=== PATIENT | male | born 1955 | race Caucasian/White ===

== ENCOUNTER → 2020-05-23 00:15 | Outpatient (CLI) | payer MEDICARE, OTHER, SELFPAY ==
[2020-05-23 19:29] LABS: SARS-CoV-2 RNA PCR Negative
== END ==
PROVIDERS: PCP Internal Medicine; Visit Provider Plastic Surgery
DX: Z01.812 Encounter for preprocedural laboratory examination (principal); Z20.822 Contact with and (suspected) exposure to COVID-19
CPT/HCPCS: C9803; U0003; U0005

== ENCOUNTER 2020-05-26 01:44 | Day surgery (SDC) | payer MEDICARE, OTHER, SELFPAY ==
--- NOTE | 2020-05-26 07:17 | WPDHPUPDATE1 ---
History and Physical Update Update Date/Time: 05/26/20 07:17 History and Physical has been reviewed, including an updated exam of the patient. There are NO changes in the patient's condition. Risks, benefits, and alternatives have been discussed and questions answered. Patient agrees to proceed with procedure.
[2020-05-26] MEDS: LACTATED RINGERS 1,000 ML 30 ML IV CONT (09:25)
--- NOTE | 2020-05-26 09:28 | WPDANESEPPF ---
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 Patient Data Age: 64 Gender: M Height: 6 ft Weight: 67.2 kg Allergies Allergy/AdvReac Type Severity Reaction Status Date / Time No Known Allergies Allergy Verified 05/26/20 09:06 Home Medications Medication Instructions Recorded Confirmed Type aspirin [Adult Low Dose Aspirin] 81 mg PO DAILY 05/23/20 05/23/20 History cholecalciferol (vitamin D3) 125 mcg PO DAILY 05/23/20 05/23/20 History diazepam 10 mg PO QPM 05/23/20 05/23/20 History levothyroxine 25 mcg PO DAILY 05/23/20 05/23/20 History zolpidem 5 mg PO HS 05/23/20 05/23/20 History Patient hx anesthesia problems: none Family hx anesthesia problems: none PMFSH Past Medical History Medical History (Updated 05/26/20 @ 09:27 by Robbin Uribe MD) GERD (gastroesophageal reflux disease) Hypothyroid Surgical History Surgical History (Updated 05/26/20 @ 09:27 by Robbin Uribe MD) History of ear, nose, and throat (ENT) surgery Social History Social History (System 04/27/20 @ 12:48 by Mirtha Etienne) Smoking status: Never smoker Living arrangements: with family Spiritual care concerns: No Anes - Eval Final PreProcedure Day of Procedure 05/26/20 09:28 Patient weight: normal Heart: regular rate and rhythm Lungs: clear to auscultation Airway: Mallampati scale class III (hqd radiation to neck) Neurological: alert and oriented Last oral intake: >/= 8 hours ASA classification: III Emergent: no Anesthetic plan: proceed Anesthesia type and monitoring: general GIVS (may use LMA if needed) and standard monitoring Informed Consent: The patient's anesthetic plan and its attendant risks and benefits were discussed with the patient/family/POA. Questions were solicited and answers provided to the satisfaction of the patient/family/POA.
[2020-05-26 09:33] VITALS: BP 127/92; PULSE 93; TEMP 36.7; O2SAT 99
[2020-05-26] MEDS: LIDO 1%/EPINEPHRINE/PF 1:200,000 30 ML VIAL XX (10:21)
[2020-05-26] MEDS: BACITRACIN OP OINT 3.5 GM TUBE 1 APPLIC RIGHT EYE (10:22)
[2020-05-26 10:31] VITALS: BP 136/86; PULSE 76; RESP 14; O2SAT 96
--- NOTE | 2020-05-26 10:44 | PM.OP ---
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 Anesthesia: MAC Surgeon: Ashwin Porras MD Estimated blood loss (mL): 0 Drains: No Packing: No Pathology: yes Complications: No immediate complications Condition: stable Disposition: same day
--- NOTE | 2020-05-26 10:46 | PM.PROC ---
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 The patient was then taken to the operating room and placed supine on the operating table. A time-out was held and confirmed. He was given IV sedation and the face was prepped and draped in usual fashion. The site was then locally anesthetized with 1% lidocaine with epinephrine. With traction on the lower lid the lesion was excised through the full-thickness of skin crossing just to the mehta line.. The specimen was sent for permanent section. Couple of small points were cauterized with a setting of 15. The skin was closed with a running 5 0 fast-absorbing gut suture. The punctum was not directly involved in this procedure. The skin closure been the tarsal plate slightly. I believe this will resolve as the skin heals and stretches. Ophthalmic bacitracin ointment was applied the patient was awakened and discharged from the operating room stable condition. He is being discharged home with bacitracin ophthalmic ointment and a prescription for tramadol 50 mg 8. Surgeon: Ashwin Porras MD
[2020-05-26 11:01] VITALS: BP 130/87; PULSE 73; RESP 14; O2SAT 98
[2020-05-26 11:31] VITALS: BP 123/79; PULSE 79; RESP 14
[2020-05-26 11:45] VITALS: BP 132/80; PULSE 85; RESP 14
[2020-05-26] MEDS: oxyCODONE HCL (*CRX) 5 MG TAB IR PO (11:46)
== END 2020-05-26 11:55 | disposition home or self-care (01) ==
PROVIDERS: PCP Internal Medicine; Visit Provider Plastic Surgery
PROC: (CPT 11440; principal; 2020-05-26 10:30)
DX: L82.1 Other seborrheic keratosis (principal); K21.9 Gastro-esophageal reflux disease without esophagitis; E03.9 Hypothyroidism, unspecified; Z79.82 Long term (current) use of aspirin
CPT/HCPCS: 11440; 88304; A9270; J2250; J2370; J2704; J3010; J7120

== ENCOUNTER 2021-08-12 23:22 | Inpatient (IN) | payer MEDICARE, OTHER, SELFPAY ==
[2021-08-12] VITALS (7 sets, daily range): BP systolic 98–99; BP diastolic 59–60; PULSE 106–112; RESP 24–33; TEMP 39.6; O2SAT 84–91
--- NOTE | ~2021-08-12 | XR_ITS ---
EXAMINATION: XR chest 1V portable DATE: 08/25/2021 06:22 INDICATION: Respiratory failure TECHNIQUE: frontal view of the chest was obtained. COMPARISON: Chest radiograph and CT studies dated 08/24/2021 and 08/22/2021 FINDINGS: Endotracheal tube tip 7.2 cm above the doug. Left upper extremity peripherally inserted central joseline ous catheter (PICC) tip at the head superior vena cava. Diffuse increased interstitial and mild airspace opacities throughout both lungs with more dense opac ities with retrocardiac consolidation in the left lower lung zone. Small left pleural effusion with b lunting at the costophrenic angle. No pneumothorax or right-sided pleural effusion. The cardiomediast inal silhouette is normal. IMPRESSION: 1. Endotracheal tube tip 7.2 cm above the doug. Consider advancement by 5 cm. 2. Bilateral diffuse interstitial and airspace opacities which could represent pulmonary edema or pne umonia which is improved since 08/22/2021. 3. Small left pleural effusion with partial left lower lobar collapse. Reviewed, dictated and finalized at location A. IMPRESSION: 1. Endotracheal tube tip 7.2 cm above the doug. Consider advancement by 5 cm. 2. Bilateral diffuse interstitial and airspace opacities which could represent pulmonary edema or pneumonia which is improved since 08/22/2021. 3. Small left pleural effusion with partial left lower lobar collapse.
--- NOTE | ~2021-08-12 | XR_ITS ---
EXAMINATION: XR chest 1V portable DATE: 08/27/2021 05:59 INDICATION: Respiratory failure TECHNIQUE: frontal view of the chest was obtained. COMPARISON: Chest radiograph dated 08/26/2021 FINDINGS: Endotracheal tube tip 7.2 cm above the doug. Left upper extremity peripherally inserted central joseline ous catheter (PICC) tip at the mid superior vena cava. Slight improvement in the increased interstitial pattern predominantly in the lower lung zones. Hazy airspace opacity and retrocardiac consolidation at the left lower lung zone with indistinct diaphragm consistent with small left pleural effusion and associated atelectasis and/or pneumonia. The cardiom ediastinal silhouette is normal. Surgical clips at the right base of the neck. IMPRESSION: 1. Endotracheal tube tip 7.2 cm above the doug. Consider advancement by 5 cm. 2. Improving pulmonary interstitial edema now in the lower lung zones. 3. Small left pleural effusion with associated left basilar atelectasis and/or pneumonia. Reviewed, dictated and finalized at location A.
--- NOTE | ~2021-08-12 | XR_ITS ---
EXAMINATION: XR chest 1V portable INDICATION: Respiratory failure TECHNIQUE: Portable AP chest at 0934 hours COMPARISON: 0107 hours FINDINGS: Patchy opacities are now present in all lung zones,, worsened since the prior examination. No pleural effusion or pneumothorax. The cardiomediastinal silhouette is stable. Surgical clips are n oted in the neck. IMPRESSION: 1. Diffuse lung disease with interval worsening, consistent with pneumonia and/or pulmonary edema Reviewed, dictated and finalized at location A. IMPRESSION: 1. Diffuse lung disease with interval worsening, consistent with pneumonia and/ or pulmonary edema
--- NOTE | ~2021-08-12 | XR_ITS ---
XR chest 2V DATE: 09/02/2021 09:33 INDICATION: Diffuse lung crackles TECHNIQUE: AP and lateral views COMPARISON: 08/31/2021 portable AP chest FINDINGS: Prominent patchy consolidating left lower lobe infiltrate with air bronchograms. Mild patchy infiltrate in the right lower lung. Bilateral hyperinflation consistent with COPD. Heart size is within normal range. Small left pleural effusion. No pneumothorax. Surgical clips overlie the lower right and left cervical region. Osteopenia. Left upper extremity PIC catheter tip overlies the superior vena cava. IMPRESSION: Prominent patchy consolidating left lower lobe infiltrate and mild right lower lung infil trate COPD Left upper extremity PIC catheter in superior vena cava Reviewed, dictated and finalized at location A. IMPRESSION: Prominent patchy consolidating left lower lobe infiltrate and mild right lower lung infiltrate COPD Left upper extremity PIC catheter in superior vena cava
--- NOTE | ~2021-08-12 | XR_ITS ---
EXAMINATION: XR abdomen obstructive series DATE: 08/16/2021 10:52 INDICATION: Abdominal distention TECHNIQUE: Upright and supine views of the abdomen were obtained. COMPARISON: 08/13/2021 FINDINGS: The tip of the nasogastric tube is in the stomach. The proximal side port is near the gastr oesophageal junction. There is mild gaseous distention of the ascending and proximal transverse colon . Gas and stool are seen in the rectum. No free intraperitoneal gas is identified. A gastrostomy is n oted. There are diffuse opacities throughout the visualized lungs. IMPRESSION: 1. Mild gaseous distention of the ascending and transverse colon, likely ileus. 2. Tip of the nasogastric tube in the stomach with proximal side port at the gastroesophageal junctio n. Consider advancing 2 to 3 cm. 3. Diffuse lung disease, consistent with pneumonia and/or pulmonary edema. Reviewed, dictated and finalized at location A. IMPRESSION: 1. Mild gaseous distention of the ascending and transverse colon, likely ileus. 2. Tip of the nasogastric tube in the stomach with proximal side port at the ga stroesophageal junction. Consider advancing 2 to 3 cm. 3. Diffuse lung disease, consistent with pneumonia and/or pulmonary edema.
--- NOTE | ~2021-08-12 | XR_ITS ---
EXAMINATION: XR chest 1V portable DATE: 08/15/2021 06:08 INDICATION: Respiratory failure TECHNIQUE: frontal view of the chest was obtained. COMPARISON: Chest radiograph and CT dated 08/14/2021 FINDINGS: Endotracheal tube tip 5.5 cm above the doug. Nasogastric tube with proximal side-port below level of the gastroesophageal junction with distal tip collimated off the study. Persistent diffuse patchy bilateral lung disease relatively unchanged accounting for differences in p ositioning in the left lung are relatively spares the apex. On the right there appears to be some coa lescence and increased density of the consolidation in the right mid to upper lung zones. No pneumoth orax or definitive pleural effusion. Heart size is normal. IMPRESSION: 1. Extensive diffuse bilateral lung disease concerning for multifocal pneumonia with some interval pr ogression in the right mid and upper lung zones. Reviewed, dictated and finalized at location A. IMPRESSION: 1. Extensive diffuse bilateral lung disease concerning for multifocal pneumonia with some interval progression in the right mid and upper lung zones.
--- NOTE | ~2021-08-12 | XR_ITS ---
EXAMINATION: XR chest 1V portable DATE: 08/26/2021 05:53 INDICATION: Respiratory failure TECHNIQUE: frontal view of the chest was obtained. COMPARISON: Chest radiograph dated 08/25/2021 FINDINGS: Endotracheal tube tip 6.5 cm above the doug. Left upper extremity peripherally inserted central joseline ous catheter (PICC) tip at the mid superior vena cava. No significant interval change in interstitial and airspace opacities in the bilateral mid and lower lung zones. 20 of the left costophrenic angle consistent with small left pleural effusion. No pneumot horax. The cardiomediastinal silhouette is normal. IMPRESSION: 1. Diffuse interstitial and mild airspace opacities throughout the bilateral mid and lower lung zones most likely from edema although differential includes pneumonia. 2. Small left pleural effusion. Reviewed, dictated and finalized at location A. IMPRESSION: 1. Diffuse interstitial and mild airspace opacities throughout the bilateral mi d and lower lung zones most likely from edema although differential includes pn eumonia. 2. Small left pleural effusion.
--- NOTE | ~2021-08-12 | XR_ITS ---
EXAMINATION: XR chest 1V portable DATE: 08/22/2021 05:39 INDICATION: Respiratory failure. Mechanical ventilation. TECHNIQUE: frontal view of the chest was obtained. COMPARISON: Chest radiograph dated 08/21/2021 FINDINGS: Endotracheal tube tip 6.0 cm above the doug. Left upper extremity peripherally inserted central joseline ous catheter (PICC) tip at the mid superior vena cava. Diffuse increased interstitial and patchy airspace opacities throughout both lungs relatively sparing the apices. No pleural effusion or pneumothorax. The cardiomediastinal silhouette is normal. IMPRESSION: 1. Persistent diffuse bilateral interstitial and airspace opacities which could represent pulmonary e mirza and/or pulmonary edema. Reviewed, dictated and finalized at location A. IMPRESSION: 1. Persistent diffuse bilateral interstitial and airspace opacities which could represent pulmonary edema and/or pulmonary edema.
--- NOTE | ~2021-08-12 | US_ITS ---
EXAMINATION: US venous doppler [facility] DATE: 08/18/2021 11:45 INDICATION: A. Fib. Fever. TECHNIQUE: Alvarez scale images with and without compression and Doppler images of the right and left up per extremity veins were obtained. COMPARISON: None. FINDINGS: The right and left internal jugular vein, subclavian vein, axillary vein, brachial veins, basilic vei n, cephalic vein, radial vein, and ulnar vein are patent. IMPRESSION: 1. Patent bilateral upper extremity veins. No evidence of deep venous thrombosis. Reviewed, dictated and finalized at location A. IMPRESSION: 1. Patent bilateral upper extremity veins. No evidence of deep venous thrombosi s.
--- NOTE | ~2021-08-12 | XR_ITS ---
XR chest 1V portable DATE: 08/18/2021 05:51 INDICATION: Respiratory failure TECHNIQUE: Portable AP chest on 08/18/2021 at 0511 hours COMPARISON: 08/17/2021 portable AP chest at 0515 hours FINDINGS: ET tube tip is 6.5 cm above doug. [place] range is 2 5 cm. NG tube in stomach. Left upper extremity PIC catheter tip overlies superior vena cava. Extensive patchy bilateral consolidating infiltrates persist without improvement since 08/17/2021. Dif ferential diagnosis includes pneumonia as well as pulmonary edema. Prominence of the minor fissure couch ggests mild subpleural edema. Small pleural effusions. No pneumothorax. IMPRESSION: ET tube tip 6.5 cm above doug; ideal range is 2 5 cm Persistent extensive patchy bilateral consolidating infiltrates, without improvement since 08/17/2021 Reviewed, dictated and finalized at location A. IMPRESSION: ET tube tip 6.5 cm above doug; ideal range is 2 5 cm Persistent extensive patchy bilateral consolidating infiltrates, without improv ement since 08/17/2021
--- NOTE | ~2021-08-12 | CT_ITS ---
EXAMINATION: CT chest abdomen pelvis wo con DATE: 08/13/2021 12:13 INDICATION: Sepsis respiratory failure . TECHNIQUE: Computed tomography (CT) of the chest, abdomen, and pelvis was performed without intraveno us contrast. Automated exposure control and iterative reconstruction technique were employed. The dos e-length product was 875.90 mGy-cm. COMPARISON: CT soft tissue neck, same date. FINDINGS: Lines and tubes: Endotracheal, nasogastric and enteric tubes and a Vanessa catheter are in good positio n. Thoracic aorta: No significant dilation or calcification. Lung parenchyma and airways: Diffuse groundglass and consolidative opacities. Thoracic inlet, axillae and chest wall: No thyroid or soft tissue mass. No axillary lymphadenopathy. Mediastinum: No mass or lymphadenopathy. Heart and pericardium: Normal heart size. No pericardial effusion. Mitral and aortic valve calcificat ion. Coronary artery calcifications: Moderate. Pleura: No effusion or mass. Thoracic bones: No acute osseous finding in the chest. Evaluation limited by motion artifact. ABDOMEN/PELVIS: Liver: Normal. Biliary/Gallbladder: Mildly dilated. No bile duct dilation. Pancreas: No mass or duct dilation. Spleen: Normal. Adrenals:Left adrenal is enlarged, without definite focal mass. Kidneys: No mass, obstructing stone, or hydronephrosis. GI tract: No small or large bowel dilation. Appendix not visualized. Diverticulosis without diverticu litis. Mesentery/Peritoneum: No ascites, mass, or free air. Retroperitoneum: No mass. Atherosclerotic abdominal aortic and/or arterial calcifications. Pelvis: Rectum is dilated by formed stool. Prostatomegaly. Bladder decompressed by Vanessa catheter. Soft Tissues: Soft tissue induration overlying the sacrum, otherwise the soft tissues and body wall u nremarkable. Abdominopelvic bones: No acute osseous finding in the abdomen/pelvis. IMPRESSION: Pulmonary findings may reflect pneumonia and/or pulmonary edema. Gallbladder hydrops, without obstruc ting stone or extrahepatic biliary duct dilation. Left adrenal enlargement, may be secondary to hyper plasia, mass cannot be excluded without contrast. Fecal impaction. Possible sacral decubitus ulcer. Reviewed, dictated and finalized at location K. IMPRESSION: Pulmonary findings may reflect pneumonia and/or pulmonary edema. Gallbladder hy drops, without obstructing stone or extrahepatic biliary duct dilation. Left ad renal enlargement, may be secondary to hyperplasia, mass cannot be excluded wit hout contrast. Fecal impaction. Possible sacral decubitus ulcer.
--- NOTE | ~2021-08-12 | XR_ITS ---
EXAMINATION: XR chest 1V portable INDICATION: Cough TECHNIQUE: Portable AP chest at 0107 hours COMPARISON: None available FINDINGS: There are airspace opacities of the mid and lower lung zones. No pleural effusion or pneumo thorax. The cardiomediastinal silhouette is normal. Surgical clips are noted in the right neck. IMPRESSION: 1. Airspace opacities of the mid and lower lung zones, consistent with pulmonary edema versus pneumon ia. Reviewed, dictated and finalized at location A. IMPRESSION: 1. Airspace opacities of the mid and lower lung zones, consistent with pulmonar y edema versus pneumonia.
--- NOTE | ~2021-08-12 | XR_ITS ---
EXAMINATION: XR chest 1V portable DATE: 08/23/2021 06:30 INDICATION: Respiratory failure. Mechanical ventilation. TECHNIQUE: frontal view of the chest was obtained. COMPARISON: Chest radiograph dated 08/22/2021 FINDINGS: Endotracheal tube tip 6.8 cm above the doug. Left upper extremity peripherally inserted central joseline ous catheter (PICC) tip at the caudal superior vena cava. Bilateral diffuse increased interstitial pattern in the mid and lower lung zones. Hazy airspace opaci ty left lower lung zone with retrocardiac consolidation. Mild patchy groundglass opacities in the med ial right lower lung zone. No pneumothorax or right-sided pleural effusion. The cardiomediastinal bo houette is normal. IMPRESSION: 1. Diffuse bilateral increased interstitial pattern sparing the upper lung zones consistent with mild interstitial pulmonary edema. 2. Persistent airspace opacities in the bilateral lower lung zones, left greater than right, which co uld represent atelectasis, more focal pulmonary alveolar edema, pneumonia or some combination thereof , possibly with small pleural effusion on the left. Reviewed, dictated and finalized at location A. IMPRESSION: 1. Diffuse bilateral increased interstitial pattern sparing the upper lung zone s consistent with mild interstitial pulmonary edema. 2. Persistent airspace opacities in the bilateral lower lung zones, left greate r than right, which could represent atelectasis, more focal pulmonary alveolar edema, pneumonia or some combination thereof, possibly with small pleural effus ion on the left.
--- NOTE | ~2021-08-12 | XR_ITS ---
EXAMINATION: XR chest 1V portable DATE: 08/31/2021 05:52 INDICATION: Pneumonia. TECHNIQUE: A single frontal view of the chest was obtained. COMPARISON: Chest single view 08/28/2021, chest CT 08/24/2021 FINDINGS: There are scattered nodules throughout the lungs. There are patchy airspace opacities in th e mid and lower lung zones, worst in left lower lobe. There is a small left pleural effusion. No pneu mothorax. The heart size is normal. A left upper extremity peripherally inserted central venous ava ter (PICC) is seen with tip in the superior vena cava. IMPRESSION: 1. Stable diffuse lung disease, consistent with pneumonia. 2. Stable small left pleural effusion. Reviewed, dictated and finalized at location A.
--- NOTE | ~2021-08-12 | XR_ITS ---
EXAMINATION: XR chest 1V portable DATE: 08/16/2021 05:29 INDICATION: Respiratory failure TECHNIQUE: frontal view of the chest was obtained. COMPARISON: Chest radiograph dated 08/15/21 FINDINGS: Endotracheal tube tip 6.4 cm above the doug. Nasogastric tube with proximal side-port below level o f the gastroesophageal junction with distal tip collimated off the study. Left upper extremity periph erally inserted central venous catheter (PICC) tip at the caudal superior vena cava. No significant interval change in diffuse patchy bilateral airspace opacities. No pneumothorax or def initive pleural effusion. Heart size is normal. A few surgical clips in the right supraclavicular reg ion. IMPRESSION: 1. No significant change in extensive diffuse bilateral lung disease which could represent pneumonia, pulmonary edema or combination thereof. Reviewed, dictated and finalized at location A. IMPRESSION: 1. No significant change in extensive diffuse bilateral lung disease which coul d represent pneumonia, pulmonary edema or combination thereof.
--- NOTE | ~2021-08-12 | CT_ITS ---
EXAMINATION: CT sinus wo con DATE: 08/24/2021 13:13 INDICATION: Fever. Altered mental status. TECHNIQUE: Computed tomography (CT) of the paranasal sinuses was performed without intravenous contra st. The dose-length product was 304.88 mGy-cm. Automated exposure control and iterative reconstructio n technique were employed. COMPARISON: CT dated 08/13/2021 FINDINGS: There is mucosal thickening of the right maxillary sinus. There is mucosal thickening of th e ethmoid air cells. There are small mastoid effusions. No significant nasal septal deviation. Ostiom eatal units are patent. There is mild right sphenoid sinus mucosal thickening. IMPRESSION: 1. Mild sinus disease of the right maxillary, ethmoid and sphenoid sinuses. Reviewed, dictated and finalized at location A.
--- NOTE | ~2021-08-12 | CT_ITS ---
EXAMINATION: CT brain wo con DATE: 08/13/2021 12:14 INDICATION: Altered mental status . TECHNIQUE: Computed tomography (CT) of the head was performed without intravenous contrast. The mA wa s adjusted according to patient size. Iterative reconstruction technique was employed. The dose-lengt h product was 605.33 mGy-cm. COMPARISON: None FINDINGS: No acute intracranial hemorrhage or extra-axial fluid collection. No hydrocephalus, mass, or herniation. No acute ischemic infarct. Unremarkable dural venous sinus attenuation. No acute osseous abnormality. The aerated spaces are clear. Mild atrophy and chronic white matter change. Atherosclerotic intracranial arterial calcifications. IMPRESSION: No acute intracranial process. Reviewed, dictated and finalized at location K.
--- NOTE | ~2021-08-12 | XR_ITS ---
EXAMINATION: XR chest ET placement INDICATION: Respiratory failure TECHNIQUE: Portable AP chest at 1033 hours COMPARISON: 0934 hours FINDINGS: An endotracheal tube has been inserted which ends 4.2 cm above the doug. Diffuse opacitie s persist throughout all lung zones without significant change. No pleural effusion or pneumothorax. The cardiomediastinal silhouette is stable. Surgical clips are noted in the neck. IMPRESSION: 1. Diffuse lung disease without significant change. Endotracheal tube in adequate position. Reviewed, dictated and finalized at location A. IMPRESSION: 1. Diffuse lung disease without significant change. Endotracheal tube in adequa te position.
--- NOTE | ~2021-08-12 | XR_ITS ---
EXAMINATION: XR chest 1V portable DATE: 08/24/2021 05:34 INDICATION: Respiratory failure. Mechanical ventilation. TECHNIQUE: frontal view of the chest was obtained. COMPARISON: Chest radiograph dated 08/23/2021 FINDINGS: Endotracheal tube tip at the thoracic inlet, 9.1 cm above the doug. Left upper extremity peripheral ly inserted central venous catheter (PICC) tip at the mid superior vena cava. Again seen are interstitial and airspace opacities in the bilateral mid and lower lung zones. More de nse retrocardiac consolidation the left lower lung zone. Small left pleural effusion with blunting at the costophrenic angle. No pneumothorax or right-sided pleural effusion. The cardiomediastinal silho uette is normal. IMPRESSION: 1. Endotracheal tube tip 9.1 cm above the doug. Recommend advancement by 6-7 cm. 2. Interstitial and airspace opacities in the bilateral mid and lower lung zones consistent with mild pulmonary edema. 3. Small left pleural effusion with retrocardiac consolidation which could represent atelectasis or p neumonia. Reviewed, dictated and finalized at location A. IMPRESSION: 1. Endotracheal tube tip 9.1 cm above the doug. Recommend advancement by 6-7 cm. 2. Interstitial and airspace opacities in the bilateral mid and lower lung zone s consistent with mild pulmonary edema. 3. Small left pleural effusion with retrocardiac consolidation which could repr esent atelectasis or pneumonia.
--- NOTE | ~2021-08-12 | US_ITS ---
EXAMINATION: US venous doppler [facility] DATE: 08/14/2021 15:01 INDICATION: Respiratory failure TECHNIQUE: Alvarez scale images without and with compression and Doppler images of the bilateral lower e xtremity veins were obtained. COMPARISON: None FINDINGS: The right common femoral vein, profunda femoral vein, femoral vein, popliteal vein, peroneal trunk, p osterior tibial veins, and greater saphenous vein are patent. The left common femoral vein, profunda femoral vein, femoral vein, popliteal vein, peroneal trunk, po sterior tibial veins, and greater saphenous vein are patent. IMPRESSION: 1. Patent bilateral lower extremity veins. No evidence of deep venous thrombosis. Reviewed, dictated and finalized at location A. IMPRESSION: 1. Patent bilateral lower extremity veins. No evidence of deep venous thrombosi s.
--- NOTE | ~2021-08-12 | XR_ITS ---
EXAMINATION: XR G tube evaluation w imaging INDICATION: G-tube placement TECHNIQUE: Supine AP view COMPARISON: 0807 hours FINDINGS: A nasogastric tube is in the stomach. A gastrostomy tube is opacified and within the stomac h. The bowel gas pattern is normal. There are airspace opacities of the visualized lung bases. IMPRESSION: 1. Gastrostomy tube in the stomach. Reviewed, dictated and finalized at location F.
--- NOTE | ~2021-08-12 | US_ITS ---
EXAMINATION:US venous doppler LE INDICATION:Fever. Atrial fibrillation. TECHNIQUE: Multiple grayscale, color flow and Doppler images of the right and left lower extremity de ep venous systems were obtained and reviewed. COMPARISON:Ultrasound dated 08/14/2021 FINDINGS: The common femoral, superficial femoral and popliteal veins demonstrate normal respiratory variation, augmentation and compressibility. Color flow is also seen within the posterior tibial, pe roneal, greater saphenous and profunda veins. IMPRESSION: 1: No lower extremity deep venous thrombosis. Reviewed, dictated and finalized at location A.
--- NOTE | ~2021-08-12 | XR_ITS ---
XR chest 1V portable DATE: 08/21/2021 05:49 INDICATION: Cough. Sore throat. Fever. TECHNIQUE: Portable AP views on 08/2021 at 0507 hours COMPARISON: 08/20/2021 portable AP chest at 0513 hours FINDINGS: ET tube tip 5.7 cm above doug. [place] range is minimal T2-5 centimeters. Left upper extremity PIC catheter in superior vena cava. Bilateral hyperinflation suggesting COPD. There are diffuse bilateral pulmonary infiltrates, relative ly stable since 09/06/2021, consistent with pulmonary edema, pneumonia and/or ARDS. No pleural effusio n or pneumothorax is evident. Osteopenia. IMPRESSION: Persistent extensive diffuse bilateral pulmonary infiltrates, relatively stable since 08/20 Reviewed, dictated and finalized at location A. IMPRESSION: Persistent extensive diffuse bilateral pulmonary infiltrates, relat ively stable since 08/21/2019
--- NOTE | ~2021-08-12 | CT_ITS ---
EXAMINATION: CTA chest PE protocol DATE: 08/14/2021 13:42 INDICATION: Respiratory failure. Aspiration. Pneumonia. History of throat cancer. TECHNIQUE: Computed tomography angiography (CTA) of the chest was performed with 100 mL Omnipaque-350 intravenous contrast timed to evaluate the pulmonary arteries. Coronal maximum intensity projection 3D-reconstructions were created by the technologist. Automated exposure control and iterative reconst ruction technique were employed. Exam dose: 686.42 mGy-cm total exam DLP. COMPARISON: 08/14/2021 portable AP chest 08/[address] chest abdomen pelvis FINDINGS: There is diagnostic contrast enhancement of the pulmonary arteries and no evidence of pulmo nary embolism. Heart size is normal. There is coronary artery calcification. No pericardial effusion. No thoracic ao rtic aneurysm. ET tube in satisfactory position. NG tube in stomach. There appears to be a gastrostomy tube on the l owermost images. There is extensive patchy consolidation throughout the lungs, most severe in the left lower lobe with extensive left lower lobe air bronchograms, consistent with extensive bilateral pneumonia. Osteopenia. IMPRESSION: Extensive bilateral pneumonia, greatest in the left lower lobe No evidence of pulmonary embolism Reviewed, dictated and finalized at Location A. Reviewed, dictated and finalized at location B.
--- NOTE | ~2021-08-12 | XR_ITS ---
EXAMINATION: XR chest 1V portable DATE: 08/28/2021 05:51 INDICATION: Respiratory failure. TECHNIQUE: A single frontal view of the chest was obtained. COMPARISON: Chest single view 08/27/2021, chest CT 08/24/2021 FINDINGS: There are airspace opacities in the mid and lower lung zones. There is a small left pleural effusion. No pneumothorax. The heart size is normal. A left upper extremity peripherally inserted ce ntral venous catheter (PICC) is seen with tip in the superior vena cava. IMPRESSION: 1. Stable airspace opacities in the mid and lower lung zones, consistent with pneumonia. 2. Stable small left pleural effusion. Reviewed, dictated and finalized at location A. IMPRESSION: 1. Stable airspace opacities in the mid and lower lung zones, consistent with p neumonia. 2. Stable small left pleural effusion.
--- NOTE | ~2021-08-12 | XR_ITS ---
XR chest 1V portable DATE: 08/20/2021 05:50 INDICATION: Respiratory failure TECHNIQUE: Portable AP chest on 08/20/2021 at 0513 hours COMPARISON: 08/18/2021 portable AP chest at 0 511 hours FINDINGS: ET tube 6 cm above doug. Left upper extremity PIC catheter overlies superior vena cava. Diffuse patchy bilateral pulmonary infiltrates, most prominent in the mid and lower lung zones. There is diminished consolidation bilaterally since 08/18/2021. Bilateral hyperinflation. No significant pleural fluid accumulation is noted. No pneumothorax. Heart size is normal. IMPRESSION: Extensive bilateral pulmonary infiltrates involving particularly the mid and lower lung z ones, but with improvement of the degree of consolidation since 08/18/2021 Reviewed, dictated and finalized at location A. IMPRESSION: Extensive bilateral pulmonary infiltrates involving particularly th e mid and lower lung zones, but with improvement of the degree of consolidation since 08/18/2021
--- NOTE | ~2021-08-12 | XR_ITS ---
EXAMINATION: XR chest 1V portable DATE: 08/17/2021 06:03 INDICATION: Respiratory failure TECHNIQUE: frontal view of the chest was obtained. COMPARISON: Chest radiograph dated 08/16/2021 FINDINGS: Endotracheal tube tip 6.7 cm above the doug. Nasogastric tube with proximal side-port in the proxim al body of the stomach and distal tip collimated below the inferior margin of the [id number]. Righ t upper extremity peripherally inserted central venous catheter (PICC) tip at the caudal superior ve na cava. [place] projects along the lateral right mid to lower lung zone. Persistent extensive scattered patc hy bilateral airspace opacities most prominent in the bilateral mid lung zones. No pleural effusion o r pneumothorax. The cardiomediastinal silhouette is normal. IMPRESSION: 1. Endotracheal tube tip 6.7 cm above the doug. Consider advancement by 4.5 cm. 2. Persistent extensive patchy bilateral lung disease most likely multifocal pneumonia with different ial including pulmonary edema. Reviewed, dictated and finalized at location A. IMPRESSION: 1. Endotracheal tube tip 6.7 cm above the doug. Consider advancement by 4.5 c m. 2. Persistent extensive patchy bilateral lung disease most likely multifocal pn eumonia with differential including pulmonary edema.
--- NOTE | ~2021-08-12 | XR_ITS ---
XR abdomen obstructive series DATE: 08/17/2021 08:23 INDICATION: Ileus TECHNIQUE: 2 portable supine AP views on 08/17/2021 at 0807 and 0809 hours COMPARISON: 08/16/2021 KUB FINDINGS: The nasogastric tube is been advanced since 08/16/2021, the proximal side-port now approxima tely 7 cm beyond the diaphragmatic hiatus. There is diagnostic material in the rectosigmoid area. Gastrostomy tube overlies the left upper quadrant. No bowel dilatation or obstruction is evident. Extensive patchy bilateral pulmonary infiltrates are again noted. IMPRESSION: NG tube in satisfactory position Nonspecific abdomen Diffuse patchy bilateral pulmonary infiltrates suggesting bilateral pneumonia most likely. Reviewed, dictated and finalized at Location A. Reviewed, dictated and finalized at location B. IMPRESSION: NG tube in satisfactory position Nonspecific abdomen Diffuse patchy bilateral pulmonary infiltrates suggesting bilateral pneumonia m ost likely.
--- NOTE | ~2021-08-12 | XR_ITS ---
EXAMINATION: XR abdomen NG/feed tube insert INDICATION: Nasogastric tube insertion TECHNIQUE: Portable AP KUB-NG at 1132 hours COMPARISON: None available FINDINGS: The tip of the nasogastric tube is in the stomach. The proximal side port is near the gastr oesophageal junction. Tube can be safely advanced 3 to 4 cm. There are diffuse opacities throughout t he visualized lungs. IMPRESSION: 1. Tip of the nasogastric tube in the stomach with proximal side port near the gastroesophageal junct ion. Recommend advancing 3 to 4 cm. Reviewed, dictated and finalized at location A. IMPRESSION: 1. Tip of the nasogastric tube in the stomach with proximal side port near the gastroesophageal junction. Recommend advancing 3 to 4 cm.
--- NOTE | ~2021-08-12 | XR_ITS ---
EXAMINATION: XR chest 1V portable DATE: 08/14/2021 05:49 INDICATION: Respiratory failure TECHNIQUE: frontal view of the chest was obtained. COMPARISON: Chest radiograph dated 08/13/2021 FINDINGS: Endotracheal tube tip 3.4 cm above the doug. Nasogastric tube extends below the left hemidiaphragm with distal tip collimated off the study. Again seen are patchy bilateral airspace opacities throughout both lungs. No pneumothorax or definiti ve pleural effusion. The cardiomediastinal silhouette is normal. IMPRESSION: 1. No significant change in diffuse bilateral lung disease which could represent pneumonia or moderat e pulmonary edema. Reviewed, dictated and finalized at location A. IMPRESSION: 1. No significant change in diffuse bilateral lung disease which could represen t pneumonia or moderate pulmonary edema.
--- NOTE | ~2021-08-12 | CT_ITS ---
EXAMINATION: CT diagnostic chest wo con DATE: 08/24/2021 13:13 INDICATION: Fever TECHNIQUE: Computed tomography (CT) of the chest was performed without intravenous contrast. The dose -length product (DLP) was 360.25 mGy-cm. Automated exposure control and iterative reconstruction tech nique were employed. COMPARISON: 08/14/2021 FINDINGS: There are widespread nodular airspace opacities throughout the lungs, worst in the lower lo bes, which overall demonstrate improvement. There is persistent near complete left lower lobe collaps e. A few bilateral pulmonary nodules are present which are indeterminate on a background of resolving infection. There is a small left pleural effusion. No pneumothorax is identified. Mediastinal and bi lateral hilar lymphadenopathy is unchanged. The heart size is normal. A small pericardial effusion is present. There is calcified coronary artery atherosclerosis. There is mild thoracic spondylosis. The re is scarring in the upper pole of the left kidney. A gastrostomy is noted. IMPRESSION: 1. Diffuse lung disease with overall improvement, consistent with resolving infection an/or pulmonary edema. 2. Persistent near complete collapse of the left lower lobe. 3. Scattered indeterminate pulmonary nodules which could reflect resolving infection. Follow-up CT af ter resolution of pneumonia is recommended. 4. Mediastinal and bilateral hilar lymphadenopathy, likely reactive. Reviewed, dictated and finalized at location B. IMPRESSION: 1. Diffuse lung disease with overall improvement, consistent with resolving inf ection an/or pulmonary edema. 2. Persistent near complete collapse of the left lower lobe. 3. Scattered indeterminate pulmonary nodules which could reflect resolving infe ction. Follow-up CT after resolution of pneumonia is recommended. 4. Mediastinal and bilateral hilar lymphadenopathy, likely reactive.
--- NOTE | ~2021-08-12 | CT_ITS ---
EXAMINATION: CT soft tissue neck wo con DATE: 08/13/2021 12:14 INDICATION: Sepsis, history of throat cancer TECHNIQUE: Computed tomography (CT) of the neck was performed without intravenous contrast. The dose- length product (DLP) was 559.98 mGy-cm. Automated exposure control and iterative reconstruction techn ique were employed. COMPARISON: None FINDINGS: Sensitivity for findings related to throat cancer is limited by the absence of intravenous contrast. Surgical clips in the neck are consistent with cervical lymph node dissection. No definite soft tissue mass is identified. The endotracheal tube ends approximately 3 cm above the doug. A noy ogastric tube is noted. There are diffuse airspace and groundglass opacities throughout the visualize d lungs. Small pleural effusions are present. IMPRESSION: 1. No specific findings related to patient's history of throat cancer are identified, sensitivity [place] ited by the absence of intravenous contrast. 2. Widespread airspace and groundglass opacities of the visualized lungs, consistent with pneumonia a nd/or pulmonary edema. Reviewed, dictated and finalized at location A. IMPRESSION: 1. No specific findings related to patient's history of throat cancer are ident ified, sensitivity limited by the absence of intravenous contrast. 2. Widespread airspace and groundglass opacities of the visualized lungs, consi stent with pneumonia and/or pulmonary edema.
--- NOTE | 2021-08-12 23:42 | PC.NURSE ---
ED respiratory made aware of pt. Pt was at 88% on Non-rebreather upon arrival.
[2021-08-12] MEDS: IPRATROPIUM BR 0.02% INH SOLN 0.5 MG/2.5 ML VIAL INHALATION (23:55)
[2021-08-12] MEDS: ALBUTEROL SULFATE NEB 2.5 MG/3 ML INH 5 MG INHALATION (23:55)
--- NOTE | 2021-08-12 23:55 | ECG_ITS ---
Measurements Intervals [place] Rate: 105 P: 54 TX: 139 QRS: -28 QRSD: 90 T: 61 QT: 340 QTc: 449 Interpretive Statements SINUS TACHYCARDIA WITH FREQUENT ECTOPIC PREMATURE COMPLEXES LEFT AXIS DEVIATION [QRS AXIS < -20] ABNORMAL RHYTHM ECG NO PREVIOUS ECG AVAILABLE FOR COMPARISON Electronically Signed On 08-13-2021 7:16:15 CDT by Ozzy Mehta M.D.
[2021-08-13] VITALS (74 sets, daily range): BP systolic 62–193; BP diastolic 43–115; PULSE 97–133; RESP 12–36; TEMP 37.2–39.3; O2SAT 73–100; BMI 20.3
[2021-08-13 00:16] LABS: Alveolar/Arterial O2 Gradient 487.5 mmHg; Base Excess ABG 2.9 mEq/l (+/-2.0); Fractional Inspired Oxygen 80 %; HCO3 ABG 26.1 mEq/l (22.0-26.0); Oxygen Content ABG 18.2 %vol (16.0-22.0); PCO2 ABG 35.7 mmHg (35.0-45.0); PO2 FiO2 Ratio Arterial Blood 0.57 %; Total Hemoglobin 15.2 g/dL (12.0-18.0); pH ABG 7.482 (7.350-7.450)
[2021-08-13 00:27] LABS: Hematocrit 45.9 % (42.0-52.0); Hemoglobin 14.9 g/dL (14.0-18.0); Lymphocytes Absolute Auto 0.18 K/mm3 (0.9-3.2); Mean Corpuscular HGB Conc 32.5 g/dl (32-36); Mean Corpuscular Hemoglobin 31.8 pg (26-34); Mean Corpuscular Volume 97.9 fl (80-100); Mean Platelet Volume 12.6 fl (7.4-10.4); Monocytes Percent Auto 2.3 % (2.6-8.5); Neutrophils Absolute Auto 1.1 K/mm3 (1.3-6.7); Neutrophils Percent Auto 83.7 % (45.5-73.1); Platelet Count Result 111 k/mm3 (150-375); Red Blood Count 4.69 M/mm3 (4.6-6.20); Red Cell Distribution Width 13.5 % (11.5-14.5)
[2021-08-13 00:27] LABS: PO2 ABG 45.4 mmHg (80.0-100.0)
[2021-08-13 00:29] LABS: Oxygen Saturation ABG 84.9 % (95.0-100.0)
[2021-08-13 00:30] LABS: Modified Allen's Test Pass; Oxyhemoglobin 85.4 % THb (90.0-100.0); Site Drawn RIGHT RADIAL
[2021-08-13 00:31] LABS: Device OTHER DEVICE
[2021-08-13] MEDS: SODIUM CHLORIDE 0.9% IV 1,000 ML 999 ML IV CONT ×2 (00:33)
[2021-08-13 00:38] LABS: Alanine Aminotransferase 19 U/L (6-50); Albumin Level 3.9 g/dL (3.5-5.1); Alkaline Phosphatase 76 U/L (38-126); Anion Gap 6 mmol/L (8-16); Aspartate Amino Transferase 35 U/L (17-59); Bilirubin,Total 0.7 mg/dL (0.2-1.3); Blood Urea Nitrogen 33 mg/dL (9-20); Calcium 8.3 mg/dL (8.4-10.2); Carbon Dioxide 27 mmol/L (22-30); Chloride 102 mmol/L (98-107); Estimated CRCL calculation 70 ml/min; Estimated Glomerular Filt Rate > 60; Glucose 124 mg/dL (65-110); Magnesium 2.1 mg/dL (1.6-2.3); Potassium 4.1 mmol/L (3.4-5.0); Sodium 135 mmol/L (137-145)
[2021-08-13 00:40] LABS: INR 1.2; Partial Thromboplastin Time 32.6 SECONDS (22.3-36.8); Prothrombin Time 14.6 Seconds (11.1-14.7)
[2021-08-13 00:50] LABS: NT Pro B Type Natriuretic Pept 748 pg/mL (5-100); Troponin I 0.019 ng/mL (0.000-0.034)
[2021-08-13 00:52] LABS: White Blood Count 1.3 K/mm3 (4.5-10.0)
[2021-08-13 01:02] LABS: Influenza A QL RT-PCR Negative (Negative); Influenza B QL RT-PCR Negative (Negative); SARS-CoV-2 RNA PCR Negative
--- NOTE | 2021-08-13 02:00 | ED.GENADULT ---
HPI - General Adult General Chief complaint: Shortness of Breath/Dyspnea Stated complaint: generalized weakness sob Time Seen by Provider: 08/12/21 23:44 History of Present Illness HPI narrative: Patient is a 66-year-old gentleman who presents to the emergency department with chief complaint of shortness of breath. The family called EMS this evening after that he started having worsening shortness of breath at home. He noticed he had a fever and was extremely tachypneic. The patient has history of aspiration pneumonia in the past and also has potential for COVID exposure. History is limited due to decreased responsiveness. Related Data Home Medications Medication Instructions Recorded Confirmed aspirin 81 mg tablet 81 mg PO DAILY 05/23/20 05/26/20 cholecalciferol (vitamin D3) 125 125 mcg PO DAILY 05/23/20 05/26/20 mcg (5,000 unit) tablet diazepam 10 mg tablet 10 mg PO QPM MUSCLE SPASM 05/23/20 05/26/20 levothyroxine 25 mcg tablet 25 mcg PO DAILY 05/23/20 05/26/20 zolpidem 5 mg tablet 5 mg PO HS 05/23/20 05/26/20 Allergies Allergy/AdvReac Type Severity Reaction Status Date / Time No Known Allergies Allergy Verified 05/26/20 09:06 Review of Systems Review of Systems: A 10 system review of systems was completed on the patient and is negative except for what is stated in the HPI. Nursing and ancillary documentation was reviewed. [facility] Past Medical History Medical History GERD (gastroesophageal reflux disease) Hypothyroid Surgical History Surgical History History of ear, nose, and throat (ENT) surgery Social History Social History Smoking status: Never smoker Spiritual care concerns: No Course Course Emergency Course: Patient presented febrile tachycardic. The patient was started on empiric coverage for community-acquired pneumonia with Rocephin and Zithromax. The patient received fluid boluses the patient is currently normotensive but still tachycardic the patient has required initially significant oxygen support but transitioned over to BiPAP which has helped his oxygen status. The patient is COVID-negative currently Vital Signs Vital signs: Vital Signs Pulse Oximetry 87 L 08/12/21 23:25 Oxygen Delivery Non-Rebreather Mask 08/12/21 23:25 Oxygen Flow Rate 15 08/12/21 23:25 Temperature 39.3 C H 08/13/21 01:25 Pulse Rate 98 08/13/21 00:47 Respiratory Rate 27 H 08/13/21 00:47 Blood Pressure 114/71 08/13/21 00:47 Pulse Oximetry 96 08/13/21 00:49 Oxygen Delivery Non-Rebreather Mask 08/12/21 23:55 Oxygen Flow Rate 50 08/13/21 00:49 Fraction of Inspired Oxygen 55 08/13/21 00:49 Medical Decision Making Vital Signs Vital Signs: Vital Signs Pulse Oximetry 87 L 08/12/21 23:25 Oxygen Delivery Non-Rebreather Mask 08/12/21 23:25 Oxygen Flow Rate 15 08/12/21 23:25 Temperature 39.3 C H 08/13/21 01:25 Pulse Rate 98 08/13/21 00:47 Respiratory Rate 27 H 08/13/21 00:47 Blood Pressure 114/71 08/13/21 00:47 Pulse Oximetry 96 08/13/21 00:49 Oxygen Delivery Non-Rebreather Mask 08/12/21 23:55 Oxygen Flow Rate 50 08/13/21 00:49 Fraction of Inspired Oxygen 55 08/13/21 00:49 Lab Data Result diagrams: 08/13/21 00:16 08/13/21 00:16 Labs: Lab Results 08/13/21 08/13/21 08/13/21 Range/Units 00:16 00:16 00:16 WBC 1.3 L* (4.5-10.0) K/mm3 RBC 4.69 (4.6-6.20) M/mm3 Hgb 14.9 (14.0-18.0) g/dL Hct 45.9 (42.0-52.0) % MCV 97.9 (80-100) fl MCH 31.8 (26-34) pg MCHC 32.5 (32-36) g/dl RDW 13.5 (11.5-14.5) % Plt Count 111 L (150-375) k/mm3 MPV 12.6 H (7.4-10.4) fl Immature Gran % (Auto) 0.0 (0-0.5) % Neut % (Auto) 83.7 H (45.5-73.1) % Lymph % (Auto) 14.0 L (18.3
[2021-08-13 02:38] LABS: Appearance Urine Clear (Clear); Bilirubin Urine Negative (Negative); Color Urine Yellow (Yellow); Glucose Urine UA Negative (Negative); Ketones Urine Negative (Negative); Leukocyte Esterase Ur Negative LEU/UL (Negative); Nitrate Urine Negative (Negative); Protein Urine 2+ mg/dL (Negative); Urobilinogen Urine 0.2 mg/dL (<2.0)
[2021-08-13 02:44] LABS: Add Urine Microscopic? YES; Blood Urine Trace (Negative); Mucus Urine Few /lpf; WBC Urine 0-3 /hpf
[2021-08-13] MEDS: LORazepam INJ (*CRX) 2 MG/ML VIAL 0.5 MG IV PUSH (03:35)
--- NOTE | 2021-08-13 05:31 | ADMGEN ---
This patient, Mal Akhtar, was admitted to IMU Room 214-01 at 0532. Patient/family oriented to hospital policies and general routines including ID bracelet, bed and alarms, visiting hours, pain management, procedures, bathroom and other care routines, personal items, smoking policy, room service/diet, and visiting hours. Information on how to activate the Rapid Response Team has been discussed. Patient/Family are encouraged to report perceived risks to care and to ask questions if they do not understand what they are told or what they should do.
[2021-08-13 06:07] LABS: Alveolar/Arterial O2 Gradient 619.5 mmHg; Base Excess ABG -4.9 mEq/l (+/-2.0); Carboxyhemoglobin 0.3 % THb (0-2.0); Fractional Inspired Oxygen 100 %; HCO3 ABG 18.8 mEq/l (22.0-26.0); Methemoglobin ABG 0.6 %THb (0-1.5); Oxygen Content ABG 19.5 %vol (16.0-22.0); Oxygen Saturation ABG 91.8 % (95.0-100.0); Oxyhemoglobin 91.2 % THb (90.0-100.0); PCO2 ABG 31.8 mmHg (35.0-45.0); PO2 ABG 61.7 mmHg (80.0-100.0); PO2 FiO2 Ratio Arterial Blood 0.62 %; Reduced Hemoglobin 7.9 %THb (0-5.0); Total Hemoglobin 15.2 g/dL (12.0-18.0)
[2021-08-13 06:08] LABS: Site Drawn RIGHT RADIAL
[2021-08-13 06:09] LABS: Device BIPAP; Modified Allen's Test Pass
[2021-08-13 06:10] LABS: Expiratory Pressure 6 cmH2O; Inspiratory Pressure 16 cmH2O
[2021-08-13] MEDS: LORazepam INJ (*CRX) 2 MG/ML VIAL 1 MG IV PUSH (06:56)
[2021-08-13] MEDS: MORPHINE SULFATE (*CRX) 2 MG/ML INJ 1 MG IV PUSH (06:57)
[2021-08-13] MEDS: ALBUTEROL SULFATE NEB 2.5 MG/3 ML INH 5 MG INHALATION ×3 (07:58→19:46)
[2021-08-13] MEDS: IPRATROPIUM BR 0.02% INH SOLN 0.5 MG/2.5 ML VIAL INHALATION ×3 (07:59→19:46)
--- NOTE | 2021-08-13 08:48 | PM.IMHP ---
H&P: HPI History of Present Illness Date/Time: 08/13/21 08:48 Chief Complaint: Shortness of breath Narrative: 66yo male with hx of throat cancer s/p GTube, aspiration PNA, hypothyroidism, BPH and GERD who presents with complaints of SOB. Patient is somnolent but arouses easily. He is hypotensive. History difficult to obtain. He complains of a headache but no neck stiffness. He denies chest pain or abdominal pain. He does complain of back pain. He nods off frequently. He had throat cancer in the past but no recent treatment. Last treatment was about 5 years ago. On chart review, patient was having worsening SOB at home and family called EMS. Spoke with family. Throat CA 5 years ago treated with surgery and XRT but no chemo. Did have partial tongue resection and jugular vein. This resulted in dysphagia and aspiration PNA. Does have dysphasia as well. Tube feeding at isosource 1.5 avelina with 6 bottles per day (250ml). He does not eat orally due to aspiration. About 2 month ago, he has been getting weaker to the point he needs a walker. He was also having tingling in his hands bilaterally since the radiation but worsening. But leg weakness past few months. Being followed by neurology. There was discussion about cervical spine surgery. About 3 weeks ago, he did fell backward hitting the back of the head. No LOC. He did not seek medical care. He had a hx of spina bifida as a child requiring surgery. He has a hx of 'bladder issues' requiring frequent voiding and urgency. Two nights he had a fever. with recent cold symptoms. He has chronic phlem production but not increased. He did develop a cough. Weakness became more acute. No other complaints per . Taking Tylenol with benefits. Continued to have fever and weakness so EMS called. In the ED, he was noted to be tachypneic and febrile. He also had decreased responsiveness. patient also noted to be hypotensive in the ED with blood pressure 85/54. He noted to be leukopenic. Is treated with nebulizer treatments, IV fluids, antibiotics, and Ativan. since admission he has received Ativan and morphine. He was admitted to IMU on BiPAP. Called this morning that BP was 74/43 and fluid bolus ordered. He did not receive IV fluids overnight. He was moved to ICU. Family notified. Review of Systems Review of Systems: ROS unobtainable: Yes unobtainable due to mental status PMFSH Past Medical History Medical History Cervical spine disease Gastrostomy tube dependent GERD (gastroesophageal reflux disease) History of throat cancer XRT and surgery Hypothyroid Spina bifida as a child with surgery; residual 'bladder issues' Surgical History Surgical History History of ear, nose, and throat (ENT) surgery Family History Family History Mother Colon cancer Social History Social History Social History: Lives at home with . Never smoked. No alcohol and drug use. Full code. would be the Individual would make medical decisions for him if he is unable Smoking status: Never smoker Alcohol intake: unknown Substance use: never Substance use type: does not use Spiritual care concerns: No Meds Home Medications and Allergies Home Medications Medication Instructions Recorded Confirmed Type diazepam 10 mg tablet 10 mg feeding tube QPM MUSCLE SPASM 05/23/20 08/13/21 History levothyroxine 25 mcg tablet 25 mcg feeding tube DAILY 05/23/20 08/13/21 History finasteride 5 mg tablet 1 tablet feeding tube DAILY 08/13/21 08/13/21 History Allergies Allergy/AdvReac Type Severity Reaction Status Date / Time No Known Allergies Allergy Verified 05/26/20 09:06 Vital Signs Vital Signs - 24 hr 08/12/21 23:25 08/12/21 23:30 08/12/21 23:30 Temperature 103.3 F H Pulse Rate 106
[2021-08-13 09:28] LABS: Basophils Percent Auto 0.6 % (0.2-1.2); Hematocrit 43.1 % (42.0-52.0); Hemoglobin 13.4 g/dL (14.0-18.0); Immature Granulocyte Absolute 0.03 K/mm3 (0.00-0.031); Immature Granulocyte Percent A 1.9 % (0-0.5); Immature Platelet Fraction Pct 9.5 % (0.9-11.2); Lymphocytes Absolute Auto 0.31 K/mm3 (0.9-3.2); Lymphocytes Percent Auto 19.3 % (18.3-44.2); Mean Corpuscular HGB Conc 31.1 g/dl (32-36); Mean Corpuscular Volume 102.9 fl (80-100); Mean Platelet Volume 12.8 fl (7.4-10.4); Monocytes Absolute Auto 0.2 K/mm3 (0.1-0.6); Monocytes Percent Auto 11.2 % (2.6-8.5); Neutrophils Absolute Auto 1.1 K/mm3 (1.3-6.7); Platelet Count Result 76 k/mm3 (150-375); Red Blood Count 4.19 M/mm3 (4.6-6.20); Red Cell Distribution Width 13.8 % (11.5-14.5)
[2021-08-13] MEDS: SODIUM CHLORIDE 0.9% IV 1,000 ML 125 ML IV CONT ×3 (09:36→23:13)
[2021-08-13 09:44] LABS: Lactic Acid Reflex 5.3 mmol/L (0.7-2.0)
[2021-08-13 09:45] LABS: Alanine Aminotransferase 23 U/L (6-50); Albumin Level 2.6 g/dL (3.5-5.1); Alkaline Phosphatase 44 U/L (38-126); Anion Gap 8 mmol/L (8-16); Aspartate Amino Transferase 68 U/L (17-59); Bilirubin,Total 0.5 mg/dL (0.2-1.3); Blood Urea Nitrogen 34 mg/dL (9-20); Calcium 7.4 mg/dL (8.4-10.2); Carbon Dioxide 18 mmol/L (22-30); Chloride 109 mmol/L (98-107); Estimated CRCL calculation 55 ml/min; Estimated Glomerular Filt Rate > 60; Glucose 106 mg/dL (65-110); Phosphorus 2.6 mg/dL (2.5-4.5); Potassium 3.4 mmol/L (3.4-5.0); Sodium 135 mmol/L (137-145)
[2021-08-13 09:51] LABS: CRP 15.8 mg/dL (<1.0); Troponin I 0.076 ng/mL (0.000-0.034)
[2021-08-13 10:00] LABS: White Blood Count 1.6 K/mm3 (4.5-10.0)
[2021-08-13 10:29] LABS: Procalcitonin 91.4 ng/mL
[2021-08-13] MEDS: NALOXONE HCL 0.4 MG/ML VIAL IV PUSH (10:42)
--- NOTE | 2021-08-13 10:57 | WPDCNINT ---
Assessment and Plan Assessment and plan (1) Acute respiratory failure: Code(s): J96.00 - Acute respiratory failure, unspecified whether with hypoxia or hypercapnia Status: Acute Assessment and Plan: Acute Respiratory failure secondary to pneumonia which could be aspiration versus acquired Patient was emergently intubated in ICU Post intubation chest x-ray reviewed Vent settings reviewed ABGs pain Continue full mechanical ventilation support to prevent hypoxemia/hypercarbia and end organ damage. Low tidal volume ventilation strategy to prevent volutrauma Bronchodilators Check chest CT (2) Sepsis associated hypotension: Code(s): A41.9 - Sepsis, unspecified organism; I95.9 - Hypotension, unspecified Status: Acute Assessment and Plan: Secondary to pneumonia -community-acquired versus aspiration UA negative Check urine Legionella pneumococcal antigen Blood and sputum cultures Empiric broad-spectrum antibiotics in the form of vancomycin Zosyn and azithromycin He is receiving IV fluid bolus and will be continued on IV fluids after that Lactic acid level was 5.3 and will be repeated He may need vasopressors and central venous access (3) Pneumonia: Code(s): J18.9 - Pneumonia, unspecified organism Status: Acute Assessment and Plan: See above (4) Altered mental status: Code(s): R41.82 - Altered mental status, unspecified Status: Acute Assessment and Plan: Likely toxic metabolic encephalopathy from sepsis hypertension hypoxia and then he has received some Ativan and morphine He is now sedated for mechanical ventilation I will check head CT, ABG, ammonia level TSH is normal (5) Gastrostomy tube dependent: Code(s): Z93.1 - Gastrostomy status Status: Acute Assessment and Plan: His PEG tube appears to be clot with dried up tube feeds. I will place OG tube at this time to suction his abdomen and also feed him Will place a PEG tube to low intermittent suction for next 24 hours see if it opens up. It may need replacement (6) Thrombocytopenia: Code(s): D69.6 - Thrombocytopenia, unspecified Status: Acute Assessment and Plan: Not sure of chronicity Again could be related to sepsis Monitor and transfuse if needed Hold anticoagulation at this time (7) Leukopenia: Code(s): D72.819 - Decreased white blood cell count, unspecified Status: Acute Assessment and Plan: Could be secondary to sepsis or may be chronic Not neutropenic at this time as per differential Monitor at this time (8) History of throat cancer: Code(s): Z85.819 - Personal history of malignant neoplasm of unspecified site of lip, oral cavity, and pharynx Status: Acute (9) Elevated troponin: Code(s): R77.8 - Other specified abnormalities of plasma proteins Status: Acute Assessment and Plan: EKG does not show any ST elevation Likely secondary to respiratory failure and sepsis Check echocardiogram Add aspirin Continue serial troponin Additional Plan DVT prophylaxis -SCDs Stress ulcer prophylaxis -PPI Nutrition -start Tube Feeds Code Status - Full Code Case discussed with Dr. Link from internal medicine Total Critical Care Time - 35 minutes Due to a high probability of clinically significant, life threatening deterioration, the patient required my highest level of preparedness to intervene emergently and I personally spent this critical care time directly and personally managing the patient. This critical care time included obtaining a history; examining the patient; pulse oximetry; ordering and review of studies; arranging urgent treatment with development of a management plan; evaluation of patient's response to treatment; frequent reassessment; and discussions with other providers. It was exclusive of separately billable procedures and treating other patients and teaching time. Please see Assessment and Kei
--- NOTE | 2021-08-13 10:57 | WPDPROCEDUR ---
Procedures Intubation Intubation Date: 08/13/21 Intubation Time: 10:00 Consent: Patient emergently has patient hypoxic and in respiratory distress and failure. Patient was full code A pre-procedural Time-Out was completed immediately before starting the procedure and confirmed: Patient Identification, Site, Procedure, Patient Position and the Availability of Requisite Equipment: Yes Sedative: etomidate Mg given: 20 Paralytic: succinylcholine Mg given: 100 Laryngoscope: fiber optic video scope Assist device used: fiber optic device ET tube size: 7.5 Tube secured depth (cm): 25 Tube secured location: lips Tube placement confirmation: visualized tube passing through cords, equal breath sounds bilaterally, no breath sounds over epigastrium and confirmation by capnometry Patient tolerated procedure: well Intubation complications: none
[2021-08-13] MEDS: FENTANYL 2,500MCG/NS250ML(*CRX 2,500 MCG/250 ML BAG 12.5 MCG IV CONT (11:00)
--- NOTE | 2021-08-13 11:02 | PC.NURSE ---
Notified MD Fariba d/t pt's SBP in 70's. ordered to give pt 1L bolus, and send pt to ICU. Pt given 1 L bolus, ordered to give Narcan 0.4mg d/t pt getting Morphine 1mg and Lorazepam 1mg in the am. Primary nurse carried out MD orders and started IV ABT's. Pt taken to ICU with nurse, hospitalist, and respiratory. Report given to Rosita ICU nurse.
[2021-08-13 11:11] LABS: Folic Acid > 20.0 ng/mL (2.76->20)
[2021-08-13 12:24] LABS: Reflex Lactic Acid Yes or No Add Lactic
[2021-08-13 12:31] LABS: Alveolar/Arterial O2 Gradient 571.9 mmHg; Base Excess ABG -9.1 mEq/l (+/-2.0); Fractional Inspired Oxygen 100 %; HCO3 ABG 20.4 mEq/l (22.0-26.0); Oxygen Content ABG 19.4 %vol (16.0-22.0); Oxygen Saturation ABG 92.5 % (95.0-100.0); Oxyhemoglobin 93.1 % THb (90.0-100.0); PCO2 ABG 59.2 mmHg (35.0-45.0); PO2 ABG 81.9 mmHg (80.0-100.0); PO2 FiO2 Ratio Arterial Blood 0.82 %; Site Drawn RIGHT RADIAL; Total Hemoglobin 14.8 g/dL (12.0-18.0); pH ABG 7.155 (7.350-7.450)
[2021-08-13 12:32] LABS: Arterial Blood Gas PEEP 10 cmH2O; Arterial Blood Gas Tidal Volume 350 ml; Arterial Blood Gas Vent Mode CMV; Arterial Blood Gas Ventilator rate 22 /MIN; Device VENTILATOR; Modified Allen's Test Pass
--- NOTE | 2021-08-13 13:28 | WPDPROCEDUR ---
Procedures Central Line Placement Right Femoral: Central Line Date: 08/13/21 Central Line Time: 12:30 Discussed w/ the patient/family/POA,the placement of a central venous catheter, including its clinical necessity/indication & associated potential risks, benifits and alternatives.: Yes Consent: Consent was obtained from patient's for the the non-emergent placement of a central venous catheter, including its clinical necessity/indication and associated potential risks and complications. The patient and/or surrogate understand(s) and acknowledge(s) the need to proceed with central venous catheter insertion as an important element of the patient's clinical management. Time Out Performed: Yes Patient Position: supine Patient placed on monitor/pulse ox: Yes Provider Prep: mask, sterile gown, sterile gloves, Max. sterile barrier precautions, cap and hand hygiene with conventional soap/water or alcohol based hand rub Central line prep: Povidone-Iodine 1% Sterile US Technique with sterile gel/sterile probe covers: Yes Central line lumen inserted: triple Length (cm): 16 Depth of Insertion (cm): 16 Post Procedure: sutured in place, good blood return, all ports aspirated, flushed, capped, transparent dressing, hemostatic product and aseptic technique maintained throughout procedure Post procedure x-ray: other Patient tolerated procedure: well Complications: none
[2021-08-13] MEDS: PIPERACILLIN/TAZOBACTAM SOD 4.5 GM in SODIUM CHLORIDE 0.9% IV 100 ML 200 ML IVPB ×3 (14:01→23:58)
[2021-08-13 14:06] LABS: Glucose Point of Care 120 mg/dl (65-105)
[2021-08-13 14:07] LABS: Lactic Acid Reflex 4.8 mmol/L (0.7-2.0)
[2021-08-13 14:22] LABS: Troponin I 0.064 ng/mL (0.000-0.034)
[2021-08-13] MEDS: MIDAZOLAM HCL (*CRX) 2 MG/2 ML VIAL IV PUSH (14:47)
[2021-08-13] MEDS: NOREPINEPHRINE 8 MG/D5W 250 ML 8 MG/250 ML BAG 9.38 MG IV CONT (14:48)
[2021-08-13] MEDS: SODIUM BICARBONATE 8.4% 50 MEQ/50 ML SYRINGE 100 MEQ IV PUSH (14:50)
[2021-08-13] MEDS: MIDAZOLAM 100MG/NS 100ML(*CRX) 100 MG/100 ML BAG IV CONT (14:58)
[2021-08-13 15:05] LABS: Ammonia < 9 umol/L (9-30)
[2021-08-13] MEDS: HYDROCORTISONE SODIUM SUCCINATE 100 MG/2 ML VIAL IV PUSH ×2 (15:09→20:49)
[2021-08-13] MEDS: VASOPRESSIN INJ 100 UNITS in DEXTROSE 5% 95 ML IV CONT (15:09)
[2021-08-13] MEDS: NOREPINEPHRINE 8 MG/D5W 250 ML 8 MG/250 ML BAG 37.5 MG IV CONT (19:30)
[2021-08-13] MEDS: MINERAL OIL/WHITE PETROLATUM OINTMENT 1 APPLIC EACH EYE (20:51)
--- NOTE | 2021-08-13 21:05 | PC.NURSE ---
Dr. Rodríguez updated on BP and rate of pressors. Orders obtained for albumin 5% bolus.
[2021-08-13] MEDS: ALBUMIN HUMAN 5% 25 GM/500 ML BTL IV CONT (21:24)
[2021-08-13 22:27] LABS: Troponin I 0.117 ng/mL (0.000-0.034)
[2021-08-13 23:20] LABS: Glucose Point of Care 191 mg/dl (65-105)
[2021-08-14] VITALS (48 sets, daily range): BP systolic 89–138; BP diastolic 68–100; PULSE 64–123; RESP 23–32; TEMP 36.5–38.6; O2SAT 32–98; BMI 23.4
--- NOTE | 2021-08-14 | ECHO_ITS ---
Patient Info Name: Mal Akhtar Age: 66 years : 1955 Gender: Male Ht: 67 in Wt: 148 lbs BSA: 1.79 m2 HR: 107 bpm BP: 125 / 60 mmHg Heart Rhythm: Sinus Rhythm Exam Date: 08/14/2021 8:31 AM Exam Location: [facility] Pulmonary Patient Status: Inpatient Admit Date: 08/13/2021 Staff Ordering Physician: Farhad Rodríguez MD [employer] Clerk: Nii Wing, DEYA, RT Attending Provider: Jaya Link MD Exam Type: CA echo doppler color flow Study Info Indications I48.0 - Paroxysmal atrial fibrillation Complete two-dimensional, color flow and Doppler transthoracic echocardiogram is performed. Strain analysis performed. Summary 1. Complete two-dimensional, color flow and Doppler transthoracic echocardiogram is performed. 2. Left ventricular chamber dimension is normal. 3. Left ventricular systolic function is mildly reduced, estimated at 40-45%. 4. The posterior/inferior segments are hypodynamic. 5. Right ventricular chamber dimension is severely enlarged. 6. Right ventricular systolic function is reduced. 7. There is mild aortic valve sclerosis. Left Ventricle Left ventricular chamber dimension is normal. Left ventricular systolic function is mildly reduced, estimated at 40-45%. The left ventricular diastolic function is normal. The posterior/inferior segments are hypodynamic. Right Ventricle Right ventricular chamber dimension is severely enlarged. Right ventricular systolic function is reduced. Left Atria Left atrial chamber dimension is normal. Right Atria Right atrial chamber dimension is mildly enlarged. Aortic Valve The aortic valve is trileaflet. There is mild aortic valve sclerosis. Pulmonic Valve The pulmonic valve is not well visualized. Mitral Valve The mitral valve has normal leaflets. The mitral valve annulus is mildly calcified. Tricuspid Valve The tricuspid valve leaflets are normal. Pericardium/Pleural The pericardium appears normal. Aorta The aortic root size at the sinus of Valsalva is normal. Left Ventricular Outflow Tract Name Value Normal LVOT 2D LVOT Diameter 2.1 cm LVOT Doppler LVOT Peak Gradient 2 mmHg LVOT Mean Gradient 1 mmHg LVOT VTI 11 cm LVOT VTI/AV VTI Ratio 0.7 LVOT Stroke Volume 37 ml LVOT CO 3.8 l/min LVOT CI 2.2 l/min/m2 Mitral Valve Name Value Normal MV Doppler MV Decel Page 336 cm/s2 MV PHT 52 ms MV Area (PHT) 4.3 cm2 4.0-5.0 MV Diastolic Function MV E Peak Velocity 60 cm/s
[2021-08-14] MEDS: NOREPINEPHRINE 8 MG/D5W 250 ML 8 MG/250 ML BAG 41.25 MG IV CONT (01:20)
[2021-08-14] MEDS: IPRATROPIUM BR 0.02% INH SOLN 0.5 MG/2.5 ML VIAL INHALATION ×4 (01:44→20:12)
[2021-08-14] MEDS: ALBUTEROL SULFATE NEB 2.5 MG/3 ML INH 5 MG INHALATION ×4 (01:44→20:11)
--- NOTE | 2021-08-14 04:38 | ECG_ITS ---
Measurements Intervals Cable Rate: 96 P: 84 MD: 160 QRS: 78 QRSD: 97 T: 74 QT: 357 QTc: 452 Interpretive Statements SINUS RHYTHM LOW QRS VOLTAGE IN EXTREMITY LEADS [QRS DEFLECTION < 0.5 mV IN LIMB LEADS] MARKED ST ELEVATION, CONSIDER INFERIOR INJURY [MARKED ST ELEVATION W/O NORMALLY INFLECTED T WAVE IN II/aVF] ACUTE SD COMPARED TO ECG 08/12/2021 23:36:[address] SEGMENT ELEVATION IS SEEN Electronically Signed On 08-14-2021 15:45:35 CDT by Ozzy Mehta M.D.
[2021-08-14 04:58] LABS: Hematocrit 42.7 % (42.0-52.0); Hemoglobin 13.3 g/dL (14.0-18.0); Immature Platelet Fraction Pct 18.4 % (0.9-11.2); Mean Corpuscular HGB Conc 31.1 g/dl (32-36); Mean Corpuscular Hemoglobin 31.8 pg (26-34); Mean Corpuscular Volume 102.2 fl (80-100); Mean Platelet Volume 13.7 fl (7.4-10.4); Platelet Count Result 98 k/mm3 (150-375); Red Blood Count 4.18 M/mm3 (4.6-6.20); Red Cell Distribution Width 14.3 % (11.5-14.5); White Blood Count 16.5 K/mm3 (4.5-10.0)
[2021-08-14 05:00] LABS: Alveolar/Arterial O2 Gradient 357.1 mmHg; Base Excess ABG -7.5 mEq/l (+/-2.0); Carboxyhemoglobin 0.3 % THb (0-2.0); Fractional Inspired Oxygen 70 %; HCO3 ABG 20.9 mEq/l (22.0-26.0); Methemoglobin ABG 0.5 %THb (0-1.5); Oxygen Content ABG 19.1 %vol (16.0-22.0); Oxygen Saturation ABG 93.8 % (95.0-100.0); Oxyhemoglobin 95.5 % THb (90.0-100.0); PCO2 ABG 54.2 mmHg (35.0-45.0); PO2 ABG 83.7 mmHg (80.0-100.0); Reduced Hemoglobin 3.7 %THb (0-5.0); Total Hemoglobin 14.2 g/dL (12.0-18.0)
[2021-08-14 05:05] LABS: pH ABG 7.204 (7.350-7.450)
[2021-08-14 05:06] LABS: Arterial Blood Gas Ventilator rate 25 /MIN; Device VENTILATOR; Modified Allen's Test Unable to perform; Site Drawn RIGHT RADIAL
[2021-08-14 05:07] LABS: Arterial Blood Gas PEEP 12 cmH2O; Arterial Blood Gas Tidal Volume 450 ml; Arterial Blood Gas Vent Mode CMV
[2021-08-14 05:07] LABS: Alanine Aminotransferase 34 U/L (6-50); Albumin Level 3.1 g/dL (3.5-5.1); Alkaline Phosphatase 44 U/L (38-126); Anion Gap 8 mmol/L (8-16); Aspartate Amino Transferase 83 U/L (17-59); Bilirubin,Total 0.7 mg/dL (0.2-1.3); Blood Urea Nitrogen 38 mg/dL (9-20); Calcium 7.1 mg/dL (8.4-10.2); Carbon Dioxide 23 mmol/L (22-30); Chloride 108 mmol/L (98-107); Estimated CRCL calculation 44 ml/min; Estimated Glomerular Filt Rate 50; Glucose 166 mg/dL (65-110); Magnesium 1.9 mg/dL (1.6-2.3); Phosphorus 4.3 mg/dL (2.5-4.5); Potassium 4.3 mmol/L (3.4-5.0); Sodium 139 mmol/L (137-145)
--- NOTE | 2021-08-14 05:20 | PC.NURSE ---
Dr. Watts had been notified regarding possible ST Elevation. No need for laboratory administrative director at this time. No anticoagulation as well. Echo ordered for AM.
[2021-08-14] MEDS: HYDROCORTISONE SODIUM SUCCINATE 100 MG/2 ML VIAL IV PUSH ×3 (06:00→20:10)
[2021-08-14] MEDS: LEVOTHYROXINE SODIUM 25 MCG TABLET FEED TUBE (06:00)
--- NOTE | 2021-08-14 06:03 | PC.NURSE ---
Dr. Rodríguez updated regarding labs. Give Aspirin 325 Daily. Also give 2 amps of Sodium Bicarb push x1 now.
[2021-08-14] MEDS: PIPERACILLIN/TAZOBACTAM SOD 4.5 GM in SODIUM CHLORIDE 0.9% IV 100 ML 200 ML IVPB ×4 (06:10→23:23)
[2021-08-14] MEDS: ASPIRIN 325 MG TABLET PO (06:25)
[2021-08-14] MEDS: SODIUM BICARBONATE 8.4% 50 MEQ/50 ML SYRINGE 100 MEQ IV PUSH (06:25)
[2021-08-14] MEDS: SODIUM CHLORIDE 0.9% IV 1,000 ML 125 ML IV CONT (06:50)
[2021-08-14] MEDS: FENTANYL 2,500MCG/NS250ML(*CRX 2,500 MCG/250 ML BAG 7.5 MCG IV CONT ×2 (07:27→16:01)
[2021-08-14] MEDS: NOREPINEPHRINE 8 MG/D5W 250 ML 8 MG/250 ML BAG 35.63 MG IV CONT (07:32)
[2021-08-14] MEDS: PANTOPRAZOLE SODIUM IV 40 MG VIAL IV PUSH (07:48)
[2021-08-14] MEDS: MINERAL OIL/WHITE PETROLATUM OINTMENT 1 APPLIC EACH EYE ×2 (08:09→20:10)
[2021-08-14] MEDS: polyethylene glycoL 3350 17 GM POWD.PACK PO (08:14)
[2021-08-14] MEDS: LACTATED RINGERS 1,000 ML 75 ML IV CONT ×2 (08:14→22:01)
[2021-08-14] MEDS: DOCUSATE SODIUM LIQ 100 MG/10 ML UDC PO (08:16)
[2021-08-14] MEDS: CALCIUM CHLOR 1,000MG/100ML NS 1,000 MG/100 ML BAG 100 MG IVPB (08:16)
[2021-08-14 08:22] LABS: Lactic Acid Reflex 5.9 mmol/L (0.7-2.0)
--- NOTE | 2021-08-14 08:44 | WPDINTPN ---
Progress Note: A&P Assessment and Plan (1) Acute respiratory failure: Code(s): J96.00 - Acute respiratory failure, unspecified whether with hypoxia or hypercapnia Status: Acute Assessment and Plan: Acute Respiratory failure secondary to pneumonia which could be aspiration versus community-acquired 08/13 Patient was emergently intubated in ICU CT scan showed Diffuse groundglass and consolidative opacities. Vent settings reviewed and currently on 70% FiO2 and 12 of PEEP tidal volume 450 and rate of 25 ABGs reviewed Chest x-ray reviewed Continue full mechanical ventilation support to prevent hypoxemia/hypercarbia and end organ damage. Low tidal volume ventilation strategy to prevent volutrauma Bronchodilators Not a candidate for weaning at this time Decrease IV fluids due to component of pulmonary edema (2) Septic shock: Code(s): A41.9 - Sepsis, unspecified organism; R65.21 - Severe sepsis with septic shock Status: Acute Assessment and Plan: Septic shock secondary to pneumonia, possible cardiogenic component UA negative Pending urine Legionella pneumococcal antigen Blood and sputum cultures sent and pending Empiric broad-spectrum antibiotics in the form of vancomycin Zosyn and azithromycin He received 4 L of IV fluid bolus on presentation and was started on IV fluids. I will continue IV fluids but decrease the rate Lactic acid level continues to be elevated and can be secondary to hypoxia and decreased hepatic clearance Add 25% albumin Continue hydrocortisone at stress dose was 08/13 Central venous catheter was placed emergently in right femoral area for vasopressors. Patient has history of surgery on his jugular veins due to his throat cancer Check echocardiogram to assess cardiac function and may need ionotropic if significantly low (3) Pneumonia: Code(s): J18.9 - Pneumonia, unspecified organism Status: Acute Assessment and Plan: See above (4) Altered mental status: Code(s): R41.82 - Altered mental status, unspecified Status: Acute Assessment and Plan: Likely toxic metabolic encephalopathy from sepsis hypertension hypoxia and then he has received some Ativan and morphine He is now sedated for mechanical ventilation Unremarkable head CT Normal ammonia level Normal TSH level (5) Gastrostomy tube dependent: Code(s): Z93.1 - Gastrostomy status Status: Acute Assessment and Plan: His PEG tube was clogged with dried up tube feeds on present OG tube was placed and patient was started on tube feeds PEG tube was manually milked to break the clot. PEG tube was flushed and aspirated with saline multiple times appears that it is now working in both directions. Will switch tube feeds to PEG tube. If the no issues will remove OG tube (6) Thrombocytopenia: Code(s): D69.6 - Thrombocytopenia, unspecified Status: Acute Assessment and Plan: Not sure of chronicity Again could be related to sepsis Monitor and transfuse if needed Hold anticoagulation at this time (7) Leukopenia: Code(s): D72.819 - Decreased white blood cell count, unspecified Status: Acute Assessment and Plan: Likely secondary to sepsis added has resolved today and white count has increased to 16,000 (8) History of throat cancer: Code(s): Z85.819 - Personal history of malignant neoplasm of unspecified site of lip, oral cavity, and pharynx Status: Acute Assessment and Plan: He had multiple surgeries and radiation for it and as per his his last treatment was [address] soft tissue neck 1. No specific findings related to patient's history of throat cancer are identified, sensitivity limited by the absence of intravenous contrast. 2. Widespread airspace and groundglass opacities of the visualized lungs, consistent with pneumonia and/or pulmonary edema. (9) Elevated troponin: Code(s): R77.8 - Other specified abnormalities of jone
[2021-08-14 09:54] LABS: NT Pro B Type Natriuretic Pept 8350 pg/mL (5-100)
[2021-08-14 11:00] LABS: Reflex Lactic Acid Yes or No Add Lactic
[2021-08-14 11:06] LABS: Glucose Point of Care 149 mg/dl (65-105)
--- NOTE | 2021-08-14 11:23 | PM.IMPN ---
Progress Note: A&P Assessment and Plan (1) Septic shock: Code(s): A41.9 - Sepsis, unspecified organism; R65.21 - Severe sepsis with septic shock Status: Acute Assessment and Plan: Patient was hypotensive on admission felt related to pneumonia. Patient met sepsis criteria on admission with tachypnea tachycardia and fever. He also has leukopenia felt related to the sepsis. Patient moved to the ICU. Now with lactic acidosis. Blood cultures no growth to date. White count improved felt related to the steroids. He remains on Levophed and vasopressin. Wean pressors as tolerated. Appreciate diamond wheel molder input. (2) Acute respiratory failure: Code(s): J96.00 - Acute respiratory failure, unspecified whether with hypoxia or hypercapnia Status: Acute Assessment and Plan: Patient with acute respiratory failure probably related to pneumonia. he has known chronic secretion production probably related to esophageal stricture. He also drinks water on occasion for oral medications. Respiratory failure probably related to aspiration and pneumonia. Continue supportive care. Continue nebulizer treatments. (3) Acute coronary syndrome: Code(s): I24.9 - Acute ischemic heart disease, unspecified Status: Acute Assessment and Plan: Patient had mildly elevated troponins on admission that worsened overnight. Changes noted on telemetry and EKG obtained showing ST elevation in the inferior leads consistent with STEMI. Cardiology was consulted but STEMI team not activated due to the severity of the patient's current condition. Aspirin was added. Echocardiogram shows EF of 40-45%, posterior 0 inferior segments are hyperdynamic, severely enlarged right ventricle with reduced systolic RV function. Spoke with Cardiology felt that the severely dilated right ventricle is chronic could be related to pulmonary hypertension from chronic aspiration (PAP could not be evaluated). Discussed with diamond wheel molder. Changing to Dobutamine being considered. Consider also acute/chronic PE. (4) Altered mental status: Code(s): R41.82 - Altered mental status, unspecified Status: Acute Assessment and Plan: Patient had decreased responsiveness on presentation to the ED. His states the patient was appropriate but sleepy. CT brain showing no acute process. (5) Community acquired pneumonia: Code(s): J18.9 - Pneumonia, unspecified organism Status: Acute Assessment and Plan: CXR bilateral right greater than left airspace disease that has progressed to diffuse disease. Antibiotics adjusted. As above. (6) Leukopenia: Code(s): D72.819 - Decreased white blood cell count, unspecified Status: Acute Assessment and Plan: WBC at 1.3K with ANC 1100. Etiology unclear but could be related to profound sepsis. Procalcitonin and CRP elevated. WBC better today but on steroids. (7) Thrombocytopenia: Code(s): D69.6 - Thrombocytopenia, unspecified Status: Acute Assessment and Plan: Platelet count 111K. Could be chronic but concerning for overwhelming sepsis. Repeat platelet count down to 98K. 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 He has chronic tingling in his hands bilaterally. He has also had progressive weakness in his legs according to his resulting in his need to use a walker. His weakness has worsened but not unexpected given the severity of his presentation. He will need PT and OT once he is well. CT the brain showing no acute process. Will hold on doing any further cervical spine evaluation since he has had MRI of the cervical spine in the past and he is being followed up by Neurology unless there are acute changes. (9) History of throat cancer: Code(s)
[2021-08-14] MEDS: ALBUMIN HUMAN 25% 25 GM/100 ML 100 ML IVPB ×3 (11:24→23:53)
--- NOTE | 2021-08-14 11:44 | PM.CNCAR ---
Assessment and Plan Assessment and plan (1) Acute coronary syndrome: Code(s): I24.9 - Acute ischemic heart disease, unspecified Status: Acute (2) Elevated troponin: Code(s): R77.8 - Other specified abnormalities of plasma proteins Status: Acute Plan This is a 66-year-old man with: Acute inferior myocardial infarction occurring or in the overnight hours noticed on ECG early this morning. The patient has not had any acute hemodynamic instability or serious arrhythmias. I made the clinical judgment that he was not an acceptable candidate for emergency angiography based on his poor overall condition but primarily based on the fact that he was already in septic shock requiring significant pressor support. Discussed the echocardiographic findings in detail with the collections attorney as I am concerned that he will not tolerate diuretics well given his right ventricular dysfunction. His prognosis is very guarded in my opinion and we will follow him with you. At this time I would simply treat him with aspirin for his presumed coronary artery disease. He cannot receive a beta-joseph and JESSICA-inhibitor for a obvious hemodynamic reasons at this time Ozzy Mehta MD [facility] History of Present Illness History of Present Illness Consult date/time: 08/14/21 11:44 Reason For Visit: Community-acquired Pneumonia,Respiratory Failure Narrative: This is a 66-year-old patient that I am seeing at the request of the hospitalist's/collections attorney because of acute myocardial infarction which appears to have occurred while he is hospitalized in the ICU. The patient is unknown to me prior to this encounter and was hospitalized for shortness of breath, respiratory insufficiency he has severe bilateral pneumonia and is in a state of septic shock intubated in the ICU and on significant pressor support. The patient has had a history of multiple aspiration events for a number of years as a sequelae of throat cancer and treatment of throat cancer so surgery. He is intubated and on the ventilator incapable of providing any history. According to the patient's who is in the room and according to the records he was found to have throat cancer a number of years ago. He had enlarging neck mass that was evaluated by his physician and ultimately referred to [facility]. He had an extensive surgical resection of this followed by radiation therapy to the neck. He had a lot of difficulty following that with esophageal stenosis and dysphasia as well as frequent episodes of aspiration. This progressed to the point where he required a PEG tube for feeding so that he does not aspirate is food. Despite this the patient's states he still has a lot of secretions and cough Long aspirates those with frequency. The patient early this morning was noticed by the ICU nurse to have a change in his parents of his electrocardiogram on the telemetry lead. They were simply bathing him at that time and noticed some ST segment elevation. A 12 lead ECG was done and the sent that me for my evaluation while I was at home. Electrocardiogram does show some ST segment elevation in the inferior leads 2 3 and AVF. There was no reciprocal depression and the ST-elevation was relatively mild. Because of his severe septic situation, pressure support as well as hemodynamics were shock requiring pressure support I decided against bringing the patient for emergency angiogram the in a early this morning. His troponin levels have risen to a just over 5. He does have sinus rhythm some with some occasional to frequent VPCs on telemetry. Had a long discussion with the patient's about the seriousness of this illness with acute RI occurring in the setting of pneumonia and septic shock. Echocardiogram done this morning demonstrates normal left ventricular size. The infero posterior segments are hypodynamic his ejection fraction is 40-45%. Aortic and mitral valve are unremarkable. His right ventric
[2021-08-14 11:51] LABS: Lactic Acid 6.1 mmol/L (0.7-2.0)
[2021-08-14 12:04] LABS: Glucose Point of Care 111 mg/dl (65-105)
[2021-08-14] MEDS: MIDAZOLAM 100MG/NS 100ML(*CRX) 100 MG/100 ML BAG IV CONT (12:06)
[2021-08-14] MEDS: DOBUTamine 250 MG/D5W 250 ML 250 MG/250 ML BAG 11.76 MG IV CONT (13:57)
[2021-08-14] MEDS: ALBUMIN HUMAN 5% 25 GM/500 ML BTL IV CONT (13:58)
[2021-08-14] MEDS: NOREPINEPHRINE 8 MG/D5W 250 ML 8 MG/250 ML BAG 30 MG IV CONT (15:41)
--- NOTE | 2021-08-14 17:28 | ECG_ITS ---
Measurements Intervals [place] Rate: 125 P: 55 WA: 132 QRS: 35 QRSD: 81 T: 43 QT: 292 QTc: 422 Interpretive Statements SINUS TACHYCARDIA WITH FREQUENT VENTRICULAR PREMATURE COMPLEXES IN A BIGEMINAL PATTERN LOW QRS VOLTAGE MARKED ST ELEVATION, INFERIOR INJURY ACUTE CT Electronically Signed On 08-15-2021 10:48:04 CDT by Ken Moore M.D.
[2021-08-14 23:40] LABS: Glucose Point of Care 159 mg/dl (65-105)
[2021-08-15] VITALS (44 sets, daily range): BP systolic 99–132; BP diastolic 59–88; PULSE 101–122; RESP 24–26; TEMP 36.1–37; O2SAT 94–98
[2021-08-15] MEDS: IPRATROPIUM BR 0.02% INH SOLN 0.5 MG/2.5 ML VIAL INHALATION ×4 (01:59→19:33)
[2021-08-15] MEDS: ALBUTEROL SULFATE NEB 2.5 MG/3 ML INH 5 MG INHALATION ×4 (01:59→19:33)
[2021-08-15] MEDS: DOBUTamine 250 MG/D5W 250 ML 250 MG/250 ML BAG 23.52 MG IV CONT ×2 (03:28→14:59)
[2021-08-15 05:00] LABS: Glucose Point of Care 115 mg/dl (65-105)
[2021-08-15 05:00] LABS: Alveolar/Arterial O2 Gradient 261.2 mmHg; Base Excess ABG 0.1 mEq/l (+/-2.0); Carboxyhemoglobin 0.1 % THb (0-2.0); Fractional Inspired Oxygen 60 %; HCO3 ABG 26.6 mEq/l (22.0-26.0); Methemoglobin ABG 0.5 %THb (0-1.5); Oxygen Content ABG 15.2 %vol (16.0-22.0); Oxygen Saturation ABG 97.7 % (95.0-100.0); Oxyhemoglobin 96.9 % THb (90.0-100.0); PCO2 ABG 51.4 mmHg (35.0-45.0); PO2 ABG 110.1 mmHg (80.0-100.0); PO2 FiO2 Ratio Arterial Blood 1.83 %; Reduced Hemoglobin 2.5 %THb (0-5.0); pH ABG 7.331 (7.350-7.450)
[2021-08-15] MEDS: NOREPINEPHRINE 8 MG/D5W 250 ML 8 MG/250 ML BAG 15 MG IV CONT (05:10)
[2021-08-15 05:11] LABS: Arterial Blood Gas PEEP 12 cmH2O; Arterial Blood Gas Tidal Volume 450 ml; Arterial Blood Gas Vent Mode CMV; Arterial Blood Gas Ventilator rate 25 /MIN; Device VENTILATOR; Site Drawn RIGHT RADIAL
[2021-08-15] MEDS: LACTATED RINGERS 1,000 ML 75 ML IV CONT (05:14)
[2021-08-15] MEDS: ALBUMIN HUMAN 25% 25 GM/100 ML 100 ML IVPB ×3 (05:21→18:26)
[2021-08-15] MEDS: LEVOTHYROXINE SODIUM 25 MCG TABLET FEED TUBE (05:35)
[2021-08-15] MEDS: HYDROCORTISONE SODIUM SUCCINATE 100 MG/2 ML VIAL IV PUSH ×3 (05:35→21:02)
[2021-08-15 05:39] LABS: Hematocrit 31.8 % (42.0-52.0); Hemoglobin 10.1 g/dL (14.0-18.0); Immature Platelet Fraction Pct 20.5 % (0.9-11.2); Mean Corpuscular HGB Conc 31.8 g/dl (32-36); Mean Corpuscular Hemoglobin 31.7 pg (26-34); Mean Corpuscular Volume 99.7 fl (80-100); Mean Platelet Volume 14.2 fl (7.4-10.4); Platelet Count Result 51 k/mm3 (150-375); Red Blood Count 3.19 M/mm3 (4.6-6.20); Red Cell Distribution Width 14.6 % (11.5-14.5); White Blood Count 10.8 K/mm3 (4.5-10.0)
[2021-08-15 05:46] LABS: Alanine Aminotransferase 32 U/L (6-50); Albumin Level 3.3 g/dL (3.5-5.1); Alkaline Phosphatase 51 U/L (38-126); Anion Gap 8 mmol/L (8-16); Aspartate Amino Transferase 149 U/L (17-59); Bilirubin,Total 0.8 mg/dL (0.2-1.3); Blood Urea Nitrogen 51 mg/dL (9-20); Carbon Dioxide 31 mmol/L (22-30); Chloride 105 mmol/L (98-107); Estimated CRCL calculation 47 ml/min; Estimated Glomerular Filt Rate 47; Glucose 139 mg/dL (65-110); Magnesium 2.1 mg/dL (1.6-2.3); Phosphorus 1.8 mg/dL (2.5-4.5); Potassium 3.3 mmol/L (3.4-5.0); Sodium 144 mmol/L (137-145)
[2021-08-15] MEDS: PIPERACILLIN/TAZOBACTAM SOD 4.5 GM in SODIUM CHLORIDE 0.9% IV 100 ML 200 ML IVPB (06:17)
[2021-08-15] MEDS: ASPIRIN 325 MG TABLET PO (08:29)
[2021-08-15] MEDS: MINERAL OIL/WHITE PETROLATUM OINTMENT 1 APPLIC EACH EYE ×2 (08:29→20:26)
[2021-08-15] MEDS: PANTOPRAZOLE SODIUM IV 40 MG VIAL IV PUSH (08:29)
[2021-08-15] MEDS: POTASSIUM PHOS,M-BASIC-D-BASIC 20 MMOL in SODIUM CHLORIDE 0.9% IV 250 ML 64.17 MMOL IVPB (09:26)
[2021-08-15 11:45] LABS: Reflex Lactic Acid Yes or No Add Lactic
[2021-08-15] MEDS: LIDOCAINE HCL 1% PF INJ 5 ML VIAL INFILTRATE (12:00)
--- NOTE | 2021-08-15 12:00 | PCFNICU ---
ICU Rounding Note: Pt current nutrition is Vital AF 1.2 at 75 ml/hr over 22 hours. Last recorded weight is 72.4 kg, up from 78.4 kg on admit. Bowel Motility:+BM reported 08/15 Labs Reviewed:Glu 139, Cr 1.5,GFR 47, BUN 51, Alb 3.3,Hgb 10.1, Hct 31.8 Meds Noted:Vancomycin, Fentanyl, Versed, Levophed, Vasopressin, Solu Cortef Skin: Deep Tissue injury reported-coccyx Additional Notes: Patient remains on mechanical vent and tube feedings of Vital AF 1.2 at 75 ml/hr and tolerating at this time. Free water flush 30 ml q 4 hours. Berny BID flush for wound healing. Agree with diet orders. Patient to have PICC placed today. Monitoring: Following daily in ICU rounds and reassessing every Saturday and Saturday.
[2021-08-15 12:49] LABS: Glucose Point of Care 130 mg/dl (65-105)
[2021-08-15 13:07] LABS: Lactic Acid 2.4 mmol/L (0.7-2.0)
--- NOTE | 2021-08-15 13:24 | WPDINTPN ---
Progress Note: A&P Assessment and Plan (1) Acute respiratory failure: Code(s): J96.00 - Acute respiratory failure, unspecified whether with hypoxia or hypercapnia Status: Acute Assessment and Plan: Acute Respiratory failure secondary to pneumonia which could be aspiration versus community-acquired 08/13 Patient was emergently intubated in ICU CT scan showed Diffuse ground-glass and consolidative opacities. -remains on CMV mode of ventilation, 60% FiO2, peep of 12. ABGs reviewed Chest x-ray reviewed Continue full mechanical ventilation support to prevent hypoxemia/hypercarbia and end organ damage. Low tidal volume ventilation strategy to prevent volutrauma Continue Bronchodilators Not a candidate for weaning at this time Decrease IV fluids due to component of pulmonary edema (2) Septic shock: Code(s): A41.9 - Sepsis, unspecified organism; R65.21 - Severe sepsis with septic shock Status: Acute Assessment and Plan: Septic along with cardiogenic shock secondary to pneumonia, possible cardiogenic component -UA negative -Pending urine Legionella and pneumococcal antigen -08/13: Blood cultures negative x2 -continue broad-spectrum antibiotics in the form of vancomycin Zosyn and azithromycin (08/13) -patient has received adequate fluids since admission -continue Levophed, maintain mean arterial pressures > 65 mmHg for adequate end of perfusion -OFF vasopressin -likely cardiogenic shock given right sided dysfunction on echocardiogram -lactic acid improving since starting dobutamine -continue albumin for now -Continue stress dose steroids 08/13 Central venous catheter was placed emergently in right femoral area for vasopressors. Patient has history of surgery on his jugular veins due to his throat cancer 08/14 echocardiogram: Showed EF of 40-45%, posterior and inferior segments are hyperdynamic, right ventricle chamber is severely enlarged, right ventricular systolic function is reduced (3) Pneumonia: Code(s): J18.9 - Pneumonia, unspecified organism Status: Acute Assessment and Plan: See above (4) Altered mental status: Code(s): R41.82 - Altered mental status, unspecified Status: Acute Assessment and Plan: Likely toxic metabolic encephalopathy from sepsis hypertension hypoxia and then he has received some Ativan and morphine He is now sedated for mechanical ventilation Unremarkable head CT Normal ammonia level Normal TSH level (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 PEG tube was flushed and aspirated with saline multiple times appears that it is now working in both directions. Will switch tube feeds to PEG tube. If the no issues will remove OG tube (6) Thrombocytopenia: Code(s): D69.6 - Thrombocytopenia, unspecified Status: Acute Assessment and Plan: Not sure of chronicity Again could be related to sepsis Monitor and transfuse if needed Hold anticoagulation at this time (7) Leukopenia: Code(s): D72.819 - Decreased white blood cell count, unspecified Status: Acute Assessment and Plan: Likely secondary to sepsis added has resolved today and white count has normalized (8) History of throat cancer: Code(s): Z85.819 - Personal history of malignant neoplasm of unspecified site of lip, oral cavity, and pharynx Status: Acute Assessment and Plan: He had multiple surgeries and radiation for it and as per his his last treatment was [address] soft tissue neck 1. No specific findings related to patient's history of throat cancer are identified, sensitivity limited by the absence of intravenous contrast. 2. Widespread airspace and groundglass opacities of the
[2021-08-15] MEDS: CENTRAL LINE FLUSH 10 ML IV PUSH ×2 (13:36→20:31)
--- NOTE | 2021-08-15 14:15 | PM.IMPN ---
Progress Note: A&P Assessment and Plan (1) Septic shock: Code(s): A41.9 - Sepsis, unspecified organism; R65.21 - Severe sepsis with septic shock Status: Acute Assessment and Plan: Patient was hypotensive on admission felt related to pneumonia. Patient met sepsis criteria on admission with tachypnea tachycardia and fever. He also has leukopenia felt related to the sepsis. Patient moved to the ICU. Now with lactic acidosis. Blood cultures no growth to date. White count improved felt related to the steroids. He remains on Levophed and vasopressin. Wean pressors as tolerated. Appreciate melt room operator input. (2) Acute respiratory failure: Code(s): J96.00 - Acute respiratory failure, unspecified whether with hypoxia or hypercapnia Status: Acute Assessment and Plan: Patient with acute respiratory failure probably related to pneumonia. he has known chronic secretion production probably related to esophageal stricture. He also drinks water on occasion for oral medications. Respiratory failure probably related to aspiration and pneumonia. Continue supportive care. Continue nebulizer treatments. Patient intubated emergently 08/13 CT scan with diffuse ground-glass and consolidative opacities Continue mechanical ventilation per melt room operator. (3) Acute coronary syndrome: Code(s): I24.9 - Acute ischemic heart disease, unspecified Status: Acute Assessment and Plan: Patient had mildly elevated troponins on admission that worsened overnight. Changes noted on telemetry and EKG obtained showing ST elevation in the inferior leads consistent with STEMI. Cardiology was consulted but STEMI team not activated due to the severity of the patient's current condition. Aspirin was added. Echocardiogram shows EF of 40-45%, posterior 0 inferior segments are hyperdynamic, severely enlarged right ventricle with reduced systolic RV function. Spoke with Cardiology felt that the severely dilated right ventricle is chronic could be related to pulmonary hypertension from chronic aspiration (PAP could not be evaluated). Discussed with melt room operator. Changing to Dobutamine being considered. Consider also acute/chronic PE. Echo 08/14 EF 40-45% posterior and her symptoms are hyperdynamic right ventricle chamber is severely enlarged right ventricular systolic function is reduced. Troponin elevated to the 0.9 aspirin was added Poor candidate for beta-joseph JESSICA admitted shock Cardiology recommended against anticoagulation due to significant thrombocytopenia Medical management planned (4) Altered mental status: Code(s): R41.82 - Altered mental status, unspecified Status: Acute Assessment and Plan: Patient had decreased responsiveness on presentation to the ED. His states the patient was appropriate but sleepy. CT brain showing no acute process. (5) Community acquired pneumonia: Code(s): J18.9 - Pneumonia, unspecified organism Status: Acute Assessment and Plan: CXR bilateral right greater than left airspace disease that has progressed to diffuse disease. Antibiotics adjusted. As above. (6) Leukopenia: Code(s): D72.819 - Decreased white blood cell count, unspecified Status: Acute Assessment and Plan: WBC at 1.3K with ANC 1100. Etiology unclear but could be related to profound sepsis. Procalcitonin and CRP elevated. WBC better today but on steroids. (7) Thrombocytopenia: Code(s): D69.6 - Thrombocytopenia, unspecified Status: Acute Assessment and Plan: Platelet count 111K. Could be chronic but concerning for overwhelming sepsis. Repeat platelet count down to 98K. 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 He has chronic tingling in his hands bilaterally
--- NOTE | 2021-08-15 15:21 | PM.PNCARD ---
Progress Note: A&P Assessment and Plan (1) Acute coronary syndrome: Code(s): I24.9 - Acute ischemic heart disease, unspecified Status: Acute Assessment and Plan: Acute inferior RI occurring while admitted in the ICU for pneumonia and sepsis. Troponin level peaked at 11.9 and is downtrending today. ECG still with evidence of inferior RI with mild ST elevations in leads II, III and aVF with reciprocal changes in aVL. Remains hemodynamically stable. No plan for cardiac cath today, perhaps this can be considered when he has had some improvement of his overall clinical picture. Continue ASA for now. (2) Elevated troponin: Code(s): R77.8 - Other specified abnormalities of plasma proteins Status: Acute Assessment and Plan: As above. Subjective Date/time seen: 08/15/21 15:21 Cardiology follow up for acute RI No acute events overnight. Remains intubated, sedated. Vasopressors are being weaned. Daughter and are at the bedside. Review of Systems Review of Systems: ROS unobtainable: Yes unobtainable due to endotracheal tube Exam Const: Other: male intubated and on mechanical ventilatory support. HENMT: Mouth: Yes moist mucous membranes Eyes: Sclera: sclerae normal Neck: Neck: supple Resp: Auscultation: rhonchi Cardio: Rate: regular rate Rhythm: regular rhythm Heart sounds: S1 normal heart sound present, S2 normal heart sound present and no murmurs GI: Auscultation: normal bowel sounds Urinary Catheter: Urinary Catheter: patent and draining Skin: General skin exam: normal color Neuro: Other: Sedated on the ventilator Extrem: Other: No edema distal pulses are intact Objective Data Vital Signs Vital Signs: Vital Signs - 24 hr 08/14/21 15:23 08/14/21 15:41 08/14/21 16:01 Temperature Pulse Rate 103 H 105 H 118 H Respiratory Rate 25 H 25 H Blood Pressure 102/81 Pulse Oximetry Oxygen Delivery Fraction of Inspired Oxygen 08/14/21 16:01 08/14/21 16:00 08/14/21 16:00 Temperature Pulse Rate 118 H 117 H 117 H Respiratory Rate 25 H 32 H Blood Pressure Pulse Oximetry 93 Oxygen Delivery Mechanical Ventilation Fraction of Inspired Oxygen 70 08/14/21 16:00 08/14/21 16:00 08/14/21 17:44 Temperature 37.1 C Pulse Rate 117 H 123 H Respiratory Rate 32 H Blood Pressure 126/93 H Pulse Oximetry 32 L 96 Oxygen Delivery Mechanical Ventilation Fraction of Inspired Oxygen 70 60 08/14/21 18:00 08/14/21 18:00 08/14/21 20:05 Temperature 37.2 C Pulse Rate 121 H 122 H 117 H Respiratory Rate 25 H Blood Pressure 111/80 121/80 Pulse Oximetry 96 Oxygen Delivery Fraction of Inspired Oxygen 08/14/21 20:00 08/14/21 20:00 08/14/21 20:00 Temperature Pulse Rate 117 H 117 H Respiratory Rate 25 H Blood Pressure Pulse Oximetry 96 Oxygen Delivery Mechanical Ventilation Fraction of Inspired Oxygen 60 60 08/14/21 20:00 08/14/21 22:06 08/14/21 22:00 Temperature 37.2 C Pulse Rate 117 H 122 H 122 H Respiratory Rate 25 H Blood Pressure 122/83 114/73 Pulse Oximetry 97 Oxygen Delivery Fraction of Inspired Oxygen 08/14/21 22:00 08/14/21 22:44 08/14/21 23:37 Temperature 37.2 C Pulse Rate 122 H 118 H 117 H Respiratory Rate 25 H Blood Pressure 114/73 114/74 117/75 Pulse Oximetry 94 Oxygen Delivery Fraction of Inspired Oxygen 08/14/21 20:00 08/14/21 20:00 08/14/21 20:20 Temperature Pulse Rate 117 H 117 H 117 H Respiratory Rate 25 H 25 H Blood Pressure Pulse Oximetry 95 Oxygen Delivery Mechanical Ventilation Fraction of Inspired Oxygen 60 08/14/21 23:10 08/15/21 00:00 08/15/21 00:00 Temperature Pulse Rate 120 H 116 H 117 H Respiratory Rate 25 H Blood Pressure Pulse Oximetry 96 96 Oxygen Delivery Mechanical Ventilation Mechanical Ventilation Fraction of Inspired Oxygen 60 60 08/15/21 00:00 08/15/21 00:
[2021-08-15 16:48] LABS: Pneumococcal Antigen Urine Not Detected (Not Detected)
[2021-08-15 17:27] LABS: Glucose Point of Care 138 mg/dl (65-105)
[2021-08-15] MEDS: DOCUSATE SODIUM LIQ 100 MG/10 ML UDC PO (20:27)
[2021-08-15] MEDS: NEOMYCIN/POLYMYXIN/BACITRACIN OINTMENT PACKET 1 PACKET TOPICAL (20:28)
[2021-08-15] MEDS: MIDAZOLAM 100MG/NS 100ML(*CRX) 100 MG/100 ML BAG IV CONT (20:36)
[2021-08-15 23:53] LABS: Glucose Point of Care 118 mg/dl (65-105)
[2021-08-16] VITALS (41 sets, daily range): BP systolic 105–161; BP diastolic 11–102; PULSE 81–124; RESP 24–96; TEMP 36.5–37; O2SAT 94–98
[2021-08-16] MEDS: ALBUMIN HUMAN 25% 25 GM/100 ML 100 ML IVPB ×5 (00:11→23:09)
[2021-08-16] MEDS: DOBUTamine 250 MG/D5W 250 ML 250 MG/250 ML BAG 23.52 MG IV CONT ×3 (01:17→23:19)
[2021-08-16] MEDS: LACTATED RINGERS 1,000 ML 75 ML IV CONT ×2 (01:18→23:17)
[2021-08-16] MEDS: FENTANYL 2,500MCG/NS250ML(*CRX 2,500 MCG/250 ML BAG 7.5 MCG IV CONT (01:25)
[2021-08-16] MEDS: ALBUTEROL SULFATE NEB 2.5 MG/3 ML INH 5 MG INHALATION ×4 (02:39→19:15)
[2021-08-16] MEDS: IPRATROPIUM BR 0.02% INH SOLN 0.5 MG/2.5 ML VIAL INHALATION ×4 (02:39→19:15)
[2021-08-16 04:47] LABS: Hematocrit 28.9 % (42.0-52.0); Hemoglobin 9.2 g/dL (14.0-18.0); Immature Platelet Fraction Pct 21.6 % (0.9-11.2); Mean Corpuscular HGB Conc 31.8 g/dl (32-36); Mean Corpuscular Hemoglobin 31.6 pg (26-34); Mean Corpuscular Volume 99.3 fl (80-100); Mean Platelet Volume 14.1 fl (7.4-10.4); Platelet Count Result 44 k/mm3 (150-375); Red Blood Count 2.91 M/mm3 (4.6-6.20); Red Cell Distribution Width 14.9 % (11.5-14.5); White Blood Count 14.2 K/mm3 (4.5-10.0)
[2021-08-16 04:58] LABS: Alanine Aminotransferase 28 U/L (6-50); Albumin Level 3.4 g/dL (3.5-5.1); Alkaline Phosphatase 80 U/L (38-126); Anion Gap 6 mmol/L (8-16); Aspartate Amino Transferase 58 U/L (17-59); Bilirubin,Total 0.8 mg/dL (0.2-1.3); Blood Urea Nitrogen 58 mg/dL (9-20); Calcium 8.2 mg/dL (8.4-10.2); Carbon Dioxide 30 mmol/L (22-30); Chloride 105 mmol/L (98-107); Estimated CRCL calculation 54 ml/min; Estimated Glomerular Filt Rate 60; Glucose 141 mg/dL (65-110); Magnesium 2.4 mg/dL (1.6-2.3); Phosphorus 1.5 mg/dL (2.5-4.5); Sodium 141 mmol/L (137-145)
[2021-08-16 05:53] LABS: Alveolar/Arterial O2 Gradient 71.2 mmHg; Base Excess ABG 2.1 mEq/l (+/-2.0); Carboxyhemoglobin 0.3 % THb (0-2.0); HCO3 ABG 27.9 mEq/l (22.0-26.0); Methemoglobin ABG 0.4 %THb (0-1.5); Oxygen Content ABG 17.5 %vol (16.0-22.0); Oxygen Saturation ABG 96.3 % (95.0-100.0); Oxyhemoglobin 95.5 % THb (90.0-100.0); PCO2 ABG 48.3 mmHg (35.0-45.0); PO2 FiO2 Ratio Arterial Blood 2.87 %; Reduced Hemoglobin 3.8 %THb (0-5.0)
[2021-08-16 05:54] LABS: Modified Allen's Test Pass; Site Drawn RIGHT RADIAL
[2021-08-16 05:55] LABS: Device VENTILATOR
[2021-08-16 05:57] LABS: Arterial Blood Gas PEEP 12 cmH2O; Arterial Blood Gas Tidal Volume 450 ml; Arterial Blood Gas Vent Mode CMV; Arterial Blood Gas Ventilator rate 25 /MIN; Fractional Inspired Oxygen 45 %
[2021-08-16] MEDS: CENTRAL LINE FLUSH 10 ML IV PUSH ×3 (06:14→20:43)
[2021-08-16] MEDS: HYDROCORTISONE SODIUM SUCCINATE 100 MG/2 ML VIAL IV PUSH (06:14)
[2021-08-16] MEDS: LEVOTHYROXINE SODIUM 25 MCG TABLET FEED TUBE (06:14)
[2021-08-16 07:03] LABS: Legionella pneumophila Ag Ur Not Detected (Not Detected)
[2021-08-16] MEDS: PANTOPRAZOLE SODIUM IV 40 MG VIAL IV PUSH (09:20)
[2021-08-16] MEDS: DOCUSATE SODIUM LIQ 100 MG/10 ML UDC PO ×2 (09:20→20:42)
[2021-08-16] MEDS: polyethylene glycoL 3350 17 GM POWD.PACK PO (09:20)
[2021-08-16] MEDS: MINERAL OIL/WHITE PETROLATUM OINTMENT 1 APPLIC EACH EYE ×2 (09:20→20:43)
[2021-08-16] MEDS: POTASSIUM/PHOSPHORUS/SODIUM 1.5 GM PACKET 1 PACKET PO (09:29)
[2021-08-16 09:41] LABS: Vancomycin Trough 7.2 ug/mL (10.0-20.0)
--- NOTE | 2021-08-16 10:43 | PCFNICU ---
ICU Rounding Note: Pt current nutrition is Vital AF 1.2 at 75 ml/hr over 22 hours. Last recorded weight is 83 kg, up from 78.4 kg on admit. Bowel Motility: +Bm reported 08/15 Labs Reviewed:PO4 1.5, BUN 58, Alb 3.4,Hgb 9.2,Hct 28.9 Meds Noted:Vancomycin, Fentanyl, Versed, LR, Atrovent, Protonix, Solu Cortef, Reglan, Colace, Miralax,Maxipime Skin: Deep Tissue injury reported-coccyx Additional Notes: Patient remains on mechanical vent. Tube feedings on hold due to elevated residuals. Plans for Obstructive series today. Reglan to start for GI motility. Free water flush 30 ml q 4 hours. Agree with diet orders. Monitoring: Following daily in ICU rounds and reassessing every Saturday and Saturday.
[2021-08-16 11:21] LABS: Glucose Point of Care 149 mg/dl (65-105)
[2021-08-16] MEDS: METOCLOPRAMIDE HCL INJ 10 MG/2 ML VIAL IV PUSH (11:29)
--- NOTE | 2021-08-16 14:06 | WPDINTPN ---
Progress Note: A&P Assessment and Plan (1) Acute respiratory failure: Code(s): J96.00 - Acute respiratory failure, unspecified whether with hypoxia or hypercapnia Status: Acute Assessment and Plan: Acute Respiratory failure secondary to pneumonia which could be aspiration versus community-acquired 08/13 Patient was emergently intubated in ICU CT scan showed Diffuse ground-glass and consolidative opacities. -remains on CMV mode of ventilation, 45% FiO2, peep of 12. Will decrease PEEP to 10 ABGs reviewed Chest x-ray this morning showed No significant change in extensive diffuse bilateral lung disease which could represent pneumonia, pulmonary edema or combination thereof. Continue full mechanical ventilation support to prevent hypoxemia/hypercarbia and end organ damage. Low tidal volume ventilation strategy to prevent volutrauma Continue Bronchodilators Not a candidate for weaning at this time Decrease IV fluids due to component of pulmonary edema (2) Septic shock: Code(s): A41.9 - Sepsis, unspecified organism; R65.21 - Severe sepsis with septic shock Status: Acute Assessment and Plan: Septic along with cardiogenic shock secondary to pneumonia, possible cardiogenic component -UA negative -Pending urine Legionella and pneumococcal antigen -08/13: Blood cultures negative x2 -continue broad-spectrum antibiotics in the form of vancomycin, cefepime and azithromycin (08/13) -patient has received adequate fluids since admission -OFF Levophed and vasopressin -likely cardiogenic shock given right sided dysfunction on echocardiogram -remains on dobutamine with improvement in urine output, creatinine and lactic acid -continue albumin for now -will wean stress dose steroids 08/13 Central venous catheter was placed emergently in right femoral area for vasopressors. Patient has history of surgery on his jugular veins due to his throat cancer 08/14 echocardiogram: Showed EF of 40-45%, posterior and inferior segments are hyperdynamic, right ventricle chamber is severely enlarged, right ventricular systolic function is reduced (3) Pneumonia: Code(s): J18.9 - Pneumonia, unspecified organism Status: Acute Assessment and Plan: See above (4) Altered mental status: Code(s): R41.82 - Altered mental status, unspecified Status: Acute Assessment and Plan: Likely toxic metabolic encephalopathy from sepsis hypertension hypoxia and then he has received some Ativan and morphine He is now sedated for mechanical ventilation Unremarkable head CT Normal ammonia level Normal TSH level (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 PEG tube was flushed and aspirated with saline multiple times appears that it is now working in both directions. Will switch tube feeds to PEG tube. If the no issues will remove OG tube -GI has been consulted for exchange of PEG tube (6) Thrombocytopenia: Code(s): D69.6 - Thrombocytopenia, unspecified Status: Acute Assessment and Plan: Not sure of chronicity Again could be related to sepsis, medications Monitor and transfuse if needed Hold anticoagulation at this time (7) Leukopenia: Code(s): D72.819 - Decreased white blood cell count, unspecified Status: Acute Assessment and Plan: Resolved -likely due to septic shock -WBC count is 14.2 this morning which could also be related to steroids (8) History of throat cancer: Code(s): Z85.819 - Personal history of malignant neoplasm of unspecified site of lip, oral cavity, and pharynx Status: Acute Assessment and Plan: He had multiple surgeries and radiation for it and as per his his last treatment was 3 years ago
--- NOTE | 2021-08-16 16:12 | WPDGICN ---
Assessment and Plan Assessment and plan (1) Malfunction of gastrostomy tube: Code(s): K94.23 - Gastrostomy malfunction Status: Acute Assessment and Plan: I talked to , Dr Sykes has seen him before and was placed about 2.5 years ago I will try to exchange tomorrow at bedside patient probably has ileus from sepsis/respiratory failure and has NGT by suction now- G-tube has not working right (2) Septic shock: Code(s): A41.9 - Sepsis, unspecified organism; R65.21 - Severe sepsis with septic shock Status: Acute Assessment and Plan: by drier (3) Acute coronary syndrome: Code(s): I24.9 - Acute ischemic heart disease, unspecified Status: Acute Assessment and Plan: cardiology on board (4) Sepsis associated hypotension: Code(s): A41.9 - Sepsis, unspecified organism; I95.9 - Hypotension, unspecified Status: Acute Assessment and Plan: medical treatment (5) History of throat cancer: Code(s): Z85.819 - Personal history of malignant neoplasm of unspecified site of lip, oral cavity, and pharynx Status: Acute Assessment and Plan: this caused superintendent terminal dysphagia (6) Community acquired pneumonia: Code(s): J18.9 - Pneumonia, unspecified organism Status: Acute Assessment and Plan: on antibiotics (7) Respiratory failure: Code(s): J96.90 - Respiratory failure, unspecified, unspecified whether with hypoxia or hypercapnia Status: Acute (8) Elevated troponin: Code(s): R77.8 - Other specified abnormalities of plasma proteins Status: Acute (9) Ileus: Code(s): K56.7 - Ileus, unspecified Status: Acute GI Consult Note Consult date/time: 08/16/21 16:12 Reason for consult: g-tube malfunctioning HPI: Mal Akhtar is a 66 year old male with hx of throat cancer s/p G Tube placed about 2.5 years ago and managed by Dr Sykes, aspiration PNA, hypothyroidism, BPH and GERD admitted to hospital few days ago with worsening SOB.? Diagnosed with throat CA 5 years ago treated with surgery (partial tongue resection and jugular vein resection) and XRT, did not require chemo therefore developed dysphagia and previous aspiration PNA. He normally has isosource 1.5 avelina with 6 bottles per day (250ml) and does not eat orally due to aspiration. He was diagnosed with septic shock, NSTEMI, acute kidney injury, patient's troponin peaked at 11.9 on 08/14/2021, intubated 08/13/2021. I was called because RN noted clogged tube specially after suctioning out, NGT is in place because had large residuals. Review of Systems Review of Systems: ROS unobtainable: Yes unobtainable due to endotracheal tube, unobtainable due to medical condition and unobtainable due to mental status PMFSH Past Medical History Medical History (Updated 08/16/21 @ 16:20 by Colin Shahid MD) Cervical spine disease Gastrostomy tube dependent GERD (gastroesophageal reflux disease) History of throat cancer XRT and surgery Hypothyroid Malfunction of gastrostomy tube Spina bifida as a child with surgery; residual 'bladder issues' Surgical History Surgical History History of ear, nose, and throat (ENT) surgery Family History Family History Mother Colon cancer Social History Social History Social History: Lives at home with . Never smoked. No alcohol and drug use. Full code. would be the Individual would make medical decisions for him if he is unable Smoking status: Never smoker Alcohol intake: unknown Substance use: never Substance use type: does not use Spiritual care concerns: No Meds Home Medications and Allergies Home Medications Medication Instructions Recorded Confirmed Type diazepam 10 mg tablet 10 mg feeding tube QPM M
[2021-08-16 16:45] LABS: Glucose Point of Care 127 mg/dl (65-105)
--- NOTE | 2021-08-16 19:23 | PM.IMPN ---
Progress Note: A&P Assessment and Plan (1) Septic shock: Code(s): A41.9 - Sepsis, unspecified organism; R65.21 - Severe sepsis with septic shock Status: Acute Assessment and Plan: Patient was hypotensive on admission felt related to pneumonia. Patient met sepsis criteria on admission with tachypnea tachycardia, hypotension and fever. He also has leukopenia felt related to the sepsis and lactic acidosis. Patient moved to the ICU. Blood cultures no growth to date. White count improved felt related to the steroids. He was weaned off vasopressin on 08/14 and Levophed on 08/15. Appreciate computer numerical control programmer input. (2) Acute respiratory failure: Code(s): J96.00 - Acute respiratory failure, unspecified whether with hypoxia or hypercapnia Status: Acute Assessment and Plan: Patient with acute respiratory failure felt related to pneumonia. He has known chronic secretion production probably related to esophageal stricture and chronic aspiration. He also drinks water on occasion for oral medications. CTA chest 08/14 showing extensive bilateral PNA worse in the LLL. Continue supportive care. Continue IV abx and nebulizer treatments. (3) Acute coronary syndrome: Code(s): I24.9 - Acute ischemic heart disease, unspecified Status: Acute Assessment and Plan: Patient had mildly elevated troponins on admission that worsened. Changes noted on telemetry and EKG obtained showing ST elevation in the inferior leads consistent with STEMI. Cardiology was consulted but STEMI team not activated due to the severity of the patient's condition at the time. Aspirin was added. Echocardiogram shows EF of 40-45%, posterior inferior segments are hypodynamic, severely enlarged right ventricle with reduced systolic RV function. Cardiology felt that the severely dilated right ventricle is chronic which could be related to pulmonary hypertension from chronic aspiration (PAP could not be evaluated). CTA chest negative for DVT and LE venous doppler negative for DVT. Hear cath when patient more stable. (4) Ileus: Code(s): K56.7 - Ileus, unspecified Status: Acute Assessment and Plan: patient has developed an ileus. KUB shows mild gaseous distension of the ascending and transverse colon. NG tube secured to suction. Monitor clinically. Repeat x-ray in the morning. tube feedings on hold (5) Pneumonia: Code(s): J18.9 - Pneumonia, unspecified organism Status: Acute Assessment and Plan: CXR bilateral right greater than left airspace disease that has progressed to diffuse disease. CTA chest as mentioned above. Continue current abx. (6) Altered mental status: Code(s): R41.82 - Altered mental status, unspecified Status: Acute Assessment and Plan: Patient had decreased responsiveness on presentation to the ED. His states the patient was appropriate but sleepy. CT brain showing no acute process. Reassess once he is off sedation. Continue sedation holidays. (7) Leukopenia: Code(s): D72.819 - Decreased white blood cell count, unspecified Status: Acute Assessment and Plan: WBC at 1.3K with ANC 1100. Etiology unclear but could be related to profound sepsis. Procalcitonin and CRP elevated. WBC better felt related to steroids. (8) Thrombocytopenia: Code(s): D69.6 - Thrombocytopenia, unspecified Status: Acute Assessment and Plan: Platelet count low on admission and dropping. [place] related to consumption from overwhelming sepsis. Repeat platelet count down to 44K. Follow (9) Cervical spine disease: Code(s): M48.9 - Spondylopathy, unspecified Status: Acute Assessment and Plan: Patient has some form of cervical disease possibly related to his radiation. He has chronic tingling in his hands bilaterally. He has also had progressive weakness in his legs according to his resulting in his need to u
[2021-08-16] MEDS: HYDROCORTISONE SODIUM SUCCINATE 100 MG/2 ML VIAL 50 MG IV PUSH (20:43)
[2021-08-16] MEDS: METOCLOPRAMIDE HCL INJ 10 MG/2 ML VIAL 5 MG IV PUSH (20:54)
[2021-08-16] MEDS: MIDAZOLAM 100MG/NS 100ML(*CRX) 100 MG/100 ML BAG IV CONT (23:08)
[2021-08-16 23:26] LABS: Glucose Point of Care 141 mg/dl (65-105)
[2021-08-17] VITALS (44 sets, daily range): BP systolic 68–155; BP diastolic 52–116; PULSE 82–185; RESP 24–30; TEMP 36.5–37.5; O2SAT 93–98
[2021-08-17] MEDS: IPRATROPIUM BR 0.02% INH SOLN 0.5 MG/2.5 ML VIAL INHALATION ×4 (01:05→20:22)
[2021-08-17] MEDS: ALBUTEROL SULFATE NEB 2.5 MG/3 ML INH 5 MG INHALATION ×4 (01:05→20:22)
[2021-08-17] MEDS: FENTANYL 2,500MCG/NS250ML(*CRX 2,500 MCG/250 ML BAG 10 MCG IV CONT (05:02)
[2021-08-17] MEDS: LACTATED RINGERS 1,000 ML 75 ML IV CONT (05:05)
[2021-08-17] MEDS: ALBUMIN HUMAN 25% 25 GM/100 ML 100 ML IVPB ×3 (05:11→18:50)
[2021-08-17] MEDS: CENTRAL LINE FLUSH 10 ML IV PUSH ×3 (05:12→21:28)
[2021-08-17 05:13] LABS: Alveolar/Arterial O2 Gradient 189.2 mmHg; Base Excess ABG 4.1 mEq/l (+/-2.0); Carboxyhemoglobin 0.2 % THb (0-2.0); Device VENTILATOR; Fractional Inspired Oxygen 45 %; HCO3 ABG 29.2 mEq/l (22.0-26.0); Methemoglobin ABG 0.6 %THb (0-1.5); Modified Allen's Test Pass; Oxygen Content ABG 14.3 %vol (16.0-22.0); Oxygen Saturation ABG 95.8 % (95.0-100.0); Oxyhemoglobin 94.6 % THb (90.0-100.0); PO2 ABG 79.3 mmHg (80.0-100.0); PO2 FiO2 Ratio Arterial Blood 1.76 %; Reduced Hemoglobin 4.6 %THb (0-5.0); Site Drawn RIGHT RADIAL; Total Hemoglobin 10.7 g/dL (12.0-18.0)
[2021-08-17 05:14] LABS: Arterial Blood Gas PEEP 12 cmH2O; Arterial Blood Gas Tidal Volume 450 ml; Arterial Blood Gas Vent Mode CMV; Arterial Blood Gas Ventilator rate 25 /MIN
[2021-08-17 05:28] LABS: Hematocrit 31.1 % (42.0-52.0); Immature Platelet Fraction Pct 21.2 % (0.9-11.2); Mean Corpuscular HGB Conc 32.2 g/dl (32-36); Mean Corpuscular Hemoglobin 31.8 pg (26-34); Mean Platelet Volume 14.4 fl (7.4-10.4); Platelet Count Result 46 k/mm3 (150-375); Red Blood Count 3.14 M/mm3 (4.6-6.20); Red Cell Distribution Width 15.1 % (11.5-14.5); White Blood Count 12.6 K/mm3 (4.5-10.0)
[2021-08-17 05:41] LABS: Alanine Aminotransferase 24 U/L (6-50); Alkaline Phosphatase 85 U/L (38-126); Anion Gap 4 mmol/L (8-16); Aspartate Amino Transferase 28 U/L (17-59); Bilirubin,Total 1.1 mg/dL (0.2-1.3); Blood Urea Nitrogen 51 mg/dL (9-20); Calcium 8.4 mg/dL (8.4-10.2); Carbon Dioxide 33 mmol/L (22-30); Chloride 104 mmol/L (98-107); Estimated CRCL calculation 76 ml/min; Estimated Glomerular Filt Rate > 60; Glucose 114 mg/dL (65-110); Magnesium 2.3 mg/dL (1.6-2.3); Potassium 3.9 mmol/L (3.4-5.0); Sodium 141 mmol/L (137-145)
[2021-08-17 05:42] LABS: Lactic Acid Reflex 1.3 mmol/L (0.7-2.0)
--- NOTE | 2021-08-17 08:29 | WPDINTPN ---
Progress Note: A&P Assessment and Plan (1) Acute respiratory failure: Code(s): J96.00 - Acute respiratory failure, unspecified whether with hypoxia or hypercapnia Status: Acute Assessment and Plan: Acute Respiratory failure secondary to pneumonia which could be aspiration versus community-acquired 08/13 Patient was emergently intubated in ICU CT scan showed Diffuse ground-glass and consolidative opacities. -remains on CMV mode of ventilation, 45% FiO2, peep of 12. Will decrease PEEP to 10 today ABGs reviewed Chest x-ray this morning showed: Persistent extensive patchy bilateral lung disease most likely multifocal pneumonia with differential including pulmonary edema.Endotracheal tube tip 6.7 cm above the doug. Consider advancement by 4.5 cm. Continue full mechanical ventilation support to prevent hypoxemia/hypercarbia and end organ damage. Low tidal volume ventilation strategy to prevent volutrauma Continue Bronchodilators Not a candidate for weaning at this time Also will discontinue IV fluids -will diurese patient today -persistent infiltrates, will have pulmonology evaluate the patient for possible bronchoscopy (2) Septic shock: Code(s): A41.9 - Sepsis, unspecified organism; R65.21 - Severe sepsis with septic shock Status: Acute Assessment and Plan: Septic along with cardiogenic shock secondary to pneumonia, possible cardiogenic component -UA negative - urine Legionella and pneumococcal antigen: Not detected -08/13: Blood cultures negative x2 -continue vancomycin, cefepime and azithromycin (started on ) -patient has received adequate fluids since admission -OFF Levophed and vasopressin -likely cardiogenic shock given right sided dysfunction on echocardiogram secondary to STEMI -remains on dobutamine with improvement in urine output, creatinine and lactic acid. Will decrease dobutamine to 2.5 mcg/kg/min -continue to wean stress dose steroids -will discontinue albumin today 08/15: PICC line was inserted, femoral line was removed 08/14 echocardiogram: Showed EF of 40-45%, posterior and inferior segments are hyperdynamic, right ventricle chamber is severely enlarged, right ventricular systolic function is reduced (3) Pneumonia: Code(s): J18.9 - Pneumonia, unspecified organism Status: Acute Assessment and Plan: See above (4) Altered mental status: Code(s): R41.82 - Altered mental status, unspecified Status: Acute Assessment and Plan: Likely toxic metabolic encephalopathy from sepsis hypertension hypoxia and then he has received some Ativan and morphine He is now sedated for mechanical ventilation, opening eyes and following commands Unremarkable head CT Normal ammonia level Normal TSH level (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 PEG tube was flushed and aspirated with saline multiple times appears that it is now working in both directions. Will switch tube feeds to PEG tube. If the no issues will remove OG tube -appreciate GI following, peg tube will be exchanged today per GI has G-tube is not working properly (6) Thrombocytopenia: Code(s): D69.6 - Thrombocytopenia, unspecified Status: Acute Assessment and Plan: Not sure of chronicity Again could be related to sepsis, medications Monitor and transfuse if needed Hold anticoagulation at this time (7) Leukopenia: Code(s): D72.819 - Decreased white blood cell count, unspecified Status: Acute Assessment and Plan: Resolved -likely due to septic shock -WBC count is 12.6 this morning (8) History of throat cancer: Code(s): Z85.819 - Personal history of malignant neoplasm of unspecified site of lip, oral cavit
[2021-08-17] MEDS: FUROSEMIDE INJ 40 MG/4 ML VIAL IV PUSH (08:47)
[2021-08-17] MEDS: POTASSIUM PHOS,M-BASIC-D-BASIC 20 MMOL in SODIUM CHLORIDE 0.9% IV 250 ML 64.17 MMOL IVPB (09:01)
[2021-08-17] MEDS: PANTOPRAZOLE SODIUM IV 40 MG VIAL IV PUSH (09:05)
[2021-08-17] MEDS: METOCLOPRAMIDE HCL INJ 10 MG/2 ML VIAL 5 MG IV PUSH ×2 (09:05→21:35)
[2021-08-17] MEDS: HYDROCORTISONE SODIUM SUCCINATE 100 MG/2 ML VIAL 50 MG IV PUSH (09:05)
[2021-08-17] MEDS: MINERAL OIL/WHITE PETROLATUM OINTMENT 1 APPLIC EACH EYE ×2 (09:05→21:30)
--- NOTE | 2021-08-17 09:20 | PM.IMPN ---
Progress Note: A&P Assessment and Plan (1) Septic shock: Code(s): A41.9 - Sepsis, unspecified organism; R65.21 - Severe sepsis with septic shock Status: Acute Assessment and Plan: Patient was hypotensive on admission felt related to pneumonia. Patient met sepsis criteria on admission with tachypnea, tachycardia, hypotension and fever. He also has leukopenia felt related to the sepsis and lactic acidosis. Patient moved to the ICU. Blood cultures no growth to date. White count improved felt related to the steroids. He was weaned off vasopressin on 08/14 and Levophed on 08/15. Appreciate copy director input. (2) Acute respiratory failure: Code(s): J96.00 - Acute respiratory failure, unspecified whether with hypoxia or hypercapnia Status: Acute Assessment and Plan: Patient with acute respiratory failure felt related to pneumonia. He has known chronic secretion production probably related to esophageal stricture and chronic aspiration. He also drinks water on occasion for oral medications. CTA chest 08/15 showing persistent extensive bilateral PNA worse in the LLL. Continue supportive care. Continue IV abx and nebulizer treatments. (3) Acute coronary syndrome: Code(s): I24.9 - Acute ischemic heart disease, unspecified Status: Acute Assessment and Plan: Patient had mildly elevated troponins on admission that worsened. Changes noted on telemetry and EKG obtained showing ST elevation in the inferior leads consistent with STEMI. Cardiology was consulted but STEMI team not activated due to the severity of the patient's condition at the time. Aspirin was added but held due to TCP. Echocardiogram shows EF of 40-45%, posterior inferior segments are hypodynamic, severely enlarged right ventricle with reduced systolic RV function. Cardiology felt that the severely dilated right ventricle is chronic which could be related to pulmonary hypertension from chronic aspiration (PAP could not be evaluated). CTA chest negative for DVT and LE venous doppler negative for DVT. Heart cath when patient more stable. metoprolol to be added. LFTs okay so will add Lipitor as well. (4) Ileus: Code(s): K56.7 - Ileus, unspecified Status: Acute Assessment and Plan: Patient has developed an ileus. KUB showed mild gaseous distension of the ascending and transverse colon. NG tube secured to suction. Repeat x-ray this morning reviewed showing nonspecific abdomen. Resume TF once GTube has been replaced. (5) Pneumonia: Code(s): J18.9 - Pneumonia, unspecified organism Status: Acute Assessment and Plan: CXR bilateral right greater than left airspace disease that has progressed to diffuse disease. CTA chest as mentioned above. Continue current abx. (6) Altered mental status: Code(s): R41.82 - Altered mental status, unspecified Status: Acute Assessment and Plan: Patient had decreased responsiveness on presentation to the ED. His states the patient was appropriate but sleepy. CT brain showing no acute process. Reassess once he is off sedation. Continue sedation holidays. (7) Leukopenia: Code(s): D72.819 - Decreased white blood cell count, unspecified Status: Acute Assessment and Plan: WBC at 1.3K with ANC 1100. Etiology unclear but could be related to profound sepsis. Procalcitonin and CRP elevated. WBC better felt related to steroids. Wean steroids. (8) Thrombocytopenia: Code(s): D69.6 - Thrombocytopenia, unspecified Status: Acute Assessment and Plan: Platelet count low on admission and dropping. [place] related to consumption from overwhelming sepsis. Repeat platelet count stable at 46K. Follow. (9) Gastrostomy tube dependent: Code(s): Z93.1 - Gastrostomy status Status: Acute Assessment and Plan: Patient has G-tube in place. He is G-tube dependent. Tube feedings held due to high re
[2021-08-17] MEDS: DOBUTamine 250 MG/D5W 250 ML 250 MG/250 ML BAG 11.76 MG IV CONT (10:37)
--- NOTE | 2021-08-17 10:40 | PCFNICU ---
ICU Rounding Note: Pt current nutrition is Vital 1.2, currently on hold due to high residuals and clogged tube. Nutrition recommendation: Resume tube feeds once new tube is placed. Last recorded weight is 86.1 kg - up from 83kg. Bowel Motility: +BM reported 08/16 Labs Reviewed: Hgb:10, HCT:31.1, BUN:51, glu:114 Meds Noted: versed. Reglan, colace, miralax Skin: Deep tissue injury to coccyx Additional Notes: Pt remains on mechanical vent. Tube feeds remain on hold for new tube placement today. Agree with diet order. Following daily in ICU rounds. Will monitor every Saturday and Saturday.
[2021-08-17 11:48] LABS: Glucose Point of Care 114 mg/dl (65-105)
--- NOTE | 2021-08-17 12:00 | PM.CNPUL ---
Assessment and Plan Assessment and plan (1) Pneumonia: Code(s): J18.9 - Pneumonia, unspecified organism Status: Acute Assessment and Plan: 66-year-old man with a history of throat cancer status post PEG placement with aspiration pneumonias in the past. Currently presents with pneumonia, septic shock followed by acute AK. Patient was treated with broad-spectrum antibiotics and remains on vancomycin, cefepime and azithromycin. His shock is improved and he is no longer on pressors. He remains on dobutamine. He remains intubated with improving oxygenation over the last 72 hours and is currently on CMV tidal volume 450, 45% and 10 of peep. His blood gas this morning on 45% and 12 of peep was 7.42/46/79. His chest x-ray demonstrates persistent bilateral interstitial alveolar infiltrates. Sputum from 08/16/2021 shows white blood cells, no organisms seen. Blood cultures from 08/13 demonstrate No growth. Start RT PCR study on 08/13 was negative. Influenza swab on 08/13 was negative. Urine Legionella urine pneumococcal studies are negative on 08/13/2021. I suspect the patient's current illnesses related to pneumonia from aspiration or aspiration pneumonitis with a development of septic shock, acute AK and ARDS. The patient may also have a component of fluid overload as he is 16 L positive and is currently receiving his 1st dose of Lasix today. Overall the patient has improved from a respiratory component in his currently on 45% and 10 of peep. ventilator management per machine clothing worker. He is on vancomycin started 08/13, cefepime started 08/13, and azithromycin started 08/13. would continue azithromycin for a total of 5 days. Patient has been on broad-spectrum antibiotics and at this time his infiltrates are not worsening. At this time there is no indication for bronchoscopy. Discussed with Dr. Cueto and Fariba. will follow with you. History of Present Illness History of Present Illness Consult date: 08/17/21 Chief complaint: Community-acquired Pneumonia,Respiratory Failure Narrative: 08/17/2021: This is a new pulmonary consult for pneumonia. 58-year-old male with a history of throat cancer status post G-tube placement, history of aspiration pneumonia, hypothyroidism, GERD, BPH who presented to the emergency room on 08/13/2021 with fever, tachypnea, decreased mental status, hypotension and respiratory failure requiring BiPAP. Patient remained hypotensive despite IV fluids and moves moved to the ICU where he was intubated and developed septic shock requiring pressors. Patient then had an acute inferior myocardial infarction and was deemed he was not an acceptable candidate for emergent angiography per Cardiology. Patient was treated with broad-spectrum antibiotics, pressors, dobutamine. patient's last fever was on 08/13/2021. On 08/14/2021 the patient was on 70% FiO2 and a peep of 12. 08/15/2021 creatinine was 1.5. White blood cell count on 08/16/2021 was 14.2. 08/17/2021: Patient remains intubated and sedated with fentanyl and Versed. Patient is on dobutamine. He is able to flutter is eyes, make up editor my hands and wiggles toes to verbal commands. He is on 45% FiO2 and a peep of 12. White blood cell count today is 12.6. He is afebrile. He is 16.3 L positive since admission. Lasix 40 mg IV has been given today. Creatinine today is 0.9. DATA: EXAMINATION: CTA chest PE protocol DATE: 08/14/2021 13:42 INDICATION: Respiratory failure. Aspiration. Pneumonia. History of throat cancer. TECHNIQUE: Computed tomography angiography (CTA) of the chest was performed with 100 mL Omnipaque-350 intravenous contrast timed to evaluate the pulmonary arteries. Coronal maximum intensity projection 3D-reconstructions were created by the technologist. Automated exposure control and iterative reconstruction technique were employed. Exam dose:? 686.42 mGy-cm total exam DLP.? COMPARISON: 08/14/2021
--- NOTE | 2021-08-17 15:48 | WPDGIPROGNO ---
Progress Note: A&P Assessment and Plan (1) Malfunction of gastrostomy tube: Code(s): K94.23 - Gastrostomy malfunction Status: Acute Assessment and Plan: I pulled out G-tube and it was exchanged for another one, 20 Fr, secured with balloon (used 6 ml of water) and positioned at 4 cm. Will ask radiology to use contrast to make sure that it is right position- if everything is ok then ok to use tube feeding if no more ileus- follow clinical course (2) Ileus: Code(s): K56.7 - Ileus, unspecified Status: Acute (3) Acute coronary syndrome: Code(s): I24.9 - Acute ischemic heart disease, unspecified Status: Acute Assessment and Plan: by cardiology (4) Septic shock: Code(s): A41.9 - Sepsis, unspecified organism; R65.21 - Severe sepsis with septic shock Status: Acute (5) Acute respiratory failure: Code(s): J96.00 - Acute respiratory failure, unspecified whether with hypoxia or hypercapnia Status: Acute Assessment and Plan: still intubated (6) History of throat cancer: Code(s): Z85.819 - Personal history of malignant neoplasm of unspecified site of lip, oral cavity, and pharynx Status: Acute (7) Community acquired pneumonia: Code(s): J18.9 - Pneumonia, unspecified organism Status: Acute Assessment and Plan: on treatment Subjective Date/time seen: 08/17/21 15:48 Interval history: no changes, still intubated Review of Systems Review of Systems: ROS unobtainable: Yes unobtainable due to endotracheal tube and unobtainable due to medical condition Exam Narrative: General: pt sedated, intubated and on mechanical ventilation HEENT: Pupils equal reactive ETT in place Lungs/Chest: Trachea central Coarse BS B/L, bilateral coarse breathing, no wheezing, decreased breath sounds at bases Cardiac: RRR. Normal S1 S2. No murmurs Abdomen: Decreased bowel sounds. Soft. NT. ND.? Peg tube in place, noted granuloma tissue on site Extremities: No clubbing, cyanosis or edema. Warm, palpable pedal pulses : Vanessa in place Neurologic:? Patient is sedated intubated, opens eyes, follows simple commands Objective Data Vital Signs Vital Signs: Vital Signs - 24 hr 08/16/21 16:00 08/16/21 16:00 08/16/21 16:00 Temperature 98.6 F Pulse Rate 115 H 122 H Respiratory Rate 96 H 25 H Blood Pressure 161/11 H Pulse Oximetry 96 96 Oxygen Delivery Mechanical Ventilation Oxygen Flow Rate 50 Fraction of Inspired Oxygen 45 08/16/21 16:14 08/16/21 16:15 08/16/21 17:15 Temperature Pulse Rate 123 H 123 H 124 H Respiratory Rate 27 H 27 H Blood Pressure Pulse Oximetry 95 Oxygen Delivery Mechanical Ventilation Oxygen Flow Rate Fraction of Inspired Oxygen 45 08/16/21 18:00 08/16/21 18:19 08/16/21 16:00 Temperature 98.5 F Pulse Rate 96 118 H 121 H Respiratory Rate 25 H 27 H Blood Pressure 143/102 H Pulse Oximetry 96 Oxygen Delivery Oxygen Flow Rate Fraction of Inspired Oxygen 08/16/21 18:00 08/16/21 18:33 08/16/21 18:33 Temperature Pulse Rate 116 H 118 H Respiratory Rate 24 H Blood Pressure 134/78 Pulse Oximetry Oxygen Delivery Oxygen Flow Rate Fraction of Inspired Oxygen 08/16/21 19:15 08/16/21 20:00 08/16/21 20:00 Temperature Pulse Rate 113 H 105 H Respiratory Rate 25 H 24 H Blood Pressure Pulse Oximetry 96 Oxygen Delivery Mechanical Ventilation Oxygen Flow Rate Fraction of Inspired Oxygen 45 45 08/16/21 20:00 08/16/21 22:00 08/16/21 20:00 Temperature 97.9 F 97.9 F Pulse Rate 106 H 105 H 105 H Respiratory Rate 25 H 25 H Blood Pressure 125/86 130/90 Pulse Oximetry 97 97 Oxygen Delivery Oxygen Flow Rate Fraction of Inspired Oxygen 08/16/21 22:00 08/16/21 23:02 08/16/21 23:08 Temperature Pulse Rate 104 H 106 H 106 H Respiratory Rate 26 H 26 H Blood Pressure Pulse Oximetry Oxygen Delivery
--- NOTE | 2021-08-17 16:34 | PM.PNCARD ---
Progress Note: A&P Assessment and Plan (1) Acute coronary syndrome: Code(s): I24.9 - Acute ischemic heart disease, unspecified Status: Acute Assessment and Plan: Acute inferior VA occurring while admitted in the ICU for pneumonia and sepsis. Troponin level peaked at 11.9 and is downtrending today. ECG still with evidence of inferior VA with mild ST elevations in leads II, III and aVF with reciprocal changes in aVL. Hemodynamically stable off pressors Has a gallop rhythm and possible CHF on chest x-ray he may have some systolic CHF, though overall does not appear volume overloaded. On dobutamine with subsequent improvement of renal rxn Aspirin on hold due to thrombocytopenia Getting metoprolol and atorvastatin Eventual ischemia evaluation once patient has recovered (2) Respiratory failure: Code(s): J96.90 - Respiratory failure, unspecified, unspecified whether with hypoxia or hypercapnia Status: Acute Assessment and Plan: Had respiratory failure and shock, gradually improving. Renal function is also improving. (3) Right heart failure: Code(s): I50.810 - Right heart failure, unspecified Status: Acute Assessment and Plan: Has severe right ventricular enlargement and hypokinesis. May be partly due to the patient's pneumonia and respiratory failure and probably due to a right ventricular infarct In general, will need a higher preload; avoid over-diuresis. Subjective Date/time seen: Cardiology follow up for acute IMI, treated conservatively because of the patient's other critical illnesses. Echo EF 40-45% with inferior posterior hypokinesis, severe right ventricular enlargement and dysfunction. 08/15/2021 No acute events overnight.? Remains intubated, sedated.? Vasopressors are being weaned.? Daughter and are at the bedside.? Date of service 08/17/21 16:34: Aspirin has been held due to thrombocytopenia. Weaned off pressors and Dr. Cueto started the patient on low-dose metoprolol. Remains on low-dose dobutamine. Patient's is at the bedside. Review of Systems Review of Systems: Review of systems obtained from the patient's nurse and EMR PEG changed out and position confirmed, now able to get his metoprolol through his G-tube. ROS unobtainable: Yes unobtainable due to endotracheal tube and unobtainable due to medical condition Exam Const: General: comfortable and no acute distress Other: Thin older male, intubated with multiple lines, appears chronically ill. HENMT: Mouth: Yes moist mucous membranes Eyes: General: appearance normal, both eyes and all related structures Resp: Effort & Inspection: normal respiratory effort Auscultation: rhonchi (Diffuse expiratory) and wheezes (Diffuse expiratory) Cardio: Rate: regular rate Rhythm: regular rhythm Heart sounds: Gallop heart sound present and no murmurs GI: Inspection: non-distended GI Palp: No Tenderness to palpation present (GI) Skin: General skin exam: no rashes or lesions noted (Other than some small areas of ecchymosis due to phlebotomy) Neuro: Other: Sedated and unresponsive Extrem: General: no edema and no pedal edema Psych: Mental Status: mental status grossly abnormal Other: Sedated and unresponsive Objective Data Vital Signs Vital Signs: Vital Signs - 24 hr 08/16/21 17:15 08/16/21 18:00 08/16/21 18:19 Temperature 98.5 F Pulse Rate 124 H 96 118 H Respiratory Rate 25 H 27 H Blood Pressure 143/102 H Pulse Oximetry 95 96 Oxygen Delivery Mechanical Ventilation Fraction of Inspired Oxygen 45 08/16/21 18:00 08/16/21 18:33 08/16/21 18:33 Temperature Pulse Rate 116 H 118 H Respiratory Rate 24 H Blood Pressure 134/78 Pulse Oximetry Oxygen Delivery Fraction of Inspired Oxygen 08/16/21 19:15 08/16/21 20:00 08/16/21 20:00 Temperature Pulse Rate 113 H 105 H Respiratory Rate 25 H 24 H Blood Pressure Pulse Oximetry 96 O
[2021-08-17] MEDS: ATORVASTATIN 40 MG TABLET FEED TUBE (16:55)
--- NOTE | 2021-08-17 17:35 | PC.NURSE ---
Dr. Cueto notified of Afib, HR- 185. 1800- Updated given to RN to reassess in 30 minutes and update
[2021-08-17] MEDS: METOPROLOL TARTRATE INJ 5 MG/5 ML VIAL IV PUSH (17:40)
[2021-08-17 18:26] LABS: Glucose Point of Care 115 mg/dl (65-105)
[2021-08-17] MEDS: AMIODARONE 150 MG/D5W 100 ML 150 MG/100 ML BAG 600 MG IV CONT (18:46)
[2021-08-17] MEDS: AMIODARONE 360 MG/D5W 200 ML 360 MG/200 ML BAG 33.33 MG IV CONT (18:46)
[2021-08-17] MEDS: MIDAZOLAM 100MG/NS 100ML(*CRX) 100 MG/100 ML BAG IV CONT (18:50)
[2021-08-17] MEDS: NOREPINEPHRINE 8 MG/D5W 250 ML 8 MG/250 ML BAG 9.38 MG IV CONT (21:16)
[2021-08-17] MEDS: DOCUSATE SODIUM LIQ 100 MG/10 ML UDC PO (21:33)
[2021-08-17 22:54] LABS: Glucose Point of Care 190 mg/dl (65-105)
[2021-08-18] VITALS (40 sets, daily range): BP systolic 102–154; BP diastolic 75–112; PULSE 83–115; RESP 20–33; TEMP 37.2–37.9; O2SAT 90–100
[2021-08-18] MEDS: AMIODARONE 360 MG/D5W 200 ML 360 MG/200 ML BAG 16.67 MG IV CONT (00:07)
[2021-08-18] MEDS: ALBUTEROL SULFATE NEB 2.5 MG/3 ML INH 5 MG INHALATION (02:15)
[2021-08-18] MEDS: IPRATROPIUM BR 0.02% INH SOLN 0.5 MG/2.5 ML VIAL INHALATION ×4 (02:16→20:24)
[2021-08-18 04:44] LABS: Hematocrit 33.4 % (42.0-52.0); Hemoglobin 10.7 g/dL (14.0-18.0); Immature Platelet Fraction Pct 20.3 % (0.9-11.2); Mean Corpuscular Hemoglobin 31.8 pg (26-34); Mean Corpuscular Volume 99.1 fl (80-100); Mean Platelet Volume 13.3 fl (7.4-10.4); Platelet Count Result 71 k/mm3 (150-375); Red Blood Count 3.37 M/mm3 (4.6-6.20); Red Cell Distribution Width 15.1 % (11.5-14.5); White Blood Count 9.2 K/mm3 (4.5-10.0)
[2021-08-18 04:52] LABS: Alanine Aminotransferase 19 U/L (6-50); Albumin Level 3.8 g/dL (3.5-5.1); Alkaline Phosphatase 75 U/L (38-126); Anion Gap 3 mmol/L (8-16); Aspartate Amino Transferase 20 U/L (17-59); Bilirubin,Total 0.8 mg/dL (0.2-1.3); Blood Urea Nitrogen 56 mg/dL (9-20); Calcium 8.3 mg/dL (8.4-10.2); Carbon Dioxide 35 mmol/L (22-30); Chloride 104 mmol/L (98-107); Estimated CRCL calculation 76 ml/min; Estimated Glomerular Filt Rate > 60; Glucose 108 mg/dL (65-110); Magnesium 2.2 mg/dL (1.6-2.3); Phosphorus 1.9 mg/dL (2.5-4.5); Potassium 3.7 mmol/L (3.4-5.0); Sodium 142 mmol/L (137-145)
[2021-08-18 05:11] LABS: Alveolar/Arterial O2 Gradient 198.4 mmHg; Base Excess ABG 7.3 mEq/l (+/-2.0); Carboxyhemoglobin 0.3 % THb (0-2.0); Fractional Inspired Oxygen 45 %; HCO3 ABG 33.1 mEq/l (22.0-26.0); Methemoglobin ABG 0.1 %THb (0-1.5); Oxygen Content ABG 14.8 %vol (16.0-22.0); Oxygen Saturation ABG 92.1 % (95.0-100.0); Oxyhemoglobin 92.1 % THb (90.0-100.0); PCO2 ABG 52.3 mmHg (35.0-45.0); Reduced Hemoglobin 7.5 %THb (0-5.0); Total Hemoglobin 11.4 g/dL (12.0-18.0); pH ABG 7.419 (7.350-7.450)
[2021-08-18 05:12] LABS: Arterial Blood Gas Ventilator rate 25 /MIN; Device VENTILATOR; Modified Allen's Test Unable to perform; Site Drawn RIGHT RADIAL
[2021-08-18 05:13] LABS: Arterial Blood Gas PEEP 10 cmH2O; Arterial Blood Gas Tidal Volume 450 ml; Arterial Blood Gas Vent Mode CMV
[2021-08-18] MEDS: LEVOTHYROXINE SODIUM 25 MCG TABLET FEED TUBE (05:50)
[2021-08-18] MEDS: CENTRAL LINE FLUSH 10 ML IV PUSH ×3 (05:51→21:02)
[2021-08-18] MEDS: FENTANYL 2,500MCG/NS250ML(*CRX 2,500 MCG/250 ML BAG 10 MCG IV CONT (05:51)
[2021-08-18] MEDS: POTASSIUM/PHOSPHORUS/SODIUM 1.5 GM PACKET 1 PACKET PO (07:49)
[2021-08-18] MEDS: polyethylene glycoL 3350 17 GM POWD.PACK PO ×2 (07:53→18:05)
[2021-08-18] MEDS: PANTOPRAZOLE SODIUM IV 40 MG VIAL IV PUSH (07:53)
[2021-08-18] MEDS: ATORVASTATIN 40 MG TABLET FEED TUBE (07:54)
[2021-08-18] MEDS: DOCUSATE SODIUM LIQ 100 MG/10 ML UDC PO ×2 (07:54→21:02)
[2021-08-18] MEDS: HYDROCORTISONE SODIUM SUCCINATE 100 MG/2 ML VIAL 50 MG IV PUSH (07:57)
[2021-08-18] MEDS: METOCLOPRAMIDE HCL INJ 10 MG/2 ML VIAL 5 MG IV PUSH (07:58)
[2021-08-18] MEDS: ALBUTEROL SULFATE NEB 2.5 MG/3 ML INH INHALATION ×3 (08:10→20:23)
--- NOTE | 2021-08-18 08:22 | PM.IMPN ---
Progress Note: A&P Assessment and Plan (1) Septic shock: Code(s): A41.9 - Sepsis, unspecified organism; R65.21 - Severe sepsis with septic shock Status: Acute Assessment and Plan: Patient was hypotensive on admission felt related to pneumonia. Patient met sepsis criteria on admission with tachypnea, tachycardia, hypotension and fever. He also has leukopenia and thrombocytopenia felt related to the sepsis and lactic acidosis. Patient moved to the ICU. Blood cultures no growth to date. White count improved felt related to the steroids. Steroids being weaned. He was weaned off vasopressin on 08/14 and Levophed on 08/15 but did require them overnight related to the AFib. Fevers now. Consider VTE or fungal infections. LE Doppler was negative on 08/14 but now with AFib so will repeat dopplers and do UE. Appreciate nipple threader input. (2) Atrial fibrillation: Code(s): I48.91 - Unspecified atrial fibrillation Status: Acute Assessment and Plan: Patient developed AFib with RVR overnight. This resulted in drop in blood pressure after IV metoprolol. Patient has converted with amiodarone. Albuterol dose has been decreased. TSH is normal. Cardiology following. Appreciate their input. Holding on anticoagulation given the low platelet count. (3) Acute respiratory failure: Code(s): J96.00 - Acute respiratory failure, unspecified whether with hypoxia or hypercapnia Status: Acute Assessment and Plan: Patient with acute respiratory failure felt related to pneumonia. He has known chronic secretion production probably related to esophageal stricture and chronic aspiration. He also drinks water on occasion for oral medications. CTA chest 08/15 showing persistent extensive bilateral PNA worse in the LLL. Continue supportive care. Wean MV as toelrated. Continue IV abx and nebulizer treatments. Appreciate nipple threader input. Discussed. (4) Acute coronary syndrome: Code(s): I24.9 - Acute ischemic heart disease, unspecified Status: Acute Assessment and Plan: Patient had mildly elevated troponins on admission that worsened. Changes noted on telemetry and EKG 08/[address] elevation in the inferior leads consistent with STEMI. Cardiology was consulted but STEMI team not activated due to the severity of the patient's condition at the time. Aspirin was added but held due to TCP. Echo shows EF of 40-45%, posterior inferior segments are hypodynamic, severely enlarged right ventricle with reduced systolic RV function. Cardiology felt that the severely dilated right ventricle is chronic which could be related to pulmonary hypertension from chronic aspiration (PAP could not be evaluated). CTA chest negative for PE and LE venous doppler negative for DVT. Possible Heart cath when patient more stable. Metoprolol to be added but not given due to drop in BP. LFTs okay so Lipitor added. Continue medical management. (5) Ileus: Code(s): K56.7 - Ileus, unspecified Status: Acute Assessment and Plan: Patient has developed an ileus. KUB showed mild gaseous distension of the ascending and transverse colon. NG tube secured to suction. Repeat x-ray 08/17 reviewed showing nonspecific abdomen. TF started. (6) Pneumonia: Code(s): J18.9 - Pneumonia, unspecified organism Status: Acute Assessment and Plan: CXR was consistent with PNA. CT chest 08/13 showing diffuse groundglass and consolidative opacities. As above. Fever noted. Continue current abx for now. (7) Altered mental status: Code(s): R41.82 - Altered mental status, unspecified Status: Acute Assessment and Plan: Patient had decreased responsiveness on presentation to the ED. His states the patient was appropriate but sleepy. CT brain showing no acute process. Reassess once he is off sedation. Continue sedation holidays. (8) Leukopenia: Code(s): D72.819 - Decreased
[2021-08-18] MEDS: MINERAL OIL/WHITE PETROLATUM OINTMENT 1 APPLIC EACH EYE ×2 (09:00→21:02)
--- NOTE | 2021-08-18 09:17 | PM.PNCARD ---
Progress Note: A&P Assessment and Plan (1) Atrial fibrillation: Code(s): I48.91 - Unspecified atrial fibrillation Status: Acute (2) Right heart failure: Code(s): I50.810 - Right heart failure, unspecified Status: Acute (3) Acute coronary syndrome: Code(s): I24.9 - Acute ischemic heart disease, unspecified Status: Acute Plan 66 year man with multiple comorbidities. Has a chronic G-tube in tends to have chronic aspiration. He has relatively severe respiratory insufficiency bilateral pneumonia and chronic right ventricular dysfunction. During this hospitalization there was a inferior wall infarction which has been treated conservatively given his comorbidities. Atrial fibrillation last evening has been resolved with amiodarone treatment. Very poor long-term prognosis Ozzy Mehta MD [facility] Subjective Date/time seen: date of service:08/18/21 09:17 Interval history: Follow-up visit in this 66-year-old man with: Inferior wall infarction which occurred following presentation with pneumonia respiratory failure which required intubation. Decision was made at the morning of the event that he was not a candidate for angiography / revascularization. Patient had a mild infarction by troponin criteria. He also has severe right ventricular dysfunction which obviously is chronic as his right ventricle is markedly dilated on echo. Patient remains intubated in the ICU. Patient developed AFib with RVR last evening placed on intravenous amiodarone. Back in sinus rhythm this morning Exam Const: Other: white male appears chronically ill intubated on ventilator support HENMT: Mouth: Yes moist mucous membranes Eyes: Sclera: sclerae normal Neck: Other: 2 cm of JVD Resp: Other: rhonchorous breath sounds bilaterally Cardio: Rate: regular rate Rhythm: regular rhythm GI: GI Palp: Yes Soft to palpation Auscultation: normal bowel sounds Objective Data Vital Signs Vital Signs: Vital Signs - 24 hr 08/17/21 10:00 08/17/21 10:00 08/17/21 10:00 Temperature Pulse Rate 108 H 108 H 108 H Respiratory Rate 25 H 25 H Blood Pressure Pulse Oximetry Oxygen Delivery Fraction of Inspired Oxygen 08/17/21 10:00 08/17/21 10:37 08/17/21 11:28 Temperature 37.1 C Pulse Rate 108 H 113 H 112 H Respiratory Rate 25 H Blood Pressure 145/102 H 145/102 H Pulse Oximetry 95 96 Oxygen Delivery Mechanical Ventilation Fraction of Inspired Oxygen 45 08/17/21 12:00 08/17/21 12:00 08/17/21 12:00 Temperature 37.4 C Pulse Rate 115 H Respiratory Rate 26 H Blood Pressure 153/116 H Pulse Oximetry 95 95 Oxygen Delivery Mechanical Ventilation Fraction of Inspired Oxygen 45 45 08/17/21 12:00 08/17/21 12:00 08/17/21 12:00 Temperature Pulse Rate 115 H 115 H 116 H Respiratory Rate 25 H 25 H Blood Pressure Pulse Oximetry Oxygen Delivery Fraction of Inspired Oxygen 08/17/21 14:00 08/17/21 14:00 08/17/21 14:00 Temperature 37.4 C Pulse Rate 120 H 120 H 120 H Respiratory Rate 28 H 28 H Blood Pressure 147/110 H Pulse Oximetry 94 Oxygen Delivery Fraction of Inspired Oxygen 08/17/21 14:00 08/17/21 15:00 08/17/21 15:12 Temperature Pulse Rate 120 H 117 H 112 H Respiratory Rate 28 H 29 H Blood Pressure Pulse Oximetry 95 Oxygen Delivery Mechanical Ventilation Fraction of Inspired Oxygen 45 08/17/21 15:13 08/17/21 16:00 08/17/21 16:00 Temperature 37.3 C Pulse Rate 113 H 112 H 112 H Respiratory Rate 28 H 26 H 26 H Blood Pressure 139/99 H Pulse Oximetry 96 Oxygen Delivery Fraction of Inspired Oxygen 08/17/21 16:00 08/17/21 17:06 08/17/21 16:00 Temperature Pulse Rate 121 H 94 Respiratory Rate 26 H Blood Pressure Pulse Oximetry 96 Oxygen Delivery Mechanical Ventilation Fraction of Inspired Oxygen 45 45 08/17/21 16:00 08/17/21 17:40 08/17/21 16:00
--- NOTE | 2021-08-18 10:57 | PM.PNPUL ---
Progress Note: A&P Assessment and Plan (1) Pneumonia: Code(s): J18.9 - Pneumonia, unspecified organism Status: Acute Assessment and Plan: 66-year-old man with a history of throat cancer status post PEG placement with aspiration pneumonias in the past. Currently presents with pneumonia, septic shock followed by acute MA. Patient was treated with broad-spectrum antibiotics and remains on vancomycin, cefepime and azithromycin. His shock is improved and he is no longer on pressors. He remains on dobutamine. He remains intubated with improving oxygenation over the last 72 hours and is currently on CMV tidal volume 450, 45% and 10 of peep. His blood gas this morning on 45% and 12 of peep was 7.42/46/79. His chest x-ray demonstrates persistent bilateral interstitial alveolar infiltrates. Sputum from 08/16/2021 shows white blood cells, no organisms seen. Blood cultures from 08/13 demonstrate No growth. Start RT PCR study on 08/13 was negative. Influenza swab on 08/13 was negative. Urine Legionella urine pneumococcal studies are negative on 08/13/2021. I suspect the patient's current illnesses related to pneumonia from aspiration or aspiration pneumonitis with a development of septic shock, acute MA and ARDS. The patient may also have a component of fluid overload as he is 16 L positive and is currently receiving his 1st dose of Lasix today. Overall the patient has improved from a respiratory component in his currently on 45% and 10 of peep. ventilator management per director of rehabilitative services. He is on vancomycin started 08/13, cefepime started 08/13, and azithromycin started 08/13. would continue azithromycin for a total of 5 days. Patient has been on broad-spectrum antibiotics and at this time his infiltrates are not worsening. At this time there is no indication for bronchoscopy. 02/18/2021: Patient remains intubated, off of his sedatives currently for sedation vacation. He is on amiodarone drip. Yesterday he was diuresed and did develop some AFib. He was on low doses of Levophed which are now off. His white blood cell count is 9.2. Is on CMV 45% with peep of 10 and his blood gases 7.42/52/63. He is off hydrocortisone since yesterday and his T-max is a 100.4?. Patient had low-grade fever with unchanged chest x-ray and blood gases stable from yesterday given that he is on lower peep today doubt VAP at this time. Chest x-ray with no change in his diffuse interstitial alveolar infiltrates. Sputum Gram stain with few white blood cells, few epithelial cells and no organisms seen. The patient may also have a fever from ARDS. remains on vancomycin and cefepime since 08/13. Has received 5 days of azithromycin and that will be discontinued today. Agree with looking for other etiologies of fever Lower extremity Dopplers will be ordered. . Discussed with Dr. Cueto, will sign off, call with questions. Subjective Date/time seen: 08/18/21 10:57 Interval history: 08/17/2021:? This is a new pulmonary consult for pneumonia.? 58-year-old male with a history of throat cancer status post G-tube placement, history of aspiration pneumonia, hypothyroidism, GERD, BPH who presented to the emergency room on 08/13/2021 with fever, tachypnea, decreased mental status, hypotension and respiratory failure requiring BiPAP.? Patient remained hypotensive despite IV fluids and moves moved to the ICU where he was intubated and developed septic shock requiring pressors.? Patient then had an acute inferior myocardial infarction and was deemed? he was not an acceptable candidate for emergent angiography per Cardiology.? Patient was treated with broad-spectrum antibiotics, pressors, dobutamine.? ? patient's last fever was on 08/13/2021. On 08/14/2021 the patient was on 70% FiO2 and a peep of 12. ? 08/15/2021 creatinine was 1.5.? White blood cell count on 08/16/2021 was 14.2. 08/17/2021: ? Patient remains intubated and sedated with fentanyl and Versed
--- NOTE | 2021-08-18 11:05 | WPDINTPN ---
Progress Note: A&P Assessment and Plan (1) Acute respiratory failure: Code(s): J96.00 - Acute respiratory failure, unspecified whether with hypoxia or hypercapnia Status: Acute Assessment and Plan: Acute Respiratory failure secondary to pneumonia which could be aspiration versus community-acquired 08/13 Patient was emergently intubated in ICU CT scan showed Diffuse ground-glass and consolidative opacities. -remains on CMV mode of ventilation, 40% FiO2, peep of 10 ABGs reviewed Chest x-ray this morning showed: Persistent extensive patchy bilateral consolidating infiltrates, without improvement since 08/17/2021. ET tube tip 6.5 cm above doug; ideal range is 2- 5 cm . Continue full mechanical ventilation support to prevent hypoxemia/hypercarbia and end organ damage. Low tidal volume ventilation strategy to prevent volutrauma Continue Bronchodilators Not a candidate for weaning at this time Also will discontinue IV fluids 08/17: Diuresed well with no change in chest x-ray, went into AFib RVR dropped his blood pressures, required Levophed for short amount of time. Will hold diuresis today -discussed with pulmonology -persistent infiltrates, will have pulmonology evaluate the patient for possible bronchoscopy (2) Septic shock: Code(s): A41.9 - Sepsis, unspecified organism; R65.21 - Severe sepsis with septic shock Status: Acute Assessment and Plan: Septic along with cardiogenic shock secondary to pneumonia, possible cardiogenic component -UA negative - urine Legionella and pneumococcal antigen: Not detected -08/13: Blood cultures negative x2 -continue vancomycin, cefepime and azithromycin (started on ). Will stop azithromycin today -patient has received adequate fluids since admission -OFF Levophed and vasopressin -likely cardiogenic shock given right sided dysfunction on echocardiogram secondary to STEMI -OFF dobutamine since 08/17 as he went into AFib RVR, was given metoprolol remained in AFib RVR and dropped his pressures, amiodarone was started with conversion to sinus rhythm. Patient was on Levophed briefly is currently off -steroids have been weaned 08/15: PICC line was inserted, femoral line was removed 08/14 echocardiogram: Showed EF of 40-45%, posterior and inferior segments are hyperdynamic, right ventricle chamber is severely enlarged, right ventricular systolic function is reduced (3) Pneumonia: Code(s): J18.9 - Pneumonia, unspecified organism Status: Acute Assessment and Plan: See above (4) Altered mental status: Code(s): R41.82 - Altered mental status, unspecified Status: Acute Assessment and Plan: Likely toxic metabolic encephalopathy from sepsis hypertension hypoxia and then he has received some Ativan and morphine He is now sedated for mechanical ventilation, opening eyes and following commands Unremarkable head CT Normal ammonia level Normal TSH level (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 PEG tube was flushed and aspirated with saline multiple times appears that it is now working in both directions. Will switch tube feeds to PEG tube. If the no issues will remove OG tube -appreciate GI following, PEG tube was exchanged on 08/17/2021 by GI and is working fine, patient tolerating tube feeds (6) Thrombocytopenia: Code(s): D69.6 - Thrombocytopenia, unspecified Status: Acute Assessment and Plan: Not sure of chronicity Again could be related to sepsis, medications Monitor and transfuse if needed Hold anticoagulation at this time -platelet counts improving (7) Leukopenia: Code(s): D72.819 - Decreased white blood cell count, unspecified Status: Acute A
[2021-08-18 12:10] LABS: Glucose Point of Care 150 mg/dl (65-105)
--- NOTE | 2021-08-18 12:30 | PCNFU ---
Nutrition Follow-Up Complete: Increased protein needs as related to wounds as evidenced by Deep Tissue Presure injury reported. goal: Meet estimated nutritional needs Patient is progressing towards goal. We will continue current goal. Pt current nutrition is Vital AF 1.2 at 60 ml/hr over 22 hours. Last recorded weight is 80.7 kg, up from 78.4 kg on admit. Bowel Motility:+BM reported 08/15 Labs Reviewed:BUN 56, Hct 33.4, Hgb 10.7 Meds Noted: Colace, Reglan, Miralax, Versed, Fentanyl, Levophed, Vancomycin, Protonix, Synthroid. Skin: Deep tissue injury to coccyx Additional Notes: Patient seen today for nutrition follow up. Patient remains on mechanical vent and tube feedings of Vital AF 1.2 at 60 ml/hr over 22 hours. Tolerating tube feedings well. Patient is working towards goal rate of 75 ml/hr, which will provide 1980 kcals/ 124 gms protein/1338 ml water. Tube feeding are meeting 93% of caloric needs and 100% protein needs. Free water flush 30 ml q 4 hours. Agree with diet orders. Monitoring: Will monitor daily in ICU rounds and reassessing every Saturday and Saturday.
--- NOTE | 2021-08-18 13:09 | WPDGIPROGNO ---
Progress Note: A&P Assessment and Plan (1) Malfunction of gastrostomy tube: Code(s): K94.23 - Gastrostomy malfunction Status: Acute Assessment and Plan: new g-tube working ok no more ileus will sign off, call if questions (2) Ileus: Code(s): K56.7 - Ileus, unspecified Status: Acute Assessment and Plan: resolved (3) Septic shock: Code(s): A41.9 - Sepsis, unspecified organism; R65.21 - Severe sepsis with septic shock Status: Acute Assessment and Plan: by chaperon (4) Acute respiratory failure: Code(s): J96.00 - Acute respiratory failure, unspecified whether with hypoxia or hypercapnia Status: Acute Assessment and Plan: still intubated, more infiltrates and pulmonary on board (5) History of throat cancer: Code(s): Z85.819 - Personal history of malignant neoplasm of unspecified site of lip, oral cavity, and pharynx Status: Acute Subjective Date/time seen: 08/18/21 13:09 Interval history: g-tube exchanged yesterday for a new one, tolerating TF at 60ml/h, ileus resolved. Still sick and intubated Review of Systems Review of Systems: ROS unobtainable: Yes unobtainable due to endotracheal tube, unobtainable due to medical condition and unobtainable due to mental status Exam Narrative: General: pt sedated, intubated and on mechanical ventilation HEENT: Pupils equal reactive ETT in place Lungs/Chest: Trachea central Coarse BS B/L, bilateral coarse breathing, no wheezing, decreased breath sounds at bases Cardiac: RRR. Normal S1 S2. No murmurs Abdomen: Decreased bowel sounds. Soft. NT. ND.? Peg tube in place Extremities: No clubbing, cyanosis or edema. Warm, palpable pedal pulses : Vanessa in place Neurologic:? Patient is sedated intubated, opens eyes, follows simple commands Objective Data Vital Signs Vital Signs: Vital Signs - 24 hr 08/17/21 14:00 08/17/21 14:00 08/17/21 14:00 Temperature 99.3 F Pulse Rate 120 H 120 H 120 H Respiratory Rate 28 H 28 H Blood Pressure 147/110 H Pulse Oximetry 94 Oxygen Delivery Fraction of Inspired Oxygen 08/17/21 14:00 08/17/21 15:00 08/17/21 15:12 Temperature Pulse Rate 120 H 117 H 112 H Respiratory Rate 28 H 29 H Blood Pressure Pulse Oximetry 95 Oxygen Delivery Mechanical Ventilation Fraction of Inspired Oxygen 45 08/17/21 15:13 08/17/21 16:00 08/17/21 16:00 Temperature 99.1 F Pulse Rate 113 H 112 H 112 H Respiratory Rate 28 H 26 H 26 H Blood Pressure 139/99 H Pulse Oximetry 96 Oxygen Delivery Fraction of Inspired Oxygen 08/17/21 16:00 08/17/21 17:06 08/17/21 16:00 Temperature Pulse Rate 121 H 94 Respiratory Rate 26 H Blood Pressure Pulse Oximetry 96 Oxygen Delivery Mechanical Ventilation Fraction of Inspired Oxygen 45 45 08/17/21 16:00 08/17/21 17:40 08/17/21 16:00 Temperature Pulse Rate 185 H 112 H Respiratory Rate Blood Pressure Pulse Oximetry 96 Oxygen Delivery Mechanical Ventilation Fraction of Inspired Oxygen 45 08/17/21 18:00 08/17/21 18:00 08/17/21 18:46 Temperature 99.5 F Pulse Rate 126 H 126 H 131 H Respiratory Rate 25 H Blood Pressure 93/76 L 85/59 L Pulse Oximetry 94 Oxygen Delivery Fraction of Inspired Oxygen 08/17/21 18:46 08/17/21 18:50 08/17/21 17:35 Temperature Pulse Rate 124 H 111 H 174 H Respiratory Rate 24 H Blood Pressure 85/59 L 135/103 H Pulse Oximetry Oxygen Delivery Fraction of Inspired Oxygen 08/17/21 20:22 08/17/21 20:25 08/17/21 20:39 Temperature Pulse Rate 85 82 91 Respiratory Rate 30 H 30 H Blood Pressure Pulse Oximetry 95 Oxygen Delivery Mechanical Ventilation Fraction of Inspired Oxygen 45 08/17/21 20:00 08/17/21 20:30 08/17/21 20:45 Temperature Pulse Rate 88 Respiratory Rate 25 H Blood Pressure 84/68 L 68/52 L 72/56 L Pulse Oximetry 95 Oxygen Delivery Fraction
[2021-08-18 18:07] LABS: Glucose Point of Care 138 mg/dl (65-105)
[2021-08-18 23:39] LABS: Glucose Point of Care 136 mg/dl (65-105)
[2021-08-19] VITALS (31 sets, daily range): BP systolic 78–145; BP diastolic 56–99; PULSE 79–124; RESP 24–29; TEMP 37.2–37.5; O2SAT 92–97
[2021-08-19] MEDS: MIDAZOLAM 100MG/NS 100ML(*CRX) 100 MG/100 ML BAG IV CONT (00:09)
[2021-08-19] MEDS: ALBUTEROL SULFATE NEB 2.5 MG/3 ML INH INHALATION ×4 (02:21→20:10)
[2021-08-19] MEDS: IPRATROPIUM BR 0.02% INH SOLN 0.5 MG/2.5 ML VIAL INHALATION ×4 (02:22→20:10)
[2021-08-19 04:42] LABS: Hematocrit 36.8 % (42.0-52.0); Hemoglobin 11.7 g/dL (14.0-18.0); Immature Platelet Fraction Pct 19.3 % (0.9-11.2); Mean Corpuscular HGB Conc 31.8 g/dl (32-36); Mean Corpuscular Hemoglobin 31.8 pg (26-34); Mean Platelet Volume 13.7 fl (7.4-10.4); Platelet Count Result 109 k/mm3 (150-375); Red Blood Count 3.68 M/mm3 (4.6-6.20); Red Cell Distribution Width 14.9 % (11.5-14.5); White Blood Count 14.4 K/mm3 (4.5-10.0)
[2021-08-19 04:55] LABS: Alanine Aminotransferase 25 U/L (6-50); Albumin Level 3.4 g/dL (3.5-5.1); Alkaline Phosphatase 78 U/L (38-126); Anion Gap 3 mmol/L (8-16); Aspartate Amino Transferase 28 U/L (17-59); Bilirubin,Total 0.8 mg/dL (0.2-1.3); Blood Urea Nitrogen 66 mg/dL (9-20); Calcium 8.4 mg/dL (8.4-10.2); Carbon Dioxide 36 mmol/L (22-30); Chloride 106 mmol/L (98-107); Estimated CRCL calculation 84 ml/min; Estimated Glomerular Filt Rate > 60; Glucose 137 mg/dL (65-110); Magnesium 2.1 mg/dL (1.6-2.3); Phosphorus 2.5 mg/dL (2.5-4.5); Potassium 4.1 mmol/L (3.4-5.0); Sodium 145 mmol/L (137-145)
[2021-08-19 05:24] LABS: Band Neutrophils Percent 7 % (0-6); Neutrophils Absolute Manual 13.39 K/mm3 (1.3-6.7); Neutrophils Percent Manual 86 % (46-73); Total Cells Counted 100
[2021-08-19 05:25] LABS: Atypical Lymphocytes Present; Lymphocytes Absolute Manual 0.57 K/mm3 (1.1-4.5); Lymphocytes Percent Manual 4 % (18-44); Monocytes Absolute Manual 0.43 K/mm3 (0.1-0.90); Monocytes Percent Manual 3 % (3-9); Platelet Estimate Decreased (Adequate)
[2021-08-19 05:27] LABS: Alveolar/Arterial O2 Gradient 169.6 mmHg; Base Excess ABG 6.1 mEq/l (+/-2.0); Carboxyhemoglobin 0.3 % THb (0-2.0); Fractional Inspired Oxygen 45 %; Methemoglobin ABG 0.4 %THb (0-1.5); Oxygen Content ABG 17.2 %vol (16.0-22.0); Oxyhemoglobin 95.3 % THb (90.0-100.0); PCO2 ABG 58.2 mmHg (35.0-45.0); PO2 ABG 85.1 mmHg (80.0-100.0); PO2 FiO2 Ratio Arterial Blood 1.89 %; Total Hemoglobin 12.8 g/dL (12.0-18.0); pH ABG 7.371 (7.350-7.450)
[2021-08-19 05:28] LABS: Arterial Blood Gas PEEP 10 cmH2O; Arterial Blood Gas Vent Mode CMV; Arterial Blood Gas Ventilator rate 25 /MIN; Device VENTILATOR; Modified Allen's Test Pass; Site Drawn RIGHT RADIAL
[2021-08-19 05:29] LABS: Arterial Blood Gas Tidal Volume 450 ml
[2021-08-19] MEDS: CENTRAL LINE FLUSH 10 ML IV PUSH ×3 (05:46→20:51)
[2021-08-19] MEDS: LEVOTHYROXINE SODIUM 25 MCG TABLET FEED TUBE (05:46)
[2021-08-19] MEDS: DOCUSATE SODIUM LIQ 100 MG/10 ML UDC PO ×2 (08:28→20:51)
[2021-08-19] MEDS: ATORVASTATIN 40 MG TABLET FEED TUBE (08:28)
[2021-08-19] MEDS: HYDROCORTISONE SODIUM SUCCINATE 100 MG/2 ML VIAL 50 MG IV PUSH (08:29)
[2021-08-19] MEDS: PANTOPRAZOLE SODIUM IV 40 MG VIAL IV PUSH (08:29)
[2021-08-19] MEDS: polyethylene glycoL 3350 17 GM POWD.PACK PO ×2 (08:29→18:00)
[2021-08-19] MEDS: MINERAL OIL/WHITE PETROLATUM OINTMENT 1 APPLIC EACH EYE ×2 (08:29→20:51)
--- NOTE | 2021-08-19 08:49 | WPDINTPN ---
Progress Note: A&P Assessment and Plan (1) Acute respiratory failure: Code(s): J96.00 - Acute respiratory failure, unspecified whether with hypoxia or hypercapnia Status: Acute Assessment and Plan: Acute Respiratory failure secondary to pneumonia which could be aspiration versus community-acquired 08/13 Patient was emergently intubated in ICU CT scan showed Diffuse ground-glass and consolidative opacities. -remains on CMV mode of ventilation, 45% FiO2, peep of 10 ABGs reviewed Chest x-ray 08/18: Persistent extensive patchy bilateral consolidating infiltrates, without improvement since 08/17/2021. ET tube tip 6.5 cm above doug; ideal range is 2- 5 cm . Continue full mechanical ventilation support to prevent hypoxemia/hypercarbia and end organ damage. Low tidal volume ventilation strategy to prevent volutrauma Continue Bronchodilators Not a candidate for weaning at this time 08/17: Diuresed well with no change in chest x-ray, went into AFib RVR dropped his blood pressures, required Levophed for short amount of time. - Auto diuresing -discussed with pulmonology -persistent infiltrates, will have pulmonology evaluate the patient for possible bronchoscopy (2) Septic shock: Code(s): A41.9 - Sepsis, unspecified organism; R65.21 - Severe sepsis with septic shock Status: Acute Assessment and Plan: Septic along with cardiogenic shock secondary to pneumonia, possible cardiogenic component -UA negative - urine Legionella and pneumococcal antigen: Not detected -08/13: Blood cultures negative x2 -continue vancomycin, cefepime (started on ). azithromycin dc'd 08/18 -patient has received adequate fluids since admission -OFF Levophed and vasopressin -likely cardiogenic shock given right sided dysfunction on echocardiogram secondary to STEMI -OFF dobutamine since 08/17 as he went into AFib RVR, was given metoprolol remained in AFib RVR and dropped his pressures, amiodarone was started with conversion to sinus rhythm. Patient was on Levophed briefly is currently off -steroids weaned to off 08/15: PICC line was inserted, femoral line was removed 08/14 echocardiogram: Showed EF of 40-45%, posterior and inferior segments are hyperdynamic, right ventricle chamber is severely enlarged, right ventricular systolic function is reduced (3) Pneumonia: Code(s): J18.9 - Pneumonia, unspecified organism Status: Acute Assessment and Plan: See above (4) Altered mental status: Code(s): R41.82 - Altered mental status, unspecified Status: Acute Assessment and Plan: Likely toxic metabolic encephalopathy from sepsis hypertension hypoxia and then he has received some Ativan and morphine He is now sedated for mechanical ventilation, opening eyes and following commands Unremarkable head CT Normal ammonia level Normal TSH level (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 PEG tube was flushed and aspirated with saline multiple times appears that it is now working in both directions. Will switch tube feeds to PEG tube. If the no issues will remove OG tube -appreciate GI following, PEG tube was exchanged on 08/17/2021 by GI and is working fine, patient tolerating tube feeds (6) Thrombocytopenia: Code(s): D69.6 - Thrombocytopenia, unspecified Status: Acute Assessment and Plan: Not sure of chronicity Again could be related to sepsis, medications Monitor and transfuse if needed Hold anticoagulation at this time -platelet counts improving (7) Leukopenia: Code(s): D72.819 - Decreased white blood cell count, unspecified Status: Acute Assessment and Plan: Resolved -likely due to septic shock (8) History o
--- NOTE | 2021-08-19 10:36 | PCFNICU ---
ICU Rounding Note: Pt current nutrition is Vital AF 1.2 at 75 ml/hr over 22 hours. Last recorded weight is 87.5 kg, up from 78.4 kg on admit. Bowel Motility:No BM reported since 08/15 Labs Reviewed:Glu 137, BUN 66, Alb 3.4,Hgb 11.7,Hct 36.8 Meds Noted:Colace, Reglan, Miralax, Versed, Fentanyl, Levophed, Vancomycin, Protonix, Synthroid. Skin: Deep Tissue injury to coccyx. Additional Notes: Patient remains on mechanical vent with tube feedings of Vital AF 1.2 at 75 ml/hr and tolerating. Free water flush 30 ml q 4 hours. Agree with diet orders. Following daily in ICU rounds and reassessing every Saturday and Saturday.
[2021-08-19 11:04] LABS: Vancomycin Trough 10.1 ug/mL (10.0-20.0)
--- NOTE | 2021-08-19 11:12 | PM.IMPN ---
Progress Note: A&P Assessment and Plan (1) Septic shock: Code(s): A41.9 - Sepsis, unspecified organism; R65.21 - Severe sepsis with septic shock Status: Acute Assessment and Plan: Patient was hypotensive on admission felt related to pneumonia. Patient met sepsis criteria on admission with tachypnea, tachycardia, hypotension and fever. He also had leukopenia and thrombocytopenia felt related to the sepsis and lactic acidosis. Patient moved to the ICU. Blood cultures no growth to date. White count improved felt related to the steroids. Steroids being weaned. He was weaned off vasopressin on 08/14 and Levophed on 08/15 but still requiring pressors intermittently. Fevers resolved. No DVT in UE/LE. Appreciate e learning developer input. (2) Atrial fibrillation: Code(s): I48.91 - Unspecified atrial fibrillation Status: Acute Assessment and Plan: Patient developed AFib with RVR. This resulted in drop in blood pressure after IV metoprolol. Patient has since converted with amiodarone. Albuterol dose was decreased. TSH is normal. Cardiology following. Appreciate their input. Holding on anticoagulation given the low platelet count. Amiodarone is off now. (3) Acute respiratory failure: Code(s): J96.00 - Acute respiratory failure, unspecified whether with hypoxia or hypercapnia Status: Acute Assessment and Plan: Patient with acute respiratory failure felt related to pneumonia. He has known chronic secretion production probably related to esophageal stricture and chronic aspiration. He also drinks water on occasion for oral medications. CTA chest 08/15 showing persistent extensive bilateral PNA worse in the LLL. Continue supportive care. Wean MV as tolerated. Continue IV abx and nebulizer treatments. Appreciate e learning developer input. (4) Acute coronary syndrome: Code(s): I24.9 - Acute ischemic heart disease, unspecified Status: Acute Assessment and Plan: Patient had mildly elevated troponins on admission. Changes noted on telemetry and EKG 08/[address] elevation in the inferior leads consistent with STEMI. Cardiology was consulted but STEMI team not activated due to the severity of the patient's condition at the time. Aspirin was added but held initially due to TCP. Echo shows EF of 40-45%, posterior inferior segments are hypodynamic, severely enlarged right ventricle with reduced systolic RV function. Cardiology felt that the severely dilated right ventricle is chronic which could be related to pulmonary hypertension from chronic aspiration (PAP could not be evaluated). CTA chest negative for PE and LE venous doppler negative for DVT. Repeat dopplers negative for DVT in the UE/LE. Possible Heart cath when patient more stable. Metoprolol was added but not given due to drop in BP. LFTs okay so Lipitor added. Continue medical management. (5) Pneumonia: Code(s): J18.9 - Pneumonia, unspecified organism Status: Acute Assessment and Plan: CXR was consistent with PNA. CT chest 08/13 showing diffuse groundglass and consolidative opacities. As above. Fever noted but now resolved and probably related to to atelectasis. Continue current abx for now. (6) Ileus: Code(s): K56.7 - Ileus, unspecified Status: Acute Assessment and Plan: Patient did develop an ileus. KUB showed mild gaseous distension of the ascending and transverse colon. NG tube secured to suction. Repeat x-ray 08/17 reviewed showing nonspecific abdomen. TF started and he is toelrating well. Resolved. . (7) Altered mental status: Code(s): R41.82 - Altered mental status, unspecified Status: Acute Assessment and Plan: Patient had decreased responsiveness on presentation to the ED. His states the patient was appropriate but sleepy. CT brain showing no acute process. He is following commands. Reassess once he is off sedation. Continue sedation holidays.
[2021-08-19 11:52] LABS: Glucose Point of Care 149 mg/dl (65-105)
[2021-08-19] MEDS: hetaSTARCH 6%/NACL 500 ML 250 ML IV CONT (14:31)
[2021-08-19 18:14] LABS: Glucose Point of Care 123 mg/dl (65-105)
[2021-08-19 23:54] LABS: Glucose Point of Care 124 mg/dl (65-105)
[2021-08-20] VITALS (29 sets, daily range): BP systolic 108–142; BP diastolic 71–95; PULSE 104–118; RESP 24–32; TEMP 37.2–37.6; O2SAT 92–98
[2021-08-20] MEDS: IPRATROPIUM BR 0.02% INH SOLN 0.5 MG/2.5 ML VIAL INHALATION ×4 (02:00→19:38)
[2021-08-20] MEDS: ALBUTEROL SULFATE NEB 2.5 MG/3 ML INH INHALATION ×4 (02:00→19:38)
[2021-08-20 04:26] LABS: Hematocrit 34.3 % (42.0-52.0); Hemoglobin 10.9 g/dL (14.0-18.0); Immature Platelet Fraction Pct 15.9 % (0.9-11.2); Mean Corpuscular HGB Conc 31.8 g/dl (32-36); Mean Corpuscular Hemoglobin 31.9 pg (26-34); Mean Corpuscular Volume 100.3 fl (80-100); Mean Platelet Volume 13.4 fl (7.4-10.4); Platelet Count Result 145 k/mm3 (150-375); Red Blood Count 3.42 M/mm3 (4.6-6.20); Red Cell Distribution Width 14.6 % (11.5-14.5); White Blood Count 13.7 K/mm3 (4.5-10.0)
[2021-08-20 04:33] LABS: Alanine Aminotransferase 31 U/L (6-50); Albumin Level 2.9 g/dL (3.5-5.1); Alkaline Phosphatase 72 U/L (38-126); Anion Gap 3 mmol/L (8-16); Aspartate Amino Transferase 31 U/L (17-59); Bilirubin,Total 0.8 mg/dL (0.2-1.3); Blood Urea Nitrogen 75 mg/dL (9-20); Calcium 8.5 mg/dL (8.4-10.2); Carbon Dioxide 36 mmol/L (22-30); Chloride 107 mmol/L (98-107); Estimated CRCL calculation 84 ml/min; Estimated Glomerular Filt Rate > 60; Glucose 112 mg/dL (65-110); Phosphorus 2.8 mg/dL (2.5-4.5); Sodium 146 mmol/L (137-145)
[2021-08-20] MEDS: FENTANYL 2,500MCG/NS250ML(*CRX 2,500 MCG/250 ML BAG IV CONT (04:33)
[2021-08-20] MEDS: MIDAZOLAM 100MG/NS 100ML(*CRX) 100 MG/100 ML BAG IV CONT (04:34)
[2021-08-20 04:50] LABS: Band Neutrophils Percent 4 % (0-6); Lymphocytes Absolute Manual 0.82 K/mm3 (1.1-4.5); Metamyelocytes Percent 4 %; Monocytes Absolute Manual 0.41 K/mm3 (0.1-0.90); Monocytes Percent Manual 3 % (3-9); Neutrophils Absolute Manual 11.91 K/mm3 (1.3-6.7); Neutrophils Percent Manual 83 % (46-73); Platelet Estimate Adequate (Adequate); Total Cells Counted 100
[2021-08-20 05:08] LABS: Alveolar/Arterial O2 Gradient 126.7 mmHg; Base Excess ABG 7.8 mEq/l (+/-2.0); Carboxyhemoglobin 0.4 % THb (0-2.0); Fractional Inspired Oxygen 40 %; HCO3 ABG 33.6 mEq/l (22.0-26.0); Methemoglobin ABG 0.3 %THb (0-1.5); Oxygen Content ABG 16.7 %vol (16.0-22.0); Oxygen Saturation ABG 97.5 % (95.0-100.0); Oxyhemoglobin 96.4 % THb (90.0-100.0); PCO2 ABG 52.4 mmHg (35.0-45.0); PO2 ABG 98.2 mmHg (80.0-100.0); PO2 FiO2 Ratio Arterial Blood 2.45 %; Reduced Hemoglobin 2.9 %THb (0-5.0); Total Hemoglobin 12.2 g/dL (12.0-18.0); pH ABG 7.425 (7.350-7.450)
[2021-08-20 05:09] LABS: Modified Allen's Test Pass; Site Drawn RIGHT RADIAL
[2021-08-20 05:10] LABS: Arterial Blood Gas PEEP 10 cmH2O; Arterial Blood Gas Vent Mode CMV; Arterial Blood Gas Ventilator rate 25 /MIN; Device VENTILATOR
[2021-08-20 05:11] LABS: Arterial Blood Gas Tidal Volume 450 ml
[2021-08-20] MEDS: CENTRAL LINE FLUSH 10 ML IV PUSH ×3 (05:54→20:54)
[2021-08-20] MEDS: LEVOTHYROXINE SODIUM 25 MCG TABLET FEED TUBE (05:54)
[2021-08-20] MEDS: FONDAPARINUX SODIUM 2.5 MG/0.5 ML SYRINGE SUB-Q (08:31)
[2021-08-20] MEDS: polyethylene glycoL 3350 17 GM POWD.PACK PO ×2 (08:32→17:24)
[2021-08-20] MEDS: ATORVASTATIN 40 MG TABLET FEED TUBE (08:32)
[2021-08-20] MEDS: DOCUSATE SODIUM LIQ 100 MG/10 ML UDC PO ×2 (08:32→20:53)
[2021-08-20] MEDS: ASPIRIN 325 MG TABLET PO (08:32)
[2021-08-20] MEDS: MINERAL OIL/WHITE PETROLATUM OINTMENT 1 APPLIC EACH EYE ×2 (08:33→20:53)
[2021-08-20] MEDS: PANTOPRAZOLE SODIUM IV 40 MG VIAL IV PUSH (08:33)
--- NOTE | 2021-08-20 08:43 | PM.IMPN ---
Progress Note: A&P Assessment and Plan (1) Septic shock: Code(s): A41.9 - Sepsis, unspecified organism; R65.21 - Severe sepsis with septic shock Status: Acute Assessment and Plan: Patient was hypotensive on admission felt related to pneumonia. Patient met sepsis criteria on admission with tachypnea, tachycardia, hypotension and fever. He also had leukopenia and thrombocytopenia felt related to the sepsis. Patient moved to the ICU. Blood cultures negative. Sputum cx negative. White count improved felt related to the steroids. Steroids were weaned off. He was weaned off vasopressin on 08/14 and Levophed on 08/18 but still requiring pressors intermittently. Dobutamine off 08/17. Fevers resolved. No DVT in UE/LE. Appreciate metal ceiling builder input. (2) Atrial fibrillation: Code(s): I48.91 - Unspecified atrial fibrillation Status: Acute Assessment and Plan: Patient developed AFib with RVR. This resulted in drop in blood pressure after IV metoprolol. Patient has since converted with amiodarone. Albuterol dose was decreased. TSH is normal. Amiodarone is off now. Cardiology following. Appreciate their input. We held on anticoagulation given the low platelet count but better so Arixtra added. (3) Acute respiratory failure: Code(s): J96.00 - Acute respiratory failure, unspecified whether with hypoxia or hypercapnia Status: Acute Assessment and Plan: Patient with acute respiratory failure felt related to pneumonia. He has known chronic secretion production probably related to esophageal stricture and chronic aspiration. He also drinks water on occasion for oral medications. CTA chest 08/15 showing persistent extensive bilateral PNA worse in the LLL. Concern for CAP vs aspiration PNA that has worsened to ARDS. Continue supportive care. Wean MV as tolerated. Continue IV abx and nebulizer treatments. Appreciate metal ceiling builder input. (4) Acute coronary syndrome: Code(s): I24.9 - Acute ischemic heart disease, unspecified Status: Acute Assessment and Plan: Patient had mildly elevated troponins on admission. Changes noted on telemetry and EKG 08/[address] elevation in the inferior leads consistent with STEMI. Cardiology was consulted but STEMI team not activated due to the severity of the patient's condition at the time. Aspirin was held initially due to TCP b ut resumed now. Echo shows EF of 40-45%, posterior inferior segments are hypodynamic, severely enlarged right ventricle with reduced systolic RV function. Cardiology felt that the severely dilated right ventricle is chronic which could be related to pulmonary hypertension from chronic aspiration (PAP could not be evaluated). CTA chest 08/14 shows extensive bilateral PNA but negative for PE and LE venous doppler negative for DVT. Repeat UE/LE dopplers negative for DVT. Possible Heart cath when patient more stable. Metoprolol was added but not given due to drop in BP. LFTs okay so Lipitor added. Continue medical management. (5) Pneumonia: Code(s): J18.9 - Pneumonia, unspecified organism Status: Acute Assessment and Plan: CXR was consistent with PNA. Vanco/Cefepime started on 08/13. CT chest 08/13 showing diffuse groundglass and consolidative opacities. CTA chest 08/17 showing extensive PNA. Fever noted but now resolved and probably related to to atelectasis. Abx adjusted at times but currently on Vanco/Cefepime (Day 8 of abx). Continue current abx for now. (6) Ileus: Code(s): K56.7 - Ileus, unspecified Status: Acute Assessment and Plan: Patient did develop an ileus. KUB showed mild gaseous distension of the ascending and transverse colon. NG tube was secured to suction. Repeat x-ray 08/17 reviewed showing nonspecific abdomen. TF started once Gtube changed out and he is tolerating TF well. NGT removed. Ileus resolved. (7) Altered mental status: Code(s): R41.82 - Altered
--- NOTE | 2021-08-20 11:37 | WPDINTPN ---
Progress Note: A&P Assessment and Plan (1) Acute respiratory failure: Code(s): J96.00 - Acute respiratory failure, unspecified whether with hypoxia or hypercapnia Status: Acute Assessment and Plan: Acute Respiratory failure secondary to pneumonia which could be aspiration versus community-acquired 08/13 Patient was emergently intubated in ICU CT scan showed Diffuse ground-glass and consolidative opacities. -remains on CMV mode of ventilation, 40% FiO2, peep of 10 ABGs reviewed Chest x-ray this morning: Extensive bilateral pulmonary infiltrates involving particularly the mid and lower lung zones, but with improvement of the degree of consolidation since 08/18/2021? Continue full mechanical ventilation support to prevent hypoxemia/hypercarbia and end organ damage. Low tidal volume ventilation strategy to prevent volutrauma Continue Bronchodilators 08/17: Diuresed well with no change in chest x-ray, went into AFib RVR dropped his blood pressures, required Levophed for short amount of time. - Auto diuresing (2) Septic shock: Code(s): A41.9 - Sepsis, unspecified organism; R65.21 - Severe sepsis with septic shock Status: Acute Assessment and Plan: Septic along with cardiogenic shock secondary to pneumonia, possible cardiogenic component -UA negative - urine Legionella and pneumococcal antigen: Not detected -08/13: Blood cultures negative x2 -continue vancomycin, cefepime (started on ). azithromycin dc'd 08/18 -patient has received adequate fluids since admission -OFF Levophed and vasopressin since 08/18 -likely cardiogenic shock given right sided dysfunction on echocardiogram secondary to STEMI -OFF dobutamine since 08/17 as he went into AFib RVR, was given metoprolol remained in AFib RVR and dropped his pressures, amiodarone was started with conversion to sinus rhythm. Patient was on Levophed briefly is currently off -off stress dose steroids 08/15: PICC line was inserted, femoral line was removed 08/19/2021: Bilateral lower extremity venous Dopplers were negative for DVT 08/14 echocardiogram: Showed EF of 40-45%, posterior and inferior segments are hyperdynamic, right ventricle chamber is severely enlarged, right ventricular systolic function is reduced (3) Pneumonia: Code(s): J18.9 - Pneumonia, unspecified organism Status: Acute Assessment and Plan: See above (4) Altered mental status: Code(s): R41.82 - Altered mental status, unspecified Status: Acute Assessment and Plan: Likely toxic metabolic encephalopathy from sepsis hypertension hypoxia and then he has received some Ativan and morphine He is now sedated for mechanical ventilation, opening eyes and following commands Unremarkable head CT Normal ammonia level Normal TSH level (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 PEG tube was flushed and aspirated with saline multiple times appears that it is now working in both directions. Will switch tube feeds to PEG tube. If the no issues will remove OG tube -appreciate GI following, PEG tube was exchanged on 08/17/2021 by GI and is working fine, patient tolerating tube feeds (6) Thrombocytopenia: Code(s): D69.6 - Thrombocytopenia, unspecified Status: Acute Assessment and Plan: Resolved Not sure of chronicity Again could be related to sepsis, medications Monitor and transfuse if needed -platelet counts have normalized -started patient on fondaparinux for DVT prophylaxis (7) Leukopenia: Code(s): D72.819 - Decreased white blood cell count, unspecified Status: Acute Assessment and Plan: Resolved -likely due to septic shock (8) History of throat cancer: Cod
[2021-08-20 12:22] LABS: Glucose Point of Care 127 mg/dl (65-105)
[2021-08-20 17:45] LABS: Glucose Point of Care 124 mg/dl (65-105)
[2021-08-20 23:37] LABS: Glucose Point of Care 168 mg/dl (65-105)
[2021-08-21] VITALS (30 sets, daily range): BP systolic 107–146; BP diastolic 64–102; PULSE 3–122; RESP 18–31; TEMP 36.8–37.8; O2SAT 92–100
[2021-08-21] MEDS: IPRATROPIUM BR 0.02% INH SOLN 0.5 MG/2.5 ML VIAL INHALATION ×4 (02:01→19:44)
[2021-08-21] MEDS: ALBUTEROL SULFATE NEB 2.5 MG/3 ML INH INHALATION ×4 (02:02→19:43)
[2021-08-21 05:41] LABS: Alveolar/Arterial O2 Gradient 128.1 mmHg; Base Excess ABG 9.3 mEq/l (+/-2.0); Carboxyhemoglobin 0.3 % THb (0-2.0); Fractional Inspired Oxygen 40 %; HCO3 ABG 36.3 mEq/l (22.0-26.0); Methemoglobin ABG 0.4 %THb (0-1.5); Oxygen Content ABG 16.5 %vol (16.0-22.0); Oxygen Saturation ABG 96.3 % (95.0-100.0); Oxyhemoglobin 95.2 % THb (90.0-100.0); PO2 ABG 86.7 mmHg (80.0-100.0); PO2 FiO2 Ratio Arterial Blood 2.17 %; Reduced Hemoglobin 4.1 %THb (0-5.0); Total Hemoglobin 12.3 g/dL (12.0-18.0); pH ABG 7.391 (7.350-7.450)
[2021-08-21] MEDS: LEVOTHYROXINE SODIUM 25 MCG TABLET FEED TUBE (05:42)
[2021-08-21] MEDS: CENTRAL LINE FLUSH 10 ML IV PUSH ×3 (05:42→21:58)
[2021-08-21 05:44] LABS: Device VENTILATOR; Modified Allen's Test Pass; PCO2 ABG 61.2 mmHg (35.0-45.0); Site Drawn RIGHT RADIAL
[2021-08-21 05:45] LABS: Arterial Blood Gas PEEP 10 cmH2O; Arterial Blood Gas Tidal Volume 450 ml; Arterial Blood Gas Vent Mode CMV; Arterial Blood Gas Ventilator rate 25 /MIN
[2021-08-21 05:51] LABS: Basophils Absolute Auto 0.1 K/mm3 (0.0-0.1); Basophils Percent Auto 0.5 % (0.2-1.2); Eosinophils Absolute Auto 0.2 K/mm3 (0-0.3); Eosinophils Percent Auto 1.3 % (0-4.4); Hematocrit 35.2 % (42.0-52.0); Hemoglobin 10.9 g/dL (14.0-18.0); Immature Granulocyte Absolute 0.66 K/mm3 (0.00-0.031); Immature Granulocyte Percent A 3.9 % (0-0.5); Lymphocytes Absolute Auto 0.51 K/mm3 (0.9-3.2); Mean Corpuscular Hemoglobin 31.1 pg (26-34); Mean Corpuscular Volume 100.6 fl (80-100); Monocytes Absolute Auto 0.7 K/mm3 (0.1-0.6); Monocytes Percent Auto 4.3 % (2.6-8.5); Neutrophils Absolute Auto 14.6 K/mm3 (1.3-6.7); Platelet Count Result 201 k/mm3 (150-375); Red Cell Distribution Width 14.6 % (11.5-14.5); White Blood Count 16.8 K/mm3 (4.5-10.0)
[2021-08-21 06:04] LABS: Alanine Aminotransferase 41 U/L (6-50); Albumin Level 3.1 g/dL (3.5-5.1); Alkaline Phosphatase 73 U/L (38-126); Anion Gap 3 mmol/L (8-16); Aspartate Amino Transferase 38 U/L (17-59); Bilirubin,Total 0.6 mg/dL (0.2-1.3); Blood Urea Nitrogen 74 mg/dL (9-20); Calcium 8.6 mg/dL (8.4-10.2); Carbon Dioxide 37 mmol/L (22-30); Chloride 106 mmol/L (98-107); Estimated CRCL calculation 96 ml/min; Estimated Glomerular Filt Rate > 60; Glucose 118 mg/dL (65-110); Phosphorus 4.3 mg/dL (2.5-4.5); Potassium 4.3 mmol/L (3.4-5.0); Sodium 146 mmol/L (137-145)
--- NOTE | 2021-08-21 08:25 | WPDINTPN ---
Progress Note: A&P Assessment and Plan (1) Acute respiratory failure: Code(s): J96.00 - Acute respiratory failure, unspecified whether with hypoxia or hypercapnia Status: Acute Assessment and Plan: Acute Respiratory failure secondary to pneumonia which could be aspiration versus community-acquired 08/13 Patient was emergently intubated in ICU CT scan showed Diffuse ground-glass and consolidative opacities. -remains on CMV mode of ventilation, 40% FiO2, peep of 10 ABGs reviewed Chest x-ray this morning: Persistent extensive diffuse bilateral pulmonary infiltrates, relatively stable since 08/21/2019? Continue full mechanical ventilation support to prevent hypoxemia/hypercarbia and end organ damage. Low tidal volume ventilation strategy to prevent volutrauma Continue Bronchodilators 08/17: Diuresed well with no change in chest x-ray, went into AFib RVR dropped his blood pressures, required Levophed for short amount of time. -now Auto diuresing (2) Septic shock: Code(s): A41.9 - Sepsis, unspecified organism; R65.21 - Severe sepsis with septic shock Status: Acute Assessment and Plan: Septic along with cardiogenic shock secondary to pneumonia, possible cardiogenic component -UA negative - urine Legionella and pneumococcal antigen: Not detected -08/13: Blood cultures negative x2 -patient has received adequate fluids since admission -OFF Levophed and vasopressin since 08/18 -likely cardiogenic shock given right sided dysfunction on echocardiogram secondary to STEMI -OFF dobutamine since 08/17 as he went into AFib RVR, was given metoprolol remained in AFib RVR and dropped his pressures, amiodarone was started with conversion to sinus rhythm. Patient was on Levophed briefly is currently off -off stress dose steroids -continue vancomycin, cefepime (started on , for a total of 10 days) azithromycin dc'd 08/18 08/15: PICC line was inserted, femoral line was removed 08/19/2021: Bilateral lower extremity venous Dopplers were negative for DVT 08/14 echocardiogram: Showed EF of 40-45%, posterior and inferior segments are hyperdynamic, right ventricle chamber is severely enlarged, right ventricular systolic function is reduced (3) Pneumonia: Code(s): J18.9 - Pneumonia, unspecified organism Status: Acute Assessment and Plan: See above (4) Altered mental status: Code(s): R41.82 - Altered mental status, unspecified Status: Acute Assessment and Plan: Likely toxic metabolic encephalopathy from sepsis hypertension hypoxia and then he has received some Ativan and morphine He is now sedated for mechanical ventilation, opening eyes and following commands Unremarkable head CT Normal ammonia level Normal TSH level (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 PEG tube was flushed and aspirated with saline multiple times appears that it is now working in both directions. Will switch tube feeds to PEG tube. If the no issues will remove OG tube -appreciate GI following, PEG tube was exchanged on 08/17/2021 by GI and is working fine, patient tolerating tube feeds (6) Thrombocytopenia: Code(s): D69.6 - Thrombocytopenia, unspecified Status: Acute Assessment and Plan: Resolved Not sure of chronicity Again could be related to sepsis, medications Monitor and transfuse if needed -platelet counts have normalized -started patient on fondaparinux for DVT prophylaxis on 08/20/2021 (7) Leukopenia: Code(s): D72.819 - Decreased white blood cell count, unspecified Status: Acute Assessment and Plan: Resolved -likely due to septic shock (8) History of throat cancer: Code(s): Z85.819 - Personal hi
[2021-08-21] MEDS: polyethylene glycoL 3350 17 GM POWD.PACK PO ×2 (08:29→20:00)
[2021-08-21] MEDS: ASPIRIN 325 MG TABLET PO (08:29)
[2021-08-21] MEDS: FONDAPARINUX SODIUM 2.5 MG/0.5 ML SYRINGE SUB-Q (08:29)
[2021-08-21] MEDS: ATORVASTATIN 40 MG TABLET FEED TUBE (08:30)
[2021-08-21] MEDS: PANTOPRAZOLE SODIUM IV 40 MG VIAL IV PUSH (08:31)
[2021-08-21] MEDS: DOCUSATE SODIUM LIQ 100 MG/10 ML UDC PO (08:31)
[2021-08-21] MEDS: MINERAL OIL/WHITE PETROLATUM OINTMENT 1 APPLIC EACH EYE ×2 (08:31→21:58)
--- NOTE | 2021-08-21 11:29 | PC.NURSE ---
Dr. Cueto notified of patient's agitation and restlessness. Dr. Cueto assessed the patient and ordered 2 mg Versed. Patient was still restless and tachycardic, so Dr. Cueto ordered 50 of rocuronium and an additional 2 mg versed. Patient was still tachycardic and hypertensive with decreased oxygenation. Dr. Cueto and respiratory therapist exchanged the ET tube bedside. X-ray was ordered to confirm placement.
[2021-08-21 12:16] LABS: Glucose Point of Care 108 mg/dl (65-105)
--- NOTE | 2021-08-21 15:11 | PM.IMPN ---
Progress Note: A&P Assessment and Plan (1) Septic shock: Code(s): A41.9 - Sepsis, unspecified organism; R65.21 - Severe sepsis with septic shock Status: Acute Assessment and Plan: Patient was hypotensive on admission felt related to pneumonia. Patient met sepsis criteria on admission with tachypnea, tachycardia, hypotension and fever. He also had leukopenia and thrombocytopenia felt related to the sepsis. Patient moved to the ICU. Blood cultures negative. Sputum cx negative. White count and plt count rebounded. Steroids were weaned off. He was weaned off vasopressin on 08/14 and Levophed on 08/18. Dobutamine off 08/17. Mild fevers still noted - atelectasis?. No DVT in UE/LE 08/18/21. Appreciate early morning input. (2) Atrial fibrillation: Code(s): I48.91 - Unspecified atrial fibrillation Status: Acute Assessment and Plan: Patient developed AFib with RVR. This resulted in drop in blood pressure after IV metoprolol. Patient converted with amiodarone. Albuterol dose was decreased. TSH is normal. Amiodarone is off now. Cardiology following. Appreciate their input. We held on anticoagulation given the low platelet count but better so Arixtra added. (3) Acute respiratory failure: Code(s): J96.00 - Acute respiratory failure, unspecified whether with hypoxia or hypercapnia Status: Acute Assessment and Plan: Patient with acute respiratory failure felt related to pneumonia. He has known chronic secretion production probably related to esophageal stricture and chronic aspiration. He also drinks water on occasion for oral medications. CTA chest 08/15 showing persistent extensive bilateral PNA worse in the LLL. Concern for CAP vs aspiration PNA that has worsened to ARDS. CXR showing some improvement. Continue supportive care. Wean MV as tolerated. Continue IV abx and nebulizer treatments. Appreciate early morning input. (4) Acute coronary syndrome: Code(s): I24.9 - Acute ischemic heart disease, unspecified Status: Acute Assessment and Plan: Patient had mildly elevated troponins on admission. On the morning of 08/14, changes noted on telemetry and EKG obtained showing ST elevation in the inferior leads consistent with STEMI. Cardiology was consulted but STEMI team not activated due to the severity of the patient's condition at the time. Aspirin was held initially due to TCP but resumed now. Echo shows EF of 40-45%, posterior inferior segments are hypodynamic, severely enlarged right ventricle with reduced systolic RV function. Cardiology felt that the severely dilated right ventricle is chronic which could be related to pulmonary hypertension from chronic aspiration (PAP could not be evaluated). CTA chest 08/14 shows extensive bilateral PNA but negative for PE and LE venous doppler negative for DVT. Repeat UE/LE dopplers again negative for DVT. Possible Heart cath when patient more stable. Metoprolol was added but not given due to drop in BP. LFTs okay so Lipitor added. Continue medical management. (5) Pneumonia: Code(s): J18.9 - Pneumonia, unspecified organism Status: Acute Assessment and Plan: CXR was consistent with PNA. Vanco/Cefepime started on 08/13. CT chest 08/13 showing diffuse groundglass and consolidative opacities. CTA chest 08/17 showing extensive PNA. Fever noted still probably related to to atelectasis. Abx adjusted at times but currently on Vanco/Cefepime (Day 9 of abx). Continue current abx for now. (6) Ileus: Code(s): K56.7 - Ileus, unspecified Status: Acute Assessment and Plan: Patient did develop an ileus. KUB showed mild gaseous distension of the ascending and transverse colon. NG tube was secured to suction. Repeat x-ray 08/17 reviewed showing nonspecific abdomen. TF resumed once Gtube changed out and he is tolerating TF well. NGT removed. Ileus resolved. +BMs (7) Altered mental status: Code(s): R41.82 -
[2021-08-21 18:14] LABS: Glucose Point of Care 113 mg/dl (65-105)
[2021-08-22] VITALS (31 sets, daily range): BP systolic 87–126; BP diastolic 56–82; PULSE 81–109; RESP 15–28; TEMP 37.3–37.9; O2SAT 93–99
[2021-08-22] MEDS: ALBUTEROL SULFATE NEB 2.5 MG/3 ML INH INHALATION ×4 (01:51→19:46)
[2021-08-22] MEDS: IPRATROPIUM BR 0.02% INH SOLN 0.5 MG/2.5 ML VIAL INHALATION ×4 (01:51→19:46)
[2021-08-22 05:02] LABS: Alveolar/Arterial O2 Gradient 183.3 mmHg; Carboxyhemoglobin 0.3 % THb (0-2.0); Fractional Inspired Oxygen 45 %; HCO3 ABG 32.3 mEq/l (22.0-26.0); Methemoglobin ABG 0.4 %THb (0-1.5); Oxygen Content ABG 15.3 %vol (16.0-22.0); Oxygen Saturation ABG 97.2 % (95.0-100.0); Oxyhemoglobin 95.5 % THb (90.0-100.0); PO2 ABG 87.5 mmHg (80.0-100.0); PO2 FiO2 Ratio Arterial Blood 1.94 %; Reduced Hemoglobin 3.8 %THb (0-5.0); Total Hemoglobin 11.3 g/dL (12.0-18.0); pH ABG 7.484 (7.350-7.450)
[2021-08-22 05:03] LABS: Arterial Blood Gas PEEP 10 cmH2O; Arterial Blood Gas Tidal Volume 450 ml; Arterial Blood Gas Vent Mode CMV; Arterial Blood Gas Ventilator rate 25 /MIN; Device VENTILATOR; Modified Allen's Test Unable to perform; Site Drawn RIGHT RADIAL
[2021-08-22] MEDS: LEVOTHYROXINE SODIUM 25 MCG TABLET FEED TUBE (05:36)
[2021-08-22] MEDS: CENTRAL LINE FLUSH 10 ML IV PUSH ×3 (05:37→20:50)
[2021-08-22] MEDS: FENTANYL 2,500MCG/NS250ML(*CRX 2,500 MCG/250 ML BAG IV CONT (05:37)
[2021-08-22] MEDS: MIDAZOLAM 100MG/NS 100ML(*CRX) 100 MG/100 ML BAG IV CONT (05:40)
[2021-08-22 05:41] LABS: Basophils Absolute Auto 0.1 K/mm3 (0.0-0.1); Basophils Percent Auto 0.4 % (0.2-1.2); Eosinophils Absolute Auto 0.2 K/mm3 (0-0.3); Eosinophils Percent Auto 1.1 % (0-4.4); Hematocrit 32.1 % (42.0-52.0); Hemoglobin 10.3 g/dL (14.0-18.0); Immature Granulocyte Absolute 0.41 K/mm3 (0.00-0.031); Immature Granulocyte Percent A 2.9 % (0-0.5); Lymphocytes Absolute Auto 0.57 K/mm3 (0.9-3.2); Mean Corpuscular HGB Conc 32.1 g/dl (32-36); Mean Corpuscular Volume 99.7 fl (80-100); Mean Platelet Volume 12.9 fl (7.4-10.4); Monocytes Absolute Auto 0.6 K/mm3 (0.1-0.6); Monocytes Percent Auto 4.2 % (2.6-8.5); Neutrophils Absolute Auto 12.4 K/mm3 (1.3-6.7); Neutrophils Percent Auto 87.4 % (45.5-73.1); Platelet Count Result 219 k/mm3 (150-375); Red Blood Count 3.22 M/mm3 (4.6-6.20); Red Cell Distribution Width 14.5 % (11.5-14.5); White Blood Count 14.2 K/mm3 (4.5-10.0)
[2021-08-22 05:53] LABS: Alanine Aminotransferase 46 U/L (6-50); Albumin Level 2.9 g/dL (3.5-5.1); Alkaline Phosphatase 70 U/L (38-126); Anion Gap 0 mmol/L (8-16); Aspartate Amino Transferase 40 U/L (17-59); Bilirubin,Total 0.7 mg/dL (0.2-1.3); Blood Urea Nitrogen 80 mg/dL (9-20); Calcium 8.7 mg/dL (8.4-10.2); Carbon Dioxide 39 mmol/L (22-30); Chloride 106 mmol/L (98-107); Estimated CRCL calculation 84 ml/min; Estimated Glomerular Filt Rate > 60; Glucose 108 mg/dL (65-110); Phosphorus 3.5 mg/dL (2.5-4.5); Potassium 4.1 mmol/L (3.4-5.0); Sodium 145 mmol/L (137-145)
[2021-08-22] MEDS: MINERAL OIL/WHITE PETROLATUM OINTMENT 1 APPLIC EACH EYE ×2 (08:40→20:53)
[2021-08-22] MEDS: FONDAPARINUX SODIUM 2.5 MG/0.5 ML SYRINGE SUB-Q (08:40)
[2021-08-22] MEDS: PANTOPRAZOLE SODIUM IV 40 MG VIAL IV PUSH (08:40)
[2021-08-22] MEDS: ASPIRIN 325 MG TABLET PO (08:40)
[2021-08-22] MEDS: ATORVASTATIN 40 MG TABLET FEED TUBE (08:41)
[2021-08-22 10:00] LABS: Vancomycin Trough 11.5 ug/mL (10.0-20.0)
--- NOTE | 2021-08-22 11:17 | PCNFU ---
Nutrition Follow-Up Complete: Increased protein needs as related to wounds as evidenced by Deep Tissue Presure injury reported. Goal:Meet estimated nutritional needs. Pt is meeting current goal. Continue with goal. Pt current nutrition is Vital 1.2 running at 75ml/hr which is goal rate. Berny BID in place for wound healing. Nutrition recommendation: Continue with current plan of care. Last recorded weight is 85.2 kg - stable at this time, noted up from 78.4kg on admit. Bowel Motility: +BM /5 Labs Reviewed: Hgb:10.3, HCT:32.1, BUN:80, Glu:113 Meds Noted:Colace, Reglan, Miralax, Versed, Fentanyl, Levophed, Vancomycin, Protonix, Synthroid. Skin: Deep tissue injury to coccyx Additional Notes: Patient remains on mechanical vent with tube feedings of Vital AF 1.2 at 75 ml/hr and tolerating well. Free water flush 30 ml q 4 hours. Totals provide 1980 kcals/ 124 gms protein/1338 ml water. Tube feeding are meeting 93% of caloric needs and 100% protein needs. Noted possible weaning trial from sedation. Agree with diet orders. Will follow daily in ICU rounds and monitor every Saturday and Saturday.
--- NOTE | 2021-08-22 11:48 | PM.PNCARD ---
Progress Note: A&P Assessment and Plan (1) Acute coronary syndrome: Code(s): I24.9 - Acute ischemic heart disease, unspecified Status: Acute Plan 66-year-old man who experienced inferior wall infarction while he was in the hospital with numerous comorbidities as well. He was not felt to be an acceptable candidate for emergency PCI. He has been treated medically and has been essentially stable. Episode of atrial fibrillation late last week which required amiodarone treatment for short time. He is making progress getting off the ventilator and will continue to follow his progress in the hospital. For this time aspirin and statin therapy are being provided. Depending on his hemodynamic status guideline directed medical therapy for mild LV dysfunction will be started after extubation as he stabilizes Ozzy Mehta MD [facility] Subjective Date/time seen: Date of service: 08/22/21 11:48 Interval history: Follow-up in this 66-year-old man with: Multiple comorbidities who experienced an inferior wall ST-elevation FL with moderate etgk-[id number]-rtyldnwy troponin rise while he was in the hospital. Because of his comorbidities noninvasive/medical treatment has been recommended. He has been stable. He did develop atrial fibrillation late last week and was treated with IV amiodarone for a while that has now been discontinued. Still intubated in the ICU but is alert and responsive. Exam Const: General: comfortable and no acute distress Other: Intubated white male appears to be essentially comfortable HENMT: Mouth: Yes moist mucous membranes Eyes: Sclera: sclerae normal Neck: Neck: supple and no JVD Resp: Other: Few central large airway rhonchi noted otherwise largely clear breath sounds Cardio: Rate: regular rate Rhythm: regular rhythm Other: No significant murmur no gallop GI: GI Palp: Yes Soft to palpation Auscultation: normal bowel sounds Skin: General skin exam: normal color Neuro: Other: Alert relatively comfortable on the ventilator Extrem: Other: No significant edema distal pulses are intact Objective Data Vital Signs Vital Signs: Vital Signs - 24 hr 08/21/21 12:00 08/21/21 12:00 08/21/21 12:00 Temperature Pulse Rate 96 Respiratory Rate Blood Pressure Pulse Oximetry Oxygen Delivery Mechanical Ventilation Fraction of Inspired Oxygen 40 40 08/21/21 12:00 08/21/21 13:50 08/21/21 14:03 Temperature 37.6 C Pulse Rate 96 93 98 Respiratory Rate 28 H 26 H 26 H Blood Pressure 117/78 Pulse Oximetry 96 Oxygen Delivery Fraction of Inspired Oxygen 08/21/21 13:51 08/21/21 14:00 08/21/21 14:00 Temperature 37.4 C Pulse Rate 93 109 H 107 H Respiratory Rate 24 H Blood Pressure 119/71 Pulse Oximetry 94 97 Oxygen Delivery Mechanical Ventilation Fraction of Inspired Oxygen 45 08/21/21 14:00 08/21/21 16:00 08/21/21 16:00 Temperature 37.4 C 37.4 C Pulse Rate 112 H 100 Respiratory Rate 26 H 31 H Blood Pressure 119/71 127/79 Pulse Oximetry 97 92 Oxygen Delivery Mechanical Ventilation Fraction of Inspired Oxygen 40 08/21/21 16:00 08/21/21 17:15 08/21/21 16:00 Temperature Pulse Rate 101 H 106 H Respiratory Rate Blood Pressure Pulse Oximetry 95 Oxygen Delivery Mechanical Ventilation Fraction of Inspired Oxygen 40 45 08/21/21 18:00 08/21/21 18:00 08/21/21 19:44 Temperature 37.4 C Pulse Rate 109 H 109 H 118 H Respiratory Rate 24 H 26 H Blood Pressure 131/82 Pulse Oximetry 97 Oxygen Delivery Fraction of Inspired Oxygen 08/21/21 19:47 08/21/21 19:46 08/21/21 19:55 Temperature Pulse Rate 116 H 118 H 116 H Respiratory Rate 26 H Blood Pressure Pulse Oximetry 97 97 Oxygen Delivery Mechanical Ventilation Mechanical Ventilation Fraction of Inspired Oxygen 45 45 08/21/21 19:57 08/21/21 19:57 08/21/21 19:56 Temperature 36.8 C Pulse Rate 112 H 116 H Respiratory Rate 2
--- NOTE | 2021-08-22 13:37 | WPDINTPN ---
Progress Note: A&P Assessment and Plan (1) Acute respiratory failure: Code(s): J96.00 - Acute respiratory failure, unspecified whether with hypoxia or hypercapnia Status: Acute Assessment and Plan: Acute Respiratory failure secondary to pneumonia which could be aspiration versus community-acquired 08/13 Patient was emergently intubated in ICU CT scan showed Diffuse ground-glass and consolidative opacities. -remains on CMV mode of ventilation, 40% FiO2, peep of 10, will decrease PEEP to 8, will place patient on ASV mode, if he does well will switch to PSV ABGs reviewed Chest x-ray this morning:Persistent diffuse bilateral interstitial and airspace opacities which could represent pulmonary edema and/or pulmonary edema. Continue full mechanical ventilation support to prevent hypoxemia/hypercarbia and end organ damage. Low tidal volume ventilation strategy to prevent volutrauma Continue Bronchodilators 08/17: Diuresed well with no change in chest x-ray, went into AFib RVR dropped his blood pressures, required Levophed for short amount of time. -patient O2 diuresing (2) Septic shock: Code(s): A41.9 - Sepsis, unspecified organism; R65.21 - Severe sepsis with septic shock Status: Acute Assessment and Plan: Septic along with cardiogenic shock secondary to pneumonia, possible cardiogenic component -UA negative - urine Legionella and pneumococcal antigen: Not detected -08/13: Blood cultures negative x2 -patient has received adequate fluids since admission -OFF Levophed and vasopressin since 08/18 -likely cardiogenic shock given right sided dysfunction on echocardiogram secondary to STEMI -OFF dobutamine since 08/17 as he went into AFib RVR, was given metoprolol remained in AFib RVR and dropped his pressures, amiodarone was started with conversion to sinus rhythm. Patient was on Levophed briefly is currently off -off stress dose steroids -continue vancomycin, cefepime (started on , for a total of 10 days) azithromycin dc'd 08/18 08/15: PICC line was inserted, femoral line was removed 08/19/2021: Bilateral lower extremity venous Dopplers were negative for DVT 08/14 echocardiogram: Showed EF of 40-45%, posterior and inferior segments are hyperdynamic, right ventricle chamber is severely enlarged, right ventricular systolic function is reduced (3) Pneumonia: Code(s): J18.9 - Pneumonia, unspecified organism Status: Acute Assessment and Plan: See above (4) Altered mental status: Code(s): R41.82 - Altered mental status, unspecified Status: Acute Assessment and Plan: Likely toxic metabolic encephalopathy from sepsis hypertension hypoxia and then he has received some Ativan and morphine He is now sedated for mechanical ventilation, opening eyes and following commands Unremarkable head CT Normal ammonia level Normal TSH level (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 PEG tube was flushed and aspirated with saline multiple times appears that it is now working in both directions. Will switch tube feeds to PEG tube. If the no issues will remove OG tube -appreciate GI following, PEG tube was exchanged on 08/17/2021 by GI and is working fine, patient tolerating tube feeds (6) Thrombocytopenia: Code(s): D69.6 - Thrombocytopenia, unspecified Status: Acute Assessment and Plan: Resolved Not sure of chronicity Again could be related to sepsis, medications Monitor and transfuse if needed -platelet counts have normalized -started patient on fondaparinux for DVT prophylaxis on 08/20/2021 (7) Leukopenia: Code(s): D72.819 - Decreased white blood cell count, unspecified Status: Acute Assessme
[2021-08-22] MEDS: ACETAMINOPHEN 325 MG TABLET 650 MG FEED TUBE (14:28)
[2021-08-22] MEDS: DOCUSATE SODIUM LIQ 100 MG/10 ML UDC PO (20:54)
[2021-08-23] VITALS (28 sets, daily range): BP systolic 86–129; BP diastolic 54–83; PULSE 89–108; RESP 17–33; TEMP 37.2–37.6; O2SAT 92–99
[2021-08-23] MEDS: IPRATROPIUM BR 0.02% INH SOLN 0.5 MG/2.5 ML VIAL INHALATION ×4 (01:43→19:54)
[2021-08-23] MEDS: ALBUTEROL SULFATE NEB 2.5 MG/3 ML INH INHALATION ×4 (01:43→19:54)
[2021-08-23 05:12] LABS: Base Excess ABG 8.8 mEq/l (+/-2.0); Carboxyhemoglobin 0.1 % THb (0-2.0); Fractional Inspired Oxygen 40 %; HCO3 ABG 32.9 mEq/l (22.0-26.0); Methemoglobin ABG 0.5 %THb (0-1.5); Oxygen Content ABG 15.2 %vol (16.0-22.0); Oxygen Saturation ABG 96.6 % (95.0-100.0); Oxyhemoglobin 94.4 % THb (90.0-100.0); PCO2 ABG 42.8 mmHg (35.0-45.0); Total Hemoglobin 11.4 g/dL (12.0-18.0)
[2021-08-23 05:13] LABS: Device VENTILATOR; Modified Allen's Test Pass; Site Drawn RIGHT RADIAL; pH ABG 7.503 (7.350-7.450)
[2021-08-23 05:14] LABS: Arterial Blood Gas PEEP 8 cmH2O; Arterial Blood Gas Vent Mode ASV
[2021-08-23 05:43] LABS: Basophils Percent Auto 0.2 % (0.2-1.2); Eosinophils Absolute Auto 0.1 K/mm3 (0-0.3); Eosinophils Percent Auto 0.7 % (0-4.4); Hematocrit 30.9 % (42.0-52.0); Hemoglobin 9.8 g/dL (14.0-18.0); Immature Granulocyte Absolute 0.27 K/mm3 (0.00-0.031); Immature Granulocyte Percent A 1.7 % (0-0.5); Lymphocytes Absolute Auto 0.47 K/mm3 (0.9-3.2); Lymphocytes Percent Auto 2.9 % (18.3-44.2); Mean Corpuscular HGB Conc 31.7 g/dl (32-36); Mean Corpuscular Hemoglobin 31.6 pg (26-34); Mean Corpuscular Volume 99.7 fl (80-100); Mean Platelet Volume 12.8 fl (7.4-10.4); Monocytes Absolute Auto 0.7 K/mm3 (0.1-0.6); Monocytes Percent Auto 4.4 % (2.6-8.5); Neutrophils Absolute Auto 14.4 K/mm3 (1.3-6.7); Neutrophils Percent Auto 90.1 % (45.5-73.1); Platelet Count Result 212 k/mm3 (150-375); Red Cell Distribution Width 14.2 % (11.5-14.5)
[2021-08-23 05:51] LABS: Alanine Aminotransferase 56 U/L (6-50); Alkaline Phosphatase 73 U/L (38-126); Anion Gap 2 mmol/L (8-16); Aspartate Amino Transferase 48 U/L (17-59); Bilirubin,Total 0.5 mg/dL (0.2-1.3); Blood Urea Nitrogen 82 mg/dL (9-20); Calcium 8.6 mg/dL (8.4-10.2); Carbon Dioxide 37 mmol/L (22-30); Chloride 106 mmol/L (98-107); Estimated CRCL calculation 96 ml/min; Estimated Glomerular Filt Rate > 60; Glucose 136 mg/dL (65-110); Magnesium 2.1 mg/dL (1.6-2.3); Phosphorus 3.2 mg/dL (2.5-4.5); Potassium 3.8 mmol/L (3.4-5.0); Sodium 145 mmol/L (137-145)
[2021-08-23] MEDS: LEVOTHYROXINE SODIUM 25 MCG TABLET FEED TUBE (05:51)
[2021-08-23] MEDS: CENTRAL LINE FLUSH 10 ML IV PUSH ×3 (05:51→20:09)
--- NOTE | 2021-08-23 07:37 | PM.PNCARD ---
Progress Note: A&P Assessment and Plan (1) Acute coronary syndrome: Code(s): I24.9 - Acute ischemic heart disease, unspecified Status: Acute Plan 66-year-old man with inferior wall infarction moderate infarction by enzyme criteria with ejection fraction still 40-45% by echo. As stated in my previous notes he does have more chronic right ventricular dysfunction with severe RV dilation and akinesia. in my opinion this is likely a sequelae of his chronic respiratory/ aspiration problems. In any event he is hemodynamically stable am going to start some metoprolol per his feeding tube and follow with you. Hopefully will be able to be extubated relatively soon. Once again a very conservative approach to his case is appropriate in my opinion Ozzy Mehta MD [facility] Subjective Date/time seen: date of service:08/23/21 07:37 Interval history: Follow-up visit in this 66-year-old man with: Inferior wall myocardial infarction occurred while he was in the hospital with pneumonia on mechanical ventilator support. Because of comorbidities very conservative approach was taken to treating this. Today he is awake alert on the ventilator hope to be extubated relatively soon. Has not required any pressors for several days. Exam Const: General: comfortable and no acute distress Other: Alert gentleman on mechanical ventilator no distress HENMT: Mouth: Yes moist mucous membranes Eyes: Sclera: sclerae normal Neck: Neck: supple Other: mild elevation of jugular venous pressure Resp: Other: few central rhonchi are noted no wheezing no rales Cardio: Rate: regular rate Rhythm: regular rhythm Other: occasional PVCs no murmur GI: GI Palp: Yes Soft to palpation Auscultation: normal bowel sounds Skin: General skin exam: normal color Neuro: Other: alert on the ventilator Extrem: Other: no peripheral edema Objective Data Vital Signs Vital Signs: Vital Signs - 24 hr 08/22/21 08:47 08/22/21 09:00 08/22/21 09:02 Temperature Pulse Rate 107 H 108 H 108 H Respiratory Rate 28 H 23 H Blood Pressure Pulse Oximetry 96 Oxygen Delivery Mechanical Ventilation Fraction of Inspired Oxygen 45 08/22/21 08:00 08/22/21 08:00 08/22/21 08:00 Temperature 37.7 C H Pulse Rate 102 H 102 H 102 H Respiratory Rate 27 H 27 H Blood Pressure 114/71 Pulse Oximetry 94 94 Oxygen Delivery Mechanical Ventilation Fraction of Inspired Oxygen 45 08/22/21 08:00 08/22/21 10:00 08/22/21 10:00 Temperature 37.7 C H Pulse Rate 102 H 102 H Respiratory Rate 27 H Blood Pressure 117/71 Pulse Oximetry 94 Oxygen Delivery Fraction of Inspired Oxygen 45 08/22/21 11:05 08/22/21 12:00 08/22/21 12:00 Temperature Pulse Rate 109 H 103 H 102 H Respiratory Rate 21 H Blood Pressure Pulse Oximetry 96 94 Oxygen Delivery Mechanical Ventilation Mechanical Ventilation Fraction of Inspired Oxygen 45 45 08/22/21 12:00 08/22/21 14:28 08/22/21 12:00 Temperature 37.8 C H 37.9 C H Pulse Rate 102 H Respiratory Rate 22 H Blood Pressure 103/56 L Pulse Oximetry 94 Oxygen Delivery Fraction of Inspired Oxygen 45 08/22/21 15:42 08/22/21 15:46 08/22/21 15:53 Temperature Pulse Rate 101 H 92 92 Respiratory Rate 21 H 22 H Blood Pressure Pulse Oximetry 97 Oxygen Delivery Mechanical Ventilation Fraction of Inspired Oxygen 45 08/22/21 14:00 08/22/21 14:00 08/22/21 16:00 Temperature Pulse Rate 103 H 103 H 102 H Respiratory Rate 21 H 17 Blood Pressure 121/66 Pulse Oximetry 94 96 Oxygen Delivery Mechanical Ventilation Fraction of Inspired Oxygen 45 08/22/21 16:00 08/22/21 16:00 08/22/21 16:00 Temperature 37.4 C Pulse Rate 96 96 Respiratory Rate 23 H Blood Pressure 104/63 Pulse Oximetry 96 Oxygen Delivery Fraction of Inspired Oxygen 45 08/22/21 18:00 08/22/21 18:37 08/22/21 18:00 Temperature 37.3 C
--- NOTE | 2021-08-23 08:43 | PCRCNOTE ---
pt placed on 06/25 SBT at 40% Sp02 at 08:40
--- NOTE | 2021-08-23 08:46 | PCRCNOTE ---
pt placed on 58 40% Fi02 SBT at 08:40
[2021-08-23] MEDS: PANTOPRAZOLE SODIUM IV 40 MG VIAL IV PUSH (09:00)
[2021-08-23] MEDS: METOPROLOL TARTRATE 25 MG TABLET FEED TUBE ×2 (09:00→20:08)
[2021-08-23] MEDS: MINERAL OIL/WHITE PETROLATUM OINTMENT 1 APPLIC EACH EYE ×2 (09:01→20:07)
[2021-08-23] MEDS: FONDAPARINUX SODIUM 2.5 MG/0.5 ML SYRINGE SUB-Q (09:01)
[2021-08-23] MEDS: ASPIRIN 325 MG TABLET PO (09:01)
[2021-08-23] MEDS: ATORVASTATIN 40 MG TABLET FEED TUBE (09:01)
[2021-08-23] MEDS: FUROSEMIDE INJ 40 MG/4 ML VIAL IV PUSH (09:03)
--- NOTE | 2021-08-23 09:53 | PCRCNOTE ---
SBT failed, returned to ASV
--- NOTE | 2021-08-23 10:22 | PCFNICU ---
ICU Rounding Note: Pt current nutrition is Vital 1.2 @ 75ml/hr, KATIE BID. Nutrition recommendation: Continue with current plan of care Last recorded weight is 84.6 kg - noted pt has gained a significant amount of weight since admission. Being diuresed today. Bowel Motility: Multiple soft BMs, pt is on miralax, colace, dulcolax - nursing to decrease at this time Labs Reviewed: hgb:9.8, HCT:30.9, Alb:3.0, BUN:82, Glu:136 Meds Noted: Protonix, versed, lasix Skin: deep tissue area to coccyx Additional Notes: Pt continues on same Tube feeds. Tolerating well. Agree with diet orders, agree to decrease laxatives at this time due to stool output . Following daily in ICU rounds. Will monitor every Saturday and Saturday..
--- NOTE | 2021-08-23 11:15 | WPDINTPN ---
Progress Note: A&P Assessment and Plan (1) Acute respiratory failure: Code(s): J96.00 - Acute respiratory failure, unspecified whether with hypoxia or hypercapnia Status: Acute Assessment and Plan: Acute Respiratory failure secondary to pneumonia which could be aspiration versus community-acquired 08/13 Patient was emergently intubated in ICU CT scan showed Diffuse ground-glass and consolidative opacities. -remains on CMV mode of ventilation, 40% FiO2, peep of 8, -I tried pressure support ventilation trial of 06/25 but patient failed with high RSBI and tachypnea -patient is currently in ASV mode. I will change minute ventilation to 80% ABGs reviewed Chest x-ray this morning:Persistent diffuse bilateral interstitial and airspace opacities which could represent pulmonary edema and/or pulmonary edema. -will give a dose of Lasix Continue full mechanical ventilation support to prevent hypoxemia/hypercarbia and end organ damage. Low tidal volume ventilation strategy to prevent volutrauma Continue Bronchodilators (2) Septic shock: Code(s): A41.9 - Sepsis, unspecified organism; R65.21 - Severe sepsis with septic shock Status: Acute Assessment and Plan: Septic along with cardiogenic shock secondary to pneumonia, possible cardiogenic component -UA negative - urine Legionella and pneumococcal antigen: Not detected -08/13: Blood cultures negative x2 -patient has received adequate fluids since admission -OFF Levophed and vasopressin since 08/18 -likely cardiogenic shock given right sided dysfunction on echocardiogram secondary to STEMI -OFF dobutamine since 08/17 as he went into AFib RVR, was given metoprolol remained in AFib RVR and dropped his pressures, amiodarone was started with conversion to sinus rhythm. Patient was on Levophed briefly is currently off -off stress dose steroids -continue vancomycin, cefepime to the end of the today 08/23 to complete a 10 day course, azithromycin dc'd 08/18 08/15: PICC line was inserted, femoral line was removed 08/19/2021: Bilateral lower extremity venous Dopplers were negative for DVT 08/14 echocardiogram: Showed EF of 40-45%, posterior and inferior segments are hyperdynamic, right ventricle chamber is severely enlarged, right ventricular systolic function is reduced (3) Pneumonia: Code(s): J18.9 - Pneumonia, unspecified organism Status: Acute Assessment and Plan: See above (4) Altered mental status: Code(s): R41.82 - Altered mental status, unspecified Status: Acute Assessment and Plan: Likely toxic metabolic encephalopathy from sepsis hypertension hypoxia and then he has received some Ativan and morphine He is now sedated for mechanical ventilation, opening eyes and following commands Unremarkable head CT Normal ammonia level Normal TSH level (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 PEG tube was flushed and aspirated with saline multiple times appears that it is now working in both directions. - GI following, PEG tube was exchanged on 08/17/2021 by GI and is working fine, patient tolerating tube feeds (6) Thrombocytopenia: Code(s): D69.6 - Thrombocytopenia, unspecified Status: Acute Assessment and Plan: Resolved Not sure of chronicity Again could be related to sepsis, medications Monitor and transfuse if needed -platelet counts have normalized -started patient on fondaparinux for DVT prophylaxis on 08/20/2021 (7) Leukopenia: Code(s): D72.819 - Decreased white blood cell count, unspecified Status: Acute Assessment and Plan: Resolved - now leukocytosis -likely due to septic shock (8) History of throat cancer: Code(s): Z85.819 - Per
[2021-08-23 12:31] LABS: Glucose Point of Care 105 mg/dl (65-105)
[2021-08-23 17:28] LABS: Glucose Point of Care 130 mg/dl (65-105)
[2021-08-23 23:29] LABS: Glucose Point of Care 130 mg/dl (65-105)
[2021-08-24] VITALS (32 sets, daily range): BP systolic 66–147; BP diastolic 45–92; PULSE 86–111; RESP 18–37; TEMP 37.1–38; O2SAT 87–100
[2021-08-24] MEDS: IPRATROPIUM BR 0.02% INH SOLN 0.5 MG/2.5 ML VIAL INHALATION ×4 (01:59→20:00)
[2021-08-24] MEDS: ALBUTEROL SULFATE NEB 2.5 MG/3 ML INH INHALATION ×4 (02:00→20:34)
[2021-08-24] MEDS: ACETAMINOPHEN 325 MG TABLET 650 MG FEED TUBE (02:31)
--- NOTE | 2021-08-24 02:40 | PC.NURSE ---
Pt's O2 sats 87-89%, RR upper 30s. Pt nods his head that he is in pain. Attempts to suction pt and increase in sedation made no improvement. Pt switched back to CMV with previous settings.
--- NOTE | 2021-08-24 02:46 | PCRCNOTE ---
Switched patient back to CMV at this time due to rapid shallow breathing. RR in the high 30's low 40's. Tidal volumes 200-350. SPo2 dropped in the '80s.
[2021-08-24 04:58] LABS: Alveolar/Arterial O2 Gradient 202.9 mmHg; Base Excess ABG 8.3 mEq/l (+/-2.0); Carboxyhemoglobin 0.3 % THb (0-2.0); Fractional Inspired Oxygen 50 %; HCO3 ABG 35.9 mEq/l (22.0-26.0); Methemoglobin ABG 0.6 %THb (0-1.5); Oxygen Content ABG 19.1 %vol (16.0-22.0); Oxygen Saturation ABG 95.6 % (95.0-100.0); Oxyhemoglobin 94.2 % THb (90.0-100.0); PO2 ABG 82.6 mmHg (80.0-100.0); PO2 FiO2 Ratio Arterial Blood 1.65 %; Reduced Hemoglobin 4.9 %THb (0-5.0); Total Hemoglobin 14.4 g/dL (12.0-18.0); pH ABG 7.373 (7.350-7.450)
[2021-08-24 05:04] LABS: PCO2 ABG 63.1 mmHg (35.0-45.0)
[2021-08-24 05:05] LABS: Arterial Blood Gas PEEP 10 cmH2O; Arterial Blood Gas Tidal Volume 450 ml; Arterial Blood Gas Vent Mode CMV; Arterial Blood Gas Ventilator rate 25 /MIN; Device VENTILATOR; Modified Allen's Test Unable to perform; Site Drawn RIGHT RADIAL
[2021-08-24 05:12] LABS: Hematocrit 31.1 % (42.0-52.0); Hemoglobin 10.2 g/dL (14.0-18.0); Mean Corpuscular HGB Conc 32.8 g/dl (32-36); Mean Corpuscular Hemoglobin 32.4 pg (26-34); Mean Corpuscular Volume 98.7 fl (80-100); Mean Platelet Volume 12.7 fl (7.4-10.4); Platelet Count Result 254 k/mm3 (150-375); Red Blood Count 3.15 M/mm3 (4.6-6.20); White Blood Count 25.2 K/mm3 (4.5-10.0)
[2021-08-24 05:24] LABS: Alanine Aminotransferase 65 U/L (6-50); Albumin Level 2.8 g/dL (3.5-5.1); Alkaline Phosphatase 72 U/L (38-126); Anion Gap 2 mmol/L (8-16); Aspartate Amino Transferase 51 U/L (17-59); Bilirubin,Total 0.4 mg/dL (0.2-1.3); Blood Urea Nitrogen 75 mg/dL (9-20); Calcium 8.9 mg/dL (8.4-10.2); Carbon Dioxide 37 mmol/L (22-30); Chloride 105 mmol/L (98-107); Estimated CRCL calculation 96 ml/min; Estimated Glomerular Filt Rate > 60; Glucose 125 mg/dL (65-110); Magnesium 2.1 mg/dL (1.6-2.3); Potassium 3.8 mmol/L (3.4-5.0); Sodium 144 mmol/L (137-145)
[2021-08-24] MEDS: LEVOTHYROXINE SODIUM 25 MCG TABLET FEED TUBE (05:49)
[2021-08-24] MEDS: CENTRAL LINE FLUSH 10 ML IV PUSH ×3 (05:49→21:58)
[2021-08-24 09:02] LABS: Lipase 91 U/L (23-300)
--- NOTE | 2021-08-24 09:27 | PM.IMPN ---
Progress Note: A&P Assessment and Plan (1) Acute respiratory failure: Code(s): J96.00 - Acute respiratory failure, unspecified whether with hypoxia or hypercapnia Status: Acute Assessment and Plan: Acute Respiratory failure secondary to pneumonia which could be aspiration versus community-acquired. 08/13 Patient was emergently intubated in ICU CTA chest 08/14 Extensive bilateral pneumonia, greatest in the left lower lobe but no PE. Remains intubated and sedated. Chest x-ray this morning:Endotracheal tube tip 9.1 cm above the doug, Interstitial and airspace opacities in the bilateral mid and lower lung zones consistent with mild pulmonary edema and Small left pleural effusion with retrocardiac consolidation which could represent atelectasis or pneumonia. Now having fevers 08/24: Consider atelectasis if ET tube was riding high. Consider aspiration. -- Continue full mechanical ventilation support to prevent hypoxemia/hypercarbia and end organ damage. -- Continue Bronchodilators -- Cultures have been recollected. ET tube has been readjusted. Appreciate bow rehairer input. (2) Septic shock: Code(s): A41.9 - Sepsis, unspecified organism; R65.21 - Severe sepsis with septic shock Status: Acute Assessment and Plan: Septic shock along with cardiogenic shock secondary to pneumonia, possible cardiogenic component UA 08/13 not consistent with UTI Urine Legionella and pneumococcal antigen negative Blood cultures 08/13 negative x2. Sputum 08/16 negative. Patient has received adequate fluids resuscitation. OFF Levophed and vasopressin since 08/18 Likely cardiogenic shock given right sided dysfunction on echocardiogram secondary to STEMI treated with dobutamine OFF dobutamine since 08/17 as he went into AFib RVR, was given metoprolol but dropped his blood pressures; Amiodarone was started with conversion to sinus rhythm. Patient was on Levophed briefly is currently off Off stress dose steroids Finished 10 day course of abx with vancomycin and cefepime ending 08/23; Azithromycin dc'd 08/18 08/15: PICC line was inserted, femoral line was removed 08/18/2021: Bilateral upper and lower extremity venous Dopplers were negative for DVT Now having fevers again and WBC up to 25K concerning for infectious process -- repeat cultures -- Ct sinus and chest ordered (3) Pneumonia: Code(s): J18.9 - Pneumonia, unspecified organism Status: Acute Assessment and Plan: See above (4) Altered mental status: Code(s): R41.82 - Altered mental status, unspecified Status: Acute Assessment and Plan: Likely toxic metabolic encephalopathy from sepsis He is now sedated for mechanical ventilation, opening eyes and following commands Unremarkable head CT Normal ammonia level Normal TSH level -- follow (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 Ultimately, PEG tube was exchanged on 08/17/2021 by GI and is working fine Patient tolerating tube feeds -- appreciate GI input (6) Thrombocytopenia: Code(s): D69.6 - Thrombocytopenia, unspecified Status: Acute Assessment and Plan: Napoleon related to overwhelmnig sepsis Plt count dropped to 44K but now has normalized. -- Monitor and transfuse if needed -- started on fondaparinux on 08/20/2021 and toelrating well (7) Leukopenia: Code(s): D72.819 - Decreased white blood cell count, unspecified Status: Acute Assessment and Plan: WBC was 1300 on admission related to overwhelming sepsis. WBC normalized and now responding to systemic changes WBC 25K today likely due to occult infection. --workup for infectious process as mentioned above. (8) History of throat cancer:
[2021-08-24] MEDS: MINERAL OIL/WHITE PETROLATUM OINTMENT 1 APPLIC EACH EYE ×2 (09:53→21:58)
[2021-08-24] MEDS: PANTOPRAZOLE SODIUM IV 40 MG VIAL IV PUSH (09:53)
[2021-08-24] MEDS: ATORVASTATIN 40 MG TABLET FEED TUBE (09:54)
[2021-08-24] MEDS: METOPROLOL TARTRATE 12.5 MG TABLET FEED TUBE ×2 (09:54→20:29)
[2021-08-24] MEDS: ASPIRIN 325 MG TABLET PO (09:54)
[2021-08-24] MEDS: FONDAPARINUX SODIUM 2.5 MG/0.5 ML SYRINGE SUB-Q (09:54)
--- NOTE | 2021-08-24 11:28 | WPDINTPN ---
Progress Note: A&P Assessment and Plan (1) Acute respiratory failure: Code(s): J96.00 - Acute respiratory failure, unspecified whether with hypoxia or hypercapnia Status: Acute Assessment and Plan: Acute Respiratory failure secondary to pneumonia which could be aspiration versus community-acquired 08/13 Patient was emergently intubated in ICU CT scan showed Diffuse ground-glass and consolidative opacities. -chest x-ray reviewed and advance ET tube back to 28 cm at the lip -patient failed his PSV trial yesterday and was placed back on ASV mode. At night patient was tachypneic and desaturating. He was switched to CMV mode. -currently on 8 of PEEP and 50% FiO2 -hold diuretics due to soft blood pressure ABGs reviewed Plan to repeat CT chest due to persistent fevers Continue full mechanical ventilation support to prevent hypoxemia/hypercarbia and end organ damage. Low tidal volume ventilation strategy to prevent volutrauma Continue Bronchodilators Patient does not appear to be ready to wean at this time. I will continue to try over next few days but if patient continues to fail he may need tracheostomy. Patient was significantly weak and debilitated even before he got sick. (2) Septic shock: Code(s): A41.9 - Sepsis, unspecified organism; R65.21 - Severe sepsis with septic shock Status: Acute Assessment and Plan: Septic along with cardiogenic shock secondary to pneumonia, possible cardiogenic component -UA negative - urine Legionella and pneumococcal antigen: Not detected -08/13: Blood cultures negative x2 -patient has received adequate fluids since admission -OFF Levophed and vasopressin since 08/18 -likely cardiogenic shock given right sided dysfunction on echocardiogram secondary to STEMI -OFF dobutamine since 08/17 as he went into AFib RVR, was given metoprolol remained in AFib RVR and dropped his pressures, amiodarone was started with conversion to sinus rhythm. Patient was on Levophed briefly is currently off -off stress dose steroids -patient completed a 10 day course of vancomycin, cefepime on 08/23, azithromycin dc'd 08/18 08/15: PICC line was inserted, femoral line was removed 08/19/2021: Bilateral lower extremity venous Dopplers were negative for DVT 08/14 echocardiogram: Showed EF of 40-45%, posterior and inferior segments are hyperdynamic, right ventricle chamber is severely enlarged, right ventricular systolic function is reduced -08/[address] sinuses and CT chest in light of increased oxygen requirement Check lipase Check sputum and blood cultures Replace Vanessa and check UA Check procalcitonin (3) Pneumonia: Code(s): J18.9 - Pneumonia, unspecified organism Status: Acute Assessment and Plan: Urine Legionella pneumococcal influenza were negative COVID PCR were negative (4) Altered mental status: Code(s): R41.82 - Altered mental status, unspecified Status: Acute Assessment and Plan: Likely toxic metabolic encephalopathy from sepsis hypertension hypoxia and then he has received some Ativan and morphine He is now sedated for mechanical ventilation, opening eyes and following commands Unremarkable head CT Normal ammonia level Normal TSH level (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 PEG tube was flushed and aspirated with saline multiple times appears that it is now working in both directions. - GI following, PEG tube was exchanged on 08/17/2021 by GI and is working fine, patient tolerating tube feeds (6) Thrombocytopenia: Code(s): D69.6 - Thrombocytopenia, unspecified Status: Acute Assessment and Plan: Resolved Not sure of chronicity Again could be related to sepsis, med
--- NOTE | 2021-08-24 11:35 | PM.PNCARD ---
Progress Note: A&P Assessment and Plan (1) Right heart failure: Code(s): I50.810 - Right heart failure, unspecified Status: Acute (2) Acute coronary syndrome: Code(s): I24.9 - Acute ischemic heart disease, unspecified Status: Acute Plan 66-year-old man with multiple comorbidities prior operation for throat cancer. Patient with a chronic G-tube and evidence of chronic previous aspirations. Intubated in the ICU with pneumonia and in that setting did sustain an inferior wall infarction. Conservative management for this. He is continuing on aspirin statin and beta-joseph. Became febrile again overnight with leukocytosis. Long long-term prognosis is obviously poor/ limited for this gentleman. Ozzy Mehta MD [facility] Subjective Date/time seen: date of service:08/24/21 11:35 Interval history: 66yo male with hx of throat cancer s/p GTube, aspiration PNA, hypothyroidism, BPH and GERD who presents with complaints of SOB.? Patient had inferior wall MS following admission while intubated in the ICU. Has mild LV systolic dysfunction and very poor right ventricular systolic function. 08/24/2021: No cardiovascular events overnight. Patient unfortunately now [place] [id number] [place] scan planned for today for further evaluation of this. He remains alert and comfortable on the ventilator. Exam Const: General: comfortable and no acute distress Other: Remarkably comfortable chronically ill man on the ventilator awake and alert HENMT: Mouth: Yes moist mucous membranes Eyes: Sclera: sclerae normal Neck: Neck: supple Resp: Other: central rhonchi noted Cardio: Rate: regular rate Rhythm: regular rhythm Other: no murmur no gallop occasional PVC GI: GI Palp: Yes Soft to palpation Auscultation: normal bowel sounds Skin: General skin exam: normal color Neuro: Other: alert and responsive Extrem: General: normal to inspection Objective Data Vital Signs Vital Signs: Vital Signs - 24 hr 08/23/21 12:00 08/23/21 12:00 08/23/21 12:00 Temperature 37.5 C Pulse Rate 98 104 H Respiratory Rate 27 H 20 Blood Pressure 127/77 Pulse Oximetry 96 97 Oxygen Delivery Mechanical Ventilation Fraction of Inspired Oxygen 45 45 08/23/21 14:28 08/23/21 14:29 08/23/21 14:45 Temperature Pulse Rate 104 H 104 H 103 H Respiratory Rate 29 H 29 H Blood Pressure Pulse Oximetry 95 Oxygen Delivery Mechanical Ventilation Fraction of Inspired Oxygen 40 08/23/21 14:00 08/23/21 16:00 08/23/21 12:27 Temperature 37.4 C Pulse Rate 96 97 97 Respiratory Rate 18 17 21 H Blood Pressure 125/72 129/65 Pulse Oximetry 96 95 95 Oxygen Delivery Mechanical Ventilation Fraction of Inspired Oxygen 45 08/23/21 17:27 08/23/21 16:00 08/23/21 16:00 Temperature Pulse Rate 99 105 H 105 H Respiratory Rate 21 H Blood Pressure Pulse Oximetry 95 98 Oxygen Delivery Mechanical Ventilation Mechanical Ventilation Fraction of Inspired Oxygen 40 45 08/23/21 16:00 08/23/21 12:00 08/23/21 14:00 Temperature Pulse Rate 98 104 H Respiratory Rate Blood Pressure Pulse Oximetry Oxygen Delivery Fraction of Inspired Oxygen 45 08/23/21 18:00 08/23/21 18:00 08/23/21 18:00 Temperature 37.3 C 37.2 C Pulse Rate 96 96 93 Respiratory Rate 18 17 Blood Pressure 111/74 111/74 Pulse Oximetry 97 93 Oxygen Delivery Fraction of Inspired Oxygen 08/23/21 20:00 08/23/21 20:00 08/23/21 20:08 Temperature 37.2 C Pulse Rate 100 100 Respiratory Rate 27 H Blood Pressure 118/83 Pulse Oximetry 92 Oxygen Delivery Fraction of Inspired Oxygen 40 08/23/21 20:00 08/23/21 20:00 08/23/21 20:00 Temperature Pulse Rate 100 100 Respiratory Rate 27 H Blood Pressure Pulse Oximetry Oxygen Delivery Mechanical Ventilation Fraction of Inspired Oxygen 40 08/23/21 20:00 08/23/21 20:00 07
--- NOTE | 2021-08-24 11:39 | PCFNICU ---
ICU Rounding Note: Pt current nutrition is Vital 1.2 @ 75ml/hr, KATIE BID. Nutrition recommendation: Continue with current plan of care Last recorded weight is 78kg, down from 84.6 kg - noted pt was diuresed yesterday. Bowel Motility: Multiple soft BMs, pt is on miralax, colace, dulcolax - recently decreased Labs Reviewed: hgb:10.2, HCT:31.1, Alb:3.0, BUN:75, Glu:125 Meds Noted: Protonix, versed, lasix Skin: deep tissue area to coccyx Additional Notes: Pt continues on same Tube feeds. Tolerating well. Agree with diet orders. Following daily in ICU rounds. Will monitor every Saturday and Saturday.
[2021-08-24 11:48] LABS: Glucose Point of Care 143 mg/dl (65-105)
[2021-08-24 14:28] LABS: Appearance Urine Clear (Clear); Bilirubin Urine Negative (Negative); Blood Urine 3+ (Negative); Color Urine Yellow (Yellow); Glucose Urine UA Negative (Negative); Ketones Urine Negative (Negative); Leukocyte Esterase Ur Negative LEU/UL (Negative); Nitrate Urine Negative (Negative); Protein Urine 2+ mg/dL (Negative); Urobilinogen Urine 0.2 mg/dL (<2.0); pH Urine 5.5 (5.0-9.0)
[2021-08-24 14:35] LABS: Mucus Urine Rare /lpf; Squamous Epithelial Cell Urine Rare /hpf (Few)
[2021-08-24 14:40] LABS: Add Urine Microscopic? YES
[2021-08-24 15:27] LABS: Procalcitonin 1.3 ng/mL
[2021-08-24 17:42] LABS: Glucose Point of Care 114 mg/dl (65-105)
--- NOTE | 2021-08-24 22:33 | PC.NURSE ---
Dr. Rodríguez called for low blood pressures. He ordered a bolus of albumin then if it is still low then we will start levophed. We will continue to closely monitor the patient and make changes as needed.
[2021-08-25] VITALS (39 sets, daily range): BP systolic 88–143; BP diastolic 49–95; PULSE 82–111; RESP 11–34; TEMP 36.8–37.7; O2SAT 29–100
[2021-08-25 00:27] LABS: Glucose Point of Care 126 mg/dl (65-105)
[2021-08-25] MEDS: ALBUMIN HUMAN 5% 25 GM/500 ML BTL IV CONT (00:50)
[2021-08-25] MEDS: ALBUTEROL SULFATE NEB 2.5 MG/3 ML INH INHALATION ×4 (02:20→20:24)
[2021-08-25] MEDS: IPRATROPIUM BR 0.02% INH SOLN 0.5 MG/2.5 ML VIAL INHALATION ×4 (02:20→20:24)
[2021-08-25] MEDS: CENTRAL LINE FLUSH 10 ML IV PUSH ×3 (05:12→20:58)
[2021-08-25] MEDS: LEVOTHYROXINE SODIUM 25 MCG TABLET FEED TUBE (05:12)
[2021-08-25 05:36] LABS: Base Excess ABG 10.2 mEq/l (+/-2.0); Carboxyhemoglobin 0.3 % THb (0-2.0); Fractional Inspired Oxygen 45 %; HCO3 ABG 35.6 mEq/l (22.0-26.0); Methemoglobin ABG 0.5 %THb (0-1.5); Oxygen Content ABG 16.9 %vol (16.0-22.0); Oxygen Saturation ABG 98.4 % (95.0-100.0); Oxyhemoglobin 96.9 % THb (90.0-100.0); PCO2 ABG 51.6 mmHg (35.0-45.0); PO2 ABG 116.2 mmHg (80.0-100.0); PO2 FiO2 Ratio Arterial Blood 2.58 %; Reduced Hemoglobin 2.3 %THb (0-5.0); Total Hemoglobin 12.3 g/dL (12.0-18.0); pH ABG 7.457 (7.350-7.450)
[2021-08-25 05:38] LABS: Arterial Blood Gas PEEP 10 cmH2O; Arterial Blood Gas Tidal Volume 450 ml; Arterial Blood Gas Vent Mode CMV; Arterial Blood Gas Ventilator rate 25 /MIN; Device VENTILATOR; Modified Allen's Test Unable to perform; Site Drawn RIGHT RADIAL
[2021-08-25 05:40] LABS: Alanine Aminotransferase 50 U/L (6-50); Albumin Level 3.3 g/dL (3.5-5.1); Alkaline Phosphatase 67 U/L (38-126); Aspartate Amino Transferase 41 U/L (17-59); Bilirubin,Total 0.3 mg/dL (0.2-1.3); Blood Urea Nitrogen 85 mg/dL (9-20); Calcium 9.1 mg/dL (8.4-10.2); Carbon Dioxide > 40 mmol/L (22-30); Chloride 106 mmol/L (98-107); Estimated CRCL calculation 96 ml/min; Estimated Glomerular Filt Rate > 60; Glucose 124 mg/dL (65-110); Magnesium 2.2 mg/dL (1.6-2.3); Sodium 146 mmol/L (137-145)
[2021-08-25 05:50] LABS: Hematocrit 29.6 % (42.0-52.0); Hemoglobin 9.1 g/dL (14.0-18.0); Immature Platelet Fraction Pct 11.6 % (0.9-11.2); Mean Corpuscular HGB Conc 30.7 g/dl (32-36); Mean Corpuscular Hemoglobin 31.6 pg (26-34); Mean Corpuscular Volume 102.8 fl (80-100); Mean Platelet Volume 13.3 fl (7.4-10.4); Platelet Count Result 221 k/mm3 (150-375); Red Blood Count 2.88 M/mm3 (4.6-6.20); Red Cell Distribution Width 13.9 % (11.5-14.5); White Blood Count 15.7 K/mm3 (4.5-10.0)
[2021-08-25 06:00] LABS: Glucose Point of Care 126 mg/dl (65-105)
[2021-08-25 07:08] LABS: Vancomycin Trough 8.3 ug/mL (10.0-20.0)
[2021-08-25] MEDS: acetaZOLAMIDE SODIUM FOR INJ 500 MG VIAL 250 MG IV PUSH (08:11)
[2021-08-25] MEDS: METOPROLOL TARTRATE 12.5 MG TABLET FEED TUBE ×2 (08:15→20:58)
[2021-08-25] MEDS: FONDAPARINUX SODIUM 2.5 MG/0.5 ML SYRINGE SUB-Q (08:15)
[2021-08-25] MEDS: ASPIRIN 325 MG TABLET PO (08:15)
[2021-08-25] MEDS: ATORVASTATIN 40 MG TABLET FEED TUBE (08:15)
[2021-08-25] MEDS: PANTOPRAZOLE SODIUM IV 40 MG VIAL IV PUSH (08:15)
[2021-08-25] MEDS: MIDAZOLAM 100MG/NS 100ML(*CRX) 100 MG/100 ML BAG IV CONT (08:38)
[2021-08-25] MEDS: FENTANYL 2,500MCG/NS250ML(*CRX 2,500 MCG/250 ML BAG IV CONT (08:40)
[2021-08-25] MEDS: MINERAL OIL/WHITE PETROLATUM OINTMENT 1 APPLIC EACH EYE ×2 (08:59→20:58)
--- NOTE | 2021-08-25 10:57 | PM.PNCARD ---
Progress Note: A&P Assessment and Plan (1) Acute coronary syndrome: Code(s): I24.9 - Acute ischemic heart disease, unspecified Status: Acute Assessment and Plan: Acute inferior HI occurring while admitted in the ICU for pneumonia and sepsis. ECG still with evidence of inferior HI with mild ST elevations in leads II, III and aVF with reciprocal changes in aVL. This is being managed conservatively with ASA, statin. Remains stable from a hemodynamic standpoint. (2) Elevated troponin: Code(s): R77.8 - Other specified abnormalities of plasma proteins Status: Acute Assessment and Plan: As above. Subjective Date/time seen: 08/25/21 10:57 Interval history: 66yo male with hx of throat cancer s/p GTube, aspiration PNA, hypothyroidism, BPH and GERD who presents with complaints of SOB.? Patient had inferior wall HI following admission while intubated in the ICU. Has mild LV systolic dysfunction and very poor right ventricular systolic function. 08/24/2021: No cardiovascular events overnight. Patient unfortunately now is [place] [id number] scan planned for today for further evaluation of this. He remains alert and comfortable on the ventilator. 08/25/2021: No acute events overnight. He remains intubated but is alert and interactive. Review of Systems Review of Systems: ROS unobtainable: Yes unobtainable due to endotracheal tube and unobtainable due to medical condition Exam Const: General: comfortable and no acute distress Other: Remarkably comfortable chronically ill man on the ventilator awake and alert HENMT: Head: normal to inspection Mouth: Yes moist mucous membranes Eyes: General: appearance normal, both eyes and all related structures Sclera: sclerae normal Neck: Neck: supple and no JVD Resp: Effort & Inspection: normal respiratory effort Auscultation: rhonchi (Diffuse expiratory) Other: central rhonchi noted Cardio: Rate: regular rate Rhythm: regular rhythm Heart sounds: S1 normal heart sound present, S2 normal heart sound present and no murmurs Other: no murmur no gallop occasional PVC GI: Inspection: non-distended Auscultation: normal bowel sounds Urinary Catheter: Urinary Catheter: patent and draining Skin: General skin exam: normal color and no rashes or lesions noted (Other than some small areas of ecchymosis due to phlebotomy) Neuro: Other: alert and responsive Extrem: General: normal to inspection, no edema and no pedal edema Other: no peripheral edema Psych: Mental Status: mental status grossly abnormal Objective Data Vital Signs Vital Signs: Vital Signs - 24 hr 08/24/21 11:26 08/24/21 12:00 08/24/21 12:00 Temperature Pulse Rate 104 H 104 H 104 H Respiratory Rate 28 H Blood Pressure Pulse Oximetry 98 98 Oxygen Delivery Mechanical Ventilation Mechanical Ventilation Fraction of Inspired Oxygen 50 60 08/24/21 12:00 08/24/21 12:00 08/24/21 14:22 Temperature 37.1 C Pulse Rate 104 H 108 H Respiratory Rate 28 H 26 H Blood Pressure 132/92 H Pulse Oximetry 98 Oxygen Delivery Fraction of Inspired Oxygen 50 08/24/21 14:25 08/24/21 14:46 08/24/21 17:09 Temperature Pulse Rate 102 H 104 H 100 Respiratory Rate 26 H Blood Pressure Pulse Oximetry 96 95 Oxygen Delivery Mechanical Ventilation Mechanical Ventilation Fraction of Inspired Oxygen 50 60 08/24/21 14:00 08/24/21 14:00 08/24/21 16:00 Temperature Pulse Rate 99 99 93 Respiratory Rate 18 23 H Blood Pressure 141/89 H Pulse Oximetry 91 100 Oxygen Delivery Mechanical Ventilation Fraction of Inspired Oxygen 60 08/24/21 16:00 08/24/21 16:00 08/24/21 16:00 Temperature 37.4 C Pulse Rate 93 93 Respiratory Rate 23 H Blood Pressure 103/67 Pulse Oximetry 100 Oxygen Delivery Fraction of Inspired Oxygen 50 08/24/21 18:00 08/24/21 18:00 08/24/21 20:29 Temperature 3
--- NOTE | 2021-08-25 11:17 | PM.CNPUL ---
Assessment and Plan Assessment and plan (1) Acute respiratory failure: Code(s): J96.00 - Acute respiratory failure, unspecified whether with hypoxia or hypercapnia Status: Acute (2) Pneumonia: Code(s): J18.9 - Pneumonia, unspecified organism Status: Acute Assessment and Plan: He has a consolidated left lower lobe pneumonia and may have atelectasis with secretions in the airway. I discussed this with Dr. Rodríguez, and the patinet needs a bronchoscopy to improve his chances of weaning from the ventilator. His tube feeds are being turned off at 11:30 a.m.. This is tentatively scheduled for 230 today. He is not on anticoagulant History of Present Illness History of Present Illness Consult date: 08/25/21 Requesting physician: Farhad Rodríguez MD Chief complaint: Community-acquired Pneumonia,Respiratory Failure Narrative: NEW: Mal Akhtar is a 66 year old man in ICU bed 5, has left lower lobe pneumonia with collapse and may have had mucus plugging. Dr. Rodríguez asked me to see him for possible bronchoscopy to improve his chances of weaning. He has been failing weaning attempts. Review of Systems Review of Systems: ROS unobtainable: Yes unobtainable due to endotracheal tube PMFSH Past Medical History Medical History Cervical spine disease Gastrostomy tube dependent GERD (gastroesophageal reflux disease) History of throat cancer XRT and surgery Hypothyroid Malfunction of gastrostomy tube Spina bifida as a child with surgery; residual 'bladder issues' Surgical History Surgical History History of ear, nose, and throat (ENT) surgery Family History Family History Mother Colon cancer Social History Social History Social History: Lives at home with . Never smoked. No alcohol and drug use. Full code. would be the Individual would make medical decisions for him if he is unable Smoking status: Never smoker Alcohol intake: unknown Substance use: never Substance use type: does not use Spiritual care concerns: No Meds Home Medications and Allergies Home Medications Medication Instructions Recorded Confirmed Type diazepam 10 mg tablet 10 mg feeding tube QPM MUSCLE SPASM 05/23/20 08/13/21 History levothyroxine 25 mcg tablet 25 mcg feeding tube DAILY 05/23/20 08/13/21 History finasteride 5 mg tablet 1 tablet feeding tube DAILY 08/13/21 08/13/21 History Allergies Allergy/AdvReac Type Severity Reaction Status Date / Time No Known Allergies Allergy Verified 05/26/20 09:06 Vital Signs Vital Signs - 24 hr 08/24/21 11:26 08/24/21 12:00 08/24/21 12:00 Temperature Pulse Rate 104 H 104 H 104 H Respiratory Rate 28 H Blood Pressure Pulse Oximetry 98 98 Oxygen Delivery Mechanical Ventilation Mechanical Ventilation Fraction of Inspired Oxygen 50 60 08/24/21 12:00 08/24/21 12:00 08/24/21 14:22 Temperature 37.1 C Pulse Rate 104 H 108 H Respiratory Rate 28 H 26 H Blood Pressure 132/92 H Pulse Oximetry 98 Oxygen Delivery Fraction of Inspired Oxygen 50 08/24/21 14:25 08/24/21 14:46 08/24/21 17:09 Temperature Pulse Rate 102 H 104 H 100 Respiratory Rate 26 H Blood Pressure Pulse Oximetry 96 95 Oxygen Delivery Mechanical Ventilation Mechanical Ventilation Fraction of Inspired Oxygen 50 60 08/24/21 14:00 08/24/21 14:00 08/24/21 16:00 Temperature Pulse Rate 99 99 93 Respiratory Rate 18 23 H Blood Pressure 141/89 H Pulse Oximetry 91 100 Oxygen Delivery Mechanical Ventilation Fraction of Inspired Oxygen 60 08/24/21 16:00 08/24/21 16:00 08/24/21 16:00 Temperature 37.4 C Pulse Rate 93 93 Respiratory Rate 23 H Blood Pressure 103/67 Pulse Oximetry 100 Oxygen Delivery
--- NOTE | 2021-08-25 11:47 | PCNFU ---
Nutrition Follow-Up Complete: Increased protein needs as related to wounds as evidenced by Deep Tissue Presure injury reported. Goal: Meet estimated nutritional needs Pt current nutrition is Vital 1.2 @ 75ml/hr, KATIE BID. Nutrition recommendation: Continue with current plan of care Last recorded weight is 86 kg. Bowel Motility: +BM 08/25 - continues to have diarrhea Labs Reviewed: Hgb:9.1, HCT:29.6, Alb:3.3, NA:146, BUN:85, Glu: 124 Meds Noted: Protonix, versed, lasix Skin: Deep pressure injury to coccyx Additional Notes: Pt continues on same Tube feeds. Tolerating well and meeting estimated needs. Agree with diet orders. Banitrol BID added today for diarrhea. Will monitor every Saturday and Saturday.
--- NOTE | 2021-08-25 11:49 | PM.PNPUL ---
Progress Note: A&P Assessment and Plan (1) Acute respiratory failure: Code(s): J96.00 - Acute respiratory failure, unspecified whether with hypoxia or hypercapnia Status: Acute Assessment and Plan: He has acute respiratory failure intubated emergently 08/13/2021 day #13 with persistent left lower lobe infiltrate, suspected mucus plugging. He is failing pressure support trials also he has little better today. Discussed with family, patient, Dr. Rodríguez; will plan for bronchoscopy today therapeutic with suctioning of secretions which will be sent to lab for further evaluation. This bronchoscopy is an attempt to help clear the airways reduce his secretions so that he can proceed with weaning trials and extubation otherwise he will require tracheostomy. He is on 40%, and I explained that he may require more O2 afterwards than now due to use of normal saline for bronchoalveolar lavage. This commonly happens as result of procedure. It is a transient issue and anticipate a bronchoscopy may improve his chances of extubation. (2) Pneumonia: Code(s): J18.9 - Pneumonia, unspecified organism Status: Acute Assessment and Plan: This patient came in with aspiration pneumonia, did not grow out any organisms, was negative for COVID, Legionella, pneumococcus. His main of consolidation is LLL, and he initially had bilateral infiltrates. Will obtain specimen with BAL for analysis. Subjective Date/time seen: 08/25/21 11:17 Interval history: Haylee and his daughter are at the bedside, they help provide history. ESTABLISHED: Mal Akhtar is a 66 yo man who was seen by Dr Lopez on August 17, and he signed off; we are being recalled for persistent respiratory failure with a left lower lobe pneumonia and secretions. He has a history of throat cancer 2 years ago, s/p peg placement with aspiration pneumonias in the past. He presented 08/13 with aspiration pneumonia, septic shock followed by acute inferior [place], treated with vancomycin, cefepime and azithromycin. ?Shock resolved, he remains intubated on FiO2 40%, with failed attempts at weaning with PS trials 8 Pressure Support and 5 PEEP. His chest x-ray today 08/25/ shows a LLL infiltrate. This is an improvement, initially had bilateral interstitial alveolar infiltrates. He had lower extremity venous Dopplers were negative for DVT on 08/19 and 08/14/ echocardiogram:? Showed EF of 40-45%, posterior and inferior segments are hyperdynamic,?right ventricle chamber is severely enlarged, right ventricular systolic function is reduced. Yesterday 08/[address] yesterday was reviewed; 08/24/2021 1. Diffuse lung disease with overall improvement, consistent with resolving infection an/or pulmonary edema. 2. Persistent near complete collapse of the left lower lobe. 3. Scattered indeterminate pulmonary nodules which could reflect resolving infection. Follow-up CT after resolution of pneumonia is recommended. 4. Mediastinal and bilateral hilar lymphadenopathy, likely reactive. Review of Systems Review of Systems: All systems reviewed & are unremarkable except as noted in HPI and below ROS unobtainable: Yes unobtainable due to endotracheal tube Exam Narrative: GEN: ? Alert, oriented, intubated,? nods to questions. HEENT: pupils are equal, EOMI, symmetrical face; oral membranes moist, ETT in place NECK:? Trachea is midline CHEST:? Equal air entry, symmetric excursion, decreased breath sounds in the left lower lobe CV:? ? Regular S1S2 no m/g/r ABD : (+) bowel sounds Extremities : no clubbing, cyanosis; he has 2+ dependent edema ; left arm PICC PSYCH:? normal thought, cannot speak with ETT ? Objective Data Vital Signs Vital Signs: Vital Signs - 24 hr 08/24/21 12:00 08/24/21 12:00 08/24/21 12:00 Temperature 37.1 C Pulse Rate 104 H 104 H 104 H
[2021-08-25 12:00] LABS: Glucose Point of Care 140 mg/dl (65-105)
--- NOTE | 2021-08-25 12:47 | WPDINTPN ---
Progress Note: A&P Assessment and Plan (1) Acute respiratory failure: Code(s): J96.00 - Acute respiratory failure, unspecified whether with hypoxia or hypercapnia Status: Acute Assessment and Plan: Acute Respiratory failure secondary to pneumonia which could be aspiration versus community-acquired 08/13 Patient was emergently intubated in ICU CT scan showed Diffuse ground-glass and consolidative opacities. Repeat CT scan 08/24 IMPRESSION: 1. Diffuse lung disease with overall improvement, consistent with resolving infection an/or pulmonary edema. 2. Persistent near complete collapse of the left lower lobe. 3. Scattered indeterminate pulmonary nodules which could reflect resolving infection. Follow-up CT after resolution of pneumonia is recommended. 4. Mediastinal and bilateral hilar lymphadenopathy, likely reactive. -chest x-ray reviewed and ETT advanced by 2 cm -patient failed his PSV trial08/23 and was placed back on ASV mode. At night patient was tachypneic and desaturating. He was switched to CMV mode. -currently on 10 of PEEP and 45 % FiO2. IV known PEEP to 8 and FiO2 to 40% -I tried PSV of 5/8 for few hours. Patient had high borderline RSBI. Patient switch back now CMV for bronchoscopy. Will try weaning trial again tomorrow -will give a dose of Diamox ABGs reviewed Continue full mechanical ventilation support to prevent hypoxemia/hypercarbia and end organ damage. Low tidal volume ventilation strategy to prevent volutrauma Continue Bronchodilators Patient does not appear to be ready to wean at this time. I will continue to try over next few days but if patient continues to fail he may need tracheostomy. Patient was significantly weak and debilitated even before he got sick. (2) Septic shock: Code(s): A41.9 - Sepsis, unspecified organism; R65.21 - Severe sepsis with septic shock Status: Acute Assessment and Plan: Septic along with cardiogenic shock secondary to pneumonia, possible cardiogenic component -UA negative - urine Legionella and pneumococcal antigen: Not detected -08/13: Blood cultures negative x2 -patient has received adequate fluids since admission -OFF Levophed and vasopressin since 08/18 -likely cardiogenic shock given right sided dysfunction on echocardiogram secondary to STEMI -OFF dobutamine since 08/17 as he went into AFib RVR, was given metoprolol remained in AFib RVR and dropped his pressures, amiodarone was started with conversion to sinus rhythm. Patient was on Levophed briefly is currently off -off stress dose steroids -patient completed a 10 day course of vancomycin, cefepime on 08/23, azithromycin dc'd 08/18 08/15: PICC line was inserted, femoral line was removed 08/19/2021: Bilateral lower extremity venous Dopplers were negative for DVT 08/14 echocardiogram: Showed EF of 40-45%, posterior and inferior segments are hyperdynamic, right ventricle chamber is severely enlarged, right ventricular systolic function is reduced -08/[address] sinuses showed Mild sinus disease of the right maxillary, ethmoid and sphenoid sinuses. CT chest showed 1. Diffuse lung disease with overall improvement, consistent with resolving infection an/or pulmonary edema. 2. Persistent near complete collapse of the left lower lobe. 3. Scattered indeterminate pulmonary nodules which could reflect resolving infection. Follow-up CT after resolution of pneumonia is recommended. 4. Mediastinal and bilateral hilar lymphadenopathy, likely reactive. Normal lipase Repeat sputum and blood cultures Replace Vanessa and check UA which was negative procalcitonin 1.3 Patient was restarted on Zosyn Afebrile this morning and WBC improved. Patient is scheduled for bronchoscopy today for left lower lobe collapse (3) Pneumonia: Code(s): J18.9 - Pneumonia, unspecified organism Status: Acute Assessment and Plan: Urine Legionella pneumococcal influenza were negative COVID PCR were negative (4) Altered men
--- NOTE | 2021-08-25 14:09 | PHAR ---
Fentanyl and versed drips increased substantially for bronchoscopy procedural sedation
[2021-08-25] MEDS: MIDAZOLAM HCL (*CRX) 2 MG/2 ML VIAL IV PUSH (14:44)
--- NOTE | 2021-08-25 15:08 | PM.OP ---
Procedure Note - Brief Procedure Note - Brief Date of procedure: 08/25/21 Pre-op diagnosis: Community-acquired Pneumonia,Respiratory Failure Post-op diagnosis: Same Procedure performed: Bronchoscopy This is the full procedure note, no further notes will be made. This is produced in a template in the EMR and not on Endoprose as a regular bronchoscope was not used, but a disposable scope. Description of procedure: Informed consent was obtained from the patient's , Haylee Akhtar, with risks benefits alternatives and complications discussed. Questions were answered. Time-out was performed at the beginning of the procedure. All personnel and equipment present at the beginning of the procedure. Start time: 14:36 End time: 15:02 Fluids instilled: Total of 105 m NS used in small aliquots of 5ml to 20 ml. Specimen returned: Right BAL with 30 ml returned, left BAL with 30 ml returned, doug wash with 20 ml returned. Procedure: The patient was already intubated in the intensive care unit on sedative drips Versed 1 milligram/hour and fentanyl 25 milligrams/hour. FiO2 was increased to 100%. Respiratory Therapist was at the beside. He was given Versed 2 mg IV at the beginning of the procedure. The bed was adjusted, head of the bed was declined. Tube feedings have been off since 11:30 a.m.. A disposable GlideScope Bflex 5.8 cm external diameter scope was used through his 7.5 ETT. White secretions were seen on the doug. The doug was sharp. The secretions were copious and seen more in the left and mainstem bronchus. Five mils of saline was used to irrigate the doug. Bronchial washings were obtained. Next the left bronchus intermedius was explored. Secretions were suction. A separate trap was placed. A BAL was performed in the left lower lobe; a total of 60 mL normal saline was instilled in 20 mL aliquots. A total of 30 mL returned on suctioning. All segments in the left lung were examined, and these were patent. Next, the bronchoscope was directed into the right lung. The right upper lobe was clear. The right lower lobe segments had significant thick white secretions. A BAL was performed in the lateral segment of the right lower lobe with 40 mL of saline instilled and 30 mL returned which were thick and white. The airways were all clear and appeared improved. The procedure was completed uneventfully at 15:20, 26 minutes total. Surgeon: Patricia Tucker MD Estimated blood loss (mL): 0 Complications: No immediate complications Condition: Stable Disposition: ICU
[2021-08-25] MEDS: SODIUM CHLORIDE 0.9% IV 1,000 ML 500 ML IVPB (15:29)
[2021-08-25 17:01] LABS: Appearance Bronchial Fluid Cloudy; Color Bronchial Fluid White; Lymphocytes Bronchial Fluid 1 %; Monocytes Bronchial Fluid 1 %; Neutrophils Bronchial Fluid 98 %; Source Bronchial Fluid Bronchial Lavage
[2021-08-25 17:02] LABS: Eosinophils Bronchial Fluid 0 %; Macrophages Bronchial Fluid 0; Other Cells Bronchial Fluid 0 %
[2021-08-25 17:07] LABS: Glucose Point of Care 118 mg/dl (65-105)
--- NOTE | 2021-08-25 18:45 | PM.IMPN ---
Progress Note: A&P Assessment and Plan (1) Acute respiratory failure: Code(s): J96.00 - Acute respiratory failure, unspecified whether with hypoxia or hypercapnia Status: Acute Assessment and Plan: Acute Respiratory failure secondary to pneumonia which could be aspiration versus community-acquired. 08/13 Patient was emergently intubated in ICU CTA chest 08/14 Extensive bilateral pneumonia, greatest in the left lower lobe but no PE. Remains intubated and sedated. CT Chest 08/24 showing diffuse lung disease with overall improvement, consistent with resolving infection an/or pulmonary edema, Persistent near complete collapse of the left lower lobe and Scattered indeterminate pulmonary nodules which could reflect resolving infection with reacitve Mediastinal and bilateral hilar lymphadenopathy. Chest x-ray this morning:Endotracheal tube tip 7.2 cm above the doug, Bilateral diffuse interstitial and airspace opacities which could represent pulmonary edema or pneumonia which is improved since 08/22/2021 and Small left pleural effusion with partial left lower lobar collapse. Was having fevers 08/24: Consider atelectasis if ET tube was riding high. Consider aspiration. Fever resolved. 08/25: Bronch today with appropriate cultures sent; clinically improved. -- 08/24 BCx NGTD, Sputum growing GPC in clusters. -- Continue full mechanical ventilation support to prevent hypoxemia/hypercarbia and end organ damage. -- Continue Bronchodilators and ABx -- Cultures have been recollected. Appreciate legal counsel input. (2) Septic shock: Code(s): A41.9 - Sepsis, unspecified organism; R65.21 - Severe sepsis with septic shock Status: Acute Assessment and Plan: Septic shock along with cardiogenic shock secondary to pneumonia and heart failure UA 08/13 not consistent with UTI Urine Legionella and pneumococcal antigen negative Blood cultures 08/13 negative x2. Sputum 08/16 negative. Patient has received adequate fluids resuscitation. OFF Levophed and vasopressin since 08/18 Likely cardiogenic shock given right sided dysfunction on echocardiogram secondary to STEMI treated with dobutamine (cardiology feels the dilated right ventricle is more chronic) OFF dobutamine since 08/17 as he went into AFib RVR, was given metoprolol but dropped his blood pressures; Amiodarone was started with conversion to sinus rhythm. Patient was on Levophed briefly but is currently off Off stress dose steroids Finished 10 day course of abx with vancomycin and cefepime ending 08/23; Azithromycin dc'd 08/18 08/15: PICC line was inserted, femoral line was removed 08/18: Bilateral upper and lower extremity venous Dopplers were negative for DVT 08/24: Having fevers again and WBC was up to 25K concerning for infectious process WBC better. CT Sinus showing ?Mild sinus disease of the right maxillary, ethmoid and sphenoid sinuses. -- repeat cultures as mentioned above -- Continue Abx (3) Pneumonia: Code(s): J18.9 - Pneumonia, unspecified organism Status: Acute Assessment and Plan: See above (4) Altered mental status: Code(s): R41.82 - Altered mental status, unspecified Status: Acute Assessment and Plan: Likely toxic metabolic encephalopathy from sepsis He is now sedated for mechanical ventilation, opening eyes and following commands Unremarkable head CT Normal ammonia and TSH level Alert and appropriate -- follow (5) Gastrostomy tube dependent: Code(s): Z93.1 - Gastrostomy status Status: Acute Assessment and Plan: His PEG tube was clogged with dried tube feeds on admission OG tube was placed and patient was started on tube feeds PEG tube was manually milked to break the clot. Ultimately, PEG tube was exchanged on 08/17/2021 by GI and is working fine Patient tolerating tube feeds -- appreciate GI input (6) Thrombocytopenia: Code(s): D69.6 - Thrombocytopenia, unspecified Status: Acute
[2021-08-26] VITALS (48 sets, daily range): BP systolic 90–149; BP diastolic 54–97; PULSE 82–110; RESP 14–37; TEMP 37.1–37.6; O2SAT 90–100
[2021-08-26 00:04] LABS: Glucose Point of Care 98 mg/dl (65-105)
[2021-08-26] MEDS: SODIUM CHLORIDE 0.9% IV 500 ML IV CONT (01:21)
[2021-08-26] MEDS: IPRATROPIUM BR 0.02% INH SOLN 0.5 MG/2.5 ML VIAL INHALATION ×4 (02:00→19:54)
[2021-08-26] MEDS: ALBUTEROL SULFATE NEB 2.5 MG/3 ML INH INHALATION ×4 (02:00→19:54)
[2021-08-26] MEDS: CENTRAL LINE FLUSH 10 ML IV PUSH ×3 (04:45→20:15)
[2021-08-26 05:08] LABS: Alveolar/Arterial O2 Gradient 80.4 mmHg; Base Excess ABG 7.6 mEq/l (+/-2.0); Carboxyhemoglobin 0.2 % THb (0-2.0); Fractional Inspired Oxygen 30 %; HCO3 ABG 32.3 mEq/l (22.0-26.0); Methemoglobin ABG 0.6 %THb (0-1.5); Modified Allen's Test Pass; Oxygen Content ABG 13.3 %vol (16.0-22.0); Oxygen Saturation ABG 96.1 % (95.0-100.0); Oxyhemoglobin 94.1 % THb (90.0-100.0); PCO2 ABG 46.7 mmHg (35.0-45.0); PO2 ABG 78.6 mmHg (80.0-100.0); PO2 FiO2 Ratio Arterial Blood 2.62 %; Reduced Hemoglobin 5.1 %THb (0-5.0); Site Drawn RIGHT RADIAL; pH ABG 7.458 (7.350-7.450)
[2021-08-26 05:09] LABS: Arterial Blood Gas PEEP 8 cmH2O; Arterial Blood Gas Tidal Volume 450 ml; Arterial Blood Gas Vent Mode CMV; Arterial Blood Gas Ventilator rate 20 /MIN; Device VENTILATOR
[2021-08-26] MEDS: LEVOTHYROXINE SODIUM 25 MCG TABLET FEED TUBE (05:53)
[2021-08-26 06:14] LABS: Hematocrit 30.6 % (42.0-52.0); Hemoglobin 9.2 g/dL (14.0-18.0); Mean Corpuscular HGB Conc 30.1 g/dl (32-36); Mean Corpuscular Hemoglobin 31.3 pg (26-34); Mean Corpuscular Volume 104.1 fl (80-100); Platelet Count Result 246 k/mm3 (150-375); Red Blood Count 2.94 M/mm3 (4.6-6.20); White Blood Count 15.4 K/mm3 (4.5-10.0)
[2021-08-26 06:28] LABS: Alanine Aminotransferase 54 U/L (6-50); Albumin Level 3.2 g/dL (3.5-5.1); Alkaline Phosphatase 70 U/L (38-126); Anion Gap 6 mmol/L (8-16); Aspartate Amino Transferase 41 U/L (17-59); Bilirubin,Total 0.3 mg/dL (0.2-1.3); Blood Urea Nitrogen 77 mg/dL (9-20); Calcium 9.1 mg/dL (8.4-10.2); Carbon Dioxide 32 mmol/L (22-30); Chloride 109 mmol/L (98-107); Estimated CRCL calculation 69 ml/min; Estimated Glomerular Filt Rate > 60; Glucose 111 mg/dL (65-110); Magnesium 2.3 mg/dL (1.6-2.3); Potassium 3.4 mmol/L (3.4-5.0); Sodium 147 mmol/L (137-145)
[2021-08-26] MEDS: PANTOPRAZOLE SODIUM IV 40 MG VIAL IV PUSH (08:17)
[2021-08-26] MEDS: METOPROLOL TARTRATE 12.5 MG TABLET FEED TUBE ×2 (08:17→20:16)
[2021-08-26] MEDS: FONDAPARINUX SODIUM 2.5 MG/0.5 ML SYRINGE SUB-Q (08:17)
[2021-08-26] MEDS: MINERAL OIL/WHITE PETROLATUM OINTMENT 1 APPLIC EACH EYE (08:17)
[2021-08-26] MEDS: ATORVASTATIN 40 MG TABLET FEED TUBE (08:18)
[2021-08-26] MEDS: ASPIRIN 325 MG TABLET PO (08:18)
--- NOTE | 2021-08-26 08:38 | WPDINTPN ---
Progress Note: A&P Assessment and Plan (1) Acute respiratory failure: Code(s): J96.00 - Acute respiratory failure, unspecified whether with hypoxia or hypercapnia Status: Acute Assessment and Plan: Acute Respiratory failure secondary to pneumonia which could be aspiration versus community-acquired 08/13 Patient was emergently intubated in ICU CT scan showed Diffuse ground-glass and consolidative opacities. Repeat CT scan 08/24 IMPRESSION: 1. Diffuse lung disease with overall improvement, consistent with resolving infection an/or pulmonary edema. 2. Persistent near complete collapse of the left lower lobe. 3. Scattered indeterminate pulmonary nodules which could reflect resolving infection. Follow-up CT after resolution of pneumonia is recommended. 4. Mediastinal and bilateral hilar lymphadenopathy, likely reactive. -chest x-ray reviewed -patient failed his PSV trial08/23 and was placed back on ASV mode. At night patient was tachypneic and desaturating. He was switched to CMV mode. -currently on 10 of PEEP and 45 % FiO2. IV known PEEP to 8 and FiO2 to 40% -I tried PSV of 5/8 for few hours. Patient had high borderline RSBI. Patient switch back now CMV for bronchoscopy. Will try weaning trial again tomorrow -08/25 good response to a dose of Diamox - 08/25 underwent diagnostic and therapeutic bronchoscopy. Significant amount of secretions bilaterally which were seen which were suctioned out ABGs reviewed Continue full mechanical ventilation support to prevent hypoxemia/hypercarbia and end organ damage. Low tidal volume ventilation strategy to prevent volutrauma Continue Bronchodilators 08/26 Patient placed on weaning trial of 5/8 this morning If patient continues to fail he may need tracheostomy. Patient was significantly weak and debilitated even before he got sick. (2) Septic shock: Code(s): A41.9 - Sepsis, unspecified organism; R65.21 - Severe sepsis with septic shock Status: Acute Assessment and Plan: Septic along with cardiogenic shock secondary to pneumonia, possible cardiogenic component -UA negative - urine Legionella and pneumococcal antigen: Not detected -08/13: Blood cultures negative x2 -patient has received adequate fluids since admission -OFF Levophed and vasopressin since 08/18 -likely cardiogenic shock given right sided dysfunction on echocardiogram secondary to STEMI -OFF dobutamine since 08/17 as he went into AFib RVR, was given metoprolol remained in AFib RVR and dropped his pressures, amiodarone was started with conversion to sinus rhythm. Patient was on Levophed briefly is currently off -off stress dose steroids -patient completed a 10 day course of vancomycin, cefepime on 08/23, azithromycin dc'd 08/18 08/15: PICC line was inserted, femoral line was removed 08/19/2021: Bilateral lower extremity venous Dopplers were negative for DVT 08/14 echocardiogram: Showed EF of 40-45%, posterior and inferior segments are hyperdynamic, right ventricle chamber is severely enlarged, right ventricular systolic function is reduced -08/[address] sinuses showed Mild sinus disease of the right maxillary, ethmoid and sphenoid sinuses. CT chest showed 1. Diffuse lung disease with overall improvement, consistent with resolving infection an/or pulmonary edema. 2. Persistent near complete collapse of the left lower lobe. 3. Scattered indeterminate pulmonary nodules which could reflect resolving infection. Follow-up CT after resolution of pneumonia is recommended. 4. Mediastinal and bilateral hilar lymphadenopathy, likely reactive. Normal lipase Repeat sputum and blood cultures Replace Vanessa and check UA which was negative procalcitonin 1.3 Patient was restarted on Zosyn Fever curve is down and WBC improved. 08/25 Patient underwent bronchoscopy and cultures were sent (3) Pneumonia: Code(s): J18.9 - Pneumonia, unspecified organism Status: Acute Assessment and Plan: Urine Legionella pneumococca
[2021-08-26 09:01] LABS: Alveolar/Arterial O2 Gradient 68.3 mmHg; Base Excess ABG 3.4 mEq/l (+/-2.0); Device VENTILATOR; Fractional Inspired Oxygen 30 %; HCO3 ABG 29.9 mEq/l (22.0-26.0); Modified Allen's Test Pass; Oxygen Content ABG 14.1 %vol (16.0-22.0); Oxygen Saturation ABG 95.1 % (95.0-100.0); Oxyhemoglobin 93.4 % THb (90.0-100.0); PCO2 ABG 55.6 mmHg (35.0-45.0); PO2 ABG 80.3 mmHg (80.0-100.0); PO2 FiO2 Ratio Arterial Blood 2.68 %; Site Drawn RIGHT RADIAL; Total Hemoglobin 10.7 g/dL (12.0-18.0); pH ABG 7.349 (7.350-7.450)
[2021-08-26 09:02] LABS: Arterial Blood Gas PEEP 8 cmH2O; Arterial Blood Gas Pressure Support 5 cmH2O; Arterial Blood Gas Vent Mode SPONTANEOUS
--- NOTE | 2021-08-26 10:01 | PM.IMPN ---
Progress Note: A&P Assessment and Plan (1) Acute respiratory failure: Code(s): J96.00 - Acute respiratory failure, unspecified whether with hypoxia or hypercapnia Status: Acute Assessment and Plan: Acute Respiratory failure secondary to pneumonia which could be aspiration versus community-acquired +/- ARDS. 08/13 Patient was emergently intubated in ICU CTA chest 08/14 Extensive bilateral pneumonia, greatest in the left lower lobe but no PE. CT Chest 08/24 showing diffuse lung disease with overall improvement, consistent with resolving infection an/or pulmonary edema, Persistent near complete collapse of the left lower lobe and Scattered indeterminate pulmonary nodules which could reflect resolving infection with reacitve Mediastinal and bilateral hilar lymphadenopathy. Was having fevers 08/24: Consider atelectasis if ET tube was riding high. Consider aspiration. Fever resolved. 08/25: Bronch with appropriate cultures sent; clinically improved. Chest x-ray this morning:Diffuse interstitial and mild airspace opacities throughout the bilateral mid and lower lung zones most likely from edema although differential includes pneumonia. Small left pleural effusion. Remains intubated and on light sedation. -- 08/24 BCx NGTD, Sputum growing Yeast of unclear significance; Bronch growing GPC. Ffollow up on bronch washings. -- Continue full mechanical ventilation support to prevent hypoxemia/hypercarbia and end organ damage. -- Continue Bronchodilators and Abx -- Continue breathing trials as tolerated. -- Cultures have been recollected. Appreciate insurance claims analyst input. (2) Septic shock: Code(s): A41.9 - Sepsis, unspecified organism; R65.21 - Severe sepsis with septic shock Status: Acute Assessment and Plan: Septic shock along with cardiogenic shock secondary to pneumonia and heart failure UA 08/13 not consistent with UTI Urine Legionella and pneumococcal antigen negative Blood cultures 08/13 negative x2. Sputum 08/16 negative. Patient has received adequate fluids resuscitation. OFF Levophed and vasopressin since 08/18 Likely cardiogenic shock given right sided dysfunction on echocardiogram secondary to STEMI treated with dobutamine (cardiology feels the dilated right ventricle is more chronic) OFF dobutamine since 08/17 as he went into AFib RVR, was given metoprolol but dropped his blood pressures; Amiodarone was started with conversion to sinus rhythm. Patient was on Levophed briefly but is currently off Off stress dose steroids Finished 10 day course of abx with vancomycin and cefepime ending 08/23; Azithromycin dc'd 08/18 08/15: PICC line was inserted, femoral line was removed 08/18: Bilateral upper and lower extremity venous Dopplers were negative for DVT 08/24: Having fevers again and WBC was up to 25K concerning for infectious process. Culutres obtained and abx started. WBC better. CT Sinus showing?Mild sinus disease of the right maxillary, ethmoid and sphenoid sinuses. CT Chest as above. 08/25 Bronch with washings. -- Follow up on cultures as mentioned above -- Continue Abx (3) Pneumonia: Code(s): J18.9 - Pneumonia, unspecified organism Status: Acute Assessment and Plan: See above (4) Altered mental status: Code(s): R41.82 - Altered mental status, unspecified Status: Acute Assessment and Plan: Likely toxic metabolic encephalopathy from sepsis He is now sedated for mechanical ventilation, opening eyes and following commands Unremarkable head CT Normal ammonia and TSH level Alert and appropriate -- follow (5) Gastrostomy tube dependent: Code(s): Z93.1 - Gastrostomy status Status: Acute Assessment and Plan: His PEG tube was clogged with dried tube feeds on admission OG tube was placed and patient was started on tube feeds PEG tube was opened but was malfunctioning. Ultimately, PEG tube was exchanged on 08/17/2021 by GI and is working fine. Patient toleratin
[2021-08-26] MEDS: POTASSIUM CHLORIDE 20 MEQ PACKET (FOR LIQUID) 40 MEQ FEED TUBE (10:13)
[2021-08-26 12:15] LABS: Glucose Point of Care 145 mg/dl (65-105)
--- NOTE | 2021-08-26 14:50 | PM.PNPUL ---
Progress Note: A&P Assessment and Plan (1) Acute respiratory failure: Code(s): J96.00 - Acute respiratory failure, unspecified whether with hypoxia or hypercapnia Status: Acute Assessment and Plan: He has acute respiratory failure with underlying chronic aspiration, patient ingests orally knowing that he has an abnormal swallow and that he will aspirate. He has a persistent mild to moderate CO2 retention, one dose of acetazolamide seemed to improve his HCO3. ABG today August 26 = 7.349/pCO2 55.6/pO2 80.3/HCo3 29.9 on PEEP 8 PS 5, FiO2 30%. Was emergently 08/13/2021 day #14 with persistent pneumonia. Today, the infiltrates are diffuse. His oxygenation is adequate on 30%. He is weaning trials, and is going to rest on the vent with back up rate for now. Discussed with his and the patient at the bedside. He has had a trach before, did not need a vent, just an airway after this throat surgeries. His says it lasted 6 months. He had an MO while he was here, and the Right heart is significantly dysfunctional. This is a chronic condition as severe RV dysfunction is usually not a sudden event. RVSP is not reported. He likely has severe pulmonary hypertension. It is not clear what caused this. He has decreased LV systolic function EF 40% which is better than the RV function. His RV problems are out of proportion to his LV problems. He has no history of PE, no underlying lung disease, no documented sleep issue which would only cause mild pulmonary hypertension. He has no known autoimmune condition. He will likely need a tracheostomy, may not even need to use a vent if he has an adequate airway. His says that he has needed stretching of his upper GI tract, however last time, it could not be accomplished due to his abnormal anatomy after surgeries throat cancer and radiation. (2) Pneumonia: Code(s): J18.9 - Pneumonia, unspecified organism Status: Acute Assessment and Plan: This patient came in with aspiration pneumonia, did not grow out any organisms, was negative for COVID, Legionella, pneumococcus. He had bilateral infiltrates, now more in the LLL by chest CT 08/24/2021. Secretions were suctioned, and he had copious white mucoid secretions in both bases. Gram stain shows moderate WBC, few Gram positive cocci. Cell count showed 98% neutrophils consistent with a bacterial infection. He is on Zosyn IV 3.375 mg started 08/24/2021. His Procalcitonin was massive 91.4 on 08/13, now down to 1.3 on 08/24/21. His WBC is 15K, lower. Overall, infectious markers are better. Subjective Date/time seen: 08/26/21 14:50 ESTABLISHED: Mal Akhtar is a 66 yo man with persistent respiratory failure with a left lower lobe pneumonia and secretions which caused difficulty weaning with a LLL pneumonia and need for bronchoscopy 08/25/21 which showed large amount of white mucoid secretions, and he is now on 30%, better. He did not tolerate weaning today, needed rate increased to 12 today. He has a history of throat cancer 2 years ago, complicated surgeries at [facility], had a trach at one point; s/p peg placement with aspiration pneumonias in the past. He presented 08/13 with aspiration pneumonia, septic shock followed by acute inferior MO, treated with vancomycin, cefepime and azithromycin. ?Shock resolved, he remains intubated? on FiO2 30%, with failed attempts at weaning with PS trials 8 Pressure Support and 5 PEEP. 08/25/21 CXR shows a LLL infiltrate. This is an improvement, initially had bilateral? interstitial alveolar infiltrates. He had lower extremity venous Dopplers were negative for DVT on 08/19 and 08/14/??echocardiogram:? Showed EF of 40-45%, posterior and inferior segments are hyperdynamic,?right ventricle chamber is severely enlarged, right ventricular systolic function is reduced. 08/26/2021: vent rate increased to
[2021-08-26 17:13] LABS: IFOB Positive Control Positive; Immunochemical Fecal Occult Bl Positive (N)
[2021-08-26 17:18] LABS: Glucose Point of Care 111 mg/dl (65-105)
[2021-08-26 23:34] LABS: Glucose Point of Care 119 mg/dl (65-105)
[2021-08-27] VITALS (44 sets, daily range): BP systolic 101–150; BP diastolic 62–94; PULSE 81–104; RESP 20–36; TEMP 37.3–37.6; O2SAT 91–100
[2021-08-27] MEDS: ALBUTEROL SULFATE NEB 2.5 MG/3 ML INH INHALATION ×4 (02:04→20:21)
[2021-08-27] MEDS: IPRATROPIUM BR 0.02% INH SOLN 0.5 MG/2.5 ML VIAL INHALATION ×4 (02:04→20:21)
[2021-08-27] MEDS: CENTRAL LINE FLUSH 10 ML IV PUSH ×3 (05:29→19:51)
[2021-08-27 05:37] LABS: Alveolar/Arterial O2 Gradient 64.5 mmHg; Base Excess ABG 5.4 mEq/l (+/-2.0); Carboxyhemoglobin 0.2 % THb (0-2.0); Fractional Inspired Oxygen 30 %; HCO3 ABG 31.7 mEq/l (22.0-26.0); Methemoglobin ABG 0.5 %THb (0-1.5); Modified Allen's Test Pass; Oxygen Content ABG 14.1 %vol (16.0-22.0); Oxyhemoglobin 94.8 % THb (90.0-100.0); PO2 ABG 84.8 mmHg (80.0-100.0); PO2 FiO2 Ratio Arterial Blood 2.83 %; Reduced Hemoglobin 4.5 %THb (0-5.0); Site Drawn RIGHT RADIAL; Total Hemoglobin 10.5 g/dL (12.0-18.0); pH ABG 7.378 (7.350-7.450)
[2021-08-27 05:38] LABS: Arterial Blood Gas PEEP 8 cmH2O; Arterial Blood Gas Tidal Volume 450 ml; Arterial Blood Gas Vent Mode CMV; Arterial Blood Gas Ventilator rate 20 /MIN; Device VENTILATOR
[2021-08-27 06:23] LABS: Hematocrit 31.8 % (42.0-52.0); Hemoglobin 9.4 g/dL (14.0-18.0); Mean Corpuscular HGB Conc 29.6 g/dl (32-36); Mean Platelet Volume 12.7 fl (7.4-10.4); Platelet Count Result 294 k/mm3 (150-375); Red Blood Count 3.03 M/mm3 (4.6-6.20); Red Cell Distribution Width 14.1 % (11.5-14.5); White Blood Count 17.2 K/mm3 (4.5-10.0)
[2021-08-27] MEDS: LEVOTHYROXINE SODIUM 25 MCG TABLET FEED TUBE (06:29)
[2021-08-27 06:34] LABS: Alanine Aminotransferase 54 U/L (6-50); Albumin Level 3.4 g/dL (3.5-5.1); Alkaline Phosphatase 73 U/L (38-126); Anion Gap 5 mmol/L (8-16); Aspartate Amino Transferase 35 U/L (17-59); Bilirubin,Total 0.2 mg/dL (0.2-1.3); Blood Urea Nitrogen 72 mg/dL (9-20); Calcium 9.2 mg/dL (8.4-10.2); Carbon Dioxide 33 mmol/L (22-30); Chloride 112 mmol/L (98-107); Estimated CRCL calculation 84 ml/min; Estimated Glomerular Filt Rate > 60; Glucose 132 mg/dL (65-110); Magnesium 2.1 mg/dL (1.6-2.3); Potassium 3.8 mmol/L (3.4-5.0); Sodium 150 mmol/L (137-145)
[2021-08-27] MEDS: DEXTROSE 5% IN WATER 500 ML 100 ML IV CONT (08:06)
[2021-08-27] MEDS: METOPROLOL TARTRATE 12.5 MG TABLET FEED TUBE ×2 (08:11→20:07)
[2021-08-27] MEDS: FONDAPARINUX SODIUM 2.5 MG/0.5 ML SYRINGE SUB-Q (08:11)
[2021-08-27] MEDS: MINERAL OIL/WHITE PETROLATUM OINTMENT 1 APPLIC EACH EYE (08:11)
[2021-08-27] MEDS: PANTOPRAZOLE SODIUM IV 40 MG VIAL IV PUSH (08:11)
[2021-08-27] MEDS: ASPIRIN 325 MG TABLET PO (08:12)
[2021-08-27] MEDS: ATORVASTATIN 40 MG TABLET FEED TUBE (08:12)
--- NOTE | 2021-08-27 09:04 | WPDINTPN ---
Progress Note: A&P Assessment and Plan (1) Acute respiratory failure: Code(s): J96.00 - Acute respiratory failure, unspecified whether with hypoxia or hypercapnia Status: Acute Assessment and Plan: Acute Respiratory failure secondary to pneumonia which could be aspiration versus community-acquired 08/13 Patient was emergently intubated in ICU CT scan showed Diffuse ground-glass and consolidative opacities. Repeat CT scan 08/24 IMPRESSION: 1. Diffuse lung disease with overall improvement, consistent with resolving infection an/or pulmonary edema. 2. Persistent near complete collapse of the left lower lobe. 3. Scattered indeterminate pulmonary nodules which could reflect resolving infection. Follow-up CT after resolution of pneumonia is recommended. 4. Mediastinal and bilateral hilar lymphadenopathy, likely reactive. -chest x-ray reviewed -requested RT to advance ET tube to 28 cm at the lip -patient failed his PSV trial08/23 and was placed back on ASV mode. At night patient was tachypneic and desaturating. He was switched to CMV mode. -currently on 8 of PEEP and 30 % FiO2. I -I tried PSV of 5/8 for few hours. Patient had high borderline RSBI. Patient switch back now CMV for bronchoscopy. Will try weaning trial again tomorrow -08/25 good response to a dose of Diamox - 08/25 underwent diagnostic and therapeutic bronchoscopy. Significant amount of secretions bilaterally which were seen which were suctioned out ABGs reviewed Continue full mechanical ventilation support to prevent hypoxemia/hypercarbia and end organ damage. Low tidal volume ventilation strategy to prevent volutrauma Continue Bronchodilators 08/26 Patient placed on weaning trial of 5/8 this morning. Failed weaning trial due to respiratory acidosis and hypercarbia on ABG but tolerated pressure support ventilation trial for few hours Will try weaning trial again today. Patient placed on sedation holiday If patient continues to fail he may need tracheostomy. Patient was significantly weak and debilitated even before he got sick. (2) Septic shock: Code(s): A41.9 - Sepsis, unspecified organism; R65.21 - Severe sepsis with septic shock Status: Acute Assessment and Plan: Septic along with cardiogenic shock secondary to pneumonia, possible cardiogenic component -UA negative - urine Legionella and pneumococcal antigen: Not detected -08/13: Blood cultures negative x2 -patient has received adequate fluids since admission -OFF Levophed and vasopressin since 08/18 -likely cardiogenic shock given right sided dysfunction on echocardiogram secondary to STEMI -OFF dobutamine since 08/17 as he went into AFib RVR, was given metoprolol remained in AFib RVR and dropped his pressures, amiodarone was started with conversion to sinus rhythm. Patient was on Levophed briefly is currently off -off stress dose steroids -patient completed a 10 day course of vancomycin, cefepime on 08/23, azithromycin dc'd 08/18 08/15: PICC line was inserted, femoral line was removed 08/19/2021: Bilateral lower extremity venous Dopplers were negative for DVT 08/14 echocardiogram: Showed EF of 40-45%, posterior and inferior segments are hyperdynamic, right ventricle chamber is severely enlarged, right ventricular systolic function is reduced -08/[address] sinuses showed Mild sinus disease of the right maxillary, ethmoid and sphenoid sinuses. CT chest showed 1. Diffuse lung disease with overall improvement, consistent with resolving infection an/or pulmonary edema. 2. Persistent near complete collapse of the left lower lobe. 3. Scattered indeterminate pulmonary nodules which could reflect resolving infection. Follow-up CT after resolution of pneumonia is recommended. 4. Mediastinal and bilateral hilar lymphadenopathy, likely reactive. Normal lipase Repeat sputum and blood cultures were sent and are negative now Replaced Vanessa and check UA which was negative procalcitonin 1.3 Patient was restarted
--- NOTE | 2021-08-27 09:10 | PM.IMPN ---
Progress Note: A&P Assessment and Plan (1) Acute respiratory failure: Code(s): J96.00 - Acute respiratory failure, unspecified whether with hypoxia or hypercapnia Status: Acute Assessment and Plan: Acute Respiratory failure secondary to pneumonia which could be aspiration versus community-acquired +/- ARDS. 08/13 Patient was emergently intubated in ICU CTA chest 08/14 Extensive bilateral pneumonia, greatest in the left lower lobe but no PE. CT Chest 08/24 showing diffuse lung disease with overall improvement, consistent with resolving infection an/or pulmonary edema, Persistent near complete collapse of the left lower lobe and Scattered indeterminate pulmonary nodules which could reflect resolving infection with reacitve Mediastinal and bilateral hilar lymphadenopathy. Was having fevers 08/24: Consider atelectasis if ET tube was riding high. Consider aspiration. Fever resolved. 08/25: Bronch with appropriate cultures sent; clinically improved. Chest x-ray this morning:Diffuse interstitial and mild airspace opacities throughout the bilateral mid and lower lung zones most likely from edema although differential includes pneumonia. Small left pleural effusion. Remains intubated and on light sedation. -- 08/24 BCx NGTD, Sputum growing Yeast of unclear significance; Bronch growing GPC. Ffollow up on bronch washings. -- Continue full mechanical ventilation support to prevent hypoxemia/hypercarbia and end organ damage. -- Continue Bronchodilators and Abx -- Continue breathing trials as tolerated. Possible extubation today. Appreciate manager of merchandising input. (2) Septic shock: Code(s): A41.9 - Sepsis, unspecified organism; R65.21 - Severe sepsis with septic shock Status: Acute Assessment and Plan: Septic shock along with cardiogenic shock secondary to pneumonia and heart failure UA 08/13 not consistent with UTI Urine Legionella and pneumococcal antigen negative Blood cultures 08/13 negative x2. Sputum 08/16 negative. Patient has received adequate fluids resuscitation. OFF Levophed and vasopressin since 08/18 Likely cardiogenic shock given right sided dysfunction on echocardiogram secondary to STEMI treated with dobutamine (cardiology feels the dilated right ventricle is more chronic) OFF dobutamine since 08/17 as he went into AFib RVR, was given metoprolol but dropped his blood pressures; Amiodarone was started with conversion to sinus rhythm. Patient was on Levophed briefly but is currently off Off stress dose steroids Finished 10 day course of abx with vancomycin and cefepime ending 08/23; Azithromycin dc'd 08/18 08/15: PICC line was inserted, femoral line was removed 08/18: Bilateral upper and lower extremity venous Dopplers were negative for DVT 08/24: Having fevers again and WBC was up to 25K concerning for infectious process. Culutres obtained and abx restarted. WBC worse today. CT Sinus showing?mild sinus disease of the right maxillary, ethmoid and sphenoid sinuses. CT Chest as above. 08/24: Sputum Cx growing yeast. BCx NGTD. 08/25 Bronch with washings. Cx showing GPC. -- Left leg cool to touch but good peripheral pulses; consider autonomic dysfunction. Follow -- Follow up on cultures as mentioned above -- Continue Abx (3) Pneumonia: Code(s): J18.9 - Pneumonia, unspecified organism Status: Acute Assessment and Plan: See above (4) Altered mental status: Code(s): R41.82 - Altered mental status, unspecified Status: Acute Assessment and Plan: Likely toxic metabolic encephalopathy from sepsis He is now sedated for mechanical ventilation, opening eyes and following commands Unremarkable head CT Normal ammonia and TSH level Alert and appropriate -- follow --re-evaluate once he is extubated. 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 OG tub
[2021-08-27 09:29] LABS: Alveolar/Arterial O2 Gradient 73.9 mmHg; Base Excess ABG 3.3 mEq/l (+/-2.0); Fractional Inspired Oxygen 30 %; HCO3 ABG 27.1 mEq/l (22.0-26.0); Oxygen Content ABG 13.8 %vol (16.0-22.0); Oxygen Saturation ABG 97.6 % (95.0-100.0); Oxyhemoglobin 95.9 % THb (90.0-100.0); PCO2 ABG 38.3 mmHg (35.0-45.0); PO2 FiO2 Ratio Arterial Blood 3.17 %; Total Hemoglobin 10.1 g/dL (12.0-18.0); pH ABG 7.468 (7.350-7.450)
[2021-08-27 09:32] LABS: Device VENTILATOR; Modified Allen's Test Pass; Site Drawn RIGHT RADIAL
[2021-08-27 09:33] LABS: Arterial Blood Gas PEEP 8 cmH2O; Arterial Blood Gas Pressure Support 5 cmH2O; Arterial Blood Gas Vent Mode SPONTANEOUS
--- NOTE | 2021-08-27 09:39 | PM.EVENT ---
Event Note Event Note Event Note: 06/25 PSV SBT done for close to 1 hour. RSBI, ABGI and Vitals acceptable. Pt awake and following commands. He has a cuff leak. His cough is weak but this is the best he has performed a weaning trial. I will extubate patient and and monitor closely. NPO for now. He may need BiPAP or even re-intubation. If patient gets reintubated he will need tracheostomy.
[2021-08-27] MEDS: racEPINEPHrine 2.25% NEBU SOLN 0.5 ML VIAL.NEB INHALATION (10:55)
[2021-08-27] MEDS: methylPREDNISolone SOD SUCC 40 MG VIAL IV PUSH ×2 (11:33→17:50)
[2021-08-27 11:47] LABS: Glucose Point of Care 117 mg/dl (65-105)
[2021-08-27 17:50] LABS: Glucose Point of Care 121 mg/dl (65-105)
[2021-08-27 22:37] LABS: Alveolar/Arterial O2 Gradient 219.6 mmHg; Base Excess ABG 4.8 mEq/l (+/-2.0); Carboxyhemoglobin 0.2 % THb (0-2.0); Fractional Inspired Oxygen 50 %; HCO3 ABG 28.5 mEq/l (22.0-26.0); Methemoglobin ABG 0.5 %THb (0-1.5); Oxygen Saturation ABG 97.6 % (95.0-100.0); Oxyhemoglobin 95.9 % THb (90.0-100.0); PCO2 ABG 38.9 mmHg (35.0-45.0); PO2 ABG 93.1 mmHg (80.0-100.0); PO2 FiO2 Ratio Arterial Blood 1.86 %; Reduced Hemoglobin 3.4 %THb (0-5.0); pH ABG 7.483 (7.350-7.450)
[2021-08-27 22:42] LABS: Device HIGH FLOW THERAPY; Modified Allen's Test Pass; Site Drawn RIGHT RADIAL
[2021-08-28] VITALS (26 sets, daily range): BP systolic 119–160; BP diastolic 70–99; PULSE 81–97; RESP 12–28; TEMP 37.4–37.6; O2SAT 96–100; BMI 10.0
[2021-08-28 00:21] LABS: Glucose Point of Care 110 mg/dl (65-105)
[2021-08-28] MEDS: methylPREDNISolone SOD SUCC 40 MG VIAL IV PUSH ×5 (00:37→23:52)
[2021-08-28] MEDS: IPRATROPIUM BR 0.02% INH SOLN 0.5 MG/2.5 ML VIAL INHALATION ×4 (02:11→20:08)
[2021-08-28] MEDS: ALBUTEROL SULFATE NEB 2.5 MG/3 ML INH INHALATION ×4 (02:11→20:07)
[2021-08-28 05:41] LABS: Alveolar/Arterial O2 Gradient 219.6 mmHg; Base Excess ABG 5.7 mEq/l (+/-2.0); Carboxyhemoglobin 0.1 % THb (0-2.0); Fractional Inspired Oxygen 50 %; HCO3 ABG 28.6 mEq/l (22.0-26.0); Methemoglobin ABG 0.7 %THb (0-1.5); Oxygen Content ABG 13.6 %vol (16.0-22.0); Oxyhemoglobin 95.9 % THb (90.0-100.0); PCO2 ABG 35.3 mmHg (35.0-45.0); PO2 ABG 97.2 mmHg (80.0-100.0); PO2 FiO2 Ratio Arterial Blood 1.94 %; Reduced Hemoglobin 3.3 %THb (0-5.0)
[2021-08-28 05:43] LABS: Device HIGH FLOW THERAPY; Modified Allen's Test Pass; Site Drawn RIGHT RADIAL
[2021-08-28 05:52] LABS: pH ABG 7.527 (7.350-7.450)
[2021-08-28] MEDS: CENTRAL LINE FLUSH 10 ML IV PUSH ×3 (06:04→21:09)
[2021-08-28] MEDS: LEVOTHYROXINE SODIUM 25 MCG TABLET FEED TUBE (06:04)
[2021-08-28 06:34] LABS: Hematocrit 29.7 % (42.0-52.0); Hemoglobin 9.4 g/dL (14.0-18.0); Mean Corpuscular HGB Conc 31.6 g/dl (32-36); Mean Corpuscular Hemoglobin 31.5 pg (26-34); Mean Corpuscular Volume 99.7 fl (80-100); Mean Platelet Volume 12.9 fl (7.4-10.4); Platelet Count Result 330 k/mm3 (150-375); Red Blood Count 2.98 M/mm3 (4.6-6.20); Red Cell Distribution Width 13.2 % (11.5-14.5); White Blood Count 11.5 K/mm3 (4.5-10.0)
[2021-08-28 07:07] LABS: Alanine Aminotransferase 48 U/L (6-50); Albumin Level 3.3 g/dL (3.5-5.1); Alkaline Phosphatase 78 U/L (38-126); Anion Gap 3 mmol/L (8-16); Aspartate Amino Transferase 38 U/L (17-59); Bilirubin,Total 0.5 mg/dL (0.2-1.3); Blood Urea Nitrogen 61 mg/dL (9-20); Carbon Dioxide 32 mmol/L (22-30); Chloride 113 mmol/L (98-107); Estimated CRCL calculation 84 ml/min; Estimated Glomerular Filt Rate > 60; Glucose 109 mg/dL (65-110); Magnesium 2.3 mg/dL (1.6-2.3); Phosphorus 2.3 mg/dL (2.5-4.5); Potassium 3.3 mmol/L (3.4-5.0); Sodium 148 mmol/L (137-145)
[2021-08-28 07:26] LABS: Glucose Point of Care 108 mg/dl (65-105)
[2021-08-28] MEDS: PANTOPRAZOLE SODIUM IV 40 MG VIAL IV PUSH (09:10)
[2021-08-28] MEDS: METOPROLOL TARTRATE 12.5 MG TABLET FEED TUBE ×2 (09:10→21:09)
[2021-08-28] MEDS: FONDAPARINUX SODIUM 2.5 MG/0.5 ML SYRINGE SUB-Q (09:10)
[2021-08-28] MEDS: ATORVASTATIN 40 MG TABLET FEED TUBE (09:10)
[2021-08-28] MEDS: ASPIRIN 325 MG TABLET PO (09:10)
[2021-08-28] MEDS: POTASSIUM CHLORIDE 20 MEQ PACKET (FOR LIQUID) 40 MEQ FEED TUBE (09:15)
[2021-08-28] MEDS: POTASSIUM PHOS,M-BASIC-D-BASIC 20 MMOL in SODIUM CHLORIDE 0.9% IV 250 ML 64.17 MMOL IVPB (09:15)
--- NOTE | 2021-08-28 09:39 | PM.PNCARD ---
Progress Note: A&P Assessment and Plan (1) Acute coronary syndrome: Code(s): I24.9 - Acute ischemic heart disease, unspecified <MELLY Naylor - Last Filed: 08/28/21 09:43> Status: Acute <MELLY Naylor - Last Filed: 08/28/21 09:43> Assessment and Plan: Acute inferior OH occurring while admitted in the ICU for pneumonia and sepsis. ECG still with evidence of inferior OH with mild ST elevations in leads II, III and aVF with reciprocal changes in aVL. This is being managed conservatively with ASA, statin. Echo shows mild reduction of LV systolic function with EF 40-45%. Severe RV enlargement with RV systolic dysfunction. Remains stable from a hemodynamic standpoint. No additional cardiac recommendations to make at this time. Cardiology will follow him on an as needed basis. <MELLY Naylor - Last Filed: 08/28/21 09:43> (2) Elevated troponin: Code(s): R77.8 - Other specified abnormalities of plasma proteins <MELLY Naylor - Last Filed: 08/28/21 09:43> Status: Acute <MELLY Naylor - Last Filed: 08/28/21 09:43> Assessment and Plan: As above. <MELLY Naylor - Last Filed: 08/28/21 09:43> Additional Plan Attending Addendum: I agree with the documentation and plan of care as outlined. <John Bauer MD - Last Filed: 08/28/21 14:55> Subjective Date/time seen: 08/28/21 09:39 <MELLY Naylor - Last Filed: 08/28/21 09:43> Interval history: Extubated over the weekend. Alert and oriented, talkative. He denies any chest pain, palpitations, or shortness of breath. <MELLY Naylor - Last Filed: 08/28/21 09:43> Review of Systems Review of Systems: All systems reviewed & are unremarkable except as noted in HPI and below <MELLY Naylor - Last Filed: 08/28/21 09:43> Exam Const: General: comfortable and no acute distress <MELLY Naylor - Last Filed: 08/28/21 09:43> Other: Remarkably comfortable chronically ill man on the ventilator awake and alert <MELLY Nalyor - Last Filed: 08/28/21 09:43> HENMT: Head: normal to inspection <MELLY Naylor - Last Filed: 08/28/21 09:43> Mouth: Yes moist mucous membranes <JENNIFER NaylorC - Last Filed: 08/28/21 09:43> Eyes: General: appearance normal, both eyes and all related structures <MELLY Naylor - Last Filed: 08/28/21 09:43> Sclera: sclerae normal <MELLY Naylor - Last Filed: 08/28/21 09:43> Neck: Neck: supple and no JVD <JENNIFER NaylorC - Last Filed: 08/28/21 09:43> Other: mild elevation of jugular venous pressure <MELLY Naylor - Last Filed: 08/28/21 09:43> Resp: Effort & Inspection: normal respiratory effort <MELLY Naylor - Last Filed: 08/28/21 09:43> Auscultation: rhonchi (Diffuse expiratory) and wheezes (Diffuse expiratory) <MELLY Naylor - Last Filed: 08/28/21 09:43> Other: central rhonchi noted <MELLY Naylor - Last Filed: 08/28/21 09:43> Cardio: Rate: regular rate <MELLY Naylor - Last Filed: 08/28/21 09:43> Rhythm: regular rhythm <MELLY Naylor - Last Filed: 08/28/21 09:43> Heart sounds: S1 normal heart sound present, S2 normal heart sound present, Gallop heart sound present and no murmurs <MELLY Naylor Last Filed: 08/28/21 09:43> Other: no murmur no gallop occasional PVC <MELLY Naylor - Last Filed: 08/28/21 09:43> GI: Inspection: non-distended <MELLY Naylor - Last Filed: 08/28/21 09:43> Auscultation: normal bowel sounds <MELLY Naylor - Last Filed: 08/28/21 09:43> Urinary Catheter: Urinary Catheter: patent and draining <MELLY Naylor - Last Filed: 08/28/21 09:43> Skin: General skin exam: normal color and no rashes or lesions noted (Other than some small areas of ecchymosis due to phlebotomy) <MELLY Naylor - Last Filed: 08/28/21 09:43> Neuro: Othe
--- NOTE | 2021-08-28 10:39 | WPDINTPN ---
Progress Note: A&P Assessment and Plan (1) Acute respiratory failure: Code(s): J96.00 - Acute respiratory failure, unspecified whether with hypoxia or hypercapnia Status: Acute Assessment and Plan: Acute Respiratory failure secondary to pneumonia which could be aspiration versus community-acquired 08/13 Patient was emergently intubated in ICU CT scan showed Diffuse ground-glass and consolidative opacities. Repeat CT scan 08/24 IMPRESSION: 1. Diffuse lung disease with overall improvement, consistent with resolving infection an/or pulmonary edema. 2. Persistent near complete collapse of the left lower lobe. 3. Scattered indeterminate pulmonary nodules which could reflect resolving infection. Follow-up CT after resolution of pneumonia is recommended. 4. Mediastinal and bilateral hilar lymphadenopathy, likely reactive. Chest x-ray reviewed -patient failed weaning trials of multiple days - 08/25 underwent diagnostic and therapeutic bronchoscopy. Significant amount of secretions bilaterally which were seen which were suctioned out 08/27 06/25 PSV SBT done for close to 1 hour. RSBI, ABGI and Vitals acceptable. Pt awake and following commands.? He has a cuff leak.? His cough was weak but this is the best he has performed a weaning trial.? Patient was extubated and monitored closely.? He was kept NPO. Approximately an hour after extubation patient started being more tachypnea.? Exam patient had some inspiratory stridor.? He states that he does feel short of breath.? Patient was treated with racemic epinephrine and started on Solu-Medrol.? Patient was placed on BiPAP. Later in the day patient tolerated few hours of BiPAP was on nasal cannula. BiPAP was placed back at night. In the middle night patient requested BiPAP to be removed and he was placed on Airvo. This morning he is on Airvo at 55% FiO2 and 40 L flow. I have weaned FiO2 to 45%. Continue Airvo as tolerated and BiPAP p.r.n. and at night. I will add incentive spirometry, PT OT consult Hopefully we can avoid re-intubation although patient remains at risk of re-intubation due to his debility and weakness. Will resume tube feeds If patient gets reintubated he will need tracheostomy.? Patient is agreeable to reintubation if needed (2) Septic shock: Code(s): A41.9 - Sepsis, unspecified organism; R65.21 - Severe sepsis with septic shock Status: Acute Assessment and Plan: Septic along with cardiogenic shock secondary to pneumonia, possible cardiogenic component -UA negative - urine Legionella and pneumococcal antigen: Not detected -08/13: Blood cultures negative x2 -patient has received adequate fluids since admission -OFF Levophed and vasopressin since 08/18 -likely cardiogenic shock given right sided dysfunction on echocardiogram secondary to STEMI -OFF dobutamine since 08/17 as he went into AFib RVR, was given metoprolol remained in AFib RVR and dropped his pressures, amiodarone was started with conversion to sinus rhythm. Patient was on Levophed briefly is currently off -off stress dose steroids -patient completed a 10 day course of vancomycin, cefepime on 08/23, azithromycin dc'd 08/18 08/15: PICC line was inserted, femoral line was removed 08/19/2021: Bilateral lower extremity venous Dopplers were negative for DVT 08/14 echocardiogram: Showed EF of 40-45%, posterior and inferior segments are hyperdynamic, right ventricle chamber is severely enlarged, right ventricular systolic function is reduced -08/[address] sinuses showed Mild sinus disease of the right maxillary, ethmoid and sphenoid sinuses. CT chest showed 1. Diffuse lung disease with overall improvement, consistent with resolving infection an/or pulmonary edema. 2. Persistent near complete collapse of the left lower lobe. 3. Scattered indeterminate pulmonary nodules which could reflect resolving infection. Follow-up CT after resolution of pneumonia is recommended. 4. Mediastinal and bilateral hilar lymphaden
--- NOTE | 2021-08-28 11:37 | PCFNICU ---
ICU Rounding Note: Pt current nutrition is Vital AF 1.2 at 75 ml/hr over 22 hours . Last recorded weight is 80.2 kg, up from 78.4 kg. Bowel Motility:+BM 08/27 Labs Reviewed:BUN 61, K 3.3,Na 148, Alb 3.3,Hct 29.7, Hgb 9.4 Meds Noted: Lipitor, Atrovent, Synthroid, Solu-Medrol, Lopressor, Protonix,Zosyn. Skin: Deep Tissue-Coccyx. Additional Notes: Patient has been extubated. Tube feeding have been restart with Vital AF 1.2 @ 75 ml/hr with 200 ml free water flush. Patient is tolerating tube feedings per nursing. Berny BID for wound healing being flushed providing an additional 90 kcals and 2.5 gms protein. Agree with diet orders. Following daily in ICU rounds. Will monitor every Saturday and Saturday.
--- NOTE | 2021-08-28 11:41 | PM.IMPN ---
Progress Note: A&P Assessment and Plan (1) Acute respiratory failure: Code(s): J96.00 - Acute respiratory failure, unspecified whether with hypoxia or hypercapnia Status: Acute Assessment and Plan: Acute Respiratory failure secondary to pneumonia which could be aspiration versus community-acquired +/- ARDS. 08/13 Patient was emergently intubated in ICU CTA chest 08/14 Extensive bilateral pneumonia, greatest in the left lower lobe but no PE. CT Chest 08/24 showing diffuse lung disease with overall improvement, consistent with resolving infection an/or pulmonary edema, Persistent near complete collapse of the left lower lobe and Scattered indeterminate pulmonary nodules which could reflect resolving infection with reacitve Mediastinal and bilateral hilar lymphadenopathy. Was having fevers 08/24: Consider atelectasis if ET tube was riding high. Consider aspiration. Fever resolved. 08/25: Bronch with appropriate cultures sent; clinically improved. Chest x-ray this morning:Diffuse interstitial and mild airspace opacities throughout the bilateral mid and lower lung zones most likely from edema although differential includes pneumonia. Small left pleural effusion. 08/27: Patient extubated and so far tolerating. -- Wean O2 as tolerated -- On S-M for the stridor -- Continue Bronchodilators and Abx (2) Septic shock: Code(s): A41.9 - Sepsis, unspecified organism; R65.21 - Severe sepsis with septic shock Status: Acute Assessment and Plan: Septic shock along with cardiogenic shock secondary to pneumonia and heart failure UA 08/13 not consistent with UTI Urine Legionella and pneumococcal antigen negative Blood cultures 08/13 negative x2. Sputum 08/16 negative. Patient has received adequate fluids resuscitation. OFF Levophed and vasopressin since 08/18 Likely cardiogenic shock given right sided dysfunction on echocardiogram secondary to STEMI treated with dobutamine (cardiology feels the dilated right ventricle is more chronic) OFF dobutamine since 08/17 as he went into AFib RVR, was given metoprolol but dropped his blood pressures; Amiodarone was started with conversion to sinus rhythm. Patient was on Levophed briefly but is currently off Off stress dose steroids Finished 10 day course of abx with vancomycin and cefepime ending 08/23; Azithromycin dc'd 08/18 08/15: PICC line was inserted, femoral line was removed 08/18: Bilateral upper and lower extremity venous Dopplers were negative for DVT 08/24: Having fevers again and WBC was up to 25K concerning for infectious process. Culutres obtained and abx restarted. WBC worse today. CT Sinus showing?mild sinus disease of the right maxillary, ethmoid and sphenoid sinuses. CT Chest as above. 08/24: Sputum Cx growing yeast. BCx NGTD. 08/25 Bronch with washings. Cx showing GPC. -- 08/24 BCx NGTD, Sputum growing Yeast of unclear significance -- Bronch growing Klebsiella that is relatively pansensitive. -- Continue IV abx. (3) Pneumonia: Code(s): J18.9 - Pneumonia, unspecified organism Status: Acute Assessment and Plan: See above (4) Altered mental status: Code(s): R41.82 - Altered mental status, unspecified Status: Acute Assessment and Plan: Likely toxic metabolic encephalopathy from sepsis He is now sedated for mechanical ventilation, opening eyes and following commands Unremarkable head CT Normal ammonia and TSH level Alert and appropriate. Mild confusion overnight but better. 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 OG tube was placed and patient was started on tube feeds PEG tube was opened but was malfunctioning. Ultimately, PEG tube was exchanged on 08/17/2021 by GI and is now working fine. Patient tolerating tube feeds. Appreciate GI input (6) Thro
--- NOTE | 2021-08-28 15:25 | PM.PNPUL ---
Progress Note: A&P Assessment and Plan (1) Acute respiratory failure: Code(s): J96.00 - Acute respiratory failure, unspecified whether with hypoxia or hypercapnia Status: Acute Assessment and Plan: He is recovery from acute respiratory failure with underlying chronic aspiration, extubated 08/27/[address] Rodríguez, amazing improvement. He grew Klebsiella on his bronch BAL, on treatment Extubated yesterday 08/27, doing well on AirVo 45%, off BiPAP; on Zosyn x 7 days for the Klebsiella. Hypercapnea resolved. I am singing off. Please recall if needed. History : was emergently 08/13/2021; has had persistent pneumonia. He has had a trach before, did not need a vent, just an airway after this throat surgeries, trach lasted 6 months. He had an NH this admission, his right heart is significantly dysfunctional. This is a chronic condition as severe RV dysfunction is usually not a sudden event. RVSP is not reported. He likely has severe pulmonary hypertension. It is not clear what caused this. He has decreased LV systolic function EF 40% which is better than the RV function. His RV problems are out of proportion to his LV problems. He has no history of PE, no underlying lung disease, no documented sleep issue which would only cause mild pulmonary hypertension. He has no known autoimmune condition. He will likely need a tracheostomy, may not even need to use a vent if he has an adequate airway. His says that he has needed stretching of his upper GI tract, however last time, it could not be accomplished due to his abnormal anatomy after surgeries throat cancer and radiation. (2) Pneumonia: Code(s): J18.9 - Pneumonia, unspecified organism Status: Acute Assessment and Plan: This patient came in with aspiration pneumonia, did not grow out any organisms, was negative for COVID, Legionella, pneumococcus. He had bilateral infiltrates, now more in the LLL by chest CT 08/24/2021. Secretions were suctioned, and he had copious white mucoid secretions in both bases. Gram stain shows moderate WBC, few Gram positive cocci. Cell count showed 98% neutrophils consistent with a bacterial infection. He is on Zosyn IV 3.375 mg started 08/24/2021. His Procalcitonin was massive 91.4 on 08/13, now down to 1.3 on 08/24/21. His WBC is 15K, lower. Overall, infectious markers are better. BAL 08/25/21 : light growth Klebsiella; this could even be colonization. Now on Zosyn 7 days. . Klebsiella pnemoniae M.I.C. RX --------- --- Amoxacillin/Clavulanate <=2 S Ampicillin 16 R Ampicillin/Sulbactam 4 S Cefazolin <=4 NR For infections other than uncomplicated UTI caused by E. coli, K. pneumoniae or P. mirabilis: Cefazolin is resistant if JATIN > or = 8 mcg/mL. (Distinguishing susceptible versus intermediate for isolates with JATIN < or = 4 mcg/mL requires additional testing.) Ceftazidime <=1 S Cefepime <=1 S Ceftriaxone <=1 S Ciprofloxacin <=0.25 S Levofloxacin <=0.12 S Gentamycin <=1 S Imipenem <=0.25 S Piperacillin/Tazobactam <=4 S Tobramycin <=1 S Trimethoprim/Sulfamethoxazole <=20 S Legend: S = Susceptible I = Intermediate
[2021-08-28 17:54] LABS: Glucose Point of Care 135 mg/dl (65-105)
[2021-08-28 23:46] LABS: Glucose Point of Care 136 mg/dl (65-105)
[2021-08-29] VITALS (24 sets, daily range): BP systolic 130–152; BP diastolic 85–101; PULSE 90–104; RESP 18–24; TEMP 37.3–37.6; O2SAT 92–100
[2021-08-29] MEDS: ALBUTEROL SULFATE NEB 2.5 MG/3 ML INH INHALATION ×4 (02:23→20:03)
[2021-08-29] MEDS: IPRATROPIUM BR 0.02% INH SOLN 0.5 MG/2.5 ML VIAL INHALATION ×4 (02:23→20:03)
[2021-08-29] MEDS: methylPREDNISolone SOD SUCC 40 MG VIAL IV PUSH ×3 (05:35→17:52)
[2021-08-29] MEDS: CENTRAL LINE FLUSH 10 ML IV PUSH ×3 (05:37→20:42)
[2021-08-29] MEDS: LEVOTHYROXINE SODIUM 25 MCG TABLET FEED TUBE (05:38)
[2021-08-29 06:22] LABS: Glucose Point of Care 127 mg/dl (65-105)
[2021-08-29] MEDS: FONDAPARINUX SODIUM 2.5 MG/0.5 ML SYRINGE SUB-Q (08:04)
[2021-08-29] MEDS: ATORVASTATIN 40 MG TABLET FEED TUBE (08:05)
[2021-08-29] MEDS: ASPIRIN 325 MG TABLET PO (08:05)
[2021-08-29] MEDS: PANTOPRAZOLE SODIUM IV 40 MG VIAL IV PUSH (08:05)
[2021-08-29] MEDS: METOPROLOL TARTRATE 12.5 MG TABLET FEED TUBE ×2 (08:05→20:41)
[2021-08-29 08:09] LABS: Hematocrit 29.8 % (42.0-52.0); Hemoglobin 9.7 g/dL (14.0-18.0); Mean Corpuscular HGB Conc 32.6 g/dl (32-36); Mean Corpuscular Hemoglobin 31.8 pg (26-34); Mean Corpuscular Volume 97.7 fl (80-100); Mean Platelet Volume 12.2 fl (7.4-10.4); Platelet Count Result 348 k/mm3 (150-375); Red Blood Count 3.05 M/mm3 (4.6-6.20); Red Cell Distribution Width 13.2 % (11.5-14.5); White Blood Count 10.7 K/mm3 (4.5-10.0)
[2021-08-29 08:22] LABS: Alanine Aminotransferase 41 U/L (6-50); Alkaline Phosphatase 71 U/L (38-126); Anion Gap 4 mmol/L (8-16); Aspartate Amino Transferase 26 U/L (17-59); Bilirubin,Total 0.4 mg/dL (0.2-1.3); Blood Urea Nitrogen 59 mg/dL (9-20); Calcium 8.7 mg/dL (8.4-10.2); Carbon Dioxide 30 mmol/L (22-30); Chloride 113 mmol/L (98-107); Estimated CRCL calculation 84 ml/min; Estimated Glomerular Filt Rate > 60; Glucose 139 mg/dL (65-110); Magnesium 2.1 mg/dL (1.6-2.3); Potassium 3.5 mmol/L (3.4-5.0); Sodium 147 mmol/L (137-145)
--- NOTE | 2021-08-29 09:15 | WPDINTPN ---
Progress Note: A&P Assessment and Plan (1) Acute respiratory failure: Code(s): J96.00 - Acute respiratory failure, unspecified whether with hypoxia or hypercapnia Status: Acute Assessment and Plan: Acute Respiratory failure secondary to pneumonia which could be aspiration versus community-acquired 08/13 Patient was emergently intubated in ICU CT scan showed Diffuse ground-glass and consolidative opacities. Repeat CT scan 08/24 IMPRESSION: 1. Diffuse lung disease with overall improvement, consistent with resolving infection an/or pulmonary edema. 2. Persistent near complete collapse of the left lower lobe. 3. Scattered indeterminate pulmonary nodules which could reflect resolving infection. Follow-up CT after resolution of pneumonia is recommended. 4. Mediastinal and bilateral hilar lymphadenopathy, likely reactive. Chest x-ray reviewed -patient failed weaning trials of multiple days - 08/25 underwent diagnostic and therapeutic bronchoscopy. Significant amount of secretions bilaterally which were seen which were suctioned out 08/27 06/25 PSV SBT done for close to 1 hour. RSBI, ABGI and Vitals acceptable. Pt awake and following commands.? He has a cuff leak.? His cough was weak but this is the best he has performed a weaning trial.? Patient was extubated and monitored closely.? He was kept NPO. Approximately an hour after extubation patient started being more tachypnea.? Exam patient had some inspiratory stridor.? He states that he does feel short of breath.? Patient was treated with racemic epinephrine and started on Solu-Medrol.? Patient was placed on BiPAP. Later in the day patient tolerated few hours of BiPAP was on nasal cannula. BiPAP was placed back at night. In the middle night patient requested BiPAP to be removed and he was placed on Airvo. patient refused BiPAP again last night. This morning he is on Airvo at 40% FiO2 and 40 L flow. I will continue Airvo as tolerated and use BiPAP p.r.n. basis and at night. I have discussed benefits of positive pressure ventilation with the patient. I have weaned FiO2 to 45%. Continue Airvo as tolerated and BiPAP p.r.n. and at night. Continue incentive spirometry, PT OT t (2) Septic shock: Code(s): A41.9 - Sepsis, unspecified organism; R65.21 - Severe sepsis with septic shock Status: Acute Assessment and Plan: Septic along with cardiogenic shock secondary to pneumonia, possible cardiogenic component -UA negative - urine Legionella and pneumococcal antigen: Not detected -08/13: Blood cultures negative x2 -patient has received adequate fluids since admission -OFF Levophed and vasopressin since 08/18 -likely cardiogenic shock given right sided dysfunction on echocardiogram secondary to STEMI -OFF dobutamine since 08/17 as he went into AFib RVR, was given metoprolol remained in AFib RVR and dropped his pressures, amiodarone was started with conversion to sinus rhythm. Patient was on Levophed briefly is currently off -off stress dose steroids -patient completed a 10 day course of vancomycin, cefepime on 08/23, azithromycin dc'd 08/18 08/15: PICC line was inserted, femoral line was removed 08/19/2021: Bilateral lower extremity venous Dopplers were negative for DVT 08/14 echocardiogram: Showed EF of 40-45%, posterior and inferior segments are hyperdynamic, right ventricle chamber is severely enlarged, right ventricular systolic function is reduced -08/[address] sinuses showed Mild sinus disease of the right maxillary, ethmoid and sphenoid sinuses. CT chest showed 1. Diffuse lung disease with overall improvement, consistent with resolving infection an/or pulmonary edema. 2. Persistent near complete collapse of the left lower lobe. 3. Scattered indeterminate pulmonary nodules which could reflect resolving infection. Follow-up CT after resolution of pneumonia is recommended. 4. Mediastinal and bilateral hilar lymphadenopathy, likely reactive. Normal lipase 08/25 Patient unde
[2021-08-29] MEDS: POTASSIUM CHLORIDE 20 MEQ PACKET (FOR LIQUID) 40 MEQ FEED TUBE (10:11)
--- NOTE | 2021-08-29 11:23 | PCNFU ---
Nutrition Follow-Up Complete: Increased protein needs as related to wounds as evidenced by Deep Tissue Pressure injury reported. Goal: Meet estimated nutritional needs Patient is progressing towards goal. We will continue current goal. Pt current nutrition is Vital AF 1.2 at 75 ml/hr over 22 hours. Nutrition recommendation: Jevity 1.5 at 70 ml/hr. Last recorded weight is 80.5 kg, up from 78.4 kg on admit. Bowel Motility: +Bm noted 08/29 Labs Reviewed:Glu 139, BUN 59, Na 147, Hct 29.8,Hgb 9.7,Alb 3.0 Meds Noted:Lipitor, Atrovent, Synthroid, Solu-Medrol, Lopressor, Protonix,Zosyn. Skin: Deep Tissue Injury-coccyx Additional Notes: Patient with PEG tube feeding change today to Jevity 1.5 at 70 ml/hr, providing 2310 kcals/98 gms protein/1170 ml water. Current tube feeding is meeting 100% of caloric and protein needs. Free water flush 250 ml q 4 hours. Berny flush for wound healing BID providing an additional 90 kcals and 2.5 gms protein. Agree with diet orders. Monitoring: Will monitor every Saturday and Saturday.
[2021-08-29 12:37] LABS: Glucose Point of Care 153 mg/dl (65-105)
[2021-08-29] MEDS: ACETAMINOPHEN 325 MG TABLET 650 MG FEED TUBE (12:39)
--- NOTE | 2021-08-29 16:57 | PM.IMPN ---
Progress Note: A&P Assessment and Plan (1) Acute respiratory failure: Code(s): J96.00 - Acute respiratory failure, unspecified whether with hypoxia or hypercapnia Status: Acute Assessment and Plan: Acute Respiratory failure secondary to pneumonia which could be aspiration versus community-acquired +/- ARDS. 08/13 Patient was emergently intubated in ICU CTA chest 08/14 Extensive bilateral pneumonia, greatest in the left lower lobe but no PE. CT Chest 08/24 showing diffuse lung disease with overall improvement, consistent with resolving infection an/or pulmonary edema, Persistent near complete collapse of the left lower lobe and Scattered indeterminate pulmonary nodules which could reflect resolving infection with reacitve Mediastinal and bilateral hilar lymphadenopathy. Was having fevers 08/24: Consider atelectasis if ET tube was riding high. Consider aspiration. Fever resolved. 08/25: Bronch with appropriate cultures sent 08/27: Patient extubated and so far tolerating. 08/28 CXR: stable airspace opacities in the mid and lower lung barrett. -- Wean O2 as tolerated -- On S-M for the stridor -- Continue Bronchodilators and Abx -- Add CPT (2) Septic shock: Code(s): A41.9 - Sepsis, unspecified organism; R65.21 - Severe sepsis with septic shock Status: Acute Assessment and Plan: Septic shock along with cardiogenic shock secondary to pneumonia and heart failure UA 08/13 not consistent with UTI Urine Legionella and pneumococcal antigen negative Blood cultures 08/13 negative x2. Sputum 08/16 negative. Patient has received adequate fluids resuscitation. OFF Levophed and vasopressin since 08/18 Likely cardiogenic shock given right sided dysfunction on echocardiogram secondary to STEMI treated with dobutamine (cardiology feels the dilated right ventricle is more chronic) OFF dobutamine since 08/17 as he went into AFib RVR, was given metoprolol but dropped his blood pressures; Amiodarone was started with conversion to sinus rhythm. Patient was on Levophed briefly but is currently off Weaned off stress dose steroids Finished 10 day course of abx with vancomycin and cefepime ending 08/23; Azithromycin dc'd 08/18 08/15: PICC line was inserted, femoral line was removed 08/18: Bilateral upper and lower extremity venous Dopplers were negative for DVT 08/24: Having fevers again and WBC was up to 25K concerning for infectious process. Culutres obtained and abx restarted. WBC worse today. CT Sinus showing?mild sinus disease of the right maxillary, ethmoid and sphenoid sinuses. CT Chest as above. 08/24: Sputum Cx growing yeast. BCx NGTD. 08/25 Bronch with washings. Cx showing Klebsiella relatively pansensitive. -- Continue IV abx to complete 7 days. (3) Pneumonia: Code(s): J18.9 - Pneumonia, unspecified organism Status: Acute Assessment and Plan: See above (4) Altered mental status: Code(s): R41.82 - Altered mental status, unspecified Status: Acute Assessment and Plan: Likely toxic metabolic encephalopathy from sepsis Unremarkable head CT Normal ammonia and TSH level Alert and appropriate. Mild confusion but improving. Related to sleep deprivation? 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 OG tube was placed and patient was started on tube feeds PEG tube was opened but was malfunctioning. Ultimately, PEG tube was exchanged on 08/17/2021 by GI and is now working fine. Patient tolerating tube feeds. TF adjusted by nutrtion. Appreciate GI input (6) Thrombocytopenia: Code(s): D69.6 - Thrombocytopenia, unspecified Status: Acute Assessment and Plan: [place] related to overwhelmnig sepsis Plt count dropped to 44K but now has normalized. -- Plt count remaining normal -- started on fondaparinux on 08/20/2021 and josue
[2021-08-29 18:02] LABS: Glucose Point of Care 159 mg/dl (65-105)
[2021-08-29] MEDS: MELATONIN 5 MG TABLET FEED TUBE (20:41)
[2021-08-29 22:42] LABS: Glucose Point of Care 166 mg/dl (65-105)
[2021-08-30] VITALS (25 sets, daily range): BP systolic 126–142; BP diastolic 85–97; PULSE 86–99; RESP 18–23; TEMP 37.3–37.7; O2SAT 93–100
[2021-08-30] MEDS: methylPREDNISolone SOD SUCC 40 MG VIAL IV PUSH ×5 (00:42→23:41)
[2021-08-30] MEDS: ALBUTEROL SULFATE NEB 2.5 MG/3 ML INH INHALATION ×4 (02:16→21:11)
[2021-08-30] MEDS: IPRATROPIUM BR 0.02% INH SOLN 0.5 MG/2.5 ML VIAL INHALATION ×4 (02:16→21:11)
[2021-08-30 04:46] LABS: Hematocrit 29.2 % (42.0-52.0); Hemoglobin 9.4 g/dL (14.0-18.0); Mean Corpuscular HGB Conc 32.2 g/dl (32-36); Mean Corpuscular Hemoglobin 31.1 pg (26-34); Mean Corpuscular Volume 96.7 fl (80-100); Mean Platelet Volume 12.2 fl (7.4-10.4); Platelet Count Result 341 k/mm3 (150-375); Red Blood Count 3.02 M/mm3 (4.6-6.20); Red Cell Distribution Width 13.2 % (11.5-14.5); White Blood Count 9.9 K/mm3 (4.5-10.0)
[2021-08-30 04:59] LABS: Alanine Aminotransferase 40 U/L (6-50); Alkaline Phosphatase 65 U/L (38-126); Anion Gap 3 mmol/L (8-16); Aspartate Amino Transferase 35 U/L (17-59); Bilirubin,Total 0.4 mg/dL (0.2-1.3); Blood Urea Nitrogen 58 mg/dL (9-20); Calcium 8.4 mg/dL (8.4-10.2); Carbon Dioxide 31 mmol/L (22-30); Chloride 111 mmol/L (98-107); Estimated CRCL calculation 96 ml/min; Estimated Glomerular Filt Rate > 60; Glucose 162 mg/dL (65-110); Magnesium 2.1 mg/dL (1.6-2.3); Potassium 3.8 mmol/L (3.4-5.0); Sodium 145 mmol/L (137-145)
[2021-08-30] MEDS: LEVOTHYROXINE SODIUM 25 MCG TABLET FEED TUBE (05:17)
[2021-08-30] MEDS: CENTRAL LINE FLUSH 10 ML IV PUSH ×3 (05:17→23:07)
[2021-08-30] MEDS: ATORVASTATIN 40 MG TABLET FEED TUBE (09:15)
[2021-08-30] MEDS: FONDAPARINUX SODIUM 2.5 MG/0.5 ML SYRINGE SUB-Q (09:15)
[2021-08-30] MEDS: METOPROLOL TARTRATE 12.5 MG TABLET FEED TUBE ×2 (09:15→20:41)
[2021-08-30] MEDS: PANTOPRAZOLE SODIUM IV 40 MG VIAL IV PUSH (09:15)
[2021-08-30] MEDS: ASPIRIN 325 MG TABLET PO (09:15)
[2021-08-30 12:00] LABS: Glucose Point of Care 153 mg/dl (65-105)
--- NOTE | 2021-08-30 12:38 | PM.IMPN ---
Progress Note: A&P Assessment and Plan (1) Acute respiratory failure: Code(s): J96.00 - Acute respiratory failure, unspecified whether with hypoxia or hypercapnia Status: Acute Assessment and Plan: Acute Respiratory failure secondary to pneumonia which could be aspiration versus community-acquired +/- ARDS. 08/13 Patient was emergently intubated in ICU CTA chest 08/14 Extensive bilateral pneumonia, greatest in the left lower lobe but no PE. CT Chest 08/24 showing diffuse lung disease with overall improvement, consistent with resolving infection an/or pulmonary edema, Persistent near complete collapse of the left lower lobe and Scattered indeterminate pulmonary nodules which could reflect resolving infection with reacitve Mediastinal and bilateral hilar lymphadenopathy. Was having fevers 08/24: Consider atelectasis vs aspiration if ET tube was riding high. Abx started. Fever resolved. 08/25: Bronch with appropriate cultures sent and growing Klebsiella. 08/27: Patient extubated to [facility] 08/28 CXR: stable airspace opacities in the mid and lower lung barrett. -- Wean O2 as tolerated -- On S-M for the stridor -- Continue Bronchodilators and Abx -- Continue CPT -- Repeat CXR (2) Septic shock: Code(s): A41.9 - Sepsis, unspecified organism; R65.21 - Severe sepsis with septic shock Status: Acute Assessment and Plan: Septic shock along with cardiogenic shock secondary to pneumonia and heart failure UA 08/13 not consistent with UTI Urine Legionella and pneumococcal antigen negative Blood cultures 08/13 negative. Sputum 08/16 negative. Patient has received adequate fluids resuscitation. OFF Levophed and vasopressin since 08/18 Likely cardiogenic shock given right sided dysfunction on echocardiogram secondary to STEMI treated with dobutamine (cardiology feels the dilated right ventricle is more chronic) OFF dobutamine since 08/17 as he went into AFib RVR, was given metoprolol but dropped his blood pressures; Amiodarone was started with conversion to sinus rhythm. Patient was on Levophed briefly but is currently off Weaned off stress dose steroids Finished 10 day course of abx with vancomycin and cefepime ending 08/23; Azithromycin dc'd 08/18 08/15: PICC line was inserted, femoral line was removed 08/18: Bilateral upper and lower extremity venous Dopplers were negative for DVT 08/24: Having fevers again and WBC was up to 25K concerning for infectious process. Culutres obtained and abx restarted. CT Sinus showing?mild sinus disease of the right maxillary, ethmoid and sphenoid sinuses. CT Chest as above. 08/24: Sputum Cx growing yeast. BCx NGTD. 08/25 Bronch with washings. Cx showing Klebsiella relatively pansensitive. -- Continue IV abx to complete 7 days. (3) Pneumonia: Code(s): J18.9 - Pneumonia, unspecified organism Status: Acute Assessment and Plan: See above (4) Altered mental status: Code(s): R41.82 - Altered mental status, unspecified Status: Acute Assessment and Plan: Likely toxic metabolic encephalopathy from sepsis Unremarkable head CT Normal ammonia and TSH level Alert and appropriate. 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 OG tube was placed and patient was started on tube feeds PEG tube was opened but was malfunctioning so GI consulted. PEG tube was exchanged on 08/17/2021 by GI and is now working fine. Patient tolerating tube feeds. TF adjusted by nutrition. Appreciate GI input (6) Thrombocytopenia: Code(s): D69.6 - Thrombocytopenia, unspecified Status: Acute Assessment and Plan: [place] related to overwhelmnig sepsis Plt count dropped to 44K but now has normalized. -- Plt count remaining normal -- started on fondaparinux on 08/20/2021
--- NOTE | 2021-08-30 17:35 | PM.PNPUL ---
Progress Note: A&P Assessment and Plan (1) Acute respiratory failure: Code(s): J96.00 - Acute respiratory failure, unspecified whether with hypoxia or hypercapnia Status: Acute Assessment and Plan: He is recovery from acute respiratory failure with underlying chronic aspiration, extubated 08/27/[address] Rodríguez, amazing improvement. He grew Klebsiella on his bronch BAL, on treatment Off Airvo, on high flow nasal cannula 10 L/min, on Zosyn x 7 days for the Klebsiella. Hypercapnea resolved. Increase activity; PT OT. He is waiting on an IMU bed. History : was emergently 08/13/2021; has had persistent pneumonia. He has had a trach before, did not need a vent, just an airway after this throat surgeries, trach lasted 6 months. He had an PR this admission, his right heart is significantly dysfunctional. This is a chronic condition as severe RV dysfunction is usually not a sudden event. RVSP is not reported. He likely has severe pulmonary hypertension. It is not clear what caused this. He has decreased LV systolic function EF 40% which is better than the RV function. His RV problems are out of proportion to his LV problems. He has no history of PE, no underlying lung disease, no documented sleep issue which would only cause mild pulmonary hypertension. He has no known autoimmune condition. He will likely need a tracheostomy, may not even need to use a vent if he has an adequate airway. His says that he has needed stretching of his upper GI tract, however last time, it could not be accomplished due to his abnormal anatomy after surgeries throat cancer and radiation. (2) Pneumonia: Code(s): J18.9 - Pneumonia, unspecified organism Status: Acute Assessment and Plan: This patient came in with aspiration pneumonia, did not grow out any organisms, was negative for COVID, Legionella, pneumococcus. He had bilateral infiltrates, now more in the LLL by chest CT 08/24/2021. Secretions were suctioned, and he had copious white mucoid secretions in both bases. Gram stain shows moderate WBC, few Gram positive cocci. Cell count showed 98% neutrophils consistent with a bacterial infection. He is on Zosyn IV 3.375 mg started 08/24/2021. His Procalcitonin was massive 91.4 on 08/13, now down to 1.3 on 08/24/21. His WBC is 15K, lower. Overall, infectious markers are better. BAL 08/25/21 : light growth Klebsiella; this could even be colonization. Now on Zosyn 7 days. . Klebsiella pnemoniae M.I.C. RX --------- --- Amoxacillin/Clavulanate <=2 S Ampicillin 16 R Ampicillin/Sulbactam 4 S Cefazolin <=4 NR For infections other than uncomplicated UTI caused by E. coli, K. pneumoniae or P. mirabilis: Cefazolin is resistant if JATIN > or = 8 mcg/mL. (Distinguishing susceptible versus intermediate for isolates with JATIN < or = 4 mcg/mL requires additional testing.) Ceftazidime <=1 S Cefepime <=1 S Ceftriaxone <=1 S Ciprofloxacin <=0.25 S Levofloxacin <=0.12 S Gentamycin <=1 S Imipenem <=0.25 S Piperacillin/Tazobactam <=4 S Tobramycin <=1 S Trimethoprim/Sulfamethoxazole <=20 S Legend: S = Susceptib
[2021-08-30 18:36] LABS: Glucose Point of Care 150 mg/dl (65-105)
[2021-08-30] MEDS: MELATONIN 5 MG TABLET FEED TUBE (20:42)
[2021-08-30 23:38] LABS: Glucose Point of Care 150 mg/dl (65-105)
[2021-08-31] VITALS (24 sets, daily range): BP systolic 109–142; BP diastolic 80–98; PULSE 84–99; RESP 16–21; TEMP 37.2–37.5; O2SAT 93–100; BMI 26.2
[2021-08-31] MEDS: IPRATROPIUM BR 0.02% INH SOLN 0.5 MG/2.5 ML VIAL INHALATION ×4 (02:40→20:08)
[2021-08-31] MEDS: ALBUTEROL SULFATE NEB 2.5 MG/3 ML INH INHALATION ×4 (02:40→20:08)
[2021-08-31 06:18] LABS: Hematocrit 29.8 % (42.0-52.0); Hemoglobin 9.4 g/dL (14.0-18.0); Mean Corpuscular HGB Conc 31.5 g/dl (32-36); Mean Corpuscular Hemoglobin 31.1 pg (26-34); Mean Corpuscular Volume 98.7 fl (80-100); Mean Platelet Volume 12.2 fl (7.4-10.4); Platelet Count Result 328 k/mm3 (150-375); Red Blood Count 3.02 M/mm3 (4.6-6.20); Red Cell Distribution Width 13.1 % (11.5-14.5); White Blood Count 12.8 K/mm3 (4.5-10.0)
[2021-08-31] MEDS: CENTRAL LINE FLUSH 10 ML IV PUSH ×3 (06:20→23:04)
[2021-08-31] MEDS: LEVOTHYROXINE SODIUM 25 MCG TABLET FEED TUBE (06:21)
[2021-08-31] MEDS: methylPREDNISolone SOD SUCC 40 MG VIAL IV PUSH (06:21)
[2021-08-31 06:39] LABS: Alanine Aminotransferase 42 U/L (6-50); Albumin Level 2.9 g/dL (3.5-5.1); Alkaline Phosphatase 70 U/L (38-126); Anion Gap 3 mmol/L (8-16); Aspartate Amino Transferase 29 U/L (17-59); Bilirubin,Total 0.4 mg/dL (0.2-1.3); Blood Urea Nitrogen 45 mg/dL (9-20); Calcium 8.1 mg/dL (8.4-10.2); Carbon Dioxide 28 mmol/L (22-30); Chloride 110 mmol/L (98-107); Estimated CRCL calculation 110 ml/min; Estimated Glomerular Filt Rate > 60; Glucose 120 mg/dL (65-110); Magnesium 2.1 mg/dL (1.6-2.3); Potassium 3.6 mmol/L (3.4-5.0); Sodium 141 mmol/L (137-145)
[2021-08-31] MEDS: ATORVASTATIN 40 MG TABLET FEED TUBE (09:09)
[2021-08-31] MEDS: METOPROLOL TARTRATE 12.5 MG TABLET FEED TUBE ×2 (09:09→20:27)
[2021-08-31] MEDS: ASPIRIN 325 MG TABLET PO (09:10)
[2021-08-31] MEDS: PANTOPRAZOLE SODIUM IV 40 MG VIAL IV PUSH (09:10)
[2021-08-31] MEDS: FONDAPARINUX SODIUM 2.5 MG/0.5 ML SYRINGE SUB-Q (09:10)
[2021-08-31] MEDS: ACETAMINOPHEN 325 MG TABLET 650 MG FEED TUBE (09:11)
[2021-08-31 12:46] LABS: Glucose Point of Care 147 mg/dl (65-105)
--- NOTE | 2021-08-31 13:03 | PM.IMPN ---
Progress Note: A&P Assessment and Plan (1) Acute respiratory failure: Code(s): J96.00 - Acute respiratory failure, unspecified whether with hypoxia or hypercapnia Status: Acute Assessment and Plan: Acute Respiratory failure secondary to pneumonia which could be aspiration versus community-acquired +/- ARDS. 08/13 Patient was emergently intubated in ICU CTA chest 08/14 Extensive bilateral pneumonia, greatest in the left lower lobe but no PE. CT Chest 08/24 showing diffuse lung disease with overall improvement, consistent with resolving infection an/or pulmonary edema, Persistent near complete collapse of the left lower lobe and Scattered indeterminate pulmonary nodules which could reflect resolving infection with reacitve Mediastinal and bilateral hilar lymphadenopathy. Was having fevers 08/24: Consider atelectasis vs aspiration if ET tube was riding high. Abx started. Fever resolved. 08/25: Bronch with appropriate cultures sent and growing Klebsiella. 08/27: Patient extubated Reviewed 08/31 CXR: stable diffuse lung disease and stable small pleural effusion -- Wean O2 as tolerated -- stop Solu-Medrol. -- Continue Bronchodilators -- Continue CPT --antibiotics to end today -- Lasix IV x 1 (2) Septic shock: Code(s): A41.9 - Sepsis, unspecified organism; R65.21 - Severe sepsis with septic shock Status: Acute Assessment and Plan: Septic shock along with cardiogenic shock secondary to pneumonia and heart failure UA 08/13 not consistent with UTI Urine Legionella and pneumococcal antigen negative Blood cultures 08/13 negative. Sputum 08/16 negative. Patient has received adequate fluids resuscitation. OFF Levophed and vasopressin since 08/18 Likely cardiogenic shock given right sided dysfunction on echocardiogram secondary to STEMI treated with dobutamine (cardiology feels the dilated right ventricle is more chronic) OFF dobutamine since 08/17 as he went into AFib RVR, was given metoprolol but dropped his blood pressures; Amiodarone was started with conversion to sinus rhythm. Patient was on Levophed briefly but is currently off Weaned off stress dose steroids Finished 10 day course of abx with vancomycin and cefepime ending 08/23; Azithromycin dc'd 08/18 08/15: PICC line was inserted, femoral line was removed 08/18: Bilateral upper and lower extremity venous Dopplers were negative for DVT 08/24: Having fevers again and WBC was up to 25K concerning for infectious process. Culutres obtained and abx restarted. CT Sinus showing?mild sinus disease of the right maxillary, ethmoid and sphenoid sinuses. CT Chest as above. 08/24: Sputum Cx growing yeast. BCx NGTD. 08/25 Bronch with washings. Cx showing Klebsiella relatively pansensitive. -- Continue IV abx to complete 7 days that will end today --monitor closely off antibiotic (3) Pneumonia: Code(s): J18.9 - Pneumonia, unspecified organism Status: Acute Assessment and Plan: See above (4) Acute coronary syndrome: Code(s): I24.9 - Acute ischemic heart disease, unspecified Status: Acute Assessment and Plan: Patient had mildly elevated troponins on admission.? Changes noted on telemetry and EKG obtained showing ST elevation in the inferior leads consistent with STEMI.? Cardiology was consulted but STEMI team not activated due to the severity of the patient's condition at the time.? Aspirin was added.? Echocardiogram shows EF of 40-45%, posterior inferior segments are hypodynamic, severely enlarged right ventricle with reduced systolic RV function. Cardiology felt that the severely dilated right ventricle is chronic which could be related to pulmonary hypertension from chronic aspiration (PAP could not be evaluated). CTA chest negative for DVT and LE venous doppler negative for DVT.? Cardiology recommended medical management at this time with ischemic evaluation eventually once he is better. Telemetry showing brief runs of nonsustained V-tach. Con
[2021-08-31] MEDS: POTASSIUM CHLORIDE 20 MEQ PACKET (FOR LIQUID) FEED TUBE (13:47)
[2021-08-31] MEDS: FUROSEMIDE INJ 40 MG/4 ML VIAL 20 MG IV PUSH (13:47)
[2021-08-31 18:00] LABS: Glucose Point of Care 110 mg/dl (65-105)
[2021-08-31] MEDS: MELATONIN 5 MG TABLET FEED TUBE (20:27)
[2021-08-31 23:09] LABS: Glucose Point of Care 130 mg/dl (65-105)
[2021-09-01] VITALS (21 sets, daily range): BP systolic 127–136; BP diastolic 84–92; PULSE 82–99; RESP 19–23; TEMP 36.5–37.7; O2SAT 90–98
[2021-09-01] MEDS: IPRATROPIUM BR 0.02% INH SOLN 0.5 MG/2.5 ML VIAL INHALATION ×4 (02:05→21:49)
[2021-09-01] MEDS: ALBUTEROL SULFATE NEB 2.5 MG/3 ML INH INHALATION ×4 (02:05→21:50)
[2021-09-01 04:51] LABS: Hematocrit 29.9 % (42.0-52.0); Hemoglobin 9.6 g/dL (14.0-18.0); Mean Corpuscular HGB Conc 32.1 g/dl (32-36); Mean Corpuscular Hemoglobin 31.1 pg (26-34); Mean Corpuscular Volume 96.8 fl (80-100); Mean Platelet Volume 11.8 fl (7.4-10.4); Platelet Count Result 298 k/mm3 (150-375); Red Blood Count 3.09 M/mm3 (4.6-6.20); Red Cell Distribution Width 13.2 % (11.5-14.5); White Blood Count 8.6 K/mm3 (4.5-10.0)
[2021-09-01 05:03] LABS: Alanine Aminotransferase 42 U/L (6-50); Albumin Level 2.8 g/dL (3.5-5.1); Alkaline Phosphatase 70 U/L (38-126); Anion Gap 5 mmol/L (8-16); Aspartate Amino Transferase 29 U/L (17-59); Bilirubin,Total 0.5 mg/dL (0.2-1.3); Blood Urea Nitrogen 42 mg/dL (9-20); Calcium 7.9 mg/dL (8.4-10.2); Carbon Dioxide 28 mmol/L (22-30); Chloride 108 mmol/L (98-107); Estimated CRCL calculation 110 ml/min; Estimated Glomerular Filt Rate > 60; Glucose 94 mg/dL (65-110); Magnesium 1.9 mg/dL (1.6-2.3); Phosphorus 2.7 mg/dL (2.5-4.5); Potassium 3.4 mmol/L (3.4-5.0); Sodium 141 mmol/L (137-145)
[2021-09-01] MEDS: LEVOTHYROXINE SODIUM 25 MCG TABLET FEED TUBE (06:14)
[2021-09-01] MEDS: CENTRAL LINE FLUSH 10 ML IV PUSH ×3 (06:14→21:12)
[2021-09-01] MEDS: ASPIRIN 325 MG TABLET PO (09:20)
[2021-09-01] MEDS: METOPROLOL TARTRATE 12.5 MG TABLET FEED TUBE ×2 (09:20→21:12)
[2021-09-01] MEDS: ATORVASTATIN 40 MG TABLET FEED TUBE (09:21)
[2021-09-01] MEDS: FONDAPARINUX SODIUM 2.5 MG/0.5 ML SYRINGE SUB-Q (09:21)
[2021-09-01] MEDS: PANTOPRAZOLE SODIUM IV 40 MG VIAL IV PUSH (09:21)
--- NOTE | 2021-09-01 10:18 | PCNFU ---
Nutrition Follow-Up Complete: Increased protein needs as related to wounds as evidenced by Deep Tissue Pressure injury reported. Goal: Meet estimated nutritional needs. Pt is meeting goal. Continue with current goal. Pt current nutrition is Jevity 1.5 @ 70ml/hr, KATIE BID. Nutrition recommendation: Continue with current plan of care Last recorded weight is 82.6 kg - up from 78.4kg on admit. Bowel Motility: +BM 08/31 - diarrhea Labs Reviewed: Hgb: 9.6, HCT:29.9, Alb:2.8, BUN: 42, Cr:0.6, Glu:130 Meds Noted: lipitor, atrovent, synthroid, dulcolax, protonix, novolog. Skin: Deep tissue pressure injury Additional Notes: Pt with PEG, formula changed to Jevity 1.5 at 70ml/hr to provide 2310kcals, 98g protein, 1170ml free water. Free water flushes now 200ml q 4 hrs, noted NA WNL at this time. Tube feeding is meeting 100% of estimated needs. Pt tolerating well. KATIE BID for wound healing, providing an additional 90kcals, 2.5g protein. Agree with diet orders. Will monitor every Saturday and Saturday.
[2021-09-01 11:52] LABS: Glucose Point of Care 116 mg/dl (65-105)
--- NOTE | 2021-09-01 13:15 | PM.IMPN ---
Progress Note: A&P Assessment and Plan (1) Acute respiratory failure: Code(s): J96.00 - Acute respiratory failure, unspecified whether with hypoxia or hypercapnia Status: Acute Assessment and Plan: Acute Respiratory failure secondary to pneumonia which could be aspiration versus community-acquired +/- ARDS. 08/13 Patient was emergently intubated in ICU CTA chest 08/14 Extensive bilateral pneumonia, greatest in the left lower lobe but no PE. CT Chest 08/24 showing diffuse lung disease with overall improvement, consistent with resolving infection an/or pulmonary edema, Persistent near complete collapse of the left lower lobe and Scattered indeterminate pulmonary nodules which could reflect resolving infection with reacitve Mediastinal and bilateral hilar lymphadenopathy. Was having fevers 08/24: Consider atelectasis vs aspiration if ET tube was riding high. Abx started. Fever resolved. 08/25: Bronch with appropriate cultures sent and growing Klebsiella. 08/27: Patient extubated Reviewed 08/31 CXR: stable diffuse lung disease and stable small pleural effusion -- Wean O2 as tolerated -- stop Solu-Medrol. -- Continue Bronchodilators -- Continue CPT --antibiotics to end today -- Lasix IV x 1 -09/01/21 had long discussion with family regarding discharge planning as noted in subjective portion of note. Discussed patient with Care Coordination who will give the family a list of facilities for LTAC placement. N-acetylcysteine started to help with secretions. Will order AM CXR. (2) Septic shock: Code(s): A41.9 - Sepsis, unspecified organism; R65.21 - Severe sepsis with septic shock Status: Acute Assessment and Plan: Septic shock along with cardiogenic shock secondary to pneumonia and heart failure UA 08/13 not consistent with UTI Urine Legionella and pneumococcal antigen negative Blood cultures 08/13 negative. Sputum 08/16 negative. Patient has received adequate fluids resuscitation. OFF Levophed and vasopressin since 08/18 Likely cardiogenic shock given right sided dysfunction on echocardiogram secondary to STEMI treated with dobutamine (cardiology feels the dilated right ventricle is more chronic) OFF dobutamine since 08/17 as he went into AFib RVR, was given metoprolol but dropped his blood pressures; Amiodarone was started with conversion to sinus rhythm. Patient was on Levophed briefly but is currently off Weaned off stress dose steroids Finished 10 day course of abx with vancomycin and cefepime ending 08/23; Azithromycin dc'd 08/18 08/15: PICC line was inserted, femoral line was removed 08/18: Bilateral upper and lower extremity venous Dopplers were negative for DVT 08/24: Having fevers again and WBC was up to 25K concerning for infectious process. Culutres obtained and abx restarted. CT Sinus showing?mild sinus disease of the right maxillary, ethmoid and sphenoid sinuses. CT Chest as above. 08/24: Sputum Cx growing yeast. BCx NGTD. 08/25 Bronch with washings. Cx showing Klebsiella relatively pansensitive. -- Continue IV abx to complete 7 days that will end today --monitor closely off antibiotic (3) Pneumonia: Code(s): J18.9 - Pneumonia, unspecified organism Status: Acute Assessment and Plan: See above (4) Acute coronary syndrome: Code(s): I24.9 - Acute ischemic heart disease, unspecified Status: Acute Assessment and Plan: Patient had mildly elevated troponins on admission.? Changes noted on telemetry and EKG obtained showing ST elevation in the inferior leads consistent with STEMI.? Cardiology was consulted but STEMI team not activated due to the severity of the patient's condition at the time.? Aspirin was added.? Echocardiogram shows EF of 40-45%, posterior inferior segments are hypodynamic, severely enlarged right ventricle with reduced systolic RV function. Cardiology felt that the severely dilated right ventricle is chronic which could be related to pulmonary hypertensio
[2021-09-01] MEDS: ACETYLCYSTEINE 20% INHAL SOLN 800 MG/4 ML VIAL 200 MG INHALATION ×2 (15:03→21:51)
--- NOTE | 2021-09-01 18:23 | PC.NURSE ---
This patient, Mal Akhtar, was transferred to [facility] on 09/01/21 at 1810. Personal belongings sent with patient. Report given to Ann SRIVASTAVA. Appropriate documentation sent with patient.
[2021-09-01] MEDS: ACETAMINOPHEN 325 MG TABLET 650 MG FEED TUBE (21:11)
[2021-09-01] MEDS: MELATONIN 5 MG TABLET FEED TUBE (21:12)
[2021-09-01 23:52] LABS: Glucose Point of Care 123 mg/dl (65-105)
[2021-09-02] VITALS (21 sets, daily range): BP systolic 101–144; BP diastolic 67–76; PULSE 75–103; RESP 20–24; TEMP 36.5–37.2; O2SAT 90–96
[2021-09-02] MEDS: ACETYLCYSTEINE 20% INHAL SOLN 800 MG/4 ML VIAL 200 MG INHALATION ×3 (03:25→20:15)
[2021-09-02] MEDS: IPRATROPIUM BR 0.02% INH SOLN 0.5 MG/2.5 ML VIAL INHALATION ×4 (03:26→20:15)
[2021-09-02] MEDS: ALBUTEROL SULFATE NEB 2.5 MG/3 ML INH INHALATION ×4 (03:26→20:14)
[2021-09-02 05:34] LABS: Hematocrit 31.7 % (42.0-52.0); Hemoglobin 10.1 g/dL (14.0-18.0); Mean Corpuscular HGB Conc 31.9 g/dl (32-36); Mean Corpuscular Hemoglobin 31.2 pg (26-34); Mean Corpuscular Volume 97.8 fl (80-100); Mean Platelet Volume 11.8 fl (7.4-10.4); Platelet Count Result 301 k/mm3 (150-375); Red Blood Count 3.24 M/mm3 (4.6-6.20); Red Cell Distribution Width 13.4 % (11.5-14.5)
[2021-09-02] MEDS: CENTRAL LINE FLUSH 10 ML IV PUSH ×3 (05:41→21:11)
[2021-09-02] MEDS: CENTRAL LINE FLUSH 20 ML IV PUSH (05:42)
[2021-09-02] MEDS: LEVOTHYROXINE SODIUM 25 MCG TABLET FEED TUBE (05:42)
[2021-09-02 05:59] LABS: Alanine Aminotransferase 34 U/L (6-50); Alkaline Phosphatase 73 U/L (38-126); Anion Gap 5 mmol/L (8-16); Aspartate Amino Transferase 20 U/L (17-59); Bilirubin,Total 0.3 mg/dL (0.2-1.3); Blood Urea Nitrogen 37 mg/dL (9-20); Carbon Dioxide 27 mmol/L (22-30); Chloride 107 mmol/L (98-107); Estimated CRCL calculation 129 ml/min; Estimated Glomerular Filt Rate > 60; Glucose 144 mg/dL (65-110); Magnesium 1.8 mg/dL (1.6-2.3); Potassium 3.5 mmol/L (3.4-5.0); Sodium 139 mmol/L (137-145)
[2021-09-02 06:00] LABS: Glucose Point of Care 188 mg/dl (65-105)
--- NOTE | 2021-09-02 07:15 | PM.IMPN ---
Progress Note: A&P Assessment and Plan (1) Acute respiratory failure: Code(s): J96.00 - Acute respiratory failure, unspecified whether with hypoxia or hypercapnia Status: Acute Assessment and Plan: Acute Respiratory failure secondary to pneumonia which could be aspiration versus community-acquired +/- ARDS. 08/13 Patient was emergently intubated in ICU CTA chest 08/14 Extensive bilateral pneumonia, greatest in the left lower lobe but no PE. CT Chest 08/24 showing diffuse lung disease with overall improvement, consistent with resolving infection an/or pulmonary edema, Persistent near complete collapse of the left lower lobe and Scattered indeterminate pulmonary nodules which could reflect resolving infection with reacitve Mediastinal and bilateral hilar lymphadenopathy. Was having fevers 08/24: Consider atelectasis vs aspiration if ET tube was riding high. Abx started. Fever resolved. 08/25: Bronch with appropriate cultures sent and growing Klebsiella. 08/27: Patient extubated Reviewed 08/31 CXR: stable diffuse lung disease and stable small pleural effusion -- Wean O2 as tolerated -- stop Solu-Medrol. -- Continue Bronchodilators -- Continue CPT --antibiotics to end today -- Lasix IV x 1 -09/01/21 had long discussion with family regarding discharge planning as noted in subjective portion of note. Discussed patient with Care Coordination who will give the family a list of facilities for LTAC placement. N-acetylcysteine started to help with secretions. Will order AM CXR. -09/02/21 CXR improved and lung exam improved this morning. Ordered PEP therapy - acapella to help with secretion clearance. Will continue n-acetylcysteine Q6H. Will work to wean oxygen as tolerated. Again discussed discharge to rehab facility with patient this morning on rounds. Discussed patient with care coordination who reports the family does not want patient to go to LTAC. At this point, it would be unsafe for the patient to return home but the family seems unwilling to pick a facility. (2) Septic shock: Code(s): A41.9 - Sepsis, unspecified organism; R65.21 - Severe sepsis with septic shock Status: Acute Assessment and Plan: Septic shock along with cardiogenic shock secondary to pneumonia and heart failure UA 08/13 not consistent with UTI Urine Legionella and pneumococcal antigen negative Blood cultures 08/13 negative. Sputum 08/16 negative. Patient has received adequate fluids resuscitation. OFF Levophed and vasopressin since 08/18 Likely cardiogenic shock given right sided dysfunction on echocardiogram secondary to STEMI treated with dobutamine (cardiology feels the dilated right ventricle is more chronic) OFF dobutamine since 08/17 as he went into AFib RVR, was given metoprolol but dropped his blood pressures; Amiodarone was started with conversion to sinus rhythm. Patient was on Levophed briefly but is currently off Weaned off stress dose steroids Finished 10 day course of abx with vancomycin and cefepime ending 08/23; Azithromycin dc'd 08/18 08/15: PICC line was inserted, femoral line was removed 08/18: Bilateral upper and lower extremity venous Dopplers were negative for DVT 08/24: Having fevers again and WBC was up to 25K concerning for infectious process. Culutres obtained and abx restarted. CT Sinus showing?mild sinus disease of the right maxillary, ethmoid and sphenoid sinuses. CT Chest as above. 08/24: Sputum Cx growing yeast. BCx NGTD. 08/25 Bronch with washings. Cx showing Klebsiella relatively pansensitive. -- Continue IV abx to complete 7 days that will end today --monitor closely off antibiotic (3) Pneumonia: Code(s): J18.9 - Pneumonia, unspecified organism Status: Acute Assessment and Plan: S/p treatment for pneumonia with 10 days of vancomycin. Azithromycin discontinued on 08/18. Patient lung exam improve but due to global weakness has some difficulty clearing secretions. -N-acetylcysteine q6h -Acapella
[2021-09-02] MEDS: FONDAPARINUX SODIUM 2.5 MG/0.5 ML SYRINGE SUB-Q (08:41)
[2021-09-02] MEDS: ATORVASTATIN 40 MG TABLET FEED TUBE (08:41)
[2021-09-02] MEDS: DOCUSATE SODIUM LIQ 100 MG/10 ML UDC PO (08:41)
[2021-09-02] MEDS: POTASSIUM CHLORIDE 20 MEQ PACKET (FOR LIQUID) 40 MEQ PO (08:41)
[2021-09-02] MEDS: METOPROLOL TARTRATE 12.5 MG TABLET FEED TUBE ×2 (08:42→20:05)
[2021-09-02 12:15] LABS: Glucose Point of Care 138 mg/dl (65-105)
--- NOTE | 2021-09-02 13:22 | PCPTNOTE ---
Attempted to see patient for Physical Therapy session; patient declined stating he is very tired and was trying to take a nap.
[2021-09-02] MEDS: FAMOTIDINE 20 MG TABLET FEED TUBE ×2 (13:52→20:05)
[2021-09-02] MEDS: LANSOPRAZOLE ORAL SUSP 30 MG/10 ML ORAL.SUSP FEED TUBE (13:52)
[2021-09-02] MEDS: DOCUSATE SODIUM LIQ 100 MG/10 ML UDC FEED TUBE ×2 (13:52→20:06)
[2021-09-02 18:28] LABS: Glucose Point of Care 145 mg/dl (65-105)
[2021-09-02] MEDS: MELATONIN 5 MG TABLET FEED TUBE (20:05)
[2021-09-02 23:36] LABS: Glucose Point of Care 139 mg/dl (65-105)
[2021-09-03] VITALS (17 sets, daily range): BP systolic 117–150; BP diastolic 71–92; PULSE 81–100; RESP 18–26; TEMP 36.5–36.7; O2SAT 93–99
[2021-09-03] MEDS: ALBUTEROL SULFATE NEB 2.5 MG/3 ML INH INHALATION ×4 (02:51→20:00)
[2021-09-03] MEDS: IPRATROPIUM BR 0.02% INH SOLN 0.5 MG/2.5 ML VIAL INHALATION ×4 (02:51→20:00)
[2021-09-03] MEDS: ACETYLCYSTEINE 20% INHAL SOLN 800 MG/4 ML VIAL 200 MG INHALATION ×4 (02:52→20:00)
[2021-09-03] MEDS: LANSOPRAZOLE ORAL SUSP 30 MG/10 ML ORAL.SUSP FEED TUBE (05:32)
[2021-09-03] MEDS: LEVOTHYROXINE SODIUM 25 MCG TABLET FEED TUBE (05:32)
[2021-09-03] MEDS: CENTRAL LINE FLUSH 10 ML IV PUSH ×3 (05:32→20:58)
[2021-09-03] MEDS: CENTRAL LINE FLUSH 20 ML IV PUSH (05:33)
[2021-09-03 05:51] LABS: Hematocrit 29.4 % (42.0-52.0); Hemoglobin 9.5 g/dL (14.0-18.0); Mean Corpuscular HGB Conc 32.3 g/dl (32-36); Mean Corpuscular Hemoglobin 31.6 pg (26-34); Mean Corpuscular Volume 97.7 fl (80-100); Mean Platelet Volume 11.6 fl (7.4-10.4); Platelet Count Result 250 k/mm3 (150-375); Red Blood Count 3.01 M/mm3 (4.6-6.20); Red Cell Distribution Width 13.4 % (11.5-14.5); White Blood Count 9.4 K/mm3 (4.5-10.0)
[2021-09-03 06:03] LABS: Alanine Aminotransferase 27 U/L (6-50); Albumin Level 2.7 g/dL (3.5-5.1); Alkaline Phosphatase 72 U/L (38-126); Anion Gap 2 mmol/L (8-16); Aspartate Amino Transferase 19 U/L (17-59); Bilirubin,Total 0.4 mg/dL (0.2-1.3); Blood Urea Nitrogen 29 mg/dL (9-20); Calcium 7.7 mg/dL (8.4-10.2); Carbon Dioxide 29 mmol/L (22-30); Chloride 104 mmol/L (98-107); Estimated CRCL calculation 129 ml/min; Estimated Glomerular Filt Rate > 60; Glucose 127 mg/dL (65-110); Magnesium 1.7 mg/dL (1.6-2.3); Potassium 3.8 mmol/L (3.4-5.0); Sodium 135 mmol/L (137-145)
[2021-09-03 06:11] LABS: Glucose Point of Care 139 mg/dl (65-105)
[2021-09-03 06:12] LABS: NT Pro B Type Natriuretic Pept 1730 pg/mL (5-100)
[2021-09-03 06:32] LABS: Procalcitonin 0.2 ng/mL
--- NOTE | 2021-09-03 07:40 | PM.IMPN ---
Progress Note: A&P Assessment and Plan (1) Acute respiratory failure: Code(s): J96.00 - Acute respiratory failure, unspecified whether with hypoxia or hypercapnia Status: Acute Assessment and Plan: Acute Respiratory failure secondary to pneumonia which could be aspiration versus community-acquired +/- ARDS. 08/13 Patient was emergently intubated in ICU CTA chest 08/14 Extensive bilateral pneumonia, greatest in the left lower lobe but no PE. CT Chest 08/24 showing diffuse lung disease with overall improvement, consistent with resolving infection an/or pulmonary edema, Persistent near complete collapse of the left lower lobe and Scattered indeterminate pulmonary nodules which could reflect resolving infection with reacitve Mediastinal and bilateral hilar lymphadenopathy. Was having fevers 08/24: Consider atelectasis vs aspiration if ET tube was riding high. Abx started. Fever resolved. 08/25: Bronch with appropriate cultures sent and growing Klebsiella. 08/27: Patient extubated Reviewed 08/31 CXR: stable diffuse lung disease and stable small pleural effusion -- Wean O2 as tolerated -- stop Solu-Medrol. -- Continue Bronchodilators -- Continue CPT --antibiotics to end today -- Lasix IV x 1 -09/01/21 had long discussion with family regarding discharge planning as noted in subjective portion of note. Discussed patient with Care Coordination who will give the family a list of facilities for LTAC placement. N-acetylcysteine started to help with secretions. Will order AM CXR. -09/02/21 CXR improved and lung exam improved this morning. Ordered PEP therapy - acapella to help with secretion clearance. Will continue n-acetylcysteine Q6H. Will work to wean oxygen as tolerated. Again discussed discharge to rehab facility with patient this morning on rounds. Discussed patient with care coordination who reports the family does not want patient to go to LTAC. At this point, it would be unsafe for the patient to return home but the family seems unwilling to pick a facility. -09/03/21 Patient improving with pulmonary toilet. Will continue this and wean oxygen as tolerated. [facility] but discharge will be held until after a trial of enoxaparin to see if patient platelets decrease. (2) Septic shock: Code(s): A41.9 - Sepsis, unspecified organism; R65.21 - Severe sepsis with septic shock Status: Acute Assessment and Plan: Septic shock along with cardiogenic shock secondary to pneumonia and heart failure UA 08/13 not consistent with UTI Urine Legionella and pneumococcal antigen negative Blood cultures 08/13 negative. Sputum 08/16 negative. Patient has received adequate fluids resuscitation. OFF Levophed and vasopressin since 08/18 Likely cardiogenic shock given right sided dysfunction on echocardiogram secondary to STEMI treated with dobutamine (cardiology feels the dilated right ventricle is more chronic) OFF dobutamine since 08/17 as he went into AFib RVR, was given metoprolol but dropped his blood pressures; Amiodarone was started with conversion to sinus rhythm. Patient was on Levophed briefly but is currently off Weaned off stress dose steroids Finished 10 day course of abx with vancomycin and cefepime ending 08/23; Azithromycin dc'd 08/18 08/15: PICC line was inserted, femoral line was removed 08/18: Bilateral upper and lower extremity venous Dopplers were negative for DVT 08/24: Having fevers again and WBC was up to 25K concerning for infectious process. Culutres obtained and abx restarted. CT Sinus showing?mild sinus disease of the right maxillary, ethmoid and sphenoid sinuses. CT Chest as above. 08/24: Sputum Cx growing yeast. BCx NGTD. 08/25 Bronch with washings. Cx showing Klebsiella relatively pansensitive. -- Continue IV abx to complete 7 days that will end today --monitor closely off antibiotic (3) Pneumonia: Code(s): J18.9 - Pneumonia, unspecified organism Status: Acute
[2021-09-03] MEDS: FAMOTIDINE 20 MG TABLET FEED TUBE ×2 (08:43→20:44)
[2021-09-03] MEDS: METOPROLOL TARTRATE 12.5 MG TABLET FEED TUBE ×2 (08:43→20:44)
[2021-09-03] MEDS: DOCUSATE SODIUM LIQ 100 MG/10 ML UDC FEED TUBE ×2 (08:43→20:44)
[2021-09-03] MEDS: POTASSIUM CHLORIDE 20 MEQ PACKET (FOR LIQUID) 40 MEQ FEED TUBE (08:44)
[2021-09-03] MEDS: ASPIRIN 325 MG TABLET FEED TUBE (08:44)
[2021-09-03] MEDS: ATORVASTATIN 40 MG TABLET FEED TUBE (08:44)
[2021-09-03] MEDS: FONDAPARINUX SODIUM 2.5 MG/0.5 ML SYRINGE SUB-Q (08:44)
[2021-09-03 11:49] LABS: Glucose Point of Care 153 mg/dl (65-105)
--- NOTE | 2021-09-03 14:36 | PM.PNPUL ---
Progress Note: A&P Assessment and Plan (1) Acute respiratory failure: Code(s): J96.00 - Acute respiratory failure, unspecified whether with hypoxia or hypercapnia Status: Acute Assessment and Plan: He is recovery from acute respiratory failure with underlying chronic aspiration Extubated 08/27/[address] Rodríguez after 2 + weeks on the ventilator He grew Klebsiella on his bronch BAL August 25, treated with Zosyn x 7 days Now down to 2 L/min. . He is on tube feedings as he has chronic aspiration. PLAN: 09/03/2021 Add Cornet valve to help clear secretions, increase activity; he wants to be up in a chair. Even sitting in a chair is a form of exercise. History : was emergently 08/13/2021; has had persistent pneumonia; broncho August 25, extubated August 27. Has persistent infiltrates, clinically better, down to 2 L/min. He has getting therpay, however has only been up to the side of the bed, has been able to stand with help but not bear all his own weight yet. He has a history of a trach 2018, did not need a vent, just an airway after this throat surgeries, trach lasted 6 months. 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 This is a chronic condition as severe RV dysfunction is usually not a sudden event. RVSP is not reported. He likely has severe pulmonary hypertension. It is not clear what caused this. He has decreased LV systolic function EF 40% which is better than the RV function. His RV problems are out of proportion to his LV problems. He has no history of PE, no underlying lung disease, no documented sleep issue which would only cause mild pulmonary hypertension. He has no known autoimmune condition. 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 (2) Pneumonia: Code(s): J18.9 - Pneumonia, unspecified organism Status: Acute Assessment and Plan: This patient came in with aspiration pneumonia, did not grow out any organisms initially, was negative for COVID, Legionella, and Strep pneumococcus. Infiltrates increased in the Left base, by chest CT 08/24/2021. August 25 with BAL, copious white mucoid secretions in both bases. Grew Klebsiella light growth, had 7 days Zosyn. Has bilateral infiltrates, improved. Subjective Date/time seen: 09/03/21 14:36 Interval history: Room 302 Hospital follow up?: Mal Akhtar is a 66 yo man extubated August 27 after 2 weeks on the vent after 08/13/21 admission for aspiration pneumonia, septic shock followed by acute inferior [place], treated with vancomycin, cefepime and azithromycin. ?Shock resolved, and he was bronch'd on SaturdayAugust 25 with large amount of white secretions suctioned. These grew?Klebsiella, and he was able to be extubated August 27.? His O2 need has decreased now at 2 L/min. His Haylee is at the bedside. She says that he may be go rehab at [facility], other locations. She would prefer not to have to drive to [facility]. He is not able to perform 3 hours a day, so that [facility] . Review of Systems Review of Systems: All systems reviewed & are unremarkable except as noted in HPI and below Exam Narrative: GEN: ? Alert, oriented, on nasal cannula, voice is moist with the sound of secretions in the airway HEENT: pupils are equal, EOMI, symmetrical face; oral membranes moist NECK:? Trachea is midline CHEST:? Equal air entry, symmetric excursion, coarse rhonchi. CV:? ? Regular S1S2 no m/g/r ABD : (+) bowel sounds Extremities : no clubbing, cyanosis; he has trace dependent edema, left arm PIC; PSYCH:? normal thought, wants to get up to a chair ? Objective Data Vital Signs Vital Signs: Vital Sig
[2021-09-03 18:23] LABS: Glucose Point of Care 112 mg/dl (65-105)
[2021-09-03] MEDS: MELATONIN 5 MG TABLET FEED TUBE (20:44)
[2021-09-03 23:45] LABS: Glucose Point of Care 138 mg/dl (65-105)
[2021-09-04] VITALS (20 sets, daily range): BP systolic 117–135; BP diastolic 69–82; PULSE 86–102; RESP 18–24; TEMP 36.8–37.1; O2SAT 89–96
[2021-09-04] MEDS: IPRATROPIUM BR 0.02% INH SOLN 0.5 MG/2.5 ML VIAL INHALATION ×4 (02:54→20:01)
[2021-09-04] MEDS: ALBUTEROL SULFATE NEB 2.5 MG/3 ML INH INHALATION ×4 (02:54→20:02)
[2021-09-04] MEDS: ACETYLCYSTEINE 20% INHAL SOLN 800 MG/4 ML VIAL 200 MG INHALATION ×4 (02:55→20:03)
[2021-09-04] MEDS: CENTRAL LINE FLUSH 10 ML IV PUSH ×3 (05:37→21:28)
[2021-09-04] MEDS: LEVOTHYROXINE SODIUM 25 MCG TABLET FEED TUBE (05:37)
[2021-09-04] MEDS: LANSOPRAZOLE ORAL SUSP 30 MG/10 ML ORAL.SUSP FEED TUBE (05:39)
[2021-09-04 06:13] LABS: Basophils Percent Auto 0.2 % (0.2-1.2); Eosinophils Absolute Auto 0.3 K/mm3 (0-0.3); Eosinophils Percent Auto 2.6 % (0-4.4); Hematocrit 30.5 % (42.0-52.0); Hemoglobin 9.8 g/dL (14.0-18.0); Immature Granulocyte Absolute 0.05 K/mm3 (0.00-0.031); Immature Granulocyte Percent A 0.4 % (0-0.5); Lymphocytes Absolute Auto 0.26 K/mm3 (0.9-3.2); Lymphocytes Percent Auto 2.2 % (18.3-44.2); Mean Corpuscular HGB Conc 32.1 g/dl (32-36); Mean Corpuscular Hemoglobin 31.3 pg (26-34); Mean Corpuscular Volume 97.4 fl (80-100); Monocytes Absolute Auto 0.5 K/mm3 (0.1-0.6); Monocytes Percent Auto 4.5 % (2.6-8.5); Neutrophils Absolute Auto 10.7 K/mm3 (1.3-6.7); Neutrophils Percent Auto 90.1 % (45.5-73.1); Platelet Count Result 241 k/mm3 (150-375); Red Blood Count 3.13 M/mm3 (4.6-6.20); Red Cell Distribution Width 13.2 % (11.5-14.5); White Blood Count 11.9 K/mm3 (4.5-10.0)
[2021-09-04 06:18] LABS: Anion Gap 6 mmol/L (8-16); Blood Urea Nitrogen 27 mg/dL (9-20); Calcium 7.8 mg/dL (8.4-10.2); Carbon Dioxide 27 mmol/L (22-30); Chloride 100 mmol/L (98-107); Estimated CRCL calculation 129 ml/min; Estimated Glomerular Filt Rate > 60; Glucose 134 mg/dL (65-110); Potassium 3.9 mmol/L (3.4-5.0); Sodium 133 mmol/L (137-145)
[2021-09-04 06:32] LABS: Glucose Point of Care 157 mg/dl (65-105)
--- NOTE | 2021-09-04 07:24 | PM.IMPN ---
Progress Note: A&P Assessment and Plan (1) Acute respiratory failure: Code(s): J96.00 - Acute respiratory failure, unspecified whether with hypoxia or hypercapnia Status: Acute Assessment and Plan: Acute Respiratory failure secondary to pneumonia which could be aspiration versus community-acquired +/- ARDS. 08/13 Patient was emergently intubated in ICU CTA chest 08/14 Extensive bilateral pneumonia, greatest in the left lower lobe but no PE. CT Chest 08/24 showing diffuse lung disease with overall improvement, consistent with resolving infection an/or pulmonary edema, Persistent near complete collapse of the left lower lobe and Scattered indeterminate pulmonary nodules which could reflect resolving infection with reacitve Mediastinal and bilateral hilar lymphadenopathy. Was having fevers 08/24: Consider atelectasis vs aspiration if ET tube was riding high. Abx started. Fever resolved. 08/25: Bronch with appropriate cultures sent and growing Klebsiella. 08/27: Patient extubated Reviewed 08/31 CXR: stable diffuse lung disease and stable small pleural effusion -- Wean O2 as tolerated -- stop Solu-Medrol. -- Continue Bronchodilators -- Continue CPT --antibiotics to end today -- Lasix IV x 1 -09/01/21 had long discussion with family regarding discharge planning as noted in subjective portion of note. Discussed patient with Care Coordination who will give the family a list of facilities for LTAC placement. N-acetylcysteine started to help with secretions. Will order AM CXR. -09/02/21 CXR improved and lung exam improved this morning. Ordered PEP therapy - acapella to help with secretion clearance. Will continue n-acetylcysteine Q6H. Will work to wean oxygen as tolerated. Again discussed discharge to rehab facility with patient this morning on rounds. Discussed patient with care coordination who reports the family does not want patient to go to LTAC. At this point, it would be unsafe for the patient to return home but the family seems unwilling to pick a facility. -09/03/21 Patient improving with pulmonary toilet. Will continue this and wean oxygen as tolerated. Patient has been accepted to [facility] but discharge will be held until after a trial of enoxaparin to see if patient platelets decrease. -09/04/21 Patient continues to improve. Discussion with as noted in subjective. Patient will be discharged to [facility] tomorrow if platelets do not drop with enoxaparin. (2) Septic shock: Code(s): A41.9 - Sepsis, unspecified organism; R65.21 - Severe sepsis with septic shock Status: Acute Assessment and Plan: Septic shock along with cardiogenic shock secondary to pneumonia and heart failure UA 08/13 not consistent with UTI Urine Legionella and pneumococcal antigen negative Blood cultures 08/13 negative. Sputum 08/16 negative. Patient has received adequate fluids resuscitation. OFF Levophed and vasopressin since 08/18 Likely cardiogenic shock given right sided dysfunction on echocardiogram secondary to STEMI treated with dobutamine (cardiology feels the dilated right ventricle is more chronic) OFF dobutamine since 08/17 as he went into AFib RVR, was given metoprolol but dropped his blood pressures; Amiodarone was started with conversion to sinus rhythm. Patient was on Levophed briefly but is currently off Weaned off stress dose steroids Finished 10 day course of abx with vancomycin and cefepime ending 08/23; Azithromycin dc'd 08/18 08/15: PICC line was inserted, femoral line was removed 08/18: Bilateral upper and lower extremity venous Dopplers were negative for DVT 08/24: Having fevers again and WBC was up to 25K concerning for infectious process. Culutres obtained and abx restarted. CT Sinus showing?mild sinus disease of the right maxillary, ethmoid and sphenoid sinuses. CT Chest as above. 08/24: Sputum Cx growing yeast. BCx NGTD. 08/25 Bronch with washings. Cx showing Klebsiella relatively panse
[2021-09-04 07:52] LABS: Glucose Point of Care 129 mg/dl (65-105)
[2021-09-04] MEDS: ENOXAPARIN 40 MG/0.4 ML SYRINGE SUB-Q (09:16)
[2021-09-04] MEDS: ASPIRIN 325 MG TABLET FEED TUBE (09:17)
[2021-09-04] MEDS: ATORVASTATIN 40 MG TABLET FEED TUBE (09:17)
[2021-09-04] MEDS: DOCUSATE SODIUM LIQ 100 MG/10 ML UDC FEED TUBE ×2 (09:17→20:28)
[2021-09-04] MEDS: METOPROLOL TARTRATE 12.5 MG TABLET FEED TUBE ×2 (09:17→20:28)
[2021-09-04] MEDS: CALCIUM CARBONATE (TUMS) 500 MG (200 MG ELEMENTAL) FEED TUBE ×3 (09:17→20:29)
[2021-09-04] MEDS: FAMOTIDINE 20 MG TABLET FEED TUBE ×2 (09:17→20:29)
[2021-09-04 11:38] LABS: Glucose Point of Care 146 mg/dl (65-105)
[2021-09-04] MEDS: ALTEPLASE 2 MG VIAL (CATHFLO) IV PUSH (12:31)
[2021-09-04] MEDS: ONDANSETRON INJ 4 MG/2 ML VIAL ×2 (15:51→18:47)
[2021-09-04 18:56] LABS: Anion Gap 2 mmol/L (8-16); Blood Urea Nitrogen 25 mg/dL (9-20); Calcium 7.7 mg/dL (8.4-10.2); Carbon Dioxide 31 mmol/L (22-30); Chloride 99 mmol/L (98-107); Estimated CRCL calculation 129 ml/min; Estimated Glomerular Filt Rate > 60; Glucose 101 mg/dL (65-110); Magnesium 1.7 mg/dL (1.6-2.3); Phosphorus 3.1 mg/dL (2.5-4.5); Potassium 3.9 mmol/L (3.4-5.0); Sodium 132 mmol/L (137-145)
[2021-09-04] MEDS: MELATONIN 5 MG TABLET FEED TUBE (20:28)
[2021-09-04] MEDS: ONDANSETRON INJ 4 MG/2 ML VIAL IV PUSH (20:47)
[2021-09-04 23:14] LABS: Glucose Point of Care 102 mg/dl (65-105)
[2021-09-05] VITALS (15 sets, daily range): BP systolic 101–150; BP diastolic 63–95; PULSE 86–96; RESP 18–24; TEMP 36.7–37.2; O2SAT 91–100
[2021-09-05] MEDS: CALCIUM CARBONATE (TUMS) 500 MG (200 MG ELEMENTAL) FEED TUBE (01:14)
[2021-09-05] MEDS: IPRATROPIUM BR 0.02% INH SOLN 0.5 MG/2.5 ML VIAL INHALATION ×3 (01:56→14:20)
[2021-09-05] MEDS: ALBUTEROL SULFATE NEB 2.5 MG/3 ML INH INHALATION ×3 (01:56→14:20)
[2021-09-05] MEDS: ACETYLCYSTEINE 20% INHAL SOLN 800 MG/4 ML VIAL 200 MG INHALATION (01:56)
[2021-09-05] MEDS: ONDANSETRON INJ 4 MG/2 ML VIAL IV PUSH (02:31)
--- NOTE | 2021-09-05 02:39 | PC.NURSE ---
09/05/21 0230 pt having emesis medicated with ordered zofran.
[2021-09-05] MEDS: CENTRAL LINE FLUSH 10 ML IV PUSH ×2 (05:42→14:01)
[2021-09-05] MEDS: LEVOTHYROXINE SODIUM 25 MCG TABLET FEED TUBE (05:42)
[2021-09-05 05:48] LABS: Glucose Point of Care 146 mg/dl (65-105)
[2021-09-05] MEDS: LANSOPRAZOLE ORAL SUSP 30 MG/10 ML ORAL.SUSP FEED TUBE (05:49)
--- NOTE | 2021-09-05 07:16 | PM.DS ---
DS: Admitting Diagnosis Discharge Date 09/05/21 Admitting Diagnosis Aspiration pneumonia, hypotension DS: Discharge Diagnosis Discharge Diagnosis (1) Acute respiratory failure: Code(s): J96.00 - Acute respiratory failure, unspecified whether with hypoxia or hypercapnia Status: Acute Assessment and Plan: Acute Respiratory failure secondary to pneumonia which could be aspiration versus community-acquired +/- ARDS. 08/13 Patient was emergently intubated in ICU CTA chest 08/14 Extensive bilateral pneumonia, greatest in the left lower lobe but no PE. CT Chest 08/24 showing diffuse lung disease with overall improvement, consistent with resolving infection an/or pulmonary edema, Persistent near complete collapse of the left lower lobe and Scattered indeterminate pulmonary nodules which could reflect resolving infection with reacitve Mediastinal and bilateral hilar lymphadenopathy. Was having fevers 08/24: Consider atelectasis vs aspiration if ET tube was riding high. Abx started. Fever resolved. 08/25: Bronch with appropriate cultures sent and growing Klebsiella. 08/27: Patient extubated Reviewed 08/31 CXR: stable diffuse lung disease and stable small pleural effusion -- Wean O2 as tolerated -- stop Solu-Medrol. -- Continue Bronchodilators -- Continue CPT --antibiotics to end today -- Lasix IV x 1 -09/01/21 had long discussion with family regarding discharge planning as noted in subjective portion of note. Discussed patient with Care Coordination who will give the family a list of facilities for LTAC placement. N-acetylcysteine started to help with secretions. Will order AM CXR. -09/02/21 CXR improved and lung exam improved this morning. Ordered PEP therapy - acapella to help with secretion clearance. Will continue n-acetylcysteine Q6H. Will work to wean oxygen as tolerated. Again discussed discharge to rehab facility with patient this morning on rounds. Discussed patient with care coordination who reports the family does not want patient to go to LTAC. At this point, it would be unsafe for the patient to return home but the family seems unwilling to pick a facility. -09/03/21 Patient improving with pulmonary toilet. Will continue this and wean oxygen as tolerated. Patient has been accepted to [facility] but discharge will be held until after a trial of enoxaparin to see if patient platelets decrease. -09/04/21 Patient continues to improve. Discussion with as noted in subjective. Patient will be discharged to [facility] tomorrow if platelets do not drop with enoxaparin. -09/05/21 Patient down to 2LNC and feels better. Tolerating TF without nausea or vomiting and no aspiration. Patient reporting he has nausea with the Mucomyst treatments and this was why he vomited. Patient overall clinically improved and is appropriate for discharge to [facility]. Called and spoke with accepting physician at [facility] to answer questions about patient status. (2) Septic shock: Code(s): A41.9 - Sepsis, unspecified organism; R65.21 - Severe sepsis with septic shock Status: Acute Assessment and Plan: Septic shock along with cardiogenic shock secondary to pneumonia and heart failure UA 08/13 not consistent with UTI Urine Legionella and pneumococcal antigen negative Blood cultures 08/13 negative. Sputum 08/16 negative. Patient has received adequate fluids resuscitation. OFF Levophed and vasopressin since 08/18 Likely cardiogenic shock given right sided dysfunction on echocardiogram secondary to STEMI treated with dobutamine (cardiology feels the dilated right ventricle is more chronic) OFF dobutamine since 08/17 as he went into AFib RVR, was given metoprolol but dropped his blood pressures; Amiodarone was started with conversion to sinus rhythm. Patient was on Levophed briefly but is currently off Weaned off stress dose steroids Finished 10 day course of abx with vancomyci
--- NOTE | 2021-09-05 07:31 | PCOTNOTE ---
RN with patient, reconnecting tubing. Requested this therapist return later. Will follow to continue plan of care for OT.
[2021-09-05 07:40] LABS: Glucose Point of Care 96 mg/dl (65-105)
[2021-09-05] MEDS: FAMOTIDINE 20 MG TABLET FEED TUBE (08:09)
[2021-09-05] MEDS: METOPROLOL TARTRATE 12.5 MG TABLET FEED TUBE (08:09)
[2021-09-05] MEDS: ASPIRIN 325 MG TABLET FEED TUBE (08:10)
[2021-09-05] MEDS: ATORVASTATIN 40 MG TABLET FEED TUBE (08:10)
[2021-09-05] MEDS: ENOXAPARIN 40 MG/0.4 ML SYRINGE SUB-Q (08:11)
[2021-09-05 08:21] LABS: Basophils Percent Auto 0.1 % (0.2-1.2); Eosinophils Absolute Auto 0.2 K/mm3 (0-0.3); Eosinophils Percent Auto 2.2 % (0-4.4); Hematocrit 28.7 % (42.0-52.0); Hemoglobin 9.5 g/dL (14.0-18.0); Immature Granulocyte Absolute 0.04 K/mm3 (0.00-0.031); Immature Granulocyte Percent A 0.4 % (0-0.5); Lymphocytes Absolute Auto 0.31 K/mm3 (0.9-3.2); Lymphocytes Percent Auto 3.5 % (18.3-44.2); Mean Corpuscular HGB Conc 33.1 g/dl (32-36); Mean Corpuscular Hemoglobin 31.5 pg (26-34); Mean Platelet Volume 12.1 fl (7.4-10.4); Monocytes Absolute Auto 0.5 K/mm3 (0.1-0.6); Monocytes Percent Auto 5.9 % (2.6-8.5); Neutrophils Absolute Auto 7.8 K/mm3 (1.3-6.7); Neutrophils Percent Auto 87.9 % (45.5-73.1); Platelet Count Result 213 k/mm3 (150-375); Red Blood Count 3.02 M/mm3 (4.6-6.20); Red Cell Distribution Width 13.1 % (11.5-14.5); White Blood Count 8.9 K/mm3 (4.5-10.0)
[2021-09-05 08:29] LABS: Potassium 4.1 mmol/L (3.4-5.0)
[2021-09-05 08:37] LABS: Anion Gap 4 mmol/L (8-16); Blood Urea Nitrogen 20 mg/dL (9-20); Calcium 7.7 mg/dL (8.4-10.2); Carbon Dioxide 29 mmol/L (22-30); Chloride 100 mmol/L (98-107); Estimated CRCL calculation 128 ml/min; Estimated Glomerular Filt Rate > 60; Glucose 89 mg/dL (65-110); Sodium 133 mmol/L (137-145)
[2021-09-05] MEDS: MAGNESIUM SULF 1 GM/D5W 100 ML 1 GM/100 ML BAG IVPB (12:27)
--- NOTE | 2021-09-05 13:36 | PCNFU ---
Nutrition Follow-Up Complete: Increased protein needs as related to wounds as evidenced by Deep Tissue Pressure injury reported. Goal: Meet estimated nutritional needs. Pt is meeting goal. Continue with current goal. Pt current nutrition is Tube Feed, Jevity 1.5 @ 70ml/hr, Berny BID. Last recorded weight is 76.5 kg.- down 6.5 kg since yesterday, possibly due to bed scale. Bowel Motility: + BM 09/05 Labs Reviewed: Hgb:9.5, Hct:28.7, Na:133, Cr:0.5. Meds Noted: Lipitor, Lovenox, Pepcid, Prevacid Susp, Synthroid, Melatonin, Lopressor, Zofran Skin: Deep tissue pressure injury Additional Notes: Pt with PEG, tolerating tube feed. Jevity 1.5 at 70ml/hr to provide 2310kcals, 98g protein, 1170ml free water. Flushes 200ml q 4 hrs: Na levels have dropped below normal limits. Recommend Flush amount decrease to 150ml q 4 hrs, per MD orders. Tube feeding is meeting 100% of estimated needs. Pt receives Berny BID for wound healinkcals, 2.5g protein per packet. 2,400 kcals total, 100.5 grams protein total. Agree with diet order. Will monitor every Saturday and Saturday.
--- NOTE | 2021-09-05 13:52 | PCNSR ---
On 09/05/21, the student, Charlene May, provided care and completed [facility] documentation on this patient. I have reviewed the student's documentation and agree with the findings.
[2021-09-05] MEDS: POTASSIUM PHOS,M-BASIC-D-BASIC 15 MMOL in SODIUM CHLORIDE 0.9% IV 250 ML 63.75 MMOL IVPB (14:01)
--- NOTE | 2021-09-05 14:58 | PCRCNOTE ---
During 0800 Treatment, Patient refused CPT vest and Mucomyst from RT. Patient previously did both, but stated the vest & Mucomyst are making the patient nauseous and treatment could not be tolerated today. RN notified.
[2021-09-05 17:58] LABS: Glucose Point of Care 133 mg/dl (65-105)
[2021-09-05 17:58] LABS: Glucose Point of Care 107 mg/dl (65-105)
[2021-09-05] MEDS: NEOMYCIN/POLYMYXIN/BACITRACIN OINTMENT PACKET 1 PACKET (18:06)
[2021-09-12 09:02] LABS: Glucose Point of Care 122 mg/dl (65-105)
[2021-09-12 09:02] LABS: Glucose Point of Care 135 mg/dl (65-105)
[2021-09-12 09:02] LABS: Glucose Point of Care 122 mg/dl (65-105)
== END 2021-09-05 20:30 | DRG 870 ==
LOC: ANHED 08-13 02:09 → ANHIMU 08-13 04:34 → ANHICU 08-13 10:12 → ANH3MEDSUR 09-01 18:18
PROVIDERS: Internal Medicine; Internal Medicine Critical Care Medicine; Student in an Organized Health Care Education/Training Program; Admitting Provider Internal Medicine; Emergency Provider Emergency Medicine; PCP Internal Medicine; Visit Provider Family Medicine
PROC: 0BJ08ZZ Inspection of Tracheobronchial Tree, Via Natural or Artificial Opening Endoscopic (ICD-10-PCS; CPT 31622; principal; 2021-08-25 13:00)
DX: A41.9 Sepsis, unspecified organism (principal); R65.21 Severe sepsis with septic shock; R57.0 Cardiogenic shock; J18.9 Pneumonia, unspecified organism; J69.0 Pneumonitis due to inhalation of food and vomit; G93.41 Metabolic encephalopathy; I21.19 ST elevation (STEMI) myocardial infarction involving other coronary artery of inferior wall; J80 Acute respiratory distress syndrome; K94.23 Gastrostomy malfunction; E87.2 Acidosis; K56.7 Ileus, unspecified; B37.89 Other sites of candidiasis; I50.9 Heart failure, unspecified; B96.1 Klebsiella pneumoniae [K. pneumoniae] as the cause of diseases classified elsewhere; K21.9 Gastro-esophageal reflux disease without esophagitis; R13.10 Dysphagia, unspecified; N40.0 Benign prostatic hyperplasia without lower urinary tract symptoms; R47.02 Dysphasia; I48.91 Unspecified atrial fibrillation; T17.990A Other foreign object in respiratory tract, part unspecified in causing asphyxiation, initial encounter; E03.9 Hypothyroidism, unspecified; Z20.822 Contact with and (suspected) exposure to COVID-19; M48.8X2 Other specified spondylopathies, cervical region; D69.6 Thrombocytopenia, unspecified; Z85.819 Personal history of malignant neoplasm of unspecified site of lip, oral cavity, and pharynx
CPT/HCPCS: 36415; 36569; 36600; 49465; 51701; 70450; 70486; 70490; 71045; 71046; 71250; 71275; 74019; 74176; 80048; 80053; 80202; 81001; 82140; 82274; 82375; 82607; 82746; 82805; 82948; 83050; 83605; 83690; 83735; 83880; 84100; 84145; 84443; 84484; 85025; 85027; 85055; 85610; 85730; 85999; 86140; 87015; 87040; 87070; 87077; 87116; 87186; 87205; 87206; 87449; 87502; 87899; 93005; 93306; 93970; 94002; 94003; 94640; 94660; 94667; 94668; 94669; 96365; 97110; 97162; 97167; 97530; 97535; 99285; A9270; C1751; C9113; C9803; J0131; J0282; J0330; J0456; J0692; J0696; J1120; J1250; J1650; J1652; J1720; J1940; J2060; J2250; J2270; J2310; J2405; J2543; J2765; J2920; J2997; J3010; J3370; J3475; J7030; J7040; J7050; J7060; J7120; P9045; P9047; Q9967; U0003; U0005

== ENCOUNTER 2021-12-15 16:09 | Emergency (ER) | payer MEDICARE, OTHER, SELFPAY ==
--- NOTE | ~2021-12-15 | CT_ITS ---
EXAMINATION: CTA chest PE protocol DATE: 12/15/2021 19:28 INDICATION: Pleuritic chest pain. TECHNIQUE: Computed tomography angiography (CTA) of the chest was performed with 100 mL Omnipaque-350 intravenous contrast timed to evaluate the pulmonary arteries. Coronal maximum intensity projection 3D-reconstructions were created by the technologist. Automated exposure control and iterative reconst ruction technique were employed. The dose-length product was 280.51 mGy-cm. COMPARISON: Chest CT 08/24/2021 FINDINGS: There is mild scarring at the lung apices. There are tree-in-bud opacities in all lobes. Th ere are centrilobular nodules and groundglass opacities in right upper lobe. There are mild groundgla ss opacities in right middle lobe. There are patchy airspace opacities in left lower lobe. There is m ild emphysema. There is mild bronchiectasis with a lower lung predominance. No pleural effusion. The heart size is normal. No pericardial effusion. There are coronary artery calcifications. There is no pulmonary embolus. There is thoracic levocurvature and spondylosis. There is mild chronic height loss of multiple vertebral bodies. IMPRESSION: 1. No pulmonary embolus. 2. Multifocal pneumonia involving all lobes. 3. Mild emphysema and mild bronchiectasis. Reviewed, dictated and finalized at location A.
--- NOTE | ~2021-12-15 | XR_ITS ---
EXAMINATION: XR chest 2V DATE: 12/15/2021 17:19 INDICATION: Chest pain, possible aspiration TECHNIQUE: Frontal and lateral views of the chest are obtained COMPARISON: 09/02/2021 FINDINGS: The lungs are free of acute opacities. No pleural effusion or pneumothorax. The cardiomedia stinal silhouette is normal. There is moderate thoracic spondylosis. Surgical changes are noted in th e right neck. IMPRESSION: 1. No acute cardiopulmonary abnormality. Reviewed, dictated and finalized at location A.
[2021-12-15 16:32] VITALS: BP 117/87; PULSE 96; RESP 14; TEMP 36.5; O2SAT 100
--- NOTE | 2021-12-15 16:34 | ECG_ITS ---
Measurements Intervals [place] Rate: 94 P: 83 MA: 153 QRS: 42 QRSD: 90 T: 30 QT: 332 QTc: 416 Interpretive Statements SINUS RHYTHM INDETERMINATE AXIS POSSIBLE ANTEROSEPTAL MYOCARDIAL INFARCTION, OF INDETERMINATE AGE ABNORMAL ECG COMPARED TO ECG 08/14/2021 16:38:21 HEART RATE HAS DECREASED ST-ELEVATION NO LONGER APPRECIATED IN INFERIOR LEADS Electronically Signed On 12-15-2021 17:11:57 CDT by John Bauer M.D.
[2021-12-15 16:52] LABS: Basophils Percent Auto 0.6 % (0.2-1.2); Eosinophils Absolute Auto 0.2 K/mm3 (0-0.3); Eosinophils Percent Auto 2.2 % (0-4.4); Hematocrit 41.3 % (42.0-52.0); Hemoglobin 13.4 g/dL (14.0-18.0); Immature Granulocyte Absolute 0.04 K/mm3 (0.00-0.031); Immature Granulocyte Percent A 0.6 % (0-0.5); Lymphocytes Absolute Auto 0.85 K/mm3 (0.9-3.2); Lymphocytes Percent Auto 11.8 % (18.3-44.2); Mean Corpuscular HGB Conc 32.4 g/dl (32-36); Mean Corpuscular Hemoglobin 32.2 pg (26-34); Mean Corpuscular Volume 99.3 fl (80-100); Mean Platelet Volume 11.9 fl (7.4-10.4); Monocytes Absolute Auto 0.5 K/mm3 (0.1-0.6); Monocytes Percent Auto 6.5 % (2.6-8.5); Neutrophils Absolute Auto 5.7 K/mm3 (1.3-6.7); Neutrophils Percent Auto 78.3 % (45.5-73.1); Platelet Count Result 204 k/mm3 (150-375); Red Blood Count 4.16 M/mm3 (4.6-6.20); Red Cell Distribution Width 12.6 % (11.5-14.5); White Blood Count 7.2 K/mm3 (4.5-10.0)
[2021-12-15 17:02] LABS: Alanine Aminotransferase 16 U/L (6-50); Albumin Level 4.4 g/dL (3.5-5.1); Alkaline Phosphatase 67 U/L (38-126); Anion Gap 12 mmol/L (8-16); Aspartate Amino Transferase 22 U/L (17-59); Bilirubin,Total 0.3 mg/dL (0.2-1.3); Blood Urea Nitrogen 28 mg/dL (9-20); Calcium 8.9 mg/dL (8.4-10.2); Carbon Dioxide 29 mmol/L (22-30); Chloride 99 mmol/L (98-107); Estimated CRCL calculation 83 ml/min; Estimated Glomerular Filt Rate > 60; Glucose 95 mg/dL (65-110); Lipase 54 U/L (23-300); Potassium 4.3 mmol/L (3.4-5.0); Sodium 140 mmol/L (137-145)
[2021-12-15 17:14] LABS: Troponin I < 0.012 ng/mL (0.000-0.034)
[2021-12-15 17:26] LABS: Prothrombin Time 12.8 Seconds (11.1-14.7)
--- NOTE | 2021-12-15 17:38 | ED.GENADULT ---
HPI - General Adult General Chief complaint: Unspecified Stated complaint: aspiration Time Seen by Provider: 12/15/21 17:14 Source: patient Mode of arrival: ambulatory Limitations: no limitations History of Present Illness HPI narrative: This is a 66 year old male that presents to the ER for possible aspiration. Reports he does tube feedings due to his history of throat cancer. He had the tube feeding yesterday. He felt like his stomach was full. He leaned over the side of his chair to try and reach for something. This caused him to vomit. He felt acid go back up into his throat and then into his lungs. Since he has been having a constant burning chest pain. Does report a cough. Reports he is currently on Augmentin for a respiratory infection, prescribed by his ENT. Denies shortness of breath. Related Data Home Medications Medication Instructions Recorded Confirmed levothyroxine 25 mcg tablet 25 mcg feeding tube DAILY 05/23/20 09/07/21 aspirin 325 mg tablet (Regis 325 mg feeding tube DAILY@0800 09/05/21 09/07/21 Aspirin) diazepam 10 mg tablet 10 mg feeding tube TID PRN Sleep 09/07/21 09/07/21 zolpidem 10 mg tablet 10 mg feeding tube HS PRN Sleep 09/07/21 09/07/21 Allergies Allergy/AdvReac Type Severity Reaction Status Date / Time No Known Allergies Allergy Verified 05/26/20 09:06 Review of Systems Review of Systems: CONSTITUTIONAL: Denies fever CARDIOVASCULAR: Reports chest pain RESPIRATORY: Reports cough. Denies dyspnea. All systems reviewed & are unremarkable except as noted in HPI and below PMFSH Past Medical History Medical History Cervical spine disease Gastrostomy tube dependent GERD (gastroesophageal reflux disease) History of throat cancer XRT and surgery Hypothyroid Malfunction of gastrostomy tube Spina bifida as a child with surgery; residual 'bladder issues' Surgical History Surgical History History of ear, nose, and throat (ENT) surgery Family History Family History Mother Colon cancer Social History Social History Social History: Lives at home with . Never smoked. No alcohol and drug use. Full code. would be the Individual would make medical decisions for him if he is unable Smoking status: Never smoker Alcohol intake: former Substance use: never Substance use type: does not use Gender identity (if verbalized by the patient): Male Sexual Orientation (if Verbalized by the Patient): Straight or Heterosexual Spiritual care concerns: No Agree to blood products: Yes Exam Narrative: GENERAL: Well-appearing, well-nourished, and in no acute distress. HEAD: Normocephalic, atraumatic. EYES: EOMI. ENT: Mucous membranes moist. Oropharynx without tonsillar hypertrophy exudate or other lesions. CHEST: Clear to auscultation. No respiratory distress. No wheezes rales or rhonchi HEART: Regular rate and rhythm. No murmur heard. Normal peripheral pulses. ABDOMEN: Soft, nontender, nondistended, normal active bowel sounds. EXTREMITIES: Normal range of motion. No edema. SKIN: Warm, dry, no rash. NEURO: No focal deficits. Alert and oriented x3. PSYCH: Normal mood and affect Course Vital Signs Vital signs: Vital Signs Temperature 97.7 F 12/15/21 16:32 Pulse Rate 96 12/15/21 16:32 Respiratory Rate 14 12/15/21 16:32 Blood Pressure 117/87 12/15/21 16:32 Pulse Oximetry 100 12/15/21 16:32 Oxygen Delivery Room Air 12/15/21 16:32 Temperature 97.7 F 12/15/21 16:32 Pulse Rate 96 12/15/21 16:32 Respiratory Rate 14 12/15/21 16:32 Blood Pressure 117/87 12/15/21 16:32 Pulse Oximetry 100 12/15/21 16:32 Oxygen Delivery Room Air 12/15/21 16:32 Medical Decision Making MDM Narrative Medical decision eldon
[2021-12-15 18:31] VITALS: BP 157/98; O2SAT 99
[2021-12-15] MEDS: PANTOPRAZOLE SODIUM IV 40 MG VIAL IV PUSH (18:32)
[2021-12-15 18:33] LABS: D Dimer 0.51 ug/mL (<0.48)
[2021-12-15 18:46] VITALS: BP 145/96; PULSE 77; RESP 18; O2SAT 99
[2021-12-15 19:01] VITALS: BP 144/92; PULSE 75; RESP 18; O2SAT 100
[2021-12-15 19:27] VITALS: BP 167/98; PULSE 72; RESP 18; O2SAT 99
[2021-12-15 19:31] VITALS: BP 157/95; PULSE 75; RESP 17; O2SAT 100
[2021-12-15 20:22] LABS: Troponin I 0.013 ng/mL (0.000-0.034)
== END 2021-12-15 20:45 | disposition home or self-care (01) ==
PROVIDERS: Emergency Medicine; Physician Assistant; Emergency Provider Emergency Medicine; PCP Internal Medicine
DX: J69.0 Pneumonitis due to inhalation of food and vomit (principal); E03.9 Hypothyroidism, unspecified; R07.9 Chest pain, unspecified; R05.9 Cough, unspecified; Z79.82 Long term (current) use of aspirin; Z85.818 Personal history of malignant neoplasm of other sites of lip, oral cavity, and pharynx
CPT/HCPCS: 36415; 71046; 71275; 80053; 83690; 84484; 85025; 85380; 85610; 85730; 93005; 96374; 99284; C9113; Q9967

== ENCOUNTER 2022-03-05 02:19 | Inpatient (IN) | payer MEDICARE, OTHER, SELFPAY ==
[2022-03-05] VITALS (28 sets, daily range): BP systolic 92–153; BP diastolic 58–91; PULSE 81–110; RESP 14–23; TEMP 36.4–37.6; O2SAT 91–100; BMI 20.9
--- NOTE | ~2022-03-05 | XR_ITS ---
EXAMINATION: XR chest 2V DATE: 03/10/2022 07:55 INDICATION: Shortness of breath. TECHNIQUE: Frontal and lateral views of the chest were obtained. COMPARISON: Chest 2 views 03/08/22, chest CT 03/05/2022 FINDINGS: There is mild scarring at the lung apices. There are airspace opacities in the lower lung z ones. There is a small left pleural effusion. No pneumothorax. The heart size is normal. There are couch rgical clips in the neck. IMPRESSION: 1. Stable airspace opacities in the lower lung zones, consistent with pneumonia. 2. Stable small left pleural effusion. Reviewed, dictated and finalized at location A. CROCHETER IMPRESSION: 1. Stable airspace opacities in the lower lung zones, consistent with pneumonia . 2. Stable small left pleural effusion.
--- NOTE | ~2022-03-05 | XR_ITS ---
Clinical Indication: Shortness of breath PA and lateral views of the chest: Comparison: 03/05/2022 Findings: There is worsening hazy bibasilar airspace disease. No definite pleural effusion.. Cardiom ediastinal silhouette is within normal limits. Bones and soft tissues are unremarkable. Impression: Worsening bibasilar airspace disease. Correlate for worsening pulmonary edema versus bibasilar pneumo domo. Suspected underlying COPD. Reviewed, dictated and finalized at location M. TION PAINT MACHINE TENDER Impression: Worsening bibasilar airspace disease. Correlate for worsening pulmonary edema v ersus bibasilar pneumonia. Suspected underlying COPD.
--- NOTE | ~2022-03-05 | XR_ITS ---
EXAMINATION: XR chest 1V portable DATE: 03/05/2022 02:55 INDICATION: Shortness of breath. Aspiration. TECHNIQUE: frontal view of the chest was obtained. COMPARISON: Chest radiograph dated 12/15/2021 FINDINGS: Unchanged airspace opacities in the left mid to lower lung zone consistent with aspiration or pneumon ia. No pleural effusion or pneumothorax. The cardiomediastinal silhouette is normal. Surgical clips a t the right base of the neck. IMPRESSION: 1. Patchy opacities in the left mid to lower lung zone which could represent aspiration or pneumonia. Reviewed, dictated and finalized at location A. OGY PHYSICIAN ASSISTANT IMPRESSION: 1. Patchy opacities in the left mid to lower lung zone which could represent as piration or pneumonia.
--- NOTE | ~2022-03-05 | CT_ITS ---
Clinical Indication: Aspiration, pneumonia, nausea and vomiting CT Scan of the Chest, Abdomen, and Pelvis without Contrast: Technique: Contiguous sections were acquired throughout the chest, abdomen, and pelvis without IV con trast administration. Dose reduction technique was used on this scan by utilizing automated exposure control and iterative reconstruction technique. The dose-length product (DLP) was 436.98 mGy-cm. COMPARISON: Chest CT dated 12/15/2021 Findings: There is no evidence of any significant mediastinal, hilar or axillary lymphadenopathy. And artery ca lcifications are present. No aortic aneurysm. There is no evidence of pleural or pericardial effusion. There is extensive left lower lobe consolidation. There is minimal groundglass opacity at the lingula /inferior left upper lobe. Right lung is clear. The liver, spleen, pancreas, gallbladder, adrenals and kidneys are within normal limits. No evidence of aortic aneurysm. No lymphadenopathy. No bowel obstruction or bowel wall thickening. There is no evidence to suggest acute appendicitis. Urinary bladder is unremarkable. Prostate gland is enlarged. Impression: Extensive left lower lobe pneumonia, probable minimal involvement of the lingula. Enlarged prostate gland. Reviewed, dictated and finalized at location . DIRECTOR/FINANCE Impression: Extensive left lower lobe pneumonia, probable minimal involvement of the lingul a. Enlarged prostate gland.
--- NOTE | 2022-03-05 02:45 | PC.NURSE ---
pt placed on per N/C at 2L for of 91%
--- NOTE | 2022-03-05 02:57 | ED.GENADULT ---
HPI - General Adult General Chief complaint: Nausea/Vomiting/Diarrhea Stated complaint: n/v, aspiration? with feeding tube Time Seen by Provider: 03/05/22 02:33 History of Present Illness HPI narrative: 66-year-old male with history of esophageal cancer presented to the emergency department for evaluation of aspiration pneumonia. Patient reports he is G-tube fed due to the history of radiation therapy for his esophageal cancer. Patient states his esophageal cancer was taken care of approximately 5 years ago. Patient states over the course today he began feeling increasingly weak. Patient states this evening he had an episode of emesis and suspects aspiration. Patient does have a prior history of aspiration. Related Data Home Medications Medication Instructions Recorded Confirmed diazepam 10 mg tablet 10 mg feeding tube TID PRN Muscle 09/07/21 03/05/22 Spasm zolpidem 10 mg tablet 10 mg feeding tube HS PRN Sleep 09/07/21 03/05/22 aspirin 81 mg tablet 81 mg PO DAILY 03/05/22 03/05/22 finasteride 5 mg tablet (Proscar) 5 mg feeding tube DAILY 03/05/22 03/05/22 Allergies Allergy/AdvReac Type Severity Reaction Status Date / Time No Known Allergies Allergy Verified 03/05/22 02:25 Review of Systems Review of Systems: CONSTITUTIONAL: Denies fever, chills, or sweats. EYES: Denies visual changes, redness, or discharge. ENT: Denies rhinorrhea, congestion, sore throat, or otalgia. CARDIOVASCULAR: Denies chest pain, palpitations, or edema. RESPIRATORY: See HPI GASTROINTESTINAL: Denies abdominal pain, nausea, vomiting, or diarrhea. GENITOURINARY: Denies dysuria or hematuria. SKIN: Denies rash or itching. MUSCULOSKELETAL: Denies back pain, joint pain, or myalgia. NEUROLOGIC: Denies headache, numbness, or weakness. [facility] Past Medical History Medical History Cervical spine disease Gastrostomy tube dependent GERD (gastroesophageal reflux disease) History of throat cancer XRT and surgery Hypothyroid Malfunction of gastrostomy tube Spina bifida as a child with surgery; residual 'bladder issues' Surgical History Surgical History History of ear, nose, and throat (ENT) surgery Family History Family History Mother Colon cancer Social History Social History Social History: Lives at home with . Never smoked. No alcohol and drug use. Full code. would be the Individual would make medical decisions for him if he is unable Smoking status: Never smoker Second hand tobacco smoke exposure: No Alcohol intake: never Substance use: never Substance use type: does not use Lack of Transportation: No Lack of Food: Never True Current Housing: I Have Housing Concerned About Future Housing: No Difficulty Paying Gas/Electric Bills: No Difficulty Paying for Meds: No Currently Unemployed: No Education: Bachelor's Degree Difficulty w/ Childcare or Family Care: No Living arrangements: with family Gender identity (if verbalized by the patient): Male Sexual Orientation (if Verbalized by the Patient): Straight or Heterosexual Spiritual care concerns: No Agree to blood products: Yes Exam Narrative: APPEARANCE: Well appearing, no pain, no distress, well-nourished. HEAD: normocephalic, atraumatic. EYES: PERRLA/EOMI, conjunctivae clear. NOSE: Normal no drainage EARS:TMS clear with good light reflex. THROAT: Pharynx clear, no exudate. NECK: Supple. No adenopathy, no masses. RESPIRATORY: Rhonchi bilaterally CARDIOVASCULAR: Regular rate and rhythm without murmurs rubs or gallops. ABDOMINAL: Soft, nontender, nondistended, normal bowel sounds MUSCULOSKELETAL: Moves all extremities. Strength/ROM intact, No edema, No calf tenderness. NEURO: Alert. Cranial nerves II through XII intact
[2022-03-05] MEDS: AMPICILLIN SULB 3 GM/NS 100 ML 3 GM/100 ML VIAL IVPB (03:18)
[2022-03-05 03:48] LABS: Influenza A QL RT-PCR Negative (Negative); Influenza B QL RT-PCR Negative (Negative); RSV RNA, RT-PCR Negative (Negative); SARS-CoV-2 RNA PCR Negative
[2022-03-05 03:55] LABS: Basophils Percent Auto 0.5 % (0.2-1.2); Eosinophils Percent Auto 0.2 % (0-4.4); Hematocrit 47.6 % (42.0-52.0); Hemoglobin 15.4 g/dL (14.0-18.0); Immature Granulocyte Absolute 0.01 K/mm3 (0.00-0.031); Immature Granulocyte Percent A 0.2 % (0-0.5); Lymphocytes Absolute Auto 0.29 K/mm3 (0.9-3.2); Mean Corpuscular HGB Conc 32.4 g/dl (32-36); Mean Corpuscular Hemoglobin 32.5 pg (26-34); Mean Corpuscular Volume 100.4 fl (80-100); Mean Platelet Volume 12.6 fl (7.4-10.4); Monocytes Absolute Auto 0.3 K/mm3 (0.1-0.6); Monocytes Percent Auto 5.7 % (2.6-8.5); Neutrophils Absolute Auto 5.2 K/mm3 (1.3-6.7); Neutrophils Percent Auto 88.4 % (45.5-73.1); Platelet Count Result 171 k/mm3 (150-375); Red Blood Count 4.74 M/mm3 (4.6-6.20); Red Cell Distribution Width 13.7 % (11.5-14.5); White Blood Count 5.8 K/mm3 (4.5-10.0)
[2022-03-05 04:12] LABS: Alanine Aminotransferase 21 U/L (6-50); Albumin Level 4.6 g/dL (3.5-5.1); Alkaline Phosphatase 66 U/L (38-126); Anion Gap 10 mmol/L (8-16); Aspartate Amino Transferase 27 U/L (17-59); Bilirubin,Total 0.9 mg/dL (0.2-1.3); Blood Urea Nitrogen 33 mg/dL (9-20); Carbon Dioxide 32 mmol/L (22-30); Chloride 99 mmol/L (98-107); Estimated Glomerular Filt Rate > 60; Glucose 129 mg/dL (65-110); Potassium 3.8 mmol/L (3.4-5.0); Sodium 141 mmol/L (137-145)
[2022-03-05] MEDS: SODIUM CHLORIDE 0.9% IV 1,000 ML 999 ML IV CONT (05:41)
--- NOTE | 2022-03-05 06:34 | ADMGEN ---
This patient, Mal Akhtar, was admitted to 2 Medical Room 261-01. Patient/family oriented to hospital policies and general routines including ID bracelet, bed and alarms, visiting hours, pain management, procedures, bathroom and other care routines, personal items, smoking policy, room service/diet, and visiting hours. Information on how to activate the Rapid Response Team has been discussed. Patient/Family are encouraged to report perceived risks to care and to ask questions if they do not understand what they are told or what they should do.
[2022-03-05] MEDS: ALBUTEROL SULFATE NEB 2.5 MG/3 ML INH 5 MG INHALATION ×2 (10:03→14:52)
--- NOTE | 2022-03-05 11:38 | PM.IMHP ---
H&P: HPI History of Present Illness Date/Time: 03/05/22 11:38 Chief Complaint: Nausea vomiting Narrative: this is a 66-year-old male with history of esophageal cancer diagnosed approximately 5 years ago status post surgery and radiation therapy and severe dysphagia NPO status history of multiple aspiration pneumonia and status post G-tube placement. He presents today feeling increasingly weak and had several episodes nausea vomiting. Was only able to give 1 can of his tube feed. He has not had any bowel movement since a week. Denies any past flatus. He reports some abdominal pain. X-ray done which showed left mid and lower lobe pneumonia and was given some antibiotics. He is admitted for further evaluation and management. He typically sees a GI doctor at [facility]. Review of Systems Review of Systems: - CONSTITUTIONAL: Denies weight loss, fever and chills. - HEENT: Denies changes in vision and hearing - RESPIRATORY: Denies SOB and Reports some cough. - CV: Denies palpitations and CP. - GI: reports abdominal pain, nausea, vomiting and denies diarrhea. - : Denies dysuria and urinary frequency. - MSK: Denies myalgia and joint pain. - SKIN: Denies rash and pruritus. - NEUROLOGICAL: Denies headache and syncope. - PSYCHIATRIC: Denies recent changes in mood. Denies anxiety and depression. [facility] Past Medical History Medical History Cervical spine disease Gastrostomy tube dependent GERD (gastroesophageal reflux disease) History of throat cancer XRT and surgery Hypothyroid Malfunction of gastrostomy tube Spina bifida as a child with surgery; residual 'bladder issues' Surgical History Surgical History History of ear, nose, and throat (ENT) surgery Family History Family History Mother Colon cancer Social History Social History Social History: Lives at home with . Never smoked. No alcohol and drug use. Full code. would be the Individual would make medical decisions for him if he is unable Smoking status: Never smoker Second hand tobacco smoke exposure: No Alcohol intake: never Substance use: never Substance use type: does not use Lack of Transportation: No Lack of Food: Never True Current Housing: I Have Housing Concerned About Future Housing: No Difficulty Paying Gas/Electric Bills: No Difficulty Paying for Meds: No Currently Unemployed: No Education: Bachelor's Degree Difficulty w/ Childcare or Family Care: No Gender identity (if verbalized by the patient): Male Sexual Orientation (if Verbalized by the Patient): Straight or Heterosexual Spiritual care concerns: No Agree to blood products: Yes Meds Home Medications and Allergies Home Medications Medication Instructions Recorded Confirmed Type diazepam 10 mg tablet 10 mg feeding tube TID PRN Muscle 09/07/21 03/05/22 History Spasm zolpidem 10 mg tablet 10 mg feeding tube HS PRN Sleep 09/07/21 03/05/22 History aspirin 81 mg tablet 81 mg PO DAILY 03/05/22 03/05/22 History finasteride 5 mg tablet (Proscar) 5 mg feeding tube DAILY 03/05/22 03/05/22 History Allergies Allergy/AdvReac Type Severity Reaction Status Date / Time No Known Allergies Allergy Verified 03/05/22 02:25 Vital Signs Vital Signs - 24 hr 03/05/22 02:23 03/05/22 02:19 03/05/22 03:40 Temperature 97.5 F L Pulse Rate 110 H 90 Respiratory Rate 20 21 H Blood Pressure 153/91 H Pulse Oximetry 91 95 99 Oxygen Delivery Room Air High Flow Nasal Cannula Oxygen Flow Rate 2 03/05/22 03:46 03/05/22 04:00 03/05/22 04:01 Temperature Pulse Rate 97 92 91 Respiratory Rate 22 H 20 22 H Blood Pressure 100/67 95/66 L Pulse Oximetry 99 99 99 Oxygen Delivery Oxygen F
[2022-03-05 12:23] LABS: Lipase 18 U/L (23-300)
[2022-03-05] MEDS: DEXTROSE 5%/0.9% SOD CHL 1,000 ML 100 ML IV CONT (15:56)
[2022-03-05] MEDS: ZOLPIDEM TARTRATE (*CRX) 5 MG TABLET 10 MG FEED TUBE (23:47)
[2022-03-06] VITALS (11 sets, daily range): BP systolic 96–113; BP diastolic 62–64; PULSE 80–105; RESP 16–20; TEMP 36.9–37.4; O2SAT 96–98; BMI 20.9
[2022-03-06] MEDS: ALBUTEROL SULFATE NEB 2.5 MG/3 ML INH 5 MG INHALATION ×3 (02:08→21:15)
[2022-03-06] MEDS: DEXTROSE 5%/0.9% SOD CHL 1,000 ML 100 ML IV CONT ×2 (03:00→12:54)
[2022-03-06 05:39] LABS: Basophils Percent Auto 0.3 % (0.2-1.2); Eosinophils Absolute Auto 0.1 K/mm3 (0-0.3); Eosinophils Percent Auto 1.1 % (0-4.4); Hematocrit 37.3 % (42.0-52.0); Immature Granulocyte Absolute 0.01 K/mm3 (0.00-0.031); Immature Granulocyte Percent A 0.2 % (0-0.5); Lymphocytes Absolute Auto 0.49 K/mm3 (0.9-3.2); Lymphocytes Percent Auto 7.8 % (18.3-44.2); Mean Corpuscular HGB Conc 32.2 g/dl (32-36); Mean Corpuscular Hemoglobin 33.1 pg (26-34); Mean Platelet Volume 11.8 fl (7.4-10.4); Monocytes Absolute Auto 0.4 K/mm3 (0.1-0.6); Monocytes Percent Auto 6.2 % (2.6-8.5); Neutrophils Absolute Auto 5.3 K/mm3 (1.3-6.7); Neutrophils Percent Auto 84.4 % (45.5-73.1); Platelet Count Result 126 k/mm3 (150-375); Red Blood Count 3.62 M/mm3 (4.6-6.20); Red Cell Distribution Width 13.9 % (11.5-14.5); White Blood Count 6.3 K/mm3 (4.5-10.0)
[2022-03-06 05:54] LABS: Alanine Aminotransferase 20 U/L (6-50); Albumin Level 3.3 g/dL (3.5-5.1); Alkaline Phosphatase 48 U/L (38-126); Anion Gap 3 mmol/L (8-16); Aspartate Amino Transferase 24 U/L (17-59); Bilirubin,Total 0.8 mg/dL (0.2-1.3); Blood Urea Nitrogen 24 mg/dL (9-20); Calcium 7.7 mg/dL (8.4-10.2); Carbon Dioxide 30 mmol/L (22-30); Chloride 107 mmol/L (98-107); Estimated CRCL calculation 76 ml/min; Estimated Glomerular Filt Rate > 60; Glucose 134 mg/dL (65-110); Magnesium 2.4 mg/dL (1.6-2.3); Potassium 3.7 mmol/L (3.4-5.0); Sodium 140 mmol/L (137-145)
[2022-03-06] MEDS: diazePAM (*CRX) 5 MG TABLET 10 MG FEED TUBE (06:14)
[2022-03-06] MEDS: ASPIRIN 81 MG CHEWABLE TABLET PO (10:03)
[2022-03-06] MEDS: FINASTERIDE 5 MG TABLET FEED TUBE (10:03)
--- NOTE | 2022-03-06 14:10 | PCRCNOTE ---
Window of time for administration has passed. See next scheduled administration.
[2022-03-06] MEDS: ONDANSETRON INJ 4 MG/2 ML VIAL IV PUSH (15:20)
--- NOTE | 2022-03-06 18:12 | PM.IMPN ---
Progress Note: A&P Assessment and Plan (1) Nausea & vomiting: Code(s): R11.2 - Nausea with vomiting, unspecified Status: Acute (2) Gastrostomy tube dependent: Code(s): Z93.1 - Gastrostomy status Status: Acute (3) Pneumonia: Code(s): J18.9 - Pneumonia, unspecified organism Status: Acute (4) History of throat cancer: Code(s): Z85.819 - Personal history of malignant neoplasm of unspecified site of lip, oral cavity, and pharynx Status: Acute Plan # nausea vomiting several episodes. Has been constipated. CT abdomen and pevlis unremrakble. will reinitiate continuous tube feed slow rate to assess tolerability. he uses bolus feeding, will need to swithc to bolus once tolerated. constipation could be possible reason. will get miralax and also a supp to help # left lower lobe pneumonia possible aspiration. Will continue antibiotics with Zosyn for aspiration pneumonia blood culture has been received in the ER WBC count is normal. Influenza a/ B RSV COVID negative. ct chest does reveal lll pneumonia. # History of throat cancer status post radiation therapy # severe dysphagia on NPO status NG tube placement # status post G-tube placement; restart tube feeds. dsicusseed with dietitian # evidence of mild emphysema and mild bronchiectasis in previous CTA # cervical spine disease # DVT prophylaxis Lovenox # code status full code Subjective Date/time seen: 03/06/22 18:12 Interval history: no furhter nasuea, vomtiign. dsicussed with dietitian. has not had bm. cough and sob is improving. Review of Systems Review of Systems: All systems reviewed & are unremarkable except as noted in HPI and below Exam Narrative: GENERAL: The patient is well developed, not in acute distress HEENT: Nonicteric sclerae, PERRLA, EOMI. Oropharynx clear. Moist mucous membranes. Conjunctivae appear well perfused. CHEST: Chest wall is nontender. HEART: Regular rate and rhythm without murmur, rubs, or gallops LUNGS:no respiratory distress coarse breath sounds bilaterally ABDOMEN: Soft, increased bowel sounds, mild periumbilical tenderness, mildly distended, no organomegaly. SKIN: No rash, no excessive bruising, petechiae, or purpura. NEUROLOGIC: Cranial nerves II-XII intact, alert and oriented x 3, no gross motor deficits EXTREMITIES: no edema, cyanosis or clubbing Objective Data Vital Signs Vital Signs: Vital Signs - 24 hr 03/05/22 23:00 03/06/22 02:08 03/06/22 02:11 Temperature 98.9 F Pulse Rate 81 90 90 Respiratory Rate 14 18 18 Blood Pressure 92/66 L Pulse Oximetry 97 96 Oxygen Delivery Nasal Cannula Oxygen Flow Rate 2 03/06/22 02:22 03/05/22 20:00 03/06/22 05:06 Temperature 98.5 F Pulse Rate 88 93 Respiratory Rate 18 16 Blood Pressure 96/63 L Pulse Oximetry 97 96 Oxygen Delivery Nasal Cannula Oxygen Flow Rate 2 03/06/22 09:45 03/06/22 14:43 03/06/22 14:00 Temperature 99.3 F Pulse Rate 85 105 H Respiratory Rate 18 18 Blood Pressure 108/62 Pulse Oximetry 97 Oxygen Delivery Nasal Cannula Oxygen Flow Rate 2 03/06/22 10:00 Temperature Pulse Rate Respiratory Rate Blood Pressure Pulse Oximetry 97 Oxygen Delivery Nasal Cannula Oxygen Flow Rate 2 Intake/Output Intake/Output: Intake & Output 03/03/22 03/04/22 03/05/22 03/06/22 23:59 23:59 23:59 23:59 Intake Total 200 2150 Output Total 300 350 Balance -100 1800 Meds/Results Medications: Active Medications Generic Name Dose Route Start Last Admin Trade Name Freq PRN Reason Stop Dose Admin Albuterol 5 mg 03/05/22 08:00 03/06/22 14:42 Albuterol Sulfate Neb 2.5 Mg/3 Ml Inh INHALATION 5 mg Q6HRT GELA Administration Aspirin 81 mg 03/06/22 09:00 03/06/22 10:03 Aspirin 81 Mg Chewable Tablet PO 81 mg DAILY GELA Administration Diazepam 10 mg 03/05/22 15:49 03/06/22 06:14 Diazepam (*Crx) 5 Mg Tablet FEED TUBE 10 mg TID PRN Administration
[2022-03-06] MEDS: BISACODYL 10 MG SUPPOSITORY RECTAL (18:41)
[2022-03-06] MEDS: polyethylene glycoL 3350 17 GM POWD.PACK FEED TUBE (18:43)
[2022-03-06] MEDS: ZOLPIDEM TARTRATE (*CRX) 5 MG TABLET 10 MG FEED TUBE (22:04)
[2022-03-07] VITALS (14 sets, daily range): BP systolic 100–145; BP diastolic 59–84; PULSE 77–86; RESP 18–21; TEMP 36.6–36.8; O2SAT 96–100
[2022-03-07] MEDS: ALBUTEROL SULFATE NEB 2.5 MG/3 ML INH 5 MG INHALATION ×4 (02:15→21:48)
[2022-03-07] MEDS: DEXTROSE 5%/0.9% SOD CHL 1,000 ML 100 ML IV CONT ×2 (02:23→14:21)
[2022-03-07] MEDS: diazePAM (*CRX) 5 MG TABLET 10 MG FEED TUBE (05:09)
[2022-03-07 05:10] LABS: Basophils Percent Auto 0.2 % (0.2-1.2); Eosinophils Absolute Auto 0.1 K/mm3 (0-0.3); Eosinophils Percent Auto 1.9 % (0-4.4); Hematocrit 34.1 % (42.0-52.0); Hemoglobin 11.1 g/dL (14.0-18.0); Immature Granulocyte Absolute 0.01 K/mm3 (0.00-0.031); Immature Granulocyte Percent A 0.2 % (0-0.5); Lymphocytes Absolute Auto 0.33 K/mm3 (0.9-3.2); Lymphocytes Percent Auto 7.7 % (18.3-44.2); Mean Corpuscular HGB Conc 32.6 g/dl (32-36); Mean Corpuscular Hemoglobin 33.1 pg (26-34); Mean Corpuscular Volume 101.8 fl (80-100); Monocytes Absolute Auto 0.3 K/mm3 (0.1-0.6); Monocytes Percent Auto 7.2 % (2.6-8.5); Neutrophils Absolute Auto 3.6 K/mm3 (1.3-6.7); Neutrophils Percent Auto 82.8 % (45.5-73.1); Platelet Count Result 115 k/mm3 (150-375); Red Blood Count 3.35 M/mm3 (4.6-6.20); Red Cell Distribution Width 13.7 % (11.5-14.5); White Blood Count 4.3 K/mm3 (4.5-10.0)
[2022-03-07 05:30] LABS: Alanine Aminotransferase 16 U/L (6-50); Albumin Level 3.2 g/dL (3.5-5.1); Alkaline Phosphatase 45 U/L (38-126); Anion Gap 2 mmol/L (8-16); Aspartate Amino Transferase 18 U/L (17-59); Bilirubin,Total 0.7 mg/dL (0.2-1.3); Blood Urea Nitrogen 15 mg/dL (9-20); Calcium 7.7 mg/dL (8.4-10.2); Carbon Dioxide 28 mmol/L (22-30); Chloride 106 mmol/L (98-107); Estimated CRCL calculation 86 ml/min; Estimated Glomerular Filt Rate > 60; Glucose 125 mg/dL (65-110); Magnesium 2.1 mg/dL (1.6-2.3); Potassium 3.2 mmol/L (3.4-5.0); Sodium 136 mmol/L (137-145)
[2022-03-07] MEDS: FINASTERIDE 5 MG TABLET FEED TUBE (09:23)
[2022-03-07] MEDS: ASPIRIN 81 MG CHEWABLE TABLET PO (09:23)
[2022-03-07] MEDS: polyethylene glycoL 3350 17 GM POWD.PACK FEED TUBE (09:23)
--- NOTE | 2022-03-07 13:09 | PM.IMPN ---
Progress Note: A&P Assessment and Plan (1) Pneumonia: Code(s): J18.9 - Pneumonia, unspecified organism Status: Acute (2) Nausea & vomiting: Code(s): R11.2 - Nausea with vomiting, unspecified Status: Acute (3) Atrial fibrillation: Code(s): I48.91 - Unspecified atrial fibrillation Status: Acute (4) History of throat cancer: Code(s): Z85.819 - Personal history of malignant neoplasm of unspecified site of lip, oral cavity, and pharynx Status: Acute Plan IV fluid resuscitation Monitor lactic acid levels Repeat CBC CMP Two sets of Blood cultures pending No more nausea vomited noted IV antibiotics Zosyn G-tube feeding as advised by dietitian. Repeat chest x-ray tomorrow. Left lower lobe pneumonia secondary to aspiration. History of throat cancer status post treatment History of BPH for which he takes Proscar. Currently on aspirin for AFib not on any chronic anticoagulation. Will monitor H&H current hemoglobin of 11.1 Time Spent With Patient Time: DVT prophylaxis. GI prophylaxis. All records reviewed Discussed plan of care with the nursing staff and with the patient in detail. Answered all questions and concerns from the patient. All labs have been reviewed. Code status updated dictation may have been done utilizing a voice recognition system. Attempts have been made to correct errors. However, there may be uncorrected grammatical, spelling, and recognition errors present. Subjective Date/time seen: 03/07/22 13:09 Interval history: No new complaint Exam Narrative: GENERAL: Well appearing, well-nourished, non-toxic, in no acute distress. HEAD: Normocephalic, atraumatic. NECK: Supple. No adenopathy, no masses. RESPIRATORY: Airway patent, respirations nonlabored. Clear to auscultation bilaterally, no rales, rhonchi, wheezing. CARDIOVASCULAR: Regular rate and rhythm without murmurs, rubs, or gallops. Peripheral pulses 2+ and equal bilaterally. ABDOMINAL: Soft, nontender, nondistended, no hepatosplenomegaly. Normoactive BS. MUSCULOSKELETAL: no Epigastric and no hypochondrial tenderness SKIN: Warm, dry, normal color. No rashes. NEURO: A&O X3. Moves all extremities PSYCHIATRIC: Appropriate mood and affect. Normal interaction. Objective Data Vital Signs Vital Signs: Vital Signs - 24 hr 03/06/22 14:43 03/06/22 14:00 03/06/22 21:17 Temperature 37.4 C Pulse Rate 85 105 H Respiratory Rate 18 18 Blood Pressure 108/62 Pulse Oximetry 97 98 Oxygen Delivery Nasal Cannula Oxygen Flow Rate 2 03/06/22 21:19 03/06/22 22:51 03/07/22 02:17 Temperature 37.0 C Pulse Rate 86 94 80 Respiratory Rate 18 20 18 Blood Pressure 113/64 Pulse Oximetry 98 Oxygen Delivery Oxygen Flow Rate 03/06/22 21:32 03/07/22 02:27 03/07/22 06:00 Temperature 36.6 C Pulse Rate 80 81 86 Respiratory Rate 18 18 21 H Blood Pressure 100/59 L Pulse Oximetry 100 Oxygen Delivery Oxygen Flow Rate 03/07/22 08:37 03/07/22 08:43 03/07/22 08:48 Temperature Pulse Rate 86 79 Respiratory Rate 18 18 Blood Pressure Pulse Oximetry 96 Oxygen Delivery Nasal Cannula Oxygen Flow Rate 2 03/07/22 09:43 Temperature Pulse Rate Respiratory Rate Blood Pressure Pulse Oximetry 96 Oxygen Delivery Nasal Cannula Oxygen Flow Rate 2 Intake/Output Intake/Output: Intake & Output 03/04/22 03/05/22 03/06/22 03/07/22 23:59 23:59 23:59 23:59 Intake Total 200 2250 1783 Output Total 300 550 600 Balance -100 1700 1183 Meds/Results Medications: Active Medications Generic Name Dose Route Start Last Admin Trade Name Freq PRN Reason Stop Dose Admin Albuterol 5 mg 03/05/22 08:00 03/07/22 08:40 Albuterol Sulfate Neb 2.5 Mg/3 Ml Inh INHALATION 5 mg Q6HRT GELA Administration Aspirin 81 mg 03/06/22 09:00 03/07/22 09:23 Aspirin 81 Mg Chewable Tablet PO 81 mg DAILY GELA Administration Diazepam 10 m
[2022-03-07] MEDS: ZOLPIDEM TARTRATE (*CRX) 5 MG TABLET 10 MG FEED TUBE (22:30)
[2022-03-08] VITALS (13 sets, daily range): BP systolic 114–149; BP diastolic 64–89; PULSE 74–95; RESP 18; TEMP 36.4–37.1; O2SAT 96–99
[2022-03-08] MEDS: DEXTROSE 5%/0.9% SOD CHL 1,000 ML 100 ML IV CONT ×3 (01:55→23:10)
[2022-03-08] MEDS: ALBUTEROL SULFATE NEB 2.5 MG/3 ML INH 5 MG INHALATION ×4 (02:54→20:25)
[2022-03-08 05:26] LABS: Hematocrit 32.9 % (42.0-52.0); Hemoglobin 10.9 g/dL (14.0-18.0); Mean Corpuscular HGB Conc 33.1 g/dl (32-36); Mean Corpuscular Hemoglobin 32.5 pg (26-34); Mean Corpuscular Volume 98.2 fl (80-100); Mean Platelet Volume 12.2 fl (7.4-10.4); Platelet Count Result 140 k/mm3 (150-375); Red Blood Count 3.35 M/mm3 (4.6-6.20); Red Cell Distribution Width 13.2 % (11.5-14.5); White Blood Count 4.4 K/mm3 (4.5-10.0)
[2022-03-08 05:28] LABS: Alanine Aminotransferase 16 U/L (6-50); Albumin Level 2.9 g/dL (3.5-5.1); Alkaline Phosphatase 44 U/L (38-126); Anion Gap 2 mmol/L (8-16); Aspartate Amino Transferase 19 U/L (17-59); Bilirubin,Total 0.5 mg/dL (0.2-1.3); Blood Urea Nitrogen 10 mg/dL (9-20); Calcium 7.6 mg/dL (8.4-10.2); Carbon Dioxide 29 mmol/L (22-30); Chloride 105 mmol/L (98-107); Estimated CRCL calculation 99 ml/min; Estimated Glomerular Filt Rate > 60; Glucose 116 mg/dL (65-110); Potassium 3.1 mmol/L (3.4-5.0); Sodium 136 mmol/L (137-145)
[2022-03-08] MEDS: diazePAM (*CRX) 5 MG TABLET 10 MG FEED TUBE (06:20)
[2022-03-08] MEDS: FINASTERIDE 5 MG TABLET FEED TUBE (08:00)
[2022-03-08] MEDS: ASPIRIN 81 MG CHEWABLE TABLET PO (08:00)
[2022-03-08] MEDS: polyethylene glycoL 3350 17 GM POWD.PACK FEED TUBE (08:00)
--- NOTE | 2022-03-08 11:10 | PM.IMPN ---
Progress Note: A&P Assessment and Plan (1) Pneumonia: Code(s): J18.9 - Pneumonia, unspecified organism Status: Acute (2) Nausea & vomiting: Code(s): R11.2 - Nausea with vomiting, unspecified Status: Acute (3) Atrial fibrillation: Code(s): I48.91 - Unspecified atrial fibrillation Status: Acute (4) History of throat cancer: Code(s): Z85.819 - Personal history of malignant neoplasm of unspecified site of lip, oral cavity, and pharynx Status: Acute Plan IV fluid resuscitation potassium given through G-tube Potassium 3.1 Monitor lactic acid levels Repeat CBC CMP Two sets of Blood cultures pending No more nausea vomited noted IV antibiotics Zosyn G-tube feeding as advised by dietitian. Repeat chest x-ray shows worsening but clinically patient is better. Left lower lobe pneumonia secondary to aspiration. History of throat cancer status post treatment History of BPH for which he takes Proscar. Currently on aspirin for AFib not on any chronic anticoagulation. Will monitor H&H currently stable Patient advance to bolus feeding Time Spent With Patient Time: DVT prophylaxis. GI prophylaxis. All records reviewed Discussed plan of care with the nursing staff and with the patient in detail. Answered all questions and concerns from the patient. All labs have been reviewed. Code status updated dictation may have been done utilizing a voice recognition system. Attempts have been made to correct errors. However, there may be uncorrected grammatical, spelling, and recognition errors present. Subjective Date/time seen: 03/08/22 11:10 Interval history: New just came from x-ray Exam Narrative: GENERAL: Well appearing, well-nourished, non-toxic, in no acute distress. HEAD: Normocephalic, atraumatic. NECK: Supple. No adenopathy, no masses. RESPIRATORY: Airway patent, respirations nonlabored. Clear to auscultation bilaterally, no rales, rhonchi, wheezing. CARDIOVASCULAR: Regular rate and rhythm without murmurs, rubs, or gallops. Peripheral pulses 2+ and equal bilaterally. ABDOMINAL: Soft, nontender, nondistended, no hepatosplenomegaly. Normoactive BS. MUSCULOSKELETAL: no Epigastric and no hypochondrial tenderness SKIN: Warm, dry, normal color. No rashes. NEURO: A&O X3. Moves all extremities PSYCHIATRIC: Appropriate mood and affect. Normal interaction. Objective Data Vital Signs Vital Signs: Vital Signs - 24 hr 03/07/22 14:18 03/07/22 14:26 03/07/22 14:00 Temperature 36.6 C Pulse Rate 79 78 77 Respiratory Rate 18 18 18 Blood Pressure 145/84 H Pulse Oximetry 100 Oxygen Delivery Oxygen Flow Rate 03/07/22 21:50 03/07/22 21:51 03/07/22 22:17 Temperature 36.8 C Pulse Rate 78 80 Respiratory Rate 18 21 H Blood Pressure 142/82 H Pulse Oximetry 97 100 Oxygen Delivery Nasal Cannula Oxygen Flow Rate 2 03/08/22 02:56 03/07/22 22:03 03/08/22 03:08 Temperature Pulse Rate 74 79 77 Respiratory Rate 18 18 18 Blood Pressure Pulse Oximetry Oxygen Delivery Oxygen Flow Rate 03/08/22 06:33 03/08/22 09:03 03/08/22 09:04 Temperature 37.1 C Pulse Rate 95 76 Respiratory Rate 18 18 Blood Pressure 114/64 Pulse Oximetry 96 97 Oxygen Delivery Nasal Cannula Oxygen Flow Rate 2 Intake/Output Intake/Output: Intake & Output 03/05/22 03/06/22 03/07/22 03/08/22 23:59 23:59 23:59 23:59 Intake Total 200 2250 3120 1474 Output Total 038 441 6008 1150 Balance -100 1700 1720 324 Meds/Results Medications: Active Medications Generic Name Dose Route Start Last Admin Trade Name Freq PRN Reason Stop Dose Admin Acetaminophen 325 mg 03/08/22 10:53 Acetaminophen Elixir 325 Mg/10.15 Ml Udc FEED TUBE Q6H PRN Mild Pain (1-3) or Fever Albuterol 5 mg 03/05/22 08:00 03/08/22 09:01 Albuterol Sulfate Neb 2.5 Mg/3 Ml Inh INHALATION 5 mg Q6HRT GELA Administration Aspirin 81 mg 02/18
--- NOTE | 2022-03-08 11:15 | PCNFU ---
Nutrition Follow-Up Complete: Swallowing Difficulties as related to Dysphagia as evidenced by PEG tube feedings. Goal: Meet estimated nutritional needs Patient is progressing towards goal. We will continue current goal. Pt current nutrition is Jevity 1.5 at 20 ml/hr . Last recorded weight is 70.1 kg. Bowel Motility:+BM reported 03/07 Labs Reviewed:Glu 116,Cr 0.6,Na 136, Alb 2.9, Hct 32.9 Meds Noted:Miralax, Ambien Skin: WNL Additional Notes: Patient current with PEG tube feedings of Jevity 1.5 at 20 ml/hr. Changing over to bolus feedings today. Discussed with patient bolus of 1.5 would be 360 ml-5 x daily, providing 2700 kcals/115 gms protein/1368 ml water. Flush 150 ml with feedings. Meeting 100% of kcal and protein needs. Agree with diet orders. Will monitor every Saturday and Saturday.
[2022-03-08] MEDS: ACETAMINOPHEN ELIXIR 325 MG/10.15 ML UDC FEED TUBE (11:17)
[2022-03-08] MEDS: POTASSIUM CHLORIDE 20 MEQ PACKET (FOR LIQUID) 40 MEQ PO (11:19)
--- NOTE | 2022-03-08 15:50 | PC.NURSE ---
On 03/08/22, the student, [Jagruti Santamaria], provided care and [facility]. I have reviewed the student's documentation and agree with the findings.
[2022-03-08] MEDS: ZOLPIDEM TARTRATE (*CRX) 5 MG TABLET 10 MG FEED TUBE (22:06)
[2022-03-09] VITALS (9 sets, daily range): BP systolic 132–135; BP diastolic 86–87; PULSE 71–95; RESP 16–20; TEMP 36.8–37.1; O2SAT 95–96
[2022-03-09] MEDS: FINASTERIDE 5 MG TABLET FEED TUBE (08:07)
[2022-03-09] MEDS: ASPIRIN 81 MG CHEWABLE TABLET PO (08:07)
--- NOTE | 2022-03-09 08:30 | PCPTNOTE ---
Attempted to see patient for PT, however patient declined and asked if PT can come back.
[2022-03-09] MEDS: ALBUTEROL SULFATE NEB 2.5 MG/3 ML INH 5 MG INHALATION ×3 (08:39→20:17)
--- NOTE | 2022-03-09 08:45 | PCRCNOTE ---
Pt stated that on 03/08/2022 his nurse took him off O2. Will leave on RA unless sat declines.
--- NOTE | 2022-03-09 11:11 | PCNFU ---
Nutrition Follow-Up Complete: Swallowing Difficulties as related to Dysphagia as evidenced by PEG tube feedings. Goal: Meet estimated nutritional needs patient is progressing towards goal. Pt current nutrition is Jevity 1.5 360 ml-5 x daily bolus feedings. Last recorded weight is 70.1 kg. Bowel Motility: Last BM documented 03/07 Labs Reviewed:Cr 0.6, Na 136, K 3.1, Alb 2.9 Meds Noted:Miralax, Zosyn. Skin: WNL Additional Notes: Nutrition follow up. Patient was getting bolus feedings during my assessment today. Tolerating tube feedings of Jevity 1.5. Total nutrition from tube feedings 2700/115 gm protein/1368 ml water. Flush 150 ml with feedings. Agree with diet orders. Monitoring: Will monitor every Saturday and Saturday.
[2022-03-09] MEDS: POTASSIUM CHLORIDE 20 MEQ PACKET (FOR LIQUID) 40 MEQ PO (11:13)
--- NOTE | 2022-03-09 11:45 | PM.IMPN ---
Progress Note: A&P Assessment and Plan (1) Pneumonia: Code(s): J18.9 - Pneumonia, unspecified organism Status: Acute (2) Nausea & vomiting: Code(s): R11.2 - Nausea with vomiting, unspecified Status: Acute (3) Atrial fibrillation: Code(s): I48.91 - Unspecified atrial fibrillation Status: Acute (4) History of throat cancer: Code(s): Z85.819 - Personal history of malignant neoplasm of unspecified site of lip, oral cavity, and pharynx Status: Acute Plan IV fluid resuscitation potassium given through G-tube Potassium 3.1 Monitor lactic acid levels Repeat CBC CMP Two sets of Blood cultures pending No more nausea vomited noted IV antibiotics Zosyn G-tube feeding as advised by dietitian. 03/08/2021 chest x-ray shows worsening but clinically patient is better. repeat x-ray again in the morning possible discharge home tomorrow Left lower lobe pneumonia secondary to aspiration. History of throat cancer status post treatment History of BPH for which he takes Proscar. Currently on aspirin for AFib not on any chronic anticoagulation. Will monitor H&H currently stable Patient advance to bolus feeding Time Spent With Patient Time: DVT prophylaxis. GI prophylaxis. All records reviewed Discussed plan of care with the nursing staff and with the patient in detail. Answered all questions and concerns from the patient. All labs have been reviewed. Code status updated dictation may have been done utilizing a voice recognition system. Attempts have been made to correct errors. However, there may be uncorrected grammatical, spelling, and recognition errors present. Subjective Date/time seen: 03/09/22 11:45 Exam Narrative: GENERAL: Well appearing, well-nourished, non-toxic, in no acute distress. HEAD: Normocephalic, atraumatic. NECK: Supple. No adenopathy, no masses. RESPIRATORY: Airway patent, respirations nonlabored. Clear to auscultation bilaterally, no rales, rhonchi, wheezing. CARDIOVASCULAR: Regular rate and rhythm without murmurs, rubs, or gallops. Peripheral pulses 2+ and equal bilaterally. ABDOMINAL: Soft, nontender, nondistended, no hepatosplenomegaly. Normoactive BS. MUSCULOSKELETAL: no Epigastric and no hypochondrial tenderness SKIN: Warm, dry, normal color. No rashes. NEURO: A&O X3. Moves all extremities PSYCHIATRIC: Appropriate mood and affect. Normal interaction. Objective Data Vital Signs Vital Signs: Vital Signs - 24 hr 03/08/22 13:25 03/08/22 13:33 03/08/22 14:00 Temperature 36.6 C Pulse Rate 75 75 87 Respiratory Rate 18 18 18 Blood Pressure 136/80 Pulse Oximetry 99 Oxygen Delivery 03/08/22 18:51 03/08/22 20:26 03/08/22 20:26 Temperature Pulse Rate 82 82 Respiratory Rate 18 18 Blood Pressure Pulse Oximetry 97 97 Oxygen Delivery Room Air Room Air 03/08/22 20:41 03/08/22 21:36 03/09/22 08:41 Temperature 36.4 C L Pulse Rate 79 80 83 Respiratory Rate 18 18 20 Blood Pressure 149/89 H Pulse Oximetry 96 Oxygen Delivery 03/09/22 08:51 Temperature Pulse Rate 86 Respiratory Rate 18 Blood Pressure Pulse Oximetry Oxygen Delivery Intake/Output Intake/Output: Intake & Output 03/06/22 03/07/22 03/08/22 03/09/22 23:59 23:59 23:59 23:59 Intake Total 2250 3120 4243 Output Total 550 1400 1350 1200 Balance 1700 1720 2893 -1200 Meds/Results Medications: Active Medications Generic Name Dose Route Start Last Admin Trade Name Freq PRN Reason Stop Dose Admin Acetaminophen 325 mg 03/08/22 10:53 03/08/22 11:17 Acetaminophen Elixir 325 Mg/10.15 Ml Udc FEED TUBE 325 mg Q6H PRN Administration Mild Pain (1-3) or Fever Albuterol 5 mg 03/05/22 08:00 03/09/22 08:39 Albuterol Sulfate Neb 2.5 Mg/3 Ml Inh INHALATION 5 mg Q6HRT GELA Administration Aspirin 81 mg 03/06/22 09:00 03/09/22 08:07 Aspirin 81 Mg Chewable Tablet PO 81 mg DAILY GELA Administrat
[2022-03-09] MEDS: DEXTROSE 5%/0.9% SOD CHL 1,000 ML 100 ML IV CONT ×2 (13:29→23:39)
[2022-03-09] MEDS: ONDANSETRON INJ 4 MG/2 ML VIAL IV PUSH (14:44)
--- NOTE | 2022-03-09 19:53 | PC.NURSE ---
Pt. does their own bolus tube feedings. However, pt. does not meet the 360ml goal with each bolus. Provider aware.
[2022-03-09] MEDS: diazePAM (*CRX) 5 MG TABLET 10 MG FEED TUBE (23:26)
[2022-03-09] MEDS: ZOLPIDEM TARTRATE (*CRX) 5 MG TABLET 10 MG FEED TUBE (23:26)
--- NOTE | 2022-03-10 01:05 | PC.NURSE ---
Prosper Fox ok'd home condom catheter for patient
[2022-03-10 02:22] VITALS: PULSE 70; RESP 16
[2022-03-10 05:38] LABS: Hematocrit 35.3 % (42.0-52.0); Hemoglobin 11.8 g/dL (14.0-18.0); Mean Corpuscular HGB Conc 33.4 g/dl (32-36); Mean Corpuscular Hemoglobin 32.6 pg (26-34); Mean Corpuscular Volume 97.5 fl (80-100); Mean Platelet Volume 11.1 fl (7.4-10.4); Platelet Count Result 170 k/mm3 (150-375); Red Blood Count 3.62 M/mm3 (4.6-6.20); White Blood Count 4.7 K/mm3 (4.5-10.0)
[2022-03-10 05:51] LABS: Alanine Aminotransferase 17 U/L (6-50); Albumin Level 3.2 g/dL (3.5-5.1); Alkaline Phosphatase 49 U/L (38-126); Anion Gap 2 mmol/L (8-16); Aspartate Amino Transferase 19 U/L (17-59); Bilirubin,Total 0.6 mg/dL (0.2-1.3); Blood Urea Nitrogen 7 mg/dL (9-20); Calcium 7.9 mg/dL (8.4-10.2); Carbon Dioxide 29 mmol/L (22-30); Chloride 101 mmol/L (98-107); Estimated CRCL calculation 86 ml/min; Estimated Glomerular Filt Rate > 60; Glucose 97 mg/dL (65-110); Potassium 3.5 mmol/L (3.4-5.0); Sodium 132 mmol/L (137-145)
[2022-03-10 06:00] VITALS: BP 101/63; PULSE 84; RESP 16; TEMP 36.8; O2SAT 97
[2022-03-10] MEDS: ASPIRIN 81 MG CHEWABLE TABLET PO (08:43)
[2022-03-10] MEDS: POTASSIUM CHLORIDE 20 MEQ PACKET (FOR LIQUID) 40 MEQ PO (08:43)
[2022-03-10] MEDS: FINASTERIDE 5 MG TABLET FEED TUBE (08:43)
[2022-03-10 09:10] VITALS: PULSE 88; RESP 20; O2SAT 95
[2022-03-10] MEDS: ALBUTEROL SULFATE NEB 2.5 MG/3 ML INH 5 MG INHALATION (09:10)
[2022-03-10 09:27] VITALS: PULSE 78; RESP 20
--- NOTE | 2022-03-10 09:54 | PM.DS ---
DS: Admitting Diagnosis Discharge Date March 10, 2022 Admitting Diagnosis shortness of breath and cough DS: Discharge Diagnosis Discharge Diagnosis (1) Gastrostomy tube dependent: Code(s): Z93.1 - Gastrostomy status Status: Acute (2) Pneumonia: Code(s): J18.9 - Pneumonia, unspecified organism Status: Acute (3) Atrial fibrillation: Code(s): I48.91 - Unspecified atrial fibrillation Status: Acute (4) Nausea & vomiting: Code(s): R11.2 - Nausea with vomiting, unspecified Status: Acute DS: Summary Hospital Course Hospital Course: his is a 66-year-old male with history of esophageal cancer diagnosed approximately 5 years ago status post surgery and radiation therapy and severe dysphagia NPO status history of multiple aspiration pneumonia? and status post G-tube placement.? He presents today feeling increasingly weak and had several episodes nausea vomiting.? Was only able to give 1 can of his tube feed.? He has not had any bowel movement since a week.? Denies any past flatus.? He reports some abdominal pain.? X-ray done which showed left mid and lower lobe pneumonia and was given some antibiotics. patient was started on Zosyn. Patient's COVID and RSV negative. Patient has done well during hospital stay patient blood count is back to normal chest x-ray still shows some residual left lower lobe pneumonia. Patient can be discharged home on Augmentin. Patient also was noted to have potassium 3.1 will send script for that as well. Patient is back to his bolus feeding 2 times a day ready for discharge. Patient to follow-up with the primary care physician in about 1 week. Scripts have been called Time Spent with Patient Time attestation: Total time spent providing and/or coordinating discharge services: Exam Narrative: GENERAL: Well appearing, well-nourished, non-toxic, in no acute distress. HEAD: Normocephalic, atraumatic. NECK: Supple. No adenopathy, no masses. RESPIRATORY: Airway patent, respirations nonlabored. Clear to auscultation bilaterally, no rales, rhonchi, wheezing. CARDIOVASCULAR: Regular rate and rhythm without murmurs, rubs, or gallops. Peripheral pulses 2+ and equal bilaterally. ABDOMINAL: Soft, nontender, nondistended, no hepatosplenomegaly. Normoactive BS. feeding tube in place MUSCULOSKELETAL: no Epigastric and no hypochondrial tenderness SKIN: Warm, dry, normal color. No rashes. NEURO: A&O X3. Moves all extremities PSYCHIATRIC: Appropriate mood and affect. Normal interaction. DS: Data Data Completed and Pending Labs on day of discharge: Labs from last 24 hours 03/10/22 03/10/22 05:19 05:19 WBC 4.7 RBC 3.62 L Hgb 11.8 L Hct 35.3 L MCV 97.5 MCH 32.6 MCHC 33.4 RDW 13.0 Plt Count 170 MPV 11.1 H Sodium 132 L Potassium 3.5 Chloride 101 Carbon Dioxide 29 Anion Gap 2 L BUN 7 L Creatinine 0.70 Estim Creat Clear Calc 86 Estimated GFR > 60 Glucose 97 Calcium 7.9 L Total Bilirubin 0.6 AST 19 ALT 17 Alkaline Phosphatase 49 Total Protein 6.0 L Albumin 3.2 L Preliminary micro results at discharge 03/05/22 03:17 Blood Culture - Preliminary Blood 03/05/22 03:17 Blood Culture - Preliminary Blood Discharge Plan Discharge Discharging Clinician: Augusto Siegel Patient Disposition: Home, Self-Care Activity: as tolerated Diet: tube feeding Patient Instructions: Antibiotic Form Stand Alone Forms: General Discharge Information Follow-up/Referrals: Green,Jaya Young MD [Primary Care Provider] - 1 Week Discharge Medications: New amoxicillin-pot clavulanate [Augmentin] 250-62.5 mg/5 mL suspension for reconstitution 10 ml PO Q8H 7 Days Qty: 210 0RF potassium chloride 40 mEq/15 mL liquid 40 meq PO DAILY 3 Days Qty: 45 0RF Continued aspirin 81 mg Tablet 81 mg PO DAILY Rx Instructions: Taken viua FEEDING TUBE finasteride [Proscar] 5
== END 2022-03-10 12:10 | disposition home or self-care (01) | DRG 179 ==
LOC: ANHED 03:33 → ANH2MED 06:03
PROVIDERS: Internal Medicine; Admitting Provider Internal Medicine; Emergency Provider Emergency Medicine; PCP Internal Medicine; Visit Provider Internal Medicine
DX: J69.0 Pneumonitis due to inhalation of food and vomit (principal); R13.10 Dysphagia, unspecified; E03.9 Hypothyroidism, unspecified; I48.91 Unspecified atrial fibrillation; J43.9 Emphysema, unspecified; K21.9 Gastro-esophageal reflux disease without esophagitis; N40.0 Benign prostatic hyperplasia without lower urinary tract symptoms; Q05.9 Spina bifida, unspecified; Z20.822 Contact with and (suspected) exposure to COVID-19; Z28.21 Immunization not carried out because of patient refusal; Z85.01 Personal history of malignant neoplasm of esophagus; Z93.1 Gastrostomy status; Z92.3 Personal history of irradiation; Z79.82 Long term (current) use of aspirin
CPT/HCPCS: 36415; 71045; 71046; 71250; 74176; 80053; 83690; 83735; 85025; 85027; 87040; 87637; 94640; 96361; 96365; 96366; 96367; 96375; 97110; 97161; 97165; 97530; 97535; 99285; A9270; G0378; J0295; J2405; J2543; J7030; J7042

== ENCOUNTER 2022-03-28 10:18 | Outpatient (CLI) | payer MEDICARE, OTHER, SELFPAY ==
--- NOTE | 2022-03-28 11:00 | NEURO_ITS ---
Impression: # Complains of burning sensation and generalized weakness. 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 # Bilateral Carpal Tunnel Syndrome superimposed on underlying neuropathic process. # Needle/EMG exam neurogenic particularly in left upper extremity proximally; Possibility of cervical pathology needs to be rule out. Motor Nerve Conduction Upper Extremities Median Nerve Conduction Velocity (m/sec) Terminal Latency (msec) Response Voltage(mV) Elbow-Wrist Wrist Elbow Wrist Right 56 4.8 2 2 Left 52 5.5 2 2 Ulnar Nerve Conduction Velocity (m/sec) Terminal Latency (msec) Response Voltage(mV) Above Elbow Below Elbow Wrist Above Elbow Below Elbow Wrist Right 56 3.2 6 7 Left 54 3.0 4 5 F-Wave Latency Median (ms) Ulnar (ms) Right 31.6 32.1 Left 31.6 33.7 Sensory Nerve Conduction Upper Extremities Median Nerve Stimulation Terminal Latency (msec) Wrist/Digit Response Voltage (uV) Wrist Right 5.0/4.7 9/16 Left 5.3/4.8 13/25 Ulnar Nerve Stimulation Terminal Latency (msec) Wrist/Digit Response Voltage (uV) Wrist Right 2.4 36 Left 3.5 47 Radial Nerve Terminal Latency (msec) Response Voltage(mV) Right 2.6 9 Left 2.7 9 Left Right Muscles Examined Fibrillation Fasciculation Scarcity Voltage Duration Left Right Left Right Left Right Left Right Left Right X X Deltoid X X Biceps X X Brachioradialis X X Triceps X X Pronator Teres X X Ext Indicis X X Ext Digitorum X X Abd Poll Brev X X 1st Dorsal Interosseus X X Abd Dig Min MTDD
== END 2022-03-28 10:19 | disposition home or self-care (01) ==
LOC: ANHNEURO 10:19
PROVIDERS: PCP Internal Medicine; Visit Provider Internal Medicine
DX: M47.12 Other spondylosis with myelopathy, cervical region (principal); G56.03 Carpal tunnel syndrome, bilateral upper limbs
CPT/HCPCS: 95886; 95911

== ENCOUNTER 2022-05-18 18:45 | Inpatient (IN) | payer MEDICARE, OTHER, SELFPAY ==
--- NOTE | ~2022-05-18 | XR_ITS ---
EXAMINATION: XR chest 2V DATE: 05/18/2022 19:27 INDICATION: Possible aspiration TECHNIQUE: PA and lateral views of the chest are obtained. COMPARISON: 03/10/2022 FINDINGS: There are minimal airspace opacities in the right lower lung zone. No pleural effusion or p neumothorax. The cardiomediastinal silhouette is normal. There is mild thoracic spondylosis. Surgical clips project over the right lung apex and in the right neck. IMPRESSION: 1. Minimal airspace opacities of the right lower lung zone, consistent with atelectasis versus pneumo domo. Reviewed, dictated and finalized at location F. IMPRESSION: 1. Minimal airspace opacities of the right lower lung zone, consistent with ate lectasis versus pneumonia.
--- NOTE | ~2022-05-18 | XR_ITS ---
EXAMINATION: XR abdomen/kub 1V DATE: 05/19/2022 10:12 INDICATION: Abdominal pain and vomiting. TECHNIQUE: A supine view of the abdomen on 2 radiographs was obtained. COMPARISON: CT abdomen and pelvis 03/05/22 FINDINGS: There are no dilated loops of bowel. There is a moderate volume of stool in the colon. Ther e is a gastrostomy tube in expected position. There is a 3 mm stone in left kidney. IMPRESSION: 1. Nonobstructive bowel gas pattern. Reviewed, dictated and finalized at location A.
--- NOTE | ~2022-05-18 | XR_ITS ---
EXAMINATION: XR abdomen/kub 1V DATE: 05/20/2022 09:28 INDICATION: Abdominal pain. Nausea and vomiting. TECHNIQUE: A supine view of the abdomen on 2 radiographs was obtained. COMPARISON: Abdomen radiographs 05/19/2022, CT abdomen and pelvis 03/05/22 FINDINGS: There are no dilated loops of bowel. A gastrostomy tube overlies the stomach. There is a mo derate volume of stool in the distal colon. There is a 3 mm stone in left kidney. IMPRESSION: 1. Nonobstructive bowel gas pattern. Reviewed, dictated and finalized at location A.
[2022-05-18 18:49] VITALS: BP 150/91; PULSE 93; RESP 18; TEMP 37; O2SAT 99
--- NOTE | 2022-05-18 19:22 | ED.GENADULT ---
HPI - General Adult General Chief complaint: Nausea/Vomiting/Diarrhea Stated complaint: possible aspiration after vomiting Time Seen by Provider: 05/18/22 19:08 History of Present Illness HPI narrative: 66-year-old male with history of esophageal cancer that is G-tube dependent presented the emergency department for evaluation for suspected aspiration pneumonia. Patient reports last night as he was going to bed he had 5 episodes of emesis. Patient states it was yellow in color. Patient reports that he does have a history of aspiration pneumonia. Patient suspects he did aspirate. Patient states after the emesis he did have a burning of esophagus and the burning into his chest. Patient denies any current shortness of breath. Does have a significant history of aspiration pneumonia. Related Data Home Medications Medication Instructions Recorded Confirmed zolpidem 10 mg tablet 10 mg feeding tube HS PRN Sleep 09/07/21 05/19/22 finasteride 5 mg tablet (Proscar) 5 mg feeding tube DAILY 03/05/22 05/19/22 diazepam 10 mg tablet (Valium) 15 mg PO TID PRN Sleep 05/19/22 05/19/22 ondansetron HCl 4 mg tablet 4 mg feeding tube Q3-4H PRN Acid 05/19/22 05/19/22 Reflux Allergies Allergy/AdvReac Type Severity Reaction Status Date / Time No Known Allergies Allergy Verified 04/09/22 09:33 Review of Systems Review of Systems: All systems reviewed & are unremarkable except as noted in HPI and below PMFSH Past Medical History Medical History Cervical spine disease Gastrostomy tube dependent GERD (gastroesophageal reflux disease) History of throat cancer XRT and surgery Hypothyroid Malfunction of gastrostomy tube Spina bifida as a child with surgery; residual 'bladder issues' Surgical History Surgical History History of ear, nose, and throat (ENT) surgery Family History Family History Mother Colon cancer Social History Social History Social History: Lives at home with . Never smoked. No alcohol and drug use. Full code. would be the Individual would make medical decisions for him if he is unable Smoking status: Never smoker Second hand tobacco smoke exposure: No Alcohol intake: never Substance use: never Substance use type: does not use Lack of Transportation: No Lack of Food: Never True Current Housing: I Have Housing Concerned About Future Housing: No Difficulty Paying Gas/Electric Bills: No Difficulty Paying for Meds: No Currently Unemployed: No Education: Bachelor's Degree Difficulty w/ Childcare or Family Care: No Living arrangements: with family Gender identity (if verbalized by the patient): Male Sexual Orientation (if Verbalized by the Patient): Straight or Heterosexual Spiritual care concerns: No Agree to blood products: Yes Exam Narrative: APPEARANCE: Well appearing, no pain, no distress, well-nourished. HEAD: normocephalic, atraumatic. EYES: PERRLA/EOMI, conjunctivae clear. NOSE: Normal no drainage THROAT: Pharynx clear, no exudate. NECK: Supple. No adenopathy, no masses. RESPIRATORY: Airway patent, respirations nonlabored. Clear to auscultation bilaterally, no rales, rhonchi, wheezing. CARDIOVASCULAR: Regular rate and rhythm without murmurs rubs or gallops. ABDOMINAL: Soft, nontender, nondistended, normal bowel sounds MUSCULOSKELETAL: Moves all extremities. Strength/ROM intact, No edema, No calf tenderness. NEURO: Alert. Cranial nerves II through XII intact. SKIN: G-tube does have some irritation around the ostomy site, no evidence of infection Course Course Emergency Course: 66-year-old male presented to the ED for evaluation of possible aspiration pneumonia. Patient is afebrile and has no tachypnea, tachycardia or hypoxia. Pat
[2022-05-18 19:48] LABS: Basophils Percent Auto 0.4 % (0.2-1.2); Eosinophils Absolute Auto 0.1 K/mm3 (0-0.3); Eosinophils Percent Auto 1.6 % (0-4.4); Hematocrit 41.8 % (42.0-52.0); Hemoglobin 13.5 g/dL (14.0-18.0); Immature Granulocyte Absolute 0.03 K/mm3 (0.00-0.031); Immature Granulocyte Percent A 0.4 % (0-0.5); Lymphocytes Absolute Auto 0.72 K/mm3 (0.9-3.2); Lymphocytes Percent Auto 8.8 % (18.3-44.2); Mean Corpuscular HGB Conc 32.3 g/dl (32-36); Mean Corpuscular Hemoglobin 32.2 pg (26-34); Mean Corpuscular Volume 99.8 fl (80-100); Mean Platelet Volume 11.9 fl (7.4-10.4); Monocytes Absolute Auto 0.6 K/mm3 (0.1-0.6); Monocytes Percent Auto 7.8 % (2.6-8.5); Neutrophils Absolute Auto 6.7 K/mm3 (1.3-6.7); Platelet Count Result 155 k/mm3 (150-375); Red Blood Count 4.19 M/mm3 (4.6-6.20); Red Cell Distribution Width 13.4 % (11.5-14.5); White Blood Count 8.2 K/mm3 (4.5-10.0)
[2022-05-18 20:03] LABS: Alanine Aminotransferase 15 U/L (6-50); Albumin Level 4.5 g/dL (3.5-5.1); Alkaline Phosphatase 61 U/L (38-126); Anion Gap 7 mmol/L (8-16); Aspartate Amino Transferase 22 U/L (17-59); Bilirubin,Total 0.9 mg/dL (0.2-1.3); Blood Urea Nitrogen 32 mg/dL (9-20); Calcium 9.1 mg/dL (8.4-10.2); Carbon Dioxide 35 mmol/L (22-30); Chloride 99 mmol/L (98-107); Estimated CRCL calculation 78 ml/min; Estimated Glomerular Filt Rate > 60; Glucose 97 mg/dL (65-110); Potassium 4.1 mmol/L (3.4-5.0); Sodium 141 mmol/L (137-145)
[2022-05-18 20:24] LABS: Influenza A QL RT-PCR Negative (Negative); Influenza B QL RT-PCR Negative (Negative); RSV RNA, RT-PCR Negative (Negative); SARS-CoV-2 RNA PCR Negative
--- NOTE | 2022-05-18 21:31 | PC.NURSE ---
Ambulated patient with walking pulse ox, starting at 87% and then went to 94% but then dropped back down. Patient stated they were out of breath when finished.
[2022-05-18 21:34] VITALS: BP 163/100; PULSE 83; RESP 23; O2SAT 96
[2022-05-18] MEDS: PIPERACILLN/TAZ 3.375GM/NS50ML 3.375 GM/50 ML BAG IVPB (21:53)
[2022-05-18 22:27] VITALS: BP 133/89; PULSE 79; RESP 16; O2SAT 98
[2022-05-19 01:13] VITALS: BMI 21.4
[2022-05-19 01:15] VITALS: BP 150/100; PULSE 80; RESP 17; TEMP 37.1; O2SAT 98
[2022-05-19] MEDS: PIPERACILLN/TAZ 3.375GM/NS50ML 3.375 GM/50 ML BAG IVPB ×4 (03:14→20:32)
[2022-05-19] MEDS: diazePAM (*CRX) 5 MG TABLET 15 MG PO (03:15)
[2022-05-19] MEDS: SODIUM CHLORIDE 0.9% IV 1,000 ML 100 ML IV CONT ×3 (03:15→20:33)
[2022-05-19] MEDS: ZOLPIDEM TARTRATE (*CRX) 5 MG TABLET 10 MG FEED TUBE (03:23)
[2022-05-19 05:11] VITALS: BP 139/95; PULSE 75; RESP 18; TEMP 36.5; O2SAT 98
[2022-05-19] MEDS: FINASTERIDE 5 MG TABLET FEED TUBE (08:45)
[2022-05-19 09:18] VITALS: O2SAT 92
[2022-05-19 09:19] VITALS: O2SAT 92
[2022-05-19] MEDS: PANTOPRAZOLE SODIUM IV 40 MG VIAL IV PUSH (11:36)
--- NOTE | 2022-05-19 13:35 | PM.IMHP ---
H&P: HPI History of Present Illness Date/Time: 05/19/22 13:35 Chief Complaint: Suspected aspiration pneumonia Narrative: ED-HPI narrative: 66-year-old male with history of esophageal cancer that is G-tube dependent presented the emergency department for evaluation for suspected aspiration pneumonia.? Patient reports last night as he was going to bed he had 5 episodes of emesis.? Patient states it was yellow in color.? Patient reports that he does have a history of aspiration pneumonia.? Patient suspects he did aspirate.? Patient states after the emesis he did have a burning of esophagus and the burning into his chest.? Patient denies any current shortness of breath. 66-year-old male with history of esophageal cancer status post surgical repair and radiation therapy resulting in dysphagia and being fed with a G-tube patient states prior to coming to emergency depart he had vomited 5 times and felt that he may have aspirated, patient further states prior to this episode patient had been feeling nauseated and discomfort in his abdomen, patient describes vomitus as yellow and bitter, patient states his bowel movements are not regular, further evaluate KUB was done which did not show any sign of obstruction, patient remains clinically stable will resume patient G-tube feeding at 50% rate of his home therapy, patient be seen by GI and further recommendation to follow. For suspected aspiration pneumonia we have started the patient Zosyn however clinically patient does not have any sinus symptoms of pneumonia Patient admitted as inpatient with aspiration pneumonia will stay in the hospital for 2 midnights Review of Systems Review of Systems: All systems reviewed & are unremarkable except as noted in HPI and below PMFSH Past Medical History Medical History Cervical spine disease Gastrostomy tube dependent GERD (gastroesophageal reflux disease) History of throat cancer XRT and surgery Hypothyroid Malfunction of gastrostomy tube Spina bifida as a child with surgery; residual 'bladder issues' Surgical History Surgical History History of ear, nose, and throat (ENT) surgery Family History Family History Mother Colon cancer Social History Social History Social History: Lives at home with . Never smoked. No alcohol and drug use. Full code. would be the Individual would make medical decisions for him if he is unable Smoking status: Never smoker Second hand tobacco smoke exposure: No Alcohol intake: never Substance use: never Substance use type: does not use Lack of Transportation: No Lack of Food: Never True Current Housing: I Have Housing Concerned About Future Housing: No Difficulty Paying Gas/Electric Bills: No Difficulty Paying for Meds: No Currently Unemployed: No Education: Bachelor's Degree Difficulty w/ Childcare or Family Care: No Living arrangements: with family Gender identity (if verbalized by the patient): Male Sexual Orientation (if Verbalized by the Patient): Straight or Heterosexual Spiritual care concerns: No Agree to blood products: Yes Meds Home Medications and Allergies Home Medications Medication Instructions Recorded Confirmed Type zolpidem 10 mg tablet 10 mg feeding tube HS PRN Sleep 09/07/21 05/19/22 History finasteride 5 mg tablet (Proscar) 5 mg feeding tube DAILY 03/05/22 05/19/22 History diazepam 10 mg tablet (Valium) 15 mg PO TID PRN Muscle Spasm 05/19/22 05/19/22 History ondansetron HCl 4 mg tablet 4 mg feeding tube Q3-4H PRN Acid 05/19/22 05/19/22 History Reflux Allergies Allergy/AdvReac Type Severity Reaction Status Date / Time No Known Allergies Allergy Verified 04/09/22 09:33 Vital Signs Vital Signs - 24 hr 0
[2022-05-19 13:48] VITALS: BP 112/73; PULSE 76; RESP 16; TEMP 36.4; O2SAT 99
--- NOTE | 2022-05-19 14:48 | WPDGICN ---
Assessment and Plan Assessment and plan (1) Aspiration pneumonia: Qualifiers: Aspiration pneumonia type: unspecified Laterality: unspecified laterality Lung location: unspecified part of lung Qualified Code(s): J69.0 - Pneumonitis due to inhalation of food and vomit Code(s): J69.0 - Pneumonitis due to inhalation of food and vomit Status: Acute Assessment and Plan: high risk given previous radiation and surgery in neck on antibiotics he is comfortable, normal wbc, he is not requiring oxygen (2) N&V (nausea and vomiting): Qualifiers: Vomiting type: unspecified Qualified Code(s): R11.2 - Nausea with vomiting, unspecified Code(s): R11.2 - Nausea with vomiting, unspecified Status: Acute Assessment and Plan: resolved antiemetics prn ok to resume tube feeding but continue with aspiration precautions (3) 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 Status: Acute (4) Gastrostomy tube dependent: Code(s): Z93.1 - Gastrostomy status Status: Acute Assessment and Plan: he will follow-up with his regular gi doctor (5) History of throat cancer: Code(s): Z85.819 - Personal history of malignant neoplasm of unspecified site of lip, oral cavity, and pharynx Status: Acute GI Consult Note Consult date/time: 05/19/22 14:48 Reason for consult: aspiration pneumonia, s/p g-tube, esophageal cancer HPI: Mal Akhtar is a 66 year old male with throat cancer s/p surgery and radiation therapy that is G-tube dependent (originally placed about 5 years ago), he is seeing Dr Sykes as GI doctor and also ENT. He has previous history of aspiration pneumonia.?He came here after new onset of nausea with 5 episodes of emesis, it was yellow in color with large amount. He was worried about pneumonia and came to ER. KUB reviewed which did not show any sign of obstruction, CXR with minimal airspace opacities of the right lower lung zone, consistent with atelectasis versus pneumonia. Admitted to hospital and started on abx, he is doing better and just resumed his tube feeding again. Review of Systems Constitutional: Constitutional: Denies chills Eyes: Eyes: Denies blurry vision ENT: Reports Normal hearing present Cardiovascular: Cardiovascular: Denies chest pain Respiratory: Respiratory: Reports cough Gastrointestinal: Gastrointestinal: Reports vomiting Genitourinary: Genitourinary: Denies hematuria Musculoskeletal: Musculoskeletal: Denies myalgias Integumentary/Breasts: Skin/Breast: Denies dry skin Neurologic: Denies Abnormal speech present Psychiatric: Psychiatric: Denies confusion [facility] Past Medical History Medical History Cervical spine disease Gastrostomy tube dependent GERD (gastroesophageal reflux disease) History of throat cancer XRT and surgery Hypothyroid Malfunction of gastrostomy tube Spina bifida as a child with surgery; residual 'bladder issues' Surgical History Surgical History History of ear, nose, and throat (ENT) surgery Family History Family History Mother Colon cancer Social History Social History Social History: Lives at home with . Never smoked. No alcohol and drug use. Full code. would be the Individual would make medical decisions for him if he is unable Smoking status: Never smoker Second hand tobacco smoke exposure: No Alcohol intake: never Substance use: never Substance use type: does not use Lack of Transportation: No Lack of Food: Never True Current Housing: I Have Housing Concerned About Future Housing: No Difficulty Paying Gas/Electric Bills: No Difficulty Paying for Meds: No Currently Unemployed
--- NOTE | 2022-05-19 16:07 | PC.NURSE ---
This patient, Mal Akhtar, was admitted to [facility] Surg Room 313-01. Patient/family oriented to hospital policies and general routines including ID bracelet, bed and alarms, visiting hours, pain management, procedures, bathroom and other care routines, personal items, smoking policy, room service/diet, and visiting hours. Information on how to activate the Rapid Response Team has been discussed. Patient/Family are encouraged to report perceived risks to care and to ask questions if they do not understand what they are told or what they should do.
--- NOTE | 2022-05-19 18:19 | PC.NURSE ---
Pt manages tube feeding himself, I just observe every 4 hours while he boluses and flushes his g-tube.
[2022-05-19 22:00] VITALS: BP 148/89; PULSE 80; RESP 16; TEMP 36.6; O2SAT 96
[2022-05-20] MEDS: ZOLPIDEM TARTRATE (*CRX) 5 MG TABLET 10 MG FEED TUBE (00:26)
[2022-05-20] MEDS: diazePAM (*CRX) 5 MG TABLET 15 MG PO (00:26)
[2022-05-20] MEDS: PIPERACILLN/TAZ 3.375GM/NS50ML 3.375 GM/50 ML BAG IVPB ×4 (00:31→21:52)
--- NOTE | 2022-05-20 01:04 | PC.NURSE ---
Patient resting quietly in bed. Reporting some bloating and mild nausea at this time. notified of home med zofran needing restarted. Patient to hold off on last feeding of the night due to onset of symptoms. Will continue to monitor patient after zofran given per MD orders.
[2022-05-20] MEDS: ONDANSETRON INJ 4 MG/2 ML VIAL IV PUSH ×3 (01:32→22:01)
[2022-05-20 06:00] VITALS: BP 144/87; PULSE 95; RESP 18; TEMP 36.6; O2SAT 97
[2022-05-20 07:00] LABS: Hemoglobin 12.2 g/dL (14.0-18.0); Mean Corpuscular HGB Conc 32.1 g/dl (32-36); Mean Corpuscular Hemoglobin 31.4 pg (26-34); Mean Corpuscular Volume 97.9 fl (80-100); Mean Platelet Volume 12.1 fl (7.4-10.4); Platelet Count Result 134 k/mm3 (150-375); Red Blood Count 3.88 M/mm3 (4.6-6.20); White Blood Count 7.5 K/mm3 (4.5-10.0)
[2022-05-20 07:18] LABS: Anion Gap 5 mmol/L (8-16); Blood Urea Nitrogen 17 mg/dL (9-20); Calcium 7.9 mg/dL (8.4-10.2); Carbon Dioxide 28 mmol/L (22-30); Chloride 106 mmol/L (98-107); Estimated CRCL calculation 102 ml/min; Estimated Glomerular Filt Rate > 60; Glucose 91 mg/dL (65-110); Potassium 3.7 mmol/L (3.4-5.0); Sodium 139 mmol/L (137-145)
[2022-05-20] MEDS: SODIUM CHLORIDE 0.9% IV 1,000 ML 100 ML IV CONT (08:18)
[2022-05-20] MEDS: ENOXAPARIN 40 MG/0.4 ML SYRINGE SUB-Q (08:19)
[2022-05-20] MEDS: PANTOPRAZOLE SODIUM IV 40 MG VIAL IV PUSH (08:19)
[2022-05-20] MEDS: BISACODYL 10 MG SUPPOSITORY RECTAL (12:24)
--- NOTE | 2022-05-20 13:09 | PM.IMPN ---
Progress Note: A&P Assessment and Plan (1) N&V (nausea and vomiting): Qualifiers: Vomiting type: unspecified Qualified Code(s): R11.2 - Nausea with vomiting, unspecified Code(s): R11.2 - Nausea with vomiting, unspecified Status: Acute Assessment and Plan: ED-HPI narrative: 66-year-old male with history of esophageal cancer that is G-tube dependent presented the emergency department for evaluation for suspected aspiration pneumonia.? Patient reports last night as he was going to bed he had 5 episodes of emesis.? Patient states it was yellow in color.? Patient reports that he does have a history of aspiration pneumonia.? Patient suspects he did aspirate.? Patient states after the emesis he did have a burning of esophagus and the burning into his chest.? Patient denies any current shortness of breath. 05/20/2022 interval history: 66-year-old male with history of esophageal cancer status post surgical repair and radiation therapy resulting in dysphagia and being fed with a G-tube patient states prior to coming to emergency depart he had vomited 5 times and felt that he may have aspirated, patient further states prior to this episode patient had been feeling nauseated and discomfort in his abdomen, patient describes vomitus as yellow and bitter, today patient states his bowel movements are not regular, and has not had BM for 5 days and today he is not passing gas, further evaluate KUB was done which did not show any sign of obstruction, will give patient suppository, once patient has BM, patient remains clinically stable will resume patient G-tube feeding at 50% rate of his home therapy, patient is seen by GI recommended to continue present management, For suspected aspiration pneumonia we have started the patient Zosyn however clinically patient does not have any sign or symptoms of pneumonia (2) Aspiration pneumonia: Qualifiers: Aspiration pneumonia type: unspecified Laterality: unspecified laterality Lung location: unspecified part of lung Qualified Code(s): J69.0 - Pneumonitis due to inhalation of food and vomit Code(s): J69.0 - Pneumonitis due to inhalation of food and vomit Status: Acute Assessment and Plan: Patient states during the vomiting he felt he may have aspirated as he had significant cough afterward (3) Atrial fibrillation: Code(s): I48.91 - Unspecified atrial fibrillation Status: Acute Assessment and Plan: Rate is controlled. Subjective Date/time seen: 05/20/22 13:09 ED-HPI narrative: 66-year-old male with history of esophageal cancer that is G-tube dependent presented the emergency department for evaluation for suspected aspiration pneumonia.? Patient reports last night as he was going to bed he had 5 episodes of emesis.? Patient states it was yellow in color.? Patient reports that he does have a history of aspiration pneumonia.? Patient suspects he did aspirate.? Patient states after the emesis he did have a burning of esophagus and the burning into his chest.? Patient denies any current shortness of breath. 05/20/2022 interval history: 66-year-old male with history of esophageal cancer status post surgical repair and radiation therapy resulting in dysphagia and being fed with a G-tube patient states prior to coming to emergency depart he had vomited 5 times and felt that he may have aspirated, patient further states prior to this episode patient had been feeling nauseated and discomfort in his abdomen, patient describes vomitus as yellow and bitter, today patient states his bowel movements are not regular, and has not had BM for 5 days and today he is not passing gas, further evaluate KUB was done which did not show any sign of obstruction, will give patient suppository, once patient has BM, patient remains clinically stable will resume patient G-tube feeding at 50% rate of his home therapy, patient is seen by GI recommended to continue present management, Fo
--- NOTE | 2022-05-20 13:12 | PC.NURSE ---
Pt unable to tolerate feedings/flushes since sometime late evening 05/19/22 per pt and report from 05/19 night RN. Pt IVF maintained. Pt feels constipated and states he frequently needs to manually disimpact himself. Notified MD, ordered KUB, pt given supplies. Pt had some small success but feels more assistance needed. Received order for suppository and inserted it. Will continue to monitor.
[2022-05-20 13:59] VITALS: BP 132/87; PULSE 81; RESP 18; TEMP 36.5; O2SAT 99
--- NOTE | 2022-05-20 19:36 | WPDGIPROGNO ---
Progress Note: A&P Assessment and Plan (1) Aspiration pneumonia: Qualifiers: Aspiration pneumonia type: unspecified Laterality: unspecified laterality Lung location: unspecified part of lung Qualified Code(s): J69.0 - Pneumonitis due to inhalation of food and vomit Code(s): J69.0 - Pneumonitis due to inhalation of food and vomit Status: Acute Assessment and Plan: treated, stable (2) N&V (nausea and vomiting): Qualifiers: Vomiting type: unspecified Qualified Code(s): R11.2 - Nausea with vomiting, unspecified Code(s): R11.2 - Nausea with vomiting, unspecified Status: Acute Assessment and Plan: no more vomiting he has chronic nausea today more bloated (3) Constipation: Code(s): K59.00 - Constipation, unspecified Status: Acute Assessment and Plan: he had supp and enema, still not a good BM will start miralax bid by tube feeding (4) History of throat cancer: Code(s): Z85.819 - Personal history of malignant neoplasm of unspecified site of lip, oral cavity, and pharynx Status: Acute Assessment and Plan: on tube feeding by G-tube Subjective Date/time seen: 05/20/22 19:36 Interval history: constipated and feeling bloated, he did not have tube feeding today. No vomiting, he has chronic nausea for which he uses zofran almost daily at home. Review of Systems Review of Systems: All systems reviewed & are unremarkable except as noted in HPI and below Exam Const: General: comfortable HENMT: Face/Nose/Sinus: Normal nares present Eyes: Sclera: sclerae normal Neck: Neck: supple Resp: Effort & Inspection: normal respiratory effort Auscultation: no rhonchi Cardio: Rate: regular rate GI: GI Palp: Yes Soft to palpation and No Guarding due to palpation present (GI) Auscultation: normal bowel sounds Other: g-tube in position, noted mild erythema around site but chronic per patient Skin: General skin exam: normal color Neuro: Speech: normal speech Motor exam (neuro): 5/5 motor strength present throughout Extrem: General: normal to inspection Psych: Affect: normal affect Objective Data Vital Signs Vital Signs: Vital Signs - 24 hr 05/19/22 22:00 05/20/22 06:00 05/20/22 13:59 Temperature 97.8 F 97.8 F 97.7 F Pulse Rate 80 95 81 Respiratory Rate 16 18 18 Blood Pressure 148/89 H 144/87 H 132/87 Pulse Oximetry 96 97 99 Intake/Output Intake/Output: Intake & Output 05/17/22 05/18/22 05/19/22 05/20/22 23:59 23:59 23:59 23:59 Intake Total 50 2200 1100 Output Total 800 1500 Balance 50 1400 -400 Meds/Results Medications: Active Medications Generic Name Dose Route Start Last Admin Trade Name Freq PRN Reason Stop Dose Admin Diazepam 15 mg 05/19/22 02:37 05/20/22 00:26 Diazepam (*Crx) 5 Mg Tablet PO 15 mg TID PRN Administration Muscle Spasm Enoxaparin Sodium 40 mg 05/20/22 09:00 05/20/22 08:19 Enoxaparin 40 Mg/0.4 Ml Syringe SUB-Q 40 mg DAILY GELA Administration Finasteride 5 mg 05/19/22 09:00 05/20/22 08:29 Finasteride 5 Mg Tablet FEED TUBE Not Given DAILY GELA Piperacillin/Tazobactam/Dextrose 3.375 gm in 50 mls @ 100 mls/hr 05/19/22 03:00 05/20/22 17:44 Zosyn 3.375 Gm/Ns 50 Ml IVPB 100 mls/hr Q6H GELA Administration Sodium Chloride 1,000 mls @ 100 mls/hr 05/19/22 02:35 05/20/22 08:18 Normal Saline Iv IV CONT 100 mls/hr .Q10H GELA Administration Ondansetron HCl 4 mg 05/20/22 00:58 05/20/22 08:28 Ondansetron Inj 4 Mg/2 Ml Vial IV PUSH 4 mg Q6H PRN Administration Nausea And Vomiting Pantoprazole Sodium 40 mg 05/19/22 10:15 05/20/22 08:19 Pantoprazole Sodium Iv 40 Mg Vial IV PUSH 40 mg QAM GELA Administration Zolpidem Tartrate 10 mg 05/19/22 02:34 05/20/22 00:26 Zolpidem Tartrate (*Crx) 5 Mg Tablet FEED TUBE 10 mg HS PRN Administration Sleep Radiology Results: ITS Impressions
[2022-05-20 22:00] VITALS: BP 158/97; PULSE 96; RESP 16; TEMP 36.6; O2SAT 99
[2022-05-21] MEDS: diazePAM (*CRX) 5 MG TABLET 15 MG PO (01:03)
[2022-05-21] MEDS: ZOLPIDEM TARTRATE (*CRX) 5 MG TABLET 10 MG FEED TUBE (01:04)
[2022-05-21] MEDS: SODIUM CHLORIDE 0.9% IV 1,000 ML 100 ML IV CONT ×2 (04:18→14:19)
[2022-05-21] MEDS: PIPERACILLN/TAZ 3.375GM/NS50ML 3.375 GM/50 ML BAG IVPB ×4 (04:19→20:52)
[2022-05-21 06:00] VITALS: BP 134/82; PULSE 89; RESP 18; TEMP 36.4; O2SAT 96
[2022-05-21 07:10] LABS: Hematocrit 38.1 % (42.0-52.0); Hemoglobin 12.2 g/dL (14.0-18.0); Mean Corpuscular Hemoglobin 32.3 pg (26-34); Mean Corpuscular Volume 100.8 fl (80-100); Mean Platelet Volume 12.1 fl (7.4-10.4); Platelet Count Result 139 k/mm3 (150-375); Red Blood Count 3.78 M/mm3 (4.6-6.20); Red Cell Distribution Width 12.6 % (11.5-14.5); White Blood Count 5.9 K/mm3 (4.5-10.0)
[2022-05-21 07:21] LABS: Anion Gap 10 mmol/L (8-16); Blood Urea Nitrogen 17 mg/dL (9-20); Calcium 7.8 mg/dL (8.4-10.2); Carbon Dioxide 22 mmol/L (22-30); Chloride 106 mmol/L (98-107); Estimated CRCL calculation 102 ml/min; Estimated Glomerular Filt Rate > 60; Glucose 69 mg/dL (65-110); Potassium 3.5 mmol/L (3.4-5.0); Sodium 138 mmol/L (137-145)
[2022-05-21] MEDS: ENOXAPARIN 40 MG/0.4 ML SYRINGE SUB-Q (09:51)
[2022-05-21] MEDS: polyethylene glycoL 3350 17 GM POWD.PACK FEED TUBE ×2 (09:51→17:51)
[2022-05-21] MEDS: POTASSIUM CHLORIDE 20 MEQ PACKET (FOR LIQUID) 40 MEQ PO (09:51)
[2022-05-21] MEDS: PANTOPRAZOLE SODIUM IV 40 MG VIAL IV PUSH (09:52)
[2022-05-21] MEDS: FINASTERIDE 5 MG TABLET FEED TUBE (09:52)
[2022-05-21] MEDS: ONDANSETRON INJ 4 MG/2 ML VIAL IV PUSH ×2 (09:53→21:00)
[2022-05-21 09:57] VITALS: BMI 21.4
[2022-05-21 11:17] LABS: Glucose Point of Care 64 mg/dl (65-105)
[2022-05-21] MEDS: DEXTROSE 50% 25 GM/50 ML SYRINGE IV PUSH (11:34)
[2022-05-21 12:55] LABS: Glucose Point of Care 104 mg/dl (65-105)
--- NOTE | 2022-05-21 12:59 | PM.IMPN ---
Progress Note: A&P Assessment and Plan (1) N&V (nausea and vomiting): Qualifiers: Vomiting type: unspecified Qualified Code(s): R11.2 - Nausea with vomiting, unspecified Code(s): R11.2 - Nausea with vomiting, unspecified Status: Acute Assessment and Plan: ED-HPI narrative: 66-year-old male with history of esophageal cancer that is G-tube dependent presented the emergency department for evaluation for suspected aspiration pneumonia.? Patient reports last night as he was going to bed he had 5 episodes of emesis.? Patient states it was yellow in color.? Patient reports that he does have a history of aspiration pneumonia.? Patient suspects he did aspirate.? Patient states after the emesis he did have a burning of esophagus and the burning into his chest.? Patient denies any current shortness of breath. 05/21/2022 interval history: 66-year-old male with history of esophageal cancer status post surgical repair and radiation therapy resulting in dysphagia and being fed with a G-tube patient states prior to coming to emergency depart he had vomited 5 times and felt that he may have aspirated, patient further states prior to this episode patient had been feeling nauseated and discomfort in his abdomen, patient describes vomitus as yellow and bitter, on 05/20 patient states his bowel movements are not regular, and has not had BM for 5 days and he was not passing gas,to further evaluate KUB was done which did not show any sign of obstruction, will give patient suppository, and enema, there was very little BM, patient remains clinically stable unable to resume patient G-tube feeding patient feeling bloated and no appetite, discuss with precision dyer patient current Gtube regiment does not have any fiber and recommended to switch his Gtub feeding Javity with fiber, once able to tolerate, patient is seen by GI recommended to continue present management, For suspected aspiration pneumonia we have started the patient Zosyn however clinically patient does not have any sign or symptoms of pneumonia (2) Aspiration pneumonia: Qualifiers: Aspiration pneumonia type: unspecified Laterality: unspecified laterality Lung location: unspecified part of lung Qualified Code(s): J69.0 - Pneumonitis due to inhalation of food and vomit Code(s): J69.0 - Pneumonitis due to inhalation of food and vomit Status: Acute Assessment and Plan: Patient states during the vomiting he felt he may have aspirated as he had significant cough afterward (3) Atrial fibrillation: Code(s): I48.91 - Unspecified atrial fibrillation Status: Acute Assessment and Plan: Rate is controlled. Subjective Date/time seen: 05/21/22 12:59 05/21/2022 interval history: 66-year-old male with history of esophageal cancer status post surgical repair and radiation therapy resulting in dysphagia and being fed with a G-tube patient states prior to coming to emergency depart he had vomited 5 times and felt that he may have aspirated, patient further states prior to this episode patient had been feeling nauseated and discomfort in his abdomen, patient describes vomitus as yellow and bitter, on 05/20 patient states his bowel movements are not regular, and has not had BM for 5 days and he was not passing gas,to further evaluate KUB was done which did not show any sign of obstruction, will give patient suppository, and enema, there was very little BM, patient remains clinically stable unable to resume patient G-tube feeding patient feeling bloated and no appetite, discuss with precision dyer patient current Gtube regiment does not have any fiber and recommended to switch his Gtub feeding Javity with fiber, once able to tolerate, patient is seen by GI recommended to continue present management, For suspected aspiration pneumonia we have started the patient Zosyn however clinically patient does not have any sign or symptoms of pneumonia Review of Systems Revphillip
[2022-05-21 14:00] VITALS: BP 126/86; PULSE 82; RESP 18; TEMP 36.3; O2SAT 98
[2022-05-21] MEDS: LACTULOSE 20 GM/30 ML UDC FEED TUBE (14:18)
--- NOTE | 2022-05-21 15:04 | WPDGIPROGNO ---
Progress Note: A&P Assessment and Plan (1) Aspiration pneumonia: Qualifiers: Aspiration pneumonia type: unspecified Laterality: unspecified laterality Lung location: unspecified part of lung Qualified Code(s): J69.0 - Pneumonitis due to inhalation of food and vomit Code(s): J69.0 - Pneumonitis due to inhalation of food and vomit Status: Acute Assessment and Plan: treated, stable he is doing well, not using oxygen hopefully home tomorrow (2) N&V (nausea and vomiting): Qualifiers: Vomiting type: unspecified Qualified Code(s): R11.2 - Nausea with vomiting, unspecified Code(s): R11.2 - Nausea with vomiting, unspecified Status: Acute Assessment and Plan: no more vomiting he has chronic nausea still bloated (3) Constipation: Code(s): K59.00 - Constipation, unspecified Status: Acute Assessment and Plan: miralax bid by tube feeding will add lactulose (4) History of throat cancer: Code(s): Z85.819 - Personal history of malignant neoplasm of unspecified site of lip, oral cavity, and pharynx Status: Acute Assessment and Plan: on tube feeding by G-tube Subjective Date/time seen: 05/21/22 15:04 Interval history: feeling bloated and still no BM, he is not than hungry and prefers to hold on his tube feeding for now Review of Systems Review of Systems: All systems reviewed & are unremarkable except as noted in HPI and below Exam Const: General: comfortable HENMT: Face/Nose/Sinus: Normal nares present Eyes: Sclera: sclerae normal Neck: Neck: supple Resp: Effort & Inspection: normal respiratory effort Auscultation: no rhonchi Cardio: Rate: regular rate GI: GI Palp: Yes Soft to palpation and No Guarding due to palpation present (GI) Auscultation: normal bowel sounds Other: g-tube in position, noted mild erythema around site but chronic per patient Skin: General skin exam: normal color Neuro: Speech: normal speech Motor exam (neuro): 5/5 motor strength present throughout Extrem: General: normal to inspection Psych: Affect: normal affect Objective Data Vital Signs Vital Signs: Vital Signs - 24 hr 05/20/22 22:00 05/21/22 06:00 05/21/22 08:00 Temperature 97.9 F 97.5 F L Pulse Rate 96 89 Respiratory Rate 16 18 Blood Pressure 158/97 H 134/82 Pulse Oximetry 99 96 Oxygen Delivery Room Air 05/21/22 11:24 Temperature Pulse Rate Respiratory Rate Blood Pressure Pulse Oximetry Oxygen Delivery Room Air Intake/Output Intake/Output: Intake & Output 05/18/22 05/19/22 05/20/22 05/21/22 23:59 23:59 23:59 23:59 Intake Total 50 2200 2200 1100 Output Total 800 1500 475 Balance 50 1400 700 625 Meds/Results Medications: Active Medications Generic Name Dose Route Start Last Admin Trade Name Freq PRN Reason Stop Dose Admin Dextrose 12.5 gm 05/21/22 07:51 05/21/22 11:34 Dextrose 50% 25 Gm/50 Ml Syringe IV PUSH 12.5 gm PRN PRN Administration Hypoglycemia Protocol Diazepam 15 mg 05/19/22 02:37 05/21/22 01:03 Diazepam (*Crx) 5 Mg Tablet PO 15 mg TID PRN Administration Muscle Spasm Enoxaparin Sodium 40 mg 05/20/22 09:00 05/21/22 09:51 Enoxaparin 40 Mg/0.4 Ml Syringe SUB-Q 40 mg DAILY GELA Administration Finasteride 5 mg 05/19/22 09:00 05/21/22 09:52 Finasteride 5 Mg Tablet FEED TUBE 5 mg DAILY GELA Administration Glucagon 1 mg 05/21/22 07:51 Glucagon For Inj 1 Mg Vial IM PRN PRN Hypoglycemia Protocol Glucose 15 gm 05/21/22 07:51 Glucose Oral Gel 15 Gm Of Glucse In 37.5 Gm Tube PO PRN PRN Hypoglycemia Protocol Piperacillin/Tazobactam/Dextrose 3.375 gm in 50 mls @ 100 mls/hr 05/19/22 03:00 05/21/22 14:18 Zosyn 3.375 Gm/Ns 50 Ml IVPB 100 mls/hr Q6H GELA Administration Sodium Chloride 1,000 mls @ 100 mls/hr 05/19/22 02:35 05/21/22 14:19 Normal Saline Iv IV CON
[2022-05-21 20:08] LABS: Glucose Point of Care 75 mg/dl (65-105)
[2022-05-21] MEDS: DEXTROSE 5%/0.9% SOD CHL 1,000 ML 100 ML IV CONT (20:52)
[2022-05-21] MEDS: LACTULOSE 20 GM/30 ML UDC PO (20:52)
[2022-05-21 22:00] VITALS: BP 162/98; PULSE 84; RESP 16; TEMP 36.3; O2SAT 98
[2022-05-22 01:07] LABS: Glucose Point of Care 103 mg/dl (65-105)
[2022-05-22] MEDS: PIPERACILLN/TAZ 3.375GM/NS50ML 3.375 GM/50 ML BAG IVPB ×3 (04:11→16:19)
--- NOTE | 2022-05-22 06:02 | PC.NURSE ---
Patient sitting on toilet having soft to liquid BM. Stool medium brown. Patient to pull BR light when done. Patient stable at this time.
[2022-05-22 08:00] VITALS: BP 142/87; PULSE 86; RESP 18; TEMP 36.6; O2SAT 97
[2022-05-22 08:02] LABS: Hematocrit 39.2 % (42.0-52.0); Hemoglobin 12.8 g/dL (14.0-18.0); Mean Corpuscular HGB Conc 32.7 g/dl (32-36); Mean Corpuscular Hemoglobin 31.7 pg (26-34); Mean Platelet Volume 12.3 fl (7.4-10.4); Platelet Count Result 159 k/mm3 (150-375); Red Blood Count 4.04 M/mm3 (4.6-6.20); Red Cell Distribution Width 12.4 % (11.5-14.5); White Blood Count 4.6 K/mm3 (4.5-10.0)
[2022-05-22 08:15] LABS: Glucose Point of Care 82 mg/dl (65-105)
[2022-05-22 08:22] LABS: Anion Gap 9 mmol/L (8-16); Blood Urea Nitrogen 9 mg/dL (9-20); Calcium 7.7 mg/dL (8.4-10.2); Carbon Dioxide 24 mmol/L (22-30); Chloride 104 mmol/L (98-107); Estimated CRCL calculation 102 ml/min; Estimated Glomerular Filt Rate > 60; Glucose 92 mg/dL (65-110); Magnesium 2.1 mg/dL (1.6-2.3); Potassium 3.4 mmol/L (3.4-5.0); Sodium 137 mmol/L (137-145)
[2022-05-22] MEDS: ENOXAPARIN 40 MG/0.4 ML SYRINGE SUB-Q (08:27)
[2022-05-22] MEDS: FINASTERIDE 5 MG TABLET FEED TUBE (08:28)
[2022-05-22] MEDS: polyethylene glycoL 3350 17 GM POWD.PACK FEED TUBE (08:28)
[2022-05-22] MEDS: PANTOPRAZOLE SODIUM IV 40 MG VIAL IV PUSH (08:28)
[2022-05-22] MEDS: DEXTROSE 5% 1,000 ML 1,000 ML 100 ML IVPB ×2 (08:55→11:23)
[2022-05-22] MEDS: LACTULOSE 20 GM/30 ML UDC PO (08:56)
--- NOTE | 2022-05-22 10:13 | PM.DS ---
DS: Admitting Diagnosis Discharge Date 05/22/2022 Admitting Diagnosis Shortness of breath suspect aspiration pneumonia DS: Discharge Diagnosis Discharge Diagnosis (1) N&V (nausea and vomiting): Qualifiers: Vomiting type: unspecified Qualified Code(s): R11.2 - Nausea with vomiting, unspecified Code(s): R11.2 - Nausea with vomiting, unspecified Status: Acute Assessment and Plan: ED-HPI narrative: 66-year-old male with history of esophageal cancer that is G-tube dependent presented the emergency department for evaluation for suspected aspiration pneumonia.? Patient reports last night as he was going to bed he had 5 episodes of emesis.? Patient states it was yellow in color.? Patient reports that he does have a history of aspiration pneumonia.? Patient suspects he did aspirate.? Patient states after the emesis he did have a burning of esophagus and the burning into his chest.? Patient denies any current shortness of breath. 05/21/2022 interval history: 66-year-old male with history of esophageal cancer status post surgical repair and radiation therapy resulting in dysphagia and being fed with a G-tube patient states prior to coming to emergency depart he had vomited 5 times and felt that he may have aspirated, patient further states prior to this episode patient had been feeling nauseated and discomfort in his abdomen, patient describes vomitus as yellow and bitter, on 05/20 patient states his bowel movements are not regular, and has not had BM for 5 days and he was not passing gas,to further evaluate KUB was done which did not show any sign of obstruction, will give patient suppository, and enema, there was very little BM, patient remains clinically stable unable to resume patient G-tube feeding patient feeling bloated and no appetite, discuss with licensed optician patient current Gtube regiment does not have any fiber and recommended to switch his Gtub feeding Javity with fiber, once able to tolerate, patient is seen by GI recommended to continue present management, For suspected aspiration pneumonia we have started the patient Zosyn however clinically patient does not have any sign or symptoms of pneumonia (2) Aspiration pneumonia: Qualifiers: Aspiration pneumonia type: unspecified Laterality: unspecified laterality Lung location: unspecified part of lung Qualified Code(s): J69.0 - Pneumonitis due to inhalation of food and vomit Code(s): J69.0 - Pneumonitis due to inhalation of food and vomit Status: Acute Assessment and Plan: Patient states during the vomiting he felt he may have aspirated as he had significant cough afterward (3) Atrial fibrillation: Code(s): I48.91 - Unspecified atrial fibrillation Status: Acute Assessment and Plan: Rate is controlled. DS: Summary Hospital Course Reason for hospitalization: ED-HPI narrative: 66-year-old male with history of esophageal cancer that is G-tube dependent presented the emergency department for evaluation for suspected aspiration pneumonia.? Patient reports last night as he was going to bed he had 5 episodes of emesis.? Patient states it was yellow in color.? Patient reports that he does have a history of aspiration pneumonia.? Patient suspects he did aspirate.? Patient states after the emesis he did have a burning of esophagus and the burning into his chest.? Patient denies any current shortness of breath. 66-year-old male with history of esophageal cancer status post surgical repair and radiation therapy resulting in dysphagia and being fed with a G-tube patient states prior to coming to emergency depart he had vomited 5 times and felt that he may have aspirated, patient further states prior to this episode patient had been feeling nauseated and discomfort in his abdomen, patient describes vomitus as yellow and bitter, patient states his bowel movements are not regular, further evaluate KUB was done which did not show any sign
[2022-05-22 12:05] LABS: Glucose Point of Care 110 mg/dl (65-105)
--- NOTE | 2022-05-22 13:10 | PCNFU ---
Nutrition Follow-Up Complete: Likely inadequate fluid intake related to enteral nutrition administration as evidenced by patient report of flushing what he has room for at home Goal:Meet estimated nutrition and fluid needs Pt current nutrition is Jevity 1.5 300ml bolus QID, 150ml flush q 4 hrs. Nutrition recommendation: Last recorded weight is 71.668 kg. Bowel Motility: +BM / Labs Reviewed:Hgb: 12.8, HCT:39, Cr:0.6 Meds Noted: zofran, miralax, lactulose, lovenox Skin: WNL Additional Notes: pt tube feeds have been on hold due to intolerance, noted pt had a BM this morning, ready to try resuming feeds. Pt eager to get home, but informed him of importance of making sure his body would tolerate his normal tube feeding regimen before discharging. Also recommended an increase in flushes for home administration to help prevent future constipation issues. Pt in agreement. Monitoring tolerance, bowel patterns, labs, weights, plan of care Follow up Tuesdays and Fridays
--- NOTE | 2022-05-22 13:59 | WPDGIPROGNO ---
Progress Note: A&P Assessment and Plan (1) Aspiration pneumonia: Qualifiers: Aspiration pneumonia type: unspecified Laterality: unspecified laterality Lung location: unspecified part of lung Qualified Code(s): J69.0 - Pneumonitis due to inhalation of food and vomit Code(s): J69.0 - Pneumonitis due to inhalation of food and vomit Status: Acute Assessment and Plan: treated, stable he is doing well, not using oxygen home soon will follow from afar (2) Constipation: Code(s): K59.00 - Constipation, unspecified Status: Acute Assessment and Plan: he received miralax and lactulose, finally having good BM will discontinue lactulose and leave miralax as needed (3) N&V (nausea and vomiting): Qualifiers: Vomiting type: unspecified Qualified Code(s): R11.2 - Nausea with vomiting, unspecified Code(s): R11.2 - Nausea with vomiting, unspecified Status: Acute Assessment and Plan: no more vomiting he has chronic nausea less bloated after having bm (4) History of throat cancer: Code(s): Z85.819 - Personal history of malignant neoplasm of unspecified site of lip, oral cavity, and pharynx Status: Acute Assessment and Plan: on tube feeding by G-tube Subjective Date/time seen: 05/22/22 13:59 Interval history: he is now having BM's, actually right now using restroom. Feeling better and less bloated Review of Systems Review of Systems: All systems reviewed & are unremarkable except as noted in HPI and below Exam Const: General: comfortable HENMT: Face/Nose/Sinus: Normal nares present Eyes: Sclera: sclerae normal Neck: Neck: supple Resp: Effort & Inspection: normal respiratory effort Auscultation: no rhonchi Cardio: Rate: regular rate GI: GI Palp: Yes Soft to palpation and No Guarding due to palpation present (GI) Auscultation: normal bowel sounds Other: g-tube in position, noted mild erythema around site but chronic per patient Skin: General skin exam: normal color Neuro: Speech: normal speech Motor exam (neuro): 5/5 motor strength present throughout Extrem: General: normal to inspection Psych: Affect: normal affect Objective Data Vital Signs Vital Signs: Vital Signs - 24 hr 05/21/22 14:00 05/21/22 22:00 05/22/22 08:00 Temperature 97.4 F L 97.4 F L 97.9 F Pulse Rate 82 84 86 Respiratory Rate 18 16 18 Blood Pressure 126/86 162/98 H 142/87 H Pulse Oximetry 98 98 97 Intake/Output Intake/Output: Intake & Output 05/19/22 05/20/22 05/21/22 05/22/22 23:59 23:59 23:59 23:59 Intake Total 2200 2200 1200 1050 Output Total 800 1500 1225 Balance 1400 700 -25 1050 Meds/Results Medications: Active Medications Generic Name Dose Route Start Last Admin Trade Name Freq PRN Reason Stop Dose Admin Dextrose 12.5 gm 05/21/22 07:51 05/21/22 11:34 Dextrose 50% 25 Gm/50 Ml Syringe IV PUSH 12.5 gm PRN PRN Administration Hypoglycemia Protocol Diazepam 15 mg 05/19/22 02:37 05/21/22 01:03 Diazepam (*Crx) 5 Mg Tablet PO 15 mg TID PRN Administration Muscle Spasm Enoxaparin Sodium 40 mg 05/20/22 09:00 05/22/22 08:27 Enoxaparin 40 Mg/0.4 Ml Syringe SUB-Q 40 mg DAILY GELA Administration Finasteride 5 mg 05/19/22 09:00 05/22/22 08:28 Finasteride 5 Mg Tablet FEED TUBE 5 mg DAILY GELA Administration Glucagon 1 mg 05/21/22 07:51 Glucagon For Inj 1 Mg Vial IM PRN PRN Hypoglycemia Protocol Glucose 15 gm 05/21/22 07:51 Glucose Oral Gel 15 Gm Of Glucse In 37.5 Gm Tube PO PRN PRN Hypoglycemia Protocol Piperacillin/Tazobactam/Dextrose 3.375 gm in 50 mls @ 100 mls/hr 05/19/22 03:00 05/22/22 09:08 Zosyn 3.375 Gm/Ns 50 Ml IVPB 100 mls/hr Q6H GELA Infusion Dextrose 1,000 mls @ 100 mls/hr 05/21/22 07:51 05/22/22 11:23 Dextrose 5% 1,000 Ml IVPB 100 mls/hr PRN PRN Administration Hypoglycemia
[2022-05-22 14:00] VITALS: BP 145/89; PULSE 91; RESP 16; TEMP 36.5; O2SAT 97
--- NOTE | 2022-05-22 17:14 | PC.NURSE ---
Pt and MD discussed pt discharge today as pt lungs much improved. Notified MD that pt had still yet to have any feedings. Pt had several liquid bowel movements and feels clear. Encouraged pt to consider staying longer to make sure he tolerates his feedings. Pt states he knows when he will feel the need to vomit. Dietitian in room to see pt, also concerned about pt not having more feeds/intolerance. Pt states he will consider discharge vs staying. Later this afternoon, pt had two BMs, the last of which finally had several small hard stools, marble sized according to patient. Pt able to feed 120mls and 60 of water at 1400 and 100mls feed and 60 water at 1700. Pt states wanting to discharge.
== END 2022-05-22 19:00 | disposition home or self-care (01) | DRG 179 ==
LOC: ANHED 19:37 → ANH3MEDSUR 23:18
PROVIDERS: Admitting Provider Internal Medicine; Emergency Provider Emergency Medicine; PCP Internal Medicine; Visit Provider Family Medicine
DX: J69.0 Pneumonitis due to inhalation of food and vomit (principal); K59.00 Constipation, unspecified; R11.2 Nausea with vomiting, unspecified; Z20.822 Contact with and (suspected) exposure to COVID-19; K21.9 Gastro-esophageal reflux disease without esophagitis; E03.9 Hypothyroidism, unspecified; G62.82 Radiation-induced polyneuropathy; I48.91 Unspecified atrial fibrillation; R13.19 Other dysphagia; Z93.1 Gastrostomy status; Z85.819 Personal history of malignant neoplasm of unspecified site of lip, oral cavity, and pharynx
CPT/HCPCS: 36415; 71046; 74018; 80048; 80053; 82948; 83735; 85025; 85027; 87040; 87637; 96361; 96365; 97161; 97165; 97530; 99285; A9270; C9113; G0378; J1650; J2405; J2543; J7030; J7042; J7070

== ENCOUNTER 2022-08-18 12:35 | Emergency (ER) | payer MEDICARE, OTHER, SELFPAY ==
[2022-08-18 12:45] VITALS: BP 130/92; PULSE 87; RESP 18; TEMP 36.6; O2SAT 98
--- NOTE | 2022-08-18 14:31 | ED.GENADULT ---
HPI - General Adult General Chief complaint: Unspecified Stated complaint: g tube came out Time Seen by Provider: 08/18/22 13:38 Source: patient and RN notes reviewed Mode of arrival: ambulatory Limitations: no limitations History of Present Illness HPI narrative: This is a 67 year old male with history of head and neck cancer, g tube dependent who presents for evaluation of dislodged g tube. Patient states his g tube accidentally came out 2 am this morning. He has had g tube for 6 years but this particular one 1 placed 1 year ago at [place] . His doctor that placed the g tube is out of the [place]. He states he is unable to eat or drink by mouth due to dysphagia and history of aspiration. He has not had any water to drink for 12 hours. Related Data Home Medications Medication Instructions Recorded Confirmed zolpidem 10 mg tablet 10 mg feeding tube HS PRN Sleep 09/07/21 05/19/22 finasteride 5 mg tablet (Proscar) 5 mg feeding tube DAILY 03/05/22 05/19/22 diazepam 10 mg tablet (Valium) 15 mg PO TID PRN Muscle Spasm 05/19/22 05/19/22 ondansetron HCl 4 mg tablet 4 mg feeding tube Q3-4H PRN Acid 05/19/22 05/19/22 Reflux Allergies Allergy/AdvReac Type Severity Reaction Status Date / Time No Known Allergies Allergy Verified 08/18/22 12:58 Review of Systems Review of Systems: All systems reviewed & are unremarkable except as noted in HPI and below PMFSH Past Medical History Medical History Cervical spine disease Constipation Gastrostomy tube dependent GERD (gastroesophageal reflux disease) History of throat cancer XRT and surgery Hypothyroid Malfunction of gastrostomy tube Spina bifida as a child with surgery; residual 'bladder issues' Surgical History Surgical History History of ear, nose, and throat (ENT) surgery Family History Family History Mother Colon cancer Social History Social History Social History: Lives at home with . Never smoked. No alcohol and drug use. Full code. would be the Individual would make medical decisions for him if he is unable Smoking status: Never smoker Second hand tobacco smoke exposure: No Alcohol intake: never Substance use: never Substance use type: does not use Lack of Transportation: No Lack of Food: Never True Current Housing: I Have Housing Concerned About Future Housing: No Difficulty Paying Gas/Electric Bills: No Difficulty Paying for Meds: No Currently Unemployed: No Education: Bachelor's Degree Difficulty w/ Childcare or Family Care: No Living arrangements: with family Gender identity (if verbalized by the patient): Male Sexual Orientation (if Verbalized by the Patient): Straight or Heterosexual Spiritual care concerns: No Agree to blood products: Yes Exam Narrative: GENERAL: Well-appearing, well-nourished, and in no acute distress. HEAD: Normocephalic, atraumatic EYES:EOMI, conjunctiva clear without discharge THROAT:Mucous membranes moist, Oropharynx normal without erythema, exudate, peritonsillar swelling or fluctuance NECK: old scars to neck from previous cancer treatment RESPIRATORY: No respiratory distress, Airway patent, Respirations non-labored, Clear to auscultation without rales, rhonchi or wheeze HEART: Regular rate and rhythm. No murmur heard. Normal peripheral pulses. ABDOMEN: Soft,nondistended, normal active bowel sounds. No masses. No rebound or guarding, No organomegaly. stoma with granulation tissue at site, appears closed EXTREMITIES: No edema, normal strength with full range of motion. SKIN: Warm, dry, normal color without rash NEURO: Alert and oriented x3. CN 2-12 grossly intact. No focal deficits. PSYCH: Normal mood and affect. Course Reevaluation(s) Reeval
[2022-08-18 14:38] LABS: Basophils Percent Auto 0.9 % (0.2-1.2); Eosinophils Absolute Auto 0.2 K/mm3 (0-0.3); Eosinophils Percent Auto 3.7 % (0-4.4); Hematocrit 44.6 % (42.0-52.0); Hemoglobin 14.5 g/dL (14.0-18.0); Immature Granulocyte Absolute 0.02 K/mm3 (0.00-0.031); Immature Granulocyte Percent A 0.4 % (0-0.5); Lymphocytes Absolute Auto 0.63 K/mm3 (0.9-3.2); Lymphocytes Percent Auto 13.8 % (18.3-44.2); Mean Corpuscular HGB Conc 32.5 g/dl (32-36); Mean Corpuscular Hemoglobin 31.6 pg (26-34); Mean Corpuscular Volume 97.2 fl (80-100); Mean Platelet Volume 12.8 fl (7.4-10.4); Monocytes Absolute Auto 0.3 K/mm3 (0.1-0.6); Monocytes Percent Auto 5.7 % (2.6-8.5); Neutrophils Absolute Auto 3.4 K/mm3 (1.3-6.7); Neutrophils Percent Auto 75.5 % (45.5-73.1); Platelet Count Result 161 k/mm3 (150-375); Red Blood Count 4.59 M/mm3 (4.6-6.20); Red Cell Distribution Width 13.4 % (11.5-14.5); White Blood Count 4.6 K/mm3 (4.5-10.0)
[2022-08-18] MEDS: LACTATED RINGERS 1,000 ML 150 ML IV CONT (14:44)
[2022-08-18 14:49] LABS: Alanine Aminotransferase 16 U/L (6-50); Albumin Level 4.5 g/dL (3.5-5.1); Alkaline Phosphatase 57 U/L (38-126); Anion Gap 5 mmol/L (8-16); Aspartate Amino Transferase 24 U/L (17-59); Bilirubin,Total 0.6 mg/dL (0.2-1.3); Blood Urea Nitrogen 22 mg/dL (9-20); Calcium 9.2 mg/dL (8.4-10.2); Carbon Dioxide 32 mmol/L (22-30); Chloride 99 mmol/L (98-107); Estimated CRCL calculation 73 ml/min; Estimated Glomerular Filt Rate > 60; Glucose 92 mg/dL (65-110); Potassium 4.4 mmol/L (3.4-5.0); Sodium 136 mmol/L (137-145)
[2022-08-18 14:52] LABS: Appearance Urine Cloudy (Clear); Bacteria Urine None Seen /hpf; Bilirubin Urine Negative (Negative); Blood Urine Negative (Negative); Color Urine Yellow (Yellow); Glucose Urine UA Negative (Negative); Hyaline Casts Urine Present /lpf; Ketones Urine Negative (Negative); Leukocyte Esterase Ur 1+ LEU/UL (Negative); Nitrate Urine Negative (Negative); Non Pathogenic Casts 0-2; Protein Urine Negative (Negative); RBC Urine 0-2 /hpf (0-2); Specific Grav Ur 1.019 (1.001-1.035); Squamous Epithelial Cell Urine None seen /hpf (Few); WBC Urine 0-5 /hpf; pH Urine 7.5 (5.0-9.0)
[2022-08-18 14:53] LABS: Partial Thromboplastin Time 30.8 SECONDS (22.3-36.8); Prothrombin Time 13.4 Seconds (11.1-14.7)
[2022-08-18 14:56] LABS: Add Urine Microscopic? YES
[2022-08-18 16:30] VITALS: BP 162/94; PULSE 72; RESP 18; TEMP 36.6; O2SAT 100
--- NOTE | 2022-08-18 17:05 | PC.NURSE ---
[facility] accepted transfer to [facility] Rm [id number] ETA [id number]
[2022-08-18 17:51] VITALS: BP 169/89; PULSE 77; RESP 18; TEMP 36.7; O2SAT 99
== END 2022-08-18 18:07 | disposition short-term general hospital (02) ==
PROVIDERS: Emergency Provider General Practice; PCP Internal Medicine
DX: Z43.1 Encounter for attention to gastrostomy (principal); Z85.01 Personal history of malignant neoplasm of esophagus; K21.9 Gastro-esophageal reflux disease without esophagitis; E03.9 Hypothyroidism, unspecified
CPT/HCPCS: 36415; 80053; 81001; 85025; 85610; 85730; 96360; 96361; 99283; 99285; J7120

== ENCOUNTER 2023-07-23 13:02 | Outpatient (CLI) | payer MEDICARE, OTHER, SELFPAY | END 2023-07-23 13:03 | disposition home or self-care (01) | LOC: CHSLAB 13:08 | PROVIDERS: PCP Internal Medicine; Visit Provider Specialist | DX: L01.00 Impetigo, unspecified (principal) | CPT/HCPCS: 87070; 87205 ==

== ENCOUNTER 2023-09-03 13:43 | Outpatient (CLI) | payer MEDICARE, OTHER, SELFPAY | END 2023-09-03 13:44 | disposition home or self-care (01) | PROVIDERS: PCP Specialist; Visit Provider Specialist | DX: C44.311 Basal cell carcinoma of skin of nose (principal); L57.0 Actinic keratosis | CPT/HCPCS: 88305 ==

== ENCOUNTER 2023-12-29 03:37 | Inpatient (IN) | payer MEDICARE, OTHER, SELFPAY ==
[2023-12-29] VITALS (141 sets, daily range): BP systolic 43–178; BP diastolic 14–107; PULSE 67–112; RESP 15–39; TEMP 36.6–38.8; O2SAT 82–100
--- NOTE | ~2023-12-29 | XR_ITS ---
Portable chest x-ray Comparison: 01/04/2024 Clinical History: Respiratory failure Findings: ET tube in place. There is right basilar airspace consolidation. There is COPD pattern. C ardiomediastinal silhouette is stable. Bones and soft tissues are unremarkable. Impression: Right basilar pneumonia. COPD. ET tube. Reviewed, dictated and finalized at location . KER HEATED [employer]MS Impression: Right basilar pneumonia. COPD. ET tube.
--- NOTE | ~2023-12-29 | XR_ITS ---
EXAMINATION: XR chest 1V portable DATE: 01/04/2024 05:48 INDICATION: Acute respiratory failure. TECHNIQUE: A single frontal view of the chest was obtained. COMPARISON: Chest single view 01/02/2024 FINDINGS: There are airspace opacities in the mid and lower lung zones. No pleural effusion or pneumo thorax. The heart size is normal. The endotracheal tube tip is 4.3 cm above the doug. A left internet marketing specialist al jugular central venous catheter is seen with tip in the left brachiocephalic vein. IMPRESSION: 1. Airspace opacities in the mid and lower lung zones with slight improvement on the right, consisten t with pneumonia. Reviewed, dictated and finalized at location A. PARTS MOLDER IMPRESSION: 1. Airspace opacities in the mid and lower lung zones with slight improvement o n the right, consistent with pneumonia.
--- NOTE | ~2023-12-29 | XR_ITS ---
Portable chest x-ray Comparison: 01/01/2024 Clinical History: Respiratory failure Findings: Left IJ line in place. There is patchy bibasilar/perihilar consolidation with small bilate ral pleural effusions. Cardiomediastinal silhouette is stable. Bones and soft tissues are unremarkab le. Impression: Probable moderate bibasilar pulmonary edema/atelectasis with small pleural effusions. Correlate clini shey for pneumonia. Support line, as above. Reviewed, dictated and finalized at location . 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 Correlate clinically for pneumonia. Support line, as above.
--- NOTE | ~2023-12-29 | XR_ITS ---
EXAMINATION: XR abdomen obstructive series DATE: 01/03/2024 09:11 INDICATION: Adynamic ileus. TECHNIQUE: Upright and supine views of the abdomen on 3 radiographs were obtained. COMPARISON: Abdomen radiographs 05/20/2022 FINDINGS: There are airspace opacities in the mid and lower lung zones. There are no dilated loops of bowel. There is a small volume of stool in the colon. No free intraperitoneal gas. A catheter overli es the bladder. There is a 3 mm stone in left kidney. A gastrostomy tube is noted. IMPRESSION: 1. Normal bowel gas pattern. 2. Airspace opacities in the mid and lower lung zones, consistent with pneumonia. Reviewed, dictated and finalized at location A. ENT ADVISOR IMPRESSION: 1. Normal bowel gas pattern. 2. Airspace opacities in the mid and lower lung zones, consistent with pneumoni a.
--- NOTE | ~2023-12-29 | XR_ITS ---
Portable chest x-ray Comparison: 12/29/2023 Clinical History: Respiratory failure Findings: Endotracheal tube, NG tube, and left-sided central venous line are in place. NG tube side- port is at the distal esophagus. Patchy bibasilar consolidation is probably minimally improved. Card iomediastinal silhouette is stable. Bones and soft tissues are unremarkable. Impression: NG tube side-port in the distal esophagus. Further advancement into the stomach advised. Additional support tubes, as above. Patchy bibasilar consolidation, possibly minimally improved. Correlate for bibasilar pneumonia versus pulmonary edema. Reviewed, dictated and finalized at location . 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 Further advancement into the stomach advised. Additional support tubes, as above. Patchy bibasilar consolidation, possibly minimally improved. Correlate for biba silar pneumonia versus pulmonary edema.
--- NOTE | ~2023-12-29 | CT_ITS ---
EXAMINATION: CT soft tiss nk chst ab pel wo DATE: 12/29/2023 16:31 INDICATION: Throat CA, Aspiration PNA, sepsis . TECHNIQUE: Computed tomography (CT) of the neck soft tissues, chest, abdomen, and pelvis was performe d without intravenous contrast. Automated exposure control and iterative reconstruction technique wer e employed. The dose-length product was 1773.78 mGy-cm. COMPARISON: CT cap 03/05/2022 FINDINGS: Soft tissue neck: The thyroid gland is unremarkable. Multiple surgical clips in the bilateral neck. The tongue and pha ryngeal soft tissues are collapsed around the traversing NG and endotracheal tubes. Left IJ central l ine. Generalized neck subcutaneous edema/induration with loss of the normal fat planes. Visualize d sinuses and mastoid air cells are well aerated. CHEST: Thoracic aorta: No significant dilation. No dissection. Lung parenchyma and airways: Segmental areas of dependent consolidation and tree-in-bud/acinar opacit ies. Airway debris in bilateral lower lobe bronchi. Endotracheal tube terminates 5.6 cm above the car brianne. Hyperdense material in the dependent left lower lobe and to a lesser extent the medial right low er lobe, may represent aspirated contrast, or other dense ingested material. Thoracic inlet, axillae and chest wall: No thyroid or soft tissue mass. No axillary lymphadenopathy. Mediastinum: Enlarged pretracheal and subcarinal lymph nodes. Heart and pericardium: Normal heart size. Aortic and mitral calcification. No pericardial effusion. Coronary artery calcifications: Mild. Pleura: Small bilateral pleural effusions. Thoracic bones: No acute osseous finding in the chest. ABDOMEN/PELVIS: Liver: Normal. Biliary/Gallbladder: Small volume pericholecystic fluid. No bile duct dilation. Pancreas: No mass or duct dilation. Spleen: Normal. Adrenals:No mass. Kidneys: No suspicious mass, obstructing stone, or hydronephrosis. Focal dystrophic ossification asso ciated with an area of scar in the left kidney. Punctate nonobstructing right renal calcification. GI tract: The NG tube terminates in the stomach. A G-tube is also present. No small bowel dilation. T he rectum is mildly dilated to 6.5 cm by formed stool, without significant surrounding inflammatory c hange. Rectal wall thickening. Large volume of inspissated fecal material in the distal colon. The ap pendix is not confidently visualized. Diverticulosis without diverticulitis. Mesentery/Peritoneum: No ascites, mass, or free air. Retroperitoneum: No mass . Pelvis: The urinary bladder is decompressed by Vanessa catheter. Prostatomegaly with calcification. Soft Tissues: Possible soft tissue defect and subcutaneous induration over the right buttock. Abdominopelvic bones: No acute osseous finding in the abdomen/pelvis. IMPRESSION: Evaluation of the neck is limited without contrast. A neck mass is not excluded. Generalized neck graciela ma/induration may be postsurgical or posttreatment in nature. Infection, such as cellulitis not exclu ded. Endotracheal tube terminates 5.6 cm above the doug, consider advancing by 1.6 cm. Pulmonary findings consistent with aspiration pneumonia. Small bilateral pleural effusions. Mediastinal lymphadenopathy. Rectal wall thickening as can be seen with proctitis. Mild fecal impaction with findings suggestive of constipation. Possible decubitus ulcer over the right buttock. Reviewed, dictated and finalized at location K. INE I COREMAKER IMPRESSION: Evaluation of the neck is limited without contrast. A neck mass is not excluded . Generalized neck edema/induration may be postsurgical or posttreatment in linda ure. Infection, such as cellulitis not excluded. Endotracheal tube terminates 5.6 cm above the doug, consider advancing by 1.6 cm. Pulmonary findings consistent with aspiration pneumonia. Small bilateral pleural effusions. Mediastinal lymphadenopathy. Rectal wall thickening as can be seen with proctitis. Mild fecal impaction with findings suggestive of constipation. Possible decubitus ulcer over the right buttock.
--- NOTE | ~2023-12-29 | XR_ITS ---
Upright portable view of the abdomen Clinical history: NG tube placement Findings: NG tube is in satisfactory position. Percutaneous gastrostomy tube also in place. Bowel gas pattern is nonspecific. No evidence for obstruction or free air. No abnormal mass lesion or calcific ation is seen. Osseous structures are intact. Impression: NG tube in satisfactory position. Percutaneous gastrostomy tube also in place. Reviewed, dictated and finalized at location . PERSON Impression: NG tube in satisfactory position. Percutaneous gastrostomy tube also in place.
--- NOTE | ~2023-12-29 | XR_ITS ---
EXAMINATION: XR chest 1V portable DATE: 01/02/2024 10:35 INDICATION: Endotracheal tube adjustment. TECHNIQUE: A single frontal view of the chest was obtained. COMPARISON: Chest single view at 10:18 AM FINDINGS: There is mild scarring at the lung apices. There are airspace opacities in the mid and lowe r lung zones, right worse than left. No pleural effusion or pneumothorax. The heart size is normal. T he endotracheal tube tip is 4.1 cm above the doug. A left internal jugular central venous catheter is seen with tip in the left brachiocephalic vein. IMPRESSION: 1. Stable airspace opacities in the mid and lower lung zones, consistent with pneumonia. Reviewed, dictated and finalized at location A. ACE PROCESS PLANT OPERATOR IMPRESSION: 1. Stable airspace opacities in the mid and lower lung zones, consistent with p neumonia.
--- NOTE | ~2023-12-29 | XR_ITS ---
Portable chest x-ray Comparison: 12/30/2023 Clinical History: Respiratory failure Findings: Endotracheal tube and left IJ line are in place. There is probable chronic interstitial di sease and/or COPD. There is improving hazy bibasilar airspace disease. Cardiomediastinal silhouette is stable. Bones and soft tissues are unremarkable. Impression: Improving bibasilar hazy airspace disease. Probable underlying COPD and/or chronic interstitial disease. Support tubes, as above. Reviewed, dictated and finalized at location . AL HEALTH NURSE PRACTITIONER Impression: Improving bibasilar hazy airspace disease. Probable underlying COPD and/or chronic interstitial disease. Support tubes, as above.
--- NOTE | ~2023-12-29 | XR_ITS ---
Portable chest x-ray Comparison: 12/29/2023 at 3:47 AM Clinical History: Tube placement Findings: Endotracheal tube and NG tube are in satisfactory positions. Extensive bibasilar consolida tion and present. Cardiomediastinal silhouette is stable. Bones and soft tissues are unremarkable. Impression: Support tubes in place, as above. Stable bibasilar consolidation. Correlate for moderate pulmonary edema versus bibasilar pneumonia. Reviewed, dictated and finalized at location . ION REPAIRER Impression: Support tubes in place, as above. Stable bibasilar consolidation. Correlate for moderate pulmonary edema versus b ibasilar pneumonia.
--- NOTE | ~2023-12-29 | XR_ITS ---
Portable chest x-ray Comparison: 01/05/2024 Clinical History: Pneumonia Findings: There is mild bibasilar haziness. No pleural effusion or pneumothorax. Cardiomediastinal silhouette is stable. Bones and soft tissues are unremarkable. Impression: Mild bibasilar haziness. Correlate for mild bibasilar pulmonary edema versus possible bibasilar pneum onia. Reviewed, dictated and finalized at location . ICAL REHAB SPECIALIST Impression: Mild bibasilar haziness. Correlate for mild bibasilar pulmonary edema versus po ssible bibasilar pneumonia.
--- NOTE | ~2023-12-29 | XR_ITS ---
Portable chest x-ray Comparison: 12/29/2023 Clinical History: Line placement Findings: Endotracheal tube, NG tube, and left-sided central venous line are in satisfactory positio ns. No pneumothorax evident. Bibasilar consolidation is again present. Probable small right pleural e ffusion. Cardiomediastinal silhouette is stable. Bones and soft tissues are unremarkable. Impression: Support tubes, as above. No pneumothorax. Bibasilar consolidation and probable small right pleural effusion. Correlate for pulmonary edema vers us pneumonia. Reviewed, dictated and finalized at location M. RVISOR FIREARMS Impression: Support tubes, as above. No pneumothorax. Bibasilar consolidation and probable small right pleural effusion. Correlate fo r pulmonary edema versus pneumonia.
--- NOTE | ~2023-12-29 | XR_ITS ---
EXAMINATION: XR chest ET placement DATE: 01/02/2024 10:35 INDICATION: Intubation. TECHNIQUE: A single frontal view of the chest was obtained on 2 radiographs. COMPARISON: Chest single view at 5:11 AM, chest CT 12/29/2023 FINDINGS: There is mild scarring at the lung apices. There are airspace opacities in the mid and lowe r lung zones, right worse than left. No pleural effusion or pneumothorax. The heart size is normal. T he endotracheal tube tip is 6.7 cm above the doug. A left internal jugular central venous catheter is seen with tip in the left brachiocephalic vein. There are surgical clips in right neck. IMPRESSION: 1. Stable airspace opacities in the mid and lower lung zones, consistent with pneumonia. Reviewed, dictated and finalized at location A. FEL CART COOK IMPRESSION: 1. Stable airspace opacities in the mid and lower lung zones, consistent with p neumonia.
--- NOTE | ~2023-12-29 | XR_ITS ---
EXAMINATION: XR chest 1V portable DATE: 12/30/2023 08:32 INDICATION: Endotracheal tube adjustment TECHNIQUE: frontal view of the chest was obtained. COMPARISON: Chest radiograph dated 12/30/2023 FINDINGS: Endotracheal tube tip 4.5 cm above the doug. Left internal jugular central venous catheter with dis jody tip at the confluence of the left brachiocephalic vein and superior vena cava. Coarse interstitial and airspace opacities in the bilateral mid and lower lung zones. Increased lucen cy in the upper lung zones consistent with emphysema. No pleural effusion or pneumothorax. The cardio mediastinal silhouette is normal. Pressure surgical clips at the neck. IMPRESSION: 1. Emphysema with opacities in the bilateral mid and lower lung zones consistent with pulmonary edema and/or pneumonia. Reviewed, dictated and finalized at location B. TRAFFICKER IMPRESSION: 1. Emphysema with opacities in the bilateral mid and lower lung zones consisten t with pulmonary edema and/or pneumonia.
--- NOTE | ~2023-12-29 | XR_ITS ---
Portable chest x-ray Comparison: 05/18/2022 Clinical History: Shortness of breath Findings: There is extensive bibasilar pulmonary airspace disease, compatible with moderate pulmonar y edema. No definite pleural effusion or pneumothorax. Cardiomediastinal silhouette is stable. Bones and soft tissues are unremarkable. Impression: Moderate bibasilar pulmonary edema versus bibasilar pneumonia. Correlate clinically. Reviewed, dictated and finalized at location . D CARE NURSE Impression: Moderate bibasilar pulmonary edema versus bibasilar pneumonia. Correlate clinic ally.
--- NOTE | ~2023-12-29 | XR_ITS ---
Portable chest x-ray Comparison: 12/31/2023 Clinical History: Respiratory failure Findings: Endotracheal tube and left-sided central venous line are in place. There is hazy and inter stitial bibasilar/perihilar pulmonary disease. Probable underlying COPD. Cardiomediastinal silhouett e is stable. Bones and soft tissues are unremarkable. Impression: Probable mild to moderate bibasilar pulmonary edema. Correlate clinically for pneumonia. Probable underlying COPD. Support tubes, as above. Reviewed, dictated and finalized at location . AID Impression: Probable mild to moderate bibasilar pulmonary edema. Correlate clinically for p neumonia. Probable underlying COPD. Support tubes, as above.
--- NOTE | ~2023-12-29 | XR_ITS ---
Portable chest x-ray Comparison: 12/29/2023 at 706 exam Clinical History: Hypoxia Findings: Endotracheal tube, NG tube, and left-sided central venous line are in satisfactory positio ns. Bibasilar consolidation is present. Probable minimal right pleural effusion. No pneumothorax. Ca rdiomediastinal silhouette is stable. Bones and soft tissues are unremarkable. Impression: Support tubes, as above. Stable bibasilar pulmonary consolidation. Correlate for pulmonary edema versus pneumonia. Minimal right pleural effusion. Reviewed, dictated and finalized at location M. TING MACHINE HELPER Impression: Support tubes, as above. Stable bibasilar pulmonary consolidation. Correlate for pulmonary edema versus pneumonia. Minimal right pleural effusion.
--- NOTE | 2023-12-29 03:40 | ECG_ITS ---
Test Date: 2023-12-29 03:39:07 Measurements Intervals [place] Rate: 98 P: 39 TX: 124 QRS: -52 QRSD: 100 T: 46 QT: 358 QTc: 459 Interpretive Statements SINUS RHYTHM POSSIBLE LEFT ATRIAL ENLARGEMENT LEFT ANTERIOR FASCICULAR BLOCK POSSIBLE LEFT VENTRICULAR HYPERTROPHY CONSIDER ANTEROSEPTAL INFARCT, AGE INDETERMINATE BASELINE ARTIFACT- I, III, AVR, AVL, AVF, V1, V4-V6 ABNORMAL ECG No previous ECG available for comparison Electronically Signed On 12-29-2023 07:03:50 PRINT INSPECTOR by West Ortiz D.O.
--- NOTE | 2023-12-29 03:47 | PC.NURSE ---
Patients arrives and states patient had received a g-tube feeding and then vomited and c/o burning in his lungs . Patients states hx of aspiration pneumonia with previous intubations due to severity. Patient placed on NRB mask and O2 increased from 87% to 89%. RT in room as this time with ERP.
[2023-12-29] MEDS: SODIUM CHLORIDE 0.9% IV 500 ML 999 ML IV CONT (03:50)
--- NOTE | 2023-12-29 03:55 | PC.NURSE ---
ERP in room, squeezing patients 500ml bolus for alicia pf 72/52. VORB to also finish EMS started fluids of LR, to infuse rest of bag of 700mls. Patient saturating at 86% onNRB, ERP gives VORB to place patient on bipap.
--- NOTE | 2023-12-29 04:02 | PC.NURSE ---
Patient placed on Bipap at this time with 14/6 and peep of 7 by RT per EUGENIA Solano. Patient tolerating mask well.
--- NOTE | 2023-12-29 04:06 | PC.NURSE ---
ERP in room, patient on Bipap, states prepare patient for intubation. Patient and verbalize understanding. Patients sent to waiting room. VORB to prepare 30mg etomidate, 70mg of satya for intubation. ERP using Mac and use 7.5 ET tube. marketing secretary notified to have anesthesia stone cleaner for difficult intubation, have cric kit ready.
[2023-12-29 04:07] LABS: Basophils Percent Auto 0.4 % (0.2-1.2); Eosinophils Percent Auto 0.2 % (0-4.4); Hematocrit 47.2 % (42.0-52.0); Hemoglobin 15.9 g/dL (14.0-18.0); Immature Granulocyte Absolute 0.01 K/mm3 (0.00-0.031); Immature Granulocyte Percent A 0.2 % (0-0.5); Lymphocytes Absolute Auto 0.29 K/mm3 (0.9-3.2); Lymphocytes Percent Auto 6.1 % (18.3-44.2); Mean Corpuscular HGB Conc 33.7 g/dl (32-36); Mean Corpuscular Hemoglobin 33.1 pg (26-34); Mean Corpuscular Volume 98.3 fl (80-100); Monocytes Absolute Auto 0.3 K/mm3 (0.1-0.6); Monocytes Percent Auto 6.3 % (2.6-8.5); Neutrophils Absolute Auto 4.2 K/mm3 (1.3-6.7); Neutrophils Percent Auto 86.8 % (45.5-73.1); Platelet Count Result 151 k/mm3 (150-375); Red Cell Distribution Width 13.5 % (11.5-14.5); White Blood Count 4.8 K/mm3 (4.5-10.0)
--- NOTE | 2023-12-29 04:13 | PC.NURSE ---
Addendum entered by Ann Marie Dominguez RN 12/29/23 07:31: ET tube was secured at 25 at the lip, not 52, mistaken entry of 52. Original Note: hand stonecutter states anesthesia that was office manager receptionist denied request to come in. Time out, intubating to protect airway and patient tiring out. RT and EPR at head of bed. Sedation and intubation meds are VORB 30mg etomidate 70mg satya. 0415 30mg of etomidate given and flushed. 0415 70mg satya given and flushed. ERP using Mac 4 with direct intubation using 7.5 ETtube. Patient suctioned prior to ET tube insertion. ERP placed ET at 0417, no color change, tube removed by ERP and patient bagged. 0417 Anesthesia arrives at bedside. RT bagging patient. ERP states patient vocal cords are very deep. Patient saturating at 95% with bagging. 0420 Anesthesia at [facility] using Mac 4 to visualize airway and requests glidescope be set up, but not needed. 0421 Anesthesia intubated patient with Mac 4, with 7.5 tube, positive color change, visible chest rise and fall, bilateral breath sounds. Tubes secured at 52 at lip.
[2023-12-29 04:18] LABS: Lactic Acid Reflex 3.3 mmol/L (0.7-2.0)
--- NOTE | 2023-12-29 04:25 | ED_ITS ---
HPI - General Adult General Chief complaint: Unspecified Stated complaint: hypotension Source: patient, family and EMS Mode of arrival: EMS Limitations: clinical condition (1-2 word dyspnea and marked tachypnea along with phonation issues) History of Present Illness HPI narrative: Patient presents in respiratory distress. He has had his G-tube in place for 2 years and had it exchanged at [facility] today. Overnight, he developed immediate difficulty breathing and felt like his lungs were burning and his throat was burning as well. He takes all of his nutrients by G-tube however he has a history of throat cancer status post radiation this leads to a lot of mucus /phlegm production. he states in the past 7 years he has had several episodes of pneumonia due to aspiration including requiring intubation and mechanical ventilation during which states he a myocardial infarction. He was recently prescribed Augmentin as prophylaxis for this but had not started taking it yet. EMS arrived and found him to be saturating 78% on room air although the pulse oximeter was not reading very well. He improved only slightly take 85-88% on nasal cannula/non-rebreather and so they trialed CPAP however his blood pressure dropped significantly so they placed him back on a non-rebreather. Wheezes were then appreciated and so They administered a DuoNeb. He denies any recent fever Or coughs. states that when he woke up he complained that he felt cold And was short of breath. He had sudden nausea and vomited liquid. Over the last day he has had decreased G-tube feeds. They took his temperature and it was low, less than 96? F. he got under some blankets but then he stated that his hands felt wet she notes that he was diaphoretic. He is not on home oxygen. Related Data Home Medications Medication Instructions Recorded Confirmed zolpidem 10 mg tablet 10 mg feeding tube HS PRN Sleep 09/07/21 05/19/22 finasteride 5 mg tablet (Proscar) 5 mg feeding tube DAILY 03/05/22 05/19/22 diazepam 10 mg tablet (Valium) 15 mg PO TID PRN Muscle Spasm 05/19/22 05/19/22 ondansetron HCl 4 mg tablet 4 mg feeding tube Q3-4H PRN Acid 05/19/22 05/19/22 Reflux Allergies Allergy/AdvReac Type Severity Reaction Status Date / Time No Known Allergies Allergy Verified 08/18/22 12:58 [facility] Past Medical History Medical History Cervical spine disease Constipation Gastrostomy tube dependent GERD (gastroesophageal reflux disease) History of aspiration pneumonia History of throat cancer XRT and surgery Hypothyroid Malfunction of gastrostomy tube Spina bifida as a child with surgery; residual 'bladder issues' Surgical History Surgical History History of ear, nose, and throat (ENT) surgery Family History Family History Mother Colon cancer Social History Social History Social History: Lives at home with . Never smoked. No alcohol and drug use. Full code. would be the Individual would make medical decisions for him if he is unable Smoking status: Never smoker Second hand tobacco smoke exposure: No Alcohol intake: never Substance use: never Substance use type: does not use Lack of Transportation: No Lack of Food: Never True Current Housing: I Have Housing Concerned About Future Housing: No Difficulty Paying Gas/Electric Bills: No Difficulty Paying for Meds: No Currently Unemployed: No Education: Bachelor's Degree Difficulty w/ Childcare or Family Care: No Living arrangements: with family Gender identity (if verbalized by the patient): Male Sexual Orientation (if Verbalized by the Patient): Straight or Heterosexual Spiritual care concerns: No Agree to blood products: Yes Exam Narrative: GENERAL: well-nourished, in acute distress. HEAD: Normocephalic, atraumatic. EYES: Non injected, non icteric ENT: Nares clear, no rhinorrhea or epistaxis. NECK: Supple with full range of motion CHEST: Speaking in 1-2 word sentences. respiratory distress with tachypnea, accessory muscle usage. coarse bilateral breath sounds but without appreciable crackles or wheezes. HEART: Tachycardic rate and rhythm. . ABDOMEN: Soft, nondistended. G-tube present and intact. EXTREMITIES: Normal range of motion. No lower extremity edema. SKIN: Warm, dry, no rash. NEURO: No focal deficits. Alert and oriented x3. dysphonia, chronic. PSYCH: Normal mood and affect. Course Vital Signs Vital signs: Vital Signs Temperature 99.5 F 12/29/23 03:32 Pulse Rate 100 12/29/23 03:32 Respiratory Rate 23 H 12/29/23 03:32 Blood Pressure 96/63 L 12/29/23 03:32 Pulse Oximetry 87 L 12/29/23 03:32 Oxygen Delivery Room Air 12/29/23 03:32 Temperature 101.8 F H 12/29/23 07:29 Pulse Rate 97 12/29/23 07:37 Respiratory Rate 20 12/29/23 07:37 Blood Pressure 63/43 L 12/29/23 07:24 Pulse Oximetry 98 12/29/23 07:24 Oxygen Delivery Mechanical Ventilation 12/29/23 07:24 Oxygen Flow Rate 15 12/29/23 03:47 Fraction of Inspired Oxygen 100 12/29/23 07:24 Procedures Central Line Placement Left IJ: Central Line Date: 12/29/23 Central Line Time: 06:40 Discussed w/ the patient/family/POA,the placement of a central venous catheter, including its clinical necessity/indication & associated potential risks, benifits and alternatives.: Yes The patient/family/POA understand(s) and acknowledge(s) the need to proceed with central venous catheter insertion as an important element of the patient's clinical management.: Yes Patient Placed on Monitor/Pulse Ox: Yes Max. Sterile Barrier Technique: Caps, large sterile sheet and hand hygiene Central Line Prep: 2% chlorhexidine scrub Technique: US-Guided Local Anesthetic: lidocaine 1% Amount of anesthesia used (mL): 5 Ultrasound Used for Placement: Yes Central Line Lumen Inserted: triple Post Procedure: sutured in place, good blood return, all ports aspirated, flushed, capped and sterile dressing applied Post Procedure X-Ray: tip of catheter in good position and no pneumothorax seen Patient Tolerated Procedure: well and no complications Intubation Intubation #1: Intubation Date: 12/29/23 Time out performed: Yes sedative: Etomidate Mg Given: 25 paralytic: Rocuronium Mg Given: 75 Laryngoscope: Lucas (4) Tube Size (cm): 7.5 Method of Intubation: orotracheal Number of Attempts: 1 Intubation Complications: difficult intubation Additional Comments: able to visualize vallecula and epiglottis however very difficult to appreciate cords. Tube initially inserted but without sufficient color change so ET tube is removed. anesthesia had been called in anticipation of a difficult airway given patient's history of cancer and radiation felt to likely distort anatomy. Patient bagged via BVM and maintained SPO2 95-98% this way while patient was intubated by CRUISE COUNSELOR who stated tube was visualized to pass through the vocal cords. patient has a very deep airway and a long neck. color change appreciated on colorimeter and equal breath sounds are heard bilaterally. Secured at 25cm. Medical Decision Making MDM Narrative Medical decision making narrative: Patient Is a 68-year-old exceedingly pleasant male who presents in respiratory distress. History of throat cancer status post radiation and recurrent episodes of aspiration pneumonia that previously required intubation and mechanical ventilation. Patient states he would want this to be done again if it needed to be. in the emergency department, he is initially afebrile but tachypneic and hypotensive as well as hypoxic. No history of CHF. Patient has coarse lung sounds bilaterally. He is markedly tachypneic at times breathing 30-40 times per minute and upwards of this. Trialed nasal cannula and NRB and even BiPAP but with only improvement to 88-92% and patient continues to be very tachypneic with accessory muscle usage. CXR concerning for pneumonia. He is alert and oriented but states he is getting tired and believes he needs to go on the vent. Patient initially given 1.5 L of fluid bolus squeezed in which improves blood pressure for periintubation. intubation performed as above. Urethral catheter inserted and patient placed on ventilator at settings respiratory rate 20, AC mode, tidal volume 500 given patient's height, 100% FiO2, peep 7. Given the Lactic acidosis as well as the vital signs, there is concern for sepsis and strong consideration is that this is due to pneumonia. sepsis protocol initiated and patient is to receive 30 cc/kg. fentanyl ordered as sedation. Initiated broad-spectrum antibiotics in the form of vancomycin, ceftriaxone, and azithromycin. Patient continues to be very alert and oriented. Versed ordered for additional sedation. these are continually uptitrated and although patient does appear comfortable on the vent he is very awake and engaged in care, following commands. Patient discussed with on-call summer clerk Dr Rodríguez who recommends switching to Unasyn given concern for aspiration pneumonia. This addition/change is made. Discussed with fire protection designer hospitalist who agrees to admission. She does call back and state given patient's blood pressure, ICU recommend/requesting central line be inserted. Central line inserted as above as he has several episodes of hypotension though intermittently with normal blood pressure readings. Norepinephrine started peripherally before central line insertion. patient tolerates procedure well and is awake and alert throughout. did administer 50 mg propofol post insertion given patient is so easily able to move while ventilated, to allow for brief/better sedation and to obtain post procedure Xray which is without PTX. Critical Care: 1 or more vital organ systems impaired with a high probability of imminent or life-threatening deterioration in the patient's condition requiring frequent personal assessment and manipulation of the patient's condition. This included time spent evaluating the patient, speaking with EMS pre-hospital personnel and family, reviewing/interpreting laboratory/imaging studies, discussing the case with consultants or admitting teams, retrieving data and reviewing charts, monitoring for decompensation, documenting the visit, and performing bundled procedures exclusive of separately billed procedures. Differential Diagnosis Differential Diagnosis: acute heart failure, pneumonia, sepsis, acute viral syndrome; considered PE but patient's history favors other etiologies Vital Signs Vital Signs: Vital Signs Temperature 99.5 F 12/29/23 03:32 Pulse Rate 100 12/29/23 03:32 Respiratory Rate 23 H 12/29/23 03:32 Blood Pressure 96/63 L 12/29/23 03:32 Pulse Oximetry 87 L 12/29/23 03:32 Oxygen Delivery Room Air 12/29/23 03:32 Temperature 101.8 F H 12/29/23 07:29 Pulse Rate 97 12/29/23 07:37 Respiratory Rate 20 12/29/23 07:37 Blood Pressure 63/43 L 12/29/23 07:24 Pulse Oximetry 98 12/29/23 07:24 Oxygen Delivery Mechanical Ventilation 12/29/23 07:24 Oxygen Flow Rate 15 12/29/23 03:47 Fraction of Inspired Oxygen 100 12/29/23 07:24 Lab Data Lab results reviewed: Yes I reviewed the patient's lab results. 12/29/23 03:52 12/29/23 03:52 Labs: Lab Results 12/29/23 12/29/23 12/29/23 Range/Units 03:51 03:52 03:52 WBC 4.8 (4.5-10.0) K/mm3 RBC 4.80 (4.6-6.20) M/mm3 Hgb 15.9 (14.0-18.0) g/dL Hct 47.2 (42.0-52.0) % MCV 98.3 (80-100) fl MCH 33.1 (26-34) pg MCHC 33.7 (32-36) g/dl RDW 13.5 (11.5-14.5) % Plt Count 151 (150-375) k/mm3 MPV 13.0 H (7.4-10.4) fl Immature Gran % (Auto) 0.2 (0-0.5) % Neut % (Auto) 86.8 H (45.5-73.1) % Lymph % (Auto) 6.1 L (18.3-44.2) % [place] % (Auto) 6.3 (2.6-8.5) % Eos % (Auto) 0.2 (0-4.4) % Baso % (Auto) 0.4 (0.2-1.2) % Lymph # (Auto) 0.29 L (0.9-3.2) K/mm3 [place] # (Auto) 0.3 (0.1-0.6) K/mm3 Eos # (Auto) 0.0 (0-0.3) K/mm3 Baso # (Auto) 0.0 (0.0-0.1) K/mm3 Abs Immat Gran (auto) 0.01 (0.00-0.031) K/mm3 Absolute Neuts (auto) 4.2 (1.3-6.7) K/mm3 Absolute Nucleated RBC 0.000 (0.0-0.012) K/mm3 Nucleated RBC % 0.0 (0.0-0.2) % PT 13.2 (11.1-14.7) Seconds INR 1.0 APTT 25.6 (22.3-36.8) Seconds Minute Volume Not Reportable Vent Mode Cmv Tidal Volume 500 ml PEEP 7 cmH2O Peak Inspir Pressure Not Reportable Pressure Support Not Reportable Sodium 135 L (137-145) mmol/L Potassium 4.2 (3.4-5.0) mmol/L Chloride 100 (98-107) mmol/L Carbon Dioxide 30 (22-30) mmol/L Anion Gap 5 (4-12) mmol/L BUN 29 H (9-20) mg/dL Creatinine 0.90 (0.7-1.3) mg/dL Estim Creat Clear Calc 73 ml/min Estimated GFR > 60 (59 - ) Glucose 117 H (65-110) mg/dL Lactic Acid 3.3 H (0.7-2.0) mmol/L Calcium 9.0 (8.4-10.2) mg/dL Total Bilirubin 1.1 (0.2-1.3) mg/dL AST 34 (17-59) U/L ALT 15 (6-50) U/L Alkaline Phosphatase 51 (38-126) U/L Troponin I < 0.012 Cancelled (0.000-0.034) ng/mL C-Reactive Protein < 0.5 (<1.0) mg/dL NT-Pro-B Natriuret Pep 188 H (19.9-100) pg/mL Total Protein 7.0 (6.3-8.2) g/dL Albumin 4.0 (3.5-5.1) g/dL Urine Color (Yellow) Urine Appearance (Clear) Urine pH (5.0-9.0) Ur Specific [place] (1.001-1.035) Urine Protein (Negative) mg/dL Urine Glucose (UA) (Negative) mg/dL Urine Ketones (Negative) mg/dL Ur Blood (Man) (Negative) Urine Nitrate (Negative) Urine Bilirubin (Negative) Urine Urobilinogen (<2.0) mg/dL Add Ur Microanalysis Leukocyte Esterase Rfl (Negative) JALEESA/UL Urine RBC (0-2) /hpf Urine WBC (0-3) /hpf Ur Squamous Epith Cells (Few) /hpf Amorphous Sediment (None) Urine Bacteria /hpf Urine Casts Influenza A (RT-PCR) Negative (Negative) Influenza B (RT-PCR) Negative (Negative) RSV (RT-PCR) Negative (Negative) SARS-CoV-2 RNA (RT-PCR) Negative (Negative) 12/29/23 Range/Units 04:48 WBC (4.5-10.0) K/mm3 RBC (4.6-6.20) M/mm3 Hgb (14.0-18.0) g/dL Hct (42.0-52.0) % MCV (80-100) fl MCH (26-34) pg MCHC (32-36) g/dl RDW (11.5-14.5) % Plt Count (150-375) k/mm3 MPV (7.4-10.4) fl Immature Gran % (Auto) (0-0.5) % Neut % (Auto) (45.5-73.1) % Lymph % (Auto) (18.3-44.2) % [place] % (Auto) (2.6-8.5) % Eos % (Auto) (0-4.4) % Baso % (Auto) (0.2-1.2) % Lymph # (Auto) (0.9-3.2) K/mm3 [place] # (Auto) (0.1-0.6) K/mm3 Eos # (Auto) (0-0.3) K/mm3 Baso # (Auto) (0.0-0.1) K/mm3 Abs Immat Gran (auto) (0.00-0.031) K/mm3 Absolute Neuts (auto) (1.3-6.7) K/mm3 Absolute Nucleated RBC (0.0-0.012) K/mm3 Nucleated RBC % (0.0-0.2) % PT (11.1-14.7) Seconds INR APTT (22.3-36.8) Seconds Minute Volume Vent Mode Tidal Volume ml PEEP cmH2O Peak Inspir Pressure Pressure Support Sodium (137-145) mmol/L Potassium (3.4-5.0) mmol/L Chloride (98-107) mmol/L Carbon Dioxide (22-30) mmol/L Anion Gap (4-12) mmol/L BUN (9-20) mg/dL Creatinine (0.7-1.3) mg/dL Estim Creat Clear Calc ml/min Estimated GFR (59 - ) Glucose (65-110) mg/dL Lactic Acid (0.7-2.0) mmol/L Calcium (8.4-10.2) mg/dL Total Bilirubin (0.2-1.3) mg/dL AST (17-59) U/L ALT (6-50) U/L Alkaline Phosphatase (38-126) U/L Troponin I (0.000-0.034) ng/mL C-Reactive Protein (<1.0) mg/dL NT-Pro-B Natriuret Pep (19.9-100) pg/mL Total Protein (6.3-8.2) g/dL Albumin (3.5-5.1) g/dL Urine Color Dark yellow (Yellow) Urine Appearance Cloudy H (Clear) Urine pH 7.5 (5.0-9.0) Ur Specific [place] 1.016 (1.001-1.035) Urine Protein 1+ H (Negative) mg/dL Urine Glucose (UA) Negative (Negative) mg/dL Urine Ketones Negative (Negative) mg/dL Ur Blood (Man) Negative (Negative) Urine Nitrate Negative (Negative) Urine Bilirubin Negative (Negative) Urine Urobilinogen 0.2 (<2.0) mg/dL Add Ur Microanalysis Reviewed Leukocyte Esterase Rfl Negative (Negative) JALEESA/UL Urine RBC 0-2 (0-2) /hpf Urine WBC 0-5 (0-3) /hpf Ur Squamous Epith Cells None seen (Few) /hpf Amorphous Sediment Few H (None) Urine Bacteria None seen /hpf Urine Casts 6-10 Influenza A (RT-PCR) (Negative) Influenza B (RT-PCR) (Negative) RSV (RT-PCR) (Negative) SARS-CoV-2 RNA (RT-PCR) (Negative) ABG Data ABG results: 12/29/23 03:51 Puncture Site Left radial ABG pH 7.407 ABG pCO2 40.1 ABG pO2 65.8 L ABG PO2/FiO2 Ratio 0.66 ABG HCO3 24.7 ABG O2 Saturation 93.2 L ABG O2 Content 20.8 ABG Base Excess 0.1 A-a Gradient 607.1 Oxyhemoglobin 91.8 Total Hemoglobin 16.1 O2 Delivery Device Ventilator O2 Liters/Min Not Reportable Vent Rate 20 FiO2 100 Attestation: I personally reviewed and interpreted this ABG as follows: Interpretation: Primary metabolic alkalosis, appropriately compensated respiratory acidosis Imaging Data Attestation: I personally reviewed and interpreted this imaging study as follows: My impression: Bilateral infiltrates on my independent interpretation Radiologist's impression: STAT RAD: Increased bilateral lower lobe interstitial opacities ECG Data EKG #1: Attestation: I personally reviewed and interpreted this ECG as follows: ECG completion date: 12/29/23 ECG completion time: 03:39 Interpretation: Normal sinus rhythm at a rate of 90 beats per minute. OK interval 124. QRS 100 . QT/QTC 358/414. Good R-wave progression across the precordial leads. Left anterior fascicular block with rS complexes in leads II, III, aVF (small R waves, deep S waves), qR complexes in lead I , avL (small Q waves and tall R waves) and left axis deviation with Leads II, III and aVF negative and leads I and aVL positive. Critical Care Time Critical Care Time Critical Care Time: Yes Total Critical Care Time: 45 Discharge Plan Discharge Clinical Impression: Bilateral interstitial pneumonia, Hypoxia, On mechanically assisted ventilation, LAFB (left anterior fascicular block), Sepsis due to pneumonia Patient Disposition: Still a Patient Condition: Serious
--- NOTE | 2023-12-29 04:27 | PC.NURSE ---
Patient being bagged at this time, being placed on vent by RT. 16 F OG placed and 68 at the lip. Temp sensing palomares placed at this time. Xray called and on way to verify placement of ET and OG.
--- NOTE | 2023-12-29 04:33 | WPDANESEPPF ---
Anes - Initial Pre Proc Eval Procedure: Emergency intubation Date/Time: 12/29/23 04:33 Pre Op Diagnosis: Resp failure, Throat CA Pre Op Diagnosis: hypotension Patient Data Age: 68 Gender: M Height: 1.83 m Weight: 76.7 kg Last Vital Signs Temp 99.5 F 12/29/23 03:32 Pulse 101 H 12/29/23 04:23 Resp 17 12/29/23 04:23 BP 131/94 H 12/29/23 04:23 Pulse Ox 98 12/29/23 04:23 O2 Del Method Non-Rebreather Mask 12/29/23 03:47 O2 Flow Rate 15 12/29/23 03:47 Allergies Allergy/AdvReac Type Severity Reaction Status Date / Time No Known Allergies Allergy Verified 08/18/22 12:58 Home Medications Medication Instructions Recorded Confirmed Type zolpidem 10 mg tablet 10 mg feeding tube HS PRN Sleep 09/07/21 05/19/22 History finasteride 5 mg tablet (Proscar) 5 mg feeding tube DAILY 03/05/22 05/19/22 History diazepam 10 mg tablet (Valium) 15 mg PO TID PRN Muscle Spasm 05/19/22 05/19/22 History ondansetron HCl 4 mg tablet 4 mg feeding tube Q3-4H PRN Acid 05/19/22 05/19/22 History Reflux amoxicillin 875 mg-potassium 1 tablet PO Q12H #10 tabs 05/22/22 Rx clavulanate 125 mg tablet omeprazole magnesium 10 mg oral 20 mg PO DAILY #30 ea 05/22/22 Rx suspension,delayed release (Prilosec) polyethylene glycol 3350 17 gram 17 g feeding tube BID #30 ea 05/22/22 Rx oral powder packet (Miralax) Laboratory Tests 12/29/23 12/29/23 03:52 03:52 WBC 4.8 K/mm3 (4.5-10.0) RBC 4.80 M/mm3 (4.6-6.20) Hgb 15.9 g/dL (14.0-18.0) Hct 47.2 % (42.0-52.0) MCV 98.3 fl (80-100) MCH 33.1 pg (26-34) MCHC 33.7 g/dl (32-36) RDW 13.5 % (11.5-14.5) Plt Count 151 k/mm3 (150-375) MPV 13.0 H fl (7.4-10.4) Immature Gran % (Auto) 0.2 % (0-0.5) Neut % (Auto) 86.8 H % (45.5-73.1) Lymph % (Auto) 6.1 L % (18.3-44.2) [place] % (Auto) 6.3 % (2.6-8.5) Eos % (Auto) 0.2 % (0-4.4) Baso % (Auto) 0.4 % (0.2-1.2) Lymph # (Auto) 0.29 L K/mm3 (0.9-3.2) [place] # (Auto) 0.3 K/mm3 (0.1-0.6) Eos # (Auto) 0.0 K/mm3 (0-0.3) Baso # (Auto) 0.0 K/mm3 (0.0-0.1) Abs Immat Gran (auto) 0.01 K/mm3 (0.00-0.031) Absolute Neuts (auto) 4.2 K/mm3 (1.3-6.7) Absolute Nucleated RBC 0.000 K/mm3 (0.0-0.012) Nucleated RBC % 0.0 % (0.0-0.2) Sodium Pending Potassium Pending Chloride Pending Carbon Dioxide Pending Anion Gap Pending BUN Pending Creatinine Pending Estim Creat Clear Calc Pending Estimated GFR Pending Glucose Pending Lactic Acid 3.3 H mmol/L (0.7-2.0) Calcium Pending Total Bilirubin Pending AST Pending ALT Pending Alkaline Phosphatase Pending Troponin I Pending Cancelled NT-Pro-B Natriuret Pep Pending Total Protein Pending Albumin Pending Influenza A (RT-PCR) Pending Influenza B (RT-PCR) Pending RSV (RT-PCR) Pending SARS-CoV-2 RNA (RT-PCR) Pending Patient hx anesthesia problems: none Family hx anesthesia problems: none Results Review: All pre-operative results and documents have been reviewed as part of the pre-operative evaluation. [facility] Past Medical History Medical History Cervical spine disease Constipation Gastrostomy tube dependent GERD (gastroesophageal reflux disease) History of throat cancer XRT and surgery Hypothyroid Malfunction of gastrostomy tube Spina bifida as a child with surgery; residual 'bladder issues' Surgical History Surgical History History of ear, nose, and throat (ENT) surgery Family History Family History Mother Colon cancer Social History Social History Social History: Lives at home with . Never smoked. No alcohol and drug use. Full code. would be the Individual would make medical decisions for him if he is unable Smoking status: Never smoker Second hand tobacco smoke exposure: No Alcohol intake: never Substance use: never Substance use type: does not use Lack of Transportation: No Lack of Food: Never True Current Housing: I Have Housing Concerned About Future Housing: No Difficulty Paying Gas/Electric Bills: No Difficulty Paying for Meds: No Currently Unemployed: No Education: Bachelor's Degree Difficulty w/ Childcare or Family Care: No Living arrangements: with family Gender identity (if verbalized by the patient): Male Sexual Orientation (if Verbalized by the Patient): Straight or Heterosexual Spiritual care concerns: No Agree to blood products: Yes Anes - Eval Final PreProcedure Day of Procedure 12/29/23 04:33 Patient weight: normal Heart: regular rate and rhythm Airway: Mallampati scale class III, special considerations poor opening and poor extension and other (Hx of throat CA post Rad [place] ) Neurological: other ASA classification: IV Emergent: yes Anesthetic plan: proceed Results Review: All pre-operative results and documents have been reviewed as part of the pre-operative evaluation. Informed Consent: The patient's anesthetic plan and its attendant risks and benefits were discussed with the patient/family/POA. Questions were solicited and answers provided to the satisfaction of the patient/family/POA.
[2023-12-29 04:38] LABS: Influenza A QL RT-PCR Negative (Negative); Influenza B QL RT-PCR Negative (Negative); RSV RNA, RT-PCR Negative (Negative); SARS-CoV-2 RNA PCR Negative (Negative)
[2023-12-29 04:43] LABS: Alanine Aminotransferase 15 U/L (6-50); Alkaline Phosphatase 51 U/L (38-126); Anion Gap 5 mmol/L (4-12); Aspartate Amino Transferase 34 U/L (17-59); Bilirubin,Total 1.1 mg/dL (0.2-1.3); Blood Urea Nitrogen 29 mg/dL (9-20); Carbon Dioxide 30 mmol/L (22-30); Chloride 100 mmol/L (98-107); Estimated CRCL calculation 73 ml/min; Estimated Glomerular Filt Rate > 60; Glucose 117 mg/dL (65-110); NT Pro B Type Natriuretic Pept 188 pg/mL (19.9-100); Potassium 4.2 mmol/L (3.4-5.0); Sodium 135 mmol/L (137-145); Troponin I < 0.012 ng/mL (0.000-0.034)
[2023-12-29] MEDS: FENTANYL 2,500MCG/NS250ML(*CRX 2,500 MCG/250 ML BAG IV CONT (04:51)
[2023-12-29] MEDS: SODIUM CHLORIDE 0.9% IV 2,300 ML/1,000 ML BAG 999 ML IV CONT ×3 (04:59→06:25)
[2023-12-29 05:03] LABS: Alveolar/Arterial O2 Gradient 607.1 mmHg; Base Excess ABG 0.1 mEq/l (+/-2.0); Fractional Inspired Oxygen 100 %; HCO3 ABG 24.7 mEq/l (22.0-26.0); Modified Allen's Test Pass; Oxygen Content ABG 20.8 %vol (16.0-22.0); Oxygen Saturation ABG 93.2 % (95.0-100.0); Oxyhemoglobin 91.8 % THb (90.0-100.0); PCO2 ABG 40.1 mmHg (35.0-45.0); PO2 ABG 65.8 mmHg (80.0-100.0); PO2 FiO2 Ratio Arterial Blood 0.66 %; Prothrombin Time 13.2 Seconds (11.1-14.7); Site Drawn LEFT RADIAL; Total Hemoglobin 16.1 g/dL (12.0-18.0); pH ABG 7.407 (7.350-7.450)
[2023-12-29 05:04] LABS: Arterial Blood Gas PEEP 7 cmH2O; Arterial Blood Gas Tidal Volume 500 ml; Arterial Blood Gas Vent Mode CMV; Arterial Blood Gas Ventilator rate 20 /MIN; Device VENTILATOR; Partial Thromboplastin Time 25.6 Seconds (22.3-36.8)
[2023-12-29 05:05] LABS: CRP < 0.5 mg/dL (<1.0)
--- NOTE | 2023-12-29 05:24 | PC.NURSE ---
Mar not reflecting actual bolus intake, but patient did receive his ordered 2300ml IV fluid bolus.
[2023-12-29] MEDS: MIDAZOLAM 100MG/NS 100ML(*CRX) 100 MG/100 ML BAG IV CONT (05:30)
[2023-12-29] MEDS: PIPERACILLN/TAZ 3.375GM/NS50ML 3.375 GM/50 ML BAG IVPB ×4 (05:31→23:47)
[2023-12-29] MEDS: ACETAMINOPHEN 650 MG SUPPOSITORY RECTAL ×2 (05:31→10:41)
[2023-12-29 05:34] LABS: Add Urine Microscopic? YES; Appearance Urine Cloudy (Clear); Bacteria Urine None Seen /hpf; Bilirubin Urine Negative (Negative); Blood Urine Negative (Negative); Color Urine Dark Yellow (Yellow); Glucose Urine UA Negative (Negative); Ketones Urine Negative (Negative); Leukocyte Esterase Ur Negative LEU/UL (Negative); Need Manual Microscopic Reviewed; Nitrate Urine Negative (Negative); Protein Urine 1+ mg/dL (Negative); RBC Urine 0-2 /hpf (0-2); Specific Grav Ur 1.016 (1.001-1.035); Squamous Epithelial Cell Urine None Seen /hpf (Few); Urobilinogen Urine 0.2 mg/dL (<2.0); WBC Urine 0-5 /hpf (0-3); pH Urine 7.5 (5.0-9.0)
[2023-12-29 05:35] LABS: Amorphous Sediment Urine Few
[2023-12-29] MEDS: AZITHROMYCIN 500 MG/NS 250 ML 500 MG/250 ML BAG 250 MG IVPB (05:52)
--- NOTE | 2023-12-29 06:16 | PC.NURSE ---
ERP aware of pt VS and bp, set up for central line placement, and to start levo peripherally until central line placed. Orders placed in MAR. Consent signed by pts .
[2023-12-29] MEDS: NOREPINEPHRINE 8 MG/D5W 250 ML 8 MG/250 ML BAG 9.38 MG IV CONT (06:18)
--- NOTE | 2023-12-29 06:19 | PC.NURSE ---
Patient has remained awake and able to communicate with staff and throughout. ERP notified of patient being awake. Sedation titration used and patient meds adjusted per protocol. This RN has communicated with ERP about patient being awake and uncomfortable, no new orders and ERP states Patient is okay to be awake, we often sedate too deeply. It is okay for patients to assist with care while intubated. 0622 Central line kit placed in room and ultrasound machine at bedside. Patient started on levo peripherally at this time. Patient still awake and uncomfortable and trying to communicate with staff for his needs. Some needs understood by this RN and others. Patient adjusted in bed upon request and informed of procedures and testing that is being done and performed.
--- NOTE | 2023-12-29 06:30 | PC.NURSE ---
0630 ERP in room preparing patient for central line placement. 0640 Pts VS 97bpm, 100% vented, 21 RR, 151/90 bp, 100.8 temp. 0645 Pts VS 128/89 bp, 96bpm, 100% and 21 RR. 0650 ERP placing central line in left IJ, patient awake and cooperative with procedure. VS 92bpm, 100%, 20 RR, and 104/70bpm, 101.1 temp. 0653 ERP state all 3 lumens flush and have positive blood return. ERP securing central line with sutures at this time. Patient tolerating well and remains awake during procedure. [address] call and place order for xray for central line placement for verification. Order placed.
[2023-12-29 06:59] LABS: Reflex Lactic Acid Yes or No Add Lactic
[2023-12-29] MEDS: PROPOFOL IV EMULSION 200 MG/20 ML VIAL 100 MG IV PUSH (07:05)
[2023-12-29 07:14] LABS: MRSA (PCR) NOT DETECTED (NOT DETECTE)
[2023-12-29] MEDS: VANCOMYCIN 2,000 MG/NS 500 ML 2,000 MG/500 ML BAG 250 MG IVPB (07:39)
--- NOTE | 2023-12-29 08:23 | ADMGEN ---
This patient, Mal Akhtar, was admitted to Intensive Care Unit-2 at 0752. Patient/family oriented to hospital policies and general routines including ID bracelet, bed and alarms, visiting hours, pain management, procedures, bathroom and other care routines, personal items, smoking policy, room service/diet, and visiting hours. Information on how to activate the Rapid Response Team has been discussed. Patient/Family are encouraged to report perceived risks to care and to ask questions if they do not understand what they are told or what they should do.
[2023-12-29] MEDS: MIDAZOLAM HCL (*CRX) 2 MG/2 ML VIAL IV PUSH (08:24)
[2023-12-29] MEDS: ENOXAPARIN 40 MG/0.4 ML SYRINGE SUB-Q (09:05)
[2023-12-29] MEDS: MINERAL OIL/WHITE PETROLATUM OINTMENT 1 APPLIC EACH EYE ×2 (09:06→20:33)
[2023-12-29] MEDS: polyethylene glycoL 3350 17 GM POWD.PACK PO (09:06)
[2023-12-29] MEDS: PANTOPRAZOLE SODIUM IV 40 MG VIAL IV PUSH (09:06)
[2023-12-29] MEDS: HYDROCORTISONE SODIUM SUCCINATE 100 MG/2 ML VIAL IV PUSH ×2 (09:06→18:24)
[2023-12-29 09:43] LABS: Lactic Acid 3.2 mmol/L (0.7-2.0)
[2023-12-29 10:00] LABS: Procalcitonin 23.6 ng/mL
[2023-12-29 10:00] LABS: Troponin I 0.018 ng/mL (0.000-0.034)
--- NOTE | 2023-12-29 10:20 | WPDCNINT ---
Assessment and Plan Assessment and plan (1) Acute respiratory failure: Code(s): J96.00 - Acute respiratory failure, unspecified whether with hypoxia or hypercapnia Status: Acute Assessment and Plan: acute respiratory failure secondary to aspiration pneumonia chest x-ray reviewed. CT chest pending. ABG reviewed peep increased to 10 decreased at 1 450 wean FiO2 (2) Septic shock: Code(s): A41.9 - Sepsis, unspecified organism; R65.21 - Severe sepsis with septic shock Status: Acute Assessment and Plan: septic shock secondary to aspiration pneumonia. Patient continues to be to be hypotensive requiring high dose of Levophed. patient given additional 500 cc of IV fluid bolus. Will give 500 mL of 5% albumin bolus continue IV fluids add vasopressin and if needed epinephrine infusion 1 amp of bicarb IV push stress dose hydrocortisone blood and sputum culture empiric vanc and Zosyn (3) Nausea & vomiting: Code(s): R11.2 - Nausea with vomiting, unspecified Status: Acute Assessment and Plan: currently sedated. Place PEG tube to [facility] (4) Aspiration pneumonia: Qualifiers: Aspiration pneumonia type: unspecified Laterality: unspecified laterality Lung location: unspecified part of lung Qualified Code(s): J69.0 - Pneumonitis due to inhalation of food and vomit Code(s): J69.0 - Pneumonitis due to inhalation of food and vomit Status: Acute Assessment and Plan: see above Plan DVT prophylaxis - Lovenox Stress ulcer prophylaxis - PPI Nutrition - npo Code Status - Full Code I spoke to patient's at bedside updated her with patient's current status answered all questions. Total Critical Care Time - 40 minutes Due to a high probability of clinically significant, life threatening deterioration, the patient required my highest level of preparedness to intervene emergently and I personally spent this critical care time directly and personally managing the patient. This critical care time included obtaining a history; examining the patient; pulse oximetry; ordering and review of studies; arranging urgent treatment with development of a management plan; evaluation of patient's response to treatment; frequent reassessment; and discussions with other providers. It was exclusive of separately billable procedures and treating other patients and teaching time. Please see Assessment and Plan section and the rest of the note for further information on patient assessment and treatment Special Education Classroom Aide Consult Note Consult date: 12/29/23 Reason for consult: Acute respiratory failure, septic shock, aspiration pneumonia HPI: Mal Akhtar is a 68 year old male with past medical history of esophageal cancer is post surgery radiation therapy in severe dysphagia leading to PEG tube insertion and is completely on tube feeds presented to ER with chief complaint of shortness of breath. Patient has been admitted multiple times with aspiration pneumonia in the past and his states that yesterday patient started vomiting multiple times. He was complaining of burning in his throat from regurgitant liquid. She states this has happened in the past. She states that patient does get vomiting if he takes too much of tube feed at 1 time but yesterday symptoms were much severe. She did not notice any blood in the vomitus. . Prior to that patient was feeling fine and did not had any fever shortness of breath or chest.. patient presented with ER early this morning with respiratory distress and was intubated. Post intubation patient had drop in blood pressure and required IV fluid bolus leading to improvement in but improvement was transient and patient was started on Levophed infusion. A left IJ central venous catheter was placed. Patient now admitted to ICU for further evaluation management. Patient continues to be on a ventilator sedated and on vasopressors. History was obtained from chart review and patient's at bedside. Review of Systems Review of Systems: ROS unobtainable: Yes unobtainable due to endotracheal tube, unobtainable due to medical condition and unobtainable due to mental status PMFSH Past Medical History Medical History Cervical spine disease Constipation Gastrostomy tube dependent GERD (gastroesophageal reflux disease) History of aspiration pneumonia History of throat cancer XRT and surgery Hypothyroid Malfunction of gastrostomy tube Spina bifida as a child with surgery; residual 'bladder issues' Surgical History Surgical History History of ear, nose, and throat (ENT) surgery Family History Family History Mother Colon cancer Social History Social History Social History: Lives at home with . Never smoked. No alcohol and drug use. Full code. would be the Individual would make medical decisions for him if he is unable Smoking status: Never smoker Second hand tobacco smoke exposure: No Alcohol intake: never Substance use: never Substance use type: does not use Lack of Transportation: No Lack of Food: Never True Current Housing: I Have Housing Concerned About Future Housing: No Difficulty Paying Gas/Electric Bills: No Difficulty Paying for Meds: No Currently Unemployed: No Education: Bachelor's Degree Difficulty w/ Childcare or Family Care: No Living arrangements: with family Gender identity (if verbalized by the patient): Male Sexual Orientation (if Verbalized by the Patient): Straight or Heterosexual Spiritual care concerns: No Agree to blood products: Yes Meds Home Medications and Allergies Home Medications Medication Instructions Recorded Confirmed Type zolpidem 10 mg tablet 10 mg feeding tube HS PRN Sleep 09/07/21 05/19/22 History finasteride 5 mg tablet (Proscar) 5 mg feeding tube DAILY 03/05/22 05/19/22 History diazepam 10 mg tablet (Valium) 15 mg PO TID PRN Muscle Spasm 05/19/22 05/19/22 History ondansetron HCl 4 mg tablet 4 mg feeding tube Q3-4H PRN Acid 05/19/22 05/19/22 History Reflux amoxicillin 875 mg-potassium 1 tablet PO Q12H #10 tabs 05/22/22 Rx clavulanate 125 mg tablet omeprazole magnesium 10 mg oral 20 mg PO DAILY #30 ea 05/22/22 Rx suspension,delayed release (Prilosec) polyethylene glycol 3350 17 gram 17 g feeding tube BID #30 ea 05/22/22 Rx oral powder packet (Miralax) Allergies Allergy/AdvReac Type Severity Reaction Status Date / Time No Known Allergies Allergy Verified 08/18/22 12:58 Vital Signs Vital Signs - 24 hr 12/29/23 03:32 12/29/23 03:47 12/29/23 03:59 Temperature 37.5 C Pulse Rate 100 101 H Respiratory Rate 23 H 39 H Blood Pressure 96/63 L 115/76 Pulse Oximetry 87 L 87 L 93 Oxygen Delivery Room Air Non-Rebreather Mask Oxygen Flow Rate 15 Fraction of Inspired Oxygen 12/29/23 04:05 12/29/23 03:54 12/29/23 03:55 Temperature Pulse Rate 101 H 100 Respiratory Rate 33 H 29 H 25 H Blood Pressure 72/52 L Pulse Oximetry 91 82 L 83 L Oxygen Delivery Oxygen Flow Rate Fraction of Inspired Oxygen 12/29/23 03:57 12/29/23 03:58 12/29/23 04:00 Temperature Pulse Rate 101 H 98 102 H Respiratory Rate 27 H 24 H 35 H Blood Pressure 85/62 L 115/76 Pulse Oximetry 89 L 93 94 Oxygen Delivery Oxygen Flow Rate Fraction of Inspired Oxygen 12/29/23 04:01 12/29/23 04:02 12/29/23 04:04 Temperature Pulse Rate 104 H 104 H 104 H Respiratory Rate 39 H 27 H 23 H Blood Pressure 128/77 138/94 H Pulse Oximetry 93 92 95 Oxygen Delivery Oxygen Flow Rate Fraction of Inspired Oxygen 12/29/23 04:05 12/29/23 04:07 12/29/23 04:11 Temperature Pulse Rate 104 H 104 H 106 H Respiratory Rate 34 H 35 H 27 H Blood Pressure 129/79 134/92 H Pulse Oximetry 93 96 99 Oxygen Delivery Oxygen Flow Rate Fraction of Inspired Oxygen 12/29/23 04:12 12/29/23 04:15 12/29/23 04:16 Temperature Pulse Rate 103 H 103 H 96 Respiratory Rate 31 H 30 H 15 Blood Pressure 115/57 L 115/74 Pulse Oximetry 97 100 100 Oxygen Delivery Oxygen Flow Rate Fraction of Inspired Oxygen 12/29/23 04:17 12/29/23 04:21 12/29/23 04:23 Temperature Pulse Rate 98 103 H 101 H Respiratory Rate 18 21 H 17 Blood Pressure 137/88 131/94 H Pulse Oximetry 95 98 98 Oxygen Delivery Oxygen Flow Rate Fraction of Inspired Oxygen 12/29/23 04:37 12/29/23 04:51 12/29/23 05:01 Temperature Pulse Rate 112 H 110 H 106 H Respiratory Rate 20 29 H Blood Pressure Pulse Oximetry 98 Oxygen Delivery Mechanical Ventilation Oxygen Flow Rate Fraction of Inspired Oxygen 100 12/29/23 05:14 12/29/23 04:24 12/29/23 04:34 Temperature 37.3 C Pulse Rate 95 103 H 110 H Respiratory Rate 23 H 18 20 Blood Pressure Pulse Oximetry 98 100 Oxygen Delivery Oxygen Flow Rate Fraction of Inspired Oxygen 12/29/23 04:36 12/29/23 04:41 12/29/23 04:50 Temperature 37.6 C H 37.9 C H 38.2 C H Pulse Rate 110 H 111 H 110 H Respiratory Rate 18 20 20 Blood Pressure 166/102 H 151/99 H Pulse Oximetry 100 99 95 Oxygen Delivery Oxygen Flow Rate Fraction of Inspired Oxygen 12/29/23 04:51 12/29/23 05:00 12/29/23 05:01 Temperature 38.2 C H 38.4 C H 38.4 C H Pulse Rate 109 H 107 H 106 H Respiratory Rate 20 29 H 28 H Blood Pressure 92/72 L 71/48 L Pulse Oximetry 96 94 93 Oxygen Delivery Oxygen Flow Rate Fraction of Inspired Oxygen 12/29/23 05:06 12/29/23 05:11 12/29/23 05:15 Temperature 38.4 C H 38.5 C H 38.4 C H Pulse Rate 102 H 98 96 Respiratory Rate 26 H 23 H 24 H Blood Pressure 69/53 L 94/71 L Pulse Oximetry 95 98 100 Oxygen Delivery Oxygen Flow Rate Fraction of Inspired Oxygen 12/29/23 05:16 12/29/23 05:30 12/29/23 05:51 Temperature 38.4 C H Pulse Rate 97 95 94 Respiratory Rate 22 H 21 H 22 H Blood Pressure 97/62 L Pulse Oximetry 100 Oxygen Delivery Oxygen Flow Rate Fraction of Inspired Oxygen 12/29/23 05:52 12/29/23 05:17 12/29/23 05:26 Temperature 38.4 C H 38.3 C H Pulse Rate 93 96 96 Respiratory Rate 21 H 24 H 20 Blood Pressure 110/78 Pulse Oximetry 100 100 Oxygen Delivery Oxygen Flow Rate Fraction of Inspired Oxygen 12/29/23 05:33 12/29/23 05:36 12/29/23 05:45 Temperature 38.2 C H 38.2 C H 38.2 C H Pulse Rate 96 97 92 Respiratory Rate 27 H 24 H 20 Blood Pressure 132/89 Pulse Oximetry 100 100 100 Oxygen Delivery Oxygen Flow Rate Fraction of Inspired Oxygen 12/29/23 05:56 12/29/23 06:18 12/29/23 06:28 Temperature 38.2 C H 38.3 C H Pulse Rate 93 90 100 Respiratory Rate 21 H 26 H Blood Pressure 110/75 60/49 L 158/100 H Pulse Oximetry 100 100 Oxygen Delivery Oxygen Flow Rate Fraction of Inspired Oxygen 12/29/23 06:57 12/29/23 07:09 12/29/23 05:58 Temperature 38.2 C H Pulse Rate 93 83 92 Respiratory Rate 20 24 H Blood Pressure 109/76 65/55 L Pulse Oximetry 100 100 Oxygen Delivery Oxygen Flow Rate Fraction of Inspired Oxygen 12/29/23 06:04 12/29/23 06:32 12/29/23 07:15 Temperature 38.2 C H 38.3 C H Pulse Rate 89 100 88 Respiratory Rate 24 H 19 20 Blood Pressure 60/49 L 109/76 Pulse Oximetry 100 100 Oxygen Delivery Oxygen Flow Rate Fraction of Inspired Oxygen 12/29/23 07:15 12/29/23 07:22 12/29/23 07:24 Temperature Pulse Rate 87 87 Respiratory Rate Blood Pressure 51/42 L 63/43 L Pulse Oximetry 98 Oxygen Delivery Mechanical Ventilation Oxygen Flow Rate Fraction of Inspired Oxygen 100 12/29/23 07:24 12/29/23 07:15 12/29/23 07:29 Temperature 38.7 C H 38.8 C H Pulse Rate 88 89 Respiratory Rate 20 20 Blood Pressure 63/43 L Pulse Oximetry 98 Oxygen Delivery Oxygen Flow Rate Fraction of Inspired Oxygen 12/29/23 07:37 12/29/23 07:55 12/29/23 09:45 Temperature Pulse Rate 97 103 H 92 Respiratory Rate 20 Blood Pressure 70/51 L Pulse Oximetry 100 Oxygen Delivery Mechanical Ventilation Oxygen Flow Rate Fraction of Inspired Oxygen 100 12/29/23 09:55 12/29/23 10:00 12/29/23 10:05 Temperature Pulse Rate 91 91 93 Respiratory Rate Blood Pressure 69/54 L 65/54 L 77/61 L Pulse Oximetry Oxygen Delivery Oxygen Flow Rate Fraction of Inspired Oxygen 12/29/23 10:10 12/29/23 10:15 12/29/23 10:20 Temperature Pulse Rate 94 95 98 Respiratory Rate Blood Pressure 78/63 L 89/68 L 100/75 Pulse Oximetry Oxygen Delivery Oxygen Flow Rate Fraction of Inspired Oxygen Exam Narrative: General: Pt is sedated, intubated and on mechanical ventilation Lungs/Chest: Trachea central Coarse BS B/L, No crackles or wheezing. Cardiac: RRR. Normal S1 S2. No murmurs Circulation: Pedal pulses are intact and symmetrical. Abdomen: Decreased bowel sounds. peg tube in place. Soft. NT. ND. Extremities: No clubbing, cyanosis or edema. Warm : Vanessa in place Neurologic: Unable to assess fulldue to sedation. but patient follows commands with all 4 extremities . PERRL Results Labs 12/29/23 03:52 12/29/23 03:52 Labs: Impressions Chest X-Ray 12/29/23 07:21 Impression: Moderate bibasilar pulmonary edema versus bibasilar pneumonia. Correlate clinically. Abdomen X-Ray 12/29/23 07:23 Impression: NG tube in satisfactory position. Percutaneous gastrostomy tube also in place. Chest X-Ray 12/29/23 07:24 Impression: Support tubes in place, as above. Stable bibasilar consolidation. Correlate for moderate pulmonary edema versus bibasilar pneumonia. Chest X-Ray 12/29/23 07:27 Impression: Support tubes, as above. No pneumothorax. Bibasilar consolidation and probable small right pleural effusion. Correlate for pulmonary edema versus pneumonia. Chest X-Ray 12/29/23 09:34 Impression: Support tubes, as above. Stable bibasilar pulmonary consolidation. Correlate for pulmonary edema versus pneumonia. Minimal right pleural effusion. Short CBC 12/29/23 Range/Units 03:52 WBC 4.8 (4.5-10.0) K/mm3 Hgb 15.9 (14.0-18.0) g/dL Hct 47.2 (42.0-52.0) % Plt Count 151 (150-375) k/mm3 BMP 12/29/23 03:52 Sodium 135 L Potassium 4.2 Chloride 100 Carbon Dioxide 30 BUN 29 H Creatinine 0.90 Glucose 117 H Calcium 9.0 Cardiac Enzymes 12/29/23 12/29/23 12/29/23 Range/Units 03:52 03:52 09:31 Troponin I < 0.012 Cancelled 0.018 D (0.000-0.034) ng/mL Liver Function 12/29/23 Range/Units 03:52 Total Bilirubin 1.1 (0.2-1.3) mg/dL AST 34 (17-59) U/L ALT 15 (6-50) U/L Alkaline Phosphatase 51 (38-126) U/L Albumin 4.0 (3.5-5.1) g/dL Urine 12/29/23 Range/Units 04:48 Urine Color Dark yellow (Yellow) Urine Appearance Cloudy H (Clear) Urine pH 7.5 (5.0-9.0) Ur Specific [place] 1.016 (1.001-1.035) Urine Protein 1+ H (Negative) mg/dL Urine Glucose (UA) Negative (Negative) mg/dL ECG Interpretation: SINUS RHYTHM POSSIBLE LEFT ATRIAL ENLARGEMENT LEFT ANTERIOR FASCICULAR BLOCK POSSIBLE LEFT VENTRICULAR HYPERTROPHY CONSIDER ANTEROSEPTAL INFARCT, AGE INDETERMINATE BASELINE ARTIFACT- I, III, AVR, AVL, AVF, V1, V4-V6 ABNORMAL ECG
[2023-12-29] MEDS: VASOPRESSIN INJ 100 UNITS in DEXTROSE 5% 95 ML IV CONT (10:34)
[2023-12-29] MEDS: EPINEPHrine INJ 1 MG in DEXTROSE 5% IN WATER 250 ML 15.06 MG IV CONT (10:37)
[2023-12-29] MEDS: ALBUMIN HUMAN 5% 25 GM/500 ML BTL IV CONT (10:38)
[2023-12-29] MEDS: SODIUM BICARBONATE 8.4% 50 MEQ/50 ML SYRINGE IV PUSH ×2 (10:39→14:04)
[2023-12-29] MEDS: LACTATED RINGERS 1,000 ML 100 ML IV CONT (10:45)
--- NOTE | 2023-12-29 11:42 | P.PCNBED_ITS ---
Procedures Arterial Line Arterial Line Date: 12/29/23 Arterial Line Time: 11:30 Discussed with the patient/family/POA, the placement of an arterial catheter, including its clinical necessity/indication and associated potential risks, benefits and alternatives.: Yes Patient/family/POA and/or understands and acknowledges the need to proceed with the arterial catheter insertion as an important element of the patient's clinical management.: Yes Time Out Performed: Yes Patient Position: supine Occupational Safety Specialist Prep: sterile gown, sterile gloves, mask and hat Site: right Site Prep: chlorhexidine Technique used: ultrasound-guided Length: 12 cm Closure/Dressing: suture and transparent dressing Patient tolerated procedure: well Complications: none
[2023-12-29 11:50] LABS: Alveolar/Arterial O2 Gradient 504.4 mmHg; Base Excess ABG -3.8 mEq/l (+/-2.0); Fractional Inspired Oxygen 100 %; Oxygen Content ABG 19.3 %vol (16.0-22.0); Oxygen Saturation ABG 98.8 % (95.0-100.0); Oxyhemoglobin 98.6 % THb (90.0-100.0); PCO2 ABG 48.6 mmHg (35.0-45.0); Total Hemoglobin 13.7 g/dL (12.0-18.0)
[2023-12-29 11:51] LABS: Arterial Blood Gas Ventilator rate 22 /MIN; Device VENTILATOR; Site Drawn ARTLINE; pH ABG 7.293 (7.350-7.450)
[2023-12-29 11:52] LABS: Arterial Blood Gas PEEP 10 cmH2O; Arterial Blood Gas Tidal Volume 450 ml; Arterial Blood Gas Vent Mode CMV
[2023-12-29 11:58] LABS: Lactic Acid Reflex 2.7 mmol/L (0.7-2.0)
--- NOTE | 2023-12-29 12:29 | P.HP_ITS ---
H&P: HPI History of Present Illness Date/Time: 12/29/23 12:29 Chief Complaint: hypotension Narrative: Mal Akhtar is a 68 year old male with past medical history of esophageal cancer is post surgery radiation therapy in severe dysphagia leading to PEG tube insertion and is completely on tube feeds presented to ER with chief complaint of shortness of breath. Patient has been admitted multiple times with aspiration pneumonia in the past and his states that yesterday patient started vomiting multiple times. He was complaining of burning in his throat from regurgitant liquid. She states this has happened in the past. She states that patient does get vomiting if he takes too much of tube feed at 1 time but yesterday symptoms were much severe. She did not notice any blood in the vomitus. . Prior to that patient was feeling fine and did not had any fever shortness of breath or chest.. patient presented with ER early this morning with respiratory distress and was intubated. Post intubation patient had drop in blood pressure and required IV fluid bolus leading to improvement in but improvement was transient and patient was started on Levophed infusion. A left IJ central venous catheter was placed. Patient now admitted to ICU for further evaluation management. Patient continues to be on a ventilator sedated and on vasopressors. History was obtained from chart review and patient's at bedside. Patient currently needs levophed,vasopressin and epinephrine and fluid bolus. Intubated high PEEP and FiO2. Had discussion with . She wants her stay full code. Upon evaluation again the patient at 16:00 patient was downgraded to only Levophed. He was about to transport to CT scan of neck,chest,abd/pelvis Review of Systems Review of Systems: ROS unobtainable: Yes unobtainable due to endotracheal tube, unobtainable due to medical condition and unobtainable due to mental status PMFSH Past Medical History Medical History Cervical spine disease Constipation Gastrostomy tube dependent GERD (gastroesophageal reflux disease) History of aspiration pneumonia History of throat cancer XRT and surgery Hypothyroid Malfunction of gastrostomy tube Spina bifida as a child with surgery; residual 'bladder issues' Surgical History Surgical History History of ear, nose, and throat (ENT) surgery Family History Family History Mother Colon cancer Social History Social History Social History: Lives at home with . Never smoked. No alcohol and drug use. Full code. would be the Individual would make medical decisions for him if he is unable Smoking status: Never smoker Second hand tobacco smoke exposure: No Alcohol intake: never Substance use: never Substance use type: does not use Lack of Transportation: No Lack of Food: Never True Current Housing: I Have Housing Concerned About Future Housing: No Difficulty Paying Gas/Electric Bills: No Difficulty Paying for Meds: No Currently Unemployed: No Education: Bachelor's Degree Difficulty w/ Childcare or Family Care: No Living arrangements: with family Gender identity (if verbalized by the patient): Male Sexual Orientation (if Verbalized by the Patient): Straight or Heterosexual Spiritual care concerns: No Agree to blood products: Yes Meds Home Medications and Allergies Home Medications Medication Instructions Recorded Confirmed Type zolpidem 10 mg tablet 10 mg feeding tube HS PRN Sleep 09/07/21 12/29/23 History finasteride 5 mg tablet (Proscar) 5 mg feeding tube DAILY 03/05/22 12/29/23 History diazepam 10 mg tablet (Valium) 20 mg PO HS PRN Muscle Spasm 05/19/22 12/29/23 History ondansetron HCl 4 mg tablet 4 mg feeding tube Q3-4H PRN Acid 05/19/22 12/29/23 History Reflux polyethylene glycol 3350 17 gram 17 g feeding tube BID #30 ea 05/22/22 12/29/23 Rx oral powder packet (Miralax) Allergies Allergy/AdvReac Type Severity Reaction Status Date / Time No Known Allergies Allergy Verified 08/18/22 12:58 Vital Signs Vital Signs - 24 hr 12/29/23 03:32 12/29/23 03:47 12/29/23 03:59 Temperature 99.5 F Pulse Rate 100 101 H Respiratory Rate 23 H 39 H Blood Pressure 96/63 L 115/76 Pulse Oximetry 87 L 87 L 93 Oxygen Delivery Room Air Non-Rebreather Mask Oxygen Flow Rate 15 Fraction of Inspired Oxygen 12/29/23 04:05 12/29/23 03:54 12/29/23 03:55 Temperature Pulse Rate 101 H 100 Respiratory Rate 33 H 29 H 25 H Blood Pressure 72/52 L Pulse Oximetry 91 82 L 83 L Oxygen Delivery Oxygen Flow Rate Fraction of Inspired Oxygen 12/29/23 03:57 12/29/23 03:58 12/29/23 04:00 Temperature Pulse Rate 101 H 98 102 H Respiratory Rate 27 H 24 H 35 H Blood Pressure 85/62 L 115/76 Pulse Oximetry 89 L 93 94 Oxygen Delivery Oxygen Flow Rate Fraction of Inspired Oxygen 12/29/23 04:01 12/29/23 04:02 12/29/23 04:04 Temperature Pulse Rate 104 H 104 H 104 H Respiratory Rate 39 H 27 H 23 H Blood Pressure 128/77 138/94 H Pulse Oximetry 93 92 95 Oxygen Delivery Oxygen Flow Rate Fraction of Inspired Oxygen 12/29/23 04:05 12/29/23 04:07 12/29/23 04:11 Temperature Pulse Rate 104 H 104 H 106 H Respiratory Rate 34 H 35 H 27 H Blood Pressure 129/79 134/92 H Pulse Oximetry 93 96 99 Oxygen Delivery Oxygen Flow Rate Fraction of Inspired Oxygen 12/29/23 04:12 12/29/23 04:15 12/29/23 04:16 Temperature Pulse Rate 103 H 103 H 96 Respiratory Rate 31 H 30 H 15 Blood Pressure 115/57 L 115/74 Pulse Oximetry 97 100 100 Oxygen Delivery Oxygen Flow Rate Fraction of Inspired Oxygen 12/29/23 04:17 12/29/23 04:21 12/29/23 04:23 Temperature Pulse Rate 98 103 H 101 H Respiratory Rate 18 21 H 17 Blood Pressure 137/88 131/94 H Pulse Oximetry 95 98 98 Oxygen Delivery Oxygen Flow Rate Fraction of Inspired Oxygen 12/29/23 04:37 12/29/23 04:51 12/29/23 05:01 Temperature Pulse Rate 112 H 110 H 106 H Respiratory Rate 20 29 H Blood Pressure Pulse Oximetry 98 Oxygen Delivery Mechanical Ventilation Oxygen Flow Rate Fraction of Inspired Oxygen 100 12/29/23 05:14 12/29/23 04:24 12/29/23 04:34 Temperature 99.1 F Pulse Rate 95 103 H 110 H Respiratory Rate 23 H 18 20 Blood Pressure Pulse Oximetry 98 100 Oxygen Delivery Oxygen Flow Rate Fraction of Inspired Oxygen 12/29/23 04:36 12/29/23 04:41 12/29/23 04:50 Temperature 99.7 F H 100.3 F H 100.8 F H Pulse Rate 110 H 111 H 110 H Respiratory Rate 18 20 20 Blood Pressure 166/102 H 151/99 H Pulse Oximetry 100 99 95 Oxygen Delivery Oxygen Flow Rate Fraction of Inspired Oxygen 12/29/23 04:51 12/29/23 05:00 12/29/23 05:01 Temperature 100.8 F H 101.1 F H 101.1 F H Pulse Rate 109 H 107 H 106 H Respiratory Rate 20 29 H 28 H Blood Pressure 92/72 L 71/48 L Pulse Oximetry 96 94 93 Oxygen Delivery Oxygen Flow Rate Fraction of Inspired Oxygen 12/29/23 05:06 12/29/23 05:11 12/29/23 05:15 Temperature 101.2 F H 101.3 F H 101.2 F H Pulse Rate 102 H 98 96 Respiratory Rate 26 H 23 H 24 H Blood Pressure 69/53 L 94/71 L Pulse Oximetry 95 98 100 Oxygen Delivery Oxygen Flow Rate Fraction of Inspired Oxygen 12/29/23 05:16 12/29/23 05:30 12/29/23 05:51 Temperature 101.2 F H Pulse Rate 97 95 94 Respiratory Rate 22 H 21 H 22 H Blood Pressure 97/62 L Pulse Oximetry 100 Oxygen Delivery Oxygen Flow Rate Fraction of Inspired Oxygen 12/29/23 05:52 12/29/23 05:17 12/29/23 05:26 Temperature 101.1 F H 100.9 F H Pulse Rate 93 96 96 Respiratory Rate 21 H 24 H 20 Blood Pressure 110/78 Pulse Oximetry 100 100 Oxygen Delivery Oxygen Flow Rate Fraction of Inspired Oxygen 12/29/23 05:33 12/29/23 05:36 12/29/23 05:45 Temperature 100.8 F H 100.8 F H 100.8 F H Pulse Rate 96 97 92 Respiratory Rate 27 H 24 H 20 Blood Pressure 132/89 Pulse Oximetry 100 100 100 Oxygen Delivery Oxygen Flow Rate Fraction of Inspired Oxygen 12/29/23 05:56 12/29/23 06:18 12/29/23 06:28 Temperature 100.7 F H 101 F H Pulse Rate 93 90 100 Respiratory Rate 21 H 26 H Blood Pressure 110/75 60/49 L 158/100 H Pulse Oximetry 100 100 Oxygen Delivery Oxygen Flow Rate Fraction of Inspired Oxygen 12/29/23 06:57 12/29/23 07:09 12/29/23 05:58 Temperature 100.8 F H Pulse Rate 93 83 92 Respiratory Rate 20 24 H Blood Pressure 109/76 65/55 L Pulse Oximetry 100 100 Oxygen Delivery Oxygen Flow Rate Fraction of Inspired Oxygen 12/29/23 06:04 12/29/23 06:32 12/29/23 07:15 Temperature 100.8 F H 100.9 F H Pulse Rate 89 100 88 Respiratory Rate 24 H 19 20 Blood Pressure 60/49 L 109/76 Pulse Oximetry 100 100 Oxygen Delivery Oxygen Flow Rate Fraction of Inspired Oxygen 12/29/23 07:15 12/29/23 07:22 12/29/23 07:24 Temperature Pulse Rate 87 87 Respiratory Rate Blood Pressure 51/42 L 63/43 L Pulse Oximetry 98 Oxygen Delivery Mechanical Ventilation Oxygen Flow Rate Fraction of Inspired Oxygen 100 12/29/23 07:24 12/29/23 07:15 12/29/23 07:29 Temperature 101.7 F H 101.8 F H Pulse Rate 88 89 Respiratory Rate 20 20 Blood Pressure 63/43 L Pulse Oximetry 98 Oxygen Delivery Oxygen Flow Rate Fraction of Inspired Oxygen 12/29/23 07:37 12/29/23 07:55 12/29/23 09:45 Temperature Pulse Rate 97 103 H 92 Respiratory Rate 20 Blood Pressure 70/51 L Pulse Oximetry 100 Oxygen Delivery Mechanical Ventilation Oxygen Flow Rate Fraction of Inspired Oxygen 100 12/29/23 09:55 12/29/23 10:00 12/29/23 10:05 Temperature Pulse Rate 91 91 93 Respiratory Rate Blood Pressure 69/54 L 65/54 L 77/61 L Pulse Oximetry Oxygen Delivery Oxygen Flow Rate Fraction of Inspired Oxygen 12/29/23 10:10 12/29/23 10:15 12/29/23 10:20 Temperature Pulse Rate 94 95 98 Respiratory Rate Blood Pressure 78/63 L 89/68 L 100/75 Pulse Oximetry Oxygen Delivery Oxygen Flow Rate Fraction of Inspired Oxygen 12/29/23 10:34 12/29/23 10:37 12/29/23 10:41 Temperature 101.5 F H Pulse Rate 96 94 Respiratory Rate Blood Pressure 102/73 102/73 Pulse Oximetry Oxygen Delivery Oxygen Flow Rate Fraction of Inspired Oxygen 12/29/23 10:46 12/29/23 11:00 12/29/23 11:15 Temperature Pulse Rate 100 87 90 Respiratory Rate Blood Pressure 140/91 H 46/34 L 43/14 L Pulse Oximetry Oxygen Delivery Oxygen Flow Rate Fraction of Inspired Oxygen 12/29/23 11:00 12/29/23 11:16 12/29/23 08:00 Temperature Pulse Rate 89 89 105 H Respiratory Rate 22 H 21 H Blood Pressure 48/37 L Pulse Oximetry Oxygen Delivery Oxygen Flow Rate Fraction of Inspired Oxygen 12/29/23 09:00 12/29/23 10:00 12/29/23 11:20 Temperature Pulse Rate 102 H 91 98 Respiratory Rate 22 H 22 H Blood Pressure 46/37 L Pulse Oximetry Oxygen Delivery Oxygen Flow Rate Fraction of Inspired Oxygen 12/29/23 11:21 12/29/23 10:45 12/29/23 11:28 Temperature Pulse Rate 98 102 H 96 Respiratory Rate Blood Pressure 76/59 L 76/58 L Pulse Oximetry 98 Oxygen Delivery Mechanical Ventilation Oxygen Flow Rate Fraction of Inspired Oxygen 100 12/29/23 11:29 12/29/23 11:30 12/29/23 11:29 Temperature Pulse Rate 96 95 95 Respiratory Rate 22 H Blood Pressure 76/58 L 82/61 L Pulse Oximetry Oxygen Delivery Oxygen Flow Rate Fraction of Inspired Oxygen 12/29/23 11:29 12/29/23 11:32 12/29/23 11:32 Temperature Pulse Rate 96 95 95 Respiratory Rate 22 H Blood Pressure 82/61 L 82/61 L Pulse Oximetry Oxygen Delivery Oxygen Flow Rate Fraction of Inspired Oxygen 12/29/23 11:58 12/29/23 11:53 12/29/23 12:03 Temperature Pulse Rate 90 90 86 Respiratory Rate Blood Pressure 98/57 L 94/56 L 87/51 L Pulse Oximetry Oxygen Delivery Oxygen Flow Rate Fraction of Inspired Oxygen 12/29/23 10:00 12/29/23 11:48 12/29/23 11:56 Temperature 101.7 F H 100.5 F H Pulse Rate 92 102 H Respiratory Rate 22 H Blood Pressure 65/54 L 143/77 H Pulse Oximetry 93 Oxygen Delivery Oxygen Flow Rate Fraction of Inspired Oxygen 12/29/23 12:00 Temperature 100.3 F H Pulse Rate 88 Respiratory Rate 22 H Blood Pressure 89/51 L Pulse Oximetry 92 Oxygen Delivery Oxygen Flow Rate Fraction of Inspired Oxygen Exam Narrative: General: Pt is sedated, intubated and on mechanical ventilation Lungs/Chest: Trachea central Coarse BS B/L, No crackles or wheezing. Cardiac: RRR. Normal S1 S2. No murmurs Circulation: Pedal pulses are intact and symmetrical. Abdomen: Decreased bowel sounds. peg tube in place. Soft. NT. ND. Extremities: No clubbing, cyanosis or edema. Warm : Vanessa in place Neurologic: Unable to assess fulldue to sedation. but patient follows commands with all 4 extremities . PERRL H&P: Results Labs Labs: Short CBC 12/29/23 Range/Units 03:52 WBC 4.8 (4.5-10.0) K/mm3 Hgb 15.9 (14.0-18.0) g/dL Hct 47.2 (42.0-52.0) % Plt Count 151 (150-375) k/mm3 BMP 12/29/23 03:52 Sodium 135 L Potassium 4.2 Chloride 100 Carbon Dioxide 30 BUN 29 H Creatinine 0.90 Glucose 117 H Calcium 9.0 Cardiac Enzymes 12/29/23 12/29/23 12/29/23 Range/Units 03:52 03:52 09:31 Troponin I < 0.012 Cancelled 0.018 D (0.000-0.034) ng/mL Liver Function 12/29/23 Range/Units 03:52 Total Bilirubin 1.1 (0.2-1.3) mg/dL AST 34 (17-59) U/L ALT 15 (6-50) U/L Alkaline Phosphatase 51 (38-126) U/L Albumin 4.0 (3.5-5.1) g/dL Urine 12/29/23 Range/Units 04:48 Urine Color Dark yellow (Yellow) Urine Appearance Cloudy H (Clear) Urine pH 7.5 (5.0-9.0) Ur Specific [place] 1.016 (1.001-1.035) Urine Protein 1+ H (Negative) mg/dL Urine Glucose (UA) Negative (Negative) mg/dL Assessment and Plan Assessment and plan (1) Acute respiratory failure: Code(s): J96.00 - Acute respiratory failure, unspecified whether with hypoxia or hypercapnia Status: Acute Assessment and Plan: acute respiratory failure secondary to aspiration pneumonia chest x-ray reviewed. CT chest pending. ABG reviewed peep increased to 10 decreased at 1 450 wean FiO2 (2) Septic shock: Code(s): A41.9 - Sepsis, unspecified organism; R65.21 - Severe sepsis with septic shock Status: Acute Assessment and Plan: septic shock secondary to aspiration pneumonia. Patient continues to be to be hypotensive requiring high dose of Levophed. patient given additional 500 cc of IV fluid bolus. Will give 500 mL of 5% albumin bolus continue IV fluids add vasopressin and if needed epinephrine infusion 1 amp of bicarb IV push stress dose hydrocortisone blood and sputum culture empiric vanc and Zosyn (3) Nausea & vomiting: Code(s): R11.2 - Nausea with vomiting, unspecified Status: Acute Assessment and Plan: currently sedated. Place PEG tube to [place] (4) Aspiration pneumonia: Qualifiers: Aspiration pneumonia type: unspecified Laterality: unspecified laterality Lung location: unspecified part of lung Qualified Code(s): J69.0 - Pneumonitis due to inhalation of food and vomit Code(s): J69.0 - Pneumonitis due to inhalation of food and vomit Status: Acute Assessment and Plan: see above Hospitalist MIPS Advance Care Plan I have confirmed that the patient's Advanced Care Plan is present, code status is documented, or surrogate decision maker is listed in patient medical record.: Yes Medication Reconciliation I have utilized all available resources to obtain, update and review the patients current medications (includes all prescriptions, OTC, herbals, cannabis, and nutritional supplements).: Yes
[2023-12-29 12:34] LABS: Glucose Point of Care 127 mg/dl (65-105)
[2023-12-29 13:00] LABS: MRSA (PCR) NOT DETECTED (NOT DETECTE)
[2023-12-29] MEDS: CALCIUM GLUC 2,000 MG/NS 100ML 2,000 MG/100 ML BAG 100 MG IVPB (14:04)
--- NOTE | 2023-12-29 14:08 | PM.EVENT ---
Event Note Event Note Event Note: Patient continues to deteriorate with worsening shock. Levophed was followed by adding vasopressin and epinephrine infusion. Patient was given additional fluid bolus. IV bicarb push. Chest x-ray was repeated which showed stable by basilar pulmonary consolidation ABG showed respiratory acidosis and hypoxia. FiO2 decreased to 80% and rate increased to 25. Arterial line was placed in right femoral artery after obtaining consent from patient's by phone affect patient's with bedside and on phone patient's daughter and I updated them with patient's current status including severe shock take shock requiring multiple vasopressors, acute respiratory failure requiring high PEEP and FiO2. Explained them the patient is critically ill with high mortality risk. I answered their questions additional critical care time 50 minutes except separately billed procedures
[2023-12-29] MEDS: NOREPINEPHRINE 8 MG/D5W 250 ML 8 MG/250 ML BAG 46.88 MG IV CONT (14:25)
[2023-12-29] MEDS: CENTRAL LINE FLUSH 10 ML IV PUSH ×4 (17:14→22:22)
[2023-12-29 17:50] LABS: Glucose Point of Care 123 mg/dl (65-105)
[2023-12-30] VITALS (37 sets, daily range): BP systolic 90–164; BP diastolic 51–99; PULSE 65–98; RESP 22–147; TEMP 37–38.4; O2SAT 97–100; BMI 22.1
--- NOTE | 2023-12-30 | ECHO_ITS ---
Patient Info Name: Mal Akhtar Age: 68 years : 1955 Gender: Male Ht: 72 in Wt: 169 lbs BSA: 1.97 m2 HR: 90 bpm BP: 131 / 85 mmHg Technical Quality: Poor Exam Date: 12/30/2023 8:48 AM Exam Location: Echo Lab Patient Status: Inpatient Admit Date: 12/29/2023 Staff Ordering Physician: Farhad Rodríguez MD Rescue Boat Operator: Linh Clark RDCS Attending Provider: Marily Lui MD Exam Type: CA echo dop color flow w con Study Info Indications - SHOCK Complete two-dimensional, color flow and Doppler transthoracic echocardiogram is performed with contrast to opacify the left ventricle and to improve the deliniation of the left ventricle endocardial borders. Contrast/Agitated Saline Contrast/Ag. Saline: Definity Amount: 3.00 ml Existing IV Access: Yes Reason for Poor Study: poor echocardiographic windows Summary 1. Left ventricular systolic function is normal, estimated at 55-60%. 2. There is moderately increased left ventricular wall thickness. 3. There is no aortic valve stenosis with a peak velocity of 190.63 cm/s, mean gradient of 9 mmHg, and aortic valve area of 2.48 cm2. 4. There is mild aortic valve calcification. 5. There is no tricuspid valve regurgitation. 6. No pulmonary hypertension, estimated pulmonary arterial systolic pressure is 26 mmHg. Left Ventricle Left ventricular chamber dimension is normal. Left ventricular systolic function is normal, estimated at 55-60%. There is moderately increased left ventricular wall thickness. Left ventricular septal wall motion is normal. The left ventricular diastolic function is abnormal. Right Ventricle Right ventricular chamber dimension is normal. Right ventricular systolic function is normal. Left Atria Left atrial chamber dimension is normal. Right Atria Right atrial chamber dimension is normal. Aortic Valve The aortic valve is probable trileaflet. There is no aortic valve sclerosis. There is no aortic valve stenosis with a peak velocity of 190.63 cm/s, mean gradient of 9 mmHg, and aortic valve area of 2.48 cm2. There is no aortic valve regurgitation. There is mild aortic valve calcification. Pulmonic Valve The pulmonic valve is normal. There is no pulmonic valve stenosis. There is no pulmonic regurgitation. Mitral Valve The mitral valve has normal leaflets. There is no mitral valve stenosis. There is no mitral valve regurgitation. There is mild mitral valve calcification. Tricuspid Valve The tricuspid valve leaflets are normal. There is mild tricuspid valve stenosis. There is no tricuspid valve regurgitation. No pulmonary hypertension, estimated pulmonary arterial systolic pressure is 26 mmHg. Pericardium/Pleural The pericardium appears normal. There is no pericardial effusion. Inferior Vena Cava Normal inferior vena cava with >50% collapse upon inspiration consistent with Empty right atrial pressure, 10 mmHg. Aorta The aortic root size at the sinus of Valsalva is normal. The prox ascending aorta size is normal. Left Ventricular Outflow Tract Name Value Normal LVOT 2D LVOT Diameter 2.43 cm LVOT Doppler LVOT Peak Gradient 4 mmHg LVOT Mean Gradient 2 mmHg LVOT VTI 21.12 cm LVOT VTI/AV VTI Ratio 0.53 LVOT Stroke Volume 98.28 ml LVOT CO 19.65 l/min LVOT CI 9.96 L/min/m2 Mitral Valve Name Value Normal MV Doppler MV Decel [place] 434.67 cm/s2 MV PHT 0 s MV Area (PHT) 4.78 cm2 4.00-5.00 MV Diastolic Function MV E Peak Velocity 68.91 cm/s MV A Peak Velocity 71.48 cm/s MV E/A 0.96 MV Decel Time 0 s MV Annular TDI MV E/e' (Septal) 15.44 <=8.00 MV E/e' (Lateral) 8.12 <=8.00 MV E/e' (Average) 11.78 Tricuspid Valve Name Value Normal TV Regurgitation Doppler TR Peak Velocity 196.91 cm/s TR Peak Gradient 16 mmHg Estimated PAP/RSVP RA Pressure 10 mmHg <=5 PA Systolic Pressure 26 mmHg <36 RV Systolic Pressure 26 mmHg <36 Aortic Valve Name Value Normal AV Doppler AV Peak Velocity 190.63 cm/s AV Peak Gradient 15 mmHg AV Mean Gradient 9 mmHg AV VTI 39.63 cm AV Area (Cont Eq VTI) 2.48 cm2 >=3.00 AV Area (Cont Eq Gaetano) 1.81 cm2 AV Regurgitation 2D LVOT Area 4.65 cm2 Ventricles Name Value Normal LV Dimensions 2D/MM IVS Diastolic Thickness (2D) 1.35 cm 0.60-1.00 LVID Diastole (2D) 4.30 cm 4.20-5.80 LVIW Diastolic Thickness (2D) 1.29 cm 0.60-1.00 LVID Systole (2D) 2.63 cm 2.50-4.00 LVOT Diameter 2.43 cm LV Mass (2D Cubed) 212.73 g 88.00-224.00 LV Mass Index (2D Cubed) 0.01 g/cm2 0.00-0.01 Relative Wall Thickness (2D) 0.60 LV Fractional Shortening/Ejection Fraction 2D/MM LV Fractional Shortening (2D) 39 % 25-43 LV EF (2D Teicholz) 70 % 52-72 LV Diastolic Volume (4C MOD) 79.86 ml LV EF (4C MOD) 60 % LV Diastolic Volume (2C MOD) 63.95 ml LV EF (2C MOD) 53 % LV Diastolic Volume (BP MOD) 75.07 ml 62.00-150.00 LV Diastolic Volume Index (BP MOD) 0.04 l/m2 0.03-0.07 LV Systolic Volume (BP MOD) 31.64 ml 21.00-61.00 LV Systolic Volume Index (BP MOD) 0.02 l/m2 0.01-0.03 LV EF (BP MOD) 58 % 52-72 LV Diastolic Length (4C) 7.63 cm LV Systolic Length (4C) 5.38 cm LV Stroke Volume (4C MOD) 48.27 ml Atria Name Value Normal LA Dimensions LA Volume (4C A-L) 24.81 ml LA Volume (BP A-L) 21.74 ml RA Dimensions RA Area (4C) 10.00 cm2 <=18.00 Report Signatures
[2023-12-30 00:06] LABS: Glucose Point of Care 111 mg/dl (65-105)
[2023-12-30] MEDS: HYDROCORTISONE SODIUM SUCCINATE 100 MG/2 ML VIAL IV PUSH ×3 (01:34→16:53)
[2023-12-30] MEDS: VANCOMYCIN 1,500 MG/NS 500 ML 1,500 MG/500 ML BAG 250 MG IVPB (01:34)
[2023-12-30] MEDS: NOREPINEPHRINE 8 MG/D5W 250 ML 8 MG/250 ML BAG 11.25 MG IV CONT (01:45)
[2023-12-30 05:08] LABS: Alveolar/Arterial O2 Gradient 237.1 mmHg; Base Excess ABG 0.6 mEq/l (+/-2.0); Carboxyhemoglobin 0.3 % THb (0-2.0); Fractional Inspired Oxygen 80 %; HCO3 ABG 25.7 mEq/l (22.0-26.0); Methemoglobin ABG 0.3 %THb (0-1.5); Oxygen Content ABG 18.7 %vol (16.0-22.0); Oxygen Saturation ABG 99.7 % (95.0-100.0); Oxyhemoglobin 99.3 % THb (90.0-100.0); PCO2 ABG 42.8 mmHg (35.0-45.0); PO2 ABG 288.4 mmHg (80.0-100.0); PO2 FiO2 Ratio Arterial Blood 3.61 %; Reduced Hemoglobin 0.1 %THb (0-5.0); Total Hemoglobin 12.9 g/dL (12.0-18.0); pH ABG 7.396 (7.350-7.450)
[2023-12-30 05:19] LABS: Device VENTILATOR; Modified Allen's Test Pass; Site Drawn ARTLINE
[2023-12-30 05:20] LABS: Arterial Blood Gas PEEP 12 cmH2O; Arterial Blood Gas Tidal Volume 450 ml; Arterial Blood Gas Vent Mode CMV; Arterial Blood Gas Ventilator rate 25 /MIN
[2023-12-30 05:29] LABS: Hematocrit 37.9 % (42.0-52.0); Hemoglobin 12.5 g/dL (14.0-18.0); Platelet Count Result 108 k/mm3 (150-375); Red Blood Count 3.79 M/mm3 (4.6-6.20); Red Cell Distribution Width 14.1 % (11.5-14.5); White Blood Count 11.2 K/mm3 (4.5-10.0)
[2023-12-30 05:42] LABS: Alanine Aminotransferase 14 U/L (6-50); Albumin Level 3.4 g/dL (3.5-5.1); Alkaline Phosphatase 43 U/L (38-126); Anion Gap 6 mmol/L (4-12); Aspartate Amino Transferase 35 U/L (17-59); Blood Urea Nitrogen 26 mg/dL (9-20); Calcium 8.4 mg/dL (8.4-10.2); Carbon Dioxide 28 mmol/L (22-30); Chloride 104 mmol/L (98-107); Estimated CRCL calculation 106 ml/min; Estimated Glomerular Filt Rate > 60; Glucose 113 mg/dL (65-110); Magnesium 1.9 mg/dL (1.6-2.3); Potassium 3.9 mmol/L (3.4-5.0); Sodium 138 mmol/L (137-145)
[2023-12-30] MEDS: CENTRAL LINE FLUSH 10 ML IV PUSH ×5 (06:00→20:29)
[2023-12-30] MEDS: PIPERACILLN/TAZ 3.375GM/NS50ML 3.375 GM/50 ML BAG IVPB ×3 (06:10→18:45)
[2023-12-30] MEDS: LACTATED RINGERS 1,000 ML 100 ML IV CONT (06:12)
[2023-12-30] MEDS: PERFLUTREN LIPID MICROSPHERES 1.5 ML VIAL DILUTED TO 10 ML TOTAL VOLUME IV PUSH (09:10)
[2023-12-30] MEDS: PANTOPRAZOLE SODIUM IV 40 MG VIAL IV PUSH (09:40)
[2023-12-30] MEDS: MINERAL OIL/WHITE PETROLATUM OINTMENT 1 APPLIC EACH EYE ×2 (09:41→20:31)
[2023-12-30] MEDS: ENOXAPARIN 40 MG/0.4 ML SYRINGE SUB-Q (09:41)
[2023-12-30] MEDS: polyethylene glycoL 3350 17 GM POWD.PACK PO (09:41)
--- NOTE | 2023-12-30 09:59 | WPDINTPN ---
Progress Note: A&P Assessment and Plan (1) Acute respiratory failure: Code(s): J96.00 - Acute respiratory failure, unspecified whether with hypoxia or hypercapnia Status: Acute Assessment and Plan: acute respiratory failure secondary to aspiration pneumonia CT chest review chest x-ray reviewed. Advance ET tube by 2 cm. ABG reviewed increase PEEP to 10. Decrease FiO2 to 50% continue to wean FiO2 and PEEP as possible. Treatment of pneumonia as below (2) Septic shock: Code(s): A41.9 - Sepsis, unspecified organism; R65.21 - Severe sepsis with septic shock Status: Acute Assessment and Plan: septic shock secondary to aspiration pneumonia. 12/29 improved with decreased vasopressor requirement. Patient is now off of vasopressin epinephrine drip and only on Levophed. Which will be continued. Will discontinue further IV fluids. Continue stress dose hydrocortisone blood and sputum culture sent and pending continue empiric Zosyn. Will discontinue vancomycin (3) Nausea & vomiting: Code(s): R11.2 - Nausea with vomiting, unspecified Status: Acute Assessment and Plan: currently sedated. Zofran ordered. Start tube feeding (4) Aspiration pneumonia: Qualifiers: Aspiration pneumonia type: unspecified Laterality: unspecified laterality Lung location: unspecified part of lung Qualified Code(s): J69.0 - Pneumonitis due to inhalation of food and vomit Code(s): J69.0 - Pneumonitis due to inhalation of food and vomit Status: Acute Assessment and Plan: see above Plan DVT prophylaxis - Lovenox Stress ulcer prophylaxis - PPI Nutrition - start tube feeding Code Status - Full Code I spoke to patient's at bedside updated her with patient's current status answered all questions. Total Critical Care Time - 35 minutes Due to a high probability of clinically significant, life threatening deterioration, the patient required my highest level of preparedness to intervene emergently and I personally spent this critical care time directly and personally managing the patient. This critical care time included obtaining a history; examining the patient; pulse oximetry; ordering and review of studies; arranging urgent treatment with development of a management plan; evaluation of patient's response to treatment; frequent reassessment; and discussions with other providers. It was exclusive of separately billable procedures and treating other patients and teaching time. Please see Assessment and Plan section and the rest of the note for further information on patient assessment and treatment Subjective Date/time seen: 12/30/23 Overnight events reviewed. low-grade fever overnight Continues to be on mechanical ventilation 80% FiO2 and 12 peep Continues to be on vasopressors but significant improvement in vasopressor requirement as patient is down only to low-dose Levophed. Vasopressin and epinephrine drips have been weaned off. Continues to be sedated with Worsened fentanyl but awake arousable and follows commands. acceptable urine output. Other Vitals acceptable Review of Systems Review of Systems: ROS unobtainable: Yes unobtainable due to endotracheal tube, unobtainable due to medical condition and unobtainable due to mental status Exam Narrative: General: Pt is sedated, intubated and on mechanical ventilation Lungs/Chest: Trachea central Coarse BS B/L, No crackles or wheezing. Cardiac: RRR. Normal S1 S2. No murmurs Circulation: Pedal pulses are intact and symmetrical. Abdomen: Decreased bowel sounds. peg tube in place. Soft. NT. ND. Extremities: No clubbing, cyanosis or edema. Warm : Vanessa in place Neurologic: Follows commands with all 4 extremities . PERRL Objective Data Vital Signs Vital Signs: Vital Signs - 24 hr 12/29/23 10:00 12/29/23 10:05 12/29/23 10:10 Temperature Pulse Rate 91 93 94 Respiratory Rate Blood Pressure 65/54 L 77/61 L 78/63 L Pulse Oximetry Oxygen Delivery Fraction of Inspired Oxygen 12/29/23 10:15 12/29/23 10:20 12/29/23 10:34 Temperature Pulse Rate 95 98 96 Respiratory Rate Blood Pressure 89/68 L 100/75 102/73 Pulse Oximetry Oxygen Delivery Fraction of Inspired Oxygen 12/29/23 10:37 12/29/23 10:41 12/29/23 10:46 Temperature 38.6 C H Pulse Rate 94 100 Respiratory Rate Blood Pressure 102/73 140/91 H Pulse Oximetry Oxygen Delivery Fraction of Inspired Oxygen 12/29/23 11:00 12/29/23 11:15 12/29/23 11:00 Temperature Pulse Rate 87 90 89 Respiratory Rate Blood Pressure 46/34 L 43/14 L 48/37 L Pulse Oximetry Oxygen Delivery Fraction of Inspired Oxygen 12/29/23 11:16 12/29/23 10:00 12/29/23 11:20 Temperature Pulse Rate 89 91 98 Respiratory Rate 22 H 22 H Blood Pressure 46/37 L Pulse Oximetry Oxygen Delivery Fraction of Inspired Oxygen 12/29/23 11:21 12/29/23 10:45 12/29/23 11:28 Temperature Pulse Rate 98 102 H 96 Respiratory Rate Blood Pressure 76/59 L 76/58 L Pulse Oximetry 98 Oxygen Delivery Mechanical Ventilation Fraction of Inspired Oxygen 100 12/29/23 11:29 12/29/23 11:30 12/29/23 11:29 Temperature Pulse Rate 96 95 95 Respiratory Rate 22 H Blood Pressure 76/58 L 82/61 L Pulse Oximetry Oxygen Delivery Fraction of Inspired Oxygen 12/29/23 11:29 12/29/23 11:32 12/29/23 11:32 Temperature Pulse Rate 96 95 95 Respiratory Rate 22 H Blood Pressure 82/61 L 82/61 L Pulse Oximetry Oxygen Delivery Fraction of Inspired Oxygen 12/29/23 11:58 12/29/23 11:53 12/29/23 12:03 Temperature Pulse Rate 90 90 86 Respiratory Rate Blood Pressure 98/57 L 94/56 L 87/51 L Pulse Oximetry Oxygen Delivery Fraction of Inspired Oxygen 12/29/23 10:00 12/29/23 11:48 12/29/23 11:56 Temperature 38.7 C H 38.1 C H Pulse Rate 92 102 H Respiratory Rate 22 H Blood Pressure 65/54 L 143/77 H Pulse Oximetry 93 Oxygen Delivery Fraction of Inspired Oxygen 12/29/23 12:00 12/29/23 10:00 12/29/23 12:00 Temperature 37.9 C H Pulse Rate 88 92 89 Respiratory Rate 22 H Blood Pressure 89/51 L Pulse Oximetry 92 Oxygen Delivery Fraction of Inspired Oxygen 12/29/23 12:00 12/29/23 13:28 12/29/23 13:40 Temperature 36.9 C Pulse Rate 90 89 91 Respiratory Rate 24 H 19 Blood Pressure 91/51 L Pulse Oximetry 99 97 98 Oxygen Delivery Mechanical Ventilation Mechanical Ventilation Fraction of Inspired Oxygen 100 80 12/29/23 14:10 12/29/23 12:00 12/29/23 12:00 Temperature Pulse Rate 97 92 83 Respiratory Rate Blood Pressure 130/89 90/76 L 88/52 L Pulse Oximetry Oxygen Delivery Fraction of Inspired Oxygen 12/29/23 14:20 12/29/23 14:05 12/29/23 14:10 Temperature Pulse Rate 81 91 93 Respiratory Rate Blood Pressure 154/84 H 94/72 L 130/89 Pulse Oximetry Oxygen Delivery Fraction of Inspired Oxygen 12/29/23 14:15 12/29/23 14:25 12/29/23 14:50 Temperature Pulse Rate 93 95 79 Respiratory Rate Blood Pressure 122/88 154/84 H 99/76 L Pulse Oximetry Oxygen Delivery Fraction of Inspired Oxygen 12/29/23 14:30 12/29/23 14:35 12/29/23 14:40 Temperature Pulse Rate 83 79 79 Respiratory Rate Blood Pressure 109/83 109/85 109/86 Pulse Oximetry Oxygen Delivery Fraction of Inspired Oxygen 12/29/23 14:45 12/29/23 15:15 12/29/23 14:55 Temperature Pulse Rate 78 77 79 Respiratory Rate Blood Pressure 109/89 120/88 102/78 Pulse Oximetry Oxygen Delivery Fraction of Inspired Oxygen 12/29/23 15:00 12/29/23 15:05 12/29/23 15:10 Temperature Pulse Rate 78 79 78 Respiratory Rate Blood Pressure 102/78 97/75 L 95/77 L Pulse Oximetry Oxygen Delivery Fraction of Inspired Oxygen 12/29/23 15:20 12/29/23 14:20 12/29/23 14:00 Temperature Pulse Rate 80 95 98 Respiratory Rate Blood Pressure 105/82 137/74 97/69 L Pulse Oximetry Oxygen Delivery Fraction of Inspired Oxygen 12/29/23 14:10 12/29/23 14:20 12/29/23 14:30 Temperature Pulse Rate 95 95 79 Respiratory Rate Blood Pressure 130/89 154/84 H 109/89 Pulse Oximetry Oxygen Delivery Fraction of Inspired Oxygen 12/29/23 11:55 12/29/23 13:55 12/29/23 11:55 Temperature Pulse Rate 93 91 93 Respiratory Rate 25 H 24 H 22 H Blood Pressure Pulse Oximetry Oxygen Delivery Fraction of Inspired Oxygen 12/29/23 13:55 12/29/23 16:40 12/29/23 16:00 Temperature Pulse Rate 91 88 89 Respiratory Rate 24 H 21 H Blood Pressure Pulse Oximetry 100 100 Oxygen Delivery Mechanical Ventilation Mechanical Ventilation Fraction of Inspired Oxygen 80 80 12/29/23 16:00 12/29/23 16:00 12/29/23 16:00 Temperature 37.9 C H Pulse Rate 90 94 Respiratory Rate 22 H Blood Pressure 96/83 L Pulse Oximetry 99 Oxygen Delivery Fraction of Inspired Oxygen 80 12/29/23 17:12 12/29/23 17:49 12/29/23 15:25 Temperature Pulse Rate 91 90 80 Respiratory Rate Blood Pressure 124/91 H 101/77 Pulse Oximetry Oxygen Delivery Fraction of Inspired Oxygen 12/29/23 15:30 12/29/23 15:45 12/29/23 15:50 Temperature Pulse Rate 82 81 83 Respiratory Rate Blood Pressure 94/55 L 96/76 L 103/84 Pulse Oximetry Oxygen Delivery Fraction of Inspired Oxygen 12/29/23 15:55 12/29/23 16:00 12/29/23 16:05 Temperature Pulse Rate 86 98 92 Respiratory Rate Blood Pressure 126/95 H 104/82 121/87 Pulse Oximetry Oxygen Delivery Fraction of Inspired Oxygen 12/29/23 17:00 12/29/23 18:00 12/29/23 18:13 Temperature Pulse Rate 91 99 99 Respiratory Rate Blood Pressure 105/70 157/83 H 121/69 Pulse Oximetry Oxygen Delivery Fraction of Inspired Oxygen 12/29/23 16:00 12/29/23 18:00 12/29/23 18:00 Temperature Pulse Rate 90 99 99 Respiratory Rate 23 H Blood Pressure 104/82 151/107 H Pulse Oximetry Oxygen Delivery Fraction of Inspired Oxygen 12/29/23 15:55 12/29/23 17:55 12/29/23 18:00 Temperature Pulse Rate 86 93 99 Respiratory Rate 24 H 25 H 23 H Blood Pressure Pulse Oximetry Oxygen Delivery Fraction of Inspired Oxygen 12/29/23 15:55 12/29/23 18:00 12/29/23 16:00 Temperature Pulse Rate 86 99 87 Respiratory Rate 23 H Blood Pressure 153/83 H 104/82 Pulse Oximetry Oxygen Delivery Fraction of Inspired Oxygen 12/29/23 18:00 12/29/23 18:30 12/29/23 18:35 Temperature 37.8 C H Pulse Rate 99 95 94 Respiratory Rate 23 H Blood Pressure 157/83 H 98/75 L 117/84 Pulse Oximetry 99 Oxygen Delivery Fraction of Inspired Oxygen 12/29/23 18:40 12/29/23 18:49 12/29/23 18:55 Temperature Pulse Rate 93 99 94 Respiratory Rate Blood Pressure 98/75 L 119/66 102/57 L Pulse Oximetry Oxygen Delivery Fraction of Inspired Oxygen 12/29/23 20:20 12/29/23 18:58 12/29/23 19:05 Temperature Pulse Rate 94 93 95 Respiratory Rate Blood Pressure 88/50 L 98/55 L Pulse Oximetry 98 Oxygen Delivery Mechanical Ventilation Fraction of Inspired Oxygen 80 12/29/23 20:00 12/29/23 20:35 12/29/23 20:00 Temperature Pulse Rate 94 88 91 Respiratory Rate 20 Blood Pressure 128/68 82/45 L Pulse Oximetry Oxygen Delivery Fraction of Inspired Oxygen 12/29/23 20:10 12/29/23 20:30 12/29/23 20:49 Temperature Pulse Rate 93 90 92 Respiratory Rate 20 23 H 24 H Blood Pressure Pulse Oximetry Oxygen Delivery Fraction of Inspired Oxygen 12/29/23 20:00 12/29/23 20:00 12/29/23 21:00 Temperature Pulse Rate 92 92 90 Respiratory Rate Blood Pressure 128/68 128/68 124/68 Pulse Oximetry Oxygen Delivery Fraction of Inspired Oxygen 12/29/23 22:25 12/29/23 22:00 12/29/23 20:00 Temperature Pulse Rate 89 87 95 Respiratory Rate 26 H Blood Pressure 82/44 L 93/76 L Pulse Oximetry Oxygen Delivery Fraction of Inspired Oxygen 12/29/23 22:50 12/29/23 22:00 12/29/23 23:00 Temperature Pulse Rate 94 87 88 Respiratory Rate 26 H Blood Pressure 178/90 H 120/64 Pulse Oximetry Oxygen Delivery Fraction of Inspired Oxygen 12/29/23 23:30 12/29/23 23:40 12/29/23 23:45 Temperature Pulse Rate 89 88 87 Respiratory Rate Blood Pressure 83/46 L 118/64 Pulse Oximetry 99 Oxygen Delivery Mechanical Ventilation Fraction of Inspired Oxygen 80 12/30/23 00:00 12/30/23 01:45 12/30/23 01:45 Temperature Pulse Rate 89 93 92 Respiratory Rate Blood Pressure 125/66 125/66 125/66 Pulse Oximetry Oxygen Delivery Fraction of Inspired Oxygen 12/29/23 20:00 12/29/23 20:00 12/29/23 20:00 Temperature 37.9 C H Pulse Rate 93 93 Respiratory Rate 25 H Blood Pressure 108/60 Pulse Oximetry 99 Oxygen Delivery Fraction of Inspired Oxygen 80 12/29/23 22:00 12/29/23 22:00 12/30/23 00:00 Temperature 36.6 C Pulse Rate 67 67 88 Respiratory Rate 25 H Blood Pressure 94/66 L Pulse Oximetry 94 Oxygen Delivery Fraction of Inspired Oxygen 12/30/23 00:00 12/30/23 00:00 12/30/23 02:25 Temperature 37.6 C H Pulse Rate 90 86 Respiratory Rate 25 H Blood Pressure 131/70 Pulse Oximetry 99 100 Oxygen Delivery Mechanical Ventilation Fraction of Inspired Oxygen 80 80 12/30/23 02:00 12/30/23 00:00 12/30/23 02:00 Temperature Pulse Rate 84 86 86 Respiratory Rate 26 H 25 H Blood Pressure 105/93 H Pulse Oximetry Oxygen Delivery Fraction of Inspired Oxygen 12/30/23 03:06 12/29/23 22:00 12/30/23 00:00 Temperature Pulse Rate 84 87 90 Respiratory Rate 25 H 25 H 25 H Blood Pressure Pulse Oximetry Oxygen Delivery Fraction of Inspired Oxygen 12/30/23 02:00 12/30/23 02:00 12/30/23 04:00 Temperature 37.5 C Pulse Rate 86 82 84 Respiratory Rate 25 H 25 H Blood Pressure 105/73 Pulse Oximetry Oxygen Delivery Fraction of Inspired Oxygen 12/30/23 04:00 12/30/23 04:00 12/30/23 04:00 Temperature 37.4 C Pulse Rate 84 83 Respiratory Rate 25 H Blood Pressure 118/88 118/88 Pulse Oximetry 100 Oxygen Delivery Fraction of Inspired Oxygen 80 12/30/23 04:00 12/30/23 04:00 12/30/23 06:00 Temperature Pulse Rate 83 83 87 Respiratory Rate 25 H 25 H Blood Pressure 122/89 Pulse Oximetry Oxygen Delivery Fraction of Inspired Oxygen 12/30/23 06:00 12/30/23 06:00 12/30/23 06:00 Temperature Pulse Rate 88 87 87 Respiratory Rate 25 H 25 H Blood Pressure 122/89 Pulse Oximetry Oxygen Delivery Fraction of Inspired Oxygen 12/30/23 06:00 12/30/23 06:00 12/30/23 07:30 Temperature 37.3 C Pulse Rate 88 88 89 Respiratory Rate 25 H Blood Pressure 122/89 135/99 H Pulse Oximetry 100 Oxygen Delivery Fraction of Inspired Oxygen 12/30/23 07:59 12/30/23 07:59 12/30/23 08:22 Temperature Pulse Rate 88 94 Respiratory Rate Blood Pressure Pulse Oximetry 100 100 100 Oxygen Delivery Mechanical Ventilation Mechanical Ventilation Mechanical Ventilation Fraction of Inspired Oxygen 80 80 50 12/30/23 08:15 12/30/23 08:15 12/30/23 08:00 Temperature Pulse Rate 98 98 90 Respiratory Rate 22 H 25 H 26 H Blood Pressure Pulse Oximetry 97 Oxygen Delivery Mechanical Ventilation Fraction of Inspired Oxygen 50 Intake/Output Intake/Output: Intake & Output 12/27/23 12/28/23 12/29/23 12/30/23 23:59 23:59 23:59 23:59 Intake Total 4864.8 778.8 Output Total 600 600 Balance 4264.8 178.8 Meds/Results Medications: Active Medications Generic Name Dose Route Start Last Admin Trade Name Freq PRN Reason Stop Dose Admin Acetaminophen 650 mg 12/29/23 05:25 12/29/23 10:41 Acetaminophen 650 Mg Suppository RECTAL 650 mg Q6H PRN Administration Mild Pain (1-3) or Fever Bisacodyl 10 mg 12/30/23 08:09 Bisacodyl 10 Mg Suppository RECTAL QAM PRN Constipation Dextrose 12.5 gm 12/29/23 08:21 Dextrose 50% 25 Gm/50 Ml Syringe IV PUSH PRN PRN Hypoglycemia Protocol Enoxaparin Sodium 40 mg 12/29/23 09:00 12/30/23 09:41 Enoxaparin 40 Mg/0.4 Ml Syringe SUB-Q 40 mg DAILY GELA Administration Glucagon 1 mg 12/29/23 08:21 Glucagon For Inj 1 Mg Vial IM PRN PRN Hypoglycemia Protocol Glucose 15 gm 12/29/23 08:21 Glucose Oral Gel 15 Gm Of Glucse In 37.5 Gm Tube PO PRN PRN Hypoglycemia Protocol Hydrocortisone Sodium Succinate 100 mg 12/29/23 09:00 12/30/23 09:40 Hydrocortisone Sodium Succinate 100 Mg/2 Ml Vial IV PUSH 100 mg Q8H GELA Administration Fentanyl Citrate 2,500 mcg in 250 mls @ 7.5 mls/hr 12/29/23 04:40 12/30/23 08:15 Fentanyl 2,500 Mcg/Ns 250 Ml IV CONT 75 mcg/hr .[id number] GELA 7.5 mls/hr Titration Protocol 75 MCG/HR Midazolam HCl 100 mg in 100 mls @ 3 mls/hr 12/29/23 05:20 12/30/23 08:15 Versed 100 Mg/Ns 100 Ml IV CONT 3 mg/hr .[id number] GELA 3 mls/hr Titration Protocol 3 MG/HR Norepinephrine Bitartrate 8 mg in 250 mls @ 9.375 mls/hr 12/29/23 06:10 12/30/23 07:30 Levophed 8 Mg/D5w 250 Ml IV CONT 5 mcg/min .Q24H GELA 9.38 mls/hr Titration Protocol 5 MCG/MIN Piperacillin/Tazobactam/Dextrose 3.375 gm in 50 mls @ 100 mls/hr 12/29/23 12:00 12/30/23 07:00 Zosyn 3.375 Gm/Ns 50 Ml IVPB Infused Q6H GELA Infusion Dextrose 1,000 mls @ 100 mls/hr 12/29/23 08:21 Dextrose 5% 1,000 Ml IVPB PRN PRN Hypoglycemia Protocol Insulin Aspart 2 - 5 units 12/29/23 12:00 12/30/23 06:59 Insulin Aspart (*Bkc) 100 Units/Ml SUB-Q Not Given Q6HR GELA Protocol Multi-Ingred Cream/Lotion/Oil/Oint 1 applic 12/29/23 09:00 12/30/23 09:41 Mineral Oil/White Petrolatum Ointment EACH EYE 1 applic Q12HR GELA Administration Ondansetron HCl 4 mg 12/29/23 05:25 Ondansetron Inj 4 Mg/2 Ml Vial IV PUSH Q4H PRN Nausea Pantoprazole Sodium 40 mg 12/29/23 09:00 12/30/23 09:40 Pantoprazole Sodium Iv 40 Mg Vial IV PUSH 40 mg QAM GELA Administration Perflutren Lipid Microsphere 0 ml 12/29/23 08:21 Perflutren Lipid Microspheres 1.5 Ml Vial Diluted To 10 Ml Total Volume IV PUSH 01/01/24 08:21 ONCE PRN adequate visualization Protocol Polyethylene Glycol 17 gm 12/29/23 09:00 12/30/23 09:41 Polyethylene Glycol 3350 17 Gm Powd.Pack PO 17 gm QAM GELA Administration Sodium Chloride 10 ml 12/29/23 14:00 12/30/23 06:00 Central Line Flush IV PUSH 10 ml Q8HR GELA Administration Sodium Chloride 20 ml 12/29/23 07:06 Central Line Flush IV PUSH PRN PRN after blood draws Sodium Chloride 10 ml 12/29/23 14:00 12/30/23 06:00 Central Line Flush IV PUSH 10 ml Q8HR GELA Administration Sodium Chloride 20 ml 12/29/23 07:08 Central Line Flush IV PUSH PRN PRN after blood draws Radiology Results: ITS Impressions Abdomen X-Ray 12/29/23 07:23 Impression: NG tube in satisfactory position. Percutaneous gastrostomy tube also in place. Neck/Chest/Abdomen/Pelvis CT 12/29/23 18:24 IMPRESSION: Evaluation of the neck is limited without contrast. A neck mass is not excluded. Generalized neck edema/induration may be postsurgical or posttreatment in nature. Infection, such as cellulitis not excluded. Endotracheal tube terminates 5.6 cm above the doug, consider advancing by 1.6 cm. Pulmonary findings consistent with aspiration pneumonia. Small bilateral pleural effusions. Mediastinal lymphadenopathy. Rectal wall thickening as can be seen with proctitis. Mild fecal impaction with findings suggestive of constipation. Possible decubitus ulcer over the right buttock. Chest X-Ray 12/30/23 08:34 IMPRESSION: 1. Emphysema with opacities in the bilateral mid and lower lung zones consistent with pulmonary edema and/or pneumonia. Labs Labs: Laboratory Results - last 24 hr 12/29/23 12/29/23 12/29/23 09:25 09:31 11:42 WBC RBC Hgb Hct MCV MCH MCHC RDW Plt Count MPV Puncture Site ABG pH ABG pCO2 ABG pO2 ABG PO2/FiO2 Ratio ABG HCO3 ABG O2 Saturation ABG O2 Content ABG Base Excess A-a Gradient Oxyhemoglobin Carboxyhemoglobin Methemoglobin Reduced Hemoglobin Total Hemoglobin O2 Delivery Device O2 Liters/Min Minute Volume Vent Rate Vent Mode FiO2 Tidal Volume PEEP Peak Inspir Pressure Pressure Support Sodium Potassium Chloride Carbon Dioxide Anion Gap BUN Creatinine Estim Creat Clear Calc Estimated GFR Glucose POC Capillary Glucose Lactic Acid 2.7 H Calcium Magnesium Total Bilirubin AST ALT Alkaline Phosphatase Troponin I 0.018 D Total Protein Albumin Procalcitonin 23.6 Nasal MRSA (PCR) Not detected 12/29/23 12/29/23 12/29/23 11:46 12:29 12:30 WBC RBC Hgb Hct MCV MCH MCHC RDW Plt Count MPV Puncture Site Artline ABG pH 7.293 L* ABG pCO2 48.6 H ABG pO2 160.0 H ABG PO2/FiO2 Ratio 1.60 ABG HCO3 23.0 ABG O2 Saturation 98.8 ABG O2 Content 19.3 ABG Base Excess -3.8 A-a Gradient 504.4 Oxyhemoglobin 98.6 Carboxyhemoglobin Methemoglobin Reduced Hemoglobin Total Hemoglobin 13.7 O2 Delivery Device Ventilator O2 Liters/Min Not Reportable Minute Volume Not Reportable Vent Rate 22 Vent Mode Cmv FiO2 100 Tidal Volume 450 PEEP 10 Peak Inspir Pressure Not Reportable Pressure Support Not Reportable Sodium Potassium Chloride Carbon Dioxide Anion Gap BUN Creatinine Estim Creat Clear Calc Estimated GFR Glucose POC Capillary Glucose 127 H Lactic Acid Calcium Magnesium Total Bilirubin AST ALT Alkaline Phosphatase Troponin I Cancelled Total Protein Albumin Procalcitonin Nasal MRSA (PCR) 12/29/23 12/29/23 12/30/23 17:44 23:42 04:48 WBC RBC Hgb Hct MCV MCH MCHC RDW Plt Count MPV Puncture Site Artline ABG pH 7.396 ABG pCO2 42.8 ABG pO2 288.4 H ABG PO2/FiO2 Ratio 3.61 ABG HCO3 25.7 ABG O2 Saturation 99.7 ABG O2 Content 18.7 ABG Base Excess 0.6 A-a Gradient 237.1 Oxyhemoglobin 99.3 Carboxyhemoglobin 0.3 Methemoglobin 0.3 Reduced Hemoglobin 0.1 Total Hemoglobin 12.9 O2 Delivery Device Ventilator O2 Liters/Min Not Reportable Minute Volume Vent Rate 25 Vent Mode Cmv FiO2 80 Tidal Volume 450 PEEP 12 Peak Inspir Pressure Pressure Support Sodium Potassium Chloride Carbon Dioxide Anion Gap BUN Creatinine Estim Creat Clear Calc Estimated GFR Glucose POC Capillary Glucose 123 H 111 H Lactic Acid Calcium Magnesium Total Bilirubin AST ALT Alkaline Phosphatase Troponin I Total Protein Albumin Procalcitonin Nasal MRSA (PCR) 12/30/23 05:11 WBC 11.2 H RBC 3.79 L Hgb 12.5 L D Hct 37.9 L MCV 100.0 MCH 33.0 MCHC 33.0 RDW 14.1 Plt Count 108 L MPV 13.0 H Puncture Site ABG pH ABG pCO2 ABG pO2 ABG PO2/FiO2 Ratio ABG HCO3 ABG O2 Saturation ABG O2 Content ABG Base Excess A-a Gradient Oxyhemoglobin Carboxyhemoglobin Methemoglobin Reduced Hemoglobin Total Hemoglobin O2 Delivery Device O2 Liters/Min Minute Volume Vent Rate Vent Mode FiO2 Tidal Volume PEEP Peak Inspir Pressure Pressure Support Sodium 138 Potassium 3.9 Chloride 104 Carbon Dioxide 28 Anion Gap 6 BUN 26 H Creatinine 0.60 L Estim Creat Clear Calc 106 Estimated GFR > 60 Glucose 113 H POC Capillary Glucose Lactic Acid Calcium 8.4 Magnesium 1.9 Total Bilirubin 1.0 AST 35 ALT 14 Alkaline Phosphatase 43 Troponin I Total Protein 6.0 L Albumin 3.4 L Procalcitonin Nasal MRSA (PCR)
--- NOTE | 2023-12-30 12:00 | IVDEFINITY ---
Prior to administration of IV Definity the patient was educated on the risks and benefits of the imaging enhancing agent including potential adverse side effects. The patient verbalized understanding. Allergies were verified. No exclusion criteria were identified and at least one of the following inclusion criteria were met: 1) physician request, 2) patient technically difficult to image (per the [place] [employer] guidelines of two or more segments not discernable within the apical view), or 3) questionable left ventricular function. ?
[2023-12-30 12:16] LABS: Glucose Point of Care 131 mg/dl (65-105)
[2023-12-30 12:48] LABS: Vancomycin Trough 11.5 ug/mL (10.0-20.0)
--- NOTE | 2023-12-30 15:31 | PM.IMPN ---
Progress Note: A&P Assessment and Plan (1) Acute respiratory failure: Code(s): J96.00 - Acute respiratory failure, unspecified whether with hypoxia or hypercapnia Status: Acute Assessment and Plan: acute respiratory failure secondary to aspiration pneumonia CT chest review chest x-ray reviewed. Advance ET tube by 2 cm. ABG reviewed increase PEEP to 10. Decrease FiO2 to 50% continue to wean FiO2 and PEEP as possible. Treatment of pneumonia as below (2) Septic shock: Code(s): A41.9 - Sepsis, unspecified organism; R65.21 - Severe sepsis with septic shock Status: Acute Assessment and Plan: septic shock secondary to aspiration pneumonia. 12/29 improved with decreased vasopressor requirement. Patient is now off of vasopressin epinephrine drip and only on Levophed. Which will be continued. Will discontinue further IV fluids. Continue stress dose hydrocortisone blood and sputum culture sent and pending continue empiric Zosyn. Will discontinue vancomycin (3) Nausea & vomiting: Code(s): R11.2 - Nausea with vomiting, unspecified Status: Acute Assessment and Plan: currently sedated. Zofran ordered. Start tube feeding (4) Aspiration pneumonia: Qualifiers: Aspiration pneumonia type: unspecified Laterality: unspecified laterality Lung location: unspecified part of lung Qualified Code(s): J69.0 - Pneumonitis due to inhalation of food and vomit Code(s): J69.0 - Pneumonitis due to inhalation of food and vomit Status: Acute Assessment and Plan: see above Subjective Date/time seen: 12/30/23 15:31 Interval history: Intubated. No acute events overnight. Currently on levophed Review of Systems Review of Systems: ROS unobtainable: Yes unobtainable due to endotracheal tube, unobtainable due to medical condition and unobtainable due to mental status Exam Narrative: General: Pt is sedated, intubated and on mechanical ventilation Lungs/Chest: Trachea central Coarse BS B/L, No crackles or wheezing. Cardiac: RRR. Normal S1 S2. No murmurs Circulation: Pedal pulses are intact and symmetrical. Abdomen: Decreased bowel sounds. peg tube in place. Soft. NT. ND. Extremities: No clubbing, cyanosis or edema. Warm : Vanessa in place Neurologic: Follows commands with all 4 extremities . PERRL Objective Data Vital Signs Vital Signs: Vital Signs - 24 hr 12/29/23 16:40 12/29/23 16:00 12/29/23 16:00 Temperature Pulse Rate 88 89 90 Respiratory Rate 21 H Blood Pressure Pulse Oximetry 100 100 Oxygen Delivery Mechanical Ventilation Mechanical Ventilation Fraction of Inspired Oxygen 80 80 12/29/23 16:00 12/29/23 16:00 12/29/23 17:12 Temperature 100.3 F H Pulse Rate 94 91 Respiratory Rate 22 H Blood Pressure 96/83 L Pulse Oximetry 99 Oxygen Delivery Fraction of Inspired Oxygen 80 12/29/23 17:49 12/29/23 15:45 12/29/23 15:50 Temperature Pulse Rate 90 81 83 Respiratory Rate Blood Pressure 124/91 H 96/76 L 103/84 Pulse Oximetry Oxygen Delivery Fraction of Inspired Oxygen 12/29/23 15:55 12/29/23 16:00 12/29/23 16:05 Temperature Pulse Rate 86 98 92 Respiratory Rate Blood Pressure 126/95 H 104/82 121/87 Pulse Oximetry Oxygen Delivery Fraction of Inspired Oxygen 12/29/23 17:00 12/29/23 18:00 12/29/23 18:13 Temperature Pulse Rate 91 99 99 Respiratory Rate Blood Pressure 105/70 157/83 H 121/69 Pulse Oximetry Oxygen Delivery Fraction of Inspired Oxygen 12/29/23 16:00 12/29/23 18:00 12/29/23 18:00 Temperature Pulse Rate 90 99 99 Respiratory Rate 23 H Blood Pressure 104/82 151/107 H Pulse Oximetry Oxygen Delivery Fraction of Inspired Oxygen 12/29/23 15:55 12/29/23 17:55 12/29/23 18:00 Temperature Pulse Rate 86 93 99 Respiratory Rate 24 H 25 H 23 H Blood Pressure Pulse Oximetry Oxygen Delivery Fraction of Inspired Oxygen 12/29/23 15:55 12/29/23 18:00 12/29/23 16:00 Temperature Pulse Rate 86 99 87 Respiratory Rate 23 H Blood Pressure 153/83 H 104/82 Pulse Oximetry Oxygen Delivery Fraction of Inspired Oxygen 12/29/23 18:00 12/29/23 18:30 12/29/23 18:35 Temperature 100.1 F H Pulse Rate 99 95 94 Respiratory Rate 23 H Blood Pressure 157/83 H 98/75 L 117/84 Pulse Oximetry 99 Oxygen Delivery Fraction of Inspired Oxygen 12/29/23 18:40 12/29/23 18:49 12/29/23 18:55 Temperature Pulse Rate 93 99 94 Respiratory Rate Blood Pressure 98/75 L 119/66 102/57 L Pulse Oximetry Oxygen Delivery Fraction of Inspired Oxygen 12/29/23 20:20 12/29/23 18:58 12/29/23 19:05 Temperature Pulse Rate 94 93 95 Respiratory Rate Blood Pressure 88/50 L 98/55 L Pulse Oximetry 98 Oxygen Delivery Mechanical Ventilation Fraction of Inspired Oxygen 80 12/29/23 20:00 12/29/23 20:35 12/29/23 20:00 Temperature Pulse Rate 94 88 91 Respiratory Rate 20 Blood Pressure 128/68 82/45 L Pulse Oximetry Oxygen Delivery Fraction of Inspired Oxygen 12/29/23 20:10 12/29/23 20:30 12/29/23 20:49 Temperature Pulse Rate 93 90 92 Respiratory Rate 20 23 H 24 H Blood Pressure Pulse Oximetry Oxygen Delivery Fraction of Inspired Oxygen 12/29/23 20:00 12/29/23 20:00 12/29/23 21:00 Temperature Pulse Rate 92 92 90 Respiratory Rate Blood Pressure 128/68 128/68 124/68 Pulse Oximetry Oxygen Delivery Fraction of Inspired Oxygen 12/29/23 22:25 12/29/23 22:00 12/29/23 20:00 Temperature Pulse Rate 89 87 95 Respiratory Rate 26 H Blood Pressure 82/44 L 93/76 L Pulse Oximetry Oxygen Delivery Fraction of Inspired Oxygen 12/29/23 22:50 12/29/23 22:00 12/29/23 23:00 Temperature Pulse Rate 94 87 88 Respiratory Rate 26 H Blood Pressure 178/90 H 120/64 Pulse Oximetry Oxygen Delivery Fraction of Inspired Oxygen 12/29/23 23:30 12/29/23 23:40 12/29/23 23:45 Temperature Pulse Rate 89 88 87 Respiratory Rate Blood Pressure 83/46 L 118/64 Pulse Oximetry 99 Oxygen Delivery Mechanical Ventilation Fraction of Inspired Oxygen 80 12/30/23 00:00 12/30/23 01:45 12/30/23 01:45 Temperature Pulse Rate 89 93 92 Respiratory Rate Blood Pressure 125/66 125/66 125/66 Pulse Oximetry Oxygen Delivery Fraction of Inspired Oxygen 12/29/23 20:00 12/29/23 20:00 12/29/23 20:00 Temperature 100.2 F H Pulse Rate 93 93 Respiratory Rate 25 H Blood Pressure 108/60 Pulse Oximetry 99 Oxygen Delivery Fraction of Inspired Oxygen 80 12/29/23 22:00 12/29/23 22:00 12/30/23 00:00 Temperature 97.9 F Pulse Rate 67 67 88 Respiratory Rate 25 H Blood Pressure 94/66 L Pulse Oximetry 94 Oxygen Delivery Fraction of Inspired Oxygen 12/30/23 00:00 12/30/23 00:00 12/30/23 02:25 Temperature 99.7 F H Pulse Rate 90 86 Respiratory Rate 25 H Blood Pressure 131/70 Pulse Oximetry 99 100 Oxygen Delivery Mechanical Ventilation Fraction of Inspired Oxygen 80 80 12/30/23 02:00 12/30/23 00:00 12/30/23 02:00 Temperature Pulse Rate 84 86 86 Respiratory Rate 26 H 25 H Blood Pressure 105/93 H Pulse Oximetry Oxygen Delivery Fraction of Inspired Oxygen 12/30/23 03:06 12/29/23 22:00 12/30/23 00:00 Temperature Pulse Rate 84 87 90 Respiratory Rate 25 H 25 H 25 H Blood Pressure Pulse Oximetry Oxygen Delivery Fraction of Inspired Oxygen 12/30/23 02:00 12/30/23 02:00 12/30/23 04:00 Temperature 99.5 F Pulse Rate 86 82 84 Respiratory Rate 25 H 25 H Blood Pressure 105/73 Pulse Oximetry Oxygen Delivery Fraction of Inspired Oxygen 12/30/23 04:00 12/30/23 04:00 12/30/23 04:00 Temperature 99.4 F Pulse Rate 84 83 Respiratory Rate 25 H Blood Pressure 118/88 118/88 Pulse Oximetry 100 Oxygen Delivery Fraction of Inspired Oxygen 80 12/30/23 04:00 12/30/23 04:00 12/30/23 06:00 Temperature Pulse Rate 83 83 87 Respiratory Rate 25 H 25 H Blood Pressure 122/89 Pulse Oximetry Oxygen Delivery Fraction of Inspired Oxygen 12/30/23 06:00 12/30/23 06:00 12/30/23 06:00 Temperature Pulse Rate 88 87 87 Respiratory Rate 25 H 25 H Blood Pressure 122/89 Pulse Oximetry Oxygen Delivery Fraction of Inspired Oxygen 12/30/23 06:00 12/30/23 06:00 12/30/23 07:30 Temperature 99.1 F Pulse Rate 88 88 89 Respiratory Rate 25 H Blood Pressure 122/89 135/99 H Pulse Oximetry 100 Oxygen Delivery Fraction of Inspired Oxygen 12/30/23 07:59 12/30/23 07:59 12/30/23 08:22 Temperature Pulse Rate 88 94 Respiratory Rate Blood Pressure Pulse Oximetry 100 100 100 Oxygen Delivery Mechanical Ventilation Mechanical Ventilation Mechanical Ventilation Fraction of Inspired Oxygen 80 80 50 12/30/23 08:15 12/30/23 08:15 12/30/23 08:00 Temperature Pulse Rate 98 98 90 Respiratory Rate 22 H 25 H 26 H Blood Pressure Pulse Oximetry 97 Oxygen Delivery Mechanical Ventilation Fraction of Inspired Oxygen 50 12/30/23 10:05 12/30/23 10:10 12/30/23 08:00 Temperature Pulse Rate 78 79 90 Respiratory Rate Blood Pressure 97/70 L 113/63 Pulse Oximetry Oxygen Delivery Fraction of Inspired Oxygen 12/30/23 08:00 12/30/23 08:00 12/30/23 10:00 Temperature 99.1 F Pulse Rate 88 90 Respiratory Rate 26 H Blood Pressure 109/80 Pulse Oximetry 100 Oxygen Delivery Fraction of Inspired Oxygen 40 12/30/23 10:00 12/30/23 10:44 12/30/23 08:00 Temperature 98.6 F Pulse Rate 78 81 88 Respiratory Rate 25 H Blood Pressure 131/67 109/86 Pulse Oximetry 98 99 Oxygen Delivery Mechanical Ventilation Fraction of Inspired Oxygen 40 12/30/23 10:00 12/30/23 08:00 12/30/23 10:00 Temperature Pulse Rate 80 88 91 Respiratory Rate 25 H 25 H Blood Pressure 91/75 L Pulse Oximetry Oxygen Delivery Fraction of Inspired Oxygen 12/30/23 08:00 12/30/23 10:00 12/30/23 12:00 Temperature Pulse Rate 86 91 82 Respiratory Rate 24 H 22 H Blood Pressure 131/85 Pulse Oximetry Oxygen Delivery Fraction of Inspired Oxygen 12/30/23 12:10 12/30/23 12:00 12/30/23 12:00 Temperature Pulse Rate 84 87 85 Respiratory Rate 22 H 25 H Blood Pressure 134/73 Pulse Oximetry Oxygen Delivery Fraction of Inspired Oxygen 12/30/23 12:00 12/30/23 12:00 12/30/23 12:00 Temperature 98.6 F Pulse Rate 86 86 Respiratory Rate 25 H Blood Pressure 131/85 Pulse Oximetry 98 Oxygen Delivery Fraction of Inspired Oxygen 40 12/30/23 12:00 12/30/23 13:52 12/30/23 15:30 Temperature Pulse Rate 76 74 86 Respiratory Rate 25 H Blood Pressure 156/93 H Pulse Oximetry 75 L 98 Oxygen Delivery Mechanical Ventilation Mechanical Ventilation Fraction of Inspired Oxygen 40 40 Intake/Output Intake/Output: Intake & Output 12/27/23 12/28/23 12/29/23 12/30/23 23:59 23:59 23:59 23:59 Intake Total 4864.8 950.9 Output Total 600 600 Balance 4264.8 350.9 Meds/Results Medications: Active Medications Generic Name Dose Route Start Last Admin Trade Name Freq PRN Reason Stop Dose Admin Acetaminophen 650 mg 12/29/23 05:25 12/29/23 10:41 Acetaminophen 650 Mg Suppository RECTAL 650 mg Q6H PRN Administration Mild Pain (1-3) or Fever Bisacodyl 10 mg 12/30/23 08:09 Bisacodyl 10 Mg Suppository RECTAL QAM PRN Constipation Dextrose 12.5 gm 12/29/23 08:21 Dextrose 50% 25 Gm/50 Ml Syringe IV PUSH PRN PRN Hypoglycemia Protocol Enoxaparin Sodium 40 mg 12/29/23 09:00 12/30/23 09:41 Enoxaparin 40 Mg/0.4 Ml Syringe SUB-Q 40 mg DAILY GELA Administration Glucagon 1 mg 12/29/23 08:21 Glucagon For Inj 1 Mg Vial IM PRN PRN Hypoglycemia Protocol Glucose 15 gm 12/29/23 08:21 Glucose Oral Gel 15 Gm Of Glucse In 37.5 Gm Tube PO PRN PRN Hypoglycemia Protocol Hydrocortisone Sodium Succinate 100 mg 12/29/23 09:00 12/30/23 09:40 Hydrocortisone Sodium Succinate 100 Mg/2 Ml Vial IV PUSH 100 mg Q8H GELA Administration Fentanyl Citrate 2,500 mcg in 250 mls @ 7.5 mls/hr 12/29/23 04:40 12/30/23 12:00 Fentanyl 2,500 Mcg/Ns 250 Ml IV CONT 75 mcg/hr .[id number] GELA 7.5 mls/hr Titration Protocol 75 MCG/HR Midazolam HCl 100 mg in 100 mls @ 3 mls/hr 12/29/23 05:20 12/30/23 12:00 Versed 100 Mg/Ns 100 Ml IV CONT 3 mg/hr .[id number] GELA 3 mls/hr Titration Protocol 3 MG/HR Norepinephrine Bitartrate 8 mg in 250 mls @ 9.375 mls/hr 12/29/23 06:10 12/30/23 15:30 Levophed 8 Mg/D5w 250 Ml IV CONT 4 mcg/min .Q24H GELA 7.5 mls/hr Titration Protocol 5 MCG/MIN Piperacillin/Tazobactam/Dextrose 3.375 gm in 50 mls @ 100 mls/hr 12/29/23 12:00 12/30/23 12:38 Zosyn 3.375 Gm/Ns 50 Ml IVPB Infused Q6H GELA Infusion Dextrose 1,000 mls @ 100 mls/hr 12/29/23 08:21 Dextrose 5% 1,000 Ml IVPB PRN PRN Hypoglycemia Protocol Insulin Aspart 2 - 5 units 12/29/23 12:00 12/30/23 12:14 Insulin Aspart (*Bk) 100 Units/Ml SUB-Q Not Given Q6HR GELA Protocol Multi-Ingred Cream/Lotion/Oil/Oint 1 applic 12/29/23 09:00 12/30/23 09:41 Mineral Oil/White Petrolatum Ointment EACH EYE 1 applic Q12HR GELA Administration Ondansetron HCl 4 mg 12/29/23 05:25 Ondansetron Inj 4 Mg/2 Ml Vial IV PUSH Q4H PRN Nausea Pantoprazole Sodium 40 mg 12/29/23 09:00 12/30/23 09:40 Pantoprazole Sodium Iv 40 Mg Vial IV PUSH 40 mg QAM GELA Administration Polyethylene Glycol 17 gm 12/29/23 09:00 12/30/23 09:41 Polyethylene Glycol 3350 17 Gm Powd.Pack PO 17 gm QAM GELA Administration Sodium Chloride 10 ml 12/29/23 14:00 12/30/23 13:23 Central Line Flush IV PUSH 10 ml Q8HR GELA Administration Sodium Chloride 20 ml 12/29/23 07:06 Central Line Flush IV PUSH PRN PRN after blood draws Sodium Chloride 10 ml 12/29/23 14:00 12/30/23 13:24 Central Line Flush IV PUSH Not Given Q8HR GELA Sodium Chloride 20 ml 12/29/23 07:08 Central Line Flush IV PUSH PRN PRN after blood draws Radiology Results: ITS Impressions Abdomen X-Ray 12/29/23 07:23 Impression: NG tube in satisfactory position. Percutaneous gastrostomy tube also in place. Neck/Chest/Abdomen/Pelvis CT 12/29/23 18:24 IMPRESSION: Evaluation of the neck is limited without contrast. A neck mass is not excluded. Generalized neck edema/induration may be postsurgical or posttreatment in nature. Infection, such as cellulitis not excluded. Endotracheal tube terminates 5.6 cm above the doug, consider advancing by 1.6 cm. Pulmonary findings consistent with aspiration pneumonia. Small bilateral pleural effusions. Mediastinal lymphadenopathy. Rectal wall thickening as can be seen with proctitis. Mild fecal impaction with findings suggestive of constipation. Possible decubitus ulcer over the right buttock. Chest X-Ray 12/30/23 08:34 IMPRESSION: 1. Emphysema with opacities in the bilateral mid and lower lung zones consistent with pulmonary edema and/or pneumonia. Labs Labs: Laboratory Results - last 24 hr 12/29/23 12/29/23 12/29/23 12:30 17:44 23:42 WBC RBC Hgb Hct MCV MCH MCHC RDW Plt Count MPV Puncture Site ABG pH ABG pCO2 ABG pO2 ABG PO2/FiO2 Ratio ABG HCO3 ABG O2 Saturation ABG O2 Content ABG Base Excess A-a Gradient Oxyhemoglobin Carboxyhemoglobin Methemoglobin Reduced Hemoglobin Total Hemoglobin O2 Delivery Device O2 Liters/Min Vent Rate Vent Mode FiO2 Tidal Volume PEEP Sodium Potassium Chloride Carbon Dioxide Anion Gap BUN Creatinine Estim Creat Clear Calc Estimated GFR Glucose POC Capillary Glucose 123 H 111 H Calcium Magnesium Total Bilirubin AST ALT Alkaline Phosphatase Troponin I Cancelled Total Protein Albumin Vancomycin Trough 12/30/23 12/30/23 12/30/23 04:48 05:11 12:05 WBC 11.2 H RBC 3.79 L Hgb 12.5 L D Hct 37.9 L MCV 100.0 MCH 33.0 MCHC 33.0 RDW 14.1 Plt Count 108 L MPV 13.0 H Puncture Site Artline ABG pH 7.396 ABG pCO2 42.8 ABG pO2 288.4 H ABG PO2/FiO2 Ratio 3.61 ABG HCO3 25.7 ABG O2 Saturation 99.7 ABG O2 Content 18.7 ABG Base Excess 0.6 A-a Gradient 237.1 Oxyhemoglobin 99.3 Carboxyhemoglobin 0.3 Methemoglobin 0.3 Reduced Hemoglobin 0.1 Total Hemoglobin 12.9 O2 Delivery Device Ventilator O2 Liters/Min Not Reportable Vent Rate 25 Vent Mode Cmv FiO2 80 Tidal Volume 450 PEEP 12 Sodium 138 Potassium 3.9 Chloride 104 Carbon Dioxide 28 Anion Gap 6 BUN 26 H Creatinine 0.60 L Estim Creat Clear Calc 106 Estimated GFR > 60 Glucose 113 H POC Capillary Glucose Calcium 8.4 Magnesium 1.9 Total Bilirubin 1.0 AST 35 ALT 14 Alkaline Phosphatase 43 Troponin I Total Protein 6.0 L Albumin 3.4 L Vancomycin Trough 11.5 12/30/23 12:11 WBC RBC Hgb Hct MCV MCH MCHC RDW Plt Count MPV Puncture Site ABG pH ABG pCO2 ABG pO2 ABG PO2/FiO2 Ratio ABG HCO3 ABG O2 Saturation ABG O2 Content ABG Base Excess A-a Gradient Oxyhemoglobin Carboxyhemoglobin Methemoglobin Reduced Hemoglobin Total Hemoglobin O2 Delivery Device O2 Liters/Min Vent Rate Vent Mode FiO2 Tidal Volume PEEP Sodium Potassium Chloride Carbon Dioxide Anion Gap BUN Creatinine Estim Creat Clear Calc Estimated GFR Glucose POC Capillary Glucose 131 H Calcium Magnesium Total Bilirubin AST ALT Alkaline Phosphatase Troponin I Total Protein Albumin Vancomycin Trough
--- NOTE | 2023-12-30 17:11 | WPDPN ---
Subjective Date/time seen: 12/29/23 Objective Data Vital Signs Vital Signs: Vital Signs - 24 hr 12/29/23 17:12 12/29/23 17:49 12/29/23 18:00 Temperature Pulse Rate 91 90 99 Respiratory Rate Blood Pressure 124/91 H 157/83 H Pulse Oximetry Oxygen Delivery Fraction of Inspired Oxygen 12/29/23 18:13 12/29/23 18:00 12/29/23 18:00 Temperature Pulse Rate 99 99 99 Respiratory Rate 23 H Blood Pressure 121/69 151/107 H Pulse Oximetry Oxygen Delivery Fraction of Inspired Oxygen 12/29/23 17:55 12/29/23 18:00 12/29/23 18:00 Temperature Pulse Rate 93 99 99 Respiratory Rate 25 H 23 H Blood Pressure 153/83 H Pulse Oximetry Oxygen Delivery Fraction of Inspired Oxygen 12/29/23 18:00 12/29/23 18:30 12/29/23 18:35 Temperature 100.1 F H Pulse Rate 99 95 94 Respiratory Rate 23 H Blood Pressure 157/83 H 98/75 L 117/84 Pulse Oximetry 99 Oxygen Delivery Fraction of Inspired Oxygen 12/29/23 18:40 12/29/23 18:49 12/29/23 18:55 Temperature Pulse Rate 93 99 94 Respiratory Rate Blood Pressure 98/75 L 119/66 102/57 L Pulse Oximetry Oxygen Delivery Fraction of Inspired Oxygen 12/29/23 20:20 12/29/23 18:58 12/29/23 19:05 Temperature Pulse Rate 94 93 95 Respiratory Rate Blood Pressure 88/50 L 98/55 L Pulse Oximetry 98 Oxygen Delivery Mechanical Ventilation Fraction of Inspired Oxygen 80 12/29/23 20:00 12/29/23 20:35 12/29/23 20:00 Temperature Pulse Rate 94 88 91 Respiratory Rate 20 Blood Pressure 128/68 82/45 L Pulse Oximetry Oxygen Delivery Fraction of Inspired Oxygen 12/29/23 20:10 12/29/23 20:30 12/29/23 20:49 Temperature Pulse Rate 93 90 92 Respiratory Rate 20 23 H 24 H Blood Pressure Pulse Oximetry Oxygen Delivery Fraction of Inspired Oxygen 12/29/23 20:00 12/29/23 20:00 12/29/23 21:00 Temperature Pulse Rate 92 92 90 Respiratory Rate Blood Pressure 128/68 128/68 124/68 Pulse Oximetry Oxygen Delivery Fraction of Inspired Oxygen 12/29/23 22:25 12/29/23 22:00 12/29/23 20:00 Temperature Pulse Rate 89 87 95 Respiratory Rate 26 H Blood Pressure 82/44 L 93/76 L Pulse Oximetry Oxygen Delivery Fraction of Inspired Oxygen 12/29/23 22:50 12/29/23 22:00 12/29/23 23:00 Temperature Pulse Rate 94 87 88 Respiratory Rate 26 H Blood Pressure 178/90 H 120/64 Pulse Oximetry Oxygen Delivery Fraction of Inspired Oxygen 12/29/23 23:30 12/29/23 23:40 12/29/23 23:45 Temperature Pulse Rate 89 88 87 Respiratory Rate Blood Pressure 83/46 L 118/64 Pulse Oximetry 99 Oxygen Delivery Mechanical Ventilation Fraction of Inspired Oxygen 80 12/30/23 00:00 12/30/23 01:45 12/30/23 01:45 Temperature Pulse Rate 89 93 92 Respiratory Rate Blood Pressure 125/66 125/66 125/66 Pulse Oximetry Oxygen Delivery Fraction of Inspired Oxygen 12/29/23 20:00 12/29/23 20:00 12/29/23 20:00 Temperature 100.2 F H Pulse Rate 93 93 Respiratory Rate 25 H Blood Pressure 108/60 Pulse Oximetry 99 Oxygen Delivery Fraction of Inspired Oxygen 80 12/29/23 22:00 12/29/23 22:00 12/30/23 00:00 Temperature 97.9 F Pulse Rate 67 67 88 Respiratory Rate 25 H Blood Pressure 94/66 L Pulse Oximetry 94 Oxygen Delivery Fraction of Inspired Oxygen 12/30/23 00:00 12/30/23 00:00 12/30/23 02:25 Temperature 99.7 F H Pulse Rate 90 86 Respiratory Rate 25 H Blood Pressure 131/70 Pulse Oximetry 99 100 Oxygen Delivery Mechanical Ventilation Fraction of Inspired Oxygen 80 80 12/30/23 02:00 12/30/23 00:00 12/30/23 02:00 Temperature Pulse Rate 84 86 86 Respiratory Rate 26 H 25 H Blood Pressure 105/93 H Pulse Oximetry Oxygen Delivery Fraction of Inspired Oxygen 12/30/23 03:06 12/29/23 22:00 12/30/23 00:00 Temperature Pulse Rate 84 87 90 Respiratory Rate 25 H 25 H 25 H Blood Pressure Pulse Oximetry Oxygen Delivery Fraction of Inspired Oxygen 12/30/23 02:00 12/30/23 02:00 12/30/23 04:00 Temperature 99.5 F Pulse Rate 86 82 84 Respiratory Rate 25 H 25 H Blood Pressure 105/73 Pulse Oximetry Oxygen Delivery Fraction of Inspired Oxygen 12/30/23 04:00 12/30/23 04:00 12/30/23 04:00 Temperature 99.4 F Pulse Rate 84 83 Respiratory Rate 25 H Blood Pressure 118/88 118/88 Pulse Oximetry 100 Oxygen Delivery Fraction of Inspired Oxygen 80 12/30/23 04:00 12/30/23 04:00 12/30/23 06:00 Temperature Pulse Rate 83 83 87 Respiratory Rate 25 H 25 H Blood Pressure 122/89 Pulse Oximetry Oxygen Delivery Fraction of Inspired Oxygen 12/30/23 06:00 12/30/23 06:00 12/30/23 06:00 Temperature Pulse Rate 88 87 87 Respiratory Rate 25 H 25 H Blood Pressure 122/89 Pulse Oximetry Oxygen Delivery Fraction of Inspired Oxygen 12/30/23 06:00 12/30/23 06:00 12/30/23 07:30 Temperature 99.1 F Pulse Rate 88 88 89 Respiratory Rate 25 H Blood Pressure 122/89 135/99 H Pulse Oximetry 100 Oxygen Delivery Fraction of Inspired Oxygen 12/30/23 07:59 12/30/23 07:59 12/30/23 08:22 Temperature Pulse Rate 88 94 Respiratory Rate Blood Pressure Pulse Oximetry 100 100 100 Oxygen Delivery Mechanical Ventilation Mechanical Ventilation Mechanical Ventilation Fraction of Inspired Oxygen 80 80 50 12/30/23 08:15 12/30/23 08:15 12/30/23 08:00 Temperature Pulse Rate 98 98 90 Respiratory Rate 22 H 25 H 26 H Blood Pressure Pulse Oximetry 97 Oxygen Delivery Mechanical Ventilation Fraction of Inspired Oxygen 50 12/30/23 10:05 12/30/23 10:10 12/30/23 08:00 Temperature Pulse Rate 78 79 90 Respiratory Rate Blood Pressure 97/70 L 113/63 Pulse Oximetry Oxygen Delivery Fraction of Inspired Oxygen 12/30/23 08:00 12/30/23 08:00 12/30/23 10:00 Temperature 99.1 F Pulse Rate 88 90 Respiratory Rate 26 H Blood Pressure 109/80 Pulse Oximetry 100 Oxygen Delivery Fraction of Inspired Oxygen 40 12/30/23 10:00 12/30/23 10:44 12/30/23 08:00 Temperature 98.6 F Pulse Rate 78 81 88 Respiratory Rate 25 H Blood Pressure 131/67 109/86 Pulse Oximetry 98 99 Oxygen Delivery Mechanical Ventilation Fraction of Inspired Oxygen 40 12/30/23 10:00 12/30/23 08:00 12/30/23 10:00 Temperature Pulse Rate 80 88 91 Respiratory Rate 25 H 25 H Blood Pressure 91/75 L Pulse Oximetry Oxygen Delivery Fraction of Inspired Oxygen 12/30/23 08:00 12/30/23 10:00 12/30/23 12:00 Temperature Pulse Rate 86 91 82 Respiratory Rate 24 H 22 H Blood Pressure 131/85 Pulse Oximetry Oxygen Delivery Fraction of Inspired Oxygen 12/30/23 12:10 12/30/23 12:00 12/30/23 12:00 Temperature Pulse Rate 84 87 85 Respiratory Rate 22 H 25 H Blood Pressure 134/73 Pulse Oximetry Oxygen Delivery Fraction of Inspired Oxygen 12/30/23 12:00 12/30/23 12:00 12/30/23 12:00 Temperature 98.6 F Pulse Rate 86 86 Respiratory Rate 25 H Blood Pressure 131/85 Pulse Oximetry 98 Oxygen Delivery Fraction of Inspired Oxygen 40 12/30/23 12:00 12/30/23 13:52 12/30/23 15:30 Temperature Pulse Rate 76 74 86 Respiratory Rate 25 H Blood Pressure 156/93 H Pulse Oximetry 98 98 Oxygen Delivery Mechanical Ventilation Mechanical Ventilation Fraction of Inspired Oxygen 40 40 12/30/23 14:00 12/30/23 14:00 12/30/23 16:00 Temperature 98.8 F Pulse Rate 69 83 76 Respiratory Rate 22 H Blood Pressure 140/79 101/72 Pulse Oximetry 98 Oxygen Delivery Fraction of Inspired Oxygen 12/30/23 16:27 12/30/23 16:00 12/30/23 14:00 Temperature Pulse Rate 75 65 74 Respiratory Rate 25 H Blood Pressure 104/76 Pulse Oximetry 97 99 Oxygen Delivery Mechanical Ventilation Mechanical Ventilation Fraction of Inspired Oxygen 40 40 12/30/23 14:00 12/30/23 16:00 12/30/23 14:00 Temperature Pulse Rate 77 73 73 Respiratory Rate 25 H 25 H 25 H Blood Pressure Pulse Oximetry Oxygen Delivery Fraction of Inspired Oxygen 12/30/23 16:00 Temperature Pulse Rate 77 Respiratory Rate 25 H Blood Pressure Pulse Oximetry Oxygen Delivery Fraction of Inspired Oxygen Intake/Output Intake/Output: Intake & Output 12/27/23 12/28/23 12/29/23 12/30/23 23:59 23:59 23:59 23:59 Intake Total 4864.8 996.7 Output Total 600 600 Balance 4264.8 396.7 Meds/Results Medications: Active Medications Generic Name Dose Route Start Last Admin Trade Name Freq PRN Reason Stop Dose Admin Acetaminophen 650 mg 12/29/23 05:25 12/29/23 10:41 Acetaminophen 650 Mg Suppository RECTAL 650 mg Q6H PRN Administration Mild Pain (1-3) or Fever Bisacodyl 10 mg 12/30/23 08:09 Bisacodyl 10 Mg Suppository RECTAL QAM PRN Constipation Dextrose 12.5 gm 12/29/23 08:21 Dextrose 50% 25 Gm/50 Ml Syringe IV PUSH PRN PRN Hypoglycemia Protocol Enoxaparin Sodium 40 mg 12/29/23 09:00 12/30/23 09:41 Enoxaparin 40 Mg/0.4 Ml Syringe SUB-Q 40 mg DAILY GELA Administration Glucagon 1 mg 12/29/23 08:21 Glucagon For Inj 1 Mg Vial IM PRN PRN Hypoglycemia Protocol Glucose 15 gm 12/29/23 08:21 Glucose Oral Gel 15 Gm Of Glucse In 37.5 Gm Tube PO PRN PRN Hypoglycemia Protocol Hydrocortisone Sodium Succinate 100 mg 12/29/23 09:00 12/30/23 16:53 Hydrocortisone Sodium Succinate 100 Mg/2 Ml Vial IV PUSH 100 mg Q8H GELA Administration Fentanyl Citrate 2,500 mcg in 250 mls @ 7.5 mls/hr 12/29/23 04:40 12/30/23 16:00 Fentanyl 2,500 Mcg/Ns 250 Ml IV CONT 75 mcg/hr .[id number] GLEA 7.5 mls/hr Titration Protocol 75 MCG/HR Midazolam HCl 100 mg in 100 mls @ 3 mls/hr 12/29/23 05:20 12/30/23 16:00 Versed 100 Mg/Ns 100 Ml IV CONT 3 mg/hr .[id number] GELA 3 mls/hr Titration Protocol 3 MG/HR Norepinephrine Bitartrate 8 mg in 250 mls @ 11.25 mls/hr 12/29/23 06:10 12/30/23 16:00 Levophed 8 Mg/D5w 250 Ml IV CONT 6 mcg/min .[id number] GELA 11.25 mls/hr Titration Protocol 6 MCG/MIN Piperacillin/Tazobactam/Dextrose 3.375 gm in 50 mls @ 100 mls/hr 12/29/23 12:00 12/30/23 12:38 Zosyn 3.375 Gm/Ns 50 Ml IVPB Infused Q6H GELA Infusion Dextrose 1,000 mls @ 100 mls/hr 12/29/23 08:21 Dextrose 5% 1,000 Ml IVPB PRN PRN Hypoglycemia Protocol Insulin Aspart 2 - 5 units 12/29/23 12:00 12/30/23 12:14 Insulin Aspart (*Bkc) 100 Units/Ml SUB-Q Not Given Q6HR GELA Protocol Multi-Ingred Cream/Lotion/Oil/Oint 1 applic 12/29/23 09:00 12/30/23 09:41 Mineral Oil/White Petrolatum Ointment EACH EYE 1 applic Q12HR GELA Administration Ondansetron HCl 4 mg 12/29/23 05:25 Ondansetron Inj 4 Mg/2 Ml Vial IV PUSH Q4H PRN Nausea Pantoprazole Sodium 40 mg 12/29/23 09:00 12/30/23 09:40 Pantoprazole Sodium Iv 40 Mg Vial IV PUSH 40 mg QAM GELA Administration Polyethylene Glycol 17 gm 12/29/23 09:00 12/30/23 09:41 Polyethylene Glycol 3350 17 Gm Powd.Pack PO 17 gm QAM GELA Administration Sodium Chloride 10 ml 12/29/23 14:00 12/30/23 13:23 Central Line Flush IV PUSH 10 ml Q8HR GELA Administration Sodium Chloride 20 ml 12/29/23 07:06 Central Line Flush IV PUSH PRN PRN after blood draws Sodium Chloride 10 ml 12/29/23 14:00 12/30/23 13:24 Central Line Flush IV PUSH Not Given Q8HR GELA Sodium Chloride 20 ml 12/29/23 07:08 Central Line Flush IV PUSH PRN PRN after blood draws Radiology Results: ITS Impressions Abdomen X-Ray 12/29/23 07:23 Impression: NG tube in satisfactory position. Percutaneous gastrostomy tube also in place. Neck/Chest/Abdomen/Pelvis CT 12/29/23 18:24 IMPRESSION: Evaluation of the neck is limited without contrast. A neck mass is not excluded. Generalized neck edema/induration may be postsurgical or posttreatment in nature. Infection, such as cellulitis not excluded. Endotracheal tube terminates 5.6 cm above the doug, consider advancing by 1.6 cm. Pulmonary findings consistent with aspiration pneumonia. Small bilateral pleural effusions. Mediastinal lymphadenopathy. Rectal wall thickening as can be seen with proctitis. Mild fecal impaction with findings suggestive of constipation. Possible decubitus ulcer over the right buttock. Chest X-Ray 12/30/23 08:34 IMPRESSION: 1. Emphysema with opacities in the bilateral mid and lower lung zones consistent with pulmonary edema and/or pneumonia. Labs Labs: Laboratory Results - last 24 hr 12/29/23 12/29/23 12/29/23 12:30 17:44 23:42 WBC RBC Hgb Hct MCV MCH MCHC RDW Plt Count MPV Puncture Site ABG pH ABG pCO2 ABG pO2 ABG PO2/FiO2 Ratio ABG HCO3 ABG O2 Saturation ABG O2 Content ABG Base Excess A-a Gradient Oxyhemoglobin Carboxyhemoglobin Methemoglobin Reduced Hemoglobin Total Hemoglobin O2 Delivery Device O2 Liters/Min Vent Rate Vent Mode FiO2 Tidal Volume PEEP Sodium Potassium Chloride Carbon Dioxide Anion Gap BUN Creatinine Estim Creat Clear Calc Estimated GFR Glucose POC Capillary Glucose 123 H 111 H Calcium Magnesium Total Bilirubin AST ALT Alkaline Phosphatase Troponin I Cancelled Total Protein Albumin Vancomycin Trough 12/30/23 12/30/23 12/30/23 04:48 05:11 12:05 WBC 11.2 H RBC 3.79 L Hgb 12.5 L D Hct 37.9 L MCV 100.0 MCH 33.0 MCHC 33.0 RDW 14.1 Plt Count 108 L MPV 13.0 H Puncture Site Artline ABG pH 7.396 ABG pCO2 42.8 ABG pO2 288.4 H ABG PO2/FiO2 Ratio 3.61 ABG HCO3 25.7 ABG O2 Saturation 99.7 ABG O2 Content 18.7 ABG Base Excess 0.6 A-a Gradient 237.1 Oxyhemoglobin 99.3 Carboxyhemoglobin 0.3 Methemoglobin 0.3 Reduced Hemoglobin 0.1 Total Hemoglobin 12.9 O2 Delivery Device Ventilator O2 Liters/Min Not Reportable Vent Rate 25 Vent Mode Cmv FiO2 80 Tidal Volume 450 PEEP 12 Sodium 138 Potassium 3.9 Chloride 104 Carbon Dioxide 28 Anion Gap 6 BUN 26 H Creatinine 0.60 L Estim Creat Clear Calc 106 Estimated GFR > 60 Glucose 113 H POC Capillary Glucose Calcium 8.4 Magnesium 1.9 Total Bilirubin 1.0 AST 35 ALT 14 Alkaline Phosphatase 43 Troponin I Total Protein 6.0 L Albumin 3.4 L Vancomycin Trough 11.5 12/30/23 12:11 WBC RBC Hgb Hct MCV MCH MCHC RDW Plt Count MPV Puncture Site ABG pH ABG pCO2 ABG pO2 ABG PO2/FiO2 Ratio ABG HCO3 ABG O2 Saturation ABG O2 Content ABG Base Excess A-a Gradient Oxyhemoglobin Carboxyhemoglobin Methemoglobin Reduced Hemoglobin Total Hemoglobin O2 Delivery Device O2 Liters/Min Vent Rate Vent Mode FiO2 Tidal Volume PEEP Sodium Potassium Chloride Carbon Dioxide Anion Gap BUN Creatinine Estim Creat Clear Calc Estimated GFR Glucose POC Capillary Glucose 131 H Calcium Magnesium Total Bilirubin AST ALT Alkaline Phosphatase Troponin I Total Protein Albumin Vancomycin Trough
--- NOTE | 2023-12-30 17:15 | WPDPROCEDUR ---
Procedures Intubation Intubation Date: 12/29/23 Intubation Time: 04:33 A pre-procedural Time-Out was completed immediately before starting the procedure and confirmed: Patient Identification, Site, Procedure, Patient Position and the Availability of Requisite Equipment: Yes Sedative: etomidate Paralytic: rocuronium Laryngoscope: Lucas (4) Tube secured depth (cm): 25 Tube secured location: lips Tube placement confirmation: visualized tube passing through cords, equal breath sounds bilaterally and confirmation by capnometry Patient tolerated procedure: well and no complications Intubation complications: none
[2023-12-30 18:58] LABS: Glucose Point of Care 139 mg/dl (65-105)
[2023-12-30] MEDS: FENTANYL 2,500MCG/NS250ML(*CRX 2,500 MCG/250 ML BAG 7.5 MCG IV CONT (20:00)
[2023-12-30] MEDS: MIDAZOLAM 100MG/NS 100ML(*CRX) 100 MG/100 ML BAG IV CONT (21:20)
[2023-12-31] VITALS (37 sets, daily range): BP systolic 82–164; BP diastolic 44–88; PULSE 61–91; RESP 25–26; TEMP 36.8–37.1; O2SAT 90–99
[2023-12-31 00:11] LABS: Glucose Point of Care 162 mg/dl (65-105)
[2023-12-31 05:10] LABS: Alveolar/Arterial O2 Gradient 127.2 mmHg; Base Excess ABG 2.7 mEq/l (+/-2.0); Carboxyhemoglobin 0.4 % THb (0-2.0); Fractional Inspired Oxygen 40 %; HCO3 ABG 27.5 mEq/l (22.0-26.0); Methemoglobin ABG 0.1 %THb (0-1.5); Oxygen Content ABG 17.8 %vol (16.0-22.0); Oxyhemoglobin 98.2 % THb (90.0-100.0); PO2 ABG 108.6 mmHg (80.0-100.0); PO2 FiO2 Ratio Arterial Blood 2.71 %; Reduced Hemoglobin 1.3 %THb (0-5.0); Total Hemoglobin 12.8 g/dL (12.0-18.0); pH ABG 7.423 (7.350-7.450)
[2023-12-31 05:12] LABS: Arterial Blood Gas Ventilator rate 25 /MIN; Device VENTILATOR; Modified Allen's Test Pass; Site Drawn ARTLINE
[2023-12-31 05:13] LABS: Arterial Blood Gas PEEP 10 cmH2O; Arterial Blood Gas Tidal Volume 450 ml; Arterial Blood Gas Vent Mode CMV
[2023-12-31] MEDS: PIPERACILLN/TAZ 3.375GM/NS50ML 3.375 GM/50 ML BAG IVPB ×4 (05:28→17:33)
[2023-12-31] MEDS: CENTRAL LINE FLUSH 10 ML IV PUSH ×5 (05:29→21:22)
[2023-12-31 05:31] LABS: Hematocrit 35.7 % (42.0-52.0); Mean Corpuscular HGB Conc 33.6 g/dl (32-36); Mean Corpuscular Hemoglobin 33.5 pg (26-34); Mean Corpuscular Volume 99.7 fl (80-100); Mean Platelet Volume 13.1 fl (7.4-10.4); Platelet Count Result 120 k/mm3 (150-375); Red Blood Count 3.58 M/mm3 (4.6-6.20)
[2023-12-31 05:39] LABS: Alanine Aminotransferase 12 U/L (6-50); Albumin Level 3.1 g/dL (3.5-5.1); Alkaline Phosphatase 50 U/L (38-126); Anion Gap 3 mmol/L (4-12); Aspartate Amino Transferase 25 U/L (17-59); Bilirubin,Total 0.5 mg/dL (0.2-1.3); Blood Urea Nitrogen 28 mg/dL (9-20); Calcium 8.5 mg/dL (8.4-10.2); Carbon Dioxide 30 mmol/L (22-30); Chloride 105 mmol/L (98-107); Estimated CRCL calculation 102 ml/min; Estimated Glomerular Filt Rate > 60; Glucose 138 mg/dL (65-110); Magnesium 2.2 mg/dL (1.6-2.3); Potassium 3.8 mmol/L (3.4-5.0); Sodium 138 mmol/L (137-145)
[2023-12-31] MEDS: NOREPINEPHRINE 8 MG/D5W 250 ML 8 MG/250 ML BAG 5.63 MG IV CONT (06:41)
[2023-12-31] MEDS: HYDROCORTISONE SODIUM SUCCINATE 100 MG/2 ML VIAL IV PUSH ×3 (08:33→17:33)
[2023-12-31] MEDS: polyethylene glycoL 3350 17 GM POWD.PACK PO (08:33)
[2023-12-31] MEDS: PANTOPRAZOLE SODIUM IV 40 MG VIAL IV PUSH (08:33)
[2023-12-31] MEDS: MINERAL OIL/WHITE PETROLATUM OINTMENT 1 APPLIC EACH EYE ×2 (08:33→21:22)
[2023-12-31] MEDS: ENOXAPARIN 40 MG/0.4 ML SYRINGE SUB-Q (08:33)
--- NOTE | 2023-12-31 08:46 | WPDINTPN ---
Progress Note: A&P Assessment and Plan (1) Acute respiratory failure: Code(s): J96.00 - Acute respiratory failure, unspecified whether with hypoxia or hypercapnia Status: Acute Assessment and Plan: acute respiratory failure secondary to aspiration pneumonia CT chest review chest x-ray reviewed. ABG reviewed decrease PEEP to 8. FiO2 is at 40%. Continue to wean Treatment of pneumonia as below (2) Septic shock: Code(s): A41.9 - Sepsis, unspecified organism; R65.21 - Severe sepsis with septic shock Status: Acute Assessment and Plan: septic shock secondary to aspiration pneumonia. 12/29 improved with decreased vasopressor requirement. Patient is now off of vasopressin epinephrine drip and only on Levophed. Which will be continued. Will discontinue further IV fluids. Continue stress dose hydrocortisone blood and sputum culture sent and pending continue empiric Zosyn. discontinued vancomycin (3) Nausea & vomiting: Code(s): R11.2 - Nausea with vomiting, unspecified Status: Acute Assessment and Plan: currently sedated. Zofran ordered. Start tube feeding (4) Aspiration pneumonia: Qualifiers: Aspiration pneumonia type: unspecified Laterality: unspecified laterality Lung location: unspecified part of lung Qualified Code(s): J69.0 - Pneumonitis due to inhalation of food and vomit Code(s): J69.0 - Pneumonitis due to inhalation of food and vomit Status: Acute Assessment and Plan: see above Plan DVT prophylaxis - Lovenox Stress ulcer prophylaxis - PPI Nutrition - advance tube feeding Code Status - Full Code I spoke to patient's at bedside updated her with patient's current status answered all questions. Total Critical Care Time - 32 minutes Due to a high probability of clinically significant, life threatening deterioration, the patient required my highest level of preparedness to intervene emergently and I personally spent this critical care time directly and personally managing the patient. This critical care time included obtaining a history; examining the patient; pulse oximetry; ordering and review of studies; arranging urgent treatment with development of a management plan; evaluation of patient's response to treatment; frequent reassessment; and discussions with other providers. It was exclusive of separately billable procedures and treating other patients and teaching time. Please see Assessment and Plan section and the rest of the note for further information on patient assessment and treatment Subjective Date/time seen: 12/31/23 Overnight events reviewed. Afebrile Continues to be on mechanical ventilation 40% FiO2 and 10 of PEEP Continues to be on low-dose Levoph Continues to be sedated with Versed and fentanyl tube feeds at 20 mL/hour. Other Vitals acceptable Review of Systems Review of Systems: ROS unobtainable: Yes unobtainable due to endotracheal tube, unobtainable due to medical condition and unobtainable due to mental status Exam Narrative: General: Pt is sedated, intubated and on mechanical ventilation Lungs/Chest: Trachea central Coarse BS B/L, No crackles or wheezing. Cardiac: RRR. Normal S1 S2. No murmurs Circulation: Pedal pulses are intact and symmetrical. Abdomen: Decreased bowel sounds. peg tube in place. Soft. NT. ND. Extremities: No clubbing, cyanosis or edema. Warm : Vanessa in place Neurologic: Follows commands with all 4 extremities . PERRL Objective Data Vital Signs Vital Signs: Vital Signs - 24 hr 12/30/23 10:05 12/30/23 10:10 12/30/23 10:00 Temperature Pulse Rate 78 79 90 Respiratory Rate Blood Pressure 97/70 L 113/63 Pulse Oximetry Oxygen Delivery Fraction of Inspired Oxygen 12/30/23 10:00 12/30/23 10:44 12/30/23 10:00 Temperature 37.0 C Pulse Rate 78 81 80 Respiratory Rate 25 H Blood Pressure 131/67 91/75 L Pulse Oximetry 98 99 Oxygen Delivery Mechanical Ventilation Fraction of Inspired Oxygen 40 12/30/23 10:00 12/30/23 10:00 12/30/23 12:00 Temperature Pulse Rate 91 91 82 Respiratory Rate 25 H 22 H Blood Pressure 131/85 Pulse Oximetry Oxygen Delivery Fraction of Inspired Oxygen 12/30/23 12:10 12/30/23 12:00 12/30/23 12:00 Temperature Pulse Rate 84 87 85 Respiratory Rate 22 H 25 H Blood Pressure 134/73 Pulse Oximetry Oxygen Delivery Fraction of Inspired Oxygen 12/30/23 12:00 12/30/23 12:00 12/30/23 12:00 Temperature 37.0 C Pulse Rate 86 86 Respiratory Rate 25 H Blood Pressure 131/85 Pulse Oximetry 98 Oxygen Delivery Fraction of Inspired Oxygen 40 12/30/23 12:00 12/30/23 13:52 12/30/23 15:30 Temperature Pulse Rate 76 74 86 Respiratory Rate 25 H Blood Pressure 156/93 H Pulse Oximetry 98 98 Oxygen Delivery Mechanical Ventilation Mechanical Ventilation Fraction of Inspired Oxygen 40 40 12/30/23 14:00 12/30/23 14:00 12/30/23 16:00 Temperature 37.1 C Pulse Rate 69 83 76 Respiratory Rate 22 H Blood Pressure 140/79 101/72 Pulse Oximetry 98 Oxygen Delivery Fraction of Inspired Oxygen 12/30/23 16:27 12/30/23 16:00 12/30/23 14:00 Temperature Pulse Rate 75 65 74 Respiratory Rate 25 H Blood Pressure 104/76 Pulse Oximetry 97 99 Oxygen Delivery Mechanical Ventilation Mechanical Ventilation Fraction of Inspired Oxygen 40 40 12/30/23 14:00 12/30/23 16:00 12/30/23 14:00 Temperature Pulse Rate 77 73 73 Respiratory Rate 25 H 25 H 25 H Blood Pressure Pulse Oximetry Oxygen Delivery Fraction of Inspired Oxygen 12/30/23 16:00 12/30/23 16:00 12/30/23 16:00 Temperature Pulse Rate 77 80 Respiratory Rate 25 H Blood Pressure Pulse Oximetry Oxygen Delivery Fraction of Inspired Oxygen 40 12/30/23 16:00 12/30/23 17:56 12/30/23 18:45 Temperature 37.1 C Pulse Rate 80 74 85 Respiratory Rate 25 H Blood Pressure 118/67 126/77 Pulse Oximetry 97 Oxygen Delivery Fraction of Inspired Oxygen 12/30/23 18:50 12/30/23 18:00 12/30/23 18:00 Temperature Pulse Rate 86 84 86 Respiratory Rate 24 H Blood Pressure 156/82 H 145/79 H 118/83 Pulse Oximetry 98 Oxygen Delivery Fraction of Inspired Oxygen 12/30/23 18:00 12/30/23 18:00 12/30/23 19:44 Temperature Pulse Rate 84 85 83 Respiratory Rate 25 H 25 H Blood Pressure Pulse Oximetry 98 Oxygen Delivery Mechanical Ventilation Fraction of Inspired Oxygen 40 12/30/23 20:00 12/30/23 20:00 12/30/23 19:00 Temperature Pulse Rate 82 82 84 Respiratory Rate 25 H 25 H Blood Pressure 147/80 H Pulse Oximetry Oxygen Delivery Fraction of Inspired Oxygen 12/30/23 20:00 12/30/23 20:00 12/30/23 20:00 Temperature Pulse Rate 80 80 Respiratory Rate 25 H Blood Pressure 145/80 H Pulse Oximetry Oxygen Delivery Fraction of Inspired Oxygen 40 12/30/23 20:00 12/30/23 20:00 12/30/23 20:00 Temperature 37.1 C Pulse Rate 80 82 Respiratory Rate 147 H Blood Pressure 147/80 H Pulse Oximetry 97 Oxygen Delivery Mechanical Ventilation Fraction of Inspired Oxygen 40 12/30/23 21:20 12/30/23 21:20 12/30/23 21:22 Temperature Pulse Rate 79 79 70 Respiratory Rate 25 H 25 H Blood Pressure 90/51 L Pulse Oximetry Oxygen Delivery Fraction of Inspired Oxygen 12/30/23 20:15 12/30/23 22:00 12/30/23 22:00 Temperature Pulse Rate 83 71 71 Respiratory Rate 25 H Blood Pressure 154/84 H 135/91 H Pulse Oximetry Oxygen Delivery Fraction of Inspired Oxygen 12/30/23 22:00 12/30/23 22:00 12/30/23 22:00 Temperature 37.1 C Pulse Rate 71 71 71 Respiratory Rate 25 H 25 H Blood Pressure 137/71 Pulse Oximetry 99 Oxygen Delivery Fraction of Inspired Oxygen 12/30/23 23:05 12/30/23 23:57 12/31/23 00:12 Temperature Pulse Rate 70 87 88 Respiratory Rate Blood Pressure 164/88 H 150/79 H Pulse Oximetry 98 Oxygen Delivery Mechanical Ventilation Fraction of Inspired Oxygen 40 12/31/23 00:22 12/31/23 00:00 12/31/23 00:00 Temperature 37.1 C Pulse Rate 91 83 Respiratory Rate 25 H Blood Pressure 151/77 H 153/81 H Pulse Oximetry 98 Oxygen Delivery Fraction of Inspired Oxygen 40 12/31/23 00:00 12/31/23 00:00 12/31/23 00:00 Temperature Pulse Rate 87 87 Respiratory Rate Blood Pressure 157/85 H Pulse Oximetry Oxygen Delivery Mechanical Ventilation Fraction of Inspired Oxygen 40 12/31/23 00:00 12/31/23 02:00 12/31/23 02:00 Temperature 36.9 C Pulse Rate 87 68 68 Respiratory Rate 25 H 25 H Blood Pressure 91/49 L Pulse Oximetry 97 Oxygen Delivery Fraction of Inspired Oxygen 12/31/23 02:00 12/31/23 02:00 12/31/23 02:00 Temperature Pulse Rate 68 68 68 Respiratory Rate 25 H 25 H Blood Pressure 91/49 L Pulse Oximetry Oxygen Delivery Fraction of Inspired Oxygen 12/31/23 00:37 12/31/23 02:11 12/31/23 03:00 Temperature Pulse Rate 70 66 67 Respiratory Rate 25 H Blood Pressure 154/83 H Pulse Oximetry 97 Oxygen Delivery Mechanical Ventilation Fraction of Inspired Oxygen 40 12/31/23 03:30 12/31/23 04:00 12/31/23 04:00 Temperature 36.9 C Pulse Rate 68 65 Respiratory Rate 25 H 25 H Blood Pressure 103/56 L Pulse Oximetry 99 Oxygen Delivery Fraction of Inspired Oxygen 40 12/31/23 04:00 12/31/23 04:00 12/31/23 04:00 Temperature Pulse Rate 65 65 Respiratory Rate 25 H Blood Pressure 103/56 L Pulse Oximetry Oxygen Delivery Mechanical Ventilation Fraction of Inspired Oxygen 40 12/31/23 04:00 12/31/23 05:04 12/31/23 04:00 Temperature Pulse Rate 65 65 67 Respiratory Rate 25 H Blood Pressure Pulse Oximetry 98 Oxygen Delivery Mechanical Ventilation Fraction of Inspired Oxygen 40 12/31/23 06:00 12/31/23 06:00 12/31/23 06:00 Temperature Pulse Rate 89 89 89 Respiratory Rate 25 H 25 H Blood Pressure 164/88 H Pulse Oximetry Oxygen Delivery Fraction of Inspired Oxygen 12/31/23 06:00 12/31/23 06:00 12/31/23 06:41 Temperature 36.9 C Pulse Rate 89 89 79 Respiratory Rate 25 H Blood Pressure 164/88 H 137/71 Pulse Oximetry 96 Oxygen Delivery Fraction of Inspired Oxygen 12/31/23 06:43 12/31/23 07:35 12/31/23 08:06 Temperature Pulse Rate 81 81 69 Respiratory Rate Blood Pressure 146/80 H 134/64 Pulse Oximetry 99 Oxygen Delivery Mechanical Ventilation Fraction of Inspired Oxygen 40 Intake/Output Intake/Output: Intake & Output 12/28/23 12/29/23 12/30/23 12/31/23 23:59 23:59 23:59 23:59 Intake Total 4864.8 1791.1 483.8 Output Total 600 1000 350 Balance 4264.8 791.1 133.8 Meds/Results Medications: Active Medications Generic Name Dose Route Start Last Admin Trade Name Freq PRN Reason Stop Dose Admin Acetaminophen 650 mg 12/29/23 05:25 12/29/23 10:41 Acetaminophen 650 Mg Suppository RECTAL 650 mg Q6H PRN Administration Mild Pain (1-3) or Fever Bisacodyl 10 mg 12/30/23 08:09 Bisacodyl 10 Mg Suppository RECTAL QAM PRN Constipation Dextrose 12.5 gm 12/29/23 08:21 Dextrose 50% 25 Gm/50 Ml Syringe IV PUSH PRN PRN Hypoglycemia Protocol Enoxaparin Sodium 40 mg 12/29/23 09:00 12/31/23 08:33 Enoxaparin 40 Mg/0.4 Ml Syringe SUB-Q 40 mg DAILY GELA Administration Glucagon 1 mg 12/29/23 08:21 Glucagon For Inj 1 Mg Vial IM PRN PRN Hypoglycemia Protocol Glucose 15 gm 12/29/23 08:21 Glucose Oral Gel 15 Gm Of Glucse In 37.5 Gm Tube PO PRN PRN Hypoglycemia Protocol Hydrocortisone Sodium Succinate 100 mg 12/29/23 09:00 12/31/23 08:33 Hydrocortisone Sodium Succinate 100 Mg/2 Ml Vial IV PUSH 100 mg Q8H GELA Administration Fentanyl Citrate 2,500 mcg in 250 mls @ 7.5 mls/hr 12/29/23 04:40 12/31/23 06:00 Fentanyl 2,500 Mcg/Ns 250 Ml IV CONT 75 mcg/hr .[id number] GELA 7.5 mls/hr Titration Protocol 75 MCG/HR Midazolam HCl 100 mg in 100 mls @ 2 mls/hr 12/29/23 05:20 12/31/23 07:22 Versed 100 Mg/Ns 100 Ml IV CONT Not Given .Q50H GELA Protocol 2 MG/HR Norepinephrine Bitartrate 8 mg in 250 mls @ 1.875 mls/hr 12/29/23 06:10 12/31/23 08:06 Levophed 8 Mg/D5w 250 Ml IV CONT 1 mcg/min .Q24H GELA 1.88 mls/hr Titration Protocol 1 MCG/MIN Piperacillin/Tazobactam/Dextrose 3.375 gm in 50 mls @ 100 mls/hr 12/29/23 12:00 12/31/23 05:58 Zosyn 3.375 Gm/Ns 50 Ml IVPB Infused Q6H GELA Infusion Dextrose 1,000 mls @ 100 mls/hr 12/29/23 08:21 Dextrose 5% 1,000 Ml IVPB PRN PRN Hypoglycemia Protocol Insulin Aspart 2 - 5 units 12/29/23 12:00 12/31/23 06:11 Insulin Aspart (*Bkc) 100 Units/Ml SUB-Q Not Given Q6HR GELA Protocol Multi-Ingred Cream/Lotion/Oil/Oint 1 applic 12/29/23 09:00 12/31/23 08:33 Mineral Oil/White Petrolatum Ointment EACH EYE 1 applic Q12HR GELA Administration Ondansetron HCl 4 mg 12/29/23 05:25 Ondansetron Inj 4 Mg/2 Ml Vial IV PUSH Q4H PRN Nausea Pantoprazole Sodium 40 mg 12/29/23 09:00 12/31/23 08:33 Pantoprazole Sodium Iv 40 Mg Vial IV PUSH 40 mg QAM GELA Administration Polyethylene Glycol 17 gm 12/29/23 09:00 12/31/23 08:33 Polyethylene Glycol 3350 17 Gm Powd.Pack PO 17 gm QAM GELA Administration Sodium Chloride 10 ml 12/29/23 14:00 12/31/23 05:29 Central Line Flush IV PUSH 10 ml Q8HR GELA Administration Sodium Chloride 20 ml 12/29/23 07:06 Central Line Flush IV PUSH PRN PRN after blood draws Sodium Chloride 10 ml 12/29/23 14:00 12/31/23 05:29 Central Line Flush IV PUSH 10 ml Q8HR GELA Administration Sodium Chloride 20 ml 12/29/23 07:08 Central Line Flush IV PUSH PRN PRN after blood draws Radiology Results: ITS Impressions Abdomen X-Ray 12/29/23 07:23 Impression: NG tube in satisfactory position. Percutaneous gastrostomy tube also in place. Neck/Chest/Abdomen/Pelvis CT 12/29/23 18:24 IMPRESSION: Evaluation of the neck is limited without contrast. A neck mass is not excluded. Generalized neck edema/induration may be postsurgical or posttreatment in nature. Infection, such as cellulitis not excluded. Endotracheal tube terminates 5.6 cm above the doug, consider advancing by 1.6 cm. Pulmonary findings consistent with aspiration pneumonia. Small bilateral pleural effusions. Mediastinal lymphadenopathy. Rectal wall thickening as can be seen with proctitis. Mild fecal impaction with findings suggestive of constipation. Possible decubitus ulcer over the right buttock. Chest X-Ray 12/31/23 06:17 Impression: Improving bibasilar hazy airspace disease. Probable underlying COPD and/or chronic interstitial disease. Support tubes, as above. Labs Labs: Laboratory Results - last 24 hr 12/30/23 12/30/23 12/30/23 12:05 12:11 18:48 WBC RBC Hgb Hct MCV MCH MCHC RDW Plt Count MPV % Immature Plt Fraction Puncture Site ABG pH ABG pCO2 ABG pO2 ABG PO2/FiO2 Ratio ABG HCO3 ABG O2 Saturation ABG O2 Content ABG Base Excess A-a Gradient Oxyhemoglobin Carboxyhemoglobin Methemoglobin Reduced Hemoglobin Total Hemoglobin O2 Delivery Device O2 Liters/Min Minute Volume Vent Rate Vent Mode FiO2 Tidal Volume PEEP Peak Inspir Pressure Pressure Support Sodium Potassium Chloride Carbon Dioxide Anion Gap BUN Creatinine Estim Creat Clear Calc Estimated GFR Glucose POC Capillary Glucose 131 H 139 H Calcium Magnesium Total Bilirubin AST ALT Alkaline Phosphatase Total Protein Albumin Vancomycin Trough 11.5 12/30/23 12/31/23 12/31/23 23:56 04:57 05:18 WBC 12.0 H RBC 3.58 L Hgb 12.0 L Hct 35.7 L MCV 99.7 MCH 33.5 MCHC 33.6 RDW 14.0 Plt Count 120 L MPV 13.1 H % Immature Plt Fraction 12.0 H Puncture Site Artline ABG pH 7.423 ABG pCO2 43.0 ABG pO2 108.6 H ABG PO2/FiO2 Ratio 2.71 ABG HCO3 27.5 H ABG O2 Saturation 98.0 ABG O2 Content 17.8 ABG Base Excess 2.7 A-a Gradient 127.2 Oxyhemoglobin 98.2 Carboxyhemoglobin 0.4 Methemoglobin 0.1 Reduced Hemoglobin 1.3 Total Hemoglobin 12.8 O2 Delivery Device Ventilator O2 Liters/Min Not Reportable Minute Volume Not Reportable Vent Rate 25 Vent Mode Cmv FiO2 40 Tidal Volume 450 PEEP 10 Peak Inspir Pressure Not Reportable Pressure Support Not Reportable Sodium 138 Potassium 3.8 Chloride 105 Carbon Dioxide 30 Anion Gap 3 L BUN 28 H Creatinine 0.60 L Estim Creat Clear Calc 102 Estimated GFR > 60 Glucose 138 H POC Capillary Glucose 162 H Calcium 8.5 Magnesium 2.2 Total Bilirubin 0.5 AST 25 ALT 12 Alkaline Phosphatase 50 Total Protein 6.0 L Albumin 3.1 L Vancomycin Trough
--- NOTE | 2023-12-31 10:17 | PCNFU ---
Nutrition Follow-Up Complete: Increased protein energy needs related to mechanical ventilation as evidenced by need for full tube feeding Meet estimated nutrition needs - Progressing to goal. TF advanced to 30 ml and will advance 10 ml q 4 hours until goal is reached. Goal: Pt current nutrition is Vital AF 1.2 @ 20 ml/h. Goal rate 60 ml/h to provides 1584 kcal, 99 g protein, 1070 ml free water. Nutrition recommendation: Advance goal rate to 60 ml/h to meet estimated protein energy needs Last recorded weight is 78.69 kg. Bowel Motility: + 1 BM 12/29/23 Labs Reviewed: Hgb 12.0, Hct 35.7, Alb 3.1, BUN 28, Cre 0.6, Glu 138 Meds Noted: Zofran, protonix, novolog, zosyn, fentanyl, versed. Pressors off. Skin: No skin issues Additional Notes: Remains on vent. Tolerating tube feeding. Pt has PEG tube related to throat cancer and gets all nutrition per PEG tube prior to admission. Monitoring tube feeding tolerance, labs, weights, bowel movements, plan of care Follow up Tuesdays and Fridays. Daily in rounds
[2023-12-31 12:04] LABS: Glucose Point of Care 114 mg/dl (65-105)
--- NOTE | 2023-12-31 12:24 | PM.IMPN ---
Progress Note: A&P Assessment and Plan (1) Acute respiratory failure: Code(s): J96.00 - Acute respiratory failure, unspecified whether with hypoxia or hypercapnia Status: Acute Assessment and Plan: acute respiratory failure secondary to aspiration pneumonia CT chest review chest x-ray reviewed. ABG reviewed weaning trial today with possible extubation (2) Septic shock: Code(s): A41.9 - Sepsis, unspecified organism; R65.21 - Severe sepsis with septic shock Status: Acute Assessment and Plan: septic shock secondary to aspiration pneumonia. 12/29 improved with decreased vasopressor requirement. Patient is now off of vasopressin epinephrine drip and only on Levophed. Which will be continued. s/p IVF Continue stress dose hydrocortisone blood and sputum culture sent and pending continue empiric Zosyn. discontinued vancomycin (3) Nausea & vomiting: Code(s): R11.2 - Nausea with vomiting, unspecified Status: Acute Assessment and Plan: currently sedated. Zofran ordered. Start tube feeding (4) Aspiration pneumonia: Qualifiers: Aspiration pneumonia type: unspecified Laterality: unspecified laterality Lung location: unspecified part of lung Qualified Code(s): J69.0 - Pneumonitis due to inhalation of food and vomit Code(s): J69.0 - Pneumonitis due to inhalation of food and vomit Status: Acute Assessment and Plan: see above Plan DVT prophylaxis - Lovenox Stress ulcer prophylaxis - PPI Nutrition - advance tube feeding Code Status - Full Code Subjective Date/time seen: 12/31/23 12:24 Interval history: Intubated. No acute events overnight. Now on tube feeds and on Levophed patient was awake and following commands at the time of this encounter possible extubation today Review of Systems Review of Systems: ROS unobtainable: Yes unobtainable due to endotracheal tube, unobtainable due to medical condition and unobtainable due to mental status Exam Narrative: General: Pt intubated on weaning trial following commands Lungs/Chest: Trachea central Coarse BS B/L, No crackles or wheezing. Cardiac: RRR. Normal S1 S2. No murmurs Circulation: Pedal pulses are intact and symmetrical. Abdomen: Decreased bowel sounds. peg tube in place. Soft. NT. ND. Extremities: No clubbing, cyanosis or edema. Warm : Vanessa in place Neurologic: Follows commands with all 4 extremities . PERRL Objective Data Vital Signs Vital Signs: Vital Signs - 24 hr 12/30/23 13:52 12/30/23 15:30 12/30/23 14:00 Temperature Pulse Rate 74 86 69 Respiratory Rate Blood Pressure 156/93 H Pulse Oximetry 98 Oxygen Delivery Mechanical Ventilation Fraction of Inspired Oxygen 40 12/30/23 14:00 12/30/23 16:00 12/30/23 16:27 Temperature 98.8 F Pulse Rate 83 76 75 Respiratory Rate 22 H Blood Pressure 140/79 101/72 Pulse Oximetry 98 97 Oxygen Delivery Mechanical Ventilation Fraction of Inspired Oxygen 40 12/30/23 16:00 12/30/23 14:00 12/30/23 14:00 Temperature Pulse Rate 65 74 77 Respiratory Rate 25 H 25 H Blood Pressure 104/76 Pulse Oximetry 99 Oxygen Delivery Mechanical Ventilation Fraction of Inspired Oxygen 40 12/30/23 16:00 12/30/23 14:00 12/30/23 16:00 Temperature Pulse Rate 73 73 77 Respiratory Rate 25 H 25 H 25 H Blood Pressure Pulse Oximetry Oxygen Delivery Fraction of Inspired Oxygen 12/30/23 16:00 12/30/23 16:00 12/30/23 16:00 Temperature 98.8 F Pulse Rate 80 80 Respiratory Rate 25 H Blood Pressure 118/67 Pulse Oximetry 97 Oxygen Delivery Fraction of Inspired Oxygen 40 12/30/23 17:56 12/30/23 18:45 12/30/23 18:50 Temperature Pulse Rate 74 85 86 Respiratory Rate Blood Pressure 126/77 156/82 H Pulse Oximetry Oxygen Delivery Fraction of Inspired Oxygen 12/30/23 18:00 12/30/23 18:00 12/30/23 18:00 Temperature Pulse Rate 84 86 84 Respiratory Rate 24 H 25 H Blood Pressure 145/79 H 118/83 Pulse Oximetry 98 Oxygen Delivery Fraction of Inspired Oxygen 12/30/23 18:00 12/30/23 19:44 12/30/23 20:00 Temperature Pulse Rate 85 83 82 Respiratory Rate 25 H 25 H Blood Pressure Pulse Oximetry 98 Oxygen Delivery Mechanical Ventilation Fraction of Inspired Oxygen 40 12/30/23 20:00 12/30/23 19:00 12/30/23 20:00 Temperature Pulse Rate 82 84 80 Respiratory Rate 25 H Blood Pressure 147/80 H 145/80 H Pulse Oximetry Oxygen Delivery Fraction of Inspired Oxygen 12/30/23 20:00 12/30/23 20:00 12/30/23 20:00 Temperature 98.8 F Pulse Rate 80 80 Respiratory Rate 25 H 147 H Blood Pressure 147/80 H Pulse Oximetry 97 Oxygen Delivery Fraction of Inspired Oxygen 40 12/30/23 20:00 12/30/23 20:00 12/30/23 21:20 Temperature Pulse Rate 82 79 Respiratory Rate 25 H Blood Pressure Pulse Oximetry Oxygen Delivery Mechanical Ventilation Fraction of Inspired Oxygen 40 12/30/23 21:20 12/30/23 21:22 12/30/23 20:15 Temperature Pulse Rate 79 70 83 Respiratory Rate 25 H Blood Pressure 90/51 L 154/84 H Pulse Oximetry Oxygen Delivery Fraction of Inspired Oxygen 12/30/23 22:00 12/30/23 22:00 12/30/23 22:00 Temperature Pulse Rate 71 71 71 Respiratory Rate 25 H 25 H Blood Pressure 135/91 H Pulse Oximetry Oxygen Delivery Fraction of Inspired Oxygen 12/30/23 22:00 12/30/23 22:00 12/30/23 23:05 Temperature 98.7 F Pulse Rate 71 71 70 Respiratory Rate 25 H Blood Pressure 137/71 Pulse Oximetry 99 98 Oxygen Delivery Mechanical Ventilation Fraction of Inspired Oxygen 40 12/30/23 23:57 12/31/23 00:12 12/31/23 00:22 Temperature Pulse Rate 87 88 91 Respiratory Rate Blood Pressure 164/88 H 150/79 H 151/77 H Pulse Oximetry Oxygen Delivery Fraction of Inspired Oxygen 12/31/23 00:00 12/31/23 00:00 12/31/23 00:00 Temperature 98.7 F Pulse Rate 83 Respiratory Rate 25 H Blood Pressure 153/81 H Pulse Oximetry 98 Oxygen Delivery Mechanical Ventilation Fraction of Inspired Oxygen 40 40 12/31/23 00:00 12/31/23 00:00 12/31/23 00:00 Temperature Pulse Rate 87 87 87 Respiratory Rate 25 H Blood Pressure 157/85 H Pulse Oximetry Oxygen Delivery Fraction of Inspired Oxygen 12/31/23 02:00 12/31/23 02:00 12/31/23 02:00 Temperature 98.5 F Pulse Rate 68 68 68 Respiratory Rate 25 H Blood Pressure 91/49 L 91/49 L Pulse Oximetry 97 Oxygen Delivery Fraction of Inspired Oxygen 12/31/23 02:00 12/31/23 02:00 12/31/23 00:37 Temperature Pulse Rate 68 68 70 Respiratory Rate 25 H 25 H Blood Pressure 154/83 H Pulse Oximetry Oxygen Delivery Fraction of Inspired Oxygen 12/31/23 02:11 12/31/23 03:00 12/31/23 03:30 Temperature Pulse Rate 66 67 68 Respiratory Rate 25 H 25 H Blood Pressure Pulse Oximetry 97 Oxygen Delivery Mechanical Ventilation Fraction of Inspired Oxygen 40 12/31/23 04:00 12/31/23 04:00 12/31/23 04:00 Temperature 98.5 F Pulse Rate 65 Respiratory Rate 25 H Blood Pressure 103/56 L Pulse Oximetry 99 Oxygen Delivery Mechanical Ventilation Fraction of Inspired Oxygen 40 40 12/31/23 04:00 12/31/23 04:00 12/31/23 04:00 Temperature Pulse Rate 65 65 65 Respiratory Rate 25 H 25 H Blood Pressure 103/56 L Pulse Oximetry Oxygen Delivery Fraction of Inspired Oxygen 12/31/23 05:04 12/31/23 04:00 12/31/23 06:00 Temperature Pulse Rate 65 67 89 Respiratory Rate 25 H Blood Pressure Pulse Oximetry 98 Oxygen Delivery Mechanical Ventilation Fraction of Inspired Oxygen 40 12/31/23 06:00 12/31/23 06:00 12/31/23 06:00 Temperature Pulse Rate 89 89 89 Respiratory Rate 25 H Blood Pressure 164/88 H Pulse Oximetry Oxygen Delivery Fraction of Inspired Oxygen 12/31/23 06:00 12/31/23 06:41 12/31/23 06:43 Temperature 98.4 F Pulse Rate 89 79 81 Respiratory Rate 25 H Blood Pressure 164/88 H 137/71 146/80 H Pulse Oximetry 96 Oxygen Delivery Fraction of Inspired Oxygen 12/31/23 07:35 12/31/23 08:06 12/31/23 08:00 Temperature Pulse Rate 81 69 70 Respiratory Rate 25 H Blood Pressure 134/64 Pulse Oximetry 99 Oxygen Delivery Mechanical Ventilation Fraction of Inspired Oxygen 40 12/31/23 09:30 12/31/23 08:00 12/31/23 08:00 Temperature Pulse Rate 65 70 Respiratory Rate 25 H 25 H Blood Pressure Pulse Oximetry Oxygen Delivery Mechanical Ventilation Fraction of Inspired Oxygen 40 12/31/23 08:00 12/31/23 08:00 12/31/23 08:00 Temperature 98.6 F Pulse Rate 72 70 Respiratory Rate 25 H Blood Pressure 129/70 Pulse Oximetry 99 Oxygen Delivery Fraction of Inspired Oxygen 40 12/31/23 10:44 12/31/23 10:00 12/31/23 10:00 Temperature 98.3 F Pulse Rate 69 74 74 Respiratory Rate 25 H Blood Pressure 130/70 Pulse Oximetry 90 93 Oxygen Delivery Mechanical Ventilation Fraction of Inspired Oxygen 40 12/31/23 10:00 12/31/23 10:00 12/31/23 08:15 Temperature Pulse Rate 74 74 78 Respiratory Rate 25 H 25 H Blood Pressure 125/68 Pulse Oximetry Oxygen Delivery Fraction of Inspired Oxygen 12/31/23 10:00 12/31/23 12:00 12/31/23 12:00 Temperature Pulse Rate 74 75 75 Respiratory Rate 25 H 25 H Blood Pressure 126/83 Pulse Oximetry Oxygen Delivery Fraction of Inspired Oxygen 12/31/23 12:00 Temperature Pulse Rate 75 Respiratory Rate Blood Pressure 129/71 Pulse Oximetry Oxygen Delivery Fraction of Inspired Oxygen Intake/Output Intake/Output: Intake & Output 12/28/23 12/29/23 12/30/23 12/31/23 23:59 23:59 23:59 23:59 Intake Total 4864.8 1791.1 534.9 Output Total 600 1000 350 Balance 4264.8 791.1 184.9 Meds/Results Medications: Active Medications Generic Name Dose Route Start Last Admin Trade Name Freq PRN Reason Stop Dose Admin Acetaminophen 650 mg 12/29/23 05:25 12/29/23 10:41 Acetaminophen 650 Mg Suppository RECTAL 650 mg Q6H PRN Administration Mild Pain (1-3) or Fever Bisacodyl 10 mg 12/30/23 08:09 Bisacodyl 10 Mg Suppository RECTAL QAM PRN Constipation Dextrose 12.5 gm 12/29/23 08:21 Dextrose 50% 25 Gm/50 Ml Syringe IV PUSH PRN PRN Hypoglycemia Protocol Enoxaparin Sodium 40 mg 12/29/23 09:00 12/31/23 08:33 Enoxaparin 40 Mg/0.4 Ml Syringe SUB-Q 40 mg DAILY GELA Administration Glucagon 1 mg 12/29/23 08:21 Glucagon For Inj 1 Mg Vial IM PRN PRN Hypoglycemia Protocol Glucose 15 gm 12/29/23 08:21 Glucose Oral Gel 15 Gm Of Glucse In 37.5 Gm Tube PO PRN PRN Hypoglycemia Protocol Hydrocortisone Sodium Succinate 100 mg 12/29/23 09:00 12/31/23 08:33 Hydrocortisone Sodium Succinate 100 Mg/2 Ml Vial IV PUSH 100 mg Q8H GELA Administration Fentanyl Citrate 2,500 mcg in 250 mls @ 5 mls/hr 12/29/23 04:40 12/31/23 12:00 Fentanyl 2,500 Mcg/Ns 250 Ml IV CONT 50 mcg/hr .Q50H GELA 5 mls/hr Titration Protocol 50 MCG/HR Midazolam HCl 100 mg in 100 mls @ 2 mls/hr 12/29/23 05:20 12/31/23 12:00 Versed 100 Mg/Ns 100 Ml IV CONT 2 mg/hr .Q50H GELA 2 mls/hr Titration Protocol 2 MG/HR Norepinephrine Bitartrate 8 mg in 250 mls @ 0 mls/hr 12/29/23 06:10 12/31/23 12:00 Levophed 8 Mg/D5w 250 Ml IV CONT 0 mcg/min .Q0M GELA 0 mls/hr Titration Protocol 0 MCG/MIN Piperacillin/Tazobactam/Dextrose 3.375 gm in 50 mls @ 100 mls/hr 12/29/23 12:00 12/31/23 12:11 Zosyn 3.375 Gm/Ns 50 Ml IVPB 100 mls/hr Q6H GELA Administration Dextrose 1,000 mls @ 100 mls/hr 12/29/23 08:21 Dextrose 5% 1,000 Ml IVPB PRN PRN Hypoglycemia Protocol Insulin Aspart 2 - 5 units 12/29/23 12:00 12/31/23 12:05 Insulin Aspart (*Bkc) 100 Units/Ml SUB-Q Not Given Q6HR GELA Protocol Multi-Ingred Cream/Lotion/Oil/Oint 1 applic 12/29/23 09:00 12/31/23 08:33 Mineral Oil/White Petrolatum Ointment EACH EYE 1 applic Q12HR GELA Administration Ondansetron HCl 4 mg 12/29/23 05:25 Ondansetron Inj 4 Mg/2 Ml Vial IV PUSH Q4H PRN Nausea Pantoprazole Sodium 40 mg 12/29/23 09:00 12/31/23 08:33 Pantoprazole Sodium Iv 40 Mg Vial IV PUSH 40 mg QAM GELA Administration Polyethylene Glycol 17 gm 12/29/23 09:00 12/31/23 08:33 Polyethylene Glycol 3350 17 Gm Powd.Pack PO 17 gm QAM GELA Administration Sodium Chloride 10 ml 12/29/23 14:00 12/31/23 12:12 Central Line Flush IV PUSH 10 ml Q8HR GELA Administration Sodium Chloride 20 ml 12/29/23 07:06 Central Line Flush IV PUSH PRN PRN after blood draws Sodium Chloride 10 ml 12/29/23 14:00 12/31/23 12:12 Central Line Flush IV PUSH Not Given Q8HR GELA Sodium Chloride 20 ml 12/29/23 07:08 Central Line Flush IV PUSH PRN PRN after blood draws Radiology Results: ITS Impressions Abdomen X-Ray 12/29/23 07:23 Impression: NG tube in satisfactory position. Percutaneous gastrostomy tube also in place. Neck/Chest/Abdomen/Pelvis CT 12/29/23 18:24 IMPRESSION: Evaluation of the neck is limited without contrast. A neck mass is not excluded. Generalized neck edema/induration may be postsurgical or posttreatment in nature. Infection, such as cellulitis not excluded. Endotracheal tube terminates 5.6 cm above the doug, consider advancing by 1.6 cm. Pulmonary findings consistent with aspiration pneumonia. Small bilateral pleural effusions. Mediastinal lymphadenopathy. Rectal wall thickening as can be seen with proctitis. Mild fecal impaction with findings suggestive of constipation. Possible decubitus ulcer over the right buttock. Chest X-Ray 12/31/23 06:17 Impression: Improving bibasilar hazy airspace disease. Probable underlying COPD and/or chronic interstitial disease. Support tubes, as above. Labs Labs: Laboratory Results - last 24 hr 12/30/23 12/30/23 12/30/23 12:05 18:48 23:56 WBC RBC Hgb Hct MCV MCH MCHC RDW Plt Count MPV % Immature Plt Fraction Puncture Site ABG pH ABG pCO2 ABG pO2 ABG PO2/FiO2 Ratio ABG HCO3 ABG O2 Saturation ABG O2 Content ABG Base Excess A-a Gradient Oxyhemoglobin Carboxyhemoglobin Methemoglobin Reduced Hemoglobin Total Hemoglobin O2 Delivery Device O2 Liters/Min Minute Volume Vent Rate Vent Mode FiO2 Tidal Volume PEEP Peak Inspir Pressure Pressure Support Sodium Potassium Chloride Carbon Dioxide Anion Gap BUN Creatinine Estim Creat Clear Calc Estimated GFR Glucose POC Capillary Glucose 139 H 162 H Calcium Magnesium Total Bilirubin AST ALT Alkaline Phosphatase Total Protein Albumin Vancomycin Trough 11.5 12/31/23 12/31/23 12/31/23 04:57 05:18 12:01 WBC 12.0 H RBC 3.58 L Hgb 12.0 L Hct 35.7 L MCV 99.7 MCH 33.5 MCHC 33.6 RDW 14.0 Plt Count 120 L MPV 13.1 H % Immature Plt Fraction 12.0 H Puncture Site Artline ABG pH 7.423 ABG pCO2 43.0 ABG pO2 108.6 H ABG PO2/FiO2 Ratio 2.71 ABG HCO3 27.5 H ABG O2 Saturation 98.0 ABG O2 Content 17.8 ABG Base Excess 2.7 A-a Gradient 127.2 Oxyhemoglobin 98.2 Carboxyhemoglobin 0.4 Methemoglobin 0.1 Reduced Hemoglobin 1.3 Total Hemoglobin 12.8 O2 Delivery Device Ventilator O2 Liters/Min Not Reportable Minute Volume Not Reportable Vent Rate 25 Vent Mode Cmv FiO2 40 Tidal Volume 450 PEEP 10 Peak Inspir Pressure Not Reportable Pressure Support Not Reportable Sodium 138 Potassium 3.8 Chloride 105 Carbon Dioxide 30 Anion Gap 3 L BUN 28 H Creatinine 0.60 L Estim Creat Clear Calc 102 Estimated GFR > 60 Glucose 138 H POC Capillary Glucose 114 H Calcium 8.5 Magnesium 2.2 Total Bilirubin 0.5 AST 25 ALT 12 Alkaline Phosphatase 50 Total Protein 6.0 L Albumin 3.1 L Vancomycin Trough
[2023-12-31 17:39] LABS: Glucose Point of Care 134 mg/dl (65-105)
[2024-01-01] VITALS (40 sets, daily range): BP systolic 83–194; BP diastolic 44–108; PULSE 66–120; RESP 17–35; TEMP 37.2–37.8; O2SAT 90–99
[2024-01-01] MEDS: PIPERACILLN/TAZ 3.375GM/NS50ML 3.375 GM/50 ML BAG IVPB ×4 (00:23→18:21)
[2024-01-01] MEDS: HYDROCORTISONE SODIUM SUCCINATE 100 MG/2 ML VIAL IV PUSH ×2 (00:23→09:03)
[2024-01-01 00:37] LABS: Glucose Point of Care 157 mg/dl (65-105)
[2024-01-01 03:29] LABS: Hematocrit 35.5 % (42.0-52.0); Mean Corpuscular HGB Conc 33.8 g/dl (32-36); Mean Corpuscular Hemoglobin 32.7 pg (26-34); Mean Corpuscular Volume 96.7 fl (80-100); Mean Platelet Volume 12.9 fl (7.4-10.4); Platelet Count Result 123 k/mm3 (150-375); Red Blood Count 3.67 M/mm3 (4.6-6.20); Red Cell Distribution Width 13.8 % (11.5-14.5); White Blood Count 11.3 K/mm3 (4.5-10.0)
[2024-01-01 03:39] LABS: Alanine Aminotransferase 13 U/L (6-50); Albumin Level 3.1 g/dL (3.5-5.1); Alkaline Phosphatase 53 U/L (38-126); Anion Gap 4 mmol/L (4-12); Aspartate Amino Transferase 20 U/L (17-59); Bilirubin,Total 0.7 mg/dL (0.2-1.3); Blood Urea Nitrogen 34 mg/dL (9-20); Calcium 8.4 mg/dL (8.4-10.2); Carbon Dioxide 29 mmol/L (22-30); Chloride 107 mmol/L (98-107); Estimated CRCL calculation 107 ml/min; Estimated Glomerular Filt Rate > 60; Glucose 139 mg/dL (65-110); Magnesium 2.1 mg/dL (1.6-2.3); Potassium 3.4 mmol/L (3.4-5.0); Sodium 140 mmol/L (137-145)
--- NOTE | 2024-01-01 03:41 | PC.NURSE ---
RN at bedside, patient awake and agitated, spouse at bedside with writing board. Discussed plan of care for possible extubation today with patient and spouse. Spouse unable to verbalize understanding of extubation process. Discussed caution with sedation due to possible extubation and minimizing sedation at this time to improve probability for successful extubation during Am shift. No improvement in patient anxiety at this time. Sedation increased.
[2024-01-01] MEDS: CENTRAL LINE FLUSH 10 ML IV PUSH ×6 (05:27→19:26)
[2024-01-01 05:28] LABS: Alveolar/Arterial O2 Gradient 164.5 mmHg; Base Excess ABG 2.8 mEq/l (+/-2.0); Carboxyhemoglobin 0.4 % THb (0-2.0); Fractional Inspired Oxygen 40 %; HCO3 ABG 26.2 mEq/l (22.0-26.0); Methemoglobin ABG 0.2 %THb (0-1.5); Oxygen Content ABG 17.8 %vol (16.0-22.0); Oxygen Saturation ABG 96.5 % (95.0-100.0); Oxyhemoglobin 96.2 % THb (90.0-100.0); PCO2 ABG 36.1 mmHg (35.0-45.0); PO2 ABG 79.2 mmHg (80.0-100.0); PO2 FiO2 Ratio Arterial Blood 1.98 %; Reduced Hemoglobin 3.2 %THb (0-5.0); Total Hemoglobin 13.1 g/dL (12.0-18.0); pH ABG 7.478 (7.350-7.450)
[2024-01-01 05:29] LABS: Arterial Blood Gas PEEP 8 cmH2O; Arterial Blood Gas Vent Mode CMV; Arterial Blood Gas Ventilator rate 25 /MIN; Device VENTILATOR; Site Drawn ARTLINE
[2024-01-01 05:30] LABS: Arterial Blood Gas Tidal Volume 450 ml
[2024-01-01] MEDS: FENTANYL 2,500MCG/NS250ML(*CRX 2,500 MCG/250 ML BAG 10 MCG IV CONT (05:36)
--- NOTE | 2024-01-01 07:23 | PC.NURSE ---
Bed small business consultant added without bed scale zero'd.
[2024-01-01] MEDS: ENOXAPARIN 40 MG/0.4 ML SYRINGE SUB-Q (09:02)
[2024-01-01] MEDS: PANTOPRAZOLE SODIUM IV 40 MG VIAL IV PUSH (09:03)
[2024-01-01] MEDS: polyethylene glycoL 3350 17 GM POWD.PACK PO (09:03)
[2024-01-01 09:13] LABS: Alveolar/Arterial O2 Gradient 92.8 mmHg; Base Excess ABG 4.3 mEq/l (+/-2.0); Fractional Inspired Oxygen 30 %; HCO3 ABG 27.1 mEq/l (22.0-26.0); Oxygen Content ABG 17.3 %vol (16.0-22.0); Oxygen Saturation ABG 96.9 % (95.0-100.0); Oxyhemoglobin 96.7 % THb (90.0-100.0); PCO2 ABG 34.7 mmHg (35.0-45.0); PO2 ABG 80.3 mmHg (80.0-100.0); PO2 FiO2 Ratio Arterial Blood 2.68 %; Total Hemoglobin 12.7 g/dL (12.0-18.0)
--- NOTE | 2024-01-01 10:14 | WPDINTPN ---
Progress Note: A&P Assessment and Plan (1) Acute respiratory failure: Code(s): J96.00 - Acute respiratory failure, unspecified whether with hypoxia or hypercapnia Status: Acute Assessment and Plan: acute respiratory failure secondary to aspiration pneumonia CT chest Reviewed chest x-ray reviewed. ABG reviewed 06/25 PSV SBT done for more than 1/2 hour. RSBI, ABGI and Vitals acceptable. Pt awake and following commands. Will extubate and monitor. continue tube feeds. May need Bipap PRN Lasix IV Treatment of pneumonia as below (2) Septic shock: Code(s): A41.9 - Sepsis, unspecified organism; R65.21 - Severe sepsis with septic shock Status: Acute Assessment and Plan: septic shock secondary to aspiration pneumonia. 12/29 improved with decreased vasopressor requirement. Patient is now off of vasopressin epinephrine drip and only on Levophed. patient weaned off Levophed. Off of all IV fluids. will discontinue stress dose hydrocortisone blood and sputum culture sent and pending continue empiric Zosyn. discontinued vancomycin (3) Nausea & vomiting: Code(s): R11.2 - Nausea with vomiting, unspecified Status: Acute Assessment and Plan: currently sedated. Zofran ordered. continue tube feeding (4) Aspiration pneumonia: Qualifiers: Aspiration pneumonia type: unspecified Laterality: unspecified laterality Lung location: unspecified part of lung Qualified Code(s): J69.0 - Pneumonitis due to inhalation of food and vomit Code(s): J69.0 - Pneumonitis due to inhalation of food and vomit Status: Acute Assessment and Plan: see above (5) Hypertension: Code(s): I10 - Essential (primary) hypertension Status: Acute Assessment and Plan: blood pressure is now elevated. Will give IV Lasix 40 mg. We give p.r.n. labetalol and hydralazine. If stays elevated will add p.o. antihypertensive. Plan DVT prophylaxis - Lovenox Stress ulcer prophylaxis - PPI Nutrition - Continue tube feeding Code Status - Full Code I spoke to patient's at bedside updated her with patient's current status answered all questions. Total Critical Care Time - 31 minutes Due to a high probability of clinically significant, life threatening deterioration, the patient required my highest level of preparedness to intervene emergently and I personally spent this critical care time directly and personally managing the patient. This critical care time included obtaining a history; examining the patient; pulse oximetry; ordering and review of studies; arranging urgent treatment with development of a management plan; evaluation of patient's response to treatment; frequent reassessment; and discussions with other providers. It was exclusive of separately billable procedures and treating other patients and teaching time. Please see Assessment and Plan section and the rest of the note for further information on patient assessment and treatment Subjective Date/time seen: 01/01/24 overnight events reviewed. Patient has been on sedation. Levophed weaned off this morning. He follows commands on loading sedation. Blood pressure is now elevated he is on 40% FiO2. Other vitals are stable. Urine output is on the lower side. Tolerating tube feeds. Review of Systems Review of Systems: ROS unobtainable: Yes unobtainable due to endotracheal tube, unobtainable due to medical condition and unobtainable due to mental status Exam Narrative: General: Pt is sedated, intubated and on mechanical ventilation Lungs/Chest: Trachea central Coarse BS B/L, No crackles or wheezing. Cardiac: RRR. Normal S1 S2. No murmurs Circulation: Pedal pulses are intact and symmetrical. Abdomen: Decreased bowel sounds. peg tube in place. Soft. NT. ND. Extremities: No clubbing, cyanosis or edema. Warm : Vanessa in place Neurologic: Follows commands with all 4 extremities . PERRL Objective Data Vital Signs Vital Signs: Vital Signs - 24 hr 12/31/23 10:44 12/31/23 12:00 12/31/23 12:00 Temperature Pulse Rate 69 75 75 Respiratory Rate 25 H 25 H Blood Pressure Pulse Oximetry 90 Oxygen Delivery Mechanical Ventilation Fraction of Inspired Oxygen 40 12/31/23 12:00 12/31/23 13:19 12/31/23 12:00 Temperature Pulse Rate 75 66 Respiratory Rate Blood Pressure 129/71 82/44 L Pulse Oximetry Oxygen Delivery Mechanical Ventilation Fraction of Inspired Oxygen 40 12/31/23 13:24 12/31/23 12:00 12/31/23 12:00 Temperature Pulse Rate 63 72 Respiratory Rate Blood Pressure 82/46 L Pulse Oximetry Oxygen Delivery Fraction of Inspired Oxygen 40 12/31/23 12:00 12/31/23 14:00 12/31/23 14:34 Temperature 36.8 C Pulse Rate 75 63 61 Respiratory Rate 25 H Blood Pressure 123/84 112/62 127/69 Pulse Oximetry 96 Oxygen Delivery Fraction of Inspired Oxygen 12/31/23 14:00 12/31/23 14:00 12/31/23 14:00 Temperature Pulse Rate 63 63 63 Respiratory Rate 25 H 25 H Blood Pressure Pulse Oximetry Oxygen Delivery Fraction of Inspired Oxygen 12/31/23 14:00 12/31/23 15:02 12/31/23 15:06 Temperature 36.9 C Pulse Rate 63 63 72 Respiratory Rate 25 H Blood Pressure 112/62 135/76 Pulse Oximetry 95 94 Oxygen Delivery Mechanical Ventilation Fraction of Inspired Oxygen 40 12/31/23 16:00 12/31/23 16:00 12/31/23 16:00 Temperature Pulse Rate 76 76 76 Respiratory Rate 25 H 25 H Blood Pressure 118/64 Pulse Oximetry Oxygen Delivery Fraction of Inspired Oxygen 12/31/23 16:00 12/31/23 16:00 12/31/23 16:00 Temperature 36.8 C Pulse Rate 76 Respiratory Rate 25 H Blood Pressure 118/64 Pulse Oximetry 93 Oxygen Delivery Mechanical Ventilation Fraction of Inspired Oxygen 40 40 12/31/23 16:00 12/31/23 16:57 12/31/23 18:00 Temperature Pulse Rate 77 75 72 Respiratory Rate 25 H Blood Pressure Pulse Oximetry 94 Oxygen Delivery Mechanical Ventilation Fraction of Inspired Oxygen 40 12/31/23 18:00 12/31/23 18:00 12/31/23 18:00 Temperature Pulse Rate 72 72 72 Respiratory Rate 25 H Blood Pressure 130/69 Pulse Oximetry Oxygen Delivery Fraction of Inspired Oxygen 12/31/23 18:00 12/31/23 20:00 12/31/23 20:00 Temperature 36.8 C 37.1 C Pulse Rate 72 66 Respiratory Rate 25 H 25 H Blood Pressure 130/69 115/61 Pulse Oximetry 96 96 Oxygen Delivery Fraction of Inspired Oxygen 40 12/31/23 20:00 12/31/23 20:00 12/31/23 20:00 Temperature Pulse Rate 66 66 Respiratory Rate 25 H 25 H Blood Pressure Pulse Oximetry Oxygen Delivery Mechanical Ventilation Fraction of Inspired Oxygen 40 12/31/23 20:00 12/31/23 20:43 12/31/23 22:18 Temperature Pulse Rate 66 69 81 Respiratory Rate 26 H Blood Pressure 115/61 Pulse Oximetry 98 Oxygen Delivery Mechanical Ventilation Fraction of Inspired Oxygen 40 12/31/23 22:00 12/31/23 22:00 12/31/23 22:00 Temperature Pulse Rate 67 67 67 Respiratory Rate 26 H 26 H Blood Pressure 118/62 Pulse Oximetry Oxygen Delivery Fraction of Inspired Oxygen 12/31/23 22:54 12/31/23 23:15 12/31/23 20:00 Temperature Pulse Rate 74 89 63 Respiratory Rate 26 H Blood Pressure Pulse Oximetry 95 Oxygen Delivery Mechanical Ventilation Fraction of Inspired Oxygen 40 12/31/23 22:00 12/31/23 22:00 12/31/23 23:30 Temperature 37.1 C Pulse Rate 66 66 75 Respiratory Rate 25 H 25 H Blood Pressure 119/63 Pulse Oximetry 96 Oxygen Delivery Fraction of Inspired Oxygen 01/01/24 00:00 01/01/24 00:00 01/01/24 00:00 Temperature 37.2 C Pulse Rate 68 69 Respiratory Rate 25 H 25 H Blood Pressure 125/65 Pulse Oximetry 96 Oxygen Delivery Fraction of Inspired Oxygen 40 01/01/24 00:00 01/01/24 00:00 01/01/24 00:00 Temperature Pulse Rate 69 69 68 Respiratory Rate 25 H Blood Pressure 125/65 Pulse Oximetry Oxygen Delivery Fraction of Inspired Oxygen 01/01/24 00:00 01/01/24 01:49 01/01/24 02:00 Temperature Pulse Rate 87 94 Respiratory Rate 25 H Blood Pressure Pulse Oximetry 96 Oxygen Delivery Mechanical Ventilation Mechanical Ventilation Fraction of Inspired Oxygen 40 40 01/01/24 02:00 01/01/24 02:00 01/01/24 03:31 Temperature Pulse Rate 94 94 94 Respiratory Rate 25 H 35 H Blood Pressure 170/90 H Pulse Oximetry Oxygen Delivery Fraction of Inspired Oxygen 01/01/24 02:00 01/01/24 02:00 01/01/24 04:00 Temperature 37.3 C 37.4 C Pulse Rate 96 96 89 Respiratory Rate 25 H 25 H Blood Pressure 169/92 H 123/67 Pulse Oximetry 96 93 Oxygen Delivery Fraction of Inspired Oxygen 01/01/24 04:00 01/01/24 04:00 01/01/24 04:00 Temperature Pulse Rate 89 89 Respiratory Rate 25 H 25 H Blood Pressure Pulse Oximetry Oxygen Delivery Fraction of Inspired Oxygen 40 01/01/24 04:00 01/01/24 05:36 01/01/24 05:36 Temperature Pulse Rate 89 105 H 105 H Respiratory Rate 25 H 25 H Blood Pressure 123/67 Pulse Oximetry Oxygen Delivery Fraction of Inspired Oxygen 01/01/24 04:30 01/01/24 05:45 01/01/24 05:53 Temperature Pulse Rate 119 H 94 90 Respiratory Rate 25 H 25 H Blood Pressure 83/44 L Pulse Oximetry Oxygen Delivery Fraction of Inspired Oxygen 01/01/24 05:32 01/01/24 06:36 01/01/24 06:38 Temperature Pulse Rate 66 78 78 Respiratory Rate 25 H Blood Pressure 86/48 L Pulse Oximetry 93 Oxygen Delivery Mechanical Ventilation Fraction of Inspired Oxygen 40 01/01/24 06:10 01/01/24 06:00 01/01/24 06:00 Temperature Pulse Rate 119 H 88 88 Respiratory Rate 25 H Blood Pressure 175/91 H 100/55 L Pulse Oximetry Oxygen Delivery Fraction of Inspired Oxygen 01/01/24 06:00 01/01/24 04:00 01/01/24 06:00 Temperature 37.8 C H Pulse Rate 88 88 Respiratory Rate 25 H 25 H Blood Pressure 100/55 L Pulse Oximetry 93 Oxygen Delivery Mechanical Ventilation Fraction of Inspired Oxygen 40 01/01/24 06:15 01/01/24 06:24 01/01/24 04:00 Temperature Pulse Rate 120 H 95 93 Respiratory Rate Blood Pressure 172/92 H 85/46 L Pulse Oximetry Oxygen Delivery Fraction of Inspired Oxygen 01/01/24 06:00 01/01/24 06:45 01/01/24 07:23 Temperature Pulse Rate 88 78 86 Respiratory Rate 25 H 25 H Blood Pressure Pulse Oximetry Oxygen Delivery Fraction of Inspired Oxygen 01/01/24 07:47 01/01/24 07:48 01/01/24 07:49 Temperature Pulse Rate 75 75 77 Respiratory Rate 25 H 25 H Blood Pressure 128/66 Pulse Oximetry Oxygen Delivery Fraction of Inspired Oxygen 01/01/24 07:53 01/01/24 08:27 Temperature Pulse Rate 85 105 H Respiratory Rate 25 H Blood Pressure 179/95 H Pulse Oximetry Oxygen Delivery Fraction of Inspired Oxygen Intake/Output Intake/Output: Intake & Output 12/29/23 12/30/23 12/31/23 01/01/24 23:59 23:59 23:59 23:59 Intake Total 4864.8 1791.1 1273.6 975.3 Output Total 600 1000 700 350 Balance 4264.8 791.1 573.6 625.3 Meds/Results Medications: Active Medications Generic Name Dose Route Start Last Admin Trade Name Freq PRN Reason Stop Dose Admin Acetaminophen 650 mg 12/29/23 05:25 12/29/23 10:41 Acetaminophen 650 Mg Suppository RECTAL 650 mg Q6H PRN Administration Mild Pain (1-3) or Fever Bisacodyl 10 mg 12/30/23 08:09 Bisacodyl 10 Mg Suppository RECTAL QAM PRN Constipation Dextrose 12.5 gm 12/29/23 08:21 Dextrose 50% 25 Gm/50 Ml Syringe IV PUSH PRN PRN Hypoglycemia Protocol Enoxaparin Sodium 40 mg 12/29/23 09:00 01/01/24 09:02 Enoxaparin 40 Mg/0.4 Ml Syringe SUB-Q 40 mg DAILY GELA Administration Furosemide 40 mg 01/01/24 10:13 Furosemide Inj 40 Mg/4 Ml Vial IV PUSH 01/01/24 10:14 ONCE ONE Glucagon 1 mg 12/29/23 08:21 Glucagon For Inj 1 Mg Vial IM PRN PRN Hypoglycemia Protocol Glucose 15 gm 12/29/23 08:21 Glucose Oral Gel 15 Gm Of Glucse In 37.5 Gm Tube PO PRN PRN Hypoglycemia Protocol Hydralazine HCl 20 mg 01/01/24 10:09 Hydralazine Hcl 20 Mg/Ml Vial IV PUSH Q4H PRN SBP more than 160 Hydrocortisone Sodium Succinate 100 mg 12/29/23 09:00 01/01/24 09:03 Hydrocortisone Sodium Succinate 100 Mg/2 Ml Vial IV PUSH 100 mg Q8H GELA Administration Fentanyl Citrate 2,500 mcg in 250 mls @ 0 mls/hr 12/29/23 04:40 01/01/24 07:53 Fentanyl 2,500 Mcg/Ns 250 Ml IV CONT 0 mcg/hr .Q0M GELA 0 mls/hr Titration Protocol Midazolam HCl 100 mg in 100 mls @ 0 mls/hr 12/29/23 05:20 01/01/24 07:49 Versed 100 Mg/Ns 100 Ml IV CONT 0 mg/hr .Q0M GELA 0 mls/hr Titration Protocol 0 MG/HR Norepinephrine Bitartrate 8 mg in 250 mls @ 0 mls/hr 12/29/23 06:10 01/01/24 08:27 Levophed 8 Mg/D5w 250 Ml IV CONT 0 mcg/min .Q0M GELA 0 mls/hr Titration Protocol Piperacillin/Tazobactam/Dextrose 3.375 gm in 50 mls @ 100 mls/hr 12/29/23 12:00 01/01/24 05:56 Zosyn 3.375 Gm/Ns 50 Ml IVPB Infused Q6H GELA Infusion Dextrose 1,000 mls @ 100 mls/hr 12/29/23 08:21 Dextrose 5% 1,000 Ml IVPB PRN PRN Hypoglycemia Protocol Insulin Aspart 2 - 5 units 12/29/23 12:00 01/01/24 05:27 Insulin Aspart (*Bkc) 100 Units/Ml SUB-Q Not Given Q6HR GELA Protocol Labetalol HCl 20 mg 01/01/24 10:09 Labetalol Hcl Inj 100 Mg/20 Ml Vial IV PUSH Q4H PRN SBP > 160 and HR> 60 -1st choice Multi-Ingred Cream/Lotion/Oil/Oint 1 applic 12/29/23 09:00 01/01/24 09:03 Mineral Oil/White Petrolatum Ointment EACH EYE Not Given Q12HR GELA Ondansetron HCl 4 mg 12/29/23 05:25 Ondansetron Inj 4 Mg/2 Ml Vial IV PUSH Q4H PRN Nausea Pantoprazole Sodium 40 mg 12/29/23 09:00 01/01/24 09:03 Pantoprazole Sodium Iv 40 Mg Vial IV PUSH 40 mg QAM GELA Administration Polyethylene Glycol 17 gm 12/29/23 09:00 01/01/24 09:03 Polyethylene Glycol 3350 17 Gm Powd.Pack PO 17 gm QAM GELA Administration Sodium Chloride 10 ml 12/29/23 14:00 01/01/24 05:27 Central Line Flush IV PUSH 10 ml Q8HR GELA Administration Sodium Chloride 20 ml 12/29/23 07:06 Central Line Flush IV PUSH PRN PRN after blood draws Sodium Chloride 10 ml 12/29/23 14:00 01/01/24 05:27 Central Line Flush IV PUSH 10 ml Q8HR GELA Administration Sodium Chloride 20 ml 12/29/23 07:08 Central Line Flush IV PUSH PRN PRN after blood draws Radiology Results: ITS Impressions Abdomen X-Ray 12/29/23 07:23 Impression: NG tube in satisfactory position. Percutaneous gastrostomy tube also in place. Neck/Chest/Abdomen/Pelvis CT 12/29/23 18:24 IMPRESSION: Evaluation of the neck is limited without contrast. A neck mass is not excluded. Generalized neck edema/induration may be postsurgical or posttreatment in nature. Infection, such as cellulitis not excluded. Endotracheal tube terminates 5.6 cm above the doug, consider advancing by 1.6 cm. Pulmonary findings consistent with aspiration pneumonia. Small bilateral pleural effusions. Mediastinal lymphadenopathy. Rectal wall thickening as can be seen with proctitis. Mild fecal impaction with findings suggestive of constipation. Possible decubitus ulcer over the right buttock. Chest X-Ray 01/01/24 06:40 Impression: Probable mild to moderate bibasilar pulmonary edema. Correlate clinically for pneumonia. Probable underlying COPD. Support tubes, as above. Labs Labs: Laboratory Results - last 24 hr 12/31/23 12/31/23 01/01/24 12:01 17:29 00:21 WBC RBC Hgb Hct MCV MCH MCHC RDW Plt Count MPV Puncture Site ABG pH ABG pCO2 ABG pO2 ABG PO2/FiO2 Ratio ABG HCO3 ABG O2 Saturation ABG O2 Content ABG Base Excess A-a Gradient Oxyhemoglobin Carboxyhemoglobin Methemoglobin Reduced Hemoglobin Total Hemoglobin O2 Delivery Device O2 Liters/Min Minute Volume Vent Rate Vent Mode FiO2 Tidal Volume PEEP Peak Inspir Pressure Pressure Support Sodium Potassium Chloride Carbon Dioxide Anion Gap BUN Creatinine Estim Creat Clear Calc Estimated GFR Glucose POC Capillary Glucose 114 H 134 H 157 H Calcium Magnesium Total Bilirubin AST ALT Alkaline Phosphatase Total Protein Albumin 01/01/24 01/01/24 03:18 05:20 WBC 11.3 H RBC 3.67 L Hgb 12.0 L Hct 35.5 L MCV 96.7 MCH 32.7 MCHC 33.8 RDW 13.8 Plt Count 123 L MPV 12.9 H Puncture Site Artline ABG pH 7.478 H ABG pCO2 36.1 ABG pO2 79.2 L ABG PO2/FiO2 Ratio 1.98 ABG HCO3 26.2 H ABG O2 Saturation 96.5 ABG O2 Content 17.8 ABG Base Excess 2.8 A-a Gradient 164.5 Oxyhemoglobin 96.2 Carboxyhemoglobin 0.4 Methemoglobin 0.2 Reduced Hemoglobin 3.2 Total Hemoglobin 13.1 O2 Delivery Device Ventilator O2 Liters/Min Not Reportable Minute Volume Not Reportable Vent Rate 25 Vent Mode Cmv FiO2 40 Tidal Volume 450 PEEP 8 Peak Inspir Pressure Not Reportable Pressure Support Not Reportable Sodium 140 Potassium 3.4 Chloride 107 Carbon Dioxide 29 Anion Gap 4 BUN 34 H Creatinine 0.60 L Estim Creat Clear Calc 107 Estimated GFR > 60 Glucose 139 H POC Capillary Glucose Calcium 8.4 Magnesium 2.1 Total Bilirubin 0.7 AST 20 ALT 13 Alkaline Phosphatase 53 Total Protein 6.0 L Albumin 3.1 L
[2024-01-01] MEDS: FUROSEMIDE INJ 40 MG/4 ML VIAL IV PUSH (10:27)
[2024-01-01] MEDS: LABETALOL HCL INJ 100 MG/20 ML VIAL 20 MG IV PUSH ×2 (10:28→19:25)
[2024-01-01 10:30] LABS: Site Drawn ARTLINE; pH ABG 7.511 (7.350-7.450)
[2024-01-01 10:31] LABS: Arterial Blood Gas PEEP 8 cmH2O; Arterial Blood Gas Pressure Support 5 cmH2O; Arterial Blood Gas Vent Mode SPONTANEOUS; Device VENTILATOR
[2024-01-01 11:50] LABS: Glucose Point of Care 159 mg/dl (65-105)
--- NOTE | 2024-01-01 12:20 | PCFNICU ---
ICU Rounding Note: Pt current nutrition is Vital AF 1.2 at 60 ml/hr. Last recorded weight is 85.1 kg, up from 76 kg 12/30 Bowel Motility: +BM reported 12/28 Labs Reviewed: Cr 0.6, BUN 34, Alb 3.1 Meds Noted: Miralax, Lovenox, Protonix, Zosyn. Skin: WNL Additional Notes: Patient has been extubated today. Tube feedings remain of Vital AF 1.2 at 60 ml/hr through PEG. Flush 30 ml q 4 hours. Spoke with patient and today regarding home tube feedings. Nutren 2.0 5 cans daily is what he uses at home. Discussed with It Compliance Analyst today and he would like to continue current tube feedings orders. Following daily in ICU rounds. Monitoring tube feeding tolerance, labs, weights, bowel movements, plan of care Follow up Tuesdays and Fridays.
--- NOTE | 2024-01-01 13:17 | P.PNIM_ITS ---
Progress Note: A&P Assessment and Plan (1) Acute respiratory failure: Code(s): J96.00 - Acute respiratory failure, unspecified whether with hypoxia or hypercapnia Status: Acute Assessment and Plan: acute respiratory failure secondary to aspiration pneumonia CT chest Reviewed chest x-ray reviewed. ABG reviewed extubated today 01/01/24 Lasix IV discontinued Treatment of pneumonia as below (2) Septic shock: Code(s): A41.9 - Sepsis, unspecified organism; R65.21 - Severe sepsis with septic shock Status: Acute Assessment and Plan: septic shock secondary to aspiration pneumonia. 12/29 improved with decreased vasopressor requirement. Patient is now off of vasopressin epinephrine drip and only on Levophed. patient weaned off Levophed. Off of all IV fluids. s/p stress dose hydrocortisone blood and sputum culture sent and pending continue empiric Zosyn. discontinued vancomycin (3) Nausea & vomiting: Code(s): R11.2 - Nausea with vomiting, unspecified Status: Acute Assessment and Plan: currently sedated. Zofran ordered. continue tube feeding (4) Aspiration pneumonia: Qualifiers: Aspiration pneumonia type: unspecified Laterality: unspecified late rality Lung location: unspecified part of lung Qualified Code(s): J69.0 - Pneumonitis due to inhalation of food and vomit Code(s): J69.0 - Pneumonitis due to inhalation of food and vomit Status: Acute Assessment and Plan: see above (5) Hypertension: Code(s): I10 - Essential (primary) hypertension Status: Acute Assessment and Plan: blood pressure is now elevated. Will give IV Lasix 40 mg. We give p.r.n. labetalol and hydralazine. If stays elevated will add p.o. antihypertensive. Plan DVT prophylaxis - Lovenox Stress ulcer prophylaxis - PPI Nutrition - advance to pO diet as tolerated Code Status - Full Code Subjective Date/time seen: 01/01/24 13:17 Interval history: extubated today continue Abx PT/OT consulted Review of Systems Review of Systems: ROS unobtainable: Yes unobtainable due to endotracheal tube, unobtainable due to medical condition and unobtainable due to mental status Exam Narrative: General: Pt is sedated, intubated and on mechanical ventilation Lungs/Chest: Trachea central Coarse BS B/L, No crackles or wheezing. Cardiac: RRR. Normal S1 S2. No murmurs Circulation: Pedal pulses are intact and symmetrical. Abdomen: Decreased bowel sounds. peg tube in place. Soft. NT. ND. Extremities: No clubbing, cyanosis or edema. Warm : Vanessa in place Neurologic: Follows commands with all 4 extremities . PERRL Objective Data Vital Signs Vital Signs: Vital Signs - 24 hr 12/31/23 13:19 12/31/23 13:24 12/31/23 14:00 Temperature Pulse Rate 66 63 63 Respiratory Rate Blood Pressure 82/44 L 82/46 L 112/62 Pulse Oximetry Oxygen Delivery Oxygen Flow Rate Fraction of Inspired Oxygen 12/31/23 14:34 12/31/23 14:00 12/31/23 14:00 Temperature Pulse Rate 61 63 63 Respiratory Rate 25 H 25 H Blood Pressure 127/69 Pulse Oximetry Oxygen Delivery Oxygen Flow Rate Fraction of Inspired Oxygen 12/31/23 14:00 12/31/23 14:00 12/31/23 15:02 Temperature 98.4 F Pulse Rate 63 63 63 Respiratory Rate 25 H Blood Pressure 112/62 Pulse Oximetry 95 94 Oxygen Delivery Mechanical Ventilation Oxygen Flow Rate Fraction of Inspired Oxygen 40 12/31/23 15:06 12/31/23 16:00 12/31/23 16:00 Temperature Pulse Rate 72 76 76 Respiratory Rate 25 H 25 H Blood Pressure 135/76 Pulse Oximetry Oxygen Delivery Oxygen Flow Rate Fraction of Inspired Oxygen 12/31/23 16:00 12/31/23 16:00 12/31/23 16:00 Temperature Pulse Rate 76 Respiratory Rate Blood Pressure 118/64 Pulse Oximetry Oxygen Delivery Mechanical Ventilation Oxygen Flow Rate Fraction of Inspired Oxygen 40 40 12/31/23 16:00 12/31/23 16:00 12/31/23 16:57 Temperature 98.2 F Pulse Rate 76 77 75 Respiratory Rate 25 H Blood Pressure 118/64 Pulse Oximetry 93 94 Oxygen Delivery Mechanical Ventilation Oxygen Flow Rate Fraction of Inspired Oxygen 40 12/31/23 18:00 12/31/23 18:00 12/31/23 18:00 Temperature Pulse Rate 72 72 72 Respiratory Rate 25 H 25 H Blood Pressure 130/69 Pulse Oximetry Oxygen Delivery Oxygen Flow Rate Fraction of Inspired Oxygen 12/31/23 18:00 12/31/23 18:00 12/31/23 20:00 Temperature 98.3 F Pulse Rate 72 72 Respiratory Rate 25 H Blood Pressure 130/69 Pulse Oximetry 96 Oxygen Delivery Oxygen Flow Rate Fraction of Inspired Oxygen 40 12/31/23 20:00 12/31/23 20:00 12/31/23 20:00 Temperature 98.7 F Pulse Rate 66 66 Respiratory Rate 25 H 25 H Blood Pressure 115/61 Pulse Oximetry 96 Oxygen Delivery Mechanical Ventilation Oxygen Flow Rate Fraction of Inspired Oxygen 40 12/31/23 20:00 12/31/23 20:00 12/31/23 20:43 Temperature Pulse Rate 66 66 69 Respiratory Rate 25 H Blood Pressure 115/61 Pulse Oximetry 98 Oxygen Delivery Mechanical Ventilation Oxygen Flow Rate Fraction of Inspired Oxygen 40 12/31/23 22:18 12/31/23 22:00 12/31/23 22:00 Temperature Pulse Rate 81 67 67 Respiratory Rate 26 H 26 H 26 H Blood Pressure Pulse Oximetry Oxygen Delivery Oxygen Flow Rate Fraction of Inspired Oxygen 12/31/23 22:00 12/31/23 22:54 12/31/23 23:15 Temperature Pulse Rate 67 74 89 Respiratory Rate 26 H Blood Pressure 118/62 Pulse Oximetry 95 Oxygen Delivery Mechanical Ventilation Oxygen Flow Rate Fraction of Inspired Oxygen 40 12/31/23 20:00 12/31/23 22:00 12/31/23 22:00 Temperature 98.7 F Pulse Rate 63 66 66 Respiratory Rate 25 H Blood Pressure 119/63 Pulse Oximetry 96 Oxygen Delivery Oxygen Flow Rate Fraction of Inspired Oxygen 12/31/23 23:30 01/01/24 00:00 01/01/24 00:00 Temperature 98.9 F Pulse Rate 75 68 Respiratory Rate 25 H 25 H Blood Pressure 125/65 Pulse Oximetry 96 Oxygen Delivery Oxygen Flow Rate Fraction of Inspired Oxygen 40 01/01/24 00:00 01/01/24 00:00 01/01/24 00:00 Temperature Pulse Rate 69 69 69 Respiratory Rate 25 H 25 H Blood Pressure 125/65 Pulse Oximetry Oxygen Delivery Oxygen Flow Rate Fraction of Inspired Oxygen 01/01/24 00:00 01/01/24 00:00 01/01/24 01:49 Temperature Pulse Rate 68 87 Respiratory Rate Blood Pressure Pulse Oximetry 96 Oxygen Delivery Mechanical Ventilation Mechanical Ventilation Oxygen Flow Rate Fraction of Inspired Oxygen 40 40 01/01/24 02:00 01/01/24 02:00 01/01/24 02:00 Temperature Pulse Rate 94 94 94 Respiratory Rate 25 H 25 H Blood Pressure 170/90 H Pulse Oximetry Oxygen Delivery Oxygen Flow Rate Fraction of Inspired Oxygen 01/01/24 03:31 01/01/24 02:00 01/01/24 02:00 Temperature 99.1 F Pulse Rate 94 96 96 Respiratory Rate 35 H 25 H Blood Pressure 169/92 H Pulse Oximetry 96 Oxygen Delivery Oxygen Flow Rate Fraction of Inspired Oxygen 01/01/24 04:00 01/01/24 04:00 01/01/24 04:00 Temperature 99.4 F Pulse Rate 89 89 Respiratory Rate 25 H 25 H Blood Pressure 123/67 Pulse Oximetry 93 Oxygen Delivery Oxygen Flow Rate Fraction of Inspired Oxygen 40 01/01/24 04:00 01/01/24 04:00 01/01/24 05:36 Temperature Pulse Rate 89 89 105 H Respiratory Rate 25 H 25 H Blood Pressure 123/67 Pulse Oximetry Oxygen Delivery Oxygen Flow Rate Fraction of Inspired Oxygen 01/01/24 05:36 01/01/24 04:30 01/01/24 05:45 Temperature Pulse Rate 105 H 119 H 94 Respiratory Rate 25 H 25 H 25 H Blood Pressure Pulse Oximetry Oxygen Delivery Oxygen Flow Rate Fraction of Inspired Oxygen 01/01/24 05:53 01/01/24 05:32 01/01/24 06:36 Temperature Pulse Rate 90 66 78 Respiratory Rate 25 H Blood Pressure 83/44 L Pulse Oximetry 93 Oxygen Delivery Mechanical Ventilation Oxygen Flow Rate Fraction of Inspired Oxygen 40 01/01/24 06:38 01/01/24 06:10 01/01/24 06:00 Temperature Pulse Rate 78 119 H 88 Respiratory Rate Blood Pressure 86/48 L 175/91 H 100/55 L Pulse Oximetry Oxygen Delivery Oxygen Flow Rate Fraction of Inspired Oxygen 01/01/24 06:00 01/01/24 06:00 01/01/24 04:00 Temperature Pulse Rate 88 88 Respiratory Rate 25 H 25 H Blood Pressure Pulse Oximetry Oxygen Delivery Mechanical Ventilation Oxygen Flow Rate Fraction of Inspired Oxygen 40 01/01/24 06:00 01/01/24 06:15 01/01/24 06:24 Temperature 100.0 F H Pulse Rate 88 120 H 95 Respiratory Rate 25 H Blood Pressure 100/55 L 172/92 H 85/46 L Pulse Oximetry 93 Oxygen Delivery Oxygen Flow Rate Fraction of Inspired Oxygen 01/01/24 04:00 01/01/24 06:00 01/01/24 06:45 Temperature Pulse Rate 93 88 78 Respiratory Rate 25 H Blood Pressure Pulse Oximetry Oxygen Delivery Oxygen Flow Rate Fraction of Inspired Oxygen 01/01/24 07:23 01/01/24 07:47 01/01/24 07:48 Temperature Pulse Rate 86 75 75 Respiratory Rate 25 H 25 H Blood Pressure 128/66 Pulse Oximetry Oxygen Delivery Oxygen Flow Rate Fraction of Inspired Oxygen 01/01/24 07:49 01/01/24 07:53 01/01/24 08:27 Temperature Pulse Rate 77 85 105 H Respiratory Rate 25 H 25 H Blood Pressure 179/95 H Pulse Oximetry Oxygen Delivery Oxygen Flow Rate Fraction of Inspired Oxygen 01/01/24 10:15 01/01/24 08:00 01/01/24 10:00 Temperature 99.5 F 99.0 F Pulse Rate 83 105 H Respiratory Rate 25 H 18 Blood Pressure 136/91 H 194/108 H Pulse Oximetry 92 96 90 Oxygen Delivery High Flow Nasal Cannula Oxygen Flow Rate 10 Fraction of Inspired Oxygen 01/01/24 10:28 01/01/24 09:10 01/01/24 08:00 Temperature Pulse Rate 104 H 101 H 80 Respiratory Rate 18 Blood Pressure Pulse Oximetry 93 94 Oxygen Delivery Mechanical Ventilation Mechanical Ventilation Oxygen Flow Rate Fraction of Inspired Oxygen 30 30 01/01/24 08:00 01/01/24 08:00 01/01/24 10:00 Temperature Pulse Rate 80 80 Respiratory Rate Blood Pressure Pulse Oximetry Oxygen Delivery Oxygen Flow Rate Fraction of Inspired Oxygen 30 01/01/24 10:46 01/01/24 08:11 01/01/24 08:22 Temperature Pulse Rate 103 H Respiratory Rate Blood Pressure Pulse Oximetry 93 96 93 Oxygen Delivery Non-Rebreather Mask Mechanical Ventilation Mechanical Ventilation Oxygen Flow Rate 15 Fraction of Inspired Oxygen 100 40 30 01/01/24 12:00 Temperature 99.6 F Pulse Rate 93 Respiratory Rate 22 H Blood Pressure 148/78 H Pulse Oximetry 97 Oxygen Delivery Oxygen Flow Rate Fraction of Inspired Oxygen Intake/Output Intake/Output: Intake & Output 12/29/23 12/30/23 12/31/23 01/01/24 23:59 23:59 23:59 23:59 Intake Total 4864.8 1791.1 1273.6 975.3 Output Total 600 9981 690 9294 Balance 4264.8 791.1 573.6 -1674.7 Meds/Results Medications: Active Medications Generic Name Dose Route Start Last Admin Trade Name Freq PRN Reason Stop Dose Admin Acetaminophen 650 mg 12/29/23 05:25 12/29/23 10:41 Acetaminophen 650 Mg Suppository RECTAL 650 mg Q6H PRN Administration Mild Pain (1-3) or Fever Bisacodyl 10 mg 12/30/23 08:09 Bisacodyl 10 Mg Suppository RECTAL QAM PRN Constipation Dextrose 12.5 gm 12/29/23 08:21 Dextrose 50% 25 Gm/50 Ml Syringe IV PUSH PRN PRN Hypoglycemia Protocol Enoxaparin Sodium 40 mg 12/29/23 09:00 01/01/24 09:02 Enoxaparin 40 Mg/0.4 Ml Syringe SUB-Q 40 mg DAILY GELA Administration Glucagon 1 mg 12/29/23 08:21 Glucagon For Inj 1 Mg Vial IM PRN PRN Hypoglycemia Protocol Glucose 15 gm 12/29/23 08:21 Glucose Oral Gel 15 Gm Of Glucse In 37.5 Gm Tube PO PRN PRN Hypoglycemia Protocol Hydralazine HCl 20 mg 01/01/24 10:09 Hydralazine Hcl 20 Mg/Ml Vial IV PUSH Q4H PRN SBP more than 160 Fentanyl Citrate 2,500 mcg in 250 mls @ 0 mls/hr 12/29/23 04:40 01/01/24 07:53 Fentanyl 2,500 Mcg/Ns 250 Ml IV CONT 0 mcg/hr .Q0M GELA 0 mls/hr Titration Protocol Midazolam HCl 100 mg in 100 mls @ 0 mls/hr 12/29/23 05:20 01/01/24 07:49 Versed 100 Mg/Ns 100 Ml IV CONT 0 mg/hr .Q0M GELA 0 mls/hr Titration Protocol 0 MG/HR Norepinephrine Bitartrate 8 mg in 250 mls @ 0 mls/hr 12/29/23 06:10 01/01/24 08:27 Levophed 8 Mg/D5w 250 Ml IV CONT 0 mcg/min .Q0M GELA 0 mls/hr Titration Protocol Piperacillin/Tazobactam/Dextrose 3.375 gm in 50 mls @ 100 mls/hr 12/29/23 12:00 01/01/24 11:57 Zosyn 3.375 Gm/Ns 50 Ml IVPB 100 mls/hr Q6H GLEA Administration Dextrose 1,000 mls @ 100 mls/hr 12/29/23 08:21 Dextrose 5% 1,000 Ml IVPB PRN PRN Hypoglycemia Protocol Insulin Aspart 2 - 5 units 12/29/23 12:00 01/01/24 11:58 Insulin Aspart (*Bkc) 100 Units/Ml SUB-Q Not Given Q6HR GELA Protocol Labetalol HCl 20 mg 01/01/24 10:09 01/01/24 10:28 Labetalol Hcl Inj 100 Mg/20 Ml Vial IV PUSH 20 mg Q4H PRN Administration SBP > 160 and HR> 60 -1st choice Multi-Ingred Cream/Lotion/Oil/Oint 1 applic 12/29/23 09:00 01/01/24 09:03 Mineral Oil/White Petrolatum Ointment EACH EYE Not Given Q12HR GELA Ondansetron HCl 4 mg 12/29/23 05:25 Ondansetron Inj 4 Mg/2 Ml Vial IV PUSH Q4H PRN Nausea Pantoprazole Sodium 40 mg 12/29/23 09:00 01/01/24 09:03 Pantoprazole Sodium Iv 40 Mg Vial IV PUSH 40 mg QAM GELA Administration Polyethylene Glycol 17 gm 12/29/23 09:00 01/01/24 09:03 Polyethylene Glycol 3350 17 Gm Powd.Pack PO 17 gm QAM GELA Administration Sodium Chloride 10 ml 12/29/23 14:00 01/01/24 05:27 Central Line Flush IV PUSH 10 ml Q8HR GELA Administration Sodium Chloride 20 ml 12/29/23 07:06 Central Line Flush IV PUSH PRN PRN after blood draws Sodium Chloride 10 ml 12/29/23 14:00 01/01/24 05:27 Central Line Flush IV PUSH 10 ml Q8HR GELA Administration Sodium Chloride 20 ml 12/29/23 07:08 Central Line Flush IV PUSH PRN PRN after blood draws Radiology Results: ITS Impressions Abdomen X-Ray 12/29/23 07:23 Impression: NG tube in satisfactory position. Percutaneous gastrostomy tube also in place. Neck/Chest/Abdomen/Pelvis CT 12/29/23 18:24 IMPRESSION: Evaluation of the neck is limited without contrast. A neck mass is not excluded. Generalized neck edema/induration may be postsurgical or posttreatment in nature. Infection, such as cellulitis not excluded. Endotracheal tube terminates 5.6 cm above the doug, consider advancing by 1.6 cm. Pulmonary findings consistent with aspiration pneumonia. Small bilateral pleural effusions. Mediastinal lymphadenopathy. Rectal wall thickening as can be seen with proctitis. Mild fecal impaction with findings suggestive of constipation. Possible decubitus ulcer over the right buttock. Chest X-Ray 01/01/24 06:40 Impression: Probable mild to moderate bibasilar pulmonary edema. Correlate clinically for pneumonia. Probable underlying COPD. Support tubes, as above. Labs Labs: Laboratory Results - last 24 hr 12/31/23 01/01/24 01/01/24 17:29 00:21 03:18 WBC 11.3 H RBC 3.67 L Hgb 12.0 L Hct 35.5 L MCV 96.7 MCH 32.7 MCHC 33.8 RDW 13.8 Plt Count 123 L MPV 12.9 H Puncture Site ABG pH ABG pCO2 ABG pO2 ABG PO2/FiO2 Ratio ABG HCO3 ABG O2 Saturation ABG O2 Content ABG Base Excess A-a Gradient Oxyhemoglobin Carboxyhemoglobin Methemoglobin Reduced Hemoglobin Total Hemoglobin O2 Delivery Device O2 Liters/Min Minute Volume Vent Rate Vent Mode FiO2 Tidal Volume PEEP Peak Inspir Pressure Pressure Support Sodium 140 Potassium 3.4 Chloride 107 Carbon Dioxide 29 Anion Gap 4 BUN 34 H Creatinine 0.60 L Estim Creat Clear Calc 107 Estimated GFR > 60 Glucose 139 H POC Capillary Glucose 134 H 157 H Calcium 8.4 Magnesium 2.1 Total Bilirubin 0.7 AST 20 ALT 13 Alkaline Phosphatase 53 Total Protein 6.0 L Albumin 3.1 L 01/01/24 01/01/24 01/01/24 05:20 09:07 11:41 WBC RBC Hgb Hct MCV MCH MCHC RDW Plt Count MPV Puncture Site Artline Artline ABG pH 7.478 H 7.511 H* ABG pCO2 36.1 34.7 L ABG pO2 79.2 L 80.3 ABG PO2/FiO2 Ratio 1.98 2.68 ABG HCO3 26.2 H 27.1 H ABG O2 Saturation 96.5 96.9 ABG O2 Content 17.8 17.3 ABG Base Excess 2.8 4.3 A-a Gradient 164.5 92.8 Oxyhemoglobin 96.2 96.7 Carboxyhemoglobin 0.4 Methemoglobin 0.2 Reduced Hemoglobin 3.2 Total Hemoglobin 13.1 12.7 O2 Delivery Device Ventilator Ventilator O2 Liters/Min Not Reportable Not Reportable Minute Volume Not Reportable Not Reportable Vent Rate 25 Not Reportable Vent Mode Cmv Spontaneous FiO2 40 30 Tidal Volume 450 Not Reportable PEEP 8 8 Peak Inspir Pressure Not Reportable Not Reportable Pressure Support Not Reportable 5 Sodium Potassium Chloride Carbon Dioxide Anion Gap BUN Creatinine Estim Creat Clear Calc Estimated GFR Glucose POC Capillary Glucose 159 H Calcium Magnesium Total Bilirubin AST ALT Alkaline Phosphatase Total Protein Albumin
[2024-01-01 18:18] LABS: Glucose Point of Care 143 mg/dl (65-105)
[2024-01-01] MEDS: MINERAL OIL/WHITE PETROLATUM OINTMENT 1 APPLIC EACH EYE (19:27)
[2024-01-02] VITALS (43 sets, daily range): BP systolic 71–162; BP diastolic 54–96; PULSE 64–99; RESP 20–31; TEMP 36.8–37.9; O2SAT 92–100
[2024-01-02 00:13] LABS: Glucose Point of Care 131 mg/dl (65-105)
[2024-01-02] MEDS: ONDANSETRON INJ 4 MG/2 ML VIAL IV PUSH ×2 (01:17→08:25)
[2024-01-02] MEDS: PIPERACILLN/TAZ 3.375GM/NS50ML 3.375 GM/50 ML BAG IVPB ×5 (01:17→23:10)
[2024-01-02 05:09] LABS: Alveolar/Arterial O2 Gradient 525.2 mmHg; Base Excess ABG 6.5 mEq/l (+/-2.0); Carboxyhemoglobin 0.4 % THb (0-2.0); Fractional Inspired Oxygen 90 %; HCO3 ABG 29.6 mEq/l (22.0-26.0); Methemoglobin ABG 0.3 %THb (0-1.5); Oxygen Content ABG 22.4 %vol (16.0-22.0); Oxygen Saturation ABG 96.7 % (95.0-100.0); Oxyhemoglobin 95.5 % THb (90.0-100.0); PCO2 ABG 37.2 mmHg (35.0-45.0); PO2 ABG 78.4 mmHg (80.0-100.0); PO2 FiO2 Ratio Arterial Blood 0.87 %; Reduced Hemoglobin 3.8 %THb (0-5.0); Total Hemoglobin 16.7 g/dL (12.0-18.0)
[2024-01-02 05:17] LABS: Modified Allen's Test Pass; Site Drawn RIGHT RADIAL; pH ABG 7.518 (7.350-7.450)
[2024-01-02 05:19] LABS: Device OTHER DEVICE
[2024-01-02] MEDS: CENTRAL LINE FLUSH 10 ML IV PUSH ×5 (05:58→20:08)
[2024-01-02 06:22] LABS: Basophils Percent Auto 0.1 % (0.2-1.2); Hematocrit 37.6 % (42.0-52.0); Hemoglobin 12.5 g/dL (14.0-18.0); Immature Granulocyte Absolute 0.06 K/mm3 (0.00-0.031); Immature Granulocyte Percent A 0.7 % (0-0.5); Lymphocytes Absolute Auto 0.52 K/mm3 (0.9-3.2); Lymphocytes Percent Auto 6.3 % (18.3-44.2); Mean Corpuscular HGB Conc 33.2 g/dl (32-36); Mean Corpuscular Hemoglobin 31.8 pg (26-34); Mean Corpuscular Volume 95.7 fl (80-100); Mean Platelet Volume 12.5 fl (7.4-10.4); Monocytes Absolute Auto 0.6 K/mm3 (0.1-0.6); Monocytes Percent Auto 7.6 % (2.6-8.5); Neutrophils Absolute Auto 7.1 K/mm3 (1.3-6.7); Neutrophils Percent Auto 85.3 % (45.5-73.1); Platelet Count Result 125 k/mm3 (150-375); Red Blood Count 3.93 M/mm3 (4.6-6.20); Red Cell Distribution Width 13.7 % (11.5-14.5); White Blood Count 8.3 K/mm3 (4.5-10.0)
[2024-01-02 07:02] LABS: Alanine Aminotransferase 69 U/L (6-50); Albumin Level 3.2 g/dL (3.5-5.1); Alkaline Phosphatase 65 U/L (38-126); Anion Gap 5 mmol/L (4-12); Aspartate Amino Transferase 65 U/L (17-59); Bilirubin,Total 1.6 mg/dL (0.2-1.3); Blood Urea Nitrogen 24 mg/dL (9-20); Calcium 8.4 mg/dL (8.4-10.2); Carbon Dioxide 32 mmol/L (22-30); Chloride 101 mmol/L (98-107); Estimated CRCL calculation 107 ml/min; Estimated Glomerular Filt Rate > 60; Glucose 124 mg/dL (65-110); Magnesium 1.9 mg/dL (1.6-2.3); Potassium 2.8 mmol/L (3.4-5.0); Sodium 138 mmol/L (137-145)
[2024-01-02] MEDS: methylPREDNISolone SOD SUCC 40 MG VIAL IV PUSH ×4 (08:12→23:10)
[2024-01-02] MEDS: POTASSIUM CHLORIDE 20 MEQ PACKET (FOR LIQUID) 40 MEQ FEED TUBE ×3 (08:12→15:11)
[2024-01-02] MEDS: ENOXAPARIN 40 MG/0.4 ML SYRINGE SUB-Q (08:12)
[2024-01-02] MEDS: PANTOPRAZOLE SODIUM IV 40 MG VIAL IV PUSH ×2 (08:12→20:07)
[2024-01-02] MEDS: polyethylene glycoL 3350 17 GM POWD.PACK PO (08:12)
--- NOTE | 2024-01-02 09:02 | WPDINTPN ---
Progress Note: A&P Assessment and Plan (1) Acute respiratory failure: Code(s): J96.00 - Acute respiratory failure, unspecified whether with hypoxia or hypercapnia Status: Acute Assessment and Plan: acute respiratory failure secondary to aspiration pneumonia CT chest Reviewed chest x-ray reviewed. ABG reviewed 12/31 extubated yesterday after a successful weaning trial. Patient required supplemental oxygen and was on non-rebreather mask. This morning he had increased work of breathing and coarse breath sounds specially on the right side. He had diuresed well with Lasix. I placed patient on BiPAP this morning 01/25 and will see how he does. He may need re-intubation if deteriorates or does not improve. Continue monitoring in ICU closely for respiratory status. course of Solu-Medrol for any potential airway edema Treatment of pneumonia as below (2) Septic shock: Code(s): A41.9 - Sepsis, unspecified organism; R65.21 - Severe sepsis with septic shock Status: Acute Assessment and Plan: septic shock secondary to aspiration pneumonia. 12/29 improved with decreased vasopressor requirement. Patient is now off of vasopressin epinephrine drip and only on Levophed. patient weaned off Levophed. now Off of vasopressors and all IV fluids. off stress dose hydrocortisone blood and sputum culture sent and negative continue empiric Zosyn. discontinued vancomycin (3) Nausea & vomiting: Code(s): R11.2 - Nausea with vomiting, unspecified Status: Acute Assessment and Plan: Zofran is ordered. no current vomiting episodes. hold tube feeding due to worsening respiratory status. Change PPI to q.12 hours for GERD (4) Aspiration pneumonia: Qualifiers: Aspiration pneumonia type: unspecified Laterality: unspecified laterality Lung location: unspecified part of lung Qualified Code(s): J69.0 - Pneumonitis due to inhalation of food and vomit Code(s): J69.0 - Pneumonitis due to inhalation of food and vomit Status: Acute Assessment and Plan: see above (5) Hypertension: Code(s): I10 - Essential (primary) hypertension Status: Acute Assessment and Plan: continue p.r.n. labetalol and hydralazine. If stays elevated will add p.o. antihypertensive. (6) GERD (gastroesophageal reflux disease): Code(s): K21.9 - Gastro-esophageal reflux disease without esophagitis Status: Acute Assessment and Plan: continue PPI. Changed to q.12 hours at this time (7) Electrolyte abnormality: Code(s): E87.8 - Other disorders of electrolyte and fluid balance, not elsewhere classified Status: Acute Assessment and Plan: potassium replacement ordered Plan DVT prophylaxis - Lovenox Stress ulcer prophylaxis - PPI Nutrition - hold tube feeding Code Status - Full Code I spoke to patient And his of at bedside updated them with patient's current status and answered all questions. I explained that we will try nippv but he may need re-intubation if he deteriorates or does not improve Total Critical Care Time - 35 minutes Due to a high probability of clinically significant, life threatening deterioration, the patient required my highest level of preparedness to intervene emergently and I personally spent this critical care time directly and personally managing the patient. This critical care time included obtaining a history; examining the patient; pulse oximetry; ordering and review of studies; arranging urgent treatment with development of a management plan; evaluation of patient's response to treatment; frequent reassessment; and discussions with other providers. It was exclusive of separately billable procedures and treating other patients and teaching time. Please see Assessment and Plan section and the rest of the note for further information on patient assessment and treatment Subjective Date/time seen: 01/02/24 09:02 patient was extubated yesterday after a successful weaning trial. He did well initially and was on supplemental oxygen. He has been suctioning his mouth by himself. This morning he appeared more in respiratory distress with increased breathing. He was maintaining his oxygenation with non-rebreather mask but has developed increased respiratory rate with the use of accessory muscles. This morning he states he does feel short breath. He also complains of heartburn . no nausea vomiting. He has been tolerating his tube feeds. He has good urine output in response to Lasix. other vital signs have been stable. Exam Narrative: General: Pt is alert awake and in mild respiratory distress Lungs/Chest: Trachea central Coarse BS B/L, mild tachypnea with increased work of breathing and use of accessory muscles, coarse breath sounds on right side. No wheezing very faint stridor of on auscultation neck although this could be due to increased work of breathing Cardiac: RRR. Normal S1 S2. No murmurs Circulation: Pedal pulses are intact and symmetrical. Abdomen: Decreased bowel sounds. peg tube in place. Soft. NT. ND. Extremities: No clubbing, cyanosis or edema. Warm : Vanessa in place Neurologic: Follows commands with all 4 extremities . AO x3 PERRL Objective Data Vital Signs Vital Signs: Vital Signs - 24 hr 01/01/24 10:15 01/01/24 10:00 01/01/24 10:28 Temperature 37.2 C Pulse Rate 105 H 104 H Respiratory Rate 18 Blood Pressure 194/108 H Pulse Oximetry 92 90 Oxygen Delivery High Flow Nasal Cannula Oxygen Flow Rate 10 Fraction of Inspired Oxygen 01/01/24 09:10 01/01/24 10:00 01/01/24 10:46 Temperature Pulse Rate 101 H 80 Respiratory Rate Blood Pressure Pulse Oximetry 93 93 Oxygen Delivery Mechanical Ventilation Non-Rebreather Mask Oxygen Flow Rate 15 Fraction of Inspired Oxygen 30 100 01/01/24 12:00 01/01/24 12:00 01/01/24 12:00 Temperature 37.6 C Pulse Rate 93 93 92 Respiratory Rate 22 H 22 H Blood Pressure 148/78 H Pulse Oximetry 97 97 Oxygen Delivery Non-Rebreather Mask Oxygen Flow Rate 15 Fraction of Inspired Oxygen 100 01/01/24 12:00 01/01/24 14:00 01/01/24 14:00 Temperature 37.5 C Pulse Rate 95 95 Respiratory Rate 22 H Blood Pressure 144/75 H Pulse Oximetry 90 Oxygen Delivery Oxygen Flow Rate Fraction of Inspired Oxygen 100 01/01/24 16:00 01/01/24 16:00 01/01/24 16:00 Temperature 37.6 C Pulse Rate 89 89 89 Respiratory Rate 23 H 23 H Blood Pressure 137/96 H Pulse Oximetry 98 98 Oxygen Delivery Non-Rebreather Mask Oxygen Flow Rate 15 Fraction of Inspired Oxygen 100 01/01/24 18:00 01/01/24 18:00 01/01/24 19:25 Temperature Pulse Rate 91 96 95 Respiratory Rate 22 H Blood Pressure 144/84 H Pulse Oximetry 99 Oxygen Delivery Oxygen Flow Rate Fraction of Inspired Oxygen 01/01/24 20:00 01/01/24 20:00 01/01/24 22:00 Temperature Pulse Rate 82 83 88 Respiratory Rate 25 H Blood Pressure Pulse Oximetry 98 Oxygen Delivery Non-Rebreather Mask Oxygen Flow Rate 15 Fraction of Inspired Oxygen 100 01/01/24 22:00 01/01/24 19:01 01/01/24 20:00 Temperature 37.6 C 37.6 C 37.6 C H Pulse Rate 88 92 80 Respiratory Rate 20 17 25 H Blood Pressure 153/94 H 124/82 143/89 H Pulse Oximetry 99 98 93 Oxygen Delivery Oxygen Flow Rate Fraction of Inspired Oxygen 01/01/24 20:01 01/02/24 00:00 01/02/24 03:24 Temperature 37.6 C H Pulse Rate 82 88 Respiratory Rate 25 H 20 Blood Pressure Pulse Oximetry 98 99 96 Oxygen Delivery Non-Rebreather Mask Non-Rebreather Mask Oxygen Flow Rate 15 15 Fraction of Inspired Oxygen 100 01/02/24 04:00 01/02/24 00:00 01/02/24 02:00 Temperature Pulse Rate 97 93 Respiratory Rate Blood Pressure Pulse Oximetry 99 Oxygen Delivery Oxygen Flow Rate 15 Fraction of Inspired Oxygen 01/02/24 04:00 01/02/24 06:00 01/02/24 00:00 Temperature 37.5 C Pulse Rate 87 87 97 Respiratory Rate 30 H Blood Pressure 142/95 H Pulse Oximetry 100 Oxygen Delivery Oxygen Flow Rate Fraction of Inspired Oxygen 01/02/24 02:00 01/02/24 04:00 01/02/24 06:00 Temperature 37.7 C H 37.8 C H 37.7 C H Pulse Rate 93 87 90 Respiratory Rate 22 H 22 H 22 H Blood Pressure 146/72 H 146/85 H 142/64 H Pulse Oximetry 93 93 94 Oxygen Delivery Oxygen Flow Rate Fraction of Inspired Oxygen 01/02/24 08:06 Temperature Pulse Rate 91 Respiratory Rate 31 H Blood Pressure Pulse Oximetry 93 Oxygen Delivery BiPAP Oxygen Flow Rate Fraction of Inspired Oxygen Intake/Output Intake/Output: Intake & Output 12/30/23 12/31/23 01/01/24 01/02/24 23:59 23:59 23:59 23:59 Intake Total 1791.1 1273.6 1075.3 1621 Output Total 3750 729 3028 1999 Balance 791.1 573.6 -2399.7 -379 Meds/Results Medications: Active Medications Generic Name Dose Route Start Last Admin Trade Name Freq PRN Reason Stop Dose Admin Acetaminophen 650 mg 12/29/23 05:25 12/29/23 10:41 Acetaminophen 650 Mg Suppository RECTAL 650 mg Q6H PRN Administration Mild Pain (1-3) or Fever Bisacodyl 10 mg 12/30/23 08:09 Bisacodyl 10 Mg Suppository RECTAL QAM PRN Constipation Dextrose 12.5 gm 12/29/23 08:21 Dextrose 50% 25 Gm/50 Ml Syringe IV PUSH PRN PRN Hypoglycemia Protocol Enoxaparin Sodium 40 mg 12/29/23 09:00 01/02/24 08:12 Enoxaparin 40 Mg/0.4 Ml Syringe SUB-Q 40 mg DAILY GELA Administration Glucagon 1 mg 12/29/23 08:21 Glucagon For Inj 1 Mg Vial IM PRN PRN Hypoglycemia Protocol Glucose 15 gm 12/29/23 08:21 Glucose Oral Gel 15 Gm Of Glucse In 37.5 Gm Tube PO PRN PRN Hypoglycemia Protocol Hydralazine HCl 20 mg 01/01/24 10:09 Hydralazine Hcl 20 Mg/Ml Vial IV PUSH Q4H PRN SBP more than 160 Piperacillin/Tazobactam/Dextrose 3.375 gm in 50 mls @ 100 mls/hr 12/29/23 12:00 01/02/24 05:58 Zosyn 3.375 Gm/Ns 50 Ml IVPB 100 mls/hr Q6H GELA Administration Dextrose 1,000 mls @ 100 mls/hr 12/29/23 08:21 Dextrose 5% 1,000 Ml IVPB PRN PRN Hypoglycemia Protocol Insulin Aspart 2 - 5 units 12/29/23 12:00 01/02/24 06:59 Insulin Aspart (*Bkc) 100 Units/Ml SUB-Q Not Given Q6HR [facility] Protocol Labetalol HCl 20 mg 01/01/24 10:09 01/01/24 19:25 Labetalol Hcl Inj 100 Mg/20 Ml Vial IV PUSH 20 mg Q4H PRN Administration SBP > 160 and HR> 60 -1st choice Methylprednisolone Sodium Succinate 40 mg 01/02/24 07:50 01/02/24 08:12 Methylprednisolone Sod Succ 40 Mg Vial IV PUSH 01/03/24 00:01 40 mg Q6HR GELA Administration Multi-Ingred Cream/Lotion/Oil/Oint 1 applic 12/29/23 09:00 01/02/24 08:12 Mineral Oil/White Petrolatum Ointment EACH EYE Not Given Q12HR [facility] Ondansetron HCl 4 mg 12/29/23 05:25 01/02/24 08:25 Ondansetron Inj 4 Mg/2 Ml Vial IV PUSH 4 mg Q4H PRN Administration Nausea Pantoprazole Sodium 40 mg 01/02/24 09:00 01/02/24 08:28 Pantoprazole Sodium Iv 40 Mg Vial IV PUSH Not Given Q12HR GELA Polyethylene Glycol 17 gm 12/29/23 09:00 01/02/24 08:12 Polyethylene Glycol 3350 17 Gm Powd.Pack PO 17 gm QAM GELA Administration Potassium Chloride 40 meq 01/02/24 07:40 01/02/24 08:12 Potassium Chloride 20 Meq Packet (For Liquid) FEED TUBE 01/02/24 15:41 40 meq Q4H GELA Administration Sodium Chloride 10 ml 12/29/23 14:00 01/02/24 05:58 Central Line Flush IV PUSH 10 ml Q8HR GELA Administration Sodium Chloride 20 ml 12/29/23 07:06 Central Line Flush IV PUSH PRN PRN after blood draws Sodium Chloride 10 ml 12/29/23 14:00 01/02/24 05:58 Central Line Flush IV PUSH 10 ml Q8HR GELA Administration Sodium Chloride 20 ml 12/29/23 07:08 Central Line Flush IV PUSH PRN PRN after blood draws Radiology Results: ITS Impressions Abdomen X-Ray 12/29/23 07:23 Impression: NG tube in satisfactory position. Percutaneous gastrostomy tube also in place. Neck/Chest/Abdomen/Pelvis CT 12/29/23 18:24 IMPRESSION: Evaluation of the neck is limited without contrast. A neck mass is not excluded. Generalized neck edema/induration may be postsurgical or posttreatment in nature. Infection, such as cellulitis not excluded. Endotracheal tube terminates 5.6 cm above the doug, consider advancing by 1.6 cm. Pulmonary findings consistent with aspiration pneumonia. Small bilateral pleural effusions. Mediastinal lymphadenopathy. Rectal wall thickening as can be seen with proctitis. Mild fecal impaction with findings suggestive of constipation. Possible decubitus ulcer over the right buttock. Chest X-Ray 01/02/24 06:46 Impression: Probable moderate bibasilar pulmonary edema/atelectasis with small pleural effusions. Correlate clinically for pneumonia. Support line, as above. Labs Labs: Laboratory Results - last 24 hr 01/01/24 01/01/24 01/01/24 09:07 11:41 18:13 WBC RBC Hgb Hct MCV MCH MCHC RDW Plt Count MPV Immature Gran % (Auto) Neut % (Auto) Lymph % (Auto) [place] % (Auto) Eos % (Auto) Baso % (Auto) Lymph # (Auto) [place] # (Auto) Eos # (Auto) Baso # (Auto) Abs Immat Gran (auto) Absolute Neuts (auto) Absolute Nucleated RBC Nucleated RBC % Puncture Site Artline ABG pH 7.511 H* ABG pCO2 34.7 L ABG pO2 80.3 ABG PO2/FiO2 Ratio 2.68 ABG HCO3 27.1 H ABG O2 Saturation 96.9 ABG O2 Content 17.3 ABG Base Excess 4.3 A-a Gradient 92.8 Oxyhemoglobin 96.7 Carboxyhemoglobin Methemoglobin Reduced Hemoglobin Total Hemoglobin 12.7 O2 Delivery Device Ventilator O2 Liters/Min Not Reportable Minute Volume Not Reportable Vent Rate Not Reportable Vent Mode Spontaneous FiO2 30 Tidal Volume Not Reportable PEEP 8 Peak Inspir Pressure Not Reportable Pressure Support 5 Sodium Potassium Chloride Carbon Dioxide Anion Gap BUN Creatinine Estim Creat Clear Calc Estimated GFR Glucose POC Capillary Glucose 159 H 143 H Calcium Magnesium Total Bilirubin AST ALT Alkaline Phosphatase Total Protein Albumin 01/02/24 01/02/24 01/02/24 00:11 05:06 06:08 WBC 8.3 RBC 3.93 L Hgb 12.5 L Hct 37.6 L MCV 95.7 MCH 31.8 MCHC 33.2 RDW 13.7 Plt Count 125 L MPV 12.5 H Immature Gran % (Auto) 0.7 H Neut % (Auto) 85.3 H Lymph % (Auto) 6.3 L [place] % (Auto) 7.6 Eos % (Auto) 0.0 Baso % (Auto) 0.1 L Lymph # (Auto) 0.52 L [place] # (Auto) 0.6 Eos # (Auto) 0.0 Baso # (Auto) 0.0 Abs Immat Gran (auto) 0.06 H Absolute Neuts (auto) 7.1 H Absolute Nucleated RBC 0.000 Nucleated RBC % 0.0 Puncture Site Right radial ABG pH 7.518 H* ABG pCO2 37.2 ABG pO2 78.4 L ABG PO2/FiO2 Ratio 0.87 ABG HCO3 29.6 H ABG O2 Saturation 96.7 ABG O2 Content 22.4 H ABG Base Excess 6.5 A-a Gradient 525.2 Oxyhemoglobin 95.5 Carboxyhemoglobin 0.4 Methemoglobin 0.3 Reduced Hemoglobin 3.8 Total Hemoglobin 16.7 O2 Delivery Device Other device O2 Liters/Min 15.0 Minute Volume Vent Rate Vent Mode FiO2 90 Tidal Volume PEEP Peak Inspir Pressure Pressure Support Sodium 138 Potassium 2.8 L* Chloride 101 Carbon Dioxide 32 H Anion Gap 5 BUN 24 H D Creatinine 0.60 L Estim Creat Clear Calc 107 Estimated GFR > 60 Glucose 124 H POC Capillary Glucose 131 H Calcium 8.4 Magnesium 1.9 Total Bilirubin 1.6 H AST 65 H ALT 69 H Alkaline Phosphatase 65 Total Protein 6.0 L Albumin 3.2 L
[2024-01-02] MEDS: MIDAZOLAM HCL (*CRX) 10 MG/2 ML VIAL 2 MG IV PUSH (10:02)
[2024-01-02] MEDS: ETOMIDATE 20 MG/10 ML AMPUL IV PUSH (10:06)
[2024-01-02] MEDS: SUCCINYLCHOLINE CHLORIDE 20 MG/ML 10 ML VIAL 100 MG IV PUSH (10:07)
[2024-01-02] MEDS: MIDAZOLAM HCL (*CRX) 2 MG/2 ML VIAL IV PUSH (10:09)
[2024-01-02] MEDS: PROPOFOL IV EMULSION 100 ML 12.62 MG IV CONT (10:15)
[2024-01-02] MEDS: FENTANYL 2,500MCG/NS250ML(*CRX 2,500 MCG/250 ML BAG IV CONT (10:15)
--- NOTE | 2024-01-02 10:32 | P.PNCROSS_ITS ---
Event Note Event Note Event Note: patient continues to complain that he is unable to breathe on the BiPAP. He f elt anxious and also complained of nausea. He kept on requesting multiple times that he needs to be put back on the ventilator because he can not keep up with his breathing. He was on 50% FiO2 with adequate saturations and improved respiratory rate tidal volume but appeared to be tiring out. in anticipation of him needing re-intubation I had already discontinued this tube feeds and placed bike tube to suction. I tried to explain to patient and his that ventilator is not the treatment or cure for his problems and is only a means of respiratory support. I did mention option of tracheostomy down the line if patient is unable to be weaned and patient states that he is agreeable if needed. In light of nausea and patient's inability to tolerate BiPAP and worsening respiratory status I decided to reintubate the patient. Prior to re-intubation I also spoke to patient's n daughter who is a nurse by phone and updated her with patient's status and plan to reintubate. She verbalized understanding and also was agreeable with the plan. Patient was reintubated without any complications at this now back on mechanical ventilation and sedation. Only mild amount of secretions were suctioned from his oral airway during intubation and they were clear and not tube feeds. I will restart tube feeds now. Additional critical care time - 50 minutes
--- NOTE | 2024-01-02 10:32 | WPDPROCEDUR ---
Procedures Intubation Intubation Date: 01/02/24 Intubation Time: 10:00 Consent: consent was obtained from patient himself Sedative: etomidate Mg given: 20 Paralytic: succinylcholine Mg given: 100 Laryngoscope: fiber optic video scope Assist device used: fiber optic device ET tube size: cuffed Tube secured depth (cm): 27 Tube secured location: lips Tube placement confirmation: visualized tube passing through cords, equal breath sounds bilaterally, no breath sounds over epigastrium and confirmation by capnometry Patient tolerated procedure: well Intubation complications: none
[2024-01-02 10:41] LABS: Triglycerides 117 mg/dL (<150)
[2024-01-02 11:03] LABS: Alveolar/Arterial O2 Gradient 410.8 mmHg; Base Excess ABG 5.2 mEq/l (+/-2.0); Fractional Inspired Oxygen 100 %; HCO3 ABG 30.1 mEq/l (22.0-26.0); Oxygen Content ABG 19.7 %vol (16.0-22.0); Oxygen Saturation ABG 99.6 % (95.0-100.0); Oxyhemoglobin 99.3 % THb (90.0-100.0); PO2 ABG 257.2 mmHg (80.0-100.0); PO2 FiO2 Ratio Arterial Blood 2.57 %; Total Hemoglobin 13.7 g/dL (12.0-18.0); pH ABG 7.443 (7.350-7.450)
[2024-01-02 11:04] LABS: Device VENTILATOR; Site Drawn ARTLINE
[2024-01-02 11:05] LABS: Arterial Blood Gas PEEP 8 cmH2O; Arterial Blood Gas Pressure Support 0 cmH2O; Arterial Blood Gas Tidal Volume 450 ml; Arterial Blood Gas Vent Mode CMV; Arterial Blood Gas Ventilator rate 22 /MIN
--- NOTE | 2024-01-02 11:09 | PCFNICU ---
ICU Rounding Note: Pt current nutrition is Vital AF 1.2 Nutrition recommendation: Plans to restart tube feedings goal rate at 60 ml/hr at this time. Last recorded weight is 84.1 kg. up from 74 kg on admit. Bowel Motility: +BM reported 01/01 Labs Reviewed:Glu 124, BUN 24, K 2.8, Cr 0.6, Alb 3.2 Meds Noted:Solu Medrol, Fentanyl, Propofol at 30 [id number]=137 kals, Zosyn, Lovenox. Skin: WNL Additional Notes: Spoke with Technical Consultant today, patient was reintubated this morning. Tube feedings will be restarted via PEG of Vital AF 1.2 goal rate at 60 ml/hr. Flush 30 ml q 4 hours. Agree with diet orders at this time. Following daily in ICU rounds. Monitoring tube feeding tolerance, labs, weights, bowel movements, plan of care Follow up Tuesdays and Fridays.
[2024-01-02 12:00] LABS: Glucose Point of Care 143 mg/dl (65-105)
[2024-01-02] MEDS: MIDAZOLAM 100MG/NS 100ML(*CRX) 100 MG/100 ML BAG IV CONT (12:15)
--- NOTE | 2024-01-02 13:36 | PCOTNOTE ---
Attempted to see pt. for occupational therapy evaluation. Pt. reintubated. Canceling orders. Re-order when pt. safely able to participate.
--- NOTE | 2024-01-02 14:12 | PCPTNOTE ---
Attempted to see pt. for physical therapy evaluation. Pt. reintubated. Canceling orders. Re-order when pt. safely able to participate.
[2024-01-02] MEDS: LACTATED RINGERS 500 ML 999 ML IV CONT (15:35)
[2024-01-02 18:16] LABS: Glucose Point of Care 159 mg/dl (65-105)
--- NOTE | 2024-01-02 18:28 | PC.NURSE ---
Right Femoral Arterial Line removed due to inability to obtain BP wave form reading. Gauze and Tegaderm pressure dressing applied after hemostasis achieved.
[2024-01-02] MEDS: NOREPINEPHRINE 8 MG/D5W 250 ML 8 MG/250 ML BAG 9.38 MG IV CONT (19:09)
[2024-01-02] MEDS: MINERAL OIL/WHITE PETROLATUM OINTMENT 1 APPLIC EACH EYE (20:07)
[2024-01-03] VITALS (27 sets, daily range): BP systolic 89–154; BP diastolic 65–103; PULSE 65–94; RESP 13–25; TEMP 36.8–37.6; O2SAT 92–100
[2024-01-03 06:12] LABS: Hematocrit 40.2 % (42.0-52.0); Hemoglobin 13.1 g/dL (14.0-18.0); Mean Corpuscular HGB Conc 32.6 g/dl (32-36); Mean Corpuscular Hemoglobin 32.3 pg (26-34); Mean Platelet Volume 12.8 fl (7.4-10.4); Platelet Count Result 142 k/mm3 (150-375); Red Blood Count 4.06 M/mm3 (4.6-6.20); White Blood Count 6.8 K/mm3 (4.5-10.0)
[2024-01-03] MEDS: PIPERACILLN/TAZ 3.375GM/NS50ML 3.375 GM/50 ML BAG IVPB ×2 (06:20→11:58)
[2024-01-03] MEDS: CENTRAL LINE FLUSH 10 ML IV PUSH ×4 (06:20→21:32)
[2024-01-03 06:22] LABS: Alanine Aminotransferase 83 U/L (6-50); Albumin Level 3.3 g/dL (3.5-5.1); Alkaline Phosphatase 74 U/L (38-126); Anion Gap 3 mmol/L (4-12); Aspartate Amino Transferase 40 U/L (17-59); Blood Urea Nitrogen 37 mg/dL (9-20); Calcium 8.7 mg/dL (8.4-10.2); Carbon Dioxide 35 mmol/L (22-30); Chloride 102 mmol/L (98-107); Estimated CRCL calculation 107 ml/min; Estimated Glomerular Filt Rate > 60; Glucose 151 mg/dL (65-110); Magnesium 2.3 mg/dL (1.6-2.3); Potassium 4.2 mmol/L (3.4-5.0); Sodium 140 mmol/L (137-145)
[2024-01-03] MEDS: polyethylene glycoL 3350 17 GM POWD.PACK PO (08:34)
[2024-01-03] MEDS: PANTOPRAZOLE SODIUM IV 40 MG VIAL IV PUSH ×2 (08:34→21:31)
[2024-01-03] MEDS: ENOXAPARIN 40 MG/0.4 ML SYRINGE SUB-Q (08:34)
[2024-01-03] MEDS: MIDAZOLAM 100MG/NS 100ML(*CRX) 100 MG/100 ML BAG IV CONT (08:39)
--- NOTE | 2024-01-03 08:43 | P.PNINT_ITS ---
Progress Note: A&P Assessment and Plan (1) Acute respiratory failure: Code(s): J96.00 - Acute respiratory failure, unspecified whether with hypoxia or hypercapnia Status: Acute Assessment and Plan: 12/28: Patient was initially admitted after being intubated in the ER for aspiration pneumonia pneumonitis 12/29/2023: Intubated 01/01/2024: Extubated 01/02/2024:Re-intubated for impending respiratory failure and for failed non- rebreather and BiPAP. Patient did receive Solu-Medrol for potential airway edema -Chest x-ray this morning shows stable opacities in the mid lower lung zones right worse than left. -ABGs reviewed -Continue antibiotics as under -continue bronchodilators (2) Septic shock: Code(s): A41.9 - Sepsis, unspecified organism; R65.21 - Severe sepsis with septic shock Status: Acute Assessment and Plan: Septic shock secondary to aspiration pneumonia. -12/29 improved with decreased vasopressor requirement. Patient is now off of vasopressin epinephrine drip and only on Levophed. -patient has been off all vasopressors and IV fluid - off stress dose hydrocortisone -blood and sputum culture sent and negative - continue empiric Zosyn (12/28). Vancomycin was discontinued (3) Nausea & vomiting: Code(s): R11.2 - Nausea with vomiting, unspecified Status: Acute Assessment and Plan: Continue Zofran. no current vomiting episodes. -tube feeds were restarted -continue PPI q.12 hours for GERD -check obstructive series for ileus/SBO (4) Aspiration pneumonia: Qualifiers: Aspiration pneumonia type: unspecified Laterality: unspecified laterality Lung location: unspecified part of lung Qualified Code(s): J69.0 - Pneumonitis due to inhalation of food and vomit Code(s): J69.0 - Pneumonitis due to inhalation of food and vomit Status: Acute Assessment and Plan: see above (5) Hypertension: Code(s): I10 - Essential (primary) hypertension Status: Acute Assessment and Plan: continue p.r.n. labetalol and hydralazine. If stays elevated will add p.o. antihypertensive. (6) GERD (gastroesophageal reflux disease): Code(s): K21.9 - Gastro-esophageal reflux disease without esophagitis Status: Acute Assessment and Plan: Continue Protonix IV q.12 hours (7) Electrolyte abnormality: Code(s): E87.8 - Other disorders of electrolyte and fluid balance, not elsewhere classified Status: Acute Assessment and Plan: Potassium has normalized Plan DVT prophylaxis - Lovenox Stress ulcer prophylaxis - PPI Nutrition -continue tube feeds Code Status - Full Code Total Critical Care Time - 38 minutes Discussed with patient and spouse at bedside and updated them with patient's condition and plan of care, I answered all questions Due to a high probability of clinically significant, life threatening deterioration, the patient required my highest level of preparedness to intervene emergently and I personally spent this critical care time directly and personally managing the patient. This critical care time included obtaining a history; examining the patient; pulse oximetry; ordering and review of studies; arranging urgent treatment with development of a management plan; evaluation of patient's response to treatment; frequent reassessment; and discussions with other providers. It was exclusive of separately billable procedures and treating other patients and teaching time. Please see Assessment and Plan section and the rest of the note for further information on patient assessment and treatment This dictation may have been done utilizing a voice recognition system. Attempts have been made to correct errors. However, there may be uncorrected grammatical, spelling, and recognitions errors present. Subjective Date/time seen: 01/03/24 08:43 Interval history: Reason for consult: Acute respiratory failure, pneumonia likely aspiration, septic shock 12/29/2023: Intubated 01/01/2024: Extubated 01/02/2024: Re-intubated 01/03/2024: Patient seen and examined the ICU, remains intubated on CMV mode of ventilation, peep of 8, 40% FiO2. Patient is on fentanyl and Versed infusion, is awake, alert, able to write on a writing board. Denies any chest pain, shortness of breath, abdominal pain. Patient is off vasopressors. Adequate urine output, afebrile. Tube feeds were held because of high residual. Review of Systems Review of Systems: ROS unobtainable: Yes unobtainable due to endotracheal tube Exam Narrative: General: Patient is intubated, on sedation but is awake, alert, in no acute distress Lungs/Chest: Coarse breath sounds bilaterally, decreased on the right base, adequate air entry, no wheezing Cardiac: Regular rate and rhythm. Normal S1 S2. No murmurs Abdomen: Decreased bowel sounds. peg tube in place. Soft. NT. ND. Extremities: Bilateral upper and lower extremity edema, palpable pedal pulses Neurologic: Patient is intubated on mechanical ventilation, currently on sedation but is awake, alert, able to write on a writing board. Nods to questions appropriately and follows simple commands in all extremities Psych: Not anxious, normal mentation and affect Objective Data Vital Signs Vital Signs: Vital Signs - 24 hr 01/02/24 10:15 01/02/24 10:15 01/02/24 10:35 Temperature Pulse Rate 87 87 95 Respiratory Rate 27 H 27 H 26 H Blood Pressure Pulse Oximetry Oxygen Delivery Fraction of Inspired Oxygen 01/02/24 10:30 01/02/24 10:15 01/02/24 10:00 Temperature Pulse Rate 95 86 94 Respiratory Rate 26 H Blood Pressure Pulse Oximetry 97 Oxygen Delivery Mechanical Ventilation Fraction of Inspired Oxygen 100 01/02/24 10:00 01/02/24 11:08 01/02/24 12:15 Temperature 100.1 F H Pulse Rate 99 89 Respiratory Rate 25 H 20 Blood Pressure 145/70 H Pulse Oximetry 96 Oxygen Delivery Mechanical Ventilation Fraction of Inspired Oxygen 50 01/02/24 12:10 01/02/24 12:15 01/02/24 12:20 Temperature Pulse Rate 89 90 93 Respiratory Rate 23 H 25 H 24 H Blood Pressure Pulse Oximetry Oxygen Delivery Fraction of Inspired Oxygen 01/02/24 12:25 01/02/24 12:30 01/02/24 12:35 Temperature Pulse Rate 85 89 87 Respiratory Rate 23 H 25 H 24 H Blood Pressure Pulse Oximetry Oxygen Delivery Fraction of Inspired Oxygen 01/02/24 12:45 01/02/24 12:00 01/02/24 12:00 Temperature Pulse Rate 64 90 89 Respiratory Rate 25 H 25 H Blood Pressure Pulse Oximetry 98 Oxygen Delivery Mechanical Ventilation Fraction of Inspired Oxygen 50 01/02/24 12:00 01/02/24 12:00 01/02/24 13:13 Temperature 100.3 F H Pulse Rate 90 89 Respiratory Rate 23 H 26 H Blood Pressure 162/91 H Pulse Oximetry 92 Oxygen Delivery Fraction of Inspired Oxygen 50 01/02/24 12:00 01/02/24 13:14 01/02/24 13:25 Temperature Pulse Rate 90 90 89 Respiratory Rate 25 H 20 Blood Pressure Pulse Oximetry 93 Oxygen Delivery Mechanical Ventilation Fraction of Inspired Oxygen 50 01/02/24 14:00 01/02/24 14:00 01/02/24 14:00 Temperature Pulse Rate 85 84 84 Respiratory Rate 22 H 22 H 22 H Blood Pressure Pulse Oximetry Oxygen Delivery Fraction of Inspired Oxygen 01/02/24 14:00 01/02/24 14:00 01/02/24 14:45 Temperature Pulse Rate 84 86 84 Respiratory Rate 22 H 22 H Blood Pressure 110/70 Pulse Oximetry 92 Oxygen Delivery Fraction of Inspired Oxygen 01/02/24 14:45 01/02/24 15:12 01/02/24 15:15 Temperature Pulse Rate 85 82 82 Respiratory Rate 22 H 24 H 25 H Blood Pressure Pulse Oximetry Oxygen Delivery Fraction of Inspired Oxygen 01/02/24 15:27 01/02/24 15:45 01/02/24 16:27 Temperature Pulse Rate 80 79 87 Respiratory Rate 22 H 21 H Blood Pressure Pulse Oximetry 96 Oxygen Delivery Mechanical Ventilation Fraction of Inspired Oxygen 40 01/02/24 16:00 01/02/24 16:00 01/02/24 16:00 Temperature 99.6 F Pulse Rate 89 80 89 Respiratory Rate 25 H 25 H Blood Pressure 135/92 H Pulse Oximetry 99 98 Oxygen Delivery Mechanical Ventilation Fraction of Inspired Oxygen 40 01/02/24 16:00 01/02/24 17:45 01/02/24 17:45 Temperature Pulse Rate 87 87 Respiratory Rate 24 H 22 H Blood Pressure Pulse Oximetry Oxygen Delivery Fraction of Inspired Oxygen 40 01/02/24 18:00 01/02/24 16:00 01/02/24 16:00 Temperature Pulse Rate 92 82 78 Respiratory Rate 22 H 23 H 25 H Blood Pressure Pulse Oximetry Oxygen Delivery Fraction of Inspired Oxygen 01/02/24 18:00 01/02/24 18:00 01/02/24 18:00 Temperature 99.5 F Pulse Rate 88 84 83 Respiratory Rate 25 H 22 H Blood Pressure 108/77 Pulse Oximetry 93 Oxygen Delivery Fraction of Inspired Oxygen 01/02/24 19:09 01/02/24 20:09 01/02/24 20:09 Temperature Pulse Rate 83 83 83 Respiratory Rate 24 H Blood Pressure 71/54 L 118/84 Pulse Oximetry Oxygen Delivery Fraction of Inspired Oxygen 01/02/24 20:09 01/02/24 20:00 01/02/24 20:00 Temperature Pulse Rate 83 83 81 Respiratory Rate 24 H 24 H Blood Pressure Pulse Oximetry 98 Oxygen Delivery Mechanical Ventilation Fraction of Inspired Oxygen 40 01/02/24 20:00 01/02/24 20:07 01/02/24 20:46 Temperature 99.2 F Pulse Rate 77 84 Respiratory Rate 23 H Blood Pressure 118/84 Pulse Oximetry 98 94 Oxygen Delivery Mechanical Ventilation Fraction of Inspired Oxygen 40 40 01/02/24 22:06 01/02/24 22:00 01/02/24 23:33 Temperature 98.2 F Pulse Rate 80 81 91 Respiratory Rate 21 H Blood Pressure 131/93 H Pulse Oximetry 97 98 Oxygen Delivery Mechanical Ventilation Fraction of Inspired Oxygen 40 01/03/24 00:00 01/03/24 00:00 01/03/24 00:05 Temperature 98.2 F Pulse Rate 91 86 Respiratory Rate 21 H 19 Blood Pressure 135/98 H Pulse Oximetry 98 95 Oxygen Delivery Mechanical Ventilation Fraction of Inspired Oxygen 40 40 01/03/24 00:00 01/02/24 22:00 01/02/24 23:00 Temperature Pulse Rate 83 84 78 Respiratory Rate Blood Pressure 131/93 H 127/92 H Pulse Oximetry Oxygen Delivery Fraction of Inspired Oxygen 01/03/24 00:00 01/02/24 22:00 01/03/24 00:00 Temperature Pulse Rate 85 83 83 Respiratory Rate 24 H 21 H Blood Pressure 135/98 H Pulse Oximetry Oxygen Delivery Fraction of Inspired Oxygen 01/02/24 22:00 01/02/24 22:30 01/02/24 23:30 Temperature Pulse Rate 83 89 88 Respiratory Rate 24 H 24 H 24 H Blood Pressure Pulse Oximetry Oxygen Delivery Fraction of Inspired Oxygen 01/03/24 02:00 01/03/24 02:00 01/03/24 04:00 Temperature 98.2 F Pulse Rate 72 84 Respiratory Rate 23 H Blood Pressure 89/65 L Pulse Oximetry 94 Oxygen Delivery Fraction of Inspired Oxygen 40 01/03/24 04:00 01/03/24 02:00 01/03/24 02:00 Temperature Pulse Rate 84 85 85 Respiratory Rate 23 H 23 H 23 H Blood Pressure Pulse Oximetry 94 Oxygen Delivery Mechanical Ventilation Fraction of Inspired Oxygen 40 01/03/24 02:00 01/03/24 04:00 01/03/24 04:00 Temperature Pulse Rate 85 88 88 Respiratory Rate 22 H 23 H Blood Pressure Pulse Oximetry Oxygen Delivery Fraction of Inspired Oxygen 11/15/24 04:00 01/03/24 04:00 01/03/24 04:00 Temperature 98.6 F Pulse Rate 88 85 74 Respiratory Rate 21 H Blood Pressure 103/70 Pulse Oximetry 96 Oxygen Delivery Fraction of Inspired Oxygen 01/03/24 04:45 01/03/24 06:10 01/03/24 06:00 Temperature 98.5 F Pulse Rate 91 87 88 Respiratory Rate 23 H Blood Pressure 154/94 H Pulse Oximetry 94 97 Oxygen Delivery Mechanical Ventilation Fraction of Inspired Oxygen 40 01/03/24 06:00 01/03/24 06:00 01/03/24 07:59 Temperature Pulse Rate 86 86 Respiratory Rate 22 H 23 H Blood Pressure Pulse Oximetry Oxygen Delivery Fraction of Inspired Oxygen 40 01/03/24 08:00 01/03/24 07:30 01/03/24 08:10 Temperature 99 F Pulse Rate 65 85 87 Respiratory Rate 18 Blood Pressure 127/80 Pulse Oximetry 99 95 97 Oxygen Delivery Mechanical Ventilation Mechanical Ventilation Fraction of Inspired Oxygen 40 40 01/03/24 08:30 01/03/24 08:39 01/03/24 08:39 Temperature Pulse Rate 86 88 88 Respiratory Rate 20 20 Blood Pressure Pulse Oximetry 94 Oxygen Delivery Mechanical Ventilation Fraction of Inspired Oxygen 40 Intake/Output Intake/Output: Intake & Output 12/31/23 01/01/24 01/02/24 01/03/24 23:59 23:59 23:59 23:59 Intake Total 1273.6 1075.3 3118.9 131.4 Output Total 700 3475 2850 300 Balance 573.6 -2399.7 268.9 -168.6 Meds/Results Medications: Active Medications Generic Name Dose Route Start Last Admin Trade Name Freq PRN Reason Stop Dose Admin Acetaminophen 650 mg 12/29/23 05:25 12/29/23 10:41 Acetaminophen 650 Mg Suppository RECTAL 650 mg Q6H PRN Administration Mild Pain (1-3) or Fever Bisacodyl 10 mg 12/30/23 08:09 Bisacodyl 10 Mg Suppository RECTAL QAM PRN Constipation Dextrose 12.5 gm 12/29/23 08:21 Dextrose 50% 25 Gm/50 Ml Syringe IV PUSH PRN PRN Hypoglycemia Protocol Enoxaparin Sodium 40 mg 12/29/23 09:00 01/03/24 08:34 Enoxaparin 40 Mg/0.4 Ml Syringe SUB-Q 40 mg DAILY GELA Administration Glucagon 1 mg 12/29/23 08:21 Glucagon For Inj 1 Mg Vial IM PRN PRN Hypoglycemia Protocol Glucose 15 gm 12/29/23 08:21 Glucose Oral Gel 15 Gm Of Glucse In 37.5 Gm Tube PO PRN PRN Hypoglycemia Protocol Hydralazine HCl 20 mg 01/01/24 10:09 Hydralazine Hcl 20 Mg/Ml Vial IV PUSH Q4H PRN SBP more than 160 Piperacillin/Tazobactam/Dextrose 3.375 gm in 50 mls @ 100 mls/hr 12/29/23 12:00 01/03/24 06:20 Zosyn 3.375 Gm/Ns 50 Ml IVPB 100 mls/hr Q6H GELA Administration Dextrose 1,000 mls @ 100 mls/hr 12/29/23 08:21 Dextrose 5% 1,000 Ml IVPB PRN PRN Hypoglycemia Protocol Fentanyl Citrate 2,500 mcg in 250 mls @ 10 mls/hr 01/02/24 10:10 01/03/24 06:00 Fentanyl 2,500 Mcg/Ns 250 Ml IV CONT 100 mcg/hr .Q25H GELA 10 mls/hr Titration Protocol 100 MCG/HR Propofol 100 mls @ 0 mls/hr 01/02/24 10:15 01/02/24 14:00 Diprivan IV CONT 0 mcg/kg/min .Q0M GELA 0 mls/hr Titration Protocol 0 MCG/KG/MIN Midazolam HCl 100 mg in 100 mls @ 5 mls/hr 01/02/24 12:20 01/03/24 08:39 Versed 100 Mg/Ns 100 Ml IV CONT 5 mg/hr .Q20H GELA 5 mls/hr Administration Protocol 5 MG/HR Norepinephrine Bitartrate 8 mg in 250 mls @ 1.875 mls/hr 01/02/24 16:00 01/03/24 04:00 Levophed 8 Mg/D5w 250 Ml IV CONT 0 mcg/min .Q24H GELA 0 mls/hr Titration Protocol 1 MCG/MIN Insulin Aspart 2 - 5 units 12/29/23 12:00 01/03/24 06:31 Insulin Aspart (*Bkc) 100 Units/Ml SUB-Q Not Given Q6HR GELA Protocol Labetalol HCl 20 mg 01/01/24 10:09 01/01/24 19:25 Labetalol Hcl Inj 100 Mg/20 Ml Vial IV PUSH 20 mg Q4H PRN Administration SBP > 160 and HR> 60 -1st choice Midazolam HCl 2 mg 01/02/24 12:18 Midazolam Hcl (*Crx) 2 Mg/2 Ml Vial IV PUSH Q5M PRN ventilator asynchrony Multi-Ingred Cream/Lotion/Oil/Oint 1 applic 12/29/23 09:00 01/03/24 08:34 Mineral Oil/White Petrolatum Ointment EACH EYE Not Given Q12HR GELA Ondansetron HCl 4 mg 12/29/23 05:25 01/02/24 08:25 Ondansetron Inj 4 Mg/2 Ml Vial IV PUSH 4 mg Q4H PRN Administration Nausea Pantoprazole Sodium 40 mg 01/02/24 09:00 01/03/24 08:34 Pantoprazole Sodium Iv 40 Mg Vial IV PUSH 40 mg Q12HR GELA Administration Polyethylene Glycol 17 gm 12/29/23 09:00 01/03/24 08:34 Polyethylene Glycol 3350 17 Gm Powd.Pack PO 17 gm QAM GELA Administration Sodium Chloride 10 ml 12/29/23 14:00 01/03/24 06:20 Central Line Flush IV PUSH 10 ml Q8HR GELA Administration Sodium Chloride 20 ml 12/29/23 07:06 Central Line Flush IV PUSH PRN PRN after blood draws Sodium Chloride 10 ml 12/29/23 14:00 01/03/24 06:20 Central Line Flush IV PUSH 10 ml Q8HR GELA Administration Sodium Chloride 20 ml 12/29/23 07:08 Central Line Flush IV PUSH PRN PRN after blood draws Radiology Results: ITS Impressions Abdomen X-Ray 12/29/23 07:23 Impression: NG tube in satisfactory position. Percutaneous gastrostomy tube also in place. Neck/Chest/Abdomen/Pelvis CT 12/29/23 18:24 IMPRESSION: Evaluation of the neck is limited without contrast. A neck mass is not excluded. Generalized neck edema/induration may be postsurgical or posttreatment in nature. Infection, such as cellulitis not excluded. Endotracheal tube terminates 5.6 cm above the doug, consider advancing by 1.6 cm. Pulmonary findings consistent with aspiration pneumonia. Small bilateral pleural effusions. Mediastinal lymphadenopathy. Rectal wall thickening as can be seen with proctitis. Mild fecal impaction with findings suggestive of constipation. Possible decubitus ulcer over the right buttock. Chest X-Ray 01/02/24 10:40 IMPRESSION: 1. Stable airspace opacities in the mid and lower lung zones, consistent with pneumonia. Labs Labs: Laboratory Results - last 24 hr 01/02/24 01/02/24 01/02/24 06:07 10:58 11:57 WBC RBC Hgb Hct MCV MCH MCHC RDW Plt Count MPV Puncture Site Artline ABG pH 7.443 ABG pCO2 45.0 ABG pO2 257.2 H ABG PO2/FiO2 Ratio 2.57 ABG HCO3 30.1 H ABG O2 Saturation 99.6 ABG O2 Content 19.7 ABG Base Excess 5.2 A-a Gradient 410.8 Oxyhemoglobin 99.3 Total Hemoglobin 13.7 O2 Delivery Device Ventilator O2 Liters/Min 0.0 Minute Volume Not Reportable Vent Rate 22 Vent Mode Cmv FiO2 100 Tidal Volume 450 PEEP 8 Peak Inspir Pressure Not Reportable Pressure Support 0 Sodium Potassium Chloride Carbon Dioxide Anion Gap BUN Creatinine Estim Creat Clear Calc Estimated GFR Glucose POC Capillary Glucose 143 H Calcium Magnesium Total Bilirubin AST ALT Alkaline Phosphatase Total Protein Albumin Triglycerides 117 01/02/24 01/03/24 18:11 06:00 WBC 6.8 RBC 4.06 L Hgb 13.1 L Hct 40.2 L MCV 99.0 MCH 32.3 MCHC 32.6 RDW 14.0 Plt Count 142 L MPV 12.8 H Puncture Site ABG pH ABG pCO2 ABG pO2 ABG PO2/FiO2 Ratio ABG HCO3 ABG O2 Saturation ABG O2 Content ABG Base Excess A-a Gradient Oxyhemoglobin Total Hemoglobin O2 Delivery Device O2 Liters/Min Minute Volume Vent Rate Vent Mode FiO2 Tidal Volume PEEP Peak Inspir Pressure Pressure Support Sodium 140 Potassium 4.2 Chloride 102 Carbon Dioxide 35 H Anion Gap 3 L BUN 37 H D Creatinine 0.60 L Estim Creat Clear Calc 107 Estimated GFR > 60 Glucose 151 H POC Capillary Glucose 159 H Calcium 8.7 Magnesium 2.3 Total Bilirubin 1.0 AST 40 ALT 83 H Alkaline Phosphatase 74 Total Protein 6.0 L Albumin 3.3 L Triglycerides Quality VTE Prophylaxis VTE prophylaxis: pharmacologic ordered
[2024-01-03] MEDS: IPRATROPIUM 0.5 MG/ALBUTEROL SULFATE 2.5 MG AMPUL.NEB 3 ML INHALATION ×3 (09:00→20:31)
--- NOTE | 2024-01-03 11:40 | PCNFU ---
Nutrition Follow-Up Complete: Increased protein energy needs related to mechanical ventilation as evidenced by need for full tube feeding goal: Meet estimated nutrition needs Patient is progressing towards goal. We will continue current goal. Pt current nutrition is Vital AF 1.2 at 60 ml/hr. Nutrition Recommendations: Prosource once Last recorded weight is 84.2 kg, up from 74 kg on admit. Bowel Motility: +BM reported 01/01 Labs Reviewed: Glu 151, ,BUN 37, Cr 0.6, Alb 3.3 Meds Noted: Versed, Fentanyl, Lovenox, Miralax. Skin: WNL Additional Notes: Patient remains on mechanical vent. Tube feedings at 60 ml/hr of Vital AF 1.2 via PEG. 150 ml residual reported. Flush 30 ml q 4 hours. Discussed diet orders with [employer] today recommending addition of Prosource once daily. Total Nutrition: 1664 kcal/119 gm protein/1070 ml water. Meeting 90% kcal needs/100% protein needs. Agree with diet orders. Monitoring tube feeding tolerance, labs, weights, bowel movements, plan of care Follow up Tuesdays and Fridays.
[2024-01-03 11:42] LABS: Glucose Point of Care 113 mg/dl (65-105)
[2024-01-03] MEDS: FENTANYL 2,500MCG/NS250ML(*CRX 2,500 MCG/250 ML BAG 10 MCG IV CONT (11:58)
[2024-01-03] MEDS: PIPERACILLIN/TAZ 4.5G/NS 100ML 4.5 GM/100 ML BAG IVPB (18:18)
[2024-01-03 18:23] LABS: Glucose Point of Care 106 mg/dl (65-105)
[2024-01-03] MEDS: MINERAL OIL/WHITE PETROLATUM OINTMENT 1 APPLIC EACH EYE (21:31)
[2024-01-04] VITALS (31 sets, daily range): BP systolic 103–160; BP diastolic 61–99; PULSE 77–104; RESP 10–22; TEMP 37.6–37.8; O2SAT 92–99
[2024-01-04] MEDS: PIPERACILLIN/TAZ 4.5G/NS 100ML 4.5 GM/100 ML BAG IVPB ×4 (01:15→18:04)
[2024-01-04 02:04] LABS: Glucose Point of Care 117 mg/dl (65-105)
[2024-01-04] MEDS: IPRATROPIUM 0.5 MG/ALBUTEROL SULFATE 2.5 MG AMPUL.NEB 3 ML INHALATION ×4 (02:26→20:28)
[2024-01-04 05:17] LABS: Alveolar/Arterial O2 Gradient 128.1 mmHg; Base Excess ABG 8.1 mEq/l (+/-2.0); Fractional Inspired Oxygen 40 %; HCO3 ABG 33.8 mEq/l (22.0-26.0); Oxygen Content ABG 18.5 %vol (16.0-22.0); Oxygen Saturation ABG 97.6 % (95.0-100.0); Oxyhemoglobin 97.5 % THb (90.0-100.0); PCO2 ABG 51.1 mmHg (35.0-45.0); PO2 ABG 98.3 mmHg (80.0-100.0); PO2 FiO2 Ratio Arterial Blood 2.46 %; Total Hemoglobin 13.4 g/dL (12.0-18.0); pH ABG 7.438 (7.350-7.450)
[2024-01-04 05:18] LABS: Device VENTILATOR; Modified Allen's Test Pass; Site Drawn RIGHT RADIAL
[2024-01-04 05:19] LABS: Arterial Blood Gas PEEP 8 cmH2O; Arterial Blood Gas Tidal Volume 450 ml; Arterial Blood Gas Vent Mode CMV; Arterial Blood Gas Ventilator rate 22 /MIN
[2024-01-04 05:38] LABS: Basophils Percent Auto 0.3 % (0.2-1.2); Eosinophils Absolute Auto 0.1 K/mm3 (0-0.3); Eosinophils Percent Auto 0.7 % (0-4.4); Hematocrit 38.6 % (42.0-52.0); Hemoglobin 12.5 g/dL (14.0-18.0); Immature Granulocyte Absolute 0.09 K/mm3 (0.00-0.031); Immature Granulocyte Percent A 1.3 % (0-0.5); Lymphocytes Absolute Auto 0.83 K/mm3 (0.9-3.2); Lymphocytes Percent Auto 12.2 % (18.3-44.2); Mean Corpuscular HGB Conc 32.4 g/dl (32-36); Mean Corpuscular Hemoglobin 32.3 pg (26-34); Mean Corpuscular Volume 99.7 fl (80-100); Mean Platelet Volume 12.6 fl (7.4-10.4); Monocytes Absolute Auto 0.6 K/mm3 (0.1-0.6); Monocytes Percent Auto 9.1 % (2.6-8.5); Neutrophils Absolute Auto 5.2 K/mm3 (1.3-6.7); Neutrophils Percent Auto 76.4 % (45.5-73.1); Platelet Count Result 145 k/mm3 (150-375); Red Blood Count 3.87 M/mm3 (4.6-6.20); Red Cell Distribution Width 14.2 % (11.5-14.5); White Blood Count 6.8 K/mm3 (4.5-10.0)
[2024-01-04 05:49] LABS: Lactic Acid Reflex 0.9 mmol/L (0.7-2.0)
[2024-01-04 05:51] LABS: Alanine Aminotransferase 74 U/L (6-50); Albumin Level 3.2 g/dL (3.5-5.1); Alkaline Phosphatase 63 U/L (38-126); Anion Gap 6 mmol/L (4-12); Aspartate Amino Transferase 34 U/L (17-59); Bilirubin,Total 0.7 mg/dL (0.2-1.3); Blood Urea Nitrogen 43 mg/dL (9-20); CRP 3.7 mg/dL (<1.0); Calcium 8.5 mg/dL (8.4-10.2); Carbon Dioxide 35 mmol/L (22-30); Chloride 103 mmol/L (98-107); Estimated CRCL calculation 93 ml/min; Estimated Glomerular Filt Rate > 60; Glucose 108 mg/dL (65-110); Magnesium 2.3 mg/dL (1.6-2.3); Phosphorus 3.6 mg/dL (2.5-4.5); Potassium 3.8 mmol/L (3.4-5.0); Sodium 144 mmol/L (137-145)
[2024-01-04] MEDS: MIDAZOLAM 100MG/NS 100ML(*CRX) 100 MG/100 ML BAG IV CONT (05:56)
[2024-01-04] MEDS: CENTRAL LINE FLUSH 10 ML IV PUSH (07:40)
[2024-01-04] MEDS: PANTOPRAZOLE SODIUM IV 40 MG VIAL IV PUSH ×2 (08:27→20:39)
[2024-01-04] MEDS: ENOXAPARIN 40 MG/0.4 ML SYRINGE SUB-Q (08:27)
[2024-01-04] MEDS: FUROSEMIDE INJ 40 MG/4 ML VIAL 20 MG IV PUSH (08:27)
[2024-01-04] MEDS: polyethylene glycoL 3350 17 GM POWD.PACK PO (08:28)
--- NOTE | 2024-01-04 08:33 | P.PNINT_ITS ---
Progress Note: A&P Assessment and Plan (1) Acute respiratory failure: Code(s): J96.00 - Acute respiratory failure, unspecified whether with hypoxia or hypercapnia Status: Acute Assessment and Plan: 12/28: Patient was initially admitted after being intubated in the ER for aspiration pneumonia pneumonitis 12/29/2023: Intubated 01/01/2024: Extubated 01/02/2024:Re-intubated for impending respiratory failure and for failed non- rebreather and BiPAP. Patient did receive Solu-Medrol for potential airway edema -Chest x-ray this morning shows Airspace opacities in the mid and lower lung zones with slight improvement on the right, consistent with pneumonia. -ABGs reviewed -patient placed on ASV mode of ventilation -Continue antibiotics as under -continue bronchodilators (2) Septic shock: Code(s): A41.9 - Sepsis, unspecified organism; R65.21 - Severe sepsis with septic shock Status: Acute Assessment and Plan: Septic shock secondary to aspiration pneumonia. -12/29 improved with decreased vasopressor requirement. -patient has been off all vasopressors and IV fluid - off stress dose hydrocortisone -blood and sputum culture sent and negative - continue empiric Zosyn (12/28). Vancomycin was discontinued (3) Nausea & vomiting: Code(s): R11.2 - Nausea with vomiting, unspecified Status: Acute Assessment and Plan: Continue Zofran. no current vomiting episodes. -tolerating tube feeds, large bowel movement 01/01 -continue PPI q.12 hours for GERD 01/02: Obstructive series normal gas bowel pattern, (4) Aspiration pneumonia: Qualifiers: Aspiration pneumonia type: unspecified Laterality: unspecified laterality Lung location: unspecified part of lung Qualified Code(s): J69.0 - Pneumonitis due to inhalation of food and vomit Code(s): J69.0 - Pneumonitis due to inhalation of food and vomit Status: Acute Assessment and Plan: see above (5) Hypertension: Code(s): I10 - Essential (primary) hypertension Status: Acute Assessment and Plan: continue p.r.n. labetalol and hydralazine. If stays elevated will add p.o. antihypertensive. -patient's blood pressure is erratic, when he sleeps patient is hypotensive, otherwise is normotensive (6) GERD (gastroesophageal reflux disease): Code(s): K21.9 - Gastro-esophageal reflux disease without esophagitis Status: Acute Assessment and Plan: Continue Protonix IV q.12 hours (7) Electrolyte abnormality: Code(s): E87.8 - Other disorders of electrolyte and fluid balance, not elsewhere classified Status: Acute Assessment and Plan: Potassium has normalized Plan DVT prophylaxis - Lovenox Stress ulcer prophylaxis - PPI Nutrition -continue tube feeds Code Status - Full Code Total Critical Care Time - 35 minutes Discussed with patient and spouse at bedside and updated them with patient's condition and plan of care, I answered all questions Due to a high probability of clinically significant, life threatening deterioration, the patient required my highest level of preparedness to intervene emergently and I personally spent this critical care time directly and personally managing the patient. This critical care time included obtaining a history; examining the patient; pulse oximetry; ordering and review of studies; arranging urgent treatment with development of a management plan; evaluation of patient's response to treatment; frequent reassessment; and discussions with other providers. It was exclusive of separately billable procedures and treating other patients and teaching time. Please see Assessment and Plan section and the rest of the note for further information on patient assessment and treatment This dictation may have been done utilizing a voice recognition system. Attempts have been made to correct errors. However, there may be uncorrected grammatical, spelling, and recognitions errors present. Subjective Date/time seen: 01/04/24 08:33 Interval history: Reason for consult: Acute respiratory failure, pneumonia likely aspiration, sep tic shock 12/29/2023: Intubated 01/01/2024: Extubated 01/02/2024: Re-intubated 01/04/2024: Patient seen and examined the ICU, remains intubated on CMV mode of ventilation, peep of 8, 40% FiO2. Patient is on fentanyl and Versed infusion, is awake, alert, able to write on a writing board. Denies any chest pain, shortness of breath, abdominal pain. Patient is off vasopressors. Adequate urine output, afebrile. Tolerating tube feeds, last bowel movement on 01/01 Review of Systems Review of Systems: ROS unobtainable: Yes unobtainable due to endotracheal tube, unobtainable due to medical condition and unobtainable due to mental status Exam Narrative: General: Patient is intubated, on sedation but is awake, alert, in no acute distress Lungs/Chest: Coarse breath sounds bilaterally, decreased on the right base, adequate air entry, no wheezing Cardiac: Regular rate and rhythm. Normal S1 S2. No murmurs Abdomen: Decreased bowel sounds. PEG tube in place. Soft. NT. ND. Extremities: Bilateral upper and lower extremity edema, palpable pedal pulses Neurologic: Patient is intubated on mechanical ventilation, currently on sedation but is awake, alert, able to write on a writing board. Nods to questi ons appropriately and follows simple commands in all extremities Psych: Not anxious, normal mentation and affect Objective Data Vital Signs Vital Signs: Vital Signs - 24 hr 01/03/24 08:39 01/03/24 08:39 01/03/24 10:01 Temperature Pulse Rate 88 88 86 Respiratory Rate 20 20 Blood Pressure Pulse Oximetry 97 Oxygen Delivery Mechanical Ventilation Fraction of Inspired Oxygen 40 01/03/24 10:00 01/03/24 10:00 01/03/24 10:00 Temperature 99.4 F Pulse Rate 83 73 76 Respiratory Rate 13 25 H Blood Pressure 136/93 H Pulse Oximetry 95 Oxygen Delivery Fraction of Inspired Oxygen 01/03/24 10:00 01/03/24 10:00 01/03/24 10:00 Temperature Pulse Rate 80 79 79 Respiratory Rate 25 H 25 H Blood Pressure 142/91 H Pulse Oximetry Oxygen Delivery Fraction of Inspired Oxygen 01/03/24 11:58 01/03/24 11:58 01/03/24 12:00 Temperature 99.6 F Pulse Rate 85 85 83 Respiratory Rate 23 H 23 H 21 H Blood Pressure 127/103 H Pulse Oximetry 94 Oxygen Delivery Fraction of Inspired Oxygen 01/03/24 12:00 01/03/24 12:00 01/03/24 12:00 Temperature Pulse Rate 80 82 Respiratory Rate 24 H Blood Pressure Pulse Oximetry 92 Oxygen Delivery Mechanical Ventilation Fraction of Inspired Oxygen 40 40 01/03/24 13:35 01/03/24 13:35 01/03/24 13:45 Temperature Pulse Rate 82 82 76 Respiratory Rate 23 H 18 Blood Pressure Pulse Oximetry 96 Oxygen Delivery Mechanical Ventilation Fraction of Inspired Oxygen 40 01/03/24 12:00 01/03/24 12:00 01/03/24 14:00 Temperature Pulse Rate 83 84 76 Respiratory Rate 25 H Blood Pressure 120/86 99/65 L Pulse Oximetry Oxygen Delivery Fraction of Inspired Oxygen 01/03/24 14:00 01/03/24 14:00 01/03/24 14:00 Temperature Pulse Rate 77 79 85 Respiratory Rate 20 20 Blood Pressure Pulse Oximetry Oxygen Delivery Fraction of Inspired Oxygen 01/03/24 14:00 01/03/24 16:00 01/03/24 16:00 Temperature 99.4 F Pulse Rate 81 82 71 Respiratory Rate 18 15 Blood Pressure 92/65 L 101/78 Pulse Oximetry 98 Oxygen Delivery Fraction of Inspired Oxygen 01/03/24 16:00 01/03/24 16:04 01/03/24 16:00 Temperature Pulse Rate 75 84 79 Respiratory Rate 23 H Blood Pressure Pulse Oximetry 95 Oxygen Delivery Mechanical Ventilation Fraction of Inspired Oxygen 40 01/03/24 16:00 01/03/24 16:00 01/03/24 16:00 Temperature 99.4 F Pulse Rate 79 78 Respiratory Rate 22 H 18 Blood Pressure 95/67 L Pulse Oximetry 94 95 Oxygen Delivery Mechanical Ventilation Fraction of Inspired Oxygen 40 40 01/03/24 18:00 01/03/24 18:00 01/03/24 18:00 Temperature 99.4 F Pulse Rate 84 84 76 Respiratory Rate 15 Blood Pressure 106/73 98/72 L Pulse Oximetry 100 Oxygen Delivery Fraction of Inspired Oxygen 01/03/24 18:00 01/03/24 18:00 01/03/24 20:00 Temperature 99.7 F H Pulse Rate 76 77 75 Respiratory Rate 21 H 25 H 20 Blood Pressure 127/88 Pulse Oximetry 93 Oxygen Delivery Fraction of Inspired Oxygen 01/03/24 20:00 01/03/24 20:00 01/03/24 20:00 Temperature Pulse Rate 72 73 Respiratory Rate 20 20 Blood Pressure Pulse Oximetry Oxygen Delivery Fraction of Inspired Oxygen 40 01/03/24 20:00 01/03/24 20:32 01/03/24 20:32 Temperature Pulse Rate 73 82 82 Respiratory Rate 20 22 H Blood Pressure Pulse Oximetry 93 96 Oxygen Delivery Mechanical Ventilation Mechanical Ventilation Fraction of Inspired Oxygen 40 40 01/03/24 20:57 01/03/24 23:53 01/03/24 20:00 Temperature Pulse Rate 82 87 72 Respiratory Rate 16 Blood Pressure Pulse Oximetry 94 Oxygen Delivery Mechanical Ventilation Fraction of Inspired Oxygen 40 01/03/24 22:00 01/04/24 00:00 01/04/24 02:00 Temperature Pulse Rate 84 88 96 Respiratory Rate Blood Pressure Pulse Oximetry Oxygen Delivery Fraction of Inspired Oxygen 01/03/24 22:00 01/04/24 00:00 01/04/24 02:00 Temperature 99.6 F 99.7 F H 99.8 F H Pulse Rate 89 82 90 Respiratory Rate 20 18 18 Blood Pressure 96/73 L 132/80 145/99 H Pulse Oximetry 94 96 92 Oxygen Delivery Fraction of Inspired Oxygen 01/04/24 00:00 01/04/24 00:00 01/03/24 22:00 Temperature Pulse Rate 95 88 Respiratory Rate 20 18 Blood Pressure Pulse Oximetry 96 Oxygen Delivery Mechanical Ventilation Fraction of Inspired Oxygen 40 40 01/04/24 00:00 01/04/24 02:00 01/03/24 22:00 Temperature Pulse Rate 88 104 H 88 Respiratory Rate 22 H 22 H 18 Blood Pressure Pulse Oximetry Oxygen Delivery Fraction of Inspired Oxygen 01/04/24 00:00 01/04/24 02:00 01/04/24 02:26 Temperature Pulse Rate 88 104 H 97 Respiratory Rate 20 22 H Blood Pressure Pulse Oximetry 96 Oxygen Delivery Mechanical Ventilation Fraction of Inspired Oxygen 40 01/04/24 02:26 01/04/24 02:33 01/04/24 04:00 Temperature Pulse Rate 97 95 89 Respiratory Rate 16 20 20 Blood Pressure Pulse Oximetry 99 Oxygen Delivery Mechanical Ventilation Fraction of Inspired Oxygen 40 01/04/24 04:00 01/04/24 04:00 01/04/24 04:00 Temperature 99.6 F Pulse Rate 94 94 Respiratory Rate 18 Blood Pressure 116/61 Pulse Oximetry 95 Oxygen Delivery Fraction of Inspired Oxygen 40 01/04/24 05:02 01/04/24 04:00 01/04/24 04:00 Temperature Pulse Rate 89 95 95 Respiratory Rate 18 18 Blood Pressure Pulse Oximetry 99 Oxygen Delivery Mechanical Ventilation Fraction of Inspired Oxygen 40 01/04/24 05:56 01/04/24 05:56 01/04/24 05:58 Temperature Pulse Rate 96 96 96 Respiratory Rate 20 20 20 Blood Pressure Pulse Oximetry Oxygen Delivery Fraction of Inspired Oxygen 01/04/24 06:00 01/04/24 06:00 Temperature 99.7 F H Pulse Rate 92 91 Respiratory Rate 22 H Blood Pressure 160/91 H Pulse Oximetry 95 Oxygen Delivery Fraction of Inspired Oxygen Intake/Output Intake/Output: Intake & Output 01/01/24 01/02/24 01/03/24 01/04/24 23:59 23:59 23:59 23:59 Intake Total 1075.3 3618.4 3298.2 1050.9 Output Total 3475 2850 950 650 Balance -2399.7 768.4 2348.2 400.9 Meds/Results Medications: Active Medications Generic Name Dose Route Start Last Admin Trade Name Freq PRN Reason Stop Dose Admin Acetaminophen 650 mg 12/29/23 05:25 12/29/23 10:41 Acetaminophen 650 Mg Suppository RECTAL 650 mg Q6H PRN Administration Mild Pain (1-3) or Fever Albuterol/Ipratropium 3 ml 01/03/24 08:55 01/04/24 08:02 Ipratropium 0.5 Mg/Albuterol Sulfate 2.5 Mg Ampul.Neb 3 Ml INHALATION 3 ml Q6HRT GELA Administration Bisacodyl 10 mg 12/30/23 08:09 Bisacodyl 10 Mg Suppository RECTAL QAM PRN Constipation Dextrose 12.5 gm 12/29/23 08:21 Dextrose 50% 25 Gm/50 Ml Syringe IV PUSH PRN PRN Hypoglycemia Protocol Enoxaparin Sodium 40 mg 12/29/23 09:00 01/03/24 08:34 Enoxaparin 40 Mg/0.4 Ml Syringe SUB-Q 40 mg DAILY GELA Administration Glucagon 1 mg 12/29/23 08:21 Glucagon For Inj 1 Mg Vial IM PRN PRN Hypoglycemia Protocol Glucose 15 gm 12/29/23 08:21 Glucose Oral Gel 15 Gm Of Glucse In 37.5 Gm Tube PO PRN PRN Hypoglycemia Protocol Hydralazine HCl 20 mg 01/01/24 10:09 Hydralazine Hcl 20 Mg/Ml Vial IV PUSH Q4H PRN SBP more than 160 Dextrose 1,000 mls @ 100 mls/hr 12/29/23 08:21 Dextrose 5% 1,000 Ml IVPB PRN PRN Hypoglycemia Protocol Fentanyl Citrate 2,500 mcg in 250 mls @ 10 mls/hr 01/02/24 10:10 01/04/24 0 5:58 Fentanyl 2,500 Mcg/Ns 250 Ml IV CONT 100 mcg/hr .Q25H GELA 10 mls/hr Titration Protocol 100 MCG/HR Midazolam HCl 100 mg in 100 mls @ 5 mls/hr 01/02/24 12:20 01/04/24 05:56 Versed 100 Mg/Ns 100 Ml IV CONT 5 mg/hr .Q20H GELA 5 mls/hr Administration Protocol 5 MG/HR Norepinephrine Bitartrate 8 mg in 250 mls @ 1.875 mls/hr 01/02/24 16:00 01/03/24 18:00 Levophed 8 Mg/D5w 250 Ml IV CONT 0 mcg/min .Q24H GELA 0 mls/hr Titration Protocol 1 MCG/MIN Piperacillin Sod/Tazobactam Sod 4.5 gm in 100 mls @ 200 mls/hr 01/03/24 18:00 01/04/24 06:28 Zosyn 4.5 Gm/Ns 100 Ml IVPB Infused Q6H GELA Infusion Insulin Aspart 2 - 5 units 12/29/23 12:00 01/04/24 07:40 Insulin Aspart (*Bkc) 100 Units/Ml SUB-Q Not Given Q6HR [facility] Protocol Labetalol HCl 20 mg 01/01/24 10:09 01/01/24 19:25 Labetalol Hcl Inj 100 Mg/20 Ml Vial IV PUSH 20 mg Q4H PRN Administration SBP > 160 and HR> 60 -1st choice Midazolam HCl 2 mg 01/02/24 12:18 Midazolam Hcl (*Crx) 2 Mg/2 Ml Vial IV PUSH Q5M PRN ventilator asynchrony Multi-Ingred Cream/Lotion/Oil/Oint 1 applic 12/29/23 09:00 01/03/24 21:31 Mineral Oil/White Petrolatum Ointment EACH EYE 1 applic Q12HR GELA Administration Ondansetron HCl 4 mg 12/29/23 05:25 01/02/24 08:25 Ondansetron Inj 4 Mg/2 Ml Vial IV PUSH 4 mg Q4H PRN Administration Nausea Pantoprazole Sodium 40 mg 01/02/24 09:00 01/03/24 21:31 Pantoprazole Sodium Iv 40 Mg Vial IV PUSH 40 mg Q12HR GELA Administration Polyethylene Glycol 17 gm 12/29/23 09:00 01/03/24 08:34 Polyethylene Glycol 3350 17 Gm Powd.Pack PO 17 gm QAM GELA Administration Sodium Chloride 10 ml 12/29/23 14:00 01/04/24 07:40 Central Line Flush IV PUSH 10 ml Q8HR GELA Administration Sodium Chloride 20 ml 12/29/23 07:06 Central Line Flush IV PUSH PRN PRN after blood draws Sodium Chloride 20 ml 12/29/23 07:08 Central Line Flush IV PUSH PRN PRN after blood draws Radiology Results: ITS Impressions Neck/Chest/Abdomen/Pelvis CT 12/29/23 18:24 IMPRESSION: Evaluation of the neck is limited without contrast. A neck mass is not excluded. Generalized neck edema/induration may be postsurgical or posttreatment in nature. Infection, such as cellulitis not excluded. Endotracheal tube terminates 5.6 cm above the doug, consider advancing by 1.6 cm. Pulmonary findings consistent with aspiration pneumonia. Small bilateral pleural effusions. Mediastinal lymphadenopathy. Rectal wall thickening as can be seen with proctitis. Mild fecal impaction with findings suggestive of constipation. Possible decubitus ulcer over the right buttock. Abdomen X-Ray 01/03/24 09:13 IMPRESSION: 1. Normal bowel gas pattern. 2. Airspace opacities in the mid and lower lung zones, consistent with pneumonia. Chest X-Ray 01/04/24 05:58 IMPRESSION: 1. Airspace opacities in the mid and lower lung zones with slight improvement on the right, consistent with pneumonia. Labs Labs: Laboratory Results - last 24 hr 01/03/24 01/03/24 01/04/24 11:34 18:20 01:55 WBC RBC Hgb Hct MCV MCH MCHC RDW Plt Count MPV Immature Gran % (Auto) Neut % (Auto) Lymph % (Auto) [place] % (Auto) Eos % (Auto) Baso % (Auto) Lymph # (Auto) [place] # (Auto) Eos # (Auto) Baso # (Auto) Abs Immat Gran (auto) Absolute Neuts (auto) Absolute Nucleated RBC Nucleated RBC % Puncture Site ABG pH ABG pCO2 ABG pO2 ABG PO2/FiO2 Ratio ABG HCO3 ABG O2 Saturation ABG O2 Content ABG Base Excess A-a Gradient Oxyhemoglobin Total Hemoglobin O2 Delivery Device O2 Liters/Min Minute Volume Vent Rate Vent Mode FiO2 Tidal Volume PEEP Peak Inspir Pressure Pressure Support Sodium Potassium Chloride Carbon Dioxide Anion Gap BUN Creatinine Estim Creat Clear Calc Estimated GFR Glucose POC Capillary Glucose 113 H 106 H 117 H Lactic Acid Calcium Phosphorus Magnesium Total Bilirubin AST ALT Alkaline Phosphatase C-Reactive Protein Total Protein Albumin 01/04/24 01/04/24 04:52 05:15 WBC 6.8 RBC 3.87 L Hgb 12.5 L Hct 38.6 L MCV 99.7 MCH 32.3 MCHC 32.4 RDW 14.2 Plt Count 145 L MPV 12.6 H Immature Gran % (Auto) 1.3 H Neut % (Auto) 76.4 H Lymph % (Auto) 12.2 L [place] % (Auto) 9.1 H Eos % (Auto) 0.7 Baso % (Auto) 0.3 Lymph # (Auto) 0.83 L [place] # (Auto) 0.6 Eos # (Auto) 0.1 Baso # (Auto) 0.0 Abs Immat Gran (auto) 0.09 H Absolute Neuts (auto) 5.2 Absolute Nucleated RBC 0.000 Nucleated RBC % 0.0 Puncture Site Right radial ABG pH 7.438 ABG pCO2 51.1 H ABG pO2 98.3 ABG PO2/FiO2 Ratio 2.46 ABG HCO3 33.8 H ABG O2 Saturation 97.6 ABG O2 Content 18.5 ABG Base Excess 8.1 A-a Gradient 128.1 Oxyhemoglobin 97.5 Total Hemoglobin 13.4 O2 Delivery Device Ventilator O2 Liters/Min Not Reportable Minute Volume Not Reportable Vent Rate 22 Vent Mode Cmv FiO2 40 Tidal Volume 450 PEEP 8 Peak Inspir Pressure Not Reportable Pressure Support Not Reportable Sodium 144 Potassium 3.8 Chloride 103 Carbon Dioxide 35 H Anion Gap 6 BUN 43 H Creatinine 0.70 Estim Creat Clear Calc 93 Estimated GFR > 60 Glucose 108 POC Capillary Glucose Lactic Acid 0.9 Calcium 8.5 Phosphorus 3.6 Magnesium 2.3 Total Bilirubin 0.7 AST 34 ALT 74 H Alkaline Phosphatase 63 C-Reactive Protein 3.7 H Total Protein 6.0 L Albumin 3.2 L Quality VTE Prophylaxis VTE prophylaxis: pharmacologic ordered
[2024-01-04 09:43] LABS: Triglycerides 136 mg/dL (<150)
[2024-01-04] MEDS: ACETAMINOPHEN ELIXIR 325 MG/10.15 ML UDC 650 MG PO (11:44)
[2024-01-04] MEDS: POTASSIUM CHLORIDE 20 MEQ PACKET (FOR LIQUID) PO (11:44)
[2024-01-04 11:53] LABS: Glucose Point of Care 112 mg/dl (65-105)
[2024-01-04] MEDS: ALPRAZolam (*CRX) 0.25 MG TABLET PO ×2 (13:05→18:04)
[2024-01-04] MEDS: FENTANYL 2,500MCG/NS250ML(*CRX 2,500 MCG/250 ML BAG 12.5 MCG IV CONT (14:58)
[2024-01-04 18:23] LABS: Glucose Point of Care 100 mg/dl (65-105)
[2024-01-04] MEDS: MINERAL OIL/WHITE PETROLATUM OINTMENT 1 APPLIC EACH EYE (20:48)
[2024-01-05] VITALS (29 sets, daily range): BP systolic 92–162; BP diastolic 67–99; PULSE 76–101; RESP 9–23; TEMP 37.5–38.1; O2SAT 92–98
[2024-01-05] MEDS: MIDAZOLAM 100MG/NS 100ML(*CRX) 100 MG/100 ML BAG 6 MG IV CONT (01:38)
[2024-01-05 01:46] LABS: Glucose Point of Care 115 mg/dl (65-105)
[2024-01-05] MEDS: PIPERACILLIN/TAZ 4.5G/NS 100ML 4.5 GM/100 ML BAG IVPB ×4 (01:49→17:46)
[2024-01-05] MEDS: IPRATROPIUM 0.5 MG/ALBUTEROL SULFATE 2.5 MG AMPUL.NEB 3 ML INHALATION ×4 (02:35→20:18)
[2024-01-05 04:16] LABS: Eosinophils Absolute Auto 0.2 K/mm3 (0-0.3); Eosinophils Percent Auto 2.9 % (0-4.4); Hematocrit 37.5 % (42.0-52.0); Hemoglobin 12.3 g/dL (14.0-18.0); Immature Granulocyte Absolute 0.07 K/mm3 (0.00-0.031); Lymphocytes Absolute Auto 0.55 K/mm3 (0.9-3.2); Lymphocytes Percent Auto 7.7 % (18.3-44.2); Mean Corpuscular HGB Conc 32.8 g/dl (32-36); Mean Corpuscular Hemoglobin 32.8 pg (26-34); Mean Platelet Volume 11.9 fl (7.4-10.4); Monocytes Absolute Auto 0.5 K/mm3 (0.1-0.6); Monocytes Percent Auto 6.3 % (2.6-8.5); Neutrophils Absolute Auto 5.9 K/mm3 (1.3-6.7); Neutrophils Percent Auto 82.1 % (45.5-73.1); Platelet Count Result 160 k/mm3 (150-375); Red Blood Count 3.75 M/mm3 (4.6-6.20); Red Cell Distribution Width 14.3 % (11.5-14.5); White Blood Count 7.2 K/mm3 (4.5-10.0)
[2024-01-05 04:32] LABS: Alanine Aminotransferase 63 U/L (6-50); Albumin Level 3.2 g/dL (3.5-5.1); Alkaline Phosphatase 71 U/L (38-126); Anion Gap 5 mmol/L (4-12); Aspartate Amino Transferase 29 U/L (17-59); Bilirubin,Total 1.3 mg/dL (0.2-1.3); Blood Urea Nitrogen 41 mg/dL (9-20); Calcium 8.5 mg/dL (8.4-10.2); Carbon Dioxide 33 mmol/L (22-30); Chloride 104 mmol/L (98-107); Estimated CRCL calculation 107 ml/min; Estimated Glomerular Filt Rate > 60; Glucose 122 mg/dL (65-110); Magnesium 2.3 mg/dL (1.6-2.3); Phosphorus 3.5 mg/dL (2.5-4.5); Potassium 3.6 mmol/L (3.4-5.0); Sodium 142 mmol/L (137-145)
[2024-01-05 05:16] LABS: Alveolar/Arterial O2 Gradient 145.5 mmHg; Base Excess ABG 6.2 mEq/l (+/-2.0); Fractional Inspired Oxygen 40 %; HCO3 ABG 31.2 mEq/l (22.0-26.0); Oxygen Saturation ABG 96.8 % (95.0-100.0); Oxyhemoglobin 96.5 % THb (90.0-100.0); PCO2 ABG 46.5 mmHg (35.0-45.0); PO2 ABG 86.2 mmHg (80.0-100.0); PO2 FiO2 Ratio Arterial Blood 2.15 %; Total Hemoglobin 12.5 g/dL (12.0-18.0); pH ABG 7.444 (7.350-7.450)
[2024-01-05 05:59] LABS: Device VENTILATOR; Modified Allen's Test Pass; Site Drawn LEFT RADIAL
[2024-01-05 06:00] LABS: Arterial Blood Gas PEEP 8 cmH2O; Arterial Blood Gas Vent Mode ASV
[2024-01-05] MEDS: FUROSEMIDE INJ 40 MG/4 ML VIAL IV PUSH (08:03)
[2024-01-05] MEDS: ENOXAPARIN 40 MG/0.4 ML SYRINGE SUB-Q (08:04)
[2024-01-05] MEDS: POTASSIUM CHLORIDE 20 MEQ PACKET (FOR LIQUID) 40 MEQ FEED TUBE (08:04)
[2024-01-05] MEDS: PANTOPRAZOLE SODIUM IV 40 MG VIAL IV PUSH ×2 (08:04→21:18)
[2024-01-05] MEDS: polyethylene glycoL 3350 17 GM POWD.PACK PO (08:04)
[2024-01-05] MEDS: ALPRAZolam (*CRX) 0.25 MG TABLET PO (08:04)
--- NOTE | 2024-01-05 09:08 | P.PNINT_ITS ---
Progress Note: A&P Assessment and Plan (1) Acute respiratory failure: Code(s): J96.00 - Acute respiratory failure, unspecified whether with hypoxia or hypercapnia Status: Acute Assessment and Plan: 12/28: Patient was initially admitted after being intubated in the ER for aspiration pneumonia pneumonitis 12/29/2023: Intubated 01/01/2024: Extubated 01/02/2024:Re-intubated for impending respiratory failure and for failed non- rebreather and BiPAP. Patient did receive Solu-Medrol for potential airway edema -Chest x-ray this morning shows Airspace opacities in the mid and lower lung zones with slight improvement on the right, consistent with pneumonia. -ABGs reviewed -patient has been on ASV mode of ventilation since 01/03 morning through the day and night and tolerating well. Will have the bedside RN wean the sedation and will place patient on SBT and evaluate for extubation -will diurese again today -Continue antibiotics as under -continue bronchodilators (2) Septic shock: Code(s): A41.9 - Sepsis, unspecified organism; R65.21 - Severe sepsis with septic shock Status: Acute Assessment and Plan: Septic shock secondary to aspiration pneumonia. -12/29 improved with decreased vasopressor requirement. -patient has been off all vasopressors and IV fluid - off stress dose hydrocortisone -blood and sputum culture sent and negative - continue empiric Zosyn (12/28). Vancomycin was discontinued (3) Nausea & vomiting: Code(s): R11.2 - Nausea with vomiting, unspecified Status: Acute Assessment and Plan: Continue Zofran. no current vomiting episodes. -tolerating tube feeds, positive bowel movements -continue PPI q.12 hours for GERD 01/02: Obstructive series normal gas bowel pattern, (4) Aspiration pneumonia: Qualifiers: Aspiration pneumonia type: unspecified Laterality: unspecified laterality Lung location: unspecified part of lung Qualified Code(s): J69.0 - Pneumonitis due to inhalation of food and vomit Code(s): J69.0 - Pneumonitis due to inhalation of food and vomit Status: Acute Assessment and Plan: see above (5) Hypertension: Code(s): I10 - Essential (primary) hypertension Status: Acute Assessment and Plan: continue p.r.n. labetalol and hydralazine. If stays elevated will add p.o. antihypertensive. -patient's blood pressure are labile, when he sleeps patient is hypotensive, otherwise is normotensive (6) GERD (gastroesophageal reflux disease): Code(s): K21.9 - Gastro-esophageal reflux disease without esophagitis Status: Acute Assessment and Plan: Continue Protonix IV q.12 hours (7) Electrolyte abnormality: Code(s): E87.8 - Other disorders of electrolyte and fluid balance, not elsewhere classified Status: Acute Assessment and Plan: Will give additional potassium since patient is being diuresed Plan DVT prophylaxis - Lovenox Stress ulcer prophylaxis - PPI Nutrition -continue tube feeds, will have the bedside RN hold the tube feeds for possible extubation Code Status - Full Code Total Critical Care Time - 35 minutes Discussed with patient and spouse at bedside and updated them with patient's condition and plan of care, I answered all questions Due to a high probability of clinically significant, life threatening deterioration, the patient required my highest level of preparedness to inte rvene emergently and I personally spent this critical care time directly and personally managing the patient. This critical care time included obtaining a history; examining the patient; pulse oximetry; ordering and review of studies; arranging urgent treatment with development of a management plan; evaluation of patient's response to treatment; frequent reassessment; and discussions with other providers. It was exclusive of separately billable procedures and treating other patients and teaching time. Please see Assessment and Plan section and the rest of the note for further information on patient assessment and treatment This dictation may have been done utilizing a voice recognition system. Attempts have been made to correct errors. However, there may be uncorrected grammatical, spelling, and recognitions errors present. Subjective Date/time seen: 01/05/24 09:08 Interval history: Reason for consult: Acute respiratory failure, pneumonia likely aspiration, septic shock 12/29/2023: Intubated 01/01/2024: Extubated 01/02/2024: Re-intubated 01/05/2024: Patient seen and examined the ICU, remains intubated on ASV mode of ventilation all day and all night yesterday. Patient is sedated with fentanyl and Versed infusion, is awake, alert, able to nod to questions and follows simple commands. Denies any chest pain, shortness of breath, abdominal pain. Urine output has been adequate in response to diuresis, tolerating tube feeds, positive bowel movement Review of Systems Review of Systems: ROS unobtainable: Yes unobtainable due to endotracheal tube , unobtainable due to medical condition and unobtainable due to mental status Exam Narrative: General: Patient is intubated, on sedation but is awake, alert, in no acute distress Lungs/Chest: Coarse breath sounds bilaterally, decreased on the right base, adequate air entry, no wheezing Cardiac: Regular rate and rhythm. Normal S1 S2. No murmurs Abdomen: Decreased bowel sounds. PEG tube in place. Soft. NT. ND. Extremities: Bilateral upper and lower extremity edema, palpable pedal pulses Neurologic: Patient is intubated on mechanical ventilation, currently on sedation but is awake, alert, able to write on a writing board. Nods to questions appropriately and follows simple commands in all extremities Psych: Not anxious, normal mentation and affect Objective Data Vital Signs Vital Signs: Vital Signs - 24 hr 01/04/24 10:37 01/04/24 10:00 01/04/24 10:00 Temperature 99.7 F H Pulse Rate 94 94 94 Respiratory Rate 17 Blood Pressure 124/92 H Pulse Oximetry 95 95 Oxygen Delivery Mechanical Ventilation Fraction of Inspired Oxygen 40 01/04/24 10:00 01/04/24 10:00 01/04/24 11:44 Temperature 100 F H Pulse Rate 94 94 Respiratory Rate 17 17 Blood Pressure Pulse Oximetry Oxygen Delivery Fraction of Inspired Oxygen 01/04/24 12:00 01/04/24 12:00 01/04/24 12:00 Temperature 100 F H Pulse Rate 88 88 88 Respiratory Rate 10 L 10 L 10 L Blood Pressure 110/79 Pulse Oximetry 95 Oxygen Delivery Fraction of Inspired Oxygen 01/04/24 12:00 01/04/24 12:00 01/04/24 12:00 Temperature Pulse Rate 93 Respiratory Rate Blood Pressure Pulse Oximetry 95 Oxygen Delivery Mechanical Ventilation Fraction of Inspired Oxygen 40 40 01/04/24 12:44 01/04/24 13:42 01/04/24 13:25 Temperature 99.9 F H Pulse Rate 91 93 Respiratory Rate 12 Blood Pressure Pulse Oximetry 95 Oxygen Delivery Mechanical Ventilation Fraction of Inspired Oxygen 40 01/04/24 13:25 01/04/24 14:00 01/04/24 14:00 Temperature Pulse Rate 93 90 90 Respiratory Rate 12 12 12 Blood Pressure Pulse Oximetry Oxygen Delivery Fraction of Inspired Oxygen 01/04/24 14:58 01/04/24 14:58 01/04/24 14:59 Temperature Pulse Rate 89 89 89 Respiratory Rate 14 14 14 Blood Pressure Pulse Oximetry Oxygen Delivery Fraction of Inspired Oxygen 01/04/24 14:00 01/04/24 14:00 01/04/24 16:00 Temperature 100 F H 100 F H Pulse Rate 88 88 90 Respiratory Rate 12 15 Blood Pressure 123/88 141/87 H Pulse Oximetry 96 97 Oxygen Delivery Fraction of Inspired Oxygen 01/04/24 16:00 01/04/24 16:00 01/04/24 16:00 Temperature Pulse Rate 90 90 Respiratory Rate 15 15 Blood Pressure Pulse Oximetry Oxygen Delivery Fraction of Inspired Oxygen 40 01/04/24 16:00 01/04/24 16:00 01/04/24 17:16 Temperature Pulse Rate 87 91 Respiratory Rate Blood Pressure Pulse Oximetry 97 97 Oxygen Delivery Mechanical Ventilation Mechanical Ventilation Fraction of Inspired Oxygen 40 40 01/04/24 18:00 01/04/24 18:00 01/04/24 18:00 Temperature 99.8 F H Pulse Rate 90 90 90 Respiratory Rate 15 15 Blood Pressure 148/99 H Pulse Oximetry 96 Oxygen Delivery Fraction of Inspired Oxygen 01/04/24 18:00 01/04/24 20:33 01/04/24 20:34 Temperature Pulse Rate 90 86 86 Respiratory Rate 15 11 L Blood Pressure Pulse Oximetry 97 Oxygen Delivery Mechanical Ventilation Fraction of Inspired Oxygen 40 01/04/24 20:00 01/04/24 20:00 01/04/24 20:00 Temperature 99.7 F H Pulse Rate 89 Respiratory Rate 14 Blood Pressure 141/87 H Pulse Oximetry 97 97 Oxygen Delivery Mechanical Ventilation Fraction of Inspired Oxygen 40 40 01/04/24 20:00 01/04/24 22:00 01/05/24 00:00 Temperature Pulse Rate 88 77 Respiratory Rate Blood Pressure Pulse Oximetry 96 Oxygen Delivery Mechanical Ventilation Fraction of Inspired Oxygen 40 01/05/24 00:00 01/05/24 00:00 01/04/24 22:00 Temperature 99.9 F H Pulse Rate 76 84 Respiratory Rate 13 Blood Pressure 103/66 Pulse Oximetry 96 Oxygen Delivery Fraction of Inspired Oxygen 40 01/05/24 00:00 01/04/24 23:25 01/04/24 20:43 Temperature 100.4 F H Pulse Rate 77 78 89 Respiratory Rate 14 13 Blood Pressure 92/67 L Pulse Oximetry 96 95 Oxygen Delivery Mechanical Ventilation Fraction of Inspired Oxygen 40 01/05/24 01:38 01/05/24 01:38 01/05/24 02:00 Temperature Pulse Rate 80 80 87 Respiratory Rate 13 13 Blood Pressure Pulse Oximetry Oxygen Delivery Fraction of Inspired Oxygen 01/05/24 02:00 01/05/24 02:39 01/05/24 02:41 Temperature 100.3 F H Pulse Rate 93 95 95 Respiratory Rate 14 12 Blood Pressure 150/79 H Pulse Oximetry 95 98 Oxygen Delivery Mechanical Ventilation Fraction of Inspired Oxygen 40 01/05/24 04:00 01/05/24 04:00 01/05/24 04:00 Temperature Pulse Rate 97 Respiratory Rate Blood Pressure Pulse Oximetry 93 Oxygen Delivery Mechanical Ventilation Fraction of Inspired Oxygen 40 40 01/04/24 20:00 01/04/24 22:00 01/05/24 00:00 Temperature Pulse Rate 88 84 77 Respiratory Rate 12 13 14 Blood Pressure Pulse Oximetry Oxygen Delivery Fraction of Inspired Oxygen 01/05/24 02:00 01/05/24 04:00 01/05/24 02:00 Temperature Pulse Rate 90 95 90 Respiratory Rate 9 L 16 9 L Blood Pressure Pulse Oximetry Oxygen Delivery Fraction of Inspired Oxygen 01/05/24 04:00 01/04/24 20:00 01/04/24 22:00 Temperature Pulse Rate 95 88 84 Respiratory Rate 16 12 13 Blood Pressure Pulse Oximetry Oxygen Delivery Fraction of Inspired Oxygen 01/05/24 00:00 01/05/24 04:00 01/05/24 06:00 Temperature 99.8 F H Pulse Rate 77 95 96 Respiratory Rate 14 16 Blood Pressure 111/72 Pulse Oximetry 95 Oxygen Delivery Fraction of Inspired Oxygen 01/05/24 06:00 01/05/24 06:00 01/05/24 06:00 Temperature 100.2 F H Pulse Rate 92 92 92 Respiratory Rate 15 15 15 Blood Pressure 155/98 H Pulse Oximetry 96 Oxygen Delivery Fraction of Inspired Oxygen 01/05/24 05:04 01/05/24 02:50 01/05/24 07:58 Temperature 99.8 F H Pulse Rate 87 97 100 Respiratory Rate 12 18 Blood Pressure 162/99 H Pulse Oximetry 94 92 Oxygen Delivery Mechanical Ventilation Fraction of Inspired Oxygen 40 01/05/24 08:17 01/05/24 08:19 Temperature Pulse Rate 97 97 Respiratory Rate 12 Blood Pressure Pulse Oximetry 96 Oxygen Delivery Mechanical Ventilation Fraction of Inspired Oxygen 40 Intake/Output Intake/Output: Intake & Output 01/02/24 01/03/24 01/04/24 01/05/24 23:59 23:59 23:59 23:59 Intake Total 3618.4 3298.2 2466.1 1110.9 Output Total 2850 950 3050 750 Balance 768.4 2348.2 -583.9 360.9 Meds/Results Medications: Active Medications Generic Name Dose Route Start Last Admin Trade Name Freq PRN Reason Stop Dose Admin Acetaminophen 650 mg 01/04/24 10:10 01/04/24 11:44 Acetaminophen Elixir 325 Mg/10.15 Ml Udc PO 650 mg Q6H PRN Administration Mild Pain (1-3) or Fever Albuterol/Ipratropium 3 ml 01/03/24 08:55 01/05/24 08:17 Ipratropium 0.5 Mg/Albuterol Sulfate 2.5 Mg Ampul.Neb 3 Ml INHALATION 3 ml Q6HRT GELA Administration Alprazolam 0.25 mg 01/04/24 13:00 01/05/24 08:04 Alprazolam (*Crx) 0.25 Mg Tablet PO 01/06/24 12:59 0.25 mg TID GELA Administration Bisacodyl 10 mg 12/30/23 08:09 Bisacodyl 10 Mg Suppository RECTAL QAM PRN Constipation Dextrose 12.5 gm 12/29/23 08:21 Dextrose 50% 25 Gm/50 Ml Syringe IV PUSH PRN PRN Hypoglycemia Protocol Enoxaparin Sodium 40 mg 12/29/23 09:00 01/05/24 08:04 Enoxaparin 40 Mg/0.4 Ml Syringe SUB-Q 40 mg DAILY GELA Administration Glucagon 1 mg 12/29/23 08:21 Glucagon For Inj 1 Mg Vial IM PRN PRN Hypoglycemia Protocol Glucose 15 gm 12/29/23 08:21 Glucose Oral Gel 15 Gm Of Glucse In 37.5 Gm Tube PO PRN PRN Hypoglycemia Protocol Hydralazine HCl 20 mg 01/01/24 10:09 Hydralazine Hcl 20 Mg/Ml Vial IV PUSH Q4H PRN SBP more than 160 Dextrose 1,000 mls @ 100 mls/hr 12/29/23 08:21 Dextrose 5% 1,000 Ml IVPB PRN PRN Hypoglycemia Protocol Fentanyl Citrate 2,500 mcg in 250 mls @ 12.5 mls/hr 01/02/24 10:10 01/05/24 06:00 Fentanyl 2,500 Mcg/Ns 250 Ml IV CONT 125 mcg/hr .Q20H GELA 12.5 mls/hr Titration Protocol 125 MCG/HR Midazolam HCl 100 mg in 100 mls @ 6 mls/hr 01/02/24 12:20 01/05/24 06:00 Versed 100 Mg/Ns 100 Ml IV CONT 6 mg/hr .[id number] GELA 6 mls/hr Titration Protocol 6 MG/HR Norepinephrine Bitartrate 8 mg in 250 mls @ 1.875 mls/hr 01/02/24 16:00 01/04/24 11:19 Levophed 8 Mg/D5w 250 Ml IV CONT Not Given .Q24H GELA Protocol 1 MCG/MIN Piperacillin Sod/Tazobactam Sod 4.5 gm in 100 mls @ 200 mls/hr 01/03/24 18:00 01/05/24 06:34 Zosyn 4.5 Gm/Ns 100 Ml IVPB Infused Q6H [facility] Infusion Insulin Aspart 2 - 5 units 12/29/23 12:00 01/05/24 05:00 Insulin Aspart (*Bkc) 100 Units/Ml SUB-Q Not Given Q6HR [facility] Protocol Labetalol HCl 20 mg 01/01/24 10:09 01/01/24 19:25 Labetalol Hcl Inj 100 Mg/20 Ml Vial IV PUSH 20 mg Q4H PRN Administration SBP > 160 and HR> 60 -1st choice Midazolam HCl 2 mg 01/02/24 12:18 Midazolam Hcl (*Crx) 2 Mg/2 Ml Vial IV PUSH Q5M PRN ventilator asynchrony Multi-Ingred Cream/Lotion/Oil/Oint 1 applic 12/29/23 09:00 01/05/24 08:04 Mineral Oil/White Petrolatum Ointment EACH EYE Not Given Q12HR [facility] Ondansetron HCl 4 mg 12/29/23 05:25 01/02/24 08:25 Ondansetron Inj 4 Mg/2 Ml Vial IV PUSH 4 mg Q4H PRN Administration Nausea Pantoprazole Sodium 40 mg 01/02/24 09:00 01/05/24 08:04 Pantoprazole Sodium Iv 40 Mg Vial IV PUSH 40 mg Q12HR GELA Administration Polyethylene Glycol 17 gm 12/29/23 09:00 01/05/24 08:04 Polyethylene Glycol 3350 17 Gm Powd.Pack PO 17 gm QAM GELA Administration Radiology Results: ITS Impressions Neck/Chest/Abdomen/Pelvis CT 12/29/23 18:24 IMPRESSION: Evaluation of the neck is limited without contrast. A neck mass is not excluded. Generalized neck edema/induration may be postsurgical or posttreatment in nature. Infection, such as cellulitis not excluded. Endotracheal tube terminates 5.6 cm above the doug, consider advancing by 1.6 cm. Pulmonary findings consistent with aspiration pneumonia. Small bilateral pleural effusions. Mediastinal lymphadenopathy. Rectal wall thickening as can be seen with proctitis. Mild fecal impaction with findings suggestive of constipation. Possible decubitus ulcer over the right buttock. Abdomen X-Ray 01/03/24 09:13 IMPRESSION: 1. Normal bowel gas pattern. 2. Airspace opacities in the mid and lower lung zones, consistent with pneumonia. Labs Labs: Laboratory Results - last 24 hr 01/04/24 01/04/24 01/04/24 05:15 11:43 18:04 WBC RBC Hgb Hct MCV MCH MCHC RDW Plt Count MPV Immature Gran % (Auto) Neut % (Auto) Lymph % (Auto) Foster % (Auto) Eos % (Auto) Baso % (Auto) Lymph # (Auto) Foster # (Auto) Eos # (Auto) Baso # (Auto) Abs Immat Gran (auto) Absolute Neuts (auto) Absolute Nucleated RBC Nucleated RBC % Puncture Site ABG pH ABG pCO2 ABG pO2 ABG PO2/FiO2 Ratio ABG HCO3 ABG O2 Saturation ABG O2 Content ABG Base Excess A-a Gradient Oxyhemoglobin Total Hemoglobin O2 Delivery Device O2 Liters/Min Minute Volume Vent Rate Vent Mode FiO2 Tidal Volume PEEP Peak Inspir Pressure Pressure Support Sodium Potassium Chloride Carbon Dioxide Anion Gap BUN Creatinine Estim Creat Clear Calc Estimated GFR Glucose POC Capillary Glucose 112 H 100 Calcium Phosphorus Magnesium Total Bilirubin AST ALT Alkaline Phosphatase Total Protein Albumin Triglycerides 136 01/05/24 01/05/24 01/05/24 01:36 04:09 05:04 WBC 7.2 RBC 3.75 L Hgb 12.3 L Hct 37.5 L MCV 100.0 MCH 32.8 MCHC 32.8 RDW 14.3 Plt Count 160 MPV 11.9 H Immature Gran % (Auto) 1.0 H Neut % (Auto) 82.1 H Lymph % (Auto) 7.7 L Foster % (Auto) 6.3 Eos % (Auto) 2.9 Baso % (Auto) 0.0 L Lymph # (Auto) 0.55 L Foster # (Auto) 0.5 Eos # (Auto) 0.2 Baso # (Auto) 0.0 Abs Immat Gran (auto) 0.07 H Absolute Neuts (auto) 5.9 Absolute Nucleated RBC 0.000 Nucleated RBC % 0.0 Puncture Site Left radial ABG pH 7.444 ABG pCO2 46.5 H ABG pO2 86.2 ABG PO2/FiO2 Ratio 2.15 ABG HCO3 31.2 H ABG O2 Saturation 96.8 ABG O2 Content 17.0 ABG Base Excess 6.2 A-a Gradient 145.5 Oxyhemoglobin 96.5 Total Hemoglobin 12.5 O2 Delivery Device Ventilator O2 Liters/Min Not Reportable Minute Volume Not Reportable Vent Rate Not Reportable Vent Mode Asv FiO2 40 Tidal Volume Not Reportable PEEP 8 Peak Inspir Pressure Not Reportable Pressure Support Not Reportable Sodium 142 Potassium 3.6 Chloride 104 Carbon Dioxide 33 H Anion Gap 5 BUN 41 H Creatinine 0.60 L Estim Creat Clear Calc 107 Estimated GFR > 60 Glucose 122 H POC Capillary Glucose 115 H Calcium 8.5 Phosphorus 3.5 Magnesium 2.3 Total Bilirubin 1.3 AST 29 ALT 63 H Alkaline Phosphatase 71 Total Protein 6.0 L Albumin 3.2 L Triglycerides Quality VTE Prophylaxis VTE prophylaxis: pharmacologic ordered
[2024-01-05 12:07] LABS: Glucose Point of Care 125 mg/dl (65-105)
[2024-01-05 17:08] LABS: Glucose Point of Care 136 mg/dl (65-105)
[2024-01-05 18:50] LABS: Alveolar/Arterial O2 Gradient 198.8 mmHg; Base Excess ABG 6.9 mEq/l (+/-2.0); Fractional Inspired Oxygen 40 %; HCO3 ABG 31.5 mEq/l (22.0-26.0); Oxygen Content ABG 13.5 %vol (16.0-22.0); PCO2 ABG 44.8 mmHg (35.0-45.0); PO2 FiO2 Ratio Arterial Blood 0.87 %; Total Hemoglobin 13.1 g/dL (12.0-18.0); pH ABG 7.465 (7.350-7.450)
[2024-01-05 18:53] LABS: PO2 ABG 34.9 mmHg (80.0-100.0)
[2024-01-05 18:54] LABS: Oxygen Saturation ABG 70.2 % (95.0-100.0); Oxyhemoglobin 73.7 % THb (90.0-100.0)
[2024-01-05 18:55] LABS: Device VENTILATOR; Modified Allen's Test Pass; Site Drawn RIGHT RADIAL
[2024-01-05 18:56] LABS: Arterial Blood Gas PEEP 5 cmH2O; Arterial Blood Gas Pressure Support 8 cmH2O; Arterial Blood Gas Vent Mode SPONTANEOUS
[2024-01-06] VITALS (21 sets, daily range): BP systolic 120–165; BP diastolic 73–103; PULSE 79–130; RESP 16–31; TEMP 36.8–38.2; O2SAT 90–98
[2024-01-06 00:03] LABS: Glucose Point of Care 134 mg/dl (65-105)
[2024-01-06] MEDS: PIPERACILLIN/TAZ 4.5G/NS 100ML 4.5 GM/100 ML BAG IVPB ×4 (00:10→17:57)
[2024-01-06 04:36] LABS: Basophils Percent Auto 0.1 % (0.2-1.2); Eosinophils Absolute Auto 0.2 K/mm3 (0-0.3); Eosinophils Percent Auto 1.4 % (0-4.4); Hematocrit 39.7 % (42.0-52.0); Immature Granulocyte Absolute 0.09 K/mm3 (0.00-0.031); Immature Granulocyte Percent A 0.8 % (0-0.5); Lymphocytes Absolute Auto 0.55 K/mm3 (0.9-3.2); Mean Corpuscular HGB Conc 32.7 g/dl (32-36); Mean Corpuscular Hemoglobin 32.5 pg (26-34); Mean Corpuscular Volume 99.3 fl (80-100); Mean Platelet Volume 11.9 fl (7.4-10.4); Monocytes Absolute Auto 0.5 K/mm3 (0.1-0.6); Monocytes Percent Auto 4.1 % (2.6-8.5); Neutrophils Absolute Auto 9.8 K/mm3 (1.3-6.7); Neutrophils Percent Auto 88.6 % (45.5-73.1); Platelet Count Result 190 k/mm3 (150-375); Red Cell Distribution Width 13.9 % (11.5-14.5); White Blood Count 11.1 K/mm3 (4.5-10.0)
[2024-01-06 04:56] LABS: Alanine Aminotransferase 59 U/L (6-50); Albumin Level 3.5 g/dL (3.5-5.1); Alkaline Phosphatase 106 U/L (38-126); Anion Gap 5 mmol/L (4-12); Aspartate Amino Transferase 33 U/L (17-59); Bilirubin,Total 0.8 mg/dL (0.2-1.3); Blood Urea Nitrogen 42 mg/dL (9-20); Calcium 8.9 mg/dL (8.4-10.2); Carbon Dioxide 36 mmol/L (22-30); Chloride 103 mmol/L (98-107); Estimated CRCL calculation 107 ml/min; Estimated Glomerular Filt Rate > 60; Glucose 131 mg/dL (65-110); Magnesium 2.4 mg/dL (1.6-2.3); Phosphorus 2.8 mg/dL (2.5-4.5); Sodium 144 mmol/L (137-145)
[2024-01-06] MEDS: ONDANSETRON INJ 4 MG/2 ML VIAL IV PUSH ×2 (05:47→17:58)
[2024-01-06] MEDS: ENOXAPARIN 40 MG/0.4 ML SYRINGE SUB-Q (08:10)
[2024-01-06] MEDS: hydrALAZINE HCL 20 MG/ML VIAL 10 MG IV PUSH (08:10)
[2024-01-06] MEDS: PANTOPRAZOLE SODIUM IV 40 MG VIAL IV PUSH ×2 (08:10→20:56)
[2024-01-06] MEDS: polyethylene glycoL 3350 17 GM POWD.PACK PO (08:11)
[2024-01-06] MEDS: IPRATROPIUM 0.5 MG/ALBUTEROL SULFATE 2.5 MG AMPUL.NEB 3 ML INHALATION ×3 (08:35→21:17)
--- NOTE | 2024-01-06 08:36 | P.PNINT_ITS ---
Progress Note: A&P Assessment and Plan (1) Acute respiratory failure: Code(s): J96.00 - Acute respiratory failure, unspecified whether with hypoxia or hypercapnia Status: Acute Assessment and Plan: 12/28: Patient was initially admitted after being intubated in the ER for aspiration pneumonia pneumonitis 12/29/2023: Intubated 01/01/2024: Extubated 01/02/2024:Re-intubated for impending respiratory failure and for failed non- rebreather and BiPAP. Patient did receive Solu-Medrol for potential airway edema 01/04: Patient was extubated, Currently on nasal cannula and doing well -incentive spirometry and Acapella -PT/OT has been ordered -up in chair -Continue antibiotics as under -continue bronchodilators (2) Septic shock: Code(s): A41.9 - Sepsis, unspecified organism; R65.21 - Severe sepsis with septic shock Status: Acute Assessment and Plan: Septic shock secondary to aspiration pneumonia. -12/29 improved with decreased vasopressor requirement. -patient has been off all vasopressors and IV fluid - off stress dose hydrocortisone -blood and sputum culture sent and negative - continue empiric Zosyn (12/28). Vancomycin was discontinued (3) Nausea & vomiting: Code(s): R11.2 - Nausea with vomiting, unspecified Status: Acute Assessment and Plan: Continue Zofran. no current vomiting episodes. -tolerating tube feeds, positive bowel movements -continue PPI q.12 hours for GERD 01/02: Obstructive series normal gas bowel pattern, (4) Aspiration pneumonia: Qualifiers: Aspiration pneumonia type: unspecified Laterality: unspecified laterality Lung location: unspecified part of lung Qualified Code(s): J69.0 - Pneumonitis due to inhalation of food and vomit Code(s): J69.0 - Pneumonitis due to inhalation of food and vomit Status: Acute Assessment and Plan: see above (5) Hypertension: Code(s): I10 - Essential (primary) hypertension Status: Acute Assessment and Plan: continue p.r.n. labetalol and hydralazine. If stays elevated will add p.o. antihypertensive. -patient hypertensive, will add small dose of amlodipine and small dose of Xanax for anxiety which could be a cause of elevated blood pressures (6) GERD (gastroesophageal reflux disease): Code(s): K21.9 - Gastro-esophageal reflux disease without esophagitis Status: Acute Assessment and Plan: Continue Protonix IV q.12 hours (7) Electrolyte abnormality: Code(s): E87.8 - Other disorders of electrolyte and fluid balance, not elsewhere clas sified Status: Acute Assessment and Plan: Potassium levels are within normal limits Plan DVT prophylaxis - Lovenox Stress ulcer prophylaxis - PPI Nutrition -continue tube feeds, Code Status - Full Code Total Critical Care Time - 32 minutes Patient may be transferred out of the ICU if okay with hospitalist Discussed with patient and spouse at bedside and updated them with patient's condition and plan of care, I answered all questions Due to a high probability of clinically significant, life threatening deterioration, the patient required my highest level of preparedness to intervene emergently and I personally spent this critical care time directly and personally managing the patient. This critical care time included obtaining a history; examining the patient; pulse oximetry; ordering and review of studies; arranging urgent treatment with development of a management plan; evaluation of patient's response to treatment; frequent reassessment; and discussions with other providers. It was exclusive of separately billable procedures and treating other patients and teaching time. Please see Assessment and Plan section and the rest of the note for further information on patient assessment and treatment This dictation may have been done utilizing a voice recognition system. Attempts have been made to correct errors. However, there may be uncorrected grammatical, spelling, and recognitions errors present. Subjective Date/time seen: 01/06/24 08:36 Interval history: Reason for consult: Acute respiratory failure, pneumonia likely aspiration, septic shock 12/29/2023: Intubated 01/01/2024: Extubated 01/02/2024: Re-intubated 01/05/2024: Extubated 01/06/2024: Patient seen and examined the ICU, remains on 3 L nasal cannula, adequate O2 sats. States his breathing is okay, had some nausea early this morning for which he was given Zofran. Denies any chest pain, abdominal pain at this time. Blood pressure in the high. Hemodynamically stable, adequate urine output, afebrile Review of Systems Review of Systems: All systems reviewed & are unremarkable except as noted in HPI and below Exam Narrative: General: Patient is awake, alert, in no acute distress Lungs/Chest: Clear to auscultation bilaterally decreased at bases, no wheezing, adequate air entry Cardiac: Regular rate and rhythm. Normal S1 S2. No murmurs Abdomen: Normoactive bowel sounds. PEG tube in place. Soft. NT. ND. Extremities: Edema is improved and his upper and lower extremities, palpable pedal pulses Neurologic: on nasal cannula awake, alert, talking, follows commands in all extremities Psych: anxious, normal mentation and affect Objective Data Vital Signs Vital Signs: Vital Signs - 24 hr 01/05/24 10:00 01/05/24 10:00 01/05/24 10:00 Temperature Pulse Rate 92 92 92 Respiratory Rate 12 12 Blood Pressure Pulse Oximetry Oxygen Delivery Oxygen Flow Rate Fraction of Inspired Oxygen 01/05/24 10:00 01/05/24 10:42 01/05/24 11:00 Temperature 100.1 F H Pulse Rate 92 88 87 Respiratory Rate 12 16 Blood Pressure 101/72 Pulse Oximetry 97 96 Oxygen Delivery Mechanical Ventilation Oxygen Flow Rate Fraction of Inspired Oxygen 40 01/05/24 11:00 01/05/24 12:00 01/05/24 12:00 Temperature Pulse Rate 87 91 91 Respiratory Rate 16 16 16 Blood Pressure Pulse Oximetry Oxygen Delivery Oxygen Flow Rate Fraction of Inspired Oxygen 01/05/24 12:00 01/05/24 12:00 01/05/24 12:00 Temperature 100.2 F H Pulse Rate 91 89 Respiratory Rate 16 Blood Pressure 135/81 Pulse Oximetry 98 Oxygen Delivery Oxygen Flow Rate Fraction of Inspired Oxygen 40 01/05/24 12:00 01/05/24 12:35 01/05/24 12:36 Temperature Pulse Rate 89 89 Respiratory Rate 16 16 Blood Pressure Pulse Oximetry 98 Oxygen Delivery Mechanical Ventilation Oxygen Flow Rate Fraction of Inspired Oxygen 40 01/05/24 14:32 01/05/24 14:15 01/05/24 14:00 Temperature Pulse Rate 95 Respiratory Rate 14 Blood Pressure Pulse Oximetry 95 95 Oxygen Delivery Nasal Cannula Nasal Cannula Oxygen Flow Rate 3 3 Fraction of Inspired Oxygen 01/05/24 14:00 01/05/24 14:00 01/05/24 16:00 Temperature 100.3 F H Pulse Rate 92 92 91 Respiratory Rate 18 Blood Pressure 159/88 H Pulse Oximetry 98 Oxygen Delivery Oxygen Flow Rate Fraction of Inspired Oxygen 01/05/24 16:00 01/05/24 16:00 01/05/24 18:00 Temperature 100.5 F H Pulse Rate 91 89 Respiratory Rate 20 Blood Pressure 124/71 Pulse Oximetry 95 95 Oxygen Delivery Nasal Cannula Oxygen Flow Rate 3 Fraction of Inspired Oxygen 01/05/24 18:00 01/05/24 20:18 01/05/24 20:24 Temperature 99.9 F H Pulse Rate 89 88 Respiratory Rate 23 H 23 H Blood Pressure 137/86 Pulse Oximetry 95 95 Oxygen Delivery Nasal Cannula Oxygen Flow Rate 3 Fraction of Inspired Oxygen 01/05/24 20:28 01/05/24 20:00 01/05/24 20:00 Temperature 99.5 F Pulse Rate 91 86 Respiratory Rate 14 16 Blood Pressure 137/81 Pulse Oximetry 97 97 Oxygen Delivery Nasal Cannula Oxygen Flow Rate 3 Fraction of Inspired Oxygen 01/05/24 22:00 01/05/24 20:00 01/05/24 22:00 Temperature 99.6 F Pulse Rate 91 88 91 Respiratory Rate 20 Blood Pressure 124/95 H Pulse Oximetry 96 Oxygen Delivery Oxygen Flow Rate Fraction of Inspired Oxygen 01/06/24 00:00 01/06/24 00:00 01/06/24 00:00 Temperature 99.3 F Pulse Rate 88 88 Respiratory Rate 22 H Blood Pressure 165/103 H Pulse Oximetry 97 97 Oxygen Delivery Nasal Cannula Oxygen Flow Rate 3 Fraction of Inspired Oxygen 01/06/24 02:00 01/06/24 02:00 01/06/24 04:00 Temperature 99.4 F Pulse Rate 85 85 Respiratory Rate 22 H Blood Pressure 150/86 H Pulse Oximetry 98 96 Oxygen Delivery Nasal Cannula Oxygen Flow Rate 3 Fraction of Inspired Oxygen 01/06/24 04:00 01/06/24 04:00 01/06/24 06:00 Temperature 99.5 F Pulse Rate 83 85 79 Respiratory Rate 26 H Blood Pressure 160/94 H Pulse Oximetry 95 Oxygen Delivery Oxygen Flow Rate Fraction of Inspired Oxygen 01/06/24 06:00 01/06/24 08:00 Temperature 99.1 F 99.2 F Pulse Rate 79 80 Respiratory Rate 24 H 24 H Blood Pressure 155/90 H 161/90 H Pulse Oximetry 95 96 Oxygen Delivery Oxygen Flow Rate Fraction of Inspired Oxygen Intake/Output Intake/Output: Intake & Output 01/03/24 01/04/24 01/05/24 01/06/24 23:59 23:59 23:59 23:59 Intake Total 3298.2 2466.1 2235.7 638 Output Total 950 3050 2150 1350 Balance 2348.2 -583.9 85.7 -712 Meds/Results Medications: Active Medications Generic Name Dose Route Start Last Admin Trade Name Freq PRN Reason Stop Dose Admin Acetaminophen 650 mg 01/04/24 10:10 01/04/24 11:44 Acetaminophen Elixir 325 Mg/10.15 Ml Udc PO 650 mg Q6H PRN Administration Mild Pain (1-3) or Fever Albuterol/Ipratropium 3 ml 01/03/24 08:55 01/05/24 20:18 Ipratropium 0.5 Mg/Albuterol Sulfate 2.5 Mg Ampul.Neb 3 Ml INHALATION 3 ml Q6HRT GELA Administration Alprazolam 0.125 mg 01/06/24 07:29 Alprazolam (*Crx) 0.25 Mg Tablet PO Q8H PRN Anxiety Bisacodyl 10 mg 12/30/23 08:09 Bisacodyl 10 Mg Suppository RECTAL QAM PRN Constipation Dextrose 12.5 gm 12/29/23 08:21 Dextrose 50% 25 Gm/50 Ml Syringe IV PUSH PRN PRN Hypoglycemia Protocol Enoxaparin Sodium 40 mg 12/29/23 09:00 01/06/24 08:10 Enoxaparin 40 Mg/0.4 Ml Syringe SUB-Q 40 mg DAILY GELA Administration Glucagon 1 mg 12/29/23 08:21 Glucagon For Inj 1 Mg Vial IM PRN PRN Hypoglycemia Protocol Glucose 15 gm 12/29/23 08:21 Glucose Oral Gel 15 Gm Of Glucse In 37.5 Gm Tube PO PRN PRN Hypoglycemia Protocol Hydralazine HCl 10 mg 01/06/24 07:23 01/06/24 08:10 Hydralazine Hcl 20 Mg/Ml Vial IV PUSH 10 mg Q4H PRN Administration hypertension SBP > 150 mmHg Dextrose 1,000 mls @ 100 mls/hr 12/29/23 08:21 Dextrose 5% 1,000 Ml IVPB PRN PRN Hypoglycemia Protocol Piperacillin Sod/Tazobactam Sod 4.5 gm in 100 mls @ 200 mls/hr 01/03/24 18:00 01/06/24 05:55 Zosyn 4.5 Gm/Ns 100 Ml IVPB 200 mls/hr Q6H GELA Administration Insulin Aspart 2 - 5 units 12/29/23 12:00 01/06/24 05:48 Insulin Aspart (*Bkc) 100 Units/Ml SUB-Q Not Given Q6HR [facility] Protocol Labetalol HCl 20 mg 01/01/24 10:09 01/01/24 19:25 Labetalol Hcl Inj 100 Mg/20 Ml Vial IV PUSH 20 mg Q4H PRN Administration SBP > 160 and HR> 60 -1st choice Ondansetron HCl 4 mg 12/29/23 05:25 01/06/24 05:47 Ondansetron Inj 4 Mg/2 Ml Vial IV PUSH 4 mg Q4H PRN Administration Nausea Pantoprazole Sodium 40 mg 01/02/24 09:00 01/06/24 08:10 Pantoprazole Sodium Iv 40 Mg Vial IV PUSH 40 mg Q12HR GELA Administration Polyethylene Glycol 17 gm 12/29/23 09:00 01/06/24 08:11 Polyethylene Glycol 3350 17 Gm Powd.Pack PO 17 gm QAM GELA Administration Radiology Results: ITS Impressions Neck/Chest/Abdomen/Pelvis CT 12/29/23 18:24 IMPRESSION: Evaluation of the neck is limited without contrast. A neck mass is not excluded. Generalized neck edema/induration may be postsurgical or posttreatment in linda ure. Infection, such as cellulitis not excluded. Endotracheal tube terminates 5.6 cm above the doug, consider advancing by 1.6 cm. Pulmonary findings consistent with aspiration pneumonia. Small bilateral pleural effusions. Mediastinal lymphadenopathy. Rectal wall thickening as can be seen with proctitis. Mild fecal impaction with findings suggestive of constipation. Possible decubitus ulcer over the right buttock. Abdomen X-Ray 01/03/24 09:13 IMPRESSION: 1. Normal bowel gas pattern. 2. Airspace opacities in the mid and lower lung zones, consistent with pneumonia. Chest X-Ray 01/05/24 09:11 Impression: Right basilar pneumonia. COPD. ET tube. Labs Labs: Laboratory Results - last 24 hr 01/05/24 01/05/24 01/05/24 11:52 13:48 17:04 WBC RBC Hgb Hct MCV MCH MCHC RDW Plt Count MPV Immature Gran % (Auto) Neut % (Auto) Lymph % (Auto) [place] % (Auto) Eos % (Auto) Baso % (Auto) Lymph # (Auto) [place] # (Auto) Eos # (Auto) Baso # (Auto) Abs Immat Gran (auto) Absolute Neuts (auto) Absolute Nucleated RBC Nucleated RBC % Puncture Site Right radial ABG pH 7.465 H ABG pCO2 44.8 ABG pO2 34.9 L* ABG PO2/FiO2 Ratio 0.87 ABG HCO3 31.5 H ABG O2 Saturation 70.2 L* ABG O2 Content 13.5 L ABG Base Excess 6.9 A-a Gradient 198.8 Oxyhemoglobin 73.7 L* Total Hemoglobin 13.1 O2 Delivery Device Ventilator O2 Liters/Min Not Reportable Minute Volume Not Reportable Vent Rate Not Reportable Vent Mode Spontaneous FiO2 40 Tidal Volume Not Reportable PEEP 5 Peak Inspir Pressure Not Reportable Pressure Support 8 Sodium Potassium Chloride Carbon Dioxide Anion Gap BUN Creatinine Estim Creat Clear Calc Estimated GFR Glucose POC Capillary Glucose 125 H 136 H Calcium Phosphorus Magnesium Total Bilirubin AST ALT Alkaline Phosphatase Total Protein Albumin 01/05/24 01/06/24 23:56 04:23 WBC 11.1 H RBC 4.00 L Hgb 13.0 L Hct 39.7 L MCV 99.3 MCH 32.5 MCHC 32.7 RDW 13.9 Plt Count 190 MPV 11.9 H Immature Gran % (Auto) 0.8 H Neut % (Auto) 88.6 H Lymph % (Auto) 5.0 L [place] % (Auto) 4.1 Eos % (Auto) 1.4 Baso % (Auto) 0.1 L Lymph # (Auto) 0.55 L [place] # (Auto) 0.5 Eos # (Auto) 0.2 Baso # (Auto) 0.0 Abs Immat Gran (auto) 0.09 H Absolute Neuts (auto) 9.8 H Absolute Nucleated RBC 0.000 Nucleated RBC % 0.0 Puncture Site ABG pH ABG pCO2 ABG pO2 ABG PO2/FiO2 Ratio ABG HCO3 ABG O2 Saturation ABG O2 Content ABG Base Excess A-a Gradient Oxyhemoglobin Total Hemoglobin O2 Delivery Device O2 Liters/Min Minute Volume Vent Rate Vent Mode FiO2 Tidal Volume PEEP Peak Inspir Pressure Pressure Support Sodium 144 Potassium 4.0 Chloride 103 Carbon Dioxide 36 H Anion Gap 5 BUN 42 H Creatinine 0.60 L Estim Creat Clear Calc 107 Estimated GFR > 60 Glucose 131 H POC Capillary Glucose 134 H Calcium 8.9 Phosphorus 2.8 Magnesium 2.4 H Total Bilirubin 0.8 AST 33 ALT 59 H Alkaline Phosphatase 106 Total Protein 7.0 Albumin 3.5 Quality VTE Prophylaxis VTE prophylaxis: pharmacologic ordered
[2024-01-06] MEDS: amLODIPine BESYLATE 5 MG TABLET FEED TUBE (10:23)
[2024-01-06] MEDS: METOCLOPRAMIDE HCL 10 MG TABLET PO ×2 (10:23→17:57)
[2024-01-06] MEDS: ALPRAZolam (*CRX) 0.25 MG TABLET 0.125 MG PO ×2 (10:24→18:09)
--- NOTE | 2024-01-06 10:55 | PCFNICU ---
Addendum entered by Megha Burrell, MEI, LDN 01/06/24 11:07: Amended to add: Stop Prosource TF supplement Original Note: ICU Rounding Note: Pt current nutrition is Vital 1.2 @ 60 ml/h via PEG. Prosouce 1x per day. Total 1664 kcal, 119 g protein, 1070 ml free water. Nutrition recommendation: Modify tube feeding: Jevity 1.5 @ 20 ml/h to start. Advance 10 ml q 4 hours until goal is reached. Goal rate: Jevity 1.5 @ 50 ml/h to provide 1650 kcal, 69 g protein, 836 ml free water Last recorded weight is 79.92 kg. Bowel Motility: +1 BM 01/06/24 Labs Reviewed: Hgb 13.0, Hct 39.7, BUN 42, Cre 0.6, Glu 131 Meds Noted: No sedation. Reglan is added. Zofran, protonix, novolog, zosyn Skin: No skin issues Additional Notes: Recalculate EER as pt is now off vent: 25 kcal/zr=3495 kcal. Protein 1-1.2 g/kg=80-96 g/day. Fluid 1 ml/fofm=4432 ml/day. Pt had some vomiting. Reglan to be given for tolerance. Discussed with pt's significant other that he was having trouble tolerating Nutren 2.0 bolus at home; he was prescribed 5 cans a day but would often only get 4. He would give the bolus over 1 hour. This suggests he was not tolerating Nutren 2.0 so we will trial a continuous feeding of Jevity 1.5 @ 20 ml/h to advance to goal rate of 50 ml/h. May advance further to better meet estimated needs when goal rate is being tolerated well. When discharging, will make recommendations for order change if needed. Following daily in ICU rounds. Monitoring tube feeding tolerance, labs, weights, bowel movements, plan of care Follow up Tuesdays and Fridays. Daily in rounds.
--- NOTE | 2024-01-06 11:07 | PCDIET ---
Tube feeding recommendation: Modify tube feeding: Jevity 1.5 @ 20 ml/h to start. Advance 10 ml q 4 hours until goal is reached. Goal rate: Jevity 1.5 @ 50 ml/h to provide 1650 kcal, 69 g protein, 836 ml free water. Stop Prosource.
[2024-01-06 12:52] LABS: Glucose Point of Care 129 mg/dl (65-105)
[2024-01-06] MEDS: SUCRALFATE SUSP 100 MG/ML 10 ML UDC 1000 MG PO (15:13)
--- NOTE | 2024-01-06 17:10 | PC.NURSE ---
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 This RN addressed patient/family questions and concerns regarding his continued nausea and continued concern for aspiration despite HOB being elevated, tube feeds being paused, and beginning regalin this AM. The patient and his discussed the possibility of having an elective tracheostomy to secure an airway and reduce the incidences of aspiration pneumonia and would like to speak to a provider about the risks and benefits if this is even an option. Instructed them to discuss this with the provider in the morning. Primary RN made aware of discussion
[2024-01-06 18:07] LABS: Glucose Point of Care 143 mg/dl (65-105)
--- NOTE | 2024-01-06 19:50 | PC.NURSE ---
Patient transferred to room 231. Report given to Pravin Lin RN. [facility] All Belongings gathered.
[2024-01-07] VITALS (19 sets, daily range): BP systolic 133–160; BP diastolic 80–98; PULSE 85–103; RESP 16–20; TEMP 36.6–37.1; O2SAT 96–100
[2024-01-07 00:05] LABS: Glucose Point of Care 126 mg/dl (65-105)
[2024-01-07] MEDS: PIPERACILLIN/TAZ 4.5G/NS 100ML 4.5 GM/100 ML BAG IVPB ×5 (00:18→23:01)
[2024-01-07] MEDS: diazePAM (*CRX) 10 MG TABLET 20 MG PO ×2 (00:18→23:00)
[2024-01-07] MEDS: METOCLOPRAMIDE HCL 10 MG TABLET PO ×5 (00:18→23:00)
[2024-01-07 05:15] LABS: Basophils Percent Auto 0.1 % (0.2-1.2); Hematocrit 39.2 % (42.0-52.0); Hemoglobin 12.5 g/dL (14.0-18.0); Immature Granulocyte Absolute 0.13 K/mm3 (0.00-0.031); Immature Granulocyte Percent A 0.8 % (0-0.5); Lymphocytes Absolute Auto 0.59 K/mm3 (0.9-3.2); Lymphocytes Percent Auto 3.6 % (18.3-44.2); Mean Corpuscular HGB Conc 31.9 g/dl (32-36); Mean Corpuscular Hemoglobin 31.7 pg (26-34); Mean Corpuscular Volume 99.5 fl (80-100); Mean Platelet Volume 12.2 fl (7.4-10.4); Monocytes Absolute Auto 0.5 K/mm3 (0.1-0.6); Monocytes Percent Auto 3.1 % (2.6-8.5); Neutrophils Percent Auto 92.4 % (45.5-73.1); Platelet Count Result 238 k/mm3 (150-375); Red Blood Count 3.94 M/mm3 (4.6-6.20); Red Cell Distribution Width 13.9 % (11.5-14.5); White Blood Count 16.3 K/mm3 (4.5-10.0)
[2024-01-07 05:28] LABS: Alanine Aminotransferase 50 U/L (6-50); Albumin Level 3.5 g/dL (3.5-5.1); Alkaline Phosphatase 110 U/L (38-126); Anion Gap 6 mmol/L (4-12); Aspartate Amino Transferase 28 U/L (17-59); Bilirubin,Total 1.2 mg/dL (0.2-1.3); Blood Urea Nitrogen 41 mg/dL (9-20); Calcium 8.9 mg/dL (8.4-10.2); Carbon Dioxide 33 mmol/L (22-30); Chloride 106 mmol/L (98-107); Estimated CRCL calculation 101 ml/min; Estimated Glomerular Filt Rate > 60; Glucose 111 mg/dL (65-110); Magnesium 2.6 mg/dL (1.6-2.3); Phosphorus 2.9 mg/dL (2.5-4.5); Potassium 3.5 mmol/L (3.4-5.0); Sodium 145 mmol/L (137-145)
[2024-01-07] MEDS: IPRATROPIUM 0.5 MG/ALBUTEROL SULFATE 2.5 MG AMPUL.NEB 3 ML INHALATION ×3 (08:36→20:06)
[2024-01-07] MEDS: PANTOPRAZOLE SODIUM IV 40 MG VIAL IV PUSH (08:57)
[2024-01-07] MEDS: amLODIPine BESYLATE 5 MG TABLET FEED TUBE (08:57)
[2024-01-07] MEDS: ENOXAPARIN 40 MG/0.4 ML SYRINGE SUB-Q (08:57)
[2024-01-07] MEDS: polyethylene glycoL 3350 17 GM POWD.PACK PO (08:57)
--- NOTE | 2024-01-07 11:46 | PCNFU ---
Nutrition Follow-Up Complete: Increased protein energy needs related to mechanical ventilation as evidenced by need for full tube feeding - Now resolved Pt is not longer vented. Tube feeds changed to Jevity 1.5 Goal:Meet estimated nutrition needs via tube feeding Pt current nutrition is Jevity 1.5 @ 20ml to advance to goal rate of 50ml/hr. Nutrition recommendation: Increase goal rate to 70ml/hr and increase flushes to 150ml q hrs Last recorded weight is 73.4 kg. Bowel Motility: +BM 01/06 Labs Reviewed: Hgb:12.5, HCT:39.2, BUN:41, Cr:0.6, Glu:111 Meds Noted: zofran, protonix, novolog Skin: WNL Additional Notes: Pt restarted on tube feeds. Jevity 1.5 running at 20ml/hr with a goal rate of 50ml/hr with 30ml flushes q 4 hrs. This will provide 1650kcals, 69g protein, 1016ml free water. Recommend to increase goal rate to 70ml/hr and increase flushes to 150ml q 4hrs to provide 2310kcals, 98g protein, 2070ml free water over 22 hrs. This is closer to what his home tube feed orders were supposed to be providing. Noted Pt and stated pt was often not receiving full dose of tube feeds due to tolerance and having to take bolus feeds so slow. Recommend to continue with continuous feeds for better tolerance and to ensure pt receives full dose daily over 24hrs. Monitoring tube feeding tolerance, labs, weights, bowel movements, plan of care Follow up Tuesdays and Fridays. Daily in rounds
[2024-01-07 11:52] LABS: Glucose Point of Care 126 mg/dl (65-105)
[2024-01-07 17:57] LABS: Glucose Point of Care 121 mg/dl (65-105)
--- NOTE | 2024-01-07 18:08 | WPDPN ---
Progress Note: A&P Assessment and Plan (1) Acute respiratory failure: Code(s): J96.00 - Acute respiratory failure, unspecified whether with hypoxia or hypercapnia Status: Acute Assessment and Plan: acute respiratory failure secondary to aspiration pneumonia CT chest Reviewed chest x-ray reviewed. ABG reviewed extubated today 01/01/24 Lasix IV discontinued Treatment of pneumonia as below (2) Septic shock: Code(s): A41.9 - Sepsis, unspecified organism; R65.21 - Severe sepsis with septic shock Status: Acute Assessment and Plan: septic shock secondary to aspiration pneumonia. 12/29 improved with decreased vasopressor requirement. Patient is now off of vasopressin epinephrine drip and only on Levophed. patient weaned off Levophed. Off of all IV fluids. s/p stress dose hydrocortisone blood and sputum culture sent and pending continue empiric Zosyn. discontinued vancomycin (3) Nausea & vomiting: Code(s): R11.2 - Nausea with vomiting, unspecified Status: Acute Assessment and Plan: currently sedated. Zofran ordered. continue tube feeding (4) Aspiration pneumonia: Qualifiers: Aspiration pneumonia type: unspecified Laterality: unspecified laterality Lung location: unspecified part of lung Qualified Code(s): J69.0 - Pneumonitis due to inhalation of food and vomit Code(s): J69.0 - Pneumonitis due to inhalation of food and vomit Status: Acute Assessment and Plan: see above (5) Hypertension: Code(s): I10 - Essential (primary) hypertension Status: Acute Assessment and Plan: blood pressure is now elevated. Will give IV Lasix 40 mg. We give p.r.n. labetalol and hydralazine. If stays elevated will add p.o. antihypertensive. Plan DVT prophylaxis - Lovenox Stress ulcer prophylaxis - PPI Nutrition - advance to pO diet as tolerated Code Status - Full Code Patient with history of recurrent aspiration resulting in pneumonia presented with a respiratory distress and was intubated admitted to ICU, patient was extubated and was reintubated and again extubated on January 04, currently off ventilator and on 3 L nasal cannula, patient with history of esophageal cancer status post surgery has difficulty with communication and history of recurrent aspiration. Today patient was able to sit in the chair, patient's is present and provides history and review of symptom, patient will continue his antibiotics and last dose is tomorrow. will have PT/OT evaluate the patient patient will benefit going to [facility] before going home. Subjective Date/time seen: 01/07/24 18:08 Interval history: Patient with history of recurrent aspiration resulting in pneumonia presented with a respiratory distress and was intubated admitted to ICU, patient was extubated and was reintubated and again extubated on January 04, currently off ventilator and on 3 L nasal cannula, patient with history of esophageal cancer status post surgery has difficulty with communication and history of recurrent aspiration. Today patient was able to sit in the chair, patient's is present and provides history and review of symptom, patient will continue his antibiotics and last dose is tomorrow. will have PT/OT evaluate the patient patient will benefit going to [facility] before going home. Review of Systems Review of Systems: ROS unobtainable: Yes unobtainable due to medical condition Exam Narrative: Appears chronically ill Patient is comfortable, NAD HEENT: eyes are clear and none icteric LUNGS:CTA HEART: RR S1S2 ABD: BS+, Soft and nontender Lower extremities: no edema SKIN: nonjaundiced Neuro: grossly intact. Objective Data Vital Signs Vital Signs: Vital Signs - 24 hr 01/06/24 20:00 01/06/24 20:00 01/06/24 20:00 Temperature 37.6 C Pulse Rate 95 95 95 Respiratory Rate 28 H Blood Pressure 137/79 Pulse Oximetry 94 94 Pulse Oximetry [With Activity During Therapy Session] Oxygen Delivery Nasal Cannula Oxygen Flow Rate 3 Fraction of Inspired Oxygen 40 01/06/24 21:19 01/06/24 21:21 01/06/24 21:33 Temperature Pulse Rate 93 92 94 Respiratory Rate 16 16 16 Blood Pressure Pulse Oximetry 93 Pulse Oximetry [With Activity During Therapy Session] Oxygen Delivery Nasal Cannula Oxygen Flow Rate 3 Fraction of Inspired Oxygen 01/06/24 22:00 01/06/24 23:57 01/07/24 00:00 Temperature 36.8 C Pulse Rate 92 93 93 Respiratory Rate 20 20 Blood Pressure 137/79 Pulse Oximetry 98 98 Pulse Oximetry [With Activity During Therapy Session] Oxygen Delivery Nasal Cannula Oxygen Flow Rate 3 Fraction of Inspired Oxygen 40 01/07/24 00:00 01/07/24 04:00 01/07/24 04:00 Temperature 36.7 C Pulse Rate 93 93 93 Respiratory Rate 20 20 Blood Pressure 160/88 H Pulse Oximetry 99 99 Pulse Oximetry [With Activity During Therapy Session] Oxygen Delivery Nasal Cannula Oxygen Flow Rate 3 Fraction of Inspired Oxygen 40 01/07/24 02:00 01/07/24 04:00 01/07/24 06:00 Temperature Pulse Rate 91 88 92 Respiratory Rate Blood Pressure Pulse Oximetry Pulse Oximetry [With Activity During Therapy Session] Oxygen Delivery Oxygen Flow Rate Fraction of Inspired Oxygen 01/07/24 07:34 01/07/24 08:39 01/07/24 08:39 Temperature 37.1 C Pulse Rate 86 85 Respiratory Rate 16 18 Blood Pressure 147/83 H Pulse Oximetry 97 97 Pulse Oximetry [With Activity During Therapy Session] Oxygen Delivery Nasal Cannula Oxygen Flow Rate 3 Fraction of Inspired Oxygen 01/07/24 08:47 01/07/24 10:03 01/07/24 08:00 Temperature Pulse Rate 92 90 Respiratory Rate 18 Blood Pressure Pulse Oximetry Pulse Oximetry [With Activity During Therapy Session] 96 Oxygen Delivery Nasal Cannula Oxygen Flow Rate 3 Fraction of Inspired Oxygen 01/07/24 10:00 01/07/24 11:41 01/07/24 12:00 Temperature 36.7 C Pulse Rate 93 95 95 Respiratory Rate 20 Blood Pressure 157/93 H Pulse Oximetry 100 Pulse Oximetry [With Activity During Therapy Session] Oxygen Delivery Oxygen Flow Rate Fraction of Inspired Oxygen 01/07/24 14:20 01/07/24 14:33 01/07/24 15:44 Temperature 36.6 C Pulse Rate 93 91 103 H Respiratory Rate 18 18 20 Blood Pressure 133/80 Pulse Oximetry 98 Pulse Oximetry [With Activity During Therapy Session] Oxygen Delivery Oxygen Flow Rate Fraction of Inspired Oxygen Intake/Output Intake/Output: Intake & Output 01/04/24 01/05/24 01/06/24 01/07/24 23:59 23:59 23:59 23:59 Intake Total 2466.1 2235.7 938 420 Output Total 3050 2150 2700 850 Balance -583.9 85.7 -9232 -430 Meds/Results Medications: Active Medications Generic Name Dose Route Start Last Admin Trade Name Freq PRN Reason Stop Dose Admin Acetaminophen 650 mg 01/04/24 10:10 01/04/24 11:44 Acetaminophen Elixir 325 Mg/10.15 Ml Udc PO 650 mg Q6H PRN Administration Mild Pain (1-3) or Fever Albuterol/Ipratropium 3 ml 01/03/24 08:55 01/07/24 14:20 Ipratropium 0.5 Mg/Albuterol Sulfate 2.5 Mg Ampul.Neb 3 Ml INHALATION 3 ml Q6HRT GELA Administration Alprazolam 0.125 mg 01/06/24 07:29 01/06/24 18:09 Alprazolam (*Crx) 0.25 Mg Tablet PO 0.125 mg Q8H PRN Administration Anxiety Amlodipine Besylate 5 mg 01/06/24 09:00 01/07/24 08:57 Amlodipine Besylate 5 Mg Tablet FEED TUBE 5 mg DAILY GELA Administration Bisacodyl 10 mg 12/30/23 08:09 Bisacodyl 10 Mg Suppository RECTAL QAM PRN Constipation Dextrose 12.5 gm 12/29/23 08:21 Dextrose 50% 25 Gm/50 Ml Syringe IV PUSH PRN PRN Hypoglycemia Protocol Diazepam 20 mg 01/06/24 23:45 01/07/24 00:18 Diazepam (*Crx) 10 Mg Tablet PO 20 mg HS GELA Administration Enoxaparin Sodium 40 mg 12/29/23 09:00 01/07/24 08:57 Enoxaparin 40 Mg/0.4 Ml Syringe SUB-Q 40 mg DAILY GELA Administration Glucagon 1 mg 12/29/23 08:21 Glucagon For Inj 1 Mg Vial IM PRN PRN Hypoglycemia Protocol Glucose 15 gm 12/29/23 08:21 Glucose Oral Gel 15 Gm Of Glucse In 37.5 Gm Tube PO PRN PRN Hypoglycemia Protocol Hydralazine HCl 10 mg 01/06/24 07:23 01/06/24 08:10 Hydralazine Hcl 20 Mg/Ml Vial IV PUSH 10 mg Q4H PRN Administration hypertension SBP > 150 mmHg Dextrose 1,000 mls @ 100 mls/hr 12/29/23 08:21 Dextrose 5% 1,000 Ml IVPB PRN PRN Hypoglycemia Protocol Piperacillin Sod/Tazobactam Sod 4.5 gm in 100 mls @ 200 mls/hr 01/03/24 18:00 01/07/24 17:52 Zosyn 4.5 Gm/Ns 100 Ml IVPB 01/08/24 23:59 200 mls/hr Q6H GELA Administration Insulin Aspart 2 - 5 units 12/29/23 12:00 01/07/24 17:56 Insulin Aspart (*Bkc) 100 Units/Ml SUB-Q Not Given Q6HR [facility] Protocol Labetalol HCl 20 mg 01/01/24 10:09 01/01/24 19:25 Labetalol Hcl Inj 100 Mg/20 Ml Vial IV PUSH 20 mg Q4H PRN Administration SBP > 160 and HR> 60 -1st choice Lansoprazole 30 mg 01/08/24 06:30 Lansoprazole Odt 30 Mg Tab.Rap.Dr FEED TUBE DAILY@0630 [facility] Metoclopramide HCl 10 mg 01/06/24 11:00 01/07/24 17:49 Metoclopramide Hcl 10 Mg Tablet PO 10 mg Q6H [facility] Administration Ondansetron HCl 4 mg 12/29/23 05:25 01/06/24 17:58 Ondansetron Inj 4 Mg/2 Ml Vial IV PUSH 4 mg Q4H PRN Administration Nausea Polyethylene Glycol 17 gm 12/29/23 09:00 01/07/24 08:57 Polyethylene Glycol 3350 17 Gm Powd.Pack PO 17 gm QAM GELA Administration Radiology Results: ITS Impressions Neck/Chest/Abdomen/Pelvis CT 12/29/23 18:24 IMPRESSION: Evaluation of the neck is limited without contrast. A neck mass is not excluded. Generalized neck edema/induration may be postsurgical or posttreatment in nature. Infection, such as cellulitis not excluded. Endotracheal tube terminates 5.6 cm above the doug, consider advancing by 1.6 cm. Pulmonary findings consistent with aspiration pneumonia. Small bilateral pleural effusions. Mediastinal lymphadenopathy. Rectal wall thickening as can be seen with proctitis. Mild fecal impaction with findings suggestive of constipation. Possible decubitus ulcer over the right buttock. Abdomen X-Ray 01/03/24 09:13 IMPRESSION: 1. Normal bowel gas pattern. 2. Airspace opacities in the mid and lower lung zones, consistent with pneumonia. Chest X-Ray 01/05/24 09:11 Impression: Right basilar pneumonia. COPD. ET tube. Labs Labs: Laboratory Results - last 24 hr 01/07/24 01/07/24 01/07/24 00:03 04:40 11:45 WBC 16.3 H RBC 3.94 L Hgb 12.5 L Hct 39.2 L MCV 99.5 MCH 31.7 MCHC 31.9 L RDW 13.9 Plt Count 238 MPV 12.2 H Immature Gran % (Auto) 0.8 H Neut % (Auto) 92.4 H Lymph % (Auto) 3.6 L [place] % (Auto) 3.1 Eos % (Auto) 0.0 Baso % (Auto) 0.1 L Lymph # (Auto) 0.59 L [place] # (Auto) 0.5 Eos # (Auto) 0.0 Baso # (Auto) 0.0 Abs Immat Gran (auto) 0.13 H Absolute Neuts (auto) 15.0 H Absolute Nucleated RBC 0.000 Nucleated RBC % 0.0 Sodium 145 Potassium 3.5 Chloride 106 Carbon Dioxide 33 H Anion Gap 6 BUN 41 H Creatinine 0.60 L Estim Creat Clear Calc 101 Estimated GFR > 60 Glucose 111 H POC Capillary Glucose 126 H 126 H Calcium 8.9 Phosphorus 2.9 Magnesium 2.6 H Total Bilirubin 1.2 AST 28 ALT 50 Alkaline Phosphatase 110 Total Protein 7.0 Albumin 3.5 01/07/24 17:55 WBC RBC Hgb Hct MCV MCH MCHC RDW Plt Count MPV Immature Gran % (Auto) Neut % (Auto) Lymph % (Auto) [place] % (Auto) Eos % (Auto) Baso % (Auto) Lymph # (Auto) [place] # (Auto) Eos # (Auto) Baso # (Auto) Abs Immat Gran (auto) Absolute Neuts (auto) Absolute Nucleated RBC Nucleated RBC % Sodium Potassium Chloride Carbon Dioxide Anion Gap BUN Creatinine Estim Creat Clear Calc Estimated GFR Glucose POC Capillary Glucose 121 H Calcium Phosphorus Magnesium Total Bilirubin AST ALT Alkaline Phosphatase Total Protein Albumin
--- NOTE | 2024-01-07 18:41 | PC.NURSE ---
This patient, Mal Akhtar, was received from IMU on 01/07/24 at 1825. Patient/family oriented to unit policies and routines
[2024-01-07] MEDS: ACETAMINOPHEN ELIXIR 325 MG/10.15 ML UDC 650 MG PO (23:01)
[2024-01-08] VITALS (13 sets, daily range): BP systolic 141–152; BP diastolic 78–93; PULSE 83–100; RESP 18–20; TEMP 36.7–37.3; O2SAT 92–96
[2024-01-08 00:29] LABS: Glucose Point of Care 153 mg/dl (65-105)
[2024-01-08] MEDS: IPRATROPIUM 0.5 MG/ALBUTEROL SULFATE 2.5 MG AMPUL.NEB 3 ML INHALATION ×4 (02:08→19:40)
[2024-01-08] MEDS: METOCLOPRAMIDE HCL 10 MG TABLET PO ×4 (05:34→22:36)
[2024-01-08] MEDS: LANSOPRAZOLE ODT 30 MG TAB.RAP.DR FEED TUBE (05:34)
[2024-01-08] MEDS: PIPERACILLIN/TAZ 4.5G/NS 100ML 4.5 GM/100 ML BAG IVPB ×3 (05:35→17:13)
[2024-01-08 06:23] LABS: Glucose Point of Care 149 mg/dl (65-105)
[2024-01-08] MEDS: ENOXAPARIN 40 MG/0.4 ML SYRINGE SUB-Q (08:07)
[2024-01-08] MEDS: amLODIPine BESYLATE 5 MG TABLET FEED TUBE (08:08)
[2024-01-08 11:56] LABS: Glucose Point of Care 146 mg/dl (65-105)
[2024-01-08 18:22] LABS: Glucose Point of Care 154 mg/dl (65-105)
--- NOTE | 2024-01-08 18:39 | WPDPN ---
Progress Note: A&P Assessment and Plan (1) Acute respiratory failure: Code(s): J96.00 - Acute respiratory failure, unspecified whether with hypoxia or hypercapnia Status: Acute Assessment and Plan: acute respiratory failure secondary to aspiration pneumonia CT chest Reviewed chest x-ray reviewed. ABG reviewed extubated today 01/01/24 Lasix IV discontinued Treatment of pneumonia as below (2) Septic shock: Code(s): A41.9 - Sepsis, unspecified organism; R65.21 - Severe sepsis with septic shock Status: Acute Assessment and Plan: septic shock secondary to aspiration pneumonia. 12/29 improved with decreased vasopressor requirement. Patient is now off of vasopressin epinephrine drip and only on Levophed. patient weaned off Levophed. Off of all IV fluids. s/p stress dose hydrocortisone blood and sputum culture sent and pending continue empiric Zosyn. discontinued vancomycin (3) Nausea & vomiting: Code(s): R11.2 - Nausea with vomiting, unspecified Status: Acute Assessment and Plan: currently sedated. Zofran ordered. continue tube feeding (4) Aspiration pneumonia: Qualifiers: Aspiration pneumonia type: unspecified Laterality: unspecified laterality Lung location: unspecified part of lung Qualified Code(s): J69.0 - Pneumonitis due to inhalation of food and vomit Code(s): J69.0 - Pneumonitis due to inhalation of food and vomit Status: Acute Assessment and Plan: see above (5) Hypertension: Code(s): I10 - Essential (primary) hypertension Status: Acute Assessment and Plan: blood pressure is now elevated. Will give IV Lasix 40 mg. We give p.r.n. labetalol and hydralazine. If stays elevated will add p.o. antihypertensive. Plan DVT prophylaxis - Lovenox Stress ulcer prophylaxis - PPI Nutrition - advance to pO diet as tolerated Code Status - Full Code Patient with history of recurrent aspiration resulting in pneumonia presented with a respiratory distress and was intubated admitted to ICU, patient was extubated and was reintubated and again extubated on January 04, currently off ventilator and on 3 L nasal cannula, patient with history of esophageal cancer status post surgery has difficulty with communication and history of recurrent aspiration. Today patient was able to sit in the chair, patient's is present and provides history and review of symptom, patient will continue his antibiotics and last dose is today. will have PT/OT evaluate the patient patient will benefit going to [facility] before going home. Subjective Date/time seen: 01/08/24 18:39 Interval history: Patient with history of recurrent aspiration resulting in pneumonia presented with a respiratory distress and was intubated admitted to ICU, patient was extubated and was reintubated and again extubated on January 04, currently off ventilator and on 3 L nasal cannula, patient with history of esophageal cancer status post surgery has difficulty with communication and history of recurrent aspiration. Today patient was able to sit in the chair, patient's is present and provides history and review of symptom, patient will continue his antibiotics and last dose is today. will have PT/OT evaluate the patient patient will benefit going to [facility] before going home. Review of Systems Review of Systems: ROS unobtainable: Yes unobtainable due to medical condition Exam Narrative: Appears chronically ill Patient is comfortable, NAD HEENT: eyes are clear and none icteric LUNGS:CTA HEART: RR S1S2 ABD: BS+, Soft and nontender Lower extremities: no edema SKIN: nonjaundiced Neuro: grossly intact. Objective Data Vital Signs Vital Signs: Vital Signs - 24 hr 01/07/24 20:06 01/07/24 20:06 01/07/24 20:00 Temperature 36.9 C Pulse Rate 91 97 Respiratory Rate 20 20 Blood Pressure 153/81 H Pulse Oximetry 96 97 Oxygen Delivery Nasal Cannula Oxygen Flow Rate 3 Fraction of Inspired Oxygen 01/07/24 20:00 01/07/24 20:15 01/08/24 02:08 Temperature Pulse Rate 93 90 Respiratory Rate 20 18 Blood Pressure Pulse Oximetry 97 Oxygen Delivery Nasal Cannula Oxygen Flow Rate 3 Fraction of Inspired Oxygen 40 01/08/24 02:16 01/08/24 06:00 01/08/24 07:15 Temperature 37.3 C Pulse Rate 89 100 84 Respiratory Rate 20 20 20 Blood Pressure 150/90 H Pulse Oximetry 95 96 Oxygen Delivery Nasal Cannula Oxygen Flow Rate 3 Fraction of Inspired Oxygen 01/08/24 07:15 01/08/24 08:15 01/08/24 08:00 Temperature Pulse Rate 89 92 Respiratory Rate 20 20 Blood Pressure Pulse Oximetry 96 Oxygen Delivery Nasal Cannula Oxygen Flow Rate 3 Fraction of Inspired Oxygen 01/08/24 12:45 01/08/24 12:55 01/08/24 14:00 Temperature 36.7 C Pulse Rate 87 88 97 Respiratory Rate 20 20 18 Blood Pressure 152/93 H Pulse Oximetry 92 Oxygen Delivery Oxygen Flow Rate Fraction of Inspired Oxygen Intake/Output Intake/Output: Intake & Output 01/05/24 01/06/24 01/07/24 01/08/24 23:59 23:59 23:59 23:59 Intake Total 2235.7 938 520 300 Output Total 2150 2700 850 2501 Balance 85.7 -1463 -754 -6619 Meds/Results Medications: Active Medications Generic Name Dose Route Start Last Admin Trade Name Freq PRN Reason Stop Dose Admin Acetaminophen 650 mg 01/04/24 10:10 01/07/24 23:01 Acetaminophen Elixir 325 Mg/10.15 Ml Udc PO 650 mg Q6H PRN Administration Mild Pain (1-3) or Fever Albuterol/Ipratropium 3 ml 01/03/24 08:55 01/08/24 12:44 Ipratropium 0.5 Mg/Albuterol Sulfate 2.5 Mg Ampul.Neb 3 Ml INHALATION 3 ml Q6HRT GELA Administration Alprazolam 0.125 mg 01/06/24 07:29 01/06/24 18:09 Alprazolam (*Crx) 0.25 Mg Tablet PO 0.125 mg Q8H PRN Administration Anxiety Amlodipine Besylate 5 mg 01/06/24 09:00 01/08/24 08:08 Amlodipine Besylate 5 Mg Tablet FEED TUBE 5 mg DAILY GELA Administration Bisacodyl 10 mg 12/30/23 08:09 Bisacodyl 10 Mg Suppository RECTAL QAM PRN Constipation Dextrose 12.5 gm 12/29/23 08:21 Dextrose 50% 25 Gm/50 Ml Syringe IV PUSH PRN PRN Hypoglycemia Protocol Diazepam 20 mg 01/06/24 23:45 01/07/24 23:00 Diazepam (*Crx) 10 Mg Tablet PO 20 mg HS GELA Administration Enoxaparin Sodium 40 mg 12/29/23 09:00 01/08/24 08:07 Enoxaparin 40 Mg/0.4 Ml Syringe SUB-Q 40 mg DAILY GELA Administration Glucagon 1 mg 12/29/23 08:21 Glucagon For Inj 1 Mg Vial IM PRN PRN Hypoglycemia Protocol Glucose 15 gm 12/29/23 08:21 Glucose Oral Gel 15 Gm Of Glucse In 37.5 Gm Tube PO PRN PRN Hypoglycemia Protocol Hydralazine HCl 10 mg 01/06/24 07:23 01/06/24 08:10 Hydralazine Hcl 20 Mg/Ml Vial IV PUSH 10 mg Q4H PRN Administration hypertension SBP > 150 mmHg Dextrose 1,000 mls @ 100 mls/hr 12/29/23 08:21 Dextrose 5% 1,000 Ml IVPB PRN PRN Hypoglycemia Protocol Piperacillin Sod/Tazobactam Sod 4.5 gm in 100 mls @ 200 mls/hr 01/03/24 18:00 01/08/24 17:13 Zosyn 4.5 Gm/Ns 100 Ml IVPB 01/08/24 23:59 200 mls/hr Q6H [facility] Administration Insulin Aspart 2 - 5 units 12/29/23 12:00 01/08/24 18:32 Insulin Aspart (*Bkc) 100 Units/Ml SUB-Q Not Given Q6HR [facility] Protocol Labetalol HCl 20 mg 01/01/24 10:09 01/01/24 19:25 Labetalol Hcl Inj 100 Mg/20 Ml Vial IV PUSH 20 mg Q4H PRN Administration SBP > 160 and HR> 60 -1st choice Lansoprazole 30 mg 01/08/24 06:30 01/08/24 05:34 Lansoprazole Odt 30 Mg Tab.Rap.Dr FEED TUBE 30 mg DAILY@0630 [facility] Administration Metoclopramide HCl 10 mg 01/06/24 11:00 01/08/24 16:56 Metoclopramide Hcl 10 Mg Tablet PO 10 mg Q6H [facility] Administration Ondansetron HCl 4 mg 12/29/23 05:25 01/06/24 17:58 Ondansetron Inj 4 Mg/2 Ml Vial IV PUSH 4 mg Q4H PRN Administration Nausea Polyethylene Glycol 17 gm 12/29/23 09:00 01/08/24 07:54 Polyethylene Glycol 3350 17 Gm Powd.Pack PO [facility] [place] [facility] Results: ITS Impressions Neck/Chest/Abdomen/Pelvis CT 12/29/23 18:24 IMPRESSION: Evaluation of the neck is limited without contrast. A neck mass is not excluded. Generalized neck edema/induration may be postsurgical or posttreatment in nature. Infection, such as cellulitis not excluded. Endotracheal tube terminates 5.6 cm above the doug, consider advancing by 1.6 cm. Pulmonary findings consistent with aspiration pneumonia. Small bilateral pleural effusions. Mediastinal lymphadenopathy. Rectal wall thickening as can be seen with proctitis. Mild fecal impaction with findings suggestive of constipation. Possible decubitus ulcer over the right buttock. Abdomen X-Ray 01/03/24 09:13 IMPRESSION: 1. Normal bowel gas pattern. 2. Airspace opacities in the mid and lower lung zones, consistent with pneumonia. Chest X-Ray 01/05/24 09:11 Impression: Right basilar pneumonia. COPD. ET tube. Labs Labs: Laboratory Results - last 24 hr 01/08/24 01/08/24 01/08/24 00:22 05:38 11:54 POC Capillary Glucose 153 H 149 H 146 H 01/08/24 18:13 POC Capillary Glucose 154 H Quality VTE Prophylaxis VTE prophylaxis: pharmacologic ordered
[2024-01-08] MEDS: diazePAM (*CRX) 10 MG TABLET 20 MG PO (20:32)
[2024-01-09] VITALS (14 sets, daily range): BP systolic 140–171; BP diastolic 70–93; PULSE 88–100; RESP 16–20; TEMP 36.5–36.9; O2SAT 95–97
[2024-01-09 00:02] LABS: Glucose Point of Care 144 mg/dl (65-105)
[2024-01-09] MEDS: IPRATROPIUM 0.5 MG/ALBUTEROL SULFATE 2.5 MG AMPUL.NEB 3 ML INHALATION ×4 (02:41→20:31)
[2024-01-09] MEDS: METOCLOPRAMIDE HCL 10 MG TABLET PO (06:08)
[2024-01-09] MEDS: LANSOPRAZOLE ODT 30 MG TAB.RAP.DR FEED TUBE (06:08)
[2024-01-09 07:01] LABS: Glucose Point of Care 148 mg/dl (65-105)
[2024-01-09 07:59] LABS: Hematocrit 41.4 % (42.0-52.0); Hemoglobin 13.1 g/dL (14.0-18.0); Mean Corpuscular HGB Conc 31.6 g/dl (32-36); Mean Corpuscular Hemoglobin 31.9 pg (26-34); Mean Corpuscular Volume 100.7 fl (80-100); Mean Platelet Volume 11.9 fl (7.4-10.4); Platelet Count Result 274 k/mm3 (150-375); Red Blood Count 4.11 M/mm3 (4.6-6.20); Red Cell Distribution Width 14.1 % (11.5-14.5); White Blood Count 7.9 K/mm3 (4.5-10.0)
[2024-01-09 08:10] LABS: Anion Gap 4 mmol/L (4-12); Blood Urea Nitrogen 33 mg/dL (9-20); Calcium 9.3 mg/dL (8.4-10.2); Carbon Dioxide 34 mmol/L (22-30); Chloride 114 mmol/L (98-107); Estimated CRCL calculation 98 ml/min; Estimated Glomerular Filt Rate > 60; Glucose 159 mg/dL (65-110); Magnesium 2.3 mg/dL (1.6-2.3); Potassium 3.3 mmol/L (3.4-5.0); Sodium 152 mmol/L (137-145)
[2024-01-09] MEDS: amLODIPine BESYLATE 5 MG TABLET FEED TUBE (08:32)
[2024-01-09] MEDS: ENOXAPARIN 40 MG/0.4 ML SYRINGE SUB-Q (08:32)
[2024-01-09] MEDS: POTASSIUM CHLORIDE 20 MEQ PACKET (FOR LIQUID) 40 MEQ PO (10:09)
[2024-01-09 12:06] LABS: Glucose Point of Care 128 mg/dl (65-105)
--- NOTE | 2024-01-09 17:47 | WPDPN ---
Progress Note: A&P Assessment and Plan (1) Acute respiratory failure: Code(s): J96.00 - Acute respiratory failure, unspecified whether with hypoxia or hypercapnia Status: Acute Assessment and Plan: acute respiratory failure secondary to aspiration pneumonia CT chest Reviewed chest x-ray reviewed. ABG reviewed extubated today 01/01/24 Lasix IV discontinued Treatment of pneumonia as below (2) Septic shock: Code(s): A41.9 - Sepsis, unspecified organism; R65.21 - Severe sepsis with septic shock Status: Acute Assessment and Plan: septic shock secondary to aspiration pneumonia. 12/29 improved with decreased vasopressor requirement. Patient is now off of vasopressin epinephrine drip and only on Levophed. patient weaned off Levophed. Off of all IV fluids. s/p stress dose hydrocortisone blood and sputum culture sent and pending continue empiric Zosyn. discontinued vancomycin (3) Nausea & vomiting: Code(s): R11.2 - Nausea with vomiting, unspecified Status: Acute Assessment and Plan: currently sedated. Zofran ordered. continue tube feeding (4) Hypertension: Code(s): I10 - Essential (primary) hypertension Status: Acute Assessment and Plan: blood pressure is now elevated. Will give IV Lasix 40 mg. We give p.r.n. labetalol and hydralazine. If stays elevated will add p.o. antihypertensive. Plan DVT prophylaxis - Lovenox Stress ulcer prophylaxis - PPI Nutrition - advance to pO diet as tolerated Code Status - Full Code Patient with history of recurrent aspiration resulting in pneumonia presented with a respiratory distress and was intubated admitted to ICU, patient was extubated and was reintubated and again extubated on January 04, currently off ventilator and on 3 L nasal cannula, patient with history of esophageal cancer status post surgery has difficulty with communication and history of recurrent aspiration. Today patient was able to sit in the chair, patient's is present and provides history and review of symptom, patient completed his antibiotics on 01/07, today patient has cough CXR was done to further evaluate which is did not show any significant sing of pneumonia, patient sodium is elevated patient is getting 150cc flushes q6, will increase to 200cc q6 and monitor, if sodium is close to normal will discharge patient tomorrow, will have PT/OT evaluate the patient patient will benefit going to [facility] before going home. Subjective Date/time seen: 01/09/24 17:47 Interval history: Patient with history of recurrent aspiration resulting in pneumonia presented with a respiratory distress and was intubated admitted to ICU, patient was extubated and was reintubated and again extubated on January 04, currently off ventilator and on 3 L nasal cannula, patient with history of esophageal cancer status post surgery has difficulty with communication and history of recurrent aspiration. Today patient was able to sit in the chair, patient's is present and provides history and review of symptom, patient completed his antibiotics on 01/07, today patient has cough CXR was done to further evaluate which is did not show any significant sing of pneumonia, patient sodium is elevated patient is getting 150cc flushes q6, will increase to 200cc q6 and monitor, if sodium is close to normal will discharge patient tomorrow, will have PT/OT evaluate the patient patient will benefit going to [facility] before going home. Review of Systems Review of Systems: ROS unobtainable: Yes unobtainable due to medical condition Exam Narrative: Appears chronically ill Patient is comfortable, NAD HEENT: eyes are clear and none icteric LUNGS:CTA HEART: RR S1S2 ABD: BS+, Soft and nontender Lower extremities: no edema SKIN: nonjaundiced Neuro: grossly intact. Objective Data Vital Signs Vital Signs: Vital Signs - 24 hr 01/08/24 19:41 01/08/24 19:41 01/08/24 19:53 Temperature Pulse Rate 83 83 94 Respiratory Rate 20 20 Blood Pressure Pulse Oximetry 95 Oxygen Delivery Nasal Cannula Oxygen Flow Rate 3 01/08/24 21:55 01/08/24 20:00 01/09/24 02:42 Temperature 37.2 C Pulse Rate 98 93 Respiratory Rate 18 20 Blood Pressure 141/78 H Pulse Oximetry 93 93 Oxygen Delivery Nasal Cannula Oxygen Flow Rate 3 01/09/24 02:50 01/09/24 06:00 01/09/24 08:33 Temperature 36.5 C Pulse Rate 93 100 Respiratory Rate 20 20 Blood Pressure 153/92 H Pulse Oximetry 95 95 Oxygen Delivery Nasal Cannula Oxygen Flow Rate 2 01/09/24 08:33 01/09/24 08:40 01/09/24 08:00 Temperature Pulse Rate 98 99 Respiratory Rate 20 20 Blood Pressure Pulse Oximetry 95 Oxygen Delivery Nasal Cannula Oxygen Flow Rate 3 01/09/24 14:00 01/09/24 15:30 01/09/24 15:40 Temperature 36.9 C Pulse Rate 99 88 90 Respiratory Rate 16 20 20 Blood Pressure 171/93 H Pulse Oximetry 97 Oxygen Delivery Oxygen Flow Rate 01/09/24 16:53 Temperature Pulse Rate Respiratory Rate Blood Pressure 140/70 Pulse Oximetry Oxygen Delivery Oxygen Flow Rate Intake/Output Intake/Output: Intake & Output 01/06/24 01/07/24 01/08/24 01/09/24 23:59 23:59 23:59 23:59 Intake Total 938 391 528 6402 Output Total 2700 850 2501 750 Balance -5005 -330 -7784 2101 Meds/Results Medications: Active Medications Generic Name Dose Route Start Last Admin Trade Name Freq PRN Reason Stop Dose Admin Acetaminophen 650 mg 01/04/24 10:10 01/07/24 23:01 Acetaminophen Elixir 325 Mg/10.15 Ml Udc PO 650 mg Q6H PRN Administration Mild Pain (1-3) or Fever Albuterol/Ipratropium 3 ml 01/03/24 08:55 01/09/24 15:30 Ipratropium 0.5 Mg/Albuterol Sulfate 2.5 Mg Ampul.Neb 3 Ml INHALATION 3 ml Q6HRT GELA Administration Alprazolam 0.125 mg 01/06/24 07:29 01/06/24 18:09 Alprazolam (*Crx) 0.25 Mg Tablet PO 0.125 mg Q8H PRN Administration Anxiety Amlodipine Besylate 5 mg 01/06/24 09:00 01/09/24 08:32 Amlodipine Besylate 5 Mg Tablet FEED TUBE 5 mg DAILY GELA Administration Bisacodyl 10 mg 12/30/23 08:09 Bisacodyl 10 Mg Suppository RECTAL QAM PRN Constipation Dextrose 12.5 gm 12/29/23 08:21 Dextrose 50% 25 Gm/50 Ml Syringe IV PUSH PRN PRN Hypoglycemia Protocol Diazepam 20 mg 01/06/24 23:45 01/08/24 20:32 Diazepam (*Crx) 10 Mg Tablet PO 20 mg HS GELA Administration Enoxaparin Sodium 40 mg 12/29/23 09:00 01/09/24 08:32 Enoxaparin 40 Mg/0.4 Ml Syringe SUB-Q 40 mg DAILY GELA Administration Glucagon 1 mg 12/29/23 08:21 Glucagon For Inj 1 Mg Vial IM PRN PRN Hypoglycemia Protocol Glucose 15 gm 12/29/23 08:21 Glucose Oral Gel 15 Gm Of Glucse In 37.5 Gm Tube PO PRN PRN Hypoglycemia Protocol Hydralazine HCl 10 mg 01/06/24 07:23 01/06/24 08:10 Hydralazine Hcl 20 Mg/Ml Vial IV PUSH 10 mg Q4H PRN Administration hypertension SBP > 150 mmHg Dextrose 1,000 mls @ 100 mls/hr 12/29/23 08:21 Dextrose 5% 1,000 Ml IVPB PRN PRN Hypoglycemia Protocol Insulin Aspart 2 - 5 units 12/29/23 12:00 01/09/24 12:14 Insulin Aspart (*Bkc) 100 Units/Ml SUB-Q Not Given Q6HR GELA Protocol Labetalol HCl 20 mg 01/01/24 10:09 01/01/24 19:25 Labetalol Hcl Inj 100 Mg/20 Ml Vial IV PUSH 20 mg Q4H PRN Administration SBP > 160 and HR> 60 -1st choice Lansoprazole 30 mg 01/08/24 06:30 01/09/24 06:08 Lansoprazole Odt 30 Mg Tab.Rap.Dr FEED TUBE 30 mg DAILY@0630 [facility] Administration Ondansetron HCl 4 mg 12/29/23 05:25 01/06/24 17:58 Ondansetron Inj 4 Mg/2 Ml Vial IV PUSH 4 mg Q4H PRN Administration Nausea Radiology Results: ITS Impressions Neck/Chest/Abdomen/Pelvis CT 12/29/23 18:24 IMPRESSION: Evaluation of the neck is limited without contrast. A neck mass is not excluded. Generalized neck edema/induration may be postsurgical or posttreatment in nature. Infection, such as cellulitis not excluded. Endotracheal tube terminates 5.6 cm above the doug, consider advancing by 1.6 cm. Pulmonary findings consistent with aspiration pneumonia. Small bilateral pleural effusions. Mediastinal lymphadenopathy. Rectal wall thickening as can be seen with proctitis. Mild fecal impaction with findings suggestive of constipation. Possible decubitus ulcer over the right buttock. Abdomen X-Ray 01/03/24 09:13 IMPRESSION: 1. Normal bowel gas pattern. 2. Airspace opacities in the mid and lower lung zones, consistent with pneumonia. Chest X-Ray 01/09/24 11:52 Impression: Mild bibasilar haziness. Correlate for mild bibasilar pulmonary edema versus possible bibasilar pneumonia. Labs Labs: Laboratory Results - last 24 hr 01/08/24 01/08/24 01/09/24 18:13 23:56 05:56 WBC RBC Hgb Hct MCV MCH MCHC RDW Plt Count MPV Sodium Potassium Chloride Carbon Dioxide Anion Gap BUN Creatinine Estim Creat Clear Calc Estimated GFR Glucose POC Capillary Glucose 154 H 144 H 148 H Calcium Magnesium 01/09/24 01/09/24 07:14 11:27 WBC 7.9 RBC 4.11 L Hgb 13.1 L Hct 41.4 L MCV 100.7 H MCH 31.9 MCHC 31.6 L RDW 14.1 Plt Count 274 MPV 11.9 H Sodium 152 H Potassium 3.3 L Chloride 114 H Carbon Dioxide 34 H Anion Gap 4 BUN 33 H Creatinine 0.60 L Estim Creat Clear Calc 98 Estimated GFR > 60 Glucose 159 H POC Capillary Glucose 128 H Calcium 9.3 Magnesium 2.3 Quality VTE Prophylaxis VTE prophylaxis: pharmacologic ordered
[2024-01-09 19:10] LABS: Glucose Point of Care 122 mg/dl (65-105)
[2024-01-09] MEDS: diazePAM (*CRX) 10 MG TABLET 20 MG PO (22:52)
[2024-01-10] VITALS (13 sets, daily range): BP systolic 120–154; BP diastolic 75–88; PULSE 86–94; RESP 12–20; TEMP 36.4–36.9; O2SAT 93–98
[2024-01-10 00:04] LABS: Glucose Point of Care 151 mg/dl (65-105)
[2024-01-10] MEDS: LANSOPRAZOLE ODT 30 MG TAB.RAP.DR FEED TUBE (06:31)
[2024-01-10 07:10] LABS: Glucose Point of Care 137 mg/dl (65-105)
[2024-01-10 08:06] LABS: Hematocrit 45.8 % (42.0-52.0); Mean Corpuscular HGB Conc 30.6 g/dl (32-36); Mean Corpuscular Volume 104.6 fl (80-100); Mean Platelet Volume 12.1 fl (7.4-10.4); Platelet Count Result 303 k/mm3 (150-375); Red Blood Count 4.38 M/mm3 (4.6-6.20); Red Cell Distribution Width 14.3 % (11.5-14.5); White Blood Count 13.1 K/mm3 (4.5-10.0)
[2024-01-10 08:14] LABS: Anion Gap 6 mmol/L (4-12); Blood Urea Nitrogen 35 mg/dL (9-20); Calcium 9.7 mg/dL (8.4-10.2); Carbon Dioxide 39 mmol/L (22-30); Chloride 111 mmol/L (98-107); Estimated CRCL calculation 97 ml/min; Estimated Glomerular Filt Rate > 60; Glucose 123 mg/dL (65-110); Magnesium 2.4 mg/dL (1.6-2.3); Sodium 156 mmol/L (137-145)
[2024-01-10] MEDS: IPRATROPIUM 0.5 MG/ALBUTEROL SULFATE 2.5 MG AMPUL.NEB 3 ML INHALATION ×3 (08:17→20:26)
[2024-01-10] MEDS: amLODIPine BESYLATE 5 MG TABLET FEED TUBE (09:07)
[2024-01-10] MEDS: ENOXAPARIN 40 MG/0.4 ML SYRINGE SUB-Q (09:07)
--- NOTE | 2024-01-10 11:28 | PCPTNOTE ---
Attempted to see patient for PT, however patient was working with OT.
[2024-01-10 11:51] LABS: Glucose Point of Care 135 mg/dl (65-105)
--- NOTE | 2024-01-10 11:53 | PCNFU ---
Nutrition Follow-Up Complete: Increased protein energy needs related to mechanical ventilation as evidenced by need for full tube feeding - Pt no longer on vent Goal:Meet estimated nutrition needs via tube feedings Pt current nutrition is Jevity 1.5 @ 70ml/hr with 200ml flushes q 4 hrs. Nutrition recommendation: Increased flushes to 250ml Last recorded weight is 70.1 kg. Bowel Motility: +BM 01/08 Labs Reviewed: NA:156, BUN:35, Cr:0.6, Glu:137 Meds Noted: zofran, protonix, novolog Skin: WNL Additional Notes: Pt continues on Jevity 1.5, rate increased to goal rate of 70ml/hr, pt tolerating well. Spent a significant amount of time with pt and discussing tube feedings. Continuous feeds are recommended at this time for tolerance. May consider nocturnal continuous feeds with a few bolus feeds during the day once pt is moved to [facility] as pt was previously on bolus feeds and would prefer to be able to be mobile and disconnect during day hour. Recommend to continue continuous feeds as ordered at this time, increase flushes to 250ml q 4 hrs due to elevated Na. Monitoring tube feeding tolerance, labs, weights, bowel movements, plan of care Follow up Tuesdays and Fridays.
--- NOTE | 2024-01-10 14:09 | WPDPN ---
Progress Note: A&P Assessment and Plan (1) Acute respiratory failure: Code(s): J96.00 - Acute respiratory failure, unspecified whether with hypoxia or hypercapnia Status: Acute Assessment and Plan: acute respiratory failure secondary to aspiration pneumonia CT chest Reviewed chest x-ray reviewed. ABG reviewed extubated today 01/01/24 Lasix IV discontinued Treatment of pneumonia as below (2) Septic shock: Code(s): A41.9 - Sepsis, unspecified organism; R65.21 - Severe sepsis with septic shock Status: Acute Assessment and Plan: septic shock secondary to aspiration pneumonia. 12/29 improved with decreased vasopressor requirement. Patient is now off of vasopressin epinephrine drip and only on Levophed. patient weaned off Levophed. Off of all IV fluids. s/p stress dose hydrocortisone blood and sputum culture sent and pending continue empiric Zosyn. discontinued vancomycin (3) Nausea & vomiting: Code(s): R11.2 - Nausea with vomiting, unspecified Status: Acute Assessment and Plan: currently sedated. Zofran ordered. continue tube feeding (4) Hypertension: Code(s): I10 - Essential (primary) hypertension Status: Acute Assessment and Plan: blood pressure is now elevated. Will give IV Lasix 40 mg. We give p.r.n. labetalol and hydralazine. If stays elevated will add p.o. antihypertensive. Plan DVT prophylaxis - Lovenox Stress ulcer prophylaxis - PPI Nutrition - advance to pO diet as tolerated Code Status - Full Code Patient with history of recurrent aspiration resulting in pneumonia presented with a respiratory distress and was intubated admitted to ICU, patient was extubated and was reintubated and again extubated on January 04, currently off ventilator and on 3 L nasal cannula, patient with history of esophageal cancer status post surgery has difficulty with communication and history of recurrent aspiration. Today patient was able to sit in the chair, patient's is present and provides history and review of symptom, patient completed his antibiotics on 01/07, on 01/08 patient had cough CXR was done to further evaluate which is did not show any significant sign of pneumonia, patient sodium was elevated 152 on 01/08 patient was getting 150cc flushes q6, increased to 200cc q6, however today patient sodium is up to 156, discuss with mri special procedures technologist will increase flushes to 250q6 and monitor, if sodium is close to normal will discharge patient tomorrow, will have PT/OT evaluate the patient patient will benefit going to [facility] before going home.. Subjective Date/time seen: 01/10/24 14:09 Interval history: Patient with history of recurrent aspiration resulting in pneumonia presented with a respiratory distress and was intubated admitted to ICU, patient was extubated and was reintubated and again extubated on January 04, currently off ventilator and on 3 L nasal cannula, patient with history of esophageal cancer status post surgery has difficulty with communication and history of recurrent aspiration. Today patient was able to sit in the chair, patient's is present and provides history and review of symptom, patient completed his antibiotics on 01/07, on 01/08 patient had cough CXR was done to further evaluate which is did not show any significant sign of pneumonia, patient sodium was elevated 152 on 01/08 patient was getting 150cc flushes q6, increased to 200cc q6, however today patient sodium is up to 156, discuss with mri special procedures technologist will increase flushes to 250q6 and monitor, if sodium is close to normal will discharge patient tomorrow, will have PT/OT evaluate the patient patient will benefit going to [facility] before going home. Review of Systems Review of Systems: ROS unobtainable: Yes unobtainable due to medical condition Exam Narrative: Appears chronically ill Patient is comfortable, NAD HEENT: eyes are clear and none icteric LUNGS:CTA HEART: RR S1S2 ABD: BS+, Soft and nontender Lower extremities: no edema SKIN: nonjaundiced Neuro: grossly intact. Objective Data Vital Signs Vital Signs: Vital Signs - 24 hr 01/09/24 15:30 01/09/24 15:40 01/09/24 16:53 Temperature Pulse Rate 88 90 Respiratory Rate 20 20 Blood Pressure 140/70 Pulse Oximetry Oxygen Delivery Oxygen Flow Rate 01/09/24 20:32 01/09/24 20:38 01/09/24 20:49 Temperature Pulse Rate 95 91 Respiratory Rate 20 20 Blood Pressure Pulse Oximetry 96 Oxygen Delivery Nasal Cannula Oxygen Flow Rate 2.5 01/09/24 20:00 01/10/24 05:31 01/10/24 08:17 Temperature 36.4 C L Pulse Rate 86 Respiratory Rate 12 Blood Pressure 122/75 Pulse Oximetry 97 95 93 Oxygen Delivery Nasal Cannula Nasal Cannula Oxygen Flow Rate 2.5 2.5 01/10/24 08:17 01/10/24 08:30 01/10/24 08:00 Temperature Pulse Rate 92 94 Respiratory Rate 20 20 Blood Pressure Pulse Oximetry 93 Oxygen Delivery Nasal Cannula Oxygen Flow Rate 3 Intake/Output Intake/Output: Intake & Output 01/07/24 01/08/24 01/09/24 01/10/24 23:59 23:59 23:59 23:59 Intake Total 488 901 1158 1440 Output Total 850 2501 750 Balance -330 -2201 2131 1440 Meds/Results Medications: Active Medications Generic Name Dose Route Start Last Admin Trade Name Freq PRN Reason Stop Dose Admin Acetaminophen 650 mg 01/04/24 10:10 01/07/24 23:01 Acetaminophen Elixir 325 Mg/10.15 Ml Udc PO 650 mg Q6H PRN Administration Mild Pain (1-3) or Fever Albuterol/Ipratropium 3 ml 01/03/24 08:55 01/10/24 08:17 Ipratropium 0.5 Mg/Albuterol Sulfate 2.5 Mg Ampul.Neb 3 Ml INHALATION 3 ml Q6HRT GELA Administration Alprazolam 0.125 mg 01/06/24 07:29 01/06/24 18:09 Alprazolam (*Crx) 0.25 Mg Tablet PO 0.125 mg Q8H PRN Administration Anxiety Amlodipine Besylate 5 mg 01/06/24 09:00 01/10/24 09:07 Amlodipine Besylate 5 Mg Tablet FEED TUBE 5 mg DAILY GELA Administration Bisacodyl 10 mg 12/30/23 08:09 Bisacodyl 10 Mg Suppository RECTAL QAM PRN Constipation Dextrose 12.5 gm 12/29/23 08:21 Dextrose 50% 25 Gm/50 Ml Syringe IV PUSH PRN PRN Hypoglycemia Protocol Diazepam 20 mg 01/06/24 23:45 01/09/24 22:52 Diazepam (*Crx) 10 Mg Tablet PO 20 mg HS GELA Administration Enoxaparin Sodium 40 mg 12/29/23 09:00 01/10/24 09:07 Enoxaparin 40 Mg/0.4 Ml Syringe SUB-Q 40 mg DAILY GELA Administration Glucagon 1 mg 12/29/23 08:21 Glucagon For Inj 1 Mg Vial IM PRN PRN Hypoglycemia Protocol Glucose 15 gm 12/29/23 08:21 Glucose Oral Gel 15 Gm Of Glucse In 37.5 Gm Tube PO PRN PRN Hypoglycemia Protocol Hydralazine HCl 10 mg 01/06/24 07:23 01/06/24 08:10 Hydralazine Hcl 20 Mg/Ml Vial IV PUSH 10 mg Q4H PRN Administration hypertension SBP > 150 mmHg Dextrose 1,000 mls @ 100 mls/hr 12/29/23 08:21 Dextrose 5% 1,000 Ml IVPB PRN PRN Hypoglycemia Protocol Insulin Aspart 2 - 5 units 12/29/23 12:00 01/10/24 11:57 Insulin Aspart (*Bkc) 100 Units/Ml SUB-Q Not Given Q6HR [facility] Protocol Labetalol HCl 20 mg 01/01/24 10:09 01/01/24 19:25 Labetalol Hcl Inj 100 Mg/20 Ml Vial IV PUSH 20 mg Q4H PRN Administration SBP > 160 and HR> 60 -1st choice Lansoprazole 30 mg 01/08/24 06:30 01/10/24 06:31 Lansoprazole Odt 30 Mg Tab.Rap.Dr FEED TUBE 30 mg DAILY@0630 [facility] Administration Ondansetron HCl 4 mg 12/29/23 05:25 01/06/24 17:58 Ondansetron Inj 4 Mg/2 Ml Vial IV PUSH 4 mg Q4H PRN Administration Nausea Radiology Results: ITS Impressions Neck/Chest/Abdomen/Pelvis CT 12/29/23 18:24 IMPRESSION: Evaluation of the neck is limited without contrast. A neck mass is not excluded. Generalized neck edema/induration may be postsurgical or posttreatment in nature. Infection, such as cellulitis not excluded. Endotracheal tube terminates 5.6 cm above the doug, consider advancing by 1.6 cm. Pulmonary findings consistent with aspiration pneumonia. Small bilateral pleural effusions. Mediastinal lymphadenopathy. Rectal wall thickening as can be seen with proctitis. Mild fecal impaction with findings suggestive of constipation. Possible decubitus ulcer over the right buttock. Abdomen X-Ray 01/03/24 09:13 IMPRESSION: 1. Normal bowel gas pattern. 2. Airspace opacities in the mid and lower lung zones, consistent with pneumonia. Chest X-Ray 01/09/24 11:52 Impression: Mild bibasilar haziness. Correlate for mild bibasilar pulmonary edema versus possible bibasilar pneumonia. Labs Labs: Laboratory Results - last 24 hr 01/09/24 01/09/24 01/10/24 19:08 23:54 07:08 WBC RBC Hgb Hct MCV MCH MCHC RDW Plt Count MPV Sodium Potassium Chloride Carbon Dioxide Anion Gap BUN Creatinine Estim Creat Clear Calc Estimated GFR Glucose POC Capillary Glucose 122 H 151 H 137 H Calcium Magnesium 01/10/24 01/10/24 07:20 11:45 WBC 13.1 H RBC 4.38 L Hgb 14.0 Hct 45.8 MCV 104.6 H MCH 32.0 MCHC 30.6 L RDW 14.3 Plt Count 303 MPV 12.1 H Sodium 156 H Potassium 4.0 Chloride 111 H Carbon Dioxide 39 H Anion Gap 6 BUN 35 H Creatinine 0.60 L Estim Creat Clear Calc 97 Estimated GFR > 60 Glucose 123 H POC Capillary Glucose 135 H Calcium 9.7 Magnesium 2.4 H Quality VTE Prophylaxis VTE prophylaxis: pharmacologic ordered
[2024-01-10 17:50] LABS: Glucose Point of Care 109 mg/dl (65-105)
[2024-01-10] MEDS: diazePAM (*CRX) 10 MG TABLET 20 MG PO (22:11)
[2024-01-11] VITALS (9 sets, daily range): BP systolic 108–127; BP diastolic 67–70; PULSE 84–90; RESP 14–20; TEMP 36.4–36.9; O2SAT 95–96
[2024-01-11 00:15] LABS: Glucose Point of Care 107 mg/dl (65-105)
[2024-01-11] MEDS: LANSOPRAZOLE ODT 30 MG TAB.RAP.DR FEED TUBE (05:59)
[2024-01-11 06:22] LABS: Hematocrit 38.1 % (42.0-52.0); Hemoglobin 11.7 g/dL (14.0-18.0); Mean Corpuscular HGB Conc 30.7 g/dl (32-36); Mean Corpuscular Hemoglobin 31.9 pg (26-34); Mean Corpuscular Volume 103.8 fl (80-100); Mean Platelet Volume 12.1 fl (7.4-10.4); Platelet Count Result 268 k/mm3 (150-375); Red Blood Count 3.67 M/mm3 (4.6-6.20); Red Cell Distribution Width 14.1 % (11.5-14.5); White Blood Count 12.4 K/mm3 (4.5-10.0)
[2024-01-11] MEDS: IPRATROPIUM 0.5 MG/ALBUTEROL SULFATE 2.5 MG AMPUL.NEB 3 ML INHALATION ×2 (06:32→15:13)
[2024-01-11 06:38] LABS: Anion Gap 2 mmol/L (4-12); Blood Urea Nitrogen 34 mg/dL (9-20); Carbon Dioxide 34 mmol/L (22-30); Chloride 114 mmol/L (98-107); Estimated CRCL calculation 84 ml/min; Estimated Glomerular Filt Rate > 60; Glucose 115 mg/dL (65-110); Magnesium 2.3 mg/dL (1.6-2.3); Potassium 3.8 mmol/L (3.4-5.0); Sodium 150 mmol/L (137-145)
[2024-01-11 07:30] LABS: Glucose Point of Care 138 mg/dl (65-105)
[2024-01-11] MEDS: ENOXAPARIN 40 MG/0.4 ML SYRINGE SUB-Q (09:51)
[2024-01-11] MEDS: amLODIPine BESYLATE 5 MG TABLET FEED TUBE (09:51)
[2024-01-11 12:23] LABS: Glucose Point of Care 127 mg/dl (65-105)
[2024-01-11 14:10] LABS: Toxigenic C. Diff NEGATIVE (NEGATIVE)
--- NOTE | 2024-01-11 15:44 | PM.IMPN ---
Progress Note: A&P Assessment and Plan (1) Acute respiratory failure: Code(s): J96.00 - Acute respiratory failure, unspecified whether with hypoxia or hypercapnia Status: Acute Assessment and Plan: acute respiratory failure secondary to aspiration pneumonia CT chest Reviewed chest x-ray reviewed. ABG reviewed extubated today 01/01/24 Lasix IV discontinued Treatment of pneumonia as below (2) Septic shock: Code(s): A41.9 - Sepsis, unspecified organism; R65.21 - Severe sepsis with septic shock Status: Acute Assessment and Plan: septic shock secondary to aspiration pneumonia. 12/29 improved with decreased vasopressor requirement. Patient is now off of vasopressin epinephrine drip and only on Levophed. patient weaned off Levophed. Off of all IV fluids. s/p stress dose hydrocortisone blood and sputum culture sent and pending continue empiric Zosyn. discontinued vancomycin (3) Nausea & vomiting: Code(s): R11.2 - Nausea with vomiting, unspecified Status: Acute Assessment and Plan: Zofran ordered. continue tube feeding (4) Hypertension: Code(s): I10 - Essential (primary) hypertension Status: Acute Assessment and Plan: blood pressure is now elevated. Will give IV Lasix 40 mg. We give p.r.n. labetalol and hydralazine. If stays elevated will add p.o. antihypertensive. Plan DVT prophylaxis - Lovenox Stress ulcer prophylaxis - PPI Nutrition - advance to pO diet as tolerated Code Status - Full Code Patient with history of recurrent aspiration resulting in pneumonia presented with a respiratory distress and was intubated admitted to ICU, patient was extubated and was reintubated and again extubated on January 04, currently off ventilator and on 3 L nasal cannula, patient with history of esophageal cancer status post surgery has difficulty with communication and history of recurrent aspiration. Today patient was able to sit in the chair, patient's is present and provides history and review of symptom, patient completed his antibiotics on 01/07, on 01/08 patient had cough CXR was done to further evaluate which is did not show any significant sign of pneumonia, patient sodium was elevated 152 on 01/08 patient was getting 150cc flushes q6, increased to 200cc q6, however today patient sodium is up to 156, discuss with park services specialist will increase flushes to 250q6 and monitor. Today patient's sodium has been trending down to 150. If sodium is close to normal will discharge patient tomorrow, will have PT/OT evaluate the patient patient will benefit going to [facility] before going home. Subjective Date/time seen: 01/11/24 15:44 Interval history: Patient sodium is trending down. His flushes has been increased to 250 from 150 q.6 hours. Once the sodium is normalized patient will be going to [facility]. Review of Systems Review of Systems: All systems reviewed & are unremarkable except as noted in HPI and below ROS unobtainable: Yes unobtainable due to endotracheal tube, unobtainable due to medical condition and unobtainable due to mental status Exam Narrative: Appears chronically ill Patient is comfortable, NAD HEENT: eyes are clear and none icteric LUNGS:CTA HEART: RR S1S2 ABD: BS+, Soft and nontender Lower extremities: no edema SKIN: nonjaundiced Neuro: grossly intact. Objective Data Vital Signs Vital Signs: Vital Signs - 24 hr 01/10/24 20:27 01/10/24 20:35 01/10/24 20:38 Temperature Pulse Rate 89 94 Respiratory Rate 20 20 Blood Pressure Pulse Oximetry 95 Oxygen Delivery Oxygen Flow Rate 2.0 Fraction of Inspired Oxygen 01/10/24 20:00 01/10/24 21:27 01/11/24 06:33 Temperature 98.5 F Pulse Rate 94 84 Respiratory Rate 20 20 Blood Pressure 154/88 H Pulse Oximetry 95 98 Oxygen Delivery Nasal Cannula Oxygen Flow Rate 2.5 Fraction of Inspired Oxygen 01/11/24 06:42 01/11/24 06:00 01/11/24 14:00 Temperature 98.4 F 97.7 F Pulse Rate 88 90 84 Respiratory Rate 20 20 20 Blood Pressure 127/70 114/67 Pulse Oximetry 95 96 Oxygen Delivery Oxygen Flow Rate Fraction of Inspired Oxygen 01/11/24 15:13 01/11/24 15:13 01/11/24 15:21 Temperature Pulse Rate 85 89 Respiratory Rate 20 20 Blood Pressure Pulse Oximetry 95 Oxygen Delivery Nasal Cannula Oxygen Flow Rate 2.5 Fraction of Inspired Oxygen 30 Intake/Output Intake/Output: Intake & Output 01/08/24 01/09/24 01/10/24 01/11/24 23:59 23:59 23:59 23:59 Intake Total 300 2881 1440 1760 Output Total 2501 750 1350 Balance -2201 2131 1440 410 Meds/Results Medications: Active Medications Generic Name Dose Route Start Last Admin Trade Name Freq PRN Reason Stop Dose Admin Acetaminophen 650 mg 01/04/24 10:10 01/07/24 23:01 Acetaminophen Elixir 325 Mg/10.15 Ml Udc PO 650 mg Q6H PRN Administration Mild Pain (1-3) or Fever Albuterol/Ipratropium 3 ml 01/03/24 08:55 01/11/24 15:13 Ipratropium 0.5 Mg/Albuterol Sulfate 2.5 Mg Ampul.Neb 3 Ml INHALATION 3 ml Q6HRT GELA Administration Alprazolam 0.125 mg 01/06/24 07:29 01/06/24 18:09 Alprazolam (*Crx) 0.25 Mg Tablet PO 0.125 mg Q8H PRN Administration Anxiety Amlodipine Besylate 5 mg 01/06/24 09:00 01/11/24 09:51 Amlodipine Besylate 5 Mg Tablet FEED TUBE 5 mg DAILY GELA Administration Bisacodyl 10 mg 12/30/23 08:09 Bisacodyl 10 Mg Suppository RECTAL QAM PRN Constipation Dextrose 12.5 gm 12/29/23 08:21 Dextrose 50% 25 Gm/50 Ml Syringe IV PUSH PRN PRN Hypoglycemia Protocol Diazepam 20 mg 01/06/24 23:45 01/10/24 22:11 Diazepam (*Crx) 10 Mg Tablet PO 20 mg HS GELA Administration Enoxaparin Sodium 40 mg 12/29/23 09:00 01/11/24 09:51 Enoxaparin 40 Mg/0.4 Ml Syringe SUB-Q 40 mg DAILY GELA Administration Glucagon 1 mg 12/29/23 08:21 Glucagon For Inj 1 Mg Vial IM PRN PRN Hypoglycemia Protocol Glucose 15 gm 12/29/23 08:21 Glucose Oral Gel 15 Gm Of Glucse In 37.5 Gm Tube PO PRN PRN Hypoglycemia Protocol Hydralazine HCl 10 mg 01/06/24 07:23 01/06/24 08:10 Hydralazine Hcl 20 Mg/Ml Vial IV PUSH 10 mg Q4H PRN Administration hypertension SBP > 150 mmHg Dextrose 1,000 mls @ 100 mls/hr 12/29/23 08:21 Dextrose 5% 1,000 Ml IVPB PRN PRN Hypoglycemia Protocol Insulin Aspart 2 - 5 units 12/29/23 12:00 01/11/24 12:37 Insulin Aspart (*Bkc) 100 Units/Ml SUB-Q Not Given Q6HR [facility] Protocol Labetalol HCl 20 mg 01/01/24 10:09 01/01/24 19:25 Labetalol Hcl Inj 100 Mg/20 Ml Vial IV PUSH 20 mg Q4H PRN Administration SBP > 160 and HR> 60 -1st choice Lansoprazole 30 mg 01/08/24 06:30 01/11/24 05:59 Lansoprazole Odt 30 Mg Tab.Rap.Dr FEED TUBE 30 mg DAILY@0630 [facility] Administration Ondansetron HCl 4 mg 12/29/23 05:25 01/06/24 17:58 Ondansetron Inj 4 Mg/2 Ml Vial IV PUSH 4 mg Q4H PRN Administration Nausea Radiology Results: ITS Impressions Neck/Chest/Abdomen/Pelvis CT 12/29/23 18:24 IMPRESSION: Evaluation of the neck is limited without contrast. A neck mass is not excluded. Generalized neck edema/induration may be postsurgical or posttreatment in nature. Infection, such as cellulitis not excluded. Endotracheal tube terminates 5.6 cm above the doug, consider advancing by 1.6 cm. Pulmonary findings consistent with aspiration pneumonia. Small bilateral pleural effusions. Mediastinal lymphadenopathy. Rectal wall thickening as can be seen with proctitis. Mild fecal impaction with findings suggestive of constipation. Possible decubitus ulcer over the right buttock. Abdomen X-Ray 01/03/24 09:13 IMPRESSION: 1. Normal bowel gas pattern. 2. Airspace opacities in the mid and lower lung zones, consistent with pneumonia. Chest X-Ray 01/09/24 11:52 Impression: Mild bibasilar haziness. Correlate for mild bibasilar pulmonary edema versus possible bibasilar pneumonia. Labs Labs: Laboratory Results - last 24 hr 01/10/24 01/10/24 01/11/24 17:42 23:58 05:59 WBC 12.4 H RBC 3.67 L Hgb 11.7 L Hct 38.1 L MCV 103.8 H MCH 31.9 MCHC 30.7 L RDW 14.1 Plt Count 268 MPV 12.1 H Sodium 150 H Potassium 3.8 Chloride 114 H Carbon Dioxide 34 H Anion Gap 2 L BUN 34 H Creatinine 0.70 Estim Creat Clear Calc 84 Estimated GFR > 60 Glucose 115 H POC Capillary Glucose 109 H 107 H Calcium 9.0 Magnesium 2.3 C. difficile (PCR) 01/11/24 01/11/24 01/11/24 06:33 12:19 13:12 WBC RBC Hgb Hct MCV MCH MCHC RDW Plt Count MPV Sodium Potassium Chloride Carbon Dioxide Anion Gap BUN Creatinine Estim Creat Clear Calc Estimated GFR Glucose POC Capillary Glucose 138 H 127 H Calcium Magnesium C. difficile (PCR) Negative Quality VTE Prophylaxis VTE prophylaxis: pharmacologic ordered Hospitalist [facility] Advance Care Plan I have confirmed that the patient's Advanced Care Plan is present, code status is documented, or surrogate decision maker is listed in patient medical record.: Yes Medication Reconciliation I have utilized all available resources to obtain, update and review the patients current medications (includes all prescriptions, OTC, herbals, cannabis, and nutritional supplements).: Yes
[2024-01-11] MEDS: ACETAMINOPHEN ELIXIR 325 MG/10.15 ML UDC 650 MG PO (17:08)
[2024-01-11 19:08] LABS: Glucose Point of Care 140 mg/dl (65-105)
[2024-01-11] MEDS: diazePAM (*CRX) 10 MG TABLET 20 MG PO (21:36)
[2024-01-12] VITALS (15 sets, daily range): BP systolic 124–181; BP diastolic 70–106; PULSE 83–90; RESP 14–20; TEMP 36.4–37; O2SAT 93–100
[2024-01-12 00:45] LABS: Glucose Point of Care 109 mg/dl (65-105)
[2024-01-12 06:09] LABS: Glucose Point of Care 105 mg/dl (65-105)
[2024-01-12] MEDS: LANSOPRAZOLE ODT 30 MG TAB.RAP.DR FEED TUBE (06:35)
[2024-01-12 06:59] LABS: Hematocrit 41.9 % (42.0-52.0); Hemoglobin 13.1 g/dL (14.0-18.0); Mean Corpuscular HGB Conc 31.3 g/dl (32-36); Mean Corpuscular Hemoglobin 32.3 pg (26-34); Mean Corpuscular Volume 103.2 fl (80-100); Mean Platelet Volume 11.9 fl (7.4-10.4); Platelet Count Result 272 k/mm3 (150-375); Red Blood Count 4.06 M/mm3 (4.6-6.20); Red Cell Distribution Width 13.9 % (11.5-14.5); White Blood Count 10.2 K/mm3 (4.5-10.0)
[2024-01-12 07:10] LABS: Alanine Aminotransferase 40 U/L (6-50); Albumin Level 3.5 g/dL (3.5-5.1); Alkaline Phosphatase 80 U/L (38-126); Aspartate Amino Transferase 26 U/L (17-59); Bilirubin,Total 0.5 mg/dL (0.2-1.3); Blood Urea Nitrogen 34 mg/dL (9-20); Calcium 9.4 mg/dL (8.4-10.2); Carbon Dioxide > 40 mmol/L (22-30); Chloride 111 mmol/L (98-107); Estimated CRCL calculation 83 ml/min; Estimated Glomerular Filt Rate > 60; Glucose 131 mg/dL (65-110); Magnesium 2.3 mg/dL (1.6-2.3); Potassium 4.6 mmol/L (3.4-5.0); Sodium 152 mmol/L (137-145)
[2024-01-12] MEDS: IPRATROPIUM 0.5 MG/ALBUTEROL SULFATE 2.5 MG AMPUL.NEB 3 ML INHALATION ×3 (08:04→20:32)
--- NOTE | 2024-01-12 08:06 | PM.IMPN ---
Progress Note: A&P Assessment and Plan (1) Acute respiratory failure: Code(s): J96.00 - Acute respiratory failure, unspecified whether with hypoxia or hypercapnia Status: Acute Assessment and Plan: acute respiratory failure secondary to aspiration pneumonia CT chest Reviewed chest x-ray reviewed. ABG reviewed extubated today 01/01/24 Lasix IV discontinued Treatment of pneumonia as below (2) Septic shock: Code(s): A41.9 - Sepsis, unspecified organism; R65.21 - Severe sepsis with septic shock Status: Acute Assessment and Plan: septic shock secondary to aspiration pneumonia. 12/29 improved with decreased vasopressor requirement. Patient is now off of vasopressin epinephrine drip and only on Levophed. patient weaned off Levophed. Off of all IV fluids. s/p stress dose hydrocortisone blood and sputum culture sent and pending continue empiric Zosyn. discontinued vancomycin (3) Nausea & vomiting: Code(s): R11.2 - Nausea with vomiting, unspecified Status: Acute Assessment and Plan: Zofran ordered. continue tube feeding (4) Hypertension: Code(s): I10 - Essential (primary) hypertension Status: Acute Assessment and Plan: blood pressure is now elevated. Will give IV Lasix 40 mg. We give p.r.n. labetalol and hydralazine. If stays elevated will add p.o. antihypertensive. Plan DVT prophylaxis - Lovenox Stress ulcer prophylaxis - PPI Nutrition - advance to pO diet as tolerated Code Status - Full Code Patient with history of recurrent aspiration resulting in pneumonia presented with a respiratory distress and was intubated admitted to ICU, patient was extubated and was reintubated and again extubated on January 04, currently off ventilator and on 3 L nasal cannula, patient with history of esophageal cancer status post surgery has difficulty with communication and history of recurrent aspiration. Today patient was able to sit in the chair, patient's is present and provides history and review of symptom, patient completed his antibiotics on 01/07, on 01/08 patient had cough CXR was done to further evaluate which is did not show any significant sign of pneumonia, patient sodium was elevated 152 on 01/08 patient was getting 150cc flushes q6, increased to 200cc q6, however today patient sodium is up to 156, discuss with pre owned sales manager will increase flushes to 250q6 and monitor. Today patient's sodium has been trending up and started D5W. If sodium is close to normal will discharge patient tomorrow, will have PT/OT evaluate the patient patient will benefit going to [facility] before going home. Subjective Date/time seen: 01/12/24 08:06 Interval history: Yesterday patient had episodes of diarrhea. C diff is negative. Patient's sodium is 152. Started on D5W at 70 mL per hr. Review of Systems Review of Systems: All systems reviewed & are unremarkable except as noted in HPI and below ROS unobtainable: Yes unobtainable due to endotracheal tube, unobtainable due to medical condition and unobtainable due to mental status Exam Narrative: Appears chronically ill Patient is comfortable, NAD HEENT: eyes are clear and none icteric LUNGS:CTA HEART: RR S1S2 ABD: BS+, Soft and nontender Lower extremities: no edema SKIN: nonjaundiced Neuro: grossly intact. Objective Data Vital Signs Vital Signs: Vital Signs - 24 hr 01/11/24 09:50 01/11/24 14:00 01/11/24 15:13 Temperature 97.7 F Pulse Rate 84 Respiratory Rate 20 Blood Pressure 114/67 Pulse Oximetry 95 96 95 Oxygen Delivery Nasal Cannula Nasal Cannula Oxygen Flow Rate 2.5 2.5 Fraction of Inspired Oxygen 30 01/11/24 15:13 01/11/24 15:21 01/11/24 21:38 Temperature 97.5 F L Pulse Rate 85 89 88 Respiratory Rate 20 20 14 Blood Pressure 108/67 Pulse Oximetry 96 Oxygen Delivery Oxygen Flow Rate Fraction of Inspired Oxygen 01/11/24 20:00 01/12/24 06:00 01/12/24 08:04 Temperature 98.6 F Pulse Rate 88 Respiratory Rate 14 Blood Pressure 124/76 Pulse Oximetry 96 95 94 Oxygen Delivery Nasal Cannula Nasal Cannula Oxygen Flow Rate 2.5 2.5 Fraction of Inspired Oxygen 30 01/12/24 08:04 Temperature Pulse Rate 87 Respiratory Rate 18 Blood Pressure Pulse Oximetry Oxygen Delivery Oxygen Flow Rate Fraction of Inspired Oxygen Intake/Output Intake/Output: Intake & Output 01/09/24 01/10/24 01/11/24 01/12/24 23:59 23:59 23:59 23:59 Intake Total 2881 1440 3410 1640 Output Total 750 2100 840 Balance 2131 1440 1310 800 Meds/Results Medications: Active Medications Generic Name Dose Route Start Last Admin Trade Name Freq PRN Reason Stop Dose Admin Acetaminophen 650 mg 01/04/24 10:10 01/11/24 17:08 Acetaminophen Elixir 325 Mg/10.15 Ml Udc PO 650 mg Q6H PRN Administration Mild Pain (1-3) or Fever Albuterol/Ipratropium 3 ml 01/03/24 08:55 01/12/24 08:04 Ipratropium 0.5 Mg/Albuterol Sulfate 2.5 Mg Ampul.Neb 3 Ml INHALATION 3 ml Q6HRT GELA Administration Alprazolam 0.125 mg 01/06/24 07:29 01/06/24 18:09 Alprazolam (*Crx) 0.25 Mg Tablet PO 0.125 mg Q8H PRN Administration Anxiety Amlodipine Besylate 5 mg 01/06/24 09:00 01/11/24 09:51 Amlodipine Besylate 5 Mg Tablet FEED TUBE 5 mg DAILY GELA Administration Bisacodyl 10 mg 12/30/23 08:09 Bisacodyl 10 Mg Suppository RECTAL QAM PRN Constipation Dextrose 12.5 gm 12/29/23 08:21 Dextrose 50% 25 Gm/50 Ml Syringe IV PUSH PRN PRN Hypoglycemia Protocol Diazepam 20 mg 01/06/24 23:45 01/11/24 21:36 Diazepam (*Crx) 10 Mg Tablet PO 20 mg HS GELA Administration Enoxaparin Sodium 40 mg 12/29/23 09:00 01/11/24 09:51 Enoxaparin 40 Mg/0.4 Ml Syringe SUB-Q 40 mg DAILY GELA Administration Glucagon 1 mg 12/29/23 08:21 Glucagon For Inj 1 Mg Vial IM PRN PRN Hypoglycemia Protocol Glucose 15 gm 12/29/23 08:21 Glucose Oral Gel 15 Gm Of Glucse In 37.5 Gm Tube PO PRN PRN Hypoglycemia Protocol Hydralazine HCl 10 mg 01/06/24 07:23 01/06/24 08:10 Hydralazine Hcl 20 Mg/Ml Vial IV PUSH 10 mg Q4H PRN Administration hypertension SBP > 150 mmHg Dextrose 1,000 mls @ 100 mls/hr 12/29/23 08:21 Dextrose 5% 1,000 Ml IVPB PRN PRN Hypoglycemia Protocol Insulin Aspart 2 - 5 units 12/29/23 12:00 01/12/24 06:37 Insulin Aspart (*Bkc) 100 Units/Ml SUB-Q Not Given Q6HR [facility] Protocol Labetalol HCl 20 mg 01/01/24 10:09 01/01/24 19:25 Labetalol Hcl Inj 100 Mg/20 Ml Vial IV PUSH 20 mg Q4H PRN Administration SBP > 160 and HR> 60 -1st choice Lansoprazole 30 mg 01/08/24 06:30 01/12/24 06:35 Lansoprazole Odt 30 Mg Tab.Rap.Dr FEED TUBE 30 mg DAILY@0630 GELA Administration Ondansetron HCl 4 mg 12/29/23 05:25 01/06/24 17:58 Ondansetron Inj 4 Mg/2 Ml Vial IV PUSH 4 mg Q4H PRN Administration Nausea Radiology Results: ITS Impressions Neck/Chest/Abdomen/Pelvis CT 12/29/23 18:24 IMPRESSION: Evaluation of the neck is limited without contrast. A neck mass is not excluded. Generalized neck edema/induration may be postsurgical or posttreatment in nature. Infection, such as cellulitis not excluded. Endotracheal tube terminates 5.6 cm above the doug, consider advancing by 1.6 cm. Pulmonary findings consistent with aspiration pneumonia. Small bilateral pleural effusions. Mediastinal lymphadenopathy. Rectal wall thickening as can be seen with proctitis. Mild fecal impaction with findings suggestive of constipation. Possible decubitus ulcer over the right buttock. Abdomen X-Ray 01/03/24 09:13 IMPRESSION: 1. Normal bowel gas pattern. 2. Airspace opacities in the mid and lower lung zones, consistent with pneumonia. Chest X-Ray 01/09/24 11:52 Impression: Mild bibasilar haziness. Correlate for mild bibasilar pulmonary edema versus possible bibasilar pneumonia. Labs Labs: Laboratory Results - last 24 hr 01/11/24 01/11/24 01/11/24 12:19 13:12 19:03 WBC RBC Hgb Hct MCV MCH MCHC RDW Plt Count MPV Sodium Potassium Chloride Carbon Dioxide Anion Gap BUN Creatinine Estim Creat Clear Calc Estimated GFR Glucose POC Capillary Glucose 127 H 140 H Calcium Magnesium Total Bilirubin AST ALT Alkaline Phosphatase Total Protein Albumin C. difficile (PCR) Negative 01/12/24 01/12/24 01/12/24 00:36 06:06 06:53 WBC 10.2 H RBC 4.06 L Hgb 13.1 L Hct 41.9 L MCV 103.2 H MCH 32.3 MCHC 31.3 L RDW 13.9 Plt Count 272 MPV 11.9 H Sodium 152 H Potassium 4.6 Chloride 111 H Carbon Dioxide > 40 H Anion Gap BUN 34 H Creatinine 0.70 Estim Creat Clear Calc 83 Estimated GFR > 60 Glucose 131 H POC Capillary Glucose 109 H 105 Calcium 9.4 Magnesium 2.3 Total Bilirubin 0.5 AST 26 ALT 40 Alkaline Phosphatase 80 Total Protein 7.0 Albumin 3.5 C. difficile (PCR) Quality VTE Prophylaxis VTE prophylaxis: pharmacologic ordered Hospitalist [facility] Advance Care Plan I have confirmed that the patient's Advanced Care Plan is present, code status is documented, or surrogate decision maker is listed in patient medical record.: Yes Medication Reconciliation I have utilized all available resources to obtain, update and review the patients current medications (includes all prescriptions, OTC, herbals, cannabis, and nutritional supplements).: Yes
[2024-01-12] MEDS: amLODIPine BESYLATE 5 MG TABLET FEED TUBE (09:39)
[2024-01-12] MEDS: ENOXAPARIN 40 MG/0.4 ML SYRINGE SUB-Q (09:39)
[2024-01-12] MEDS: DEXTROSE 5% 1,000 ML 1,000 ML 70 ML IV CONT ×2 (09:39→23:00)
[2024-01-12 11:49] LABS: Glucose Point of Care 172 mg/dl (65-105)
[2024-01-12] MEDS: ACETAMINOPHEN ELIXIR 325 MG/10.15 ML UDC 650 MG PO ×2 (11:53→18:25)
--- NOTE | 2024-01-12 14:07 | PCRCNOTE ---
Spoke to the and patient this morning about weaning the patient off of oxygen if possible. Both seemed to be in agreement. Was able to get the patient down to 1L NC this afternoon after his breathing tx and his SpO2 was 93% on 1L. was happy about it and the patient did not like to be down to 1L. RT educated about being above 90% is good and he was still wanting turned back to 2L. RT placed patient back on 2L NC and notified patient's RN and harness repairer of encounter.
[2024-01-12 17:59] LABS: Glucose Point of Care 123 mg/dl (65-105)
[2024-01-12] MEDS: diazePAM (*CRX) 10 MG TABLET 20 MG PO (20:42)
[2024-01-12 23:48] LABS: Glucose Point of Care 111 mg/dl (65-105)
[2024-01-13] VITALS (9 sets, daily range): BP systolic 126–146; BP diastolic 83–84; PULSE 81–92; RESP 14–20; TEMP 36.3–37.1; O2SAT 94–98
[2024-01-13] MEDS: IPRATROPIUM 0.5 MG/ALBUTEROL SULFATE 2.5 MG AMPUL.NEB 3 ML INHALATION ×3 (02:26→13:10)
[2024-01-13 06:06] LABS: Glucose Point of Care 127 mg/dl (65-105)
[2024-01-13] MEDS: LANSOPRAZOLE ODT 30 MG TAB.RAP.DR FEED TUBE (06:41)
[2024-01-13 07:18] LABS: Hematocrit 38.1 % (42.0-52.0); Hemoglobin 11.9 g/dL (14.0-18.0); Mean Corpuscular HGB Conc 31.2 g/dl (32-36); Mean Corpuscular Hemoglobin 31.6 pg (26-34); Mean Corpuscular Volume 101.3 fl (80-100); Mean Platelet Volume 12.3 fl (7.4-10.4); Platelet Count Result 261 k/mm3 (150-375); Red Blood Count 3.76 M/mm3 (4.6-6.20); Red Cell Distribution Width 13.6 % (11.5-14.5); White Blood Count 8.1 K/mm3 (4.5-10.0)
[2024-01-13 07:40] LABS: Alanine Aminotransferase 35 U/L (6-50); Albumin Level 3.1 g/dL (3.5-5.1); Alkaline Phosphatase 70 U/L (38-126); Anion Gap 3 mmol/L (4-12); Aspartate Amino Transferase 23 U/L (17-59); Bilirubin,Total 0.5 mg/dL (0.2-1.3); Blood Urea Nitrogen 29 mg/dL (9-20); Calcium 8.7 mg/dL (8.4-10.2); Carbon Dioxide 35 mmol/L (22-30); Chloride 104 mmol/L (98-107); Estimated CRCL calculation 98 ml/min; Estimated Glomerular Filt Rate > 60; Glucose 130 mg/dL (65-110); Potassium 3.6 mmol/L (3.4-5.0); Sodium 142 mmol/L (137-145)
[2024-01-13] MEDS: amLODIPine BESYLATE 5 MG TABLET FEED TUBE (09:37)
[2024-01-13] MEDS: ENOXAPARIN 40 MG/0.4 ML SYRINGE SUB-Q (09:37)
[2024-01-13 12:00] LABS: Glucose Point of Care 114 mg/dl (65-105)
--- NOTE | 2024-01-13 13:26 | PCDIET ---
Spoke with pt and regarding tube feeding and flushes. Also communicated with dietitian at [facility] to pass on pt's desire to possibly move to continuous feedings at night with small bolus feeds during the day. Current orders: Jevity 1.5 @ 70ml/hr over 22 hrs with 250ml flushes q 4hrs. Current caloric intake 2310kcals, 98g protein, 2670ml free water. Pt tolerating well.
--- NOTE | 2024-01-13 15:38 | P.DS_ITS ---
DS: Admitting Diagnosis Discharge Date 01/13/2024 Admitting Diagnosis hypotension DS: Discharge Diagnosis Discharge Diagnosis (1) Acute respiratory failure: Code(s): J96.00 - Acute respiratory failure, unspecified whether with hypoxia or hypercapnia Status: Acute Assessment and Plan: acute respiratory failure secondary to aspiration pneumonia CT chest Reviewed chest x-ray reviewed. ABG reviewed extubated today 01/01/24 Lasix IV discontinued Treatment of pneumonia as below (2) Septic shock: Code(s): A41.9 - Sepsis, unspecified organism; R65.21 - Severe sepsis with septic shock Status: Acute Assessment and Plan: septic shock secondary to aspiration pneumonia. 12/29 improved with decreased vasopressor requirement. Patient is now off of vasopressin epinephrine drip and only on Levophed. patient weaned off Levophed. Off of all IV fluids. s/p stress dose hydrocortisone blood and sputum culture sent and pending continue empiric Zosyn. discontinued vancomycin (3) Nausea & vomiting: Code(s): R11.2 - Nausea with vomiting, unspecified Status: Acute Assessment and Plan: Zofran ordered. continue tube feeding (4) Hypertension: Code(s): I10 - Essential (primary) hypertension Status: Acute Assessment and Plan: blood pressure is now elevated. Will give IV Lasix 40 mg. We give p.r.n. labetalol and hydralazine. If stays elevated will add p.o. antihypertensive. Plan DVT prophylaxis - Lovenox Stress ulcer prophylaxis - PPI Nutrition - advance to pO diet as tolerated Code Status - Full Code Patient with history of recurrent aspiration resulting in pneumonia presented with a respiratory distress and was intubated admitted to ICU, patient was extubated and was reintubated and again extubated on January 04, currently off ventilator and on 3 L nasal cannula, patient with history of esophageal cancer status post surgery has difficulty with communication and history of recurrent aspiration. Today patient was able to sit in the chair, patient's is present and provides history and review of symptom, patient completed his antibiotics on 01/07, on 01/08 patient had cough CXR was done to further evaluate which is did not show any significant sign of pneumonia, patient sodium was elevated 152 on 01/08 patient was getting 150cc flushes q6, increased to 200cc q6, however today patient sodium is up to 156, discuss with ice cream freezer helper will increase flushes to 250q6 and monitor. Today patient's sodium has been trending up and started D5W. If sodium is close to normal will discharge patient tomorrow, will have PT/OT evaluate the patient patient will benefit going to [facility] before going home. DS: Summary Hospital Course Hospital Course: Mal Akhtar is a 68 year old male with past medical history of esophageal cancer is post surgery radiation therapy in severe dysphagia leading to PEG tube insertion and is completely on tube feeds presented to ER with chief complaint of shortness of breath. Patient has been admitted multiple times with aspiration pneumonia in the past and his states that yesterday patient started vomiting multiple times. He was complaining of burning in his throat from regurgitant liquid. She states this has happened in the past. She states that patient does get vomiting if he takes too much of tube feed at 1 time but yesterday symptoms were much severe. She did not notice any blood in the vomitus. . Prior to that patient was feeling fine and did not had any fever shortness of breath or chest.. patient presented with ER early this morning with respiratory distress and was intubated. Post intubation patient had drop in blood pressure and required IV fluid bolus leading to improvement in but improvement was transient and patient was started on Levophed infusion. A left IJ central venous catheter was placed. Patient now admitted to ICU for further evaluation management. Patient continues to be on a ventilator sedated and on vasopressors. History was obtained from chart review and patient's at bedside. During his teen ICU he was needing levophed,vasopressin and epinephrine and fluid bolus. Intubated high PEEP and FiO2. Had discussion with . She wants her stay full code. He was empirically treated for aspiration pneumonia. 12/29/2023: Intubated 01/01/2024: Extubated 01/02/2024: Re-intubated for impending respiratory failure and for failed non- rebreather and BiPAP. Patient did receive Solu-Medrol for potential airway edema 01/05/2024: Patient was extubated 01/06/2024: Patient seen and examined the ICU, remains on 3 L nasal cannula, adequate O2 sats. Denies any chest pain, abdominal pain at this time. Blood pressure in the high. Hemodynamically stable, adequate urine output, afebrile As mentioned patient with history of recurrent aspiration resulting in pneumonia presented with a respiratory distress and was intubated admitted to ICU, patient was extubated and was reintubated and again extubated on January 04, currently off ventilator and on 3 L nasal cannula, patient with history of esophageal cancer status post surgery has difficulty with communication and history of recurrent aspiration. Today patient was able to sit in the chair, patient's is present and provides history and review of symptom, patient completed his antibiotics on 01/07, on 01/08 patient had cough CXR was done to further evaluate which is did not show any significant sign of pneumonia, patient sodium was elevated 152 on 01/08 patient was getting 150cc flushes q6, increased to 200cc q6, however today patient sodium is up to 156, discuss with ice cream freezer helper will increase flushes to 250q6 and monitor. Today patient's sodium has been trending down to 150. On 01/11 Na went to 152 and started D5W. On 01/12 his sodium was normalized to 142. We stopped his D5W and decrease his G- tube flushing 250 mL every 4 hours to 200 mL every 4 hours. Patient will be discharged to [facility]. We advised to monitor his sodium and adjust his tube flushes. Also advised aspiration precautions. Had a long conversation with his and explained having a a take 2 does not prevent aspiration as most of the aspiration happens from the saliva. Status at Discharge Cognitive/behavioral status at discharge: Stable Time Spent with Patient Time attestation: Total time spent providing and/or coordinating discharge services: 45 minutes Exam Narrative: Appears chronically ill Patient is comfortable, NAD HEENT: eyes are clear and none icteric LUNGS:CTA HEART: RR S1S2 ABD: BS+, Soft and nontender Lower extremities: no edema SKIN: nonjaundiced Neuro: grossly intact. DS: Data Data Completed and Pending Labs on day of discharge: Labs from last 24 hours 01/13/24 01/13/24 01/13/24 11:50 06:58 06:03 WBC 8.1 RBC 3.76 L Hgb 11.9 L Hct 38.1 L MCV 101.3 H MCH 31.6 MCHC 31.2 L RDW 13.6 Plt Count 261 MPV 12.3 H Sodium 142 Potassium 3.6 Chloride 104 Carbon Dioxide 35 H Anion Gap 3 L BUN 29 H Creatinine 0.60 L Estim Creat Clear Calc 98 Estimated GFR > 60 Glucose 130 H POC Capillary Glucose 114 H 127 H Calcium 8.7 Magnesium 2.0 Total Bilirubin 0.5 AST 23 ALT 35 Alkaline Phosphatase 70 Total Protein 6.0 L Albumin 3.1 L 01/12/24 01/12/24 23:46 17:56 WBC RBC Hgb Hct MCV MCH MCHC RDW Plt Count MPV Sodium Potassium Chloride Carbon Dioxide Anion Gap BUN Creatinine Estim Creat Clear Calc Estimated GFR Glucose POC Capillary Glucose 111 H 123 H Calcium Magnesium Total Bilirubin AST ALT Alkaline Phosphatase Total Protein Albumin Imaging Radiologist's impression: ITS Impressions Chest X-Ray 12/29/23 07:21 Impression: Moderate bibasilar pulmonary edema versus bibasilar pneumonia. Correlate clinically. Abdomen X-Ray 12/29/23 07:23 Impression: NG tube in satisfactory position. Percutaneous gastrostomy tube also in place. Chest X-Ray 12/29/23 07:24 Impression: Support tubes in place, as above. Stable bibasilar consolidation. Correlate for moderate pulmonary edema versus bibasilar pneumonia. Chest X-Ray 12/29/23 07:27 Impression: Support tubes, as above. No pneumothorax. Bibasilar consolidation and probable small right pleural effusion. Correlate for pulmonary edema versus pneumonia. Chest X-Ray 12/29/23 09:34 Impression: Support tubes, as above. Stable bibasilar pulmonary consolidation. Correlate for pulmonary edema versus pneumonia. Minimal right pleural effusion. Neck/Chest/Abdomen/Pelvis CT 12/29/23 18:24 IMPRESSION: Evaluation of the neck is limited without contrast. A neck mass is not excluded. Generalized neck edema/induration may be postsurgical or posttreatment in nature. Infection, such as cellulitis not excluded. Endotracheal tube terminates 5.6 cm above the doug, consider advancing by 1.6 cm. Pulmonary findings consistent with aspiration pneumonia. Small bilateral pleural effusions. Mediastinal lymphadenopathy. Rectal wall thickening as can be seen with proctitis. Mild fecal impaction with findings suggestive of constipation. Possible decubitus ulcer over the right buttock. Chest X-Ray 12/30/23 06:32 Impression: NG tube side-port in the distal esophagus. Further advancement into the stomach advised. Additional support tubes, as above. Patchy bibasilar consolidation, possibly minimally improved. Correlate for bibasilar pneumonia versus pulmonary edema. Chest X-Ray 12/30/23 08:34 IMPRESSION: 1. Emphysema with opacities in the bilateral mid and lower lung zones consistent with pulmonary edema and/or pneumonia. Chest X-Ray 12/31/23 06:17 Impression: Improving bibasilar hazy airspace disease. Probable underlying COPD and/or chronic interstitial disease. Support tubes, as above. Chest X-Ray 01/01/24 06:40 Impression: Probable mild to moderate bibasilar pulmonary edema. Correlate clinically for pneumonia. Probable underlying COPD. Support tubes, as above. Chest X-Ray 01/02/24 06:46 Impression: Probable moderate bibasilar pulmonary edema/atelectasis with small pleural effusions. Correlate clinically for pneumonia. Support line, as above. Chest X-Ray 01/02/24 10:38 IMPRESSION: 1. Stable airspace opacities in the mid and lower lung zones, consistent with pneumonia. Chest X-Ray 01/02/24 10:40 IMPRESSION: 1. Stable airspace opacities in the mid and lower lung zones, consistent with pneumonia. Abdomen X-Ray 01/03/24 09:13 IMPRESSION: 1. Normal bowel gas pattern. 2. Airspace opacities in the mid and lower lung zones, consistent with pneumonia. Chest X-Ray 01/04/24 05:58 IMPRESSION: 1. Airspace opacities in the mid and lower lung zones with slight improvement on the right, consistent with pneumonia. Chest X-Ray 01/05/24 09:11 Impression: Right basilar pneumonia. COPD. ET tube. Chest X-Ray 01/09/24 11:52 Impression: Mild bibasilar haziness. Correlate for mild bibasilar pulmonary edema versus possible bibasilar pneumonia. Discharge Plan Discharge Attending physician on discharge: Chet Albert Consulting providers: Farhad Rodríguez Discharging Clinician: Chet Albert Anticipated Discharge Date/Time: 01/13/24 15:34 Patient Disposition: [facility] Activity: as tolerated Diet: tube feeding Discharge Instructions: Need to follow aspiration precaution G-tube flushes 200 mL every 4 hours. Monitor sodium and adjust the G-tube flushing accordingly. Discharge Medications: New amlodipine [Norvasc] 5 mg Tablet 5 mg feeding tube DAILY Qty: 30 0RF Continued finasteride [Proscar] 5 mg tablet 5 mg feeding tube DAILY ondansetron HCl 4 mg tablet 4 mg feeding tube Q3-4H PRN (Reason: Acid Reflux) diazepam [Valium] 10 mg Tablet 20 mg PO HS PRN (Reason: Muscle Spasm) zolpidem 10 mg Tablet 10 mg feeding tube HS PRN (Reason: Sleep) Held polyethylene glycol 3350 [Miralax] 17 gram Powder In Packet 17 g feeding tube BID Qty: 30 0RF Hold Instructions: Resume on 01/27/24. Patient had some episodes of diarrhea. C diff testing was negative. Resume MiraLax if necessary and at the discretion of PCP Date of admission: 12/29/23 05:25 Primary Care Provider: David Daley Admitting Provider: Marily Lui V. Attending physician on admission: Marily Lui V. Condition: Stable
[2024-01-13 18:17] LABS: Glucose Point of Care 86 mg/dl (65-105)
== END 2024-01-13 19:07 | DRG 871 ==
LOC: ANHED 04:13 → ANHICU 07:33 → ANH3MEDSUR 01-13 14:50 → ANHICU 01-14 08:50 → ANHIMU 01-14 08:50
PROVIDERS: Family Medicine; Internal Medicine; Admitting Provider Internal Medicine; Emergency Provider Student in an Organized Health Care Education/Training Program; PCP Specialist; Visit Provider General Practice
DX: A41.9 Sepsis, unspecified organism (principal); J18.9 Pneumonia, unspecified organism; R65.21 Severe sepsis with septic shock; J69.0 Pneumonitis due to inhalation of food and vomit; J96.01 Acute respiratory failure with hypoxia; I44.4 Left anterior fascicular block; Z20.822 Contact with and (suspected) exposure to COVID-19; I10 Essential (primary) hypertension; E87.8 Other disorders of electrolyte and fluid balance, not elsewhere classified; R13.10 Dysphagia, unspecified; K21.9 Gastro-esophageal reflux disease without esophagitis; E03.9 Hypothyroidism, unspecified; Q05.9 Spina bifida, unspecified; Z93.1 Gastrostomy status; Z85.01 Personal history of malignant neoplasm of esophagus
CPT/HCPCS: 31500; 36415; 36556; 36600; 70490; 71045; 71250; 74019; 74176; 80048; 80053; 80202; 81001; 82375; 82805; 82948; 83050; 83605; 83735; 83880; 84100; 84145; 84478; 84484; 85018; 85025; 85027; 85055; 85610; 85730; 86140; 87040; 87493; 87637; 87641; 93005; 94002; 94003; 94640; 96365; 97110; 97162; 97165; 97530; 97535; 99291; A9270; C1751; C8929; J0171; J0330; J0360; J0456; J0613; J0696; J1650; J1720; J1940; J2250; J2405; J2470; J2543; J2704; J2919; J3010; J3370; J7030; J7040; J7060; J7070; J7120; P9045; Q9957

== ENCOUNTER 2024-01-15 15:55 | Inpatient (IN) | payer MEDICARE, OTHER, SELFPAY ==
[2024-01-15] VITALS (10 sets, daily range): BP systolic 99–138; BP diastolic 68–90; PULSE 73–98; RESP 22–27; TEMP 36.5–37.2; O2SAT 82–100; BMI 20.2
--- NOTE | ~2024-01-15 | XR_ITS ---
EXAMINATION: XR chest ET placement DATE: 01/18/2024 23:32 INDICATION: Intubation. TECHNIQUE: A single frontal view of the chest was obtained. COMPARISON: Chest single view 01/18/2024 at 10:05 PM FINDINGS: There are airspace opacities in all lung zones bilaterally with a mid and lower lung zone p redominance. There are small pleural effusions. No pneumothorax. The heart size is normal. The endotr acheal tube tip is 9.7 cm above the doug. IMPRESSION: 1. Stable diffuse lung disease, consistent with pneumonia. 2. Small pleural effusions. Reviewed, dictated and finalized at location A. PING RECEIVING MANAGER
--- NOTE | ~2024-01-15 | XR_ITS ---
EXAMINATION: XR UGI water soluble w sbs DATE: 01/17/2024 15:31 INDICATION: Ileus. Assess for patency of percutaneous gastrostomy tube TECHNIQUE: 240 mL of Gastrografin water-soluble contrast was administered by the patient's existing precarious g astrostomy tube. Overhead radiographs were obtained during the transit through the small bowel. A tot al of 5 images were recorded. COMPARISON: Obstructive series dated 01/03/2024 FINDINGS: Percutaneous gastrotomy tube bulb in the distal body the stomach. The administered contrast initially fills the stomach and extends probably into the small bowel. Transit time from the stomach to proxim al colon was approximately 1.5 hours. There is normal caliber and mucosal fold pattern throughout the small bowel. There are airspace opacities in the right mid to lower and left lower lung zones with p ersistent increased density to the consolidation at the bilateral lung bases, left greater right whic h concerning for pneumonia and potentially aspirated IMPRESSION: 1. Percutaneous gastrostomy tube bulb in the distal body the stomach with normal small bowel follow-t hrough. 2. Persistent opacities in the right mid to lower and left lower lung zones suspicious for pneumonia with some increased density at the lung bases suspicious for aspirated barium. Reviewed, dictated and finalized at location A. TS MEDIA IMPRESSION: 1. Percutaneous gastrostomy tube bulb in the distal body the stomach with venessa l small bowel follow-through. 2. Persistent opacities in the right mid to lower and left lower lung zones christian picious for pneumonia with some increased density at the lung bases suspicious for aspirated barium.
--- NOTE | ~2024-01-15 | XR_ITS ---
EXAMINATION: XR abdomen gastric tube insert DATE: 01/18/2024 22:11 INDICATION: Nasogastric tube placement. TECHNIQUE: A supine view of the abdomen was obtained. COMPARISON: Upper gastrointestinal series 01/17/2024 FINDINGS: The lower abdomen is excluded. There is a gastrostomy tube in expected position. There is c ontrast in the colon. The nasogastric tube tip is in the stomach. IMPRESSION: 1. Nasogastric tube tip in the stomach. Reviewed, dictated and finalized at location A. Y DUMP DRIVER
--- NOTE | ~2024-01-15 | CT_ITS ---
EXAMINATION: CTA chest PE protocol DATE: 01/15/2024 19:30 INDICATION: Hypoxia. Elevated d-dimer. TECHNIQUE: Computed tomography (CT) pulmonary angiogram of the chest was performed with 100 mL Omnipa que-350 intravenous contrast. Additional 3D reconstructions utilizing coronal maximum intensity proje ction (MIP) were performed. Automated exposure control and iterative reconstruction technique were em ployed. The dose-length product was 257.59 mGy-cm. COMPARISON: CT dated 01/15/2024 at 5:13 PM FINDINGS: No pulmonary embolism. Again seen are extensive tree-in-bud opacities in the dependent lungs with mor e dense consolidation the bilateral lower lobes consistent with pneumonia. There is increasing mucous now filling the bilateral lower lobar bronchi. Again seen is high attenuation material within the ba silar aspect of the bilateral lower lobes, left and right suspicious for aspirated barium. No pleural effusion. Heart size is normal. Atherosclerotic coronary artery calcification is. No pericardial eff usion. Thoracic aorta is normal in caliber with no dissection. No pathologically enlarged thoracic ly mphadenopathy. Small region of cortical scarring with dystrophic calcific lesion at the upper pole th e left kidney. Mild upper thoracic levocurvature with mild spondylosis. IMPRESSION: 1. No pulmonary collision. 2. Extensive tree-in-bud opacities in the bilateral lower lungs with more dense consolidation in the dependent bilateral lower lobes consistent with pneumonia. Significant progression of mucus plugging throughout the lower lobar bronchi. 3. A few high attenuation material in the basilar lower lobes, left greater than right right which is suspicious for aspirated barium. Reviewed, dictated and finalized at location A. NNA SPECIALIST IMPRESSION: 1. No pulmonary collision. 2. Extensive tree-in-bud opacities in the bilateral lower lungs with more dense consolidation in the dependent bilateral lower lobes consistent with pneumonia . Significant progression of mucus plugging throughout the lower lobar bronchi. 3. A few high attenuation material in the basilar lower lobes, left greater jodie n right right which is suspicious for aspirated barium.
--- NOTE | ~2024-01-15 | XR_ITS ---
EXAMINATION: XR chest 1V portable DATE: 01/18/2024 22:11 INDICATION: Shortness of breath. TECHNIQUE: A single frontal view of the chest was obtained on 2 radiographs. COMPARISON: Chest single view 01/15/2024 FINDINGS: There are airspace opacities in all right lung zones and in left mid and lower lung zones. Again seen are densities in left lower lobe that may be aspirated barium. There is mild scarring at t he lung apices. No pleural effusion or pneumothorax. The heart size is normal. The endotracheal tube tip is 10.3 cm above the doug. The nasogastric tube tip is in the stomach. IMPRESSION: 1. Worsened airspace opacities in all right lung zones and in left mid and lower lung zones, consiste nt with pneumonia. Reviewed, dictated and finalized at location A. OLOGICAL SURGERY TEACHER IMPRESSION: 1. Worsened airspace opacities in all right lung zones and in left mid and lowe r lung zones, consistent with pneumonia.
--- NOTE | ~2024-01-15 | XR_ITS ---
EXAMINATION: XR chest PICC line DATE: 01/19/2024 09:47 INDICATION: Central line placement. TECHNIQUE: A single frontal view of the chest was obtained. COMPARISON: Chest single view at 5:14 AM FINDINGS: There are airspace opacities in all right lung zones and in left mid and lower lung zones. There is hyperdense material in left lower lobe, likely aspirated barium. There are small pleural eff usions. No pneumothorax. The heart size is normal. The endotracheal tube tip is 7.4 cm above the alda na. Nasogastric tube tip is in the stomach. A left upper extremity peripherally inserted central veno us catheter (PICC) is seen with tip in the superior vena cava. IMPRESSION: 1. PICC tip in the superior vena cava. 2. Stable airspace opacities in right lung and left mid and lower lung zones, consistent with pneumon ia. 3. Stable small pleural effusions. Reviewed, dictated and finalized at location A. L RAIL CUTTER IMPRESSION: 1. PICC tip in the superior vena cava. 2. Stable airspace opacities in right lung and left mid and lower lung zones, c onsistent with pneumonia. 3. Stable small pleural effusions.
--- NOTE | ~2024-01-15 | XR_ITS ---
EXAMINATION: XR chest ET placement DATE: 01/18/2024 23:41 INDICATION: Intubation. TECHNIQUE: A single frontal view of the chest was obtained. COMPARISON: Chest single view 01/18/2024 11:11 PM FINDINGS: There are airspace opacities in all lung zones bilaterally with a mid and lower lung zone p redominance. There are small pleural effusions. No pneumothorax. The heart size is normal. The endotr acheal tube tip is 8.1 cm above the doug. IMPRESSION: 1. Stable diffuse lung disease, consistent with pneumonia. 2. Stable small pleural effusions. Reviewed, dictated and finalized at location A. F PHYSICAL THERAPY ASSISTANT
--- NOTE | ~2024-01-15 | XR_ITS ---
Portable chest x-ray Comparison: 01/19/2024 Clinical History: Respiratory failure Findings: Endotracheal tube, NG tube, and left-sided central venous line are in satisfactory positio ns. There is patchy consolidation the right upper and lower lobes, as well as at the left lower lobe. Probable underlying COPD. Cardiomediastinal silhouette is stable. Bones and soft tissues are unrema rkable. Impression: Patchy bilateral pneumonia, as above. Underlying COPD. Support tubes, as above. Reviewed, dictated and finalized at location . RT CLERK Impression: Patchy bilateral pneumonia, as above. Underlying COPD. Support tubes, as above.
--- NOTE | ~2024-01-15 | CT_ITS ---
EXAMINATION: CT chest high resolution wo co DATE: 01/15/2024 17:23 INDICATION: Eval asp pna TECHNIQUE: Computed tomography (CT) of the chest was performed without intravenous contrast. Addition al 3D reconstructions utilizing coronal maximum intensity projection (MIP) were performed. Automated exposure control and iterative reconstruction technique were employed. The dose-length product was 17 9.65 mGy-cm. COMPARISON: CT dated 03/05/2022 FINDINGS: Extensive tree-in-bud opacities throughout the aerated portions of the bilateral lower lobes, in the dependent aspect of the right upper and middle lobes and to lesser degree in the dependent left upper lobe and lingula consistent with endobronchial spread of disease, either aspiration or pneumonia. Co nsolidation in the dependent aspect of the bilateral lower lobes without significant volume loss cons istent with pneumonia. There is high attenuation material within the regions of consolidation most pr ominent in the left lower lobe and a small region of the medial basilar right lower lobe suggestive o f aspirated barium which is new since the prior study. No smooth septal line thickening to suggest pu lmonary edema. No pneumothorax or definitive pleural effusion. Heart size is normal. Atherosclerotic coronary artery calcification. No pericardial effusion. Thoracic aorta is normal in caliber. No patho logically enlarged thoracic lymphadenopathy. 6 mm dystrophic calcification at the site of focal corti avelina scarring at the upper pole the left kidney. 2 mm at a nonobstructing renal stone or atherosclerot ic calcification at the right renal hilum. Percutaneous gastrostomy tube bulb at the gastric antrum. Mild upper thoracic levocurvature with mild spondylosis. IMPRESSION: 1. Extensive tree-in-bud opacities in the dependent aspect of both lungs with more dense consolidatio n in the dependent aspect of the bilateral lower lobes consistent with pneumonia. This may be due to aspiration given the distribution of the presence of likely aspirated barium in the bilateral lower l obes. Reviewed, dictated and finalized at location A. ANALYTICS SPECIALIST IMPRESSION: 1. Extensive tree-in-bud opacities in the dependent aspect of both lungs with m ore dense consolidation in the dependent aspect of the bilateral lower lobes co nsistent with pneumonia. This may be due to aspiration given the distribution o f the presence of likely aspirated barium in the bilateral lower lobes.
--- NOTE | ~2024-01-15 | XR_ITS ---
EXAMINATION: XR chest 1V portable DATE: 01/15/2024 17:08 INDICATION: Hypoxia TECHNIQUE: frontal view of the chest was obtained. COMPARISON: Chest radiograph dated 01/09/2024 FINDINGS: Increased interstitial pattern in the bilateral lower lung zones with more patchy airspace opacities at the lung bases, left greater than right. Calcified pleural plaque along the left hemidiaphragm. No pneumothorax or definitive pleural effusion. Heart size is normal. IMPRESSION: 1. Mild interstitial and airspace opacities in bilateral lower lung zones could represent mild pulmon lorenzo edema and/or pneumonia. 2. Calcified pleural plaque along the left hemidiaphragm. Reviewed, dictated and finalized at location A. UTATIONAL PHYSICIST IMPRESSION: 1. Mild interstitial and airspace opacities in bilateral lower lung zones could represent mild pulmonary edema and/or pneumonia. 2. Calcified pleural plaque along the left hemidiaphragm.
--- NOTE | ~2024-01-15 | XR_ITS ---
EXAMINATION: XR chest 1V portable DATE: 01/19/2024 05:37 INDICATION: Respiratory failure. TECHNIQUE: A single frontal view of the chest was obtained on 2 radiographs. COMPARISON: Chest single view 01/18/2024, chest CT 01/15/2024 FINDINGS: There are airspace opacities in all lung zones bilaterally with a mid and lower lung zone p redominance. There are small pleural effusions. No pneumothorax. The heart size is normal. The endotr acheal tube tip is 7.5 cm above the doug. The nasogastric tube tip is in the stomach. IMPRESSION: 1. Stable diffuse lung disease, consistent with pneumonia. 2. Stable small pleural effusions. Reviewed, dictated and finalized at location A. LANE PILOT SUPERVISOR
--- NOTE | ~2024-01-15 | XR_ITS ---
Portable chest x-ray Comparison: 01/20/2024 Clinical History: Respiratory failure Findings: Endotracheal tube, NG tube, and left-sided PICC line are in place. There is extensive inte rstitial prominence and patchy airspace disease bilaterally, right lung worse than left. Cardiomedia stinal silhouette is stable. Bones and soft tissues are unremarkable. Impression: Patchy bilateral airspace disease, right worse than left, suspicious for multifocal pneumonia. Probable underlying chronic interstitial disease and/or COPD. Support tubes, as above. Reviewed, dictated and finalized at location . TAL SPECIALIST Impression: Patchy bilateral airspace disease, right worse than left, suspicious for multif ocal pneumonia. Probable underlying chronic interstitial disease and/or COPD. Support tubes, as above.
--- NOTE | 2024-01-15 16:24 | ECG_ITS ---
Test Date: 2024-01-15 16:36:40 Measurements Intervals [place] Rate: 96 P: 56 CO: 124 QRS: -50 QRSD: 98 T: 35 QT: 346 QTc: 439 Interpretive Statements SINUS RHYTHM WITH OCCASIONAL VENTRICULAR PREMATURE COMPLEXES LEFT ANTERIOR FASCICULAR BLOCK VOLTAGE CRITERIA FOR LVH CANNOT R/O SEPTAL INFARCT, AGE INDETERMINATE BASELINE ARTIFACT- I, II, AVR, V1-V2 ABNORMAL ECG Compared to ECG 12/29/2023 03:39:07 NO SIGNIFICANT CHANGE Electronically Signed On 01-15-2024 18:21:58 DIRECTOR OF FLIGHT OPERATIONS by West Ortiz D.O.
[2024-01-15 16:51] LABS: Alveolar/Arterial O2 Gradient 547.6 mmHg; Base Excess ABG 6.3 mEq/l (+/-2.0); Fractional Inspired Oxygen 100 %; HCO3 ABG 29.4 mEq/l (22.0-26.0); Oxygen Content ABG 18.4 %vol (16.0-22.0); Oxygen Saturation ABG 98.8 % (95.0-100.0); PCO2 ABG 37.4 mmHg (35.0-45.0); PO2 FiO2 Ratio Arterial Blood 1.28 %; Total Hemoglobin 13.2 g/dL (12.0-18.0)
[2024-01-15 16:53] LABS: Device NON-REBREATHER MASK; Modified Allen's Test Pass; Site Drawn RIGHT RADIAL; pH ABG 7.514 (7.350-7.450)
[2024-01-15 17:02] LABS: Basophils Percent Auto 0.4 % (0.2-1.2); Eosinophils Percent Auto 0.4 % (0-4.4); Hemoglobin 13.4 g/dL (14.0-18.0); Immature Granulocyte Absolute 0.02 K/mm3 (0.00-0.031); Immature Granulocyte Percent A 0.2 % (0-0.5); Lymphocytes Absolute Auto 0.49 K/mm3 (0.9-3.2); Mean Corpuscular HGB Conc 31.9 g/dl (32-36); Mean Corpuscular Hemoglobin 31.8 pg (26-34); Mean Corpuscular Volume 99.8 fl (80-100); Mean Platelet Volume 12.8 fl (7.4-10.4); Monocytes Absolute Auto 0.3 K/mm3 (0.1-0.6); Monocytes Percent Auto 2.9 % (2.6-8.5); Neutrophils Percent Auto 91.1 % (45.5-73.1); Platelet Count Result 250 k/mm3 (150-375); Red Blood Count 4.21 M/mm3 (4.6-6.20); Red Cell Distribution Width 13.5 % (11.5-14.5); White Blood Count 9.9 K/mm3 (4.5-10.0)
[2024-01-15 17:13] LABS: Alanine Aminotransferase 34 U/L (6-50); Albumin Level 3.7 g/dL (3.5-5.1); Alkaline Phosphatase 95 U/L (38-126); Anion Gap 4 mmol/L (4-12); Aspartate Amino Transferase 24 U/L (17-59); Bilirubin,Total 0.7 mg/dL (0.2-1.3); Blood Urea Nitrogen 29 mg/dL (9-20); Carbon Dioxide 38 mmol/L (22-30); Chloride 102 mmol/L (98-107); Estimated Glomerular Filt Rate > 60; Glucose 103 mg/dL (65-110); Prothrombin Time 12.9 Seconds (11.1-14.7); Sodium 144 mmol/L (137-145)
[2024-01-15 17:14] LABS: Partial Thromboplastin Time 34.3 Seconds (22.3-36.8)
[2024-01-15 17:18] LABS: D Dimer 1.28 ug/mL (<0.48)
[2024-01-15 17:19] LABS: Lipase 107 U/L (23-300); Magnesium 2.1 mg/dL (1.6-2.3)
[2024-01-15 17:20] LABS: NT Pro B Type Natriuretic Pept 216 pg/mL (19.9-100)
[2024-01-15 17:31] LABS: Troponin I < 0.012 ng/mL (0.000-0.034)
[2024-01-15 17:40] LABS: Influenza A QL RT-PCR Negative (Negative); Influenza B QL RT-PCR Negative (Negative); RSV RNA, RT-PCR Negative (Negative); SARS-CoV-2 RNA PCR Negative (Negative)
[2024-01-15 18:14] LABS: Add Urine Microscopic? YES; Appearance Urine Turbid (Clear); Bacteria Urine None Seen /hpf; Bilirubin Urine Negative (Negative); Blood Urine Negative (Negative); Budding Yeast Urine Present /hpf; Color Urine Yellow (Yellow); Glucose Urine UA Negative (Negative); Ketones Urine Negative (Negative); Leukocyte Esterase Ur Negative LEU/UL (Negative); Need Manual Microscopic Reviewed; Nitrate Urine Negative (Negative); Non Pathogenic Casts 0-2; Protein Urine Negative (Negative); RBC Urine 0-2 /hpf (0-2); Specific Grav Ur 1.014 (1.001-1.035); Squamous Epithelial Cell Urine None Seen /hpf (Few); Urobilinogen Urine 0.2 mg/dL (<2.0); WBC Urine 0-5 /hpf (0-3)
--- NOTE | 2024-01-15 18:54 | ED_ITS ---
HPI - General Adult General Chief complaint: Shortness of Breath/Dyspnea Stated complaint: dyspnea Time Seen by Provider: 01/15/24 16:03 History of Present Illness HPI narrative: this is a 68-year-old male with history of esophageal cancer frequent aspiration pneumonia present difficulty breathing. Is currently [facility] where he was having low oxygen saturations throughout the day. He is essentially sent to the ED for evaluation of his hypoxia. This time patient says he feels short of breath, does not remember any vomiting or choking episodes. He denies fevers chills or chest pain. No urinary symptoms. Related Data Home Medications Medication Instructions Recorded Confirmed zolpidem 10 mg tablet 5 mg feeding tube HS PRN Sleep 09/07/21 01/15/24 finasteride 5 mg tablet (Proscar) 5 mg feeding tube DAILY 03/05/22 01/15/24 diazepam 10 mg tablet (Valium) 20 mg PO HS 05/19/22 01/15/24 ondansetron HCl 4 mg tablet 4 mg feeding tube Q4H PRN nausea 05/19/22 01/15/24 and [id number] acetaminophen 325 mg tablet 325 mg PO Q4H PRN Pain (Scale 01/15/24 01/16/24 Score 1-3) miconazole nitrate 2 % topical 1 applic topical Q12H 01/15/24 01/15/24 cream nystatin 100,000 unit/mL oral 5 ml PO TID 01/15/24 01/15/24 suspension polyethylene glycol 3350 17 gram 17 g feeding tube BID PRN 01/15/24 01/15/24 oral powder packet (Miralax) Constipation zolpidem 5 mg tablet 5 mg feeding tube HS 01/15/24 01/15/24 Allergies Allergy/AdvReac Type Severity Reaction Status Date / Time No Known Allergies Allergy Verified 01/15/24 18:49 [facility] Past Medical History Medical History (Updated 01/16/24 @ 22:54 by Krysten Fox DO) Cervical spine disease Constipation Dysarthria Dysphagia Dysphonia Gastrostomy tube dependent GERD (gastroesophageal reflux disease) History of aspiration pneumonia History of throat cancer XRT and surgery Hypothyroid Insomnia Malfunction of gastrostomy tube Primary squamous cell carcinoma of head and neck (~2013) Radiation-induced brachial plexopathy Spina bifida as a child with surgery; residual 'bladder issues' Surgical History Surgical History History of ear, nose, and throat (ENT) surgery PEG (percutaneous endoscopic gastrostomy) status Family History Family History Mother Colon cancer Social History Social History (Updated 01/16/24 @ 01:05 by Krysten Fox DO) Social History: Lives at home with . Never smoked. No alcohol and drug use. Code status: Full code. Surrogate decision maker: Smoking status: Never smoker Second hand tobacco smoke exposure: No Alcohol intake: never Substance use: never Substance use type: does not use Do You Feel Safe in your Home?: Yes Lack of Transportation: No Lack of Food: Never True Current Housing: I Have Housing Concerned About Future Housing: No Difficulty Paying Gas/Electric Bills: No Difficulty Paying for Meds: No Currently Unemployed: No Education: Bachelor's Degree Difficulty w/ Childcare or Family Care: No Living arrangements: with family Gender identity (if verbalized by the patient): Male Sexual Orientation (if Verbalized by the Patient): Straight or Heterosexual Spiritual care concerns: No Agree to blood products: Yes Exam Narrative: APPEARANCE: patient speaks in very quiet voice due to esophageal cancer Head: atraumatic. EYES: EOMI, NOSE: Atraumatic NECK: Trachea midline RESPIRATORY: Tachypneic, hypoxic on room air CARDIOVASCULAR: RRR, no peripheral edema ABDOMINAL: Non-distended, soft nontender, G-tube in place MUSCULOSKELETAl: No obvious deformities NEURO: Alert. Moving 4/4 extremities SKIN:: Warm, dry. Normal color PSYCHIATRIC: Normal affect Course Vital Signs Vital signs: Vital Signs Temperature 98.9 F 01/15/24 16:08 Pulse Rate 98 01/15/24 16:08 Respiratory Rate 27 H 01/15/24 16:08 Blood Pressure 99/68 L 01/15/24 16:08 Pulse Oximetry 94 01/15/24 16:08 Temperature 97.7 F 01/17/24 07:48 Pulse Rate 101 H 01/17/24 07:55 Respiratory Rate 20 01/17/24 07:55 Blood Pressure 134/77 01/17/24 07:48 Pulse Oximetry 95 01/17/24 08:59 Oxygen Delivery High Flow Therapy with Nasal Cannula 01/17/24 08:59 Oxygen Flow Rate 45 01/17/24 08:59 Fraction of Inspired Oxygen 70 01/17/24 08:59 Medical Decision Making [facility] Narrative Medical decision making narrative: -Course: 68-year-old male with recurrent aspiration pneumonia presenting with hypoxia. patient given fluid resuscitation and antibiotics to cover aspiration pneumonia while his workup was being completed. Patient was initially on 15 L non-rebreather but we were able to put him on 10 L of high-flow NC w/ saturations in the mid 90s. CT PE with no evidence of pulmonary embolism but concerning for aspiration pneumonia. Patient will be admitted to the hospital for further management. -DDX includes but is not limited to: Sepsis, aspiration pneumonia, pulmonary embolism. -Independent interpretation of studies: labs imaging/reviewed Independent EKG interpretation: Rhythm [sinus], Rate [96], [place] -[normal], NC -[normal], QRS [narrow], QTC [normal], T waves -[negative for concerning inversions], ST Segments - [Negative for concerning elevations] Final interpretations: [Normal Sinus Rhythm] -Interventions: Pip/tazo, vancomycin, 30cc/kg bolus. -Shared decision making / Disposition:Admitted. Vital Signs Vital Signs: Vital Signs Temperature 98.9 F 01/15/24 16:08 Pulse Rate 98 01/15/24 16:08 Respiratory Rate 27 H 01/15/24 16:08 Blood Pressure 99/68 L 01/15/24 16:08 Pulse Oximetry 94 01/15/24 16:08 Temperature 97.7 F 01/17/24 07:48 Pulse Rate 101 H 01/17/24 07:55 Respiratory Rate 20 01/17/24 07:55 Blood Pressure 134/77 01/17/24 07:48 Pulse Oximetry 95 01/17/24 08:59 Oxygen Delivery High Flow Therapy with Nasal Cannula 01/17/24 08:59 Oxygen Flow Rate 45 01/17/24 08:59 Fraction of Inspired Oxygen 70 01/17/24 08:59 Lab Data 01/17/24 05:06 01/17/24 05:06 Labs: Lab Results 01/15/24 01/15/24 01/15/24 Range/Units 16:55 16:55 17:57 WBC 9.9 (4.5-10.0) K/mm3 RBC 4.21 L (4.6-6.20) M/mm3 Hgb 13.4 L (14.0-18.0) g/dL Hct 42.0 (42.0-52.0) % MCV 99.8 (80-100) fl MCH 31.8 (26-34) pg MCHC 31.9 L (32-36) g/dl RDW 13.5 (11.5-14.5) % Plt Count 250 (150-375) k/mm3 MPV 12.8 H (7.4-10.4) fl Immature Gran % (Auto) 0.2 (0-0.5) % Neut % (Auto) 91.1 H (45.5-73.1) % Lymph % (Auto) 5.0 L (18.3-44.2) % Ford % (Auto) 2.9 (2.6-8.5) % Eos % (Auto) 0.4 (0-4.4) % Baso % (Auto) 0.4 (0.2-1.2) % Lymph # (Auto) 0.49 L (0.9-3.2) K/mm3 Ford # (Auto) 0.3 (0.1-0.6) K/mm3 Eos # (Auto) 0.0 (0-0.3) K/mm3 Baso # (Auto) 0.0 (0.0-0.1) K/mm3 Abs Immat Gran (auto) 0.02 (0.00-0.031) K/mm3 Absolute Neuts (auto) 9.0 H (1.3-6.7) K/mm3 Absolute Nucleated RBC 0.000 (0.0-0.012) K/mm3 Nucleated RBC % 0.0 (0.0-0.2) % PT 12.9 (11.1-14.7) Seconds INR 1.0 APTT 34.3 (22.3-36.8) Seconds D-Dimer Cancelled 1.28 H Sodium 144 (137-145) mmol/L Potassium 4.0 (3.4-5.0) mmol/L Chloride 102 (98-107) mmol/L Carbon Dioxide 38 H (22-30) mmol/L Anion Gap 4 (4-12) mmol/L BUN 29 H (9-20) mg/dL Creatinine 0.80 (0.7-1.3) mg/dL Estim Creat Clear Calc Not Reportable Estimated GFR > 60 (59 - ) Glucose 103 (65-110) mg/dL Lactic Acid 1.0 (0.7-2.0) mmol/L Calcium 10.0 (8.4-10.2) mg/dL Phosphorus 4.0 (2.5-4.5) mg/dL Magnesium 2.1 (1.6-2.3) mg/dL Total Bilirubin 0.7 (0.2-1.3) mg/dL AST 24 (17-59) U/L ALT 34 (6-50) U/L Alkaline Phosphatase 95 (38-126) U/L Troponin I < 0.012 (0.000-0.034) ng/mL NT-Pro-B Natriuret Pep 216 H (19.9-100) pg/mL Total Protein 8.0 (6.3-8.2) g/dL Albumin 3.7 (3.5-5.1) g/dL Lipase 107 (23-300) U/L Urine Color Yellow (Yellow) Urine Appearance Turbid H (Clear) Urine pH 7.0 (5.0-9.0) Ur Specific [place] 1.014 (1.001-1.035) Urine Protein Negative (Negative) mg/dL Urine Glucose (UA) Negative (Negative) mg/dL Urine Ketones Negative (Negative) mg/dL Ur Blood (Man) Negative (Negative) Urine Nitrate Negative (Negative) Urine Bilirubin Negative (Negative) Urine Urobilinogen 0.2 (<2.0) mg/dL Add Ur Microanalysis Reviewed Leukocyte Esterase Rfl Negative (Negative) JALEESA/UL Urine RBC 0-2 (0-2) /hpf Urine WBC 0-5 (0-3) /hpf Ur Squamous Epith Cells None seen (Few) /hpf Urine Bacteria None seen /hpf Urine Casts 0-2 Urine Yeast (Budding) Present H (None) /hpf Nasal MRSA (PCR) (NOT DETECTE) Influenza A (RT-PCR) Negative (Negative) Influenza B (RT-PCR) Negative (Negative) RSV (RT-PCR) Negative (Negative) SARS-CoV-2 RNA (RT-PCR) Negative (Negative) 01/15/24 01/15/24 Range/Units 19:43 19:58 WBC (4.5-10.0) K/mm3 RBC (4.6-6.20) M/mm3 Hgb (14.0-18.0) g/dL Hct (42.0-52.0) % MCV (80-100) fl MCH (26-34) pg MCHC (32-36) g/dl RDW (11.5-14.5) % Plt Count (150-375) k/mm3 MPV (7.4-10.4) fl Immature Gran % (Auto) (0-0.5) % Neut % (Auto) (45.5-73.1) % Lymph % (Auto) (18.3-44.2) % Ford % (Auto) (2.6-8.5) % Eos % (Auto) (0-4.4) % Baso % (Auto) (0.2-1.2) % Lymph # (Auto) (0.9-3.2) K/mm3 Ford # (Auto) (0.1-0.6) K/mm3 Eos # (Auto) (0-0.3) K/mm3 Baso # (Auto) (0.0-0.1) K/mm3 Abs Immat Gran (auto) (0.00-0.031) K/mm3 Absolute Neuts (auto) (1.3-6.7) K/mm3 Absolute Nucleated RBC (0.0-0.012) K/mm3 Nucleated RBC % (0.0-0.2) % PT (11.1-14.7) Seconds INR APTT (22.3-36.8) Seconds D-Dimer Sodium (137-145) mmol/L Potassium (3.4-5.0) mmol/L Chloride (98-107) mmol/L Carbon Dioxide (22-30) mmol/L Anion Gap (4-12) mmol/L BUN (9-20) mg/dL Creatinine (0.7-1.3) mg/dL Estim Creat Clear Calc Estimated GFR (59 - ) Glucose (65-110) mg/dL Lactic Acid (0.7-2.0) mmol/L Calcium (8.4-10.2) mg/dL Phosphorus (2.5-4.5) mg/dL Magnesium (1.6-2.3) mg/dL Total Bilirubin (0.2-1.3) mg/dL AST (17-59) U/L ALT (6-50) U/L Alkaline Phosphatase (38-126) U/L Troponin I < 0.012 (0.000-0.034) ng/mL NT-Pro-B Natriuret Pep (19.9-100) pg/mL Total Protein (6.3-8.2) g/dL Albumin (3.5-5.1) g/dL Lipase (23-300) U/L Urine Color (Yellow) Urine Appearance (Clear) Urine pH (5.0-9.0) Ur Specific [place] (1.001-1.035) Urine Protein (Negative) mg/dL Urine Glucose (UA) (Negative) mg/dL Urine Ketones (Negative) mg/dL Ur Blood (Man) (Negative) Urine Nitrate (Negative) Urine Bilirubin (Negative) Urine Urobilinogen (<2.0) mg/dL Add Ur Microanalysis Leukocyte Esterase Rfl (Negative) JALEESA/UL Urine RBC (0-2) /hpf Urine WBC (0-3) /hpf Ur Squamous Epith Cells (Few) /hpf Urine Bacteria /hpf Urine Casts Urine Yeast (Budding) (None) /hpf Nasal MRSA (PCR) Not detected (NOT DETECTE) Influenza A (RT-PCR) (Negative) Influenza B (RT-PCR) (Negative) RSV (RT-PCR) (Negative) SARS-CoV-2 RNA (RT-PCR) (Negative) ABG Data ABG results: 01/15/24 16:46 Puncture Site Right radial ABG pH 7.514 H* ABG pCO2 37.4 ABG pO2 128.0 H ABG PO2/FiO2 Ratio 1.28 ABG HCO3 29.4 H ABG O2 Saturation 98.8 ABG O2 Content 18.4 ABG Base Excess 6.3 A-a Gradient 547.6 Oxyhemoglobin 98.0 Total Hemoglobin 13.2 O2 Delivery Device Non-rebreather mask O2 Liters/Min 15.0 FiO2 100 Critical Care Time Critical Care Time Critical Care Time: Yes Total Critical Care Time: 35 Discharge Plan Discharge Clinical Impression: Aspiration pneumonia, Hypoxic respiratory failure Patient Disposition: Still a Patient Condition: Guarded Prognosis
[2024-01-15] MEDS: PIPERACILLN/TAZ 3.375GM/NS50ML 3.375 GM/50 ML BAG IVPB (19:00)
[2024-01-15] MEDS: STAT BOLUS COMMUNICATION ORDER 2085 ML IV CONT (19:00)
--- NOTE | 2024-01-15 19:08 | PC.NURSE ---
2,100 mL bolus of 0.9% Sodium Chloride started at 1900 @ 999 mL/hr.
--- NOTE | 2024-01-15 19:29 | ECG_ITS ---
Test Date: 2024-01-15 20:14:10 Measurements Intervals [place] Rate: 96 P: 52 MS: 151 QRS: -48 QRSD: 98 T: 69 QT: 371 QTc: 469 Interpretive Statements SINUS RHYTHM LEFT ANTERIOR FASCICULAR BLOCK VOLTAGE CRITERIA FOR LVH CANNOT R/O SEPTAL INFARCT, AGE INDETERMINATE ABNORMAL ECG Compared to ECG 01/15/2024 16:36:40 Ventricular premature complex(es) no longer present Electronically Signed On 01-16-2024 07:02:12 BINGO MANAGER by [place] Ortiz D.O.
[2024-01-15] MEDS: [UNRECOGNIZED DRUG - REMARK] 1 EACH XX (19:37)
[2024-01-15 20:08] LABS: Troponin I < 0.012 ng/mL (0.000-0.034)
--- NOTE | 2024-01-15 20:11 | PC.NURSE ---
IV Bolus stop time is 2010. Total volume infused is 2,100 mL
[2024-01-15] MEDS: VANCOMYCIN 1,750 MG/NS 500 ML 1,750 MG/500 ML BAG 250 MG IVPB (20:13)
[2024-01-15 21:13] LABS: MRSA (PCR) NOT DETECTED (NOT DETECTE)
[2024-01-15] MEDS: WATER FOR IRRIGATION, STERILE 1,000 ML BOTTLE 1000 ML (22:42)
[2024-01-15] MEDS: SODIUM CHLORIDE 0.9% IV 1,000 ML 125 ML IV CONT (22:45)
--- NOTE | 2024-01-15 22:46 | ADMGEN ---
This patient, Mal Akhtar, was admitted to IMU Room 2206. Patient/family oriented to hospital policies and general routines including ID bracelet, bed and alarms, visiting hours, pain management, procedures, bathroom and other care routines, personal items, smoking policy, room service/diet, and visiting hours. Information on how to activate the Rapid Response Team has been discussed. Patient/Family are encouraged to report perceived risks to care and to ask questions if they do not understand what they are told or what they should do.
[2024-01-16] VITALS (26 sets, daily range): BP systolic 95–138; BP diastolic 58–88; PULSE 80–114; RESP 16–24; TEMP 36.3–38.4; O2SAT 93–99
[2024-01-16] MEDS: PIPERACILLIN/TAZ 4.5G/NS 100ML 4.5 GM/100 ML BAG IVPB ×5 (00:05→23:36)
--- NOTE | 2024-01-16 00:37 | P.HP_ITS ---
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 rehab. The patient had just been hospitalized here 12/29/2023 through 01/13/2024 due to respiratory failure from aspiration pneumonia accompanied by severe sepsis and septic shock requiring multiple vasopressors. The patient was intubated on the and subsequently extubated and required re-intubation on the after failure BiPAP trial. Patient was extubated on the . The patient and his reports the patient's sputum is always thick he usually has to cough and spit stuff up numerous times a day. He has to use the anchor cardiac it mucus from his mouth. They report that the an car that the use at home is actually not strong enough to get the mucus out of the back of his mouth. Today while he was at rehab he was having increased difficulty getting the mucus up and after coughing quite vigorously he was able to produce a large amount of green sputum. He reports that his sputum is usually clear or white in color. When he was trying to cough the sputum up he had a cough so vigorously that he felt as if he was going to vomit. He is concerned that he may have had another episode of aspiration in the process. Despite coughing up the large amount of sputum patient was still feeling quite short of breath. Rehab staff check patient's oxygen saturations in his oxygen saturations remained low. He was discharged on 2 L nasal cannula on the . Despite being placed on a non-rebreather patient was still having oxygen saturations in the 80s so they sent him back to the ER. ABG in the ER demonstrated respiratory alkalosis with PO2 of 128 on 15 L non-rebreather. Noncontrast CT of the chest was initially performed which demonstrated extensive tree-in-bud opacities in the dependent aspect of both lungs with more dense consolidation in dependent aspect of bilateral lower lobes consistent with pneumonia this may be due to aspiration given the distribution of the presence of likely aspirated barium and bilateral lower lobes. The patient's D-dimer came back positive the patient subsequently underwent CTA of the chest which demonstrated again extensive tree-in-bud opacities bilateral lower lobes with more dense consolidation of bilateral lower lobe consistent with pneumonia with significant progression of mucous plugging throughout the lower lobar bronchi. With high attenuation material in the basilar lower lobes left greater than right which is suspicious for aspirated barium. The patient denies any fevers or chills. He reports that during his last hospital stay the dietitian recommended that he be on continuous feeds overnight with smaller volume bolus feeds. He is unsure what pattern of feedings he is getting at the rehab facility currently. He was switched to Jevity feeds during his last hospital stay. He had some hypernatremia during his hospital stay but this has resolved with changes in tube feeds. He was evidently constipated earlier in his last hospital stay and was on MiraLax b.i.d.. He reports that his MiraLax was discontinued prior to his discharge from the hospital but he is still continued to have multiple loose incontinent stools a day since that time. His stools are brown and nonbloody. Review of Systems Review of Systems: 12 systems were reviewed with pertinent positives and negatives per HPI. Except as documented in the HPI, all other systems were reviewed and are negative. [facility] Past Medical History Medical History (Updated 01/16/24 @ 01:06 by Krysten Fox DO) Cervical spine disease Constipation Dysarthria Dysphagia Dysphonia Gastrostomy tube dependent GERD (gastroesophageal reflux disease) History of aspiration pneumonia History of throat cancer XRT and surgery Hypothyroid Insomnia Malfunction of gastrostomy tube Primary squamous cell carcinoma of head and neck (~2013) Radiation-induced brachial plexopathy Spina bifida as a child with surgery; residual 'bladder issues' Surgical History Surgical History History of ear, nose, and throat (ENT) surgery PEG (percutaneous endoscopic gastrostomy) status Family History Family History Mother Colon cancer Social History Social History (Updated 01/16/24 @ 01:05 by Krysten Fox DO) Social History: Lives at home with . Never smoked. No alcohol and drug use. Code status: Full code. Surrogate decision maker: Smoking status: Never smoker Second hand tobacco smoke exposure: No Alcohol intake: never Substance use: never Substance use type: does not use Do You Feel Safe in your Home?: Yes Lack of Transportation: No Lack of Food: Never True Current Housing: I Have Housing Concerned About Future Housing: No Difficulty Paying Gas/Electric Bills: No Difficulty Paying for Meds: No Currently Unemployed: No Education: Bachelor's Degree Difficulty w/ Childcare or Family Care: No Living arrangements: with family Gender identity (if verbalized by the patient): Male Sexual Orientation (if Verbalized by the Patient): Straight or Heterosexual Spiritual care concerns: No Agree to blood products: Yes Meds Home Medications and Allergies Home Medications Medication Instructions Recorded Confirmed Type zolpidem 10 mg tablet 5 mg feeding tube HS PRN Sleep 09/07/21 01/15/24 History finasteride 5 mg tablet (Proscar) 5 mg feeding tube DAILY 03/05/22 01/15/24 History diazepam 10 mg tablet (Valium) 20 mg PO HS 05/19/22 01/15/24 History ondansetron HCl 4 mg tablet 4 mg feeding tube Q4H PRN nausea 05/19/22 01/15/24 History and [id number] amlodipine 5 mg tablet (Norvasc) 5 mg feeding tube DAILY #30 tabs 01/13/24 01/15/24 Rx acetaminophen 325 mg tablet 325 mg PO Q4H PRN Pain (Scale 01/15/24 01/16/24 History Score 1-3) miconazole nitrate 2 % topical 1 applic topical Q12H 01/15/24 01/15/24 History cream nystatin 100,000 unit/mL oral 5 ml PO TID 01/15/24 01/15/24 History suspension polyethylene glycol 3350 17 gram 17 g feeding tube BID PRN 01/15/24 01/15/24 History oral powder packet (Miralax) Constipation zolpidem 5 mg tablet 5 mg feeding tube HS 01/15/24 01/15/24 History Allergies Allergy/AdvReac Type Severity Reaction Status Date / Time No Known Allergies Allergy Verified 01/15/24 18:49 Vital Signs Vital Signs - 24 hr 01/15/24 16:08 01/15/24 16:10 01/15/24 17:32 Temperature 98.9 F Pulse Rate 98 Respiratory Rate 27 H Blood Pressure 99/68 L Pulse Oximetry 94 94 95 Oxygen Delivery Non-Rebreather Mask Nasal Cannula Oxygen Flow Rate 15 3 01/15/24 17:56 01/15/24 18:13 01/15/24 18:17 Temperature Pulse Rate 73 Respiratory Rate 24 H Blood Pressure 130/90 Pulse Oximetry 94 82 L 91 Oxygen Delivery High Flow Nasal Cannula Oxygen Flow Rate 3 10 01/15/24 20:13 01/15/24 22:07 01/15/24 23:00 Temperature 97.7 F Pulse Rate 93 86 Respiratory Rate 24 H 22 H Blood Pressure 135/81 138/80 Pulse Oximetry 94 99 100 Oxygen Delivery High Flow Nasal Cannula Oxygen Flow Rate 8 01/16/24 00:00 01/15/24 22:31 Temperature Pulse Rate 86 92 Respiratory Rate Blood Pressure Pulse Oximetry Oxygen Delivery Oxygen Flow Rate Exam Narrative: Weight 67.7 kg BMI 20.2 Const: Other: Debilitated, appears older than stated age, no acute distress HENMT: Other: Marked skin changes and anatomical changes of the head and neck consistent with history of radical neck dissection and radiation therapy, dry mucous membranes, white plaquing to areas of oral mucosa, head is normocephalic atraumatic Eyes: Other: Pupils are equal and reactive, no scleral icterus Neck: Other: Extensive tissue changes consistent with per history of prior radical neck dissection and radiation therapy Resp: Other: Coarse rhonchi right lower lobe, decreased breath sounds left upper and lower lobe Cardio: Other: Regular rate, regular rhythm, 2+ bilateral radial pedal pulses GI: Other: Soft, nontender, nondistended, G-tube present : Other: Pure wick catheter in place Skin: Other: Generalized pallor, non jaundice, erythema excoriation of bilateral groin, flaki ng skin to areas of the buttock Neuro: Other: Alert orient x4, speech is hoarse and low volume, articulation is slow, no gross motor deficits noted, no obvious facial asymmetry Extrem: Other: No clubbing, cyanosis or edema of lower extremities, left hand seems somewhat edematous Psych: Other: Appropriate mood and affect, pleasant and cooperative, judgment and insight intact H&P: Results Labs Labs: Laboratory Tests 01/15/24 16:55 01/15/24 16:55 01/15/24 01/15/24 01/15/24 16:46 16:55 16:55 WBC 9.9 RBC 4.21 L Hgb 13.4 L Hct 42.0 MCV 99.8 MCH 31.8 MCHC 31.9 L RDW 13.5 Plt Count 250 MPV 12.8 H Immature Gran % (Auto) 0.2 Neut % (Auto) 91.1 H Lymph % (Auto) 5.0 L [place] % (Auto) 2.9 Eos % (Auto) 0.4 Baso % (Auto) 0.4 Lymph # (Auto) 0.49 L [place] # (Auto) 0.3 Eos # (Auto) 0.0 Baso # (Auto) 0.0 Abs Immat Gran (auto) 0.02 Absolute Neuts (auto) 9.0 H Absolute Nucleated RBC 0.000 Nucleated RBC % 0.0 PT 12.9 INR 1.0 APTT 34.3 D-Dimer Cancelled 1.28 H Puncture Site Right radial ABG pH 7.514 H* ABG pCO2 37.4 ABG pO2 128.0 H ABG PO2/FiO2 Ratio 1.28 ABG HCO3 29.4 H ABG O2 Saturation 98.8 ABG O2 Content 18.4 ABG Base Excess 6.3 A-a Gradient 547.6 Oxyhemoglobin 98.0 Total Hemoglobin 13.2 O2 Delivery Device Non-rebreather mask O2 Liters/Min 15.0 FiO2 100 Sodium 144 Potassium 4.0 Chloride 102 Carbon Dioxide 38 H Anion Gap 4 BUN 29 H Creatinine 0.80 Estim Creat Clear Calc Not Reportable Estimated GFR > 60 Glucose 103 Lactic Acid 1.0 Calcium 10.0 Phosphorus 4.0 Magnesium 2.1 Total Bilirubin 0.7 AST 24 ALT 34 Alkaline Phosphatase 95 Troponin I < 0.012 NT-Pro-B Natriuret Pep 216 H Total Protein 8.0 Albumin 3.7 Lipase 107 Procalcitonin Urine Color Urine Appearance Urine pH Ur Specific [place] Urine Protein Urine Glucose (UA) Urine Ketones Ur Blood (Man) Urine Nitrate Urine Bilirubin Urine Urobilinogen Add Ur Microanalysis Leukocyte Esterase Rfl Urine RBC Urine WBC Ur Squamous Epith Cells Urine Bacteria Urine Casts Urine Yeast (Budding) Nasal MRSA (PCR) Influenza A (RT-PCR) Negative Influenza B (RT-PCR) Negative RSV (RT-PCR) Negative SARS-CoV-2 RNA (RT-PCR) Negative 01/15/24 01/15/24 01/15/24 17:57 19:43 19:58 WBC RBC Hgb Hct MCV MCH MCHC RDW Plt Count MPV Immature Gran % (Auto) Neut % (Auto) Lymph % (Auto) [place] % (Auto) Eos % (Auto) Baso % (Auto) Lymph # (Auto) [place] # (Auto) Eos # (Auto) Baso # (Auto) Abs Immat Gran (auto) Absolute Neuts (auto) Absolute Nucleated RBC Nucleated RBC % PT INR APTT D-Dimer Puncture Site ABG pH ABG pCO2 ABG pO2 ABG PO2/FiO2 Ratio ABG HCO3 ABG O2 Saturation ABG O2 Content ABG Base Excess A-a Gradient Oxyhemoglobin Total Hemoglobin O2 Delivery Device O2 Liters/Min FiO2 Sodium Potassium Chloride Carbon Dioxide Anion Gap BUN Creatinine Estim Creat Clear Calc Estimated GFR Glucose Lactic Acid Calcium Phosphorus Magnesium Total Bilirubin AST ALT Alkaline Phosphatase Troponin I < 0.012 NT-Pro-B Natriuret Pep Total Protein Albumin Lipase Procalcitonin Urine Color Yellow Urine Appearance Turbid H Urine pH 7.0 Ur Specific [place] 1.014 Urine Protein Negative Urine Glucose (UA) Negative Urine Ketones Negative Ur Blood (Man) Negative Urine Nitrate Negative Urine Bilirubin Negative Urine Urobilinogen 0.2 Add Ur Microanalysis Reviewed Leukocyte Esterase Rfl Negative Urine RBC 0-2 Urine WBC 0-5 Ur Squamous Epith Cells None seen Urine Bacteria None seen Urine Casts 0-2 Urine Yeast (Budding) Present H Nasal MRSA (PCR) Not detected Influenza A (RT-PCR) Influenza B (RT-PCR) RSV (RT-PCR) SARS-CoV-2 RNA (RT-PCR) 01/16/24 01:02 WBC RBC Hgb Hct MCV MCH MCHC RDW Plt Count MPV Immature Gran % (Auto) Neut % (Auto) Lymph % (Auto) [place] % (Auto) Eos % (Auto) Baso % (Auto) Lymph # (Auto) [place] # (Auto) Eos # (Auto) Baso # (Auto) Abs Immat Gran (auto) Absolute Neuts (auto) Absolute Nucleated RBC Nucleated RBC % PT INR APTT D-Dimer Puncture Site ABG pH ABG pCO2 ABG pO2 ABG PO2/FiO2 Ratio ABG HCO3 ABG O2 Saturation ABG O2 Content ABG Base Excess A-a Gradient Oxyhemoglobin Total Hemoglobin O2 Delivery Device O2 Liters/Min FiO2 Sodium Potassium Chloride Carbon Dioxide Anion Gap BUN Creatinine Estim Creat Clear Calc Estimated GFR Glucose Lactic Acid Calcium Phosphorus Magnesium Total Bilirubin AST ALT Alkaline Phosphatase Troponin I NT-Pro-B Natriuret Pep Total Protein Albumin Lipase Procalcitonin Pending Urine Color Urine Appearance Urine pH Ur Specific [place] Urine Protein Urine Glucose (UA) Urine Ketones Ur Blood (Man) Urine Nitrate Urine Bilirubin Urine Urobilinogen Add Ur Microanalysis Leukocyte Esterase Rfl Urine RBC Urine WBC Ur Squamous Epith Cells Urine Bacteria Urine Casts Urine Yeast (Budding) Nasal MRSA (PCR) Influenza A (RT-PCR) Influenza B (RT-PCR) RSV (RT-PCR) SARS-CoV-2 RNA (RT-PCR) Impressions Chest X-Ray 01/15/24 17:10 IMPRESSION: 1. Mild interstitial and airspace opacities in bilateral lower lung zones could represent mild pulmonary edema and/or pneumonia. 2. Calcified pleural plaque along the left hemidiaphragm. High Resolution CT 01/15/24 17:39 IMPRESSION: 1. Extensive tree-in-bud opacities in the dependent aspect of both lungs with more dense consolidation in the dependent aspect of the bilateral lower lobes consistent with pneumonia. This may be due to aspiration given the distribution of the presence of likely aspirated barium in the bilateral lower lobes. Chest CTA 01/15/24 19:40 IMPRESSION: 1. No pulmonary collision. 2. Extensive tree-in-bud opacities in the bilateral lower lungs with more dense consolidation in the dependent bilateral lower lobes consistent with pneumonia. Significant progression of mucus plugging throughout the lower lobar bronchi. 3. A few high attenuation material in the basilar lower lobes, left greater than right right which is suspicious for aspirated barium. Assessment and Plan Assessment and plan (1) Aspiration pneumonia: Qualifiers: Aspiration pneumonia type: unspecified Laterality: bilateral Lung location: lower lobe of lung Qualified Code(s): J69.0 - Pneumonitis due to inhalation of food and vomit Code(s): J69.0 - Pneumonitis due to inhalation of food and vomit Status: Acute (2) Acute hypoxic respiratory failure: Code(s): J96.01 - Acute respiratory failure with hypoxia Status: Acute (3) Mucus plugging of bronchi: Code(s): T17.500A - Unspecified foreign body in bronchus causing asphyxiation, initial encounter Status: Acute (4) Radiation-induced brachial plexopathy: Code(s): G54.0 - Brachial plexus disorders Status: Acute (5) Insomnia: Qualifiers: Insomnia type: due to medical condition Qualified Code(s): G47.01 - Insomnia due to medical condition Code(s): G47.00 - Insomnia, unspecified Status: Acute (6) Diarrhea: Qualifiers: Diarrhea type: unspecified type Qualified Code(s): R19.7 - Diarrhea, unspecified Code(s): R19.7 - Diarrhea, unspecified Status: Acute Plan Patient has acute hypoxic respiratory failure due to recurrent aspiration pneumonia. There may be some component of postobstructive pneumonia as well given the degree of mucus plugging noted on imaging. Patient has had a change in sputum production to green color although he has been afebrile and does not have any significant leukocytosis. Given his acute decompensation for his respiratory failure will place patient on antibiotic therapy with Zosyn and vancomycin. Blood cultures have been obtained and are pending. Will place patient on Mucomyst q.6 hours for mucolytic therapy to help with mucus plugging and encourage good pulmonary toilet with coronary valve. Will also place patient on scheduled nebulizer treatments. Patient reports that when he went to acute rehab be was not longer receiving nebulizer treatments. It is unclear however rate the patient was receiving his feet had the acute rehab. Will clarify recommended tube feed amounts with dietitian in a.m.. Will check procalcitonin, CBC and electrolyte panel in a.m.. The patient and his for interested in discussing his respiratory status with pulmonology. They are curious as to whether not a tracheostomy would be beneficial. The patient reports significant difficulty with suctioning mucus from his airway and the thickness of his sputum. They were wondering if a t racheostomy would be easier to manage or help decrease some of his aspiration. They also have questions regarding possible bronchoscopy because the patient had prior bronchoscopy could be a few years ago and afterwards they felt his respiratory status was stable for quite some time afterwards. Will I will place a pulmonology consult that so they can had discuss these matters in further detail with the appropriate service. Patient reports that he has not slept since he was extubated. He requests his home Ambien and Valium. These have been ordered. The patient is having diarrhea and had recent antibiotic use. His diarrhea has not resolved despite stopping stool softeners. He denies any abdominal pain but is still at increased risk for antibiotic associated diarrhea. Will check C dif f. Patient was recently started on nystatin oral 4 oral candidiasis this will be continued. Patient has been admitted as inpatient status and will require greater than 2 midnight stay for treatment and stabilization of his complex medical condition. Quality VTE Prophylaxis VTE prophylaxis: pharmacologic ordered (Lovenox 40 mg subQ daily.) Hospitalist [facility] Advance Care Plan I have confirmed that the patient's Advanced Care Plan is present, code status is documented, or surrogate decision maker is listed in patient medical record.: Yes Medication Reconciliation I have utilized all available resources to obtain, update and review the patients current medications (includes all prescriptions, OTC, herbals, cannabis, and nutritional supplements).: Yes
[2024-01-16] MEDS: ZOLPIDEM TARTRATE (*CRX) 5 MG TABLET FEED TUBE ×2 (00:52→21:58)
[2024-01-16] MEDS: ACETAMINOPHEN 325 MG TABLET 650 MG PO ×2 (00:52→21:59)
[2024-01-16] MEDS: diazePAM (*CRX) 10 MG TABLET 20 MG PO ×2 (00:53→21:58)
[2024-01-16] MEDS: IPRATROPIUM 0.5 MG/ALBUTEROL SULFATE 2.5 MG AMPUL.NEB 3 ML INHALATION ×4 (01:24→21:52)
[2024-01-16] MEDS: ACETYLCYSTEINE 20% INHAL SOLN 800 MG/4 ML VIAL 200 MG INHALATION ×4 (01:25→21:53)
[2024-01-16 02:01] LABS: Procalcitonin 0.2 ng/mL
[2024-01-16 05:05] LABS: Basophils Absolute Auto 0.1 K/mm3 (0.0-0.1); Basophils Percent Auto 0.5 % (0.2-1.2); Eosinophils Percent Auto 0.4 % (0-4.4); Hematocrit 38.1 % (42.0-52.0); Hemoglobin 11.9 g/dL (14.0-18.0); Immature Granulocyte Absolute 0.04 K/mm3 (0.00-0.031); Immature Granulocyte Percent A 0.4 % (0-0.5); Lymphocytes Absolute Auto 0.46 K/mm3 (0.9-3.2); Lymphocytes Percent Auto 4.5 % (18.3-44.2); Mean Corpuscular HGB Conc 31.2 g/dl (32-36); Mean Corpuscular Hemoglobin 32.4 pg (26-34); Mean Corpuscular Volume 103.8 fl (80-100); Mean Platelet Volume 12.6 fl (7.4-10.4); Monocytes Absolute Auto 0.4 K/mm3 (0.1-0.6); Monocytes Percent Auto 4.2 % (2.6-8.5); Neutrophils Absolute Auto 9.3 K/mm3 (1.3-6.7); Platelet Count Result 225 k/mm3 (150-375); Red Blood Count 3.67 M/mm3 (4.6-6.20); Red Cell Distribution Width 13.4 % (11.5-14.5); White Blood Count 10.3 K/mm3 (4.5-10.0)
[2024-01-16 05:14] LABS: Anion Gap 6 mmol/L (4-12); Blood Urea Nitrogen 24 mg/dL (9-20); Calcium 8.5 mg/dL (8.4-10.2); Carbon Dioxide 31 mmol/L (22-30); Chloride 107 mmol/L (98-107); Estimated CRCL calculation 81 ml/min; Estimated Glomerular Filt Rate > 60; Glucose 102 mg/dL (65-110); Potassium 3.5 mmol/L (3.4-5.0); Sodium 144 mmol/L (137-145)
[2024-01-16] MEDS: amLODIPine BESYLATE 5 MG TABLET FEED TUBE (09:19)
[2024-01-16] MEDS: MICONAZOLE NITRATE 2% CREAM 30 GM TUBE 1 APPLIC TOPICAL ×2 (09:19→21:59)
[2024-01-16] MEDS: FINASTERIDE 5 MG TABLET FEED TUBE (09:19)
[2024-01-16] MEDS: NYSTATIN 100,000 UNITS/ML SUSP 5 ML ORAL.SUSP PO ×2 (09:19→11:23)
[2024-01-16] MEDS: SODIUM CHLORIDE 0.9% IV 1,000 ML 125 ML IV CONT ×2 (11:22→17:12)
--- NOTE | 2024-01-16 13:31 | PM.CNPUL ---
Assessment and Plan Assessment and plan (1) Aspiration pneumonia: Qualifiers: Aspiration pneumonia type: unspecified Laterality: bilateral Lung location: lower lobe of lung Qualified Code(s): J69.0 - Pneumonitis due to inhalation of food and vomit Code(s): J69.0 - Pneumonitis due to inhalation of food and vomit Status: Acute Assessment and Plan: This is a chemical burn due to aspirating gastric contents. He has vomited several times in the last 2 days. I am not sure what type of tube feed or the rate which would be best for him. Last admission, he had hypernatremia, Na+ up to 156. he has had chronic nausea, so the type and rate of TF will make a difference in how he will tolerate it. Temp now is 101.1 due to inflammation from chemical pneumonitis with gastric acid and barium in the lungs. (2) Dysphagia: Code(s): R13.10 - Dysphagia, unspecified Status: Acute Assessment and Plan: This is long standing; has throat cancer, resected, lymph nodes removed, epiglottis was removed, had radiation, had reconstruction. He has had swallowing issues for years. His says that he has had swallowing difficulties since the cancer. He also keeps thick sputum with baseline microaspiration and episodes of macro-aspiration. (3) Acute hypoxic respiratory failure: Code(s): J96.01 - Acute respiratory failure with hypoxia Status: Acute Assessment and Plan: O2 need is high, now 80% and 45 L/min. This will be weaned as he improves. Plan plan: Pulmonary hygiene; he has a Cornet which is on the lowest setting. He was able to use it more easily earlier in the day, now he is not as able to generate force, more tired in the evening. There is no specific reversal for aspiration of barium. Bronchodilators, empiric antibiotics, nebulized Mucomyst to thin secretions, add vibratory vest tid to Cornet PEP valve to help mobilize secretions. Turn off tube feeds tonight. He had Jevity 1.5 running today, vomited again today, now has fever 101.1 and debris in mouth. Consider bronchoscopy in the morning. We did bronchoscopy in 2021 when he had similar presentation, and this removed large amount of thick secretions which said helped him for a long time afterwards. O2 therapy; now on high flow 80% and 45 L.min. He has a saturation of 95-96%. O2 need has increased over the day. History of Present Illness History of Present Illness Consult date: 01/16/24 Requesting physician: Krysten Fox DO Chief complaint: Aspiration pneumonia Narrative: patient was seen Jan 16, 2024 at 2100 Room 209 NEW: is at bedside, provides the history. 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 [facility] being in-patient Dec 28 -; was intubated Dec 28, re-intubated Jan 01, liberated Jan 04, discharged Jan 12. He was treated for severe sepsis and shock on pressors, hypernatremia, discharged on 2 L/min, sepsis was related to aspiration pneumonia. He was at [facility] Jan 12 through , had low O2 saturation on the monitor with increasing O2 need. Rehab staff transferred him to the ER, coughed extremely forcefully, vomited then aspirated barium into his lung bases, desaturated. The chest CTA confirms distribution of barium in the lower lobes, L>R, Jan 14. He has been treated with chest physiotherapy, O2, nebulized bronchodilators. He is on empiric antibiotics, Zosyn and doxycycline. PMH: DJD, squamous cell laryngeal cancer, G-tube dependence, GERD, recurrent aspiration pneumonias, hypothyroidism DATA * 01/15/2024, pH 7.51, pCO2 37 pO2 128, saturation 98% on 100% non-rebreather * 01/15/24; UA : turbid urine, budding yeast, no RBC or WBC white blood cell count 10.3, hemoglobin 11.9, hematocrit 38.1, platelet [id number] * 01/15/24 CTA FINDINGS: No pulmonary embolism. Again seen are extensive tree-in-bud opacities in the dependent lungs with more dense consolidation the bilateral lower lobes consistent with pneumonia. There is increasing mucous now filling the bilateral lower lobar bronchi. Again seen is high attenuation material within the basilar aspect of the bilateral lower lobes, left and right suspicious for aspirated barium. No pleural effusion. Heart size is normal. Atherosclerotic coronary artery calcification is. No pericardial effusion. Thoracic aorta is normal in caliber with no dissection. No pathologically enlarged thoracic lymphadenopathy. Small region of cortical scarring with dystrophic calcific lesion at the upper pole the left kidney. Mild upper thoracic levocurvature with mild spondylosis. IMPRESSION: 1. No pulmonary collision. 2. Extensive tree-in-bud opacities in the bilateral lower lungs with more dense consolidation in the dependent bilateral lower lobes consistent with pneumonia. Significant progression of mucus plugging throughout the lower lobar bronchi. 3. A few high attenuation material in the basilar lower lobes, left greater than right right which is suspicious for aspirated barium. FORMERLY [facility], [facility] Past Medical History Medical History (Updated 01/16/24 @ 01:06 by Krysten Fox DO) Cervical spine disease Constipation Dysarthria Dysphagia Dysphonia Gastrostomy tube dependent GERD (gastroesophageal reflux disease) History of aspiration pneumonia History of throat cancer XRT and surgery Hypothyroid Insomnia Malfunction of gastrostomy tube Primary squamous cell carcinoma of head and neck (~2013) Radiation-induced brachial plexopathy Spina bifida as a child with surgery; residual 'bladder issues' Surgical History Surgical History History of ear, nose, and throat (ENT) surgery PEG (percutaneous endoscopic gastrostomy) status Family History Family History Mother Colon cancer Social History Social History (Updated 01/16/24 @ 01:05 by Krysten Fox DO) Social History: Lives at home with . Never smoked. No alcohol and drug use. Code status: Full code. Surrogate decision maker: Smoking status: Never smoker Second hand tobacco smoke exposure: No Alcohol intake: never Substance use: never Substance use type: does not use Do You Feel Safe in your Home?: Yes Lack of Transportation: No Lack of Food: Never True Current Housing: I Have Housing Concerned About Future Housing: No Difficulty Paying Gas/Electric Bills: No Difficulty Paying for Meds: No Currently Unemployed: No Education: Bachelor's Degree Difficulty w/ Childcare or Family Care: No Living arrangements: with family Gender identity (if verbalized by the patient): Male Sexual Orientation (if Verbalized by the Patient): Straight or Heterosexual Spiritual care concerns: No Agree to blood products: Yes Meds Home Medications and Allergies Home Medications Medication Instructions Recorded Confirmed Type zolpidem 10 mg tablet 5 mg feeding tube HS PRN Sleep 09/07/21 01/15/24 History finasteride 5 mg tablet (Proscar) 5 mg feeding tube DAILY 03/05/22 01/15/24 History diazepam 10 mg tablet (Valium) 20 mg PO HS 05/19/22 01/15/24 History ondansetron HCl 4 mg tablet 4 mg feeding tube Q4H PRN nausea 05/19/22 01/15/24 History and [id number] amlodipine 5 mg tablet (Norvasc) 5 mg feeding tube DAILY #30 tabs 01/13/24 01/15/24 Rx acetaminophen 325 mg tablet 325 mg PO Q4H PRN Pain (Scale 01/15/24 01/16/24 History Score 1-3) miconazole nitrate 2 % topical 1 applic topical Q12H 01/15/24 01/15/24 History cream nystatin 100,000 unit/mL oral 5 ml PO TID 01/15/24 01/15/24 History suspension polyethylene glycol 3350 17 gram 17 g feeding tube BID PRN 01/15/24 01/15/24 History oral powder packet (Miralax) Constipation zolpidem 5 mg tablet 5 mg feeding tube HS 01/15/24 01/15/24 History Allergies Allergy/AdvReac Type Severity Reaction Status Date / Time No Known Allergies Allergy Verified 01/15/24 18:49 Vital Signs Vital Signs - 24 hr 01/15/24 16:08 01/15/24 16:10 01/15/24 17:32 Temperature 37.2 C Pulse Rate 98 Respiratory Rate 27 H Blood Pressure 99/68 L Pulse Oximetry 94 94 95 Oxygen Delivery Non-Rebreather Mask Nasal Cannula Oxygen Flow Rate 15 3 01/15/24 17:56 01/15/24 18:13 01/15/24 18:17 Temperature Pulse Rate 73 Respiratory Rate 24 H Blood Pressure 130/90 Pulse Oximetry 94 82 L 91 Oxygen Delivery High Flow Nasal Cannula Oxygen Flow Rate 3 10 01/15/24 20:13 01/15/24 22:07 01/15/24 23:00 Temperature 36.5 C Pulse Rate 93 86 Respiratory Rate 24 H 22 H Blood Pressure 135/81 138/80 Pulse Oximetry 94 99 100 Oxygen Delivery High Flow Nasal Cannula Oxygen Flow Rate 8 01/16/24 00:00 01/15/24 22:31 01/16/24 00:20 Temperature 36.8 C Pulse Rate 86 92 88 Respiratory Rate 20 Blood Pressure 95/58 L Pulse Oximetry 97 Oxygen Delivery Oxygen Flow Rate 01/16/24 01:16 01/16/24 01:26 01/16/24 01:26 Temperature Pulse Rate 85 Respiratory Rate 24 H Blood Pressure Pulse Oximetry 97 95 Oxygen Delivery High Flow Nasal Cannula High Flow Nasal Cannula Oxygen Flow Rate 7 7 01/16/24 01:41 01/16/24 01:56 01/16/24 03:15 Temperature Pulse Rate 80 92 Respiratory Rate 24 H Blood Pressure Pulse Oximetry 94 Oxygen Delivery High Flow Nasal Cannula Oxygen Flow Rate 8 01/16/24 04:00 01/16/24 04:00 01/16/24 05:45 Temperature 36.5 C Pulse Rate 89 88 89 Respiratory Rate 22 H Blood Pressure 138/88 Pulse Oximetry 99 Oxygen Delivery Oxygen Flow Rate 01/16/24 07:15 01/16/24 07:15 01/16/24 07:25 Temperature Pulse Rate 91 91 94 Respiratory Rate 22 H 22 H 24 H Blood Pressure Pulse Oximetry 96 Oxygen Delivery High Flow Nasal Cannula Oxygen Flow Rate 7 01/16/24 08:00 01/16/24 08:00 01/16/24 09:50 Temperature 36.4 C L Pulse Rate 88 90 91 Respiratory Rate 20 Blood Pressure 112/74 Pulse Oximetry 97 Oxygen Delivery Oxygen Flow Rate 01/16/24 12:00 01/16/24 12:41 01/16/24 12:00 Temperature 36.6 C Pulse Rate 93 93 93 Respiratory Rate 24 H Blood Pressure 99/60 L Pulse Oximetry 93 Oxygen Delivery Oxygen Flow Rate Exam Narrative: GEN: Alert, oriented, mild respiratory distress; high flow 80% & 45 L/min, sat 95%. T -101.1 F*. Thin. HEENT: pupils are equal, EOMI, symmetrical face; oral membranes dry, yellow thick particulate secretions on tongue, small pinpoint bumps on hard palate. Mallampati II airway NECK: Trachea is midline, large area of scars from throat cancer, surgery and radiation. CHEST: Harsh rhonchi both bases, symmetric excursion. No wheezes. CV: Regular S1S2 no m/g/r ABD : (+) bowel sounds, G-tube. Extremities : no clubbing, cyanosis, or edema PSYCH: normal thought and speech, gait is not tested. Results Laboratory Findings 01/16/24 04:40 01/16/24 04:40 ABG, PT/INR, D-dimer: ABG ABG pH 7.514 (7.350-7.450) H* 01/15/24 16:46 ABG pCO2 37.4 mmHg (35.0-45.0) 01/15/24 16:46 ABG pO2 128.0 mmHg (80.0-100.0) H 01/15/24 16:46 ABG O2 Saturation 98.8 % (95.0-100.0) 01/15/24 16:46 PT/INR, D-dimer PT 12.9 Seconds (11.1-14.7) 01/15/24 16:55 INR 1.0 01/15/24 16:55 D-Dimer 1.28 ug/mL (<0.48) H 01/15/24 16:55 D-Dimer Cancelled 01/15/24 16:55 Abnormal lab findings: Abnormal Labs 01/15/24 01/15/24 01/15/24 16:46 16:55 17:57 WBC RBC 4.21 L Hgb 13.4 L Hct MCV MCHC 31.9 L MPV 12.8 H Neut % (Auto) 91.1 H Lymph % (Auto) 5.0 L Lymph # (Auto) 0.49 L Abs Immat Gran (auto) Absolute Neuts (auto) 9.0 H D-Dimer 1.28 H ABG pH 7.514 H* ABG pO2 128.0 H ABG HCO3 29.4 H Carbon Dioxide 38 H BUN 29 H NT-Pro-B Natriuret Pep 216 H Urine Appearance Turbid H Urine Yeast (Budding) Present H 01/16/24 04:40 WBC 10.3 H RBC 3.67 L Hgb 11.9 L Hct 38.1 L MCV 103.8 H MCHC 31.2 L MPV 12.6 H Neut % (Auto) 90.0 H Lymph % (Auto) 4.5 L Lymph # (Auto) 0.46 L Abs Immat Gran (auto) 0.04 H Absolute Neuts (auto) 9.3 H D-Dimer ABG pH ABG pO2 ABG HCO3 Carbon Dioxide 31 H BUN 24 H NT-Pro-B Natriuret Pep Urine Appearance Urine Yeast (Budding)
--- NOTE | 2024-01-16 16:25 | PM.IMPN ---
Progress Note: A&P Assessment and Plan (1) Aspiration pneumonia: Qualifiers: Aspiration pneumonia type: unspecified Laterality: bilateral Lung location: lower lobe of lung Qualified Code(s): J69.0 - Pneumonitis due to inhalation of food and vomit Code(s): J69.0 - Pneumonitis due to inhalation of food and vomit Status: Acute (2) Acute hypoxic respiratory failure: Code(s): J96.01 - Acute respiratory failure with hypoxia Status: Acute (3) Mucus plugging of bronchi: Code(s): T17.500A - Unspecified foreign body in bronchus causing asphyxiation, initial encounter Status: Acute (4) Radiation-induced brachial plexopathy: Code(s): G54.0 - Brachial plexus disorders Status: Acute (5) Insomnia: Qualifiers: Insomnia type: due to medical condition Qualified Code(s): G47.01 - Insomnia due to medical condition Code(s): G47.00 - Insomnia, unspecified Status: Acute (6) Diarrhea: Qualifiers: Diarrhea type: unspecified type Qualified Code(s): R19.7 - Diarrhea, unspecified Code(s): R19.7 - Diarrhea, unspecified Status: Acute Plan Acute hypoxemic respiratory failure From pneumonia Patient was on 5 L oxygen this morning. No oxygen on its baseline. CT chest reviewed. Continue Zosyn doxycycline. Follow-up cultures. Pulmonology consulted. A pneumonia CT chest reviewed Content above care. Diarrhea Continue monitoring CT findings to cultures pending The Patient on chronic tube feeding noted the patient is put on bone loss and trickle feeds at nighttime Have consulted dietitian for to evaluate if patient needs to trickle feeding at night to reduce aspiration event. History of throat cancer status post surgery and radiation With the resultant dysarthria, dysphonia dysphagia. Continue tube feeding as above. As I hypothyroidism Continue medications. Insomnia Continue home Ambien Valium. DVT prophylaxis subQ Lovenox. Care plan discussed with and patient at bedside. Subjective Date/time seen: 01/16/24 16:25 Interval history: Patient comfortable at bedside and on 5 liters oxygen at the time of encounter Review of Systems Review of Systems: 12 systems were reviewed with pertinent positives and negatives per HPI. Except as documented in the HPI, all other systems were reviewed and are negative. Exam Narrative: Weight 67.7 kg BMI 20.2 Const: Other: Debilitated, appears older than stated age, no acute distress HENMT: Other: Marked skin changes and anatomical changes of the head and neck consistent with history of radical neck dissection and radiation therapy, dry mucous membranes, white plaquing to areas of oral mucosa, head is normocephalic atraumatic Eyes: Other: Pupils are equal and reactive, no scleral icterus Neck: Other: Extensive tissue changes consistent with per history of prior radical neck dissection and radiation therapy Resp: Other: Coarse rhonchi right lower lobe, decreased breath sounds left upper and lower lobe Cardio: Other: Regular rate, regular rhythm, 2+ bilateral radial pedal pulses GI: Other: Soft, nontender, nondistended, G-tube present : Other: Pure wick catheter in place Skin: Other: Generalized pallor, non jaundice, erythema excoriation of bilateral groin, flaking skin to areas of the buttock Neuro: Other: Alert orient x4, speech is hoarse and low volume, articulation is slow, no gross motor deficits noted, no obvious facial asymmetry Extrem: Other: No clubbing, cyanosis or edema of lower extremities, left hand seems somewhat edematous Psych: Other: Appropriate mood and affect, pleasant and cooperative, judgment and insight intact Objective Data Vital Signs Vital Signs: Vital Signs - 24 hr 01/15/24 17:32 01/15/24 17:56 01/15/24 18:13 Temperature Pulse Rate 73 Respiratory Rate 24 H Blood Pressure 130/90 Pulse Oximetry 95 94 82 L Oxygen Delivery Nasal Cannula Oxygen Flow Rate 3 3 Fraction of Inspired Oxygen 01/15/24 18:17 01/15/24 20:13 01/15/24 22:07 Temperature 97.7 F Pulse Rate 93 86 Respiratory Rate 24 H 22 H Blood Pressure 135/81 138/80 Pulse Oximetry 91 94 99 Oxygen Delivery High Flow Nasal Cannula Oxygen Flow Rate 10 Fraction of Inspired Oxygen 01/15/24 23:00 01/16/24 00:00 01/15/24 22:31 Temperature Pulse Rate 86 92 Respiratory Rate Blood Pressure Pulse Oximetry 100 Oxygen Delivery High Flow Nasal Cannula Oxygen Flow Rate 8 Fraction of Inspired Oxygen 01/16/24 00:20 01/16/24 01:16 01/16/24 01:26 Temperature 98.2 F Pulse Rate 88 Respiratory Rate 20 Blood Pressure 95/58 L Pulse Oximetry 97 97 95 Oxygen Delivery High Flow Nasal Cannula High Flow Nasal Cannula Oxygen Flow Rate 7 7 Fraction of Inspired Oxygen 01/16/24 01:26 01/16/24 01:41 01/16/24 01:56 Temperature Pulse Rate 85 80 92 Respiratory Rate 24 H 24 H Blood Pressure Pulse Oximetry Oxygen Delivery Oxygen Flow Rate Fraction of Inspired Oxygen 01/16/24 03:15 01/16/24 04:00 01/16/24 04:00 Temperature 97.7 F Pulse Rate 89 88 Respiratory Rate 22 H Blood Pressure 138/88 Pulse Oximetry 94 99 Oxygen Delivery High Flow Nasal Cannula Oxygen Flow Rate 8 Fraction of Inspired Oxygen 01/16/24 05:45 01/16/24 07:15 01/16/24 07:15 Temperature Pulse Rate 89 91 91 Respiratory Rate 22 H 22 H Blood Pressure Pulse Oximetry 96 Oxygen Delivery High Flow Nasal Cannula Oxygen Flow Rate 7 Fraction of Inspired Oxygen 01/16/24 07:25 01/16/24 08:00 01/16/24 08:00 Temperature 97.5 F L Pulse Rate 94 88 90 Respiratory Rate 24 H 20 Blood Pressure 112/74 Pulse Oximetry 97 Oxygen Delivery Oxygen Flow Rate Fraction of Inspired Oxygen 01/16/24 09:50 01/16/24 12:00 01/16/24 12:41 Temperature Pulse Rate 91 93 93 Respiratory Rate Blood Pressure Pulse Oximetry Oxygen Delivery Oxygen Flow Rate Fraction of Inspired Oxygen 01/16/24 12:00 01/16/24 13:10 01/16/24 13:20 Temperature 98 F Pulse Rate 93 92 95 Respiratory Rate 24 H 22 H 24 H Blood Pressure 99/60 L Pulse Oximetry 93 Oxygen Delivery Oxygen Flow Rate Fraction of Inspired Oxygen 01/16/24 15:15 Temperature Pulse Rate 100 Respiratory Rate 22 H Blood Pressure Pulse Oximetry 94 Oxygen Delivery High Flow Therapy with Na Oxygen Flow Rate 45 Fraction of Inspired Oxygen 80 Intake/Output Intake/Output: Intake & Output 01/13/24 01/14/24 01/15/24 01/16/24 23:59 23:59 23:59 23:59 Intake Total 550 1800 Output Total 600 Balance 550 1200 Meds/Results Medications: Active Medications Generic Name Dose Route Start Last Admin Trade Name Freq PRN Reason Stop Dose Admin Acetaminophen 650 mg 01/15/24 20:11 01/16/24 00:52 Acetaminophen 325 Mg Tablet PO 650 mg Q4H PRN Administration Mild Pain (1-3) or Fever Acetylcysteine 200 mg 01/16/24 02:00 01/16/24 13:08 Acetylcysteine 20% Inhal Soln 800 Mg/4 Ml Vial INHALATION 200 mg Q6HRT GELA Administration Albuterol/Ipratropium 3 ml 01/16/24 02:00 01/16/24 13:08 Ipratropium 0.5 Mg/Albuterol Sulfate 2.5 Mg Ampul.Neb 3 Ml INHALATION 3 ml Q6HRT GELA Administration Amlodipine Besylate 5 mg 01/16/24 09:00 01/16/24 09:19 Amlodipine Besylate 5 Mg Tablet FEED TUBE 5 mg DAILY GELA Administration Diazepam 20 mg 01/16/24 00:35 01/16/24 00:53 Diazepam (*Crx) 10 Mg Tablet PO 20 mg HS GELA Administration Finasteride 5 mg 01/16/24 09:00 01/16/24 09:19 Finasteride 5 Mg Tablet FEED TUBE 5 mg DAILY GELA Administration Piperacillin Sod/Tazobactam Sod 4.5 gm in 100 mls @ 200 mls/hr 01/16/24 00:00 01/16/24 11:23 Zosyn 4.5 Gm/Ns 100 Ml IVPB 200 mls/hr Q6HR GELA Administration Sodium Chloride 1,000 mls @ 125 mls/hr 01/15/24 20:15 01/16/24 11:22 Normal Saline Iv IV CONT 125 mls/hr .Q8H GELA Administration Miconazole Nitrate 1 applic 01/16/24 09:00 01/16/24 09:19 Miconazole Nitrate 2% Cream 30 Gm Tube TOPICAL 1 applic Q12H GELA Administration Nystatin 5 ml 01/16/24 09:00 01/16/24 11:23 Nystatin 100,000 Units/Ml Susp 5 Ml Oral.Susp PO 5 ml TID GELA Administration Zolpidem Tartrate 5 mg 01/16/24 00:35 01/16/24 00:52 Zolpidem Tartrate (*Crx) 5 Mg Tablet FEED TUBE 5 mg HS GELA Administration Zolpidem Tartrate 5 mg 01/16/24 00:31 Zolpidem Tartrate (*Crx) 5 Mg Tablet FEED TUBE HS PRN Intractable insomnia Radiology Results: ITS Impressions Chest X-Ray 01/15/24 17:10 IMPRESSION: 1. Mild interstitial and airspace opacities in bilateral lower lung zones could represent mild pulmonary edema and/or pneumonia. 2. Calcified pleural plaque along the left hemidiaphragm. High Resolution CT 01/15/24 17:39 IMPRESSION: 1. Extensive tree-in-bud opacities in the dependent aspect of both lungs with more dense consolidation in the dependent aspect of the bilateral lower lobes consistent with pneumonia. This may be due to aspiration given the distribution of the presence of likely aspirated barium in the bilateral lower lobes. Chest CTA 01/15/24 19:40 IMPRESSION: 1. No pulmonary collision. 2. Extensive tree-in-bud opacities in the bilateral lower lungs with more dense consolidation in the dependent bilateral lower lobes consistent with pneumonia. Significant progression of mucus plugging throughout the lower lobar bronchi. 3. A few high attenuation material in the basilar lower lobes, left greater than right right which is suspicious for aspirated barium. Labs Labs: Laboratory Results - last 24 hr 01/15/24 01/15/24 01/15/24 16:46 16:55 16:55 WBC 9.9 RBC 4.21 L Hgb 13.4 L Hct 42.0 MCV 99.8 MCH 31.8 MCHC 31.9 L RDW 13.5 Plt Count 250 MPV 12.8 H Immature Gran % (Auto) 0.2 Neut % (Auto) 91.1 H Lymph % (Auto) 5.0 L [place] % (Auto) 2.9 Eos % (Auto) 0.4 Baso % (Auto) 0.4 Lymph # (Auto) 0.49 L [place] # (Auto) 0.3 Eos # (Auto) 0.0 Baso # (Auto) 0.0 Abs Immat Gran (auto) 0.02 Absolute Neuts (auto) 9.0 H Absolute Nucleated RBC 0.000 Nucleated RBC % 0.0 PT 12.9 INR 1.0 APTT 34.3 D-Dimer Cancelled 1.28 H Puncture Site Right radial ABG pH 7.514 H* ABG pCO2 37.4 ABG pO2 128.0 H ABG PO2/FiO2 Ratio 1.28 ABG HCO3 29.4 H ABG O2 Saturation 98.8 ABG O2 Content 18.4 ABG Base Excess 6.3 A-a Gradient 547.6 Oxyhemoglobin 98.0 Total Hemoglobin 13.2 O2 Delivery Device Non-rebreather mask O2 Liters/Min 15.0 FiO2 100 Sodium 144 Potassium 4.0 Chloride 102 Carbon Dioxide 38 H Anion Gap 4 BUN 29 H Creatinine 0.80 Estim Creat Clear Calc Not Reportable Estimated GFR > 60 Glucose 103 Lactic Acid 1.0 Calcium 10.0 Phosphorus 4.0 Magnesium 2.1 Total Bilirubin 0.7 AST 24 ALT 34 Alkaline Phosphatase 95 Troponin I < 0.012 NT-Pro-B Natriuret Pep 216 H Total Protein 8.0 Albumin 3.7 Lipase 107 Procalcitonin Urine Color Urine Appearance Urine pH Ur Specific [place] Urine Protein Urine Glucose (UA) Urine Ketones Ur Blood (Man) Urine Nitrate Urine Bilirubin Urine Urobilinogen Add Ur Microanalysis Leukocyte Esterase Rfl Urine RBC Urine WBC Ur Squamous Epith Cells Urine Bacteria Urine Casts Urine Yeast (Budding) Nasal MRSA (PCR) Influenza A (RT-PCR) Negative Influenza B (RT-PCR) Negative RSV (RT-PCR) Negative SARS-CoV-2 RNA (RT-PCR) Negative 01/15/24 01/15/24 01/15/24 17:57 19:43 19:58 WBC RBC Hgb Hct MCV MCH MCHC RDW Plt Count MPV Immature Gran % (Auto) Neut % (Auto) Lymph % (Auto) [place] % (Auto) Eos % (Auto) Baso % (Auto) Lymph # (Auto) [place] # (Auto) Eos # (Auto) Baso # (Auto) Abs Immat Gran (auto) Absolute Neuts (auto) Absolute Nucleated RBC Nucleated RBC % PT INR APTT D-Dimer Puncture Site ABG pH ABG pCO2 ABG pO2 ABG PO2/FiO2 Ratio ABG HCO3 ABG O2 Saturation ABG O2 Content ABG Base Excess A-a Gradient Oxyhemoglobin Total Hemoglobin O2 Delivery Device O2 Liters/Min FiO2 Sodium Potassium Chloride Carbon Dioxide Anion Gap BUN Creatinine Estim Creat Clear Calc Estimated GFR Glucose Lactic Acid Calcium Phosphorus Magnesium Total Bilirubin AST ALT Alkaline Phosphatase Troponin I < 0.012 NT-Pro-B Natriuret Pep Total Protein Albumin Lipase Procalcitonin Urine Color Yellow Urine Appearance Turbid H Urine pH 7.0 Ur Specific [place] 1.014 Urine Protein Negative Urine Glucose (UA) Negative Urine Ketones Negative Ur Blood (Man) Negative Urine Nitrate Negative Urine Bilirubin Negative Urine Urobilinogen 0.2 Add Ur Microanalysis Reviewed Leukocyte Esterase Rfl Negative Urine RBC 0-2 Urine WBC 0-5 Ur Squamous Epith Cells None seen Urine Bacteria None seen Urine Casts 0-2 Urine Yeast (Budding) Present H Nasal MRSA (PCR) Not detected Influenza A (RT-PCR) Influenza B (RT-PCR) RSV (RT-PCR) SARS-CoV-2 RNA (RT-PCR) 01/16/24 01/16/24 01:02 04:40 WBC 10.3 H RBC 3.67 L Hgb 11.9 L Hct 38.1 L MCV 103.8 H MCH 32.4 MCHC 31.2 L RDW 13.4 Plt Count 225 MPV 12.6 H Immature Gran % (Auto) 0.4 Neut % (Auto) 90.0 H Lymph % (Auto) 4.5 L [place] % (Auto) 4.2 Eos % (Auto) 0.4 Baso % (Auto) 0.5 Lymph # (Auto) 0.46 L [place] # (Auto) 0.4 Eos # (Auto) 0.0 Baso # (Auto) 0.1 Abs Immat Gran (auto) 0.04 H Absolute Neuts (auto) 9.3 H Absolute Nucleated RBC 0.000 Nucleated RBC % 0.0 PT INR APTT D-Dimer Puncture Site ABG pH ABG pCO2 ABG pO2 ABG PO2/FiO2 Ratio ABG HCO3 ABG O2 Saturation ABG O2 Content ABG Base Excess A-a Gradient Oxyhemoglobin Total Hemoglobin O2 Delivery Device O2 Liters/Min FiO2 Sodium 144 Potassium 3.5 Chloride 107 Carbon Dioxide 31 H Anion Gap 6 BUN 24 H Creatinine 0.70 Estim Creat Clear Calc 81 Estimated GFR > 60 Glucose 102 Lactic Acid Calcium 8.5 Phosphorus Magnesium Total Bilirubin AST ALT Alkaline Phosphatase Troponin I NT-Pro-B Natriuret Pep Total Protein Albumin Lipase Procalcitonin 0.2 Urine Color Urine Appearance Urine pH Ur Specific [place] Urine Protein Urine Glucose (UA) Urine Ketones Ur Blood (Man) Urine Nitrate Urine Bilirubin Urine Urobilinogen Add Ur Microanalysis Leukocyte Esterase Rfl Urine RBC Urine WBC Ur Squamous Epith Cells Urine Bacteria Urine Casts Urine Yeast (Budding) Nasal MRSA (PCR) Influenza A (RT-PCR) Influenza B (RT-PCR) RSV (RT-PCR) SARS-CoV-2 RNA (RT-PCR) Quality VTE Prophylaxis VTE prophylaxis: pharmacologic ordered (Lovenox 40 mg subQ daily.)
[2024-01-16] MEDS: DOXYCYCLINE 100 MG/NS 100 ML 100 MG/100 ML BAG IVPB (18:45)
[2024-01-16] MEDS: ONDANSETRON INJ 4 MG/2 ML VIAL IV PUSH (19:05)
--- NOTE | 2024-01-16 20:07 | PC.NURSE ---
Patient complaining of N/V, 4mg zofran given, tube feedings held.
--- NOTE | 2024-01-16 20:09 | PC.NURSE ---
@ 14:50pm, Patient SPO@ 82%, 14LHFNC, patient was transitioned to vapotherm. Dr. Cerna notfied.
[2024-01-17] VITALS (34 sets, daily range): BP systolic 108–141; BP diastolic 65–88; PULSE 95–109; RESP 18–24; TEMP 36.3–37.1; O2SAT 92–100; BMI 20.8
[2024-01-17] MEDS: ACETYLCYSTEINE 20% INHAL SOLN 800 MG/4 ML VIAL 200 MG INHALATION ×4 (02:50→21:36)
[2024-01-17] MEDS: IPRATROPIUM 0.5 MG/ALBUTEROL SULFATE 2.5 MG AMPUL.NEB 3 ML INHALATION ×4 (02:50→21:36)
[2024-01-17] MEDS: DOXYCYCLINE 100 MG/NS 100 ML 100 MG/100 ML BAG IVPB ×2 (04:53→17:19)
[2024-01-17] MEDS: SODIUM CHLORIDE 0.9% IV 1,000 ML 125 ML IV CONT ×3 (04:56→21:18)
[2024-01-17 05:38] LABS: Hemoglobin 12.2 g/dL (14.0-18.0); Immature Platelet Fraction Pct 9.5 % (0.9-11.2); Mean Corpuscular HGB Conc 30.5 g/dl (32-36); Mean Corpuscular Hemoglobin 31.4 pg (26-34); Mean Corpuscular Volume 102.8 fl (80-100); Mean Platelet Volume 13.2 fl (7.4-10.4); Platelet Count Result 238 k/mm3 (150-375); Red Blood Count 3.89 M/mm3 (4.6-6.20); Red Cell Distribution Width 13.3 % (11.5-14.5); White Blood Count 11.2 K/mm3 (4.5-10.0)
[2024-01-17 05:49] LABS: Alanine Aminotransferase 23 U/L (6-50); Albumin Level 3.3 g/dL (3.5-5.1); Alkaline Phosphatase 88 U/L (38-126); Anion Gap 6 mmol/L (4-12); Aspartate Amino Transferase 20 U/L (17-59); Bilirubin,Total 0.9 mg/dL (0.2-1.3); Blood Urea Nitrogen 25 mg/dL (9-20); Calcium 8.9 mg/dL (8.4-10.2); Carbon Dioxide 37 mmol/L (22-30); Chloride 106 mmol/L (98-107); Estimated CRCL calculation 84 ml/min; Estimated Glomerular Filt Rate > 60; Glucose 124 mg/dL (65-110); Magnesium 1.8 mg/dL (1.6-2.3); Potassium 3.5 mmol/L (3.4-5.0); Sodium 149 mmol/L (137-145)
[2024-01-17] MEDS: PIPERACILLIN/TAZ 4.5G/NS 100ML 4.5 GM/100 ML BAG IVPB ×4 (06:13→23:29)
[2024-01-17 06:15] LABS: Band Neutrophils Percent 21 % (0-6); Lymphocytes Absolute Manual 0.33 K/mm3 (1.1-4.5); Lymphocytes Percent Manual 3 % (18-44); Monocytes Absolute Manual 0.22 K/mm3 (0.1-0.90); Monocytes Percent Manual 2 % (3-9); Neutrophils Absolute Manual 10.64 K/mm3 (1.3-6.7); Neutrophils Percent Manual 74 % (46-73); Total Cells Counted 100
[2024-01-17 06:17] LABS: Platelet Estimate Adequate (Adequate); Schistocytes None Seen
[2024-01-17] MEDS: NYSTATIN 100,000 UNITS/ML SUSP 5 ML ORAL.SUSP PO ×2 (09:07→15:40)
--- NOTE | 2024-01-17 10:33 | P.PNPL_ITS ---
Progress Note: A&P Assessment and Plan (1) Aspiration pneumonia: Qualifiers: Aspiration pneumonia type: unspecified Laterality: bilateral Lung location: lower lobe of lung Qualified Code(s): J69.0 - Pneumonitis due to inhalation of food and vomit Code(s): J69.0 - Pneumonitis due to inhalation of food and vomit Status: Acute Assessment and Plan: This is a chemical burn due to aspirating gastric contents. He has vomited several times in the last 3 days. He is not tolerating tube feeds, has been on a variety of TF at different rates. Last admission, he had hypernatremia, Na+ up to 156. He has had chronic nausea, so the type and rate of TF may make a difference in how he will tolerate it. He was febrile last night 101.1 due to inflammation from chemical pneumonitis with gastric acid and barium in the lungs. He will continue to have aspiration until the underlying GI problem is resolved. He has had a feeding tube for years, placed by [facility] health communications specialist Dr Lloyd Sykes at [facility]. (2) Dysphagia: Code(s): R13.10 - Dysphagia, unspecified Status: Acute Assessment and Plan: This is long standing; has throat cancer, resected, lymph nodes removed, epiglottis was removed, had radiation, had reconstruction. He has had swallowing issues for years. His says that he has had swallowing difficulties since the cancer. He also keeps thick sputum with baseline microaspiration and episodes of macro-aspiration. (3) Acute hypoxic respiratory failure: Code(s): J96.01 - Acute respiratory failure with hypoxia Status: Acute Assessment and Plan: O2 need is improving, 70% and 45 L/min. Saturation is 96%. O2 can be weaned. Plan plan: I do not plan to perform bronchoscopy. He has recurrent vomiting, will continue to aspirate. He has LUQ discomfort, rising sodium 147, needs more free water. Continue pulmonary hygiene; he has a Cornet which is on the middle setting, 2nd notch. He has a Cornet valve at home, does not use it. He needs a pulmonary hygiene daily schedule to maintain airways as clear as poss ible. Continue to use vibratory vest, used this morning, tolerated it. He has not had adequate nutrition for 15 days. He is not tolerating a variety of tube feeds at different rates, trickle or bolus, has vomiting with macro- aspiration and microaspiration, When he feels burning in the chest, this is definitely gastric acid. He is likely having aspiration even when he is not aware of it. 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 He sees [facility] Dr Larry Hinojosa for primary care, does not see GI or pulmonary unless he is admitted, prefers [facility] but also has been at [facility], and went to GI doctor in [place], [place] a year ago for second opinion. THe GI doctor there did not offer any additional treatment but told them that the surgery that was offered in [facility], possibly Stanley fundoplication, would not work, and he could never vomit again. There is no specific reversal for aspiration of barium. Bronchodilators, empiric antibiotics, nebulized Mucomyst to thin secretions, add vibratory vest tid to Cornet PEP valve to help mobilize secretions. I will continue to follow with you. Long discussion with about the big picture. His lungs are the innocent bystander, getting the acid and causing inflammation when he aspirates. He needs a coordinated plan of care with IM, GI, pulm, air bag builder, physical therapist. Consider keeping all the specialists in one system, maybe [facility] as his primary care is associated with [facility].. Subjective Date/time seen: 01/17/24 10:33 Interval history: 01/16; hosp follow up: Haylee is at the bedside. Patient used the vibratory vest today, was too tired last night. He vomited again overnight. O2 requirement is now high flow 70% and 45 L/min. Sat is 96%.He has LUQ discomfort for the last week. Na+ 147, increasing due to volume loss. He did this last admission. Defer fluids to hospitalist. WBC is a little higher, 11.2. 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 He was at [facility] after being in-patient Dec 28 -; was intubated Dec 28, re-intubated Jan 01, liberated Jan 04, discharged Jan 12. He was treated for severe sepsis and shock on pressors, hypernatremia, discharged on 2 L/min, sepsis was related to aspiration pneumonia. He was at [facility] Jan 12 through , had low O2 saturation on the monitor with increasing O2 need. Rehab staff transferred him to the ER, coughed extremely forcefully, vomited then aspirated barium into his lung bases, anna aturated. The chest CTA confirms distribution of barium in the lower lobes, L>R, Jan 14. He has been treated with chest physiotherapy, O2, nebulized bronchodilators. He is on empiric antibiotics, Zosyn and doxycycline. DATA * 01/15/2024, pH 7.51, pCO2 37 pO2 128, saturation 98% on 100% non-rebreather * 01/15/24; UA : turbid urine, budding yeast, no RBC or WBC white blood cell count 10.3, hemoglobin 11.9, hematocrit 38.1, platelet [id number] * 01/15/24 CTA FINDINGS: No pulmonary embolism. Again seen are extensive tree-in-bud opacities in the dependent lungs with more dense consolidation the bilateral lower lobes consistent with pneumonia. There is increasing mucous now filling the bilateral lower lobar bronchi. Again seen is high attenuation material within the basilar aspect of the bilateral lower lobes, left and right suspicious for aspirated barium. No pleural effusion. Heart size is normal. Atherosclerotic coronary artery calcification is. No pericardial effusion. Thoracic aorta is normal in caliber with no dissection. No pathologically enlarged thoracic lymphadenopathy. Small region of cortical scarring with dystrophic calcific lesion at the upper pole the left kidney. Mild upper thoracic levocurvature with mild spondylosis. IMPRESSION: 1. No pulmonary collision. 2. Extensive tree-in-bud opacities in the bilateral lower lungs with more dense consolidation in the dependent bilateral lower lobes consistent with pneumonia. Significant progression of mucus plugging throughout the lower lobar bronchi. 3. A few high attenuation material in the basilar lower lobes, left greater than right right which is suspicious for aspirated barium. Review of Systems Review of Systems: He has LUQ discomfort for the last week. All systems reviewed & are unremarkable except as noted in HPI and below Exam Narrative: GEN: Alert, oriented, mild respiratory distress; high flow 70% & 45 L/min, sat 96%.T 36.5, not febrile. HEENT: pupils are equal, EOMI, symmetrical face; oral membranes dry, still has yellow thick particulate secretions on tongue, small pinpoint bumps on hard palate. Mallampati II airway. NECK: Trachea is midline, large area of scars from throat cancer, surgery and radiation. CHEST: Harsh rhonchi both bases, symmetric excursion. No wheezes. CV: Regular S1S2 no m/g/r ABD : (+) bowel sounds, G-tube. Extremities : no clubbing, cyanosis, or edema PSYCH: normal thought and speech, gait is not tested. Objective Data Vital Signs Vital Signs: Vital Signs - 24 hr 01/16/24 12:00 01/16/24 12:41 01/16/24 12:00 Temperature 36.6 C Pulse Rate 93 93 93 Respiratory Rate 24 H Blood Pressure 99/60 L Pulse Oximetry 93 Oxygen Delivery Oxygen Flow Rate Fraction of Inspired Oxygen 01/16/24 13:10 01/16/24 13:20 01/16/24 15:15 Temperature Pulse Rate 92 95 100 Respiratory Rate 22 H 24 H 22 H Blood Pressure Pulse Oximetry 94 Oxygen Delivery High Flow Therapy with Na Oxygen Flow Rate 45 Fraction of Inspired Oxygen 80 01/16/24 16:00 01/16/24 19:21 01/16/24 21:59 Temperature 37.3 C 36.3 C L 38.4 C H Pulse Rate 97 98 Respiratory Rate 18 16 Blood Pressure 101/63 110/66 Pulse Oximetry 95 96 Oxygen Delivery Oxygen Flow Rate Fraction of Inspired Oxygen 01/16/24 21:53 01/16/24 22:18 01/16/24 22:18 Temperature Pulse Rate 114 H 114 H 112 H Respiratory Rate 22 H 22 H Blood Pressure Pulse Oximetry 96 Oxygen Delivery High Flow Therapy with Na Oxygen Flow Rate 45 Fraction of Inspired Oxygen 80 01/16/24 20:00 01/17/24 00:00 01/17/24 01:30 Temperature 37.1 C Pulse Rate 101 H Respiratory Rate 20 Blood Pressure 108/65 Pulse Oximetry 96 92 93 Oxygen Delivery High Flow Therapy with Na High Flow Therapy with Na Oxygen Flow Rate 45 45 Fraction of Inspired Oxygen 80 100 01/16/24 20:00 01/16/24 22:00 01/17/24 00:00 Temperature Pulse Rate 103 H 100 109 H Respiratory Rate Blood Pressure Pulse Oximetry Oxygen Delivery Oxygen Flow Rate Fraction of Inspired Oxygen 01/17/24 02:00 01/17/24 02:50 01/17/24 02:56 Temperature Pulse Rate 101 H 101 H 102 H Respiratory Rate 22 H Blood Pressure Pulse Oximetry 95 Oxygen Delivery High Flow Therapy with Na Oxygen Flow Rate 45 Fraction of Inspired Oxygen 80 01/17/24 03:01 01/17/24 04:00 01/17/24 04:00 Temperature Pulse Rate 102 H 99 Respiratory Rate 22 H Blood Pressure Pulse Oximetry 99 Oxygen Delivery High Flow Therapy with Na Oxygen Flow Rate 45 Fraction of Inspired Oxygen 80 01/17/24 04:00 01/16/24 22:59 01/17/24 06:00 Temperature 36.3 C L 38.0 C H Pulse Rate 101 H 98 Respiratory Rate 18 Blood Pressure 128/69 Pulse Oximetry 99 Oxygen Delivery Oxygen Flow Rate Fraction of Inspired Oxygen 01/17/24 07:42 01/17/24 07:43 01/17/24 07:55 Temperature Pulse Rate 100 101 H Respiratory Rate 20 20 Blood Pressure Pulse Oximetry 100 Oxygen Delivery High Flow Therapy with Na Oxygen Flow Rate 45 Fraction of Inspired Oxygen 80 01/17/24 07:48 01/17/24 08:59 Temperature 36.5 C Pulse Rate 100 Respiratory Rate 20 Blood Pressure 134/77 Pulse Oximetry 100 95 Oxygen Delivery High Flow Therapy with Na Oxygen Flow Rate 45 Fraction of Inspired Oxygen 70 Intake/Output Intake/Output: Intake & Output 01/14/24 01/15/24 01/16/24 01/17/24 23:59 23:59 23:59 23:59 Intake Total 550 2829.2 1300 Output Total 1100 300 Balance 550 1729.2 1000 Meds/Results Medications: Active Medications Generic Name Dose Route Start Last Admin Trade Name Freq PRN Reason Stop Dose Admin Acetaminophen 650 mg 01/15/24 20:11 01/16/24 21:59 Acetaminophen 325 Mg Tablet PO 650 mg Q4H PRN Administration Mild Pain (1-3) or Fever Acetylcysteine 200 mg 01/16/24 02:00 01/17/24 07:39 Acetylcysteine 20% Inhal Soln 800 Mg/4 Ml Vial INHALATION 200 mg Q6HRT GELA Administration Albuterol/Ipratropium 3 ml 01/16/24 02:00 01/17/24 07:39 Ipratropium 0.5 Mg/Albuterol Sulfate 2.5 Mg Ampul.Neb 3 Ml INHALATION 3 ml Q6HRT GELA Administration Amlodipine Besylate 5 mg 01/16/24 09:00 01/16/24 09:19 Amlodipine Besylate 5 Mg Tablet FEED TUBE 5 mg DAILY GELA Administration Diazepam 20 mg 01/16/24 00:35 01/16/24 21:58 Diazepam (*Crx) 10 Mg Tablet PO 20 mg HS GELA Administration Enoxaparin Sodium 40 mg 01/17/24 09:00 Enoxaparin 40 Mg/0.4 Ml Syringe SUB-Q DAILY GELA Finasteride 5 mg 01/16/24 09:00 01/16/24 09:19 Finasteride 5 Mg Tablet FEED TUBE 5 mg DAILY GELA Administration Piperacillin Sod/Tazobactam Sod 4.5 gm in 100 mls @ 200 mls/hr 01/16/24 00:00 01/17/24 06:45 Zosyn 4.5 Gm/Ns 100 Ml IVPB Infused Q6HR GELA Infusion Sodium Chloride 1,000 mls @ 125 mls/hr 01/15/24 20:15 01/17/24 04:56 Normal Saline Iv IV CONT 125 mls/hr .Q8H GELA Administration Doxycycline Hyclate 100 mg in 100 mls @ 100 mls/hr 01/16/24 17:00 01/17/24 05:55 Vibramycin 100 Mg/Ns 100 Ml IVPB Infused Q12H GELA Infusion Miconazole Nitrate 1 applic 01/16/24 09:00 01/16/24 21:59 Miconazole Nitrate 2% Cream 30 Gm Tube TOPICAL 1 applic Q12H GELA Administration Nystatin 5 ml 01/16/24 09:00 01/17/24 09:07 Nystatin 100,000 Units/Ml Susp 5 Ml Oral.Susp PO 5 ml TID GELA Administration Zolpidem Tartrate 5 mg 01/16/24 00:35 01/16/24 21:58 Zolpidem Tartrate (*Crx) 5 Mg Tablet FEED TUBE 5 mg HS GELA Administration Zolpidem Tartrate 5 mg 01/16/24 00:31 Zolpidem Tartrate (*Crx) 5 Mg Tablet FEED TUBE HS PRN Intractable insomnia Radiology Results: ITS Impressions Chest X-Ray 01/15/24 17:10 IMPRESSION: 1. Mild interstitial and airspace opacities in bilateral lower lung zones could represent mild pulmonary edema and/or pneumonia. 2. Calcified pleural plaque along the left hemidiaphragm. High Resolution CT 01/15/24 17:39 IMPRESSION: 1. Extensive tree-in-bud opacities in the dependent aspect of both lungs with more dense consolidation in the dependent aspect of the bilateral lower lobes consistent with pneumonia. This may be due to aspiration given the distribution of the presence of likely aspirated barium in the bilateral lower lobes. Chest CTA 01/15/24 19:40 IMPRESSION: 1. No pulmonary collision. 2. Extensive tree-in-bud opacities in the bilateral lower lungs with more dense consolidation in the dependent bilateral lower lobes consistent with pneumonia. Significant progression of mucus plugging throughout the lower lobar bronchi. 3. A few high attenuation material in the basilar lower lobes, left greater than right right which is suspicious for aspirated barium. Labs Labs: Laboratory Results - last 24 hr 01/17/24 05:06 WBC 11.2 H RBC 3.89 L Hgb 12.2 L Hct 40.0 L MCV 102.8 H MCH 31.4 MCHC 30.5 L RDW 13.3 Plt Count 238 MPV 13.2 H Immature Gran % (Auto) Not Reportable Neut % (Auto) Not Reportable Lymph % (Auto) Not Reportable [place] % (Auto) Not Reportable Eos % (Auto) Not Reportable Baso % (Auto) Not Reportable Lymph # (Auto) Not Reportable [place] # (Auto) Not Reportable Eos # (Auto) Not Reportable Baso # (Auto) Not Reportable Abs Immat Gran (auto) Not Reportable Absolute Neuts (auto) Not Reportable Absolute Nucleated RBC Not Reportable Total Counted 100 Neutrophils % (Manual) 74 H Band Neutrophils % 21 H Lymphocytes % (Manual) 3 L Monocytes % (Manual) 2 L Nucleated RBC % Not Reportable Abs Neuts (Manual) 10.64 H Abs Lymphs (Manual) 0.33 L Abs Monocytes (Manual) 0.22 Platelet Estimate Adequate % Immature Plt Fraction 9.5 Schistocytes None seen Sodium 149 H Potassium 3.5 Chloride 106 Carbon Dioxide 37 H Anion Gap 6 BUN 25 H Creatinine 0.70 Estim Creat Clear Calc 84 Estimated GFR > 60 Glucose 124 H Calcium 8.9 Magnesium 1.8 Total Bilirubin 0.9 AST 20 ALT 23 Alkaline Phosphatase 88 Total Protein 7.0 Albumin 3.3 L
[2024-01-17 12:15] LABS: Hematocrit 37.8 % (42.0-52.0); Hemoglobin 11.7 g/dL (14.0-18.0); Mean Corpuscular Hemoglobin 31.6 pg (26-34); Mean Corpuscular Volume 102.2 fl (80-100); Mean Platelet Volume 12.9 fl (7.4-10.4); Platelet Count Result 195 k/mm3 (150-375); Red Cell Distribution Width 13.5 % (11.5-14.5); White Blood Count 10.4 K/mm3 (4.5-10.0)
[2024-01-17 12:26] LABS: Partial Thromboplastin Time 42.1 Seconds (22.3-36.8)
[2024-01-17 12:28] LABS: Glucose Point of Care 114 mg/dl (65-105)
[2024-01-17 12:34] LABS: Alanine Aminotransferase 21 U/L (6-50); Albumin Level 2.9 g/dL (3.5-5.1); Alkaline Phosphatase 80 U/L (38-126); Anion Gap 4 mmol/L (4-12); Aspartate Amino Transferase 19 U/L (17-59); Bilirubin,Total 0.7 mg/dL (0.2-1.3); Blood Urea Nitrogen 24 mg/dL (9-20); Calcium 8.5 mg/dL (8.4-10.2); Carbon Dioxide 35 mmol/L (22-30); Chloride 108 mmol/L (98-107); Estimated CRCL calculation 96 ml/min; Estimated Glomerular Filt Rate > 60; Glucose 126 mg/dL (65-110); Magnesium 1.9 mg/dL (1.6-2.3); Potassium 3.6 mmol/L (3.4-5.0); Sodium 147 mmol/L (137-145)
[2024-01-17 12:41] LABS: Band Neutrophils Percent 20 % (0-6); Lymphocytes Absolute Manual 0.41 K/mm3 (1.1-4.5); Lymphocytes Percent Manual 4 % (18-44); Monocytes Percent Manual 2 % (3-9); Neutrophils Absolute Manual 9.77 K/mm3 (1.3-6.7); Neutrophils Percent Manual 74 % (46-73); Schistocytes None Seen; Total Cells Counted 100; Transferrin 142 mg/dL (206-381)
[2024-01-17 12:43] LABS: Platelet Estimate Adequate (Adequate)
[2024-01-17 12:48] LABS: Large Platelets Present
[2024-01-17] MEDS: ENOXAPARIN 40 MG/0.4 ML SYRINGE SUB-Q (15:10)
[2024-01-17] MEDS: AMINO ACIDS 4.25%/D5W/LYTES/CA 2,000 ML 80 ML IV CONT (15:10)
[2024-01-17] MEDS: MICONAZOLE NITRATE 2% CREAM 30 GM TUBE 1 APPLIC TOPICAL ×2 (15:10→21:07)
[2024-01-17] MEDS: FAT EMULSIONS IV 20% 250 ML 20.83 ML IVPB (15:15)
--- NOTE | 2024-01-17 16:08 | WPDGICN ---
Assessment and Plan Assessment and plan (1) Aspiration pneumonia: Qualifiers: Aspiration pneumonia type: unspecified Laterality: bilateral Lung location: lower lobe of lung Qualified Code(s): J69.0 - Pneumonitis due to inhalation of food and vomit Code(s): J69.0 - Pneumonitis due to inhalation of food and vomit Status: Acute Assessment and Plan: The patient has severe aspiration pneumonia episode secondary to nausea and vomiting of gastric contents. Small amount of barium were administered through the PEG tube earlier today, not demonstrating any small-bowel obstruction, with good permeability of his entire GI tract. Therefore, mechanical causes have been ruled out. However, due to his complex medical problems, he may have an element of severe gastric dysmotility. A gastric emptying study is suggested and will be ordered. If there is an element of gastroparesis, some doses of metoclopramide intravenously can be tried, but not before the study is completed. (2) PEG (percutaneous endoscopic gastrostomy) status: Code(s): Z93.1 - Gastrostomy status Status: Acute GI Consult Note Consult date/time: 01/17/24 16:08 HPI: Mal Akhtar is a 68 year old male, intubated and extubated many times in the recent past due to massive aspiration pneumonia with septic shock and hypernatremia. 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 He has been seen intermittently by several specialists in different hospitals. He has vomited several times in the last 3 days and has chronic vomiting, despite aspiration precautions, to the point that he does not tolerate any feedings through his PEG tube. He is currently being treated for another episode of aspiration pneumonia, and peripheral hyperalimentation has been started. Review of Systems Review of Systems: All systems reviewed & are unremarkable except as noted in HPI and below PMFSH Past Medical History Medical History (Updated 01/16/24 @ 22:54 by Krysten Fox DO) Cervical spine disease Constipation Dysarthria Dysphagia Dysphonia Gastrostomy tube dependent GERD (gastroesophageal reflux disease) History of aspiration pneumonia History of throat cancer XRT and surgery Hypothyroid Insomnia Malfunction of gastrostomy tube Primary squamous cell carcinoma of head and neck (~2013) Radiation-induced brachial plexopathy Spina bifida as a child with surgery; residual 'bladder issues' Surgical History Surgical History History of ear, nose, and throat (ENT) surgery PEG (percutaneous endoscopic gastrostomy) status Family History Family History Mother Colon cancer Social History Social History (Updated 01/16/24 @ 01:05 by Krysten Fox DO) Social History: Lives at home with . Never smoked. No alcohol and drug use. Code status: Full code. Surrogate decision maker: Smoking status: Never smoker Second hand tobacco smoke exposure: No Alcohol intake: never Substance use: never Substance use type: does not use Do You Feel Safe in your Home?: Yes Lack of Transportation: No Lack of Food: Never True Current Housing: I Have Housing Concerned About Future Housing: No Difficulty Paying Gas/Electric Bills: No Difficulty Paying for Meds: No Currently Unemployed: No Education: Bachelor's Degree Difficulty w/ Childcare or Family Care: No Living arrangements: with family Gender identity (if verbalized by the patient): Male Sexual Orientation (if Verbalized by the Patient): Straight or Heterosexual Spiritual care concerns: No Agree to blood products: Yes Meds Home Medications and Allergies Home Medications Medication Instructions Recorded Confirmed Type zolpidem 10 mg tablet 5 mg feeding tube HS PRN Sleep 09/07/21 01/15/24 History finasteride 5 mg tablet (Proscar) 5 mg feeding tube DAILY 03/05/22 01/15/24 History diazepam 10 mg tablet (Valium) 20 mg PO HS 05/19/22 01/15/24 History ondansetron HCl 4 mg tablet 4 mg feeding tube Q4H PRN nausea 05/19/22 01/15/24 History and [id number] amlodipine 5 mg tablet (Norvasc) 5 mg feeding tube DAILY #30 tabs 01/13/24 01/15/24 Rx acetaminophen 325 mg tablet 325 mg PO Q4H PRN Pain (Scale 01/15/24 01/16/24 History Score 1-3) miconazole nitrate 2 % topical 1 applic topical Q12H 01/15/24 01/15/24 History cream nystatin 100,000 unit/mL oral 5 ml PO TID 01/15/24 01/15/24 History suspension polyethylene glycol 3350 17 gram 17 g feeding tube BID PRN 01/15/24 01/15/24 History oral powder packet (Miralax) Constipation zolpidem 5 mg tablet 5 mg feeding tube HS 01/15/24 01/15/24 History Allergies Allergy/AdvReac Type Severity Reaction Status Date / Time No Known Allergies Allergy Verified 01/15/24 18:49 Vital Signs Vital Signs - 24 hr 01/16/24 19:21 01/16/24 21:59 01/16/24 21:53 Temperature 97.4 F L 101.1 F H Pulse Rate 98 114 H Respiratory Rate 16 22 H Blood Pressure 110/66 Pulse Oximetry 96 Oxygen Delivery Oxygen Flow Rate Fraction of Inspired Oxygen 01/16/24 22:18 01/16/24 22:18 01/16/24 20:00 Temperature Pulse Rate 114 H 112 H Respiratory Rate 22 H Blood Pressure Pulse Oximetry 96 96 Oxygen Delivery High Flow Therapy with Na High Flow Therapy with Na Oxygen Flow Rate 45 45 Fraction of Inspired Oxygen 80 80 01/17/24 00:00 01/17/24 01:30 01/16/24 20:00 Temperature 98.8 F Pulse Rate 101 H 103 H Respiratory Rate 20 Blood Pressure 108/65 Pulse Oximetry 92 93 Oxygen Delivery High Flow Therapy with Na Oxygen Flow Rate 45 Fraction of Inspired Oxygen 100 01/16/24 22:00 01/17/24 00:00 01/17/24 02:00 Temperature Pulse Rate 100 109 H 101 H Respiratory Rate Blood Pressure Pulse Oximetry Oxygen Delivery Oxygen Flow Rate Fraction of Inspired Oxygen 01/17/24 02:50 01/17/24 02:56 01/17/24 03:01 Temperature Pulse Rate 101 H 102 H 102 H Respiratory Rate 22 H 22 H Blood Pressure Pulse Oximetry 95 Oxygen Delivery High Flow Therapy with Na Oxygen Flow Rate 45 Fraction of Inspired Oxygen 80 01/17/24 04:00 01/17/24 04:00 01/17/24 04:00 Temperature 97.4 F L Pulse Rate 99 101 H Respiratory Rate 18 Blood Pressure 128/69 Pulse Oximetry 99 99 Oxygen Delivery High Flow Therapy with Na Oxygen Flow Rate 45 Fraction of Inspired Oxygen 80 01/16/24 22:59 01/17/24 06:00 01/17/24 07:42 Temperature 100.4 F H Pulse Rate 98 100 Respiratory Rate 20 Blood Pressure Pulse Oximetry Oxygen Delivery Oxygen Flow Rate Fraction of Inspired Oxygen 01/17/24 07:43 01/17/24 07:55 01/17/24 07:48 Temperature 97.7 F Pulse Rate 101 H 100 Respiratory Rate 20 20 Blood Pressure 134/77 Pulse Oximetry 100 100 Oxygen Delivery High Flow Therapy with Na Oxygen Flow Rate 40 Fraction of Inspired Oxygen 80 01/17/24 08:59 01/17/24 12:09 01/17/24 13:06 Temperature 97.7 F Pulse Rate 96 98 Respiratory Rate 20 20 Blood Pressure 126/74 Pulse Oximetry 95 98 Oxygen Delivery High Flow Therapy with Na Oxygen Flow Rate 40 Fraction of Inspired Oxygen 70 01/17/24 13:06 01/17/24 13:23 01/17/24 13:42 Temperature Pulse Rate 97 Respiratory Rate 20 Blood Pressure Pulse Oximetry 99 97 Oxygen Delivery High Flow Therapy with Na High Flow Therapy with Na Oxygen Flow Rate 40 35 Fraction of Inspired Oxygen 70 60 Exam Narrative: GEN: Alert, oriented, mild respiratory distress; communicative but hard to understand due to labored breathing and laryngeal changes post surgery. NECK: Trachea is midline, large area of scars from throat cancer, surgery and radiation. CHEST: Harsh rhonchi both bases, symmetric excursion. No wheezes. CV: Regular S1S2 no m/g/r ABD : (+) bowel sounds, G-tube. Results Labs 01/17/24 12:01 01/17/24 12:01 Labs: Short CBC 01/17/24 01/17/24 Range/Units 05:06 12:01 WBC 11.2 H 10.4 H (4.5-10.0) K/mm3 Hgb 12.2 L 11.7 L (14.0-18.0) g/dL Hct 40.0 L 37.8 L (42.0-52.0) % Plt Count 238 195 (150-375) k/mm3 BMP 01/17/24 01/17/24 05:06 12:01 Sodium 149 H 147 H Potassium 3.5 3.6 Chloride 106 108 H Carbon Dioxide 37 H 35 H BUN 25 H 24 H Creatinine 0.70 0.60 L Glucose 124 H 126 H Calcium 8.9 8.5 Liver Function 01/17/24 01/17/24 Range/Units 05:06 12:01 Total Bilirubin 0.9 0.7 (0.2-1.3) mg/dL AST 20 19 (17-59) U/L ALT 23 21 (6-50) U/L Alkaline Phosphatase 88 80 (38-126) U/L Albumin 3.3 L 2.9 L (3.5-5.1) g/dL
--- NOTE | 2024-01-17 17:28 | P.PNIM_ITS ---
Progress Note: A&P Assessment and Plan (1) Aspiration pneumonia: Qualifiers: Aspiration pneumonia type: unspecified Laterality: bilateral Lung location: lower lobe of lung Qualified Code(s): J69.0 - Pneumonitis due to inhalation of food and vomit Code(s): J69.0 - Pneumonitis due to inhalation of food and vomit Status: Acute (2) Acute hypoxic respiratory failure: Code(s): J96.01 - Acute respiratory failure with hypoxia Status: Acute (3) Mucus plugging of bronchi: Code(s): T17.500A - Unspecified foreign body in bronchus causing asphyxiation, initial encounter Status: Acute (4) Radiation-induced brachial plexopathy: Code(s): G54.0 - Brachial plexus disorders Status: Acute (5) Insomnia: Qualifiers: Insomnia type: due to medical condition Qualified Code(s): G47.01 - Insomnia due to medical condition Code(s): G47.00 - Insomnia, unspecified Status: Acute (6) Diarrhea: Qualifiers: Diarrhea type: unspecified type Qualified Code(s): R19.7 - Diarrhea, unspecified Code(s): R19.7 - Diarrhea, unspecified Status: Acute Plan Acute hypoxemic respiratory failure From pneumonia Patient on 70% HFNC oxygen this morning. No oxygen on its baseline. CT chest reviewed. Continue Zosyn doxycycline. Follow-up cultures. Pulmonology eval noted Aspiration pneumonia CT chest reviewed Content above care. Gastric emptying study to rule out gastric dysmotility GI following Diarrhea Continue monitoring stool cultures pending Patient on chronic tube feeding Hold tube feeds and start PPN Awaiting Gastric emptying study monitor History of throat cancer status post surgery and radiation With the resultant dysarthria, dysphonia dysphagia. Continue tube feeding as above. As I hypothyroidism Continue medications. Insomnia Continue home Ambien Valium. DVT prophylaxis subQ Lovenox. Care plan discussed with and patient at bedside. Subjective Date/time seen: 01/17/24 17:28 Interval history: Patient comfortable at bedside, NPO for now and stated on PPN GI eval noted and recommended Gastric emptying study Review of Systems Review of Systems: 12 systems were reviewed with pertinent positives and negatives per HPI. Except as documented in the HPI, all other systems were reviewed and are negative. Exam Narrative: Weight 67.7 kg BMI 20.2 Const: Other: Debilitated, appears older than stated age, no acute distress HENMT: Other: Marked skin changes and anatomical changes of the head and neck consistent with history of radical neck dissection and radiation therapy, dry mucous membranes, white plaquing to areas of oral mucosa, head is normocephalic atraumatic Eyes: Other: Pupils are equal and reactive, no scleral icterus Neck: Other: Extensive tissue changes consistent with per history of prior radical neck dissection and radiation therapy Resp: Other: Coarse rhonchi right lower lobe, decreased breath sounds left upper and lower lobe Cardio: Other: Regular rate, regular rhythm, 2+ bilateral radial pedal pulses GI: Other: Soft, nontender, nondistended, G-tube present : Other: Pure wick catheter in place Skin: Other: Generalized pallor, non jaundice, erythema excoriation of bilateral groin, flaking skin to areas of the buttock Neuro: Other: Alert orient x4, speech is hoarse and low volume, articulation is slow, no gross motor deficits noted, no obvious facial asymmetry Extrem: Other: No clubbing, cyanosis or edema of lower extremities, left hand seems somewhat edematous Psych: Other: Appropriate mood and affect, pleasant and cooperative, judgment and insight intact Objective Data Vital Signs Vital Signs: Vital Signs - 24 hr 01/16/24 19:21 01/16/24 21:59 01/16/24 21:53 Temperature 97.4 F L 101.1 F H Pulse Rate 98 114 H Respiratory Rate 16 22 H Blood Pressure 110/66 Pulse Oximetry 96 Oxygen Delivery Oxygen Flow Rate Fraction of Inspired Oxygen 01/16/24 22:18 01/16/24 22:18 01/16/24 20:00 Temperature Pulse Rate 114 H 112 H Respiratory Rate 22 H Blood Pressure Pulse Oximetry 96 96 Oxygen Delivery High Flow Therapy with Na High Flow Therapy with Na Oxygen Flow Rate 45 45 Fraction of Inspired Oxygen 80 80 01/17/24 00:00 01/17/24 01:30 01/16/24 20:00 Temperature 98.8 F Pulse Rate 101 H 103 H Respiratory Rate 20 Blood Pressure 108/65 Pulse Oximetry 92 93 Oxygen Delivery High Flow Therapy with Na Oxygen Flow Rate 45 Fraction of Inspired Oxygen 100 01/16/24 22:00 01/17/24 00:00 01/17/24 02:00 Temperature Pulse Rate 100 109 H 101 H Respiratory Rate Blood Pressure Pulse Oximetry Oxygen Delivery Oxygen Flow Rate Fraction of Inspired Oxygen 01/17/24 02:50 01/17/24 02:56 01/17/24 03:01 Temperature Pulse Rate 101 H 102 H 102 H Respiratory Rate 22 H 22 H Blood Pressure Pulse Oximetry 95 Oxygen Delivery High Flow Therapy with Na Oxygen Flow Rate 45 Fraction of Inspired Oxygen 80 01/17/24 04:00 01/17/24 04:00 01/17/24 04:00 Temperature 97.4 F L Pulse Rate 99 101 H Respiratory Rate 18 Blood Pressure 128/69 Pulse Oximetry 99 99 Oxygen Delivery High Flow Therapy with Na Oxygen Flow Rate 45 Fraction of Inspired Oxygen 80 01/16/24 22:59 01/17/24 06:00 01/17/24 07:42 Temperature 100.4 F H Pulse Rate 98 100 Respiratory Rate 20 Blood Pressure Pulse Oximetry Oxygen Delivery Oxygen Flow Rate Fraction of Inspired Oxygen 01/17/24 07:43 01/17/24 07:55 01/17/24 07:48 Temperature 97.7 F Pulse Rate 101 H 100 Respiratory Rate 20 20 Blood Pressure 134/77 Pulse Oximetry 100 100 Oxygen Delivery High Flow Therapy with Na Oxygen Flow Rate 40 Fraction of Inspired Oxygen 80 01/17/24 08:59 01/17/24 12:09 01/17/24 13:06 Temperature 97.7 F Pulse Rate 96 98 Respiratory Rate 20 20 Blood Pressure 126/74 Pulse Oximetry 95 98 Oxygen Delivery High Flow Therapy with Na Oxygen Flow Rate 40 Fraction of Inspired Oxygen 70 01/17/24 13:06 01/17/24 13:23 01/17/24 13:42 Temperature Pulse Rate 97 Respiratory Rate 20 Blood Pressure Pulse Oximetry 99 97 Oxygen Delivery High Flow Therapy with Na High Flow Therapy with Na Oxygen Flow Rate 40 35 Fraction of Inspired Oxygen 70 60 01/17/24 16:24 Temperature 97.7 F Pulse Rate 95 Respiratory Rate 24 H Blood Pressure 134/79 Pulse Oximetry 95 Oxygen Delivery Oxygen Flow Rate Fraction of Inspired Oxygen Intake/Output Intake/Output: Intake & Output 01/14/24 01/15/24 01/16/24 01/17/24 23:59 23:59 23:59 23:59 Intake Total 550 2829.2 2339.6 Output Total 1100 300 Balance 550 1729.2 2039.6 Meds/Results Medications: Active Medications Generic Name Dose Route Start Last Admin Trade Name Freq PRN Reason Stop Dose Admin Acetaminophen 650 mg 01/15/24 20:11 01/16/24 21:59 Acetaminophen 325 Mg Tablet PO 650 mg Q4H PRN Administration Mild Pain (1-3) or Fever Acetylcysteine 200 mg 01/16/24 02:00 01/17/24 13:03 Acetylcysteine 20% Inhal Soln 800 Mg/4 Ml Vial INHALATION 200 mg Q6HRT GELA Administration Albuterol/Ipratropium 3 ml 01/16/24 02:00 01/17/24 13:03 Ipratropium 0.5 Mg/Albuterol Sulfate 2.5 Mg Ampul.Neb 3 Ml INHALATION 3 ml Q6HRT GELA Administration Amlodipine Besylate 5 mg 01/16/24 09:00 01/17/24 12:46 Amlodipine Besylate 5 Mg Tablet FEED TUBE Not Given DAILY GELA Diazepam 20 mg 01/16/24 00:35 01/16/24 21:58 Diazepam (*Crx) 10 Mg Tablet PO 20 mg HS GELA Administration Enoxaparin Sodium 40 mg 01/17/24 09:00 01/17/24 15:10 Enoxaparin 40 Mg/0.4 Ml Syringe SUB-Q 40 mg DAILY GELA Administration Finasteride 5 mg 01/16/24 09:00 01/17/24 12:45 Finasteride 5 Mg Tablet FEED TUBE Not Given DAILY GELA Piperacillin Sod/Tazobactam Sod 4.5 gm in 100 mls @ 200 mls/hr 01/16/24 00:00 01/17/24 17:19 Zosyn 4.5 Gm/Ns 100 Ml IVPB 200 mls/hr Q6HR GELA Administration Sodium Chloride 1,000 mls @ 125 mls/hr 01/15/24 20:15 01/17/24 12:45 Normal Saline Iv IV CONT Not Given .Q8H GELA Doxycycline Hyclate 100 mg in 100 mls @ 100 mls/hr 01/16/24 17:00 01/17/24 17:19 Vibramycin 100 Mg/Ns 100 Ml IVPB 100 mls/hr Q12H GELA Administration Dextrose 1,000 mls @ 50 mls/hr 01/17/24 11:46 Dextrose 10% IV CONT .Q20H PRN if PN is interrupted Amino Acids/Electrolytes/Dextrose 2,000 mls @ 80 mls/hr 01/17/24 13:00 01/17/24 15:10 Clinimix E 4.25%/5% Solution IV CONT 80 mls/hr .Q24H GELA Administration Protocol Fat Emulsion Intravenous 250 mls @ 20.833 mls/hr 01/17/24 13:00 01/17/24 15:15 Lipids 20% IVPB 20.83 mls/hr Q24H GELA Administration Miconazole Nitrate 1 applic 01/16/24 09:00 01/17/24 15:10 Miconazole Nitrate 2% Cream 30 Gm Tube TOPICAL 1 applic Q12H GELA Administration Nystatin 5 ml 01/16/24 09:00 01/17/24 17:18 Nystatin 100,000 Units/Ml Susp 5 Ml Oral.Susp PO Not Given TID GELA Zolpidem Tartrate 5 mg 01/16/24 00:35 01/16/24 21:58 Zolpidem Tartrate (*Crx) 5 Mg Tablet FEED TUBE 5 mg HS GELA Administration Zolpidem Tartrate 5 mg 01/16/24 00:31 Zolpidem Tartrate (*Crx) 5 Mg Tablet FEED TUBE HS PRN Intractable insomnia Radiology Results: ITS Impressions Chest X-Ray 01/15/24 17:10 IMPRESSION: 1. Mild interstitial and airspace opacities in bilateral lower lung zones could represent mild pulmonary edema and/or pneumonia. 2. Calcified pleural plaque along the left hemidiaphragm. High Resolution CT 01/15/24 17:39 IMPRESSION: 1. Extensive tree-in-bud opacities in the dependent aspect of both lungs with more dense consolidation in the dependent aspect of the bilateral lower lobes consistent with pneumonia. This may be due to aspiration given the distribution of the presence of likely aspirated barium in the bilateral lower lobes. Chest CTA 01/15/24 19:40 IMPRESSION: 1. No pulmonary collision. 2. Extensive tree-in-bud opacities in the bilateral lower lungs with more dense consolidation in the dependent bilateral lower lobes consistent with pneumonia. Significant progression of mucus plugging throughout the lower lobar bronchi. 3. A few high attenuation material in the basilar lower lobes, left greater than right right which is suspicious for aspirated barium. Upper GI Series 01/17/24 15:50 IMPRESSION: 1. Percutaneous gastrostomy tube bulb in the distal body the stomach with normal small bowel follow-through. 2. Persistent opacities in the right mid to lower and left lower lung zones suspicious for pneumonia with some increased density at the lung bases suspicious for aspirated barium. Labs Labs: Laboratory Results - last 24 hr 01/17/24 01/17/24 01/17/24 05:06 12:01 12:25 WBC 11.2 H 10.4 H RBC 3.89 L 3.70 L Hgb 12.2 L 11.7 L Hct 40.0 L 37.8 L MCV 102.8 H 102.2 H MCH 31.4 31.6 MCHC 30.5 L 31.0 L RDW 13.3 13.5 Plt Count 238 195 MPV 13.2 H 12.9 H Immature Gran % (Auto) Not Reportable Not Reportable Neut % (Auto) Not Reportable Not Reportable Lymph % (Auto) Not Reportable Not Reportable Cochran % (Auto) Not Reportable Not Reportable Eos % (Auto) Not Reportable Not Reportable Baso % (Auto) Not Reportable Not Reportable Lymph # (Auto) Not Reportable Not Reportable Cochran # (Auto) Not Reportable Not Reportable Eos # (Auto) Not Reportable Not Reportable Baso # (Auto) Not Reportable Not Reportable Abs Immat Gran (auto) Not Reportable Not Reportable Absolute Neuts (auto) Not Reportable Not Reportable Absolute Nucleated RBC Not Reportable Not Reportable Total Counted 100 100 Neutrophils % (Manual) 74 H 74 H Band Neutrophils % 21 H 20 H Lymphocytes % (Manual) 3 L 4 L Monocytes % (Manual) 2 L 2 L Nucleated RBC % Not Reportable Not Reportable Abs Neuts (Manual) 10.64 H 9.77 H Abs Lymphs (Manual) 0.33 L 0.41 L Abs Monocytes (Manual) 0.22 0.20 Platelet Estimate Adequate Adequate Large Platelets Present % Immature Plt Fraction 9.5 Schistocytes None seen None seen APTT 42.1 H Sodium 149 H 147 H Potassium 3.5 3.6 Chloride 106 108 H Carbon Dioxide 37 H 35 H Anion Gap 6 4 BUN 25 H 24 H Creatinine 0.70 0.60 L Estim Creat Clear Calc 84 96 Estimated GFR > 60 > 60 Glucose 124 H 126 H POC Capillary Glucose 114 H Calcium 8.9 8.5 Magnesium 1.8 1.9 Transferrin 142 L Total Bilirubin 0.9 0.7 AST 20 19 ALT 23 21 Alkaline Phosphatase 88 80 Total Protein 7.0 6.0 L Albumin 3.3 L 2.9 L Quality VTE Prophylaxis VTE prophylaxis: pharmacologic ordered (Lovenox 40 mg subQ daily.)
[2024-01-17] MEDS: diazePAM (*CRX) 10 MG TABLET 20 MG PO (21:07)
[2024-01-17] MEDS: ZOLPIDEM TARTRATE (*CRX) 5 MG TABLET FEED TUBE (21:07)
[2024-01-17 22:49] LABS: Toxigenic C. Diff NEGATIVE (NEGATIVE)
[2024-01-17 23:47] LABS: Glucose Point of Care 127 mg/dl (65-105)
[2024-01-18] VITALS (44 sets, daily range): BP systolic 100–210; BP diastolic 68–98; PULSE 94–138; RESP 16–37; TEMP 36.8–38; O2SAT 79–99
[2024-01-18] MEDS: ACETYLCYSTEINE 20% INHAL SOLN 800 MG/4 ML VIAL 200 MG INHALATION ×3 (01:33→20:24)
[2024-01-18] MEDS: IPRATROPIUM 0.5 MG/ALBUTEROL SULFATE 2.5 MG AMPUL.NEB 3 ML INHALATION ×3 (01:33→20:24)
[2024-01-18] MEDS: DOXYCYCLINE 100 MG/NS 100 ML 100 MG/100 ML BAG IVPB ×2 (05:10→17:30)
[2024-01-18] MEDS: SODIUM CHLORIDE 0.9% IV 1,000 ML 125 ML IV CONT ×2 (05:20→14:06)
[2024-01-18 05:28] LABS: Anion Gap 0 mmol/L (4-12); Blood Urea Nitrogen 27 mg/dL (9-20); Calcium 8.4 mg/dL (8.4-10.2); Carbon Dioxide 36 mmol/L (22-30); Chloride 113 mmol/L (98-107); Estimated CRCL calculation 113 ml/min; Estimated Glomerular Filt Rate > 60; Glucose 133 mg/dL (65-110); Phosphorus 2.4 mg/dL (2.5-4.5); Sodium 149 mmol/L (137-145)
[2024-01-18] MEDS: PIPERACILLIN/TAZ 4.5G/NS 100ML 4.5 GM/100 ML BAG IVPB ×3 (06:45→18:30)
[2024-01-18 06:54] LABS: Triglycerides 81 mg/dL (<150)
[2024-01-18] MEDS: NYSTATIN 100,000 UNITS/ML SUSP 5 ML ORAL.SUSP PO ×3 (09:35→17:30)
[2024-01-18] MEDS: FINASTERIDE 5 MG TABLET FEED TUBE (09:35)
[2024-01-18] MEDS: ENOXAPARIN 40 MG/0.4 ML SYRINGE SUB-Q (09:35)
[2024-01-18] MEDS: amLODIPine BESYLATE 5 MG TABLET FEED TUBE (09:36)
[2024-01-18] MEDS: MICONAZOLE NITRATE 2% CREAM 30 GM TUBE 1 APPLIC TOPICAL ×2 (09:36→20:54)
--- NOTE | 2024-01-18 10:38 | PCPTNOTE ---
Patient asleep, nursing reports he is having a weak day today. Will attempt again this weekend as time allows.
--- NOTE | 2024-01-18 12:08 | P.PNIM_ITS ---
Progress Note: A&P Assessment and Plan (1) Aspiration pneumonia: Qualifiers: Aspiration pneumonia type: unspecified Laterality: bilateral Lung location: lower lobe of lung Qualified Code(s): J69.0 - Pneumonitis due to inhalation of food and vomit Code(s): J69.0 - Pneumonitis due to inhalation of food and vomit Status: Acute (2) Acute hypoxic respiratory failure: Code(s): J96.01 - Acute respiratory failure with hypoxia Status: Acute (3) Mucus plugging of bronchi: Code(s): T17.500A - Unspecified foreign body in bronchus causing asphyxiation, initial encounter Status: Acute (4) Radiation-induced brachial plexopathy: Code(s): G54.0 - Brachial plexus disorders Status: Acute (5) Insomnia: Qualifiers: Insomnia type: due to medical condition Qualified Code(s): G47.01 - Insomnia due to medical condition Code(s): G47.00 - Insomnia, unspecified Status: Acute (6) Diarrhea: Qualifiers: Diarrhea type: unspecified type Qualified Code(s): R19.7 - Diarrhea, unspecified Code(s): R19.7 - Diarrhea, unspecified Status: Acute Plan Acute hypoxemic respiratory failure From pneumonia Patient on vapotherm 35% oxygen this morning. No oxygen on its baseline. CT chest reviewed. Continue Zosyn doxycycline. Follow-up cultures. Pulmonology eval noted Aspiration pneumonia CT chest reviewed Content above care. Gastric emptying study to rule out gastric dysmotility GI following Diarrhea Continue monitoring stool cultures pending Patient on chronic tube feeding Hold tube feeds and start PPN Awaiting Gastric emptying study monitor History of throat cancer status post surgery and radiation With the resultant dysarthria, dysphonia dysphagia. Continue tube feeding as above. As I hypothyroidism Continue medications. Insomnia Continue home Ambien Valium. DVT prophylaxis subQ Lovenox. Care plan discussed with and patient at bedside. Subjective Date/time seen: 01/18/24 12:08 Interval history: Patient comfortable at bedside, NPO for now and stated on PPN For gastric emptying study today Review of Systems 2 Review of Systems: 12 systems were reviewed with pertinent positives and negatives per HPI. Except as documented in the HPI, all other systems were reviewed and are negative. Exam Narrative: Weight 67.7 kg BMI 20.2 Const: Other: Debilitated, appears older than stated age, no acute distress HENMT: Other: Marked skin changes and anatomical changes of the head and neck consistent with history of radical neck dissection and radiation therapy, dry mucous membranes, white plaquing to areas of oral mucosa, head is normocephalic atraumatic Eyes: Other: Pupils are equal and reactive, no scleral icterus Neck: Other: Extensive tissue changes consistent with per history of prior radical neck dissection and radiation therapy Resp: Other: Coarse rhonchi right lower lobe, decreased breath sounds left upper and lower lobe Cardio: Other: Regular rate, regular rhythm, 2+ bilateral radial pedal pulses GI: Other: Soft, nontender, nondistended, G-tube present : Other: Pure wick catheter in place Skin: Other: Generalized pallor, non jaundice, erythema excoriation of bilateral groin, flaking skin to areas of the buttock Neuro: Other: Alert orient x4, speech is hoarse and low volume, articulation is slow, no gross motor deficits noted, no obvious facial asymmetry Extrem: Other: No clubbing, cyanosis or edema of lower extremities, left hand seems somewhat e dematous Psych: Other: Appropriate mood and affect, pleasant and cooperative, judgment and insight intact Objective Data Vital Signs Vital Signs: Vital Signs - 24 hr 01/17/24 12:09 01/17/24 13:06 01/17/24 13:06 Temperature 97.7 F Pulse Rate 96 98 Respiratory Rate 20 20 Blood Pressure 126/74 Pulse Oximetry 98 99 Oxygen Delivery High Flow Therapy with Na Oxygen Flow Rate 40 Fraction of Inspired Oxygen 70 01/17/24 13:23 01/17/24 13:42 01/17/24 16:24 Temperature 97.7 F Pulse Rate 97 95 Respiratory Rate 20 24 H Blood Pressure 134/79 Pulse Oximetry 97 95 Oxygen Delivery High Flow Therapy with Na Oxygen Flow Rate 35 Fraction of Inspired Oxygen 60 01/17/24 14:00 01/17/24 16:00 01/17/24 18:00 Temperature Pulse Rate 99 97 97 Respiratory Rate Blood Pressure Pulse Oximetry Oxygen Delivery Oxygen Flow Rate Fraction of Inspired Oxygen 01/17/24 19:48 01/17/24 21:36 01/17/24 21:58 Temperature 98.2 F Pulse Rate 97 98 96 Respiratory Rate 22 H 20 20 Blood Pressure 133/88 Pulse Oximetry 97 96 Oxygen Delivery High Flow Therapy with Na Oxygen Flow Rate 35 Fraction of Inspired Oxygen 60 01/17/24 21:59 01/17/24 20:30 01/17/24 20:00 Temperature Pulse Rate 97 97 Respiratory Rate 20 Blood Pressure Pulse Oximetry 96 Oxygen Delivery High Flow Therapy with Na Oxygen Flow Rate 35 Fraction of Inspired Oxygen 60 01/17/24 22:00 01/17/24 23:26 01/17/24 23:45 Temperature 98.4 F Pulse Rate 97 101 H Respiratory Rate 23 H Blood Pressure 141/85 H Pulse Oximetry 98 96 Oxygen Delivery High Flow Therapy with Na Oxygen Flow Rate 35 Fraction of Inspired Oxygen 60 01/17/24 23:46 01/18/24 01:34 01/18/24 01:39 Temperature Pulse Rate 100 108 H 105 H Respiratory Rate 20 20 Blood Pressure Pulse Oximetry 95 Oxygen Delivery High Flow Therapy with Na Oxygen Flow Rate 35 Fraction of Inspired Oxygen 60 01/18/24 01:48 01/18/24 02:00 01/18/24 04:00 Temperature Pulse Rate 102 H 103 H Respiratory Rate 20 Blood Pressure Pulse Oximetry 96 Oxygen Delivery High Flow Therapy with Na Oxygen Flow Rate 35 Fraction of Inspired Oxygen 60 01/18/24 05:22 01/18/24 04:00 01/18/24 05:57 Temperature 98.5 F Pulse Rate 104 H 106 H 105 H Respiratory Rate 23 H Blood Pressure 155/87 H Pulse Oximetry 95 Oxygen Delivery Oxygen Flow Rate Fraction of Inspired Oxygen 01/18/24 08:12 01/18/24 08:14 01/18/24 08:12 Temperature 98.5 F Pulse Rate 104 H 104 H 103 H Respiratory Rate 20 20 24 H Blood Pressure 148/83 H Pulse Oximetry 93 93 Oxygen Delivery High Flow Therapy with Na Oxygen Flow Rate 35 Fraction of Inspired Oxygen 60 01/18/24 08:00 01/18/24 08:00 01/18/24 11:33 Temperature 98.6 F Pulse Rate 94 104 H 99 Respiratory Rate 16 22 H Blood Pressure 136/72 Pulse Oximetry 95 95 Oxygen Delivery High Flow Therapy with Na Oxygen Flow Rate 40 Fraction of Inspired Oxygen 60 Intake/Output Intake/Output: Intake & Output 01/15/24 01/16/24 01/17/24 01/18/24 23:59 23:59 23:59 23:59 Intake Total 550 2829.2 3639.6 1350 Output Total 1100 300 Balance 550 1729.2 3339.6 1350 Meds/Results Medications: Active Medications Generic Name Dose Route Start Last Admin Trade Name Freq PRN Reason Stop Dose Admin Acetaminophen 650 mg 01/15/24 20:11 01/16/24 21:59 Acetaminophen 325 Mg Tablet PO 650 mg Q4H PRN Administration Mild Pain (1-3) or Fever Acetylcysteine 200 mg 01/16/24 02:00 01/18/24 07:59 Acetylcysteine 20% Inhal Soln 800 Mg/4 Ml Vial INHALATION 200 mg Q6HRT GELA Administration Albuterol/Ipratropium 3 ml 01/16/24 02:00 01/18/24 07:59 Ipratropium 0.5 Mg/Albuterol Sulfate 2.5 Mg Ampul.Neb 3 Ml INHALATION 3 ml Q6HRT GELA Administration Amlodipine Besylate 5 mg 01/16/24 09:00 01/18/24 09:36 Amlodipine Besylate 5 Mg Tablet FEED TUBE 5 mg DAILY GELA Administration Diazepam 20 mg 01/16/24 00:35 01/17/24 21:07 Diazepam (*Crx) 10 Mg Tablet PO 20 mg HS EGLA Administration Enoxaparin Sodium 40 mg 01/17/24 09:00 01/18/24 09:35 Enoxaparin 40 Mg/0.4 Ml Syringe SUB-Q 40 mg DAILY GELA Administration Finasteride 5 mg 01/16/24 09:00 01/18/24 09:35 Finasteride 5 Mg Tablet FEED TUBE 5 mg DAILY GELA Administration Piperacillin Sod/Tazobactam Sod 4.5 gm in 100 mls @ 200 mls/hr 01/16/24 00:00 01/18/24 06:45 Zosyn 4.5 Gm/Ns 100 Ml IVPB 200 mls/hr Q6HR GELA Administration Sodium Chloride 1,000 mls @ 125 mls/hr 01/15/24 20:15 01/18/24 05:20 Normal Saline Iv IV CONT 125 mls/hr .Q8H GELA Administration Doxycycline Hyclate 100 mg in 100 mls @ 100 mls/hr 01/16/24 17:00 01/18/24 06:24 Vibramycin 100 Mg/Ns 100 Ml IVPB Infused Q12H GELA Infusion Dextrose 1,000 mls @ 50 mls/hr 01/17/24 11:46 Dextrose 10% IV CONT .Q20H PRN if PN is interrupted Amino Acids/Electrolytes/Dextrose 2,000 mls @ 80 mls/hr 01/17/24 13:00 01/17/24 15:10 Clinimix E 4.25%/5% Solution IV CONT 80 mls/hr .Q24H GELA Administration Protocol Fat Emulsion Intravenous 250 mls @ 20.833 mls/hr 01/17/24 13:00 01/18/24 03:45 Lipids 20% IVPB Infused Q24H GELA Infusion Miconazole Nitrate 1 applic 01/16/24 09:00 01/18/24 09:36 Miconazole Nitrate 2% Cream 30 Gm Tube TOPICAL 1 applic Q12H GELA Administration Nystatin 5 ml 01/16/24 09:00 01/18/24 09:35 Nystatin 100,000 Units/Ml Susp 5 Ml Oral.Susp PO 5 ml TID GELA Administration Zolpidem Tartrate 5 mg 01/16/24 00:35 01/17/24 21:07 Zolpidem Tartrate (*Crx) 5 Mg Tablet FEED TUBE 5 mg HS GELA Administration Zolpidem Tartrate 5 mg 01/16/24 00:31 Zolpidem Tartrate (*Crx) 5 Mg Tablet FEED TUBE HS PRN Intractable insomnia Radiology Results: ITS Impressions Chest X-Ray 01/15/24 17:10 IMPRESSION: 1. Mild interstitial and airspace opacities in bilateral lower lung zones could represent mild pulmonary edema and/or pneumonia. 2. Calcified pleural plaque along the left hemidiaphragm. High Resolution CT 01/15/24 17:39 IMPRESSION: 1. Extensive tree-in-bud opacities in the dependent aspect of both lungs with more dense consolidation in the dependent aspect of the bilateral lower lobes consistent with pneumonia. This may be due to aspiration given the distribution of the presence of likely aspirated barium in the bilateral lower lobes. Chest CTA 01/15/24 19:40 IMPRESSION: 1. No pulmonary collision. 2. Extensive tree-in-bud opacities in the bilateral lower lungs with more dense consolidation in the dependent bilateral lower lobes consistent with pneumonia. Significant progression of mucus plugging throughout the lower lobar bronchi. 3. A few high attenuation material in the basilar lower lobes, left greater than right right which is suspicious for aspirated barium. Upper GI Series 01/17/24 15:50 IMPRESSION: 1. Percutaneous gastrostomy tube bulb in the distal body the stomach with normal small bowel follow-through. 2. Persistent opacities in the right mid to lower and left lower lung zones suspicious for pneumonia with some increased density at the lung bases suspicious for aspirated barium. Labs Labs: Laboratory Results - last 24 hr 01/17/24 01/17/24 01/17/24 12:01 12:25 21:04 WBC 10.4 H RBC 3.70 L Hgb 11.7 L Hct 37.8 L MCV 102.2 H MCH 31.6 MCHC 31.0 L RDW 13.5 Plt Count 195 MPV 12.9 H Immature Gran % (Auto) Not Reportable Neut % (Auto) Not Reportable Lymph % (Auto) Not Reportable Dewitt % (Auto) Not Reportable Eos % (Auto) Not Reportable Baso % (Auto) Not Reportable Lymph # (Auto) Not Reportable Dewitt # (Auto) Not Reportable Eos # (Auto) Not Reportable Baso # (Auto) Not Reportable Abs Immat Gran (auto) Not Reportable Absolute Neuts (auto) Not Reportable Absolute Nucleated RBC Not Reportable Total Counted 100 Neutrophils % (Manual) 74 H Band Neutrophils % 20 H Lymphocytes % (Manual) 4 L Monocytes % (Manual) 2 L Nucleated RBC % Not Reportable Abs Neuts (Manual) 9.77 H Abs Lymphs (Manual) 0.41 L Abs Monocytes (Manual) 0.20 Platelet Estimate Adequate Large Platelets Present Schistocytes None seen APTT 42.1 H Sodium 147 H Potassium 3.6 Chloride 108 H Carbon Dioxide 35 H Anion Gap 4 BUN 24 H Creatinine 0.60 L Estim Creat Clear Calc 96 Estimated GFR > 60 Glucose 126 H POC Capillary Glucose 114 H Calcium 8.5 Phosphorus Magnesium 1.9 Transferrin 142 L Total Bilirubin 0.7 AST 19 ALT 21 Alkaline Phosphatase 80 Total Protein 6.0 L Albumin 2.9 L Triglycerides C. difficile (PCR) Negative 01/17/24 01/18/24 01/18/24 23:30 04:06 04:11 WBC RBC Hgb Hct MCV MCH MCHC RDW Plt Count MPV Immature Gran % (Auto) Neut % (Auto) Lymph % (Auto) Dewitt % (Auto) Eos % (Auto) Baso % (Auto) Lymph # (Auto) Dewitt # (Auto) Eos # (Auto) Baso # (Auto) Abs Immat Gran (auto) Absolute Neuts (auto) Absolute Nucleated RBC Total Counted Neutrophils % (Manual) Band Neutrophils % Lymphocytes % (Manual) Monocytes % (Manual) Nucleated RBC % Abs Neuts (Manual) Abs Lymphs (Manual) Abs Monocytes (Manual) Platelet Estimate Large Platelets Schistocytes APTT Sodium 149 H Potassium 3.0 L Chloride 113 H Carbon Dioxide 36 H Anion Gap 0 L BUN 27 H Creatinine 0.50 L Estim Creat Clear Calc 113 Estimated GFR > 60 Glucose 133 H POC Capillary Glucose 127 H Calcium 8.4 Phosphorus 2.4 L Magnesium Transferrin Total Bilirubin AST ALT Alkaline Phosphatase Total Protein Albumin Triglycerides 81 C. difficile (PCR) Quality VTE Prophylaxis VTE prophylaxis: pharmacologic ordered (Lovenox 40 mg subQ daily.)
--- NOTE | 2024-01-18 12:21 | PCOTNOTE ---
Attempted to see patient for OT evaluation this date. Patient stating he is very fatigued, having a hard time keeping his eyes open, requests that we try later. Will continue to attempt.
--- NOTE | 2024-01-18 12:58 | P.PNGI_ITS ---
Progress Note: A&P Assessment and Plan (1) Aspiration pneumonia: Qualifiers: Aspiration pneumonia type: unspecified Laterality: bilateral Lung location: lower lobe of lung Qualified Code(s): J69.0 - Pneumonitis due to inhalation of food and vomit Code(s): J69.0 - Pneumonitis due to inhalation of food and vomit Status: Acute (2) Debility: Code(s): R53.81 - Other malaise Status: Acute (3) Dysarthria: Code(s): R47.1 - Dysarthria and anarthria Status: Acute (4) Gastrostomy tube dependent: Code(s): Z93.1 - Gastrostomy status Status: Acute Plan we had detailed discussion with patient's is very reliable And good historian as per patient's patient did not have any problems with the PEG tube in the past and there is a chest with this pneumonia and aspiration which can happen secondary to lot of secretions from his throat. We will continue with the peripheral nutrition and will also start the PEG tube on 02/19 rate and see if he tolerates it. I will also recommend to check residuals with the PEG tube every 6 to 8 hours will start the patient on Reglan 5mg IV q.6 hours I advised the family that if in case he is unable to tolerate the tube at all and does not get better than the possibility of gastrojejunostomy can be considered which can be placed by Interventional Radiology. I did advise that patient is again at risk of pneumonias because of the throat secretions from the laryngeal cancer regardless off any type of feeding tube which will not be protective for his pneumonia according to the patient has been advised in the past not to eat anything through the mouth because of the high risk of aspiration and I will totally agree with that Subjective Date/time seen: 01/18/24 12:58 Interval history: patient seen as a follow-up patient has history of laryngeal cancer as history of feeding tube placed several years ago patient is admitted with aspiration pneumonia also there is a concern about the feeding. Patient's is at the bedside according to her patient never had any problem with feeding through the PEG tube past but this time when he aspirated and pneumonia started having nausea and vomiting usually the use 2.0 nutrition home and it has been changed to Jevity 1.5 not tolerated he has been peripheral nutrition Review of Systems Review of Systems: negative Exam Narrative: overall appears to be sick the bed is at the bedside Neck: Other: supple Resp: Other: air entry equal clear Cardio: Other: S1-S2 regular rhythm GI: Other: peg tube in place and no signs of cellulitis external skin ajnis is at 2cm abdomen otherwise is soft nontender Skin: Other: Neuro: Other: intact Objective Data Vital Signs Vital Signs: Vital Signs - 24 hr 01/17/24 13:06 01/17/24 13:06 01/17/24 13:23 Temperature Pulse Rate 98 97 Respiratory Rate 20 20 Blood Pressure Pulse Oximetry 99 Oxygen Delivery High Flow Therapy with Na Oxygen Flow Rate 40 Fraction of Inspired Oxygen 70 01/17/24 13:42 01/17/24 16:24 01/17/24 14:00 Temperature 97.7 F Pulse Rate 95 99 Respiratory Rate 24 H Blood Pressure 134/79 Pulse Oximetry 97 95 Oxygen Delivery High Flow Therapy with Na Oxygen Flow Rate 35 Fraction of Inspired Oxygen 60 01/17/24 16:00 01/17/24 18:00 01/17/24 19:48 Temperature 98.2 F Pulse Rate 97 97 97 Respiratory Rate 22 H Blood Pressure 133/88 Pulse Oximetry 97 Oxygen Delivery Oxygen Flow Rate Fraction of Inspired Oxygen 01/17/24 21:36 01/17/24 21:58 01/17/24 21:59 Temperature Pulse Rate 98 96 97 Respiratory Rate 20 20 20 Blood Pressure Pulse Oximetry 96 Oxygen Delivery High Flow Therapy with Na Oxygen Flow Rate 35 Fraction of Inspired Oxygen 60 01/17/24 20:30 01/17/24 20:00 01/17/24 22:00 Temperature Pulse Rate 97 97 Respiratory Rate Blood Pressure Pulse Oximetry 96 Oxygen Delivery High Flow Therapy with Na Oxygen Flow Rate 35 Fraction of Inspired Oxygen 60 01/17/24 23:26 01/17/24 23:45 01/17/24 23:46 Temperature 98.4 F Pulse Rate 101 H 100 Respiratory Rate 23 H Blood Pressure 141/85 H Pulse Oximetry 98 96 Oxygen Delivery High Flow Therapy with Na Oxygen Flow Rate 35 Fraction of Inspired Oxygen 60 01/18/24 01:34 01/18/24 01:39 01/18/24 01:48 Temperature Pulse Rate 108 H 105 H 102 H Respiratory Rate 20 20 20 Blood Pressure Pulse Oximetry 95 Oxygen Delivery High Flow Therapy with Na Oxygen Flow Rate 35 Fraction of Inspired Oxygen 60 01/18/24 02:00 01/18/24 04:00 01/18/24 05:22 Temperature 98.5 F Pulse Rate 103 H 104 H Respiratory Rate 23 H Blood Pressure 155/87 H Pulse Oximetry 96 95 Oxygen Delivery High Flow Therapy with Na Oxygen Flow Rate 35 Fraction of Inspired Oxygen 60 01/18/24 04:00 01/18/24 05:57 01/18/24 08:12 Temperature Pulse Rate 106 H 105 H 104 H Respiratory Rate 20 Blood Pressure Pulse Oximetry Oxygen Delivery Oxygen Flow Rate Fraction of Inspired Oxygen 01/18/24 08:14 01/18/24 08:12 01/18/24 08:00 Temperature 98.5 F Pulse Rate 104 H 103 H 94 Respiratory Rate 20 24 H 16 Blood Pressure 148/83 H Pulse Oximetry 93 93 95 Oxygen Delivery High Flow Therapy with Na High Flow Therapy with Na Oxygen Flow Rate 35 40 Fraction of Inspired Oxygen 60 60 01/18/24 08:00 01/18/24 11:33 Temperature 98.6 F Pulse Rate 104 H 99 Respiratory Rate 22 H Blood Pressure 136/72 Pulse Oximetry 95 Oxygen Delivery Oxygen Flow Rate Fraction of Inspired Oxygen Intake/Output Intake/Output: Intake & Output 01/15/24 01/16/24 01/17/24 01/18/24 23:59 23:59 23:59 23:59 Intake Total 550 2829.2 3639.6 1350 Output Total 1100 300 Balance 550 1729.2 3339.6 1350 Meds/Results Medications: Active Medications Generic Name Dose Route Start Last Admin Trade Name Freq PRN Reason Stop Dose Admin Acetaminophen 650 mg 01/15/24 20:11 01/16/24 21:59 Acetaminophen 325 Mg Tablet PO 650 mg Q4H PRN Administration Mild Pain (1-3) or Fever Acetylcysteine 200 mg 01/16/24 02:00 01/18/24 07:59 Acetylcysteine 20% Inhal Soln 800 Mg/4 Ml Vial INHALATION 200 mg Q6HRT GELA Administration Albuterol/Ipratropium 3 ml 01/16/24 02:00 01/18/24 07:59 Ipratropium 0.5 Mg/Albuterol Sulfate 2.5 Mg Ampul.Neb 3 Ml INHALATION 3 ml Q6HRT GELA Administration Amlodipine Besylate 5 mg 01/16/24 09:00 01/18/24 09:36 Amlodipine Besylate 5 Mg Tablet FEED TUBE 5 mg DAILY GELA Administration Diazepam 20 mg 01/16/24 00:35 01/17/24 21:07 Diazepam (*Crx) 10 Mg Tablet PO 20 mg HS GELA Administration Enoxaparin Sodium 40 mg 01/17/24 09:00 01/18/24 09:35 Enoxaparin 40 Mg/0.4 Ml Syringe SUB-Q 40 mg DAILY GELA Administration Finasteride 5 mg 01/16/24 09:00 01/18/24 09:35 Finasteride 5 Mg Tablet FEED TUBE 5 mg DAILY GELA Administration Piperacillin Sod/Tazobactam Sod 4.5 gm in 100 mls @ 200 mls/hr 01/16/24 00:00 01/18/24 06:45 Zosyn 4.5 Gm/Ns 100 Ml IVPB 200 mls/hr Q6HR GELA Administration Sodium Chloride 1,000 mls @ 125 mls/hr 01/15/24 20:15 01/18/24 05:20 Normal Saline Iv IV CONT 125 mls/hr .Q8H GELA Administration Doxycycline Hyclate 100 mg in 100 mls @ 100 mls/hr 01/16/24 17:00 01/18/24 06:24 Vibramycin 100 Mg/Ns 100 Ml IVPB Infused Q12H GELA Infusion Dextrose 1,000 mls @ 50 mls/hr 01/17/24 11:46 Dextrose 10% IV CONT .Q20H PRN if PN is interrupted Amino Acids/Electrolytes/Dextrose 2,000 mls @ 80 mls/hr 01/17/24 13:00 01/17/24 15:10 Clinimix E 4.25%/5% Solution IV CONT 80 mls/hr .Q24H GELA Administration Protocol Fat Emulsion Intravenous 250 mls @ 20.833 mls/hr 01/17/24 13:00 01/18/24 03:45 Lipids 20% IVPB Infused Q24H GELA Infusion Miconazole Nitrate 1 applic 01/16/24 09:00 01/18/24 09:36 Miconazole Nitrate 2% Cream 30 Gm Tube TOPICAL 1 applic Q12H GELA Administration Nystatin 5 ml 01/16/24 09:00 01/18/24 09:35 Nystatin 100,000 Units/Ml Susp 5 Ml Oral.Susp PO 5 ml TID GELA Administration Zolpidem Tartrate 5 mg 01/16/24 00:35 01/17/24 21:07 Zolpidem Tartrate (*Crx) 5 Mg Tablet FEED TUBE 5 mg HS GELA Administration Zolpidem Tartrate 5 mg 01/16/24 00:31 Zolpidem Tartrate (*Crx) 5 Mg Tablet FEED TUBE HS PRN Intractable insomnia Radiology Results: ITS Impressions Chest X-Ray 01/15/24 17:10 IMPRESSION: 1. Mild interstitial and airspace opacities in bilateral lower lung zones could represent mild pulmonary edema and/or pneumonia. 2. Calcified pleural plaque along the left hemidiaphragm. High Resolution CT 01/15/24 17:39 IMPRESSION: 1. Extensive tree-in-bud opacities in the dependent aspect of both lungs with more dense consolidation in the dependent aspect of the bilateral lower lobes consistent with pneumonia. This may be due to aspiration given the distribution of the presence of likely aspirated barium in the bilateral lower lobes. Chest CTA 01/15/24 19:40 IMPRESSION: 1. No pulmonary collision. 2. Extensive tree-in-bud opacities in the bilateral lower lungs with more dense consolidation in the dependent bilateral lower lobes consistent with pneumonia. Significant progression of mucus plugging throughout the lower lobar bronchi. 3. A few high attenuation material in the basilar lower lobes, left greater than right right which is suspicious for aspirated barium. Upper GI Series 01/17/24 15:50 IMPRESSION: 1. Percutaneous gastrostomy tube bulb in the distal body the stomach with normal small bowel follow-through. 2. Persistent opacities in the right mid to lower and left lower lung zones suspicious for pneumonia with some increased density at the lung bases suspicio us for aspirated barium. Labs Labs: Laboratory Results - last 24 hr 01/17/24 01/17/24 01/18/24 21:04 23:30 04:06 Sodium Potassium Chloride Carbon Dioxide Anion Gap BUN Creatinine Estim Creat Clear Calc Estimated GFR Glucose POC Capillary Glucose 127 H Calcium Phosphorus Triglycerides 81 C. difficile (PCR) Negative 01/18/24 04:11 Sodium 149 H Potassium 3.0 L Chloride 113 H Carbon Dioxide 36 H Anion Gap 0 L BUN 27 H Creatinine 0.50 L Estim Creat Clear Calc 113 Estimated GFR > 60 Glucose 133 H POC Capillary Glucose Calcium 8.4 Phosphorus 2.4 L Triglycerides C. difficile (PCR)
[2024-01-18] MEDS: AMINO ACIDS 4.25%/D5W/LYTES/CA 2,000 ML 80 ML IV CONT (13:00)
[2024-01-18 13:18] LABS: Glucose Point of Care 130 mg/dl (65-105)
[2024-01-18] MEDS: FAT EMULSIONS IV 20% 250 ML 21 ML IVPB (14:06)
[2024-01-18] MEDS: METOCLOPRAMIDE HCL INJ 10 MG/2 ML VIAL 5 MG IV PUSH (18:00)
--- NOTE | 2024-01-18 21:34 | PM.EVENT ---
Event Note Event Note Event Note: 01/18/2024 at 21:25 Nursing staff called when patient acutely decompensated with increased tachypnea and moderately decreased oxygen saturations. As I was RD headed towards the patient's room nursing staff then called rapid response when the patient's oxygen saturations had dropped to 65%. Patient had been on Vapotherm since shortly after admission with variable oxygen requirements. Nursing staff reported that shortly after they had cleaned the patient up in reposition him he acutely decompensated with persistent hypoxia despite increasing oxygen. Respiratory therapy was called and attempted deep suctioning. Despite these efforts patient remained hypoxic. Respiratory therapy place patient on [id number] and with assisted ventilation the patient was maintaining oxygen saturations of 88%. Patient was emergently intubated please see procedure no for details. Patient was transferred to the ICU. Post intubation x-ray demonstrated ET tube it was high ET tube was advanced 3 cm. X-ray also demonstrate significantly worsening pneumonia compared to imaging from day of admission on the . Stat labs [place] [id number] up to 21,000 hemoglobin was stable. Sodium was still elevated at 150. Serum bicarb was 33 which was stable. Patient is already on antibiotic therapy with Zosyn and doxycycline. It is likely patient has recurrent Coby aspirating gastric contents although G-tube feeds have been held the patient is likely still having significant reflux of gastric acid. Will place patient on Protonix IV b.i.d.. Serial labs and chest x-rays as well as ABGs have been ordered. Post intubation ABG has been ordered and is pending. [employer] was consulted he. Patient has been placed on sedation with fentanyl and Versed. Blood pressures have remained stable. Patient is afebrile. Will send sputum for culture and Gram stain. GENERAL: Acutely ill-appearing on chronic illness cachectic HEENT: Mucous membranes are dry, thick stringy sputum in the posterior oropharynx at time of suctioning no obvious laryngeal edema during intubation CARDIOVASCULAR: Sinus tachycardia, 2+ bilateral radial pulses RESPIRATORY: Coarse breath sounds bilaterally after intubation the equal breath sounds ABDOMEN: Concave abdomen with G-tube present, positive bowel sounds INTEGUMENT: Generalized pallor, non jaundice NEUROLOGIC: Patient is now intubated and sedated with 7.5 ET tube measuring at 26 cm on repeat imaging still ET tube with high so ET tube was Cuvea is a 28 cm PSYCHIATRIC: Unable to assess : Circumcised male, Vanessa catheter placed after resuscitation efforts X-ray findings her worsening likely due to recurrent aspiration. There is likely a large component of chemical pneumonitis representing x-ray findings. But given the increased leukocytosis patient likely does have some component of pneumonia. Sepsis--patient had temperature of 100.1? with Vanessa catheter temp probe. Will change antibiotic therapy to cefepime, Flagyl and vancomycin. Will discontinue Zosyn and doxy Recurrent acute hypoxic respiratory failure--intubated with management as discussed above. Continue antibiotic therapy with Zosyn and doxycycline. Will utilize low tidal volume strategy to minimize barotrauma. Tidal volume 450 peep of 8 FiO2 100% rate of 18 Recurrent aspiration--patient is NPO. Patient has G-tube in place and OG in place OG is at lower mid suction G-tube is clamped Hypokalemia--the patient's repeat potassium was 3.8. IV potassium rider was discontinued. Patient does have persistent hypernatremia. Will stop normal saline that was infusing will continue PPN but will add 50 mL of D5 water in addition to add free water. Will place order for PICC line in a.m. for she need for increased venous access. Serial ABGs, CBC, CMP and daily chest x-rays have been ordered. Extensive amount of time was spent at bedside with the patient's and on the phone with patient's daughter discussing the patient's critical condition. 120 minute spent in critical care activities. Due to a high probability of clinically significant, life threatening deterioration, the patient required my highest level of preparedness to intervene emergently and I personally spent this critical care time directly and personally managing the patient. This critical care time included obtaining a history; examining the patient; pulse oximetry; ordering and review of studies; arranging urgent treatment with development of a management plan; evaluation of patient's response to treatment; frequent reassessment; and discussions with other providers. It was exclusive of separately billable procedures and treating other patients and teaching time. Please see Assessment and Plan section and the rest of the note for further information on patient assessment and treatment.
[2024-01-18] MEDS: ETOMIDATE 20 MG/10 ML AMPUL IV PUSH (21:44)
[2024-01-18] MEDS: RAPID SEQUENCE INTUBATION KIT 1 EACH (21:44)
[2024-01-18] MEDS: SUCCINYLCHOLINE CHLORIDE 20 MG/ML 10 ML VIAL 100 MG IV PUSH (21:45)
[2024-01-18] MEDS: FENTANYL 2,500MCG/NS250ML(*CRX 2,500 MCG/250 ML BAG IV CONT (21:55)
[2024-01-18] MEDS: MIDAZOLAM 100MG/NS 100ML(*CRX) 100 MG/100 ML BAG IV CONT (21:55)
--- NOTE | 2024-01-18 22:12 | WPDPROCEDUR ---
Procedures Intubation Intubation Date: 01/18/24 Intubation Time: 21:50 A pre-procedural Time-Out was completed immediately before starting the procedure and confirmed: Patient Identification, Site, Procedure, Patient Position and the Availability of Requisite Equipment: Yes Sedative: etomidate Mg given: 20 Paralytic: succinylcholine Mg given: 20 Laryngoscope: fiber optic video scope ET tube size: 7 Tube secured depth (cm): 23 Tube secured location: lips Tube placement confirmation: visualized tube passing through cords, equal breath sounds bilaterally, no breath sounds over epigastrium and confirmation by capnometry Patient tolerated procedure: well Additional comments: Chest x-ray reviewed. ET tube up between the clavicles. I requested respiratory advanced ET tube 3 cm
--- NOTE | 2024-01-18 22:20 | PC.NURSE ---
This patient transferred to ICU 6 at 2250. Intubated in IMU. Belongings brought with patient.
[2024-01-18 22:26] LABS: Hematocrit 39.9 % (42.0-52.0); Hemoglobin 12.1 g/dL (14.0-18.0); Mean Corpuscular HGB Conc 30.3 g/dl (32-36); Mean Corpuscular Hemoglobin 31.8 pg (26-34); Mean Platelet Volume 12.7 fl (7.4-10.4); Platelet Count Result 297 k/mm3 (150-375); Red Cell Distribution Width 13.5 % (11.5-14.5); White Blood Count 21.1 K/mm3 (4.5-10.0)
[2024-01-18 22:31] LABS: Alanine Aminotransferase 16 U/L (6-50); Alkaline Phosphatase 102 U/L (38-126); Anion Gap 4 mmol/L (4-12); Aspartate Amino Transferase 19 U/L (17-59); Bilirubin,Total 0.4 mg/dL (0.2-1.3); Blood Urea Nitrogen 27 mg/dL (9-20); Calcium 8.4 mg/dL (8.4-10.2); Carbon Dioxide 33 mmol/L (22-30); Chloride 113 mmol/L (98-107); Estimated CRCL calculation 96 ml/min; Estimated Glomerular Filt Rate > 60; Glucose 155 mg/dL (65-110); Magnesium 1.9 mg/dL (1.6-2.3); Phosphorus 3.3 mg/dL (2.5-4.5); Potassium 3.8 mmol/L (3.4-5.0); Sodium 150 mmol/L (137-145)
[2024-01-18 22:32] LABS: Lactic Acid Reflex 1.2 mmol/L (0.7-2.0)
[2024-01-18 22:43] LABS: INR 1.1; Partial Thromboplastin Time 36.9 Seconds (22.3-36.8); Prothrombin Time 14.7 Seconds (11.1-14.7)
[2024-01-18 22:58] LABS: Procalcitonin 0.4 ng/mL
[2024-01-18 23:15] LABS: Alveolar/Arterial O2 Gradient 419.8 mmHg; Base Excess ABG -1.9 mEq/l (+/-2.0); Carboxyhemoglobin 0.2 % THb (0-2.0); Fractional Inspired Oxygen 100 %; HCO3 ABG 28.5 mEq/l (22.0-26.0); Methemoglobin ABG 0.5 %THb (0-1.5); Oxygen Content ABG 18.1 %vol (16.0-22.0); Oxygen Saturation ABG 99.1 % (95.0-100.0); Oxyhemoglobin 98.7 % THb (90.0-100.0); PO2 ABG 212.4 mmHg (80.0-100.0); PO2 FiO2 Ratio Arterial Blood 2.12 %; Reduced Hemoglobin 0.6 %THb (0-5.0); Total Hemoglobin 12.7 g/dL (12.0-18.0)
[2024-01-18 23:21] LABS: pH ABG 7.166 (7.350-7.450)
[2024-01-18 23:22] LABS: Device VENTILATOR; Modified Allen's Test Pass; PCO2 ABG 80.8 mmHg (35.0-45.0); Site Drawn RIGHT RADIAL
[2024-01-18 23:24] LABS: Arterial Blood Gas PEEP 8 cmH2O; Arterial Blood Gas Tidal Volume 450 ml; Arterial Blood Gas Vent Mode CMV; Arterial Blood Gas Ventilator rate 18 /MIN
[2024-01-18] MEDS: DEXTROSE 5% 1,000 ML 1,000 ML 50 ML IV CONT (23:46)
[2024-01-19] VITALS (104 sets, daily range): BP systolic 91–162; BP diastolic 51–91; PULSE 67–122; RESP 19–31; TEMP 37.2–38.4; O2SAT 91–100
--- NOTE | 2024-01-19 00:23 | PC.NURSE ---
This patient, Mal Akhtar, was transferred to icu 6 on 01/18/24 at 2152 for respiratory decline requiring intubation. Personal belongings sent with patient. Appropriate documentation sent with patient.
[2024-01-19] MEDS: METOCLOPRAMIDE HCL INJ 10 MG/2 ML VIAL 5 MG IV PUSH ×4 (00:51→17:22)
[2024-01-19] MEDS: metroNIDAZOLE 500 MG/ISO 100ML 500 MG/100 ML BAG 100 MG IVPB ×4 (00:51→17:22)
[2024-01-19] MEDS: VANCOMYCIN 1,750 MG/NS 500 ML 1,750 MG/500 ML BAG 250 MG IVPB (00:51)
[2024-01-19 01:09] LABS: Glucose Point of Care 227 mg/dl (65-105)
[2024-01-19] MEDS: IPRATROPIUM 0.5 MG/ALBUTEROL SULFATE 2.5 MG AMPUL.NEB 3 ML INHALATION ×4 (02:23→21:00)
[2024-01-19] MEDS: ACETYLCYSTEINE 20% INHAL SOLN 800 MG/4 ML VIAL 200 MG INHALATION ×4 (02:23→21:00)
[2024-01-19] MEDS: CEFEPIME 2 GM/NS 50 ML 2 GM/50 ML BAG IVPB ×4 (02:55→21:04)
[2024-01-19 03:58] LABS: Basophils Percent Auto 0.2 % (0.2-1.2); Hematocrit 31.2 % (42.0-52.0); Hemoglobin 9.5 g/dL (14.0-18.0); Immature Granulocyte Absolute 0.05 K/mm3 (0.00-0.031); Immature Granulocyte Percent A 0.4 % (0-0.5); Lymphocytes Absolute Auto 0.29 K/mm3 (0.9-3.2); Lymphocytes Percent Auto 2.3 % (18.3-44.2); Mean Corpuscular HGB Conc 30.4 g/dl (32-36); Mean Corpuscular Hemoglobin 32.4 pg (26-34); Mean Corpuscular Volume 106.5 fl (80-100); Mean Platelet Volume 12.9 fl (7.4-10.4); Monocytes Absolute Auto 0.5 K/mm3 (0.1-0.6); Monocytes Percent Auto 3.5 % (2.6-8.5); Neutrophils Percent Auto 93.6 % (45.5-73.1); Platelet Count Result 224 k/mm3 (150-375); Red Blood Count 2.93 M/mm3 (4.6-6.20); Red Cell Distribution Width 13.6 % (11.5-14.5); White Blood Count 12.8 K/mm3 (4.5-10.0)
[2024-01-19 04:11] LABS: Alanine Aminotransferase 15 U/L (6-50); Albumin Level 2.9 g/dL (3.5-5.1); Alkaline Phosphatase 77 U/L (38-126); Anion Gap 3 mmol/L (4-12); Aspartate Amino Transferase 16 U/L (17-59); Bilirubin,Total 0.4 mg/dL (0.2-1.3); Blood Urea Nitrogen 32 mg/dL (9-20); Calcium 8.3 mg/dL (8.4-10.2); Carbon Dioxide 33 mmol/L (22-30); Chloride 113 mmol/L (98-107); Estimated CRCL calculation 74 ml/min; Estimated Glomerular Filt Rate > 60; Glucose 147 mg/dL (65-110); Magnesium 2.1 mg/dL (1.6-2.3); Phosphorus 3.5 mg/dL (2.5-4.5); Potassium 3.2 mmol/L (3.4-5.0); Sodium 149 mmol/L (137-145)
[2024-01-19] MEDS: ACETAMINOPHEN 325 MG TABLET 650 MG PO ×2 (04:46→16:08)
[2024-01-19 05:11] LABS: Alveolar/Arterial O2 Gradient 304.4 mmHg; Base Excess ABG 1.1 mEq/l (+/-2.0); Carboxyhemoglobin 0.1 % THb (0-2.0); Fractional Inspired Oxygen 60 %; Methemoglobin ABG 0.3 %THb (0-1.5); Oxygen Content ABG 14.1 %vol (16.0-22.0); Oxygen Saturation ABG 89.7 % (95.0-100.0); PCO2 ABG 55.5 mmHg (35.0-45.0); PO2 ABG 62.4 mmHg (80.0-100.0); PO2 FiO2 Ratio Arterial Blood 1.04 %; Reduced Hemoglobin 7.6 %THb (0-5.0); Total Hemoglobin 10.9 g/dL (12.0-18.0)
[2024-01-19 05:12] LABS: Arterial Blood Gas PEEP 5 cmH2O; Arterial Blood Gas Tidal Volume 450 ml; Arterial Blood Gas Vent Mode CMV; Arterial Blood Gas Ventilator rate 24 /MIN; Device VENTILATOR; Modified Allen's Test Pass; Site Drawn RIGHT RADIAL
[2024-01-19 06:28] LABS: MRSA (PCR) NOT DETECTED (NOT DETECTE)
[2024-01-19] MEDS: NYSTATIN 100,000 UNITS/ML SUSP 5 ML ORAL.SUSP PO ×3 (08:31→16:08)
[2024-01-19] MEDS: ENOXAPARIN 40 MG/0.4 ML SYRINGE SUB-Q (08:31)
[2024-01-19] MEDS: amLODIPine BESYLATE 5 MG TABLET FEED TUBE (08:31)
[2024-01-19] MEDS: FINASTERIDE 5 MG TABLET FEED TUBE (08:31)
[2024-01-19] MEDS: MICONAZOLE NITRATE 2% CREAM 30 GM TUBE 1 APPLIC TOPICAL ×2 (08:32→21:04)
[2024-01-19] MEDS: PANTOPRAZOLE SODIUM IV 40 MG VIAL IV PUSH ×2 (08:32→21:04)
[2024-01-19] MEDS: MINERAL OIL/WHITE PETROLATUM OINTMENT 1 APPLIC EACH EYE ×2 (08:45→21:04)
--- NOTE | 2024-01-19 09:17 | PCOTNOTE ---
Patient transferred to the ICU last night. He is now intubated and sedated. Removing OT orders at this time.
--- NOTE | 2024-01-19 10:12 | PCPTNOTE ---
Patient transferred to ICU and intubated, PT order cancelled at this time, nurtsing aware to reorder when patient is medicall ystable to participate in physical therapy.
--- NOTE | 2024-01-19 11:11 | WPDCNINT ---
Assessment and Plan Assessment and plan (1) Acute hypoxic respiratory failure: Code(s): J96.01 - Acute respiratory failure with hypoxia Status: Acute Assessment and Plan: 01/17: Patient intubated after being transferred from intermediate Unit after failing BiPAP and high-flow therapy -chest x-ray shows worsening bilateral pneumonia -ABGs reviewed, ventilator adjusted, increased PEEP to 10 -continue bronchodilators -continue - acetylcysteine nebs -pulmonology following -sedated with fentanyl and Versed infusion, maintain RASS of 0 to -2, daily SBT and SAT (2) Aspiration pneumonia: Code(s): J69.0 - Pneumonitis due to inhalation of food and vomit Status: Acute Assessment and Plan: Acute respiratory failure likely related to aspiration pneumonia, patient has been having aspiration pneumonia/pneumonitis since his throat cancer surgery. The patient has a PEG tube, has not been tolerating tube feeds -patient may require a jejunostomy or G-J tube which likely will be done by Interventional Radiology, this may help and a possible decrease the chances of aspiration. I discussed it with GI who is of the same view. (3) Hypertension: Code(s): I10 - Essential (primary) hypertension Status: Acute Assessment and Plan: Continue amlodipine (4) Electrolyte abnormality: Code(s): E87.8 - Other disorders of electrolyte and fluid balance, not elsewhere classified Status: Acute Assessment and Plan: Replace potassium Plan DVT prophylaxis: Lovenox Stress ulcer prophylaxis: Protonix Nutrition: TPN and trickle tube feeds at 10 mL/hour Code Status: Full code Critical Care Time Spent: 54 minutes Discuss with GI - Dr. Stephens Discussed with patient's at bedside updated with patient's condition and plan of care. She is aware of the issues of aspiration pneumonia/pneumonitis and intolerance to tube feeds. She also stated that he has a lot of sputum/mucus production since his throat surgery. I answered all questions Due to a high probability of clinically significant, life threatening deterioration, the patient required my highest level of preparedness to intervene emergently and I personally spent this critical care time directly and personally managing the patient. This critical care time included obtaining a history; examining the patient; pulse oximetry; ordering and review of studies; arranging urgent treatment with development of a management plan; evaluation of patient's response to treatment; frequent reassessment; and discussions with other providers. It was exclusive of separately billable procedures and treating other patients and teaching time. Please see Assessment and Plan section and the rest of the note for further information on patient assessment and treatment This dictation may have been done utilizing a voice recognition system. Attempts have been made to correct errors. However, there may be uncorrected grammatical, spelling, and recognitions errors present. 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 Off note patient was in the hospital from 12/29/2023 through 01/13/2024 for similar issues with respiratory failure from aspiration pneumonia accompanied by severe sepsis and septic shock requiring multiple vasopressors. Patient was in rehab for 2 days and return to the ER on 01/14 for hypoxia and shortness of breath. Found to have pneumonia, was admitted to intermediate Unit where he was on BiPAP and high-flow therapy. Pulmonology was following the patient, patient was on vibratory vest therapy, was using the cornet valve for sputum and cough production On 01/17 night, patient was a rapid response for tachypnea, desaturation, increased oxygen requirements on high-flow therapy, patient had increased secretions, was suctioned despite which he remained hypoxic and decision was made to intubate him and place him on a mechanical ventilator. Was transferred to the ICU for further management. Patient seen and examined the ICU this morning, remains intubated on CMV mode of ventilation 60% FiO2 and PEEP of 5 with adequate O2 sats and ABGs. Patient sedated with fentanyl and Versed, opens his eyes, follows simple commands with upper extremities but not with lower extremities. Patient had adequate urine output, is febrile with a T-max of 101.2? and hemodynamically stable Review of Systems Review of Systems: ROS unobtainable: Yes unobtainable due to endotracheal tube, unobtainable due to medical condition and unobtainable due to mental status PMFSH Past Medical History Medical History (Updated 01/16/24 @ 22:54 by Krysten Fox DO) Cervical spine disease Constipation Dysarthria Dysphagia Dysphonia Gastrostomy tube dependent GERD (gastroesophageal reflux disease) History of aspiration pneumonia History of throat cancer XRT and surgery Hypothyroid Insomnia Malfunction of gastrostomy tube Primary squamous cell carcinoma of head and neck (~2013) Radiation-induced brachial plexopathy Spina bifida as a child with surgery; residual 'bladder issues' Surgical History Surgical History History of ear, nose, and throat (ENT) surgery PEG (percutaneous endoscopic gastrostomy) status Family History Family History Mother Colon cancer Social History Social History (Updated 01/16/24 @ 01:05 by Krysten Fox DO) Social History: Lives at home with . Never smoked. No alcohol and drug use. Code status: Full code. Surrogate decision maker: Smoking status: Never smoker Second hand tobacco smoke exposure: No Alcohol intake: never Substance use: never Substance use type: does not use Do You Feel Safe in your Home?: Yes Lack of Transportation: No Lack of Food: Never True Current Housing: I Have Housing Concerned About Future Housing: No Difficulty Paying Gas/Electric Bills: No Difficulty Paying for Meds: No Currently Unemployed: No Education: Bachelor's Degree Difficulty w/ Childcare or Family Care: No Living arrangements: with family Gender identity (if verbalized by the patient): Male Sexual Orientation (if Verbalized by the Patient): Straight or Heterosexual Spiritual care concerns: No Agree to blood products: Yes Meds Home Medications and Allergies Home Medications Medication Instructions Recorded Confirmed Type zolpidem 10 mg tablet 5 mg feeding tube HS PRN Sleep 09/07/21 01/15/24 History finasteride 5 mg tablet (Proscar) 5 mg feeding tube DAILY 03/05/22 01/15/24 History diazepam 10 mg tablet (Valium) 20 mg PO HS 05/19/22 01/15/24 History ondansetron HCl 4 mg tablet 4 mg feeding tube Q4H PRN nausea 05/19/22 01/15/24 History and [id number] amlodipine 5 mg tablet (Norvasc) 5 mg feeding tube DAILY #30 tabs 01/13/24 01/15/24 Rx acetaminophen 325 mg tablet 325 mg PO Q4H PRN Pain (Scale 01/15/24 01/16/24 History Score 1-3) miconazole nitrate 2 % topical 1 applic topical Q12H 01/15/24 01/15/24 History cream nystatin 100,000 unit/mL oral 5 ml PO TID 01/15/24 01/15/24 History suspension polyethylene glycol 3350 17 gram 17 g feeding tube BID PRN 01/15/24 01/15/24 History oral powder packet (Miralax) Constipation zolpidem 5 mg tablet 5 mg feeding tube HS 01/15/24 01/15/24 History Allergies Allergy/AdvReac Type Severity Reaction Status Date / Time No Known Allergies Allergy Verified 01/15/24 18:49 Vital Signs Vital Signs - 24 hr 01/18/24 11:33 01/18/24 12:00 01/18/24 12:00 Temperature 98.6 F Pulse Rate 99 99 99 Respiratory Rate 22 H 22 H Blood Pressure 136/72 Pulse Oximetry 95 95 Oxygen Delivery High Flow Therapy with Na Oxygen Flow Rate 40 Fraction of Inspired Oxygen 60 01/18/24 13:34 01/18/24 16:00 01/18/24 16:00 Temperature Pulse Rate 99 99 99 Respiratory Rate 22 H Blood Pressure Pulse Oximetry 95 Oxygen Delivery High Flow Therapy with Na Oxygen Flow Rate 40 Fraction of Inspired Oxygen 60 01/18/24 17:23 01/18/24 17:41 01/18/24 17:50 Temperature 98.6 F Pulse Rate 99 99 94 Respiratory Rate 20 22 H Blood Pressure 130/68 Pulse Oximetry 95 96 Oxygen Delivery High Flow Therapy with Na Oxygen Flow Rate 30 Fraction of Inspired Oxygen 60 01/18/24 20:13 01/18/24 20:31 01/18/24 20:32 Temperature 98.3 F Pulse Rate 103 H 100 100 Respiratory Rate 22 H 18 18 Blood Pressure 157/89 H Pulse Oximetry 97 97 Oxygen Delivery High Flow Therapy with Na Oxygen Flow Rate 30 Fraction of Inspired Oxygen 60 01/18/24 22:08 01/18/24 21:55 01/18/24 21:55 Temperature Pulse Rate 128 H 127 H 127 H Respiratory Rate 37 H 37 H Blood Pressure Pulse Oximetry 97 Oxygen Delivery Mechanical Ventilation Oxygen Flow Rate Fraction of Inspired Oxygen 100 01/18/24 22:15 01/18/24 22:15 01/18/24 22:30 Temperature Pulse Rate 129 H 129 H 125 H Respiratory Rate 32 H 32 H 31 H Blood Pressure Pulse Oximetry Oxygen Delivery Oxygen Flow Rate Fraction of Inspired Oxygen 01/18/24 22:30 01/18/24 22:45 01/18/24 23:10 Temperature Pulse Rate 125 H 123 H 121 H Respiratory Rate 31 H 27 H 26 H Blood Pressure Pulse Oximetry Oxygen Delivery Oxygen Flow Rate Fraction of Inspired Oxygen 01/18/24 23:00 01/18/24 22:50 01/18/24 21:05 Temperature 99.5 F Pulse Rate 121 H 138 H Respiratory Rate 26 H 30 H Blood Pressure 210/98 H Pulse Oximetry 79 L 89 L Oxygen Delivery High Flow Therapy with Na High Flow Therapy with Na Oxygen Flow Rate 30 30 Fraction of Inspired Oxygen 60 01/18/24 23:02 01/18/24 23:25 01/18/24 20:00 Temperature Pulse Rate 122 H 118 H 100 Respiratory Rate Blood Pressure Pulse Oximetry 97 95 Oxygen Delivery Mechanical Ventilation Mechanical Ventilation Oxygen Flow Rate Fraction of Inspired Oxygen 100 80 01/18/24 22:00 01/19/24 00:00 01/19/24 00:00 Temperature Pulse Rate 137 H 113 H 113 H Respiratory Rate 28 H Blood Pressure Pulse Oximetry 92 Oxygen Delivery Mechanical Ventilation Oxygen Flow Rate Fraction of Inspired Oxygen 80 01/19/24 00:00 01/19/24 02:00 01/19/24 02:00 Temperature 99.9 F H 100.4 F H Pulse Rate 113 H 101 H 101 H Respiratory Rate 28 H 28 H Blood Pressure 97/72 L 102/73 Pulse Oximetry 92 100 Oxygen Delivery Oxygen Flow Rate Fraction of Inspired Oxygen 01/19/24 02:23 01/19/24 02:23 01/18/24 23:15 Temperature Pulse Rate 98 98 120 H Respiratory Rate 28 H 23 H Blood Pressure Pulse Oximetry 100 Oxygen Delivery Mechanical Ventilation Oxygen Flow Rate Fraction of Inspired Oxygen 60 01/18/24 23:30 01/18/24 23:45 01/19/24 00:00 Temperature Pulse Rate 117 H 116 H 113 H Respiratory Rate 27 H 27 H 28 H Blood Pressure Pulse Oximetry Oxygen Delivery Oxygen Flow Rate Fraction of Inspired Oxygen 01/19/24 00:15 01/19/24 00:30 01/19/24 00:45 Temperature Pulse Rate 112 H 108 H 108 H Respiratory Rate 23 H 29 H 29 H Blood Pressure Pulse Oximetry Oxygen Delivery Oxygen Flow Rate Fraction of Inspired Oxygen 01/19/24 01:00 01/19/24 01:15 01/19/24 01:30 Temperature Pulse Rate 106 H 103 H 102 H Respiratory Rate 26 H 28 H 28 H Blood Pressure Pulse Oximetry Oxygen Delivery Oxygen Flow Rate Fraction of Inspired Oxygen 01/19/24 01:45 01/19/24 02:00 01/19/24 02:15 Temperature Pulse Rate 101 H 101 H 101 H Respiratory Rate 28 H 28 H 26 H Blood Pressure Pulse Oximetry Oxygen Delivery Oxygen Flow Rate Fraction of Inspired Oxygen 01/19/24 02:30 01/19/24 02:45 01/19/24 03:00 Temperature Pulse Rate 104 H 101 H 101 H Respiratory Rate 24 H 25 H 28 H Blood Pressure Pulse Oximetry Oxygen Delivery Oxygen Flow Rate Fraction of Inspired Oxygen 01/18/24 23:30 01/18/24 23:45 01/19/24 00:00 Temperature Pulse Rate 117 H 116 H 113 H Respiratory Rate 27 H 27 H 28 H Blood Pressure Pulse Oximetry Oxygen Delivery Oxygen Flow Rate Fraction of Inspired Oxygen 01/19/24 00:15 01/19/24 00:30 01/19/24 00:45 Temperature Pulse Rate 112 H 110 H 108 H Respiratory Rate 23 H 29 H 29 H Blood Pressure Pulse Oximetry Oxygen Delivery Oxygen Flow Rate Fraction of Inspired Oxygen 01/19/24 01:00 01/19/24 01:15 01/19/24 01:30 Temperature Pulse Rate 106 H 103 H 102 H Respiratory Rate 26 H 28 H 28 H Blood Pressure Pulse Oximetry Oxygen Delivery Oxygen Flow Rate Fraction of Inspired Oxygen 01/19/24 01:45 01/19/24 02:00 01/19/24 02:15 Temperature Pulse Rate 101 H 101 H 101 H Respiratory Rate 28 H 28 H 26 H Blood Pressure Pulse Oximetry Oxygen Delivery Oxygen Flow Rate Fraction of Inspired Oxygen 01/19/24 02:30 01/19/24 02:45 01/19/24 03:00 Temperature Pulse Rate 104 H 101 H 101 H Respiratory Rate 24 H 25 H 28 H Blood Pressure Pulse Oximetry Oxygen Delivery Oxygen Flow Rate Fraction of Inspired Oxygen 01/19/24 03:15 01/19/24 03:15 01/18/24 22:00 Temperature Pulse Rate 101 H 101 H 129 H Respiratory Rate 27 H 27 H 16 Blood Pressure Pulse Oximetry Oxygen Delivery Oxygen Flow Rate Fraction of Inspired Oxygen 01/18/24 22:09 01/18/24 22:15 01/18/24 22:16 Temperature Pulse Rate 129 H 133 H 129 H Respiratory Rate 32 H 29 H 34 H Blood Pressure 146/93 H 131/91 H Pulse Oximetry 97 98 99 Oxygen Delivery Oxygen Flow Rate Fraction of Inspired Oxygen 01/18/24 22:30 01/18/24 22:31 01/18/24 22:45 Temperature 99.7 F H 99.8 F H 100.3 F H Pulse Rate 124 H 124 H 121 H Respiratory Rate 22 H 28 H 27 H Blood Pressure 130/87 143/95 H Pulse Oximetry 98 98 98 Oxygen Delivery Oxygen Flow Rate Fraction of Inspired Oxygen 01/18/24 22:48 01/18/24 23:00 01/18/24 23:01 Temperature 100.3 F H 100.4 F H 100.4 F H Pulse Rate 121 H 123 H 123 H Respiratory Rate 26 H 28 H 27 H Blood Pressure 149/92 H Pulse Oximetry 98 97 98 Oxygen Delivery Oxygen Flow Rate Fraction of Inspired Oxygen 01/18/24 23:15 01/18/24 23:16 01/18/24 23:30 Temperature 100.4 F H 100.4 F H 100.4 F H Pulse Rate 119 H 120 H 117 H Respiratory Rate 22 H 23 H 23 H Blood Pressure 130/87 114/79 Pulse Oximetry 97 97 95 Oxygen Delivery Oxygen Flow Rate Fraction of Inspired Oxygen 01/18/24 23:31 01/18/24 23:45 01/18/24 23:46 Temperature 100.4 F H 100.4 F H 100.4 F H Pulse Rate 117 H 116 H 115 H Respiratory Rate 27 H 28 H 26 H Blood Pressure 100/79 Pulse Oximetry 94 93 93 Oxygen Delivery Oxygen Flow Rate Fraction of Inspired Oxygen 01/19/24 00:00 01/19/24 00:02 01/19/24 00:16 Temperature 100.4 F H 100.4 F H 100.4 F H Pulse Rate 114 H 113 H 112 H Respiratory Rate 26 H 28 H 25 H Blood Pressure 97/72 L Pulse Oximetry 92 94 93 Oxygen Delivery Oxygen Flow Rate Fraction of Inspired Oxygen 01/19/24 00:30 01/19/24 00:31 01/19/24 00:45 Temperature 100.4 F H 100.4 F H 100.4 F H Pulse Rate 110 H 109 H 108 H Respiratory Rate 27 H 29 H 29 H Blood Pressure 92/69 L 92/63 L Pulse Oximetry 93 93 93 Oxygen Delivery Oxygen Flow Rate Fraction of Inspired Oxygen 01/19/24 00:46 01/19/24 01:00 01/19/24 01:01 Temperature 100.4 F H 100.3 F H 100.3 F H Pulse Rate 108 H 106 H 106 H Respiratory Rate 30 H 27 H 27 H Blood Pressure 95/64 L Pulse Oximetry 93 94 94 Oxygen Delivery Oxygen Flow Rate Fraction of Inspired Oxygen 01/19/24 01:15 01/19/24 01:16 01/19/24 01:30 Temperature 100.3 F H 100.3 F H 100.3 F H Pulse Rate 104 H 104 H 102 H Respiratory Rate 31 H 28 H 27 H Blood Pressure 96/64 L 93/62 L Pulse Oximetry 96 96 97 Oxygen Delivery Oxygen Flow Rate Fraction of Inspired Oxygen 01/19/24 01:31 01/19/24 01:45 01/19/24 01:46 Temperature 100.3 F H 100.3 F H 100.3 F H Pulse Rate 102 H 101 H 101 H Respiratory Rate 26 H 29 H 26 H Blood Pressure 102/68 Pulse Oximetry 97 100 100 Oxygen Delivery Oxygen Flow Rate Fraction of Inspired Oxygen 01/19/24 02:00 01/19/24 02:01 01/19/24 02:15 Temperature 100.4 F H 100.4 F H 100.5 F H Pulse Rate 100 101 H 101 H Respiratory Rate 29 H 26 H 28 H Blood Pressure 102/73 106/74 Pulse Oximetry 100 100 100 Oxygen Delivery Oxygen Flow Rate Fraction of Inspired Oxygen 01/19/24 02:16 01/19/24 02:40 01/19/24 04:46 Temperature 100.5 F H 101.1 F H Pulse Rate 101 H 102 H Respiratory Rate 24 H 24 H Blood Pressure Pulse Oximetry 100 Oxygen Delivery Oxygen Flow Rate Fraction of Inspired Oxygen 01/19/24 04:30 01/19/24 04:30 01/19/24 04:30 Temperature 101.2 F H Pulse Rate 114 H 114 H Respiratory Rate 26 H 26 H Blood Pressure 155/89 H Pulse Oximetry 98 98 Oxygen Delivery Mechanical Ventilation Oxygen Flow Rate Fraction of Inspired Oxygen 60 60 01/18/24 22:45 01/19/24 00:00 01/19/24 04:00 Temperature Pulse Rate 67 Respiratory Rate Blood Pressure Pulse Oximetry Oxygen Delivery Oxygen Flow Rate Fraction of Inspired Oxygen 100 80 01/19/24 05:06 01/19/24 04:00 01/19/24 04:00 Temperature Pulse Rate 106 H 103 H 103 H Respiratory Rate 29 H 29 H Blood Pressure Pulse Oximetry 92 Oxygen Delivery Mechanical Ventilation Oxygen Flow Rate Fraction of Inspired Oxygen 60 01/19/24 05:46 01/19/24 02:30 01/19/24 02:31 Temperature 100.9 F H 100.6 F H 100.6 F H Pulse Rate 102 H 102 H Respiratory Rate 28 H 30 H Blood Pressure 119/78 Pulse Oximetry 100 100 Oxygen Delivery Oxygen Flow Rate Fraction of Inspired Oxygen 01/19/24 02:45 01/19/24 02:46 01/19/24 03:00 Temperature 100.7 F H 100.7 F H 100.8 F H Pulse Rate 101 H 102 H 101 H Respiratory Rate 26 H 26 H 28 H Blood Pressure 100/67 91/65 L Pulse Oximetry 95 96 92 Oxygen Delivery Oxygen Flow Rate Fraction of Inspired Oxygen 01/19/24 03:01 01/19/24 03:15 01/19/24 03:16 Temperature 100.8 F H 100.9 F H 100.9 F H Pulse Rate 101 H 101 H 102 H Respiratory Rate 28 H 27 H 29 H Blood Pressure 96/66 L Pulse Oximetry 92 92 92 Oxygen Delivery Oxygen Flow Rate Fraction of Inspired Oxygen 01/19/24 03:30 01/19/24 03:31 01/19/24 03:45 Temperature 101.0 F H 101.0 F H 101.0 F H Pulse Rate 102 H 102 H 104 H Respiratory Rate 27 H 27 H 27 H Blood Pressure 104/88 92/69 L Pulse Oximetry 91 92 94 Oxygen Delivery Oxygen Flow Rate Fraction of Inspired Oxygen 01/19/24 03:46 01/19/24 04:00 01/19/24 04:01 Temperature 101.0 F H 101.1 F H 101.1 F H Pulse Rate 103 H 103 H 104 H Respiratory Rate 28 H 28 H 29 H Blood Pressure 98/69 L Pulse Oximetry 94 95 95 Oxygen Delivery Oxygen Flow Rate Fraction of Inspired Oxygen 01/19/24 04:15 01/19/24 04:16 01/19/24 05:45 Temperature 101.1 F H 101.1 F H Pulse Rate 109 H 108 H 118 H Respiratory Rate 28 H 26 H 25 H Blood Pressure 140/86 Pulse Oximetry 98 98 Oxygen Delivery Oxygen Flow Rate Fraction of Inspired Oxygen 01/19/24 05:45 01/19/24 06:00 01/19/24 06:00 Temperature Pulse Rate 118 H 120 H 120 H Respiratory Rate 25 H 27 H 27 H Blood Pressure Pulse Oximetry Oxygen Delivery Oxygen Flow Rate Fraction of Inspired Oxygen 01/19/24 06:15 01/19/24 06:15 01/19/24 06:00 Temperature Pulse Rate 122 H 120 H 120 H Respiratory Rate 28 H 28 H Blood Pressure Pulse Oximetry Oxygen Delivery Oxygen Flow Rate Fraction of Inspired Oxygen 01/19/24 05:48 01/19/24 06:04 01/19/24 06:30 Temperature 100.5 F H 100.2 F H Pulse Rate 118 H 121 H 119 H Respiratory Rate 25 H 27 H 27 H Blood Pressure Pulse Oximetry 95 93 Oxygen Delivery Oxygen Flow Rate Fraction of Inspired Oxygen 01/19/24 06:30 01/19/24 06:45 01/19/24 06:45 Temperature Pulse Rate 119 H 118 H 118 H Respiratory Rate 27 H 28 H 28 H Blood Pressure Pulse Oximetry Oxygen Delivery Oxygen Flow Rate Fraction of Inspired Oxygen 01/19/24 07:00 01/19/24 07:00 01/19/24 08:31 Temperature Pulse Rate 117 H 117 H 115 H Respiratory Rate 28 H 28 H 31 H Blood Pressure Pulse Oximetry Oxygen Delivery Oxygen Flow Rate Fraction of Inspired Oxygen 01/19/24 08:52 01/19/24 08:52 01/19/24 10:36 Temperature Pulse Rate 106 H 106 H 117 H Respiratory Rate 27 H 30 H Blood Pressure Pulse Oximetry 95 Oxygen Delivery Mechanical Ventilation Oxygen Flow Rate Fraction of Inspired Oxygen 60 Exam Narrative: General: Intubated and sedated in no acute distress HEENT:? Pupils equal and reactive, sclera is clear, ETT in place Neck:? Supple Respiratory:? Coarse breath sounds bilaterally, greater and lower lobes. Decreased breath sounds at lower lobes, no wheezing, adequate air entry Cardiac:? S1-S2 normal, sinus tachycardia Abdomen:? Soft, nontender, nondistended, hypoactive bowel sounds, PEG tube in place Extremities: Trace edema bilaterally, the pulse Neuro:? Patient is intubated, sedated, opens his eyes and follows simple commands in bilateral upper extremities, not and lower extremities Skin:? Trauma and dry, pallor noted Psych:? Unable to assess at this time Results Labs 01/19/24 03:37 01/19/24 03:37 Labs: Short CBC 01/18/24 01/19/24 Range/Units 22:15 03:37 WBC 21.1 H 12.8 H (4.5-10.0) K/mm3 Hgb 12.1 L 9.5 L (14.0-18.0) g/dL Hct 39.9 L 31.2 L (42.0-52.0) % Plt Count 297 D 224 (150-375) k/mm3 BMP 01/18/24 01/19/24 22:15 03:37 Sodium 150 H 149 H Potassium 3.8 3.2 L Chloride 113 H 113 H Carbon Dioxide 33 H 33 H BUN 27 H 32 H Creatinine 0.60 L 0.80 Glucose 155 H 147 H Calcium 8.4 8.3 L Liver Function 01/18/24 01/19/24 Range/Units 22:15 03:37 Total Bilirubin 0.4 0.4 (0.2-1.3) mg/dL AST 19 16 L (17-59) U/L ALT 16 15 (6-50) U/L Alkaline Phosphatase 102 77 (38-126) U/L Albumin 3.0 L 2.9 L (3.5-5.1) g/dL Hospitalist MIPS Advance Care Plan I have confirmed that the patient's Advanced Care Plan is present, code status is documented, or surrogate decision maker is listed in patient medical record.: Yes Medication Reconciliation I have utilized all available resources to obtain, update and review the patients current medications (includes all prescriptions, OTC, herbals, cannabis, and nutritional supplements).: Yes
--- NOTE | 2024-01-19 11:42 | WPDGIPROGNO ---
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 Patient has been unable to tolerate the G-tube feeding I did discuss with the Pulmonary staff it looks like the patient had this problem in the past too. At this time from a GI perspective the only option that can help patient once he is stable would be a GJ tube which can be placed by Interventional Radiology. continue with the conservative management continue with the TPN for now as patient is intubated regularity the will resume patient care in the morning overall prognosis poor and guarded Subjective Date/time seen: 01/19/24 11:42 Interval history: currently intubated had an episode of hypoxia yesterday and was transferred to the ICU unable to get any history from the patient no family is present at the bedside GI has been consulted because of unable to tolerate the G-tube feeding Review of Systems Review of Systems: unable to obtain as sedated and on vent Exam Narrative: no acute distress currently intubated Neck: Other: supple Resp: Other: air entry equal bilateral Cardio: Other: S1-S2 regular rate with GI: Other: abdomen soft nontender G-tube in place no signs of cellulitis Neuro: Other: unable to check currently intubated Objective Data Vital Signs Vital Signs: Vital Signs - 24 hr 01/18/24 12:00 01/18/24 12:00 01/18/24 13:34 Temperature Pulse Rate 99 99 99 Respiratory Rate 22 H Blood Pressure Pulse Oximetry 95 Oxygen Delivery High Flow Therapy with Na Oxygen Flow Rate 40 Fraction of Inspired Oxygen 60 01/18/24 16:00 01/18/24 16:00 01/18/24 17:23 Temperature Pulse Rate 99 99 99 Respiratory Rate 22 H Blood Pressure Pulse Oximetry 95 Oxygen Delivery High Flow Therapy with Na Oxygen Flow Rate 40 Fraction of Inspired Oxygen 60 01/18/24 17:41 01/18/24 17:50 01/18/24 20:13 Temperature 98.6 F 98.3 F Pulse Rate 99 94 103 H Respiratory Rate 20 22 H 22 H Blood Pressure 130/68 157/89 H Pulse Oximetry 95 96 97 Oxygen Delivery High Flow Therapy with Na Oxygen Flow Rate 30 Fraction of Inspired Oxygen 60 01/18/24 20:31 01/18/24 20:32 01/18/24 22:08 Temperature Pulse Rate 100 100 128 H Respiratory Rate 18 18 Blood Pressure Pulse Oximetry 97 97 Oxygen Delivery High Flow Therapy with Na Mechanical Ventilation Oxygen Flow Rate 30 Fraction of Inspired Oxygen 60 100 01/18/24 21:55 01/18/24 21:55 01/18/24 22:15 Temperature Pulse Rate 127 H 127 H 129 H Respiratory Rate 37 H 37 H 32 H Blood Pressure Pulse Oximetry Oxygen Delivery Oxygen Flow Rate Fraction of Inspired Oxygen 01/18/24 22:15 01/18/24 22:30 01/18/24 22:30 Temperature Pulse Rate 129 H 125 H 125 H Respiratory Rate 32 H 31 H 31 H Blood Pressure Pulse Oximetry Oxygen Delivery Oxygen Flow Rate Fraction of Inspired Oxygen 01/18/24 22:45 01/18/24 23:10 01/18/24 23:00 Temperature Pulse Rate 123 H 121 H 121 H Respiratory Rate 27 H 26 H 26 H Blood Pressure Pulse Oximetry Oxygen Delivery Oxygen Flow Rate Fraction of Inspired Oxygen 01/18/24 22:50 01/18/24 21:05 01/18/24 23:02 Temperature 99.5 F Pulse Rate 138 H 122 H Respiratory Rate 30 H Blood Pressure 210/98 H Pulse Oximetry 79 L 89 L 97 Oxygen Delivery High Flow Therapy with Na High Flow Therapy with Na Mechanical Ventilation Oxygen Flow Rate 30 30 Fraction of Inspired Oxygen 60 100 01/18/24 23:25 01/18/24 20:00 01/18/24 22:00 Temperature Pulse Rate 118 H 100 137 H Respiratory Rate Blood Pressure Pulse Oximetry 95 Oxygen Delivery Mechanical Ventilation Oxygen Flow Rate Fraction of Inspired Oxygen 80 01/19/24 00:00 01/19/24 00:00 01/19/24 00:00 Temperature 99.9 F H Pulse Rate 113 H 113 H 113 H Respiratory Rate 28 H 28 H Blood Pressure 97/72 L Pulse Oximetry 92 92 Oxygen Delivery Mechanical Ventilation Oxygen Flow Rate Fraction of Inspired Oxygen 80 01/19/24 02:00 01/19/24 02:00 01/19/24 02:23 Temperature 100.4 F H Pulse Rate 101 H 101 H 98 Respiratory Rate 28 H Blood Pressure 102/73 Pulse Oximetry 100 100 Oxygen Delivery Mechanical Ventilation Oxygen Flow Rate Fraction of Inspired Oxygen 60 01/19/24 02:23 01/18/24 23:15 01/18/24 23:30 Temperature Pulse Rate 98 120 H 117 H Respiratory Rate 28 H 23 H 27 H Blood Pressure Pulse Oximetry Oxygen Delivery Oxygen Flow Rate Fraction of Inspired Oxygen 01/18/24 23:45 01/19/24 00:00 01/19/24 00:15 Temperature Pulse Rate 116 H 113 H 112 H Respiratory Rate 27 H 28 H 23 H Blood Pressure Pulse Oximetry Oxygen Delivery Oxygen Flow Rate Fraction of Inspired Oxygen 01/19/24 00:30 01/19/24 00:45 01/19/24 01:00 Temperature Pulse Rate 108 H 108 H 106 H Respiratory Rate 29 H 29 H 26 H Blood Pressure Pulse Oximetry Oxygen Delivery Oxygen Flow Rate Fraction of Inspired Oxygen 01/19/24 01:15 01/19/24 01:30 01/19/24 01:45 Temperature Pulse Rate 103 H 102 H 101 H Respiratory Rate 28 H 28 H 28 H Blood Pressure Pulse Oximetry Oxygen Delivery Oxygen Flow Rate Fraction of Inspired Oxygen 01/19/24 02:00 01/19/24 02:15 01/19/24 02:30 Temperature Pulse Rate 101 H 101 H 104 H Respiratory Rate 28 H 26 H 24 H Blood Pressure Pulse Oximetry Oxygen Delivery Oxygen Flow Rate Fraction of Inspired Oxygen 01/19/24 02:45 01/19/24 03:00 01/18/24 23:30 Temperature Pulse Rate 101 H 101 H 117 H Respiratory Rate 25 H 28 H 27 H Blood Pressure Pulse Oximetry Oxygen Delivery Oxygen Flow Rate Fraction of Inspired Oxygen 01/18/24 23:45 01/19/24 00:00 01/19/24 00:15 Temperature Pulse Rate 116 H 113 H 112 H Respiratory Rate 27 H 28 H 23 H Blood Pressure Pulse Oximetry Oxygen Delivery Oxygen Flow Rate Fraction of Inspired Oxygen 01/19/24 00:30 01/19/24 00:45 01/19/24 01:00 Temperature Pulse Rate 110 H 108 H 106 H Respiratory Rate 29 H 29 H 26 H Blood Pressure Pulse Oximetry Oxygen Delivery Oxygen Flow Rate Fraction of Inspired Oxygen 01/19/24 01:15 01/19/24 01:30 01/19/24 01:45 Temperature Pulse Rate 103 H 102 H 101 H Respiratory Rate 28 H 28 H 28 H Blood Pressure Pulse Oximetry Oxygen Delivery Oxygen Flow Rate Fraction of Inspired Oxygen 01/19/24 02:00 01/19/24 02:15 01/19/24 02:30 Temperature Pulse Rate 101 H 101 H 104 H Respiratory Rate 28 H 26 H 24 H Blood Pressure Pulse Oximetry Oxygen Delivery Oxygen Flow Rate Fraction of Inspired Oxygen 01/19/24 02:45 01/19/24 03:00 01/19/24 03:15 Temperature Pulse Rate 101 H 101 H 101 H Respiratory Rate 25 H 28 H 27 H Blood Pressure Pulse Oximetry Oxygen Delivery Oxygen Flow Rate Fraction of Inspired Oxygen 01/19/24 03:15 01/18/24 22:00 01/18/24 22:09 Temperature Pulse Rate 101 H 129 H 129 H Respiratory Rate 27 H 16 32 H Blood Pressure 146/93 H Pulse Oximetry 97 Oxygen Delivery Oxygen Flow Rate Fraction of Inspired Oxygen 01/18/24 22:15 01/18/24 22:16 01/18/24 22:30 Temperature 99.7 F H Pulse Rate 133 H 129 H 124 H Respiratory Rate 29 H 34 H 22 H Blood Pressure 131/91 H 130/87 Pulse Oximetry 98 99 98 Oxygen Delivery Oxygen Flow Rate Fraction of Inspired Oxygen 01/18/24 22:31 01/18/24 22:45 01/18/24 22:48 Temperature 99.8 F H 100.3 F H 100.3 F H Pulse Rate 124 H 121 H 121 H Respiratory Rate 28 H 27 H 26 H Blood Pressure 143/95 H Pulse Oximetry 98 98 98 Oxygen Delivery Oxygen Flow Rate Fraction of Inspired Oxygen 01/18/24 23:00 01/18/24 23:01 01/18/24 23:15 Temperature 100.4 F H 100.4 F H 100.4 F H Pulse Rate 123 H 123 H 119 H Respiratory Rate 28 H 27 H 22 H Blood Pressure 149/92 H 130/87 Pulse Oximetry 97 98 97 Oxygen Delivery Oxygen Flow Rate Fraction of Inspired Oxygen 01/18/24 23:16 01/18/24 23:30 01/18/24 23:31 Temperature 100.4 F H 100.4 F H 100.4 F H Pulse Rate 120 H 117 H 117 H Respiratory Rate 23 H 23 H 27 H Blood Pressure 114/79 Pulse Oximetry 97 95 94 Oxygen Delivery Oxygen Flow Rate Fraction of Inspired Oxygen 01/18/24 23:45 01/18/24 23:46 01/19/24 00:00 Temperature 100.4 F H 100.4 F H 100.4 F H Pulse Rate 116 H 115 H 114 H Respiratory Rate 28 H 26 H 26 H Blood Pressure 100/79 97/72 L Pulse Oximetry 93 93 92 Oxygen Delivery Oxygen Flow Rate Fraction of Inspired Oxygen 01/19/24 00:02 01/19/24 00:16 01/19/24 00:30 Temperature 100.4 F H 100.4 F H 100.4 F H Pulse Rate 113 H 112 H 110 H Respiratory Rate 28 H 25 H 27 H Blood Pressure 92/69 L Pulse Oximetry 94 93 93 Oxygen Delivery Oxygen Flow Rate Fraction of Inspired Oxygen 01/19/24 00:31 01/19/24 00:45 01/19/24 00:46 Temperature 100.4 F H 100.4 F H 100.4 F H Pulse Rate 109 H 108 H 108 H Respiratory Rate 29 H 29 H 30 H Blood Pressure 92/63 L Pulse Oximetry 93 93 93 Oxygen Delivery Oxygen Flow Rate Fraction of Inspired Oxygen 01/19/24 01:00 01/19/24 01:01 01/19/24 01:15 Temperature 100.3 F H 100.3 F H 100.3 F H Pulse Rate 106 H 106 H 104 H Respiratory Rate 27 H 27 H 31 H Blood Pressure 95/64 L 96/64 L Pulse Oximetry 94 94 96 Oxygen Delivery Oxygen Flow Rate Fraction of Inspired Oxygen 01/19/24 01:16 01/19/24 01:30 01/19/24 01:31 Temperature 100.3 F H 100.3 F H 100.3 F H Pulse Rate 104 H 102 H 102 H Respiratory Rate 28 H 27 H 26 H Blood Pressure 93/62 L Pulse Oximetry 96 97 97 Oxygen Delivery Oxygen Flow Rate Fraction of Inspired Oxygen 01/19/24 01:45 01/19/24 01:46 01/19/24 02:00 Temperature 100.3 F H 100.3 F H 100.4 F H Pulse Rate 101 H 101 H 100 Respiratory Rate 29 H 26 H 29 H Blood Pressure 102/68 102/73 Pulse Oximetry 100 100 100 Oxygen Delivery Oxygen Flow Rate Fraction of Inspired Oxygen 01/19/24 02:01 01/19/24 02:15 01/19/24 02:16 Temperature 100.4 F H 100.5 F H 100.5 F H Pulse Rate 101 H 101 H 101 H Respiratory Rate 26 H 28 H 24 H Blood Pressure 106/74 Pulse Oximetry 100 100 100 Oxygen Delivery Oxygen Flow Rate Fraction of Inspired Oxygen 01/19/24 02:40 01/19/24 04:46 01/19/24 04:30 Temperature 101.1 F H Pulse Rate 102 H 114 H Respiratory Rate 24 H 26 H Blood Pressure Pulse Oximetry 98 Oxygen Delivery Mechanical Ventilation Oxygen Flow Rate Fraction of Inspired Oxygen 60 01/19/24 04:30 01/19/24 04:30 01/18/24 22:45 Temperature 101.2 F H Pulse Rate 114 H Respiratory Rate 26 H Blood Pressure 155/89 H Pulse Oximetry 98 Oxygen Delivery Oxygen Flow Rate Fraction of Inspired Oxygen 60 100 01/19/24 00:00 01/19/24 04:00 01/19/24 05:06 Temperature Pulse Rate 67 106 H Respiratory Rate Blood Pressure Pulse Oximetry 92 Oxygen Delivery Mechanical Ventilation Oxygen Flow Rate Fraction of Inspired Oxygen 80 60 01/19/24 04:00 01/19/24 04:00 01/19/24 05:46 Temperature 100.9 F H Pulse Rate 103 H 103 H Respiratory Rate 29 H 29 H Blood Pressure Pulse Oximetry Oxygen Delivery Oxygen Flow Rate Fraction of Inspired Oxygen 01/19/24 02:30 01/19/24 02:31 01/19/24 02:45 Temperature 100.6 F H 100.6 F H 100.7 F H Pulse Rate 102 H 102 H 101 H Respiratory Rate 28 H 30 H 26 H Blood Pressure 119/78 100/67 Pulse Oximetry 100 100 95 Oxygen Delivery Oxygen Flow Rate Fraction of Inspired Oxygen 01/19/24 02:46 01/19/24 03:00 01/19/24 03:01 Temperature 100.7 F H 100.8 F H 100.8 F H Pulse Rate 102 H 101 H 101 H Respiratory Rate 26 H 28 H 28 H Blood Pressure 91/65 L Pulse Oximetry 96 92 92 Oxygen Delivery Oxygen Flow Rate Fraction of Inspired Oxygen 01/19/24 03:15 01/19/24 03:16 01/19/24 03:30 Temperature 100.9 F H 100.9 F H 101.0 F H Pulse Rate 101 H 102 H 102 H Respiratory Rate 27 H 29 H 27 H Blood Pressure 96/66 L 104/88 Pulse Oximetry 92 92 91 Oxygen Delivery Oxygen Flow Rate Fraction of Inspired Oxygen 01/19/24 03:31 01/19/24 03:45 01/19/24 03:46 Temperature 101.0 F H 101.0 F H 101.0 F H Pulse Rate 102 H 104 H 103 H Respiratory Rate 27 H 27 H 28 H Blood Pressure 92/69 L Pulse Oximetry 92 94 94 Oxygen Delivery Oxygen Flow Rate Fraction of Inspired Oxygen 01/19/24 04:00 01/19/24 04:01 01/19/24 04:15 Temperature 101.1 F H 101.1 F H 101.1 F H Pulse Rate 103 H 104 H 109 H Respiratory Rate 28 H 29 H 28 H Blood Pressure 98/69 L 140/86 Pulse Oximetry 95 95 98 Oxygen Delivery Oxygen Flow Rate Fraction of Inspired Oxygen 01/19/24 04:16 01/19/24 05:45 01/19/24 05:45 Temperature 101.1 F H Pulse Rate 108 H 118 H 118 H Respiratory Rate 26 H 25 H 25 H Blood Pressure Pulse Oximetry 98 Oxygen Delivery Oxygen Flow Rate Fraction of Inspired Oxygen 01/19/24 06:00 01/19/24 06:00 01/19/24 06:15 Temperature Pulse Rate 120 H 120 H 122 H Respiratory Rate 27 H 27 H 28 H Blood Pressure Pulse Oximetry Oxygen Delivery Oxygen Flow Rate Fraction of Inspired Oxygen 01/19/24 06:15 01/19/24 06:00 01/19/24 05:48 Temperature 100.5 F H Pulse Rate 120 H 120 H 118 H Respiratory Rate 28 H 25 H Blood Pressure Pulse Oximetry 95 Oxygen Delivery Oxygen Flow Rate Fraction of Inspired Oxygen 01/19/24 06:04 01/19/24 06:30 01/19/24 06:30 Temperature 100.2 F H Pulse Rate 121 H 119 H 119 H Respiratory Rate 27 H 27 H 27 H Blood Pressure Pulse Oximetry 93 Oxygen Delivery Oxygen Flow Rate Fraction of Inspired Oxygen 01/19/24 06:45 01/19/24 06:45 01/19/24 07:00 Temperature Pulse Rate 118 H 118 H 117 H Respiratory Rate 28 H 28 H 28 H Blood Pressure Pulse Oximetry Oxygen Delivery Oxygen Flow Rate Fraction of Inspired Oxygen 01/19/24 07:00 01/19/24 08:31 01/19/24 08:52 Temperature Pulse Rate 117 H 115 H 106 H Respiratory Rate 28 H 31 H 27 H Blood Pressure Pulse Oximetry Oxygen Delivery Oxygen Flow Rate Fraction of Inspired Oxygen 01/19/24 08:52 01/19/24 10:36 01/19/24 11:16 Temperature Pulse Rate 106 H 117 H 105 H Respiratory Rate 30 H Blood Pressure Pulse Oximetry 95 93 Oxygen Delivery Mechanical Ventilation Mechanical Ventilation Oxygen Flow Rate Fraction of Inspired Oxygen 60 60 01/19/24 08:00 01/19/24 10:00 Temperature Pulse Rate 115 H 106 H Respiratory Rate 26 H 26 H Blood Pressure Pulse Oximetry Oxygen Delivery Oxygen Flow Rate Fraction of Inspired Oxygen Intake/Output Intake/Output: Intake & Output 01/16/24 01/17/24 01/18/24 01/19/24 23:59 23:59 23:59 23:59 Intake Total 2829.2 3639.6 4417.7 1149.2 Output Total 1100 300 500 Balance 1729.2 3339.6 3917.7 1149.2 Meds/Results Medications: Active Medications Generic Name Dose Route Start Last Admin Trade Name Freq PRN Reason Stop Dose Admin Acetaminophen 650 mg 01/15/24 20:11 01/19/24 04:46 Acetaminophen 325 Mg Tablet PO 650 mg Q4H PRN Administration Mild Pain (1-3) or Fever Acetylcysteine 200 mg 01/16/24 02:00 01/19/24 08:30 Acetylcysteine 20% Inhal Soln 800 Mg/4 Ml Vial INHALATION 200 mg Q6HRT GELA Administration Albuterol/Ipratropium 3 ml 01/16/24 02:00 01/19/24 08:30 Ipratropium 0.5 Mg/Albuterol Sulfate 2.5 Mg Ampul.Neb 3 Ml INHALATION 3 ml Q6HRT GELA Administration Amlodipine Besylate 5 mg 01/16/24 09:00 01/19/24 08:31 Amlodipine Besylate 5 Mg Tablet FEED TUBE 5 mg DAILY GELA Administration Dextrose 12.5 gm 01/19/24 02:06 Dextrose 50% 25 Gm/50 Ml Syringe IV PUSH PRN PRN Hypoglycemia Protocol Diazepam 20 mg 01/16/24 00:35 01/18/24 22:30 Diazepam (*Crx) 10 Mg Tablet PO Not Given HS [facility] Enoxaparin Sodium 40 mg 01/17/24 09:00 01/19/24 08:31 Enoxaparin 40 Mg/0.4 Ml Syringe SUB-Q 40 mg DAILY GELA Administration Finasteride 5 mg 01/16/24 09:00 01/19/24 08:31 Finasteride 5 Mg Tablet FEED TUBE 5 mg DAILY GELA Administration Glucagon 1 mg 01/19/24 02:06 Glucagon For Inj 1 Mg Vial IM PRN PRN Hypoglycemia Protocol Glucose 15 gm 01/19/24 02:06 Glucose Oral Gel 15 Gm Of Glucse In 37.5 Gm Tube PO PRN PRN Hypoglycemia Protocol Fentanyl Citrate 2,500 mcg in 250 mls @ 7.5 mls/hr 01/18/24 21:50 01/19/24 10:00 Fentanyl 2,500 Mcg/Ns 250 Ml IV CONT 75 mcg/hr .[id number] GELA 7.5 mls/hr Titration Protocol 75 MCG/HR Midazolam HCl 100 mg in 100 mls @ 4 mls/hr 01/18/24 21:50 01/19/24 10:36 Versed 100 Mg/Ns 100 Ml IV CONT 4 mg/hr .Q25H GELA 4 mls/hr Titration Protocol 4 MG/HR Cefepime HCl 2 gm in 50 mls @ 100 mls/hr 01/19/24 01:00 01/19/24 09:01 Maxipime 2 Gm/Ns 50 Ml IVPB Infused Q8HR GELA Infusion Metronidazole 500 mg in 100 mls @ 100 mls/hr 01/19/24 00:00 01/19/24 07:25 Flagyl 500 Mg/Iso Soln 100 Ml IVPB Infused Q6HR GELA Infusion Dextrose 1,000 mls @ 100 mls/hr 01/19/24 02:06 Dextrose 5% 1,000 Ml IVPB PRN PRN Hypoglycemia Protocol Vancomycin HCl 1,250 mg in 250 mls @ 250 mls/hr 01/19/24 19:00 Vancomycin 1,250 Mg/Ns 250 Ml IVPB Q18H GELA Potassium Chloride 100 mls @ 25 mls/hr 01/19/24 10:30 Kcl 40 Meq/Water 100 Ml IVPB 01/19/24 14:29 ONCE ONE Dextrose 1,000 mls @ 50 mls/hr 01/19/24 12:00 Dextrose 10% IV CONT .Q20H PRN if PN is interrupted Multivitamins 2.5 ml/ 2,005 mls @ 40 mls/hr 01/19/24 11:30 Multivitamins 2.5 ml/ Amino IV CONT Acids/Dextrose .Q24H [facility] Protocol Fat Emulsion Intravenous 250 mls @ 20.833 mls/hr 01/19/24 12:00 Lipids 20% IVPB Q24H GELA Insulin Aspart 3 - 6 units 01/19/24 06:00 01/19/24 04:47 Insulin Aspart (*Bkc) 100 Units/Ml SUB-Q Not Given Q6HR [facility] Protocol Metoclopramide HCl 5 mg 01/18/24 18:00 01/19/24 05:59 Metoclopramide Hcl Inj 10 Mg/2 Ml Vial IV PUSH 5 mg Q6HR GELA Administration Miconazole Nitrate 1 applic 01/16/24 09:00 01/19/24 08:32 Miconazole Nitrate 2% Cream 30 Gm Tube TOPICAL 1 applic Q12H [facility] Administration Multi-Ingred Cream/Lotion/Oil/Oint 1 applic 01/19/24 09:00 01/19/24 08:45 Mineral Oil/White Petrolatum Ointment EACH EYE 1 applic Q12HR [facility] Administration Nystatin 5 ml 01/16/24 09:00 01/19/24 08:31 Nystatin 100,000 Units/Ml Susp 5 Ml Oral.Susp PO 5 ml TID GELA Administration Pantoprazole Sodium 40 mg 01/19/24 09:00 01/19/24 08:32 Pantoprazole Sodium Iv 40 Mg Vial IV PUSH 40 mg Q12HR GELA Administration Sodium Chloride 20 ml 01/19/24 09:47 Central Line Flush IV PUSH PRN PRN after blood draws Sodium Chloride 10 ml 01/19/24 09:47 Central Line Flush IV PUSH PRN PRN with TPN bag changes Sodium Chloride 10 ml 01/19/24 14:00 Central Line Flush IV PUSH Q8HR [facility] Zolpidem Tartrate 5 mg 01/16/24 00:35 01/18/24 22:31 Zolpidem Tartrate (*Crx) 5 Mg Tablet FEED TUBE Not Given HS GELA Zolpidem Tartrate 5 mg 01/16/24 00:31 Zolpidem Tartrate (*Crx) 5 Mg Tablet FEED TUBE HS PRN Intractable insomnia Radiology Results: ITS Impressions High Resolution CT 01/15/24 17:39 IMPRESSION: 1. Extensive tree-in-bud opacities in the dependent aspect of both lungs with more dense consolidation in the dependent aspect of the bilateral lower lobes consistent with pneumonia. This may be due to aspiration given the distribution of the presence of likely aspirated barium in the bilateral lower lobes. Chest CTA 01/15/24 19:40 IMPRESSION: 1. No pulmonary collision. 2. Extensive tree-in-bud opacities in the bilateral lower lungs with more dense consolidation in the dependent bilateral lower lobes consistent with pneumonia. Significant progression of mucus plugging throughout the lower lobar bronchi. 3. A few high attenuation material in the basilar lower lobes, left greater than right right which is suspicious for aspirated barium. Upper GI Series 01/17/24 15:50 IMPRESSION: 1. Percutaneous gastrostomy tube bulb in the distal body the stomach with normal small bowel follow-through. 2. Persistent opacities in the right mid to lower and left lower lung zones suspicious for pneumonia with some increased density at the lung bases suspicious for aspirated barium. Abdomen X-Ray 01/19/24 06:30 IMPRESSION: 1. Nasogastric tube tip in the stomach. Chest X-Ray 01/19/24 09:49 IMPRESSION: 1. PICC tip in the superior vena cava. 2. Stable airspace opacities in right lung and left mid and lower lung zones, consistent with pneumonia. 3. Stable small pleural effusions. Labs Labs: Laboratory Results - last 24 hr 01/18/24 01/18/24 01/18/24 13:16 22:15 23:09 WBC 21.1 H RBC 3.80 L Hgb 12.1 L Hct 39.9 L MCV 105.0 H MCH 31.8 MCHC 30.3 L RDW 13.5 Plt Count 297 D MPV 12.7 H Immature Gran % (Auto) Neut % (Auto) Lymph % (Auto) [place] % (Auto) Eos % (Auto) Baso % (Auto) Lymph # (Auto) [place] # (Auto) Eos # (Auto) Baso # (Auto) Abs Immat Gran (auto) Absolute Neuts (auto) Absolute Nucleated RBC Nucleated RBC % PT 14.7 INR 1.1 APTT 36.9 H Puncture Site Right radial ABG pH 7.166 L* ABG pCO2 80.8 H* ABG pO2 212.4 H ABG PO2/FiO2 Ratio 2.12 ABG HCO3 28.5 H ABG O2 Saturation 99.1 ABG O2 Content 18.1 ABG Base Excess -1.9 A-a Gradient 419.8 Oxyhemoglobin 98.7 Carboxyhemoglobin 0.2 Methemoglobin 0.5 Reduced Hemoglobin 0.6 Total Hemoglobin 12.7 O2 Delivery Device Ventilator O2 Liters/Min Not Reportable Minute Volume Not Reportable Vent Rate 18 Vent Mode Cmv FiO2 100 Tidal Volume 450 PEEP 8 Peak Inspir Pressure Not Reportable Pressure Support Not Reportable Sodium 150 H Potassium 3.8 Chloride 113 H Carbon Dioxide 33 H Anion Gap 4 BUN 27 H Creatinine 0.60 L Estim Creat Clear Calc 96 Estimated GFR > 60 Glucose 155 H POC Capillary Glucose 130 H Lactic Acid 1.2 Calcium 8.4 Phosphorus 3.3 Magnesium 1.9 Total Bilirubin 0.4 AST 19 ALT 16 Alkaline Phosphatase 102 Total Protein 7.0 Albumin 3.0 L Procalcitonin 0.4 Nasal MRSA (PCR) 01/19/24 01/19/24 01/19/24 01:05 03:37 04:17 WBC 12.8 H RBC 2.93 L Hgb 9.5 L Hct 31.2 L MCV 106.5 H MCH 32.4 MCHC 30.4 L RDW 13.6 Plt Count 224 MPV 12.9 H Immature Gran % (Auto) 0.4 Neut % (Auto) 93.6 H Lymph % (Auto) 2.3 L [place] % (Auto) 3.5 Eos % (Auto) 0.0 Baso % (Auto) 0.2 Lymph # (Auto) 0.29 L [place] # (Auto) 0.5 Eos # (Auto) 0.0 Baso # (Auto) 0.0 Abs Immat Gran (auto) 0.05 H Absolute Neuts (auto) 12.0 H Absolute Nucleated RBC 0.000 Nucleated RBC % 0.0 PT INR APTT Puncture Site ABG pH ABG pCO2 ABG pO2 ABG PO2/FiO2 Ratio ABG HCO3 ABG O2 Saturation ABG O2 Content ABG Base Excess A-a Gradient Oxyhemoglobin Carboxyhemoglobin Methemoglobin Reduced Hemoglobin Total Hemoglobin O2 Delivery Device O2 Liters/Min Minute Volume Vent Rate Vent Mode FiO2 Tidal Volume PEEP Peak Inspir Pressure Pressure Support Sodium 149 H Potassium 3.2 L Chloride 113 H Carbon Dioxide 33 H Anion Gap 3 L BUN 32 H Creatinine 0.80 Estim Creat Clear Calc 74 Estimated GFR > 60 Glucose 147 H POC Capillary Glucose 227 H Lactic Acid Calcium 8.3 L Phosphorus 3.5 Magnesium 2.1 Total Bilirubin 0.4 AST 16 L ALT 15 Alkaline Phosphatase 77 Total Protein 6.0 L Albumin 2.9 L Procalcitonin Nasal MRSA (PCR) Not detected 01/19/24 05:05 WBC RBC Hgb Hct MCV MCH MCHC RDW Plt Count MPV Immature Gran % (Auto) Neut % (Auto) Lymph % (Auto) [place] % (Auto) Eos % (Auto) Baso % (Auto) Lymph # (Auto) [place] # (Auto) Eos # (Auto) Baso # (Auto) Abs Immat Gran (auto) Absolute Neuts (auto) Absolute Nucleated RBC Nucleated RBC % PT INR APTT Puncture Site Right radial ABG pH 7.320 L ABG pCO2 55.5 H ABG pO2 62.4 L ABG PO2/FiO2 Ratio 1.04 ABG HCO3 28.0 H ABG O2 Saturation 89.7 L ABG O2 Content 14.1 L ABG Base Excess 1.1 A-a Gradient 304.4 Oxyhemoglobin 92.0 Carboxyhemoglobin 0.1 Methemoglobin 0.3 Reduced Hemoglobin 7.6 H Total Hemoglobin 10.9 L O2 Delivery Device Ventilator O2 Liters/Min Not Reportable Minute Volume Not Reportable Vent Rate 24 Vent Mode Cmv FiO2 60 Tidal Volume 450 PEEP 5 Peak Inspir Pressure Not Reportable Pressure Support Not Reportable Sodium Potassium Chloride Carbon Dioxide Anion Gap BUN Creatinine Estim Creat Clear Calc Estimated GFR Glucose POC Capillary Glucose Lactic Acid Calcium Phosphorus Magnesium Total Bilirubin AST ALT Alkaline Phosphatase Total Protein Albumin Procalcitonin Nasal MRSA (PCR)
[2024-01-19] MEDS: KCL 40 MEQ/WATER 100 ML 100 ML 25 ML IVPB (12:10)
[2024-01-19 12:11] LABS: Glucose Point of Care 144 mg/dl (65-105)
[2024-01-19 12:14] LABS: Basophils Percent Auto 0.2 % (0.2-1.2); Hematocrit 35.8 % (42.0-52.0); Hemoglobin 10.6 g/dL (14.0-18.0); Immature Granulocyte Absolute 0.05 K/mm3 (0.00-0.031); Immature Granulocyte Percent A 0.5 % (0-0.5); Lymphocytes Absolute Auto 0.25 K/mm3 (0.9-3.2); Lymphocytes Percent Auto 2.3 % (18.3-44.2); Mean Corpuscular HGB Conc 29.6 g/dl (32-36); Mean Corpuscular Hemoglobin 31.9 pg (26-34); Mean Corpuscular Volume 107.8 fl (80-100); Mean Platelet Volume 12.5 fl (7.4-10.4); Monocytes Absolute Auto 0.3 K/mm3 (0.1-0.6); Monocytes Percent Auto 2.6 % (2.6-8.5); Neutrophils Percent Auto 94.4 % (45.5-73.1); Platelet Count Result 195 k/mm3 (150-375); Red Blood Count 3.32 M/mm3 (4.6-6.20); White Blood Count 10.6 K/mm3 (4.5-10.0)
[2024-01-19] MEDS: AMINO ACIDS 5%/DEXTROSE 15% 2,000 ML with MULTIVITAMINS-12 INJ VIAL 1 2.5 ML, MULTIVITA... 40 ML IV CONT (12:20)
[2024-01-19 12:24] LABS: Alanine Aminotransferase 14 U/L (6-50); Albumin Level 2.7 g/dL (3.5-5.1); Alkaline Phosphatase 70 U/L (38-126); Anion Gap 2 mmol/L (4-12); Aspartate Amino Transferase 16 U/L (17-59); Bilirubin,Total 0.4 mg/dL (0.2-1.3); Blood Urea Nitrogen 39 mg/dL (9-20); Calcium 8.4 mg/dL (8.4-10.2); Carbon Dioxide 35 mmol/L (22-30); Chloride 112 mmol/L (98-107); Estimated CRCL calculation 77 ml/min; Estimated Glomerular Filt Rate > 60; Glucose 151 mg/dL (65-110); Magnesium 2.1 mg/dL (1.6-2.3); Potassium 3.6 mmol/L (3.4-5.0); Sodium 149 mmol/L (137-145)
[2024-01-19] MEDS: FAT EMULSIONS IV 20% 250 ML 20.83 ML IVPB (12:25)
[2024-01-19 12:26] LABS: Partial Thromboplastin Time 42.2 Seconds (22.3-36.8)
[2024-01-19 12:30] LABS: Anisocytosis 1+; Hypochromasia 1+; Macrocytosis 1+ (NORMAL); Ovalocytes 1+; Platelet Estimate Adequate (Adequate); Schistocytes None Seen
[2024-01-19 12:31] LABS: Transferrin 97 mg/dL (206-381)
[2024-01-19] MEDS: CENTRAL LINE FLUSH 10 ML IV PUSH ×2 (12:32→21:05)
[2024-01-19 17:23] LABS: Glucose Point of Care 180 mg/dl (65-105)
[2024-01-19] MEDS: VANCOMYCIN 1,250 MG/NS 250 ML 1,250 MG/250 ML BAG 200 MG IVPB (18:48)
[2024-01-20] VITALS (110 sets, daily range): BP systolic 87–188; BP diastolic 48–91; PULSE 89–113; RESP 22–27; TEMP 37.4–38.4; O2SAT 93–100
[2024-01-20] MEDS: metroNIDAZOLE 500 MG/ISO 100ML 500 MG/100 ML BAG 100 MG IVPB ×4 (00:27→21:31)
[2024-01-20] MEDS: METOCLOPRAMIDE HCL INJ 10 MG/2 ML VIAL 5 MG IV PUSH ×5 (00:28→23:49)
[2024-01-20 00:34] LABS: Glucose Point of Care 141 mg/dl (65-105)
[2024-01-20] MEDS: ACETAMINOPHEN 325 MG TABLET 650 MG PO ×3 (01:58→18:06)
[2024-01-20] MEDS: ACETYLCYSTEINE 20% INHAL SOLN 800 MG/4 ML VIAL 200 MG INHALATION ×2 (02:19→08:00)
[2024-01-20] MEDS: IPRATROPIUM 0.5 MG/ALBUTEROL SULFATE 2.5 MG AMPUL.NEB 3 ML INHALATION ×4 (02:21→20:52)
[2024-01-20] MEDS: FENTANYL 2,500MCG/NS250ML(*CRX 2,500 MCG/250 ML BAG IV CONT (03:34)
[2024-01-20] MEDS: MIDAZOLAM 100MG/NS 100ML(*CRX) 100 MG/100 ML BAG IV CONT (03:35)
[2024-01-20 04:50] LABS: Basophils Percent Auto 0.2 % (0.2-1.2); Eosinophils Percent Auto 0.2 % (0-4.4); Hemoglobin 9.5 g/dL (14.0-18.0); Immature Granulocyte Absolute 0.04 K/mm3 (0.00-0.031); Immature Granulocyte Percent A 0.6 % (0-0.5); Lymphocytes Absolute Auto 0.28 K/mm3 (0.9-3.2); Lymphocytes Percent Auto 4.4 % (18.3-44.2); Mean Corpuscular HGB Conc 29.7 g/dl (32-36); Mean Corpuscular Hemoglobin 32.2 pg (26-34); Mean Corpuscular Volume 108.5 fl (80-100); Mean Platelet Volume 12.7 fl (7.4-10.4); Monocytes Absolute Auto 0.3 K/mm3 (0.1-0.6); Monocytes Percent Auto 4.3 % (2.6-8.5); Neutrophils Absolute Auto 5.7 K/mm3 (1.3-6.7); Neutrophils Percent Auto 90.3 % (45.5-73.1); Platelet Count Result 152 k/mm3 (150-375); Red Blood Count 2.95 M/mm3 (4.6-6.20); Red Cell Distribution Width 14.2 % (11.5-14.5); White Blood Count 6.4 K/mm3 (4.5-10.0)
[2024-01-20 05:08] LABS: Alanine Aminotransferase 11 U/L (6-50); Albumin Level 2.5 g/dL (3.5-5.1); Alkaline Phosphatase 65 U/L (38-126); Anion Gap 2 mmol/L (4-12); Aspartate Amino Transferase 13 U/L (17-59); Bilirubin,Total 0.3 mg/dL (0.2-1.3); Blood Urea Nitrogen 43 mg/dL (9-20); Calcium 8.3 mg/dL (8.4-10.2); Carbon Dioxide 33 mmol/L (22-30); Chloride 112 mmol/L (98-107); Estimated CRCL calculation 57 ml/min; Estimated Glomerular Filt Rate > 60; Glucose 145 mg/dL (65-110); Magnesium 2.1 mg/dL (1.6-2.3); Phosphorus 2.9 mg/dL (2.5-4.5); Potassium 3.7 mmol/L (3.4-5.0); Sodium 147 mmol/L (137-145); Triglycerides 52 mg/dL (<150)
[2024-01-20 05:14] LABS: INR 1.2
[2024-01-20 05:16] LABS: Anisocytosis 1+; Hypochromasia 1+; Partial Thromboplastin Time 44.7 Seconds (22.3-36.8); Platelet Estimate Slightly Decreased (Adequate); Transferrin 85 mg/dL (206-381)
[2024-01-20 05:18] LABS: Macrocytosis 1+ (NORMAL); Schistocytes None Seen
[2024-01-20 05:19] LABS: Large Platelets Present
[2024-01-20 05:28] LABS: Alveolar/Arterial O2 Gradient 193.8 mmHg; Carboxyhemoglobin 0.5 % THb (0-2.0); Fractional Inspired Oxygen 50 %; HCO3 ABG 27.7 mEq/l (22.0-26.0); Methemoglobin ABG 0.3 %THb (0-1.5); Oxygen Content ABG 16.9 %vol (16.0-22.0); Oxygen Saturation ABG 94.8 % (95.0-100.0); Oxyhemoglobin 96.6 % THb (90.0-100.0); PO2 ABG 87.8 mmHg (80.0-100.0); PO2 FiO2 Ratio Arterial Blood 1.76 %; Reduced Hemoglobin 2.6 %THb (0-5.0); Total Hemoglobin 12.4 g/dL (12.0-18.0)
[2024-01-20 05:32] LABS: Device VENTILATOR; Modified Allen's Test Pass; PCO2 ABG 66.6 mmHg (35.0-45.0); Site Drawn RIGHT RADIAL; pH ABG 7.237 (7.350-7.450)
[2024-01-20 05:33] LABS: Arterial Blood Gas PEEP 10 cmH2O; Arterial Blood Gas Vent Mode CMV; Arterial Blood Gas Ventilator rate 24 /MIN
[2024-01-20 05:34] LABS: Arterial Blood Gas Tidal Volume 450 ml
--- NOTE | 2024-01-20 05:57 | PC.NURSE ---
Dr Cueto called with critical ABG results and made aware of 8 beats Vtach; potassium and magnesium reviewed.
[2024-01-20] MEDS: CEFEPIME 2 GM/NS 50 ML 2 GM/50 ML BAG IVPB ×3 (06:06→21:31)
[2024-01-20] MEDS: CENTRAL LINE FLUSH 10 ML IV PUSH ×3 (06:12→21:40)
[2024-01-20] MEDS: PANTOPRAZOLE SODIUM IV 40 MG VIAL IV PUSH ×2 (08:06→21:28)
[2024-01-20] MEDS: ENOXAPARIN 40 MG/0.4 ML SYRINGE SUB-Q (08:06)
[2024-01-20] MEDS: MINERAL OIL/WHITE PETROLATUM OINTMENT 1 APPLIC EACH EYE ×2 (08:06→21:28)
[2024-01-20] MEDS: FINASTERIDE 5 MG TABLET FEED TUBE (08:06)
[2024-01-20] MEDS: amLODIPine BESYLATE 5 MG TABLET FEED TUBE (08:06)
[2024-01-20] MEDS: MICONAZOLE NITRATE 2% CREAM 30 GM TUBE 1 APPLIC TOPICAL ×2 (08:08→21:28)
[2024-01-20 09:16] LABS: Add Urine Microscopic? YES; Appearance Urine Cloudy (Clear); Bacteria Urine None Seen /hpf; Bilirubin Urine Negative (Negative); Blood Urine Non-Hemolyzed Trace (Negative); Color Urine Yellow (Yellow); Glucose Urine UA Negative (Negative); Granular Casts Urine Present /lpf; Ketones Urine Negative (Negative); Leukocyte Esterase Ur Trace LEU/UL (Negative); Need Manual Microscopic Reviewed; Nitrate Urine Negative (Negative); Non Pathogenic Casts >20; Protein Urine 2+ mg/dL (Negative); Specific Grav Ur 1.021 (1.001-1.035); Squamous Epithelial Cell Urine Many /hpf (Few); Urobilinogen Urine 0.2 mg/dL (<2.0); pH Urine 5.5 (5.0-9.0)
--- NOTE | 2024-01-20 10:10 | P.PNINT_ITS ---
Progress Note: A&P Assessment and Plan (1) Acute hypoxic respiratory failure: Code(s): J96.01 - Acute respiratory failure with hypoxia Status: Acute Assessment and Plan: 01/17: Patient intubated after being transferred from intermediate Unit after failing BiPAP and high-flow therapy -chest x-ray shows worsening bilateral pneumonia, ETT adjusted -ABGs reviewed, ventilator adjusted, tidal volume increased to 480, increased PEEP to 10 -continue bronchodilators -continue cefepime and Flagyl -sedated with fentanyl and Versed infusion, maintain RASS of 0 to -2, daily SBT and SAT (2) Aspiration pneumonia: Code(s): J69.0 - Pneumonitis due to inhalation of food and vomit Status: Acute Assessment and Plan: See above (3) Hypertension: Code(s): I10 - Essential (primary) hypertension Status: Acute Assessment and Plan: Discontinue amlodipine as patient is now sedated (4) Electrolyte abnormality: Code(s): E87.8 - Other disorders of electrolyte and fluid balance, not elsewhere classified Status: Acute Assessment and Plan: Replace potassium Increase free water flush (5) Dysphagia: Code(s): R13.10 - Dysphagia, unspecified Status: Acute Assessment and Plan: Patient has had recurrent aspirations requiring antibiotic treatment and multiple intubations in recent past Patient evaluated by GI and initially a gastric emptying study was planned but patient is now intubated unable to complete the study GI doctor recommended GJ or jejunostomy tube I spoke to Radiology and they are unable to perform GJ tube insertion here Discussed with general surgery and they can do open jejunostomy tube but recommend GJ tube insertion by Radiology or Gastroenterology if possible Patient receives his care by Gastroenterology and was noted [facility]. I spoke to patient's and discuss different options and she would like patient to be transferred to [facility] or [facility] so the blade boner there who sees the patient regularly can proceed with the procedure. I will call and attempt to transfer patient. Currently on trickle tube feeds and TPN. I will advance tube feeds as tolerated and if patient tolerates tube feeds at a decent rate will discontinue TPN. Plan DVT prophylaxis: Lovenox Stress ulcer prophylaxis: Protonix Nutrition: TPN and trickle tube feeds at 10 mL/hour. Will advance tube feeds Code Status: Full code Critical Care Time Spent: 35 minutes Discussed with patient's at bedside updated with patient's condition and plan of care. I discussed options of transfer to [facility] or [facility] for GJ tube placement by Radiology or gastroenterology versus open jejunostomy tube insertion [facility]. She states the patient receives his care at [facility] by Gastroenterology and would like patient to be transferred there for procedure to be done there. She verbalized understanding of risks and benefits of transfer and once patient transferred if possible Due to a high probability of clinically significant, life threatening deterioration, the patient required my highest level of preparedness to intervene emergently and I personally spent this critical care time directly and personally managing the patient. This critical care time included obtaining a history; examining the patient; pulse oximetry; ordering and review of studies; arranging urgent treatment with development of a management plan; evaluation of patient's response to treatment; frequent reassessment; and discussions with other providers. It was exclusive of separately billable procedures and treating other patients and teaching time. Please see Assessment and Plan section and the rest of the note for further information on patient assessment and treatment This dictation may have been done utilizing a voice recognition system. Attempts have been made to correct errors. However, there may be uncorrected grammatical, spelling, and recognitions errors present. Subjective Date/time seen: 01/20/24 Overnight events reviewed. febrile overnight Continues to be on mechanical ventilation 10 of PEEP 50% FiO2 On tube feeds at 10 mL and TPN Continues to be sedated with Versed and fentanyl Other Vitals acceptable Review of Systems Review of Systems: ROS unobtainable: Yes unobtainable due to endotracheal tube, unobtainable due to medical condition and unobtainable due to mental status Exam Narrative: General: Intubated and sedated in no acute distress HEENT:? Pupils equal and reactive, sclera is clear, ETT in place Neck:? Supple Respiratory:? Coarse breath sounds bilaterally, greater and lower lobes. Decreased breath sounds at lower lobes, no wheezing, adequate air entry Cardiac:? S1-S2 normal, sinus tachycardia Abdomen:? Soft, nontender, nondistended, hypoactive bowel sounds, PEG tube in place Extremities: Trace edema bilaterally, the pulse Neuro:? Patient is intubated, sedated, Skin:? Trauma and dry, pallor noted Psych:? Unable to assess at this time Objective Data Vital Signs Vital Signs: Vital Signs - 24 hr 01/19/24 10:36 01/19/24 11:16 01/19/24 13:48 Temperature Pulse Rate 117 H 105 H 100 Respiratory Rate 30 H 21 H Blood Pressure Pulse Oximetry 93 Oxygen Delivery Mechanical Ventilation Fraction of Inspired Oxygen 60 01/19/24 13:50 01/19/24 13:56 01/19/24 12:00 Temperature 37.6 C Pulse Rate 100 99 103 H Respiratory Rate 26 H 23 H Blood Pressure 113/74 Pulse Oximetry 97 94 Oxygen Delivery Mechanical Ventilation Fraction of Inspired Oxygen 60 01/19/24 12:00 01/19/24 12:00 01/19/24 14:00 Temperature Pulse Rate 103 H 99 Respiratory Rate 23 H 27 H Blood Pressure Pulse Oximetry Oxygen Delivery Fraction of Inspired Oxygen 60 01/19/24 12:00 01/19/24 14:00 01/19/24 15:05 Temperature Pulse Rate 103 H 99 103 H Respiratory Rate 23 H 27 H 27 H Blood Pressure Pulse Oximetry Oxygen Delivery Fraction of Inspired Oxygen 01/19/24 12:00 01/19/24 14:00 01/19/24 14:00 Temperature 37.8 C H Pulse Rate 106 H 99 99 Respiratory Rate 27 H Blood Pressure 105/51 L Pulse Oximetry 97 Oxygen Delivery Fraction of Inspired Oxygen 01/19/24 16:08 01/19/24 16:00 01/19/24 16:00 Temperature 38.3 C H Pulse Rate 105 H 105 H Respiratory Rate 25 H 25 H Blood Pressure Pulse Oximetry Oxygen Delivery Fraction of Inspired Oxygen 01/19/24 16:00 01/19/24 17:02 01/19/24 16:00 Temperature Pulse Rate 104 H 101 H Respiratory Rate Blood Pressure Pulse Oximetry 96 Oxygen Delivery Mechanical Ventilation Fraction of Inspired Oxygen 60 60 01/19/24 16:00 01/19/24 18:00 01/19/24 18:00 Temperature 38.2 C H Pulse Rate 105 H 99 99 Respiratory Rate 25 H 26 H 26 H Blood Pressure 150/72 H Pulse Oximetry 99 Oxygen Delivery Fraction of Inspired Oxygen 01/19/24 18:00 01/19/24 18:00 01/19/24 20:00 Temperature 37.6 C H Pulse Rate 99 99 100 Respiratory Rate 26 H 24 H Blood Pressure 137/56 L Pulse Oximetry 96 100 Oxygen Delivery Mechanical Ventilation Fraction of Inspired Oxygen 60 01/19/24 20:00 01/19/24 20:00 01/19/24 20:00 Temperature 37.2 C Pulse Rate 100 100 Respiratory Rate 24 H Blood Pressure 162/66 H Pulse Oximetry 100 Oxygen Delivery Fraction of Inspired Oxygen 60 01/19/24 19:00 01/19/24 19:00 01/19/24 20:00 Temperature Pulse Rate 98 98 100 Respiratory Rate 25 H 25 H 24 H Blood Pressure Pulse Oximetry Oxygen Delivery Fraction of Inspired Oxygen 01/19/24 20:00 01/19/24 21:00 01/19/24 21:00 Temperature Pulse Rate 100 99 99 Respiratory Rate 24 H 25 H 25 H Blood Pressure Pulse Oximetry Oxygen Delivery Fraction of Inspired Oxygen 01/19/24 21:00 01/19/24 21:05 01/19/24 19:00 Temperature 37.3 C Pulse Rate 99 96 98 Respiratory Rate 27 H 23 H Blood Pressure 151/63 H Pulse Oximetry 98 96 Oxygen Delivery Mechanical Ventilation Fraction of Inspired Oxygen 60 01/19/24 19:01 01/19/24 19:15 01/19/24 19:30 Temperature 37.3 C 37.2 C 37.2 C Pulse Rate 97 96 98 Respiratory Rate 24 H 25 H 23 H Blood Pressure Pulse Oximetry 96 98 99 Oxygen Delivery Fraction of Inspired Oxygen 01/19/24 19:45 01/19/24 20:00 01/19/24 20:01 Temperature 37.2 C 37.2 C 37.2 C Pulse Rate 98 99 100 Respiratory Rate 25 H 24 H 25 H Blood Pressure 162/66 H Pulse Oximetry 100 100 100 Oxygen Delivery Fraction of Inspired Oxygen 01/19/24 20:15 01/19/24 20:30 01/19/24 20:40 Temperature 37.2 C 37.3 C 37.3 C Pulse Rate 100 100 101 H Respiratory Rate 24 H 26 H 28 H Blood Pressure 154/66 H Pulse Oximetry 100 100 100 Oxygen Delivery Fraction of Inspired Oxygen 01/19/24 20:45 01/19/24 20:46 01/19/24 21:00 Temperature 37.3 C 37.3 C 37.3 C Pulse Rate 101 H 100 102 H Respiratory Rate 25 H 25 H 24 H Blood Pressure 154/66 H 157/66 H Pulse Oximetry 100 100 100 Oxygen Delivery Fraction of Inspired Oxygen 01/19/24 21:01 01/19/24 21:15 01/19/24 21:16 Temperature 37.3 C 37.3 C 37.3 C Pulse Rate 100 100 99 Respiratory Rate 24 H 25 H 24 H Blood Pressure 155/69 H Pulse Oximetry 100 Oxygen Delivery Fraction of Inspired Oxygen 01/19/24 22:00 01/19/24 22:00 01/19/24 22:00 Temperature Pulse Rate 98 97 97 Respiratory Rate 25 H 25 H Blood Pressure 148/64 H Pulse Oximetry 100 Oxygen Delivery Fraction of Inspired Oxygen 01/19/24 22:00 01/19/24 23:26 01/20/24 00:00 Temperature Pulse Rate 97 100 104 H Respiratory Rate 25 H Blood Pressure Pulse Oximetry 98 Oxygen Delivery Mechanical Ventilation Fraction of Inspired Oxygen 60 01/20/24 00:45 01/20/24 00:45 01/19/24 23:00 Temperature Pulse Rate 108 H 96 Respiratory Rate 25 H 25 H Blood Pressure Pulse Oximetry Oxygen Delivery Mechanical Ventilation Fraction of Inspired Oxygen 55 55 01/19/24 23:00 01/20/24 00:00 01/20/24 00:00 Temperature Pulse Rate 96 103 H 103 H Respiratory Rate 25 H 24 H 24 H Blood Pressure Pulse Oximetry Oxygen Delivery Fraction of Inspired Oxygen 01/20/24 00:45 01/20/24 00:45 01/20/24 01:00 Temperature Pulse Rate 108 H 108 H 110 H Respiratory Rate 25 H 25 H 27 H Blood Pressure Pulse Oximetry Oxygen Delivery Fraction of Inspired Oxygen 01/20/24 01:00 01/20/24 01:15 01/20/24 01:15 Temperature Pulse Rate 110 H 110 H 110 H Respiratory Rate 27 H 25 H 25 H Blood Pressure Pulse Oximetry Oxygen Delivery Fraction of Inspired Oxygen 01/20/24 01:30 01/20/24 01:30 01/20/24 01:58 Temperature 38.3 C H Pulse Rate 112 H 112 H Respiratory Rate 27 H 27 H Blood Pressure Pulse Oximetry Oxygen Delivery Fraction of Inspired Oxygen 01/19/24 21:30 01/19/24 21:31 01/19/24 21:45 Temperature 37.3 C 37.3 C 37.4 C Pulse Rate 98 98 96 Respiratory Rate 27 H 22 H 24 H Blood Pressure 153/55 H 138/60 Pulse Oximetry Oxygen Delivery Fraction of Inspired Oxygen 01/19/24 21:46 01/19/24 22:00 01/19/24 22:01 Temperature 37.4 C 37.5 C 37.5 C Pulse Rate 94 95 95 Respiratory Rate 24 H 24 H 24 H Blood Pressure 148/64 H Pulse Oximetry Oxygen Delivery Fraction of Inspired Oxygen 01/19/24 22:15 01/19/24 22:16 01/19/24 22:30 Temperature 37.6 C H 37.6 C H 37.7 C H Pulse Rate 97 97 98 Respiratory Rate 19 24 H 24 H Blood Pressure 143/71 H Pulse Oximetry Oxygen Delivery Fraction of Inspired Oxygen 01/19/24 22:31 01/19/24 22:45 01/19/24 22:46 Temperature 37.7 C H 37.8 C H 37.8 C H Pulse Rate 100 97 97 Respiratory Rate 22 H 25 H 25 H Blood Pressure 146/61 H 139/72 Pulse Oximetry Oxygen Delivery Fraction of Inspired Oxygen 01/19/24 23:00 01/19/24 23:01 01/19/24 23:15 Temperature 37.8 C H 37.8 C H 37.9 C H Pulse Rate 96 95 96 Respiratory Rate 24 H 24 H 21 H Blood Pressure 129/51 L Pulse Oximetry Oxygen Delivery Fraction of Inspired Oxygen 01/19/24 23:16 01/19/24 23:30 01/19/24 23:31 Temperature 37.9 C H 38.0 C H 38.0 C H Pulse Rate 97 101 H 95 Respiratory Rate 25 H 24 H 24 H Blood Pressure 150/65 H 138/71 Pulse Oximetry Oxygen Delivery Fraction of Inspired Oxygen 01/19/24 23:45 01/19/24 23:46 01/20/24 00:00 Temperature 38.1 C H 38.1 C H 38.1 C H Pulse Rate 100 100 103 H Respiratory Rate 25 H 24 H 24 H Blood Pressure 144/60 H 177/73 H Pulse Oximetry Oxygen Delivery Fraction of Inspired Oxygen 01/20/24 00:01 01/20/24 00:15 01/20/24 00:16 Temperature 38.1 C H 38.2 C H 38.2 C H Pulse Rate 104 H 110 H 107 H Respiratory Rate 25 H 22 H 24 H Blood Pressure 188/87 H Pulse Oximetry Oxygen Delivery Fraction of Inspired Oxygen 01/20/24 00:30 01/20/24 00:31 01/20/24 00:45 Temperature 38.2 C H 38.2 C H 38.3 C H Pulse Rate 109 H 108 H 108 H Respiratory Rate 27 H 23 H 25 H Blood Pressure 161/91 H 169/73 H Pulse Oximetry Oxygen Delivery Fraction of Inspired Oxygen 01/20/24 00:46 01/20/24 01:00 01/20/24 01:01 Temperature 38.3 C H 38.3 C H 38.3 C H Pulse Rate 109 H 106 H 111 H Respiratory Rate 26 H 26 H 27 H Blood Pressure 169/71 H Pulse Oximetry 100 100 Oxygen Delivery Fraction of Inspired Oxygen 01/20/24 01:15 01/20/24 01:16 01/20/24 01:30 Temperature 38.3 C H 38.3 C H 38.4 C H Pulse Rate 111 H 111 H 113 H Respiratory Rate 26 H 25 H 25 H Blood Pressure 140/77 153/75 H Pulse Oximetry 97 97 96 Oxygen Delivery Fraction of Inspired Oxygen 01/20/24 01:31 01/20/24 02:21 01/20/24 02:22 Temperature 38.4 C H Pulse Rate 112 H 109 H 107 H Respiratory Rate 27 H 26 H Blood Pressure Pulse Oximetry 96 96 Oxygen Delivery Mechanical Ventilation Fraction of Inspired Oxygen 60 01/20/24 02:00 01/20/24 02:00 01/20/24 02:00 Temperature Pulse Rate 108 H 110 H 110 H Respiratory Rate 25 H 25 H Blood Pressure Pulse Oximetry Oxygen Delivery Fraction of Inspired Oxygen 01/20/24 01:45 01/20/24 01:46 01/20/24 02:00 Temperature 38.3 C H 38.3 C H 38.3 C H Pulse Rate 112 H 113 H 109 H Respiratory Rate 25 H 26 H 24 H Blood Pressure 150/71 H 140/71 Pulse Oximetry 96 96 95 Oxygen Delivery Fraction of Inspired Oxygen 01/20/24 02:01 01/20/24 02:15 01/20/24 02:16 Temperature 38.3 C H 38.3 C H 38.3 C H Pulse Rate 110 H 109 H 108 H Respiratory Rate 25 H 25 H 25 H Blood Pressure 129/75 Pulse Oximetry 96 96 96 Oxygen Delivery Fraction of Inspired Oxygen 01/20/24 03:34 01/20/24 03:34 01/20/24 03:35 Temperature Pulse Rate 93 93 93 Respiratory Rate 24 H 24 H 24 H Blood Pressure Pulse Oximetry Oxygen Delivery Fraction of Inspired Oxygen 01/20/24 03:35 01/20/24 02:58 01/20/24 03:45 Temperature 38.3 C H Pulse Rate 93 Respiratory Rate 24 H Blood Pressure Pulse Oximetry Oxygen Delivery Fraction of Inspired Oxygen 55 01/20/24 03:47 01/20/24 02:30 01/20/24 02:31 Temperature 38.2 C H 38.2 C H Pulse Rate 93 105 H 104 H Respiratory Rate 24 H 25 H 25 H Blood Pressure 101/61 Pulse Oximetry 98 95 95 Oxygen Delivery Mechanical Ventilation Fraction of Inspired Oxygen 55 01/20/24 02:45 01/20/24 02:46 01/20/24 03:00 Temperature 38.1 C H 38.1 C H 38.0 C H Pulse Rate 104 H 102 H 98 Respiratory Rate 24 H 24 H 24 H Blood Pressure 102/48 L 100/51 L Pulse Oximetry 95 95 95 Oxygen Delivery Fraction of Inspired Oxygen 01/20/24 03:01 01/20/24 03:15 01/20/24 03:16 Temperature 38.0 C H 37.9 C H 37.9 C H Pulse Rate 97 95 94 Respiratory Rate 24 H 24 H 24 H Blood Pressure 101/50 L Pulse Oximetry 95 95 95 Oxygen Delivery Fraction of Inspired Oxygen 01/20/24 03:30 01/20/24 03:31 01/20/24 03:45 Temperature 37.9 C H 37.9 C H 37.8 C H Pulse Rate 93 94 93 Respiratory Rate 24 H 24 H 24 H Blood Pressure 105/51 L 108/56 L Pulse Oximetry 95 96 98 Oxygen Delivery Fraction of Inspired Oxygen 01/20/24 03:46 01/20/24 04:00 01/20/24 04:01 Temperature 37.8 C H Pulse Rate 93 94 100 Respiratory Rate 24 H Blood Pressure Pulse Oximetry 98 Oxygen Delivery Fraction of Inspired Oxygen 01/20/24 04:00 01/20/24 04:01 01/20/24 04:15 Temperature 37.8 C H 37.8 C H 37.7 C H Pulse Rate 93 93 96 Respiratory Rate 25 H 24 H 25 H Blood Pressure 118/60 123/71 Pulse Oximetry 100 100 100 Oxygen Delivery Fraction of Inspired Oxygen 01/20/24 04:16 01/20/24 04:30 01/20/24 04:31 Temperature 37.7 C H 37.7 C H 37.7 C H Pulse Rate 96 97 96 Respiratory Rate 24 H 24 H 24 H Blood Pressure 129/67 Pulse Oximetry 100 100 100 Oxygen Delivery Fraction of Inspired Oxygen 01/20/24 04:45 01/20/24 05:22 01/20/24 04:46 Temperature 37.7 C H 37.7 C H Pulse Rate 98 97 96 Respiratory Rate 24 H 24 H Blood Pressure 123/64 Pulse Oximetry 100 100 100 Oxygen Delivery Mechanical Ventilation Fraction of Inspired Oxygen 60 01/20/24 05:00 01/20/24 05:01 01/20/24 05:15 Temperature 37.7 C H 37.7 C H 37.8 C H Pulse Rate 98 97 98 Respiratory Rate 24 H 24 H 24 H Blood Pressure 134/64 144/70 H Pulse Oximetry 100 100 100 Oxygen Delivery Fraction of Inspired Oxygen 01/20/24 05:16 01/20/24 05:30 01/20/24 05:31 Temperature 37.8 C H 37.8 C H 37.8 C H Pulse Rate 97 98 98 Respiratory Rate 24 H 24 H 24 H Blood Pressure 121/67 Pulse Oximetry 100 Oxygen Delivery Fraction of Inspired Oxygen 01/20/24 05:45 01/20/24 05:46 01/20/24 06:00 Temperature 37.8 C H 37.8 C H Pulse Rate 99 97 96 Respiratory Rate 24 H 24 H 24 H Blood Pressure 114/65 Pulse Oximetry Oxygen Delivery Fraction of Inspired Oxygen 01/20/24 06:00 01/20/24 06:34 01/20/24 06:34 Temperature Pulse Rate 96 96 Respiratory Rate 24 H Blood Pressure Pulse Oximetry Oxygen Delivery Fraction of Inspired Oxygen 50 01/20/24 06:00 01/20/24 06:01 01/20/24 06:15 Temperature 37.8 C H 37.8 C H 37.8 C H Pulse Rate 97 96 98 Respiratory Rate 24 H 24 H 24 H Blood Pressure 121/59 L 105/68 Pulse Oximetry Oxygen Delivery Fraction of Inspired Oxygen 01/20/24 06:16 01/20/24 06:30 01/20/24 06:31 Temperature 37.8 C H 37.8 C H 37.8 C H Pulse Rate 97 97 98 Respiratory Rate 24 H 24 H 24 H Blood Pressure 119/77 Pulse Oximetry Oxygen Delivery Fraction of Inspired Oxygen 01/20/24 06:30 01/20/24 06:30 01/20/24 08:02 Temperature Pulse Rate 97 97 100 Respiratory Rate 24 H 24 H Blood Pressure Pulse Oximetry 100 Oxygen Delivery Mechanical Ventilation Fraction of Inspired Oxygen 50 01/20/24 08:02 01/20/24 08:00 01/20/24 08:07 Temperature Pulse Rate 100 102 H Respiratory Rate 24 H 24 H Blood Pressure Pulse Oximetry Oxygen Delivery Fraction of Inspired Oxygen 50 01/20/24 08:07 01/20/24 08:00 01/20/24 08:00 Temperature 37.8 C H Pulse Rate 102 H 102 H 100 Respiratory Rate 24 H 24 H 24 H Blood Pressure 131/65 Pulse Oximetry 100 100 Oxygen Delivery Mechanical Ventilation Fraction of Inspired Oxygen 50 01/20/24 08:34 01/20/24 08:00 01/20/24 10:00 Temperature Pulse Rate 95 102 H 97 Respiratory Rate 24 H Blood Pressure Pulse Oximetry Oxygen Delivery Fraction of Inspired Oxygen 01/20/24 10:00 Temperature 37.9 C H Pulse Rate 99 Respiratory Rate 24 H Blood Pressure 127/59 L Pulse Oximetry 100 Oxygen Delivery Fraction of Inspired Oxygen Intake/Output Intake/Output: Intake & Output 01/17/24 01/18/24 01/19/24 01/20/24 23:59 23:59 23:59 23:59 Intake Total 3639.6 4417.7 2621.3 626.7 Output Total 300 500 550 500 Balance 3339.6 3917.7 2071.3 126.7 Meds/Results Medications: Active Medications Generic Name Dose Route Start Last Admin Trade Name Freq PRN Reason Stop Dose Admin Acetaminophen 650 mg 01/15/24 20:11 01/20/24 01:58 Acetaminophen 325 Mg Tablet PO 650 mg Q4H PRN Administration Mild Pain (1-3) or Fever Albuterol/Ipratropium 3 ml 01/16/24 02:00 01/20/24 08:00 Ipratropium 0.5 Mg/Albuterol Sulfate 2.5 Mg Ampul.Neb 3 Ml INHALATION 3 ml Q6HRT GELA Administration Amlodipine Besylate 5 mg 01/16/24 09:00 01/20/24 08:06 Amlodipine Besylate 5 Mg Tablet FEED TUBE 5 mg DAILY GELA Administration Dextrose 12.5 gm 01/19/24 02:06 Dextrose 50% 25 Gm/50 Ml Syringe IV PUSH PRN PRN Hypoglycemia Protocol Diazepam 20 mg 01/16/24 00:35 01/18/24 22:30 Diazepam (*Crx) 10 Mg Tablet PO Not Given HS GELA Enoxaparin Sodium 40 mg 01/17/24 09:00 01/20/24 08:06 Enoxaparin 40 Mg/0.4 Ml Syringe SUB-Q 40 mg DAILY GELA Administration Finasteride 5 mg 01/16/24 09:00 01/20/24 08:06 Finasteride 5 Mg Tablet FEED TUBE 5 mg DAILY GELA Administration Glucagon 1 mg 01/19/24 02:06 Glucagon For Inj 1 Mg Vial IM PRN PRN Hypoglycemia Protocol Glucose 15 gm 01/19/24 02:06 Glucose Oral Gel 15 Gm Of Glucse In 37.5 Gm Tube PO PRN PRN Hypoglycemia Protocol Fentanyl Citrate 2,500 mcg in 250 mls @ 5 mls/hr 01/18/24 21:50 01/20/24 08:07 Fentanyl 2,500 Mcg/Ns 250 Ml IV CONT 50 mcg/hr .Q50H GELA 5 mls/hr Titration Protocol 50 MCG/HR Midazolam HCl 100 mg in 100 mls @ 1 mls/hr 01/18/24 21:50 01/20/24 08:07 Versed 100 Mg/Ns 100 Ml IV CONT 1 mg/hr .Q72H GELA 1 mls/hr Titration Protocol 1 MG/HR Cefepime HCl 2 gm in 50 mls @ 100 mls/hr 01/19/24 01:00 01/20/24 06:06 Maxipime 2 Gm/Ns 50 Ml IVPB 100 mls/hr Q8HR GELA Administration Metronidazole 500 mg in 100 mls @ 100 mls/hr 01/19/24 00:00 01/20/24 06:11 Flagyl 500 Mg/Iso Soln 100 Ml IVPB 100 mls/hr Q6HR GELA Administration Dextrose 1,000 mls @ 100 mls/hr 01/19/24 02:06 Dextrose 5% 1,000 Ml IVPB PRN PRN Hypoglycemia Protocol Dextrose 1,000 mls @ 50 mls/hr 01/19/24 12:00 Dextrose 10% IV CONT .Q20H PRN if PN is interrupted Multivitamins 2.5 ml/ 2,005 mls @ 40 mls/hr 01/19/24 11:30 01/20/24 02:00 Multivitamins 2.5 ml/ Amino IV CONT 40 mls/hr Acids/Dextrose .Q24H GELA Infusion Protocol Fat Emulsion Intravenous 250 mls @ 20.833 mls/hr 01/19/24 12:00 01/20/24 03:43 Lipids 20% IVPB Infused Q24H GELA Infusion Insulin Aspart 3 - 6 units 01/19/24 06:00 01/20/24 06:00 Insulin Aspart (*Bkc) 100 Units/Ml SUB-Q Not Given Q6HR [facility] Protocol Metoclopramide HCl 5 mg 01/18/24 18:00 01/20/24 06:13 Metoclopramide Hcl Inj 10 Mg/2 Ml Vial IV PUSH 5 mg Q6HR GELA Administration Miconazole Nitrate 1 applic 01/16/24 09:00 01/20/24 08:08 Miconazole Nitrate 2% Cream 30 Gm Tube TOPICAL 1 applic Q12H GELA Administration Multi-Ingred Cream/Lotion/Oil/Oint 1 applic 01/19/24 09:00 01/20/24 08:06 Mineral Oil/White Petrolatum Ointment EACH EYE 1 applic Q12HR GELA Administration Pantoprazole Sodium 40 mg 01/19/24 09:00 01/20/24 08:06 Pantoprazole Sodium Iv 40 Mg Vial IV PUSH 40 mg Q12HR GELA Administration Sodium Chloride 20 ml 01/19/24 09:47 Central Line Flush IV PUSH PRN PRN after blood draws Sodium Chloride 10 ml 01/19/24 09:47 Central Line Flush IV PUSH PRN PRN with TPN bag changes Sodium Chloride 10 ml 01/19/24 14:00 01/20/24 06:12 Central Line Flush IV PUSH 10 ml Q8HR GELA Administration Radiology Results: ITS Impressions High Resolution CT 01/15/24 17:39 IMPRESSION: 1. Extensive tree-in-bud opacities in the dependent aspect of both lungs with more dense consolidation in the dependent aspect of the bilateral lower lobes consistent with pneumonia. This may be due to aspiration given the distribution of the presence of likely aspirated barium in the bilateral lower lobes. Chest CTA 01/15/24 19:40 IMPRESSION: 1. No pulmonary collision. 2. Extensive tree-in-bud opacities in the bilateral lower lungs with more dense consolidation in the dependent bilateral lower lobes consistent with pneumonia. Significant progression of mucus plugging throughout the lower lobar bronchi. 3. A few high attenuation material in the basilar lower lobes, left greater than right right which is suspicious for aspirated barium. Upper GI Series 01/17/24 15:50 IMPRESSION: 1. Percutaneous gastrostomy tube bulb in the distal body the stomach with normal small bowel follow-through. 2. Persistent opacities in the right mid to lower and left lower lung zones suspicious for pneumonia with some increased density at the lung bases suspicious for aspirated barium. Abdomen X-Ray 01/19/24 06:30 IMPRESSION: 1. Nasogastric tube tip in the stomach. Chest X-Ray 01/20/24 06:16 Impression: Patchy bilateral pneumonia, as above. Underlying COPD. Support tubes, as above. Labs Labs: Laboratory Results - last 24 hr 01/19/24 01/19/24 01/19/24 12:07 12:08 17:13 WBC 10.6 H RBC 3.32 L Hgb 10.6 L Hct 35.8 L MCV 107.8 H MCH 31.9 MCHC 29.6 L RDW 14.0 Plt Count 195 MPV 12.5 H Immature Gran % (Auto) 0.5 Neut % (Auto) 94.4 H Lymph % (Auto) 2.3 L [place] % (Auto) 2.6 Eos % (Auto) 0.0 Baso % (Auto) 0.2 Lymph # (Auto) 0.25 L [place] # (Auto) 0.3 Eos # (Auto) 0.0 Baso # (Auto) 0.0 Abs Immat Gran (auto) 0.05 H Absolute Neuts (auto) 10.0 H Absolute Nucleated RBC 0.000 Nucleated RBC % 0.0 Platelet Estimate Adequate Large Platelets Hypochromasia 1+ Anisocytosis 1+ Macrocytosis 1+ Ovalocytes 1+ Schistocytes None seen PT INR APTT 42.2 H Puncture Site ABG pH ABG pCO2 ABG pO2 ABG PO2/FiO2 Ratio ABG HCO3 ABG O2 Saturation ABG O2 Content ABG Base Excess A-a Gradient Oxyhemoglobin Carboxyhemoglobin Methemoglobin Reduced Hemoglobin Total Hemoglobin O2 Delivery Device O2 Liters/Min Minute Volume Vent Rate Vent Mode FiO2 Tidal Volume PEEP Peak Inspir Pressure Pressure Support Sodium 149 H Potassium 3.6 Chloride 112 H Carbon Dioxide 35 H Anion Gap 2 L BUN 39 H Creatinine 0.80 Estim Creat Clear Calc 77 Estimated GFR > 60 Glucose 151 H POC Capillary Glucose 144 H 180 H Calcium 8.4 Phosphorus Magnesium 2.1 Transferrin 97 L Total Bilirubin 0.4 AST 16 L ALT 14 Alkaline Phosphatase 70 Total Protein 6.0 L Albumin 2.7 L Triglycerides Urine Color Urine Appearance Urine pH Ur Specific [place] Urine Protein Urine Glucose (UA) Urine Ketones Ur Blood (Man) Urine Nitrate Urine Bilirubin Urine Urobilinogen Add Ur Microanalysis Leukocyte Esterase Rfl Urine RBC Urine WBC Ur Squamous Epith Cells Urine Bacteria Urine Casts Granular Casts 01/20/24 01/20/24 01/20/24 00:26 04:16 05:15 WBC 6.4 RBC 2.95 L Hgb 9.5 L Hct 32.0 L MCV 108.5 H MCH 32.2 MCHC 29.7 L RDW 14.2 Plt Count 152 MPV 12.7 H Immature Gran % (Auto) 0.6 H Neut % (Auto) 90.3 H Lymph % (Auto) 4.4 L [place] % (Auto) 4.3 Eos % (Auto) 0.2 Baso % (Auto) 0.2 Lymph # (Auto) 0.28 L [place] # (Auto) 0.3 Eos # (Auto) 0.0 Baso # (Auto) 0.0 Abs Immat Gran (auto) 0.04 H Absolute Neuts (auto) 5.7 Absolute Nucleated RBC 0.000 Nucleated RBC % 0.0 Platelet Estimate Slightly decreased Large Platelets Present Hypochromasia 1+ Anisocytosis 1+ Macrocytosis 1+ Ovalocytes Schistocytes None seen PT 15.0 H INR 1.2 APTT 44.7 H Puncture Site Right radial ABG pH 7.237 L* ABG pCO2 66.6 H* ABG pO2 87.8 ABG PO2/FiO2 Ratio 1.76 ABG HCO3 27.7 H ABG O2 Saturation 94.8 L ABG O2 Content 16.9 ABG Base Excess -1.0 A-a Gradient 193.8 Oxyhemoglobin 96.6 Carboxyhemoglobin 0.5 Methemoglobin 0.3 Reduced Hemoglobin 2.6 Total Hemoglobin 12.4 O2 Delivery Device Ventilator O2 Liters/Min Not Reportable Minute Volume Not Reportable Vent Rate 24 Vent Mode Cmv FiO2 50 Tidal Volume 450 PEEP 10 Peak Inspir Pressure Not Reportable Pressure Support Not Reportable Sodium 147 H Potassium 3.7 Chloride 112 H Carbon Dioxide 33 H Anion Gap 2 L BUN 43 H Creatinine 1.10 Estim Creat Clear Calc 57 Estimated GFR > 60 Glucose 145 H POC Capillary Glucose 141 H Calcium 8.3 L Phosphorus 2.9 Magnesium 2.1 Transferrin 85 L Total Bilirubin 0.3 AST 13 L ALT 11 Alkaline Phosphatase 65 Total Protein 6.0 L Albumin 2.5 L Triglycerides 52 Urine Color Urine Appearance Urine pH Ur Specific [facility] Urine Protein Urine Glucose (UA) Urine Ketones Ur Blood (Man) Urine Nitrate Urine Bilirubin Urine Urobilinogen Add Ur Microanalysis Leukocyte Esterase Rfl Urine RBC Urine WBC Ur Squamous Epith Cells Urine Bacteria Urine Casts Granular Casts 01/20/24 08:44 WBC RBC Hgb Hct MCV MCH MCHC RDW Plt Count MPV Immature Gran % (Auto) Neut % (Auto) Lymph % (Auto) [place] % (Auto) Eos % (Auto) Baso % (Auto) Lymph # (Auto) [place] # (Auto) Eos # (Auto) Baso # (Auto) Abs Immat Gran (auto) Absolute Neuts (auto) Absolute Nucleated RBC Nucleated RBC % Platelet Estimate Large Platelets Hypochromasia Anisocytosis Macrocytosis Ovalocytes Schistocytes PT INR APTT Puncture Site ABG pH ABG pCO2 ABG pO2 ABG PO2/FiO2 Ratio ABG HCO3 ABG O2 Saturation ABG O2 Content ABG Base Excess A-a Gradient Oxyhemoglobin Carboxyhemoglobin Methemoglobin Reduced Hemoglobin Total Hemoglobin O2 Delivery Device O2 Liters/Min Minute Volume Vent Rate Vent Mode FiO2 Tidal Volume PEEP Peak Inspir Pressure Pressure Support Sodium Potassium Chloride Carbon Dioxide Anion Gap BUN Creatinine Estim Creat Clear Calc Estimated GFR Glucose POC Capillary Glucose Calcium Phosphorus Magnesium Transferrin Total Bilirubin AST ALT Alkaline Phosphatase Total Protein Albumin Triglycerides Urine Color Yellow Urine Appearance Cloudy H Urine pH 5.5 Ur Specific [facility] [place] 1.021 Urine Protein 2+ H Urine Glucose (UA) Negative Urine Ketones Negative Ur Blood (Man) Non-hemolyzed trace Urine Nitrate Negative Urine Bilirubin Negative Urine Urobilinogen 0.2 Add Ur Microanalysis Reviewed Leukocyte Esterase Rfl Trace H Urine RBC 6-10 H Urine WBC 11-20 H Ur Squamous Epith Cells Many H Urine Bacteria None seen Urine Casts >20 Granular Casts Present Quality VTE Prophylaxis VTE prophylaxis: pharmacologic ordered (Lovenox 40 mg subQ daily.)
--- NOTE | 2024-01-20 10:19 | PCFNICU ---
ICU Rounding Note: Pt current nutrition is TPN: Clinmix E 07/02 @ 40 ml/h: 1182 kcal, 46 g protein, 1210 ml total volume. Tube feeding Jevity 1.5 at 20 ml/h with goal of 40 ml/h. Nutrition recommendation: Discontinue TPN when tube feeding is advanced to goal rate 40 ml/h. May want to try Vital 1.2 if intolerance issues persist. Last recorded weight is 71.7 kg. Bowel Motility: No BMs recorded yet Labs Reviewed: Hgb 9.5, Hct 32, Alb 2.5, Na 147, BUN 43 Meds Noted: Flagyl, cefepime, protonix, fentanyl, versed Skin: No pressure injuries Additional Notes: Nutrition with PEG tube. is recommending a J-tube related to persistent aspiration pneumonia. Pt may be transferred for this procedure. Continue to monitor Following daily in ICU rounds. Will monitor weight, labs, skin, diet orders, meds every 3 days. .
--- NOTE | 2024-01-20 11:16 | P.PNPL_ITS ---
Subjective Date/time seen: 01/20/24 11:16 Interval history: 01/19; now in ICU; intubated over the weekend. is at the bedside. 01/16; hosp follow up: Haylee is at the bedside. Patient used the vibratory vest today, was too tired last night. He vomited again overnight. O2 requirement is now high flow 70% and 45 L/min. Sat is 96%.He has LUQ discomfort for the last week. Na+ 147, increasing due to volume loss. He did this last admission. Defer fluids to hospitalist. WBC is a little higher, 11.2. 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 He was at [facility] after being in-patient Dec 28 -; was intubated Dec 28, re-intubated Jan 01, liberated Jan 04, discharged Jan 12. He was treated for severe sepsis and shock on pressors, hypernatremia, discharged on 2 L/min, sepsis was related to aspiration pneumonia. He was at [facility] Jan 12 through , had low O2 saturation on the monitor with increasing O2 need. Rehab staff transferred him to the ER, coughed extremely forcefully, vomited then aspirated barium into his lung bases, desaturated. The chest CTA confirms distribution of barium in the lower lobes, L>R, Jan 14. He has been treated with chest physiotherapy, O2, nebulized bronchodilators. He is on empiric antibiotics, Zosyn and doxycycline. DATA * 01/15/2024, pH 7.51, pCO2 37 pO2 128, saturation 98% on 100% non-rebreather * 01/15/24; UA : turbid urine, budding yeast, no RBC or WBC white blood cell count 10.3, hemoglobin 11.9, hematocrit 38.1, platelet [id number] * 01/15/24 CTA FINDINGS: No pulmonary embolism. Again seen are extensive tree-in-bud opacities in the dependent lungs with more dense consolidation the bilateral lower lobes consistent with pneumonia. There is increasing mucous now filling the bilateral lower lobar bronchi. Again seen is high attenuation material within the basilar aspect of the bilateral lower lobes, left and right suspicious for aspirated barium. No pleural effusion. Heart size is normal. Atherosclerotic coronary artery calcification is. No pericardial effusion. Thoracic aorta is normal in caliber with no dissection. No pathologically enlarged thoracic lymphadenopathy. Small region of cortical scarring with dystrophic calcific lesion at the upper pole the left kidney. Mild upper thoracic levocurvature with mild spondylosis. IMPRESSION: 1. No pulmonary collision. 2. Extensive tree-in-bud opacities in the bilateral lower lungs with more dense consolidation in the dependent bilateral lower lobes consistent with pneumonia. Significant progression of mucus plugging throughout the lower lobar bronchi. 3. A few high attenuation material in the basilar lower lobes, left greater than right right which is suspicious for aspirated barium. Objective Data Vital Signs Vital Signs: Vital Signs - 24 hr 01/19/24 13:48 01/19/24 13:50 01/19/24 13:56 Temperature Pulse Rate 100 100 99 Respiratory Rate 21 H 26 H Blood Pressure Pulse Oximetry 97 Oxygen Delivery Mechanical Ventilation Fraction of Inspired Oxygen 60 01/19/24 12:00 01/19/24 12:00 01/19/24 12:00 Temperature 37.6 C Pulse Rate 103 H 103 H Respiratory Rate 23 H 23 H Blood Pressure 113/74 Pulse Oximetry 94 Oxygen Delivery Fraction of Inspired Oxygen 60 01/19/24 14:00 01/19/24 12:00 01/19/24 14:00 Temperature Pulse Rate 99 103 H 99 Respiratory Rate 27 H 23 H 27 H Blood Pressure Pulse Oximetry Oxygen Delivery Fraction of Inspired Oxygen 01/19/24 15:05 01/19/24 12:00 01/19/24 14:00 Temperature Pulse Rate 103 H 106 H 99 Respiratory Rate 27 H Blood Pressure Pulse Oximetry Oxygen Delivery Fraction of Inspired Oxygen 01/19/24 14:00 01/19/24 16:08 01/19/24 16:00 Temperature 37.8 C H 38.3 C H Pulse Rate 99 105 H Respiratory Rate 27 H 25 H Blood Pressure 105/51 L Pulse Oximetry 97 Oxygen Delivery Fraction of Inspired Oxygen 01/19/24 16:00 01/19/24 16:00 01/19/24 17:02 Temperature Pulse Rate 105 H 104 H 101 H Respiratory Rate 25 H Blood Pressure Pulse Oximetry 96 Oxygen Delivery Mechanical Ventilation Fraction of Inspired Oxygen 60 01/19/24 16:00 01/19/24 16:00 01/19/24 18:00 Temperature 38.2 C H Pulse Rate 105 H 99 Respiratory Rate 25 H 26 H Blood Pressure 150/72 H Pulse Oximetry 99 Oxygen Delivery Fraction of Inspired Oxygen 60 01/19/24 18:00 01/19/24 18:00 01/19/24 18:00 Temperature 37.6 C H Pulse Rate 99 99 99 Respiratory Rate 26 H 26 H Blood Pressure 137/56 L Pulse Oximetry 96 Oxygen Delivery Fraction of Inspired Oxygen 01/19/24 20:00 01/19/24 20:00 01/19/24 20:00 Temperature Pulse Rate 100 100 Respiratory Rate 24 H Blood Pressure Pulse Oximetry 100 Oxygen Delivery Mechanical Ventilation Fraction of Inspired Oxygen 60 60 01/19/24 20:00 01/19/24 19:00 01/19/24 19:00 Temperature 37.2 C Pulse Rate 100 98 98 Respiratory Rate 24 H 25 H 25 H Blood Pressure 162/66 H Pulse Oximetry 100 Oxygen Delivery Fraction of Inspired Oxygen 01/19/24 20:00 01/19/24 20:00 01/19/24 21:00 Temperature Pulse Rate 100 100 99 Respiratory Rate 24 H 24 H 25 H Blood Pressure Pulse Oximetry Oxygen Delivery Fraction of Inspired Oxygen 01/19/24 21:00 01/19/24 21:00 01/19/24 21:05 Temperature Pulse Rate 99 99 96 Respiratory Rate 25 H 27 H Blood Pressure Pulse Oximetry 98 Oxygen Delivery Mechanical Ventilation Fraction of Inspired Oxygen 60 01/19/24 19:00 01/19/24 19:01 01/19/24 19:15 Temperature 37.3 C 37.3 C 37.2 C Pulse Rate 98 97 96 Respiratory Rate 23 H 24 H 25 H Blood Pressure 151/63 H Pulse Oximetry 96 96 98 Oxygen Delivery Fraction of Inspired Oxygen 01/19/24 19:30 01/19/24 19:45 01/19/24 20:00 Temperature 37.2 C 37.2 C 37.2 C Pulse Rate 98 98 99 Respiratory Rate 23 H 25 H 24 H Blood Pressure 162/66 H Pulse Oximetry 99 100 100 Oxygen Delivery Fraction of Inspired Oxygen 01/19/24 20:01 01/19/24 20:15 01/19/24 20:30 Temperature 37.2 C 37.2 C 37.3 C Pulse Rate 100 100 100 Respiratory Rate 25 H 24 H 26 H Blood Pressure Pulse Oximetry 100 100 100 Oxygen Delivery Fraction of Inspired Oxygen 01/19/24 20:40 01/19/24 20:45 01/19/24 20:46 Temperature 37.3 C 37.3 C 37.3 C Pulse Rate 101 H 101 H 100 Respiratory Rate 28 H 25 H 25 H Blood Pressure 154/66 H 154/66 H Pulse Oximetry 100 100 100 Oxygen Delivery Fraction of Inspired Oxygen 01/19/24 21:00 01/19/24 21:01 01/19/24 21:15 Temperature 37.3 C 37.3 C 37.3 C Pulse Rate 102 H 100 100 Respiratory Rate 24 H 24 H 25 H Blood Pressure 157/66 H 155/69 H Pulse Oximetry 100 100 Oxygen Delivery Fraction of Inspired Oxygen 01/19/24 21:16 01/19/24 22:00 01/19/24 22:00 Temperature 37.3 C Pulse Rate 99 98 97 Respiratory Rate 24 H 25 H Blood Pressure 148/64 H Pulse Oximetry 100 Oxygen Delivery Fraction of Inspired Oxygen 01/19/24 22:00 01/19/24 22:00 01/19/24 23:26 Temperature Pulse Rate 97 97 100 Respiratory Rate 25 H 25 H Blood Pressure Pulse Oximetry 98 Oxygen Delivery Mechanical Ventilation Fraction of Inspired Oxygen 60 01/20/24 00:00 01/20/24 00:45 01/20/24 00:45 Temperature Pulse Rate 104 H 108 H Respiratory Rate 25 H Blood Pressure Pulse Oximetry Oxygen Delivery Mechanical Ventilation Fraction of Inspired Oxygen 55 55 01/19/24 23:00 01/19/24 23:00 01/20/24 00:00 Temperature Pulse Rate 96 96 103 H Respiratory Rate 25 H 25 H 24 H Blood Pressure Pulse Oximetry Oxygen Delivery Fraction of Inspired Oxygen 01/20/24 00:00 01/20/24 00:45 01/20/24 00:45 Temperature Pulse Rate 103 H 108 H 108 H Respiratory Rate 24 H 25 H 25 H Blood Pressure Pulse Oximetry Oxygen Delivery Fraction of Inspired Oxygen 01/20/24 01:00 01/20/24 01:00 01/20/24 01:15 Temperature Pulse Rate 110 H 110 H 110 H Respiratory Rate 27 H 27 H 25 H Blood Pressure Pulse Oximetry Oxygen Delivery Fraction of Inspired Oxygen 01/20/24 01:15 01/20/24 01:30 01/20/24 01:30 Temperature Pulse Rate 110 H 112 H 112 H Respiratory Rate 25 H 27 H 27 H Blood Pressure Pulse Oximetry Oxygen Delivery Fraction of Inspired Oxygen 01/20/24 01:58 01/19/24 21:30 01/19/24 21:31 Temperature 38.3 C H 37.3 C 37.3 C Pulse Rate 98 98 Respiratory Rate 27 H 22 H Blood Pressure 153/55 H Pulse Oximetry Oxygen Delivery Fraction of Inspired Oxygen 01/19/24 21:45 01/19/24 21:46 01/19/24 22:00 Temperature 37.4 C 37.4 C 37.5 C Pulse Rate 96 94 95 Respiratory Rate 24 H 24 H 24 H Blood Pressure 138/60 148/64 H Pulse Oximetry Oxygen Delivery Fraction of Inspired Oxygen 01/19/24 22:01 01/19/24 22:15 01/19/24 22:16 Temperature 37.5 C 37.6 C H 37.6 C H Pulse Rate 95 97 97 Respiratory Rate 24 H 19 24 H Blood Pressure 143/71 H Pulse Oximetry Oxygen Delivery Fraction of Inspired Oxygen 01/19/24 22:30 01/19/24 22:31 01/19/24 22:45 Temperature 37.7 C H 37.7 C H 37.8 C H Pulse Rate 98 100 97 Respiratory Rate 24 H 22 H 25 H Blood Pressure 146/61 H 139/72 Pulse Oximetry Oxygen Delivery Fraction of Inspired Oxygen 01/19/24 22:46 01/19/24 23:00 01/19/24 23:01 Temperature 37.8 C H 37.8 C H 37.8 C H Pulse Rate 97 96 95 Respiratory Rate 25 H 24 H 24 H Blood Pressure 129/51 L Pulse Oximetry Oxygen Delivery Fraction of Inspired Oxygen 01/19/24 23:15 01/19/24 23:16 01/19/24 23:30 Temperature 37.9 C H 37.9 C H 38.0 C H Pulse Rate 96 97 101 H Respiratory Rate 21 H 25 H 24 H Blood Pressure 150/65 H 138/71 Pulse Oximetry Oxygen Delivery Fraction of Inspired Oxygen 01/19/24 23:31 01/19/24 23:45 01/19/24 23:46 Temperature 38.0 C H 38.1 C H 38.1 C H Pulse Rate 95 100 100 Respiratory Rate 24 H 25 H 24 H Blood Pressure 144/60 H Pulse Oximetry Oxygen Delivery Fraction of Inspired Oxygen 01/20/24 00:00 01/20/24 00:01 01/20/24 00:15 Temperature 38.1 C H 38.1 C H 38.2 C H Pulse Rate 103 H 104 H 110 H Respiratory Rate 24 H 25 H 22 H Blood Pressure 177/73 H 188/87 H Pulse Oximetry Oxygen Delivery Fraction of Inspired Oxygen 01/20/24 00:16 01/20/24 00:30 01/20/24 00:31 Temperature 38.2 C H 38.2 C H 38.2 C H Pulse Rate 107 H 109 H 108 H Respiratory Rate 24 H 27 H 23 H Blood Pressure 161/91 H Pulse Oximetry Oxygen Delivery Fraction of Inspired Oxygen 01/20/24 00:45 01/20/24 00:46 01/20/24 01:00 Temperature 38.3 C H 38.3 C H 38.3 C H Pulse Rate 108 H 109 H 106 H Respiratory Rate 25 H 26 H 26 H Blood Pressure 169/73 H 169/71 H Pulse Oximetry 100 Oxygen Delivery Fraction of Inspired Oxygen 01/20/24 01:01 01/20/24 01:15 01/20/24 01:16 Temperature 38.3 C H 38.3 C H 38.3 C H Pulse Rate 111 H 111 H 111 H Respiratory Rate 27 H 26 H 25 H Blood Pressure 140/77 Pulse Oximetry 100 97 97 Oxygen Delivery Fraction of Inspired Oxygen 01/20/24 01:30 01/20/24 01:31 01/20/24 02:21 Temperature 38.4 C H 38.4 C H Pulse Rate 113 H 112 H 109 H Respiratory Rate 25 H 27 H 26 H Blood Pressure 153/75 H Pulse Oximetry 96 96 Oxygen Delivery Fraction of Inspired Oxygen 01/20/24 02:22 01/20/24 02:00 01/20/24 02:00 Temperature Pulse Rate 107 H 108 H 110 H Respiratory Rate 25 H Blood Pressure Pulse Oximetry 96 Oxygen Delivery Mechanical Ventilation Fraction of Inspired Oxygen 60 01/20/24 02:00 01/20/24 01:45 01/20/24 01:46 Temperature 38.3 C H 38.3 C H Pulse Rate 110 H 112 H 113 H Respiratory Rate 25 H 25 H 26 H Blood Pressure 150/71 H Pulse Oximetry 96 96 Oxygen Delivery Fraction of Inspired Oxygen 01/20/24 02:00 01/20/24 02:01 01/20/24 02:15 Temperature 38.3 C H 38.3 C H 38.3 C H Pulse Rate 109 H 110 H 109 H Respiratory Rate 24 H 25 H 25 H Blood Pressure 140/71 129/75 Pulse Oximetry 95 96 96 Oxygen Delivery Fraction of Inspired Oxygen 01/20/24 02:16 01/20/24 03:34 01/20/24 03:34 Temperature 38.3 C H Pulse Rate 108 H 93 93 Respiratory Rate 25 H 24 H 24 H Blood Pressure Pulse Oximetry 96 Oxygen Delivery Fraction of Inspired Oxygen 01/20/24 03:35 01/20/24 03:35 01/20/24 02:58 Temperature 38.3 C H Pulse Rate 93 93 Respiratory Rate 24 H 24 H Blood Pressure Pulse Oximetry Oxygen Delivery Fraction of Inspired Oxygen 01/20/24 03:45 01/20/24 03:47 01/20/24 02:30 Temperature 38.2 C H Pulse Rate 93 105 H Respiratory Rate 24 H 25 H Blood Pressure 101/61 Pulse Oximetry 98 95 Oxygen Delivery Mechanical Ventilation Fraction of Inspired Oxygen 55 55 01/20/24 02:31 01/20/24 02:45 01/20/24 02:46 Temperature 38.2 C H 38.1 C H 38.1 C H Pulse Rate 104 H 104 H 102 H Respiratory Rate 25 H 24 H 24 H Blood Pressure 102/48 L Pulse Oximetry 95 95 95 Oxygen Delivery Fraction of Inspired Oxygen 01/20/24 03:00 01/20/24 03:01 01/20/24 03:15 Temperature 38.0 C H 38.0 C H 37.9 C H Pulse Rate 98 97 95 Respiratory Rate 24 H 24 H 24 H Blood Pressure 100/51 L 101/50 L Pulse Oximetry 95 95 95 Oxygen Delivery Fraction of Inspired Oxygen 01/20/24 03:16 01/20/24 03:30 01/20/24 03:31 Temperature 37.9 C H 37.9 C H 37.9 C H Pulse Rate 94 93 94 Respiratory Rate 24 H 24 H 24 H Blood Pressure 105/51 L Pulse Oximetry 95 95 96 Oxygen Delivery Fraction of Inspired Oxygen 01/20/24 03:45 01/20/24 03:46 01/20/24 04:00 Temperature 37.8 C H 37.8 C H Pulse Rate 93 93 94 Respiratory Rate 24 H 24 H Blood Pressure 108/56 L Pulse Oximetry 98 98 Oxygen Delivery Fraction of Inspired Oxygen 01/20/24 04:01 01/20/24 04:00 01/20/24 04:01 Temperature 37.8 C H 37.8 C H Pulse Rate 100 93 93 Respiratory Rate 25 H 24 H Blood Pressure 118/60 Pulse Oximetry 100 100 Oxygen Delivery Fraction of Inspired Oxygen 01/20/24 04:15 01/20/24 04:16 01/20/24 04:30 Temperature 37.7 C H 37.7 C H 37.7 C H Pulse Rate 96 96 97 Respiratory Rate 25 H 24 H 24 H Blood Pressure 123/71 129/67 Pulse Oximetry 100 100 100 Oxygen Delivery Fraction of Inspired Oxygen 01/20/24 04:31 01/20/24 04:45 01/20/24 05:22 Temperature 37.7 C H 37.7 C H Pulse Rate 96 98 97 Respiratory Rate 24 H 24 H Blood Pressure 123/64 Pulse Oximetry 100 100 100 Oxygen Delivery Mechanical Ventilation Fraction of Inspired Oxygen 60 01/20/24 04:46 01/20/24 05:00 01/20/24 05:01 Temperature 37.7 C H 37.7 C H 37.7 C H Pulse Rate 96 98 97 Respiratory Rate 24 H 24 H 24 H Blood Pressure 134/64 Pulse Oximetry 100 100 100 Oxygen Delivery Fraction of Inspired Oxygen 01/20/24 05:15 01/20/24 05:16 01/20/24 05:30 Temperature 37.8 C H 37.8 C H 37.8 C H Pulse Rate 98 97 98 Respiratory Rate 24 H 24 H 24 H Blood Pressure 144/70 H 121/67 Pulse Oximetry 100 100 Oxygen Delivery Fraction of Inspired Oxygen 01/20/24 05:31 01/20/24 05:45 01/20/24 05:46 Temperature 37.8 C H 37.8 C H 37.8 C H Pulse Rate 98 99 97 Respiratory Rate 24 H 24 H 24 H Blood Pressure 114/65 Pulse Oximetry Oxygen Delivery Fraction of Inspired Oxygen 01/20/24 06:00 01/20/24 06:00 01/20/24 06:34 Temperature Pulse Rate 96 96 96 Respiratory Rate 24 H 24 H Blood Pressure Pulse Oximetry Oxygen Delivery Fraction of Inspired Oxygen 01/20/24 06:34 01/20/24 06:00 01/20/24 06:01 Temperature 37.8 C H 37.8 C H Pulse Rate 97 96 Respiratory Rate 24 H 24 H Blood Pressure 121/59 L Pulse Oximetry Oxygen Delivery Fraction of Inspired Oxygen 50 01/20/24 06:15 01/20/24 06:16 01/20/24 06:30 Temperature 37.8 C H 37.8 C H 37.8 C H Pulse Rate 98 97 97 Respiratory Rate 24 H 24 H 24 H Blood Pressure 105/68 119/77 Pulse Oximetry Oxygen Delivery Fraction of Inspired Oxygen 01/20/24 06:31 01/20/24 06:30 01/20/24 06:30 Temperature 37.8 C H Pulse Rate 98 97 97 Respiratory Rate 24 H 24 H 24 H Blood Pressure Pulse Oximetry Oxygen Delivery Fraction of Inspired Oxygen 01/20/24 08:02 01/20/24 08:02 01/20/24 08:00 Temperature Pulse Rate 100 100 Respiratory Rate 24 H Blood Pressure Pulse Oximetry 100 Oxygen Delivery Mechanical Ventilation Fraction of Inspired Oxygen 50 50 01/20/24 08:07 01/20/24 08:07 01/20/24 08:00 Temperature Pulse Rate 102 H 102 H 102 H Respiratory Rate 24 H 24 H 24 H Blood Pressure Pulse Oximetry 100 Oxygen Delivery Mechanical Ventilation Fraction of Inspired Oxygen 50 01/20/24 08:00 01/20/24 08:34 01/20/24 08:00 Temperature 37.8 C H Pulse Rate 100 95 102 H Respiratory Rate 24 H 24 H Blood Pressure 131/65 Pulse Oximetry 100 Oxygen Delivery Fraction of Inspired Oxygen 01/20/24 10:00 01/20/24 10:00 01/20/24 10:49 Temperature 37.9 C H 38.1 C H Pulse Rate 97 99 Respiratory Rate 24 H Blood Pressure 127/59 L Pulse Oximetry 100 Oxygen Delivery Fraction of Inspired Oxygen 01/20/24 10:02 01/20/24 10:02 01/20/24 11:08 Temperature Pulse Rate 98 98 96 Respiratory Rate 24 H 24 H Blood Pressure Pulse Oximetry 98 Oxygen Delivery Mechanical Ventilation Fraction of Inspired Oxygen 50 Intake/Output Intake/Output: Intake & Output 01/17/24 01/18/24 01/19/24 01/20/24 23:59 23:59 23:59 23:59 Intake Total 3639.6 4417.7 2621.3 638.2 Output Total 300 500 550 500 Balance 3339.6 3917.7 2071.3 138.2 Meds/Results Medications: Active Medications Generic Name Dose Route Start Last Admin Trade Name Freq PRN Reason Stop Dose Admin Acetaminophen 650 mg 11/27/24 20:11 01/20/24 10:49 Acetaminophen 325 Mg Tablet PO 650 mg Q4H PRN Administration Mild Pain (1-3) or Fever Albuterol/Ipratropium 3 ml 01/16/24 02:00 01/20/24 08:00 Ipratropium 0.5 Mg/Albuterol Sulfate 2.5 Mg Ampul.Neb 3 Ml INHALATION 3 ml Q6HRT GELA Administration Amlodipine Besylate 5 mg 01/16/24 09:00 01/20/24 08:06 Amlodipine Besylate 5 Mg Tablet FEED TUBE 5 mg DAILY GELA Administration Dextrose 12.5 gm 01/19/24 02:06 Dextrose 50% 25 Gm/50 Ml Syringe IV PUSH PRN PRN Hypoglycemia Protocol Diazepam 20 mg 01/16/24 00:35 01/18/24 22:30 Diazepam (*Crx) 10 Mg Tablet PO Not Given HS GELA Enoxaparin Sodium 40 mg 01/17/24 09:00 01/20/24 08:06 Enoxaparin 40 Mg/0.4 Ml Syringe SUB-Q 40 mg DAILY GELA Administration Finasteride 5 mg 01/16/24 09:00 01/20/24 08:06 Finasteride 5 Mg Tablet FEED TUBE 5 mg DAILY GELA Administration Glucagon 1 mg 01/19/24 02:06 Glucagon For Inj 1 Mg Vial IM PRN PRN Hypoglycemia Protocol Glucose 15 gm 01/19/24 02:06 Glucose Oral Gel 15 Gm Of Glucse In 37.5 Gm Tube PO PRN PRN Hypoglycemia Protocol Fentanyl Citrate 2,500 mcg in 250 mls @ 5 mls/hr 01/18/24 21:50 01/20/24 10:02 Fentanyl 2,500 Mcg/Ns 250 Ml IV CONT 50 mcg/hr .Q50H GELA 5 mls/hr Titration Protocol 50 MCG/HR Midazolam HCl 100 mg in 100 mls @ 1 mls/hr 01/18/24 21:50 01/20/24 10:02 Versed 100 Mg/Ns 100 Ml IV CONT 1 mg/hr .Q72H GELA 1 mls/hr Titration Protocol 1 MG/HR Cefepime HCl 2 gm in 50 mls @ 100 mls/hr 01/19/24 01:00 01/20/24 06:06 Maxipime 2 Gm/Ns 50 Ml IVPB 100 mls/hr Q8HR GELA Administration Dextrose 1,000 mls @ 100 mls/hr 01/19/24 02:06 Dextrose 5% 1,000 Ml IVPB PRN PRN Hypoglycemia Protocol Dextrose 1,000 mls @ 50 mls/hr 01/19/24 12:00 Dextrose 10% IV CONT .Q20H PRN if PN is interrupted Multivitamins 2.5 ml/ 2,005 mls @ 40 mls/hr 01/19/24 11:30 01/20/24 02:00 Multivitamins 2.5 ml/ Amino IV CONT 40 mls/hr Acids/Dextrose .Q24H GELA Infusion Protocol Fat Emulsion Intravenous 250 mls @ 20.833 mls/hr 01/19/24 12:00 01/20/24 03 :43 Lipids 20% IVPB Infused Q24H GELA Infusion Metronidazole 500 mg in 100 mls @ 100 mls/hr 01/20/24 14:00 Flagyl 500 Mg/Iso Soln 100 Ml IVPB Q8HR GELA Insulin Aspart 3 - 6 units 01/19/24 06:00 01/20/24 06:00 Insulin Aspart (*Bkc) 100 Units/Ml SUB-Q Not Given Q6HR [facility] Protocol Metoclopramide HCl 5 mg 01/18/24 18:00 01/20/24 06:13 Metoclopramide Hcl Inj 10 Mg/2 Ml Vial IV PUSH 5 mg Q6HR GELA Administration Miconazole Nitrate 1 applic 01/16/24 09:00 01/20/24 08:08 Miconazole Nitrate 2% Cream 30 Gm Tube TOPICAL 1 applic Q12H GELA Administration Multi-Ingred Cream/Lotion/Oil/Oint 1 applic 01/19/24 09:00 01/20/24 08:06 Mineral Oil/White Petrolatum Ointment EACH EYE 1 applic Q12HR GELA Administration Pantoprazole Sodium 40 mg 01/19/24 09:00 01/20/24 08:06 Pantoprazole Sodium Iv 40 Mg Vial IV PUSH 40 mg Q12HR GELA Administration Sodium Chloride 20 ml 01/19/24 09:47 Central Line Flush IV PUSH PRN PRN after blood draws Sodium Chloride 10 ml 01/19/24 09:47 Central Line Flush IV PUSH PRN PRN with TPN bag changes Sodium Chloride 10 ml 01/19/24 14:00 01/20/24 06:12 Central Line Flush IV PUSH 10 ml Q8HR GELA Administration Radiology Results: ITS Impressions High Resolution CT 01/15/24 17:39 IMPRESSION: 1. Extensive tree-in-bud opacities in the dependent aspect of both lungs with more dense consolidation in the dependent aspect of the bilateral lower lobes consistent with pneumonia. This may be due to aspiration given the distribution of the presence of likely aspirated barium in the bilateral lower lobes. Chest CTA 01/15/24 19:40 IMPRESSION: 1. No pulmonary collision. 2. Extensive tree-in-bud opacities in the bilateral lower lungs with more dense consolidation in the dependent bilateral lower lobes consistent with pneumonia. Significant progression of mucus plugging throughout the lower lobar bronchi. 3. A few high attenuation material in the basilar lower lobes, left greater than right right which is suspicious for aspirated barium. Upper GI Series 01/17/24 15:50 IMPRESSION: 1. Percutaneous gastrostomy tube bulb in the distal body the stomach with normal small bowel follow-through. 2. Persistent opacities in the right mid to lower and left lower lung zones suspicious for pneumonia with some increased density at the lung bases suspicious for aspirated barium. Abdomen X-Ray 01/19/24 06:30 IMPRESSION: 1. Nasogastric tube tip in the stomach. Chest X-Ray 01/20/24 06:16 Impression: Patchy bilateral pneumonia, as above. Underlying COPD. Support tubes, as above. Labs Labs: Laboratory Results - last 24 hr 01/19/24 01/19/24 01/19/24 12:07 12:08 17:13 WBC 10.6 H RBC 3.32 L Hgb 10.6 L Hct 35.8 L MCV 107.8 H MCH 31.9 MCHC 29.6 L RDW 14.0 Plt Count 195 MPV 12.5 H Immature Gran % (Auto) 0.5 Neut % (Auto) 94.4 H Lymph % (Auto) 2.3 L [place] % (Auto) 2.6 Eos % (Auto) 0.0 Baso % (Auto) 0.2 Lymph # (Auto) 0.25 L [place] # (Auto) 0.3 Eos # (Auto) 0.0 Baso # (Auto) 0.0 Abs Immat Gran (auto) 0.05 H Absolute Neuts (auto) 10.0 H Absolute Nucleated RBC 0.000 Nucleated RBC % 0.0 Platelet Estimate Adequate Large Platelets Hypochromasia 1+ Anisocytosis 1+ Macrocytosis 1+ Ovalocytes 1+ Schistocytes None seen PT INR APTT 42.2 H Puncture Site ABG pH ABG pCO2 ABG pO2 ABG PO2/FiO2 Ratio ABG HCO3 ABG O2 Saturation ABG O2 Content ABG Base Excess A-a Gradient Oxyhemoglobin Carboxyhemoglobin Methemoglobin Reduced Hemoglobin Total Hemoglobin O2 Delivery Device O2 Liters/Min Minute Volume Vent Rate Vent Mode FiO2 Tidal Volume PEEP Peak Inspir Pressure Pressure Support Sodium 149 H Potassium 3.6 Chloride 112 H Carbon Dioxide 35 H Anion Gap 2 L BUN 39 H Creatinine 0.80 Estim Creat Clear Calc 77 Estimated GFR > 60 Glucose 151 H POC Capillary Glucose 144 H 180 H Calcium 8.4 Phosphorus Magnesium 2.1 Transferrin 97 L Total Bilirubin 0.4 AST 16 L ALT 14 Alkaline Phosphatase 70 Total Protein 6.0 L Albumin 2.7 L Triglycerides Urine Color Urine Appearance Urine pH Ur Specific [place] Urine Protein Urine Glucose (UA) Urine Ketones Ur Blood (Man) Urine Nitrate Urine Bilirubin Urine Urobilinogen Add Ur Microanalysis Leukocyte Esterase Rfl Urine RBC Urine WBC Ur Squamous Epith Cells Urine Bacteria Urine Casts Granular Casts 01/20/24 01/20/24 01/20/24 00:26 04:16 05:15 WBC 6.4 RBC 2.95 L Hgb 9.5 L Hct 32.0 L MCV 108.5 H MCH 32.2 MCHC 29.7 L RDW 14.2 Plt Count 152 MPV 12.7 H Immature Gran % (Auto) 0.6 H Neut % (Auto) 90.3 H Lymph % (Auto) 4.4 L [place] % (Auto) 4.3 Eos % (Auto) 0.2 Baso % (Auto) 0.2 Lymph # (Auto) 0.28 L [place] # (Auto) 0.3 Eos # (Auto) 0.0 Baso # (Auto) 0.0 Abs Immat Gran (auto) 0.04 H Absolute Neuts (auto) 5.7 Absolute Nucleated RBC 0.000 Nucleated RBC % 0.0 Platelet Estimate Slightly decreased Large Platelets Present Hypochromasia 1+ Anisocytosis 1+ Macrocytosis 1+ Ovalocytes Schistocytes None seen PT 15.0 H INR 1.2 APTT 44.7 H Puncture Site Right radial ABG pH 7.237 L* ABG pCO2 66.6 H* ABG pO2 87.8 ABG PO2/FiO2 Ratio 1.76 ABG HCO3 27.7 H ABG O2 Saturation 94.8 L ABG O2 Content 16.9 ABG Base Excess -1.0 A-a Gradient 193.8 Oxyhemoglobin 96.6 Carboxyhemoglobin 0.5 Methemoglobin 0.3 Reduced Hemoglobin 2.6 Total Hemoglobin 12.4 O2 Delivery Device Ventilator O2 Liters/Min Not Reportable Minute Volume Not Reportable Vent Rate 24 Vent Mode Cmv FiO2 50 Tidal Volume 450 PEEP 10 Peak Inspir Pressure Not Reportable Pressure Support Not Reportable Sodium 147 H Potassium 3.7 Chloride 112 H Carbon Dioxide 33 H Anion Gap 2 L BUN 43 H Creatinine 1.10 Estim Creat Clear Calc 57 Estimated GFR > 60 Glucose 145 H POC Capillary Glucose 141 H Calcium 8.3 L Phosphorus 2.9 Magnesium 2.1 Transferrin 85 L Total Bilirubin 0.3 AST 13 L ALT 11 Alkaline Phosphatase 65 Total Protein 6.0 L Albumin 2.5 L Triglycerides 52 Urine Color Urine Appearance Urine pH Ur Specific [place] Urine Protein Urine Glucose (UA) Urine Ketones Ur Blood (Man) Urine Nitrate Urine Bilirubin Urine Urobilinogen Add Ur Microanalysis Leukocyte Esterase Rfl Urine RBC Urine WBC Ur Squamous Epith Cells Urine Bacteria Urine Casts Granular Casts 01/20/24 08:44 WBC RBC Hgb Hct MCV MCH MCHC RDW Plt Count MPV Immature Gran % (Auto) Neut % (Auto) Lymph % (Auto) [place] % (Auto) Eos % (Auto) Baso % (Auto) Lymph # (Auto) [place] # (Auto) Eos # (Auto) Baso # (Auto) Abs Immat Gran (auto) Absolute Neuts (auto) Absolute Nucleated RBC Nucleated RBC % Platelet Estimate Large Platelets Hypochromasia Anisocytosis Macrocytosis Ovalocytes Schistocytes PT INR APTT Puncture Site ABG pH ABG pCO2 ABG pO2 ABG PO2/FiO2 Ratio ABG HCO3 ABG O2 Saturation ABG O2 Content ABG Base Excess A-a Gradient Oxyhemoglobin Carboxyhemoglobin Methemoglobin Reduced Hemoglobin Total Hemoglobin O2 Delivery Device O2 Liters/Min Minute Volume Vent Rate Vent Mode FiO2 Tidal Volume PEEP Peak Inspir Pressure Pressure Support Sodium Potassium Chloride Carbon Dioxide Anion Gap BUN Creatinine Estim Creat Clear Calc Estimated GFR Glucose POC Capillary Glucose Calcium Phosphorus Magnesium Transferrin Total Bilirubin AST ALT Alkaline Phosphatase Total Protein Albumin Triglycerides Urine Color Yellow Urine Appearance Cloudy H Urine pH 5.5 Ur Specific [place] 1.021 Urine Protein 2+ H Urine Glucose (UA) Negative Urine Ketones Negative Ur Blood (Man) Non-hemolyzed trace Urine Nitrate Negative Urine Bilirubin Negative Urine Urobilinogen 0.2 Add Ur Microanalysis Reviewed Leukocyte Esterase Rfl Trace H Urine RBC 6-10 H Urine WBC 11-20 H Ur Squamous Epith Cells Many H Urine Bacteria None seen Urine Casts >20 Granular Casts Present
[2024-01-20 12:07] LABS: Glucose Point of Care 135 mg/dl (65-105)
[2024-01-20] MEDS: FAT EMULSIONS IV 20% 250 ML 20.8 ML IVPB (12:42)
--- NOTE | 2024-01-20 15:28 | WPDGIPROGNO ---
Progress Note: A&P Assessment and Plan (1) Aspiration pneumonia: Qualifiers: Aspiration pneumonia type: unspecified Laterality: bilateral Lung location: lower lobe of lung Qualified Code(s): J69.0 - Pneumonitis due to inhalation of food and vomit Code(s): J69.0 - Pneumonitis due to inhalation of food and vomit Status: Acute Assessment and Plan: The patient is doing well with low-dose metoclopramide intravenously while his tube feedings are being regulated gradually. The goal is to take him off peripheral hyperal and go back to goal as far as enteral feedings are concerned. Subjective Date/time seen: 01/20/24 15:28 Interval history: Patient suffered a decompensation episode of his preexistent aspiration pneumonia, requiring transfer to the ICU and intubation. However, he is tolerating slow infusion enteral nutrition and is still getting peripheral hyperalimentation which is being weaned. Exam Narrative: General: Intubated and sedated in no acute distress HEENT:? Pupils equal and reactive, sclera is clear, ETT in place Neck:? Supple Respiratory:? Coarse breath sounds bilaterally, greater and lower lobes. Decreased breath sounds at lower lobes, no wheezing, adequate air entry Cardiac:? S1-S2 normal, sinus tachycardia Abdomen:? Soft, nontender, nondistended, hypoactive bowel sounds, PEG tube in place Extremities: Trace edema bilaterally, the pulse Neuro:? Patient is intubated, sedated, Skin:? Trauma and dry, pallor noted Psych:? Unable to assess at this time Objective Data Vital Signs Vital Signs: Vital Signs - 24 hr 01/19/24 16:08 01/19/24 16:00 01/19/24 16:00 Temperature 100.9 F H Pulse Rate 105 H 105 H Respiratory Rate 25 H 25 H Blood Pressure Pulse Oximetry Oxygen Delivery Fraction of Inspired Oxygen 01/19/24 16:00 01/19/24 17:02 01/19/24 16:00 Temperature Pulse Rate 104 H 101 H Respiratory Rate Blood Pressure Pulse Oximetry 96 Oxygen Delivery Mechanical Ventilation Fraction of Inspired Oxygen 60 60 01/19/24 16:00 01/19/24 18:00 01/19/24 18:00 Temperature 100.8 F H Pulse Rate 105 H 99 99 Respiratory Rate 25 H 26 H 26 H Blood Pressure 150/72 H Pulse Oximetry 99 Oxygen Delivery Fraction of Inspired Oxygen 01/19/24 18:00 01/19/24 18:00 01/19/24 20:00 Temperature 99.7 F H Pulse Rate 99 99 100 Respiratory Rate 26 H 24 H Blood Pressure 137/56 L Pulse Oximetry 96 100 Oxygen Delivery Mechanical Ventilation Fraction of Inspired Oxygen 60 01/19/24 20:00 01/19/24 20:00 01/19/24 20:00 Temperature 98.9 F Pulse Rate 100 100 Respiratory Rate 24 H Blood Pressure 162/66 H Pulse Oximetry 100 Oxygen Delivery Fraction of Inspired Oxygen 60 01/19/24 19:00 01/19/24 19:00 01/19/24 20:00 Temperature Pulse Rate 98 98 100 Respiratory Rate 25 H 25 H 24 H Blood Pressure Pulse Oximetry Oxygen Delivery Fraction of Inspired Oxygen 01/19/24 20:00 01/19/24 21:00 01/19/24 21:00 Temperature Pulse Rate 100 99 99 Respiratory Rate 24 H 25 H 25 H Blood Pressure Pulse Oximetry Oxygen Delivery Fraction of Inspired Oxygen 01/19/24 21:00 01/19/24 21:05 01/19/24 19:00 Temperature 99.1 F Pulse Rate 99 96 98 Respiratory Rate 27 H 23 H Blood Pressure 151/63 H Pulse Oximetry 98 96 Oxygen Delivery Mechanical Ventilation Fraction of Inspired Oxygen 60 01/19/24 19:01 01/19/24 19:15 01/19/24 19:30 Temperature 99.1 F 99.0 F 99.0 F Pulse Rate 97 96 98 Respiratory Rate 24 H 25 H 23 H Blood Pressure Pulse Oximetry 96 98 99 Oxygen Delivery Fraction of Inspired Oxygen 01/19/24 19:45 01/19/24 20:00 01/19/24 20:01 Temperature 98.9 F 99.0 F 99.0 F Pulse Rate 98 99 100 Respiratory Rate 25 H 24 H 25 H Blood Pressure 162/66 H Pulse Oximetry 100 100 100 Oxygen Delivery Fraction of Inspired Oxygen 01/19/24 20:15 01/19/24 20:30 01/19/24 20:40 Temperature 99.0 F 99.1 F 99.1 F Pulse Rate 100 100 101 H Respiratory Rate 24 H 26 H 28 H Blood Pressure 154/66 H Pulse Oximetry 100 100 100 Oxygen Delivery Fraction of Inspired Oxygen 01/19/24 20:45 01/19/24 20:46 01/19/24 21:00 Temperature 99.1 F 99.1 F 99.1 F Pulse Rate 101 H 100 102 H Respiratory Rate 25 H 25 H 24 H Blood Pressure 154/66 H 157/66 H Pulse Oximetry 100 100 100 Oxygen Delivery Fraction of Inspired Oxygen 01/19/24 21:01 01/19/24 21:15 01/19/24 21:16 Temperature 99.1 F 99.1 F 99.1 F Pulse Rate 100 100 99 Respiratory Rate 24 H 25 H 24 H Blood Pressure 155/69 H Pulse Oximetry 100 Oxygen Delivery Fraction of Inspired Oxygen 01/19/24 22:00 01/19/24 22:00 01/19/24 22:00 Temperature Pulse Rate 98 97 97 Respiratory Rate 25 H 25 H Blood Pressure 148/64 H Pulse Oximetry 100 Oxygen Delivery Fraction of Inspired Oxygen 01/19/24 22:00 01/19/24 23:26 01/20/24 00:00 Temperature Pulse Rate 97 100 104 H Respiratory Rate 25 H Blood Pressure Pulse Oximetry 98 Oxygen Delivery Mechanical Ventilation Fraction of Inspired Oxygen 60 01/20/24 00:45 01/20/24 00:45 01/19/24 23:00 Temperature Pulse Rate 108 H 96 Respiratory Rate 25 H 25 H Blood Pressure Pulse Oximetry Oxygen Delivery Mechanical Ventilation Fraction of Inspired Oxygen 55 55 01/19/24 23:00 01/20/24 00:00 01/20/24 00:00 Temperature Pulse Rate 96 103 H 103 H Respiratory Rate 25 H 24 H 24 H Blood Pressure Pulse Oximetry Oxygen Delivery Fraction of Inspired Oxygen 01/20/24 00:45 01/20/24 00:45 01/20/24 01:00 Temperature Pulse Rate 108 H 108 H 110 H Respiratory Rate 25 H 25 H 27 H Blood Pressure Pulse Oximetry Oxygen Delivery Fraction of Inspired Oxygen 01/20/24 01:00 01/20/24 01:15 01/20/24 01:15 Temperature Pulse Rate 110 H 110 H 110 H Respiratory Rate 27 H 25 H 25 H Blood Pressure Pulse Oximetry Oxygen Delivery Fraction of Inspired Oxygen 01/20/24 01:30 01/20/24 01:30 01/20/24 01:58 Temperature 101 F H Pulse Rate 112 H 112 H Respiratory Rate 27 H 27 H Blood Pressure Pulse Oximetry Oxygen Delivery Fraction of Inspired Oxygen 01/19/24 21:30 01/19/24 21:31 01/19/24 21:45 Temperature 99.2 F 99.2 F 99.3 F Pulse Rate 98 98 96 Respiratory Rate 27 H 22 H 24 H Blood Pressure 153/55 H 138/60 Pulse Oximetry Oxygen Delivery Fraction of Inspired Oxygen 01/19/24 21:46 01/19/24 22:00 01/19/24 22:01 Temperature 99.3 F 99.5 F 99.5 F Pulse Rate 94 95 95 Respiratory Rate 24 H 24 H 24 H Blood Pressure 148/64 H Pulse Oximetry Oxygen Delivery Fraction of Inspired Oxygen 01/19/24 22:15 01/19/24 22:16 01/19/24 22:30 Temperature 99.7 F H 99.7 F H 99.8 F H Pulse Rate 97 97 98 Respiratory Rate 19 24 H 24 H Blood Pressure 143/71 H Pulse Oximetry Oxygen Delivery Fraction of Inspired Oxygen 01/19/24 22:31 01/19/24 22:45 01/19/24 22:46 Temperature 99.9 F H 100.0 F H 100.0 F H Pulse Rate 100 97 97 Respiratory Rate 22 H 25 H 25 H Blood Pressure 146/61 H 139/72 Pulse Oximetry Oxygen Delivery Fraction of Inspired Oxygen 01/19/24 23:00 01/19/24 23:01 01/19/24 23:15 Temperature 100.1 F H 100.1 F H 100.3 F H Pulse Rate 96 95 96 Respiratory Rate 24 H 24 H 21 H Blood Pressure 129/51 L Pulse Oximetry Oxygen Delivery Fraction of Inspired Oxygen 01/19/24 23:16 01/19/24 23:30 01/19/24 23:31 Temperature 100.3 F H 100.4 F H 100.4 F H Pulse Rate 97 101 H 95 Respiratory Rate 25 H 24 H 24 H Blood Pressure 150/65 H 138/71 Pulse Oximetry Oxygen Delivery Fraction of Inspired Oxygen 01/19/24 23:45 01/19/24 23:46 01/20/24 00:00 Temperature 100.5 F H 100.5 F H 100.6 F H Pulse Rate 100 100 103 H Respiratory Rate 25 H 24 H 24 H Blood Pressure 144/60 H 177/73 H Pulse Oximetry Oxygen Delivery Fraction of Inspired Oxygen 01/20/24 00:01 01/20/24 00:15 01/20/24 00:16 Temperature 100.6 F H 100.7 F H 100.7 F H Pulse Rate 104 H 110 H 107 H Respiratory Rate 25 H 22 H 24 H Blood Pressure 188/87 H Pulse Oximetry Oxygen Delivery Fraction of Inspired Oxygen 01/20/24 00:30 01/20/24 00:31 01/20/24 00:45 Temperature 100.8 F H 100.8 F H 100.9 F H Pulse Rate 109 H 108 H 108 H Respiratory Rate 27 H 23 H 25 H Blood Pressure 161/91 H 169/73 H Pulse Oximetry Oxygen Delivery Fraction of Inspired Oxygen 01/20/24 00:46 01/20/24 01:00 01/20/24 01:01 Temperature 100.9 F H 101.0 F H 101.0 F H Pulse Rate 109 H 106 H 111 H Respiratory Rate 26 H 26 H 27 H Blood Pressure 169/71 H Pulse Oximetry 100 100 Oxygen Delivery Fraction of Inspired Oxygen 01/20/24 01:15 01/20/24 01:16 01/20/24 01:30 Temperature 101.0 F H 101.0 F H 101.1 F H Pulse Rate 111 H 111 H 113 H Respiratory Rate 26 H 25 H 25 H Blood Pressure 140/77 153/75 H Pulse Oximetry 97 97 96 Oxygen Delivery Fraction of Inspired Oxygen 01/20/24 01:31 01/20/24 02:21 01/20/24 02:22 Temperature 101.1 F H Pulse Rate 112 H 109 H 107 H Respiratory Rate 27 H 26 H Blood Pressure Pulse Oximetry 96 96 Oxygen Delivery Mechanical Ventilation Fraction of Inspired Oxygen 60 01/20/24 02:00 01/20/24 02:00 01/20/24 02:00 Temperature Pulse Rate 108 H 110 H 110 H Respiratory Rate 25 H 25 H Blood Pressure Pulse Oximetry Oxygen Delivery Fraction of Inspired Oxygen 01/20/24 01:45 01/20/24 01:46 01/20/24 02:00 Temperature 101.0 F H 101.0 F H 101.0 F H Pulse Rate 112 H 113 H 109 H Respiratory Rate 25 H 26 H 24 H Blood Pressure 150/71 H 140/71 Pulse Oximetry 96 96 95 Oxygen Delivery Fraction of Inspired Oxygen 01/20/24 02:01 01/20/24 02:15 01/20/24 02:16 Temperature 101.0 F H 100.9 F H 100.9 F H Pulse Rate 110 H 109 H 108 H Respiratory Rate 25 H 25 H 25 H Blood Pressure 129/75 Pulse Oximetry 96 96 96 Oxygen Delivery Fraction of Inspired Oxygen 01/20/24 03:34 01/20/24 03:34 01/20/24 03:35 Temperature Pulse Rate 93 93 93 Respiratory Rate 24 H 24 H 24 H Blood Pressure Pulse Oximetry Oxygen Delivery Fraction of Inspired Oxygen 01/20/24 03:35 01/20/24 02:58 01/20/24 03:45 Temperature 100.9 F H Pulse Rate 93 Respiratory Rate 24 H Blood Pressure Pulse Oximetry Oxygen Delivery Fraction of Inspired Oxygen 55 01/20/24 03:47 01/20/24 02:30 01/20/24 02:31 Temperature 100.7 F H 100.7 F H Pulse Rate 93 105 H 104 H Respiratory Rate 24 H 25 H 25 H Blood Pressure 101/61 Pulse Oximetry 98 95 95 Oxygen Delivery Mechanical Ventilation Fraction of Inspired Oxygen 55 01/20/24 02:45 01/20/24 02:46 01/20/24 03:00 Temperature 100.6 F H 100.5 F H 100.4 F H Pulse Rate 104 H 102 H 98 Respiratory Rate 24 H 24 H 24 H Blood Pressure 102/48 L 100/51 L Pulse Oximetry 95 95 95 Oxygen Delivery Fraction of Inspired Oxygen 01/20/24 03:01 01/20/24 03:15 01/20/24 03:16 Temperature 100.4 F H 100.3 F H 100.3 F H Pulse Rate 97 95 94 Respiratory Rate 24 H 24 H 24 H Blood Pressure 101/50 L Pulse Oximetry 95 95 95 Oxygen Delivery Fraction of Inspired Oxygen 01/20/24 03:30 01/20/24 03:31 01/20/24 03:45 Temperature 100.2 F H 100.2 F H 100.1 F H Pulse Rate 93 94 93 Respiratory Rate 24 H 24 H 24 H Blood Pressure 105/51 L 108/56 L Pulse Oximetry 95 96 98 Oxygen Delivery Fraction of Inspired Oxygen 01/20/24 03:46 01/20/24 04:00 01/20/24 04:01 Temperature 100.1 F H Pulse Rate 93 94 100 Respiratory Rate 24 H Blood Pressure Pulse Oximetry 98 Oxygen Delivery Fraction of Inspired Oxygen 01/20/24 04:00 01/20/24 04:01 01/20/24 04:15 Temperature 100.0 F H 100.0 F H 99.9 F H Pulse Rate 93 93 96 Respiratory Rate 25 H 24 H 25 H Blood Pressure 118/60 123/71 Pulse Oximetry 100 100 100 Oxygen Delivery Fraction of Inspired Oxygen 01/20/24 04:16 01/20/24 04:30 01/20/24 04:31 Temperature 99.9 F H 99.9 F H 99.9 F H Pulse Rate 96 97 96 Respiratory Rate 24 H 24 H 24 H Blood Pressure 129/67 Pulse Oximetry 100 100 100 Oxygen Delivery Fraction of Inspired Oxygen 01/20/24 04:45 01/20/24 05:22 01/20/24 04:46 Temperature 99.9 F H 99.9 F H Pulse Rate 98 97 96 Respiratory Rate 24 H 24 H Blood Pressure 123/64 Pulse Oximetry 100 100 100 Oxygen Delivery Mechanical Ventilation Fraction of Inspired Oxygen 60 01/20/24 05:00 01/20/24 05:01 01/20/24 05:15 Temperature 99.9 F H 99.9 F H 100.0 F H Pulse Rate 98 97 98 Respiratory Rate 24 H 24 H 24 H Blood Pressure 134/64 144/70 H Pulse Oximetry 100 100 100 Oxygen Delivery Fraction of Inspired Oxygen 01/20/24 05:16 01/20/24 05:30 01/20/24 05:31 Temperature 100.0 F H 100.0 F H 100.0 F H Pulse Rate 97 98 98 Respiratory Rate 24 H 24 H 24 H Blood Pressure 121/67 Pulse Oximetry 100 Oxygen Delivery Fraction of Inspired Oxygen 01/20/24 05:45 01/20/24 05:46 01/20/24 06:00 Temperature 100.1 F H 100.1 F H Pulse Rate 99 97 96 Respiratory Rate 24 H 24 H 24 H Blood Pressure 114/65 Pulse Oximetry Oxygen Delivery Fraction of Inspired Oxygen 01/20/24 06:00 01/20/24 06:34 01/20/24 06:34 Temperature Pulse Rate 96 96 Respiratory Rate 24 H Blood Pressure Pulse Oximetry Oxygen Delivery Fraction of Inspired Oxygen 50 01/20/24 06:00 01/20/24 06:01 01/20/24 06:15 Temperature 100.1 F H 100.1 F H 100.1 F H Pulse Rate 97 96 98 Respiratory Rate 24 H 24 H 24 H Blood Pressure 121/59 L 105/68 Pulse Oximetry Oxygen Delivery Fraction of Inspired Oxygen 01/20/24 06:16 01/20/24 06:30 01/20/24 06:31 Temperature 100.1 F H 100.1 F H 100.0 F H Pulse Rate 97 97 98 Respiratory Rate 24 H 24 H 24 H Blood Pressure 119/77 Pulse Oximetry Oxygen Delivery Fraction of Inspired Oxygen 01/20/24 06:30 01/20/24 06:30 01/20/24 08:02 Temperature Pulse Rate 97 97 100 Respiratory Rate 24 H 24 H Blood Pressure Pulse Oximetry 100 Oxygen Delivery Mechanical Ventilation Fraction of Inspired Oxygen 50 01/20/24 08:02 01/20/24 08:00 01/20/24 08:07 Temperature Pulse Rate 100 102 H Respiratory Rate 24 H 24 H Blood Pressure Pulse Oximetry Oxygen Delivery Fraction of Inspired Oxygen 50 01/20/24 08:07 01/20/24 08:00 01/20/24 08:00 Temperature 100.1 F H Pulse Rate 102 H 102 H 100 Respiratory Rate 24 H 24 H 24 H Blood Pressure 131/65 Pulse Oximetry 100 100 Oxygen Delivery Mechanical Ventilation Fraction of Inspired Oxygen 50 01/20/24 08:34 01/20/24 08:00 01/20/24 10:00 Temperature Pulse Rate 95 102 H 97 Respiratory Rate 24 H Blood Pressure Pulse Oximetry Oxygen Delivery Fraction of Inspired Oxygen 01/20/24 10:00 01/20/24 10:49 01/20/24 10:02 Temperature 100.3 F H 100.5 F H Pulse Rate 99 98 Respiratory Rate 24 H 24 H Blood Pressure 127/59 L Pulse Oximetry 100 Oxygen Delivery Fraction of Inspired Oxygen 01/20/24 10:02 01/20/24 11:08 01/20/24 11:49 Temperature 100.6 F H Pulse Rate 98 96 Respiratory Rate 24 H Blood Pressure Pulse Oximetry 98 Oxygen Delivery Mechanical Ventilation Fraction of Inspired Oxygen 50 01/20/24 12:05 01/20/24 12:05 01/20/24 12:00 Temperature Pulse Rate 95 95 952 H Respiratory Rate 24 H 24 H 24 H Blood Pressure Pulse Oximetry 93 Oxygen Delivery Mechanical Ventilation Fraction of Inspired Oxygen 50 01/20/24 12:00 01/20/24 12:00 01/20/24 12:00 Temperature 100.6 F H Pulse Rate 95 97 Respiratory Rate 24 H Blood Pressure 98/49 L Pulse Oximetry 93 Oxygen Delivery Fraction of Inspired Oxygen 50 01/20/24 13:29 01/20/24 13:29 01/20/24 14:03 Temperature Pulse Rate 94 94 97 Respiratory Rate 24 H 24 H Blood Pressure Pulse Oximetry 98 Oxygen Delivery Mechanical Ventilation Fraction of Inspired Oxygen 50 01/20/24 14:03 01/20/24 13:58 01/20/24 14:00 Temperature 100.1 F H Pulse Rate 97 97 97 Respiratory Rate 24 H 24 H 24 H Blood Pressure 128/62 Pulse Oximetry 99 Oxygen Delivery Fraction of Inspired Oxygen 01/20/24 14:00 Temperature Pulse Rate 97 Respiratory Rate Blood Pressure Pulse Oximetry Oxygen Delivery Fraction of Inspired Oxygen Intake/Output Intake/Output: Intake & Output 01/17/24 01/18/24 01/19/24 01/20/24 23:59 23:59 23:59 23:59 Intake Total 3639.6 4417.7 2621.3 1164.9 Output Total 300 500 550 500 Balance 3339.6 3917.7 2071.3 664.9 Meds/Results Medications: Active Medications Generic Name Dose Route Start Last Admin Trade Name Freq PRN Reason Stop Dose Admin Acetaminophen 650 mg 01/15/24 20:11 01/20/24 10:49 Acetaminophen 325 Mg Tablet PO 650 mg Q4H PRN Administration Mild Pain (1-3) or Fever Albuterol/Ipratropium 3 ml 01/16/24 02:00 01/20/24 13:29 Ipratropium 0.5 Mg/Albuterol Sulfate 2.5 Mg Ampul.Neb 3 Ml INHALATION 3 ml Q6HRT GELA Administration Amlodipine Besylate 5 mg 01/16/24 09:00 01/20/24 08:06 Amlodipine Besylate 5 Mg Tablet FEED TUBE 5 mg DAILY GELA Administration Dextrose 12.5 gm 01/19/24 02:06 Dextrose 50% 25 Gm/50 Ml Syringe IV PUSH PRN PRN Hypoglycemia Protocol Diazepam 20 mg 01/16/24 00:35 01/18/24 22:30 Diazepam (*Crx) 10 Mg Tablet PO Not Given HS GELA Enoxaparin Sodium 40 mg 01/17/24 09:00 01/20/24 08:06 Enoxaparin 40 Mg/0.4 Ml Syringe SUB-Q 40 mg DAILY GELA Administration Finasteride 5 mg 01/16/24 09:00 01/20/24 08:06 Finasteride 5 Mg Tablet FEED TUBE 5 mg DAILY GELA Administration Glucagon 1 mg 01/19/24 02:06 Glucagon For Inj 1 Mg Vial IM PRN PRN Hypoglycemia Protocol Glucose 15 gm 01/19/24 02:06 Glucose Oral Gel 15 Gm Of Glucse In 37.5 Gm Tube PO PRN PRN Hypoglycemia Protocol Fentanyl Citrate 2,500 mcg in 250 mls @ 5 mls/hr 01/18/24 21:50 01/20/24 14:03 Fentanyl 2,500 Mcg/Ns 250 Ml IV CONT 50 mcg/hr .Q50H GELA 5 mls/hr Titration Protocol 50 MCG/HR Midazolam HCl 100 mg in 100 mls @ 1 mls/hr 01/18/24 21:50 01/20/24 14:03 Versed 100 Mg/Ns 100 Ml IV CONT 1 mg/hr .Q72H GELA 1 mls/hr Titration Protocol 1 MG/HR Cefepime HCl 2 gm in 50 mls @ 100 mls/hr 01/19/24 01:00 01/20/24 15:22 Maxipime 2 Gm/Ns 50 Ml IVPB Infused Q8HR GELA Infusion Dextrose 1,000 mls @ 100 mls/hr 01/19/24 02:06 Dextrose 5% 1,000 Ml IVPB PRN PRN Hypoglycemia Protocol Dextrose 1,000 mls @ 50 mls/hr 01/19/24 12:00 Dextrose 10% IV CONT .Q20H PRN if PN is interrupted Metronidazole 500 mg in 100 mls @ 100 mls/hr 01/20/24 14:00 01/20/24 15:23 Flagyl 500 Mg/Iso Soln 100 Ml IVPB Infused Q8HR GELA Infusion Insulin Aspart 3 - 6 units 01/19/24 06:00 01/20/24 12:42 Insulin Aspart (*Bkc) 100 Units/Ml SUB-Q Not Given Q6HR [facility] Protocol Metoclopramide HCl 5 mg 01/18/24 18:00 01/20/24 12:42 Metoclopramide Hcl Inj 10 Mg/2 Ml Vial IV PUSH 5 mg Q6HR GELA Administration Miconazole Nitrate 1 applic 01/16/24 09:00 01/20/24 08:08 Miconazole Nitrate 2% Cream 30 Gm Tube TOPICAL 1 applic Q12H GELA Administration Multi-Ingred Cream/Lotion/Oil/Oint 1 applic 01/19/24 09:00 01/20/24 08:06 Mineral Oil/White Petrolatum Ointment EACH EYE 1 applic Q12HR GELA Administration Pantoprazole Sodium 40 mg 01/19/24 09:00 01/20/24 08:06 Pantoprazole Sodium Iv 40 Mg Vial IV PUSH 40 mg Q12HR GELA Administration Sodium Chloride 20 ml 01/19/24 09:47 Central Line Flush IV PUSH PRN PRN after blood draws Sodium Chloride 10 ml 01/19/24 14:00 01/20/24 13:58 Central Line Flush IV PUSH 10 ml Q8HR GELA Administration Radiology Results: ITS Impressions High Resolution CT 01/15/24 17:39 IMPRESSION: 1. Extensive tree-in-bud opacities in the dependent aspect of both lungs with more dense consolidation in the dependent aspect of the bilateral lower lobes consistent with pneumonia. This may be due to aspiration given the distribution of the presence of likely aspirated barium in the bilateral lower lobes. Chest CTA 01/15/24 19:40 IMPRESSION: 1. No pulmonary collision. 2. Extensive tree-in-bud opacities in the bilateral lower lungs with more dense consolidation in the dependent bilateral lower lobes consistent with pneumonia. Significant progression of mucus plugging throughout the lower lobar bronchi. 3. A few high attenuation material in the basilar lower lobes, left greater than right right which is suspicious for aspirated barium. Upper GI Series 01/17/24 15:50 IMPRESSION: 1. Percutaneous gastrostomy tube bulb in the distal body the stomach with normal small bowel follow-through. 2. Persistent opacities in the right mid to lower and left lower lung zones suspicious for pneumonia with some increased density at the lung bases suspicious for aspirated barium. Abdomen X-Ray 01/19/24 06:30 IMPRESSION: 1. Nasogastric tube tip in the stomach. Chest X-Ray 01/20/24 06:16 Impression: Patchy bilateral pneumonia, as above. Underlying COPD. Support tubes, as above. Labs Labs: Laboratory Results - last 24 hr 01/19/24 01/20/24 01/20/24 17:13 00:26 04:16 WBC 6.4 RBC 2.95 L Hgb 9.5 L Hct 32.0 L MCV 108.5 H MCH 32.2 MCHC 29.7 L RDW 14.2 Plt Count 152 MPV 12.7 H Immature Gran % (Auto) 0.6 H Neut % (Auto) 90.3 H Lymph % (Auto) 4.4 L [place] % (Auto) 4.3 Eos % (Auto) 0.2 Baso % (Auto) 0.2 Lymph # (Auto) 0.28 L [place] # (Auto) 0.3 Eos # (Auto) 0.0 Baso # (Auto) 0.0 Abs Immat Gran (auto) 0.04 H Absolute Neuts (auto) 5.7 Absolute Nucleated RBC 0.000 Nucleated RBC % 0.0 Platelet Estimate Slightly decreased Large Platelets Present Hypochromasia 1+ Anisocytosis 1+ Macrocytosis 1+ Schistocytes None seen PT 15.0 H INR 1.2 APTT 44.7 H Puncture Site ABG pH ABG pCO2 ABG pO2 ABG PO2/FiO2 Ratio ABG HCO3 ABG O2 Saturation ABG O2 Content ABG Base Excess A-a Gradient Oxyhemoglobin Carboxyhemoglobin Methemoglobin Reduced Hemoglobin Total Hemoglobin O2 Delivery Device O2 Liters/Min Minute Volume Vent Rate Vent Mode FiO2 Tidal Volume PEEP Peak Inspir Pressure Pressure Support Sodium 147 H Potassium 3.7 Chloride 112 H Carbon Dioxide 33 H Anion Gap 2 L BUN 43 H Creatinine 1.10 Estim Creat Clear Calc 57 Estimated GFR > 60 Glucose 145 H POC Capillary Glucose 180 H 141 H Calcium 8.3 L Phosphorus 2.9 Magnesium 2.1 Transferrin 85 L Total Bilirubin 0.3 AST 13 L ALT 11 Alkaline Phosphatase 65 Total Protein 6.0 L Albumin 2.5 L Triglycerides 52 Urine Color Urine Appearance Urine pH Ur Specific [place] Urine Protein Urine Glucose (UA) Urine Ketones Ur Blood (Man) Urine Nitrate Urine Bilirubin Urine Urobilinogen Add Ur Microanalysis Leukocyte Esterase Rfl Urine RBC Urine WBC Ur Squamous Epith Cells Urine Bacteria Urine Casts Granular Casts 01/20/24 01/20/24 01/20/24 05:15 08:44 11:49 WBC RBC Hgb Hct MCV MCH MCHC RDW Plt Count MPV Immature Gran % (Auto) Neut % (Auto) Lymph % (Auto) [place] % (Auto) Eos % (Auto) Baso % (Auto) Lymph # (Auto) [place] # (Auto) Eos # (Auto) Baso # (Auto) Abs Immat Gran (auto) Absolute Neuts (auto) Absolute Nucleated RBC Nucleated RBC % Platelet Estimate Large Platelets Hypochromasia Anisocytosis Macrocytosis Schistocytes PT INR APTT Puncture Site Right radial ABG pH 7.237 L* ABG pCO2 66.6 H* ABG pO2 87.8 ABG PO2/FiO2 Ratio 1.76 ABG HCO3 27.7 H ABG O2 Saturation 94.8 L ABG O2 Content 16.9 ABG Base Excess -1.0 A-a Gradient 193.8 Oxyhemoglobin 96.6 Carboxyhemoglobin 0.5 Methemoglobin 0.3 Reduced Hemoglobin 2.6 Total Hemoglobin 12.4 O2 Delivery Device Ventilator O2 Liters/Min Not Reportable Minute Volume Not Reportable Vent Rate 24 Vent Mode Cmv FiO2 50 Tidal Volume 450 PEEP 10 Peak Inspir Pressure Not Reportable Pressure Support Not Reportable Sodium Potassium Chloride Carbon Dioxide Anion Gap BUN Creatinine Estim Creat Clear Calc Estimated GFR Glucose POC Capillary Glucose 135 H Calcium Phosphorus Magnesium Transferrin Total Bilirubin AST ALT Alkaline Phosphatase Total Protein Albumin Triglycerides Urine Color Yellow Urine Appearance Cloudy H Urine pH 5.5 Ur Specific [place] 1.021 Urine Protein 2+ H Urine Glucose (UA) Negative Urine Ketones Negative Ur Blood (Man) Non-hemolyzed trace Urine Nitrate Negative Urine Bilirubin Negative Urine Urobilinogen 0.2 Add Ur Microanalysis Reviewed Leukocyte Esterase Rfl Trace H Urine RBC 6-10 H Urine WBC 11-20 H Ur Squamous Epith Cells Many H Urine Bacteria None seen Urine Casts >20 Granular Casts Present
--- NOTE | 2024-01-20 16:51 | PM.CNGS ---
Assessment and Plan Assessment and plan (1) Aspiration pneumonia: Qualifiers: Aspiration pneumonia type: unspecified Laterality: bilateral Lung location: lower lobe of lung Qualified Code(s): J69.0 - Pneumonitis due to inhalation of food and vomit Code(s): J69.0 - Pneumonitis due to inhalation of food and vomit Status: Acute Assessment and Plan: multiple recurrent episodes within the last month, agree with need for jejunostomy tube, continue management of vent per ICU team (2) PEG (percutaneous endoscopic gastrostomy) status: Code(s): Z93.1 - Gastrostomy status Status: Acute Assessment and Plan: will need jejunostomy tube, apparently would like to have him transferred to [facility] for placement via interventional radiology, the patient is accepted and awaiting transfer History of Present Illness Consult details Consult date: 01/20/24 Reason for consult: other ( evaluation for jejunostomy tube) Requesting physician: Farhad Rodríguez MD Narrative: The patient is a 68-year-old male with a history of laryngeal cancer presenting to the hospital with recurrent aspiration pneumonia requiring mechanical ventilation. The patient has had multiple episodes of recurrent aspiration requiring mechanical ventilation over last month. The patient is currently being fed through a gastrostomy tube. He is currently tolerating low-dose feeds. All history is obtained via the chart as the patient is intubated and sedated. General surgery is consulted for evaluation of jejunostomy tube placement. Review of Systems Review of Systems: ROS unobtainable: Yes unobtainable due to endotracheal tube PMFSH Past Medical History Medical History Cervical spine disease Constipation Dysarthria Dysphagia Dysphonia Gastrostomy tube dependent GERD (gastroesophageal reflux disease) History of aspiration pneumonia History of throat cancer XRT and surgery Hypothyroid Insomnia Malfunction of gastrostomy tube Primary squamous cell carcinoma of head and neck (~2013) Radiation-induced brachial plexopathy Spina bifida as a child with surgery; residual 'bladder issues' Surgical History Surgical History History of ear, nose, and throat (ENT) surgery PEG (percutaneous endoscopic gastrostomy) status Family History Family History Mother Colon cancer Social History Social History Social History: Lives at home with . Never smoked. No alcohol and drug use. Code status: Full code. Surrogate decision maker: Smoking status: Never smoker Second hand tobacco smoke exposure: No Alcohol intake: never Substance use: never Substance use type: does not use Do You Feel Safe in your Home?: Yes Lack of Transportation: No Lack of Food: Never True Current Housing: I Have Housing Concerned About Future Housing: No Difficulty Paying Gas/Electric Bills: No Difficulty Paying for Meds: No Currently Unemployed: No Education: Bachelor's Degree Difficulty w/ Childcare or Family Care: No Living arrangements: with family Gender identity (if verbalized by the patient): Male Sexual Orientation (if Verbalized by the Patient): Straight or Heterosexual Spiritual care concerns: No Agree to blood products: Yes Meds Home Medications and Allergies Home Medications Medication Instructions Recorded Confirmed Type zolpidem 10 mg tablet 5 mg feeding tube HS PRN Sleep 09/07/21 01/15/24 History finasteride 5 mg tablet (Proscar) 5 mg feeding tube DAILY 03/05/22 01/15/24 History diazepam 10 mg tablet (Valium) 20 mg PO HS 05/19/22 01/15/24 History ondansetron HCl 4 mg tablet 4 mg feeding tube Q4H PRN nausea 05/19/22 01/15/24 History and [id number] amlodipine 5 mg tablet (Norvasc) 5 mg feeding tube DAILY #30 tabs 01/13/24 01/15/24 Rx acetaminophen 325 mg tablet 325 mg PO Q4H PRN Pain (Scale 01/15/24 01/16/24 History Score 1-3) miconazole nitrate 2 % topical 1 applic topical Q12H 01/15/24 01/15/24 History cream nystatin 100,000 unit/mL oral 5 ml PO TID 01/15/24 01/15/24 History suspension polyethylene glycol 3350 17 gram 17 g feeding tube BID PRN 01/15/24 01/15/24 History oral powder packet (Miralax) Constipation zolpidem 5 mg tablet 5 mg feeding tube HS 01/15/24 01/15/24 History Allergies Allergy/AdvReac Type Severity Reaction Status Date / Time No Known Allergies Allergy Verified 01/15/24 18:49 Vital Signs Vital Signs - 24 hr 01/19/24 17:02 01/19/24 18:00 01/19/24 18:00 Temperature Pulse Rate 101 H 99 99 Respiratory Rate 26 H 26 H Blood Pressure Pulse Oximetry 96 Oxygen Delivery Mechanical Ventilation Fraction of Inspired Oxygen 60 01/19/24 18:00 01/19/24 18:00 01/19/24 20:00 Temperature 37.6 C H Pulse Rate 99 99 100 Respiratory Rate 26 H 24 H Blood Pressure 137/56 L Pulse Oximetry 96 100 Oxygen Delivery Mechanical Ventilation Fraction of Inspired Oxygen 60 01/19/24 20:00 01/19/24 20:00 01/19/24 20:00 Temperature 37.2 C Pulse Rate 100 100 Respiratory Rate 24 H Blood Pressure 162/66 H Pulse Oximetry 100 Oxygen Delivery Fraction of Inspired Oxygen 60 01/19/24 19:00 01/19/24 19:00 01/19/24 20:00 Temperature Pulse Rate 98 98 100 Respiratory Rate 25 H 25 H 24 H Blood Pressure Pulse Oximetry Oxygen Delivery Fraction of Inspired Oxygen 01/19/24 20:00 01/19/24 21:00 01/19/24 21:00 Temperature Pulse Rate 100 99 99 Respiratory Rate 24 H 25 H 25 H Blood Pressure Pulse Oximetry Oxygen Delivery Fraction of Inspired Oxygen 01/19/24 21:00 01/19/24 21:05 01/19/24 19:00 Temperature 37.3 C Pulse Rate 99 96 98 Respiratory Rate 27 H 23 H Blood Pressure 151/63 H Pulse Oximetry 98 96 Oxygen Delivery Mechanical Ventilation Fraction of Inspired Oxygen 60 01/19/24 19:01 01/19/24 19:15 01/19/24 19:30 Temperature 37.3 C 37.2 C 37.2 C Pulse Rate 97 96 98 Respiratory Rate 24 H 25 H 23 H Blood Pressure Pulse Oximetry 96 98 99 Oxygen Delivery Fraction of Inspired Oxygen 01/19/24 19:45 01/19/24 20:00 01/19/24 20:01 Temperature 37.2 C 37.2 C 37.2 C Pulse Rate 98 99 100 Respiratory Rate 25 H 24 H 25 H Blood Pressure 162/66 H Pulse Oximetry 100 100 100 Oxygen Delivery Fraction of Inspired Oxygen 01/19/24 20:15 01/19/24 20:30 01/19/24 20:40 Temperature 37.2 C 37.3 C 37.3 C Pulse Rate 100 100 101 H Respiratory Rate 24 H 26 H 28 H Blood Pressure 154/66 H Pulse Oximetry 100 100 100 Oxygen Delivery Fraction of Inspired Oxygen 01/19/24 20:45 01/19/24 20:46 01/19/24 21:00 Temperature 37.3 C 37.3 C 37.3 C Pulse Rate 101 H 100 102 H Respiratory Rate 25 H 25 H 24 H Blood Pressure 154/66 H 157/66 H Pulse Oximetry 100 100 100 Oxygen Delivery Fraction of Inspired Oxygen 01/19/24 21:01 01/19/24 21:15 01/19/24 21:16 Temperature 37.3 C 37.3 C 37.3 C Pulse Rate 100 100 99 Respiratory Rate 24 H 25 H 24 H Blood Pressure 155/69 H Pulse Oximetry 100 Oxygen Delivery Fraction of Inspired Oxygen 01/19/24 22:00 01/19/24 22:00 01/19/24 22:00 Temperature Pulse Rate 98 97 97 Respiratory Rate 25 H 25 H Blood Pressure 148/64 H Pulse Oximetry 100 Oxygen Delivery Fraction of Inspired Oxygen 01/19/24 22:00 01/19/24 23:26 01/20/24 00:00 Temperature Pulse Rate 97 100 104 H Respiratory Rate 25 H Blood Pressure Pulse Oximetry 98 Oxygen Delivery Mechanical Ventilation Fraction of Inspired Oxygen 60 01/20/24 00:45 01/20/24 00:45 01/19/24 23:00 Temperature Pulse Rate 108 H 96 Respiratory Rate 25 H 25 H Blood Pressure Pulse Oximetry Oxygen Delivery Mechanical Ventilation Fraction of Inspired Oxygen 55 55 01/19/24 23:00 01/20/24 00:00 01/20/24 00:00 Temperature Pulse Rate 96 103 H 103 H Respiratory Rate 25 H 24 H 24 H Blood Pressure Pulse Oximetry Oxygen Delivery Fraction of Inspired Oxygen 01/20/24 00:45 01/20/24 00:45 01/20/24 01:00 Temperature Pulse Rate 108 H 108 H 110 H Respiratory Rate 25 H 25 H 27 H Blood Pressure Pulse Oximetry Oxygen Delivery Fraction of Inspired Oxygen 01/20/24 01:00 01/20/24 01:15 01/20/24 01:15 Temperature Pulse Rate 110 H 110 H 110 H Respiratory Rate 27 H 25 H 25 H Blood Pressure Pulse Oximetry Oxygen Delivery Fraction of Inspired Oxygen 01/20/24 01:30 01/20/24 01:30 01/20/24 01:58 Temperature 38.3 C H Pulse Rate 112 H 112 H Respiratory Rate 27 H 27 H Blood Pressure Pulse Oximetry Oxygen Delivery Fraction of Inspired Oxygen 01/19/24 21:30 01/19/24 21:31 01/19/24 21:45 Temperature 37.3 C 37.3 C 37.4 C Pulse Rate 98 98 96 Respiratory Rate 27 H 22 H 24 H Blood Pressure 153/55 H 138/60 Pulse Oximetry Oxygen Delivery Fraction of Inspired Oxygen 01/19/24 21:46 01/19/24 22:00 01/19/24 22:01 Temperature 37.4 C 37.5 C 37.5 C Pulse Rate 94 95 95 Respiratory Rate 24 H 24 H 24 H Blood Pressure 148/64 H Pulse Oximetry Oxygen Delivery Fraction of Inspired Oxygen 01/19/24 22:15 01/19/24 22:16 01/19/24 22:30 Temperature 37.6 C H 37.6 C H 37.7 C H Pulse Rate 97 97 98 Respiratory Rate 19 24 H 24 H Blood Pressure 143/71 H Pulse Oximetry Oxygen Delivery Fraction of Inspired Oxygen 01/19/24 22:31 01/19/24 22:45 01/19/24 22:46 Temperature 37.7 C H 37.8 C H 37.8 C H Pulse Rate 100 97 97 Respiratory Rate 22 H 25 H 25 H Blood Pressure 146/61 H 139/72 Pulse Oximetry Oxygen Delivery Fraction of Inspired Oxygen 01/19/24 23:00 01/19/24 23:01 01/19/24 23:15 Temperature 37.8 C H 37.8 C H 37.9 C H Pulse Rate 96 95 96 Respiratory Rate 24 H 24 H 21 H Blood Pressure 129/51 L Pulse Oximetry Oxygen Delivery Fraction of Inspired Oxygen 01/19/24 23:16 01/19/24 23:30 01/19/24 23:31 Temperature 37.9 C H 38.0 C H 38.0 C H Pulse Rate 97 101 H 95 Respiratory Rate 25 H 24 H 24 H Blood Pressure 150/65 H 138/71 Pulse Oximetry Oxygen Delivery Fraction of Inspired Oxygen 01/19/24 23:45 01/19/24 23:46 01/20/24 00:00 Temperature 38.1 C H 38.1 C H 38.1 C H Pulse Rate 100 100 103 H Respiratory Rate 25 H 24 H 24 H Blood Pressure 144/60 H 177/73 H Pulse Oximetry Oxygen Delivery Fraction of Inspired Oxygen 01/20/24 00:01 01/20/24 00:15 01/20/24 00:16 Temperature 38.1 C H 38.2 C H 38.2 C H Pulse Rate 104 H 110 H 107 H Respiratory Rate 25 H 22 H 24 H Blood Pressure 188/87 H Pulse Oximetry Oxygen Delivery Fraction of Inspired Oxygen 01/20/24 00:30 01/20/24 00:31 01/20/24 00:45 Temperature 38.2 C H 38.2 C H 38.3 C H Pulse Rate 109 H 108 H 108 H Respiratory Rate 27 H 23 H 25 H Blood Pressure 161/91 H 169/73 H Pulse Oximetry Oxygen Delivery Fraction of Inspired Oxygen 01/20/24 00:46 01/20/24 01:00 01/20/24 01:01 Temperature 38.3 C H 38.3 C H 38.3 C H Pulse Rate 109 H 106 H 111 H Respiratory Rate 26 H 26 H 27 H Blood Pressure 169/71 H Pulse Oximetry 100 100 Oxygen Delivery Fraction of Inspired Oxygen 01/20/24 01:15 01/20/24 01:16 01/20/24 01:30 Temperature 38.3 C H 38.3 C H 38.4 C H Pulse Rate 111 H 111 H 113 H Respiratory Rate 26 H 25 H 25 H Blood Pressure 140/77 153/75 H Pulse Oximetry 97 97 96 Oxygen Delivery Fraction of Inspired Oxygen 01/20/24 01:31 01/20/24 02:21 01/20/24 02:22 Temperature 38.4 C H Pulse Rate 112 H 109 H 107 H Respiratory Rate 27 H 26 H Blood Pressure Pulse Oximetry 96 96 Oxygen Delivery Mechanical Ventilation Fraction of Inspired Oxygen 60 01/20/24 02:00 01/20/24 02:00 01/20/24 02:00 Temperature Pulse Rate 108 H 110 H 110 H Respiratory Rate 25 H 25 H Blood Pressure Pulse Oximetry Oxygen Delivery Fraction of Inspired Oxygen 01/20/24 01:45 01/20/24 01:46 01/20/24 02:00 Temperature 38.3 C H 38.3 C H 38.3 C H Pulse Rate 112 H 113 H 109 H Respiratory Rate 25 H 26 H 24 H Blood Pressure 150/71 H 140/71 Pulse Oximetry 96 96 95 Oxygen Delivery Fraction of Inspired Oxygen 01/20/24 02:01 01/20/24 02:15 01/20/24 02:16 Temperature 38.3 C H 38.3 C H 38.3 C H Pulse Rate 110 H 109 H 108 H Respiratory Rate 25 H 25 H 25 H Blood Pressure 129/75 Pulse Oximetry 96 96 96 Oxygen Delivery Fraction of Inspired Oxygen 01/20/24 03:34 01/20/24 03:34 01/20/24 03:35 Temperature Pulse Rate 93 93 93 Respiratory Rate 24 H 24 H 24 H Blood Pressure Pulse Oximetry Oxygen Delivery Fraction of Inspired Oxygen 01/20/24 03:35 01/20/24 02:58 01/20/24 03:45 Temperature 38.3 C H Pulse Rate 93 Respiratory Rate 24 H Blood Pressure Pulse Oximetry Oxygen Delivery Fraction of Inspired Oxygen 55 01/20/24 03:47 01/20/24 02:30 01/20/24 02:31 Temperature 38.2 C H 38.2 C H Pulse Rate 93 105 H 104 H Respiratory Rate 24 H 25 H 25 H Blood Pressure 101/61 Pulse Oximetry 98 95 95 Oxygen Delivery Mechanical Ventilation Fraction of Inspired Oxygen 55 01/20/24 02:45 01/20/24 02:46 01/20/24 03:00 Temperature 38.1 C H 38.1 C H 38.0 C H Pulse Rate 104 H 102 H 98 Respiratory Rate 24 H 24 H 24 H Blood Pressure 102/48 L 100/51 L Pulse Oximetry 95 95 95 Oxygen Delivery Fraction of Inspired Oxygen 01/20/24 03:01 01/20/24 03:15 01/20/24 03:16 Temperature 38.0 C H 37.9 C H 37.9 C H Pulse Rate 97 95 94 Respiratory Rate 24 H 24 H 24 H Blood Pressure 101/50 L Pulse Oximetry 95 95 95 Oxygen Delivery Fraction of Inspired Oxygen 01/20/24 03:30 01/20/24 03:31 01/20/24 03:45 Temperature 37.9 C H 37.9 C H 37.8 C H Pulse Rate 93 94 93 Respiratory Rate 24 H 24 H 24 H Blood Pressure 105/51 L 108/56 L Pulse Oximetry 95 96 98 Oxygen Delivery Fraction of Inspired Oxygen 01/20/24 03:46 01/20/24 04:00 01/20/24 04:01 Temperature 37.8 C H Pulse Rate 93 94 100 Respiratory Rate 24 H Blood Pressure Pulse Oximetry 98 Oxygen Delivery Fraction of Inspired Oxygen 01/20/24 04:00 01/20/24 04:01 01/20/24 04:15 Temperature 37.8 C H 37.8 C H 37.7 C H Pulse Rate 93 93 96 Respiratory Rate 25 H 24 H 25 H Blood Pressure 118/60 123/71 Pulse Oximetry 100 100 100 Oxygen Delivery Fraction of Inspired Oxygen 01/20/24 04:16 01/20/24 04:30 01/20/24 04:31 Temperature 37.7 C H 37.7 C H 37.7 C H Pulse Rate 96 97 96 Respiratory Rate 24 H 24 H 24 H Blood Pressure 129/67 Pulse Oximetry 100 100 100 Oxygen Delivery Fraction of Inspired Oxygen 01/20/24 04:45 01/20/24 05:22 01/20/24 04:46 Temperature 37.7 C H 37.7 C H Pulse Rate 98 97 96 Respiratory Rate 24 H 24 H Blood Pressure 123/64 Pulse Oximetry 100 100 100 Oxygen Delivery Mechanical Ventilation Fraction of Inspired Oxygen 60 01/20/24 05:00 01/20/24 05:01 01/20/24 05:15 Temperature 37.7 C H 37.7 C H 37.8 C H Pulse Rate 98 97 98 Respiratory Rate 24 H 24 H 24 H Blood Pressure 134/64 144/70 H Pulse Oximetry 100 100 100 Oxygen Delivery Fraction of Inspired Oxygen 01/20/24 05:16 01/20/24 05:30 01/20/24 05:31 Temperature 37.8 C H 37.8 C H 37.8 C H Pulse Rate 97 98 98 Respiratory Rate 24 H 24 H 24 H Blood Pressure 121/67 Pulse Oximetry 100 Oxygen Delivery Fraction of Inspired Oxygen 01/20/24 05:45 01/20/24 05:46 01/20/24 06:00 Temperature 37.8 C H 37.8 C H Pulse Rate 99 97 96 Respiratory Rate 24 H 24 H 24 H Blood Pressure 114/65 Pulse Oximetry Oxygen Delivery Fraction of Inspired Oxygen 01/20/24 06:00 01/20/24 06:34 01/20/24 06:34 Temperature Pulse Rate 96 96 Respiratory Rate 24 H Blood Pressure Pulse Oximetry Oxygen Delivery Fraction of Inspired Oxygen 50 01/20/24 06:00 01/20/24 06:01 01/20/24 06:15 Temperature 37.8 C H 37.8 C H 37.8 C H Pulse Rate 97 96 98 Respiratory Rate 24 H 24 H 24 H Blood Pressure 121/59 L 105/68 Pulse Oximetry Oxygen Delivery Fraction of Inspired Oxygen 01/20/24 06:16 01/20/24 06:30 01/20/24 06:31 Temperature 37.8 C H 37.8 C H 37.8 C H Pulse Rate 97 97 98 Respiratory Rate 24 H 24 H 24 H Blood Pressure 119/77 Pulse Oximetry Oxygen Delivery Fraction of Inspired Oxygen 01/20/24 06:30 01/20/24 06:30 01/20/24 08:02 Temperature Pulse Rate 97 97 100 Respiratory Rate 24 H 24 H Blood Pressure Pulse Oximetry 100 Oxygen Delivery Mechanical Ventilation Fraction of Inspired Oxygen 50 01/20/24 08:02 01/20/24 08:00 01/20/24 08:07 Temperature Pulse Rate 100 102 H Respiratory Rate 24 H 24 H Blood Pressure Pulse Oximetry Oxygen Delivery Fraction of Inspired Oxygen 50 01/20/24 08:07 01/20/24 08:00 01/20/24 08:00 Temperature 37.8 C H Pulse Rate 102 H 102 H 100 Respiratory Rate 24 H 24 H 24 H Blood Pressure 131/65 Pulse Oximetry 100 100 Oxygen Delivery Mechanical Ventilation Fraction of Inspired Oxygen 50 01/20/24 08:34 01/20/24 08:00 01/20/24 10:00 Temperature Pulse Rate 95 102 H 97 Respiratory Rate 24 H Blood Pressure Pulse Oximetry Oxygen Delivery Fraction of Inspired Oxygen 01/20/24 10:00 01/20/24 10:49 01/20/24 10:02 Temperature 37.9 C H 38.1 C H Pulse Rate 99 98 Respiratory Rate 24 H 24 H Blood Pressure 127/59 L Pulse Oximetry 100 Oxygen Delivery Fraction of Inspired Oxygen 01/20/24 10:02 01/20/24 11:08 01/20/24 11:49 Temperature 38.1 C H Pulse Rate 98 96 Respiratory Rate 24 H Blood Pressure Pulse Oximetry 98 Oxygen Delivery Mechanical Ventilation Fraction of Inspired Oxygen 50 01/20/24 12:05 01/20/24 12:05 01/20/24 12:00 Temperature Pulse Rate 95 95 952 H Respiratory Rate 24 H 24 H 24 H Blood Pressure Pulse Oximetry 93 Oxygen Delivery Mechanical Ventilation Fraction of Inspired Oxygen 50 01/20/24 12:00 01/20/24 12:00 01/20/24 12:00 Temperature 38.1 C H Pulse Rate 95 97 Respiratory Rate 24 H Blood Pressure 98/49 L Pulse Oximetry 93 Oxygen Delivery Fraction of Inspired Oxygen 50 01/20/24 13:29 01/20/24 13:29 01/20/24 14:03 Temperature Pulse Rate 94 94 97 Respiratory Rate 24 H 24 H Blood Pressure Pulse Oximetry 98 Oxygen Delivery Mechanical Ventilation Fraction of Inspired Oxygen 50 01/20/24 14:03 01/20/24 13:58 01/20/24 14:00 Temperature 37.8 C H Pulse Rate 97 97 97 Respiratory Rate 24 H 24 H 24 H Blood Pressure 128/62 Pulse Oximetry 99 Oxygen Delivery Fraction of Inspired Oxygen 01/20/24 14:00 01/20/24 16:00 01/20/24 16:47 Temperature Pulse Rate 97 98 100 Respiratory Rate Blood Pressure Pulse Oximetry 99 Oxygen Delivery Mechanical Ventilation Fraction of Inspired Oxygen 50 Exam Const: General: no acute distress, ill appearing and underweight HENMT: Head: normal to inspection, normocephalic and atraumatic Eyes: General: appearance normal, both eyes and all related structures Neck: Neck: normal visual inspection and no lymphadenopathy Resp: Auscultation: diminished lung sounds Cardio: Rate: regular rate Rhythm: regular rhythm GI: Inspection: normal to inspection and non-distended GI Palp: No abdominal tenderness Other: Gastrostomy tube clean, dry, and intact Skin: General skin exam: normal color and no rashes or lesions noted Neuro: Other: intubated and sedated Extrem: General: normal to inspection and full ROM Results Labs 01/20/24 04:16 01/20/24 04:16 Labs: Abnormal lab results 01/19/24 01/20/24 01/20/24 Range/Units 17:13 00:26 04:16 RBC 2.95 L (4.6-6.20) M/mm3 Hgb 9.5 L (14.0-18.0) g/dL Hct 32.0 L (42.0-52.0) % MCV 108.5 H (80-100) fl MCHC 29.7 L (32-36) g/dl MPV 12.7 H (7.4-10.4) fl Immature Gran % (Auto) 0.6 H (0-0.5) % Neut % (Auto) 90.3 H (45.5-73.1) % Lymph % (Auto) 4.4 L (18.3-44.2) % Lymph # (Auto) 0.28 L (0.9-3.2) K/mm3 Abs Immat Gran (auto) 0.04 H (0.00-0.031) K/mm3 PT 15.0 H (11.1-14.7) Seconds APTT 44.7 H (22.3-36.8) Seconds ABG pH (7.350-7.450) ABG pCO2 (35.0-45.0) mmHg ABG HCO3 (22.0-26.0) mEq/l ABG O2 Saturation (95.0-100.0) % Sodium 147 H (137-145) mmol/L Chloride 112 H (98-107) mmol/L Carbon Dioxide 33 H (22-30) mmol/L Anion Gap 2 L (4-12) mmol/L BUN 43 H (9-20) mg/dL Glucose 145 H (65-110) mg/dL POC Capillary Glucose 180 H 141 H (65-105) mg/dl Calcium 8.3 L (8.4-10.2) mg/dL Transferrin 85 L (206-381) mg/dL AST 13 L (17-59) U/L Total Protein 6.0 L (6.3-8.2) g/dL Albumin 2.5 L (3.5-5.1) g/dL Urine Appearance (Clear) Urine Protein (Negative) mg/dL Leukocyte Esterase Rfl (Negative) JALEESA/UL Urine RBC (0-2) /hpf Urine WBC (0-3) /hpf Ur Squamous Epith Cells (Few) /hpf 01/20/24 01/20/24 01/20/24 Range/Units 05:15 08:44 11:49 RBC (4.6-6.20) M/mm3 Hgb (14.0-18.0) g/dL Hct (42.0-52.0) % MCV (80-100) fl MCHC (32-36) g/dl MPV (7.4-10.4) fl Immature Gran % (Auto) (0-0.5) % Neut % (Auto) (45.5-73.1) % Lymph % (Auto) (18.3-44.2) % Lymph # (Auto) (0.9-3.2) K/mm3 Abs Immat Gran (auto) (0.00-0.031) K/mm3 PT (11.1-14.7) Seconds APTT (22.3-36.8) Seconds ABG pH 7.237 L* (7.350-7.450) ABG pCO2 66.6 H* (35.0-45.0) mmHg ABG HCO3 27.7 H (22.0-26.0) mEq/l ABG O2 Saturation 94.8 L (95.0-100.0) % Sodium (137-145) mmol/L Chloride (98-107) mmol/L Carbon Dioxide (22-30) mmol/L Anion Gap (4-12) mmol/L BUN (9-20) mg/dL Glucose (65-110) mg/dL POC Capillary Glucose 135 H (65-105) mg/dl Calcium (8.4-10.2) mg/dL Transferrin (206-381) mg/dL AST (17-59) U/L Total Protein (6.3-8.2) g/dL Albumin (3.5-5.1) g/dL Urine Appearance Cloudy H (Clear) Urine Protein 2+ H (Negative) mg/dL Leukocyte Esterase Rfl Trace H (Negative) JALEESA/UL Urine RBC 6-10 H (0-2) /hpf Urine WBC 11-20 H (0-3) /hpf Ur Squamous Epith Cells Many H (Few) /hpf Diabetes panel 01/20/24 Range/Units 04:16 Sodium 147 H (137-145) mmol/L Potassium 3.7 (3.4-5.0) mmol/L Chloride 112 H (98-107) mmol/L Carbon Dioxide 33 H (22-30) mmol/L BUN 43 H (9-20) mg/dL Creatinine 1.10 (0.7-1.3) mg/dL Glucose 145 H (65-110) mg/dL Calcium 8.3 L (8.4-10.2) mg/dL AST 13 L (17-59) U/L ALT 11 (6-50) U/L Alkaline Phosphatase 65 (38-126) U/L Total Protein 6.0 L (6.3-8.2) g/dL Albumin 2.5 L (3.5-5.1) g/dL Triglycerides 52 (<150) mg/dL Calcium panel 01/20/24 Range/Units 04:16 Calcium 8.3 L (8.4-10.2) mg/dL Phosphorus 2.9 (2.5-4.5) mg/dL Albumin 2.5 L (3.5-5.1) g/dL Pituitary panel 01/20/24 Range/Units 04:16 Sodium 147 H (137-145) mmol/L Potassium 3.7 (3.4-5.0) mmol/L Chloride 112 H (98-107) mmol/L Carbon Dioxide 33 H (22-30) mmol/L BUN 43 H (9-20) mg/dL Creatinine 1.10 (0.7-1.3) mg/dL Glucose 145 H (65-110) mg/dL Calcium 8.3 L (8.4-10.2) mg/dL Adrenal panel 01/20/24 Range/Units 04:16 Sodium 147 H (137-145) mmol/L Potassium 3.7 (3.4-5.0) mmol/L Chloride 112 H (98-107) mmol/L Carbon Dioxide 33 H (22-30) mmol/L BUN 43 H (9-20) mg/dL Creatinine 1.10 (0.7-1.3) mg/dL Glucose 145 H (65-110) mg/dL Calcium 8.3 L (8.4-10.2) mg/dL Total Bilirubin 0.3 (0.2-1.3) mg/dL AST 13 L (17-59) U/L ALT 11 (6-50) U/L Alkaline Phosphatase 65 (38-126) U/L Total Protein 6.0 L (6.3-8.2) g/dL Albumin 2.5 L (3.5-5.1) g/dL All other labs normal.
[2024-01-20 17:48] LABS: Glucose Point of Care 97 mg/dl (65-105)
--- NOTE | 2024-01-20 22:07 | PC.NURSE ---
[facility] updated per ventilator settings, current labs, vitals, and drips. No bed available at this time.
[2024-01-21] VITALS (55 sets, daily range): BP systolic 70–167; BP diastolic 32–89; PULSE 75–147; RESP 17–27; TEMP 36.9–37.7; O2SAT 92–100
[2024-01-21 00:09] LABS: Glucose Point of Care 123 mg/dl (65-105)
[2024-01-21] MEDS: IPRATROPIUM 0.5 MG/ALBUTEROL SULFATE 2.5 MG AMPUL.NEB 3 ML INHALATION ×2 (02:25→08:10)
[2024-01-21] MEDS: FENTANYL 2,500MCG/NS250ML(*CRX 2,500 MCG/250 ML BAG IV CONT (04:53)
[2024-01-21] MEDS: MIDAZOLAM 100MG/NS 100ML(*CRX) 100 MG/100 ML BAG IV CONT (04:54)
[2024-01-21 05:04] LABS: Basophils Percent Auto 0.3 % (0.2-1.2); Eosinophils Absolute Auto 0.1 K/mm3 (0-0.3); Eosinophils Percent Auto 1.1 % (0-4.4); Hematocrit 30.1 % (42.0-52.0); Hemoglobin 9.2 g/dL (14.0-18.0); Immature Granulocyte Absolute 0.03 K/mm3 (0.00-0.031); Immature Granulocyte Percent A 0.5 % (0-0.5); Lymphocytes Absolute Auto 0.45 K/mm3 (0.9-3.2); Lymphocytes Percent Auto 6.8 % (18.3-44.2); Mean Corpuscular HGB Conc 30.6 g/dl (32-36); Mean Corpuscular Hemoglobin 31.7 pg (26-34); Mean Corpuscular Volume 103.8 fl (80-100); Mean Platelet Volume 12.7 fl (7.4-10.4); Monocytes Absolute Auto 0.3 K/mm3 (0.1-0.6); Monocytes Percent Auto 4.5 % (2.6-8.5); Neutrophils Absolute Auto 5.8 K/mm3 (1.3-6.7); Neutrophils Percent Auto 86.8 % (45.5-73.1); Platelet Count Result 148 k/mm3 (150-375); White Blood Count 6.6 K/mm3 (4.5-10.0)
[2024-01-21 05:17] LABS: Anion Gap 4 mmol/L (4-12); Blood Urea Nitrogen 52 mg/dL (9-20); Calcium 8.7 mg/dL (8.4-10.2); Carbon Dioxide 31 mmol/L (22-30); Chloride 112 mmol/L (98-107); Estimated CRCL calculation 66 ml/min; Estimated Glomerular Filt Rate > 60; Glucose 145 mg/dL (65-110); Phosphorus 2.1 mg/dL (2.5-4.5); Potassium 3.3 mmol/L (3.4-5.0); Sodium 147 mmol/L (137-145)
[2024-01-21 05:32] LABS: Alveolar/Arterial O2 Gradient 129.9 mmHg; Base Excess ABG 3.6 mEq/l (+/-2.0); Carboxyhemoglobin 0.6 % THb (0-2.0); Fractional Inspired Oxygen 35 %; HCO3 ABG 28.9 mEq/l (22.0-26.0); Methemoglobin ABG 0.1 %THb (0-1.5); Oxygen Content ABG 14.4 %vol (16.0-22.0); Oxygen Saturation ABG 92.7 % (95.0-100.0); Oxyhemoglobin 94.6 % THb (90.0-100.0); PCO2 ABG 47.1 mmHg (35.0-45.0); PO2 ABG 64.9 mmHg (80.0-100.0); PO2 FiO2 Ratio Arterial Blood 1.85 %; Reduced Hemoglobin 4.7 %THb (0-5.0); Total Hemoglobin 10.8 g/dL (12.0-18.0); pH ABG 7.406 (7.350-7.450)
[2024-01-21 05:33] LABS: Device VENTILATOR; Modified Allen's Test Unable to perform; Site Drawn RIGHT RADIAL
[2024-01-21 05:34] LABS: Arterial Blood Gas PEEP 10 cmH2O; Arterial Blood Gas Tidal Volume 480 ml; Arterial Blood Gas Vent Mode CMV; Arterial Blood Gas Ventilator rate 24 /MIN
[2024-01-21] MEDS: METOCLOPRAMIDE HCL INJ 10 MG/2 ML VIAL 5 MG IV PUSH ×2 (05:56→17:08)
[2024-01-21] MEDS: CEFEPIME 2 GM/NS 50 ML 2 GM/50 ML BAG IVPB ×3 (05:58→20:38)
[2024-01-21] MEDS: metroNIDAZOLE 500 MG/ISO 100ML 500 MG/100 ML BAG 100 MG IVPB ×3 (05:58→20:46)
[2024-01-21] MEDS: CENTRAL LINE FLUSH 10 ML IV PUSH ×3 (06:03→20:47)
--- NOTE | 2024-01-21 06:41 | ECG_ITS ---
Test Date: 2024-01-21 06:45:25 Measurements Intervals [place] Rate: 148 P: 0 W[place]: 0 QRS: -66 QRSD: 93 T: 60 QT: 243 QTc: 382 Interpretive Statements SUPRAVENTRICULAR TACHYCARDIA LEFT ANTERIOR FASCICULAR BLOCK [QRS AXIS <= -45, QR IN I, RS IN II] ANTEROSEPTAL MYOCARDIAL INFARCTION [40+ ms Q WAVE IN V1-V4], OF INDETERMINATE AGE Compared to ECG 01/15/2024 20:14:10 SUPRAVENTRICULAR TACHYCARDIA NOW PRESENT Electronically Signed On 01-21-2024 15:25:45 GENETICIST by Juan F Joyce M.D.
[2024-01-21] MEDS: POTASSIUM CHLORIDE 20 MEQ PACKET (FOR LIQUID) 40 MEQ FEED TUBE (07:01)
[2024-01-21] MEDS: METOPROLOL TARTRATE INJ 5 MG/5 ML VIAL IV PUSH ×2 (07:01→07:37)
[2024-01-21 07:09] LABS: Magnesium 2.2 mg/dL (1.6-2.3)
--- NOTE | 2024-01-21 08:44 | P.PNINT_ITS ---
Progress Note: A&P Assessment and Plan (1) Acute hypoxic respiratory failure: Code(s): J96.01 - Acute respiratory failure with hypoxia Status: Acute Assessment and Plan: 01/17: Patient intubated after being transferred from intermediate Unit after failing BiPAP and high-flow therapy -chest x-ray shows worsening bilateral pneumonia, ETT adjusted -ABGs reviewed, ventilator adjusted, tidal volume increased to 480, decrease PEEP to 10 decrease rate to 22 -continue bronchodilators -continue cefepime and Flagyl -sedated with fentanyl and Versed infusion, maintain RASS of 0 to -2, daily SBT and SAT (2) Aspiration pneumonia: Code(s): J69.0 - Pneumonitis due to inhalation of food and vomit Status: Acute Assessment and Plan: See above (3) Hypertension: Code(s): I10 - Essential (primary) hypertension Status: Acute Assessment and Plan: Discontinue amlodipine as patient is now sedated (4) Electrolyte abnormality: Code(s): E87.8 - Other disorders of electrolyte and fluid balance, not elsewhere classified Status: Acute Assessment and Plan: Replace potassium and phosphorous Continue increased free water flush (5) Dysphagia: Code(s): R13.10 - Dysphagia, unspecified Status: Acute Assessment and Plan: Patient has had recurrent aspirations requiring antibiotic treatment and multiple intubations in recent past Patient evaluated by GI and initially a gastric emptying study was planned but patient is now intubated unable to complete the study GI doctor recommended GJ or jejunostomy tube I spoke to Radiology and they are unable to perform GJ tube insertion here Discussed with general surgery and they can do open jejunostomy tube but recommend GJ tube insertion by Radiology or Gastroenterology if possible Patient receives his care by Gastroenterology and was noted [facility]. I spoke to patient's and discuss different options and she would like patient to be transferred to [facility] or [facility] so the solar energy systems engineer there who sees the patient regularly can proceed with the procedure. I will call and attempt to transfer patient. Currently on trickle tube feeds and TPN. I will advance tube feeds as tolerated and if patient tolerates tube feeds at a decent rate will discontinue TPN. 01/20 patient tolerating tube feeds at 50 mL/hour TPN has been turned off. Patient awaits transfer to [facility] for GJ tube placement (6) Sinus tachycardia: Code(s): R00.0 - Tachycardia, unspecified Status: Acute Assessment and Plan: Patient given IV metoprolol. Will give fluid bolus and also morphine to see if this is secondary to hypovolemia or pain. Plan DVT prophylaxis: Lovenox Stress ulcer prophylaxis: Protonix Nutrition: Continue tube feeds at 50 mL/hour Code Status: Full code Critical Care Time Spent: 35 minutes Discussed with patient's at bedside updated with patient's condition and plan of care. I discussed options of transfer to [facility] or [facility] for GJ tube placement by Radiology or gastroenterology versus open jejunostomy tube insertion [facility]. She states the patient receives his care at [facility] by Gastroenterology and would like patient to be transferred there for procedure to be done there. She verbalized understanding of risks and benefits of transfer and once patient transferred if possible 01/20 patient has been accepted at [facility] and is waiting for transfer once a bed is available Due to a high probability of clinically significant, life threatening deterioration, the patient required my highest level of preparedness to intervene emergently and I personally spent this critical care time directly and personally managing the patient. This critical care time included obtaining a history; examining the patient; pulse oximetry; ordering and review of studies; arranging urgent treatment with development of a management plan; evaluation of patient's response to treatment; frequent reassessment; and discussions with other providers. It was exclusive of separately billable procedures and treating other patients and teaching time. Please see Assessment and Plan section and the rest of the note for further information on patient assessment and treatment This dictation may have been done utilizing a voice recognition system. Attempts have been made to correct errors. However, there may be uncorrected grammatical, spelling, and recognitions errors present. Subjective Date/time seen: 01/21/24 Overnight events reviewed. Afebrile Continues to be on mechanical ventilation 35% FiO2 10 of PEEP Sinus tachycardia on the monitor Continues to be sedated with fentanyl Versed Other Vitals acceptable Review of Systems Review of Systems: ROS unobtainable: Yes unobtainable due to endotracheal tube, unobtainable due to medical condition and unobtainable due to mental status Exam Narrative: General: Intubated and sedated in no acute distress HEENT:? Pupils equal and reactive, sclera is clear, ETT in place Neck:? Supple Respiratory:? Coarse breath sounds bilaterally, greater and lower lobes. Decreased breath sounds at lower lobes, no wheezing, adequate air entry Cardiac:? S1-S2 normal, sinus tachycardia Abdomen:? Soft, nontender, nondistended, hypoactive bowel sounds, PEG tube in place Extremities: Trace edema bilaterally, the pulse Neuro:? Patient is intubated, sedated, tries to open his eyes on stimulation but does not follow any commands Skin:? Trauma and dry, pallor noted Psych:? Unable to assess at this time Objective Data Vital Signs Vital Signs: Vital Signs - 24 hr 01/20/24 10:00 01/20/24 10:00 01/20/24 10:49 Temperature 37.9 C H 38.1 C H Pulse Rate 97 99 Respiratory Rate 24 H Blood Pressure 127/59 L Pulse Oximetry 100 Oxygen Delivery Fraction of Inspired Oxygen 01/20/24 10:02 01/20/24 10:02 01/20/24 11:08 Temperature Pulse Rate 98 98 96 Respiratory Rate 24 H 24 H Blood Pressure Pulse Oximetry 98 Oxygen Delivery Mechanical Ventilation Fraction of Inspired Oxygen 50 01/20/24 11:49 01/20/24 12:05 01/20/24 12:05 Temperature 38.1 C H Pulse Rate 95 95 Respiratory Rate 24 H 24 H Blood Pressure Pulse Oximetry Oxygen Delivery Fraction of Inspired Oxygen 01/20/24 12:00 01/20/24 12:00 01/20/24 12:00 Temperature 38.1 C H Pulse Rate 95 95 Respiratory Rate 24 H 24 H Blood Pressure 98/49 L Pulse Oximetry 93 93 Oxygen Delivery Mechanical Ventilation Fraction of Inspired Oxygen 50 50 01/20/24 12:00 01/20/24 13:29 01/20/24 13:29 Temperature Pulse Rate 97 94 94 Respiratory Rate 24 H Blood Pressure Pulse Oximetry 98 Oxygen Delivery Mechanical Ventilation Fraction of Inspired Oxygen 50 01/20/24 14:03 01/20/24 14:03 01/20/24 13:58 Temperature Pulse Rate 97 97 97 Respiratory Rate 24 H 24 H 24 H Blood Pressure Pulse Oximetry Oxygen Delivery Fraction of Inspired Oxygen 01/20/24 14:00 01/20/24 14:00 01/20/24 16:00 Temperature 37.8 C H Pulse Rate 97 97 98 Respiratory Rate 24 H Blood Pressure 128/62 Pulse Oximetry 99 Oxygen Delivery Fraction of Inspired Oxygen 01/20/24 16:00 01/20/24 16:00 01/20/24 16:47 Temperature Pulse Rate 98 100 Respiratory Rate 24 H Blood Pressure Pulse Oximetry 99 99 Oxygen Delivery Mechanical Ventilation Mechanical Ventilation Fraction of Inspired Oxygen 50 50 50 01/20/24 16:00 01/20/24 16:00 01/20/24 16:00 Temperature 37.9 C H Pulse Rate 96 96 96 Respiratory Rate 24 H 24 H 24 H Blood Pressure 143/70 H Pulse Oximetry 99 Oxygen Delivery Fraction of Inspired Oxygen 01/20/24 17:58 01/20/24 17:58 01/20/24 18:00 Temperature Pulse Rate 100 100 100 Respiratory Rate 24 H 24 H Blood Pressure Pulse Oximetry Oxygen Delivery Fraction of Inspired Oxygen 01/20/24 18:06 01/20/24 18:00 01/20/24 19:06 Temperature 38.2 C H 38.2 C H 38.0 C H Pulse Rate 101 H Respiratory Rate 24 H Blood Pressure 146/73 H Pulse Oximetry 98 Oxygen Delivery Fraction of Inspired Oxygen 01/20/24 20:00 01/20/24 20:00 01/20/24 19:30 Temperature Pulse Rate 90 90 96 Respiratory Rate 24 H 24 H 24 H Blood Pressure Pulse Oximetry 100 Oxygen Delivery Mechanical Ventilation Fraction of Inspired Oxygen 50 01/20/24 19:30 01/20/24 19:30 01/20/24 20:52 Temperature 37.8 C H Pulse Rate 96 95 Respiratory Rate 24 H 24 H Blood Pressure 139/83 Pulse Oximetry 100 Oxygen Delivery Fraction of Inspired Oxygen 50 01/20/24 20:20 01/20/24 21:06 01/20/24 20:00 Temperature Pulse Rate 94 94 92 Respiratory Rate 24 H Blood Pressure Pulse Oximetry 100 Oxygen Delivery Mechanical Ventilation Fraction of Inspired Oxygen 50 01/20/24 22:00 01/20/24 18:15 01/20/24 18:30 Temperature 38.1 C H 38.1 C H Pulse Rate 94 99 97 Respiratory Rate 24 H 24 H Blood Pressure 113/50 L Pulse Oximetry 100 98 Oxygen Delivery Fraction of Inspired Oxygen 01/20/24 18:31 01/20/24 18:45 01/20/24 19:00 Temperature 38.1 C H 38.1 C H 38.1 C H Pulse Rate 94 97 96 Respiratory Rate 24 H 24 H 24 H Blood Pressure 87/48 L Pulse Oximetry 98 98 95 Oxygen Delivery Fraction of Inspired Oxygen 01/20/24 19:01 01/20/24 19:23 01/20/24 19:30 Temperature 38.1 C H 37.9 C H 37.8 C H Pulse Rate 95 95 96 Respiratory Rate 24 H 24 H 24 H Blood Pressure 139/83 Pulse Oximetry 95 99 100 Oxygen Delivery Fraction of Inspired Oxygen 01/20/24 19:32 01/20/24 19:45 01/20/24 20:18 Temperature 37.8 C H 37.8 C H 37.8 C H Pulse Rate 95 91 89 Respiratory Rate 24 H 24 H 24 H Blood Pressure Pulse Oximetry 100 96 100 Oxygen Delivery Fraction of Inspired Oxygen 01/20/24 20:42 01/20/24 21:35 01/20/24 21:45 Temperature 37.7 C H 37.4 C 37.4 C Pulse Rate 89 96 95 Respiratory Rate 24 H 24 H 24 H Blood Pressure Pulse Oximetry 99 97 97 Oxygen Delivery Fraction of Inspired Oxygen 01/20/24 22:00 01/20/24 22:01 01/20/24 22:00 Temperature 37.5 C 37.5 C Pulse Rate 95 95 95 Respiratory Rate 24 H 24 H 24 H Blood Pressure 134/57 L Pulse Oximetry 95 95 Oxygen Delivery Fraction of Inspired Oxygen 01/20/24 22:00 01/20/24 23:56 01/20/24 23:57 Temperature Pulse Rate 95 90 92 Respiratory Rate 24 H 24 H 24 H Blood Pressure Pulse Oximetry Oxygen Delivery Fraction of Inspired Oxygen 01/20/24 22:15 01/20/24 22:30 01/20/24 22:31 Temperature 37.5 C 37.5 C 37.5 C Pulse Rate 93 96 95 Respiratory Rate 24 H 24 H 24 H Blood Pressure 113/59 L Pulse Oximetry 97 93 95 Oxygen Delivery Fraction of Inspired Oxygen 01/21/24 00:00 01/21/24 00:00 01/21/24 00:00 Temperature 37.4 C Pulse Rate 92 92 Respiratory Rate 24 H 24 H Blood Pressure 156/64 H Pulse Oximetry 97 97 Oxygen Delivery Mechanical Ventilation Fraction of Inspired Oxygen 35 35 01/20/24 23:10 01/21/24 00:00 01/21/24 02:00 Temperature Pulse Rate 89 91 93 Respiratory Rate Blood Pressure Pulse Oximetry 99 Oxygen Delivery Mechanical Ventilation Fraction of Inspired Oxygen 45 01/21/24 02:00 01/21/24 02:26 01/21/24 02:18 Temperature Pulse Rate 93 92 94 Respiratory Rate 24 H 24 H Blood Pressure 107/59 L Pulse Oximetry 92 93 Oxygen Delivery Mechanical Ventilation Fraction of Inspired Oxygen 35 01/21/24 02:30 01/21/24 03:00 01/21/24 03:30 Temperature 37.4 C 37.4 C 37.6 C Pulse Rate 95 94 92 Respiratory Rate 24 H 24 H 24 H Blood Pressure 123/62 126/61 113/59 L Pulse Oximetry 93 95 96 Oxygen Delivery Fraction of Inspired Oxygen 01/21/24 04:00 01/21/24 04:00 01/21/24 02:00 Temperature 37.5 C Pulse Rate 98 95 Respiratory Rate 24 H 24 H Blood Pressure 167/89 H Pulse Oximetry 99 Oxygen Delivery Fraction of Inspired Oxygen 35 01/21/24 02:00 01/21/24 04:00 01/21/24 04:00 Temperature Pulse Rate 95 98 98 Respiratory Rate 24 H 26 H 24 H Blood Pressure Pulse Oximetry Oxygen Delivery Fraction of Inspired Oxygen 01/21/24 04:53 01/21/24 04:53 01/21/24 04:54 Temperature Pulse Rate 96 96 97 Respiratory Rate 24 H 24 H 24 H Blood Pressure Pulse Oximetry Oxygen Delivery Fraction of Inspired Oxygen 01/21/24 04:54 01/21/24 05:00 01/21/24 05:00 Temperature Pulse Rate 97 96 96 Respiratory Rate 24 H 25 H Blood Pressure Pulse Oximetry 98 Oxygen Delivery Mechanical Ventilation Fraction of Inspired Oxygen 35 01/21/24 04:00 01/21/24 05:05 01/21/24 06:00 Temperature Pulse Rate 97 99 99 Respiratory Rate 24 H Blood Pressure Pulse Oximetry 95 Oxygen Delivery Mechanical Ventilation Fraction of Inspired Oxygen 35 01/21/24 06:00 01/21/24 06:00 01/21/24 06:00 Temperature 37.6 C Pulse Rate 96 96 96 Respiratory Rate 24 H 24 H Blood Pressure 140/62 Pulse Oximetry 95 Oxygen Delivery Fraction of Inspired Oxygen 01/21/24 06:53 01/21/24 06:54 01/21/24 07:01 Temperature Pulse Rate 147 H 147 H 147 H Respiratory Rate 27 H 27 H Blood Pressure Pulse Oximetry Oxygen Delivery Fraction of Inspired Oxygen 01/21/24 07:37 Temperature Pulse Rate 144 H Respiratory Rate Blood Pressure Pulse Oximetry Oxygen Delivery Fraction of Inspired Oxygen Intake/Output Intake/Output: Intake & Output 01/18/24 01/19/24 01/20/24 01/21/24 23:59 23:59 23:59 23:59 Intake Total 4417.7 2621.3 2246.4 956.8 Output Total 500 550 900 375 Balance 3917.7 2071.3 1346.4 581.8 Meds/Results Medications: Active Medications Generic Name Dose Route Start Last Admin Trade Name Freq PRN Reason Stop Dose Admin Acetaminophen 650 mg 01/15/24 20:11 01/20/24 18:06 Acetaminophen 325 Mg Tablet PO 650 mg Q4H PRN Administration Mild Pain (1-3) or Fever Albuterol/Ipratropium 3 ml 01/16/24 02:00 01/21/24 08:10 Ipratropium 0.5 Mg/Albuterol Sulfate 2.5 Mg Ampul.Neb 3 Ml INHALATION 3 ml Q6HRT GELA Administration Amlodipine Besylate 5 mg 01/16/24 09:00 01/20/24 08:06 Amlodipine Besylate 5 Mg Tablet FEED TUBE 5 mg DAILY GELA Administration Dextrose 12.5 gm 01/19/24 02:06 Dextrose 50% 25 Gm/50 Ml Syringe IV PUSH PRN PRN Hypoglycemia Protocol Enoxaparin Sodium 40 mg 01/17/24 09:00 01/20/24 08:06 Enoxaparin 40 Mg/0.4 Ml Syringe SUB-Q 40 mg DAILY GELA Administration Finasteride 5 mg 01/16/24 09:00 01/20/24 08:06 Finasteride 5 Mg Tablet FEED TUBE 5 mg DAILY GELA Administration Glucagon 1 mg 01/19/24 02:06 Glucagon For Inj 1 Mg Vial IM PRN PRN Hypoglycemia Protocol Glucose 15 gm 01/19/24 02:06 Glucose Oral Gel 15 Gm Of Glucse In 37.5 Gm Tube PO PRN PRN Hypoglycemia Protocol Fentanyl Citrate 2,500 mcg in 250 mls @ 7.5 mls/hr 01/18/24 21:50 01/21/24 06:54 Fentanyl 2,500 Mcg/Ns 250 Ml IV CONT 75 mcg/hr .[id number] GELA 7.5 mls/hr Titration Protocol 75 MCG/HR Midazolam HCl 100 mg in 100 mls @ 2 mls/hr 01/18/24 21:50 01/21/24 06:53 Versed 100 Mg/Ns 100 Ml IV CONT 2 mg/hr .Q50H GELA 2 mls/hr Titration Protocol 2 MG/HR Cefepime HCl 2 gm in 50 mls @ 100 mls/hr 01/19/24 01:00 01/21/24 07:07 Maxipime 2 Gm/Ns 50 Ml IVPB Infused Q8HR GELA Infusion Dextrose 1,000 mls @ 100 mls/hr 01/19/24 02:06 Dextrose 5% 1,000 Ml IVPB PRN PRN Hypoglycemia Protocol Dextrose 1,000 mls @ 50 mls/hr 01/19/24 12:00 Dextrose 10% IV CONT .Q20H PRN if PN is interrupted Metronidazole 500 mg in 100 mls @ 100 mls/hr 01/20/24 14:00 01/21/24 07:08 Flagyl 500 Mg/Iso Soln 100 Ml IVPB Infused Q8HR GELA Infusion Potassium Phosphate 20 mmol/ 256.6667 mls @ 64.167 mls/hr 01/21/24 08:00 Sodium Chloride IVPB 01/21/24 11:59 ONCE ONE Albumin Human 250 mls @ 250 mls/hr 01/21/24 09:00 Albumin Human 5% IV CONT 01/21/24 09:59 .Q1H ONE Insulin Aspart 3 - 6 units 01/19/24 06:00 01/21/24 05:46 Insulin Aspart (*Bkc) 100 Units/Ml SUB-Q Not Given Q6HR GELA Protocol Metoclopramide HCl 5 mg 01/18/24 18:00 01/21/24 05:56 Metoclopramide Hcl Inj 10 Mg/2 Ml Vial IV PUSH 5 mg Q6HR GELA Administration Miconazole Nitrate 1 applic 01/16/24 09:00 01/20/24 21:28 Miconazole Nitrate 2% Cream 30 Gm Tube TOPICAL 1 applic Q12H GELA Administration Multi-Ingred Cream/Lotion/Oil/Oint 1 applic 01/19/24 09:00 01/20/24 21:28 Mineral Oil/White Petrolatum Ointment EACH EYE 1 applic Q12HR GELA Administration Pantoprazole Sodium 40 mg 01/19/24 09:00 01/20/24 21:28 Pantoprazole Sodium Iv 40 Mg Vial IV PUSH 40 mg Q12HR GELA Administration Sodium Chloride 20 ml 01/19/24 09:47 Central Line Flush IV PUSH PRN PRN after blood draws Sodium Chloride 10 ml 01/19/24 14:00 01/21/24 06:03 Central Line Flush IV PUSH 10 ml Q8HR GELA Administration Radiology Results: ITS Impressions High Resolution CT 01/15/24 17:39 IMPRESSION: 1. Extensive tree-in-bud opacities in the dependent aspect of both lungs with more dense consolidation in the dependent aspect of the bilateral lower lobes consistent with pneumonia. This may be due to aspiration given the distribution of the presence of likely aspirated barium in the bilateral lower lobes. Chest CTA 01/15/24 19:40 IMPRESSION: 1. No pulmonary collision. 2. Extensive tree-in-bud opacities in the bilateral lower lungs with more dense consolidation in the dependent bilateral lower lobes consistent with pneumonia. Significant progression of mucus plugging throughout the lower lobar bronchi. 3. A few high attenuation material in the basilar lower lobes, left greater than right right which is suspicious for aspirated barium. Upper GI Series 01/17/24 15:50 IMPRESSION: 1. Percutaneous gastrostomy tube bulb in the distal body the stomach with normal small bowel follow-through. 2. Persistent opacities in the right mid to lower and left lower lung zones suspicious for pneumonia with some increased density at the lung bases suspicious for aspirated barium. Abdomen X-Ray 01/19/24 06:30 IMPRESSION: 1. Nasogastric tube tip in the stomach. Chest X-Ray 01/21/24 06:05 Impression: Patchy bilateral airspace disease, right worse than left, suspicious for multifocal pneumonia. Probable underlying chronic interstitial disease and/or COPD. Support tubes, as above. Labs Labs: Laboratory Results - last 24 hr 01/20/24 01/20/24 01/20/24 08:44 11:49 17:45 WBC RBC Hgb Hct MCV MCH MCHC RDW Plt Count MPV Immature Gran % (Auto) Neut % (Auto) Lymph % (Auto) Kimble % (Auto) Eos % (Auto) Baso % (Auto) Lymph # (Auto) Kimble # (Auto) Eos # (Auto) Baso # (Auto) Abs Immat Gran (auto) Absolute Neuts (auto) Absolute Nucleated RBC Nucleated RBC % Puncture Site ABG pH ABG pCO2 ABG pO2 ABG PO2/FiO2 Ratio ABG HCO3 ABG O2 Saturation ABG O2 Content ABG Base Excess A-a Gradient Oxyhemoglobin Carboxyhemoglobin Methemoglobin Reduced Hemoglobin Total Hemoglobin O2 Delivery Device O2 Liters/Min Minute Volume Vent Rate Vent Mode FiO2 Tidal Volume PEEP Peak Inspir Pressure Pressure Support Sodium Potassium Chloride Carbon Dioxide Anion Gap BUN Creatinine Estim Creat Clear Calc Estimated GFR Glucose POC Capillary Glucose 135 H 97 Calcium Phosphorus Magnesium Urine Color Yellow Urine Appearance Cloudy H Urine pH 5.5 Ur Specific [place] 1.021 Urine Protein 2+ H Urine Glucose (UA) Negative Urine Ketones Negative Ur Blood (Man) Non-hemolyzed trace Urine Nitrate Negative Urine Bilirubin Negative Urine Urobilinogen 0.2 Add Ur Microanalysis Reviewed Leukocyte Esterase Rfl Trace H Urine RBC 6-10 H Urine WBC 11-20 H Ur Squamous Epith Cells Many H Urine Bacteria None seen Urine Casts >20 Granular Casts Present 01/20/24 01/21/24 01/21/24 23:44 04:42 05:13 WBC 6.6 RBC 2.90 L Hgb 9.2 L Hct 30.1 L MCV 103.8 H MCH 31.7 MCHC 30.6 L RDW 14.0 Plt Count 148 L MPV 12.7 H Immature Gran % (Auto) 0.5 Neut % (Auto) 86.8 H Lymph % (Auto) 6.8 L Kimble % (Auto) 4.5 Eos % (Auto) 1.1 Baso % (Auto) 0.3 Lymph # (Auto) 0.45 L Kimble # (Auto) 0.3 Eos # (Auto) 0.1 Baso # (Auto) 0.0 Abs Immat Gran (auto) 0.03 Absolute Neuts (auto) 5.8 Absolute Nucleated RBC 0.000 Nucleated RBC % 0.0 Puncture Site Right radial ABG pH 7.406 ABG pCO2 47.1 H ABG pO2 64.9 L ABG PO2/FiO2 Ratio 1.85 ABG HCO3 28.9 H ABG O2 Saturation 92.7 L ABG O2 Content 14.4 L ABG Base Excess 3.6 A-a Gradient 129.9 Oxyhemoglobin 94.6 Carboxyhemoglobin 0.6 Methemoglobin 0.1 Reduced Hemoglobin 4.7 Total Hemoglobin 10.8 L O2 Delivery Device Ventilator O2 Liters/Min Not Reportable Minute Volume Not Reportable Vent Rate 24 Vent Mode Cmv FiO2 35 Tidal Volume 480 PEEP 10 Peak Inspir Pressure Not Reportable Pressure Support Not Reportable Sodium 147 H Potassium 3.3 L Chloride 112 H Carbon Dioxide 31 H Anion Gap 4 BUN 52 H Creatinine 1.00 Estim Creat Clear Calc 66 Estimated GFR > 60 Glucose 145 H POC Capillary Glucose 123 H Calcium 8.7 Phosphorus 2.1 L Magnesium 2.2 Urine Color Urine Appearance Urine pH Ur Specific [place] Urine Protein Urine Glucose (UA) Urine Ketones Ur Blood (Man) Urine Nitrate Urine Bilirubin Urine Urobilinogen Add Ur Microanalysis Leukocyte Esterase Rfl Urine RBC Urine WBC Ur Squamous Epith Cells Urine Bacteria Urine Casts Granular Casts Quality VTE Prophylaxis VTE prophylaxis: pharmacologic ordered (Lovenox 40 mg subQ daily.)
--- NOTE | 2024-01-21 09:03 | PM.PNGS ---
Progress Note: A&P Assessment and Plan (1) Aspiration pneumonia: Qualifiers: Aspiration pneumonia type: unspecified Laterality: bilateral Lung location: lower lobe of lung Qualified Code(s): J69.0 - Pneumonitis due to inhalation of food and vomit Code(s): J69.0 - Pneumonitis due to inhalation of food and vomit Status: Acute Assessment and Plan: cont mgmt per primary team, wean vent as tolerated (2) PEG (percutaneous endoscopic gastrostomy) status: Code(s): Z93.1 - Gastrostomy status Status: Acute Assessment and Plan: discussion with regarding transfer to [facility] for likely J-tube placement, that is her preference, they are accepted and awaiting transfer at this time, continue enteral feeds as tolerated for now Subjective Subjective Date/Time Seen: 01/21/24 09:03 Interval history: no acute issues, cont to tomasz low dose enteral feeds Review of Systems Review of Systems: ROS unobtainable: Yes unobtainable due to endotracheal tube Exam Const: General: no acute distress and ill appearing Resp: Auscultation: diminished lung sounds Cardio: Rate: tachycardic Rhythm: regular rhythm GI: Inspection: normal to inspection and non-distended GI Palp: No abdominal tenderness and Yes Soft to palpation Other: G tube - C/D/I Objective Data Vital Signs Vital Signs: Vital Signs - 24 hr 01/20/24 10:00 01/20/24 10:00 01/20/24 10:49 Temperature 37.9 C H 38.1 C H Pulse Rate 97 99 Respiratory Rate 24 H Blood Pressure 127/59 L Pulse Oximetry 100 Oxygen Delivery Fraction of Inspired Oxygen 01/20/24 10:02 01/20/24 10:02 01/20/24 11:08 Temperature Pulse Rate 98 98 96 Respiratory Rate 24 H 24 H Blood Pressure Pulse Oximetry 98 Oxygen Delivery Mechanical Ventilation Fraction of Inspired Oxygen 50 01/20/24 11:49 01/20/24 12:05 01/20/24 12:05 Temperature 38.1 C H Pulse Rate 95 95 Respiratory Rate 24 H 24 H Blood Pressure Pulse Oximetry Oxygen Delivery Fraction of Inspired Oxygen 01/20/24 12:00 01/20/24 12:00 01/20/24 12:00 Temperature 38.1 C H Pulse Rate 95 95 Respiratory Rate 24 H 24 H Blood Pressure 98/49 L Pulse Oximetry 93 93 Oxygen Delivery Mechanical Ventilation Fraction of Inspired Oxygen 50 50 01/20/24 12:00 01/20/24 13:29 01/20/24 13:29 Temperature Pulse Rate 97 94 94 Respiratory Rate 24 H Blood Pressure Pulse Oximetry 98 Oxygen Delivery Mechanical Ventilation Fraction of Inspired Oxygen 50 01/20/24 14:03 01/20/24 14:03 01/20/24 13:58 Temperature Pulse Rate 97 97 97 Respiratory Rate 24 H 24 H 24 H Blood Pressure Pulse Oximetry Oxygen Delivery Fraction of Inspired Oxygen 01/20/24 14:00 01/20/24 14:00 01/20/24 16:00 Temperature 37.8 C H Pulse Rate 97 97 98 Respiratory Rate 24 H Blood Pressure 128/62 Pulse Oximetry 99 Oxygen Delivery Fraction of Inspired Oxygen 01/20/24 16:00 01/20/24 16:00 01/20/24 16:47 Temperature Pulse Rate 98 100 Respiratory Rate 24 H Blood Pressure Pulse Oximetry 99 99 Oxygen Delivery Mechanical Ventilation Mechanical Ventilation Fraction of Inspired Oxygen 50 50 50 01/20/24 16:00 01/20/24 16:00 01/20/24 16:00 Temperature 37.9 C H Pulse Rate 96 96 96 Respiratory Rate 24 H 24 H 24 H Blood Pressure 143/70 H Pulse Oximetry 99 Oxygen Delivery Fraction of Inspired Oxygen 01/20/24 17:58 01/20/24 17:58 01/20/24 18:00 Temperature Pulse Rate 100 100 100 Respiratory Rate 24 H 24 H Blood Pressure Pulse Oximetry Oxygen Delivery Fraction of Inspired Oxygen 01/20/24 18:06 01/20/24 18:00 01/20/24 19:06 Temperature 38.2 C H 38.2 C H 38.0 C H Pulse Rate 101 H Respiratory Rate 24 H Blood Pressure 146/73 H Pulse Oximetry 98 Oxygen Delivery Fraction of Inspired Oxygen 01/20/24 20:00 01/20/24 20:00 01/20/24 19:30 Temperature Pulse Rate 90 90 96 Respiratory Rate 24 H 24 H 24 H Blood Pressure Pulse Oximetry 100 Oxygen Delivery Mechanical Ventilation Fraction of Inspired Oxygen 50 01/20/24 19:30 01/20/24 19:30 01/20/24 20:52 Temperature 37.8 C H Pulse Rate 96 95 Respiratory Rate 24 H 24 H Blood Pressure 139/83 Pulse Oximetry 100 Oxygen Delivery Fraction of Inspired Oxygen 50 01/20/24 20:20 01/20/24 21:06 01/20/24 20:00 Temperature Pulse Rate 94 94 92 Respiratory Rate 24 H Blood Pressure Pulse Oximetry 100 Oxygen Delivery Mechanical Ventilation Fraction of Inspired Oxygen 50 01/20/24 22:00 01/20/24 18:15 01/20/24 18:30 Temperature 38.1 C H 38.1 C H Pulse Rate 94 99 97 Respiratory Rate 24 H 24 H Blood Pressure 113/50 L Pulse Oximetry 100 98 Oxygen Delivery Fraction of Inspired Oxygen 01/20/24 18:31 01/20/24 18:45 01/20/24 19:00 Temperature 38.1 C H 38.1 C H 38.1 C H Pulse Rate 94 97 96 Respiratory Rate 24 H 24 H 24 H Blood Pressure 87/48 L Pulse Oximetry 98 98 95 Oxygen Delivery Fraction of Inspired Oxygen 01/20/24 19:01 01/20/24 19:23 01/20/24 19:30 Temperature 38.1 C H 37.9 C H 37.8 C H Pulse Rate 95 95 96 Respiratory Rate 24 H 24 H 24 H Blood Pressure 139/83 Pulse Oximetry 95 99 100 Oxygen Delivery Fraction of Inspired Oxygen 01/20/24 19:32 01/20/24 19:45 01/20/24 20:18 Temperature 37.8 C H 37.8 C H 37.8 C H Pulse Rate 95 91 89 Respiratory Rate 24 H 24 H 24 H Blood Pressure Pulse Oximetry 100 96 100 Oxygen Delivery Fraction of Inspired Oxygen 01/20/24 20:42 01/20/24 21:35 01/20/24 21:45 Temperature 37.7 C H 37.4 C 37.4 C Pulse Rate 89 96 95 Respiratory Rate 24 H 24 H 24 H Blood Pressure Pulse Oximetry 99 97 97 Oxygen Delivery Fraction of Inspired Oxygen 01/20/24 22:00 01/20/24 22:01 01/20/24 22:00 Temperature 37.5 C 37.5 C Pulse Rate 95 95 95 Respiratory Rate 24 H 24 H 24 H Blood Pressure 134/57 L Pulse Oximetry 95 95 Oxygen Delivery Fraction of Inspired Oxygen 01/20/24 22:00 01/20/24 23:56 01/20/24 23:57 Temperature Pulse Rate 95 90 92 Respiratory Rate 24 H 24 H 24 H Blood Pressure Pulse Oximetry Oxygen Delivery Fraction of Inspired Oxygen 01/20/24 22:15 01/20/24 22:30 01/20/24 22:31 Temperature 37.5 C 37.5 C 37.5 C Pulse Rate 93 96 95 Respiratory Rate 24 H 24 H 24 H Blood Pressure 113/59 L Pulse Oximetry 97 93 95 Oxygen Delivery Fraction of Inspired Oxygen 01/21/24 00:00 01/21/24 00:00 01/21/24 00:00 Temperature 37.4 C Pulse Rate 92 92 Respiratory Rate 24 H 24 H Blood Pressure 156/64 H Pulse Oximetry 97 97 Oxygen Delivery Mechanical Ventilation Fraction of Inspired Oxygen 35 35 01/20/24 23:10 01/21/24 00:00 01/21/24 02:00 Temperature Pulse Rate 89 91 93 Respiratory Rate Blood Pressure Pulse Oximetry 99 Oxygen Delivery Mechanical Ventilation Fraction of Inspired Oxygen 45 01/21/24 02:00 01/21/24 02:26 01/21/24 02:18 Temperature Pulse Rate 93 92 94 Respiratory Rate 24 H 24 H Blood Pressure 107/59 L Pulse Oximetry 92 93 Oxygen Delivery Mechanical Ventilation Fraction of Inspired Oxygen 35 01/21/24 02:30 01/21/24 03:00 01/21/24 03:30 Temperature 37.4 C 37.4 C 37.6 C Pulse Rate 95 94 92 Respiratory Rate 24 H 24 H 24 H Blood Pressure 123/62 126/61 113/59 L Pulse Oximetry 93 95 96 Oxygen Delivery Fraction of Inspired Oxygen 01/21/24 04:00 01/21/24 04:00 01/21/24 02:00 Temperature 37.5 C Pulse Rate 98 95 Respiratory Rate 24 H 24 H Blood Pressure 167/89 H Pulse Oximetry 99 Oxygen Delivery Fraction of Inspired Oxygen 35 01/21/24 02:00 01/21/24 04:00 01/21/24 04:00 Temperature Pulse Rate 95 98 98 Respiratory Rate 24 H 26 H 24 H Blood Pressure Pulse Oximetry Oxygen Delivery Fraction of Inspired Oxygen 01/21/24 04:53 01/21/24 04:53 01/21/24 04:54 Temperature Pulse Rate 96 96 97 Respiratory Rate 24 H 24 H 24 H Blood Pressure Pulse Oximetry Oxygen Delivery Fraction of Inspired Oxygen 01/21/24 04:54 01/21/24 05:00 01/21/24 05:00 Temperature Pulse Rate 97 96 96 Respiratory Rate 24 H 25 H Blood Pressure Pulse Oximetry 98 Oxygen Delivery Mechanical Ventilation Fraction of Inspired Oxygen 35 01/21/24 04:00 01/21/24 05:05 01/21/24 06:00 Temperature Pulse Rate 97 99 99 Respiratory Rate 24 H Blood Pressure Pulse Oximetry 95 Oxygen Delivery Mechanical Ventilation Fraction of Inspired Oxygen 35 01/21/24 06:00 01/21/24 06:00 01/21/24 06:00 Temperature 37.6 C Pulse Rate 96 96 96 Respiratory Rate 24 H 24 H Blood Pressure 140/62 Pulse Oximetry 95 Oxygen Delivery Fraction of Inspired Oxygen 01/21/24 06:53 01/21/24 06:54 01/21/24 07:01 Temperature Pulse Rate 147 H 147 H 147 H Respiratory Rate 27 H 27 H Blood Pressure Pulse Oximetry Oxygen Delivery Fraction of Inspired Oxygen 01/21/24 07:37 01/21/24 08:14 01/21/24 08:10 Temperature Pulse Rate 144 H 138 H Respiratory Rate 22 H Blood Pressure Pulse Oximetry 96 Oxygen Delivery Mechanical Ventilation Fraction of Inspired Oxygen 35 Intake/Output Intake/Output: Intake & Output 01/18/24 01/19/24 01/20/24 01/21/24 23:59 23:59 23:59 23:59 Intake Total 4417.7 2621.3 2246.4 956.8 Output Total 500 550 900 375 Balance 3917.7 2071.3 1346.4 581.8 Meds/Results Medications: Active Medications Generic Name Dose Route Start Last Admin Trade Name Freq PRN Reason Stop Dose Admin Acetaminophen 650 mg 01/15/24 20:11 01/20/24 18:06 Acetaminophen 325 Mg Tablet PO 650 mg Q4H PRN Administration Mild Pain (1-3) or Fever Albuterol/Ipratropium 3 ml 01/16/24 02:00 01/21/24 08:10 Ipratropium 0.5 Mg/Albuterol Sulfate 2.5 Mg Ampul.Neb 3 Ml INHALATION 3 ml Q6HRT GELA Administration Amlodipine Besylate 5 mg 01/16/24 09:00 01/20/24 08:06 Amlodipine Besylate 5 Mg Tablet FEED TUBE 5 mg DAILY GELA Administration Dextrose 12.5 gm 01/19/24 02:06 Dextrose 50% 25 Gm/50 Ml Syringe IV PUSH PRN PRN Hypoglycemia Protocol Enoxaparin Sodium 40 mg 01/17/24 09:00 01/20/24 08:06 Enoxaparin 40 Mg/0.4 Ml Syringe SUB-Q 40 mg DAILY GELA Administration Finasteride 5 mg 01/16/24 09:00 01/20/24 08:06 Finasteride 5 Mg Tablet FEED TUBE 5 mg DAILY GELA Administration Glucagon 1 mg 01/19/24 02:06 Glucagon For Inj 1 Mg Vial IM PRN PRN Hypoglycemia Protocol Glucose 15 gm 01/19/24 02:06 Glucose Oral Gel 15 Gm Of Glucse In 37.5 Gm Tube PO PRN PRN Hypoglycemia Protocol Fentanyl Citrate 2,500 mcg in 250 mls @ 7.5 mls/hr 01/18/24 21:50 01/21/24 06:54 Fentanyl 2,500 Mcg/Ns 250 Ml IV CONT 75 mcg/hr .[id number] GELA 7.5 mls/hr Titration Protocol 75 MCG/HR Midazolam HCl 100 mg in 100 mls @ 2 mls/hr 01/18/24 21:50 01/21/24 06:53 Versed 100 Mg/Ns 100 Ml IV CONT 2 mg/hr .Q50H GELA 2 mls/hr Titration Protocol 2 MG/HR Cefepime HCl 2 gm in 50 mls @ 100 mls/hr 01/19/24 01:00 01/21/24 07:07 Maxipime 2 Gm/Ns 50 Ml IVPB Infused Q8HR GELA Infusion Dextrose 1,000 mls @ 100 mls/hr 01/19/24 02:06 Dextrose 5% 1,000 Ml IVPB PRN PRN Hypoglycemia Protocol Dextrose 1,000 mls @ 50 mls/hr 01/19/24 12:00 Dextrose 10% IV CONT .Q20H PRN if PN is interrupted Metronidazole 500 mg in 100 mls @ 100 mls/hr 01/20/24 14:00 01/21/24 07:08 Flagyl 500 Mg/Iso Soln 100 Ml IVPB Infused Q8HR GELA Infusion Potassium Phosphate 20 mmol/ 256.6667 mls @ 64.167 mls/hr 01/21/24 08:00 Sodium Chloride IVPB 01/21/24 11:59 ONCE ONE Albumin Human 250 mls @ 250 mls/hr 01/21/24 09:00 Albumin Human 5% IV CONT 01/21/24 09:59 .Q1H ONE Insulin Aspart 3 - 6 units 01/19/24 06:00 01/21/24 05:46 Insulin Aspart (*Bkc) 100 Units/Ml SUB-Q Not Given Q6HR [facility] Protocol Metoclopramide HCl 5 mg 01/18/24 18:00 01/21/24 05:56 Metoclopramide Hcl Inj 10 Mg/2 Ml Vial IV PUSH 5 mg Q6HR GELA Administration Miconazole Nitrate 1 applic 01/16/24 09:00 01/20/24 21:28 Miconazole Nitrate 2% Cream 30 Gm Tube TOPICAL 1 applic Q12H GELA Administration Multi-Ingred Cream/Lotion/Oil/Oint 1 applic 01/19/24 09:00 01/20/24 21:28 Mineral Oil/White Petrolatum Ointment EACH EYE 1 applic Q12HR GELA Administration Pantoprazole Sodium 40 mg 01/19/24 09:00 01/20/24 21:28 Pantoprazole Sodium Iv 40 Mg Vial IV PUSH 40 mg Q12HR GELA Administration Sodium Chloride 20 ml 01/19/24 09:47 Central Line Flush IV PUSH PRN PRN after blood draws Sodium Chloride 10 ml 01/19/24 14:00 01/21/24 06:03 Central Line Flush IV PUSH 10 ml Q8HR EGLA Administration Radiology Results: ITS Impressions High Resolution CT 01/15/24 17:39 IMPRESSION: 1. Extensive tree-in-bud opacities in the dependent aspect of both lungs with more dense consolidation in the dependent aspect of the bilateral lower lobes consistent with pneumonia. This may be due to aspiration given the distribution of the presence of likely aspirated barium in the bilateral lower lobes. Chest CTA 01/15/24 19:40 IMPRESSION: 1. No pulmonary collision. 2. Extensive tree-in-bud opacities in the bilateral lower lungs with more dense consolidation in the dependent bilateral lower lobes consistent with pneumonia. Significant progression of mucus plugging throughout the lower lobar bronchi. 3. A few high attenuation material in the basilar lower lobes, left greater than right right which is suspicious for aspirated barium. Upper GI Series 01/17/24 15:50 IMPRESSION: 1. Percutaneous gastrostomy tube bulb in the distal body the stomach with normal small bowel follow-through. 2. Persistent opacities in the right mid to lower and left lower lung zones suspicious for pneumonia with some increased density at the lung bases suspicious for aspirated barium. Abdomen X-Ray 12/01/24 06:30 IMPRESSION: 1. Nasogastric tube tip in the stomach. Chest X-Ray 01/21/24 06:05 Impression: Patchy bilateral airspace disease, right worse than left, suspicious for multifocal pneumonia. Probable underlying chronic interstitial disease and/or COPD. Support tubes, as above. Labs Labs: Laboratory Results - last 24 hr 01/20/24 01/20/24 01/20/24 08:44 11:49 17:45 WBC RBC Hgb Hct MCV MCH MCHC RDW Plt Count MPV Immature Gran % (Auto) Neut % (Auto) Lymph % (Auto) [place] % (Auto) Eos % (Auto) Baso % (Auto) Lymph # (Auto) [place] # (Auto) Eos # (Auto) Baso # (Auto) Abs Immat Gran (auto) Absolute Neuts (auto) Absolute Nucleated RBC Nucleated RBC % Puncture Site ABG pH ABG pCO2 ABG pO2 ABG PO2/FiO2 Ratio ABG HCO3 ABG O2 Saturation ABG O2 Content ABG Base Excess A-a Gradient Oxyhemoglobin Carboxyhemoglobin Methemoglobin Reduced Hemoglobin Total Hemoglobin O2 Delivery Device O2 Liters/Min Minute Volume Vent Rate Vent Mode FiO2 Tidal Volume PEEP Peak Inspir Pressure Pressure Support Sodium Potassium Chloride Carbon Dioxide Anion Gap BUN Creatinine Estim Creat Clear Calc Estimated GFR Glucose POC Capillary Glucose 135 H 97 Calcium Phosphorus Magnesium Urine Color Yellow Urine Appearance Cloudy H Urine pH 5.5 Ur Specific [place] 1.021 Urine Protein 2+ H Urine Glucose (UA) Negative Urine Ketones Negative Ur Blood (Man) Non-hemolyzed trace Urine Nitrate Negative Urine Bilirubin Negative Urine Urobilinogen 0.2 Add Ur Microanalysis Reviewed Leukocyte Esterase Rfl Trace H Urine RBC 6-10 H Urine WBC 11-20 H Ur Squamous Epith Cells Many H Urine Bacteria None seen Urine Casts >20 Granular Casts Present 01/20/24 01/21/24 01/21/24 23:44 04:42 05:13 WBC 6.6 RBC 2.90 L Hgb 9.2 L Hct 30.1 L MCV 103.8 H MCH 31.7 MCHC 30.6 L RDW 14.0 Plt Count 148 L MPV 12.7 H Immature Gran % (Auto) 0.5 Neut % (Auto) 86.8 H Lymph % (Auto) 6.8 L [place] % (Auto) 4.5 Eos % (Auto) 1.1 Baso % (Auto) 0.3 Lymph # (Auto) 0.45 L [place] # (Auto) 0.3 Eos # (Auto) 0.1 Baso # (Auto) 0.0 Abs Immat Gran (auto) 0.03 Absolute Neuts (auto) 5.8 Absolute Nucleated RBC 0.000 Nucleated RBC % 0.0 Puncture Site Right radial ABG pH 7.406 ABG pCO2 47.1 H ABG pO2 64.9 L ABG PO2/FiO2 Ratio 1.85 ABG HCO3 28.9 H ABG O2 Saturation 92.7 L ABG O2 Content 14.4 L ABG Base Excess 3.6 A-a Gradient 129.9 Oxyhemoglobin 94.6 Carboxyhemoglobin 0.6 Methemoglobin 0.1 Reduced Hemoglobin 4.7 Total Hemoglobin 10.8 L O2 Delivery Device Ventilator O2 Liters/Min Not Reportable Minute Volume Not Reportable Vent Rate 24 Vent Mode Cmv FiO2 35 Tidal Volume 480 PEEP 10 Peak Inspir Pressure Not Reportable Pressure Support Not Reportable Sodium 147 H Potassium 3.3 L Chloride 112 H Carbon Dioxide 31 H Anion Gap 4 BUN 52 H Creatinine 1.00 Estim Creat Clear Calc 66 Estimated GFR > 60 Glucose 145 H POC Capillary Glucose 123 H Calcium 8.7 Phosphorus 2.1 L Magnesium 2.2 Urine Color Urine Appearance Urine pH Ur Specific [place] Urine Protein Urine Glucose (UA) Urine Ketones Ur Blood (Man) Urine Nitrate Urine Bilirubin Urine Urobilinogen Add Ur Microanalysis Leukocyte Esterase Rfl Urine RBC Urine WBC Ur Squamous Epith Cells Urine Bacteria Urine Casts Granular Casts
[2024-01-21] MEDS: POTASSIUM PHOS,M-BASIC-D-BASIC 20 MMOL in SODIUM CHLORIDE 0.9% IV 250 ML 64.17 MMOL IVPB (09:10)
[2024-01-21] MEDS: MINERAL OIL/WHITE PETROLATUM OINTMENT 1 APPLIC EACH EYE ×2 (09:11→20:46)
[2024-01-21] MEDS: MICONAZOLE NITRATE 2% CREAM 30 GM TUBE 1 APPLIC TOPICAL ×2 (09:11→20:46)
[2024-01-21] MEDS: PANTOPRAZOLE SODIUM IV 40 MG VIAL IV PUSH ×2 (09:11→20:38)
[2024-01-21] MEDS: ENOXAPARIN 40 MG/0.4 ML SYRINGE SUB-Q (09:11)
[2024-01-21] MEDS: ALBUMIN HUMAN 5% 250 ML IV CONT (09:18)
[2024-01-21] MEDS: MORPHINE SULFATE (*CRX) 4 MG/ML INJ IV PUSH (09:19)
[2024-01-21] MEDS: ACETAMINOPHEN 325 MG TABLET 650 MG PO (09:58)
[2024-01-21] MEDS: LACTATED RINGERS 1,000 ML 999 ML IV CONT (10:33)
[2024-01-21] MEDS: PHENYLEPHRINE HCL INJ 50 MG in DEXTROSE 5% IN WATER 250 ML/245 ML BAG 12 ML IV CONT (10:33)
--- NOTE | 2024-01-21 11:00 | PCNFU ---
Nutrition Follow-Up Complete: Altered GI function as related to aspiration pneumonia as evidenced by PPN/NPO. Goal: Meet estimated nutritional needs. Patient is progressing towards goal. We will continue current goal. Pt current nutrition is Jevity 1.5 at 50 ml/hr. Last recorded weight is 76.5 kg, up from 69.8 kg on admit. Bowel Motility: +Bm reported 01/20 Labs Reviewed:Glu 145, BUN 52, NA 147, K 3.3 Meds Noted: Protonix, Fentanyl, Versed. Skin: WNL Additional Notes: Patient remains on mechanical vent. Tube feedings are being tolerated at this time via PEG of Jevity 1.5 at 50 ml/hr. Flush 150 q 4 hours. Plans for transfer to [facility] today for J tube placement. Tube feedings of Jevity 1.5 at 50 ml/hr providing 1650 kcals/70 gm protein/836 ml water. Meeting 80% kcal needs at 30 kcal/kg and 83% protein needs at 1.2-1.4 gm/kg. No plans to increase tube feeding rate today per [employer]. Will monitor weight, labs, skin, diet orders, meds every Saturday and Saturday.
[2024-01-21 11:42] LABS: Glucose Point of Care 104 mg/dl (65-105)
[2024-01-21 17:12] LABS: Glucose Point of Care 122 mg/dl (65-105)
--- NOTE | 2024-01-28 08:40 | P.TS_ITS ---
Transfer Discharge Sum: Prov Provider Date of admission: 01/15/24 20:11 Primary care physician: David Daley M.D. Admitting clinician: Krysten Fox DO Consults: 01/16/24 Consult to Dietitian Routine Reason for Consult:: tube feeding adjustment Consult to Physician Routine Comment: Spoke with and notified her of consult Consulting Provider: Patricia Tucker property caretaker/MD group to consult: Dr. Tucker Reason for consultation: Recurrent aspiration, mucous plugging Has provider been notified: Yes 01/17/24 Consult to Physician Routine Comment: consult information given to Dr. Guillen Consulting Provider: Joselo Guillen Reason for consultation: Frequent aspiration pneumonia from tube feeding Has provider been notified: Yes 01/17/24 11:48 Consult to Dietitian Routine Reason for Consult:: TPN 01/18/24 Consult to Physician Routine Comment: Consulting Provider: George Cueto property caretaker/MD group to consult: Dr. Cueto Reason for consultation: Respiratory failure requiring intubation Has provider been notified: Yes 01/19/24 11:30 Consult to Dietitian Routine Reason for Consult:: TPN DS: Admitting Diagnosis Discharge Date 01/21/24 Admitting Diagnosis Hypoxemia DS: Discharge Diagnosis Discharge Diagnosis (1) Aspiration pneumonia: Qualifiers: Aspiration pneumonia type: unspecified Laterality: bilateral Lung location: lower lobe of lung Qualified Code(s): J69.0 - Pneumonitis due to inhalation of food and vomit Code(s): J69.0 - Pneumonitis due to inhalation of food and vomit Status: Acute (2) Acute hypoxic respiratory failure: Code(s): J96.01 - Acute respiratory failure with hypoxia Status: Acute Transfer Discharge Sum: Med Medications Active and Home Medications: Home Medications zolpidem 10 mg tablet 5 mg feeding tube HS PRN Sleep 09/07/21 [History Confirmed 01/15/24] finasteride 5 mg tablet (Proscar) 5 mg feeding tube DAILY 03/05/22 [History Confirmed 01/15/24] diazepam 10 mg tablet (Valium) 20 mg PO HS 05/19/22 [History Confirmed 01/15/24] ondansetron HCl 4 mg tablet 4 mg feeding tube Q4H PRN nausea and gelun3who 05/19/22 [History Confirmed 01/15/24] amlodipine 5 mg tablet (Norvasc) 5 mg feeding tube DAILY #30 tabs 01/13/24 [Rx Confirmed 01/15/24] acetaminophen 325 mg tablet 325 mg PO Q4H PRN Pain (Scale Score 1-3) 01/15/24 [History Confirmed 01/16/24] miconazole nitrate 2 % topical cream 1 applic topical Q12H 01/15/24 [History Confirmed 01/15/24] nystatin 100,000 unit/mL oral suspension 5 ml PO TID 01/15/24 [History Confirmed 01/15/24] polyethylene glycol 3350 17 gram oral powder packet (Miralax) 17 g feeding tube BID PRN Constipation 01/15/24 [History Confirmed 01/15/24] zolpidem 5 mg tablet 5 mg feeding tube HS 01/15/24 [History Confirmed 01/15/24] Transfer Discharge Sum: Hosp Hospital Course Hospital course: 68-year-old male with a past medical history of 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 The patient had just been hospitalized here 12/29/2023 through 01/13/2024 due to respiratory failure from aspiration pneumonia accompanied by severe sepsis and septic shock requiring multiple vasopressors. The patient was intubated on the and subsequently extubated and required re-intubation on the after failure BiPAP trial. Patient was extubated on the . The patient and his reports the patient's sputum is always thick he usually has to cough and spit stuff up numerous times a day. He has to use the anchor cardiac it mucus from his mouth. They report that the an car that the use at home is actually not strong enough to get the mucus out of the back of his mouth. Today while he was at rehab he was having increased difficulty getting the mucus up and after coughing quite vigorously he was able to produce a large amount of green sputum. He reports that his sputum is usually clear or white in color. When he was trying to cough the sputum up he had a cough so vigorously that he felt as if he was going to vomit. He is concerned that he may have had another episode of aspiration in the process. Despite coughing up the large amount of sputum patient was still feeling quite short of breath. Rehab staff check patient's oxygen saturations in his oxygen saturations remained low. He was discharged on 2 L nasal cannula on the . Despite being placed on a non-rebreather patient was still having oxygen saturations in the 80s so they sent him back to the ER. ABG in the ER demonstrated respiratory alkalosis with PO2 of 128 on 15 L non-rebreather. Noncontrast CT of the chest was initially performed which demonstrated extensive tree-in-bud opacities in the dependent aspect of both lungs with more dense consolidation in dependent aspect of bilateral lower lobes consistent with pneumonia this may be due to aspiration given the distribution of the presence of likely aspirated barium and bilateral lower lobes. The patient's D-dimer came back positive the patient subsequently underwent CTA of the chest which demonstrated again extensive tree-in-bud opacities bilateral lower lobes with more dense consolidation of bilateral lower lobe consistent with pneumonia with significant progression of mucous plugging throughout the lower lobar bronchi. With high attenuation material in the basilar lower lobes left greater than right which is suspicious for aspirated barium. The patient denies any fevers or chills. He reports that during his last hospital stay the dietitian recommended that he be on continuous feeds overnight with smaller volume bolus feeds. He is unsure what pattern of feedings he is getting at the rehab facility currently. He was switched to Jevity feeds during his last hospital stay. He had some hypernatremia during his hospital stay but this has resolved with changes in tube feeds. He was evidently constipated earlier in his last hospital stay and was on MiraLax b.i.d.. He reports that his MiraLax was discontinued prior to his discharge from the hospital but he is still continued to have multiple loose incontinent stools a day since that time. His stools are brown and nonbloody. Patient was started on antibiotics for Pneumonia and pulmonology was consulted. GI was consulted for possible Gastrojejunostomy tube placement consideration. Patient was started on Reglan however he continued to have high residuals, thus patient was taken off Tube feeding and placed on TPN. Gastric emptying study was ordered but unable to be done due to patient being intubated. Patient was continued on Antibiotics and placed on high flow nasal cannula oxygen, however patient's oxygen requirement continue to escalate, he was placed on BiPAP and after patient failed BiPAP he was transferred to the ICU and auto mechanic apprentice consulted.; he weas intubated. Gen surgery and GI finally recommended Gastrojejunostomy tube placement by IR, and for this patient was transferred to [facility] for IR intervention. Patient was stable on discharge. Time Spent with Patient Time attestation: Total time spent providing and/or coordinating transfer services: DS: Data Additional Comments Additional comments: Patient was stable on transfer.
== END 2024-01-21 21:45 | disposition short-term general hospital (02) | DRG 208 ==
LOC: ANHED 16:34 → ANHIMU 21:26 → ANHICU 01-18 22:33
PROVIDERS: Internal Medicine; Admitting Provider Internal Medicine; Emergency Provider Emergency Medicine; PCP Specialist; Visit Provider Internal Medicine
DX: J69.0 Pneumonitis due to inhalation of food and vomit (principal); J96.01 Acute respiratory failure with hypoxia; T17.890A Other foreign object in other parts of respiratory tract causing asphyxiation, initial encounter; E87.6 Hypokalemia; E03.9 Hypothyroidism, unspecified; G54.0 Brachial plexus disorders; R13.19 Other dysphagia; R19.7 Diarrhea, unspecified; Z20.822 Contact with and (suspected) exposure to COVID-19; Z93.1 Gastrostomy status; Z92.3 Personal history of irradiation; Z85.21 Personal history of malignant neoplasm of larynx
CPT/HCPCS: 31500; 36415; 36569; 36600; 71045; 71250; 71275; 74240; 74248; 80048; 80053; 81001; 82375; 82805; 82948; 83050; 83605; 83690; 83735; 83880; 84100; 84145; 84466; 84478; 84484; 85018; 85025; 85027; 85055; 85380; 85610; 85730; 87040; 87045; 87070; 87077; 87086; 87186; 87205; 87427; 87449; 87493; 87637; 87641; 93005; 94002; 94003; 94640; 94667; 94668; 94669; 99291; A9270; C1751; J0330; J0692; J1650; J1836; J2250; J2270; J2371; J2405; J2470; J2543; J2765; J3010; J3370; J3480; J7030; J7050; J7060; J7070; J7120; P9041; Q9967

== ENCOUNTER 2024-12-06 00:42 | Inpatient (IN) | payer MEDICARE, OTHER, SELFPAY ==
--- OUTSIDE RECORDS SUMMARY | 2024-12-04 12:10 | XMS_ITS | Encounter Summary ---
Author Organization [facility] Healthcare Address [address] [place] [address] Care Team Providers Care Automobile Service Station Attendant Name Role Phone Robbin Willis MD PhD Unavailable + [phone] Noelle Rowland Unavailable Unavailab Jessica Ta RN Unavailable Un available Kimberlee Damon RN Unavailable Unavailab Malvin Gillis MD Unavailable [phone] Lloyd Sykes MD Unavailable [phone] Charlene Gomez DO Unavailable [phone] Larry Hinojosa MD Primary Care Provider + Larry Hinojosa MD Unavailable [phone] Miscellaneous, Not In File Unavailable Unava ilable Shakeel Thakkar MD Unavailable [phone] Reason for Visit * Diagnostic Imaging (Routine) - Pending Review Specialty Diagnoses / Procedures Referred By Contac t Referred To Contact Radiology Diagnoses Gastrostomy tube dysfunction (HCC) Procedures IR GJ-Tube Exchange IR G To GJ-Tube Replacement Kash Ornelas MD [address] [address] Phone: tel: fax: [facility] [address] [place] [address] Referral ID Status Reason Start Date Expiration Date V isits Requested Visits Authorized [id number] Pending Review 11/18/2024 12/18/2025 1 1 Encounter Details Date Type Department Care Team (Latest Contact Info) Description 12/04/2024 12:10 PM CDT - 12/04/2024 11:59 PM CDT Hospital Encounter [facility] - Interventional Radiology [address] [place] [address] Gastrostomy tube dysfunction (HCC) Discharge Disposition: Discharge to home or self care Social History Tobacco Use Types Packs/Day Years Used Date Smoking Tobacco: Never Passive Smoke Exposure: Never Smokeless Tobacco: Never Alcohol Use Standard Drinks/Week Comments Never 0 (1 standard drink = 0.6 oz pur e alcohol) OASIS D0700: Social Isolation Answer Da te Recorded Frequency of experiencing loneliness or isolatio n Never 05/13/2024 OASIS A1250: Transportation Answer Date Recorded Lack of Transportation (Medical) No 05/13/2024 Lack of Transportation (Non-Medical) No 05/13/2024 Patient Unable or Declines to Respond No 05/13/2024 OASIS B1300: Health Literacy Answer Travon e Recorded Frequency of needing help to read materials from doctor or pharmacy Never 05/13/2024 [facility] Utilities Answer Date Recorded In the past 12 months has e electric, gas, oil, or water company threatened to shut off services in your home? No 03/02/2024 Social Connection and Isolation Panel Answer Date Recorded In a typical week, how many times do you talk on the phone with family, friends, or neighbors? More than three times a week 03/02/2024 How often do you get togethe r with friends or relatives? More than three times a week 03/02/2024 How often do you attend chur ch or spiritism services? Never 03/02/2024 Do you belong to any clubs o r organizations such as spiritism groups, unions, fraternal or athletic groups, or school groups? No 03/02/2024 How often do you attend meet ings of the clubs or organizations you belong to? Never 03/02/2024 Are you , , di vorced, , never , or living with a partner? 03/02/2024 Overall Financial Resource Strain (CARDIA) Answe r Date Recorded How hard is it for you to pa y for the very basics like food, housing, medical care, and heating? Not very hard 03/02/2024 PHQ-2 Answer Date Recorded PHQ-2 Total Score (If total score is 3 or more points, staff should administer the PHQ-9) 0 07/04/2021 Hunger Vital Sign Answer Date Recorded Within the past 12 months, y ou worried that your food would run out before you got the money to buy more. Never true 03/02/19 25 Within the past 12 months, t he food you bought just didn't last and you didn't have money to get more. Never true 03/02/2024 PRAPARE - Transportation Answer Date Re corded In the past 12 months, has l ack of transportation kept you from medical appointments or from getting medications? No 02/18 In the past 12 months, has l ack of transportation kept you from meetings, work, or from getting things needed for daily living? No 03/02/2024 Housing Stability Vital Sign Answer Travon e Recorded In the last 12 months, was t here a time when you were not able to pay the mortgage or rent on time? No 03/02/2024 In the past 12 months, how m any times have you moved where you were living? 0 03/02/2024 At any time in the past 12 m [facility], were you homeless or living in a snf (including now)? No 03/02/2024 AUDIT-C Answer Date Recorded Q1: How often do you have a drink containing alcohol? Never 11/26/2024 Q2: How many drinks containi ng alcohol do you have on a typical day when you are drinking? Patient does not drink Q3: How often do you have si x or more drinks on one occasion? Never 11/26/2024 Personal Safety Answer Date Recorded Have you ever been in or are you currently in a harmful physical or emotional relationship or is someone making you feel afraid or unsafe? 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 Gender Identity Not on file Sexual Orientation Not on file documented as of this encounter Last Filed Vital Signs Vital Sign Reading Time Taken Comments Blood Pressure 142/92 12/04/2024 3:15 PM CDT Pulse 78 12/04/2024 3:20 PM CDT Temperature 36.7 C (98.1 F) 12/04/2024 2:30 PM CDT Respiratory Rate 17 12/04/2024 3:20 PM CDT Oxygen Saturation 100% 12/04/2024 3:20 PM CDT Inhaled Oxygen Concentration - - Weight 61.2 kg (135 lb) 12/04/2024 1:04 PM CDT Height 182.9 cm (6') 12/04/2024 1:04 PM CDT Body Mass Index 18.31 12/04/2024 1:04 PM CDT documented in this encounter Discharge Instructions * Discharge Instructions* Viktoria Hung PA - 12/04/2024 2:31 PM CDT Interventional Radiology Outpatient Discharge Instructions Diagnosis: Karen-catheter leakage Procedure: Gastrojejunostomy catheter exchange and cauterization of granulation tissue with silver nitrate on 12/04/2024 Limitations: [] No lifting greater than 5 pounds with [] Right [] Left arm for 7 days. [x] You received medication that may affect your judgement. Stay with a responsible person today. Do not drive, operate machinery, make any legal or important decisions, or drink alcohol until tomorrow. No smoking unless another adult is present. Other Diet: You may resume your previous diet. Medication: [x] Usual medications; check with your regular doctor for any questions. Do not take any new pain medicine, sleeping pills or sedatives unless approved by your doctor. [] Prescriptions given for: Procedure Site Care: [] teaching sheet given [] Skin glue was used to close your incision. [x] Keep site clean and dry. [x] You may shower tomorrow. [x] Change the dressing daily and if it becomes wet or dirty. [] Cover entire area with plastic (i.e. Press N Seal plastic wrap or Ziploc bags) and tape down edges before showering to keep site clean and dry. Drainage Tube Care: [x] Flush both lumens of the tube with 20-30 cc tap water at least 3 times daily and after all tubefeedings and medications. No bolus feedings or crushed medications through the jejunal lumen. [] Record drainage output every day. [] Your tube is capped. Uncap the tube after or if severe pain or fever develops. (Please see teaching sheet.) [] Call Interventional Radiology if there is leakage around the tube or the tube stops draining. To contact an Interventional Radiologist nurse at [facility] or to schedule an appointment with Interventional Radiology at [facility], call [phone] and follow the prompts. Special instructions: Please call Interventional Radiology for any procedure related questions or problems including: Extreme swelling or bruising at the site. Unusual drainage or bleeding from procedure site. Fever of 101.5 F for more than 24 hours. Severe procedure related pain. Follow up care: [x] Return to Interventional Radiology on ____ at ____ (arrive 1 hour prior) - Follow up with Interventional Radiology in approximately 6-9 months for drain exchange. Please come to: [x] [facility] [] [facility] [] 3rd Floor [facility] [] 4th floor [facility] [] Please call [phone] to schedule a follow up appointment. You need to return in To recognize a nurse for excellent care, please visit this website: [email or web address] Interventional Radiology Gastrojejunostomy Catheter Discharge Instructions Procedure: 22F 45 cm balloon-retention ENFit Gastrojejunostomy catheter exchange and cauterization of granulation tissue on 12/04/2024 by Interventional Radiology General Information: You have had a gastrojejunostomy tube, or GJ-tube, placed into your stomach and jejunum (small bowel). The tube will be used to provide nutrition/tube feedings through the jejunal (J) lumen and give medications through the gastric (G) lumen. You may need the tube for a short time or for a lifetime. Regardless, it will need to stay in placefor at least 8 weeks before it can be removed. Instructions for keeping the tube in place: It is normal for the tube to move in and out of the skin. As we eat, the stomach gets larger and the tube moves with the stomach. Your tube is held in place by an internal balloon and a clear plastic bumper attached to the outside of your GJ-tube. Gastrojejunostomy Catheter Care: Wash your hands before and after any contact with the tube. Keep the dressing and the skin around the tube as dry as possible. Do not allow the tube to be submerged in water in swimming pools, hot tubs, or baths. For the first 3 days after the tube is placed, you may shower or take a sponge bath but the site should not get wet. Cover the site with plastic (i.e. Press N Seal plastic wrap or Ziploc bags) and tape down the edges before showering to keep the site clean and dry. After 3 days, you may shower with the site uncovered. Gently clean the skin around the tube with soap and water, dry the site, and apply a new dressing using a folded 4X4 inch gauze pad and tape. In addition, tape the tube to your skin to prevent it from getting pulled on. Change the dressing around the tube at least three times per week or more often if it becomes soiled. Tube Feedings and Medications: A fuel injection servicer will determine your tube feeding routine. Your tube feedings should be given continuously throughout the day (no bolus feeds). The tube feedings should always be given through the jejunal(J) lumen and should be flushed with 20 cc of water after feedings and every 8 hours. You will be taught how to give feedings through the tube. Medications should only be given through the gastric (G) lumen. If possible, give liquid forms of medications through the tube. If medications only come in pill or capsule form, crush the pills and dissolve the medications in water before giving. Flush the G-lumen with 20-30 cc of tap water after giving medications to avoid the lumen getting clogged. Flushing the Catheter: Flush the tube with 20-30 cc tap water 3 times daily and after all tube feedings and medications. Call Interventional Radiology at if you have any of the following symptoms: If the tube is clogged or not working If your tube feedings leak around the tube onto your skin If you develop a fever higher than 100.4??F (38??C) within 10 days after the tube was placed If you develop swelling, redness, increased pain, or drainage around the site for more than 2 days IF THE TUBE COMES OUT COMPLETELY, PLEASE CALL OUR DEPARTMENT. THE TUBE WILL NEED TO BE REPLACED WITHIN 24 HOURS. If the tube has been in place less than 4 weeks, you may need to go to the ER. In the meantime, cover the site with a clean dressing. Do NOT attempt to replace the tube yourself. If you need to speak with a nurse during business hours Note: For after hours, please call the phone number above and follow the telephone prompts to have the Interventional Radiologist on-call to be paged. To recognize a nurse for excellent care, please visit this website: [email or web address] General post-op information: Following your surgery you may have questions about your procedure or recover. This information is in regards to the first 24 hours after surgery. Please contact your surgeon for any other concerns or questions. NORMAL: - Feel groggy, lightheaded, weak, or sleepy for several days after surgery. - Feel sore at your incision site for several days after surgery. - Have bruising around your incision site or IV site. - Have small amounts of bright red blood on your bandage. - Feel constipated if you are taking narcotic pain medicine. CALL DOCTOR IF: - Temperature over 101. - Have excessive bleeding, any draingage, redness, swelling, or pain. - Meds are causing upset stomach, headache, rash, or other abnormal reactions. - Your incision comes apart or you have other wound concerns. - Sudden chest pain or difficulty breathing. (call 911 immediately) - Over- the- counter laxatives are not initiating a bowel movement within several days. documented in this encounter Medications at Time of Discharge acetaminophen 32 mg/mLIndications :Pain Administer per tube 20.3 mL (650 mg total) every 6 (six) hours as needed for pain albuterol 2.5 mg /3 mL (0.083 %) nebulizer solutionIndicati ons:Prior to hypertonic, with vest Take 3 mL (2.5 mg total) by nebulization 2 (two) times a day 01/31/2024 cholecalciferol 25 mcg (1,000 unit) tabletIndication s:Vitamin D Deficiency Administer per tube 5 tablets (5,000 Units total) daily diazePAM (VALIUM) 10 mg tabletIndication s:anxiety Administer per tube 1 tablet (10 mg total) nightly diazePAM (VALIUM) 10 mg tabletIndication s:anxiety Administer per tube 1 tablet (10 mg total) nightly as needed for anxiety finasteride (PROSCAR) 5 mg tablet Take 1 tablet (5 mg total) by mouth nightly 09/21/2024 loperamide (IMODIUM) 2 mg capsuleIndicatio ns:diarrhea Take 1 capsule (2 mg total) by mouth every 2 (two) hours as needed for diarrhea ondansetron (ZOFRAN) 4 mg tabletIndication s:Nausea and Vomiting Administer per tube 1 tablet (4 mg total) every 8 (eight) hours as needed for nausea or vomiting zolpidem (AMBIEN) 5 mg tablet Take 1 tablet (5 mg total) by mouth nightly 10/05/2024 documented as of this encounter Discharge Disposition Disposition Code Departure Means Destination Discharge to home or self care documented in this encounter Miscellaneous Notes * Post-Procedure Note - Viktoria Hung PA - 12/04/2024 1:00 PM CDT Radiology Brief Post Procedure Note Attending: Sin Harris M.D. Consulting Psychologist: Viktoria Hung PA-C Sedation/Anesthesia: Anesthesia Pre-Op/Pre-Procedure Diagnosis: Karen-catheter leakage, head and neck cancer, chronic gastrojejunostomy catheter for nutrition and medications Post-Op/Post-Procedure Diagnosis: same Procedure Performed: Exchange of 24F pull-through gastrostomy catheter with gastrojejunostomy conversion to 22F 45 cm balloon retention gastrojejunostomy catheter Chemical cauterization of granulation tissue Procedure Findings: catheter tip terminates in jejunum, balloon inflated with 10 cc dilute contrast, bumper positioned at 2 cm at the skin Six applicators of silver nitrate used to cauterize granulation tissue at the skin site. Complications: None Estimated Blood Loss: < 30 ml Specimens: None Condition: Stable Full report to follow. documented in this encounter Plan of Treatment Not on file documented as of this encounter Goals Goal Patient Goal Type Associated Problems Recent Progress Patient-Stated? Author [facility]al [facility] Improving(07/2019 1:15 PM MANAGER MBA) Rosenda Avery, RN Note: Patient would like to be able to eat and drink without pain. documented as of this encounter Procedures Procedure Name Priority Date/Time Associated Diagnosis Comments GJ-TUBE EXCHANGE Schedule Routine, Read Routine (OP Routine) 12/04/2024 2:26 PM CDT Gastrostomy tube dysfunction (HCC) documented in this encounter Results * IR GJ-Tube Exchange (12/04/2024 2:26 PM CDT) Anatomical Region Laterality Modality Body N/A X-Ray Angiograph y 12/04/2024 3:57 PM CDT Impressions 12/04/2024 3:57 PM CDT 1. Successful exchange of a 24-Anguillan pull-through gastrostomy catheter with conversion kit gastrojejunostomy to a 22-Anguillan 45 cm ENFit gastrojejunostomy catheter. 2. Chemical cauterization of granulation tissue with silver nitrate applicators. PLAN: Tube feedings and/or medications may be administered through the catheter. Flush catheter with 20-30 cc tap water 3 times daily and after all tube feedings and medications. No bolus feedings or crushed medications through the jejunal lumen. [facility] - [phone] Electronically signed by: Viktoria Hung PA-C Narrative 12/04/2024 3:57 PM CDT EXAMINATION: 1. GASTROJEJUNOSTOMY TUBE EXCHANGE 2. CHEMICAL CAUTERIZATION OF GRANULATION TISSUE HISTORY/INDICATION: 69-year-old male with a history of head and neck cancer with a chronic enteral access for tube feedings and medications presents for drain exchange due to karen-catheter leakage. The patient first underwent placement of a 24-Anguillan pull-through gastrostomy catheter by Gastroenterology on 08/20/2022. This has remained in place since that time. A 24-Anguillan conversion kit gastrojejunostomy was advanced through this access on 01/24/2024. PROVIDER PRESENCE: Viktoria Hung PA-C, was present from the beginning to the end of the procedure. SEDATION: MAC anesthesia (please refer to anesthesia log). TECHNIQUE: The risks, benefits and alternatives were discussed and informed consent was obtained. Prior to beginning the procedure, [place] Protocol was performed to confirm the patient's identity and the planned procedure. The fluoroscopy time has been recorded in the electronic medical record. Maximum sterile barriers including cap, mask, hand hygiene, sterile gloves, sterile gown, large sterile drape and Betadine for cutaneous antisepsis were used. The skin over the stomach and the existing 24-Anguillan pull-through gastrostomy catheter containing a 24-Anguillan conversion kit gastrojejunostomy catheter was sterilely prepped and draped. Using fluoroscopic guidance, an Amplatz guidewire was passed through the jejunal lumen of the existing catheter and placed in the jejunum. The existing catheter was then removed over the wire. This guidewire was exchanged over an MPA catheter for a stiff Terumo Glidewire. A 22-Anguillan 45 cm ENFit gastrojejunostomy catheter was advanced over the Glidewire and placed with its tip in the jejunum. The catheter balloon was inflated with 10 cc dilute contrast. Contrast injection confirmed appropriate positioning of the catheter in the jejunum and stomach. The catheter bumper was positioned at 2 cm at the skin site. Six silver nitrate applicators were used to cauterize granulation tissue at the skin site. A sterile dressing was applied. ESTIMATED BLOOD LOSS: Minimal. CONDITION: Stable. DISCHARGED TO: Recovery and then PACU before discharge home. FINDINGS: Fluoroscopic spot image demonstrates the gastrojejunostomy catheter with its tip in the jejunum. No complications are seen. Procedure Note Viktoria Hung PA - 12/04/2024 EXAMINATION: 1. GASTROJEJUNOSTOMY TUBE EXCHANGE 2. CHEMICAL CAUTERIZATION OF GRANULATION TISSUE HISTORY/INDICATION: 69-year-old male with a history of head and neck cancer with a chronic enteral access for tube feedings and medications presents for drain exchange due to karen-catheter leakage. The patient first underwent placement of a 24-Anguillan pull-through gastrostomy catheter by Gastroenterology on 08/20/2022. This has remained in place since that time. A 24-Anguillan conversion kit gastrojejunostomy was advanced through this access on 01/24/2024. PROVIDER PRESENCE: Viktoria Hung PA-C, was present from the beginning to the end of the procedure. SEDATION: MAC anesthesia (please refer to anesthesia log). TECHNIQUE: The risks, benefits and alternatives were discussed and informed consent was obtained. Prior to beginning the procedure, [place] Protocol was performed to confirm the patient's identity and the planned procedure. The fluoroscopy time has been recorded in the electronic medical record. Maximum sterile barriers including cap, mask, hand hygiene, sterile gloves, sterile gown, large sterile drape and Betadine for cutaneous antisepsis were used. The skin over the stomach and the existing 24-Anguillan pull-through gastrostomy catheter containing a 24-Anguillan conversion kit gastrojejunostomy catheter was sterilely prepped and draped. Using fluoroscopic guidance, an Amplatz guidewire was passed through the jejunal lumen of the existing catheter and placed in the jejunum. The existing catheter was then removed over the wire. This guidewire was exchanged over an MPA catheter for a stiff Terumo Glidewire. A 22-Anguillan 45 cm ENFit gastrojejunostomy catheter was advanced over the Glidewire and placed with its tip in the jejunum. The catheter balloon was inflated with 10 cc dilute contrast. Contrast injection confirmed appropriate positioning of the catheter in the jejunum and stomach. The catheter bumper was positioned at 2 cm at the skin site. Six silver nitrate applicators were used to cauterize granulation tissue at the skin site. A sterile dressing was applied. ESTIMATED BLOOD LOSS: Minimal. CONDITION: Stable. DISCHARGED TO: Recovery and then PACU before discharge home. FINDINGS: Fluoroscopic spot image demonstrates the gastrojejunostomy catheter with its tip in the jejunum. No complications are seen. IMPRESSION: 1. Successful exchange of a 24-Anguillan pull-through gastrostomy catheter with conversion kit gastrojejunostomy to a 22-Anguillan 45 cm ENFit gastrojejunostomy catheter. 2. Chemical cauterization of granulation tissue with silver nitrate applicators. PLAN: Tube feedings and/or medications may be administered through the catheter. Flush catheter with 20-30 cc tap water 3 times daily and after all tube feedings and medications. No bolus feedings or crushed medications through the jejunal lumen. [facility] - [phone] Electronically signed by: Viktoria Hung PA-C us Kash Ornelas MD IMG IR PROCEDURES Final Res ult documented in this encounter Visit Diagnoses Diagnosis Gastrostomy tube dysfunction (HCC) documented in this encounter Administered Medications Inactive Administered Medications - up to 3 most recent administrations Medication Order MAR Action Action Date Dose Rate Site ioversoL (OPTIRAY 350) injection 0.01-500 mL 0.01-500 mL, intra-catheter, Once in imaging, contrast, Starting on Sat12/04/24 at 1358, For 1 dose Contrast Given 12/04/2024 2:15 PM CDT 30 mL silver nitrate applicator As needed, Starting on Sat12/04/24 at 1356, Intra-Op Given 12/04/2024 2:14 PM CDT 2 Sticks Given 12/04/2024 1:56 PM CDT 4 Sticks documented in this encounter Orders Medications Ordered That Jovanny ht Not Have Been Administered Count Last Ordered Date First Ordered Date albuterol 2.5 mg /3 mL (0.08 3 %) nebulizer solution 2.5 mg 1 12/04/2024 dextrose (D10W) 10% bolus 250 mL 1 12/05/19 dextrose (GLUTOSE) 40 % gel 15 g 1 12/05/19 diphenhydrAMINE (BENADRYL) 5 0 mg/mL injection 12.5 mg 1 12/04/2024 fentaNYL (SUBLIMAZE) preserv ative free injection 25 mcg 1 12/04/2024 glucagon injection 1 mg 1 12/04/2024 haloperidol lactate (HALDOL) injection 1 mg 1 12/04/2024 HYDROmorphone (DILAUDID) injection 0.2 mg 1 12/04/2024 HYDROmorphone (DILAUDID) injection 0.4 mg 1 12/04/2024 insulin lispro (HumaLOG, ADM ELOG) 100 unit/mL injection 0-5 Units 1 12/04/2024 labetaloL (NORMODYNE,TRANDAT E) injection 5 mg 1 12/04/2024 naloxone (NARCAN) 0.4 mg/mL injection 0.04-0.4 mg 1 12/04/2024 ondansetron (ZOFRAN) injection 4 mg 1 12/04 oxyCODONE (ROXICODONE) tablet 5 mg 1 2024 racepinephrine (ASTHMANEFRIN ) 2.25 % nebulizer solution 0.5 mL 1 12/04/2024 Discharge Count Last Ordered Date First Orde red Date DISCHARGE PATIENT 1 12/04/2024 documented in this encounter Care Teams [employer] Attendant Relationship Specialty Start Date End Date Larry Hinojosa MD [address] [facility] [place] [address] PCP - General Internal Medicine 05/31/22 Robbin Willis MD PhD [address] [place] [id number] Consulting Physician Radiation Oncology 01/24/17 Noelle Rowland, ELECTRIC RELAY TESTER Speech Language Pathologist Speech Therapy 01/31/17 Jessica Knight, RN Registered Nurse 06/14/17 Kimberlee Damon, CAROLA Registered Nurse Pain Management 06/28/17 Malvin Lopez MD Consulting Physician Urology 08/17/20 Lloyd Sykes MD Consulting Physician Gastroenterology 08/21/20 Charlene Gomez DO [address] [place] [id number] Consulting Physician Otolaryngology 05/31/22 Larry Hinojosa MD [address] [place] [address] Referring Physician Internal Medicine 08/20/22 Miscellaneous, Not In File 01/31/24 Shakeel Thakkar MD [address] [place] [address] Consulting Physician Pulmonary Disease 01/31/24 documented as of this encounter
[2024-12-06] VITALS (44 sets, daily range): BP systolic 87–147; BP diastolic 53–90; PULSE 82–115; RESP 17–32; TEMP 36.6–37.7; O2SAT 92–100; BMI 19.5
--- NOTE | ~2024-12-06 | CT_ITS ---
EXAMINATION: CT chest abdomen pelvis wo con, 12/06/2024 13:20 CDT HISTORY: Pnuemonia vs chronic infiltrates, ?abd distention COMPARISON: No comparisons available. TECHNIQUE: CT scan of the chest, abdomen and pelvis was performed without contrast One or more of the following dose reduction techniques were used: automated exposure control, adjustment of the mA and/or kV according to patient size, use of iterative reconstruction technique. Unless otherwise stated, incidental findings do not require dedicated follow up imaging FINDINGS: CT chest: No significant coronary calcification is present ([id number]) LUNGS: Moderate emphysematous changes. No bullous formation noted. No tracheomalacia . There are bilateral infiltrates most marked involving the lower lobes with bronchiectasis and some areas of peripheral mucous plugging. There are scattered micronodules measurements demonstrate a tree-in-bud distribution and are probably infectious. Within the left lower lobe there are areas of increased density which may be consistent with sequelae of previous aspiration. HEART AND PERICARDIUM: Within normal limits. AORTA: Normal caliber aorta. MEDIASTINUM: Unremarkable. THYROID: The thyroid is unremarkable. CT abdomen: LIVER: Unremarkable, liver contours intact, no lesions. SPLEEN: Unremarkable, no splenomegaly. KIDNEYS: Right Kidney: Right kidney midpole 2 mm calculus, no hydronephrosis left kidney 4 mm calculus, no hydronephrosis. Left Kidney: Unremarkable. No calculi. No hydronephrosis ADRENAL GLANDS: Nonspecific thickening of the adrenal glands bilaterally. PANCREAS: Moderate pancreatic atrophy. GALLBLADDER/BILIARY: Unremarkable. No biliary dilatation. STOMACH AND ESOPHAGUS: Gastrostomy tube in appropriate location. BOWEL/MESENTERY: Moderate fecal content throughout the large bowel. Moderate diverticulosis. No colitis or diverticulitis. Appendix appears normal. Mesentery normal. No thickened or dilated loops of small bowel. RETROPERITONEUM: Unremarkable AORTA/VASCULATURE: Normal caliber aorta. FREE FLUID OR FREE AIR: No free fluid.. CT pelvis: SOLID ORGANS/REPRODUCTIVE: Unremarkable. BLADDER: Within normal limits. LYMPHADENOPATHY: No lymphadenopathy. OSSEOUS STRUCTURES: No acute osseous abnormality.No suspicious lesions. OVERLYING SOFT TISSUES: Unremarkable. IMPRESSION: 1. Bilateral moderate to severe bronchopneumonia. Follow-up recommended to assess stability. No acute intra-abdominal process Reviewed, dictated and finalized at location P. IMPRESSION: 1. Bilateral moderate to severe bronchopneumonia. Follow-up recommended to asse ss stability. No acute intra-abdominal process
--- NOTE | ~2024-12-06 | XR_ITS ---
Examination: XR chest 1V portable Clinical History: FEVER Comparison: 01/21/2024 Technique: Portable AP Findings: Heart size normal. Mild scattered bilateral foci of airspace disease. Left basilar calcified pleural plaque. No acute bony abnormality. IMPRESSION: 1. Mild scattered bilateral foci airspace disease. Prior film one year prior had diffuse airspace disease. Unclear if current opacities acute and/or chronic. Reviewed, dictated and finalized at location R. IMPRESSION: 1. Mild scattered bilateral foci airspace disease. Prior film one year prior h ad diffuse airspace disease. Unclear if current opacities acute and/or chronic.
--- NOTE | 2024-12-06 00:47 | ECG_ITS ---
Test Date: 2024-12-06 00:51:48 Measurements Intervals [place] Rate: 108 P: 62 MI: 116 QRS: -65 QRSD: 105 T: 77 QT: 329 QTc: 442 Interpretive Statements SINUS TACHYCARDIA WITH SHORT MI INTERVAL LEFT ANTERIOR FASCICULAR BLOCK LEFT VENTRICULAR HYPERTROPHY AND ST-T CHANGE CANNOT R/O SEPTAL INFARCT, AGE INDETERMINATE ABNORMAL ECG Compared to ECG 01/21/2024 06:45:25 Supraventricular tachycardia no longer present Electronically Signed On 12-06-2024 08:39:47 CDT by West Ortiz D.O.
[2024-12-06 01:14] LABS: Hematocrit 45.1 % (42.0-52.0); Hemoglobin 14.6 g/dL (14.0-18.0); Mean Corpuscular HGB Conc 32.4 g/dl (32-36); Mean Corpuscular Hemoglobin 32.2 pg (26-34); Mean Corpuscular Volume 99.3 fl (80-100); Platelet Count Result 137 k/mm3 (150-375); Red Blood Count 4.54 M/mm3 (4.6-6.20); White Blood Count 10.2 K/mm3 (4.5-10.0)
[2024-12-06] MEDS: SODIUM CHLORIDE 0.9% IV 1,000 ML 999 ML IV CONT (01:22)
[2024-12-06 01:24] LABS: Alanine Aminotransferase 17 U/L (6-50); Albumin Level 4.1 g/dL (3.5-5.1); Alkaline Phosphatase 77 U/L (38-126); Anion Gap 7 mmol/L (4-12); Aspartate Amino Transferase 26 U/L (17-59); Bilirubin,Total 0.8 mg/dL (0.2-1.3); Blood Urea Nitrogen 27 mg/dL (9-20); CRP 0.7 mg/dL (<1.0); Calcium 8.5 mg/dL (8.4-10.2); Carbon Dioxide 27 mmol/L (22-30); Chloride 100 mmol/L (98-107); Estimated CRCL calculation 74 ml/min; Estimated Glomerular Filt Rate > 60; Glucose 140 mg/dL (65-110); Lipase 41 U/L (23-300); Potassium 4.2 mmol/L (3.4-5.0); Sodium 134 mmol/L (137-145); Total Protein 6.7 g/dL (6.3-8.2)
[2024-12-06 01:26] LABS: INR 1.1; Partial Thromboplastin Time 27.6 Seconds (22.3-36.8); Prothrombin Time 14.3 Seconds (11.1-14.7)
[2024-12-06 01:33] LABS: Troponin I < 0.012 ng/mL (0.000-0.034)
[2024-12-06] MEDS: PIPERACILLIN/TAZOBACTAM SOD 3.375 GM in SODIUM CHLORIDE 0.9% IV 50 ML 100 ML IVPB ×4 (01:35→20:36)
[2024-12-06 01:43] LABS: Band Neutrophils Percent 9 % (0-6); Basophils Absolute Manual 0.10 K/mm3 (0.0-0.1); Basophils Percent Manual 1 % (0-1); Lymphocytes Absolute Manual 0.30 K/mm3 (1.1-4.5); Lymphocytes Percent Manual 3.0 % (18-44); Monocytes Absolute Manual 0.20 K/mm3 (0.1-0.90); Monocytes Percent Manual 2 % (3-9); Neutrophils Absolute Manual 9.58 K/mm3 (1.3-6.7); Neutrophils Percent Manual 85 % (46-73); Total Cells Counted 100
[2024-12-06 01:44] LABS: Giant Platelets Present; Schistocytes None Seen
[2024-12-06 01:45] LABS: Smudge Cells PRESENT
--- NOTE | 2024-12-06 01:49 | ED.SOB ---
HPI - SOB/Dyspnea General Chief Complaint: Shortness of Breath/Dyspnea Stated Complaint: N/V, GEN WEAKNESS, FEVER, PEG TUBE W/ ?ASPIRATION Time Seen by Provider: 12/06/24 00:54 Source: patient and family Mode of arrival: EMS Limitations: no limitations History of Present Illness HPI Narrative: 69-year-old with a history of throat cancer, recurrent aspiration pneumonia, recent replacement of G-tube with J[facility]tube at [facility] yesterday and was discharged home. Patient states that he had sudden onset of regurgitation and possible aspiration and was complaining of shortness of breath and weakness and fever will use this evening. The called 911 and was brought today to the office. He presently complains of burning chest pain. He is also found to be hypoxic. His presently on 6 L of O2 by nasal cannula. MD elicited complaint: shortness of breath Pertinent past history: other (Recurrent aspiration) Onset (ago): hour(s) (1) Timing: constant Severity: moderate Exacerbating factors: nothing Relieving factors: oxygen Known history of: aspiration pneumonia Associated symptoms: chest pain Treatment prior to arrival: oxygen Related Data Home oxygen amount: none Home Medications ?Medication ?Instructions ?Recorded ?Confirmed ?Last Taken ?Type zolpidem 10 mg tablet 5 mg feeding tube HS PRN Sleep 09/07/21 10/15/24 01/14/24 History finasteride 5 mg tablet (Proscar) 5 mg feeding tube DAILY 03/05/22 10/15/24 01/14/24 History diazepam 10 mg tablet (Valium) 20 mg PO HS 05/19/22 10/15/24 01/14/24 History ondansetron HCl 4 mg tablet 4 mg feeding tube Q4H PRN nausea 05/19/22 10/15/24 05/17/22 22:00 History and [id number] acetaminophen 325 mg tablet 325 mg PO Q4H PRN Pain (Scale 01/15/24 10/15/24 01/15/24 00:56 History Score 1-3) zolpidem 5 mg tablet 5 mg feeding tube HS 01/15/24 10/15/24 01/14/24 History Allergies Allergy/AdvReac Type Severity Reaction Status Date / Time No Known Allergies Allergy Verified 10/15/24 15:53 Review of Systems Review of Systems: All systems reviewed & are unremarkable except as noted in HPI and below Constitutional: Constitutional: Reports no additional constitutional complaints Eyes: Eyes: Reports no additional eye complaints ENT: Reports system reviewed and no additional complaints, except as documented Cardiovascular: Cardiovascular: Reports no additional cardiovascular complaints Respiratory: Respiratory: Reports as per HPI Gastrointestinal: Gastrointestinal: Reports abdominal pain (From postop) REPLACED BY [facility] Past Medical History Medical History Primary squamous cell carcinoma of head and neck (~2013) Insomnia Radiation-induced brachial plexopathy Dysarthria Dysphonia Dysphagia History of aspiration pneumonia Constipation Malfunction of gastrostomy tube Gastrostomy tube dependent Spina bifida as a child with surgery; residual 'bladder issues' Cervical spine disease History of throat cancer XRT and surgery GERD (gastroesophageal reflux disease) Hypothyroid Surgical History Surgical History History of throat surgery PEG (percutaneous endoscopic gastrostomy) status History of ear, nose, and throat (ENT) surgery Family History Family History Mother Colon cancer Social History Social History Social History: Lives at home with . Never smoked. No alcohol and drug use. Code status: Full code. Surrogate decision maker: Smoking status: Never smoker Second hand tobacco smoke exposure: No Alcohol intake: never Substance use: never Substance use type: does not use Do You Feel Safe in your Home?: Yes Lack of Transportation: No Lack of Food: Never True Current Housing: I Have Housing Concerned About Future Housing: No Difficulty Paying Gas/Electric Bills: No Difficulty Paying for Meds: No Currently Unemployed: No Education: Bachelor's Degree Difficulty w/ Childcare or Family Care: No Living arrangements: with family Gender identity (if verbalized by the patient): Male Sexual Orientation (if Verbalized by the Patient): Straight or Heterosexual Spiritual care concerns: No Agree to blood products: Yes Exam Narrative: GENERAL: Well-appearing, well-nourished, and in no acute distress. HEAD: Normocephalic, atraumatic. EYES: PERRLA and EOMI. ENT: Nares clear, no rhinorrhea or epistaxis. Mucous membranes moist. Hoarse voice NECK: Supple. CHEST: Coarse breath sounds. No respiratory distress. HEART: Regular rate and rhythm. No murmur heard. Normal peripheral pulses. ABDOMEN: Soft, nontender, nondistended, normal active bowel sounds. EXTREMITIES: Normal range of motion. No edema. SKIN: Warm, dry, no rash. NEURO: No focal deficits. Alert and oriented x3. PSYCH: Normal mood and affect. Course Course Emergency Course: Patient and his were notified about the lab work, chest x-ray findings. Will start IV Zosyn. Discussed with the hospitalist accepted the patient Vital Signs Vital signs: Vital Signs Temperature 37.7 C H 12/06/24 00:43 Pulse Rate 112 H 12/06/24 00:43 Respiratory Rate 32 H 12/06/24 00:43 Blood Pressure 147/90 H 12/06/24 00:43 Pulse Oximetry 92 12/06/24 00:43 Oxygen Delivery Nasal Cannula 12/06/24 00:43 Oxygen Flow Rate 6 12/06/24 00:43 Temperature 37.7 C H 12/06/24 00:43 Pulse Rate 112 H 12/06/24 00:43 Respiratory Rate 32 H 12/06/24 00:43 Blood Pressure 147/90 H 12/06/24 00:43 Pulse Oximetry 92 12/06/24 01:09 Oxygen Delivery Nasal Cannula 12/06/24 01:09 Oxygen Flow Rate 6 12/06/24 01:09 MDM - SOB/Dyspnea Differential Diagnosis Differential diagnosis: Likely congestive heart failure, community acquired pneumonia and other (Aspiration pneumonia) Medical Records Attestation: I reviewed the patient's medical records. Lab Data Attestation: I reviewed the patient's lab results. 12/06/24 01:05 12/06/24 01:05 Labs: Lab Results 12/06/24 Range/Units 01:05 WBC 10.2 H (4.5-10.0) K/mm3 RBC 4.54 L (4.6-6.20) M/mm3 Hgb 14.6 D (14.0-18.0) g/dL Hct 45.1 (42.0-52.0) % MCV 99.3 (80-100) fl MCH 32.2 (26-34) pg MCHC 32.4 (32-36) g/dl RDW 12.6 (11.5-14.5) % Plt Count 137 L (150-375) k/mm3 MPV 12.7 H (7.4-10.4) fl Immature Gran % (Auto) Not Reportable Neut % (Auto) Not Reportable Lymph % (Auto) Not Reportable [place] % (Auto) Not Reportable Eos % (Auto) Not Reportable Baso % (Auto) Not Reportable Lymph # (Auto) Not Reportable [place] # (Auto) Not Reportable Eos # (Auto) Not Reportable Baso # (Auto) Not Reportable Abs Immat Gran (auto) Not Reportable Absolute Neuts (auto) Not Reportable Absolute Nucleated RBC Not Reportable Total Counted 100 Neutrophils % (Manual) 85 H (46-73) % Band Neutrophils % 9 H (0-6) % Lymphocytes % (Manual) 3.0 L (18-44) % Monocytes % (Manual) 2 L (3-9) % Basophils % (Manual) 1 (0-1) % Nucleated RBC % Not Reportable Abs Neuts (Manual) 9.58 H (1.3-6.7) K/mm3 Abs Lymphs (Manual) 0.30 L (1.1-4.5) K/mm3 Abs Monocytes (Manual) 0.20 (0.1-0.90) K/mm3 Abs Basophils (Manual) 0.10 (0.0-0.1) K/mm3 Smudge Cells Present Platelet Estimate Slightly decreased (Adequate) Giant Platelets Present Schistocytes None seen PT 14.3 (11.1-14.7) Seconds INR 1.1 APTT 27.6 (22.3-36.8) Seconds Sodium 134 L (137-145) mmol/L Potassium 4.2 (3.4-5.0) mmol/L Chloride 100 (98-107) mmol/L Carbon Dioxide 27 (22-30) mmol/L Anion Gap 7 (4-12) mmol/L BUN 27 H D (9-20) mg/dL Creatinine 0.73 (0.7-1.3) mg/dL Estim Creat Clear Calc 74 ml/min Estimated GFR > 60 (59 - ) Glucose 140 H (65-110) mg/dL Lactic Acid 1.4 (0.7-2.0) mmol/L Calcium 8.5 (8.4-10.2) mg/dL Total Bilirubin 0.8 (0.2-1.3) mg/dL AST 26 (17-59) U/L ALT 17 (6-50) U/L Alkaline Phosphatase 77 (38-126) U/L Troponin I < 0.012 (0.000-0.034) ng/mL C-Reactive Protein 0.7 (<1.0) mg/dL Total Protein 6.7 (6.3-8.2) g/dL Albumin 4.1 (3.5-5.1) g/dL Lipase 41 (23-300) U/L Imaging Data My impression: Right lower lobe pneumonia ECG Data EKG #1: ECG completion date: 12/06/24 ECG completion time: 00:51 EKG Interpretation: tachycardia (108), no ectopy, no ST changes, NL axis and no acute changes (left anterior fascicular block) Discharge Plan Discharge Clinical Impression: Aspiration pneumonia, Hypoxia Patient Disposition: Still a Patient Condition: Stable Patient Language: Greenlandic Prescriptions: No Action finasteride [Proscar] 5 mg tablet 5 mg feeding tube DAILY ondansetron HCl 4 mg tablet 4 mg feeding tube Q4H PRN (Reason: nausea and [id number]) diazepam [Valium] 10 mg Tablet 20 mg PO HS acetaminophen 325 mg Tablet 325 mg PO Q4H PRN (Reason: Pain (Scale Score 1-3)) zolpidem 5 mg tablet 5 mg feeding tube HS zolpidem 10 mg Tablet 5 mg feeding tube HS PRN (Reason: Sleep) Rx Instructions: if 5mg scheduled dose not effective Follow-up/Referrals: Larry Hinojosa [Other] Time of Disposition: 02:04
[2024-12-06] MEDS: SODIUM CHLORIDE 0.9% IV 1,000 ML 125 ML IV CONT ×3 (02:55→20:36)
[2024-12-06] MEDS: diazePAM INJ (*CRX) 10 MG/2 ML SYRINGE 5 MG IV PUSH (04:21)
[2024-12-06 04:30] LABS: Add Urine Microscopic? YES; Appearance Urine Clear (Clear); Glucose Urine UA Negative (Negative); Leukocyte Esterase Ur Trace LEU/UL (Negative); Nitrate Urine Negative (Negative); Non Pathogenic Casts 0-2; Specific Grav Ur 1.025 (1.001-1.035)
[2024-12-06] MEDS: ONDANSETRON INJ 4 MG/2 ML VIAL IV PUSH (09:12)
--- NOTE | 2024-12-06 10:28 | PC.NURSE ---
Attempted call to sewing machine repairer regarding pt's tube feeding. Pt typically does 24/hr tube feeding with Complete Peptide at 75ml/hr per . BG rechecked this AM and WNL.
--- NOTE | 2024-12-06 11:14 | PC.NURSE ---
G-Tube and J-Tube both flushed with 30cc tap water. Flushed easily without resistance. Pt denies complaint at this time. Reports nausea has resolved. A&Ox4. NAD noted at this time.
--- NOTE | 2024-12-06 11:30 | PC.NURSE ---
RN spoke with pt's for an update.
--- NOTE | 2024-12-06 12:01 | PC.NURSE ---
RN spoke with pt and family who report pt is currently using Complete Peptide at 70ml/hr at home. Pt and both report pt uses Jevity 1.5 while in the hospital at 70ml/hr. Spoke with Dr. Cerna who is agreeable to this supplement. Dietary called to request bottle of Jevity 1.5.
--- NOTE | 2024-12-06 13:04 | PC.NURSE ---
Tube feed started at this time. Jevity 1.5 70ml/hr w/ 60ml q6 WF.
--- NOTE | 2024-12-06 13:12 | P.HP_ITS ---
H&P: HPI History of Present Illness Date/Time: 12/06/24 13:12 Chief Complaint: Fever and generalized weakness Narrative: 69-year-old male past medical history throat cancer status post resection with affectation of swallowing and voice, on GJ tube which was exchanged 2 days ago, presented to the ER last night due to Fever and generalized weakness whcih was sudden. Noted that coughed up brownish sputum. noted they had difficulty with kevin new Gj tube however they seem to have figured it out. Otherwise denies any chest pain, SOB, abd pain, diarrhea or dysuria. On room air at baseline ER eval notable for HR 105, RR 29, BP 135/78, O2 sats 95% on 2 liters Labs notable for 10.2, Lactic acid 1.4 CXR showed scattered bilateral foci airspace disease ?Acute vs chronic Review of Systems Review of Systems: All other systems were reviewed and negative except as noted in the HPI above PMFSH Past Medical History Medical History Primary squamous cell carcinoma of head and neck (~2013) Insomnia Radiation-induced brachial plexopathy Dysarthria Dysphonia Dysphagia History of aspiration pneumonia Constipation Malfunction of gastrostomy tube Gastrostomy tube dependent Spina bifida as a child with surgery; residual 'bladder issues' Cervical spine disease History of throat cancer XRT and surgery GERD (gastroesophageal reflux disease) Hypothyroid Surgical History Surgical History History of throat surgery PEG (percutaneous endoscopic gastrostomy) status History of ear, nose, and throat (ENT) surgery Family History Family History Mother Colon cancer Social History Social History Social History: Lives at home with . Never smoked. No alcohol and drug use. Code status: Full code. Surrogate decision maker: Smoking status: Never smoker Second hand tobacco smoke exposure: No Alcohol intake: never Substance use: never Substance use type: does not use Do You Feel Safe in your Home?: Yes Lack of Transportation: No Lack of Food: Never True Current Housing: I Have Housing Concerned About Future Housing: No Difficulty Paying Gas/Electric Bills: No Difficulty Paying for Meds: No Currently Unemployed: No Education: Bachelor's Degree Difficulty w/ Childcare or Family Care: No Living arrangements: with family Gender identity (if verbalized by the patient): Male Sexual Orientation (if Verbalized by the Patient): Straight or Heterosexual Spiritual care concerns: No Agree to blood products: Yes Meds Home Medications and Allergies Home Medications ?Medication ?Instructions ?Recorded ?Confirmed ?Type zolpidem 10 mg tablet 5 mg feeding tube HS PRN Sle ep 09/07/21 10/15/24 History finasteride 5 mg tablet (Proscar) 5 mg feeding tube DA KENDRA 03/05/22 10/15/24 History diazepam 10 mg tablet (Valium) 20 mg PO HS 05/19/22 History ondansetron HCl 4 mg tablet 4 mg feeding tube Q4H PRN nausea 05/19/22 10/15/24 History and [id number] acetaminophen 325 mg tablet 325 mg PO Q4H PRN Pain (Sc pushpa 01/15/24 10/15/24 History Score 1-3) zolpidem 5 mg tablet 5 mg feeding tube HS 4 10/15/24 History Allergies Allergy/AdvReac Type Severity Reaction Status Date / Time No Known Allergies Allergy Verified 10/15/24 15:53 Vital Signs Vital Signs - 24 hr 12/06/24 00:43 12/06/24 01:09 12/06/24 01:22 Temperature 99.9 F H Pulse Rate 112 H 105 H Respiratory Rate 32 H 29 H Blood Pressure 147/90 H Pulse Oximetry 92 92 95 Oxygen Delivery Nasal Cannula Nasal Cannula Oxygen Flow Rate 6 6 12/06/24 01:30 12/06/24 01:31 12/06/24 01:45 Temperature Pulse Rate 104 H 104 H 104 H Respiratory Rate 26 H 27 H 25 H Blood Pressure 135/78 Pulse Oximetry 99 99 97 Oxygen Delivery Oxygen Flow Rate 12/06/24 01:53 12/06/24 02:00 12/06/24 02:01 Temperature Pulse Rate 105 H 107 H 106 H Respiratory Rate 27 H 24 H Blood Pressure 107/53 L 114/65 Pulse Oximetry 97 97 97 Oxygen Delivery Oxygen Flow Rate 12/06/24 02:15 12/06/24 02:16 12/06/24 02:30 Temperature Pulse Rate 110 H 109 H 107 H Respiratory Rate 26 H 27 H 22 H Blood Pressure 87/58 L Pulse Oximetry 96 96 97 Oxygen Delivery Oxygen Flow Rate 12/06/24 02:30 12/06/24 02:31 12/06/24 02:45 Temperature Pulse Rate 106 H 106 H Respiratory Rate 23 H 22 H Blood Pressure 105/54 L Pulse Oximetry 96 97 96 Oxygen Delivery Nasal Cannula Oxygen Flow Rate 4 12/06/24 02:46 12/06/24 02:47 12/06/24 03:00 Temperature Pulse Rate 107 H 108 H 108 H Respiratory Rate 23 H 23 H 27 H Blood Pressure 106/58 L Pulse Oximetry 97 96 95 Oxygen Delivery Oxygen Flow Rate 12/06/24 03:00 12/06/24 03:01 12/06/24 03:33 Temperature Pulse Rate 115 H 105 H Respiratory Rate 20 22 H Blood Pressure 99/76 L Pulse Oximetry 96 95 96 Oxygen Delivery Nasal Cannula Oxygen Flow Rate 3 12/06/24 04:02 12/06/24 04:15 12/06/24 04:16 Temperature Pulse Rate 105 H 108 H 104 H Respiratory Rate 21 H 22 H 23 H Blood Pressure 144/73 H Pulse Oximetry 96 96 97 Oxygen Delivery Oxygen Flow Rate 12/06/24 04:30 12/06/24 04:31 12/06/24 04:45 Temperature Pulse Rate 101 H 103 H 103 H Respiratory Rate 21 H 21 H 21 H Blood Pressure 129/64 Pulse Oximetry 96 96 97 Oxygen Delivery Oxygen Flow Rate 12/06/24 04:46 12/06/24 05:00 12/06/24 05:00 Temperature Pulse Rate 106 H 102 H Respiratory Rate 23 H 19 Blood Pressure 127/78 Pulse Oximetry 97 97 98 Oxygen Delivery Nasal Cannula Oxygen Flow Rate 2 12/06/24 05:01 12/06/24 05:15 12/06/24 05:16 Temperature Pulse Rate 102 H 105 H 103 H Respiratory Rate 21 H 21 H 23 H Blood Pressure 123/72 128/79 Pulse Oximetry 97 97 97 Oxygen Delivery Oxygen Flow Rate 12/06/24 05:30 12/06/24 05:31 12/06/24 05:45 Temperature Pulse Rate 102 H 103 H 101 H Respiratory Rate 21 H 21 H 23 H Blood Pressure 135/71 Pulse Oximetry 97 98 98 Oxygen Delivery Oxygen Flow Rate 12/06/24 05:46 12/06/24 06:00 12/06/24 06:01 Temperature Pulse Rate 100 98 103 H Respiratory Rate 21 H 21 H 21 H Blood Pressure 125/73 110/63 Pulse Oximetry 98 98 97 Oxygen Delivery Oxygen Flow Rate 12/06/24 06:15 12/06/24 06:16 12/06/24 09:57 Temperature 98.5 F Pulse Rate 100 97 84 Respiratory Rate 22 H 22 H 17 Blood Pressure 133/79 121/74 Pulse Oximetry 98 98 95 Oxygen Delivery Oxygen Flow Rate 12/06/24 09:57 12/06/24 12:05 12/06/24 12:06 Temperature Pulse Rate 82 Respiratory Rate 17 Blood Pressure 112/73 Pulse Oximetry 95 100 95 Oxygen Delivery Nasal Cannula Nasal Cannula Oxygen Flow Rate 2 2 Exam Narrative: General: alert and comfortable Eyes: EOMI, PERRLA ENNT, hypophoni a External ears normal, Neck is supple, no masses, Respiratory systems: Clear to auscultation Cardiovascular S1, S2, normal rhythm, no murmur, rub, or gallop; no thrill or palpable murmurs on palpation. Gastrointestinal: soft, non-tender, and non-distended abdomen with no masses; GJ tube in situ BS present Skin: no rash, lesions, ulcerations, subcutaneous nodules or induration Musculoskeletal: no abnormality and no tenderness, normal ROM Neurologic: Alert and oriented x3, non focal Mental Status Exam: normal affect H&P: Results Labs Labs: Short CBC 12/06/24 Range/Units 01:05 WBC 10.2 H (4.5-10.0) K/mm3 Hgb 14.6 D (14.0-18.0) g/dL Hct 45.1 (42.0-52.0) % Plt Count 137 L (150-375) k/mm3 [facility] 12/06/24 01:05 Sodium 134 L Potassium 4.2 Chloride 100 Carbon Dioxide 27 BUN 27 H D Creatinine 0.73 Glucose 140 H Calcium 8.5 Cardiac Enzymes 12/06/24 Range/Units 01:05 Troponin I < 0.012 (0.000-0.034) ng/mL Liver Function 12/06/24 Range/Units 01:05 Total Bilirubin 0.8 (0.2-1.3) mg/dL AST 26 (17-59) U/L ALT 17 (6-50) U/L Alkaline Phosphatase 77 (38-126) U/L Albumin 4.1 (3.5-5.1) g/dL Urine 12/06/24 Range/Units 04:22 Urine Color Yellow (Yellow) Urine Appearance Clear (Clear) Urine pH 8.0 (5.0-9.0) Ur Specific [place] 1.025 (1.001-1.035) Urine Protein 1+ H (Negative) mg/dL Urine Glucose (UA) Negative (Negative) mg/dL Assessment and Plan Assessment and plan (1) Acute hypoxic respiratory failure: Code(s): J96.01 - Acute respiratory failure with hypoxia Status: Acute (2) Aspiration pneumonia: Qualifiers: Aspiration pneumonia type: unspecified Laterality: unspecified laterality Lung location: unspecified part of lung Qualified Code(s): J69.0 - Pneumonitis due to inhalation of food and vomit Code(s): J69.0 - Pneumonitis due to inhalation of food and vomit Status: Acute Plan Pneumonia with Sepsis Tachypnea, Tachycardia and Leukocytosis and pneumonia CXR showed bilateral infiltrates but ?chronic CT chest ordered Blood and sputum cultures, MRSA Continue Rocephin, Flagyl and Azithromycin monitor Acute hypoxemic respiratory failure Room air at baseline Form Pneumonia titrate home meds with clinical course Hx throat cancer s/p resection with affectation of swallowing and hypophonia on GJ tube CT AP ordered to evaluate obstruction and GJ tube position Tube feeding monitor DVT prophylaxis on Sq Lovenox Full code SDM: Nolvia Akhtar Hospitalist [facility] Advance Care Plan I have confirmed that the patient's Advanced Care Plan is present, code status is documented, or surrogate decision maker is listed in patient medical record.: Yes Medication Reconciliation I have utilized all available resources to obtain, update and review the patients current medications (includes all prescriptions, OTC, herbals, cannabis, and nutritional supplements).: Yes
[2024-12-06] MEDS: ENOXAPARIN 40 MG/0.4 ML SYRINGE SUB-Q (14:33)
[2024-12-06] MEDS: AZITHROMYCIN IV 500 MG in SODIUM CHLORIDE 0.9% IV 250 ML IVPB (14:34)
--- OUTSIDE RECORDS SUMMARY | 2024-12-06 14:45 | XMS_ITS ---
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 Name Role Phone Robbin Willis MD PhD Unavailable [phone] Noelle Rowland Unavailable Unavailab Jessica Ta RN Unavailable Un available Kimberlee Damon RN Unavailable Unavailab Malvin Gillis MD Unavailable [phone] Lloyd Sykes MD Unavailable [phone] Charlene Gomez DO Unavailable [phone] Larry Hinojosa MD Primary Care Provider + Larry Hinojosa MD Unavailable [phone] Miscellaneous, Not In File Unavailable Unava ilable Shakeel Thakkar MD Unavailable [phone] Active Problems Problem Noted Date Diagnosed Date Bronchiectasis without acute exacerbation 2024 Aspiration pneumonia of both lower lobes due to gastric secretions 03/01/2024 Shortness of breath 02/29/2024 Acute respiratory failure with hypoxia and hyper capnia 02/09/2024 COVID 02/09/2024 Infection due to Stenotrophomonas maltophilia Pneumonia due to Pseudomonas species 01/25/2024 Collapse of right lung 01/24/2024 Hypernatremia 01/22/2024 Acute respiratory failure with hypoxia Personal history of colonic polyps 10/29/2023 Chronic laryngitis 12/04/2022 Assessment & Plan (12/04/2022 11:33 AM CDT): Augmentin 800 mg twice daily per Peg tube for 14 days Gargle and spit with warm salt water Humidifier at bedside Follow up in 2 months Moderate protein-calorie malnutrition 08/19/2022 Gastrostomy tube dysfunction 08/18/2022 High risk medication use 08/18/2022 Spina bifida of lumbar region without hydrocepha jneiffer 07/04/2021 Feeding difficulty 10/21/2020 Assessment & Plan (10/21/2020 11:21 AM CDT): Patient was having problems with the feeding tube with cirrhosis to sanguinous discharge. There might be mild cellulitis around the PEG tube. No abscess formation. Will give the patient Augmentin suspension 3 times daily for 10 days. Patient was also given prescription for liquid Vicodin to use for pain as needed. Patient to to continue daily wet-to-dry dressing and no need for topical ointments. Patient to call if no benefit. There was mild overgrowth of granulation tissue under the feeding tube in this can be cauterize at a later stage if persist. About 6 weeks we can exchange this PEG tube to a low-profile tube that will give him more functional capability and freedom. Severe malnutrition 08/19/2020 Recurrent aspiration pneumonia 08/15/2020 Neurogenic orthostatic hypotension 03/04/2020 Assessment & Plan (03/04/2020 4:47 PM BACK LINE COOK): On standing drops 50 and not able to make the sitting better without drooing the Standing way low discussed suport hose to Help. tiral salt retentnio andsitting bp went way up so no more Asymptomatic microscopic hematuria 02/28/2020 Laryngeal candidiasis 01/18/2020 Assessment & Plan (01/18/2020 1:50 PM BACK LINE COOK): Nystatin swish, gargle and spits 3-4 times per day Monitor for improvement in oropharynx 64 ounces of caffeine free and soda free fluid daily Labile blood pressure 11/19/2019 PATRICK (dyspnea on exertion) 11/19/2019 Benign prostatic hyperplasia with weak urinary s tream 11/19/2019 Vitamin D deficiency 11/19/2019 Acquired hypothyroidism 10/07/2019 Assessment & Plan (03/04/2020 4:49 PM BACK LINE COOK): tsh 8 and taking 1/4 of a thyroid pill and will check tsh then in 6wks or so Assessment & Plan (10/07/2019 3:58 PM CDT): Likely from radation and with midl tsh elevatnio will start low with 25ug and if gets tsh Down this will also help the ldl to drop Laryngopharyngeal reflux (LPR) 07/16/2019 Assessment & Plan (07/19/2020 2:33 PM CDT): Peridex swish and spit after meals and before bedtime Multivitamin daily, crushed up in applesauce. 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 Valium uses 1/4-1/2 at time but Take up to 2 a day. . Long talk about current state of narcotics and sedatives are not scripted together and I have nobody taking this combo and catia this dose. Aware of current concerned of added effedft of two and over sedation and not breathing. . I feel there will lkely be a time that caking Both will hit the wall and not be given together. agreres to work Down and target off on return At high risk for falls 10/01/2018 Assessment & Plan (10/07/2019 3:55 PM CDT): High fall risk . Work with Balance and ti chi discussed Assessment & Plan (10/01/2018 4:13 PM CDT): High fall risk Statin-induced myositis 10/01/2018 Assessment & Plan (10/01/2018 4:16 PM CDT): Work to take trace Colon cancer screening 10/01/2018 Assessment & Plan (10/07/2019 3:57 PM CDT): High fall risk depreison screen neg cog screen nl up to date on colon. psa due and order for nov. Does not take any cvaccines and aware of desire to take flu pshot series shingles shot series. Assessment & Plan (10/01/2018 4:19 PM CDT): Screen on return Aspiration pneumonia 08/31/2018 Assessment & Plan (03/04/2020 4:45 PM BACK LINE COOK): demo'd of recurrent aspiratoni and now working the new swallowing techiquie and can see a difference and fever gonve since the day vefore dc/d no diarrhea from meds. Moderate malnutrition 08/31/2018 Assessment & Plan (10/07/2019 2:09 PM CDT): pusing nutritno and oral intake the issues Assessment & Plan (05/19/2019 12:06 PM CDT): Needs any and all foods and no limits but rx meds for lipid controll Assessment & Plan (04/08/2019 2:12 PM BACK LINE COOK): Work to keep wt up. Along with caloric supplements Assessment & Plan (10/01/2018 4:12 PM CDT): Wt apears stble at 2 donw Iand suspect serene creep up. And monitor to confirm Diverticulosis 07/28/2018 Pure hypercholesterolemia 04/03/2018 Assessment & Plan (10/07/2019 3:59 PM CDT): ldl at 107 and want tighter. Look at med chagnes to get tighter. Full atorvastin 10 and no diet changes . rechecked this fall with ideal 60 or less and given Calorie will ask for no diet changes Assessment & Plan (05/19/2019 12:05 PM CDT): Cont meds and will need labs in future Assessment & Plan (04/08/2019 2:01 PM BACK LINE COOK): Restart trace Dose statin to target ldll less then 100. No diet Assessment & Plan (10/01/2018 4:11 PM CDT): Check in future no diet Assessment & Plan (04/03/2018 1:37 PM BACK LINE COOK): ldl drooped to 106 and 40 drop and will start lipitor 10 and take 1/2 a pill a day. If for some reason can't take then stop and 1-2 wks later Take the 1/2 Pil over a week. Your cholesterol in the form of ldl (bad) cholesterol,hdl(good) cholesterol and triglycerides are monitored. The triglycerides respond to reduction/controll of your simple carbs/sugars In such items as sugared soda/sweet tea along with fruit juices(containing natural sugar) even if no added sugar is added. LDL cholesterol is reduced with reducing daily intake of fats and catia. saturated fats. The monosaturated fats like olive oil are not harmful except in the calories they contained. Whole milk cheese needs to be remembered along with whole milk products And limited. Nodule of spleen 04/03/2018 Assessment & Plan (04/03/2018 1:46 PM BACK LINE COOK): Ct shows sub centimeter lesion to sl=mall to Discribe. Will do sono of spleen in 5-6 m onths before seen in f.u IGT (impaired glucose tolerance) 04/03/2018 Assessment & Plan (10/07/2019 3:54 PM CDT): Nl and stable and nodiet limtis Assessment & Plan (05/19/2019 12:05 PM CDT): Check a1c on returjn Assessment & Plan (04/08/2019 2:00 PM BACK LINE COOK): Check on feturn Assessment & Plan (10/01/2018 4:12 PM CDT): a1c at 5/4 and nl Assessment & Plan (04/03/2018 1:51 PM BACK LINE COOK): No diet and check on retiurn Benign prostatic hyperplasia with incomplete bladder emptying 01/23/2018 Assessment & Plan (04/08/2019 2:12 PM BACK LINE COOK): Watch for retention Assessment & Plan (01/23/2018 1:32 PM BACK LINE COOK): Trial flomax and see if helps and refer to uro for eval and o pion. psa driftin gup . Still well within range nl but cl imbing and can be from obstructiin prostate and cancer less likely. Abdominal aortic atherosclerosis 01/23/2018 Assessment & Plan (10/07/2019 2:08 PM CDT): Risk contorll an d adding thyroid serene drp the ldl target les the 100 Assessment & Plan (05/19/2019 12:06 PM CDT): Given malnlutrition no diet but meds to contrll risk Assessment & Plan (04/08/2019 1:59 PM BACK LINE COOK): Retry statin and try for tighter ldl and dialy asa Assessment & Plan (10/01/2018 4:20 PM CDT): Asa and ldl Tight contorll and check onretiurn restrt asa and restart trace liopitor 1/4 a week Assessment & Plan (04/03/2018 1:35 PM BACK LINE COOK): Target better risk controll and agrees to trial low dose statin Assessment & Plan (01/23/2018 1:34 PM BACK LINE COOK): Seen on ct and want to c heck o risk and consider opton to reduce sa if tolerant of Urinary urgency 01/07/2018 Assessment & Plan (01/07/2018 2:23 PM BACK LINE COOK): Description patient office in regard to possible chronic BPH versus acute prostatitis. Incentive caution considering his urine dip results, night sweats, and acute symptoms I am encouraging him to move forward with at least a week of treatment of Cipro 250 twice daily covering for acute prostatitis to which we can certainly extend once urine culture determine its pyuria for the full 2 week course. I did discuss trying Flomax he stated he would like to wait at this time I provided copious education regarding the use of Flomax as well as finasteride regarding both the use of BPH. Patient is quite concerned of these medications causing cancer I did write them down providing the research I had available encourage him that we will go ahead check a PSA and CBC considering he refused to have his ZULEIKA completed and certainly touch base regarding all results of labs in the next week. Chronic neoplasm-related pain 12/04/2017 Hx of adenomatous colonic polyps 11/01/2017 Assessment & Plan (05/22/2020 5:05 PM CDT): Due for colonoscopy July 2023 Assessment & Plan (07/28/2018 4:44 PM CDT): Repeat colonoscopy November 2022 Assessment & Plan (11/01/2017 10:42 PM CDT): The patient had colonoscopy August 2013. He still may be somewhat early to have it repeated. He will occasionally notice a trace blood he has had this before with hemorrhoids. I think for this 1st time of dilation we should hold off on colonoscopy. We may want to perform it at the subsequent dilation if needed. Weight loss 02/22/2017 Assessment & Plan (08/13/2017 4:26 PM CDT): Using g tube. Cover area around are with silvadene. 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 Norman is prescribing his tube feedings. We will obtain metabolic workup per patient's request. Should this return normal he was to reach out to Dr. Norman to discuss increasing his daily caloric intake. Primary care provider had mentioned use of Remeron or Megace to stimulate patient appetite. However, he is currently unable to take in adequate calories by mouth. He is only taking sips of water. This may be beneficial in the future but for the time being we will refrain from use. Further direction pending diagnostic test results. They were encouraged to contact the office if they had not heard from me by Saturday for review. Cough 02/15/2017 Assessment & Plan (07/16/2019 1:25 PM CDT): Zpak CXR - call with results Assessment & Plan (08/13/2017 4:29 PM CDT): Constant cougho post radiation and serene cont til ulcer from burn heals. Assessment & Plan (02/22/2017 3:12 PM BACK LINE COOK): His cough has resolved other than to expel secretions. There is no sign of underlying infection noted on exam today. He will complete his antibiotic course as previously directed. Humidification fluids were once again encouraged. Primary insomnia 01/02/2017 Assessment & Plan (01/02/2017 3:50 PM BACK LINE COOK): Refilled Ambien 10 mg tablets q.h.s. patient was advised follow up in 4 months regarding condition Chronic anxiety 01/02/2017 Assessment & Plan (01/02/2017 3:50 PM BACK LINE COOK): Refilled diazepam 10 mg tablets b.i.d. p.r.n. for acute relief anxiety. Patient was advised follow up in 4 months regarding condition Throat pain 08/16/2016 Assessment & Plan (05/19/2019 10:52 AM CDT): Couple months progressive tight sense and more issue with swallowing. Worried about not being abot o breath and need trach not seen ent for 18 months +. Prior eval with ulceratinop and post rt For ca Assessment & Plan (08/13/2017 4:27 PM CDT): Post radiation burn and seeing. buttermaker helper inflamation and ongoing issues. No answer but time Assessment & Plan (08/16/2016 2:43 PM CDT): Strep neg. Risk was low. Will do a cultpure back up and if not heard by margaux/cherelle call back for it Chronic pain syndrome 08/16/2016 Assessment & Plan (10/07/2019 3:51 PM CDT): Off mnaolo meds and prn valium usuall 2 and asking for occasional 3 Assessment & Plan (04/03/2018 1:54 PM BACK LINE COOK): Off norco in 1-2 wks and will not fill onced gets valium Assessment & Plan (01/23/2018 1:46 PM BACK LINE COOK): Seeing pain md. Using 2 tid norco /325. Long talk of dual sedatives with hydrocodone and valium now averages 1 hydrocodone and told we don't nl'ly sc ript both to same patient. Will di rect to educate self on and talk a bout taper on valium Assessment & Plan (01/30/2017 5:01 PM BACK LINE COOK): Cont meds and diet Assessment & Plan (08/16/2016 2:45 PM CDT): Chronic pain and on Hydrocodone. Tramadol use as primary pain and add the hydrocodone as after that. Sensorineural hearing loss (SNHL) 02/08/2016 Lymphadenopathy 01/19/2016 Dysphagia 11/02/2015 Assessment & Plan (02/27/2021 5:06 PM BACK LINE COOK): Continue tube feeds Consider speech therapy to improve swallow Modified barium swallow Centralized Scheduling: Continue omeprazole Humidifier in bedtime Assessment & Plan (10/21/2020 11:17 AM CDT): Patient has chronic dysphagia since his the thyroid cancer treatment with radiation therapy. He has been managing fairly well until few months ago after an episode of pneumonia and a PEG tube was placed. Will try to use liquid from medications. Follow-up progress. Assessment & Plan (07/19/2020 8:47 PM CDT): Peridex swish and spit after meals and before bedtime Multivitamin daily, crushed up in applesauce. 64 ounces of caffeine free and soda free fluid daily 2-3 nutritional shakes per day Assessment & Plan (05/22/2020 5:06 PM CDT): The patient may possibly have some element of stricturing from radiation and surgery. He likely still has some residual for pharyngeal weakness as well. Recommend upper endoscopy with dilation of the esophagus to see that helps his symptoms of dysphagia if post radiation stricturing is present. Assessment & Plan (07/16/2019 1:23 PM CDT): Zpak Start Pepcid [address] Neck - call with results Barium swallow - call with results 64 ounces of caffeine free and soda free fluid daily Softer diet, with additional nutritional shakes Assessment & Plan (05/19/2019 10:59 AM CDT): Prior dilatation and not for wosome time re eval and then see what recs there are for treatment and Tumor recusrence that is worried about This was a telemedicine visit with Mal akhtar which took place via phone . During the visit, I was located at our office and the patient was located at his home. The session started at 10:34 and ended at 10:59 The patient has been informed that the visit may not be secure and acknowledged the information. I have explained the option of participating in a telephone or video visit during the COVID-19 public health emergency to the patient. After being given an opportunity to ask questions about and discuss this type of visit, the patient verbally consented to proceeding with the telephone / video visit. The patient understands that this service replaces an office visit and they may be billed and/or responsible for any applicable copayments. Assessment & Plan (08/18/2018 4:08 PM CDT): He is tolerating oral solid and liquids. Assessment & Plan (07/28/2018 4:43 PM CDT): The G-tube was removed in the office. This was by applying gentle and constant traction to the tube and withdrawal. The tube was successfully removed. There was no evidence of any significant bleeding. The site was observed. This was then dressed with antibiotic ointment and 4 x 4. Instructions were given to the patient as to care of the site. He was also instructed to call for any difficulties. 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 Anders performed Base of Tongue and Right neck dissection September 2015 and then in January 2016 left neck dissection. He reported refusing Radiation and Chemotherapy at that time. Seen by Dr. Norman and 4 surgeries done to remove multiple positive lymph nodes in the neck and base of tongue February 2016 to July 2016. Agreed to Radiation and underwent radiation therapy 34 treatments in 2016. In 2017 and biopsy done which was negative for malignancy. PEG tube removed last September. He reported since May neck and throat were tightening up more. Overall things have improved. 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 Anders performed Base of Tongue and Right neck dissection September 2015 and then in January 2016 left neck dissection. He reported refusing Radiation and Chemotherapy at that time. Seen by Dr. Norman and 4 surgeries done to remove multiple positive lymph nodes in the neck and base of tongue February 2016 to July 2016. Agreed to Radiation and underwent radiation therapy 34 treatments in 2016. In 2017 and biopsy done which was negative for malignancy. PEG tube removed last September. He reported since May neck and throat were tightening up more. Overall things have improved. 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 Anders performed Base of Tongue and Right neck dissection September 2015 and then in January 2016 left neck dissection. He reported refusing Radiation and Chemotherapy at that time. Seen by Dr. Norman and 4 surgeries done to remove multiple positive lymph nodes in the neck and base of tongue February 2016 to July 2016. Agreed to Radiation and underwent radiation therapy 34 treatments in 2016. In 2017 and biopsy done which was negative for malignancy. PEG tube removed last September. He reported since May neck and throat were tightening up more. Overall things have improved. Assessment & Plan (02/27/2021 3:19 PM BACK LINE COOK): Continue tube feeds Consider speech therapy to improve swallow Modified barium swallow Continue omeprazole Humidifier in bedtime Assessment & Plan (07/19/2020 2:33 PM CDT): Peridex swish and spit after meals and before bedtime Multivitamin daily, crushed up in applesauce. 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 Anders performed Base of Tongue and Right neck dissection September 2015 and then in January 2016 left neck dissection. He reported refusing Radiation and Chemotherapy at that time. Seen by Dr. Norman and 4 surgeries done to remove multiple positive lymph nodes in the neck and base of tongue February 2016 to July 2016. Agreed to Radiation and underwent radiation therapy 34 treatments in 2017. In 2018 and biopsy done which was negative for malignancy. PEG tube removed last September. He reported since May neck and throat were tightening up more. Overall things have improved. Nystatin swish, gargle and spits 3-4 times per day Monitor for improvement in oropharynx 64 ounces of caffeine free and soda free fluid daily Assessment & Plan (10/07/2019 2:07 PM CDT): Monitored and seing ent for monitoring last month ago Assessment & Plan (07/16/2019 1:24 PM CDT): Zpak Start Pepcid [address] Neck - call with results Barium swallow - call with results 64 ounces of caffeine free and soda free fluid daily Softer diet, with additional nutritional shakes Assessment & Plan (05/19/2019 10:57 AM CDT): Post rt and post Treatment issue not seen now for ? 18 months as ent retired and not restarted progressive issue with tightness and swallowing worryo about need to get a track needs ent eval wanted pet and told it will likely light up from inflamati and not tell not take care of problem and need eval and l hermelindoely scoped and probably recurrent dilation. Referral to ent here to start process and if not happy can always refer on but start here first. Assessment & Plan (10/01/2018 4:04 PM CDT): Active survelance Assessment & Plan (07/28/2018 4:45 PM CDT): Status post radiation treatment which appears to have been successful Assessment & Plan (11/01/2017 10:43 PM CDT): Patient has had surgery and radiation to the neck. There is no evidence of recurrent disease. He has significant stricturing that inhibits him from swallowing a significant amount of solid food. Recommend upper endoscopy with dilation with guidewire guidance. This should be done at [facility]. RSD (reflex sympathetic dystrophy) 09/01/2013 Overview (05/25/2016): UNSP RFLX SYMPTH DYSTRPH Assessment & Plan (10/07/2019 3:51 PM CDT): Stable for llong term Assessment & Plan (10/01/2018 4:11 PM CDT): l leg ongoing and uses cruth st plnt ane to get around Irritable bowel syndrome 07/04/2013 Overview (05/24/2016): IRRITABLE BOWEL SYNDROME Assessment & Plan (10/01/2018 4:12 PM CDT): Ongoing and contorled Impotence of organic origin 11/27/2011 Overview (05/24/2016): IMPOTENCE, ORGANIC ORIGN Assessment & Plan (08/13/2017 4:28 PM CDT): No hormone and n testosterone. No repolacement needed. Hiatal hernia with GERD Assessment & Plan (05/31/2022 2:19 PM CDT): It seems like all of the patient's symptoms are driven from aspiration events. Correcting the hiatal hernia and given the patient an anti-reflux procedure has the strong possibility of a limited eating the majority of this possibility. He is set to see an ENT surgeon about other options of what may be able to be done in June. I am going to touch base with them to see their thoughts as well. In the meantime he should have an upper GI as it has been over 5 years just to make sure that these events are not secondary to some form of tracheoesophageal fistula. I am also going to order esophageal manometry as well as pH testing. It has also been some time since his last upper endoscopy so this should be repeated as well to ensure no changes to suggest Fuller's esophagus or other intragastric pathology. I have preliminarily discussed what correcting the hiatal hernia and fundoplication would involve. We have discussed the biggest issue will be working around the gastrostomy tube that is in place. Further definitive plan will be had once all imaging and testing has been completed and I discuss his case with his ENT surgeon. Current Treatment and Therapy Plans No current plan information found. Past Treatment and Therapy Plans No past plan information found. Lifetime Dose Tracking * Chemical Lifetime Dose Automatic Entry Manual Entr y Fluoro Time 9.7 minutes 9.7 minutes 0 minutes Air kerma at the reference point (Ka,r) 33.6 mGy 3 3.6 mGy 0 mGy Resolved Problems Problem Noted Date Diagnosed Date Resolved Date Malfunction of gastrostomy tube 09/28/2021 03/01/2024 Overview (09/28/2021): Added automatically from request for surgery [id number] Hospital discharge follow-up 03/04/2020 07/04/2021 Assessment & Plan (03/04/2020 4:57 PM BACK LINE COOK): Was not contacted by [facility] for med reconsiliation. There wasa an at tempt yeserday by radha but no note confirmed it was suscewsful drug review here is taking 1/2 of a thyroid pill and h is augment as only new mwed Variation from prior to admit admit from office 02/24 with h and p 02/25 and dc 03/01. Complete antibiotc course and see speech next week to help reinforce swallow hygiiiiiiiievne but high risk for ongoing aspiratino. Acquired hypothyroidism 02/28/202002/18 COVID-19 virus RNA test result unknown 11/19/2019 04/21/2020 Lower urinary tract symptoms 11/06/2019 11/06/2019 Upper respiratory symptom 11/06/2019 Assessment & Plan (11/06/2019 11:15 AM CDT): Recommending supportive therapy for suspected viral URI. Recommending COVID-19 testing via ambulatory/ [facility] care [facility] who will contact her regarding establishing timeframe for testing Pt was advised to self-isolate/quarantine at home for 10 days after symptom onset, afebrile for 24 hours without use of antipyretics. Indications to present to respiratory care clinic or certainly for COVID -19 testing along with recommended symptomatic management provided (along with COVID testing centers w/o need for evaluation). Continuing to practice social distancing once returning back to work, released from quarantine was recommended. Post-operative state 09/09/2018 019 Enterocolitis 08/31/2018 10/01/2018 Leaking PEG tube 07/31/2018 10/01/2018 Overview (07/31/2018): Added automatically from request for surgery [id number] Nausea 02/22/2017 01/23/2018 Assessment & Plan (08/13/2017 4:33 PM CDT): Adjusted fentyl And came off and nausea beter to gone. Pain back and went back on. Assessment & Plan (02/22/2017 3:11 PM BACK LINE COOK): Patient complains of nausea. This may be multifactorial and due to his current antibiotic use and or upper respiratory secretions. Patient seems to think his nausea is due to swallowing secretions. He was hoping for something to help dry up the secretions. I encouraged the patient to keep his mucous membranes moist. This should help break up secretions. He was encouraged to sip lukewarm water, broth, or Tea. He may run a humidifier in the room he spends most of his time in. This should help. I have encouraged him to avoid antihistamines to try this up as this may increase the dryness and burning sensation to his throat. He is in agreement. He was given a small course of Zofran for p.r.n. use for his nausea. He was encouraged to use this sparingly. BMI 20.0-20.9, adult 01/04/2017 018 Acute bronchitis due to othe r specified organisms 01/04/2017 02/22/2017 Overview (01/04/2017): Based upon negative x-ray results likely cause of intermittent fevers and pleuritic pain was acute bronchitis. Advised to continue on high-dose Augmentin as previously advised. Certainly if any fevers present over the weekend including anything over 100.4 or worsening in cough or pleural state follow-up any ER for further diagnostics Assessment & Plan (02/15/2017 4:26 PM BACK LINE COOK): cxr neg. Better wit fenev until yesterday. Extend te amoxil 250 Qid for 10 days. Probiotics to protect gut. BMI 21.0-21.9, adult 01/02/2017 021 Assessment & Plan (10/07/2019 3:55 PM CDT): Up a few lbs. And work to get up Assessment & Plan (04/08/2019 2:00 PM BACK LINE COOK): Work to keep wt stable and not drop any Assessment & Plan (01/04/2017 2:02 PM BACK LINE COOK): Continue with PEG tube feedings as previously implemented advised by specialist Assessment & Plan (01/02/2017 3:48 PM BACK LINE COOK): Continue with PEG tube feedings as previously implemented in advised by specialist Fever, unknown origin 01/02/20172020 Assessment & Plan (02/26/2020 6:33 AM BACK LINE COOK): 9 months for tempt from 100 to 103.4 wth occasinoal days of no temp ct of chest with some abn findings. Seen by I.d. and wants admitted as felt sicker looking. 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 A dnnow felt cured. I.d. will see meghan singleton eval discussed sputum camples for chouric worsening cough and spuotum alongiwth sob will need to check and record temts to prove is recurrectly high temp and not take meds to supporess. ldiscussed onc causesa nd underlyign bone marrow didseases but with cough sputum post major neck sugery and rt would wander about recurrect as piratino. admitt ddelayed given no beds but just called and bed oen up to admit and see biwht I.d. then, reviewed ct report an dimages and appearance of tree in bud formatnio butrt as cause not fit the hxl check temp to confirm really has recufrrent temp for nwo lookschronicly ill.cancer possilb e not probablyl but bone maoor cancer more reaslintice. recurrenct aspiratino high non list when discussed with dr johnson. He felt the pateint was acutely ill on top of his chronic issues and after discussioin we asked forht patient to be sent to our ofice for eval and probble admit . [facility] and from er to admit to nursing sup real estate consultant to eventually have a bed found Assessment & Plan (01/30/2017 5:01 PM BACK LINE COOK): Fever gone Assessment & Plan (01/02/2017 3:50 PM BACK LINE COOK): Please refer to care plan under pneumonia Pneumonia due to infectious organism 01/02/2017 01/04/2017 Assessment & Plan (01/02/2017 3:49 PM BACK LINE COOK): Imaging suggestive right lower lobe pneumonia considering his risk factors with the PEG to an tracheostomy aspiration pneumonia is likely cause. Recommended high-dose Augmentin from to take twice daily along with iurb-vah-nitvguy probiotics to which he is going to try to use 1 tbsp to Frisian yogurt daily via PEG tube. We will touch base with them regarding results of imaging once received tomorrow and see them in office on Saturday, 2 days, for repeat x-ray indicated and certainly if symptoms worsen or fail to improve with antibiotics implement office today we will send him to ER and consider hospitalization for IV antibiotics. 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 Will try to clip again and maybe use fibrin. Discussed surgery also. Will try to avoid surgery.
--- OUTSIDE RECORDS SUMMARY | 2024-12-06 14:45 | XMS_ITS | Encounter Summary ---
Author Organization [facility] Healthcare Address [address] [place] [address] Care Team Providers Care Freezer Laboratory Technician Name Role Phone Robbin Willis MD PhD Unavailable + [phone] Noelle Rowland Unavailable Unavailab Jessica Ta RN Unavailable Un available Kimberlee Damon RN Unavailable Unavailab Malvin Gillis MD Unavailable [phone] Lloyd Sykes MD Unavailable [phone] Charlene Gomez DO Unavailable [phone] Larry Hinojosa MD Primary Care Provider + Larry Hinojosa MD Unavailable [phone] Miscellaneous, Not In File Unavailable Unava ilable Shakeel Thakkar MD Unavailable [phone] Encounter Details Date Type Department Care Team (Late st Contact Info) Description 10/14/2024 Results Follow-Up [facility] [place] [address] [place] [address] Raissa Wagner, SARAH [address] [facility] [address] [place] [address] XR Wrist Left 3 or More Views Social History Tobacco Use Types Packs/Day Years Used Date Smoking Tobacco: Never Passive Smoke Exposure: Never Smokeless Tobacco: Never Alcohol Use Standard Drinks/Week Comments No 0 (1 standard drink = 0.6 oz [...] materials from doctor or pharmacy Never 05/13/2024 [facility] Utilities Answer Date Recorded In the past 12 months has e [employer], gas, oil, or water company threatened to [...] often do you attend chur ch or oriental orthodox services? Never 03/02/2024 Do you belong to any clubs o r organizations such as episcopal groups, unions, fraternal or athletic groups, or school groups? No 03/02/2024 How often do you attend meet ings of the clubs or organizations you belong to? Never 03/02/2024 Are you , , di vorced, , never , or living with a partner? 03/02/2024 AUDIT-C Answer Date Recorded Q1: How often do you have a drink containing alcohol? Never 08/20/2022 Q2: How many drinks containi ng alcohol do you have on a typical day when you are drinking? Patient does not drink Q3: How often do you have si x or more drinks on one occasion? Never 08/20/2022 Overall Financial Resource Strain (CARDIA) Answe r [...] any time in the past 12 m [facility], were you homeless or living in a usp (including now)? No 03/02/2024 Personal Safety Answer Date Recorded Have you ever been in or are you currently in a harmful physical or emotional relationship or is someone making you feel afraid or unsafe? 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 Author OSVALDO-Pain Behavioral Health Improving(07/2019 1:15 PM [employer] SUPER[employer]) No Rosenda Garrett, RN Note: Patient would like to be able to eat and drink without pain. documented as of this encounter Visit Diagnoses Not on filedocumented in this encounter Care Teams Freezer Laboratory Technician Relationship Specialty Start Date End Date Larry Hinojosa MD [address] [facility] [place] [address] PCP - General Internal Medicine 05/31/22 Robbin Willis MD PhD [address] [place] [address] [place] [address] Consulting Physician Radiation Oncology 01/24/17 Noelle Rowalnd, K9 HANDLER Speech Language Pathologist Speech Therapy 01/31/17 Jessica Knight, RN Registered Nurse 06/14/17 Kimberlee Damon, [place] Registered Nurse Pain Management 06/28/17 Malvin Lopez MD Consulting Physician Urology 08/17/20 Lloyd Sykes MD Consulting Physician Gastroenterology 08/21/20 Charlene Gomez DO [address] [place] [address] [address] [place] [address] Consulting Physician Otolaryngology 05/31/22 Larry Hinojosa MD [address] [facility] 1 [place] [address] Referring Physician Internal Medicine 08/20/22 Miscellaneous, Not In File 01/31/24 Shakeel Thakkar MD [address] [facility] [address] [place] [address] Consulting Physician Pulmonary Disease 01/31/24 documented as of this encounter
--- OUTSIDE RECORDS SUMMARY | 2024-12-06 14:46 | XMS_ITS | Encounter Summary ---
Author Organization [facility] Healthcare Address [address] [place] [address] Care Team Providers Care Engineering Mgr Name Role Phone Robbin Willis MD PhD Unavailable + [phone] Noelle Rowland Unavailable Unavailab Jessica Ta RN Unavailable Un available Kimberlee Damon RN Unavailable Unavailab Malvin Gillis MD Unavailable [phone] Lloyd Sykes MD Unavailable [phone] Charlene Gomez DO Unavailable [phone] Larry Hinojosa MD Primary Care Provider + Larry Hinojoas MD Unavailable [phone] Miscellaneous, Not In File Unavailable Unava ilable Shakeel Thakkar MD Unavailable [phone] Encounter Details Date Type Department Care Team (Late st Contact Info) Description 11/12/2024 Telephone [facility] [address] [facility] [address] [place] [address] Shakeel Thakkar MD [address] [facility] [place] [address] Social History Tobacco Use Types Packs/Day Years [...] materials from doctor or pharmacy Never 05/13/2024 [facility] Utilities Answer Date Recorded In the past 12 months has e [employer], gas, oil, or water [employer] threatened to shut off services in your [...] often do you attend chur ch or yazidi services? Never 03/02/2024 Do you belong to any clubs o r organizations such as roman catholic groups, unions, fraternal or athletic groups, or [...] any time in the past 12 m [facility], were you homeless or living in a skilled nursing (including now)? No 03/02/2024 Personal Safety Answer Date Recorded Have you ever been in or are you currently in a harmful physical or emotional relationship or is someone making you feel afraid or unsafe? 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 documented in this encounter Plan of Treatment Not on file documented as of this encounter Goals Goal Patient Goal Type Associated Problems Recent Progress Patient-Stated? Author OSVALDO-Pain Behavioral Health Improving(07/2019 1:15 PM PLATE GRAINER) No Rosenda Garrett, RN Note: Patient would like to be able to eat and drink without pain. documented as of this encounter Visit Diagnoses Not on filedocumented in this encounter Care Teams Engineering Mgr Relationship Specialty Start Date End Date Larry Hinojosa MD [address] [place] [address] PCP - General Internal Medicine 05/31/22 Robbin Willis MD PhD [address] [place] [address] [place] [address] Consulting Physician Radiation Oncology 01/24/17 Noelle Rowland, PRINT BUYER Speech Language Pathologist Speech Therapy 01/31/17 Jessica Knight, RN Registered Nurse 06/14/17 Kimberlee Damon, [place] Registered Nurse Pain Management 06/28/17 Malvin Lopez MD Consulting Physician Urology 08/17/20 Lloyd Sykes MD Consulting Physician Gastroenterology 08/21/20 Charlene Gomez DO [address] [place] [address] [address] [place] [address] Consulting Physician Otolaryngology 05/31/22 Larry Hinojosa MD [address] [facility] 1 [place] [address] Referring Physician Internal Medicine 08/20/22 Miscellaneous, Not In File 01/31/24 Shakeel Thakkar MD [address] [facility] [address] [place] [address] Consulting Physician Pulmonary Disease 01/31/24 documented as of this encounter
--- OUTSIDE RECORDS SUMMARY | 2024-12-06 14:46 | XMS_ITS | Encounter Summary ---
Author Organization [facility] Address [address] [place] [address] Phone Care Team Providers Care Wireless Manager Name Role Phone Isidro Redd MD Primary Care Provi mike Robbin Willis MD PhD Unavailable [phone] Noelle Rowland Unavailable Unavailab Jessica Ta RN Unavailable Un available Kimberlee Damon RN Unavailable Unavailab Lesly Trinidad RN Unavailable [phone] Ana Rosa Lundy RN Unavailable [phone] Malvin Lopez MD Unavailable [phone] Lloyd Sykes MD Unavailable [phone] HardyJenni garcia RN Unavailable [phone] Angelita Oshea LPN Unavailable [phone] Brian Marvin Primary Care Provider Isidro Redd MD Primary Care Provi mike Isidro Redd MD Primary Care Provi mike Brian Marvin Primary Care Provider Charlene Gomez DO Unavailable [phone] Larry Hinojosa MD Primary Care Provider + Larry Hinojosa MD Unavailable [phone] Miscellaneous, Not In File Unavailable Unava ilable Shakeel Thakkar MD Unavailable [phone] Encounter Details Date Type Department Care Team (Late st Contact Info) Description 02/22/2017 Orders Only [facility] Provider, MD [address] [place] [address] Social History Tobacco Use Types Packs/Day Years Used Date Smoking Tobacco: Never Smokeless Tobacco: Never Alcohol Use Standard Drinks/Week Comments No 0 (1 standard drink = 0.6 oz pur e alcohol) Sex and Gender Information Value Date Recorded Sex Assigned at Not on file Legal Sex Male 11: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 Historical Provider LAB BLOOD ORDERABLES Toyin l Result documented in this encounter Visit Diagnoses Not on filedocumented in this encounter Additional Health Concerns Infection Onset Date Last Indicated Resolved Time COVID: Suspected 11/06/2019 11/18/2019 11/19/2019 11:38 AM CDT Respiratory Infection (HECTOR), contact + droplet Comment:Automatically added due to negative COVID-19 result. 11/19/2019 11/19/2019 12/03/2019 3:0 6 AM CDT COVID: Suspected 08/15/2020 08/15/2020 08/15/2020 6:21 PM CDT Exposure, COVID-19 Comment:Added automatically based on COVID19 lab answers indicating exposure risk 03/21/2021 03/21/2021 03/21/2021 5:[address] COVID: Suspected 03/21/2021 03/21/2021 03/21/2021 5:03 AM ELECTRICAL SIGN SERVICER COVID19 03/21/2021 03/21/2021 03/31/2021 3:06 AM ELECTRICAL SIGN SERVICER COVID: Recovered Comment:Added based on recent COVID infection. 03/31/2021 04/04/2021 07/29/2021 3:05 AM C DT COVID: Suspected 07/10/2022 07/10/2022 07/10/2022 8:02 PM CDT COVID: Suspected 01/22/2024 01/22/2024 01/22/2024 2:49 AM ELECTRICAL SIGN SERVICER COVID: Suspected 02/09/2024 02/09/2024 02/09/2024 10:24 AM ELECTRICAL SIGN SERVICER COVID19 02/09/2024 02/09/2024 02/28/2024 3:08 AM ELECTRICAL SIGN SERVICER COVID: Recovered Comment:Added based on recent COVID infection. 02/28/2024 02/29/2024 05/28/2024 3:05 AM C DT COVID: Suspected 02/29/2024 02/29/2024 02/29/2024 5:47 PM ELECTRICAL SIGN SERVICER COVID19 02/29/2024 02/29/2024 03/02/2024 12:0 5 PM ELECTRICAL SIGN SERVICER documented as of this encounter Care Teams Wireless Manager Relationship Specialty Start Date End Date Isidro Redd MD PCP - General 05/18/16 10/03/21 Brian Marvin PA [address] [place] [address] [place] [address] PCP - General Internal Medicine 10/19/21 11/02/21 Isidro Redd MD [address] [place] [address] [place] [address] PCP - General 10/04/21 10/18/21 Isidro Redd MD [address] [place] [address] [address] [place] [address] PCP - General 11/03/21 11/06/21 Brian Marvin PA [address] [place] [address] [address] [place] [address] PCP - General Internal Medicine 11/07/21 05/30/22 Larry Hinojosa MD [address] [facility] [address] PCP - General Internal Medicine 05/31/22 Robbin Willis MD PhD [address] [place] [address] [place] [address] Consulting Physician Radiation Oncology 01/24/17 Noelle Rowland, CUSTOMER SUCCESS ADVOCATE Speech Language Pathologist Speech Therapy 01/31/17 Jessica Knight, [place] Registered Nurse 06/14/17 Kimberlee Damon, [place] Registered Nurse Pain Management 06/28/17 Lesly Torres, [place] Pantograph Machine Set Up Operator 09/08/18 10/07/18 Ana Rosa Lundy, RN [address] [place] [address] [address] [place] [address] Pantograph Machine Set Up Operator 03/02/20 03/30/20 Malvin Lopez MD [address] [place] [address] [address] [place] [address] Consulting Physician Urology 08/17/20 Lloyd Sykes MD [address] [place] [address] [address] [place] [address] Consulting Physician Gastroenterology 08/21/20 Jenni Hardy, RN [address] [facility] [address] [place] [address] Pantograph Machine Set Up Operator 08/22/20 10/02/20 Angelita Oshea LPN [address] [facility] [address] [place] [address] ACO Care Optical Engineer 03/25/21 04/03/21 Charlene Gomez DO [address] [facility] [address]et [facility] [address] [place] [address] Consulting Physician Otolaryngology 05/31/22 Larry Hinojosa MD [address] [facility] 1 [place] [address] Referring Physician Internal Medicine 08/20/22 Miscellaneous, Not In File 01/31/24 Shakeel Thakkar MD [address] [facility] [address] [place] [address] Consulting Physician Pulmonary Disease 01/31/24 documented as of this encounter
--- OUTSIDE RECORDS SUMMARY | 2024-12-06 14:46 | XMS_ITS | Encounter Summary ---
Author Organization [facility] Healthcare Address [address] [place] [address] Care Team Providers Care General Manager Name Role Phone Robbin Willis MD PhD Unavailable + [phone] Noelle Rowland Unavailable Unavailab Jessica Ta RN Unavailable Un available Kimberlee Damon RN Unavailable Unavailab Malvin Gillis MD Unavailable [phone] Lloyd Sykes MD Unavailable [phone] Charlene Gomez DO Unavailable [phone] Larry Hinojosa MD Primary Care Provider + Larry Hinojosa MD Unavailable [phone] Miscellaneous, Not In File Unavailable Unava ilable Shakeel Thakkar MD Unavailable [phone] Encounter Details Date Type Department Care Team (Late st Contact Info) Description 11/13/2024 Telephone [facility] Gastroenterology at [facility] [address] [facility] [address] [place] [address] Kash Ornelas MD [address] [facility] [place], [place] [address] Social History Tobacco Use Types [...] materials from doctor or pharmacy Never 05/13/2024 [facility] Utilities Answer Date Recorded In the [...] often do you attend chur ch or jehovah's witness services? Never 03/02/2024 Do you belong to any clubs o r organizations such as islam groups, unions, fraternal or athletic groups, or [...] any time in the past 12 m [facility], were you homeless or living in [...] on file Legal Sex Male 11:52 PM PUBLIC HEALTH DOCTOR Gender Identity Not on file Sexual Orientation Not on file documented as of this encounter Plan of Treatment Not on file documented as of this encounter Goals Goal Patient Goal Type Associated Problems Recent Progress Patient-Stated? Author -Pain Behavioral Health Improving(07/2019 1:15 PM PUBLIC HEALTH DOCTOR) No Rosenda Garrett, [place] Note: Patient would like to be able to eat and drink without pain. documented as of this encounter Visit Diagnoses Not on filedocumented in this encounter Care Teams General Manager Relationship Specialty Start Date End Date Larry Hinojosa MD [address] [facility] [place] [address] PCP - General Internal Medicine 05/31/22 Robbin Willis MD PhD [address] [place] [address] Consulting Physician Radiation Oncology 01/24/17 Noelle Rowland, OBSTETRICS AND GYNECOLOGY PROFESSOR Speech Language Pathologist Speech Therapy 01/31/17 Jessica Knight, RN Registered Nurse 06/14/17 Kimberlee Damon, [place] Registered Nurse Pain Management 06/28/17 Malvin Lopez MD Consulting Physician Urology 08/17/20 Lloyd Sykes MD Consulting Physician Gastroenterology 08/21/20 Charlene Gomez DO [address] [facility] [address] [address] Consulting Physician Otolaryngology 05/31/22 Larry Hinojosa MD [address] [facility] 1 [place] [address] Referring Physician Internal Medicine 08/20/22 Miscellaneous, Not In File 01/31/24 Shakeel Thakkar MD [address] [facility] [address] [place] [address] Consulting Physician Pulmonary Disease 01/31/24 documented as of this encounter
--- OUTSIDE RECORDS SUMMARY | 2024-12-06 14:46 | XMS_ITS | Encounter Summary ---
Author Organization [facility] Address [address] [place] [address] Care Team Providers Care Morning News Producer Name Role Phone Isidro Redd MD Primary Care Provi mike Robbin Willis MD PhD Unavailable [phone] Noelle Rowland Unavailable Unavailab Jessica Ta RN Unavailable Un available Kimberlee Damon RN Unavailable Unavailab Ana Rosa Borja RN Unavailable [phone] Malvin Lopez MD Unavailable [phone] Lloyd Sykes MD Unavailable [phone] Jneni Hardy RN Unavailable [phone] Angelita Oshea LPN Unavailable [phone] Brian Marvin Primary Care Provider Isidro Redd MD Primary Care Provi mike Isidro Redd MD Primary Care Provi mike Brian Marvin Primary Care Provider Charlene Gomez DO Unavailable [phone] Larry Hinojosa MD Primary Care Provider + Larry Hinojosa MD Unavailable Miscellaneous, Not In File Unavailable Unava ilable Shakeel Thakkar MD Unavailable [phone] Encounter Details Date Type Department Care Team (Late st Contact Info) Description 09/14/2019 Telephone [facility] [address] [place] [address] Jacob Preciado, RT Social History Tobacco Use Types Packs/Day Years Used Date Smoking Tobacco: Never Smokeless Tobacco: Never Alcohol Use Standard Drinks/Week Comments No 0 (1 standard drink = 0.6 oz pur e alcohol) PHQ-2 Answer Date Recorded PHQ-2 Score 0 10/08/2018 Sex and Gender Information Value Date Recorded Sex Assigned at Not on file Legal Sex Male 11:52 PM YARN TEXTURE MACHINE OPERATOR Gender Identity Not on file Sexual Orientation Not on file documented as of this encounter Plan of Treatment Not on file documented as of this encounter Goals Goal Patient Goal Type Associated Problems Recent Progress Patient-Stated? Author BH-Pain Behavioral Health Improving(07/2019 1:15 PM YARN TEXTURE MACHINE OPERATOR) No Rosenda Garrett, RN Note: Patient would [...] COVID: Suspected 03/21/2021 03/21/2021 03/21/2021 5:03 AM YARN TEXTURE MACHINE OPERATOR COVID19 03/21/2021 03/21/2021 03/31/2021 3:06 AM YARN TEXTURE MACHINE OPERATOR COVID: Recovered Comment:Added based on recent COVID infection. 03/31/2021 04/04/2021 07/29/2021 3:05 AM C DT COVID: Suspected 07/10/2022 07/10/2022 07/10/2022 8:02 PM CDT COVID: Suspected 01/22/2024 01/22/2024 01/22/2024 2:49 AM YARN TEXTURE MACHINE OPERATOR COVID: Suspected 02/09/2024 02/09/2024 02/09/2024 10:24 AM YARN TEXTURE MACHINE OPERATOR COVID19 02/09/2024 02/09/2024 02/28/2024 3:08 AM YARN TEXTURE MACHINE OPERATOR COVID: Recovered Comment:Added based on recent COVID infection. 02/28/2024 02/29/2024 05/28/2024 3:05 AM C DT COVID: Suspected 02/29/2024 02/29/2024 02/29/2024 5:47 PM YARN TEXTURE MACHINE OPERATOR COVID19 02/29/2024 02/29/2024 03/02/2024 12:0 5 PM YARN TEXTURE MACHINE OPERATOR documented as of this encounter Care Teams Morning News Producer Relationship Specialty Start Date End Date Isidro Redd MD PCP - General 05/18/16 10/03/21 Brian Marvin PA [address] [place] [address] [place] [address] PCP - General Internal Medicine 10/19/21 11/02/21 Isidro Redd MD [address] [place] [address] [place] [address] PCP - General 10/04/21 10/18/21 Isidro Redd MD [address] [place] [address] [place] [address] PCP - General 11/03/21 11/06/21 Brian Marvin PA [address] [facility] [place] [address] [place] [address] PCP - General Internal Medicine 11/07/21 05/30/22 Larry Hinojosa MD [address] [facility] [place] [address] PCP - General Internal Medicine 05/31/22 Robbin Willis MD PhD [address] [place] [address] Consulting Physician Radiation Oncology 01/24/17 Noelle Rowland, ARMY RANGER Speech Language Pathologist Speech Therapy 01/31/17 Jessica Knight, RN Registered Nurse 06/14/17 Kimberlee Damon, RN Registered Nurse Pain Management 06/28/17 Ana Rosa Lundy, RN [address] [place] [address] [address] [place] [address] Paint Process Engineer 03/02/20 03/30/20 Malvin Lopez MD [address] [place] [address] [address] [place] [address] Consulting Physician Urology 08/17/20 Lloyd Sykes MD [address] [place] [address] [address] [place] [address] Consulting Physician Gastroenterology 08/21/20 Jenni Hardy, CAROLA [address] [place] [address] [address] [place] [address] Paint Process Engineer 08/22/20 10/02/20 Angelita Oshea LPN [address] [place] [address] [address] [place] [address] ACO Care Dexigraph Operator 03/25/21 04/03/21 Charlene Gomez DO [address] [facility] [address] Monet [facility] [address] [place] [address] Consulting Physician Otolaryngology 05/31/22 Larry Hinojosa MD [address] [facility] 1 [place] [address] Referring Physician Internal Medicine 08/20/22 Miscellaneous, Not In File 01/31/24 Shakeel Thakkar MD [address] [facility] [address] [place] [address] Consulting Physician Pulmonary Disease 01/31/24 documented as of this encounter
--- OUTSIDE RECORDS SUMMARY | 2024-12-06 14:46 | XMS_ITS | Clinical Summary ---
Author Organization [facility] Address [address] [place] [address] Care Team Providers Care Predatory Animal Trapper Name Role Phone Isidro Redd MD Primary Care Provi mike Source Comments [facility],non-owned Affiliates and Associated Physician Practices is amultiple site organization consisting of ambulatory clinics and hospital sitesin [place], [place], [place] and [place]. This disclosure is being madepursuant to the Care Everywhere program and may not contain all information available regarding this patient. Last updated 17.[facility] Encounters Date Type Department Care Team Description 12/01/2024 2:00 PM CDT Office Visit [facility] [address] [place] [id number] Lis Castelan, PEDIATRIC NURSE Oropharyngeal cancer (HCC) (Primary Dx); Oropharyngeal dysphagia 12/01/2024 Travel from Last 3 Months Social History Tobacco Use Types Packs/Day Years Used Date Smoking Tobacco: Never Assessed Sex and Gender Information Value Date Recorded Sex Assigned at Not on file Legal Sex Male 6:14 AM REPOSSESSION AGENT Gender Identity Not on file Sexual Orientation Not on file Plan of Treatment Health Maintenance Due Date Last Done Comments COLOGUARD (AGES 45-75) - COL ON CA SCREENING 1953 COLON MONITORING 1953 COLONOSCOPY - COLON CA SCREENING 1953 CT COLONOGRAPHY - COLON CA SCREENING 1953 Colorectal Cancer Screening 1953 FIT - COLON CA SCREENING 1953 FLEX SIG - COLON CA SCREENING 1953 MEDICARE AWV 12 MONTHS 1953 HEPATITIS C SCREENING 07/02/1971 DTAP/TDAP/TD VACCINES (1 - Tdap) 1972 PNEUMOCOCCAL VACCINE 50+ (1 of 1 - PCV) 07/07/2003 ZOSTER VACCINE (1 of 2) 07/07/2003 DEPRESSION SCREENING 02/19/2024 COVID-19 VACCINE (3 - 2024-2 6 season) 2024 06/04/2020, 04/29/2020 INFLUENZA VACCINE (#1) 2024 Respiratory Syncytial Virus (RSV) Vaccine Pt: or over 60 yrs (1 - 1-dose 75+ series) 2028 LIPID TESTING 10/20/2029 10/20/2024 HEPATITIS B VACCINE Aged Out No longe r eligible based on patient's age to complete this topic HIB VACCINE Aged Out No longer eligi ble based on patient's age to complete this topic HPV VACCINE Aged Out No longer eligi ble based on patient's age to complete this topic MENINGOCOCCAL (Group B) VACCINE SHARED DECISION-MAKING Aged Out No longer eligible based on patient's age to complete this topic MENINGOCOCCAL GROUPS A/C/Y/W VACCINE Aged Out No longer eligible b ased on patient's age to complete this topic Insurance MEDICARE [facility] MEDICARE Care Teams Predatory Animal Trapper Relationship Specialty Start Date End Date Isidro Redd MD PCP - General 07/20/20
--- OUTSIDE RECORDS SUMMARY | 2024-12-06 14:46 | XMS_ITS | Encounter Summary ---
Author Organization [facility] Address [address] [place] [address] Phone Care Team Providers Care Welcome Wagon Hostess Name Role Phone Isidro Redd MD Primary Care Provi mike Robbin Willis MD PhD Unavailable [phone] Noelle Rowland Unavailable Unavailab Jessica Ta RN Unavailable Un available Kimberlee Damon RN Unavailable Unavailab Lesly Trinidad RN Unavailable [phone] Ana Rosa Lundy RN Unavailable [phone] Malvin Lopez MD Unavailable [phone] Lloyd Sykes MD Unavailable [phone] HardyJenni garcia RN Unavailable [phone] Angelita Oshea LPN Unavailable [phone] Brian Marvin Primary Care Provider Isidro Redd MD Primary Care Provi mike Isidro eRdd MD Primary Care Provi mike Brian Marvin Primary Care Provider Charlene Gomez DO Unavailable [phone] Larry Hinojosa MD Primary Care Provider + Larry Hinojosa MD Unavailable [phone] Miscellaneous, Not In File Unavailable Unava ilable Shakeel Thakkar MD Unavailable [phone] Encounter Details Date Type Department Care Team (Late st Contact Info) Description 05/29/2017 Orders Only [facility] Provider, MD [address] [place] [address] Social History Tobacco Use Types Packs/Day Years Used Date Smoking Tobacco: Never Smokeless Tobacco: Never Alcohol Use Standard Drinks/Week Comments No 0 (1 standard drink = 0.6 oz pur e alcohol) Sex and Gender Information Value Date Recorded Sex Assigned at Not on file Legal Sex Male 11:52 PM CONTINUITY EDITOR Gender Identity Not on file Sexual Orientation Not on file documented as of this encounter Plan of Treatment Not on file documented as of this encounter Procedures Procedure Name Priority Date/Time Associated Diagnosis Comments GENERAL RADIOLOGY REPORT 05/29/2017 documented in this encounter Results * GENERAL RADIOLOGY REPORT (05/29/2017) Anatomical Region Laterality Modality Radiographic Socorro ging Narrative 05/29/2017 Ordered by an unspecified provider. Historical Provider MD GIANG XR PROCEDURES Final R esult documented in this encounter Visit Diagnoses Not [...] COVID: Suspected 03/21/2021 03/21/2021 03/21/2021 5:03 AM CONTINUITY EDITOR COVID19 03/21/2021 03/21/2021 03/31/2021 3:06 AM CONTINUITY EDITOR COVID: Recovered Comment:Added based on recent COVID infection. 03/31/2021 04/04/2021 07/29/2021 3:05 AM C DT COVID: Suspected 07/10/2022 07/10/2022 07/10/2022 8:02 PM CDT COVID: Suspected 01/22/2024 01/22/2024 01/22/2024 2:49 AM CONTINUITY EDITOR COVID: Suspected 02/09/2024 02/09/2024 02/09/2024 10:24 AM CONTINUITY EDITOR COVID19 02/09/2024 02/09/2024 02/28/2024 3:08 AM CONTINUITY EDITOR COVID: Recovered Comment:Added based on recent COVID infection. 02/28/2024 02/29/2024 05/28/2024 3:05 AM C DT COVID: Suspected 02/29/2024 02/29/2024 02/29/2024 5:47 PM CONTINUITY EDITOR COVID19 02/29/2024 02/29/2024 03/02/2024 12:0 5 PM CONTINUITY EDITOR documented as of this encounter Care Teams Welcome Wagon Hostess Relationship Specialty Start Date End Date Isidro Redd MD PCP - General 05/18/16 10/03/21 Brian Marvin PA [address] [place] [address] [place] [address] PCP - General Internal Medicine 10/19/21 11/02/21 Isidro Redd MD [address] [place] [address] [place] [address] PCP - General 10/04/21 10/18/21 Isidro Redd MD [address] [place] [address] [place] [address] PCP - General 11/03/21 11/06/21 Brian Marvin PA [address] [place] [address] [address] [facility] [place] [address] PCP - General Internal Medicine 11/07/21 05/30/22 Larry Hinojosa MD [address] [facility] [address] PCP - General Internal Medicine 05/31/22 Robbin Willis MD PhD [address] [place] [address] Consulting Physician Radiation Oncology 01/24/17 Noelle Rowland, MILK TESTER Speech Language Pathologist Speech Therapy 01/31/17 Jessica Knight, CAROLA Registered Nurse 06/14/17 Kimberlee Damon, RN Registered Nurse Pain Management 06/28/17 Lesly Torres, CAROLA Predictive Maintenance Specialist 09/08/18 10/07/18 Ana Rosa Lundy, CAROLA [address] [place] [address] [address] [place] [address] Predictive Maintenance Specialist 03/02/20 03/30/20 Malvin Lopez MD [address] [place] [address] [address] [place] [address] Consulting Physician Urology 08/17/20 Lloyd Sykes MD [address] [place] [address] [address] [place] [address] Consulting Physician Gastroenterology 08/21/20 Jenni Hardy, RN [address] [facility] [address] [place] [address] Predictive Maintenance Specialist 08/22/20 10/02/20 Angelita Oshea LPN [address] [facility] [address] [place] [address] ACO Care Burner Shaft 03/25/21 04/03/21 Charlene Gomez DO [address] [facility] [address] Monet [facility] [address] [place] [address] Consulting Physician Otolaryngology 05/31/22 Larry Hinojosa MD [address] [facility] 1 [place] [address] Referring Physician Internal Medicine 08/20/22 Miscellaneous, Not In File 01/31/24 Shakeel Thakkar MD [address] [facility] [address] [place] [address] Consulting Physician Pulmonary Disease 01/31/24 documented as of this encounter
--- OUTSIDE RECORDS SUMMARY | 2024-12-06 14:46 | XMS_ITS | Encounter Summary ---
Author Organization [facility] Address [address] [place] [address] Phone Care Team Providers Care Heel Seat Laster Name Role Phone Isidro Redd MD Primary Care Provi mike Robbin Willis MD PhD Unavailable [phone] Noelle Rowland Unavailable Unavailab Jessica Ta RN Unavailable Un available Kimberlee Damon RN Unavailable Unavailab Lesly Trinidad RN Unavailable [phone] Ana Rosa Lundy RN Unavailable [phone] Malvin Lopez MD Unavailable [phone] Lloyd Sykes MD Unavailable [phone] HardyJenni garcia RN Unavailable [phone] Angelita Oshea LPN Unavailable [phone] Brian Marvin Primary Care Provider Isidro Redd MD Primary Care Provi mike Isidro Redd MD Primary Care Provi mike Brian Marvin Primary Care Provider Charlene Gomez DO Unavailable [phone] Larry Hinojosa MD Primary Care Provider + Larry Hinojosa MD Unavailable [phone] Miscellaneous, Not In File Unavailable Unava ilable Shakeel Thakkar MD Unavailable [phone] Encounter Details Date Type Department Care Team (Late st Contact Info) Description 03/05/2017 Orders Only [facility] Provider, MD [address] [place] [address] Social History Tobacco Use Types Packs/Day Years Used Date Smoking Tobacco: Never Smokeless Tobacco: Never Alcohol Use Standard Drinks/Week Comments No 0 (1 standard drink = 0.6 oz pur e alcohol) Sex and Gender Information Value Date Recorded Sex Assigned at Not on file Legal Sex Male 11:52 PM DEVELOPMENT ENG Gender Identity Not on file Sexual Orientation Not on file documented as of this encounter Plan of Treatment Not on file documented as of this encounter Procedures Procedure Name Priority Date/Time Associated Diagnosis Comments GENERAL RADIOLOGY REPORT 03/05/2017 documented in this encounter Results * GENERAL RADIOLOGY REPORT (03/05/2017) Anatomical Region Laterality Modality Radiographic Socorro ging Narrative 03/05/2017 Ordered by an unspecified provider. Historical Provider [...] COVID: Suspected 03/21/2021 03/21/2021 03/21/2021 5:03 AM DEVELOPMENT ENG COVID19 03/21/2021 03/21/2021 03/31/2021 3:06 AM DEVELOPMENT ENG COVID: Recovered Comment:Added based on recent COVID infection. 03/31/2021 04/04/2021 07/29/2021 3:05 AM C DT COVID: Suspected 07/10/2022 07/10/2022 07/10/2022 8:02 PM CDT COVID: Suspected 01/22/2024 01/22/2024 01/22/2024 2:49 AM DEVELOPMENT ENG COVID: Suspected 02/09/2024 02/09/2024 02/09/2024 10:24 AM DEVELOPMENT ENG COVID19 02/09/2024 02/09/2024 02/28/2024 3:08 AM DEVELOPMENT ENG COVID: Recovered Comment:Added based on recent COVID infection. 02/28/2024 02/29/2024 05/28/2024 3:05 AM C DT COVID: Suspected 02/29/2024 02/29/2024 02/29/2024 5:47 PM DEVELOPMENT ENG COVID19 02/29/2024 02/29/2024 03/02/2024 12:0 5 PM DEVELOPMENT ENG documented as of this encounter Care Teams Heel Seat Laster Relationship Specialty Start Date End Date Isidro Redd MD PCP - General 05/18/16 10/03/21 Brian Marvin PA [address] [place] [address] [place] [address] PCP - General Internal Medicine 10/19/21 11/02/21 Isidro Redd MD [address] [place] [address] [place] [address] PCP - General 10/04/21 10/18/21 Isidro Redd MD [address] [place] [address] [place] [address] PCP - General 11/03/21 11/06/21 Brian Marvin PA [address] [place] [address] [address] [facility] [place] [address] PCP - General Internal Medicine 11/07/21 05/30/22 Larry Hinojosa MD [address] [facility] [place] [address] PCP - General Internal Medicine 05/31/22 Robbin Willis MD PhD [address] [place] [address] Consulting Physician Radiation Oncology 01/24/17 Noelle Rowland, LAN SPECIALIST Speech Language Pathologist Speech Therapy 01/31/17 Jessica Knight, CAROLA Registered Nurse 06/14/17 Kimberlee Damon, RN Registered Nurse Pain Management 06/28/17 Lesly Torres, CAROLA Radiography Technician 09/08/18 10/07/18 Ana Rosa Lundy, CAROLA [address] [place] [address] [address] [place] [address] Radiography Technician 03/02/20 03/30/20 Malvin Lopez MD [address] [place] [address] [address] [place] [address] Consulting Physician Urology 08/17/20 Lloyd Sykes MD [address] [place] [address] [address] [place] [address] Consulting Physician Gastroenterology 08/21/20 Jenni Hardy, RN [address] [facility] [address] [place] [address] Radiography Technician 08/22/20 10/02/20 Angelita Oshea LPN [address] [facility] [address] [place] [address] ACO Care Solid Plasterer 03/25/21 04/03/21 Charlene Gomez DO [address] [facility] [address] Monet [facility] [address] [place] [address] Consulting Physician Otolaryngology 05/31/22 Larry Hinojosa MD [address] [facility] [address] [place] [address] Referring Physician Internal Medicine 08/20/22 Miscellaneous, Not In File 01/31/24 Shakeel Thakkar MD [address] [facility] [place] [address] [place] [address] Consulting Physician Pulmonary Disease 01/31/24 documented as of this encounter
--- OUTSIDE RECORDS SUMMARY | 2024-12-06 14:46 | XMS_ITS | Patient Health Record ---
Author Organization [facility] Address [address] [facility] [address] [place] [address] Support Name Relationship Address Phone Mal Akhtar Guarantor Unknown [phone] Reason For Referral No Information Medications Medication SIG (Take, Route, Frequency, Duration) Notes Start Date End Date Status HYDROcodone-Acetaminophen 5-325 MG Oral Active Ondansetron 4 MG Oral Act allison Plan Of Treatment No Information Insurance Providers Payer Name Payer Address Payer Phone Subscriber Number Group Number Insured Name Patient Relationship to Insured Coverage Start Date Coverage End Date DO NOT USE AR [id number] Mal Akhtar Self - patient is the insured 8 DO NOT USE [id number] Mal Akhtar Self - patient is the insured [place] [address] [place] [address] [id number] PLAN G Mal Akhtar Self - patient is the insured 9 Medical (General) History Surgical History Surgery Date(Month/Year) node surgery; 2016-12-26
--- OUTSIDE RECORDS SUMMARY | 2024-12-06 14:46 | XMS_ITS | Encounter Summary ---
Author Organization [facility] Address [address] [place] [address] Phone Care Team Providers Care Charcoal Kiln Burner Name Role Phone Isidro Redd MD Primary Care Provi mike Robbin Willis MD PhD Unavailable [phone] Noelle Rowland Unavailable Unavailab Jessica Ta RN Unavailable Un available Kimberlee Damon RN Unavailable Unavailab Lesly Trinidad RN Unavailable [phone] Ana Rosa Lundy RN Unavailable [phone] Malvin Lopez MD Unavailable [phone] Lloyd Sykes MD Unavailable [phone] HardyJenni garcia RN Unavailable [phone] Angelita Oshea LPN Unavailable [phone] Brian Marvin Primary Care Provider Isidro Redd MD Primary Care Provi mike Isidro Redd MD Primary Care Provi mike Brian Marvin Primary Care Provider Charlene Gomez DO Unavailable [phone] Larry Hinojosa MD Primary Care Provider + Larry Hinojosa MD Unavailable [phone] Miscellaneous, Not In File Unavailable Unava ilable Shakeel Thakkar MD Unavailable [phone] Encounter Details Date Type Department Care Team (Late st Contact Info) Description 01/22/2017 Orders Only [facility] Provider, MD [address] [place] [address] Social History Tobacco Use Types Packs/Day Years Used Date Smoking Tobacco: Never Alcohol Use Standard Drinks/Week Comments No 0 (1 standard drink = 0.6 oz pur e alcohol) Sex and Gender Information Value Date Recorded Sex Assigned at Not on file Legal Sex Male 11:52 PM KNOTTING MACHINE OPERATOR Gender Identity Not on file Sexual Orientation Not on file documented as of this encounter Plan of Treatment Not on file documented as of this encounter Procedures Procedure Name Priority Date/Time Associated Diagnosis Comments GENERAL RADIOLOGY REPORT 01/22/2017 documented in this encounter Results * GENERAL RADIOLOGY REPORT (01/22/2017) Anatomical Region Laterality Modality Radiographic [place] ging Narrative 01/22/2017 Ordered by an unspecified provider. Historical Provider [...] COVID: Suspected 03/21/2021 03/21/2021 03/21/2021 5:03 AM KNOTTING MACHINE OPERATOR COVID19 03/21/2021 03/21/2021 03/31/2021 3:06 AM KNOTTING MACHINE OPERATOR COVID: Recovered Comment:Added based on recent COVID infection. 03/31/2021 04/04/2021 07/29/2021 3:05 AM C DT COVID: Suspected 07/10/2022 07/10/2022 07/10/2022 8:02 PM CDT COVID: Suspected 01/22/2024 01/22/2024 01/22/2024 2:49 AM KNOTTING MACHINE OPERATOR COVID: Suspected 02/09/2024 02/09/2024 02/09/2024 10:24 AM KNOTTING MACHINE OPERATOR COVID19 02/09/2024 02/09/2024 02/28/2024 3:08 AM KNOTTING MACHINE OPERATOR COVID: Recovered Comment:Added based on recent COVID infection. 02/28/2024 02/29/2024 05/28/2024 3:05 AM C DT COVID: Suspected 02/29/2024 02/29/2024 02/29/2024 5:47 PM KNOTTING MACHINE OPERATOR COVID19 02/29/2024 02/29/2024 03/02/2024 12:0 5 PM KNOTTING MACHINE OPERATOR documented as of this encounter Care Teams Charcoal Kiln Burner Relationship Specialty Start Date End Date Isidro Redd MD PCP - General 05/18/16 10/03/21 Brian Marvin PA [address] [place] [address] [place] [address] PCP - General Internal Medicine 10/19/21 11/02/21 Isidro Redd MD [address] [place] [address] [place] [address] PCP - General 10/04/21 10/18/21 Isidro Redd MD [address] [place] [address] [place] [address] PCP - General 11/03/21 11/06/21 Brian Marvin PA [address] [place] [address] [address] [place] [address] PCP - General Internal Medicine 11/07/21 05/30/22 Larry Hinojosa MD [address] [facility] [place] [address] PCP - General Internal Medicine 05/31/22 Robbin Willis MD PhD [address] [place], [place] [address] [place] [address] Consulting Physician Radiation Oncology 01/24/17 Noelle Rowland, PLASTIC TOP ASSEMBLER Speech Language Pathologist Speech Therapy 01/31/17 Jessica Knight, [place] Registered Nurse 06/14/17 Kimberlee Damon, [place] Registered Nurse Pain Management 06/28/17 Lesly Torres, [place] Stationary Steam Engineer 09/08/18 10/07/18 Ana Rosa Lundy, RN [address] [place] [address] [address] [place] [address] Stationary Steam Engineer 03/02/20 03/30/20 Malvin Lopez MD [address] [place] [address] [address] [place] [address] Consulting Physician Urology 08/17/20 Lloyd Sykes MD [address] [place] [address] [address] [place] [address] Consulting Physician Gastroenterology 08/21/20 Jenni Hardy, RN [address] [facility] [address] [place] [address] Stationary Steam Engineer 08/22/20 10/02/20 Angelita Oshea LPN [address] [facility] [address] [place] [address] ACO Care Potash Flaker 03/25/21 04/03/21 Charlene Gomez DO [address] [facility] [address] [facility] [address] [place] [address] Consulting Physician Otolaryngology 05/31/22 Larry Hinojosa MD [address] [facility] [address] [place] [address] Referring Physician Internal Medicine 08/20/22 Miscellaneous, Not In File 01/31/24 Shakeel Thakkar MD [address] [facility] [address] [place] [address] Consulting Physician Pulmonary Disease 01/31/24 documented as of this encounter
--- NOTE | 2024-12-06 15:32 | PC.NURSE ---
Azithromycin infusion delayed d/t IV kinking off. Infusion restarted.
--- NOTE | 2024-12-06 15:34 | PC.NURSE ---
RN provided update to at this time.
[2024-12-06 16:52] LABS: MRSA (PCR) NOT DETECTED (NOT DETECTE)
[2024-12-07 00:05] VITALS: PULSE 89
[2024-12-07] MEDS: PIPERACILLIN/TAZOBACTAM SOD 3.375 GM in SODIUM CHLORIDE 0.9% IV 50 ML 100 ML IVPB ×2 (01:20→08:09)
--- NOTE | 2024-12-07 02:14 | PC.NURSE ---
tube feeding tolerated well on 70ml/hr this nurse upped to goal of 75 and has been tolerating well also at this time.
[2024-12-07 04:00] VITALS: PULSE 98
[2024-12-07 05:37] LABS: Hematocrit 41.0 % (42.0-52.0); Hemoglobin 13.4 g/dL (14.0-18.0); Mean Corpuscular HGB Conc 32.7 g/dl (32-36); Mean Corpuscular Hemoglobin 32.5 pg (26-34); Mean Corpuscular Volume 99.5 fl (80-100); Platelet Count Result 126 k/mm3 (150-375); Red Blood Count 4.12 M/mm3 (4.6-6.20); White Blood Count 14.0 K/mm3 (4.5-10.0)
[2024-12-07] MEDS: SODIUM CHLORIDE 0.9% IV 1,000 ML 125 ML IV CONT (05:40)
[2024-12-07 05:57] LABS: Alanine Aminotransferase 15 U/L (6-50); Albumin Level 3.2 g/dL (3.5-5.1); Alkaline Phosphatase 60 U/L (38-126); Anion Gap 3 mmol/L (4-12); Aspartate Amino Transferase 24 U/L (17-59); Bilirubin,Total 0.4 mg/dL (0.2-1.3); Blood Urea Nitrogen 21 mg/dL (9-20); Calcium 8.0 mg/dL (8.4-10.2); Carbon Dioxide 27 mmol/L (22-30); Chloride 106 mmol/L (98-107); Estimated CRCL calculation 86 ml/min; Estimated Glomerular Filt Rate > 60; Glucose 140 mg/dL (65-110); Magnesium 2.0 mg/dL (1.6-2.3); Potassium 3.8 mmol/L (3.4-5.0); Sodium 136 mmol/L (137-145); Total Protein 5.8 g/dL (6.3-8.2)
[2024-12-07 06:00] VITALS: BP 152/92; PULSE 101; RESP 16; TEMP 37; O2SAT 95
[2024-12-07 06:49] LABS: Band Neutrophils Percent 13 % (0-6); Lymphocytes Absolute Manual 0.28 K/mm3 (1.1-4.5); Lymphocytes Percent Manual 2 % (18-44); Monocytes Absolute Manual 0.42 K/mm3 (0.1-0.90); Monocytes Percent Manual 3 % (3-9); Neutrophils Absolute Manual 13.30 K/mm3 (1.3-6.7); Neutrophils Percent Manual 82 % (46-73); Schistocytes None Seen; Total Cells Counted 100
[2024-12-07 08:00] VITALS: PULSE 100
[2024-12-07] MEDS: ENOXAPARIN 40 MG/0.4 ML SYRINGE SUB-Q (08:09)
[2024-12-07 12:00] VITALS: PULSE 94
[2024-12-07 12:59] VITALS: BMI 19.5
[2024-12-07] MEDS: levoFLOXacin 750 MG/D5W 150 ML 750 MG/150 ML BAG 100 MG IVPB (13:42)
[2024-12-07] MEDS: ONDANSETRON INJ 4 MG/2 ML VIAL IV PUSH (13:49)
[2024-12-07 14:00] VITALS: BP 135/81; PULSE 96; RESP 17; TEMP 36.8; O2SAT 94
--- NOTE | 2024-12-14 08:25 | P.DS_ITS ---
DS: Admitting Diagnosis Discharge Date 12/07/24 Admitting Diagnosis Fever and generalized weakness DS: Summary Hospital Course Hospital Course: 69-year-old male past medical history throat cancer status post resection with affectation of swallowing and voice, on GJ tube which was exchanged 2 days ago, presented to the ER last night due to Fever and generalized weakness whcih was sudden. Noted that coughed up brownish sputum. noted they had difficulty with kevin new Gj tube however they seem to have figured it out. Otherwise denies any chest pain, SOB, abd pain, diarrhea or dysuria. On room air at baseline ER eval notable for HR 105, RR 29, BP 135/78, O2 sats 95% on 2 liters Labs notable for 10.2, Lactic acid 1.4 CXR showed scattered bilateral foci airspace disease ?Acute vs chronic CT AP showed that GJ tube was in position and patient tolerated tube feeding without any problems. Discussed CT findings with Radiology and he confirmed that GJ tube is in the right position. Also manged for Pneumonia with acute hypoxemic respiratour failure and startd on Rceophin, Flagyl adn Azithromycin. Today patient now on room air and and alert and at baseline. Discharged on Levaquin and Augmentin x 7 more days. patient ecouraged to follow up with GI at [facility] for GJ tube F/u with PCP in 3-5 days Time Spent with Patient Time attestation: Total time spent providing and/or coordinating discharge services: Discharge Plan Discharge Attending physician on discharge: Abby Cerna Consulting providers: West Ortiz; Navdeep Sousa; Roger Tafoya; Milton Mortensen Discharging Clinician: Abby Cerna Anticipated Discharge Date/Time: 12/07/24 13:18 Patient Disposition: Home with Home Health Service Activity: as tolerated Diet: as tolerated and tube feeding Patient Instructions: Antibiotic Form, Aspiration Pneumonia (GEN) Patient Language: Khmer Stand Alone Forms: General Discharge Information Follow-up/Referrals: Larry Hinojosa [Other] Referral Note: F/u with PCP in 3-5 days Discharge Medications: New levofloxacin 750 mg tablet 750 mg PO DAILY 7 Days Qty: 7 0RF metronidazole 500 mg tablet 500 mg PO Q8H 7 Days Qty: 21 0RF Continued finasteride [Proscar] 5 mg tablet 5 mg feeding tube DAILY ondansetron HCl 4 mg tablet 4 mg feeding tube Q4H PRN (Reason: nausea and [id number]) diazepam [Valium] 10 mg Tablet 20 mg PO HS acetaminophen 325 mg Tablet 325 mg PO Q4H PRN (Reason: Pain (Scale Score 1-3)) zolpidem 5 mg tablet 5 mg feeding tube HS albuterol sulfate 2.5 mg /3 mL (0.083 %) solution for nebulization 2.5 mg inhalation Q4-6H PRN (Reason: shortness of breath or wheezing) zolpidem 10 mg Tablet 5 mg feeding tube HS PRN (Reason: Sleep) Rx Instructions: if 5mg scheduled dose not effective Date of admission: 12/06/24 14:43 Primary Care Provider: Larry Hinojosa Admitting Provider: Monica Johnston Attending physician on admission: Abby Cerna Condition: Stable
== END 2024-12-07 15:50 | disposition home health service (06) | DRG 177 ==
LOC: ANHED 02:03 → ANH3MEDSUR 12-07 13:19
PROVIDERS: Admitting Provider General Practice; Emergency Provider Family Medicine; Visit Provider Internal Medicine
DX: J69.0 Pneumonitis due to inhalation of food and vomit (principal); J96.01 Acute respiratory failure with hypoxia; K21.9 Gastro-esophageal reflux disease without esophagitis; E03.9 Hypothyroidism, unspecified; Z85.89 Personal history of malignant neoplasm of other organs and systems; Z93.1 Gastrostomy status
CPT/HCPCS: 36415; 71045; 71250; 74176; 80053; 81001; 82948; 83605; 83690; 83735; 84484; 85025; 85610; 85730; 86140; 87040; 87641; 93005; 96365; 96375; 99285; J0456; J1650; J1956; J2405; J2543; J3360; J7030; J7050

== ENCOUNTER 2025-01-21 00:57 | Inpatient (IN) | payer MEDICARE, OTHER, SELFPAY ==
[2025-01-21] VITALS (24 sets, daily range): BP systolic 100–157; BP diastolic 62–123; PULSE 75–101; RESP 14–31; TEMP 36.6–38.3; O2SAT 91–99; BMI 18.9
--- NOTE | ~2025-01-21 | CT_ITS ---
CT HEAD NON-CONTRAST CT C-SPINE Clinical History: fall Comparison: CT brain 08/13/2021 Technique: Unenhanced axial images skull base to vertex. Coronal, sagittal reformats. Axial images thoracic inlet to skull base. Sagittal and coronal reformats. CT images acquired with automatic exposure control for dose reduction DLP: 681 mGy-cm Findings: Head: Sulci, ventricles: Unremarkable. No intracerebral hemorrhage. No evidence acute territorial infarct. No mass effect, midline shift, intra-/extra-axial fluid collection. Bony calvarium intact. Visualized paranasal sinuses: Right maxillary retention cyst. Mastoid air cells: Clear. C-spine: No acute fracture or listhesis. Vertebral bodies normal height and alignment. Mild degenerative changes. Disc spaces maintained. Prevertebral soft tissues within normal limits. Visualized lung apices: Clear. Visualized thyroid: Unremarkable. No enlarged cervical nodes. IMPRESSION: HEAD: 1. No acute intracranial findings. C-SPINE: 1. No acute fracture. Reviewed, dictated and finalized at location R. TENANCE ANALYST IMPRESSION: HEAD: 1. No acute intracranial findings. C-SPINE: 1. No acute fracture.
--- NOTE | ~2025-01-21 | XR_ITS ---
Examination: XR chest 1V portable Clinical History: cough Comparison: 12/06/2024 Technique: Portable AP Findings: Heart size normal. Mildly worsening bibasilar foci airspace disease. Left basilar calcified plaque. No acute bony abnormality. IMPRESSION: 1. Mild worsening of acute on bibasilar chronic airspace disease. Reviewed, dictated and finalized at location R. OIDERY CUTTER
--- NOTE | ~2025-01-21 | CT_ITS ---
EXAMINATION: CTA chest PE abdomen pel DATE: 01/21/2025 02:22 INDICATION: Fever, cough, sepsis. TECHNIQUE: Computed tomography angiography (CTA) of the chest was performed with 100 mL Omnipaque-350 intravenous contrast timed to evaluate the pulmonary arteries. Coronal maximum intensity projection 3D-reconstructions were created by the technologist. Computed tomography (CT) of the abdomen and pelvis was performed with intravenous contrast. Automated exposure control and iterative reconstruction technique were employed. The dose-length product was 732.47 mGy-cm. COMPARISON: CT 12/06/2024 FINDINGS: CTA chest: There is material in bronchus intermedius and the right middle lobe and right lower lobe bronchi and left lower lobe bronchi, consistent with mucous plugging versus aspiration. There are airspace opacities and nodules in right middle lobe and the lower lobes, consistent with pneumonia. There is mild scarring at the lung apices. No pleural effusion. The heart size is normal. There are calcifications of the aortic valve. There are coronary artery calcifications. No pericardial effusion. There is no pulmonary embolus. There is mild thoracic spondylosis. There is a chronic compression fracture of T6. CT abdomen and pelvis: The liver and gallbladder are normal. There is a 10 mm hypodense mass in the spleen, likely benign. There is a percutaneous gastrojejunostomy tube in expected position. The pancreas and adrenal glands are normal. There is a 2 mm stone in right kidney. There is a 6 mm stone in left kidney. There is focal volume loss of left kidney. The prostate is mildly enlarged. There is diverticulosis of the colon without evidence of diverticulitis. There are no dilated loops of bowel. The appendix is not visualized. There are no pathologically enlarged lymph nodes. There is no free intraperitoneal fluid. There is mild lumbar spondylosis. IMPRESSION: 1. Pneumonia involving the right middle lobe and lower lobes. 2. Material in bronchi bilaterally, consistent with aspiration versus mucous plugging. 3. No pulmonary embolus. Reviewed, dictated and finalized at location E. ION FUND MANAGER IMPRESSION: 1. Pneumonia involving the right middle lobe and lower lobes. 2. Material in bronchi bilaterally, consistent with aspiration versus mucous pl ugging. 3. No pulmonary embolus.
--- NOTE | 2025-01-21 01:11 | ED_ITS ---
HPI - Fever General Chief Complaint: Fever Stated Complaint: FEVER, INCREASING WEAKNESS Time Seen by Provider: 01/21/25 00:59 Source: patient and EMS Mode of arrival: EMS Limitations: other (History of throat cancer status post resection affecting swallowing and voice.) History of Present Illness HPI Narrative: Patient is a 69-year-old male presents to the emergency department by EMS in which they were called out for a fall and a lift assist and patient was found to have a fever. No medications administered. Patient admits to being on antibiotics not long ago. Patient admits to a cough and chest congestion. Patient denies any difficulty breathing. Patient admits to a sore on his sacrum. Patient admits to urinary frequency. Patient denies chest pain. Patient denies focal weakness or numbness. Patient admits to feeling generally more weak lately. Patient has a GJ tube. Patient denies wearing oxygen on a regular basis. Denies use of blood thinners. Denies hitting his head or having loss of consciousness. Patient notes that he fell onto his buttock. Related Data Home Medications ?Medication ?Instructions ?Recorded ?Confirmed ?Last Taken ?Type zolpidem 10 mg tablet 5 mg feeding tube HS PRN Sle ep 09/07/21 12/06/24 01/14/24 History finasteride 5 mg tablet (Proscar) 5 mg feeding tube DA KENDRA 03/05/22 12/06/24 01/14/24 History diazepam 10 mg tablet (Valium) 20 mg PO HS 05/19/2201/14/24 History ondansetron HCl 4 mg tablet 4 mg feeding tube Q4H PRN nausea 05/19/22 12/06/24 05/17/22 22:00 History and [id number] acetaminophen 325 mg tablet 325 mg PO Q4H PRN Pain (Sc pushpa 01/15/24 12/06/24 01/15/24 00:56 History Score 1-3) zolpidem 5 mg tablet 5 mg feeding tube HS 4 12/06/24 01/14/24 History albuterol sulfate 2.5 mg/3 mL 2.5 mg inhalation Q4-6H PRN 12/06/24 12/06/24 Unknown History (0.083 %) solution for nebulization shortness of breat h or wheezing Allergies Allergy/AdvReac Type Severity Reaction Status Date / Time No Known Allergies Allergy Verified 12/06/24 17:05 Review of Systems 2 Review of Systems: A 10 system review of systems was completed on the patient and is negative except for what is stated in the HPI. Nursing and ancillary documentation was reviewed. [facility] Past Medical History Medical History Primary squamous cell carcinoma of head and neck (~2013) Insomnia Radiation-induced brachial plexopathy Dysarthria Dysphonia Dysphagia History of aspiration pneumonia Constipation Malfunction of gastrostomy tube Gastrostomy tube dependent Spina bifida as a child with surgery; residual 'bladder issues' Cervical spine disease History of throat cancer XRT and surgery GERD (gastroesophageal reflux disease) Hypothyroid Surgical History Surgical History History of throat surgery PEG (percutaneous endoscopic gastrostomy) status History of ear, nose, and throat (ENT) surgery Family History Family History Mother Colon cancer Social History Social History Social History: Lives at home with . Never smoked. No alcohol and drug use. Code status: Full code. Surrogate decision maker: Smoking status: Never smoker Second hand tobacco smoke exposure: No Alcohol intake: never Substance use: never Substance use type: does not use Lack of Transportation: No Lack of Food: Never True Current Housing: I Have Housing Concerned About Future Housing: No Difficulty Paying Gas/Electric Bills: No Difficulty Paying for Meds: No Currently Unemployed: No Education: Bachelor's Degree Difficulty w/ Childcare or Family Care: No Living arrangements: with family Gender identity (if verbalized by the patient): Male Sexual Orientation (if Verbalized by the Patient): Straight or Heterosexual Spiritual care concerns: No Agree to blood products: Yes Exam 2 Narrative: CONST: No acute distress. HENMT: Head is normocephalic and atraumatic. Dry mucous membranes. No posterior oropharynx erythema. EYES: No scleral icterus. No conjunctival injection or pallor. PERRL. NECK: No meningeal signs. RESP: Able to speak in full sentences. Normal respiratory effort. Diffuse rhonchi. CARDIO: Regular rate. Regular rhythm. 2+ DP and radial pulses bilaterally. GI: Nondistended. No tenderness to palpation. Soft. Enteric tube in place, no surrounding erythema or discharge. : No CVA tenderness to palpation. SKIN: No rashes or lesions noted on exposed skin. Stage II sacral ulcer, no palpable fluctuance or crepitus. NEURO: Oriented x3. Moves all extremities. Motor strength is 1 to 2/5 in the bilateral lower extremities, symmetric. No drift to the bilateral upper extremities. Speech is muffled which patient notes is chronic. EXTREM/MSK/BACK: No pedal edema. No focal extremity tenderness to palpation or palpable deformities. PSYCH: Normal affect. Course Vital Signs Vital signs: Vital Signs Temperature 100.7 F H 01/21/25 00:57 Pulse Rate 96 01/21/25 00:57 Respiratory Rate 14 01/21/25 00:57 Blood Pressure 157/123 H 01/21/25 00:57 Pulse Oximetry 96 01/21/25 00:57 Oxygen Delivery Room Air 01/21/25 00:57 Temperature 101 F H 01/21/25 03:31 Pulse Rate 101 H 01/21/25 03:13 Respiratory Rate 20 01/21/25 03:13 Blood Pressure 146/89 H 01/21/25 03:13 Pulse Oximetry 99 01/21/25 03:13 Oxygen Delivery Room Air 01/21/25 00:57 [facility] Narrative Medical decision making narrative: Patient presents with the above complaint. Initial vitals are remarkable for initial temperature being oral was afebrile, rectal temperature obtained and elevated at 100.7? F. Physical examination as noted above. Plan discussed: Laboratory analysis, EKG, chest x-ray, CT head and cervical spine chest abdomen pelvis, continues cardiac monitoring, continuous pulse oximetry, 30 cc/kg IV fluid bolus, empiric antibiotics for suspected pneumonia, Tylenol for fever. CT of the head preliminary report reveals unremarkable noncontrast CT scan of the brain, there is mild paranasal sinus disease. CT of the cervical spine without contrast preliminary report reveals no acute fracture, hypertrophic degenerative changes. CTA of the chest preliminary report reveals artifact degrades image quality limiting the exam, no definite central pulmonary embolism noted, no evidence of thoracic aortic aneurysm or dissection, there is consolidation noted in the right lower lobe. CT of the abdomen pelvis preliminary report reveals are to compact grades image quality limiting the exam, diverticulosis, the overall bowel gas pattern may represent ileus. There are small bilateral renal calcifications without evidence of hydronephrosis. A percutaneous gastrostomy tube is noted with its tip in the proximal small bowel. Prostate gland is enlarged containing calcifications. Urinary bladder is distended. No bladder calculi are seen. On reassessment patient is resting comfortably appearing in no acute distress, vital signs stable, appears much improved, formal patient and of results and plan of care. Plan of care agreed with my patient and . I spoke with the hospitalist on-call who has accepted the patient for admission. Patient had Pseudomonas isolated from the respiratory tract about 1 year ago that was resistant to Zosyn, sensitive to the levofloxacin, antibiotics changed to levofloxacin. Differential Diagnosis Differential Diagnosis: Pneumonia, fracture, contusion, sprain, strain, intracranial hemorrhage, UTI, sepsis, metabolic derangement, electrolyte derangement, dehydration, ACS, endocrine dysfunction, pulmonary embolism, URI, pleural effusion, reactive airway disease. Medical Records I have reviewed the following patient records and this information was taken into consideration when formulating the assessment and plan.: previous ER visits and previous hospitalizations Lab Data MDM Lab Attestation statement: I personally reviewed the patient's lab results. Lab results narrative: CBC reveals a white blood cell count 10.2, hemoglobin of 12.8, absolute immature granulocyte count of 0.04. ESR is 59. Coags are within normal limits. VBG reveals a pH of 7.409, pCO2 of 48.9, bicarb 30.2. Comprehensive metabolic panel reveals a BUN of 35. Lactic acid is 0.8. Magnesium is 2.3. Total creatine kinase is 40. Troponin is less than 0.012. CRP is 16. BNP is 176. Lipase 36. Procalcitonin is 0.2. TSH is 7.26. Influenza and RSV and COVID swab is negative. Urinalysis reveals a specific gravity greater than 1.045, 1+ protein. 01/21/25 01:19 01/21/25 01:18 Labs: Lab Results 01/21/25 01/21/25 01/21/25 Range/Units 01:18 01:19 01:29 WBC 10.2 H (4.5-10.0) K/mm3 RBC 3.95 L (4.6-6.20) M/mm3 Hgb 12.8 L (14.0-18.0) g/dL Hct 39.5 L (42.0-52.0) % MCV 100.0 (80-100) fl MCH 32.4 (26-34) pg MCHC 32.4 (32-36) g/dl RDW 12.9 (11.5-14.5) % Plt Count 163 (150-375) k/mm3 MPV 13.0 H (7.4-10.4) fl Immature Gran % (Auto) 0.4 (0-0.5) % Neut % (Auto) 87.3 H (45.5-73.1) % Lymph % (Auto) 5.0 L (18.3-44.2) % [place] % (Auto) 6.5 (2.6-8.5) % Eos % (Auto) 0.5 (0-4.4) % Baso % (Auto) 0.3 (0.2-1.2) % Lymph # (Auto) 0.51 L (0.9-3.2) K/mm3 [place] # (Auto) 0.7 H (0.1-0.6) K/mm3 Eos # (Auto) 0.1 (0-0.3) K/mm3 Baso # (Auto) 0.0 (0.0-0.1) K/mm3 Abs Immat Gran (auto) 0.04 H (0.00-0.031) K/mm3 Absolute Neuts (auto) 8.9 H (1.3-6.7) K/mm3 Absolute Nucleated RBC 0.000 (0.0-0.012) K/mm3 Nucleated RBC % 0.0 (0.0-0.2) % ESR 59 H (0-20) mm/hr PT 13.5 (11.1-14.7) Seconds INR 1.0 APTT 35.7 (22.3-36.8) Seconds Sodium 138 (137-145) mmol/L Potassium 4.5 (3.4-5.0) mmol/L Chloride 102 (98-107) mmol/L Carbon Dioxide 30 (22-30) mmol/L Anion Gap 6 (4-12) mmol/L BUN 35 H D (9-20) mg/dL Creatinine 0.70 (0.7-1.3) mg/dL Estim Creat Clear Calc 80 ml/min Estimated GFR > 60 (59 - ) Glucose 104 (65-110) mg/dL Lactic Acid 0.8 (0.7-2.0) mmol/L Calcium 9.3 (8.4-10.2) mg/dL Magnesium 2.3 (1.6-2.3) mg/dL Total Bilirubin 0.5 (0.2-1.3) mg/dL AST 22 (17-59) U/L ALT 15 (6-50) U/L Alkaline Phosphatase 88 (38-126) U/L Total Creatine Kinase 40 L (55-170) U/L Troponin I < 0.012 (0.000-0.034) ng/mL C-Reactive Protein 16.0 H (<1.0) mg/dL NT-Pro-B Natriuret Pep 176 H (19.9-100) pg/mL Total Protein 7.7 (6.3-8.2) g/dL Albumin 4.2 (3.5-5.1) g/dL Lipase 36 (23-300) U/L Procalcitonin 0.2 ng/mL TSH (Reflex) 7.260 H (0.465-4.68) uIU/mL Free T4 Pending Urine Color (Yellow) Urine Appearance (Clear) Urine pH (5.0-9.0) Ur Specific [place] (1.001-1.035) Urine Protein (Negative) mg/dL Urine Glucose (UA) (Negative) mg/dL Urine Ketones (Negative) mg/dL Ur Blood (Man) (Negative) Urine Nitrate (Negative) Urine Bilirubin (Negative) Urine Urobilinogen (<2.0) mg/dL Leukocyte Esterase Rfl (Negative) JALEESA/UL Urine RBC (0-2) /hpf Urine WBC (0-3) /hpf Ur Squamous Epith Cells (Few) /hpf Urine Bacteria /hpf Urine Casts Influenza A (RT-PCR) Negative (Negative) Influenza B (RT-PCR) Negative (Negative) RSV (RT-PCR) Negative (Negative) SARS-CoV-2 RNA (RT-PCR) Negative (Negative) 01/21/25 Range/Units 02:57 WBC (4.5-10.0) K/mm3 RBC (4.6-6.20) M/mm3 Hgb (14.0-18.0) g/dL Hct (42.0-52.0) % MCV (80-100) fl MCH (26-34) pg MCHC (32-36) g/dl RDW (11.5-14.5) % Plt Count (150-375) k/mm3 MPV (7.4-10.4) fl Immature Gran % (Auto) (0-0.5) % Neut % (Auto) (45.5-73.1) % Lymph % (Auto) (18.3-44.2) % [place] % (Auto) (2.6-8.5) % Eos % (Auto) (0-4.4) % Baso % (Auto) (0.2-1.2) % Lymph # (Auto) (0.9-3.2) K/mm3 [place] # (Auto) (0.1-0.6) K/mm3 Eos # (Auto) (0-0.3) K/mm3 Baso # (Auto) (0.0-0.1) K/mm3 Abs Immat Gran (auto) (0.00-0.031) K/mm3 Absolute Neuts (auto) (1.3-6.7) K/mm3 Absolute Nucleated RBC (0.0-0.012) K/mm3 Nucleated RBC % (0.0-0.2) % ESR (0-20) mm/hr PT (11.1-14.7) Seconds INR APTT (22.3-36.8) Seconds Sodium (137-145) mmol/L Potassium (3.4-5.0) mmol/L Chloride (98-107) mmol/L Carbon Dioxide (22-30) mmol/L Anion Gap (4-12) mmol/L BUN (9-20) mg/dL Creatinine (0.7-1.3) mg/dL Estim Creat Clear Calc ml/min Estimated GFR (59 - ) Glucose (65-110) mg/dL Lactic Acid (0.7-2.0) mmol/L Calcium (8.4-10.2) mg/dL Magnesium (1.6-2.3) mg/dL Total Bilirubin (0.2-1.3) mg/dL AST (17-59) U/L ALT (6-50) U/L Alkaline Phosphatase (38-126) U/L Total Creatine Kinase (55-170) U/L Troponin I (0.000-0.034) ng/mL C-Reactive Protein (<1.0) mg/dL NT-Pro-B Natriuret Pep (19.9-100) pg/mL Total Protein (6.3-8.2) g/dL Albumin (3.5-5.1) g/dL Lipase (23-300) U/L Procalcitonin ng/mL TSH (Reflex) (0.465-4.68) uIU/mL Free T4 Urine Color Yellow (Yellow) Urine Appearance Clear (Clear) Urine pH 8.5 (5.0-9.0) Ur Specific [place] > 1.045 H (1.001-1.035) Urine Protein 1+ H (Negative) mg/dL Urine Glucose (UA) Negative (Negative) mg/dL Urine Ketones Negative (Negative) mg/dL Ur Blood (Man) Negative (Negative) Urine Nitrate Negative (Negative) Urine Bilirubin Negative (Negative) Urine Urobilinogen 1.0 (<2.0) mg/dL Leukocyte Esterase Rfl Negative (Negative) JALEESA/UL Urine RBC 0-2 (0-2) /hpf Urine WBC 0-5 (0-3) /hpf Ur Squamous Epith Cells None seen (Few) /hpf Urine Bacteria None seen /hpf Urine Casts 0-2 Influenza A (RT-PCR) (Negative) Influenza B (RT-PCR) (Negative) RSV (RT-PCR) (Negative) SARS-CoV-2 RNA (RT-PCR) (Negative) ABG Data ABG results: 01/21/25 01:18 VBG pH 7.409 H* VBG pCO2 48.9 H VBG pO2 < 27.0 L VBG HCO3 30.2 H O2 Delivery Device Not Reportable O2 Liters/Min Not Reportable FiO2 24 ECG Data EKG #1: Attestation: I personally reviewed and interpreted this ECG as follows: ECG completion date: 01/21/25 ECG completion time: 01:17 Interpretation: Rate of 97, rhythm sinus rhythm, axis is left axis deviation, pattern consistent with pulmonary disease, Q-waves present in lead V3, no ST elevations or depressions, baseline artifact present, no overt T-wave abnormalities. Critical Care Time Critical Care Time Critical Care Time: Yes Indication: Sepsis Time Type: Intermittent Initial evaluation, discuss w/ involved parties, attempting to gather old records: 10 minutes Documenting medical record: 10 minutes Review of results (EKG's, labs, imaging): 10 minutes Serial repeat bedside evaluation: 10 minutes Discussing case with multiple memebers of the care team and consultants: 5 minutes Total Critical Care Time: 45 Discharge Plan Discharge Clinical Impression: Pressure injury Sepsis Qualifiers: Sepsis type: sepsis due to unspecified organism Sepsis acute organ dysfunction status: unspecified Qualified Code(s): A41.9 - Sepsis, unspecified organism Pneumonia Qualifiers: Pneumonia type: due to unspecified organism Laterality: right Lung location: u nspecified part of lung Qualified Code(s): J18.9 - Pneumonia, unspecified organism Patient Disposition: Still a Patient Condition: Serious Patient Language: Hebrew Prescriptions: No Action finasteride [Proscar] 5 mg tablet 5 mg feeding tube DAILY ondansetron HCl 4 mg tablet 4 mg feeding tube Q4H PRN (Reason: nausea and [id number]) diazepam [Valium] 10 mg Tablet 20 mg PO HS acetaminophen 325 mg Tablet 325 mg PO Q4H PRN (Reason: Pain (Scale Score 1-3)) zolpidem 5 mg tablet 5 mg feeding tube HS albuterol sulfate 2.5 mg /3 mL (0.083 %) solution for nebulization 2.5 mg inhalation Q4-6H PRN (Reason: shortness of breath or wheezing) levofloxacin 750 mg tablet 750 mg PO DAILY 7 Days Qty: 7 0RF metronidazole 500 mg tablet 500 mg PO Q8H 7 Days Qty: 21 0RF zolpidem 10 mg Tablet 5 mg feeding tube HS PRN (Reason: Sleep) Rx Instructions: if 5mg scheduled dose not effective Follow-up/Referrals: Larry Hinojosa [Other] Time of Disposition: 04:20
--- NOTE | 2025-01-21 01:11 | ECG_ITS ---
Test Date: 2025-01-21 01:17:01 Measurements Intervals [place] Rate: 97 P: 58 [place]: 137 QRS: -41 QRSD: 98 T: 59 QT: 321 QTc: 409 Interpretive Statements SINUS RHYTHM LEFT AXIS DEVIATION CANNOT R/O SEPTAL INFARCT, AGE INDETERMINATE BASELINE ARTIFACT- I, II, III, AVR, AVL, AVF, V1-V6 ABNORMAL ECG Compared to ECG 12/06/2024 00:51:48 HEART RATE HAS DECREASED Electronically Signed On 01-21-2025 06:19:16 LOAN WORKOUT OFFICER by West Ortiz D.O.
[2025-01-21 01:26] LABS: Hematocrit 39.5 % (42.0-52.0); Hemoglobin 12.8 g/dL (14.0-18.0); Immature Granulocyte Percent A 0.4 % (0-0.5); Lymphocytes Absolute Auto 0.51 K/mm3 (0.9-3.2); Mean Corpuscular HGB Conc 32.4 g/dl (32-36); Mean Corpuscular Hemoglobin 32.4 pg (26-34); Mean Corpuscular Volume 100.0 fl (80-100); Nucleated Red Blood Cells Absolute Auto 0.000 K/mm3 (0.0-0.012); Nucleated Red Blood Cells Perc 0.0 % (0.0-0.2); Platelet Count Result 163 k/mm3 (150-375); Red Blood Count 3.95 M/mm3 (4.6-6.20); White Blood Count 10.2 K/mm3 (4.5-10.0)
--- OUTSIDE RECORDS SUMMARY | 2025-01-21 01:32 | XMS_ITS ---
Author Organization [facility] Address [address] [place] [address] Care Team Providers Care Wrap Turner Name Role Phone Robbin Willis MD PhD Unavailable [phone] Noelle Rowland Unavailable Unavailab Jessica Ta RN Unavailable Un available Kimberlee Damon RN Unavailable Unavailab Malvin Gillis MD Unavailable [phone] Lloyd Sykes MD Unavailable [phone] Charlene Gomez DO Unavailable [phone] Larry Hinojosa MD Primary Care Provider + Larry Hinojosa MD Unavailable [phone] Miscellaneous, Not In File Unavailable Unava ilable Shakeel Thakkar MD Unavailable [phone] Active Problems Problem Noted Date Diagnosed Date [...] Spina bifida of lumbar region without hydrocepha jeniffer 07/04/2021 Feeding difficulty 10/21/2020 Assessment & Plan [...] 03/04/2020 Assessment & Plan (03/04/2020 4:47 PM AUTOMATIC GRINDER OPERATOR): On standing drops 50 and not able to make the sitting better without drooing the Standing way low discussed suport hose to Help. tiral salt retentnio andsitting bp went way up so no more Asymptomatic microscopic hematuria 02/28/2020 Laryngeal candidiasis 01/18/2020 Assessment & Plan (01/18/2020 1:50 PM AUTOMATIC GRINDER OPERATOR): Nystatin swish, gargle and spits 3-4 times per day Monitor for improvement in oropharynx 64 ounces of caffeine free and soda free fluid daily Labile blood pressure 11/19/2019 PATRICK (dyspnea on exertion) 11/19/2019 Benign prostatic hyperplasia with weak urinary s tream 11/19/2019 Vitamin D deficiency 11/19/2019 Acquired hypothyroidism 10/07/2019 Assessment & Plan (03/04/2020 4:49 PM AUTOMATIC GRINDER OPERATOR): tsh 8 and taking 1/4 of a [...] daily Softer diet, with additional nutritional shakes termination clerk (current) use of opiate analgesic 11/18 Assessment & Plan (04/08/2019 2:19 PM AUTOMATIC GRINDER OPERATOR): Takes 1/4 -1/2 norca usually but on [...] 08/31/2018 Assessment & Plan (03/04/2020 4:45 PM AUTOMATIC GRINDER OPERATOR): demo'd of recurrent aspiratoni and now working [...] controll Assessment & Plan (04/08/2019 2:12 PM AUTOMATIC GRINDER OPERATOR): Work to keep wt up. Along with [...] future Assessment & Plan (04/08/2019 2:01 PM AUTOMATIC GRINDER OPERATOR): Restart trace Dose statin to target ldll less then 100. No diet Assessment & Plan (10/01/2018 4:11 PM CDT): Check in future no diet Assessment & Plan (04/03/2018 1:37 PM AUTOMATIC GRINDER OPERATOR): ldl drooped to 106 and 40 drop [...] 04/03/2018 Assessment & Plan (04/03/2018 1:46 PM AUTOMATIC GRINDER OPERATOR): Ct shows sub centimeter lesion to sl=mall to Discribe. Will do sono of spleen in 5-6 m onths before seen in f.u IGT (impaired glucose tolerance) 04/03/2018 Assessment & Plan (10/07/2019 3:54 PM CDT): Nl and stable and nodiet limtis Assessment & Plan (05/19/2019 12:05 PM CDT): Check a1c on returjn Assessment & Plan (04/08/2019 2:00 PM AUTOMATIC GRINDER OPERATOR): Check on feturn Assessment & Plan (10/01/2018 4:12 PM CDT): a1c at 5/4 and nl Assessment & Plan (04/03/2018 1:51 PM AUTOMATIC GRINDER OPERATOR): No diet and check on retiurn Benign prostatic hyperplasia with incomplete bladder emptying 01/23/2018 Assessment & Plan (04/08/2019 2:12 PM AUTOMATIC GRINDER OPERATOR): Watch for retention Assessment & Plan (01/23/2018 1:32 PM AUTOMATIC GRINDER OPERATOR): Trial flomax and see if helps and [...] risk Assessment & Plan (04/08/2019 1:59 PM AUTOMATIC GRINDER OPERATOR): Retry statin and try for tighter ldl and dialy asa Assessment & Plan (10/01/2018 4:20 PM CDT): Asa and ldl Tight contorll and check onretiurn restrt asa and restart trace liopitor 1/4 a week Assessment & Plan (04/03/2018 1:35 PM AUTOMATIC GRINDER OPERATOR): Target better risk controll and agrees to trial low dose statin Assessment & Plan (01/23/2018 1:34 PM AUTOMATIC GRINDER OPERATOR): Seen on ct and want to c heck o risk and consider opton to reduce sa if tolerant of Urinary urgency 01/07/2018 Assessment & Plan (01/07/2018 2:23 PM AUTOMATIC GRINDER OPERATOR): Description patient office in regard to possible [...] silvadene. 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 Norman is [...] heals. Assessment & Plan (02/22/2017 3:12 PM AUTOMATIC GRINDER OPERATOR): His cough has resolved other than to expel secretions. There is no sign of underlying infection noted on exam today. He will complete his antibiotic course as previously directed. Humidification fluids were once again encouraged. Primary insomnia 01/02/2017 Assessment & Plan (01/02/2017 3:50 PM AUTOMATIC GRINDER OPERATOR): Refilled Ambien 10 mg tablets q.h.s. patient was advised follow up in 4 months regarding condition Chronic anxiety 01/02/2017 Assessment & Plan (01/02/2017 3:50 PM AUTOMATIC GRINDER OPERATOR): Refilled diazepam 10 mg tablets b.i.d. p.r.n. [...] PM CDT): Post radiation burn and seeing. termination clerk inflamation and ongoing issues. No answer but time Assessment & Plan (08/16/2016 2:43 PM CDT): Strep neg. Risk was low. Will do a cultpure back up and if not heard by margaux/cherelle call back for it Chronic pain syndrome 08/16/2016 Assessment & Plan (10/07/2019 3:51 PM CDT): Off manolo meds and prn valium usuall 2 and asking for occasional 3 Assessment & Plan (04/03/2018 1:54 PM AUTOMATIC GRINDER OPERATOR): Off norco in 1-2 wks and will not fill onced gets valium Assessment & Plan (01/23/2018 1:46 PM AUTOMATIC GRINDER OPERATOR): Seeing pain md. Using 2 tid norco /325. Long talk of dual sedatives with hydrocodone and valium now averages 1 hydrocodone and told we don't nl'ly sc ript both to same patient. Will di rect to educate self on and talk a bout taper on valium Assessment & Plan (01/30/2017 5:01 PM AUTOMATIC GRINDER OPERATOR): Cont meds and diet Assessment & Plan (08/16/2016 2:45 PM CDT): Chronic pain and on Hydrocodone. Tramadol use as primary pain and add the hydrocodone as after that. Sensorineural hearing loss (SNHL) 02/08/2016 Lymphadenopathy 01/19/2016 Dysphagia 11/02/2015 Assessment & Plan (02/27/2021 5:06 PM AUTOMATIC GRINDER OPERATOR): Continue tube feeds Consider speech therapy to [...] 09/21/2015 Assessment & Plan (03/20/2023 3:20 PM AUTOMATIC GRINDER OPERATOR): Consider physical therapy Good hydration Avoid fluids within 3-4 hours of bedtime Good oral care Onset of this problems was 2015 and was associated with Base of Tongue squamous cell carcinoma [address] [place] [address] Anders performed Base of [...] Tongue squamous cell carcinoma [address] [place] [address] Anders performed Base of [...] Tongue squamous cell carcinoma [address] [place] [address] Adners performed Base of Tongue and Right neck [...] improved. Assessment & Plan (02/27/2021 3:19 PM AUTOMATIC GRINDER OPERATOR): Continue tube feeds Consider speech therapy to improve swallow Modified barium swallow Continue omeprazole Humidifier in bedtime Assessment & Plan (07/19/2020 2:33 PM CDT): Peridex swish and spit after meals and before bedtime Multivitamin daily, crushed up in applesauce. 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 Anders performed Base of [...] guidewire guidance. This should be done at [facility]. RSD (reflex sympathetic dystrophy) 09/01/2013 Overview [...] (09/28/2021): Added automatically from request for surgery [id number] Hospital discharge follow-up 03/04/2020 07/04/2021 Assessment & Plan (03/04/2020 4:57 PM AUTOMATIC GRINDER OPERATOR): Was not contacted by [facility] for med [...] viral URI. Recommending COVID-19 testing via ambulatory/ [facility] care collection who will contact her regarding [...] (07/31/2018): Added automatically from request for surgery [id number] Nausea 02/22/2017 01/23/2018 Assessment & Plan (08/13/2017 4:33 PM CDT): Adjusted fentyl And came off and nausea beter to gone. Pain back and went back on. Assessment & Plan (02/22/2017 3:11 PM AUTOMATIC GRINDER OPERATOR): Patient complains of nausea. This may be [...] diagnostics Assessment & Plan (02/15/2017 4:26 PM AUTOMATIC GRINDER OPERATOR): cxr neg. Better wit fenev until yesterday. Extend te amoxil 250 Qid for 10 days. Probiotics to protect gut. BMI 21.0-21.9, adult 01/02/2017 021 Assessment & Plan (10/07/2019 3:55 PM CDT): Up a few lbs. And work to get up Assessment & Plan (04/08/2019 2:00 PM AUTOMATIC GRINDER OPERATOR): Work to keep wt stable and not drop any Assessment & Plan (01/04/2017 2:02 PM AUTOMATIC GRINDER OPERATOR): Continue with PEG tube feedings as previously implemented advised by specialist Assessment & Plan (01/02/2017 3:48 PM AUTOMATIC GRINDER OPERATOR): Continue with PEG tube feedings as previously implemented in advised by specialist Fever, unknown origin 01/02/20172020 Assessment & Plan (02/26/2020 6:33 AM AUTOMATIC GRINDER OPERATOR): 9 months for tempt from 100 to [...] from er to admit to nursing sup contact lens flashing puncher to eventually have a bed found Assessment & Plan (01/30/2017 5:01 PM AUTOMATIC GRINDER OPERATOR): Fever gone Assessment & Plan (01/02/2017 3:50 PM AUTOMATIC GRINDER OPERATOR): Please refer to care plan under pneumonia Pneumonia due to infectious organism 01/02/2017 01/04/2017 Assessment & Plan (01/02/2017 3:49 PM AUTOMATIC GRINDER OPERATOR): Imaging suggestive right lower lobe pneumonia considering his risk factors with the PEG to an tracheostomy aspiration pneumonia is likely cause. Recommended high-dose Augmentin from to take twice daily along with [id number] probiotics to which he is going to try to use 1 tbsp to Luxembourg[place] yogurt daily via PEG tube. We will [...]
--- OUTSIDE RECORDS SUMMARY | 2025-01-21 01:32 | XMS_ITS | Encounter Summary ---
Author Organization [facility] Address [address] [place] [address] Phone Care Team Providers Care Rehabilitation Assistant Name Role Phone Isidro Redd MD Primary Care Provi mike Robbin Willis MD PhD Unavailable [phone] Noelle Rowland Unavailable Unavailab Jessica Ta RN Unavailable Un available Kimberlee Damon RN Unavailable Unavailab Lesly Trinidad RN Unavailable Ana Rosa Lundy RN Unavailable [phone] Malvin Lopez MD Unavailable [phone] Lloyd Sykes MD Unavailable [phone] HardyJenni garcia RN Unavailable [phone] Angelita Oshea LPN Unavailable [phone] Brian Marvin Primary Care Provider Isidro Redd MD Primary Care Provi mike Isidro Redd MD Primary Care Provi mike Brian Marvin Primary Care Provider Charlene Gomez DO Unavailable [phone] Larry Hinojosa MD Primary Care Provider + Larry Hinojosa MD Unavailable [phone] Miscellaneous, Not In File Unavailable Unava ilable Shakeel Thakkar MD Unavailable [phone] Encounter Details Date Type Department Care Team (Late st Contact Info) Description 05/29/2017 Orders Only [facility] Provider, MD [address] [place] [address] Social History Tobacco Use Types Packs/Day Years Used Date Smoking Tobacco: Never Smokeless Tobacco: Never Alcohol Use Standard Drinks/Week Comments No 0 (1 standard drink = 0.6 oz pur e alcohol) Sex and Gender Information Value Date Recorded Sex Assigned at Not on file Legal Sex Male 11:52 PM ELECTRICAL LINE SPLICER Gender Identity Not on file Sexual Orientation [...] Suspected 03/21/2021 03/21/2021 03/21/2021 5:03 AM ELECTRICAL LINE SPLICER COVID19 03/21/2021 03/21/2021 03/31/2021 3:06 AM ELECTRICAL LINE SPLICER COVID: Recovered Comment:Added based on recent COVID infection. 03/31/2021 04/04/2021 07/29/2021 3:05 AM C DT COVID: Suspected 07/10/2022 07/10/2022 07/10/2022 8:02 PM CDT COVID: Suspected 01/22/2024 01/22/2024 01/22/2024 2:49 AM ELECTRICAL LINE SPLICER COVID: Suspected 02/09/2024 02/09/2024 02/09/2024 10:24 AM ELECTRICAL LINE SPLICER COVID19 02/09/2024 02/09/2024 02/28/2024 3:08 AM ELECTRICAL LINE SPLICER COVID: Recovered Comment:Added based on recent COVID infection. 02/28/2024 02/29/2024 05/28/2024 3:05 AM C DT COVID: Suspected 02/29/2024 02/29/2024 02/29/2024 5:47 PM ELECTRICAL LINE SPLICER COVID19 02/29/2024 02/29/2024 03/02/2024 12:0 5 PM ELECTRICAL LINE SPLICER documented as of this encounter Care Teams Rehabilitation Assistant Relationship Specialty Start Date End Date Isidro Redd MD PCP - General 05/18/16 10/03/21 Brian Marvin PA [address] [place] [address] [place] [address] PCP - General Internal Medicine 10/19/21 11/02/21 Isidro Redd MD [address] [place] [address] [place] [address] PCP - General 10/04/21 10/18/21 Isidro Redd MD [address] [place] [address] [place] [address] PCP - General 11/03/21 11/06/21 Brian Mavrin PA [address] [place] [address] [facility] [place] [address] PCP - General Internal Medicine 11/07/21 05/30/22 Larry Hinojosa MD [address] [place] [address] PCP - General Internal Medicine 05/31/22 Robbin Willis MD PhD [address] [place] [address] Consulting Physician Radiation Oncology 01/24/17 Noelle Rowland, PLAN MANAGER Speech Language Pathologist Speech Therapy 01/31/17 Jessica Knight, [place] Registered Nurse 06/14/17 Kimberlee Damon, RN Registered Nurse Pain Management 06/28/17 Lesly Torres, [place] Alumnae Secretary 09/08/18 10/07/18 Ana Rosa Lundy, [place] [address] [place] [address] [address] [place] [address] Alumnae Secretary 03/02/20 03/30/20 Malvin Lopez MD [address] [place] [address] [address] [place] [address] Consulting Physician Urology 08/17/20 Lloyd Sykes MD [address] [place] [address] [address] [place] [address] Consulting Physician Gastroenterology 08/21/20 Jenni Hardy, RN [address] [facility] [address] [place] [address] Alumnae Secretary 08/22/20 10/02/20 Angelita Oshea LPN [address] [facility] [address] [place] [address] ACO Care Dealer Sales Manager 03/25/21 04/03/21 Charlene Gomez DO [address] [facility] [address] [facility] [address] [place] [address] Consulting Physician Otolaryngology 05/31/22 Larry Hinojosa MD [address] [facility] [address] [place] [address] Referring Physician Internal Medicine 08/20/22 Miscellaneous, Not In File 01/31/24 Shakeel Thakkar MD [address] [facility] [address] [place] [address] Consulting Physician Pulmonary Disease 01/31/24 documented as of this encounter
--- OUTSIDE RECORDS SUMMARY | 2025-01-21 01:32 | XMS_ITS | Encounter Summary ---
Author Organization [facility] Address [address] [place] [address] Phone Care Team Providers Care Wallpaper Cleaner Name Role Phone Isidro Redd MD Primary Care Provi mike Robbin Willis MD PhD Unavailable [phone] Noelle Rowland Unavailable Unavailab Jessica Ta RN Unavailable Un available Kimberlee Damon RN Unavailable Unavailab Lesly Trinidad RN Unavailable Ana Rosa Lundy RN Unavailable [phone] Malvin Lopez MD Unavailable [phone] Lloyd Sykes MD Unavailable [phone] HardyJenni garcia RN Unavailable [phone] Angelita Oshea LPN Unavailable [phone] Brian Marvin Primary Care Provider Isidro Redd MD Primary Care Provi mike Isidro Redd MD Primary Care Provi mike Brian Marvin Primary Care Provider Charlene Gomez DO Unavailable [phone] Larry Hinojosa MD Primary Care Provider + Larry Hinojosa MD Unavailable [phone] Miscellaneous, Not In File Unavailable Unava ilable Shakeel Thakkar MD Unavailable [phone] Encounter Details Date Type Department Care Team (Late st Contact Info) Description 01/22/2017 Orders Only [facility] Provider, MD [address] [place] [address] Social History Tobacco Use Types Packs/Day Years Used Date Smoking Tobacco: Never Alcohol Use Standard Drinks/Week Comments No 0 (1 standard drink = 0.6 oz pur e alcohol) Sex and Gender Information Value Date Recorded Sex Assigned at Not on file Legal Sex Male 11:52 PM CONE EXAMINER Gender Identity Not on file Sexual Orientation [...] COVID: Suspected 03/21/2021 03/21/2021 03/21/2021 5:03 AM CONE EXAMINER COVID19 03/21/2021 03/21/2021 03/31/2021 3:06 AM CONE EXAMINER COVID: Recovered Comment:Added based on recent COVID infection. 03/31/2021 04/04/2021 07/29/2021 3:05 AM C DT COVID: Suspected 07/10/2022 07/10/2022 07/10/2022 8:02 PM CDT COVID: Suspected 01/22/2024 01/22/2024 01/22/2024 2:49 AM CONE EXAMINER COVID: Suspected 02/09/2024 02/09/2024 02/09/2024 10:24 AM CONE EXAMINER COVID19 02/09/2024 02/09/2024 02/28/2024 3:08 AM CONE EXAMINER COVID: Recovered Comment:Added based on recent COVID infection. 02/28/2024 02/29/2024 05/28/2024 3:05 AM C DT COVID: Suspected 02/29/2024 02/29/2024 02/29/2024 5:47 PM CONE EXAMINER COVID19 02/29/2024 02/29/2024 03/02/2024 12:0 5 PM CONE EXAMINER documented as of this encounter Care Teams Wallpaper Cleaner Relationship Specialty Start Date End Date Isidro Redd MD PCP - General 05/18/16 10/03/21 Brian Marvin PA [address] [place] [address] [place] [address] PCP - General Internal Medicine 10/19/21 11/02/21 Isidro Redd MD [address] [place] [address] [place] [address] PCP - General 10/04/21 10/18/21 Isidro Redd MD [address] [place] [address] [place] [address] PCP - General 11/03/21 11/06/21 Brian Marvin PA [address] [place] [address] [address] [place] [address] PCP - General Internal Medicine 11/07/21 05/30/22 Larry Hinojosa MD [address] [facility] [place] [address] PCP - General Internal Medicine 05/31/22 Robbin Willis MD PhD [address] [place], [place] [address] [place] [address] Consulting Physician Radiation Oncology 01/24/17 Noelle Rowland, MEDICAL REPRESENTATIVE Speech Language Pathologist Speech Therapy 01/31/17 Jessica Knight, [place] Registered Nurse 06/14/17 Kimberlee Damon, [place] Registered Nurse Pain Management 06/28/17 Lesly Torres, [place] Food Crops Farm Hand 09/08/18 10/07/18 Ana Rosa Lundy, RN [address] [place] [address] [address] [place] [address] Food Crops Farm Hand 03/02/20 03/30/20 Malvin Lopez MD [address] [place] [address] [address] [place] [address] Consulting Physician Urology 08/17/20 Lloyd Sykes MD [address] [place] [address] [address] [place] [address] Consulting Physician Gastroenterology 08/21/20 Jenni Hardy, RN [address] [facility] [address] [place] [address] Food Crops Farm Hand 08/22/20 10/02/20 Angelita Oshea LPN [address] [facility] [address] [place] [address] ACO Care Port Patrol Officer 03/25/21 04/03/21 Charlene Gomez DO [address] [facility] [address] [facility] [address] [place] [address] Consulting Physician Otolaryngology 05/31/22 Larry Hinojosa MD [address] [facility] [address] [place] [address] Referring Physician Internal Medicine 08/20/22 Miscellaneous, Not In File 01/31/24 Shakeel Thakkar MD [address] [facility] [address] [place] [address] Consulting Physician Pulmonary Disease 01/31/24 documented as of this encounter
--- OUTSIDE RECORDS SUMMARY | 2025-01-21 01:32 | XMS_ITS | Encounter Summary ---
Author Organization [facility] Address [address] [place] [address] Phone Care Team Providers Care Associate Professor Of Chemistry Name Role Phone Isidro Redd MD Primary Care Provi mike Robbin Willis MD PhD Unavailable [phone] Noelle Rowland Unavailable Unavailab Jessica Ta RN Unavailable Un available Kimberlee Damon RN Unavailable Unavailab Lesly Trinidad RN Unavailable Ana Rosa Lundy RN Unavailable [phone] Malvin Lopez MD Unavailable [phone] Lloyd Sykes MD Unavailable [phone] HardyJenni garcia RN Unavailable [phone] Angelita Oshea LPN Unavailable [phone] Brian Marvin Primary Care Provider Isidro Redd MD Primary Care Provi mike Isidro Redd MD Primary Care Provi mike Brian Marvin Primary Care Provider Charlene Gomez DO Unavailable [phone] Larry Hinojosa MD Primary Care Provider + Larry Hinojosa MD Unavailable [phone] Miscellaneous, Not In File Unavailable Unava ilable Shakeel Thakkar MD Unavailable [phone] Encounter Details Date Type Department Care Team (Late st Contact Info) Description 03/05/2017 Orders Only [facility] Provider, MD [address] [place] [address] Social History Tobacco Use Types Packs/Day Years Used Date Smoking Tobacco: Never Smokeless Tobacco: Never Alcohol Use Standard Drinks/Week Comments No 0 (1 standard drink = 0.6 oz pur e alcohol) Sex and Gender Information Value Date Recorded Sex Assigned at Not on file Legal Sex Male 11:52 PM DIABETES TRAINER Gender Identity Not on file Sexual Orientation [...] COVID: Suspected 03/21/2021 03/21/2021 03/21/2021 5:03 AM DIABETES TRAINER COVID19 03/21/2021 03/21/2021 03/31/2021 3:06 AM DIABETES TRAINER COVID: Recovered Comment:Added based on recent COVID infection. 03/31/2021 04/04/2021 07/29/2021 3:05 AM C DT COVID: Suspected 07/10/2022 07/10/2022 07/10/2022 8:02 PM CDT COVID: Suspected 01/22/2024 01/22/2024 01/22/2024 2:49 AM DIABETES TRAINER COVID: Suspected 02/09/2024 02/09/2024 02/09/2024 10:24 AM DIABETES TRAINER COVID19 02/09/2024 02/09/2024 02/28/2024 3:08 AM DIABETES TRAINER COVID: Recovered Comment:Added based on recent COVID infection. 02/28/2024 02/29/2024 05/28/2024 3:05 AM C DT COVID: Suspected 02/29/2024 02/29/2024 02/29/2024 5:47 PM DIABETES TRAINER COVID19 02/29/2024 02/29/2024 03/02/2024 12:0 5 PM DIABETES TRAINER documented as of this encounter Care Teams Associate Professor Of Chemistry Relationship Specialty Start Date End Date Isidro Redd MD PCP - General 05/18/16 10/03/21 Brian Marvin PA [address] [place] [address] [place] [address] PCP - General Internal Medicine 10/19/21 11/02/21 Isidro Redd MD [address] [place] [address] [place] [address] PCP - General 10/04/21 10/18/21 Isidro Redd MD [address] [place] [address] [place] [address] PCP - General 11/03/21 11/06/21 Brian Marvin PA [address] [place] [address] [facility] [place] [address] PCP - General Internal Medicine 11/07/21 05/30/22 Larry Hinojosa MD [address] [place] [address] PCP - General Internal Medicine 05/31/22 Robbin Willis MD PhD [address] [place] [address] Consulting Physician Radiation Oncology 01/24/17 Noelle Rowland, EXTRACORPOREAL CIRCULATION SPECIALIST Speech Language Pathologist Speech Therapy 01/31/17 Jessica Knight, CAROLA Registered Nurse 06/14/17 Kimberlee Damon, RN Registered Nurse Pain Management 06/28/17 Lesly Torres, CAROLA Warranty Clerk 09/08/18 10/07/18 Ana Rosa Lundy, CAR[place]A [address] [place] [address] [address] [place] [address] Warranty Clerk 03/02/20 03/30/20 Malvin Lopez MD [address] [place] [address] [address] [place] [address] Consulting Physician Urology 08/17/20 Lloyd Sykes MD [address] [place] [address] [address] [place] [address] Consulting Physician Gastroenterology 08/21/20 Jenni Hardy, RN [address] [facility] [address] [place] [address] Warranty Clerk 08/22/20 10/02/20 Angelita Oshea LPN [address] [facility] [address] [place] [address] ACO Care Patient Insurance Clerk 03/25/21 04/03/21 Charlene Gomez DO [address] [facility] [address] L[address] Monet [facility] [address] [place] [address] Consulting Physician Otolaryngology 05/31/22 Larry Hinojosa MD [address] [facility] 1 [place] [address] Referring Physician Internal Medicine 08/20/22 Miscellaneous, Not In File 01/31/24 Shakeel Thakkar MD [address] [facility] [address] [place] [address] Consulting Physician Pulmonary Disease 01/31/24 documented as of this encounter
--- OUTSIDE RECORDS SUMMARY | 2025-01-21 01:32 | XMS_ITS | Patient Health Record ---
Author Organization [facility] Address [address] [facility] [address] [place] [address] Support Name Relationship Address Phone Mla Akhtar Guarantor Unknown [phone] Reason For Referral No Information Medications Medication SIG (Take, Route, Frequency, Duration) Notes Start Date End Date Status HYDROcodone-Acetaminophen 5-325 MG Oral Active Ondansetron 4 MG Oral Act allison Plan Of Treatment No Information Insurance Providers Payer Name Payer Address Payer Phone Subscriber Number Group Number Insured Name Patient Relationship to Insured Coverage Start Date Coverage End Date DO NOT USE AR [id number] Mal Akhtar Self - patient is the insured 8 DO NOT USE [id number] Mal Akhtar Self - patient is the insured [place] [address] [place] [id number] PLAN G Mal Akhtar Self - patient is the insured 9 Medical (General) History Surgical History Surgery Date(Month/Year) node surgery; 2016-12-26
--- OUTSIDE RECORDS SUMMARY | 2025-01-21 01:34 | XMS_ITS | Clinical Summary ---
Author Organization [facility] Address [address] [facility] [place] [address] Care Team Providers Care Service Sprinkler Helper Name Role Phone Isidro Redd MD Primary Care Provi mike Source Comments [facility],non-owned Affiliates and Associated Physician Practices is amultiple site organization consisting of ambulatory clinics and hospital sitesin [place], [place], [place] and [place]. This disclosure is being madepursuant to the Care Everywhere program and may not contain all information available regarding this patient. Last updated 17.[facility] Encounters Date Type Department Care Team Description 12/01/2024 2:00 PM CDT Office Visit [facility] - ENT [address] [place] [id number] Lis Castelan, ACID SUPERVISOR Oropharyngeal cancer (HCC) (Primary Dx); Oropharyngeal dysphagia 12/01/2024 Travel from Last 3 Months Social History Tobacco Use Types Packs/Day Years Used Date Smoking Tobacco: Never Assessed Sex and Gender Information Value Date Recorded Sex Assigned at Not on file Legal Sex Male 6:14 AM SLASHER TENDER HELPER Gender Identity Not on file Sexual Orientation Not on file Plan of Treatment Health Maintenance Due Date Last Done Comments COLOGUARD (AGES 45-75) - COL ON CA SCREENING 1953 COLON MONITORING 1953 COLONOSCOPY - COLON CA SCREENING 1953 CT COLONOGRAPHY - COLON CA SCREENING 1953 Colorectal Cancer Screening 1953 FIT - COLON CA SCREENING 1953 FLEX SIG - COLON CA SCREENING 1953 LIPID TESTING 1953 MEDICARE AWV 12 MONTHS 1953 HEPATITIS [...] yrs (1 - 1-dose 75+ series) 2028 HEPATITIS B VACCINE Aged Out No longe [...] age to complete this topic Insurance MEDICARE [facility] MEDICARE Care Teams Service Sprinkler Helper Relationship Specialty Start Date End Date Isidro Redd MD PCP - General 07/20/20
--- OUTSIDE RECORDS SUMMARY | 2025-01-21 01:34 | XMS_ITS | Encounter Summary ---
Author Organization [facility] Address [address] [place] [address] Care Team Providers Care Director Student Union Name Role Phone Isidro Redd MD Primary Care Provi mike Robbin Willis MD PhD Unavailable [phone] Noelle Rowland Unavailable Unavailab Jessica Ta RN Unavailable Un available Kimberlee Damon RN Unavailable Unavailab Ana Rosa Borja RN Unavailable [phone] Malvin Lopez MD Unavailable [phone] Lloyd Sykes MD Unavailable [phone] Jenni Hardy RN Unavailable [phone] Angelita Oshea LPN Unavailable [phone] Brian Marvin Primary Care Provider Isidro Redd MD Primary Care Provi mike Isidro Redd MD Primary Care Provi mike Brian Marvin Primary Care Provider Charlene Gomez DO Unavailable [phone] Larry Hinojosa MD Primary Care Provider + Larry Hinojosa MD Unavailable [phone] Miscellaneous, Not In File Unavailable Unava ilable Shakeel Thakkar MD Unavailable [phone] Encounter Details Date Type Department Care Team (Late st Contact Info) Description 09/14/2019 Telephone [facility] [address] [place] [address] Jacob Preciado, RT Social History Tobacco Use Types Packs/Day Years Used Date Smoking Tobacco: Never Smokeless Tobacco: Never Alcohol Use Standard Drinks/Week Comments No 0 (1 standard drink = 0.6 oz pur e alcohol) PHQ-2 Answer Date Recorded PHQ-2 Score 0 10/08/2018 Sex and Gender Information Value Date Recorded Sex Assigned at Not on file Legal Sex Male 11:52 PM ENGINEERING AIDE Gender Identity Not on file Sexual Orientation Not on file documented as of this encounter Plan of Treatment Not on file documented as of this encounter Goals Goal Patient Goal Type Associated Problems Recent Progress Patient-Stated? Author BH-Pain Behavioral Health Improving(07/2019 1:15 PM ENGINEERING AIDE) No Rosenda Garrett, RN Note: Patient would [...] COVID: Suspected 03/21/2021 03/21/2021 03/21/2021 5:03 AM ENGINEERING AIDE COVID19 03/21/2021 03/21/2021 03/31/2021 3:06 AM ENGINEERING AIDE COVID: Recovered Comment:Added based on recent COVID infection. 03/31/2021 04/04/2021 07/29/2021 3:05 AM C DT COVID: Suspected 07/10/2022 07/10/2022 07/10/2022 8:02 PM CDT COVID: Suspected 01/22/2024 01/22/2024 01/22/2024 2:49 AM ENGINEERING AIDE COVID: Suspected 02/09/2024 02/09/2024 02/09/2024 10:24 AM ENGINEERING AIDE COVID19 02/09/2024 02/09/2024 02/28/2024 3:08 AM ENGINEERING AIDE COVID: Recovered Comment:Added based on recent COVID infection. 02/28/2024 02/29/2024 05/28/2024 3:05 AM C DT COVID: Suspected 02/29/2024 02/29/2024 02/29/2024 5:47 PM ENGINEERING AIDE COVID19 02/29/2024 02/29/2024 03/02/2024 12:0 5 PM ENGINEERING AIDE documented as of this encounter Care Teams Director Student Union Relationship Specialty Start Date End Date Isidro Redd MD PCP - General 05/18/16 10/03/21 Brian Marvin PA [address] [place] [address] [place] [address] PCP - General Internal Medicine 10/19/21 11/02/21 Isidro Redd MD [address] [place] [address] [place] [address] PCP - General 10/04/21 10/18/21 Isidro Redd MD [address] [place] [address] [place] [address] PCP - General 11/03/21 11/06/21 Brian Marvin PA [address] [facility] [place] [place] [address] [place] [address] PCP - General Internal Medicine 11/07/21 05/30/22 Larry Hinojosa MD [address] [place] [address] PCP - General Internal Medicine 05/31/22 Robbin Willis MD PhD [address] [facility] [place] [address] Consulting Physician Radiation Oncology 01/24/17 Noelle Rowland, EVENTS AND PROMOTIONS ASSISTANT Speech Language Pathologist Speech Therapy 01/31/17 Jessica Knight, RN Registered Nurse 06/14/17 Kimberlee Damon, RN Registered Nurse Pain Management 06/28/17 Ana Rosa Lundy, RN [address] [place] [address] [address] [place] [address] Hydro Excavation Operator 03/02/20 03/30/20 Malvin Lopez MD [address] [place] [address] [address] [place] [address] Consulting Physician Urology 08/17/20 Lloyd Sykes MD [address] [place] [address] [address] [place] [address] Consulting Physician Gastroenterology 08/21/20 Jenni Hardy, CAROLA [address] [place] [address] [address] [place] [address] Hydro Excavation Operator 08/22/20 10/02/20 Angelita Oshea LPN [address] [place] [address] [address] [place] [address] ACO Care Florist 03/25/21 04/03/21 Charlene Gomez DO [address] [facility] [address] LISA Monet [facility] [address] [place] [address] Consulting Physician Otolaryngology 05/31/22 Larry Hinojosa MD [address] [facility] 1 [place] [address] Referring Physician Internal Medicine 08/20/22 Miscellaneous, Not In File 01/31/24 Shakeel Thakkar MD [address] [facility] [address] [place] [address] Consulting Physician Pulmonary Disease 01/31/24 documented as of this encounter
--- OUTSIDE RECORDS SUMMARY | 2025-01-21 01:34 | XMS_ITS | Encounter Summary ---
Author Organization [facility] Address [address] [place] [address] Phone Care Team Providers Care Holder Pile Driving Name Role Phone Isidro Redd MD Primary Care Provi mike Robbin Willis MD PhD Unavailable [phone] Noelle Rowland Unavailable Unavailab Jessica Ta RN Unavailable Un available Kimberlee Damon RN Unavailable Unavailab Lesly Trinidad RN Unavailable Ana Rosa Lundy RN Unavailable [phone] Malvin Lopez MD Unavailable [phone] Lloyd Sykes MD Unavailable [phone] HardyJenni garcia RN Unavailable [phone] Angelita Oshea LPN Unavailable [phone] Brian Marvin Primary Care Provider Isidro Redd MD Primary Care Provi mike Isidro Redd MD Primary Care Provi mike Brian Marvin Primary Care Provider Charlene Gomez DO Unavailable [phone] Larry Hinojosa MD Primary Care Provider + Larry Hinojosa MD Unavailable [phone] Miscellaneous, Not In File Unavailable Unava ilable Shakeel Thakkar MD Unavailable [phone] Encounter Details Date Type Department Care Team (Late st Contact Info) Description 02/22/2017 Orders Only [facility] Provider, MD [address] [place] [address] Social History Tobacco Use Types Packs/Day Years Used Date Smoking Tobacco: Never Smokeless Tobacco: Never Alcohol Use Standard Drinks/Week Comments No 0 (1 standard drink = 0.6 oz pur e alcohol) Sex and Gender Information Value Date Recorded Sex Assigned at Not on file Legal Sex Male 11:52 PM HORSESHOER Gender Identity Not on file Sexual Orientation Not on file documented as of this encounter Functional Status * BP Location Answer Date of Assessment Author Right arm 02/22/2017 2:17 PM HORSESHOER Jaleesa Navarro * BP Location Answer Date of Assessment Author Right arm 02/22/2017 2:17 PM HORSESHOER Jaleesa Navarro documented as of this encounter Plan of Treatment Not on file documented as of this encounter Procedures Procedure Name Priority Date/Time Associated Diagnosis Comments DISCHARGE LABORATORY CUMULATIVE REPORT 02/22/2017 12:00 AM HORSESHOER documented in this encounter Results * DISCHARGE LABORATORY CUMULATIVE REPORT (02/22/2017 12:00 AM HORSESHOER) Narrative 02/22/2017 12:00 AM HORSESHOER Ordered by an unspecified provider. Historical Provider [...] COVID: Suspected 03/21/2021 03/21/2021 03/21/2021 5:03 AM HORSESHOER COVID19 03/21/2021 03/21/2021 03/31/2021 3:06 AM HORSESHOER COVID: Recovered Comment:Added based on recent COVID infection. 03/31/2021 04/04/2021 07/29/2021 3:05 AM C DT COVID: Suspected 07/10/2022 07/10/2022 07/10/2022 8:02 PM CDT COVID: Suspected 01/22/2024 01/22/2024 01/22/2024 2:49 AM HORSESHOER COVID: Suspected 02/09/2024 02/09/2024 02/09/2024 10:24 AM HORSESHOER COVID19 02/09/2024 02/09/2024 02/28/2024 3:08 AM HORSESHOER COVID: Recovered Comment:Added based on recent COVID infection. 02/28/2024 02/29/2024 05/28/2024 3:05 AM C DT COVID: Suspected 02/29/2024 02/29/2024 02/29/2024 5:47 PM HORSESHOER COVID19 02/29/2024 02/29/2024 03/02/2024 12:0 5 PM HORSESHOER documented as of this encounter Care Teams Holder Pile Driving Relationship Specialty Start Date End Date Isidro Redd MD PCP - General 05/18/16 10/03/21 Brian Marvin PA [address] [place] [address] [place] [address] PCP - General Internal Medicine 10/19/21 11/02/21 Isidro Redd MD [address] [place] [address] [address] [facility] [place] [address] PCP - General 10/04/21 10/18/21 Isidro Redd MD [address] [place] [address] [address] [facility] [place] [address] PCP - General 11/03/21 11/06/21 Brian Marvin PA [address] [place] [address] [address] [facility] [place] [address] PCP - General Internal Medicine 11/07/21 05/30/22 Larry Hinojosa MD [address] [facility] [place] [address] PCP - General Internal Medicine 05/31/22 Robbin Willis MD PhD [address] [place] [address] [place] [address] Consulting Physician Radiation Oncology 01/24/17 Noelle Rowland, WIND TURBINE TECHNICIAN Speech Language Pathologist Speech Therapy 01/31/17 Jessica Knight, [place] Registered Nurse 06/14/17 Kimberlee Damon, [place] Registered Nurse Pain Management 06/28/17 Lesly Torres RN Licensed Surveyor 09/08/18 10/07/18 Ana Rosa Lundy RN [address] [place] [address] [address] [place] [address] Licensed Surveyor 03/02/20 03/30/20 Malvin Lopez MD [address] [place] [address] [address] [place] [address] Consulting Physician Urology 08/17/20 Lloyd Sykes MD [address] [facility] [address] [place] [address] Consulting Physician Gastroenterology 08/21/20 Jenni Hardy, RN [address] [facility] [address] [place] [address] Licensed Surveyor 08/22/20 10/02/20 Angelita Oshea, SANTOS [address] [facility] [address] [place] [address] ACO Care Records Specialist 03/25/21 04/03/21 Charlene Gomez DO [address] [facility] [address] [facility] [address] [place] [address] Consulting Physician Otolaryngology 05/31/22 Larry Hinojosa MD [address] [facility] 1 [place] [address] Referring Physician Internal Medicine 08/20/22 Miscellaneous, Not In File 01/31/24 Shakeel Thakkar MD [address] [facility] [address] [place] [address] Consulting Physician Pulmonary Disease 01/31/24 documented as of this encounter
--- OUTSIDE RECORDS SUMMARY | 2025-01-21 01:34 | XMS_ITS | Encounter Summary ---
Author Organization [facility] Address [address] [place] [address] Care Team Providers Care Mechanical Product Design Engineer Name Role Phone Robbin Willis MD PhD Unavailable [phone] Noelle Rowland Unavailable Unavailab Jessica Ta RN Unavailable Un available Kimberlee Damon RN Unavailable Unavailab Malvin Gillis MD Unavailable [phone] Lloyd Sykes MD Unavailable [phone] Charlene Gomez DO Unavailable [phone] Larry Hinojosa MD Primary Care Provider + Larry Hinojosa MD Unavailable [phone] Miscellaneous, Not In File Unavailable Unava ilable Shakeel Thakkar MD Unavailable [phone] Encounter Details Date Type Department Care Team (Late st Contact Info) Description 11/13/2024 Telephone [facility] Gastroenterology at [facility] [address] [facility] [address] [place] [id number] Kash Ornelas MD [address] [facility] [address] [address] Social History Tobacco Use Types [...] materials from doctor or pharmacy Never 05/13/2024 [facility] Utilities Answer Date Recorded In the past [...] often do you attend chur ch or jew services? Never 03/02/2024 Do you belong to any clubs o r organizations such as scientology groups, unions, fraternal or athletic groups, or [...] any time in the past 12 [facility], were you homeless or living in a senior care (including now)? No 03/02/2024 Personal Safety Answer Date Recorded Have you ever been in or are you currently in a harmful physical or emotional relationship or is someone making you feel afraid or unsafe? Denies 02/29/2024 Sex and Gender Information Value Date Recorded Sex Assigned at Not on file Legal Sex Male 11:52 PM SOCIAL WORK FACULTY MEMBER Gender Identity Not on file Sexual Orientation Not on file documented as of this encounter Plan of Treatment Not on file documented as of this encounter Goals Goal Patient Goal Type Associated Problems Recent Progress Patient-Stated? Author -Pain Behavioral Health Improving(07/2019 1:15 PM SOCIAL WORK FACULTY MEMBER) No Rosenda Garrett, CAROLA Note: Patient would like to be able to eat and drink without pain. documented as of this encounter Visit Diagnoses Not on filedocumented in this encounter Care Teams Mechanical Product Design Engineer Relationship Specialty Start Date End Date Larry Hinojosa MD [address] [facility] [place] [address] PCP - General Internal Medicine 05/31/22 Robbin Willis MD PhD [address] [place] [address] Consulting Physician Radiation Oncology 01/24/17 Noelle Rowland, FISH BAILER Speech Language Pathologist Speech Therapy 01/31/17 Jessica Knight, RN Registered Nurse 06/14/17 Kimberlee Damon, CAROLA Registered Nurse Pain Management 06/28/17 Malvin Lopez MD Consulting Physician Urology 08/17/20 Lloyd Sykes MD Consulting Physician Gastroenterology 08/21/20 Charlene Gomez DO [address] [facility] [address] [address] Consulting Physician Otolaryngology 05/31/22 Larry Hinojosa MD [address] [facility] [address] [place] [address] Referring Physician Internal Medicine 08/20/22 Miscellaneous, Not In File 01/31/24 Shakeel Thakkar MD [address] [facility] [address] [place] [address] Consulting Physician Pulmonary Disease 01/31/24 documented as of this encounter
[2025-01-21 01:37] LABS: Fractional Inspired Oxygen 24 %; HCO3 VBG 30.2 mEq/l (24.0-30.0); PCO2 VBG 48.9 mmHg (42.0-48.0)
[2025-01-21 01:39] LABS: INR 1.0; PO2 VBG < 27.0 mmHg (35.0-45.0); Prothrombin Time 13.5 Seconds (11.1-14.7); pH VBG 7.409 (7.300-7.400)
[2025-01-21 01:47] LABS: Alanine Aminotransferase 15 U/L (6-50); Albumin Level 4.2 g/dL (3.5-5.1); Alkaline Phosphatase 88 U/L (38-126); Anion Gap 6 mmol/L (4-12); Aspartate Amino Transferase 22 U/L (17-59); Bilirubin,Total 0.5 mg/dL (0.2-1.3); Blood Urea Nitrogen 35 mg/dL (9-20); Calcium 9.3 mg/dL (8.4-10.2); Carbon Dioxide 30 mmol/L (22-30); Chloride 102 mmol/L (98-107); Creatine Kinase 40 U/L (55-170); Estimated CRCL calculation 80 ml/min; Estimated Glomerular Filt Rate > 60; Glucose 104 mg/dL (65-110); Lipase 36 U/L (23-300); Magnesium 2.3 mg/dL (1.6-2.3); Potassium 4.5 mmol/L (3.4-5.0); Sodium 138 mmol/L (137-145); Total Protein 7.7 g/dL (6.3-8.2)
[2025-01-21 01:49] LABS: Partial Thromboplastin Time 35.7 Seconds (22.3-36.8)
[2025-01-21 01:51] LABS: NT Pro B Type Natriuretic Pept 176 pg/mL (19.9-100); Troponin I < 0.012 ng/mL (0.000-0.034)
[2025-01-21] MEDS: IPRATROPIUM 0.5 MG/ALBUTEROL SULFATE 2.5 MG (BASE) AMPUL.NEB 3 ML INHALATION ×4 (01:52→22:23)
[2025-01-21] MEDS: SODIUM CHLORIDE 0.9% IV 1,000 ML 999 ML IV CONT ×3 (01:52→04:55)
[2025-01-21] MEDS: cefTRIAXone 1 GM in SODIUM CHLORIDE 0.9% IV 50 ML 100 ML IVPB (01:53)
[2025-01-21] MEDS: AZITHROMYCIN IV 500 MG in SODIUM CHLORIDE 0.9% IV 250 ML IVPB (01:55)
[2025-01-21 01:56] LABS: Procalcitonin 0.2 ng/mL
[2025-01-21] MEDS: ACETAMINOPHEN 650 MG SUPPOSITORY RECTAL (01:57)
[2025-01-21 02:18] LABS: Influenza A QL RT-PCR Negative (Negative); Influenza B QL RT-PCR Negative (Negative); RSV RNA, RT-PCR Negative (Negative); SARS-CoV-2 RNA PCR Negative (Negative)
[2025-01-21 02:18] LABS: Thyroid Stimulating Hormone Reflex 7.260 uIU/mL (0.465-4.68)
[2025-01-21 02:47] LABS: CRP 16.0 mg/dL (<1.0)
[2025-01-21 03:21] LABS: Add Urine Microscopic? YES; Appearance Urine Clear (Clear); Glucose Urine UA Negative (Negative); Leukocyte Esterase Ur Negative LEU/UL (Negative); Nitrate Urine Negative (Negative); Non Pathogenic Casts 0-2; Specific Grav Ur > 1.045 (1.001-1.035)
[2025-01-21] MEDS: KETOROLAC 15 MG/ML VIAL (*BKC) IV PUSH (03:44)
--- NOTE | 2025-01-21 04:48 | ECG_ITS ---
Test Date: 2025-01-21 04:56:41 Measurements Intervals [place] Rate: 88 P: 60 LA: 143 QRS: -55 QRSD: 104 T: 31 QT: 358 QTc: 435 Interpretive Statements SINUS RHYTHM LEFT ANTERIOR FASCICULAR BLOCK CANNOT R/O SEPTAL INFARCT, AGE INDETERMINATE BASELINE ARTIFACT- I, III, AVR, AVL ABNORMAL ECG Compared to ECG 01/21/2025 01:17:01 Left anterior fascicular block now present Electronically Signed On 01-21-2025 06:21:13 CASINO CAGE SUPERVISOR by West Ortiz D.O.
[2025-01-21] MEDS: levoFLOXacin 750 MG/D5W 150 ML 750 MG/150 ML BAG 100 MG IVPB (04:58)
[2025-01-21] MEDS: SODIUM CHLORIDE 0.9% IV 1,000 ML 125 ML IV CONT (05:00)
[2025-01-21 05:16] LABS: Troponin I 0.012 ng/mL (0.000-0.034)
[2025-01-21 05:18] LABS: Free T4 Free Thyroxine Reflex 0.80 ng/dL (0.78-2.19)
--- NOTE | 2025-01-21 05:20 | WPCEDHO ---
ED Hand Off Checklist All vitals saved:yes IV Site documented:yes All med administrations documented:yes Triage Note Triage Note Pt to the Ed with C/O of fever 01/21/25 00:57 and increased weakness after calling the fire department for a lift assist Pt was noted to have a fever and some increased weakness over the past couple of days. 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 Pt states he also slipped and fell but denies head trauma. pt states he fell onto his butt. A and O 4. Allergies No Known Allergies Allergy (Verified 12/06/24 17:05) Family History (Last Reviewed 12/06/24 @ 01:53 by Donald Montano MD) Mother Colon cancer Active Medications including assessments/comments Levofloxacin/Dextrose (Levaquin 750 Mg/D5w 150 Ml) 750 mg in 150 mls @ 100 mls/hr IVPB ONCE STA Stop: 01/21/25 05:49 Last Admin: 01/21/25 04:58 Dose: 100 mls/hr Documented By: AL Infusion/Titration Document 01/21/25 04:58 AL (Rec: 01/21/25 04:58 SALO [id number]) Intake IV Site Right Antecubital Container Volume 150 Waste Amount 0 Dosing Infusion Rate 100 Increase/Decrease Started Elapsed Time Elapsed Time ( 0m minutes) Sodium Chloride (Normal Saline Iv) 1,000 mls @ 125 mls/hr IV CONT .Q8H GELA Last Admin: 01/21/25 05:00 Dose: 125 mls/hr Documented By: AL Infusion/Titration Document 01/21/25 05:00 AL (Rec: 01/21/25 05:00 [facility] [id number]) Intake IV Site Right Antecubital Container Volume 1,000 Waste Amount 0 Dosing Infusion Rate 125 Cumulative Dose Not Applicable Increase/Decrease Started Elapsed Time Elapsed Time ( 0m minutes) Administered/Completed Medications Discontinued Medications Acetaminophen (Acetaminophen 650 Mg Suppository) 650 mg RECTAL ONCE STA Stop: 01/21/25 01:12 Last Admin: 01/21/25 01:57 Dose: 650 mg Documented By: AL Albuterol/Ipratropium (Ipratropium 0.5 Mg/Albuterol Sulfate 2.5 Mg (Base) Ampul.Neb 3 Ml) 3 ml INHALATION ONCE STA Stop: 01/21/25 01:45 Last Admin: 01/21/25 01:52 Dose: 3 ml Documented By: RODERICK Ceftriaxone Sodium 1 gm/ (Sodium Chloride) 50 mls @ 100 mls/hr IVPB ONCE STA Stop: 01/21/25 01:40 Last Infusion: 01/21/25 03:00 Dose: Infused Documented By: Admin: 01/21/25 01:53 Dose: 100 mls/hr Documented By: AL Azithromycin 500 mg/ Sodium (Chloride) 250 mls @ 250 mls/hr IVPB ONCE STA Stop: 01/21/25 02:10 Last Infusion: 01/21/25 03:30 Dose: Infused Documented By: Admin: 01/21/25 01:55 Dose: 250 mls/hr Documented By: AL Sodium Chloride (Normal Saline Iv) 1,000 mls @ 999 mls/hr IV CONT .Q1H1M STA Stop: 01/21/25 02:17 Last Infusion: 01/21/25 05:03 Dose: Infused Documented By: Admin: 01/21/25 01:52 Dose: 999 mls/hr Documented By: AL Sodium Chloride (Normal Saline Iv) 1,000 mls @ 999 mls/hr IV CONT .Q1H1M STA Stop: 01/21/25 02:17 Last Infusion: 01/21/25 05:03 Dose: Infused Documented By: Admin: 01/21/25 01:54 Dose: 999 mls/hr Documented By: AL Sodium Chloride (Normal Saline Iv) 1,000 mls @ 999 mls/hr IV CONT .Q1H1M STA Stop: 01/21/25 05:20 Last Admin: 01/21/25 04:55 Dose: 999 mls/hr Documented By: AL Ketorolac Tromethamine (Ketorolac 15 Mg/Ml Vial (*Bkc)) 15 mg IV PUSH ONCE STA Stop: 01/21/25 03:16 Last Admin: 01/21/25 03:44 Dose: 15 mg Documented By: AL Interventions/Assessments General Assessment Start: 01/21/25 00:54 Freq: Status: Active Protocol: Document 01/21/25 00:57 AL (Rec: 01/21/25 01:15 AL [id number]) GA Neurological Assessment Neurological Yes Assessment WNL GA HEENT Assessment HEENT Assessment WNL Yes GA Cardiovascular Assessment Cardiovascular Yes Assessment WNL GA Respiratory Assessment Symptoms Congestion,Cough,Difficulty Clearing Secretions, Shortness of Breath With Exertion Respiratory Rate (12 14 -20) Effort Normal Pattern Regular Depth Normal Chest Expansion Symmetrical Cough Description Loose,Non-Productive Cough Frequency Continuous Sputum Amount None GA Gastrointestinal Assessment Gastrointestinal Yes Assessment WNL GA Genitourinary Assessment Genitourinary WNL Parameters IV / Saline Lock, Insert Start: 01/21/25 00:54 Freq: Status: Active Protocol: Document 01/21/25 01:16 LLG (Rec: 01/21/25 01:16 LLG [id number]) IV Assessment Peripheral Access Left Forearm IV Catheter Access Initiated Before Arrival Catheter Gauge 20 IV Insertion 1 Attempts IV Site Assessment WNL IV Care and WNL Maintenance Right Antecubital IV Catheter Access Initiated IV Insertion Date 01/21/25 IV Insertion Time 01:16 Catheter Gauge 18 IV Insertion 1 Attempts IV Site Assessment WNL IV Care and WNL Maintenance PA: Cardiovascular Assessment Start: 01/21/25 00:54 Freq: Status: Active Protocol: Document 01/21/25 00:57 LLG (Rec: 01/21/25 01:15 LLG [id number]) Cardiovascular Assessment Cardiovascular Dyspnea Symptoms Skin Description Normal Color Heart Sounds Normal Jugular Vein None Distention PA: Neurological Assessment Start: 01/21/25 00:54 Freq: Status: Active Protocol: Document 01/21/25 00:57 LLG (Rec: 01/21/25 01:15 LLG [id number]) [place] Coma Scale Eyes Open Verbal Oriented and Alert Motor Follows Commands [place] Coma Total 15 Score Neurological Assessment Level of Alert,Awake Consciousness Arousable to Verbal Orientation Oriented to Person,Oriented to Place,Oriented to Time Neurological None Symptoms Ability to Maintain Unable to Assess Balance Facial Symmetry Symmetrical Last Vital Signs Temperature 101 F H 01/21/25 03:31 Pulse Rate 87 01/21/25 05:06 Respiratory Rate 22 H 01/21/25 05:06 Pulse Oximetry 95 01/21/25 05:06 Blood Pressure 117/77 01/21/25 04:15 Blood Pressure Mean 88 01/21/25 04:15 Oxygen Delivery Room Air 01/21/25 00:57 Weight 68.2 kg 01/21/25 00:57 Last Result - Abnormals Only WBC 10.2 K/mm3 (4.5-10.0) H 01/21/25 01:19 RBC 3.95 M/mm3 (4.6-6.20) L 01/21/25 01:19 Hgb 12.8 g/dL (14.0-18.0) L 01/21/25 01:19 Hct 39.5 % (42.0-52.0) L 01/21/25 01:19 MPV 13.0 fl (7.4-10.4) H 01/21/25 01:19 Neut % (Auto) 87.3 % (45.5-73.1) H 01/21/25 01:19 Lymph % (Auto) 5.0 % (18.3-44.2) L 01/21/25 01:19 Lymph # (Auto) 0.51 K/mm3 (0.9-3.2) L 01/21/25 01:19 [place] # (Auto) 0.7 K/mm3 (0.1-0.6) H 01/21/25 01:19 Abs Immat Gran (auto) 0.04 K/mm3 (0.00-0.031) H 01/21/25 01:19 Absolute Neuts (auto) 8.9 K/mm3 (1.3-6.7) H 01/21/25 01:19 ESR 59 mm/hr (0-20) H 01/21/25 01:18 VBG pH 7.409 (7.300-7.400) H* 01/21/25 01:18 VBG pCO2 48.9 mmHg (42.0-48.0) H 01/21/25 01:18 VBG pO2 < 27.0 mmHg (35.0-45.0) L 01/21/25 01:18 VBG HCO3 30.2 mEq/l (24.0-30.0) H 01/21/25 01:18 BUN 35 mg/dL (9-20) H D 01/21/25 01:18 Total Creatine Kinase 40 U/L (55-170) L 01/21/25 01:18 C-Reactive Protein 16.0 mg/dL (<1.0) H 01/21/25 01:18 NT-Pro-B Natriuret Pep 176 pg/mL (19.9-100) H 01/21/25 01:18 TSH (Reflex) 7.260 uIU/mL (0.465-4.68) H 01/21/25 01:19 Ur Specific [place] > 1.045 (1.001-1.035) H 01/21/25 02:57 Urine Protein 1+ mg/dL (Negative) H 01/21/25 02:57 Most Recent Suicide Severity Rating Suicide Severity Rating NO RISK INDICATED 01/21/25 00:57
[2025-01-21 05:33] LABS: Total Triiodothyronine (T3) 0.96 NG/ML (0.82-1.58)
[2025-01-21] MEDS: metroNIDAZOLE 500 MG/ISO 100ML 500 MG/100 ML BAG 100 MG IVPB ×3 (06:38→20:57)
--- NOTE | 2025-01-21 07:46 | WNDPHOTO ---
PHOTO ONLY - See Nursing Notes and/ or assessments for documentation.
[2025-01-21] MEDS: SODIUM CHLORIDE 0.9% 3 ML NEB FOR INHALATION INHALATION ×2 (08:35→15:13)
[2025-01-21 09:19] LABS: Troponin I 0.012 ng/mL (0.000-0.034)
--- NOTE | 2025-01-21 11:46 | P.HP_ITS ---
H&P: HPI History of Present Illness Date/Time: 01/21/25 11:46 Chief Complaint: fall fever Narrative: 69-year-old male presents to the emergency department by EMS with fall. He was noted to have a fever. Patient was brought to the hospital. Denies sob, chest pain, does have lot of congestion in chest/throat.He has completed antibiotic recently.Patient is GJ tube dependent. Takes tube feeds through it. Does not use O2 support at home on regular basis.CT chest shows pneumonia involving right middle and lower lobes, material in bronchi B/L consistent with aspiration vs mucus plugging. No PE. Admitted for further management. Review of Systems Review of Systems: All systems reviewed & are unremarkable except as noted in HPI and below PMFSH Past Medical History Medical History Primary squamous cell carcinoma of head and neck (~2013) Insomnia Radiation-induced brachial plexopathy Dysarthria Dysphonia Dysphagia History of aspiration pneumonia Constipation Malfunction of gastrostomy tube Gastrostomy tube dependent Spina bifida as a child with surgery; residual 'bladder issues' Cervical spine disease History of throat cancer XRT and surgery GERD (gastroesophageal reflux disease) Hypothyroid Surgical History Surgical History History of throat surgery PEG (percutaneous endoscopic gastrostomy) status History of ear, nose, and throat (ENT) surgery Family History Family History Mother Colon cancer Social History Social History Social History: Lives at home with . Never smoked. No alcohol and drug use. Code status: Full code. Surrogate decision maker: Smoking status: Never smoker Second hand tobacco smoke exposure: No Alcohol intake: never Substance use: never Substance use type: does not use Lack of Transportation: No Lack of Food: Never True Current Housing: I Have Housing Concerned About Future Housing: No Difficulty Paying Gas/Electric Bills: No Difficulty Paying for Meds: No Currently Unemployed: No Education: Bachelor's Degree Difficulty w/ Childcare or Family Care: No Living arrangements: with family Gender identity (if verbalized by the patient): Male Sexual Orientation (if Verbalized by the Patient): Straight or Heterosexual Spiritual care concerns: No Agree to blood products: Yes Meds Home Medications and Allergies Home Medications ?Medication ?Instructions ?Recorded ?Confirmed ?Type finasteride 5 mg tablet (Proscar) 5 mg feeding tube HS 03/05/22 01/21/25 History diazepam 10 mg tablet (Valium) 20 mg feeding tube HS 0 05/19/22 01/21/25 History ondansetron HCl 4 mg tablet 4 mg feeding tube Q4H PRN nausea 05/19/22 01/21/25 History and [id number] zolpidem 5 mg tablet 5 mg feeding tube HS 01/14/ 4 01/21/25 History albuterol sulfate 2.5 mg/3 mL 2.5 mg inhalation HS wendy rtness of 12/06/24 01/21/25 History (0.083 %) solution for nebulization breath or wheezing Allergies Allergy/AdvReac Type Severity Reaction Status Date / Time No Known Allergies Allergy Verified 01/21/25 06:21 Vital Signs Vital Signs - 24 hr 01/21/25 00:57 01/21/25 00:57 01/21/25 01:52 Temperature 100.7 F H Pulse Rate 96 95 Respiratory Rate 14 19 23 H Blood Pressure 157/123 H Pulse Oximetry 96 Oxygen Delivery Room Air Fraction of Inspired Oxygen 01/21/25 01:59 01/21/25 03:13 01/21/25 03:31 Temperature 101 F H 101 F H Pulse Rate 93 101 H Respiratory Rate 24 H 20 Blood Pressure 146/89 H Pulse Oximetry 99 Oxygen Delivery Fraction of Inspired Oxygen 01/21/25 03:43 01/21/25 04:01 01/21/25 04:15 Temperature Pulse Rate 97 100 101 H Respiratory Rate 26 H 20 31 H Blood Pressure 117/77 Pulse Oximetry 91 Oxygen Delivery Fraction of Inspired Oxygen 01/21/25 04:24 01/21/25 04:32 01/21/25 04:46 Temperature Pulse Rate 96 97 91 Respiratory Rate 22 H 21 H 24 H Blood Pressure Pulse Oximetry Oxygen Delivery Fraction of Inspired Oxygen 01/21/25 05:06 01/21/25 06:38 01/21/25 07:55 Temperature 97.9 F Pulse Rate 87 79 76 Respiratory Rate 22 H 18 20 Blood Pressure 100/62 Pulse Oximetry 95 93 93 Oxygen Delivery Room Air Fraction of Inspired Oxygen 21 01/21/25 07:55 01/21/25 08:00 01/21/25 08:00 Temperature Pulse Rate 76 75 Respiratory Rate 20 Blood Pressure Pulse Oximetry 93 Oxygen Delivery Room Air Fraction of Inspired Oxygen Exam Narrative: CONST: No acute distress. HENMT: Head is normocephalic and atraumatic. Dry mucous membranes. EYES: No scleral icterus. RESP: Diffuse rhonchi. CARDIO: Regular rate. Regular rhythm. GI: Nondistended. No tenderness to palpation. Soft. Enteric tube in place, no surrounding erythema or discharge. : No CVA tenderness to palpation. SKIN: No rashes or lesions noted on exposed skin. Stage II sacral ulcer, no palpable fluctuance or crepitus. NEURO: Oriented x3. Speech is muffled which patient notes is chronic. EXTREM/MSK/BACK: No pedal edema. No focal extremity tenderness to palpation or palpable deformities. PSYCH: Normal affect. Results Labs Labs: Short CBC 01/21/25 Range/Units 01:19 WBC 10.2 H (4.5-10.0) K/mm3 Hgb 12.8 L (14.0-18.0) g/dL Hct 39.5 L (42.0-52.0) % Plt Count 163 (150-375) k/mm3 BMP 01/21/25 01:18 Sodium 138 Potassium 4.5 Chloride 102 Carbon Dioxide 30 BUN 35 H D Creatinine 0.70 Glucose 104 Calcium 9.3 Cardiac Enzymes 01/21/25 01/21/25 01/21/25 Range/Units 01:18 04:49 08:39 Total Creatine Kinase 40 L (55-170) U/L Troponin I < 0.012 0.012 0.012 (0.000-0.034) ng/mL Liver Function 01/21/25 Range/Units 01:18 Total Bilirubin 0.5 (0.2-1.3) mg/dL AST 22 (17-59) U/L ALT 15 (6-50) U/L Alkaline Phosphatase 88 (38-126) U/L Albumin 4.2 (3.5-5.1) g/dL Urine 01/21/25 Range/Units 02:57 Urine Color Yellow (Yellow) Urine Appearance Clear (Clear) Urine pH 8.5 (5.0-9.0) Ur Specific [place] > 1.045 H (1.001-1.035) Urine Protein 1+ H (Negative) mg/dL Urine Glucose (UA) Negative (Negative) mg/dL Quality VTE Prophylaxis VTE prophylaxis: pharmacologic ordered Assessment and Plan Assessment and plan (1) Hypertension: Code(s): I10 - Essential (primary) hypertension Status: Acute (2) Aspiration into airway: Code(s): T17.908A - Unspecified foreign body in respiratory tract, part unspecified causing other injury, initial encounter Status: Acute (3) Mucus plugging of bronchi: Code(s): T17.500A - Unspecified foreign body in bronchus causing asphyxiation, initial encounter Status: Acute (4) Community acquired pneumonia: Code(s): J18.9 - Pneumonia, unspecified organism Status: Acute (5) Pneumonia: Code(s): J18.9 - Pneumonia, unspecified organism Status: Acute Plan 69-year-old male presents to the emergency department by EMS with fall. He was noted to have a fever.Was found to have PNA in right middle/lower lobe. 1.Community Acquired PNA/Aspiration PNA: Admit to medicine service Obtain Blood culture, sputum culture Obtain urine strep and legionella antigen O2 support as needed, currently on RA Continue with azithromycin, levofloxacin, Flagyl DuoNebs Chest PT Pulmonary consult 2. GJ tube dependent: Nutrition consult Will resume tube feed at home regimen 3. DVT prophylaxis: Heparin subQ 4. Sacral wound: Present on admission Wound Care consult 5. Disposition: Admit to medicine service Time Spent with Patient Time with patient: 45 - 74 minutes Hospitalist MIPS Advance Care Plan I have confirmed that the patient's Advanced Care Plan is present, code status is documented, or surrogate decision maker is listed in patient medical record.: Yes Medication Reconciliation I have utilized all available resources to obtain, update and review the patients current medications (includes all prescriptions, OTC, herbals, cannabis, and nutritional supplements).: Yes
[2025-01-21] MEDS: SODIUM CHLORIDE 0.9% IV 1,000 ML 75 ML IV CONT (13:35)
--- NOTE | 2025-01-21 14:27 | P.CDI_ITS ---
CDI Query Clarification Request BMI: 19.0 Nutritional Diagnostic Statement: Please refer to the comprehensive nutrition assessment for further information. If you agree with diagnosis of Severe Protein Calorie Malnutrition as related to increased protein energy needs in setting of chronic disease (cancer and wounds) as evidenced by pressure ulcer III to sacrum; severe muscle wasting temporalis/clavicle) and subcutaneous fat loss (orbital fat pads). Please specify severity if known: * Mild * Moderate * Severe * Other/Unknown <Lana Godfrey RN - Last Filed: 01/21/25 14:29> Clarified Diagnosis Clarified Diagnosis: severe protein calorie malnutrition <Hellen Medina MD - Last Filed: 01/21/25 14:35>
[2025-01-21] MEDS: ONDANSETRON HCL ODT 4 MG TABLET XX (15:29)
[2025-01-21] MEDS: diazePAM (*CRX) 10 MG TABLET 20 MG FEED TUBE (20:56)
[2025-01-21] MEDS: FINASTERIDE 5 MG TABLET FEED TUBE (20:57)
[2025-01-21] MEDS: ZOLPIDEM TARTRATE (*CRX) 5 MG TABLET FEED TUBE (20:57)
[2025-01-22] VITALS (15 sets, daily range): BP systolic 133–158; BP diastolic 78–100; PULSE 81–99; RESP 16–26; TEMP 36.5–37; O2SAT 93–99
[2025-01-22] MEDS: SODIUM CHLORIDE 0.9% IV 1,000 ML 75 ML IV CONT (03:23)
[2025-01-22 05:03] LABS: Hematocrit 36.7 % (42.0-52.0); Hemoglobin 11.8 g/dL (14.0-18.0); Immature Granulocyte Percent A 0.3 % (0-0.5); Lymphocytes Absolute Auto 0.57 K/mm3 (0.9-3.2); Mean Corpuscular HGB Conc 32.2 g/dl (32-36); Mean Corpuscular Hemoglobin 32.2 pg (26-34); Mean Corpuscular Volume 100.0 fl (80-100); Nucleated Red Blood Cells Absolute Auto 0.000 K/mm3 (0.0-0.012); Nucleated Red Blood Cells Perc 0.0 % (0.0-0.2); Platelet Count Result 156 k/mm3 (150-375); Red Blood Count 3.67 M/mm3 (4.6-6.20); White Blood Count 6.5 K/mm3 (4.5-10.0)
[2025-01-22 05:31] LABS: Anion Gap 3 mmol/L (4-12); Blood Urea Nitrogen 26 mg/dL (9-20); Calcium 8.1 mg/dL (8.4-10.2); Carbon Dioxide 26 mmol/L (22-30); Chloride 107 mmol/L (98-107); Creatine Kinase 37 U/L (55-170); Estimated CRCL calculation 95 ml/min; Estimated Glomerular Filt Rate > 60; Glucose 113 mg/dL (65-110); Magnesium 1.9 mg/dL (1.6-2.3); Potassium 4.2 mmol/L (3.4-5.0); Sodium 136 mmol/L (137-145)
[2025-01-22] MEDS: metroNIDAZOLE 500 MG/ISO 100ML 500 MG/100 ML BAG 100 MG IVPB ×3 (05:32→22:00)
[2025-01-22] MEDS: levoFLOXacin 750 MG/D5W 150 ML 750 MG/150 ML BAG 100 MG IVPB (05:32)
[2025-01-22] MEDS: IPRATROPIUM 0.5 MG/ALBUTEROL SULFATE 2.5 MG (BASE) AMPUL.NEB 3 ML INHALATION ×4 (07:07→20:08)
--- NOTE | 2025-01-22 11:13 | PM.IMPN2 ---
Assessment and Plan Assessment and Plan (1) Community acquired pneumonia: Code(s): J18.9 - Pneumonia, unspecified organism Status: Acute (2) Mucus plugging of bronchi: Code(s): T17.500A - Unspecified foreign body in bronchus causing asphyxiation, initial encounter Status: Acute (3) Acute hypoxic respiratory failure: Code(s): J96.01 - Acute respiratory failure with hypoxia Status: Acute Plan 69-year-old male presents to the emergency department by EMS with fall. He was noted to have a fever.Was found to have PNA in right middle/lower lobe. 1.Community Acquired PNA/Aspiration PNA/acute hypoxic respiratory failure: Follow-up Blood culture, sputum culture Follow-up urine strep and legionella antigen Currently on 4L Continue with azithromycin, levofloxacin, Flagyl DuoNebs Chest PT Pulmonary consult 2. GJ tube dependent: Nutrition consult Will resume tube feed at home regimen Chronic severe protein calorie malnutrition 3. DVT prophylaxis: Heparin subQ 4. Sacral wound: Present on admission Wound Care consult 5. Code status: Full 6. Disposition: Pending improvement Time Spent With Patient Time with patient: 25 - 35 minutes Subjective Date/time seen: 01/22/25 11:13 Interval history: Continues to have chest congestion Review of Systems Review of Systems: All systems reviewed & are unremarkable except as noted in HPI and below Exam Narrative: CONST: No acute distress. HENMT: Head is normocephalic and atraumatic. Dry mucous membranes. EYES: No scleral icterus. RESP: Diffuse rhonchi. CARDIO: Regular rate. Regular rhythm. GI: Nondistended. No tenderness to palpation. Soft. Enteric tube in place, no surrounding erythema or discharge. : No CVA tenderness to palpation. SKIN: No rashes or lesions noted on exposed skin. Stage II sacral ulcer, no palpable fluctuance or crepitus. NEURO: Oriented x3. Speech is muffled which patient notes is chronic. EXTREM/MSK/BACK: No pedal edema. No focal extremity tenderness to palpation or palpable deformities. PSYCH: Normal affect. Objective Data Vital Signs Vital Signs: Vital Signs - 24 hr 01/21/25 12:00 01/21/25 14:00 01/21/25 15:13 Temperature 98.7 F Pulse Rate 82 84 76 Respiratory Rate 16 20 Blood Pressure 141/87 H Pulse Oximetry 92 Oxygen Delivery Oxygen Flow Rate Fraction of Inspired Oxygen 01/21/25 16:00 01/21/25 20:50 01/21/25 21:58 Temperature 98.1 F Pulse Rate 92 81 81 Respiratory Rate 18 Blood Pressure 133/76 Pulse Oximetry 93 Oxygen Delivery Oxygen Flow Rate Fraction of Inspired Oxygen 01/21/25 22:23 01/21/25 22:25 01/21/25 22:32 Temperature Pulse Rate 75 78 Respiratory Rate 20 20 Blood Pressure Pulse Oximetry 93 Oxygen Delivery Room Air Oxygen Flow Rate Fraction of Inspired Oxygen 21 01/22/25 00:00 01/22/25 04:00 01/22/25 06:00 Temperature 98.6 F Pulse Rate 99 99 94 Respiratory Rate 16 Blood Pressure 133/78 Pulse Oximetry 93 Oxygen Delivery Oxygen Flow Rate Fraction of Inspired Oxygen 01/22/25 07:09 01/22/25 07:09 01/22/25 07:21 Temperature Pulse Rate 88 88 Respiratory Rate 16 16 Blood Pressure Pulse Oximetry 93 Oxygen Delivery Nasal Cannula Oxygen Flow Rate 4 Fraction of Inspired Oxygen Intake/Output Intake/Output: Intake & Output 01/19/25 01/20/25 01/21/25 01/22/25 23:59 23:59 23:59 23:59 Intake Total 3600 2124 Output Total 200 Balance 3400 2124 Meds/Results Medications: Active Medications Generic Name Dose Route Start Last Admin Trade Name Freq PRN Reason Stop Dose Admin Acetaminophen 650 mg 01/21/25 04:22 Acetaminophen 650 Mg Suppository RECTAL Q6H PRN Mild Pain (1-3) or Fever Albuterol/Ipratropium 3 ml 01/21/25 08:00 01/22/25 07:07 Ipratropium 0.5 Mg/Albuterol Sulfate 2.5 Mg (Base) Ampul.Neb 3 Ml INHALATION 3 ml Q6HRT GELA Administration Diazepam 20 mg 01/21/25 21:00 01/21/25 20:56 Diazepam (*Crx) 10 Mg Tablet FEED TUBE 20 mg HS GELA Administration Finasteride 5 mg 01/21/25 21:00 01/21/25 20:57 Finasteride 5 Mg Tablet FEED TUBE 5 mg HS GELA Administration Heparin Sodium (Porcine) 5,000 units 01/21/25 14:00 01/22/25 05:32 Heparin Sodium 5,000 Units/Ml Vial SUB-Q 5,000 units Q8HR GELA Administration Levofloxacin/Dextrose 750 mg in 150 mls @ 100 mls/hr 01/22/25 05:00 01/22/25 09:18 Levaquin 750 Mg/D5w 150 Ml IVPB Infused Q24H GELA Infusion Metronidazole 500 mg in 100 mls @ 100 mls/hr 01/21/25 06:00 01/22/25 09:17 Flagyl 500 Mg/Iso Soln 100 Ml IVPB Infused Q8H GELA Infusion Ondansetron HCl 4 mg 01/21/25 16:15 Ondansetron Hcl Odt 4 Mg Tablet XX Q4H PRN Nausea And Vomiting Sodium Chloride 3 ml 01/21/25 20:00 01/22/25 07:41 Sodium Chloride 0.9% 3 Ml Neb For Inhalation INHALATION Not Given TIDRT [facility] Zolpidem Tartrate 5 mg 01/21/25 21:00 01/21/25 20:57 Zolpidem Tartrate (*Crx) 5 Mg Tablet FEED TUBE 5 mg HS GELA Administration Radiology Results: ITS Impressions Cervical Spine CT 01/21/25 06:13 IMPRESSION: HEAD: 1. No acute intracranial findings. C-SPINE: 1. No acute fracture. Head CT 01/21/25 06:13 IMPRESSION: HEAD: 1. No acute intracranial findings. C-SPINE: 1. No acute fracture. Chest/Abdomen/Pelvis CTA 01/21/25 06:38 IMPRESSION: 1. Pneumonia involving the right middle lobe and lower lobes. 2. Material in bronchi bilaterally, consistent with aspiration versus mucous plugging. 3. No pulmonary embolus. Chest X-Ray 01/21/25 07:01 IMPRESSION: 1. Mild worsening of acute on bibasilar chronic airspace disease. Labs Labs: Laboratory Results - last 24 hr 01/22/25 04:49 WBC 6.5 RBC 3.67 L Hgb 11.8 L Hct 36.7 L MCV 100.0 MCH 32.2 MCHC 32.2 RDW 12.7 Plt Count 156 MPV 12.7 H Immature Gran % (Auto) 0.3 Neut % (Auto) 79.7 H Lymph % (Auto) 8.8 L [place] % (Auto) 8.0 Eos % (Auto) 2.6 Baso % (Auto) 0.6 Lymph # (Auto) 0.57 L [place] # (Auto) 0.5 Eos # (Auto) 0.2 Baso # (Auto) 0.0 Abs Immat Gran (auto) 0.02 Absolute Neuts (auto) 5.2 Absolute Nucleated RBC 0.000 Nucleated RBC % 0.0 Sodium 136 L Potassium 4.2 Chloride 107 Carbon Dioxide 26 Anion Gap 3 L BUN 26 H Creatinine 0.54 L Estim Creat Clear Calc 95 Estimated GFR > 60 Glucose 113 H Calcium 8.1 L Magnesium 1.9 Total Creatine Kinase 37 L Quality VTE Prophylaxis VTE prophylaxis: pharmacologic ordered
--- NOTE | 2025-01-22 13:17 | PCNFU ---
Nutrition Follow-Up Complete: Severe Protein Calorie Malnutrition as related to increased protein energy needs in setting of chronic disease (cancer and wounds) as evidenced by pressure ulcer III to sacrum; severe muscle wasting temporalis/clavicle) and subcutaneous fat loss (orbital fat pads). Goal:Meet estimated nutritional needs Pt current nutrition is Home tube feeding: Compleat Peptide 1.5 @ 79ml/hr = 2607kcals, 89g protein. KATIE BID for wound healing. Nutrition recommendation: continue with current plan of care Last recorded weight is 63.4 kg. Bowel Motility: +BM 01/20 Labs Reviewed:Hgb:11.8, HCt:36.7, Na:136, BUN:26, Cr:0.54, Glu:113 Meds Noted: flagyl Skin: Stage III to sacrum Additional Notes: Pt continues on his home tube feeding and regimen. Tolerating well. Agree with orders. Continue with current plan of care. Will monitor weight, labs, skin, diet orders, meds every Saturday and Saturday.
[2025-01-22] MEDS: SODIUM CHLORIDE 0.9% 3 ML NEB FOR INHALATION INHALATION ×3 (13:51→20:08)
[2025-01-22] MEDS: ZOLPIDEM TARTRATE (*CRX) 5 MG TABLET FEED TUBE (21:00)
[2025-01-22] MEDS: FINASTERIDE 5 MG TABLET FEED TUBE (21:00)
[2025-01-22] MEDS: diazePAM (*CRX) 10 MG TABLET 20 MG FEED TUBE (21:00)
[2025-01-23] VITALS (20 sets, daily range): BP systolic 100–138; BP diastolic 74–91; PULSE 79–90; RESP 16–20; TEMP 36.4–36.7; O2SAT 94–99
[2025-01-23] MEDS: IPRATROPIUM 0.5 MG/ALBUTEROL SULFATE 2.5 MG (BASE) AMPUL.NEB 3 ML INHALATION ×4 (01:59→19:56)
[2025-01-23] MEDS: levoFLOXacin 750 MG/D5W 150 ML 750 MG/150 ML BAG 100 MG IVPB (05:34)
[2025-01-23 05:38] LABS: Hematocrit 37.7 % (42.0-52.0); Hemoglobin 12.1 g/dL (14.0-18.0); Immature Granulocyte Percent A 0.3 % (0-0.5); Lymphocytes Absolute Auto 0.64 K/mm3 (0.9-3.2); Mean Corpuscular HGB Conc 32.1 g/dl (32-36); Mean Corpuscular Hemoglobin 31.6 pg (26-34); Mean Corpuscular Volume 98.4 fl (80-100); Nucleated Red Blood Cells Absolute Auto 0.000 K/mm3 (0.0-0.012); Nucleated Red Blood Cells Perc 0.0 % (0.0-0.2); Platelet Count Result 158 k/mm3 (150-375); Red Blood Count 3.83 M/mm3 (4.6-6.20); White Blood Count 6.0 K/mm3 (4.5-10.0)
[2025-01-23] MEDS: ONDANSETRON HCL ODT 4 MG TABLET XX ×2 (05:39→20:35)
[2025-01-23] MEDS: metroNIDAZOLE 500 MG/ISO 100ML 500 MG/100 ML BAG 100 MG IVPB ×3 (06:00→20:36)
[2025-01-23 06:09] LABS: Anion Gap 3 mmol/L (4-12); Blood Urea Nitrogen 21 mg/dL (9-20); Calcium 8.3 mg/dL (8.4-10.2); Carbon Dioxide 30 mmol/L (22-30); Chloride 100 mmol/L (98-107); Estimated CRCL calculation 80 ml/min; Estimated Glomerular Filt Rate > 60; Glucose 117 mg/dL (65-110); Magnesium 1.7 mg/dL (1.6-2.3); Potassium 4.8 mmol/L (3.4-5.0); Sodium 133 mmol/L (137-145)
[2025-01-23] MEDS: SODIUM CHLORIDE 0.9% 3 ML NEB FOR INHALATION INHALATION ×3 (08:04→19:56)
--- NOTE | 2025-01-23 12:51 | P.PNIM_ITS ---
Assessment and Plan Assessment and Plan (1) Community acquired pneumonia: Code(s): J18.9 - Pneumonia, unspecified organism Status: Acute Assessment and Plan: * possible aspiration * continue ceftriaxone and azithromycin (2) Acute hypoxic respiratory failure: Code(s): J96.01 - Acute respiratory failure with hypoxia Status: Acute Assessment and Plan: * wean oxygen as tolerated (3) Pressure ulcer: Code(s): L89.90 - Pressure ulcer of unspecified site, unspecified stage Status: Acute Assessment and Plan: * present at admission * frequent position changes (4) Gastrostomy tube dependent: Code(s): Z93.1 - Gastrostomy status Status: Acute Assessment and Plan: * continue tube feedings (5) History of throat cancer: Code(s): Z85.819 - Personal history of malignant neoplasm of unspecified site of lip, oral cavity, and pharynx Status: Acute Assessment and Plan: * no sign of recurrence per prior evaluations (6) Radiation-induced brachial plexopathy: Code(s): G54.0 - Brachial plexus disorders Status: Acute Assessment and Plan: * symptoms stable Subjective Date/time seen: 01/23/25 12:51 Interval history: [age]-year-old gentleman status post radiation therapy for head and neck cancer with chronic dysphagia and feeding tube dependent for the last 78 years was admitted January for due to fever and weakness and found to have a right middle lobe infiltrate. 01/23 tolerating tube feedings. Denied pain or shortness of breath. Denied GI or issues. No change in his chronic weakness. Chronic electrical sensations in arms have not changed. Review of Systems Review of Systems: All systems reviewed & are unremarkable except as noted in HPI and below Exam Narrative: HEENT: PERRL, sclerae nonicteric, pharyngeal mucosa pink and intact NECK: No JVD, Scarring bilateral neck CHEST: coarse breath sounds and rhonchi right lung, left lung clear HEART: NL S1/S2, regular, no murmur ABDOMEN: BS+, soft, nontender, no mass, no bruits, feeding tube site clean EXTREMITIES: No cyanosis, edema, or clubbing NEUROLOGIC: CN intact and symmetric to inspection, speech slurred but intelligible MUSCULOSKELETAL: Tone and strength symmetric PSYCH: Alert. Oriented to person, place, and time Objective Data Vital Signs Vital Signs: Vital Signs - 24 hr 01/22/25 13:56 01/22/25 14:00 01/22/25 14:09 Temperature 98.1 F Pulse Rate 84 81 84 Respiratory Rate 16 26 H 16 Blood Pressure 138/78 Pulse Oximetry 99 Oxygen Delivery Oxygen Flow Rate Fraction of Inspired Oxygen 01/22/25 16:00 01/22/25 19:50 01/22/25 20:00 Temperature Pulse Rate 88 86 Respiratory Rate 18 Blood Pressure Pulse Oximetry 93 Oxygen Delivery Nasal Cannula Oxygen Flow Rate 4 Fraction of Inspired Oxygen 01/22/25 20:00 01/22/25 20:00 01/22/25 20:00 Temperature Pulse Rate 84 82 82 Respiratory Rate 18 16 Blood Pressure Pulse Oximetry 98 Oxygen Delivery Nasal Cannula Oxygen Flow Rate 4 Fraction of Inspired Oxygen 21 01/22/25 20:03 01/22/25 20:30 01/23/25 00:00 Temperature 97.7 F Pulse Rate 85 84 82 Respiratory Rate 20 Blood Pressure 158/100 H Pulse Oximetry 98 Oxygen Delivery Oxygen Flow Rate Fraction of Inspired Oxygen 01/23/25 02:00 01/23/25 02:09 01/23/25 04:00 Temperature Pulse Rate 79 82 88 Respiratory Rate 16 16 Blood Pressure Pulse Oximetry Oxygen Delivery Oxygen Flow Rate Fraction of Inspired Oxygen 01/23/25 05:19 01/23/25 08:00 01/23/25 08:00 Temperature 97.5 F L Pulse Rate 80 83 Respiratory Rate 20 Blood Pressure 138/91 H Pulse Oximetry 96 95 Oxygen Delivery Nasal Cannula Oxygen Flow Rate 4 Fraction of Inspired Oxygen 21 01/23/25 08:05 01/23/25 08:05 01/23/25 08:23 Temperature Pulse Rate 84 85 Respiratory Rate 16 16 Blood Pressure Pulse Oximetry 96 Oxygen Delivery Nasal Cannula Oxygen Flow Rate 4 Fraction of Inspired Oxygen 01/23/25 09:55 01/23/25 10:29 01/23/25 12:00 Temperature Pulse Rate 85 Respiratory Rate Blood Pressure Pulse Oximetry 99 95 Oxygen Delivery Nasal Cannula Nasal Cannula Oxygen Flow Rate 4 2 Fraction of Inspired Oxygen Intake/Output Intake/Output: Intake & Output 01/20/25 01/21/25 01/22/25 01/23/25 23:59 23:59 23:59 23:59 Intake Total 3600 3594 250 Output Total 200 700 800 Balance 3400 2894 -550 Meds/Results Medications: Active Medications Generic Name Dose Route Start Last Admin Trade Name Melisa PRN Reason Stop Dose Admin Acetaminophen 650 mg 01/21/25 04:22 Acetaminophen 650 Mg Suppository RECTAL Q6H PRN Mild Pain (1-3) or Fever Albuterol/Ipratropium 3 ml 01/21/25 08:00 01/23/25 08:04 Ipratropium 0.5 Mg/Albuterol Sulfate 2.5 Mg (Base) Ampul.Neb 3 Ml INHALATION 3 ml Q6HRT GELA Administration Diazepam 20 mg 01/21/25 21:00 01/22/25 21:00 Diazepam (*Crx) 10 Mg Tablet FEED TUBE 20 mg HS GELA Administration Finasteride 5 mg 01/21/25 21:00 01/22/25 21:00 Finasteride 5 Mg Tablet FEED TUBE 5 mg HS GELA Administration Heparin Sodium (Porcine) 5,000 units 01/21/25 14:00 01/23/25 05:34 Heparin Sodium 5,000 Units/Ml Vial SUB-Q 5,000 units Q8HR GELA Administration Levofloxacin/Dextrose 750 mg in 150 mls @ 100 mls/hr 01/22/25 05:00 01/23/25 07:04 Levaquin 750 Mg/D5w 150 Ml IVPB Infused Q24H GELA Infusion Metronidazole 500 mg in 100 mls @ 100 mls/hr 01/21/25 06:00 01/23/25 07:00 Flagyl 500 Mg/Iso Soln 100 Ml IVPB Infused Q8H GELA Infusion Ondansetron HCl 4 mg 01/21/25 16:15 01/23/25 05:39 Ondansetron Hcl Odt 4 Mg Tablet XX 4 mg Q4H PRN Administration Nausea And Vomiting Sodium Chloride 3 ml 01/21/25 20:00 01/23/25 08:04 Sodium Chloride 0.9% 3 Ml Neb For Inhalation INHALATION 3 ml TIDRT GELA Administration Zolpidem Tartrate 5 mg 01/21/25 21:00 01/22/25 21:00 Zolpidem Tartrate (*Crx) 5 Mg Tablet FEED TUBE 5 mg HS GELA Administration Radiology Results: ITS Impressions Cervical Spine CT 01/21/25 06:13 IMPRESSION: HEAD: 1. No acute intracranial findings. C-SPINE: 1. No acute fracture. Head CT 01/21/25 06:13 IMPRESSION: HEAD: 1. No acute intracranial findings. C-SPINE: 1. No acute fracture. Chest/Abdomen/Pelvis CTA 01/21/25 06:38 IMPRESSION: 1. Pneumonia involving the right middle lobe and lower lobes. 2. Material in bronchi bilaterally, consistent with aspiration versus mucous plugging. 3. No pulmonary embolus. Chest X-Ray 01/21/25 07:01 IMPRESSION: 1. Mild worsening of acute on bibasilar chronic airspace disease. Labs Labs: Laboratory Results - last 24 hr 01/23/25 05:32 WBC 6.0 RBC 3.83 L Hgb 12.1 L Hct 37.7 L MCV 98.4 MCH 31.6 MCHC 32.1 RDW 12.4 Plt Count 158 MPV 12.0 H Immature Gran % (Auto) 0.3 Neut % (Auto) 74.5 H Lymph % (Auto) 10.6 L [place] % (Auto) 9.5 H Eos % (Auto) 4.6 H Baso % (Auto) 0.5 Lymph # (Auto) 0.64 L [place] # (Auto) 0.6 Eos # (Auto) 0.3 Baso # (Auto) 0.0 Abs Immat Gran (auto) 0.02 Absolute Neuts (auto) 4.5 Absolute Nucleated RBC 0.000 Nucleated RBC % 0.0 Sodium 133 L Potassium 4.8 Chloride 100 Carbon Dioxide 30 Anion Gap 3 L BUN 21 H Creatinine 0.65 L Estim Creat Clear Calc 80 Estimated GFR > 60 Glucose 117 H Calcium 8.3 L Magnesium 1.7
--- NOTE | 2025-01-23 14:26 | PC.NURSE ---
I, Alejandra Manrique RN, have reviewed documentation by Regina GILLETTE and agree with the findings. 01/23/25 0512.
[2025-01-23] MEDS: SODIUM CHLORIDE 0.9% IV 500 ML IV CONT (16:12)
[2025-01-23] MEDS: ZOLPIDEM TARTRATE (*CRX) 5 MG TABLET FEED TUBE (20:36)
[2025-01-23] MEDS: FINASTERIDE 5 MG TABLET FEED TUBE (20:36)
[2025-01-23] MEDS: diazePAM (*CRX) 10 MG TABLET 20 MG FEED TUBE (20:36)
--- NOTE | 2025-01-23 21:48 | PCRCNOTE ---
Pt does not want his 0200, states he would like to sleep. RN notified [facility]CS.
[2025-01-24] VITALS (9 sets, daily range): BP systolic 147–152; BP diastolic 87–96; PULSE 75–87; RESP 16–18; TEMP 36.2–36.6; O2SAT 92–100
--- NOTE | 2025-01-24 04:04 | PCRCNOTE ---
Patient asked to not be awakened for his 0200 updraft treatment. Treatment to resume at 0800.
[2025-01-24 04:54] LABS: Hematocrit 37.2 % (42.0-52.0); Hemoglobin 12.0 g/dL (14.0-18.0); Immature Granulocyte Percent A 0.2 % (0-0.5); Lymphocytes Absolute Auto 0.73 K/mm3 (0.9-3.2); Mean Corpuscular HGB Conc 32.3 g/dl (32-36); Mean Corpuscular Hemoglobin 31.6 pg (26-34); Mean Corpuscular Volume 97.9 fl (80-100); Nucleated Red Blood Cells Absolute Auto 0.000 K/mm3 (0.0-0.012); Nucleated Red Blood Cells Perc 0.0 % (0.0-0.2); Platelet Count Result 172 k/mm3 (150-375); Red Blood Count 3.80 M/mm3 (4.6-6.20); White Blood Count 4.3 K/mm3 (4.5-10.0)
[2025-01-24 05:20] LABS: Anion Gap 1 mmol/L (4-12); Blood Urea Nitrogen 21 mg/dL (9-20); Calcium 8.3 mg/dL (8.4-10.2); Carbon Dioxide 30 mmol/L (22-30); Chloride 103 mmol/L (98-107); Estimated CRCL calculation 82 ml/min; Estimated Glomerular Filt Rate > 60; Glucose 111 mg/dL (65-110); Magnesium 2.0 mg/dL (1.6-2.3); Potassium 4.2 mmol/L (3.4-5.0); Sodium 134 mmol/L (137-145)
[2025-01-24] MEDS: levoFLOXacin 750 MG/D5W 150 ML 750 MG/150 ML BAG 100 MG IVPB (06:41)
[2025-01-24] MEDS: SODIUM CHLORIDE 0.9% 3 ML NEB FOR INHALATION INHALATION (07:46)
[2025-01-24] MEDS: IPRATROPIUM 0.5 MG/ALBUTEROL SULFATE 2.5 MG (BASE) AMPUL.NEB 3 ML INHALATION (07:46)
[2025-01-24] MEDS: metroNIDAZOLE 500 MG/ISO 100ML 500 MG/100 ML BAG 100 MG IVPB ×2 (09:21→16:53)
--- NOTE | 2025-01-24 15:41 | PCRCNOTE ---
Window of time for administration has passed. See next scheduled administration.
--- NOTE | 2025-01-24 16:38 | P.DS_ITS ---
DS: Admitting Diagnosis Discharge Date 01/24/2025 Admitting Diagnosis Aspiration pneumonia DS: Discharge Diagnosis Discharge Diagnosis (1) Community acquired pneumonia: Code(s): J18.9 - Pneumonia, unspecified organism Status: Acute Assessment and Plan: * possible aspiration * initially given ceftriaxone and azithromycin 01/21, then switched 01/21 to levofloxacin and metronidazole, to complete 5 days through 01/25/2025 (2) Acute hypoxic respiratory failure: Code(s): J96.01 - Acute respiratory failure with hypoxia Status: Acute Assessment and Plan: * 01/24 on room air (3) Gastrostomy tube dependent: Code(s): Z93.1 - Gastrostomy status Status: Acute Assessment and Plan: * continue tube feedings * Compleat Peptide 1.5 79 mL/hr with 6 x 60 mL flushes per day (4) Pressure ulcer: Code(s): L89.90 - Pressure ulcer of unspecified site, unspecified stage Status: Acute Assessment and Plan: * present at admission * frequent position changes (5) History of throat cancer: Code(s): Z85.819 - Personal history of malignant neoplasm of unspecified site of lip, oral cavity, and pharynx Status: Acute Assessment and Plan: * no sign of recurrence per prior evaluations (6) Radiation-induced brachial plexopathy: Code(s): G54.0 - Brachial plexus disorders Status: Acute Assessment and Plan: * symptoms stable DS: Summary Hospital Course Hospital Course: On 01/21 was admitted via the emergency department due to fall fever and right lung infiltrate. Was treated initially with ceftriaxone and azithromycin and then switch the same day to level floxacillin and metronidazole. His tube feeding was continued. He was given p.r.n. DuoNeb treatments and tolerated these well. He uses concentrated saline with his albuterol at home. He has chronic excessive secretions and chronic issues with aspiration as to feeding dependent. His wants to try Delsym through the feeding to to see if that would help with secretion issue. By day of discharge she was feeling much stronger and able to ambulate to the commode. He was near his baseline strength and alertness and speech. He and his wish that he go home to finish his 5 days of antibiotics there. Throughout hospitalization he remained afebrile. White count at admission was 10,200. Labs on day of discharge showed a white count of 4300, hemoglobin 12.0, creatinine 0.63, platelet count 100508. Time Spent with Patient Time attestation: Total time spent providing and/or coordinating discharge services: Exam Narrative: HEENT: PERRL, sclerae nonicteric, pharyngeal mucosa pink and intact NECK: No JVD, Scarring bilateral neck CHEST: coarse breath sounds right lung, left lung clear HEART: NL S1/S2, regular, no murmur ABDOMEN: BS+, soft, nontender, no mass, no bruits, feeding tube site clean EXTREMITIES: No cyanosis, edema, or clubbing NEUROLOGIC: CN intact and symmetric to inspection, speech slurred but intelligible MUSCULOSKELETAL: Tone and strength symmetric PSYCH: Alert. Oriented to person, place, and time DS: Data Data Completed and Pending Labs on day of discharge: Labs from last 24 hours 01/24/25 04:41 WBC 4.3 L RBC 3.80 L Hgb 12.0 L Hct 37.2 L MCV 97.9 MCH 31.6 MCHC 32.3 RDW 12.5 Plt Count 172 MPV 12.2 H Immature Gran % (Auto) 0.2 Neut % (Auto) 64.4 Lymph % (Auto) 17.1 L [place] % (Auto) 8.7 H Eos % (Auto) 8.9 H Baso % (Auto) 0.7 Lymph # (Auto) 0.73 L [place] # (Auto) 0.4 Eos # (Auto) 0.4 H Baso # (Auto) 0.0 Abs Immat Gran (auto) 0.01 Absolute Neuts (auto) 2.7 Absolute Nucleated RBC 0.000 Nucleated RBC % 0.0 Sodium 134 L Potassium 4.2 Chloride 103 Carbon Dioxide 30 Anion Gap 1 L BUN 21 H Creatinine 0.63 L Estim Creat Clear Calc 82 Estimated GFR > 60 Glucose 111 H Calcium 8.3 L Magnesium 2.0 Preliminary micro results at discharge 01/21/25 01:29 Blood Culture - Preliminary Blood 01/21/25 01:18 Blood Culture - Preliminary Blood 01/21/25 10:01 Sputum Culture - Preliminary Sputum Discharge Plan Discharge Consulting providers: Patricia Tucker Discharging Clinician: German Tamez Patient Disposition: Home with Home Health Service Activity: no straining and no driving Diet: NPO and other - see discharge instructions Discharge Instructions: Per Care Coordination: Maria A [facility] ([phone]) will resume serv ices at discharge. RN please fax discharge paperwork to [phone] Tube Feeding: Compleat Peptide 1.5 79 mL/hr with 6 x 60 mL flushes per day Patient Instructions: Antibiotic Form Patient Language: Yoruba Stand Alone Forms: General Discharge Information Follow-up/Referrals: Larry Hinojosa [Other] - 1 Week Discharge Medications: New metronidazole 500 mg tablet 500 mg feeding tube Q8H Qty: 3 0RF Rx Instructions: 3 doses required on 01/25 ipratropium-albuterol 0.5 mg-3 mg(2.5 mg base)/3 mL Solution For Nebulization 3 ml inhalation Q6HRT Qty: 90 0RF sodium chloride 0.9 % Solution For Nebulization 3 ml inhalation TIDRT Qty: 90 0RF levofloxacin 250 mg/10 mL solution 750 mg feeding tube DAILY Qty: 30 0RF Rx Instructions: Requires one dose on 01/25 Continued finasteride [Proscar] 5 mg tablet 5 mg feeding tube HS ondansetron HCl 4 mg tablet 4 mg feeding tube Q4H PRN (Reason: nausea and [id number]) diazepam [Valium] 10 mg Tablet 20 mg feeding tube HS zolpidem 5 mg tablet 5 mg feeding tube HS Patient Comments: PATIENT STATES CAN TAKE 10 MG HS, IF NEEDED Discontinued albuterol sulfate 2.5 mg /3 mL (0.083 %) solution for nebulization 2.5 mg inhalation HS Date of admission: 01/21/25 07:05 Primary Care Provider: Larry Hinojosa Admitting Provider: Monica Johnston Attending physician on admission: Monica Johnston Condition: Improved
--- NOTE | 2025-01-24 16:53 | PC.NURSE ---
per dr amezcua, infuse flagyl iv dose now and D/C patient afterwards
== END 2025-01-24 18:44 | disposition home health service (06) | DRG 177 ==
LOC: ANHED 03:52 → ANH2MED 04:46
PROVIDERS: Internal Medicine; Admitting Provider General Practice; Emergency Provider Student in an Organized Health Care Education/Training Program; Visit Provider Internal Medicine
DX: J69.0 Pneumonitis due to inhalation of food and vomit (principal); E43 Unspecified severe protein-calorie malnutrition; L89.153 Pressure ulcer of sacral region, stage 3; J96.01 Acute respiratory failure with hypoxia; T17.500A Unspecified foreign body in bronchus causing asphyxiation, initial encounter; Z68.1 Body mass index [BMI] 19.9 or less, adult; J18.9 Pneumonia, unspecified organism; R13.19 Other dysphagia; T17.908A Unspecified foreign body in respiratory tract, part unspecified causing other injury, initial encounter; G54.0 Brachial plexus disorders; I10 Essential (primary) hypertension; K21.9 Gastro-esophageal reflux disease without esophagitis; E03.9 Hypothyroidism, unspecified; W19.XXXA Unspecified fall, initial encounter; Z93.1 Gastrostomy status; Q05.9 Spina bifida, unspecified; Z85.89 Personal history of malignant neoplasm of other organs and systems; Z85.828 Personal history of other malignant neoplasm of skin
CPT/HCPCS: 36415; 70450; 71045; 71275; 72125; 74177; 80048; 80053; 81001; 82550; 82803; 83605; 83690; 83735; 83880; 84145; 84439; 84443; 84480; 84484; 85025; 85610; 85652; 85730; 86140; 87040; 87070; 87186; 87205; 87449; 87637; 87899; 93005; 94640; 96365; 96366; 96367; 96375; 99285; A9270; G0378; J0456; J0696; J1644; J1836; J1885; J1956; J7030; J7040; J7050; Q9967